=== PATIENT | male | born 1935 | race Caucasian/White ===

== ENCOUNTER → 2018-02-10 14:22 | Outpatient (CLI) | payer MEDICARE, SELFPAY ==
[2018-02-10 17:21] LABS: Albumin, Serum 3.6 g/dL (3.2-5.0); BUN 19 mg/dL (7-18); Calcium,Total 9.2 mg/dL (8.5-10.1); Chloride 100 mmol/L (98-107); Creatinine, Serum 1.27 mg/dL (0.70-1.30); EST Glomerular Filtration Rate 58 mL/min (>60); Est Glom Filt Rate - Afr Amer 70 mL/min (>60); Glucose 89 mg/dL (74-106); Phosphorus 3.6 mg/dL (2.5-4.9); Potassium 4.7 mmol/L (3.5-5.1); Sodium Level 133 mmol/L (136-145)
== END ==
PROVIDERS: Family Provider Family Medicine Geriatric Medicine; PCP Family Medicine Geriatric Medicine; Visit Provider Internal Medicine Nephrology
DX: N18.3 Chronic kidney disease, stage 3 (moderate) (principal)
CPT/HCPCS: 36415; 80069

== ENCOUNTER → 2018-03-14 13:07 | Outpatient (CLI) | payer MEDICARE, SELFPAY ==
[2018-03-14 15:13] LABS: Albumin, Serum 3.5 g/dL (3.2-5.0); BUN 20 mg/dL (7-18); BUN/Creat Ratio 15.5 RATIO (10-20); Calcium,Total 8.8 mg/dL (8.5-10.1); Chloride 103 mmol/L (98-107); Creatinine, Serum 1.29 mg/dL (0.70-1.30); EST Glomerular Filtration Rate 57 mL/min (>60); Est Glom Filt Rate - Afr Amer 69 mL/min (>60); Glucose 90 mg/dL (74-106); Phosphorus 3.5 mg/dL (2.5-4.9); Potassium 4.2 mmol/L (3.5-5.1); Sodium Level 138 mmol/L (136-145)
== END ==
PROVIDERS: Family Provider Family Medicine Geriatric Medicine; PCP Family Medicine Geriatric Medicine; Visit Provider Internal Medicine Nephrology
DX: N18.3 Chronic kidney disease, stage 3 (moderate) (principal)
CPT/HCPCS: 36415; 80069

== ENCOUNTER → 2018-03-23 13:27 | Outpatient (CLI) | payer MEDICARE, SELFPAY ==
[2018-03-23 17:17] LABS: PTHIN 60.4 pg/mL (18.4-80.1)
== END ==
PROVIDERS: Family Provider Family Medicine Geriatric Medicine; PCP Family Medicine Geriatric Medicine; Visit Provider Internal Medicine Nephrology
DX: N17.9 Acute kidney failure, unspecified (principal)
CPT/HCPCS: 36415; 83970

== ENCOUNTER 2018-07-27 15:00 | Outpatient (RCR) | payer MEDICARE, SELFPAY ==
--- NOTE | 2018-07-05 11:26 | HP.OTEVAL_ITS ---
Patient's Visit Information MARY COLÓN SR is a 82 year old M, referred to Occupational Therapy by Fabby Moore, IMAN-C, with a diagnosis of primary osteoarthritis involving multiple joints-. Date of Evaluation: 06/30/18 Occupational Therapist: Rosenda Robertson, PATT/Mary Kate, CHT - Subjective Subjective: This 82 year old male was seen for initial OT eval with Dx of primary osteoarthritis involving multiple joints - pt states his hands do become stiff and sore and it makes it difficlut to straighten his MF on both hands. Pt would like to know what he can do to improve his hand function for ADLs and IADLs. - ADLs Dressing: Pants, Shoes, Necklace Fasteners: Tie shoes, Zippers, Snaps, Catron Eating: Use silverware Miscellaneous: Hold change, Take things out of wallet, Shuffle cards, Use hand tools Comments: put hands in pocket - Pain right MF 0 Pain Intensity Range: 5 Left MF 0 Pain Intensity Range: 0 - ROM MP: right MF PIP: right MF -25/90 left -30/85 DIP: right MF 0/40 left 0/65 - Strength Glass Presser: right 30# left 32# Lateral Pinch: right 12# left 14# Tripod Pinch: right 12# left 10# - Sensation Sensation Comments: denies - Hand/Wrist Evaluation Total Score of Pain & Functional Sections: 41 - Goals Goal:: pt will demo a incrase in PIP ext of bilateral MF by 15 degrees to increase pts ind placing hands in pockets or donning gloves by d/c Goal:: pain no greater than 1/10 with use of bilateral hands for ADLS. Goal:: pt will demo understanding of joint protection and ad. eq. for ADLS and IADLS - Rehabilitation General Assessment: pt demo with limited bilateral MF PIP ext- this is preventing pt from donning gloves and Ind. use with IADLs and home mtg tasks. Pt would benefit from skilled OT services 2x week for 4 weeks to challenge pts ROM and return pt to PLOF. Therapist will expore orthosis use, modalities, AROM, PROM and PRE as well as ed. pt on ad. eq. and joint protection. Pt demo understanding and agrees to POC. Rehabilitation Potential: Good - Anticipated Interventions Anticipated Interventions: Strengthening, Triggerpoint Release, Modalities, Orthoses, Joint Protection/Energy Conservation, Ergonomic Education - Visit Plan Frequency: 1x/Week Duration: 3 Weeks TEXT: Thank you for the opportunity to evaluate your patient. For Medicare and Medicare HMO plans, please review the plan of care and approve it. It will need to be FAXED BACK to us at [phone] for Medicare purposes. Please let me know if there are questions or concerns regarding this plan of care. Physician Signature: Date:
--- NOTE | 2018-07-27 15:16 | HP.OTDCSUM ---
HP - OT D/C Summary It has been my pleasure to treat MARY COLÓN SR under orders from Fabby Moore, IMAN-C, for the diagnosis of primary osteoarthritis involving multiple joints- for a total of 3 visit(s). Please see the following information for a summary of their discharge status. - Objective Objective/Function: pt demo a reduction in PIP ext lag to -20 from -25, pt gained 5*. left PIP -15, inital was -30* pt made gains- - Goals Patient Goals: Regain Mobility, Decrease Pain, Decrease Swelling/Stiffness, Increase ROM Goal:: pt will demo a incrase in PIP ext of bilateral MF by 15 degrees to increase pts ind placing hands in pockets or donning gloves by d/c Goal:: pain no greater than 1/10 with use of bilateral hands for ADLS. Goal:: pt will demo understanding of joint protection and ad. eq. for ADLS and IADLS - Plan Plan: D/C with HEP - D/C Information Discharge Comments: pt demo small gains in ROM, but states better use of his hands for ADLs and IADLs. pt ed. to ont with use of orthosis to prevent further ext. lag. pt demo understanding of HEP and stretches. pt d/c at this time with HEP. If there are questions or concerns regarding this patient's occupational therapy, please fell free to call me at [phone]. Thank you for the referral of this patient. Sincerely, Rosenda Robertson, OTR/L, CHT
== END 2018-07-27 19:00 | disposition home or self-care (01) ==
LOC: OT 15:00
PROVIDERS: Family Provider Family Medicine; PCP Family Medicine; Referring Provider Nurse Practitioner Primary Care; Visit Provider Nurse Practitioner Primary Care
DX: M15.0 Primary generalized (osteo)arthritis (principal)
CPT/HCPCS: 97140; 97166; 97530; 97760

== ENCOUNTER → 2022-01-23 | Outpatient (CLI) | payer MEDICARE, SELFPAY ==
[2022-01-23 15:05] LABS: Hematocrit 35.5 % (40-54); Hemoglobin 11.9 g/dL (13.0-16.5); Mean Corp Hgb Conc 33.5 g/dL (32-36); Mean Corpuscular Hgb 34.8 pg (27.0-32.0); Mean Corpuscular Volume 103.8 fL (80-94); Mean Platelet Vol. 10.9 fl (6.2-12.0); Platelet Count 268 K/mm3 (150-450); RBC Distribution Width CV 13.5 % (11.6-14.6); Red Blood Count 3.42 M/mm3 (4.6-6.2); White Blood Count 5.9 K/mm3 (4.4-11.0)
== END | disposition home or self-care (01) ==
LOC: BIMLAB 13:15
PROVIDERS: PCP Family Medicine; Referring Provider Nurse Practitioner Primary Care; Visit Provider Nurse Practitioner Primary Care
DX: D64.9 Anemia, unspecified (principal)
CPT/HCPCS: 36415; 85027

== ENCOUNTER 2022-02-02 15:04 | Emergency (ER) | payer MEDICARE, SELFPAY ==
[2022-02-02 15:05] VITALS: BP 118/60; PULSE 60; RESP 14; TEMP 36; O2SAT 98; BMI 27.3
[2022-02-02 15:44] VITALS: TEMP 36.8; O2SAT 98
--- NOTE | 2022-02-02 15:58 | RAD_ITS ---
STUDY: X-RAY - RIGHT SHOULDER REASON FOR EXAM: Male, 86 years old. Trauma TECHNIQUE: 2 view(s) of the shoulder. COMPARISON: None. FINDINGS: Normal glenohumeral articulation. Normal acromioclavicular joint. Normal acromion. Acute nondisplaced oblique fracture of the distal right clavicle just proximal to the chronic medical joint. Normal humeral head and visualized proximal humerus. The soft tissue structures are unremarkable. Normal visualized pulmonary apex. RAD/Shoulder min 2 Views IMPRESSION: Acute nondisplaced oblique fracture of the distal right clavicle just proximal to the acromioclavicular joint. Electronically Signed: Osvaldo Kern MD at 16:45 EDT ,
--- NOTE | 2022-02-02 16:00 | EDS_ITS ---
HPI History of Present Illness Chief Complaint: Fall Narrative Narrative: 86-year-old male presents status post fall with injury to his right shoulder/clavicle. He is right-hand dominant. He states that he was measuring stairs to build a ramp for his 's wheelchair, and he stepped and tripped and fell onto concrete onto his right shoulder. He denies hitting his head or loss of consciousness. He sustained an abrasion to the lateral aspect of his right knee. He was able to get up and ambulate afterwards. He is unsure of his last tetanus immunization. His main concern is that he has pain in his right shoulder and clavicular area that is worse with movement. He denies other injury. [facility] Medical History BPH (benign prostatic hyperplasia) GERD (gastroesophageal reflux disease) Hypertension Restless legs syndrome Home Medications calcium carbonate 600 mg-vitamin D3 10 mcg (400 unit) tablet 1 ea PO DAILY 07/02/15 [History Last Taken Unknown] gabapentin 300 mg capsule 900 mg PO QHS 07/02/15 [History Last Taken Unknown] lisinopril 40 mg tablet 40 mg PO DAILY 07/02/15 [History Last Taken 07/08/15 05:00] multivitamin 1 ea PO DAILY 07/02/15 [History Last Taken Unknown] omeprazole 20 mg capsule,delayed release 20 mg PO BID 07/02/15 [History Last Taken 07/08/15 05:00] finasteride 5 mg tablet 5 mg PO QDAY 05/17/17 [History Last Taken Unknown] hydroxyzine HCl 50 mg tablet 50 mg PO ONCE 05/17/17 [History Last Taken Unknown] naproxen 500 mg tablet 500 mg PO Q12H 05/17/17 [History Last Taken Unknown] terazosin 2 mg capsule 5 mg PO QHS 05/17/17 [History Last Taken Unknown] Allergy/AdvReac Type Severity Reaction Status Date / Time Penicillins Allergy Rash Verified 02/02/22 16:55 Family History Mother Cirrhosis of liver Surgical History H/O hernia repair Hx of cholecystectomy S/P right rotator cuff repair Unspecified nasal polyp Social History Smoking Status: Never smoker how long ago did patient quit smokin years ago ROS ROS ED ROS Narrative Constitutional: No fever, no chills. HEENT: No sore throat. No neck pain. No loss of vision. No rhinorrhea. Cardiovascular: No chest pain. No palpitations. No pedal edema. Respiratory: No cough, no shortness of breath. Abdominal: No abdominal pain. No nausea. No vomiting. Genitourinary: No dysuria. No hematuria. Musculoskeletal: No myalgias. Right shoulder and clavicle pain. Worse with movement. Neurologic: No headaches. No dizziness. No lightheadedness. Skin: No rash. No change in color. Psychiatric: No depression. No anxiety. EXAM Physical Exam Narrative Exam Narrative: Afebrile. Vital signs noted. HEENT: Normocephalic. Atraumatic. PERRL, EOMI. Neck soft and supple. No point tenderness or step off. Cardiovascular: Regular rate and rhythm. No murmurs, rubs, or gallops appreciated. Respiratory: No tachypnea. Lungs clear to auscultation bilaterally. Gastrointestinal: Abdomen soft, nontender, with normoactive bowel sounds. No rebound or guarding. Neurological: Awake. Alert. Nonfocal, nonlateralizing. Skin: No rash. Normal color. No pallor. Positive abrasion right lateral knee. No bony tenderness, flexion extension mechanism of right knee intact. Musculoskeletal: No pedal edema. Right upper extremity in sling. Diffuse tenderness to palpation as right shoulder/proximal humerus and right distal clavicle. No crepitance. Neurovascularly intact distally. No tenderness at elbow and below. Palpable radial pulse. Const Vital Signs: 02/02/22 15:05 02/02/22 15:44 Temperature 96.8 F L 98.2 F Temperature Source Temporal Pulse Rate 60 Respiratory Rate 14 Respiratory Effort Normal Non-Labored Respiratory Depth Normal Respiratory Pattern Normal Blood Pressure 118/60 Blood Pressure Mean 79 Pulse Ox 98 98 Oxygen Delivery Method Room Air Room Air MDM MDM MDM Narrative Medical decision making narrative: Patient administered a [place] tablet for analgesia. X-rays were obtained of the right clavicle and right shoulder. He was given a Boostrix tetanus diphtheria update. His abrasion was cleansed and dressed. X-rays of the clavicle and shoulder interpreted by myself show no evidence of humeral fracture but there is a distal clavicular fracture with minimal displacement near the acromion. He will be given a new sling and swath and referred to orthopedics on-call, Dr. Horace Ling. He states he preferred to take Tylenol [id number] for analgesia. I feel he can be discharged safely home with follow-up. Return instructions were reviewed. Disposition is discharged home in stable condition. Discharge Plan Triage Chief Complaint: Fall ED Provider: Bradley Uriarte Dx/Rx/DC Orders Clinical Impression: Fall, Fx clavicle, acrom end-closed Instructions: ED Fracture, Clavicle, ED Fall Prevention Prescriptions: No Action hydroxyzine HCl 50 mg tablet 50 mg PO ONCE naproxen 500 mg tablet 500 mg PO Q12H finasteride 5 mg tablet 5 mg PO QDAY multivitamin 1 EACH tablet 1 ea PO DAILY gabapentin 300 MG capsule 900 mg PO QHS omeprazole 20 MG capsule 20 mg PO BID lisinopril 40 MG tablet 40 mg PO DAILY calcium carbonate-vitamin D3 1 EACH tablet 1 ea PO DAILY terazosin 2 MG capsule 5 mg PO QHS Primary Care Provider: Jaime Johnson Referrals: Jaime Johnson MD [Primary Care Provider] - Priyank Ling DO [Med Staff - Active Staff] - 1 Week Activity Restrictions/Additional Instructions: Take Tylenol as needed for pain. Keep arm in sling until cleared by orthopedics. Disposition Disposition: Home, Self Care
[2022-02-02] MEDS: HYDROcodone Bitartrate/Apap 5/325 Tablet PO (16:17)
[2022-02-02] MEDS: Diphth,Pertuss(Acell),Tet Vac 0.5 ML Vial IM (16:18)
--- NOTE | 2022-02-02 16:23 | RAD_ITS ---
STUDY: X-RAY - RIGHT CLAVICLE REASON FOR EXAM: Male, 86 years old. trauma TECHNIQUE: 2 view(s) of the clavicle. COMPARISON: None. FINDINGS: Acute slightly displaced oblique fracture of the distal right clavicle just proximal to the acromial navicular joint. Normal acromioclavicular articulation. Normal visualized sternoclavicular articulation. Normal visualized pulmonary apex. RAD/Clavicle IMPRESSION: Acute slightly displaced fracture of the distal right clavicle just proximal to the acromioclavicular joint. Electronically Signed: Osvaldo Kern MD at 16:44 EDT ,
[2022-02-02 17:48] VITALS: BP 154/64; PULSE 57; RESP 16; TEMP 36.4; O2SAT 99
== END 2022-02-02 18:58 | disposition home or self-care (01) ==
PROVIDERS: Emergency Provider Emergency Medicine; PCP Family Medicine; Visit Provider Emergency Medicine
DX: S42.034A Nondisplaced fracture of lateral end of right clavicle, initial encounter for closed fracture (principal); I10 Essential (primary) hypertension; S80.211A Abrasion, right knee, initial encounter; Z79.899 Other long term (current) drug therapy; Z23 Encounter for immunization; W17.89XA Other fall from one level to another, initial encounter
CPT/HCPCS: 73000; 73030; 90715; 99283

== ENCOUNTER → 2022-07-10 | Outpatient (CLI) | payer MEDICARE, SELFPAY ==
[2022-07-10 17:44] LABS: Absolute Lymphocyte Count 1.93 X10^3/uL (0.83-4.51); Absolute Neutrophil Count 4.5 X10^3/uL (2.0-7.7); Basophil# 0.04 X10^3/uL; Basophil% 0.5 % (0-1); Eosinophil# 0.45 X10^3/uL; Eosinophils% 6.1 % (0-5); Hematocrit 35.9 % (40-54); Hemoglobin 11.8 g/dL (13.0-16.5); Lymphocyte # 1.93 X10^3/ul (0.83-4.51); Mean Corp Hgb Conc 32.9 g/dL (32-36); Mean Corpuscular Hgb 33.1 pg (27.0-32.0); Mean Corpuscular Volume 100.6 fL (80-94); Mean Platelet Vol. 10.4 fl (6.2-12.0); Monocyte# 0.55 X10^3/uL; Monocyte% 7.4 % (0-10); NRBC Flagged by Analyzer 0 % (0-5); Neutrophil # 4.45 X10^3/uL (2.7-7.7); Neutrophil % 59.9 % (47-70); Platelet Count 217 K/mm3 (150-450); RBC Distribution Width CV 14.5 % (11.6-14.6); RBC Distribution Width SD 54.2 fl (35.1-43.9); Red Blood Count 3.57 M/mm3 (4.6-6.2); White Blood Count 7.4 K/mm3 (4.4-11.0)
[2022-07-10 17:59] LABS: International Normalized Ratio 1.1
[2022-07-10 18:00] LABS: Partial Thromboplast Time 33.1 Seconds (24.1-36.2)
[2022-07-10 18:14] LABS: ALB/GLOB Ratio 0.8 RATIO (0.9-2.4); AST(SGOT) 30 U/L (15-37); Alanine Aminotransfer ALT/SGPT 55 U/L (16-61); Albumin, Serum 3.5 g/dL (3.2-5.0); Alkaline Phosphatase 144 U/L (45-117); Anion Gap 8 (5-15); BUN 50 mg/dL (7-18); BUN/Creat Ratio 32.1 RATIO (10-20); Chloride 102 mmol/L (98-107); Creatinine, Serum 1.56 mg/dL (0.70-1.30); EST Glomerular Filtration Rate 45 mL/min (>60); Est Glom Filt Rate - Afr Amer 55 mL/min (>60); Globulin 4.5 g/dL (2.2-4.2); Glucose 88 mg/dL (74-106); Potassium 4.4 mmol/L (3.5-5.1); Sodium Level 135 mmol/L (136-145)
== END | disposition home or self-care (01) ==
LOC: MTLAB 15:00
PROVIDERS: PCP Family Medicine; Referring Provider Dermatology Pediatric Dermatology; Visit Provider Dermatology Pediatric Dermatology
DX: D69.2 Other nonthrombocytopenic purpura (principal)
CPT/HCPCS: 36415; 80053; 85025; 85610; 85730

== ENCOUNTER 2022-12-24 13:27 | Emergency (ER) | payer OTHER, MEDICARE, SELFPAY ==
[2022-12-24 13:28] VITALS: BP 114/69; PULSE 101; RESP 18; TEMP 36.7; O2SAT 97
--- NOTE | 2022-12-24 13:50 | CT_ITS ---
INDICATION: Chest and rib pain after fall EXAMINATION: CT CHEST WITHOUT CONTRAST - CT Chest W/O Contrast Injection TECHNIQUE: Helically acquired images were obtained of the chest. A radiation dose optimization technique was used for this scan. IV Contrast dosage and agent: None. COMPARISON: None. FINDINGS: LUNGS, PLEURA AND LARGE AIRWAYS: Lung windows show chronic interstitial changes in both lung malave with dependent atelectasis. There is no organized infiltrate, effusion, or suspicious noncalcified mass or nodule. No pneumothorax. THYROID: No thyroid lesions. HEART AND PERICARDIUM: Heart size is normal. No pericardial effusion. CORONARY ARTERIES: Coronary artery calcification is seen. VESSELS: Thoracic aorta is not dilated. MEDIASTINUM AND ZHANG: No suspicious mediastinal or hilar adenopathy. Esophagus is unremarkable. No hiatal hernia. UPPER ABDOMEN: No acute pathology. BONES: No suspicious lytic or blastic abnormality. Bony structures show degenerative change. No demonstrated rib fracture, pleural thickening or pneumothorax CT/Chest without Contrast IMPRESSION: Chronic interstitial changes, no superimposed acute pulmonary process, no CT evidence of acute traumatic abnormality Electronically Signed: Chemo Monge MD at 14:53 EDT ,
--- NOTE | 2022-12-24 13:50 | CT_ITS ---
STUDY: CT BRAIN WITHOUT CONTRAST REASON FOR EXAM: Male, 87 years old. Severe headache RADIATION DOSAGE (If Supplied By Facility): CTDIvol = ( 47.06 ) mGy, DLP = ( 837.39 ) mGycm TECHNIQUE: Transaxial CT imaging of the brain was performed without administration of intravenous contrast material. Individualized dose optimization techniques were used for this CT. COMPARISON: No relevant priors. FINDINGS: CT evidence of hyperdense acute parenchymal hemorrhage within the left thalamus seen on axial image 17 and coronal recon 48. There is no associated edema or mass effect. Normal soft tissue structures. Normal calvarium. There is mild cerebral atrophy with widening of the extra-axial spaces and ventricular dilatation. There are areas of decreased attenuation within the white matter tracts of the supratentorial brain, consistent with microvascular disease changes. Normal basal ganglia and thalami. Normal brainstem. There is mild cerebellar atrophy. Incidental note is made of a cavum septum pellucidum. There is no intracranial hemorrhage. There are no findings of an acute ischemic infarction. Normal visualized paranasal sinuses. CT/Brain/Head without Contrast IMPRESSION: Acute parenchymal hemorrhage in the left thalamus without mass effect or midline shift. Age consistent senescent changes elsewhere. Normal ventricles and cisterns for patient''s age. N.B. : The above Results were Read Back by Chemo Monge MD to BEATRIS Almendarez, and understanding confirmed on 12/24/2022 14:46:03 (ET). Electronically Signed: Chemo Monge MD at 14:47 EDT ,
--- NOTE | 2022-12-24 13:50 | CT_ITS ---
STUDY: CT CERVICAL SPINE WITHOUT CONTRAST REASON FOR EXAM: Male, 87 years old. Headache and neck pain RADIATION DOSAGE (If Supplied By Facility): CTDIvol = ( 17.75 ) mGy, DLP = ( 339.77 ) mGycm TECHNIQUE: High resolution transaxial imaging was performed without contrast material. Sagittal and coronal images were reconstructed. Individualized dose optimization techniques were used for this CT. COMPARISON: None FINDINGS: Normal craniovertebral junction. There are degenerative changes of the anterior atlantoaxial articulation. Normal odontoid process. There is straightening of the normal cervical lordosis. Bones are diffusely demineralized. C2-3: Normal endplates. Disc space narrowing without central canal stenosis or foraminal narrowing. C3-4: Normal endplates. Disc space narrowing without central canal stenosis, bilateral foraminal narrowing due to facet joint hypertrophy. C4-5: Sclerotic endplate changes with broad-based central subligamentous disc bulge and uncovertebral spurs. No central canal stenosis, bilateral foraminal narrowing due to spur formation and facet joint hypertrophy. C5-6: Sclerotic endplate changes with prominent uncovertebral spurs. No central canal stenosis, bilateral foraminal narrowing due to spur formation and facet joint hypertrophy. C6-7: Normal endplates. Disc space narrowing with broad-based central disc bulge. No central canal stenosis, bilateral foraminal narrowing due to facet joint hypertrophy. C7-T1: Sclerotic endplate changes. Disc space narrowing with posterior uncovertebral spurs. No central canal stenosis, bilateral foraminal narrowing due to facet joint hypertrophy. Soft tissues show dense calcifications in the carotid artery bulbs. Thyroid gland is unremarkable lung apices are clear. CT/Spine Cervical without Contras IMPRESSION: Multilevel degenerative changes, as described above. No acute abnormalities Electronically Signed: Chemo Monge MD at 14:50 EDT ,
--- NOTE | 2022-12-24 13:51 | EX.ED.DYSGE1 ---
HPI <BEATRIS Almendarez - Last Filed: 12/24/22 15:24> History of Present Illness Chief Complaint: Fall Narrative Narrative: 87-year-old male states he felt nauseated yesterday and walked into the bathroom and was leaning down to the toilet bowl when he lost his balance and fell. He struck his head and chest against the commode. Denies LOC. No blood thinners. He states the nausea passed and he didn't actually vomit. Since then he has had pain in his midsternal and left rib cage. No difficulty breathing. No nausea or vomiting today. He denies any prodromal chest pain or shortness of breath. PFSH <BEATRIS Almendarez - Last Filed: 12/24/22 15:24> [facility] Medical History BPH (benign prostatic hyperplasia) GERD (gastroesophageal reflux disease) Hypertension Restless legs syndrome Home Medications calcium carbonate 600 mg-vitamin D3 10 mcg (400 unit) tablet 1 ea PO DAILY 07/02/15 [History Last Taken Unknown] gabapentin 300 mg capsule 900 mg PO QHS 07/02/15 [History Last Taken Unknown] lisinopril 40 mg tablet 40 mg PO DAILY 07/02/15 [History Last Taken 07/08/15 05:00] multivitamin 1 ea PO DAILY 07/02/15 [History Last Taken Unknown] omeprazole 20 mg capsule,delayed release 20 mg PO BID 07/02/15 [History Last Taken 07/08/15 05:00] finasteride 5 mg tablet 5 mg PO QDAY 05/17/17 [History Last Taken Unknown] hydroxyzine HCl 50 mg tablet 50 mg PO ONCE 05/17/17 [History Last Taken Unknown] naproxen 500 mg tablet 500 mg PO Q12H 05/17/17 [History Last Taken Unknown] terazosin 2 mg capsule 5 mg PO QHS 05/17/17 [History Last Taken Unknown] Allergy/AdvReac Type Severity Reaction Status Date / Time Penicillins Allergy Rash Verified 12/24/22 13:28 Family History Mother Cirrhosis of liver Surgical History H/O hernia repair Hx of cholecystectomy S/P right rotator cuff repair Unspecified nasal polyp Social History Smoking Status: Never smoker how long ago did patient quit smokin years ago ROS <BEATRIS Almendarez - Last Filed: 12/24/22 15:24> ROS ED ROS Narrative Constitutional: Negative for fever, chills, malaise. CVS: Negative for palpitations, chest pain, syncope. Respiratory: Negative for shortness of breath, cough. GI: Negative for abdominal pain, vomiting. Neuro: Negative for headache, motor/sensory dysfunction. Skin: Negative for wound. Musc: Negative for joint pain, swelling, trauma. EXAM <BEATRIS Almendarez - Last Filed: 12/24/22 15:24> Physical Exam Narrative Exam Narrative: CONST: Patient sitting in no acute distress. EYES: Normal inspection. PERRLA, EOMI. Head: Head normocephalic atraumatic, no raccoon eyes or garcia sign, no nasal septal hematoma, no CSF otorrhea or rhinorrhea. NECK: Normal inspection. No midline spinal tenderness, no step off or crepitus. RESP: No respiratory distress, CTAB. Bruising and tenderness over upper sternal area, also tender over left upper anterior ribs in the pectoralis region with no deformity or crepitus. CVS: Regular rate and rhythm, no murmur, no gallop. ABD: Soft and nontender, no guarding or rebound, nondistended, no hepatosplenomegaly. SKIN: Color normal, no rash, warm, dry, intact. EXTREMITIES: Normal appearance, no tenderness, 2+ radial and PT pulses. NEURO: Oriented x4. PSYCH: Normal affect. Const Vital Signs: 12/24/22 13:28 Temperature 98.0 F Temperature Source Temporal Pulse Rate 101 H Respiratory Rate 18 Blood Pressure 114/69 Blood Pressure Mean 84 Pulse Ox 97 Oxygen Delivery Method Room Air <Dr. Jt Ramsay DO - Last Filed: 12/24/22 15:52> Physical Exam Const Vital Signs: 12/24/22 13:28 Temperature 98.0 F Temperature Source Temporal Pulse Rate 101 H Respiratory Rate 18 Blood Pressure 114/69 Blood Pressure Mean 84 Pulse Ox 97 Oxygen Delivery Method Room Air MDM <BEATRIS Almendarez - Last Filed: 12/24/22 15:24> MDM MDM Narrative Medical decision making narrative: History gathered from: Patient and his daughter Patient had a mechanical fall yesterday striking his head and chest on the toilet. No LOC and no blood thinners. He is awake and alert with stable vital signs. He has small amount of bruising on his forehead. Also a small bruise along his right jaw but he states this is from a recent tooth extraction. He has no facial bone tenderness or deformity. Able to fully open and close his jaw. No signs of basilar skull fracture. No spinal tenderness. He is tender over the anterior chest wall with bruising. Normal heart and lung sounds. Exam otherwise negative. With head injury and significant rib tenderness I ordered CTs of the brain, C-spine, and chest. CT scan of the brain shows left thalamic parenchymal hemorrhage without mass effect or midline shift. Cervical spine and chest scans negative for traumatic injuries. Patient is neurologically intact but requires transfer to [facility] for evaluation. Case was discussed and patient accepted by ED physician Dr. Jose Handy. Differential: Closed head injury, skull fracture, intracranial bleed, chest wall contusion versus rib fracture 35 minutes of critical care time and evaluation and treatment of patient, discussion and planning, discussion with consultants Radiography Diagnostic Testing: Clinical Impression(s) from Imaging Studies Brain CT 12/24/22 13:50 IMPRESSION: Acute parenchymal hemorrhage in the left thalamus without mass effect or midline shift. Age consistent senescent changes elsewhere. Normal ventricles and cisterns for patient''s age. N.B. : The above Results were Read Back by Chemo Monge MD to BEATRIS Almendarez, and understanding confirmed on 12/24/2022 14:46:03 (ET). Electronically Signed: Chemo Monge MD at 14:47 EDT , ADDENDUM: 12/24/22 1454 IMPRESSION: Acute parenchymal hemorrhage in the left thalamus without mass effect or midline shift. Age consistent senescent changes elsewhere. Normal ventricles and cisterns for patient''s age. N.B. : The above Results were Read Back by Chemo Monge MD to BEATRIS Almendarez, and understanding confirmed on 12/24/2022 14:46:03 (ET). Electronically Signed: Chemo Monge MD at 14:47 EDT , Cervical Spine CT 12/24/22 13:50 IMPRESSION: Multilevel degenerative changes, as described above. No acute abnormalities Electronically Signed: Chemo Monge MD at 14:50 EDT , Chest CT 12/24/22 13:50 IMPRESSION: Chronic interstitial changes, no superimposed acute pulmonary process, no CT evidence of acute traumatic abnormality Electronically Signed: Chemo Monge MD at 14:53 EDT , EKG Initial EKG: Attestation: I personally reviewed and interpreted this EKG as follows: Comments: ED attending interpretation is sinus rhythm with sinus arrhythmia with first-degree AV block, no ischemic changes, 74 bpm <Dr. Jt Ramsay, DO - Last Filed: 12/24/22 15:52> [facility] MDM Narrative Medical decision making narrative: History gathered from: Patient and his daughter Patient had a mechanical fall yesterday striking his head and chest on the toilet. No LOC and no blood thinners. He is awake and alert with stable vital signs. He has small amount of bruising on his forehead. Also a small bruise along his right jaw but he states this is from a recent tooth extraction. He has no facial bone tenderness or deformity. Able to fully open and close his jaw. No signs of basilar skull fracture. No spinal tenderness. He is tender over the anterior chest wall with bruising. Normal heart and lung sounds. Exam otherwise negative. With head injury and significant rib tenderness I ordered CTs of the brain, C-spine, and chest. CT scan of the brain shows left thalamic parenchymal hemorrhage without mass effect or midline shift. Cervical spine and chest scans negative for traumatic injuries. Patient is neurologically intact but requires transfer to [facility] for evaluation. Case was discussed and patient accepted by ED physician Dr. Jose Handy. Differential: Closed head injury, skull fracture, intracranial bleed, chest wall contusion versus rib fracture 35 minutes of critical care time and evaluation and treatment of patient, discussion and planning, discussion with consultants Attending note: Patient seen and evaluated with b operator. I perform my own [id number] evaluation. I agree with the plan of work-up. Mechanical fall yesterday when bending over the commode. He bumped his chest and hit his head on the commode he did not lose any consciousness. He is not on any blood thinners. Denies any nausea or vomiting. States primary pain is in his chest region. Exam GCS 15 there is scattered contusions at the forehead and face, scalp contusion across the upper sternum with tenderness at the sternum. Full range of motion all 4 extremities. No back spine tenderness. EKG obtained sinus arrhythmia. Trauma scans head neck and chest obtained, reviewed and per radiology parenchymal bleed left thalamus region. No subdural or subarachnoid hemorrhage. Blood pressure stable. Patient updated on the findings, due to the intracranial hemorrhage, discussed transfer. Discussed with [facility] ED physician Dr. Handy who accepted the transfer. Laboratory studies were obtained. Radiography Diagnostic Testing: Clinical Impression(s) from Imaging Studies Brain CT 12/24/22 13:50 IMPRESSION: Acute parenchymal hemorrhage in the left thalamus without mass effect or midline shift. Age consistent senescent changes elsewhere. Normal ventricles and cisterns for patient''s age. N.B. : The above Results were Read Back by Chemo Monge MD to BEATRIS Almendarez, and understanding confirmed on 12/24/2022 14:46:03 (ET). Electronically Signed: Chemo Monge MD at 14:47 EDT , ADDENDUM: 12/24/22 1454 IMPRESSION: Acute parenchymal hemorrhage in the left thalamus without mass effect or midline shift. Age consistent senescent changes elsewhere. Normal ventricles and cisterns for patient''s age. N.B. : The above Results were Read Back by Chemo Monge MD to BEATRIS Almendarez, and understanding confirmed on 12/24/2022 14:46:03 (ET). Electronically Signed: Chemo Monge MD at 14:47 EDT , Cervical Spine CT 12/24/22 13:50 IMPRESSION: Multilevel degenerative changes, as described above. No acute abnormalities Electronically Signed: Chemo Monge MD at 14:50 EDT , Chest CT 12/24/22 13:50 IMPRESSION: Chronic interstitial changes, no superimposed acute pulmonary process, no CT evidence of acute traumatic abnormality Electronically Signed: Chemo Monge MD at 14:53 EDT , <Dr. Jt Ramsay, DO - Last Filed: 12/24/22 15:52> Critical Care Time Critical Care Time: Yes Critical care time (excluding procedures): 30-74 minutes, Discussing w/Patient &/or Family/Dairy Technician, Discussing w/Consultants, Arranging Admission or Transfer, Performing Direct Patient Care at Bedside and - (35 minutes) Discharge Plan Triage Chief Complaint: Fall ED Midlevel Provider: Jaja Agrawal ED Provider: Jt Ramsay Dx/Rx/DC Orders Clinical Impression: Chest wall contusion, Intracranial hemorrhage, Fall Prescriptions: No Action hydroxyzine HCl 50 mg tablet 50 mg PO ONCE naproxen 500 mg tablet 500 mg PO Q12H finasteride 5 mg tablet 5 mg PO QDAY multivitamin 1 EACH tablet 1 ea PO DAILY gabapentin 300 MG capsule 900 mg PO QHS omeprazole 20 MG capsule 20 mg PO BID lisinopril 40 MG tablet 40 mg PO DAILY calcium carbonate-vitamin D3 1 EACH tablet 1 ea PO DAILY terazosin 2 MG capsule 5 mg PO QHS Primary Care Provider: Jaime Johnson Referrals: aJime Johnson MD [Primary Care Provider] - Disposition Disposition: DC/Tx to Another Type of HCF
[2022-12-24 14:08] VITALS: BMI 26.6
[2022-12-24] MEDS: Acetaminophen 500 MG Tablet 1000 MG PO (14:33)
[2022-12-24] MEDS: Lidocaine 5% Patch 1 PATCH TOPICAL (14:34)
--- NOTE | 2022-12-24 15:08 | NURSING ---
CALLED [facility]UDY RODRIGUEZ FOR TRANSFER.
[2022-12-24 15:49] VITALS: PULSE 104; RESP 20; O2SAT 97
[2022-12-24 16:01] LABS: Absolute Lymphocyte Count 1.51 X10^3/uL (0.83-4.51); Absolute Neutrophil Count 5.9 X10^3/uL (2.0-7.7); Basophil# 0.05 X10^3/uL; Basophil% 0.6 % (0-1); Eosinophil# 0.11 X10^3/uL; Eosinophils% 1.3 % (0-5); Hematocrit 34.9 % (40-54); Hemoglobin 11.1 g/dL (13.0-16.5); Lymphocyte # 1.51 X10^3/ul (0.83-4.51); Lymphocyte % 18.3 % (19-41); Mean Corp Hgb Conc 31.8 g/dL (32-36); Mean Corpuscular Hgb 32.6 pg (27.0-32.0); Mean Corpuscular Volume 102.6 fL (80-94); Mean Platelet Vol. 9.3 fl (6.2-12.0); Monocyte# 0.66 X10^3/uL; NRBC Flagged by Analyzer 0 % (0-5); Neutrophil # 5.92 X10^3/uL (2.7-7.7); Neutrophil % 71.6 % (47-70); Platelet Count 258 K/mm3 (150-450); RBC Distribution Width CV 13.9 % (11.6-14.6); RBC Distribution Width SD 52.7 fl (35.1-43.9); White Blood Count 8.3 K/mm3 (4.4-11.0)
--- NOTE | 2022-12-24 16:02 | ED.RN ---
Attempted to call report.
[2022-12-24 16:11] LABS: Prothrombin Time (Protime)PT. 13.6 SECONDS (11.7-14.9)
[2022-12-24 16:18] LABS: Anion Gap 8 (5-15); BUN 27 mg/dL (7-18); BUN/Creat Ratio 19.9 RATIO (10-20); Calcium,Total 8.9 mg/dL (8.5-10.1); Chloride 103 mmol/L (98-107); Creatinine, Serum 1.36 mg/dL (0.70-1.30); EST Glomerular Filtration Rate 53 mL/min (>60); Est Glom Filt Rate - Afr Amer 64 mL/min (>60); Estimated Creatinine Clearance 38.42 ml/min; Glucose 100 mg/dL (74-106); Potassium 4.2 mmol/L (3.5-5.1); Sodium Level 134 mmol/L (136-145)
== END 2022-12-24 16:04 | disposition short-term general hospital (02) ==
PROVIDERS: Physician Assistant; Emergency Provider Emergency Medicine; PCP Family Medicine; Visit Provider Emergency Medicine
DX: S06.360A Traumatic hemorrhage of cerebrum, unspecified, without loss of consciousness, initial encounter (principal); S20.212A Contusion of left front wall of thorax, initial encounter; W01.198A Fall on same level from slipping, tripping and stumbling with subsequent striking against other object, initial encounter; I10 Essential (primary) hypertension; Z79.899 Other long term (current) drug therapy; Z87.891 Personal history of nicotine dependence
CPT/HCPCS: 70450; 71250; 72125; 80048; 85025; 85610; 93005; 99284; A4216

== ENCOUNTER 2022-12-28 21:59 | Observation (INO) | payer MEDICARE, SELFPAY ==
[2022-12-28] VITALS (10 sets, daily range): BP systolic 87–125; BP diastolic 52–78; PULSE 62–124; RESP 16–28; TEMP 35.9–36.4; O2SAT 94–97; BMI 25.2
--- NOTE | 2022-12-28 22:15 | EKG12_ITS ---
Test Reason : DYSRHYTHMIA Blood Pressure : / mmHG Vent. Rate : 093 BPM Atrial Rate : 093 BPM P-R Int : 208 ms QRS Dur : 068 ms QT Int : 370 ms P-R-T Axes : 000 039 058 degrees QTc Int : 460 ms Sinus rhythm with marked sinus arrhythmia Otherwise normal ECG Confirmed by EDNA SOUSA, DG ([id number]), newspaper editor managing [place] ([id number]) on 12/30/2022 9:30:52 AM Referred By: ALEXANDER Confirmed By:DG BISHOP MD
--- NOTE | 2022-12-28 22:18 | EDS_ITS ---
HPI History of Present Illness Chief Complaint: Syncope Informant: patient Onset/Context/Timing Onset: Today Current Severity: Mild Maximum Severity: Moderate Narrative Narrative: 87-year-old male history of hypertension on lisinopril. Recently fell at home and had intracranial bleed was just discharged earlier today from [facility]. Tonight he went to the bathroom had dark stool he is on iron. Became lightheaded in the bathroom or fell asleep and fell. Squad was called he was hypotensive and bradycardic on their arrival. He denies any headache, chest pain, shortness of breath or abdominal pain. He has had no vomiting or diarrhea. He has no known cardiac history. Prior similar symptoms: No Recent Illness/Hospitalization: Yes [facility] Medical History BPH (benign prostatic hyperplasia) GERD (gastroesophageal reflux disease) Hypertension Restless legs syndrome Home Medications calcium carbonate 600 mg-vitamin D3 10 mcg (400 unit) tablet 1 ea PO DAILY 07/02/15 [History Last Taken Unknown] gabapentin 300 mg capsule 900 mg PO QHS 07/02/15 [History Last Taken Unknown] lisinopril 40 mg tablet 40 mg PO DAILY 07/02/15 [History Last Taken 07/08/15 05:00] multivitamin 1 ea PO DAILY 07/02/15 [History Last Taken Unknown] omeprazole 20 mg capsule,delayed release 20 mg PO BID 07/02/15 [History Last Taken 07/08/15 05:00] finasteride 5 mg tablet 5 mg PO QDAY 05/17/17 [History Last Taken Unknown] hydroxyzine HCl 50 mg tablet 50 mg PO ONCE 05/17/17 [History Last Taken Unknown] naproxen 500 mg tablet 500 mg PO Q12H 05/17/17 [History Last Taken Unknown] terazosin 2 mg capsule 5 mg PO QHS 05/17/17 [History Last Taken Unknown] Allergy/AdvReac Type Severity Reaction Status Date / Time Penicillins Allergy Rash Verified 12/28/22 22:09 Family History Mother Cirrhosis of liver Surgical History H/O hernia repair Hx of cholecystectomy S/P right rotator cuff repair Unspecified nasal polyp Social History Smoking Status: Never smoker how long ago did patient quit smokin years ago ROS ROS ED ROS Narrative 5 cm denies recent illness. Review of Systems ROS Unobtainable: Denies due to encephalopathy Constitutional Constitutional ED: Denies chills Eyes Eyes: Denies blurry vision ENT ENT ED: Denies ear pain Respiratory/Chest Respiratory/Chest: Denies cough Gastrointestinal Gastrointestinal: Denies abdominal pain Genitourinary Genitourinary ED: Denies dysuria Musculoskeletal Musculoskeletal: Denies arthralgias Integumentary Denies abscess Neurologic Neurologic: Denies headache(s) Psychiatric Psychiatric: Denies anxiety Endocrine Endocrinology: Denies cold intolerance Hematologic/Lymphatic Hematologic/Lymphatic: Reports none Allergic/Immunologic Allergic/Immunologic ED: Denies mouth swelling EXAM Physical Exam Narrative Exam Narrative: 87-year-old male sitting upright in bed. Heart rates in the 70s and 80s but his blood pressure is 87/63. He is afebrile. He does not look septic or toxic. He is awake alert. He is answering questions and following commands. His daughter comes in midway through my exam and history. HEENT exam is pretty dry and light. No traumaor scalp. Neck nontender. Lungs are clear. Heart regular rhythm in the 70s. Chest wall and ribs nontender. Abdomen soft nontender. Moving all 4 extremities. He has stiffness in his right shoulder that is not new. Neurologically he is awake and alert. Answering questions following commands. Const Vital Signs: 12/28/22 22:00 12/28/22 22:07 12/28/22 22:15 Temperature 96.6 F L Temperature Source Temporal Pulse Rate 124 H Respiratory Rate 16 Respiratory Effort Normal Non-Labored Respiratory Pattern Normal Blood Pressure 87/63 L Blood Pressure Mean 71 Pulse Ox 97 Oxygen Delivery Method Room Air 12/28/22 22:38 12/28/22 22:40 12/28/22 22:45 Temperature Temperature Source Pulse Rate 66 67 72 Respiratory Rate 25 H 27 H 19 H Respiratory Effort Respiratory Pattern Blood Pressure 93/74 Blood Pressure Mean 82 Pulse Ox 96 94 Oxygen Delivery Method 12/28/22 22:50 12/28/22 23:00 12/28/22 23:10 Temperature Temperature Source Pulse Rate 76 62 75 Respiratory Rate 16 24 H 22 H Respiratory Effort Respiratory Pattern Blood Pressure 95/52 L Blood Pressure Mean 64 Pulse Ox Oxygen Delivery Method 12/28/22 23:16 12/28/22 23:20 Temperature Temperature Source Pulse Rate 99 92 Respiratory Rate 25 H 28 H Respiratory Effort Respiratory Pattern Blood Pressure 112/69 Blood Pressure Mean 82 Pulse Ox Oxygen Delivery Method Positive well nourished and well developed; Negative for obese, cachectic, contractures or unkempt General Appearance ED: well developed; Negative for unkempt, cachectic, contractures, cyanotic, diaphoretic, NAD or pallor Nutritional Appearance: Negative for cachectic or obese HEENT Reports moist mucous membranes Negative for trauma or tenderness Eyes PERRL and EOMs intact bilaterally General Eye ED: Negative for pale conjunctiva, scleral icterus or other Neck no lymphadenopathy, supple and no JVD General: Negative for tenderness Lymph Lymphatic: Negative for other Chest Wall inspection of chest normal and palpation of chest normal Chest: Negative for other Resp normal respiratory effort and clear to auscultation bilaterally Effort and Inspection: Negative for retractions Auscultation: Negative for rales, rhonchi or wheezes Cardio regular rate, regular rhythm, S1 normal heart sound, S2 normal heart sound and no murmurs Rhythm: Negative for abnormal rhythm GI normal to inspection, nondistended, normoactive bowel sounds, non-tender, non- distended and no masses Inspection: Negative for abdominal distention Auscultation: normoactive bowel sounds Palpation: soft; Negative for tender or guarding Bladder / Kidney Exam: No other Back/Spine no CVA tenderness Extremity normal to inspection Extremity Narrative: Stiffness in his right shoulder. Chronic. General Extremety ED: Negative for edema or tenderness General Extremity: Negative for edema Neuro oriented x3 and CN's II-XII intact bilaterally Sensorium / Orientation: alert; Negative for orientation impaired, lethargic or stuporous Motor Exam: strength 5/5 throughout Psych mental status grossly normal Appearance: Negative for unkempt Attitude: No agitated Mood & Affect: Negative for depressed, anxious or tearful Skin no rashes or lesions noted, no wounds and skin turgor normal General Skin Exam: elasticity normal; Negative for jaundice or pallor Lesions: No lesion noted Rashes: No rashes noted Trauma: Negative for abrasion Wounds: Negative for wounds noted MDM MDM MDM Narrative Medical decision making narrative: 87-year-old male recent discharge for intercranial bleed from [facility]. Rogelio had a syncopal episode at home. When squad arrived he was both bradycardic and hypotensive. He remains hypotensive here. Will undergo a syncope work-up. Treated with IV fluids. Type and screen. Repeat exam at 11:27 PM patient doing well. Blood pressure responded to the IV fluids. He has had a liter in. Clinically he is doing well. I discussed with both he and his daughter at bedside regarding admit him. Some of this may be due to dehydration. He does have dark stool which ought to be hemocculted. However his blood counts 1 from 11 to 13 they are not lower. History & Record Review Discussion w/independent historian: Patient Lab Data Attestation: I reviewed the patient's lab results. Lab results narrative: I willCBC shows a white count of 9. H&H of 13 and 39. Platelets 326. Chemistries show sodium 131. Potassium 3.4. Gap of 8. BUN and creatinine are 29 and 1.9. Glucose 121. Troponin is normal at 18. Labs are consistent with prior labs his hemoglobin is actually went from 11 to today at 13.2 he gets primarily from dehydration which is also consistent with his BUN and creatinine at 29 and 1.9. Prior creatinines were around 1.5. It would also help explain his hypotension. He was given a liter normal saline he is responding currently his blood pressure is 112/69. Labs: Laboratory Results - last 24 hr 12/28/22 22:30 WBC 9.8 RBC 3.95 L Hgb 13.2 Hct 39.0 L MCV 98.7 H MCH 33.4 H MCHC 33.8 D RDW Std Deviation 47.0 H RDW Coeff of Donald 13.1 Plt Count 326 MPV 10.0 Immature Gran % (Auto) 0.400 Neut % (Auto) 75.9 H Lymph % (Auto) 14.1 L [place] % (Auto) 8.3 Eos % (Auto) 1.1 Baso % (Auto) 0.2 Absolute Neuts (auto) 7.4 Absolute Lymphs (auto) 1.38 Nucleated RBC % 0 Sodium 131 L Potassium 3.4 L Chloride 95 L Carbon Dioxide 28.0 Anion Gap 8 BUN 29 H Creatinine 1.91 H Estim Creat Clear Calc 27.36 Est GFR (MDRD) Af Amer 43 L Est GFR (MDRD) Non-Af 36 L BUN/Creatinine Ratio 15.2 Glucose 121 H Lactic Acid 2.5 H* Calcium 9.1 Troponin I High Sens 18 Antibody Screen NEGATIVE Radiography Chest X-Ray - ED: 1 View, Read by ED Physician, Mediastinum, Bony Structures, No Acute Disease and Chronic Changes Diagnostic Testing: Clinical Impression(s) from Imaging Studies Chest X-Ray 12/28/22 22:40 IMPRESSION: Right lower lung atelectasis or infiltrate. Electronically Signed: Nathen Lau MD at 23:10 EDT , Chest x-ray, portable, single view interpreted by myself shows no acute abnormality. Also read by the radiologist who agrees. Rhythm Strip Rhythm Strip: Sinus Rhythm Rate: 93 Ectopy: None EKG Initial EKG: Attestation: I personally reviewed and interpreted this EKG as follows: Interpretation: Sinus Rhythm and No Acute Injury Pattern Comments: Sinus rhythm rate 93 with marked sinus arrhythmia. Contact no acute signs of SD or ischemia. Discharge Plan Triage Chief Complaint: Syncope Other Complaint: Hypotension ED Provider: Otoniel Ellis Dx/Rx/DC Orders Clinical Impression: Acute hypotension, Acute dehydration, Bradycardia, Syncope, Dark stools Prescriptions: No Action hydroxyzine HCl 50 mg tablet 50 mg PO ONCE naproxen 500 mg tablet 500 mg PO Q12H finasteride 5 mg tablet 5 mg PO QDAY multivitamin 1 EACH tablet 1 ea PO DAILY gabapentin 300 MG capsule 900 mg PO QHS omeprazole 20 MG capsule 20 mg PO BID lisinopril 40 MG tablet 40 mg PO DAILY calcium carbonate-vitamin D3 1 EACH tablet 1 ea PO DAILY terazosin 2 MG capsule 5 mg PO QHS Primary Care Provider: Jaime Johnson Referrals: Jaime Johnson MD [Primary Care Provider] - Disposition Disposition: Acute Care [facility]
[2022-12-28] MEDS: 0.9% Normal Saline 1,000 ML 1000 ML IV (22:38)
--- NOTE | 2022-12-28 22:40 | RAD_ITS ---
STUDY: X-RAY CHEST REASON FOR EXAM: Male, 87 years old. Chest pain TECHNIQUE: Single AP portable view of the chest. COMPARISON: None. FINDINGS: There are monitoring devices. There is right lower lung atelectasis or infiltrate. There is no demonstrated pleural abnormality. Normal size heart. Normal mediastinum and dustin. Normal visualized pulmonary arteries. There is atherosclerotic calcification of the aortic arch with tortuosity. There is demineralization of the osseous structures. There is degenerative change of the spine. Normal visualized ribs, clavicles, and shoulders. There are dilated loops of bowel in the upper abdomen. RAD/Chest 1 View (Portable) IMPRESSION: Right lower lung atelectasis or infiltrate. Electronically Signed: Nathen Lau MD at 23:10 EDT ,
[2022-12-28 22:54] LABS: Absolute Lymphocyte Count 1.38 X10^3/uL (0.83-4.51); Absolute Neutrophil Count 7.4 X10^3/uL (2.0-7.7); Basophil# 0.02 X10^3/uL; Basophil% 0.2 % (0-1); Eosinophil# 0.11 X10^3/uL; Eosinophils% 1.1 % (0-5); Hemoglobin 13.2 g/dL (13.0-16.5); Lymphocyte # 1.38 X10^3/ul (0.83-4.51); Lymphocyte % 14.1 % (19-41); Mean Corp Hgb Conc 33.8 g/dL (32-36); Mean Corpuscular Hgb 33.4 pg (27.0-32.0); Mean Corpuscular Volume 98.7 fL (80-94); Monocyte# 0.81 X10^3/uL; Monocyte% 8.3 % (0-10); NRBC Flagged by Analyzer 0 % (0-5); Neutrophil # 7.43 X10^3/uL (2.7-7.7); Neutrophil % 75.9 % (47-70); Platelet Count 326 K/mm3 (150-450); RBC Distribution Width CV 13.1 % (11.6-14.6); Red Blood Count 3.95 M/mm3 (4.6-6.2); White Blood Count 9.8 K/mm3 (4.4-11.0)
[2022-12-28 22:58] LABS: POSITIVE COUNT NO; POSITIVE DIFFERENTIAL NO; POSITIVE MORPHOLOGY NO
[2022-12-28 23:16] LABS: Anion Gap 8 (5-15); BUN 29 mg/dL (7-18); BUN/Creat Ratio 15.2 RATIO (10-20); Calcium,Total 9.1 mg/dL (8.5-10.1); Chloride 95 mmol/L (98-107); Creatinine, Serum 1.91 mg/dL (0.70-1.30); EST Glomerular Filtration Rate 36 mL/min (>60); Est Glom Filt Rate - Afr Amer 43 mL/min (>60); Estimated Creatinine Clearance 27.36 ml/min; Glucose 121 mg/dL (74-106); Potassium 3.4 mmol/L (3.5-5.1); Sodium Level 131 mmol/L (136-145); Troponin-I HS 18 pg/mL (3.0-78.0)
[2022-12-28 23:19] LABS: Lactic Acid 2.5 mmol/L (0.4-1.9)
--- NOTE | 2022-12-28 23:43 | PCM.HP.STD ---
[facility] - General General Date of Admission: 12/28/22 Date of Service: 12/28/22 Chief Complaint: Syncopal episode HPI Narrative MARY COLÓN, is a 87 M who presents to the emergency room with chief complaint of syncopal episode. Patient was discharged from [facility] earlier today following a 5-day course for previous fall with injury to head causing an intracranial hemorrhage that was determined to be stable and not needing surgery. Patient's daughter states he has not had much to eat over the last several days and takes iron routinely but had his first bowel movement in 5 days and was reportedly black. After having this bowel movement he fell asleep and fell to the floor. He reports no new injuries. Patient continues to be fatigued following his ordeal and prolonged stay at the hospital. Laboratory studies are unremarkable at this time and patient will be admitted for observation overnight with IV hydration and monitor his CBC and Hemoccult stool for possible GI bleed. [facility] Medical History BPH (benign prostatic hyperplasia) GERD (gastroesophageal reflux disease) Hypertension Restless legs syndrome Home Medications calcium carbonate 600 mg-vitamin D3 10 mcg (400 unit) tablet 1 ea PO DAILY 07/02/15 [History Last Taken Unknown] gabapentin 300 mg capsule 900 mg PO QHS 07/02/15 [History Last Taken Unknown] lisinopril 40 mg tablet 40 mg PO DAILY 07/02/15 [History Last Taken 07/08/15 05:00] multivitamin 1 ea PO DAILY 07/02/15 [History Last Taken Unknown] omeprazole 20 mg capsule,delayed release 20 mg PO BID 07/02/15 [History Last Taken 07/08/15 05:00] finasteride 5 mg tablet 5 mg PO QDAY 05/17/17 [History Last Taken Unknown] hydroxyzine HCl 50 mg tablet 50 mg PO ONCE 05/17/17 [History Last Taken Unknown] naproxen 500 mg tablet 500 mg PO Q12H 05/17/17 [History Last Taken Unknown] terazosin 2 mg capsule 5 mg PO QHS 05/17/17 [History Last Taken Unknown] Allergy/AdvReac Type Severity Reaction Status Date / Time Penicillins Allergy Rash Verified 12/28/22 22:09 Family History Mother Cirrhosis of liver Surgical History H/O hernia repair Hx of cholecystectomy S/P right rotator cuff repair Unspecified nasal polyp Social History Smoking Status: Never smoker how long ago did patient quit smokin years ago ROS Constitutional Constitutional: Reports fatigue, malaise and weakness; Denies chills or fever(s) Eyes Eyes: Denies blurry vision ENT HEENT: Denies abnormal hearing Cardiovascular Cardiovascular: Denies chest pain Respiratory/Chest Respiratory/Chest: Denies cough Gastrointestinal Gastrointestinal: Denies abdominal pain Genitourinary Genitourinary: Denies dysuria Musculoskeletal Musculoskeletal: Denies back pain Integumentary Integumentary: Denies dry skin Neurologic Neurologic: Denies abnormal speech Psychiatric Psychiatric: Denies anxiety Vital Signs Vital Signs Vital Signs: 12/28/22 22:00 12/28/22 22:07 12/28/22 22:15 Temperature 96.6 F L Temperature Source Temporal Pulse Rate 124 H Respiratory Rate 16 Respiratory Effort Normal Non-Labored Respiratory Pattern Normal Blood Pressure 87/63 L Blood Pressure Mean 71 Pulse Ox 97 Oxygen Delivery Method Room Air 12/28/22 22:38 12/28/22 22:40 12/28/22 22:45 Temperature Temperature Source Pulse Rate 66 67 72 Respiratory Rate 25 H 27 H 19 H Respiratory Effort Respiratory Pattern Blood Pressure 93/74 Blood Pressure Mean 82 Pulse Ox 96 94 Oxygen Delivery Method 12/28/22 22:50 12/28/22 23:00 12/28/22 23:10 Temperature Temperature Source Pulse Rate 76 62 75 Respiratory Rate 16 24 H 22 H Respiratory Effort Respiratory Pattern Blood Pressure 95/52 L Blood Pressure Mean 64 Pulse Ox Oxygen Delivery Method 12/28/22 23:16 12/28/22 23:20 Temperature Temperature Source Pulse Rate 99 92 Respiratory Rate 25 H 28 H Respiratory Effort Respiratory Pattern Blood Pressure 112/69 Blood Pressure Mean 82 Pulse Ox Oxygen Delivery Method Weight Weight: 166 lb 10.711 oz Body Mass Index (BMI) 25.2 Physical Exam Const alert General Appearance: cooperative Orientation / Consciousness: lethargic HEENT normocephalic Eyes PERRL and EOMs intact bilaterally Neck no lymphadenopathy Lymph Lymphatic: no lymphadenopathy noted Resp normal respiratory effort, normal air movement and clear to auscultation bilaterally Cardio regular rate, regular rhythm, S1 normal heart sound and S2 normal heart sound GI soft to palpation Extremity normal capillary refill Skin General Skin Exam: no breakdown Neuro no focal motor deficits and no sensory deficits noted Psych cooperative Attitude: agitated Mood & Affect: flat affect Results Lab / Micro Data 12/28/22 22:30 12/28/22 22:30 Labs: Laboratory Results - last 24 hr 12/28/22 22:30: WBC 9.8, RBC 3.95 L, Hgb 13.2, Hct 39.0 L, MCV 98.7 H, MCH 33.4 H, MCHC 33.8 D, RDW Std Deviation 47.0 H, RDW Coeff of Donald 13.1, Plt Count 326, MPV 10.0, Immature Gran % (Auto) 0.400, Neut % (Auto) 75.9 H, Lymph % (Auto) 14.1 L, [place] % (Auto) 8.3, Eos % (Auto) 1.1, Baso % (Auto) 0.2, Absolute Neuts (auto) 7.4, Absolute Lymphs (auto) 1.38, Nucleated RBC % 0, Sodium 131 L, Potassium 3.4 L, Chloride 95 L, Carbon Dioxide 28.0, Anion Gap 8, BUN 29 H, Creatinine 1.91 H, Estim Creat Clear Calc 27.36, Est GFR (MDRD) Af Amer 43 L, Est GFR (MDRD) Non-Af 36 L, BUN/Creatinine Ratio 15.2, Glucose 121 H, Lactic Acid 2.5 H*, Calcium 9.1, Troponin I High Sens 18, Antibody Screen NEGATIVE Rhythm Strip Rhythm Strip: Sinus Rhythm Rate: 93 Ectopy: None Radiology Impression Chest X-Ray 12/28/22 22:40 IMPRESSION: Right lower lung atelectasis or infiltrate. Electronically Signed: Nathen Lau MD at 23:10 EDT , Assessment & Plan Assessment/Plan (1) Dark stools: (2) Syncope: (3) Acute dehydration: (4) Fall: (5) Chest wall contusion: (6) Intracranial hemorrhage: PLAN: Plan 1 syncopal episode?admit patient to progressive care unit for observation. Patient likely dehydrated and will continue IV normal saline at 125 cc overnight. Repeat BMP and CBC in the morning. 2. Dark stools?repeat CBC and Hemoccult stool we will add PPI 3. Intracranial hemorrhage?determined to be stable and discharged from [facility] earlier today 4. DVT prophylaxis?SCDs due to recent intracranial hemorrhage and possible GI bleed will not be using anticoagulation Charges/Coding Visit Charges OBSV E&M: 56522 Observ/hosp same date L2
[2022-12-29 00:31] VITALS: BP 120/71; PULSE 115; RESP 16; TEMP 36.8; O2SAT 96; BMI 24.8
[2022-12-29 02:40] LABS: Reflex Lactate? Y
[2022-12-29] MEDS: traMADol 50 MG Tablet PO ×2 (04:44→23:48)
[2022-12-29 06:00] VITALS: BP 140/97; PULSE 60; RESP 18; TEMP 36.3; O2SAT 95
[2022-12-29 06:03] LABS: Absolute Lymphocyte Count 1.56 X10^3/uL (0.83-4.51); Absolute Neutrophil Count 5.7 X10^3/uL (2.0-7.7); Basophil# 0.03 X10^3/uL; Basophil% 0.4 % (0-1); Eosinophil# 0.08 X10^3/uL; Hematocrit 34.9 % (40-54); Hemoglobin 11.7 g/dL (13.0-16.5); Lymphocyte # 1.56 X10^3/ul (0.83-4.51); Lymphocyte % 19.1 % (19-41); Mean Corp Hgb Conc 33.5 g/dL (32-36); Mean Corpuscular Hgb 32.8 pg (27.0-32.0); Mean Corpuscular Volume 97.8 fL (80-94); Mean Platelet Vol. 9.3 fl (6.2-12.0); Monocyte# 0.75 X10^3/uL; Monocyte% 9.2 % (0-10); NRBC Flagged by Analyzer 0 % (0-5); Neutrophil % 69.8 % (47-70); Platelet Count 273 K/mm3 (150-450); RBC Distribution Width CV 12.9 % (11.6-14.6); RBC Distribution Width SD 46.3 fl (35.1-43.9); Red Blood Count 3.57 M/mm3 (4.6-6.2); White Blood Count 8.2 K/mm3 (4.4-11.0)
[2022-12-29 06:33] LABS: Anion Gap 9 (5-15); BUN 30 mg/dL (7-18); BUN/Creat Ratio 19.5 RATIO (10-20); Calcium,Total 8.4 mg/dL (8.5-10.1); Chloride 101 mmol/L (98-107); Creatinine, Serum 1.54 mg/dL (0.70-1.30); EST Glomerular Filtration Rate 46 mL/min (>60); Est Glom Filt Rate - Afr Amer 55 mL/min (>60); Estimated Creatinine Clearance 33.93 ml/min; Glucose 107 mg/dL (74-106); Lactic Acid 0.8 mmol/L (0.4-1.9); Sodium Level 133 mmol/L (136-145)
[2022-12-29 09:52] VITALS: BP 144/85; BP 158/62; BP 159/64
[2022-12-29 10:30] LABS: Magnesium 1.9 mg/dL (1.6-2.6); Phosphorus 3.4 mg/dL (2.5-4.9)
[2022-12-29] MEDS: Lactated Ringers 1,000 ML 100 ML IV (10:50)
[2022-12-29] MEDS: Pantoprazole Sodium 20 MG Tablet PO ×2 (10:51→20:26)
[2022-12-29] MEDS: Calcium Carb/Vitamin D 1 TABLET Tablet PO (10:51)
[2022-12-29] MEDS: Potassium Chloride Oral Tablet 20 MEQ 40 MEQ PO ×2 (10:56→16:58)
[2022-12-29 11:33] LABS: Mucous, Urine 0 SEEN /hpf (<or=2+)
[2022-12-29 11:39] LABS: Color, Urine Yellow (Yellow); Glucose, Dipstick Normal (Normal); Ketone-Dipstick 15 mg/dl (Negative); Leukocyte Esterase-Dipstick Negative /ul (Negative); Nitrite-Dipstick Negative (Negative); Occult Blood-Urine 25 /ul (Negative); Protein-Dipstick 15 mg/dl (Negative); Specific Gravity, Urine 1.015 (1.002-1.030); Urine Bilirubin Dipstick Negative (Negative); Urine Clarity Clear (Clear); Urine Urobilinogen Normal (Normal)
[2022-12-29 11:48] LABS: Bacteria RARE /hpf (None Seen); Red Blood Cells-Urine 0-5 SEEN /hpf (0-5); Squamous Epithelial Cells - UA 0-5 SEEN /hpf (0-5); White Blood Cells 0-5 SEEN /hpf (0-5)
[2022-12-29 11:49] LABS: Hyaline Cast 0-5 SEEN /lpf (0-5)
[2022-12-29 12:00] VITALS: BP 130/87; PULSE 83; RESP 18; TEMP 36.6; O2SAT 96
--- NOTE | 2022-12-29 13:42 | CASEMGMT ---
Discharge Planning SNF list created and given to SW. Jessy Haji, Discharge Planning Asst.
--- NOTE | 2022-12-29 13:51 | CASEMGMT ---
Therapy said patient is going to need to go somewhere for short term rehab. SW met with patient. Introduced self and role at [facility]. SW explained therapy's recommendation to go somewhere for short term rehab. Patient said he was agreeable, but he was not sure who SW should talk to. SW attempted to call patient's , but there was no answer. SW called patient's daughter, Sindy and she was on her way in the hospital. SW told Sindy that SW will talk with her when she gets to the hospital. Sarah Villa FINISH REPAIRER HUY
--- NOTE | 2022-12-29 14:15 | CASEMGMT ---
SW spoke with patient's daughter Sindy and Polina. SW introduced self and role at [facility]. SW explained therapy's recommendation. SW provided them with a list of [place] [facility] facility providers including quality and resource use data and consistent with patient?s preferred geographic region, medical needs, and insurance network were provided from the [facility] Guide. Patient's Polina said she would prefer patient stay at [facility] and do rehab. SW let them know SW will check on bed availability. SW made a referral to TCU. Sarah SON
--- NOTE | 2022-12-29 14:17 | PN.HOSP_ITS ---
Reason for Visit Reason for Visit: Diagnoses Dehydration (12/28/22) Nontraumatic intracranial hemorrhage, unspecified (12/28/22) Other fecal abnormalities (12/28/22) Syncope and collapse (12/28/22) Contusion of unspecified front wall of thorax, initial encounter (12/28/22) Unspecified fall, initial encounter (12/28/22) Subjective Subjective Follow-up for fall and collapse. Patient family stated that he did not pass out or unconscious but he laid in the toilet seat because of weakness and was sleeping. Objective Data Objective Data Vital Signs: Vital Signs Temp Pulse Resp BP Pulse Ox O2 Del Method 97.9 F 83 18 130/87 H 96 Room Air 12/29/22 12:00 12/29/22 12:00 12/29/22 12:00 12/29/22 12:00 12/29/22 12:00 12/29/22 12:00 Oxygen Delivery Method Room Air Weight: 163 lb 5.8 oz Body Mass Index (BMI) 24.8 Intake & Output: Intake and Output for Last 24 Hours 12/27/22 12/28/22 12/29/22 23:59 23:59 23:59 Intake Total 1050 / 1050 Output Total 34 / 34 Balance 1016 / 1016 Lab / Micro Data 12/29/22 05:52 12/29/22 05:52 Labs: Laboratory Results - last 24 hr 12/28/22 11:20: Urine Color Yellow, Urine Clarity Clear, Urine pH 5.0, Ur Specific [place] 1.015, Urine Protein 15 H, Urine Glucose (UA) Normal, Urine Ketones 15 H, Urine Occult Blood 25 H, Urine Nitrite Negative, Urine Bilirubin Negative, Urine Urobilinogen Normal, Ur Leukocyte Esterase Negative, Urine RBC 0-5 SEEN, Urine WBC 0-5 SEEN, Ur Squamous Epith Cells 0-5 SEEN, Urine Bacteria RARE, Hyaline Casts 0-5 SEEN, Urine Mucus 0 SEEN 12/28/22 22:30: WBC 9.8, RBC 3.95 L, Hgb 13.2, Hct 39.0 L, MCV 98.7 H, MCH 33.4 H, MCHC 33.8 D, RDW Std Deviation 47.0 H, RDW Coeff of Donald 13.1, Plt Count 326, MPV 10.0, Immature Gran % (Auto) 0.400, Neut % (Auto) 75.9 H, Lymph % (Auto) 14.1 L, [place] % (Auto) 8.3, Eos % (Auto) 1.1, Baso % (Auto) 0.2, Absolute Neuts (auto) 7.4, Absolute Lymphs (auto) 1.38, Nucleated RBC % 0, Sodium 131 L, Potassium 3.4 L, Chloride 95 L, Carbon Dioxide 28.0, Anion Gap 8, BUN 29 H, Creatinine 1.91 H, Estim Creat Clear Calc 27.36, Est GFR (MDRD) Af Amer 43 L, Est GFR (MDRD) Non-Af 36 L, BUN/Creatinine Ratio 15.2, Glucose 121 H, Lactic Acid 2.5 H*, Calcium 9.1, Troponin I High Sens 18, Antibody Screen NEGATIVE 12/29/22 05:52: WBC 8.2, RBC 3.57 L, Hgb 11.7 L, Hct 34.9 L, MCV 97.8 H, MCH 32.8 H, MCHC 33.5, RDW Std Deviation 46.3 H, RDW Coeff of Donald 12.9, Plt Count 273, MPV 9.3, Immature Gran % (Auto) 0.500, Neut % (Auto) 69.8, Lymph % (Auto) 19.1, [place] % (Auto) 9.2, Eos % (Auto) 1.0, Baso % (Auto) 0.4, Absolute Neuts (auto) 5.7, Absolute Lymphs (auto) 1.56, Nucleated RBC % 0, Sodium 133 L, Potassium 3.0 L, Chloride 101, Carbon Dioxide 23.0, Anion Gap 9, BUN 30 H, Creatinine 1.54 H, Estim Creat Clear Calc 33.93, Est GFR (MDRD) Af Amer 55 L, Est GFR (MDRD) Non-Af 46 L, BUN/Creatinine Ratio 19.5, Glucose 107 H, Lactic Acid 0.8, Calcium 8.4 L, Phosphorus 3.4, Magnesium 1.9 Micro: Microbiology 12/28/22 23:54 Stool Stool Occult Blood (ABBIE) - Final Radiography Diagnostic Testing: Radiology Impression Chest X-Ray 12/28/22 22:40 IMPRESSION: Right lower lung atelectasis or infiltrate. Electronically Signed: Nathen Lau MD at 23:10 EDT , Rhythm Strip Rhythm Strip: Sinus Rhythm Rate: 93 Ectopy: None Physical Exam Narrative Seen and examined. Patient is very weak. He had a hard time even standing up. Easily gets frustrated. He denies passing out but he states he felt too weak to stand up. Physical exam General: Alert, Oriented x3, Cooperative HEENT: Atraumatic, PERRLA, EOMI, Normocephalic Oral: Oral mucosa dry. No Gingival or Mucosal Lesions/ Ulcerations Neck: Supple, No JVD, Negative Carotid Bruits Lungs: Air entry diminished in bilateral lung bases. Weak respiratory muscles excursions. No crepitation/rhonchi Cardiovascular: A-fib, heart rate controlled. Normal S1, Normal S2, systolic murmur LSB. Abdomen: Bowel Sounds Present, Soft, Non Tender, Non-Distended : No renal angle tenderness. No suprapubic tenderness. Extremities: No edema, Capillary Refill Less than 3 Seconds Skin: Multiple bruises, on forehead, chest area, left upper extremity up from recurrent fall. Musculoskeletal: Tenderness tenderness in left upper extremity from fall. Muscle weakness chronic, 4/5 at major joints. Neurological: Cranial nerves II-XII grossly intact, DTR 2+/4 and Symmetrical, Neuro grossly intact Psych/Mental Status: Flat affect. Easily gets irritable. Mild early dementia. Assessment & Plan Assessment/Plan (1) Syncope: QUALIFIERS: Syncope type: unspecified Qualified Code(s): R55 - Syncope and collapse (2) Fall: QUALIFIERS: Encounter type: initial encounter Qualified Code(s): W19.XXXA - Unspecified fall, initial encounter (3) Intracranial hemorrhage: PLAN: Plan 87-year-old gentleman was brought to ED by EMS for fall at home. Patient was too weak to stand up and walk and fell again to the floor after EMS arrival. Negative visible injuries. Prior to that he was admitted for 5 days in the gentleman and for intracranial hemorrhage due to fall and head injury. Patient was discharged after continued routine management. Patient also had dark stool after 5 days of constipation. 1 Fall and collapse: It is unclear whether patient had syncope as synco pe/passing out denied by family members and . Patient's daughter stated that he was too weak to stand up from toilet and he fell asleep but he woke up. Does not seem like postictal confusion or seizure. Orthostatic vitals ordered. 2. Hyponatremia and hypokalemia: Patient sodium is 133 but has chronic hyponatremia. Patient is sodium usually stays around 134. Potassium 3.0. IV fluid normal saline +20 mEq IV KCl. Potassium supplement ordered. Serum magnesium and phosphorus are in normal level. 3. Anemia of chronic disease: Patient had 1 dark stool at home. Stool for occult blood pending. On PPI. Patient hemoglobin was 13.2 yesterday probably hemoconcentration. Today 11.7 g. Normocytic normochromic anemia. Iron work- up, B12 folic acid ordered. 3. Intracranial hemorrhage?determined to be stable and discharged from [facility] on 12/28/2022 4. DVT prophylaxis?SCDs due to recent intracranial hemorrhage and possible GI bleed will not be using anticoagulation Total time of the visit including total time spent in counseling or coordination of care, (more than 50% of the total time, spent in obtaining medical information from nurses and other ancillary care providers,explaining to the patient about labs, imaging, diagnosis and management of active complex medical conditions), history taken from patient's family member, clinical update given to patient's family member, review of labs and imaging is 40 minutes. Microbiology Past 72 Hours 12/28/22 23:54 Stool Stool Occult Blood (ABBIE) - Final Laboratory Results 12/28/22 11:20: Urine Color Yellow, Urine Clarity Clear, Urine pH 5.0, Ur Specific [place] 1.015, Urine Protein 15 H, Urine Glucose (UA) Normal, Urine Ketones 15 H, Urine Occult Blood 25 H, Urine Nitrite Negative, Urine Bilirubin Negative, Urine Urobilinogen Normal, Ur Leukocyte Esterase Negative, Urine RBC 0-5 SEEN, Urine WBC 0-5 SEEN, Ur Squamous Epith Cells 0-5 SEEN, Urine Bacteria RARE, Hyaline Casts 0-5 SEEN, Urine Mucus 0 SEEN 12/28/22 22:30: WBC 9.8, RBC 3.95 L, Hgb 13.2, Hct 39.0 L, MCV 98.7 H, MCH 33.4 H, MCHC 33.8 D, RDW Std Deviation 47.0 H, RDW Coeff of Donald 13.1, Plt Count 326, MPV 10.0, Immature Gran % (Auto) 0.400, Neut % (Auto) 75.9 H, Lymph % (Auto) 14.1 L, [place] % (Auto) 8.3, Eos % (Auto) 1.1, Baso % (Auto) 0.2, Absolute Neuts (auto) 7.4, Absolute Lymphs (auto) 1.38, Nucleated RBC % 0, Sodium 131 L, Potassium 3.4 L, Chloride 95 L, Carbon Dioxide 28.0, Anion Gap 8, BUN 29 H, Creatinine 1.91 H, Estim Creat Clear Calc 27.36, Est GFR (MDRD) Af Amer 43 L, Est GFR (MDRD) Non-Af 36 L, BUN/Creatinine Ratio 15.2, Glucose 121 H, Lactic Acid 2.5 H*, Calcium 9.1, Troponin I High Sens 18, Blood Type Pending, Antibody Screen NEGATIVE 12/29/22 05:52: WBC 8.2, RBC 3.57 L, Hgb 11.7 L, Hct 34.9 L, MCV 97.8 H, MCH 32.8 H, MCHC 33.5, RDW Std Deviation 46.3 H, RDW Coeff of Donald 12.9, Plt Count 273, MPV 9.3, Immature Gran % (Auto) 0.500, Neut % (Auto) 69.8, Lymph % (Auto) 19.1, [place] % (Auto) 9.2, Eos % (Auto) 1.0, Baso % (Auto) 0.4, Absolute Neuts (auto) 5.7, Absolute Lymphs (auto) 1.56, Nucleated RBC % 0 , Sodium 133 L, Potassium 3.0 L, Chloride 101, Carbon Dioxide 23.0, Anion Gap 9, BUN 30 H, Creatinine 1.54 H, Estim Creat Clear Calc 33.93, Est GFR (MDRD) Af Amer 55 L, Est GFR (MDRD) Non-Af 46 L, BUN/Creatinine Ratio 19.5, Glucose 107 H, Lactic Acid 0.8, Calcium 8.4 L, Phosphorus 3.4, Magnesium 1.9 Assessment & Plan (1) Syncope: Qualifiers: Syncope type: unspecified Qualified Code(s): R55 - Syncope and collapse (2) Fall: Qualifiers: Encounter type: initial encounter Qualified Code(s): W19.XXXA - Unspecified fall, initial encounter (3) Intracranial hemorrhage: Plan 87-year-old gentleman was brought to ED by EMS for fall at home. Patient was t oo weak to stand up and walk and fell again to the floor after EMS arrival. Negative visible injuries. Prior to that he was admitted for 5 days in the gentleman and for intracranial hemorrhage due to fall and head injury. Patient was discharged after continued routine management. Patient also had dark stool after 5 days of constipation. 1 Fall and collapse: It is unclear whether patient had syncope as syncope/passing out denied by family members and . Patient's daughter stated that he was too weak to stand up from toilet and he fell asleep but he woke up. Does not seem like postictal confusion or seizure. Orthostatic vitals ordered. 2. Hyponatremia and hypokalemia: Patient sodium is 133 but has chronic hyponatremia. Patient is sodium usually stays around 134. Potassium 3.0. IV fluid normal saline +20 mEq IV KCl. Potassium supplement ordered. Serum magnesium and phosphorus are in normal level. 3. Anemia of chronic disease: Patient had 1 dark stool at home. Stool for occult blood pending. On PPI. Patient hemoglobin was 13.2 yesterday probably hemoconcentration. Today 11.7 g. Normocytic normochromic anemia. Iron work- up, B12 folic acid ordered. 3. Intracranial hemorrhage?determined to be stable and discharged from [facility] on 12/28/2022 4. DVT prophylaxis?SCDs due to recent intracranial hemorrhage and possible GI bleed will not be using anticoagulation Total time of the visit including total time spent in counseling or coordination of care, (more than 50% of the total time, spent in obtaining medical information from nurses and other ancillary care providers,explaining to the patient about labs, imaging, diagnosis and management of active complex medical conditions), history taken from patient's family member, clinical update given to patient's family member, review of labs and imaging is 40 minutes. Microbiology Past 72 Hours 12/28/22 23:54 Stool Stool Occult Blood (ABBIE) - Final Laboratory Results 12/28/22 11:20: Urine Color Yellow, Urine Clarity Clear, Urine pH 5.0, Ur Specific [place] 1.015, Urine Protein 15 H, Urine Glucose (UA) Normal, Urine Ketones 15 H, Urine Occult Blood 25 H, Urine Nitrite Negative, Urine Bilirubin Negative, Urine Urobilinogen Normal, Ur Leukocyte Esterase Negative, Urine RBC 0-5 SEEN, Urine WBC 0-5 SEEN, Ur Squamous Epith Cells 0-5 SEEN, Urine Bacteria RARE, Hyaline Casts 0-5 SEEN, Urine Mucus 0 SEEN 12/28/22 22:30: WBC 9.8, RBC 3.95 L, Hgb 13.2, Hct 39.0 L, MCV 98.7 H, MCH 33.4 H, MCHC 33.8 D, RDW Std Deviation 47.0 H, RDW Coeff of Donald 13.1, Plt Count 326, MPV 10.0, Immature Gran % (Auto) 0.400, Neut % (Auto) 75.9 H, Lymph % (Auto) 14.1 L, [place] % (Auto) 8.3, Eos % (Auto) 1.1, Baso % (Auto) 0.2, Absolute Neuts (auto) 7.4, Absolute Lymphs (auto) 1.38, Nucleated RBC % 0, Sodium 131 L, Po tassium 3.4 L, Chloride 95 L, Carbon Dioxide 28.0, Anion Gap 8, BUN 29 H, Creatinine 1.91 H, Estim Creat Clear Calc 27.36, Est GFR (MDRD) Af Amer 43 L, Est GFR (MDRD) Non-Af 36 L, BUN/Creatinine Ratio 15.2, Glucose 121 H, Lactic Acid 2.5 H*, Calcium 9.1, Troponin I High Sens 18, Blood Type Pending, Antibody Screen NEGATIVE 12/29/22 05:52: WBC 8.2, RBC 3.57 L, Hgb 11.7 L, Hct 34.9 L, MCV 97.8 H, MCH 32.8 H, MCHC 33.5, RDW Std Deviation 46.3 H, RDW Coeff of Donald 12.9, Plt Count 273, MPV 9.3, Immature Gran % (Auto) 0.500, Neut % (Auto) 69.8, Lymph % (Auto) 19.1, [place] % (Auto) 9.2, Eos % (Auto) 1.0, Baso % (Auto) 0.4, Absolute Neuts (a uto) 5.7, Absolute Lymphs (auto) 1.56, Nucleated RBC % 0 , Sodium 133 L, Potassium 3.0 L, Chloride 101, Carbon Dioxide 23.0, Anion Gap 9, BUN 30 H, Creatinine 1.54 H, Estim Creat Clear Calc 33.93, Est GFR (MDRD) Af Amer 55 L, Est GFR (MDRD) Non-Af 46 L, BUN/Creatinine Ratio 19.5, Glucose 107 H, Lactic Acid 0.8, Calcium 8.4 L, Phosphorus 3.4, Magnesium 1.9 Charges/Coding Visit Charges Inpatient E&M: 19623 Subs Hosp L2
--- NOTE | 2022-12-29 14:59 | CASEMGMT ---
SOFIA spoke with patient's daughter Sindy again per her request. Sindy asked if she would be notified before patient was discharged and SOFIA let her know SW would definitely notify her. SOFIA also let Sindy know that patient will be able to wear regular clothes while there. Sindy asked SOFIA to call her first. Family wants to make sure patient stays at [facility] for his rehab. Plan: Patient will go to [facility] 4th floor Rehab vs TCU pending insurance approval. Sarah SON
--- NOTE | 2022-12-29 15:05 | CASEMGMT ---
KATARZYNA VELOZ: KATARZYNA VELOZ in to discuss ROLON form with patient. Pt noted to have some confusion and pt's and daughter are at bedside. KATARZYNA VELOZ explained ROLON form to patient's daughter and who voiced understanding. Pt's signed form and filed in chart. Pt and family provided with a copy of signed ROLON form. Patient had no further questions or concerns at this time. Notified by registration that pt has VA benefits and did not want them used upon admission. VA revocation of benefits form completed and signed by pt's spouse. Pt's daughter states they do not use VA benefits except for hearing aids. Lizzie Coronel RN CM
[2022-12-29] MEDS: KCL 20MEQ in 0.9% NS 20 MEQ/1,000 ML IV.SOLN. 100 MEQ IV (17:15)
[2022-12-29 18:00] VITALS: BP 152/82; PULSE 64; RESP 16; TEMP 36.2; O2SAT 97
--- NOTE | 2022-12-29 20:49 | EKG12_ITS ---
Test Reason : RHTY. CHG Blood Pressure : / mmHG Vent. Rate : 066 BPM Atrial Rate : 066 BPM P-R Int : 222 ms QRS Dur : 052 ms QT Int : 364 ms P-R-T Axes : 058 061 062 degrees QTc Int : 381 ms Sinus rhythm with 1st degree A-V block Otherwise normal ECG When compared with ECG of 28-DEC-2022 22:27, MANUAL COMPARISON REQUIRED, DATA IS UNCONFIRMED Confirmed by EDNA SOUSA, DG ([id number]), medical transcription editor [place] ([id number]) on 12/31/2022 1:37:23 PM Referred By: Confirmed By:DG BISHOP MD
[2022-12-30 03:43] VITALS: BMI 25.9
[2022-12-30 06:11] LABS: Absolute Lymphocyte Count 1.43 X10^3/uL (0.83-4.51); Absolute Neutrophil Count 5.3 X10^3/uL (2.0-7.7); Basophil# 0.04 X10^3/uL; Basophil% 0.5 % (0-1); Eosinophil# 0.24 X10^3/uL; Eosinophils% 3.1 % (0-5); Hematocrit 34.7 % (40-54); Hemoglobin 12.1 g/dL (13.0-16.5); Lymphocyte # 1.43 X10^3/ul (0.83-4.51); Lymphocyte % 18.5 % (19-41); Mean Corp Hgb Conc 34.9 g/dL (32-36); Mean Corpuscular Hgb 34.1 pg (27.0-32.0); Mean Corpuscular Volume 97.7 fL (80-94); Mean Platelet Vol. 9.5 fl (6.2-12.0); Monocyte# 0.72 X10^3/uL; Monocyte% 9.3 % (0-10); NRBC Flagged by Analyzer 0 % (0-5); Neutrophil # 5.27 X10^3/uL (2.7-7.7); Neutrophil % 68.2 % (47-70); Platelet Count 277 K/mm3 (150-450); RBC Distribution Width CV 13.2 % (11.6-14.6); RBC Distribution Width SD 47.7 fl (35.1-43.9); RET-HE 36.3 pg (30-35); Red Blood Count 3.55 M/mm3 (4.6-6.2); Reticulocyte Count 1.56 % (0.5-1.5); White Blood Count 7.7 K/mm3 (4.4-11.0)
[2022-12-30 08:01] LABS: Vitamin B12 1669 pg/mL (211-911)
[2022-12-30 08:17] LABS: Anion Gap 7 (5-15); BUN 29 mg/dL (7-18); BUN/Creat Ratio 22.7 RATIO (10-20); Chloride 105 mmol/L (98-107); Creatinine, Serum 1.28 mg/dL (0.70-1.30); EST Glomerular Filtration Rate 57 mL/min (>60); Est Glom Filt Rate - Afr Amer 69 mL/min (>60); Estimated Creatinine Clearance 40.82 ml/min; Ferritin 357 ng/mL (26-388); Glucose 110 mg/dL (74-106); Iron Binding Capacity,Total 127 ug/dL (250-450); Sodium Level 135 mmol/L (136-145)
[2022-12-30] MEDS: Pantoprazole Sodium 20 MG Tablet PO ×2 (08:55→19:58)
[2022-12-30] MEDS: Calcium Carb/Vitamin D 1 TABLET Tablet PO (08:55)
[2022-12-30 10:00] VITALS: O2SAT 93
[2022-12-30] MEDS: guaiFENesin/D-Methorphan TAB.SR.12H 2 TABLET PO ×2 (11:01→19:58)
[2022-12-30] MEDS: Benzonatate 100 MG Capsule 200 MG PO (15:45)
--- NOTE | 2022-12-30 18:37 | PN.HOSP_ITS ---
Reason for Visit Reason for Visit: Diagnoses Dehydration (12/28/22) Nontraumatic intracranial hemorrhage, unspecified (12/28/22) Other fecal abnormalities (12/28/22) Syncope and collapse (12/28/22) Contusion of unspecified front wall of thorax, initial encounter (12/28/22) Unspecified fall, initial encounter (12/28/22) Objective Data Objective Data Vital Signs: Vital Signs Temp Pulse Resp BP Pulse Ox O2 Del Method 97.2 F L 64 16 152/82 H 93 Room Air 12/29/22 18:00 12/29/22 18:00 12/29/22 18:00 12/29/22 18:00 12/30/22 10:00 12/30/22 10:00 Oxygen Delivery Method Room Air Weight: 170 lb 10.205 oz Body Mass Index (BMI) 25.9 Intake & Output: Intake and Output for Last 24 Hours 12/28/22 12/29/22 12/30/22 23:59 23:59 23:59 Intake Total 1550 / 1550 1000 / 1000 Output Total 34 / 34 Balance 1516 / 1516 1000 / 1000 Lab / Micro Data 12/30/22 05:54 12/30/22 05:54 Labs: Laboratory Results - last 24 hr 12/30/22 05:54: WBC 7.7, RBC 3.55 L, Hgb 12.1 L, Hct 34.7 L, MCV 97.7 H, MCH 34.1 H, MCHC 34.9, RDW Std Deviation 47.7 H, RDW Coeff of Donald 13.2, Plt Count 277, MPV 9.5, Immature Gran % (Auto) 0.400, Neut % (Auto) 68.2, Lymph % (Auto) 18.5 L, [place] % (Auto) 9.3, Eos % (Auto) 3.1, Baso % (Auto) 0.5, Absolute Neuts (auto) 5.3, Absolute Lymphs (auto) 1.43, Nucleated RBC % 0, Retic Count 1.56 H, Immature Retic Fraction 11.30, Retic Hgb Equivalent 36.3 H, Sodium 135 L, Potassium 4.0, Chloride 105, Carbon Dioxide 23.0, Anion Gap 7, BUN 29 H, Creatinine 1.28, Estim Creat Clear Calc 40.82, Est GFR (MDRD) Af Amer 69, Est GFR (MDRD) Non-Af 57 L, BUN/Creatinine Ratio 22.7 H, Glucose 110 H, Calcium 9.0, TIBC 127 L, Ferritin 357, Vitamin B12 1669 H, Folate 43.20 Micro: Microbiology 12/28/22 23:54 Stool Stool Occult Blood (ABBIE) - Final Rhythm Strip Rhythm Strip: Sinus Rhythm Rate: 93 Ectopy: None Physical Exam Narrative Seen and examined. Patient is very weak. He had a hard time even standing up. Easily gets frustrated. He denies passing out but he states he felt too weak to stand up. Discussed with the patient as well he was also safe patient after discharge from [facility] was walking but happened suddenly. Physical exam General: Alert, Oriented x3, Cooperative HEENT: Atraumatic, PERRLA, EOMI, Normocephalic Oral: Oral mucosa moist. No Gingival or Mucosal Lesions/ Ulcerations Neck: Supple, No JVD, Negative Carotid Bruits Lungs: Air entry diminished in bilateral lung bases. Weak respiratory muscles excursions. No crepitation/rhonchi Cardiovascular: A-fib, heart rate controlled. Normal S1, Normal S2, systolic murmur LSB. Abdomen: Bowel Sounds Present, Soft, Non Tender, Non-Distended : No renal angle tenderness. No suprapubic tenderness. Extremities: No edema, Capillary Refill Less than 3 Seconds Skin: Multiple bruises, on forehead, chest area, left upper extremity up from recurrent fall. Musculoskeletal: Tenderness tenderness in left upper extremity from fall. Muscle weakness chronic, 4/5 at major joints. Difficulty in walking or unsteadiness Neurological: Cranial nerves II-XII grossly intact, DTR 2+/4 and Symmetrical, Neuro grossly intact Psych/Mental Status: Flat affect. Easily gets irritable. Mild early dementia. Assessment & Plan Assessment/Plan (1) Syncope: QUALIFIERS: Syncope type: unspecified Qualified Code(s): R55 - Syncope and collapse (2) Fall: QUALIFIERS: Encounter type: initial encounter Qualified Code(s): W19.XXXA - Unspecified fall, initial encounter (3) Intracranial hemorrhage: PLAN: Plan 87-year-old gentleman was brought to ED by EMS for fall at home. Patient was too weak to stand up and walk and fell again to the floor after EMS arrival. Negative visible injuries. Prior to that he was admitted for 5 days in the gentleman and for intracranial hemorrhage due to fall and head injury. Patient was discharged after continued routine management. Patient also had dark stool after 5 days of constipation. 1 Fall and collapse: It is unclear whether patient had syncope as syncope/pa ssing out denied by family members and . Patient's daughter stated that he was too weak to stand up from toilet and he fell asleep but he woke up. Does not seem like postictal confusion or seizure. Orthostatic vitals ordered. 12/30: Orthostatic blood pressure was done. Does not show change in blood pressure or heart rate. Pelvic and hip x-ray ordered as patient suddenly felt very weak and not able to walk steadily. 2. Hyponatremia and hypokalemia: Patient sodium is 133 but has chronic hyponatremia. Patient is sodium usually stays around 134. Potassium 3.0. IV fluid normal saline +20 mEq IV KCl. Potassium supplement ordered. Serum magnesium and phosphorus are in normal level. 12/30: Sodium is 135. BUN 29 creatinine 1.28. Potassium normal. 3. Anemia of chronic disease: Patient had 1 dark stool at home. Stool for occult blood pending. On PPI. Patient hemoglobin was 13.2 yesterday probably hemoconcentration. Today 11.7 g. Normocytic normochromic anemia. Iron work- up, B12 folic acid ordered. 12/28: Reticulocyte count is elevated. Vitamin B12 and folate acid elevated. Iron work-up is suggestive of anemia of chronic disease. 3. Intracranial hemorrhage?determined to be stable and discharged from [facility] on 12/28/2022 4. DVT prophylaxis?SCDs due to recent intracranial hemorrhage and possible GI bleed will not be using anticoagulation Total time of the visit including total time spent in counseling or coordination of care, (more than 50% of the total time, spent in obtaining medical information from nurses and other ancillary care providers,explaining to the patient about labs, imaging, diagnosis and management of active complex medical conditions), history taken from patient's family member, clinical update given to patient's family member, review of labs and imaging is 40 minutes. Microbiology Past 72 Hours 12/28/22 23:54 Stool Stool Occult Blood (ABBIE) - Final 12/30/22 05:54: WBC 7.7, RBC 3.55 L, Hgb 12.1 L, Hct 34.7 L, MCV 97.7 H, MCH 34.1 H, MCHC 34.9, RDW Std Deviation 47.7 H, RDW Coeff of Donald 13.2, Plt Count 277, MPV 9.5, Immature Gran % (Auto) 0.400, Neut % (Auto) 68.2, Lymph % (Auto) 18.5 L, [place] % (Auto) 9.3, Eos % (Auto) 3.1, Baso % (Auto) 0.5, Absolute Neuts (auto) 5.3, Absolute Lymphs (auto) 1.43, Nucleated RBC % 0, Retic Count 1.56 H, Immature Retic Fraction 11.30, Retic Hgb Equivalent 36.3 H, Sodium 135 L, Potassium 4.0, Chloride 105, Carbon Dioxide 23.0, Anion Gap 7, BUN 29 H, Creatinine 1.28, Estim Creat Clear Calc 40.82, Est GFR (MDRD) Af Amer 69, Est GFR (MDRD) Non-Af 57 L, BUN/Creatinine Ratio 22.7 H, Glucose 110 H, Calcium 9.0, TIBC 127 L, Ferritin 357, Vitamin B12 1669 H, Folate 43.20 Charges/Coding Visit Charges Inpatient E&M: 62561 Subs Hosp L2
--- NOTE | 2022-12-30 19:00 | RAD_ITS ---
INDICATION: COULDN''T STAND UP EXAMINATION/TECHNIQUE: X-RAY - XR Hips Bilateral with Pelvis when performed; Min 5 Views COMPARISON: FINDINGS: PELVIC BONES: No displaced fracture, destructive or sclerotic lesions. Note that overlapping bowel shadows may however obscure fine detail. Sacroiliac joints are unremarkable. No widening of the pubic symphysis. HIPS: There is mild narrowing of the bilateral hip joints. No displaced fracture seen in this frontal view. SOFT TISSUES: The visualized phleboliths and vascular calcifications. There is visualized degenerative change in the lower lumbar spine. RAD/Hips B/L min 2 views w/ Pelvis IMPRESSION: Mild degenerative change. No visualized acute fracture. Electronically Signed: Carli Vallejo MD at 5:41 EDT Reading Location ID and State: [facility] / [place] Tel , Service support ,
[2022-12-30 19:53] VITALS: BP 138/71; PULSE 66; RESP 18; TEMP 36.2; O2SAT 98
[2022-12-30] MEDS: traMADol 50 MG Tablet PO (19:58)
[2022-12-31 00:18] VITALS: BP 162/97; PULSE 68; RESP 18; TEMP 36.9; O2SAT 96
[2022-12-31] MEDS: MELATONIN 10 MG TABLET 5 MG PO (00:20)
[2022-12-31 05:22] VITALS: BP 169/102; PULSE 53; RESP 16; TEMP 36.6; O2SAT 97
[2022-12-31 05:55] LABS: Absolute Lymphocyte Count 1.55 X10^3/uL (0.83-4.51); Absolute Neutrophil Count 6.1 X10^3/uL (2.0-7.7); Basophil# 0.04 X10^3/uL; Basophil% 0.5 % (0-1); Eosinophil# 0.25 X10^3/uL; Eosinophils% 2.8 % (0-5); Hematocrit 34.1 % (40-54); Hemoglobin 11.5 g/dL (13.0-16.5); Lymphocyte # 1.55 X10^3/ul (0.83-4.51); Lymphocyte % 17.6 % (19-41); Mean Corp Hgb Conc 33.7 g/dL (32-36); Mean Corpuscular Hgb 33.1 pg (27.0-32.0); Mean Corpuscular Volume 98.3 fL (80-94); Mean Platelet Vol. 9.9 fl (6.2-12.0); Monocyte# 0.84 X10^3/uL; Monocyte% 9.5 % (0-10); NRBC Flagged by Analyzer 0 % (0-5); Neutrophil % 69.1 % (47-70); Platelet Count 262 K/mm3 (150-450); RBC Distribution Width CV 13.2 % (11.6-14.6); RBC Distribution Width SD 47.1 fl (35.1-43.9); Red Blood Count 3.47 M/mm3 (4.6-6.2); White Blood Count 8.8 K/mm3 (4.4-11.0)
[2022-12-31 05:56] VITALS: BMI 25.3
[2022-12-31 06:26] LABS: Anion Gap 7 (5-15); BUN 23 mg/dL (7-18); BUN/Creat Ratio 21.9 RATIO (10-20); Chloride 100 mmol/L (98-107); Creatinine, Serum 1.05 mg/dL (0.70-1.30); EST Glomerular Filtration Rate 71 mL/min (>60); Est Glom Filt Rate - Afr Amer 86 mL/min (>60); Estimated Creatinine Clearance 49.76 ml/min; Glucose 110 mg/dL (74-106); Potassium 3.8 mmol/L (3.5-5.1); Sodium Level 131 mmol/L (136-145)
[2022-12-31 06:33] VITALS: BP 169/102; PULSE 54
[2022-12-31] MEDS: hydrALAZINE 20 MG/ML Vial 10 MG IV (06:33)
[2022-12-31] MEDS: traMADol 50 MG Tablet PO (06:34)
[2022-12-31] MEDS: guaiFENesin/D-Methorphan TAB.SR.12H 2 TABLET PO (07:56)
[2022-12-31] MEDS: Pantoprazole Sodium 20 MG Tablet PO (07:56)
[2022-12-31] MEDS: Calcium Carb/Vitamin D 1 TABLET Tablet PO (07:56)
[2022-12-31] MEDS: Benzonatate 100 MG Capsule 200 MG PO (07:56)
--- NOTE | 2022-12-31 08:11 | CASEMGMT ---
Patient was approved to go to [facility] 4th floor Acute Rehab. SW will notify physician, patient, and family. Sarah SON
--- NOTE | 2022-12-31 08:59 | DCINST_ITS ---
Discharge Instructions Diet Discharge Diet: No restrictions Activity Discharge Activity: Return to Normal Activity Weight Bearing Status: Weight bearing as tolerated Dressing / Incision Call your doctor if you observe: Fever of 101 or Higher, Coldness, Increased Pain, Numbness or Tingling, Change in Color, Inability to urinate, Inability to have a bowel movement, Shortness of breath, Dizziness, Fainting spells, Swelling in the ankles, Chest pain, Prolonged hiccupping, Increased palpitations (irregular heartbeat) and Calf discomfort Follow Up Care When: IN 2 WEEKS Test Results: Test results from this visit will be discussed in further detail at your follow- up appointment, if applicable. Discharge Plan Admission Admit Date/Time: 12/28/22 23:52 Attending Provider: Moris Prasad Primary Care Provider: aJime Johnson Consulting Providers: Pastor Bazan Instructions Additional Instructions / Restrictions: BMP in 3 days before resumption of lisinopril. 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 Follow-up in 2 weeks. Discharge Orders/Prescriptions Prescriptions: New benzonatate 100 mg Capsule 200 mg PO TID PRN PRN (Reason: COUGH) Qty: 0 0RF tramadol 50 mg Tablet 50 mg PO Q6H PRN PRN (Reason: Pain Score 4-10) Qty: 0 0RF Mucinex DM 30-600 mg Tablet Extended Release 12 Hr 2 tab PO BID 7 Days Qty: 0 0RF Continued finasteride 5 mg tablet 5 mg PO QDAY multivitamin 1 EACH tablet 1 ea PO DAILY gabapentin 300 MG capsule 300 mg PO QHS omeprazole 20 MG capsule 20 mg PO BID calcium carbonate-vitamin D3 1 EACH tablet 1 ea PO DAILY terazosin 2 MG capsule 5 mg PO QHS amlodipine 2.5 mg tablet 2.5 mg PO DAILY furosemide [Lasix] 40 mg tablet 40 mg PO DAILY carvedilol 6.25 mg tablet 6.25 mg PO Q12H ferrous sulfate [FeroSul] 325 mg (65 mg iron) tablet 325 mg PO DAILY hydroxyzine pamoate [Vistaril] 50 mg capsule 50 mg PO QHS PRN (Reason: sleep) Held lisinopril 40 MG tablet 40 mg PO DAILY Hold Instructions: Hold for 3 days follow-up with BMP and check with PCP, recommend starting with lower dose. meloxicam 15 mg tablet 15 mg PO DAILY PRN PRN (Reason: pain) Hold Instructions: Hold for LOKI. Discontinued naproxen 500 mg tablet 500 mg PO Q12H Referrals / Follow Up: Jaime Johnson MD [Primary Care Provider] - Within 2 Weeks Disposition Disposition (needs filled in before D/C Order can be placed): Inpatient Rehab Unit/Facility
--- NOTE | 2022-12-31 09:55 | CASEMGMT ---
SW called patient's daughter Sindy. SW explained patient's insurance approved patient to go to [facility] 4th floor Rehab Unit. SOFIA explained the difference between TCU and Acute Rehab. Sindy was in agreement. Sindy will be in later today and SOFIA can give her a pamphlet for Acute Rehab Unit. Plan: d/c to [facility] 4th floor rehab unit. Sarah SON
[2022-12-31] MEDS: Carvedilol 6.25 MG Tablet PO (10:06)
[2022-12-31] MEDS: Ferrous Sulfate 325 MG Tablet PO (10:06)
[2022-12-31 10:07] VITALS: BP 122/77; PULSE 112; RESP 16; TEMP 37.1; O2SAT 95
--- NOTE | 2022-12-31 11:15 | DS.PCM_ITS ---
Providers Date of Admission: 12/28/22 Date of Discharge: 12/31/22 Primary Care Physician: Dr. Jaime Johnson MD Reason For Visit: SYNCOPAL EPISODE Diagnosis Discharge Diagnosis (1) Syncope: Status: Acute Code(s): R55 - Syncope and collapse Qualifiers: Syncope type: unspecified Qualified Code(s): R55 - Syncope and collapse (2) Fall: Status: Acute Code(s): W19.XXXA - Unspecified fall, initial encounter Qualifiers: Encounter type: initial encounter Qualified Code(s): W19.XXXA - Unspecified fall, initial encounter (3) Intracranial hemorrhage: Status: Acute Code(s): I62.9 - Nontraumatic intracranial hemorrhage, unspecified Plan 87-year-old gentleman was brought to ED by EMS for fall at home. Patient was too weak to stand up and walk and fell again to the floor after EMS arrival. Negative visible injuries. Prior to that he was admitted for 5 days in the gentleman and for intracranial hemorrhage due to fall and head injury. Patient was discharged after continued routine management. Patient also had dark stool after 5 days of constipation. 1 Fall and collapse: It is unclear whether patient had syncope as syncope/passing out denied by family members and . Patient's daughter state d that he was too weak to stand up from toilet and he fell asleep but he woke up. Does not seem like postictal confusion or seizure. Orthostatic vitals ordered. 12/30: Orthostatic blood pressure was done. Does not show change in blood pressure or heart rate. Pelvic and hip x-ray ordered as patient suddenly felt very weak and not able to walk steadily. 12/31: Pelvic and hip x-rays were done and does not show any acute fracture but arthritis. Mild cough and sinus congestion probably due to right lower lung atelectasis. On cough medicine and Mucinex. No clinical pneumonia on chest x- ray 2. LOKI with hyponatremia and hypokalemia: Patient sodium is 133 but has chronic hyponatremia. Patient is sodium usually stays around 134. Potassium 3.0. IV fluid normal saline +20 mEq IV KCl. Potassium supplement ordered. Serum magnesium and phosphorus are in normal level. 12/30: Sodium is 135. BUN 29 creatinine 1.28. Potassium normal. 12/25: LOKI resolved. Patient admitted with creatinine 1.54 improved to 1.05. I think is mainly related to NSAIDs patient on naproxen 500 mg twice daily and also on meloxicam. Lasix resumed. Hold lisinopril for 3 more days and decide after BMP. 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 Follow-up with outpatient corporate travel agent as patient on multiple cardiac heart failure medications although type, classification and severity of heart failure unclear. 3. Anemia of chronic disease: Patient had 1 dark stool at home. Stool for occ ult blood pending. On PPI. Patient hemoglobin was 13.2 yesterday probably hemoconcentration. Today 11.7 g. Normocytic normochromic anemia. Iron work- up, B12 folic acid ordered. 12/28: Reticulocyte count is elevated. Vitamin B12 and folate acid elevated. Iron work-up is suggestive of anemia of chronic disease. 3. Intracranial hemorrhage?determined to be stable and discharged from [facility] on 12/28/2022 4. DVT prophylaxis?SCDs due to recent intracranial hemorrhage and possible GI bleed will not be using anticoagulation Discharge medication reconciliation done. Discharge follow-up instructions completed. Discharge process discussed with the patient and all questions were answered to patient's satisfaction. Total time spent, exact 35 minutes on discharge meds reconciliation, examination, coordination of care with nurses and ancillary staff, review of imaging and blood test and discussion with the patient on follow-up instructions. Microbiology Past 72 Hours 12/28/22 23:54 Stool Stool Occult Blood (ABBIE) - Final 12/30/22 05:54: WBC 7.7, RBC 3.55 L, Hgb 12.1 L, Hct 34.7 L, MCV 97.7 H, MCH 34.1 H, MCHC 34.9, RDW Std Deviation 47.7 H, RDW Coeff of Donald 13.2, Plt Count 277, MPV 9.5, Immature Gran % (Auto) 0.400, Neut % (Auto) 68.2, Lymph % (Auto) 18.5 L, [place] % (Auto) 9.3, Eos % (Auto) 3.1, Baso % (Auto) 0.5, Absolute Neuts (auto) 5.3, Absolute Lymphs (auto) 1.43, Nucleated RBC % 0, Retic Count 1.56 H, Immature Retic Fraction 11.30, Retic Hgb Equivalent 36.3 H, Sodium 135 L, Potassium 4.0, Chloride 105, Carbon Dioxide 23.0, Anion Gap 7, BUN 29 H, Creatinine 1.28, Estim Creat Clear Calc 40.82, Est GFR (MDRD) Af Amer 69, Est GFR (MDRD) Non-Af 57 L, BUN/Creatinine Ratio 22.7 H, Glucose 110 H, Calcium 9.0, TIBC 127 L, Ferritin 357, Vitamin B12 1669 H, Folate 43.20 Medications at Discharge Home Medications calcium carbonate 600 mg-vitamin D3 10 mcg (400 unit) tablet 1 ea PO DAILY suppliment 07/02/15 gabapentin 300 mg capsule 300 mg PO QHS restless legs 07/02/15 lisinopril 40 mg tablet 40 mg PO DAILY blood pressure 07/02/15 multivitamin 1 ea PO DAILY supplement 07/02/15 omeprazole 20 mg capsule,delayed release 20 mg PO BID gerd 07/02/15 finasteride 5 mg tablet 5 mg PO QDAY 05/17/17 terazosin 2 mg capsule 5 mg PO QHS 05/17/17 amlodipine 2.5 mg tablet 2.5 mg PO DAILY blood pressure 12/31/22 benzonatate 100 mg capsule 200 mg (2 x 100 mg) PO TID PRN PRN COUGH #0 caps 12/31/22 carvedilol 6.25 mg tablet 6.25 mg PO Q12H heart 12/31/22 dextromethorphan-guaifenesin 30 mg-600 mg tablet extended [id number] hr (Mucinex DM) 2 tab PO BID 7 days #0 tabs 12/31/22 ferrous sulfate 325 mg (65 mg iron) tablet (FeroSul) 325 mg PO DAILY suppliment 12/31/22 furosemide 40 mg tablet (Lasix) 40 mg PO DAILY diuretic 12/31/22 hydroxyzine pamoate 50 mg capsule (Vistaril) 50 mg PO QHS PRN sleep 12/31/22 meloxicam 15 mg tablet 15 mg PO DAILY PRN PRN pain 12/31/22 tramadol 50 mg tablet 50 mg PO Q6H PRN PRN Pain Score 4-10 #0 tabs 12/31/22 Physical Exam Narrative Seen and examined. Patient is feeling better. Is sitting on the chair. Patient denies syncope. Orthostatic vitals were negative. Physical exam General: Alert, Oriented x3, Cooperative HEENT: Atraumatic, PERRLA, EOMI, Normocephalic Oral: Oral mucosa moist. No Gingival or Mucosal Lesions/ Ulcerations Neck: Supple, No JVD, Negative Carotid Bruits Lungs: Air entry diminished in bilateral lung bases. Weak respiratory muscles excursions. No crepitation/rhonchi Cardiovascular: A-fib, heart rate controlled. Normal S1, Normal S2, systolic murmur LSB. Abdomen: Bowel Sounds Present, Soft, Non Tender, Non-Distended : No renal angle tenderness. No suprapubic tenderness. Extremities: No edema, Capillary Refill Less than 3 Seconds Skin: Multiple bruises, on forehead, chest area, left upper extremity up from recurrent fall. Musculoskeletal: Tenderness tenderness in left upper extremity from fall. Muscle weakness chronic, 4/5 at major joints. Difficulty in walking or unsteadiness Neurological: Cranial nerves II-XII grossly intact, DTR 2+/4 and Symmetrical, Neuro grossly intact Psych/Mental Status: Flat affect. Easily gets irritable. Mild early dementia. Weight / BMI Weight Weight: 166 lb 10.711 oz Body Mass Index (BMI) 25.3 ABG / Lab / Microbiology Data 12/31/22 05:28 12/31/22 05:28 Laboratory: Laboratory Results - last 24 hr 12/30/22 05:54: Miscellaneous Test 12/31/22 05:28: WBC 8.8, RBC 3.47 L, Hgb 11.5 L, Hct 34.1 L, MCV 98.3 H, MCH 33.1 H, MCHC 33.7, RDW Std Deviation 47.1 H, RDW Coeff of Donald 13.2, Plt Count 262, MPV 9.9, Immature Gran % (Auto) 0.500, Neut % (Auto) 69.1, Lymph % (Auto) 17.6 L, [place] % (Auto) 9.5, Eos % (Auto) 2.8, Baso % (Auto) 0.5, Absolute Neuts (auto) 6.1, Absolute Lymphs (auto) 1.55, Nucleated RBC % 0, Sodium 131 L, Potassium 3.8, Chloride 100, Carbon Dioxide 24.0, Anion Gap 7, BUN 23 H, Creatinine 1.05, Estim Creat Clear Calc 49.76, Est GFR (MDRD) Af Amer 86, Est GFR (MDRD) Non-Af 71, BUN/Creatinine Ratio 21.9 H, Glucose 110 H, Calcium 9.0 Microbiology: Microbiology 12/28/22 23:54 Stool Stool Occult Blood (ABBIE) - Final Radiography Diagnostic Testing: Radiology Impression Hip/Pelvis X-Ray 12/30/22 19:00 IMPRESSION: Mild degenerative change. No visualized acute fracture. Electronically Signed: Calri Vallejo MD at 5:41 EDT , D/C Instructions Discharge Diet: No restrictions Weight Bearing Status: Weight bearing as tolerated Call your doctor if you observe: Fever of 101 or Higher, Coldness, Increased Pain, Numbness or Tingling, Change in Color, Inability to urinate, Inability to have a bowel movement, Shortness of breath, Dizziness, Fainting spells, Swelling in the ankles, Chest pain, Prolonged hiccupping, Increased palpitations (irregular heartbeat) and Calf discomfort When: IN 2 WEEKS Meaningful Use Info Meaningful Use Diagnoses (Choose all that apply): None applicable Discharge Plan Admission Admit Date/Time: 12/28/22 23:52 Attending Provider: Moris Prasad Primary Care Provider: Jaime Johnson Consulting Providers: Pastor Bazan Instructions Additional Instructions / Restrictions: BMP in 3 days before resumption of lisinopril. 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 Follow-up in 2 weeks. Discharge Orders/Prescriptions Prescriptions: New benzonatate 100 mg Capsule 200 mg PO TID PRN PRN (Reason: COUGH) Qty: 0 0RF tramadol 50 mg Tablet 50 mg PO Q6H PRN PRN (Reason: Pain Score 4-10) Qty: 0 0RF Mucinex DM 30-600 mg Tablet Extended Release 12 Hr 2 tab PO BID 7 Days Qty: 0 0RF Continued finasteride 5 mg tablet 5 mg PO QDAY multivitamin 1 EACH tablet 1 ea PO DAILY gabapentin 300 MG capsule 300 mg PO QHS omeprazole 20 MG capsule 20 mg PO BID calcium carbonate-vitamin D3 1 EACH tablet 1 ea PO DAILY terazosin 2 MG capsule 5 mg PO QHS amlodipine 2.5 mg tablet 2.5 mg PO DAILY furosemide [Lasix] 40 mg tablet 40 mg PO DAILY carvedilol 6.25 mg tablet 6.25 mg PO Q12H ferrous sulfate [FeroSul] 325 mg (65 mg iron) tablet 325 mg PO DAILY hydroxyzine pamoate [Vistaril] 50 mg capsule 50 mg PO QHS PRN (Reason: sleep) Held lisinopril 40 MG tablet 40 mg PO DAILY Hold Instructions: Hold for 3 days follow-up with BMP and check with PCP, r ecommend starting with lower dose. meloxicam 15 mg tablet 15 mg PO DAILY PRN PRN (Reason: pain) Hold Instructions: Hold for LOKI. Discontinued naproxen 500 mg tablet 500 mg PO Q12H Referrals / Follow Up: Jaime Johnson MD [Primary Care Provider] - Within 2 Weeks Disposition Disposition (needs filled in before D/C Order can be placed): Inpatient Rehab Un it/Facility Charges/Coding Visit Charges Inpatient E&M: 85393 Disch Hosp >30min
--- NOTE | 2022-12-31 11:33 | CASEMGMT ---
SW spoke with patient's daughter Sindy and patient. SOFIA explained [facility] Acute Rehab to both and both were agreeable. Plan: d/c to [facility] Acute Rehab Unit. Sarah SON
--- NOTE | 2022-12-31 11:46 | NURSING ---
report called to rehab
[2022-12-31] MEDS: Polyethylene Glycol 3350 17 GM PACKET PO (12:31)
[2022-12-31] MEDS: Bisacodyl 10 MG Suppository RC (12:31)
[2022-12-31] MEDS: amLODIPine 2.5 MG Tablet PO (12:32)
[2022-12-31] MEDS: Finasteride 5 MG Tablet PO (12:32)
--- NOTE | 2022-12-31 13:20 | PHA.DC.MR.R ---
Pharmacy [place] Med Reconciliation Pharmacy Service has performed discharge medication reconciliation for this patient upon transfer to inpatient rehab The patient's discharge medication list was reviewed for discrepancies and discrepancies were resolved. Medications at Discharge Home Medications calcium carbonate 600 mg-vitamin D3 10 mcg (400 unit) tablet 1 ea PO DAILY suppliment 07/02/15 gabapentin 300 mg capsule 300 mg PO QHS restless legs 07/02/15 lisinopril 40 mg tablet 40 mg PO DAILY blood pressure 07/02/15 multivitamin 1 ea PO DAILY supplement 07/02/15 omeprazole 20 mg capsule,delayed release 20 mg PO BID gerd 07/02/15 finasteride 5 mg tablet 5 mg PO QDAY 05/17/17 terazosin 2 mg capsule 5 mg PO QHS 05/17/17 amlodipine 2.5 mg tablet 2.5 mg PO DAILY blood pressure 12/31/22 benzonatate 100 mg capsule 200 mg (2 x 100 mg) PO TID PRN PRN COUGH #0 caps 12/31/22 carvedilol 6.25 mg tablet 6.25 mg PO Q12H heart 12/31/22 dextromethorphan-guaifenesin 30 mg-600 mg tablet extended [id number] hr (Mucinex DM) 2 tab PO BID 7 days #0 tabs 12/31/22 ferrous sulfate 325 mg (65 mg iron) tablet (FeroSul) 325 mg PO DAILY suppliment 12/31/22 furosemide 40 mg tablet (Lasix) 40 mg PO DAILY diuretic 12/31/22 hydroxyzine pamoate 50 mg capsule (Vistaril) 50 mg PO QHS PRN sleep 12/31/22 meloxicam 15 mg tablet 15 mg PO DAILY PRN PRN pain 12/31/22 polyethylene glycol 3350 17 gram/dose oral powder (Miralax) 17 g PO DAILY laxative 12/31/22 tramadol 50 mg tablet 50 mg PO Q6H PRN PRN Pain Score 4-10 #0 tabs 12/31/22
== END 2022-12-31 11:15 ==
LOC: ED 23:36 → PCU 12-29 00:30
PROVIDERS: Admitting Provider Family Medicine; Emergency Provider Emergency Medicine; PCP Family Medicine; Visit Provider Internal Medicine
DX: R55 Syncope and collapse (principal); I62.9 Nontraumatic intracranial hemorrhage, unspecified; I10 Essential (primary) hypertension; E87.1 Hypo-osmolality and hyponatremia; W19.XXXA Unspecified fall, initial encounter; I95.9 Hypotension, unspecified; E87.6 Hypokalemia; R00.1 Bradycardia, unspecified; S20.20XA Contusion of thorax, unspecified, initial encounter; E86.0 Dehydration; Z79.899 Other long term (current) drug therapy; K21.9 Gastro-esophageal reflux disease without esophagitis; N40.0 Benign prostatic hyperplasia without lower urinary tract symptoms; G25.81 Restless legs syndrome; D63.8 Anemia in other chronic diseases classified elsewhere
CPT/HCPCS: 99285; 36415; 71045; 73521; 80048; 81001; 82274; 82607; 82728; 82746; 83550; 83605; 83735; 84100; 84484; 85025; 85045; 86850; 86900; 86901; 93005; 94668; 97110; 97162; 97166; 97530; 97535; 99252; J7120; G0463

== ENCOUNTER 2022-12-31 13:57 | Inpatient (IN) | payer MEDICARE, SELFPAY ==
[2022-12-31 14:53] VITALS: BMI 28.3
[2022-12-31 14:55] VITALS: BP 119/66; PULSE 70; RESP 16; TEMP 36.6; O2SAT 98
[2022-12-31] MEDS: Acetaminophen 325 MG Tablet 650 MG PO (17:23)
[2022-12-31 19:30] VITALS: BP 114/64; PULSE 68; RESP 16; TEMP 36.5; O2SAT 98
--- NOTE | 2022-12-31 20:23 | HP.PCM_ITS ---
[facility] - [facility] General Date of Admission: 12/31/22 Date of Service: 12/31/22 Chief Complaint: Here for 3 hours daily rehabilitation. [facility] Narrative 12/28/2022 MARY COLÓN, is a 87 Male who presents to [facility] Emergency Department with syncope. Recent intracranial bleeding after fall, discharged from [facility] today. Went to bathroom, had dark stool, on iron. Lightheaded in bathroom, fell asleep, fell. Squad called, hypotensive, bradycardic. IV fluids given for hypotension. 12/28/2022 Admit to Hospital. Normal saline 125cc/hour for dehydration/syncope. Trend CBC, check stool for blood, add PPI for dark stool. SCD for DVT prophylaxis, avoid anticoagulants with possible GI bleed. 12/29/2022 Family denies syncope, laid on toilet seat from weakness, and was sleeping. Check orthostatic vital signs for dehydration. Replete potassium 3.0. Evaluate anemia. 12/30/2022 Weak, hard time standing, frustrated. Orthostatic vital signs negative. Sodium 135, BUN 29, Creatinine 1.28, K normal. Evaluation consistent with anemia of chronic disease. Stool negative for blood. 12/31/2022 Admit to for 3 hours daily rehabilitation, strengthening, prior to discharge home with . [facility] Medical History (Updated 12/31/22 @ 20:[address] Anuj Tao MD) A-fib BPH (benign prostatic hyperplasia) GERD (gastroesophageal reflux disease) Hypertension Restless legs syndrome Home Medications calcium carbonate 600 mg-vitamin D3 10 mcg (400 unit) tablet 1 ea PO DAILY suppliment 07/02/15 [History Last Taken 12/31/22] gabapentin 300 mg capsule 300 mg PO QHS restless legs 07/02/15 [History Last Taken Unknown] lisinopril 40 mg tablet 40 mg PO DAILY blood pressure 07/02/15 [History Last Taken 07/08/15 05:00] multivitamin 1 ea PO DAILY supplement 07/02/15 [History Last Taken Unknown] omeprazole 20 mg capsule,delayed release 20 mg PO BID gerd 07/02/15 [History Last Taken 12/31/22] finasteride 5 mg tablet 5 mg PO QDAY urinary retention 05/17/17 [History Last Taken Unknown] terazosin 2 mg capsule 5 mg PO QHS Antithypertensive 05/17/17 [History Last Taken Unknown] amlodipine 2.5 mg tablet 2.5 mg PO DAILY blood pressure 12/31/22 [History Last Taken Unknown] benzonatate 100 mg capsule 200 mg (2 x 100 mg) PO TID PRN PRN COUGH #0 caps 12/31/22 [Rx Last Taken 12/31/22 08:00] carvedilol 6.25 mg tablet 6.25 mg PO Q12H heart 12/31/22 [History Last Taken 12/31/22] dextromethorphan-guaifenesin 30 mg-600 mg tablet extended [id number] hr (Mucinex DM) 2 tab PO BID cough 7 days #0 tabs 12/31/22 [Rx Last Taken 12/31/22] ferrous sulfate 325 mg (65 mg iron) tablet (FeroSul) 325 mg PO DAILY suppliment 12/31/22 [History Last Taken 12/31/22] furosemide 40 mg tablet (Lasix) 40 mg PO DAILY diuretic 12/31/22 [History Last Taken Unknown] hydroxyzine pamoate 50 mg capsule (Vistaril) 50 mg PO QHS PRN sleep 12/31/22 [History Last Taken Unknown] meloxicam 15 mg tablet 15 mg PO DAILY PRN PRN pain 12/31/22 [History Last Taken Unknown] polyethylene glycol 3350 17 gram/dose oral powder (Miralax) 17 g PO DAILY laxative 12/31/22 [History Last Taken 12/31/22] tramadol 50 mg tablet 50 mg PO Q6H PRN PRN Pain Score 4-10 #0 tabs 12/31/22 [Rx Last Taken 12/31/22 06:30] Allergy/AdvReac Type Severity Reaction Status Date / Time Penicillins Allergy Rash Verified 12/28/22 22:09 Family History Mother Cirrhosis of liver Surgical History H/O hernia repair Hx of cholecystectomy S/P right rotator cuff repair Unspecified nasal polyp Social History household members: spouse current occupational status: retired Smoking Status: Former smoker how long ago did patient quit smokin years ago ROS Constitutional Constitutional: Denies chills, fever(s) or weight gain ENT HEENT: Denies headache(s), nasal congestion or nasal discharge Cardiovascular Cardiovascular: Denies chest pain or palpitations Respiratory/Chest Respiratory/Chest: Denies cough, excessive phlegm production or shortness of breath with exertion Gastrointestinal Gastrointestinal: Denies abdominal pain, nausea or vomiting Genitourinary Genitourinary: Denies dysuria Musculoskeletal Musculoskeletal: Denies joint pain or joint swelling Integumentary Integumentary: Denies rash or wounds Neurologic Neurologic: Denies focal weakness, numbness or tingling Psychiatric Psychiatric: Denies anxiety, auditory hallucinations, depression, homicidal ideation or suicidal ideation Vital Signs Vital Signs Vital Signs: 12/31/22 14:55 12/31/22 15:35 12/31/22 19:30 Temperature 98 F 97.7 F L Temperature Source Oral Temporal Pulse Rate 70 68 Respiratory Rate 16 16 Respiratory Effort Normal Non-Labored Respiratory Depth Normal Respiratory Pattern Normal Blood Pressure 119/66 114/64 Blood Pressure Mean 83 80 Blood Pressure Source Monitor Monitor Blood Pressure Position Sitting Sitting Blood Pressure Location Right Arm Left Arm Pulse Ox 98 98 Oxygen Delivery Method Room Air Room Air Room Air Weight Weight: 77.2 kg Body Mass Index (BMI) 28.3 Indicators for Scoring Admitted with or Primary Diagnosis of CVA/Stroke: No Hx of CVA/Stroke: No Modified Vernon Score MRS Score at time of Evaluation: 3-Moderate disability Physical Exam Const alert General Appearance: cooperative HEENT normocephalic Eyes PERRL and EOMs intact bilaterally Neck supple, no JVD and no carotid bruits Resp normal respiratory effort, normal air movement and clear to auscultation bilaterally Cardio regular rate and regular rhythm GI normal to inspection, nondistended, normoactive bowel sounds, non-tender and non-distended Extremity normal capillary refill General Extremity: Negative for edema Skin no rashes or lesions noted General Skin Exam: no breakdown Psych affect normal Appearance: appropriate Assessment & Plan Assessment/Plan (1) Debility: (2) Dehydration: (3) Acute kidney injury: (4) Hypokalemia: (5) Dark stools: (6) Intracranial hemorrhage: (7) Hypertension: (8) BPH (benign prostatic hyperplasia): (9) GERD (gastroesophageal reflux disease): (10) Restless legs syndrome: (11) Neuropathic pain: PLAN: Plan 87 year old male with below past medical history hospitalized for weakness, dehydration, acute kidney injury, hypokalemia, admitted to for 3 hours daily rehabilitation, strengthening, prior to discharge home with . * Debility - PT/OT. * Cognition - ST. * Pain - Tylenol 650mg q6h prn pain (1-3), Tramadol 50mg q6h prn pain (4-10). * Bowel - Miralax 17gm daily, senna/colace 2 tablets bid, Dulcolax 10mg pr x 1 prn, MOM 30ml po x 1 prn. * DVT prophylaxis - Hold, anemia. * Hypertension - Coreg 6.25mg q12h, Amlodipine 2.5mg daily. * Cough - Tessalon perles 200mg tid prn, Robitussin DM 2 tablets bid. * Calcium deficiency - Calcium D daily. * BPH - Finasteride 5mg daily, Doxazosin 2mg qhs. * Iron deficiency anemia - Ferrous sulfate 325mg daily. * Edema - Furosemide 40mg daily. * Neuropathic pain - Gabapentin 300mg qhs. * Insomnia - Hydroxyzine 50mg qhs prn. * Nutrition - MVI 1 tablet daily. * GERD - Pantoprazole 20mg bid.
[2022-12-31 20:45] VITALS: O2SAT 97
[2022-12-31] MEDS: traMADol 50 MG Tablet PO (21:05)
[2022-12-31] MEDS: Carvedilol 6.25 MG Tablet PO (21:05)
[2022-12-31] MEDS: Senna/Docusate Sodium 1 Tablet 2 TABLET PO (21:06)
[2022-12-31] MEDS: Doxazosin 1 MG Tablet 2 MG PO (21:06)
[2022-12-31] MEDS: Gabapentin 300 MG Capsule PO (21:06)
[2022-12-31] MEDS: Pantoprazole Sodium 20 MG Tablet PO (21:06)
[2022-12-31] MEDS: guaiFENesin/D-Methorphan TAB.SR.12H 2 TABLET PO (21:07)
[2022-12-31] MEDS: 0.9% Saline Lock 10 ML Syringe IV (21:12)
[2022-12-31 22:00] VITALS: PULSE 68; RESP 16; O2SAT 97
[2022-12-31] MEDS: NYSTATIN 500,000 UNIT/5 ML UDC 500000 UNIT PO (22:05)
--- NOTE | 2023-01-01 01:59 | NURSING ---
pt impulsive this hs. At shift change, pt had transferred self with family assistance to/from BR for toileting needs. Staff alerted by family. This RN urged pt and family to resist transferring pt. Family and pt educated to safety protocol in place for RU and the importance to comply. Pt disavowed responsibility and crossed arms and closed eyes with gruff reaction to needing PA placed on clothing. Family acknowledged rules set in place for pt's benefit. Pt had removed PA after son left room and this RN happened to be passing room in response to another call light. Pt claims he was heading to the toilet. Staff assisted pt to BR and reiterated the need to call staff for assistance. Pt is very slow, requires cueing, can be gruff, and demanding. PA and BA used while in bed. Frequent rounding done to ensure safety.
--- NOTE | 2023-01-01 05:52 | NURSING ---
pt refused have am labs drawn this am, d/t having too many holes poked in him. lab will send some one up later to try, note left for the doctor
[2023-01-01 07:53] VITALS: BP 150/99; PULSE 79; RESP 16; TEMP 36.9; O2SAT 94
[2023-01-01] MEDS: Carvedilol 6.25 MG Tablet PO ×2 (08:21→20:53)
[2023-01-01] MEDS: Ferrous Sulfate 325 MG Tablet PO (08:21)
[2023-01-01] MEDS: Furosemide 40 MG Tablet PO (08:21)
[2023-01-01] MEDS: Multivitamins,Therapeutic Tablet 1 TABLET PO (08:21)
[2023-01-01] MEDS: guaiFENesin/D-Methorphan TAB.SR.12H 2 TABLET PO ×2 (08:22→20:52)
[2023-01-01] MEDS: Polyethylene Glycol 3350 17 GM PACKET PO (08:22)
[2023-01-01] MEDS: amLODIPine 2.5 MG Tablet PO (08:22)
[2023-01-01] MEDS: Pantoprazole Sodium 20 MG Tablet PO ×2 (08:23→20:53)
[2023-01-01] MEDS: Calcium Carb/Vitamin D 1 TABLET Tablet PO (08:23)
[2023-01-01] MEDS: Senna/Docusate Sodium 1 Tablet 2 TABLET PO ×2 (08:23→20:53)
[2023-01-01] MEDS: NYSTATIN 500,000 UNIT/5 ML UDC 500000 UNIT PO ×4 (08:23→20:53)
[2023-01-01] MEDS: Finasteride 5 MG Tablet PO (08:23)
[2023-01-01 09:33] LABS: Absolute Lymphocyte Count 1.26 X10^3/uL (0.83-4.51); Absolute Neutrophil Count 7.8 X10^3/uL (2.0-7.7); Basophil# 0.03 X10^3/uL; Basophil% 0.3 % (0-1); Eosinophil# 0.22 X10^3/uL; Eosinophils% 2.1 % (0-5); Hematocrit 36.5 % (40-54); Hemoglobin 12.1 g/dL (13.0-16.5); Lymphocyte # 1.26 X10^3/ul (0.83-4.51); Lymphocyte % 12.2 % (19-41); Mean Corp Hgb Conc 33.2 g/dL (32-36); Mean Corpuscular Hgb 33.2 pg (27.0-32.0); Mean Platelet Vol. 9.5 fl (6.2-12.0); Monocyte# 0.89 X10^3/uL; Monocyte% 8.6 % (0-10); NRBC Flagged by Analyzer 0 % (0-5); Neutrophil # 7.84 X10^3/uL (2.7-7.7); Neutrophil % 76.3 % (47-70); Platelet Count 280 K/mm3 (150-450); RBC Distribution Width CV 13.3 % (11.6-14.6); Red Blood Count 3.65 M/mm3 (4.6-6.2); White Blood Count 10.3 K/mm3 (4.4-11.0)
[2023-01-01 10:02] LABS: Anion Gap 10 (5-15); BUN 28 mg/dL (7-18); Chloride 99 mmol/L (98-107); EST Glomerular Filtration Rate 51 mL/min (>60); Est Glom Filt Rate - Afr Amer 62 mL/min (>60); Estimated Creatinine Clearance 33.56 ml/min; Glucose 119 mg/dL (74-106); Magnesium 1.7 mg/dL (1.6-2.6); Phosphorus 2.7 mg/dL (2.5-4.9); Potassium 3.8 mmol/L (3.5-5.1); Sodium Level 132 mmol/L (136-145)
--- NOTE | 2023-01-01 13:30 | CASEMGMT ---
Social Work See attached assessment for complete details. This foster care social worker met with patient in room. Introduced self and foster care social worker role. Patient agreeable to speak with this foster care social worker. Patient plans to discharge to home with spouse and patient son is currently living with patient to assist as well. This foster care social worker communicating that insurance update is due on 01/06 and that there is not gurantee of continued stay approval, patient voiced understanding. Patient identifies patient daughter, Sindy as main contact worker and is agreeable to this foster care social worker contacting Sindy to inform about insurance process. Telephone call to Sindy, this foster care social worker updated Sindy on above information. Sindy voiced understanding. Sindy made aware of team meeting on Wednesday for patient. PLAN: Home with family. Leanne PATEL, ACES
--- NOTE | 2023-01-01 13:52 | PCM.RU.PYE ---
Admission Information Primary Diagnosis:: Dehydration, ICH. Status Changes from Prescreening?: No changes Identified Actual Problem List:: Pain, ALteration in Cmfrt, Cognitve Impr/Memory Loss, Depression, Mobility Impaired, Self Care Deficit, Ineffective Communication, Know.Dfct/Disease Process and Alteration-Leisure Activ. Potential Problem List:: DVT, Bleeding, Infection, UTI, Aspiration, Falls, Skin Integrity and Depression Risk of Complications DVT: JEROME Hose Bleeding: Monitor Lab Values and Nursing to Teach Precautions for anti-coagulation therapy. Infection: Clinical Staff to Monitor for S/S of infection: and S/S of infection include fever, redness, warmth, etc. Urinary Tract Infection: Monitor for frequency, burning, discomfort, or incontinence. and Nursing will obtain urine sample for urinalysis and C&S when ordered. Aspiration: Clinical staff will monitor for coughing, drooling, congestion., Speech will evaluate swallowing and dsyphasia. and Nursing will monitor patient swallowing during meals. Falls: Patient will be evaluated for Fall Precautions and Patient will be placed on Fall Precautions as indicated per protocol. Skin Breakdown: Nursing will assess skin daily using assessment tool. and Nursing will place on Skin Breakdown Precautions as indicated. Pain: Clinical staff will assess patient's pain level per protocol., Medications will be given, if needed, and the pain level reassessed. and Other methods: Massage, distraction, decrease stimulus, etc. used PRN. Plan of Care Patient requires physician specializing in physical medicine and rehab oversight to provide close medical supervision of rehab issues including: Pain Management, Sleep Problems, Bowel and Bladder, Medical and co-morbidity Management, DVT prophylaxis, Rehabilitation Leadership and Coordination of treatment team Patient needs Physical Therapy: For a minimum of 1 hour and At least 5 out of 7 days Patient needs Physical Therapy to improve:: Mobility, Strengthening, Transfers, Stretching, ROM, Endurance, Stairs, Gait and Balance Patient needs Occupational Therapy: For a minimum of 1 hour and At least 5 out of 7 days Patient needs Occupational Therapy to improve ADL's incl.: Eating, Grooming, Bathing, Dressing, Toileting, Toilet transfers, Higher functioning activities, Household tasks and Adaptive Equipment Patient requires speech therapy: For a minimum of 1 hour and At least 5 out of 7 days Patient requires speech therapy for: Swallowing, Cognition, Language Skills and Compensatory Strategies Patient requires 24/ Rehabilitation Nursing for: Pain Issues, Identifying and preventing risk factors, Monitoring and reporting current medical conditions, Assisting with ambulation, transfer, and all ADL's, Teaching patients about disease process and medications, Family teaching, Providing safe environment, Bowel and Bladder Issues, Skin integrity and Medication Management Patient needs Steel Erecting Pusher/ Case Management for: Discharge Planning, Arranging Home Equipment or Services and Family Interventions Patient needs Dietary and Nutrition Services for: Adequate Nutrition, Nutritional Supplements and Nutritional Education Goals Patient will remain: free from falls and or injury at time of discharge. Patient will perform bed mobility at: Standby Assist. Patient will complete transfers from bed to chair at: Standby Assist. Patient will ambulate: 100 feet and with standby assist Patient will complete upper body dressing at: - (Supervision.) Patient will complete lower body dressing at: - (Supervision.) Patient will complete toileting at: - (Supervision.) Patient will perform bathing at: - (Supervision.) Patient will complete grooming at: - (Supervision.) Patient will complete home management skills at: Standby Assist. Patient will achieve: with standby assist Patient will have pain level of: of 3 or less Patient's skin will: remain intact and free from infection. Patient will receive: adequate nutrition. Discharge Planning Pt Prognosis for Sig. Practical Improv. w/in Reasonable Time: Fair Estimated Length of stay (days): 21 Anticipated D/C Destination: Home with Home Health Was Preadmission Assessment Accurate?: Yes
[2023-01-01] MEDS: 0.9% Saline Lock 10 ML Syringe IV (14:16)
[2023-01-01 19:00] VITALS: BP 104/54; PULSE 115; RESP 16; TEMP 36.9; O2SAT 95
[2023-01-01] MEDS: Doxazosin 1 MG Tablet 2 MG PO (20:53)
[2023-01-01] MEDS: Gabapentin 300 MG Capsule PO (20:56)
[2023-01-01] MEDS: Acetaminophen 325 MG Tablet 650 MG PO (21:09)
[2023-01-01 22:00] VITALS: PULSE 115; RESP 16
[2023-01-01] MEDS: hydrOXYzine PAM 25 MG Capsule 50 MG PO (22:49)
[2023-01-01] MEDS: Benzonatate 100 MG Capsule 200 MG PO (22:49)
[2023-01-02 07:42] VITALS: BP 135/51; PULSE 56; RESP 16; TEMP 36.2; O2SAT 93
[2023-01-02 08:35] VITALS: O2SAT 93
[2023-01-02] MEDS: Senna/Docusate Sodium 1 Tablet 2 TABLET PO ×2 (09:20→21:22)
[2023-01-02] MEDS: Calcium Carb/Vitamin D 1 TABLET Tablet PO (09:21)
[2023-01-02] MEDS: Finasteride 5 MG Tablet PO (09:21)
[2023-01-02] MEDS: Pantoprazole Sodium 20 MG Tablet PO ×2 (09:21→21:22)
[2023-01-02] MEDS: amLODIPine 2.5 MG Tablet PO (09:21)
[2023-01-02] MEDS: Polyethylene Glycol 3350 17 GM PACKET PO (09:22)
[2023-01-02] MEDS: Carvedilol 6.25 MG Tablet PO ×2 (09:22→21:21)
[2023-01-02] MEDS: Multivitamins,Therapeutic Tablet 1 TABLET PO (09:22)
[2023-01-02] MEDS: Furosemide 40 MG Tablet PO (09:22)
[2023-01-02] MEDS: Ferrous Sulfate 325 MG Tablet PO (09:22)
[2023-01-02] MEDS: NYSTATIN 500,000 UNIT/5 ML UDC 500000 UNIT PO ×4 (09:23→21:21)
[2023-01-02] MEDS: guaiFENesin/D-Methorphan TAB.SR.12H 2 TABLET PO ×2 (09:23→21:21)
[2023-01-02] MEDS: Acetaminophen 325 MG Tablet 650 MG PO ×2 (15:15→21:22)
[2023-01-02] MEDS: traMADol 50 MG Tablet PO (17:28)
[2023-01-02 19:19] VITALS: BP 101/57; PULSE 59; RESP 16; TEMP 36.7; O2SAT 96
[2023-01-02] MEDS: Doxazosin 1 MG Tablet 2 MG PO (21:21)
[2023-01-02] MEDS: Gabapentin 300 MG Capsule PO (21:22)
[2023-01-02] MEDS: hydrOXYzine PAM 25 MG Capsule 50 MG PO (21:23)
[2023-01-03] MEDS: Benzonatate 100 MG Capsule 200 MG PO ×2 (00:07→20:19)
[2023-01-03] MEDS: Menthol/Lanolin/Calamine/Znox 113 GM Tube 1 APPLIC TOPICAL ×3 (00:07→20:27)
[2023-01-03] MEDS: traMADol 50 MG Tablet PO ×3 (06:07→22:50)
[2023-01-03 07:20] VITALS: BP 117/51; PULSE 67; RESP 18; TEMP 36.2; O2SAT 98
[2023-01-03] MEDS: Pantoprazole Sodium 20 MG Tablet PO ×2 (08:52→20:20)
[2023-01-03] MEDS: guaiFENesin/D-Methorphan TAB.SR.12H 2 TABLET PO ×2 (08:53→20:19)
[2023-01-03] MEDS: Calcium Carb/Vitamin D 1 TABLET Tablet PO (08:53)
[2023-01-03] MEDS: Polyethylene Glycol 3350 17 GM PACKET PO (08:53)
[2023-01-03] MEDS: Senna/Docusate Sodium 1 Tablet 2 TABLET PO ×2 (08:53→20:18)
[2023-01-03] MEDS: Carvedilol 6.25 MG Tablet PO ×2 (08:54→20:19)
[2023-01-03] MEDS: Multivitamins,Therapeutic Tablet 1 TABLET PO (08:54)
[2023-01-03] MEDS: Furosemide 40 MG Tablet PO (08:54)
[2023-01-03] MEDS: Ferrous Sulfate 325 MG Tablet PO (08:55)
[2023-01-03] MEDS: amLODIPine 2.5 MG Tablet PO (08:55)
[2023-01-03] MEDS: Finasteride 5 MG Tablet PO (08:56)
[2023-01-03] MEDS: NYSTATIN 500,000 UNIT/5 ML UDC 500000 UNIT PO ×3 (08:56→20:18)
[2023-01-03] MEDS: Acetaminophen 325 MG Tablet 650 MG PO (09:05)
[2023-01-03 18:19] VITALS: BP 108/51; PULSE 62; RESP 16; O2SAT 96
--- NOTE | 2023-01-03 18:25 | EKG12_ITS ---
Test Reason : CP Blood Pressure : / mmHG Vent. Rate : 071 BPM Atrial Rate : 071 BPM P-R Int : 218 ms QRS Dur : 060 ms QT Int : 364 ms P-R-T Axes : 069 037 050 degrees QTc Int : 395 ms Sinus rhythm with 1st degree A-V block with Premature atrial complexes Otherwise normal ECG When compared with ECG of 29-DEC-2022 20:49, Premature atrial complexes are now Present Confirmed by EDNA SOUSA, DG ([id number]), manuscript editor NEW AIKEN ([id number]) on 01/04/2023 1:21:05 PM Referred By: Anuj Tao Confirmed By:DG BISHOP MD
[2023-01-03 20:00] VITALS: BP 108/51; PULSE 58; RESP 16; TEMP 36.7; O2SAT 97
[2023-01-03] MEDS: Gabapentin 300 MG Capsule PO (20:18)
[2023-01-03] MEDS: Doxazosin 1 MG Tablet 2 MG PO (20:19)
[2023-01-03] MEDS: hydrOXYzine PAM 25 MG Capsule 50 MG PO (21:21)
[2023-01-04 08:27] VITALS: BP 107/58; PULSE 65; RESP 16; TEMP 36.8; O2SAT 97
[2023-01-04] MEDS: guaiFENesin/D-Methorphan TAB.SR.12H 2 TABLET PO (08:30)
[2023-01-04] MEDS: Pantoprazole Sodium 20 MG Tablet PO ×2 (08:31→21:04)
[2023-01-04] MEDS: Furosemide 40 MG Tablet PO (08:31)
[2023-01-04] MEDS: Carvedilol 6.25 MG Tablet PO (08:31)
[2023-01-04] MEDS: Calcium Carb/Vitamin D 1 TABLET Tablet PO (08:31)
[2023-01-04] MEDS: Multivitamins,Therapeutic Tablet 1 TABLET PO (08:31)
[2023-01-04] MEDS: amLODIPine 2.5 MG Tablet PO (08:31)
[2023-01-04] MEDS: Finasteride 5 MG Tablet PO (08:31)
[2023-01-04] MEDS: Ferrous Sulfate 325 MG Tablet PO (08:33)
[2023-01-04] MEDS: traMADol 50 MG Tablet PO ×2 (08:52→16:51)
[2023-01-04] MEDS: Menthol/Lanolin/Calamine/Znox 113 GM Tube 1 APPLIC TOPICAL ×2 (08:56→20:10)
[2023-01-04] MEDS: NYSTATIN 500,000 UNIT/5 ML UDC 500000 UNIT PO ×3 (09:54→21:10)
[2023-01-04] MEDS: Benzonatate 100 MG Capsule 200 MG PO (09:56)
--- NOTE | 2023-01-04 11:00 | PN_ITS ---
Subjective Subjective Taylor was seen on TEAM rounds today. His , shyann Callahan and her were present in the room and dtr Piedad participated by phone. Afebrile VSS - BP is dropping and the HR is in the 56-67 range the past few days. Maintaining appropriate oxygen saturation on RA Oral intake is good for food and not good for fluids. Post void residuals are high ans the Hydroxyzine contributes to this. Discussed with nursing - no problems that need addressed Reviewed the PT/OT/ST notes Medication list reviewed. He was taking Terazosin and Lisinopril for HTN at presentation to the ED. He was also taking 900 mg of Gabapentin at HS. At presentation to rehab he is taking amlodipine 2.5 mg daily, carvedilol 6.25 mg twice daily, Cardura 2 mg nightly and Lasix [address] Tao discontinued the Coreg. He took tramadol 50 mg 3 times yesterday. Gabapentin was decreased from 900 mg Q HS to 300 mg Q HS. He takes 50 mg of Hydroxyzine at HS for insomnia. I reviewed the history and physical done by Dr. Tao on 12/31/2022. 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 Family found him laying on the toilet seat asleep. He had no visible injuries. He had just been discharged from [facility] earlier that day after a 5 day admission for intracerebral hemorrhage. When EMS arrived he was hypotensive and bradycardic. Signs at presentation to the emergency department were pulse rate 124 and blood pressure 87/63. Significant lab included a sodium of 131, potassium of 3.4 BUN of 29 and a creatinine of 1.91. Hemoglobin was 13.2. BP in the ED responded to IV fluids. He was admitted to the hospitalist service for LOKI due to dehydration, hypokalemia/hyponatremia. tilt was negative (but, he had already received at least a liter of fluid in the ED. He remained very weak despite hydration and replacement of potassium and he was transferred to the in acute rehab unit for 3 hours of therapy daily to restore function/independence at or near his baseline. He lives in a one story home with his and his son Atif. There are 2 steps into the home. B CAT score at admission was 25/50 indicating significant cognitive impairment, possible dementia. Prior to the intracerebral hemorrhage he was completely independent and managing his finances. Thalamic strokes are associated with contralateral sensory loss, aphasia, executive function and decline, decreased levels of consciousness and memory impairment. All lab done on admission to rehab was personally reviewed. He has a macrocytic anemia with a HGB of 12.1 and a MCV of 100. Reticulocyte count is mildly increased at 1.56. Sodium was low at 132 and potassium is 3.8. BUN was 28 with a creatinine of 1.4. Phosphorus is normal at 2.7 but the magnesium is 1.7. the EMS note from the pickup at home says he was in AF. LFTs are normal except for the alkaline phosphatase that was increased to 144. Today Taylor is c/o back and chest pain. It increases with a deep breath. 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 He admits to some Post nasal drip and rhinorrhea. No sneezing or itchy watery eyes. No hx of asthma. Denies SOB. He denies SOB, lightheadedness, dysuria, abd pain, nausea and calf pain. On a CTA of the neck in 2013 he had 50-69% stenosis of the internal carotid arteries. Family can not tell me why he is on Lasix and Coreg. The pt and the family say he has never had any heart problems and they do not recall being told he has AF. Objective Data Objective Data Vital Signs: Vital Signs Temp Pulse Resp BP Pulse Ox O2 Del Method 98.3 F 65 16 107/58 L 97 Room Air 01/04/23 08:27 01/04/23 08:27 01/04/23 08:27 01/04/23 08:27 01/04/23 08:27 01/04/23 08:27 Oxygen Delivery Method Room Air Weight: 169 lb 12.095 oz Body Mass Index (BMI) 28.3 Intake & Output: Intake and Output for Last 24 Hours 01/02/23 01/03/23 01/04/23 23:59 23:59 23:59 Intake Total 1440 / 1440 1040 / 1040 360 / 360 Output Total 500 / 500 1200 / 1200 Balance 940 / 940 -160 / -160 360 / 360 Lab / Micro Data 01/01/23 09:20 01/04/23 13:28 Physical Exam Const alert, oriented x3 and no apparent distress Constitutional Narrative: Sitting in the recliner at the bedside. He is appropriate and talkative. General Appearance: cooperative HEENT normocephalic HEENT Narrative: Tongue appears to be atrophic. It is moist. No evidence of thrush. Neck supple General: trachea midline Resp normal respiratory effort, normal air movement and clear to auscultation bilaterally Resp Narrative: has a cough which is more like he is clearing his throat. Effort and Inspection: Negative for tachypneic or labored Cardio regular rate, regular rhythm, S1 normal heart sound, S2 normal heart sound, no murmurs, no rub and no gallops Rate: Negative for tachycardic GI normal to inspection, nondistended, normoactive bowel sounds, soft to palpation and non-tender Extremity no calf tenderness General Extremity: Negative for edema Skin Skin Narrative: Many bruises from recent hospital stays. No abrasions. No skin breakdown. He has a faint rash on the low back and evidence that he has been scratching. He has Left side paravertebral spasm in the low thoracic and lumbar areas. He also has pain with palpation of the anterior left chest and This tracks around the rib to the left back. 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 He admits to having a hard time sleeping at night and he thinks this may be because he can not turn his brain off. Appearance: appropriate Assessment & Plan Assessment/Plan (1) Debility: (2) Hemorrhagic cerebrovascular accident (CVA): PLAN: Discovered on 12/24/2022. (3) Somatic dysfunction of rib: PLAN: Left 8th rib (4) Fall: QUALIFIERS: Encounter type: subsequent encounter Qualified Code(s): W19.XXXD - Unspecified fall, subsequent encounter PLAN: Two recent falls....one on the when he had the hemorrhagic stroke and 1 on 12/28/22 that lead to the recent admission to [facility]. (5) Hyponatremia: (6) H/O normocytic normochromic anemia: PLAN: Why? (7) Acute kidney injury: PLAN: due to dehydration. (8) Acute dehydration: (9) Hypokalemia: PLAN: Resolved (10) Hypertension: QUALIFIERS: Hypertension type: primary hypertension Qualified Code(s): I10 - Essential (primary) hypertension (11) BPH (benign prostatic hyperplasia): QUALIFIERS: Lower urinary tract symptom presence: symptoms present Lower urinary tract symptom detail: urinary retention Qualified Code(s): N40.1 - Benign prostatic hyperplasia with lower urinary tract symptoms; R33.8 - Other retention of urine (12) GERD (gastroesophageal reflux disease): (13) Restless legs syndrome: (14) Neuropathic pain: (15) Chronic renal failure, stage 3a: (16) Hyperglycemia: PLAN: Plan 1. continue therapy 2. Check a iron and calculate the % iron saturation. Check TSH, urine urea, urine creat, BMP. Why is he hyponatremic? 3. DC the hydroxyzine which is likely contributing to confusion, memory difficulties, drowsiness, etc. CREAT clearance on 01/01 is only 33 and this causes accumulation of Hydroxyzine. 4. B12 and folate were unremarkable. Ferritin is WNL but, it is an acute phase reactant so this does not help to diagnose iron deficiency. Glob is increased and the the albumin/globulin ratio is low at 0.8. Why does he have anemia of CD? Will check a protein electrophoresis. 5. Hold Lasix. 6. Decrease Coreg to 3.125 mg twice daily. Ask family why he is on Coreg and Lasix. 7. Get the records from the admission at [facility]. Charges/Coding Visit Charges Inpatient E&M: 70324 Subs Hosp L2
[2023-01-04 12:11] VITALS: BP 102/48; BP 116/50; BP 98/56; PULSE 64; PULSE 66; PULSE 69
--- NOTE | 2023-01-04 12:58 | CASEMGMT ---
Social Work IDT met with patient, , dtr and VIOLETA then dtr via conference call for Team meeting. Discussed patient's progress in PT/OT/ST/SN. Educated to [facility] insurance with [employer] 01/06 and continued stay is not guaranteed with each review, with $0 noted copay. Pt lives at home with his but is medically and physically compromised and cannot assist. Pt is having difficulty with following along with IDT recommendations/orders. Family is supportive and assists with compliance with pt. Pt not interested in stroke support group. SW requested family bring in copy of advanced directives. SW requested contact information for family. Updated medical records. SW will continue to follow for DC planning. Will ReTeam weekly. Roya Arteaga, DEVULCANIZER OPERATOR ENTEROSTOMAL THERAPY NURSE
[2023-01-04 14:22] LABS: Anion Gap 7 (5-15); BUN 36 mg/dL (7-18); BUN/Creat Ratio 24.8 RATIO (10-20); Calcium,Total 8.8 mg/dL (8.5-10.1); Chloride 100 mmol/L (98-107); Creatinine, Serum 1.45 mg/dL (0.70-1.30); EST Glomerular Filtration Rate 49 mL/min (>60); Est Glom Filt Rate - Afr Amer 59 mL/min (>60); Glucose 112 mg/dL (74-106); Iron 29 ug/dL (65-175); Iron Binding Capacity,Total 153 ug/dL (250-450); Sodium Level 134 mmol/L (136-145); Thyroid Stim Hormone (TSH) 0.72 uIU/mL (0.358-3.74)
[2023-01-04 14:24] LABS: Urea Nitrogen, Urine 470 mg/dL (NO RANGE EST.); Urine Sodium 84 mmol/L (Not Establ.)
[2023-01-04] MEDS: 0.9% Saline Lock 10 ML Syringe IV (14:48)
[2023-01-04] MEDS: Arthritis Pain Compound 60 CLICK TUBE TOPICAL ×2 (16:33→21:08)
[2023-01-04] MEDS: Carvedilol 3.125 MG TABLET PO (16:58)
--- NOTE | 2023-01-04 19:08 | NURSING ---
Lab called, urine creatinine was collected at 4p and lab has not provided the results. Lab reported they will locate the specimen.
[2023-01-04] MEDS: QUEtiapine 25 MG Tablet PO (19:14)
[2023-01-04] MEDS: Acetaminophen 325 MG Tablet 650 MG PO (19:14)
[2023-01-04 19:30] VITALS: BP 109/45; PULSE 69; RESP 17; TEMP 36.6; O2SAT 99
[2023-01-04] MEDS: Gabapentin 300 MG Capsule PO (21:04)
[2023-01-04] MEDS: Doxazosin 1 MG Tablet 2 MG PO (21:04)
[2023-01-04] MEDS: Ipratropium Bromide 0.06% NASAL SPRAY 2 SPRAY NASAL (21:05)
[2023-01-04] MEDS: Senna/Docusate Sodium 1 Tablet 2 TABLET PO (21:05)
[2023-01-05] MEDS: traMADol 50 MG Tablet PO ×2 (00:20→20:10)
[2023-01-05] MEDS: Finasteride 5 MG Tablet PO (08:17)
[2023-01-05] MEDS: Multivitamins,Therapeutic Tablet 1 TABLET PO (08:17)
[2023-01-05] MEDS: Calcium Carb/Vitamin D 1 TABLET Tablet PO (08:17)
[2023-01-05] MEDS: amLODIPine 2.5 MG Tablet PO (08:17)
[2023-01-05] MEDS: Pantoprazole Sodium 20 MG Tablet PO ×2 (08:17→20:03)
[2023-01-05] MEDS: Carvedilol 3.125 MG TABLET PO ×2 (08:17→17:01)
[2023-01-05] MEDS: Magnesium Chloride 64 MG Delay Rel.Tablet 128 MG PO (08:17)
[2023-01-05] MEDS: Ipratropium Bromide 0.06% NASAL SPRAY 2 SPRAY NASAL ×2 (08:18→20:24)
[2023-01-05] MEDS: Senna/Docusate Sodium 1 Tablet 2 TABLET PO (08:18)
[2023-01-05] MEDS: NYSTATIN 500,000 UNIT/5 ML UDC 500000 UNIT PO ×4 (08:18→20:02)
[2023-01-05] MEDS: Menthol/Lanolin/Calamine/Znox 113 GM Tube 1 APPLIC TOPICAL ×2 (08:24→20:22)
--- NOTE | 2023-01-05 09:15 | NURSING ---
pt refused to do OT this am
[2023-01-05 09:33] VITALS: BP 111/47; PULSE 67; RESP 18; TEMP 36.7; O2SAT 99
--- NOTE | 2023-01-05 11:11 | CASEMGMT ---
Social Work Received call from dtr requesting information on getting HCPOA completed. SW agreed to speak with pt to inquire about desire to complete. If pt confirms, SW will complete prior to DC. Dtr appreciative. Dtr asking further questions on LOS, insurance coverage and potential needs at DC. Dtr stated her family has been beginning discussions on AL for pt and . SW spent extended time educating dtr, whom lives and works as a nurse in [place], on the pt's (and [place] insurance coverage and regulations. SW educated to continued stay is not always a guarantee of payment, thus IDT will also use clinical judgement for meeting criteria for RU stay, including pt compliance and participation in therapy. Educated to precert process for SNF and financial liability for SNF and AL. Educated to [employer] resources at home and skilled HHC for home and AL. SW offered to assist ongoing discharge planning and resources. SW offered to email dtr with explanation information and resources. Dtr agreed, provided email, and expressed appreciation for time and assistance. SW sent secure email to dtr with abbreviated explanation on RU/SNF/AL/[employer] RO[employer]ER insurance coverage. Included community resources, AL list and sent SNF list with quality and resource data that INN with insurance via [employer] to dtr's email as well. Dtr made selections via [facility] for SNFs: [facility], [facility], [facility]. SW and dtr agreed to allow pt to progress further in therapy prior to making referrals. SW will continue to follow for DC planning. Roya Arteaga, JORGE CURRIEW
[2023-01-05] MEDS: Ascorbic Acid 500 MG Tablet 1000 MG PO (11:55)
[2023-01-05] MEDS: Polyethylene Glycol 3350 17 GM PACKET PO (11:55)
[2023-01-05] MEDS: Ferrous Sulfate 325 MG Tablet PO (11:55)
[2023-01-05] MEDS: Arthritis Pain Compound 60 CLICK TUBE TOPICAL ×2 (14:05→20:01)
--- NOTE | 2023-01-05 14:48 | PN_ITS ---
Subjective Subjective Afebrile VSS Maintaining appropriate oxygen saturation on RA Oral intake is good Fluid balance for yesterday was +620. Since midnight it is -870. Discussed with nursing - no problems that need addressed Reviewed the PT/OT/ST notes Medication list reviewed. The fractional excretion of urea was 44.3% which suggests intrinsic renal disease. Serum protein electrophoresis and immunoelectrophoresis are pending. Protein in the urine is elevated. Denies lightheadedness. Complains of shortness of breath with exertion and I have noticed that he does some pursed lip breathing. He was previously a smoker. He has some mild conversational dyspnea. He continues to complain of a cough. He denies chest pain, palpitations, nausea/vomiting/abdominal pain, dysuria and calf pain. He has no pain in the left ribs when taking a deep breath today. Taylor tells me that he takes MiraLAX at home and almost every day he uses a suppository to have a bowel movement. He tells me he does not have a bowel movement unless he has a suppository. He has been doing this for many years. Objective Data Objective Data Vital Signs: Vital Signs Temp Pulse Resp BP Pulse Ox O2 Del Method 98.1 F 67 18 111/47 L 99 Room Air 01/05/23 09:33 01/05/23 09:33 01/05/23 09:33 01/05/23 09:33 01/05/23 09:33 01/05/23 09:33 Oxygen Delivery Method Room Air Weight: 169 lb 12.095 oz Body Mass Index (BMI) 28.3 Intake & Output: Intake and Output for Last 24 Hours 01/03/23 01/04/23 01/05/23 23:59 23:59 23:59 Intake Total 1040 / 1040 1620 / 1620 580 / 580 Output Total 1200 / 1200 1000 / 1450 1450 / 1450 Balance -160 / -160 620 / 170 -870 / -870 Lab / Micro Data 01/01/23 09:20 01/04/23 13:28 Labs: Laboratory Results - last 24 hr 01/04/23 12:03: Ur Total Protein 24 Hr Cancelled, U PEP M-Kwasi 24 Hr Cancelled 01/04/23 16:00: Urine Creatinine 42.70 Physical Exam Const alert Constitutional Narrative: Sometimes cooperative and other times not. The therapists are at times having to cajole him into doing therapy. He has been pleasant with me but, rude/mean to some of the staff. General Appearance: well developed Resp normal respiratory effort, normal air movement and clear to auscultation bilaterally Resp Narrative: Mild conversational dyspnea and when he does take a deep breath after talking he has pursed lips when exhaling. O2 sat on room air is 99%. Effort and Inspection: Negative for tachypneic Cardio regular rate, regular rhythm, no murmurs and no gallops GI normal to inspection, nondistended, normoactive bowel sounds, soft to palpation and non-tender GI Narrative: No guarding with palpation. Extremity no calf tenderness General Extremity: Negative for clubbing or edema Skin Skin Narrative: Some bruising on the UE's due to lab draws and IV's. General Skin Exam: no breakdown Rashes: no rashes Wounds: Negative for wounds noted Neuro CN's II-XII intact bilaterally and no focal motor deficits Neuro Narrative: He has generalized weakness. Psych Psych Narrative: Does not seem anxious or depressed when I am talking with him. He is rude to staff and yells. He gets confused and anxious in the evening. He makes good eye contact with me when we are talking. He is appropriate with me. He has definite ideas how everything should be done and does not seem to appreciate that there are other patients on the unit and we can not always accommodate him at the expense of the other patients. At home he generally sleeps until noon. Therapy sessions for him have been delayed until 9 in the morning for him. His stories seem to change. I never heard him cough while I was in my office and he is just across the tyler.......when I went in to talk with him and asked about the cough......he told me that he coughed all night. Then he coughed, more like throat clearing. He does not cough when eating and drinking. He did not c/o chest pain today. He is somewhat paranoid and thinks we are trying to deceive him. I suspect he confabulates. Assessment & Plan Assessment/Plan (1) Debility: (2) Hemorrhagic cerebrovascular accident (CVA): PLAN: This was ruled out at [facility]. They had MRI dating back to 2013 and the hyperdensity in the Left thalamus was present already. (3) Somatic dysfunction of rib: (4) Fall: QUALIFIERS: Encounter type: subsequent encounter Qualified Code(s): W19.XXXD - Unspecified fall, subsequent encounter PLAN: Etiology? Due to dehydration? Orthostatic hypotension? Low sodium? Orthostatics were negative but, he had already received IV fluids. (5) Hyponatremia: PLAN: Etiology? It may have been due to Lisinopril. This was stopped at admission to the hospital because he had acute on chronic renal failure and the sodium was up to 134 yesterday. The FEUrea is consistent with intrinsic renal disease. (6) H/O normocytic normochromic anemia: PLAN: WHY? Globulins are elevated and he has chronic N/N anemia. MM? (7) Acute kidney injury: PLAN: Resolved with hydration (8) Acute dehydration: PLAN: resolved (9) Hypokalemia: PLAN: resolved (10) Hypertension: QUALIFIERS: Hypertension type: primary hypertension Qualified Code(s): I10 - Essential (primary) hypertension PLAN: well controlled (11) BPH (benign prostatic hyperplasia): QUALIFIERS: Lower urinary tract symptom presence: symptoms present Lower urinary tract symptom detail: urinary retention Qualified Code(s): N40.1 - Benign prostatic hyperplasia with lower urinary tract symptoms; R33.8 - Other retention of urine PLAN: He is was on 5 mg of Doxazosin but this was decreased to 2 mg. (12) GERD (gastroesophageal reflux disease): (13) Restless legs syndrome: PLAN: Nighttime dose of Gabapentin decreased to 300 mg (14) Neuropathic pain: PLAN: He has not c/o pain in his legs and he denies numbness/paresthesias. (15) Chronic renal failure, stage 3a: (16) Hyperglycemia: PLAN: Plan 1. Continue therapy 2. Apply the arthritis pain cream to both shoulders as well as his left lower thoracic and lumbar areas. 3. He likely can not have a BM without a stimulant since he has been taking laxatives daily for years. Will add a suppository every other day. 4. BMP, CBC without differential, magnesium and phosphorus on . 5. Continue intake and outputs and daily weights. Continue to hold Lasix.......with his CRF he made need this to maintain fluid balance. FEUrea was not consistent with dehydration.......it is suggestive of intrinsic renal failure 6. Continue the Seroquel........he slept better last night and the night nurses did not say he was agitated last night. 7. Since the work-up for hemorrhagic stroke at [facility] was negative and the hyperdensity in the thalamus has been there for several years I am more suspicious that he has dementia as the cause of his memory difficulties. TSH and B12 are normal. Imaging of the head was not consistent with normal pressure hydrocephalus. Will check a SARAH to complete the W/U for treatable causes of dementia. If negative will consider starting Aricept. Charges/Coding Visit Charges Inpatient E&M: 77868 Subs Hosp L2
[2023-01-05 19:25] VITALS: BP 118/70; PULSE 67; RESP 16; TEMP 36.7; O2SAT 96
[2023-01-05] MEDS: guaiFENesin 10 ML UDC (200MG/10ML) PO (19:56)
[2023-01-05] MEDS: QUEtiapine 25 MG Tablet PO (20:01)
[2023-01-05] MEDS: Doxazosin 1 MG Tablet 2 MG PO (20:02)
[2023-01-05] MEDS: Gabapentin 300 MG Capsule PO (20:11)
[2023-01-05] MEDS: 0.9% Saline Lock 10 ML Syringe IV (20:23)
[2023-01-05 20:35] VITALS: PULSE 77; RESP 16; O2SAT 95
--- NOTE | 2023-01-05 20:40 | NURSING ---
Pt refused scheduled suppository this hs claiming he had a good bm today and didn't want the suppository.
[2023-01-06] MEDS: traMADol 50 MG Tablet PO (02:13)
[2023-01-06] MEDS: guaiFENesin 10 ML UDC (200MG/10ML) PO ×3 (02:13→17:07)
[2023-01-06 06:00] VITALS: BMI 28.0
--- NOTE | 2023-01-06 06:37 | NURSING ---
Pt was loud and was reminded how to use the call light for needs. Pt was expecting staff to stay with him and sit and talk. Pt slept lightly a couple of times but over all had little sleep. Pt claims he takes Tylenol PM as a sleep aid at home and asked for sleep aid. This RN reminded him that he was started on Seroquel. Pt kicked of SCDs and refused to have them replaced. Can be gruff towards staff and not want to follow instructions to remain safe.
[2023-01-06 07:12] VITALS: BP 102/66; PULSE 72; RESP 18; TEMP 37.1; O2SAT 98
[2023-01-06] MEDS: NYSTATIN 500,000 UNIT/5 ML UDC 500000 UNIT PO ×4 (09:15→20:25)
[2023-01-06] MEDS: Ipratropium Bromide 0.06% NASAL SPRAY 2 SPRAY NASAL (09:15)
[2023-01-06] MEDS: Magnesium Chloride 64 MG Delay Rel.Tablet 128 MG PO (09:15)
[2023-01-06] MEDS: Finasteride 5 MG Tablet PO (09:16)
[2023-01-06] MEDS: Carvedilol 3.125 MG TABLET PO ×2 (09:16→17:07)
[2023-01-06] MEDS: amLODIPine 2.5 MG Tablet PO (09:16)
[2023-01-06] MEDS: Pantoprazole Sodium 20 MG Tablet PO ×2 (09:16→20:27)
[2023-01-06] MEDS: Calcium Carb/Vitamin D 1 TABLET Tablet PO (09:16)
[2023-01-06] MEDS: Multivitamins,Therapeutic Tablet 1 TABLET PO (09:16)
[2023-01-06] MEDS: Menthol/Lanolin/Calamine/Znox 113 GM Tube 1 APPLIC TOPICAL ×2 (09:21→20:24)
[2023-01-06] MEDS: Polyethylene Glycol 3350 17 GM PACKET PO (09:32)
--- NOTE | 2023-01-06 11:30 | PN_ITS ---
Subjective Subjective Afebrile VSS-heart rate has improved with decreasing the dose of Coreg and is currently in the mid 60s to upper 70s. Maintaining appropriate oxygen saturation on RA-98% on room air today Oral intake is good Oral fluid intake is good however the fluid balance yesterday was -880 and overnight it was -190. Furosemide was discontinued after the dose on Wednesday of this week. Discussed with nursing -night nursing states he was awake most of the night and he was loud talkative and complaining a lot. He forgets how to use the call light and just starts yelling help. He has been rude and yelling at the staff. He demanded a cough suppressant last night and then did not want to take it because he did not like the taste. Reviewed the PT/OT/ST notes Medication list reviewed. Atrovent nasal spray does not seem to be helping so will DC. I spoke with his dtr Vianey today and she is an RN. I told her that i ntracerebral bleed and hemorrhagic stroke had been ruled out. I told her I suspect he has dementia with behavioral concerns and that he was started on Seroquel. We also discussed starting Aricept and she was on board with that. Taylor is complaining of a cough. It is non-productive. I have listened for a cough since my office is right across the tyler and he rarely coughs unless someone enters the room. It is more like clearing his throat and then he starts moaning when he takes a breath in. He is also c/o pain in both shoulders and on PE he has limited ROM when trying to lift his arms over his head. He denies SOB and denies lightheadedness. He is not sleeping well at night per the night nurses. Objective Data Objective Data Vital Signs: Vital Signs Temp Pulse Resp BP Pulse Ox O2 Del Method 98.7 F 72 18 102/66 98 Room Air 01/06/23 07:12 01/06/23 07:12 01/06/23 07:12 01/06/23 07:12 01/06/23 07:12 01/06/23 07:12 Oxygen Delivery Method Room Air Weight: 168 lb 6.931 oz Body Mass Index (BMI) 28.0 Intake & Output: Intake and Output for Last 24 Hours 01/04/23 01/05/23 01/06/23 23:59 23:59 23:59 Intake Total 1620 / 1620 1420 / 1540 560 / 560 Output Total 1000 / 1450 2300 / 2600 750 / 750 Balance 620 / 170 -880 / -1060 -190 / -190 Lab / Micro Data 01/07/23 05:29 01/07/23 05:29 Physical Exam Const alert and no apparent distress Constitutional Narrative: clearing his throat, no sputum, not really a cough. He is sometimes cooperative with therapy but, at other times not. He has a way to do everything and a time he wants to do things and he is not flexible. Resp normal respiratory effort, normal air movement and clear to auscultation bilaterally Resp Narrative: Pulse ox is 95-99% on RA. RR is 16-18 consistently. Effort and Inspection: Negative for tachypneic, labored or uses accessory muscles Auscultation: diminished lung sounds bilateral (Mildly diminished posterior in the bases. ) Cardio regular rate, regular rhythm, no murmurs and no gallops GI normal to inspection, nondistended, normoactive bowel sounds, soft to palpation and non-tender GI Narrative: No guarding with palpation. Having regular BM's. Inspection: Negative for abdominal distention Extremity no calf tenderness General Extremity: Negative for clubbing or edema Skin General Skin Exam: no breakdown Rashes: no rashes Neuro CN's II-XII intact bilaterally and no focal motor deficits Psych Psych Narrative: seems anxious at times. Assessment & Plan Assessment/Plan (1) Debility: (2) Hemorrhagic cerebrovascular accident (CVA): PLAN: ruled out (3) Somatic dysfunction of rib: (4) Fall: QUALIFIERS: Encounter type: subsequent encounter Qualified Code(s): W19.XXXD - Unspecified fall, subsequent encounter (5) Hyponatremia: (6) H/O normocytic normochromic anemia: (7) Acute kidney injury: (8) Acute dehydration: (9) Hypokalemia: (10) Hypertension: QUALIFIERS: Hypertension type: primary hypertension Qualified Code(s): I10 - Essential (primary) hypertension (11) BPH (benign prostatic hyperplasia): QUALIFIERS: Lower urinary tract symptom presence: symptoms present Lower urinary tract symptom detail: urinary retention Qualified Code(s): N40.1 - Benign prostatic hyperplasia with lower urinary tract symptoms; R33.8 - Other retention of urine (12) GERD (gastroesophageal reflux disease): (13) Restless legs syndrome: (14) Neuropathic pain: (15) Chronic renal failure, stage 3a: (16) Hyperglycemia: (17) Dementia: QUALIFIERS: Dementia type: unspecified type PLAN: Plan 1. Continue therapy 2. Discontinue Atrovent nasal spray 3. Continue Robitussin-DM, although I suspect he is making himself cough. Lungs are CTA 4. Start Seroquel 12.5 mg every morning and increase the at bedtime dose to 37.5 mg. 5. Start Aricept 5 mg p.o. daily 6. Lab ordered for tomorrow 7. Recheck orthostatics in the a.m. 8. Continue to hold Lasix 9. Decrease the Tramadol to 25 mg Q 12H PRN pain 4-10 Charges/Coding Visit Charges Inpatient E&M: 27968 Subs Hosp L2
[2023-01-06] MEDS: Ferrous Sulfate 325 MG Tablet PO (11:56)
[2023-01-06] MEDS: Ascorbic Acid 500 MG Tablet 1000 MG PO (11:57)
[2023-01-06] MEDS: Arthritis Pain Compound 60 CLICK TUBE TOPICAL ×2 (13:53→20:24)
[2023-01-06 15:08] LABS: Albumin 3.3 g/dL (2.9-4.4); Alpha-1-Globulins 0.3 g/dL (0.0-0.4); Alpha-2-Globulins 1.1 g/dL (0.4-1.0); Gamma Globulin 1.2 g/dL (0.4-1.8); Immunoglobulin A 188 mg/dL (61-437); Immunoglobulin G 1255 mg/dL (603-1613); Immunoglobulin M 259 mg/dL (15-143); PROEL- TOTAL PROTEIN 6.9 g/dL (6.0-8.5)
--- NOTE | 2023-01-06 15:29 | CHAPLAIN ---
Type of Pastoral Visit _x__ Initial Visit ___ Follow-up Visit ___ On-call Visit ___ General Patient Visit ___ Spiritual Assessment ___ Family Conference ___ Bereavement ___ Rapid Response ___ Code Blue ___ Other (describe below) Pastoral Care Referral From _x__ Patient ___ Family ___ Nurse ___ Physician ___ Recyclable Materials Sorter ___ Rivet Spinner ___ Other (describe below) Sacrament/Intervention _x__ Active listening ___ Anointing ___ Yarsani ___ Bereavement ___ Communion ___ Shaye exploration ___ ___ Life review _x__ Prayer ___ Reconciliation ___ Sacrament of Sick _x__ Supportive presence ___ Wedding ___ Other (describe below) Pastoral Comments patient was welcoming but states early on in conversation that he has not been able to sleep, has had an ongoing cough, and wants something to improve his situation; pt continues to cough in the visit so this hydrometer finisher offered to limit the conversation to which the pt agreed; pt does speak of his family support and of his daily prayers; pt is of the [place]ze shaye and accepted prayer and presence for his support today
--- NOTE | 2023-01-06 15:49 | CASEMGMT ---
Social Work Met with patient to inquire about completing advanced directives. Pt agreeable and wishing to name son then Lalo boothe, as HCPOA. Advanced directives completed. Original and copy provided to pt. Copies placed on chart. Roya Arteaga ,SCRAP HOIST OPERATOR INSTRUMENT ENGINEER
[2023-01-06 19:18] VITALS: BP 110/67; PULSE 60; RESP 16; TEMP 36.7; O2SAT 98
[2023-01-06] MEDS: Gabapentin 300 MG Capsule PO (20:19)
[2023-01-06] MEDS: Acetaminophen 325 MG Tablet 650 MG PO (20:19)
[2023-01-06] MEDS: QUEtiapine 25 MG Tablet 37.5 MG PO (20:22)
[2023-01-06] MEDS: Donepezil HCl 5 MG Tablet PO (20:23)
[2023-01-06] MEDS: Doxazosin 1 MG Tablet 2 MG PO (20:25)
[2023-01-06 22:00] VITALS: PULSE 65; RESP 16; O2SAT 98
--- NOTE | 2023-01-07 04:03 | NURSING ---
Pt resting comfortably in bed this hs. Minimal coughing while asleep. Pt has not c/o pain as previous night. When awake, pt is spitting up clear phlegm and coughing loudly. Pt much less restless than previous night. Pt looks comfortable at rest and has not called out for staff as much this shift.
[2023-01-07] MEDS: Acetaminophen 325 MG Tablet 650 MG PO ×2 (05:08→21:19)
[2023-01-07] MEDS: 0.9% Saline Lock 10 ML Syringe IV (05:08)
[2023-01-07] MEDS: Arthritis Pain Compound 60 CLICK TUBE TOPICAL ×3 (05:09→19:55)
[2023-01-07] MEDS: guaiFENesin 10 ML UDC (200MG/10ML) PO (05:15)
[2023-01-07 05:35] LABS: Hematocrit 33.7 % (40-54); Hemoglobin 11.4 g/dL (13.0-16.5); Mean Corp Hgb Conc 33.8 g/dL (32-36); Mean Corpuscular Hgb 33.8 pg (27.0-32.0); Platelet Count 288 K/mm3 (150-450); RBC Distribution Width CV 13.5 % (11.6-14.6); RBC Distribution Width SD 49.8 fl (35.1-43.9); Red Blood Count 3.37 M/mm3 (4.6-6.2); White Blood Count 10.3 K/mm3 (4.4-11.0)
[2023-01-07 05:43] VITALS: BMI 27.6
[2023-01-07 05:57] LABS: Anion Gap 4 (5-15); BUN 25 mg/dL (7-18); BUN/Creat Ratio 20.7 RATIO (10-20); Calcium,Total 9.2 mg/dL (8.5-10.1); Chloride 105 mmol/L (98-107); Creatinine, Serum 1.21 mg/dL (0.70-1.30); EST Glomerular Filtration Rate 61 mL/min (>60); Est Glom Filt Rate - Afr Amer 73 mL/min (>60); Estimated Creatinine Clearance 38.83 ml/min; Glucose 95 mg/dL (74-106); Magnesium 2.4 mg/dL (1.6-2.6); Potassium 4.1 mmol/L (3.5-5.1); Sodium Level 138 mmol/L (136-145)
[2023-01-07 06:04] LABS: Phosphorus 2.9 mg/dL (2.5-4.9)
[2023-01-07] MEDS: QUEtiapine 25 MG Tablet 12.5 MG PO (06:52)
[2023-01-07 07:30] VITALS: BP 125/66; PULSE 65; RESP 16; TEMP 35.9; O2SAT 94
[2023-01-07 07:38] LABS: Hemoglobin A1c 5.5 % (3.8-5.6)
[2023-01-07] MEDS: Magnesium Chloride 64 MG Delay Rel.Tablet 128 MG PO (07:53)
[2023-01-07] MEDS: Calcium Carb/Vitamin D 1 TABLET Tablet PO (07:54)
[2023-01-07] MEDS: Multivitamins,Therapeutic Tablet 1 TABLET PO (07:54)
[2023-01-07] MEDS: Carvedilol 3.125 MG TABLET PO ×2 (07:55→16:34)
[2023-01-07] MEDS: Finasteride 5 MG Tablet PO (07:56)
[2023-01-07] MEDS: Menthol/Lanolin/Calamine/Znox 113 GM Tube 1 APPLIC TOPICAL ×2 (07:56→19:57)
[2023-01-07] MEDS: amLODIPine 2.5 MG Tablet PO (07:56)
[2023-01-07] MEDS: NYSTATIN 500,000 UNIT/5 ML UDC 500000 UNIT PO ×4 (07:56→19:58)
[2023-01-07] MEDS: Pantoprazole Sodium 20 MG Tablet PO ×2 (07:57→19:58)
[2023-01-07] MEDS: Polyethylene Glycol 3350 17 GM PACKET PO (08:03)
--- NOTE | 2023-01-07 09:05 | CASEMGMT ---
Social Work IDT discussed patient's progress in therapy and recommending beginning referrals to SNFs for transition. SW placed referrals via [facility] to dtr's choices - [facility], [facility], [facility]. Will continue to follow. Roya Arteaga, ELECTRONIC PARTS SALESPERSON SEAL SKINNER
--- NOTE | 2023-01-07 09:58 | EKG12_ITS ---
Test Reason : SOB Blood Pressure : / mmHG Vent. Rate : 067 BPM Atrial Rate : 067 BPM P-R Int : 218 ms QRS Dur : 064 ms QT Int : 374 ms P-R-T Axes : 068 067 072 degrees QTc Int : 395 ms Sinus rhythm with 1st degree A-V block with Premature atrial complexes Otherwise normal ECG No previous ECGs available Confirmed by EDNA SOUSA, DG ([id number]), newspaper managing editor [place] ([id number]) on 01/08/2023 1:40:34 PM Referred By: Anuj Tao Confirmed By:DG BISHOP MD
--- NOTE | 2023-01-07 10:19 | PN_ITS ---
Subjective Subjective afebrile VSS - orthostatics have not been done yet today......will reorder. Maintaining appropriate oxygen saturation on RA Oral intake is good. Discussed with nursing - He fell asleep at 10PM and slept well through the night. Rare cough when sleeping. Taylor tells me that he did not sleep well and was up most of the night coughing. Reviewed the PT/OT/ST notes Medication list reviewed. All lab drawn this morning was personally reviewed. The white blood cell count is normal. Hemoglobin is stable at 11.4 and platelets are 288,000. Sodium today is 138 and the potassium is 4.1. The BUN has decreased from 36-25. Creatinine today is 1.21 with an estimated creatinine clearance of 38.83 and a GFR of 61. Hemoglobin A1c is 5.5 and calcium, magnesium and phosphorus are all within normal limits. SPE/IEF shows a IgG monoclonal protein with kappa light chain specificity. AG is low at 4. Taylor did not cough while I was sitting in my office but, when I went into his room he started with a harsh clearing of his throat. He has no conversational dyspnea and he is not tachypneic. When I had him take deep breaths and listened anteriorly he started grunting. He denied CP when I was in his room. He is c/o back pain. His shoulder pain is better today and he is not c/o of this. He denies lightheadedness, cephalgia, trouble swallowing, N/V/abd pain, constipation, diarrhea, calf pain and dysuria. Objective Data Objective Data Vital Signs: Vital Signs Temp Pulse Resp BP Pulse Ox O2 Del Method 96.7 F L 65 16 125/66 H 94 Room Air 01/07/23 07:30 01/07/23 07:30 01/07/23 07:30 01/07/23 07:30 01/07/23 07:30 01/07/23 07:30 Oxygen Delivery Method Room Air Weight: 165 lb 12.602 oz Body Mass Index (BMI) 27.6 Intake & Output: Intake and Output for Last 24 Hours 01/05/23 01/06/23 01/07/23 23:59 23:59 23:59 Intake Total 1420 / 1540 1520 / 1520 120 / 120 Output Total 2300 / 2600 1500 / 1500 825 / 825 Balance -880 / -1060 -705 / -705 Lab / Micro Data 01/07/23 05:29 01/07/23 05:29 Labs: Laboratory Results - last 24 hr 01/04/23 13:28: Total Protein (PEP) 6.9, Globulin 3.6, IgG 1255, IgA 188, IgM 259 H, Immunofixation Screen Comment H, Albumin (GERDA) 3.3, Albumin/Globulin (GERDA) 1.0, Dvuog-0-Blxjoujjg GERDA 0.3, Gqaom-1-Mkxpkajtn GERDA 1.1 H, Beta-G lobulins (GERDA) 0.9, Gamma Globulins (GERDA) 1.2, GERDA M-Kwasi 0.4 H, GERDA Comments Comment 01/07/23 05:29: WBC 10.3, RBC 3.37 L, Hgb 11.4 L, Hct 33.7 L, MCV 100.0 H, MCH 33.8 H, MCHC 33.8, RDW Std Deviation 49.8 H, RDW Coeff of Donald 13.5, Plt Count 288, MPV 9.0, Sodium 138, Potassium 4.1, Chloride 105, Carbon Dioxide 29.0, Anion Gap 4 L, BUN 25 H, Creatinine 1.21, Estim Creat Clear Calc 38.83, Est GFR (MDRD) Af Amer 73, Est GFR (MDRD) Non-Af 61, BUN/Creatinine Ratio 20.7 H, Glucose 95, Hemoglobin A1c 5.5, Calcium 9.2, Phosphorus 2.9, Magnesium 2.4 Physical Exam Const alert and no apparent distress Constitutional Narrative: Sitting in the recliner and looks comfortable. HEENT moist oral mucous membranes HEENT Narrative: No thrush Resp normal respiratory effort, normal air movement and clear to auscultation bilaterally Resp Narrative: No conversational dyspnea. Effort and Inspection: Negative for tachypneic, respiratory distress, labored or uses accessory muscles GI normal to inspection, nondistended, normoactive bowel sounds, soft to palpation and non-tender GI Narrative: No guarding with palpation. Inspection: Negative for abdominal distention Extremity no calf tenderness General Extremity: Negative for clubbing or edema Skin General Skin Exam: no breakdown Rashes: no rashes Wounds: Negative for wounds noted Assessment & Plan Assessment/Plan (1) Debility: (2) Somatic dysfunction of rib: (3) Fall: QUALIFIERS: Encounter type: subsequent encounter Qualified Code(s ): W19.XXXD - Unspecified fall, subsequent encounter (4) H/O normocytic normochromic anemia: (5) Hypertension: QUALIFIERS: Hypertension type: primary hypertension Qualified Code(s): I10 - Essential (primary) hypertension (6) Restless legs syndrome: (7) Neuropathic pain: (8) Chronic renal failure, stage 3a: PLAN: could this be related to MM? 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 Taylor has been refusing therapy and when he does participate it is usually not for the entire time he is supposed to be there. He is very set in his ways and wants to control what and when he does things. 2. Behavior/agitation at night/insomnia are better with the adjustment in the dose of Seroquel yesterday. He is not drowsy today and is not yelling. He is more cooperative than yesterday. Will continue with the current dose of Seroquel 3. EKG today due to c/o L chest pain to his family. 4. PA and LAT CXR. I reviewed the CXR done at admission and the R hemidiaphragm is significantly elevated due to large loop of colon behind the liver. 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 5. Will need to follow up with oncology post discharge from rehab. 6. Family would like him to go to SNF following rehab. He is not consistently getting 3 hours of therapy in daily. 7. I believe that he may be making himself cough.....it only happens when someone is in his room and it is not a typical cough........attention seeking? 8. check an ammonia level today and albumin and ionized calcium Charges/Coding Visit Charges Inpatient E&M: 78979 Subs Hosp L2
[2023-01-07 10:20] VITALS: BP 112/56; BP 113/51; BP 116/68; PULSE 66
[2023-01-07 11:31] LABS: Albumin, Serum 3.2 g/dL (3.2-5.0)
--- NOTE | 2023-01-07 12:10 | RAD_ITS ---
STUDY: X-RAY CHEST REASON FOR EXAM: Male, 87 years old. Cough. TECHNIQUE: Frontal and lateral views of the chest. COMPARISON: Chest dated December 28, 2022. FINDINGS: Stable cardiomegaly, marked aortic tortuosity with calcification, prominent central pulmonary arteries and hyperinflation. Elevation of the right hemidiaphragm with minimal right middle and lower lobe atelectasis, relatively unchanged. Diffuse thoracic osteopenia and spondylosis No abnormality of the visualized soft tissue structures of the upper abdomen. RAD/Chest PA and Lateral IMPRESSION: Stable cardiomegaly, aortic tortuosity and hyperinflation. No acute or active cardiopulmonary disease Electronically Signed: Jose Horta MD at 12:46 EDT ,
[2023-01-07 13:28] LABS: Ionized Calcium 4.94 mg/dL (4.36-5.20)
[2023-01-07] MEDS: Ferrous Sulfate 325 MG Tablet PO (13:28)
[2023-01-07] MEDS: Ascorbic Acid 500 MG Tablet 1000 MG PO (13:28)
[2023-01-07 14:10] LABS: Albumin, Ur 12.9 % (.); Alpha-1-Globulin, Ur 1.2 % (.); Alpha-2-Globulins, Ur 14.8 % (.); Beta Globulin, Ur 45.6 % (.); Gamma Globulin, Ur 25.5 % (.); M-Spike, Ur % 28.5 % (Not Observed); Total Protein, Ur 10.9 mg/dL (Not Estab.)
[2023-01-07] MEDS: Benzonatate 100 MG Capsule PO ×2 (15:23→21:19)
[2023-01-07 19:50] VITALS: BP 110/56; PULSE 67; RESP 16; TEMP 36.6; O2SAT 97
[2023-01-07] MEDS: Donepezil HCl 5 MG Tablet PO (19:55)
[2023-01-07] MEDS: Doxazosin 1 MG Tablet 2 MG PO (19:55)
[2023-01-07] MEDS: Gabapentin 300 MG Capsule PO (19:55)
[2023-01-07] MEDS: Hydrocortisone 25 MG Suppository RC (19:56)
[2023-01-07] MEDS: QUEtiapine 25 MG Tablet 37.5 MG PO (19:56)
[2023-01-08] MEDS: Arthritis Pain Compound 60 CLICK TUBE TOPICAL ×3 (05:17→19:56)
[2023-01-08] MEDS: Benzonatate 100 MG Capsule PO ×2 (05:48→20:00)
[2023-01-08] MEDS: QUEtiapine 25 MG Tablet 12.5 MG PO (05:48)
[2023-01-08] MEDS: traMADol 50 MG Tablet 25 MG PO ×2 (05:49→19:59)
[2023-01-08 06:00] VITALS: BMI 27.3
[2023-01-08] MEDS: Polyethylene Glycol 3350 17 GM PACKET PO (08:06)
[2023-01-08] MEDS: Magnesium Chloride 64 MG Delay Rel.Tablet 128 MG PO (08:06)
[2023-01-08] MEDS: NYSTATIN 500,000 UNIT/5 ML UDC 500000 UNIT PO ×3 (08:06→19:58)
[2023-01-08] MEDS: amLODIPine 2.5 MG Tablet PO (08:07)
[2023-01-08] MEDS: Calcium Carb/Vitamin D 1 TABLET Tablet PO (08:07)
[2023-01-08] MEDS: Carvedilol 3.125 MG TABLET PO ×2 (08:07→16:45)
[2023-01-08] MEDS: Pantoprazole Sodium 20 MG Tablet PO ×2 (08:07→19:59)
[2023-01-08] MEDS: Multivitamins,Therapeutic Tablet 1 TABLET PO (08:07)
[2023-01-08] MEDS: Finasteride 5 MG Tablet PO (08:07)
[2023-01-08] MEDS: Menthol/Lanolin/Calamine/Znox 113 GM Tube 1 APPLIC TOPICAL ×2 (08:08→19:56)
[2023-01-08 08:43] VITALS: BP 109/55; PULSE 53; RESP 16; TEMP 36.1; O2SAT 98
[2023-01-08] MEDS: Ferrous Sulfate 325 MG Tablet PO (12:00)
[2023-01-08] MEDS: Ascorbic Acid 500 MG Tablet 1000 MG PO (12:00)
[2023-01-08 19:28] VITALS: BP 113/52; PULSE 96; RESP 17; TEMP 36.2; O2SAT 98
[2023-01-08] MEDS: QUEtiapine 25 MG Tablet 37.5 MG PO (19:54)
[2023-01-08] MEDS: Donepezil HCl 5 MG Tablet PO (19:55)
[2023-01-08] MEDS: Doxazosin 1 MG Tablet 2 MG PO (19:57)
[2023-01-08] MEDS: Gabapentin 300 MG Capsule PO (19:58)
[2023-01-08] MEDS: Carbamide Peroxide 15 ML Bottle 5 DRP OTIC (20:03)
[2023-01-09 03:54] VITALS: BP 138/47; PULSE 74; RESP 18; TEMP 36.9; O2SAT 95
--- NOTE | 2023-01-09 03:54 | NURSING ---
Pt noted with complaint of Left side chest pain, pt denies feeling SOB, persistent cough noted, no referred pain noted. pt repositioned from prone to supine at this time with HOB elevated. pt states pain is less. VSS. Hospitalist physician contacted, troponin and EKG ordered at this time. will monitor pt. RT notified of new orders.
--- NOTE | 2023-01-09 03:59 | EKG12_ITS ---
Test Reason : CP Blood Pressure : / mmHG Vent. Rate : 071 BPM Atrial Rate : 071 BPM P-R Int : 218 ms QRS Dur : 056 ms QT Int : 360 ms P-R-T Axes : 052 030 034 degrees QTc Int : 391 ms Sinus rhythm with 1st degree A-V block with Premature supraventricular complexes Otherwise normal ECG When compared with ECG of 07-JAN-2023 10:57, No significant change was found Confirmed by EDNA SOUSA, DG ([id number]), food expeditor [place] ([id number]) on 01/12/2023 9:43:39 AM Referred By: Anuj Tao Confirmed By:DG BISHOP MD
[2023-01-09] MEDS: Arthritis Pain Compound 60 CLICK TUBE TOPICAL ×3 (04:44→21:24)
[2023-01-09 04:45] LABS: Troponin-I HS 13 pg/mL (3.0-78.0)
[2023-01-09] MEDS: Benzonatate 100 MG Capsule PO ×2 (04:47→21:23)
[2023-01-09 07:00] VITALS: BMI 27.5
[2023-01-09] MEDS: Magnesium Chloride 64 MG Delay Rel.Tablet 128 MG PO (08:47)
[2023-01-09] MEDS: QUEtiapine 25 MG Tablet 12.5 MG PO (08:47)
[2023-01-09] MEDS: Carvedilol 3.125 MG TABLET PO ×2 (08:47→17:49)
[2023-01-09] MEDS: Polyethylene Glycol 3350 17 GM PACKET PO (08:47)
[2023-01-09] MEDS: Finasteride 5 MG Tablet PO (08:47)
[2023-01-09] MEDS: NYSTATIN 500,000 UNIT/5 ML UDC 500000 UNIT PO (08:47)
[2023-01-09] MEDS: Calcium Carb/Vitamin D 1 TABLET Tablet PO (08:47)
[2023-01-09] MEDS: amLODIPine 2.5 MG Tablet PO (08:47)
[2023-01-09] MEDS: Pantoprazole Sodium 20 MG Tablet PO ×2 (08:47→21:24)
[2023-01-09] MEDS: Multivitamins,Therapeutic Tablet 1 TABLET PO (08:47)
[2023-01-09] MEDS: Menthol/Lanolin/Calamine/Znox 113 GM Tube 1 APPLIC TOPICAL (08:53)
[2023-01-09] MEDS: Ascorbic Acid 500 MG Tablet 1000 MG PO (11:57)
[2023-01-09] MEDS: Ferrous Sulfate 325 MG Tablet PO (11:57)
[2023-01-09 19:13] VITALS: BP 104/60; PULSE 70; RESP 18; TEMP 35.9; O2SAT 96
[2023-01-09] MEDS: Doxazosin 1 MG Tablet 2 MG PO (21:23)
[2023-01-09] MEDS: Gabapentin 300 MG Capsule PO (21:23)
[2023-01-09] MEDS: Donepezil HCl 5 MG Tablet PO (21:24)
[2023-01-09] MEDS: traMADol 50 MG Tablet 25 MG PO (21:24)
[2023-01-09] MEDS: QUEtiapine 25 MG Tablet 50 MG PO (21:24)
[2023-01-09] MEDS: Carbamide Peroxide 15 ML Bottle 5 DRP OTIC (21:28)
[2023-01-10 09:00] VITALS: BP 110/56; PULSE 66; RESP 18; TEMP 35.8; O2SAT 97
[2023-01-10] MEDS: Acetaminophen 325 MG Tablet 650 MG PO (09:12)
[2023-01-10] MEDS: Calcium Carb/Vitamin D 1 TABLET Tablet PO (09:12)
[2023-01-10] MEDS: QUEtiapine 25 MG Tablet 12.5 MG PO (09:12)
[2023-01-10] MEDS: Magnesium Chloride 64 MG Delay Rel.Tablet 128 MG PO (09:13)
[2023-01-10] MEDS: Pantoprazole Sodium 20 MG Tablet PO ×2 (09:13→22:55)
[2023-01-10] MEDS: amLODIPine 2.5 MG Tablet PO (09:13)
[2023-01-10] MEDS: Carvedilol 3.125 MG TABLET PO ×2 (09:13→17:08)
[2023-01-10] MEDS: Multivitamins,Therapeutic Tablet 1 TABLET PO (09:13)
[2023-01-10] MEDS: Finasteride 5 MG Tablet PO (09:14)
[2023-01-10] MEDS: Polyethylene Glycol 3350 17 GM PACKET PO (09:17)
[2023-01-10 09:20] VITALS: BMI 27.5
[2023-01-10] MEDS: Menthol/Lanolin/Calamine/Znox 113 GM Tube 1 APPLIC TOPICAL ×2 (09:26→22:58)
[2023-01-10] MEDS: Ferrous Sulfate 325 MG Tablet PO (12:42)
[2023-01-10] MEDS: Ascorbic Acid 500 MG Tablet 1000 MG PO (12:42)
--- NOTE | 2023-01-10 19:00 | NURSING ---
Patient reported to [facility] that he broke his glasses. Glasses had lens out and [facility] put the screw and lens in a bag by his window sill and told patient to call his family to have fixed.
[2023-01-10 19:02] VITALS: BP 122/52; PULSE 58; RESP 16; TEMP 36.7; O2SAT 98
[2023-01-10] MEDS: Arthritis Pain Compound 60 CLICK TUBE TOPICAL (22:50)
[2023-01-10] MEDS: Gabapentin 300 MG Capsule PO (22:51)
[2023-01-10] MEDS: traMADol 50 MG Tablet 25 MG PO (22:51)
[2023-01-10] MEDS: QUEtiapine 25 MG Tablet 50 MG PO (22:53)
[2023-01-10] MEDS: Doxazosin 1 MG Tablet 2 MG PO (22:54)
[2023-01-10] MEDS: Donepezil HCl 5 MG Tablet PO (22:54)
[2023-01-11 06:00] VITALS: BMI 28.1
[2023-01-11 07:46] VITALS: BP 128/54; PULSE 69; RESP 20; TEMP 36.6; O2SAT 100
[2023-01-11] MEDS: Calcium Carb/Vitamin D 1 TABLET Tablet PO (07:47)
[2023-01-11] MEDS: QUEtiapine 25 MG Tablet 12.5 MG PO (07:48)
[2023-01-11] MEDS: Carvedilol 3.125 MG TABLET PO ×2 (07:48→18:39)
[2023-01-11] MEDS: amLODIPine 2.5 MG Tablet PO (07:48)
[2023-01-11] MEDS: Finasteride 5 MG Tablet PO (07:48)
[2023-01-11] MEDS: Magnesium Chloride 64 MG Delay Rel.Tablet 128 MG PO (07:48)
[2023-01-11] MEDS: Multivitamins,Therapeutic Tablet 1 TABLET PO (07:48)
[2023-01-11] MEDS: Pantoprazole Sodium 20 MG Tablet PO (07:48)
[2023-01-11] MEDS: Menthol/Lanolin/Calamine/Znox 113 GM Tube 1 APPLIC TOPICAL ×2 (07:50→21:24)
[2023-01-11] MEDS: Polyethylene Glycol 3350 17 GM PACKET PO (07:51)
--- NOTE | 2023-01-11 11:06 | PN_ITS ---
Subjective Subjective Taylor was seen on TEAM rounds today. His , son and dtr Gladys were present in the room and his dtr Piedad participated by phone. Afebrile VSS-blood pressure is within goal. Heart has ranged from 58-78 over the past 2 days. Maintaining appropriate oxygen saturation on RA - 97 100% on room air Oral intake is good for both fluids and nutrition. Discussed with nursing - He did not sleep well last night. Seroquel is ordered for 21 hundred and he did not get the medication until 22:53. It was reported t o me that he was agitated and on his call light frequently. Reviewed the PT/OT/ST notes Medication list reviewed. He has had troponins done twice at night for complaints of chest pain. Troponins were negative and the EKG showed no ST elevation or significant ST segment depression. Denies cephalgia, Lightheadedness, N/V/abd pain, Objective Data Objective Data Vital Signs: Vital Signs Temp Pulse Resp BP Pulse Ox O2 Del Method 97.9 F 69 20 H 128/54 H 100 Room Air 01/11/23 07:46 01/11/23 07:46 01/11/23 07:46 01/11/23 07:46 01/11/23 07:46 01/11/23 07:46 Oxygen Delivery Method Room Air Weight: 169 lb 1.513 oz Body Mass Index (BMI) 28.1 Intake & Output: Intake and Output for Last 24 Hours 01/09/23 01/10/23 01/11/23 23:59 23:59 23:59 Intake Total 2520 / 2520 1880 / 2180 840 / 840 Output Total 1000 / 1000 1600 / 2000 775 / 775 Balance 1520 / 1520 280 / 180 65 / 65 Lab / Micro Data 01/07/23 05:29 01/07/23 05:29 Physical Exam Const alert General Appearance: cooperative and well developed HEENT normocephalic HEENT Narrative: R ear is partially occluded with dry cerumen but I can see the TM and it is normal without redness or perforation. The left ear is also partially occluded. Mouth: dry mucous membranes Resp normal respiratory effort, normal air movement and clear to auscultation bilaterally Effort and Inspection: Negative for tachypneic or labored Cardio regular rate, S1 normal heart sound, S2 normal heart sound, no rub and no gallops Cardio Narrative: He is currently in a bigeminal rhythm and briefly it was irreg irreg. GI normal to inspection, nondistended, normoactive bowel sounds, soft to palpation and non-tender GI Narrative: No guarding with palpation Extremity no calf tenderness General Extremity: Negative for edema Skin General Skin Exam: no breakdown Rashes: no rashes Neuro CN's II-XII intact bilaterally, no focal motor deficits and no sensory deficits noted Speech: speech normal Psych cooperative and affect normal Appearance: appropriate Attitude: No agitated Activity / Motor Behavior: Negative for restless Assessment & Plan Assessment/Plan (1) Debility: (2) Hemorrhagic cerebrovascular accident (CVA): (3) Acute dehydration: (4) Acute kidney injury: (5) Bradycardia: (6) Dementia: QUALIFIERS: Dementia type: unspecified type (7) Monoclonal gammopathy: (8) H/O normocytic normochromic anemia: (9) Fall: QUALIFIERS: Encounter type: subsequent encounter Qualified Code(s): W19.XXXD - Unspecified fall, subsequent encounter (10) GERD (gastroesophageal reflux disease): (11) Hypertension: QUALIFIERS: Hypertension type: primary hypertension Qualified Code(s): I10 - Essential (primary) hypertension (12) Irregular cardiac rhythm: (13) Cerumen in auditory canal on examination: PLAN: Plan 1. Continue therapy 2. CBC, mag and BMP in the AM 3. He has refused Debrox ear drops and he tells me that he cleaned his ears out with Q tips today. 4. EKG now and hopefully we can catch the dysrhythmia. Denies palpitations and lightheadedness. 5. BP is well controlled on the current regimen and he has no concerning bradycardia and the HR does increase with exercise. He denies lightheadedness. 6. Waiting to hear about pre-cert for transfer to [facility]. 7. 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 8. I reinforced with him that he should not use Q-tips and he should take the Debrox to soften the wax.....may benefit from ear candling 9. Will try splitting the Seroquel at night and give 25 mg at 7 PM and another 25mg at 2100 10. Add Trazodone at HS for insomnia. Charges/Coding Visit Charges Inpatient E&M: 55564 Subs Hosp L2
[2023-01-11] MEDS: Ascorbic Acid 500 MG Tablet 1000 MG PO (11:52)
[2023-01-11] MEDS: Ferrous Sulfate 325 MG Tablet PO (11:52)
--- NOTE | 2023-01-11 12:44 | CASEMGMT ---
Social Work IDT met with patient and multiple family members for Team meeting. Discussed patient's progress in PT/OT/ST/SN. Educated to [facility] insurance with NRD 01/06 and continued stay is not guaranteed with each review. IDT is recommending transfer to SNF for lower level of therapy and receiving 28/12 care. cannot care for pt at home. [facility] can accept and will submit for precert. Family and pt in agreement with transition. SW notified [facility] to submit precert. Provided [facility] with updated clinicals. Will continue to follow. Roya Arteaga, [employer] HARVEST MACHINE OPERATOR
[2023-01-11] MEDS: Acetaminophen 325 MG Tablet 650 MG PO (14:14)
[2023-01-11] MEDS: Arthritis Pain Compound 60 CLICK TUBE TOPICAL ×2 (14:18→21:22)
--- NOTE | 2023-01-11 14:47 | CASEMGMT ---
Social Work Received approval from anil for pt to transfer to [facility]. SW updated pt and phoned dtr, Sindy. Family to transport. 7000 started. Plan: DC 01/12 to [facility], skilled JORGE Lafleur
--- NOTE | 2023-01-11 15:08 | EKG12_ITS ---
Test Reason : IRREG Blood Pressure : / mmHG Vent. Rate : 077 BPM Atrial Rate : 077 BPM P-R Int : 000 ms QRS Dur : 066 ms QT Int : 372 ms P-R-T Axes : 000 036 044 degrees QTc Int : 420 ms SINUS WITH PACS Abnormal ECG When compared with ECG of 09-JAN-2023 04:14, MANUAL COMPARISON REQUIRED, DATA IS UNCONFIRMED Confirmed by ROBERTO SOUSA, LINH ([id number]), desk editor STONE LIMON ([id number]) on 01/18/2023 9:16:41 AM Referred By: Anuj Tao Confirmed By:KATHY MEJIA MD
--- NOTE | 2023-01-11 15:36 | PCM.TXEXTCAR ---
Diet Diet Order/Speech Therapy: 12/31/22 14:41 Diet: Regular - General Routine Orders/Code Status Enema Type: Fleetz Enema Frequency: Daily PRN Suppository Type: Dulcolax 10mg Suppository Frequency: Daily PRN O2 Liters per Minute: 1-2 O2 Frequency: PRN Keep PO Greater than or Equal to (%): 90 Code Status: Full Code Wound(s) left AC: Wound Type: Skin Tear Therapies Weight Bearing: Full weight bearing Physical Therapy: Eval and Treat Occupational Therapy: Eval and Treat Speech Therapy: Eval and Treat Problem/Diagnosis (1) Debility: Status: Acute Code(s): R53.81 - Other malaise Comment: due to generalized weakness and deconditioning with multiple falls over the past year. (2) Hemorrhagic cerebrovascular accident (CVA): Status: Ruled-out Code(s): I61.9 - Nontraumatic intracerebral hemorrhage, unspecified Comment: This was ruled out. Initial CT/MRI of the head showed a hyperdensity in the thalamus which was though to be a intracerebral bleed/hemorrhagic stroke however the previous hospital was able to compared to a MRI done in 2013 which showed the same hyperdensity and it has not changed in the past 9 years. (3) Acute dehydration: Status: Resolved Code(s): E86.0 - Dehydration Comment: He is now eating and drinking well. (4) Acute kidney injury: Status: Resolved Code(s): N17.9 - Acute kidney failure, unspecified Comment: Resolved with hydration. (5) Bradycardia: Status: Acute Code(s): R00.1 - Bradycardia, unspecified Comment: Improved with decrease in the Coreg dose from 12.5 mg BID to 3.25 mg BID. BP is well controlled and the HR is good with no lightheadedness. (6) Dementia: Status: Acute Code(s): F03.90 - Unspecified dementia, unspecified severity, without behavioral disturbance, psychotic disturbance, mood disturbance, and anxiety Comment: I recommend he follow up with neurology. (7) Monoclonal gammopathy: Status: Acute Code(s): D47.2 - Monoclonal gammopathy Comment: Increased kappa light chain with chronic anemia for the past few years. Iron, B12, folate and TSH are all WNL. The iron is low normal so we elected to continue the iron supplement and add Vitamin C since he is chronically on a PPI. (8) H/O normocytic normochromic anemia: Status: Acute Code(s): Z86.2 - Personal history of diseases of the blood and blood-forming organs and certain disorders involving the immune mechanism Comment: Suspect secondary to a monoclonal gammopathy. (9) Fall: Status: Chronic Code(s): W19.XXXA - Unspecified fall, initial encounter Comment: Multiple falls over the past year (10) GERD (gastroesophageal reflux disease): Status: Acute Code(s): K21.9 - Gastro-esophageal reflux disease without esophagitis (11) Hypertension: Status: Chronic Code(s): I10 - Essential (primary) hypertension Comment: Well controlled on Coreg 3.125 mg twice daily, amlodipine 2.5 mg daily and Cardura 2 mg p.o. nightly. Orthostatic vital signs are negative and I suspect the Cardura is being used for BPH. He is also on Proscar. (12) Irregular cardiac rhythm: Status: Acute Code(s): I49.9 - Cardiac arrhythmia, unspecified Comment: Bigeminal PAC's with first degree AVB on 01/11/23. No ST elevation and no significant ST depression. QTI is WNL. (13) Cerumen in auditory canal on examination: Status: Acute Code(s): H61.20 - Impacted cerumen, unspecified ear Comment: Continue Debrox ear drops. Plan 1. Transfer to [facility] for continued therapy prior to returning home. When he does go home he will need close supervision for dementia with behavioral problems. 2. Needs to follow up with heme/once for the monoclonal gammopathy. 3. Follow-up with neurology for treatment of dementia 4. Will review BMP, CBC and magnesium in the a.m. prior to discharge. 5. Because of the bigeminal rhythm will check K and MAG in the AM. 6. Continue Seroquel. He is much more cooperative and is no longer refusing therapy although he will complain of something, like hemorrhoid pain and then refuse the suppositories he asked for. He is less impulsive. CAn not remeber to use the call light at times and will yell out. No longer rude and impatient with the staff. Allergies/Procedures Done in Hospital Allergies Penicillins Allergy (Verified 12/28/22 22:09) Rash Procedures: None Type of Care/Length of Stay Estimated LOS: Convalescent Care Less Than 30 days Type of Care Needed: Skilled Rehab Potential: Good Prognosis: Fair Additional Orders/Day of Discharge Additional Orders: He has a cough, usually when someone else is in the room. It is more like dry heaves than a cough. It is non-productive and his Lungs have been consistently CTA. Chest x-ray showed no infiltration, no pulmonary vascular congestion and no effusions. He does have hyperinflation and chronic interstitial changes on CT chest. He has been a smoker in the past. He has not had any wheezing. I think he is making himself cough. The cough seems worse at night when he lies down and he has a hx of reflux. He was on Protonix 20 mg BID and it was increased to 40 mg BID on 01/11/23. We tried Tessalon Perles and guaifenesin with dextromethorphan and neither of these helped. Consider elevating the head of the bed on 6 blocks at night. He does not cough with eating or drinking and he does not cough when he is distracted with doing therapy. He often c/o left chest pain. Multiple EKG's have been unremarkable and he has had troponin checked twice and it was normal. Please give Mylanta if he complains of L chest pain. H&P will serve as current which was dated: 12/31/22 Day of Discharge: 01/12/23 Dietary and Speech Recommendations Dietitian Recommendations/Changes: Continue current diet orders. No nutrition dx at this time. Expect needs to be met with diet at this time. Will continue to follow for changes in nutrition status. Follow Up Care Please follow up with your Primary Care Physician in: when you return home Please Follow Up With: neurology Please Follow Up With: Wilder Magana MD When: Discharge Plan Admission Admit Date/Time: 12/31/22 13:57 Primary Reason for Your Visit: Physical debility secondary to generalized weakness/deconditioning. Attending Provider: Anuj Tao Chi Primary Care Provider: Jaime Johnson Discharge Orders/Prescriptions Prescriptions: New doxazosin 1 mg Tablet 2 mg PO QHS Qty: 1 0RF carvedilol 3.125 mg Tablet 3.125 mg PO BIDCM Qty: 1 0RF Rx Instructions: Decreased due to bradycardia and low BP acetaminophen 325 mg Tablet 650 mg PO Q6H PRN PRN (Reason: Pain Score 1-10) Qty: 1 0RF tramadol 50 mg Tablet 25 mg PO Q12H PRN (Reason: Pain Score 4-10) Qty: 10 0RF Rx Instructions: PRN pain 4 or greater ascorbic acid (vitamin C) 500 mg Tablet 1,000 mg PO LUNCH Qty: 1 0RF Rx Instructions: Please give the vitamin C and the ferrous sulfate together once daily with a meal donepezil 5 mg Tablet 5 mg PO QHS Qty: 1 0RF hydrocortisone acetate 25 mg Suppository 25 mg [place] BID PRN (Reason: Hemorrhoidal pain) Qty: 12 0RF Mag 64 64 mg Tablet,Delayed Release (Dr/Ec) 128 mg PO DAILY Qty: 1 0RF quetiapine 25 mg Tablet See Rx Instructions .ROUTE .COMPLEX Qty: 1 0RF Rx Instructions: 1/2 tablet at 7AM, 1 tab at 7 PM and 1 tab at 9PM trazodone 50 mg Tablet 50 mg PO QHS Qty: 1 0RF Continued finasteride 5 mg tablet 5 mg PO QDAY multivitamin 1 EACH tablet 1 ea PO DAILY gabapentin 300 MG capsule 300 mg PO QHS calcium carbonate-vitamin D3 1 EACH tablet 1 ea PO DAILY amlodipine 2.5 mg tablet 2.5 mg PO DAILY ferrous sulfate [FeroSul] 325 mg (65 mg iron) tablet 325 mg PO DAILY polyethylene glycol 3350 [Miralax] 17 gram/dose powder 17 g PO DAILY Changed omeprazole 20 MG capsule 40 mg PO BID Qty: 1 0RF Discontinued lisinopril 40 MG tablet 40 mg PO DAILY Hold Instructions: Hold for 3 days follow-up with BMP and check with PCP, recommend starting with lower dose. terazosin 2 MG capsule 5 mg PO QHS furosemide [Lasix] 40 mg tablet 40 mg PO DAILY carvedilol 6.25 mg tablet 6.25 mg PO Q12H hydroxyzine pamoate [Vistaril] 50 mg capsule 50 mg PO QHS PRN (Reason: sleep) meloxicam 15 mg tablet 15 mg PO DAILY PRN PRN (Reason: pain) Hold Instructions: Hold for LOKI. benzonatate 100 mg Capsule 200 mg PO TID PRN PRN (Reason: COUGH) Qty: 0 0RF tramadol 50 mg Tablet 50 mg PO Q6H PRN PRN (Reason: Pain Score 4-10) Qty: 0 0RF Mucinex DM 30-600 mg Tablet Extended Release 12 Hr 2 tab PO BID 7 Days Qty: 0 0RF Referrals / Follow Up: Jaime Johnson MD [Primary Care Provider] - Wilder Magana MD [Med Staff - Active Staff] - (multiple myeloma ) Disposition Disposition (needs filled in before D/C Order can be placed): Long Term Facility (6) Dementia Qualifiers: Dementia type: unspecified type (9) Fall Qualifiers: Encounter type: subsequent encounter Qualified Code(s): W19.XXXD - Unspecified fall, subsequent encounter (10) GERD (gastroesophageal reflux disease) Qualifiers: Esophagitis presence: esophagitis presence not specified Qualified Code(s): K21.9 - Gastro-esophageal reflux disease without esophagitis (11) Hypertension Qualifiers: Hypertension type: primary hypertension Qualified Code(s): I10 - Essential (primary) hypertension
--- NOTE | 2023-01-11 16:38 | PCM.DC.SUM ---
Providers Date of Admission: 12/31/22 Date of Discharge: 01/12/23 Primary Care Physician: Dr. Jaime Johnson MD Attending Physician: Dr. Myesha maddox Reason For Visit: Debility with falls due to generalized weakness Diagnosis Discharge Diagnosis (1) Debility: Status: Acute Code(s): R53.81 - Other malaise (2) Hemorrhagic cerebrovascular accident (CVA): Status: Ruled-out Code(s): I61.9 - Nontraumatic intracerebral hemorrhage, unspecified (3) Acute dehydration: Status: Resolved Code(s): E86.0 - Dehydration (4) Acute kidney injury: Status: Resolved Code(s): N17.9 - Acute kidney failure, unspecified (5) Bradycardia: Status: Acute Code(s): R00.1 - Bradycardia, unspecified (6) Dementia: Status: Acute Code(s): F03.90 - Unspecified dementia, unspecified severity, without behavioral disturbance, psychotic disturbance, mood disturbance, and anxiety Qualifiers: Alzheimer's disease onset: unspecified onset Dementia behavioral or psychological symptom: with other behavioral disturbance Dementia severity: moderate Dementia type: Alzheimer's Qualified Code(s): G30.9 - Alzheimer's disease, unspecified; F02.B18 - Dementia in other diseases classified elsewhere, moderate, with other behavioral disturbance (7) Monoclonal gammopathy: Status: Acute Code(s): D47.2 - Monoclonal gammopathy Plan: [place] light chain. Has follow up scheduled with Dr. Magana. (8) H/O normocytic normochromic anemia: Status: Acute Code(s): Z86.2 - Personal history of diseases of the blood and blood-forming organs and certain disorders involving the immune mechanism Plan: Suspect due to monoclonal gammopathy. (9) Fall: Status: Chronic Code(s): W19.XXXA - Unspecified fall, initial encounter Qualifiers: Encounter type: subsequent encounter Qualified Code(s): W19.XXXD - Unspecified fall, subsequent encounter Plan: Multiple falls over the past year. (10) GERD (gastroesophageal reflux disease): Status: Acute Code(s): K21.9 - Gastro-esophageal reflux disease without esophagitis Qualifiers: Esophagitis presence: esophagitis presence not specified Qualified Code(s): K21.9 - Gastro-esophageal reflux disease without esophagitis (11) Hypertension: Status: Chronic Code(s): I10 - Essential (primary) hypertension Qualifiers: Hypertension type: primary hypertension Qualified Code(s): I10 - Essential (primary) hypertension Plan: Well controlled on amlodipine 2.5 mg daily, Coreg 3.125 mg twice daily and Cardura 2 mg at at bedtime. Orthostatics have been negative. (12) Irregular cardiac rhythm: Status: Acute Code(s): I49.9 - Cardiac arrhythmia, unspecified Plan: Bigeminal PACs with first-degree AV block. No significant ST or T wave changes. QT interval normal (13) Cerumen in auditory canal on examination: Status: Acute Code(s): H61.20 - Impacted cerumen, unspecified ear (14) Hyponatremia: Status: Resolved Code(s): E87.1 - Hypo-osmolality and hyponatremia Plan: Resolved with discontinuation of lisinopril. (15) Cough: Status: Acute Code(s): R05.9 - Cough, unspecified Qualifiers: Cough type: unspecified Qualified Code(s): R05.9 - Cough, unspecified Plan: Etiology uncertain, possibly due to reflux. Tessalon Perles and guaifenesin/dextromethorphan were ineffective. (16) Restless legs syndrome: Status: Acute Code(s): G25.81 - Restless legs syndrome (17) BPH (benign prostatic hyperplasia): Status: Acute Code(s): N40.0 - Benign prostatic hyperplasia without lower urinary tract symptoms Qualifiers: Lower urinary tract symptom detail: urinary retention Lower urinary tract symptom presence: symptoms present Qualified Code(s): N40.1 - Benign prostatic hyperplasia with lower urinary tract symptoms; R33.8 - Other retention of urine Plan 1. Transfer to [facility] for continued therapy prior to returning home. When he does go home he will need close supervision for dementia with behavioral problems. 2. Needs to follow up with heme/once for the monoclonal gammopathy. 3. Follow-up with neurology for treatment of dementia 4. Will review BMP, CBC and magnesium in the a.m. prior to discharge. 5. Because of the bigeminal rhythm will check K and MAG in the AM. 6. Continue Seroquel. He is much more cooperative and is no longer refusing therapy although he will complain of something, like hemorrhoid pain and then refuse the suppositories he asked for. He is less impulsive. CAn not remeber to use the call light at times and will yell out. No longer rude and impatient with the staff. Medications at Discharge Home Medications calcium carbonate 600 mg-vitamin D3 10 mcg (400 unit) tablet 1 ea PO DAILY suppliment 07/02/15 gabapentin 300 mg capsule 300 mg PO QHS restless legs 07/02/15 multivitamin 1 ea PO DAILY supplement 07/02/15 finasteride 5 mg tablet 5 mg PO QDAY urinary retention 05/17/17 amlodipine 2.5 mg tablet 2.5 mg PO DAILY blood pressure 12/31/22 ferrous sulfate 325 mg (65 mg iron) tablet (FeroSul) 325 mg PO DAILY suppliment 12/31/22 polyethylene glycol 3350 17 gram/dose oral powder (Miralax) 17 g PO DAILY laxative 12/31/22 acetaminophen 325 mg tablet 650 mg (2 x 325 mg) PO Q6H PRN PRN Pain Score 1-10 #1 TAB 01/11/23 ascorbic acid (vitamin C) 500 mg tablet 1,000 mg (2 x 500 mg) PO LUNCH #1 TAB 01/11/23 carvedilol 3.125 mg tablet 3.125 mg PO BIDCM #1 TAB 01/11/23 donepezil 5 mg tablet 5 mg PO QHS #1 TAB 01/11/23 doxazosin 1 mg tablet 2 mg (2 x 1 mg) PO QHS #1 TAB 01/11/23 hydrocortisone acetate 25 mg rectal suppository 25 mg NM BID PRN Hemorrhoidal pain #12 ea 01/11/23 magnesium chloride 64 mg (magnesium chloride) tablet,delayed release (Mag 64) 128 mg (2 x 64 mg) PO DAILY #1 TAB 01/11/23 omeprazole 20 mg capsule,delayed release 40 mg (2 x 20 mg) PO BID gerd #1 cap 01/11/23 quetiapine 25 mg tablet See Rx Instructions .Route .COMPLEX #1 TAB 01/11/23 tramadol 50 mg tablet 25 mg (1/2 x 50 mg) PO Q12H PRN Pain Score 4-10 #10 tabs 01/11/23 trazodone 50 mg tablet 50 mg PO QHS #1 TAB 01/11/23 Hospital Course Operations None Procedures None Summary of Care Provided Minutes Spent on Discharge: 45 Hospital Course: Atif Ramires is an 87-year-old male with a past medical history of BPH, presbycusis with hearing aids, GERD, hypertension, restless leg syndrome, chronic renal failure, osteoarthritis and chronic anemia who presented to the ED at [facility] on 12/28/2022 complaining of lightheadedness after a fall in his bathroom. His family found him laying on the toilet seat asleep. He had no visible injuries. When EMS arrived the patient was hypotensive and bradycardic. When he arrived in the emergency department his pulse was 124 with a blood pressure of 87/63. Significant lab included a sodium of 131, potassium of 3.4, BUN of 29 and a creatinine of 1.9. Hemoglobin was 13.2 which is high for him as he has had a normochromic normocytic anemia for a few years. IV fluids were administered and the blood pressure responded well. He had just been discharged from [facility] earlier in the day after an admission for intracerebral hemorrhage. The family stated they were told at [facility] that he did not have a stroke or and intracerebral bleed. He was admitted to the hospitalist service for acute on chronic kidney failure secondary to dehydration. Lisinopril was held due acute on chronic RF. He was started on Coreg to control BP since the Lisinopril was on hold. A tilt test was negative however he had already been hydrated in the emergency department. He was evaluated by PT/OT and he was very weak. Admission to acute rehab was recommended. He was transferred to the acute inpatient rehab unit at [facility] on 12/31/2022 for 3 hours of therapy daily to restore function/independence at or near his baseline. 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 They were able to compare the MRI done at admission to MRI's done in dating as far back as 2013 and the hyperdensity in the putamen that was thought to be due to a bleed was actually present in 2013 and unchanged. Diamond' family were quite concerned about his loss of memory which had been worsening and about the frequent falls. TSH and B12 were checked to explain memory loss and they were both normal. TSH was 0.72 and the B12 was 1669. There was no suspicion for NPH after reviewing the CT head. He did poorly on testing by the . He was administered a BCAT which is a test for cognition and he scored 25/50 which indicates significant cognitive impairment or dementia (mild). Since there was no stroke the most likely etiology of poor cognitive function is dementia. He was started on Aricept which he is tolerating with no SE. He should follow up with neurology for dementia. At admission to rehab the HGB was 11.5 with an MCV of 100. Folate, TSH and B12 were all normal. the retic count was very mildly elevated at 1.56. Iron studies showed a low iron and a low TIBC with a normal % iron saturation. A SPE and immunoelectrophoresis was obtained and he has a monoclonal gammopathy with a [place] light chain. this may be the etiology of the chronic anemia. An appt was made for him to follow up with Dr. Magana. HGB on the day of DC is 9.7. Stool for occult blood was negative. Sodium normalized with the discontinuation of Lisinopril and on the day of DC was 137. BUN on the date of discharge is 33 with a creatinine of 1.19. His fluid intake has been good and his mucous membranes are moist. We will check another week at [facility]. Would also repeat a hemoccult stool. The BUN is elevated out of proportion to the creat......could be that he is on a protein supplement from the metal template maker and he has CRF or he may have blood in the stool. He is not dehydrated on PE. Magnesium is 2.5 on the date of discharge and the calcium is normal at 8.7. Taylor has a cough which he tells me is chronic for a few years. Initially I thought he had post nasal drip because he had rhinorrhea and a mild sore throat. We tried Atrovent nasal spray and this did not help. He also continued with a cough despite Robitussin-DM and Tessalon Perles. A CXR on 01/07/2023 showed hyperinflation but no infiltrates, pulmonary vascular congestion or effusions. He had a chest CT in December 2022 that showed chronic interstitial changes with no superimposed acute pulmonary process. He has been persistently AF with a nl WBC count. He coughs mostly when his family is in the room and seems to cough more at night. It actually sounds more like retching or vigorous clearing of his throat. My office is across from his room and I rarely hear him cough during the day. He does not cough when he is distracted in therapy and he does not cough with eating or drinking. He has been a smoker in the past. His lungs have been CTA since arrival on rehab. We had some behavioral issues with Taylor when he first came to rehab. He was very abrupt and rude with the nursing staff and was yelling at staff. He would not cooperate with therapy and refused on multiple occasions. Behavior and cognition got much worse in the evening and h was not sleeping well at night. He was started on Seroquel at HS. We have adjusted the dose as needed and at DC he is on 12.5 mg in the AM, 25 mg at 7PM and 25 mg at 9PM. He also is getting Trazodone 50 at HS. He slept very well the night prior to DC on this dosage. EKG done on 01/11/23 showed no QT prolongation. He had a bigeminal rhythm on 01/11 and the EKG showed bigeminal PAC's with a first degree AV block. There were no significant ST or T wave changes. After the Seroquel was adequately titrated Taylor became much more cooperative and agreeable. He was pleasant to talk to and was no longer yelling, except when he wants/needs something because he forgets to use the call light. He has gotten stronger. At the time of discharge he is supervision/set up for eating and standby assist with grooming, toileting and bathing. He requires only minimal assistance with upper body and lower body dressing. He is contact-guard assist for tub/shower transfer. He has ambulated up to 125 feet with a front wheel walker at contact-guard assist. He can ascend/descend 5 steps ranging in height from 4 inches to 6 inches with 2 handrails at contact-guard assist. His TUG test has improved but, it is still 26.04 sec and the goal is < 20 sec. Taylor has many somatic complaints and he has a certain way he likes to do things. He will request a suppository to have a BM and tell me that he uses them daily at home for many years and then the same night he will refuse a suppository and tell nursing he never uses them. He requests something for hemorrhoids and then refuses the medication. He complains of left chest pain and troponins and EKG's have been normal. He complains of back pain. I discontinued Meloxicam due to CRF and he has been getting Tramadol which he tells me helps. I think at times he just wants some attention. I do not think Taylor should be left alone. I also do not think he is stable for DC home yet. He was agreeable to admission to SNF to improve strength. I related to his family that he will need 24/ supervision when he does go home. He should continue daily exercise to maintain his strength once he is discharged home but, I think when he is home he will likely refuse. Taylor should follow up with Dr. Johnson following DC from SNF and we made him an appt to follow up with Dr. Magana for the monoclonal gammopathy. I recommend if possible that he see a psychiatrist while at [facility] Please obtain a hemoccult stool and a CBC and BMP on Wednesday01/15/23. Physical Exam Const alert, oriented x3 and no apparent distress Constitutional Narrative: Sitting in the recliner and looks comfortable. Occasionally will clear his throat. No actual cough. He is appropriate and cooperative. General Appearance: cooperative and well developed HEENT normocephalic and moist oral mucous membranes Neck supple General: trachea midline Resp normal respiratory effort, normal air movement and clear to auscultation bilaterally Resp Narrative: No conversational dyspnea. Effort and Inspection: Negative for tachypneic, respiratory distress, labored or uses accessory muscles Auscultation: diminished lung sounds bilateral (Mildly diminished posterior in the bases. ) Cardio regular rate, regular rhythm, S1 normal heart sound, S2 normal heart sound, no murmurs, no rub and no gallops Cardio Narrative: He is currently in a bigeminal rhythm and briefly it was irreg irreg. Rate: Negative for tachycardic GI normal to inspection, nondistended, normoactive bowel sounds, soft to palpation and non-tender GI Narrative: No guarding with palpation Inspection: Negative for abdominal distention Extremity no calf tenderness General Extremity: Negative for clubbing or edema Skin Skin Narrative: Some bruising on the UE's due to lab draws and IV's. General Skin Exam: no breakdown Rashes: no rashes Wounds: Negative for wounds noted Neuro CN's II-XII intact bilaterally, no focal motor deficits and no sensory deficits noted Neuro Narrative: He has generalized weakness. Speech: speech normal Motor Exam: general weakness Psych cooperative, affect normal, denies homicidal ideation and denies suicidal ideation Psych Narrative: seems anxious at times. Appearance: appropriate Attitude: No agitated Activity / Motor Behavior: Negative for restless Weight / BMI Weight Weight: 169 lb 1.513 oz Body Mass Index (BMI) 28.1 ABG / Lab / Microbiology Data 01/12/23 05:38 01/12/23 05:38 Meaningful Use Info Meaningful Use Diagnoses (Choose all that apply): None applicable Discharge Plan Admission Admit Date/Time: 12/31/22 13:57 Primary Reason for Your Visit: Physical debility secondary to generalized weakness/deconditioning. Attending Provider: Anuj Tao Chi Primary Care Provider: Jaime Johnson Discharge Orders/Prescriptions Prescriptions: New doxazosin 1 mg Tablet 2 mg PO QHS Qty: 1 0RF carvedilol 3.125 mg Tablet 3.125 mg PO BIDCM Qty: 1 0RF Rx Instructions: Decreased due to bradycardia and low BP acetaminophen 325 mg Tablet 650 mg PO Q6H PRN PRN (Reason: Pain Score 1-10) Qty: 1 0RF tramadol 50 mg Tablet 25 mg PO Q12H PRN (Reason: Pain Score 4-10) Qty: 10 0RF Rx Instructions: PRN pain 4 or greater ascorbic acid (vitamin C) 500 mg Tablet 1,000 mg PO LUNCH Qty: 1 0RF Rx Instructions: Please give the vitamin C and the ferrous sulfate together once daily with a meal donepezil 5 mg Tablet 5 mg PO QHS Qty: 1 0RF hydrocortisone acetate 25 mg Suppository 25 mg NM BID PRN (Reason: Hemorrhoidal pain) Qty: 12 0RF Mag 64 64 mg Tablet,Delayed Release (Dr/Ec) 128 mg PO DAILY Qty: 1 0RF quetiapine 25 mg Tablet See Rx Instructions .ROUTE .COMPLEX Qty: 1 0RF Rx Instructions: 1/2 tablet at 7AM, 1 tab at 7 PM and 1 tab at 9PM trazodone 50 mg Tablet 50 mg PO QHS Qty: 1 0RF Continued finasteride 5 mg tablet 5 mg PO QDAY multivitamin 1 EACH tablet 1 ea PO DAILY gabapentin 300 MG capsule 300 mg PO QHS calcium carbonate-vitamin D3 1 EACH tablet 1 ea PO DAILY amlodipine 2.5 mg tablet 2.5 mg PO DAILY ferrous sulfate [FeroSul] 325 mg (65 mg iron) tablet 325 mg PO DAILY polyethylene glycol 3350 [Miralax] 17 gram/dose powder 17 g PO DAILY Changed omeprazole 20 MG capsule 40 mg PO BID Qty: 1 0RF Discontinued lisinopril 40 MG tablet 40 mg PO DAILY Hold Instructions: Hold for 3 days follow-up with BMP and check with PCP, recommend starting with lower dose. terazosin 2 MG capsule 5 mg PO QHS furosemide [Lasix] 40 mg tablet 40 mg PO DAILY carvedilol 6.25 mg tablet 6.25 mg PO Q12H hydroxyzine pamoate [Vistaril] 50 mg capsule 50 mg PO QHS PRN (Reason: sleep) meloxicam 15 mg tablet 15 mg PO DAILY PRN PRN (Reason: pain) Hold Instructions: Hold for LOKI. benzonatate 100 mg Capsule 200 mg PO TID PRN PRN (Reason: COUGH) Qty: 0 0RF tramadol 50 mg Tablet 50 mg PO Q6H PRN PRN (Reason: Pain Score 4-10) Qty: 0 0RF Mucinex DM 30-600 mg Tablet Extended Release 12 Hr 2 tab PO BID 7 Days Qty: 0 0RF Referrals / Follow Up: Remigio Lind [Other] - 01/21/23 10:00 am (Neurologist follow up for dementia ) Jaime Johnson MD [Primary Care Provider] - Tim Raymond MD [Med Staff - Active Staff] - Wilder Magana MD [Med Staff - Active Staff] - (multiple myeloma Referral sent office will call to set up appt. ) Disposition Disposition (needs filled in before D/C Order can be placed): [facility] Charges/Coding Visit Charges Inpatient E&M: 04876 Disch Hosp >30min
[2023-01-11] MEDS: QUEtiapine 25 MG Tablet PO ×3 (18:39→21:24)
[2023-01-11 19:21] VITALS: BP 122/51; PULSE 60; RESP 18; TEMP 36.7; O2SAT 95
[2023-01-11 20:00] VITALS: BP 111/53; PULSE 52; RESP 16; TEMP 36.7; O2SAT 96
[2023-01-11 20:03] VITALS: PULSE 52; O2SAT 96
[2023-01-11] MEDS: Doxazosin 1 MG Tablet 2 MG PO (21:22)
[2023-01-11] MEDS: traZODone 50 MG Tablet PO ×2 (21:24→21:26)
[2023-01-11] MEDS: Hydrocortisone 25 MG Suppository RC (21:24)
[2023-01-11] MEDS: Bisacodyl 10 MG Suppository RC (21:32)
[2023-01-11] MEDS: Donepezil HCl 5 MG Tablet PO (21:33)
[2023-01-11] MEDS: Gabapentin 300 MG Capsule PO (21:53)
[2023-01-11] MEDS: Pantoprazole Sodium 40 MG Tablet PO (23:22)
[2023-01-11] MEDS: Carbamide Peroxide 15 ML Bottle 5 DRP OTIC (23:23)
[2023-01-12] MEDS: Benzonatate 100 MG Capsule PO (00:12)
--- NOTE | 2023-01-12 03:07 | NURSING ---
Reviewed and agree with Kaden LE, documentation and assessment charting.
[2023-01-12] MEDS: Hydrocortisone 25 MG Suppository RC (05:25)
[2023-01-12] MEDS: Arthritis Pain Compound 60 CLICK TUBE TOPICAL (05:25)
[2023-01-12 05:33] VITALS: BP 138/57; PULSE 58; RESP 16; TEMP 36.2; O2SAT 96; BMI 28.1
[2023-01-12 05:50] LABS: Hematocrit 29.4 % (40-54); Hemoglobin 9.7 g/dL (13.0-16.5); Mean Corpuscular Hgb 32.8 pg (27.0-32.0); Mean Corpuscular Volume 99.3 fL (80-94); Mean Platelet Vol. 8.8 fl (6.2-12.0); Platelet Count 282 K/mm3 (150-450); RBC Distribution Width CV 13.7 % (11.6-14.6); RBC Distribution Width SD 49.4 fl (35.1-43.9); Red Blood Count 2.96 M/mm3 (4.6-6.2); White Blood Count 6.8 K/mm3 (4.4-11.0)
[2023-01-12 06:27] LABS: Anion Gap 2 (5-15); BUN 33 mg/dL (7-18); BUN/Creat Ratio 27.7 RATIO (10-20); Calcium,Total 8.7 mg/dL (8.5-10.1); Chloride 107 mmol/L (98-107); Creatinine, Serum 1.19 mg/dL (0.70-1.30); EST Glomerular Filtration Rate 62 mL/min (>60); Est Glom Filt Rate - Afr Amer 75 mL/min (>60); Estimated Creatinine Clearance 39.48 ml/min; Glucose 112 mg/dL (74-106); Magnesium 2.5 mg/dL (1.6-2.6); Potassium 4.7 mmol/L (3.5-5.1); Sodium Level 137 mmol/L (136-145)
[2023-01-12] MEDS: QUEtiapine 25 MG Tablet 12.5 MG PO (06:56)
[2023-01-12 07:25] VITALS: BP 138/57; PULSE 60; RESP 18; TEMP 36.6; O2SAT 96
[2023-01-12] MEDS: amLODIPine 2.5 MG Tablet PO (08:15)
[2023-01-12] MEDS: Magnesium Chloride 64 MG Delay Rel.Tablet 128 MG PO (08:15)
[2023-01-12] MEDS: Polyethylene Glycol 3350 17 GM PACKET PO (08:16)
[2023-01-12] MEDS: Calcium Carb/Vitamin D 1 TABLET Tablet PO (08:16)
[2023-01-12] MEDS: Carvedilol 3.125 MG TABLET PO (08:16)
[2023-01-12] MEDS: Finasteride 5 MG Tablet PO (08:16)
[2023-01-12] MEDS: Pantoprazole Sodium 40 MG Tablet PO (08:16)
[2023-01-12] MEDS: Multivitamins,Therapeutic Tablet 1 TABLET PO (08:16)
[2023-01-12] MEDS: Menthol/Lanolin/Calamine/Znox 113 GM Tube 1 APPLIC TOPICAL (08:18)
[2023-01-12] MEDS: Ferrous Sulfate 325 MG Tablet PO (12:08)
[2023-01-12] MEDS: Ascorbic Acid 500 MG Tablet 1000 MG PO (12:08)
--- NOTE | 2023-01-12 13:41 | NURSING ---
Discharge to SNF Via family transport. report called to [facility].
[2023-01-12 13:44] VITALS: BP 138/57; PULSE 60; RESP 18; TEMP 36.6; O2SAT 96
== END 2023-01-12 13:52 | disposition skilled nursing facility (03) | DRG 683 ==
PROVIDERS: Family Medicine; Internal Medicine; Admitting Provider Family Medicine Geriatric Medicine; PCP Family Medicine; Referring Provider Family Medicine Geriatric Medicine; Visit Provider Family Medicine Geriatric Medicine
DX: N17.9 Acute kidney failure, unspecified (principal); F02.B18 Dementia in other diseases classified elsewhere, moderate, with other behavioral disturbance; D63.8 Anemia in other chronic diseases classified elsewhere; E86.0 Dehydration; D47.2 Monoclonal gammopathy; D50.9 Iron deficiency anemia, unspecified; G30.9 Alzheimer's disease, unspecified; I48.91 Unspecified atrial fibrillation; N18.31 Chronic kidney disease, stage 3a; G25.81 Restless legs syndrome; I12.9 Hypertensive chronic kidney disease with stage 1 through stage 4 chronic kidney disease, or unspecified chronic kidney disease; I44.0 Atrioventricular block, first degree; K21.9 Gastro-esophageal reflux disease without esophagitis; G62.9 Polyneuropathy, unspecified; F55.2 Abuse of laxatives; D53.9 Nutritional anemia, unspecified; R73.9 Hyperglycemia, unspecified; G47.00 Insomnia, unspecified; Z87.891 Personal history of nicotine dependence; N40.1 Benign prostatic hyperplasia with lower urinary tract symptoms; Z79.899 Other long term (current) drug therapy; M99.88 Other biomechanical lesions of rib cage; R33.8 Other retention of urine
CPT/HCPCS: 36415; 71045; 71046; 73521; 80048; 81001; 82040; 82140; 82274; 82330; 82570; 82607; 82728; 82746; 82784; 83036; 83540; 83550; 83605; 83735; 84100; 84165; 84166; 84300; 84443; 84484; 84540; 85025; 85027; 85045; 86334; 86335; 86850; 86900; 86901; 92523; 92526; 92610; 93005; 94668; 96365; 96366; 96375; 97110; 97112; 97116; 97129; 97130; 97162; 97166; 97530; 97535; 97802; 97803; 99221; 99252; 99285; J7120; A4216; G0378; G0463

== ENCOUNTER → 2023-01-13 | Outpatient (REF) | payer MEDICARE, SELFPAY ==
[2023-01-13 10:10] LABS: Hematocrit 34.6 % (40-54); Hemoglobin 10.9 g/dL (13.0-16.5); Mean Corp Hgb Conc 31.5 g/dL (32-36); Mean Corpuscular Hgb 32.8 pg (27.0-32.0); Mean Corpuscular Volume 104.2 fL (80-94); Mean Platelet Vol. 9.7 fl (6.2-12.0); Platelet Count 316 K/mm3 (150-450); RBC Distribution Width CV 13.8 % (11.6-14.6); RBC Distribution Width SD 53.1 fl (35.1-43.9); Red Blood Count 3.32 M/mm3 (4.6-6.2); White Blood Count 7.1 K/mm3 (4.4-11.0)
[2023-01-13 10:21] LABS: ALB/GLOB Ratio 0.8 RATIO (0.9-2.4); AST(SGOT) 23 U/L (15-37); Alanine Aminotransfer ALT/SGPT 51 U/L (16-61); Albumin, Serum 3.1 g/dL (3.2-5.0); Alkaline Phosphatase 184 U/L (45-117); Anion Gap 7 (5-15); BUN 26 mg/dL (7-18); BUN/Creat Ratio 20.8 RATIO (10-20); Calcium,Total 9.1 mg/dL (8.5-10.1); Chloride 105 mmol/L (98-107); Creatinine, Serum 1.25 mg/dL (0.70-1.30); EST Glomerular Filtration Rate 58 mL/min (>60); Est Glom Filt Rate - Afr Amer 71 mL/min (>60); Glucose 107 mg/dL (74-106); Magnesium 2.4 mg/dL (1.6-2.6); Potassium 4.3 mmol/L (3.5-5.1); Protein, Total 7.1 g/dL (6.4-8.2); Sodium Level 137 mmol/L (136-145)
== END ==
LOC: OLS.SW 05:00
PROVIDERS: PCP Family Medicine; Visit Provider Family Medicine
DX: I10 Essential (primary) hypertension (principal); Z79.899 Other long term (current) drug therapy
CPT/HCPCS: 36415; 80053; 83735; 85027

== ENCOUNTER 2023-01-29 19:14 | Inpatient (IN) | payer OTHER, SELFPAY ==
[2023-01-29 19:15] VITALS: BP 116/68; PULSE 51; RESP 16; TEMP 36.2; O2SAT 100; BMI 27.0
[2023-01-29 19:54] VITALS: BP 116/68; PULSE 51; RESP 16; TEMP 36.2; O2SAT 100
--- NOTE | 2023-01-29 20:02 | CT_ITS ---
STUDY: CT ABDOMEN AND PELVIS WITHOUT CONTRAST REASON FOR EXAM: Male, 87 years old. pain RADIATION DOSAGE (If Supplied By Facility): CTDIvol = ( 7.94 ) mGy, DLP = ( 424.65 ) mGycm TECHNIQUE: Transaxial images were obtained from the dome of the diaphragm to the symphysis pubis without oral contrast, and without intravenous contrast. Sagittal and coronal images were reconstructed. Individualized dose optimization techniques were used for this CT. COMPARISON: CT abdomen and pelvis November 18, 2009 FINDINGS: The visualized lung bases are unremarkable. Calcific coronary artery disease. Normal liver. Normal gallbladder and extrahepatic biliary system. Normal spleen. Normal pancreas. Normal bilateral adrenal glands. Normal right kidney. Normal left kidney. Thickening of the gastric antrum and possible ulceration. Air-fluid levels in the small bowel. Normal colon. Appendix not identified. Small hiatal hernia. Calcified plaque along the aorta and its branches. Normal inferior vena cava. Normal retroperitoneum. Normal urinary bladder. Fat-containing inguinal hernias, left greater than right. Moderate dextroconvex scoliosis multilevel vacuum disc phenomena. CT/Abdomen/Pelvis without Cont IMPRESSION: Possible gastric ulcer. Other incidental findings as above. Electronically Signed: Pranav Owusu MD at 21:36 EDT ,
--- NOTE | 2023-01-29 20:03 | EKG12_ITS ---
Test Reason : Dysrhythmia Blood Pressure : / mmHG Vent. Rate : 084 BPM Atrial Rate : 000 BPM P-R Int : 000 ms QRS Dur : 072 ms QT Int : 390 ms P-R-T Axes : 000 064 052 degrees QTc Int : 460 ms Atrial fibrillation Abnormal ECG When compared with ECG of 11-JAN-2023 15:38, Previous ECG has undetermined rhythm, needs review Confirmed by EDNA SOUSA, DG ([id number]), electronic news gathering editor STONE LIMON ([id number]) on 03/24/2023 2:06:22 PM Referred By: Confirmed By:DG BISHOP MD
[2023-01-29] MEDS: 0.9% Normal Saline 1,000 ML 1000 ML IV (20:18)
[2023-01-29] MEDS: Morphine 4 MG/ML Syringe IV (20:18)
[2023-01-29] MEDS: Ondansetron 4 MG/2 ML Vial IV ×2 (20:18→23:45)
[2023-01-29 20:25] LABS: Absolute Lymphocyte Count 2.07 X10^3/uL (0.83-4.51); Absolute Neutrophil Count 7.2 X10^3/uL (2.0-7.7); Basophil# 0.04 X10^3/uL; Basophil% 0.4 % (0-1); Eosinophil# 0.09 X10^3/uL; Eosinophils% 0.9 % (0-5); Hemoglobin 12.4 g/dL (13.0-16.5); Lymphocyte # 2.07 X10^3/ul (0.83-4.51); Lymphocyte % 19.9 % (19-41); Mean Corp Hgb Conc 33.5 g/dL (32-36); Mean Corpuscular Volume 98.4 fL (80-94); Mean Platelet Vol. 10.1 fl (6.2-12.0); Monocyte# 0.98 X10^3/uL; Monocyte% 9.4 % (0-10); NRBC Flagged by Analyzer 0 % (0-5); Neutrophil # 7.18 X10^3/uL (2.7-7.7); Neutrophil % 68.9 % (47-70); Platelet Count 301 K/mm3 (150-450); RBC Distribution Width CV 13.6 % (11.6-14.6); RBC Distribution Width SD 49.1 fl (35.1-43.9); Red Blood Count 3.76 M/mm3 (4.6-6.2); White Blood Count 10.4 K/mm3 (4.4-11.0)
--- NOTE | 2023-01-29 20:38 | EDS_ITS ---
HPI History of Present Illness Chief Complaint: Abd Pain Informant: patient and family Narrative Narrative: Patient presents with abdominal pain. Patient is not the best informant. He does have dementia. History is from him and family members. The overall story is that he has been having some abdominal discomfort for about 3 or so days. He is not moving his bowels well. He has nausea but no vomiting. He has not really been eating and drinking much. He d enies urinary symptoms. He was seen today as an outpatient. He had blood work and plain films that were concerning for small bowel obstruction and dehydration. I do not have access to these results. He was sent in here for evaluation. Of note, it sounds like the patient may have had an inguinal hernia repair in the past but no other abdominal surgery. No history of cancer. No recent weight loss. No trauma. Nothing I can get makes the symptoms better or worse. PFSH [facility] Medical History A-fib BPH (benign prostatic hyperplasia) Chronic renal failure, stage 3a Dark stools Fall GERD (gastroesophageal reflux disease) H/O normocytic normochromic anemia Hypertension Neuropathic pain Restless legs syndrome Home Medications calcium carbonate 600 mg-vitamin D3 10 mcg (400 unit) tablet 1 ea PO DAILY suppliment 07/02/15 [History Last Taken 12/31/22] gabapentin 300 mg capsule 300 mg PO QHS restless legs 07/02/15 [History Last Taken Unknown] multivitamin 1 ea PO DAILY supplement 07/02/15 [History Last Taken Unknown] finasteride 5 mg tablet 5 mg PO QDAY urinary retention 05/17/17 [History Last Taken Unknown] amlodipine 2.5 mg tablet 2.5 mg PO DAILY blood pressure 12/31/22 [History Last Taken Unknown] ferrous sulfate 325 mg (65 mg iron) tablet (FeroSul) 325 mg PO DAILY suppliment 12/31/22 [History Last Taken 12/31/22] polyethylene glycol 3350 17 gram/dose oral powder (Miralax) 17 g PO DAILY laxative 12/31/22 [History Last Taken 12/31/22] acetaminophen 325 mg tablet 650 mg (2 x 325 mg) PO Q6H PRN PRN Pain Score 1-10 #1 TAB 01/11/23 [Rx Last Taken Unknown] ascorbic acid (vitamin C) 500 mg tablet 1,000 mg (2 x 500 mg) PO LUNCH #1 TAB 01/11/23 [Rx Last Taken Unknown] carvedilol 3.125 mg tablet 3.125 mg PO BIDCM #1 TAB 01/11/23 [Rx Last Taken Unknown] donepezil 5 mg tablet 5 mg PO QHS #1 TAB 01/11/23 [Rx Last Taken Unknown] doxazosin 1 mg tablet 2 mg (2 x 1 mg) PO QHS #1 TAB 01/11/23 [Rx Last Taken Unknown] magnesium chloride 64 mg (magnesium chloride) tablet,delayed release (Mag 64) 128 mg (2 x 64 mg) PO DAILY #1 TAB 01/11/23 [Rx Last Taken Unknown] tramadol 50 mg tablet 25 mg (1/2 x 50 mg) PO Q12H PRN Pain Score 4-10 #10 tabs 01/11/23 [Rx Last Taken Unknown] benzonatate 100 mg capsule 100 mg PO Q6H PRN cough 01/29/23 [History Last Taken Unknown] bisacodyl 10 mg rectal suppository [address] DAILY PRN constipation 01/29/23 [History Last Taken Unknown] hydrocortisone acetate 25 mg rectal suppository [address] BID Hemorrhoidal pain 01/29/23 [History Last Taken Unknown] pantoprazole 20 mg tablet,delayed release 20 mg PO Q12H 01/29/23 [History Last Taken Unknown] quetiapine 25 mg tablet 25 mg PO BID 01/29/23 [History Last Taken Unknown] Allergy/AdvReac Type Severity Reaction Status Date / Time Penicillins Allergy Rash Verified 01/29/23 19:17 Family History Mother Cirrhosis of liver Surgical History H/O hernia repair Hx of cholecystectomy S/P right rotator cuff repair Unspecified nasal polyp Social History household members: spouse current occupational status: retired Smoking Status: Former smoker how long ago did patient quit smokin years ago ROS ROS ED ROS Narrative A complete review of systems was performed and is negative except as documented in the history of present illness. Some specific details below. Constitutional: No recent fevers or chills. He does feel worn out. EYE: No color change. ENT: No difficulty swallowing. No swelling. No pain. No GERD. CV: No chest pain or palpitations. Respiratory: No dyspnea. No hemoptysis. No difficulty taking breaths. GI: Please see history of present illness. He is pain but cannot localize it. No back pain. Nausea but no vomiting. : No frequency dysuria or hematuria. Sounds like there is no difficulty starting urination. No burning. Musculoskeletal: No recent trauma. No pains. Skin: No rash. Nondiaphoretic. Neuro: No weakness or numbness. Endocrine: No polyuria or polydipsia. EXAM Physical Exam Narrative Exam Narrative: CONSTITUTIONAL: Patient is nontoxic in appearance. The patient is laying on his left side in the bed. HEENT: No notable trauma. Mucous membranes do look a bit dry. No sinus te nderness. No indication of pain with swallowing. EYES: No conjunctival injection. No icterus. CARDIOVASCULAR: Regular rate. He does sound like he has an irregular rhythm but does have a known history of atrial fibrillation. It appears as though he is not on any anticoagulation though. No notable murmur. No JVD. RESPIRATORY: No respiratory distress. Breathing is unlabored. No wheezes. No rhonchi. No rales. No pain with a deep breath. GASTROINTESTINAL: Not distended. Bowel sounds are slightly increased. I really do not get any localized tenderness. No guarding or rebound. I do not feel any fullness or sign of hernia in his groin. I see no umbilical hernia. There is a little bit of fullness above this that could be a slight ventral hernia but does not appear to be incarcerated. GENITOURINARY: No tenderness over the bladder. No CVA tenderness. MUSCULOSKELETAL: Atraumatic. No tenderness NEUROLOGICAL: Patient is alert and appropriate. No focal deficit noted. He is not the best informant but evidently this is baseline for him. SKIN: No noted rashes. No diaphoresis. PSYCHIATRIC: Patient is calm. Mood is appropriate. Const Vital Signs: 01/29/23 19:15 01/29/23 19:54 Temperature 97.2 F L 97.2 F L Temperature Source Temporal Temporal Pulse Rate 51 L 51 L Respiratory Rate 16 16 Blood Pressure 116/68 116/68 Blood Pressure Mean 84 84 Pulse Ox 100 100 Oxygen Delivery Method Room Air MDM MDM MDM Narrative Medical decision making narrative: Patient CBC shows normal white count. Hemoglobin is little bit low but higher than recent but he also is dehydrated. Platelets are normal. Electrolytes show minimally low sodium potassium. However, he does have high BUN and high creatinine with a doubling of his creatinine consistent with an acute kidney injury. I think this likely is all occurred over the last 3 to 4 days based on his history. Liver function test show minimal elevation alkaline phosphatase. Lipase is slightly up but I do not think this represents acute pancreatitis as his CT does not show signs of that. CT scan of his abdomen looked at by me does not show any sign of obstruction. There is a few air-fluid levels but no distended bowels. Radiology does note findings consistent with possible gastric ulcer. This could explain some of his symptomatology. He will be treated with IV pantoprazole. Rectal exam was done that was a little uncomfortable for the patient but there is no mass. No sign of infection. Hemoccult is sent off and pending. With this patient's age, decreased p.o. intake, nausea, pain, acute kidney injury I do not think going back to assisted living would be appropriate. He and family agree. I discussed case with hospitalist. Lab Data Labs: Laboratory Results - last 24 hr 01/29/23 20:10 WBC 10.4 RBC 3.76 L Hgb 12.4 L Hct 37.0 L MCV 98.4 H MCH 33.0 H MCHC 33.5 RDW Std Deviation 49.1 H RDW Coeff of Donald 13.6 Plt Count 301 MPV 10.1 Immature Gran % (Auto) 0.500 Neut % (Auto) 68.9 Lymph % (Auto) 19.9 [place] % (Auto) 9.4 Eos % (Auto) 0.9 Baso % (Auto) 0.4 Absolute Neuts (auto) 7.2 Absolute Lymphs (auto) 2.07 Nucleated RBC % 0 Sodium 133 L Potassium 3.4 L Chloride 98 Carbon Dioxide 24.0 Anion Gap 11 BUN 39 H Creatinine 2.50 H Estim Creat Clear Calc 20.20 Est GFR (MDRD) Af Amer 32 L Est GFR (MDRD) Non-Af 26 L BUN/Creatinine Ratio 15.6 Glucose 101 Calcium 9.0 Total Bilirubin 0.70 AST 22 ALT 33 Alkaline Phosphatase 136 H Total Protein 7.7 Albumin 3.5 Globulin 4.2 Albumin/Globulin Ratio 0.8 L Lipase 77 H Radiography Diagnostic Testing: Clinical Impression(s) from Imaging Studies Abdomen/Pelvis CT 01/29/23 20:02 IMPRESSION: Possible gastric ulcer. Other incidental findings as above. Electronically Signed: Pranav Owusu MD at 21:36 EDT Reading Location ID and State: [address] [place] [address] Tel , Service support , EKG Initial EKG: Comments: I independent interpretation the patient's EKG done for history of atrial fibrillation does show atrial fibrillation with a controlled rate at 84. No ventricular ectopy. No acute ST elevation or depression. QRS duration and QTc normal. Discharge Plan Triage Chief Complaint: Abd Pain ED Provider: Evangelista Martinez Dx/Rx/DC Orders Clinical Impression: Acute kidney injury, Anemia, Abdominal pain, Dehydration Prescriptions: No Action finasteride 5 mg tablet 5 mg PO QDAY multivitamin 1 EACH tablet 1 ea PO DAILY gabapentin 300 MG capsule 300 mg PO QHS calcium carbonate-vitamin D3 1 EACH tablet 1 ea PO DAILY doxazosin 1 mg Tablet 2 mg PO QHS Qty: 1 0RF carvedilol 3.125 mg Tablet 3.125 mg PO BIDCM Qty: 1 0RF Rx Instructions: Decreased due to bradycardia and low BP acetaminophen 325 mg Tablet 650 mg PO Q6H PRN PRN (Reason: Pain Score 1-10) Qty: 1 0RF tramadol 50 mg Tablet 25 mg PO Q12H PRN (Reason: Pain Score 4-10) Qty: 10 0RF Rx Instructions: PRN pain 4 or greater ascorbic acid (vitamin C) 500 mg Tablet 1,000 mg PO LUNCH Qty: 1 0RF Rx Instructions: Please give the vitamin C and the ferrous sulfate together once daily with a meal donepezil 5 mg Tablet 5 mg PO QHS Qty: 1 0RF Mag 64 64 mg Tablet,Delayed Release (Dr/Ec) 128 mg PO DAILY Qty: 1 0RF pantoprazole 20 mg tablet,delayed release (DR/EC) 20 mg PO Q12H benzonatate 100 mg capsule 100 mg PO Q6H PRN (Reason: cough) bisacodyl 10 mg suppository [address] DAILY PRN (Reason: constipation) quetiapine 25 mg Tablet 25 mg PO BID Rx Instructions: 1/2 tablet at 7AM, 1 tab at 9PM hydrocortisone acetate 25 mg Suppository [address] BID Rx Instructions: BID AND BID PRN amlodipine 2.5 mg tablet 2.5 mg PO DAILY ferrous sulfate [FeroSul] 325 mg (65 mg iron) tablet 325 mg PO DAILY polyethylene glycol 3350 [Miralax] 17 gram/dose powder 17 g PO DAILY Primary Care Provider: Jaime Johnson Referrals: Jaime Johnson MD [Primary Care Provider] - Disposition Disposition: Acute Care Hospital [facility]
[2023-01-29 20:46] LABS: ALB/GLOB Ratio 0.8 RATIO (0.9-2.4); AST(SGOT) 22 U/L (15-37); Alanine Aminotransfer ALT/SGPT 33 U/L (16-61); Albumin, Serum 3.5 g/dL (3.2-5.0); Alkaline Phosphatase 136 U/L (45-117); Anion Gap 11 (5-15); BUN 39 mg/dL (7-18); BUN/Creat Ratio 15.6 RATIO (10-20); Chloride 98 mmol/L (98-107); EST Glomerular Filtration Rate 26 mL/min (>60); Est Glom Filt Rate - Afr Amer 32 mL/min (>60); Globulin 4.2 g/dL (2.2-4.2); Glucose 101 mg/dL (74-106); Lipase 77 U/L (13-75); Potassium 3.4 mmol/L (3.5-5.1); Protein, Total 7.7 g/dL (6.4-8.2); Sodium Level 133 mmol/L (136-145)
[2023-01-29 22:24] VITALS: BP 124/55; PULSE 107; RESP 16; O2SAT 99
[2023-01-29 22:27] VITALS: BP 124/55; PULSE 78; RESP 16; TEMP 36.1; O2SAT 98
--- NOTE | 2023-01-29 22:32 | PCM.HP.STD ---
[facility] - General General Date of Admission: 01/29/23 Date of Service: 01/29/23 Chief Complaint: Abdominal pain HPI Narrative MARY COLÓN, is a 87 M who presented emergency department at [facility] on 01/29/2023 with abdominal pain. Is a resident at an assisted living ([place]) and per his daughters, who are at the bedside, they report that he has had decreased oral intake and really has not eaten anything in about 3 days, decreased oral liquid intake and some nausea. He has had no emesis. He has a history of constipation but had a bowel movement about 2 days ago. He sustained a recent intercerebral hemorrhage and was admitted [facility] however they were told there he did not have a stroke or intracranial bleed. He was then admitted here for dehydration and was noted to be significantly weak by physical and Occupational Therapy. Acute rehab admission was recommended and he was transferred to the acute rehab unit here at the hospital. He was discharged there on 01/11/2023 and was admitted to [facility] for ongoing care. He was then discharged to the assisted living facility. It appears that he was having downtrending hemoglobin while he was at the acute rehab facility here and a guaiac was done and negative for occult blood at that time. Family reports that over the last several days he has been sleeping a lot, not eating, complaining of nausea and abdominal pain. He does have dementia at baseline and he himself is a poor historian. Vital signs on presentation show a temperature of 97.2, heart rate 51, blood pressure 116/68, respirate 16 oxygen saturations are 100% on room air. BC shows a normal white count with a hemoglobin of 12.4. His most recent hemoglobin on 01/13/2023 was 10.9 but it appears his baseline earlier this year was running between 11.5 and 13. Chemistry panel shows mild hyponatremia with a sodium of 133, mild hypokalemia with potassium of 3.4, his BUN was 39 and his serum creatinine was 2.50 (baseline serum creatinine is 1.15-1.4). Liver functions are normal and his lipase is 77. Low voltage with intermittent irregularity but does not appear to be atrial fibrillation. CT of the abdomen pelvis was performed given his findings and commented on thickening at the gastric antrum with possible ulceration and concern for possible gastric ulcer. There did not appear to be a large burden of stool in the colon. [facility] Medical History A-fib BPH (benign prostatic hyperplasia) Chronic renal failure, stage 3a Dark stools Fall GERD (gastroesophageal reflux disease) H/O normocytic normochromic anemia Hypertension Neuropathic pain Restless legs syndrome Home Medications multivitamin 1 ea PO DAILY supplement 07/02/15 [History Last Taken Unknown] finasteride 5 mg tablet 5 mg PO QDAY urinary retention 05/17/17 [History Last Taken Unknown] amlodipine 2.5 mg tablet 2.5 mg PO DAILY blood pressure 12/31/22 [History Last Taken Unknown] ferrous sulfate 325 mg (65 mg iron) tablet (FeroSul) 325 mg PO DAILY suppliment 12/31/22 [History Last Taken 12/31/22] acetaminophen 325 mg tablet 650 mg (2 x 325 mg) PO Q6H PRN PRN Pain Score 1-10 #1 TAB 01/11/23 [Rx Last Taken Unknown] benzonatate 100 mg capsule 100 mg PO Q6H PRN cough 01/29/23 [History Last Taken Unknown] bisacodyl 10 mg rectal suppository 10 mg [place] DAILY PRN constipation 01/29/23 [History Last Taken Unknown] carvedilol 3.125 mg tablet 6.25 mg PO BIDCM 01/29/23 [History Last Taken Unknown] furosemide 40 mg tablet 40 mg PO DAILY 01/29/23 [History Last Taken Unknown] hydrocortisone acetate 25 mg rectal suppository 25 mg [place] BID Hemorrhoidal pain 01/29/23 [History Last Taken Unknown] lisinopril 40 mg tablet 40 mg PO DAILY 01/29/23 [History Last Taken Unknown] melatonin 5 mg capsule 5 mg PO QHS 01/29/23 [History Last Taken Unknown] omeprazole 20 mg capsule,delayed release 20 mg PO Q8H 01/29/23 [History Last Taken Unknown] terazosin 5 mg capsule 5 mg PO QHS 01/29/23 [History Last Taken Unknown] Allergy/AdvReac Type Severity Reaction Status Date / Time Penicillins Allergy Rash Verified 01/29/23 19:17 Family History Mother Cirrhosis of liver Surgical History H/O hernia repair Hx of cholecystectomy S/P right rotator cuff repair Unspecified nasal polyp Social History (Updated 01/29/23 @ 23:[address] Isidra Rodriguez DO) household members: spouse housing: assisted living facility current occupational status: retired Smoking Status: Former smoker how long ago did patient quit smokin years ago ROS ROS Narrative Review of systems was difficult due to patient's dementia Constitutional Constitutional: Reports anorexia, fatigue and weakness; Denies change in weight, chills, fever(s), malaise, night sweats or other Eyes Eyes: Denies blurry vision, change in eye color, change in vision, discharge from eye(s), double vision, erythema, eye pain, loss of vision or other ENT HEENT: Reports abnormal hearing and hearing loss; Denies dysphagia, ear pain, epistaxis, headache(s), nasal congestion, nasal discharge, post nasal drip, sinus pressure, sore throat or other Cardiovascular Cardiovascular: Denies chest pain, claudication, dyspnea on exertion, edema, lightheadedness, orthopnea, palpitations, paroxysmal nocturnal dyspnea, rapid heart rate, syncope or other Respiratory/Chest Respiratory/Chest: Denies cough, dyspnea, excessive phlegm production, hemoptysis, productive cough, shortness of breath at rest, shortness of breath with exertion, wheezing or other Gastrointestinal Gastrointestinal: Reports abdominal pain, dyspepsia and nausea; Denies coffee ground emesis, constipation, diarrhea, hematemesis, hematochezia, loose stools, melena, vomiting or other Genitourinary Genitourinary: Denies burning urination, difficulty urinating, dysuria, hematuria, nocturia, urinary frequency, urinary hesitancy, urinary incontinence, urinary urgency or other Musculoskeletal Musculoskeletal: Denies arthralgias, back pain, joint pain, joint stiffness, joint swelling, myalgias, neck pain or other Neurologic Neurologic: Reports other Details: Memory loss ; Denies abnormal gait, abnormal speech, confusion, disequilibrium, dizziness, focal weakness, headache(s), numbness, paresthesias, seizure-like activity, seizures, syncope, tingling or tremor(s) Psychiatric Psychiatric: Denies anxiety, depression, homicidal ideation, suicidal ideation or other Endocrine Endocrinology: Denies change in body appearance, cold intolerance, excessive sweating, heat intolerance, polydipsia, polyuria or other Hematologic/Lymphatic Hematologic/Lymphatic: Denies anemia, easy bleeding, easy bruising, lymphadenopathy or other Allergic/Immunologic Allergic/Immunologic: Denies rhinitis, hives, eczemia, asthma or other Vital Signs Vital Signs Vital Signs: 01/29/23 19:15 01/29/23 19:54 01/29/23 22:24 Temperature 97.2 F L 97.2 F L Temperature Source Temporal Temporal Pulse Rate 51 L 51 L 107 H Respiratory Rate 16 16 16 Blood Pressure 116/68 116/68 124/55 H Blood Pressure Mean 84 84 78 Pulse Ox 100 100 99 Oxygen Delivery Method Room Air 01/29/23 22:27 Temperature 97 F L Temperature Source Temporal Pulse Rate 78 Respiratory Rate 16 Blood Pressure 124/55 H Blood Pressure Mean 78 Pulse Ox 98 Oxygen Delivery Method Weight Weight: 78.199 kg Body Mass Index (BMI) 27.0 Physical Exam Const alert, no apparent distress and average body habitus Constitutional Narrative: Elderly white male, lying in bed under multiple blankets lying on left side, daughters at bedside, patient appears nontoxic but fatigued, oriented to self General Appearance: cooperative HEENT normocephalic and head/scalp atraumatic HEENT Narrative: Moderate hearing loss, mucous membranes are somewhat dry, Mallampati is 2, dentition is poor, no thrush Eyes PERRL and EOMs intact bilaterally; Negative for conjunctivae normal Eyes Narrative: Mild conjunctival pallor bilaterally, no scleral icterus Neck no lymphadenopathy and supple Neck Narrative: Trachea midline, no thigh Resp normal respiratory effort, no retractions, no use of accessory muscles and clear to auscultation bilaterally Auscultation: Negative for rales, rhonchi or wheezes Cardio regular rhythm, S1 normal heart sound, S2 normal heart sound, no murmurs, no rub, no gallops and no clicks Cardio Narrative: Bradycardia GI normal to inspection, nondistended, normoactive bowel sounds and soft to palpation GI Narrative: Tenderness diffusely Extremity no clubbing, cyanosis or edema Extremity Narrative: Pedal pulses are 2+, patient with decreased lean muscle mass Skin no rashes or lesions noted, no wounds, No skin turgor normal, no jaundice, no petechiae and no mottling Skin Narrative: Skin turgor is abnormal with tenting Neuro CN's II-XII intact bilaterally, moves all extremities and no focal motor deficits Neuro Narrative: Oriented to self, severe generalized weakness Speech: speech normal Psych affect normal Psych Narrative: Eye contact is good, patient answers questions appropriately but is somewhat forgetful Results Lab / Micro Data 01/29/23 20:10 01/29/23 20:10 Labs: Laboratory Results - last 24 hr 01/29/23 20:10: WBC 10.4, RBC 3.76 L, Hgb 12.4 L, Hct 37.0 L, MCV 98.4 H, MCH 33.0 H, MCHC 33.5, RDW Std Deviation 49.1 H, RDW Coeff of Donald 13.6, Plt Count 301, MPV 10.1, Immature Gran % (Auto) 0.500, Neut % (Auto) 68.9, Lymph % (Auto) 19.9, [place] % (Auto) 9.4, Eos % (Auto) 0.9, Baso % (Auto) 0.4, Absolute Neuts (auto) 7.2, Absolute Lymphs (auto) 2.07, Nucleated RBC % 0, Sodium 133 L, Potassium 3.4 L, Chloride 98, Carbon Dioxide 24.0, Anion Gap 11, BUN 39 H, Creatinine 2.50 H, Estim Creat Clear Calc 20.20, Est GFR (MDRD) Af Amer 32 L, Est GFR (MDRD) Non-Af 26 L, BUN/Creatinine Ratio 15.6, Glucose 101, Calcium 9.0, Total Bilirubin 0.70, AST 22, ALT 33, Alkaline Phosphatase 136 H, Total Protein 7.7, Albumin 3.5, Globulin 4.2, Albumin/Globulin Ratio 0.8 L, Lipase 77 H Radiology Impression Abdomen/Pelvis CT 01/29/23 20:02 IMPRESSION: Possible gastric ulcer. Other incidental findings as above. 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 if serum creatinine does not improve may need further work-up Abdominal pain/nausea -CT is suggestive of gastric ulcer and with recent drop in hemoglobin from previous baseline likely needs EGD -Protonix drip -Antiemetics as needed -As needed morphine for pain -N.p.o. at midnight -Clear liquid diet for now -GI consultation for possible EGD tomorrow Anemia -Patient was guaiac negative at the end of December -Repeat guaiac is pending -Hemoglobin has been dropping -Suggestion of possible ulceration on EGD with thickening -Repeat CBC in a.m.--> anticipate drop in hemoglobin as patient is severely hemoconcentrated currently -GI consult as above Chronic bradycardia -Patient is on area which can contribute as well as a beta-deondre -This is asymptomatic and will continue medications for now Debility/generalized weakness -PT/OT consultation -Patient may need skilled facility at discharge depending on functional status -Consult case management and social work -Family is adamant that they do not want to return to [facility] Dementia with behavioral disturbances -Continue home medication regimen Monoclonal gammopathy -[place] light chain present -Patient has follow-up upcoming with hematology/oncology--> Dr. Magana History of GERD -Protonix drip as noted above BPH -Continue home finasteride -Continue home terazosin Hypertension -Continue home carvedilol -Hold home oral -Hold home amlodipine for now as blood pressures are currently low normal DVT prophylaxis -SCDs CODE STATUS -DNR CCA per discussion with family on admission Charges/Coding Visit Charges Inpatient E&M: 94152 Init Hosp L3
[2023-01-30] VITALS (9 sets, daily range): BP systolic 88–146; BP diastolic 46–78; PULSE 56–81; RESP 16–18; TEMP 36.1–36.8; O2SAT 94–100; BMI 27.0
[2023-01-30] MEDS: Lactated Ringers 1,000 ML 100 ML IV ×2 (02:12→11:43)
[2023-01-30] MEDS: Potassium Chloride Oral Soln 20 MEQ/15 ML UDC 40 MEQ PO (02:12)
[2023-01-30 02:45] LABS: Mucous, Urine 0 SEEN /hpf (<or=2+); Squamous Epithelial Cells - UA 0 SEEN /hpf (0-5); White Blood Cells 0 SEEN /hpf (0-5)
[2023-01-30 02:46] LABS: Color, Urine Yellow (Yellow); Glucose, Dipstick Normal (Normal); Ketone-Dipstick 5 mg/dl (Negative); Leukocyte Esterase-Dipstick Negative /ul (Negative); Nitrite-Dipstick Negative (Negative); Occult Blood-Urine 25 /ul (Negative); Protein-Dipstick 15 mg/dl (Negative); Urine Bilirubin Dipstick Negative (Negative); Urine Clarity Clear (Clear); Urine Urobilinogen Normal (Normal); Urine pH 6.5 (5.0 - 8.0)
[2023-01-30 03:16] LABS: Bacteria RARE /hpf (None Seen); Red Blood Cells-Urine 0-5 SEEN /hpf (0-5)
[2023-01-30 06:08] LABS: Absolute Lymphocyte Count 1.88 X10^3/uL (0.83-4.51); Absolute Neutrophil Count 4.5 X10^3/uL (2.0-7.7); Basophil# 0.04 X10^3/uL; Basophil% 0.5 % (0-1); Eosinophil# 0.17 X10^3/uL; Eosinophils% 2.3 % (0-5); Hematocrit 33.6 % (40-54); Hemoglobin 11.1 g/dL (13.0-16.5); Lymphocyte # 1.88 X10^3/ul (0.83-4.51); Lymphocyte % 25.5 % (19-41); Mean Corpuscular Hgb 33.2 pg (27.0-32.0); Mean Corpuscular Volume 100.6 fL (80-94); Monocyte# 0.73 X10^3/uL; Monocyte% 9.9 % (0-10); NRBC Flagged by Analyzer 0 % (0-5); Neutrophil # 4.52 X10^3/uL (2.7-7.7); Neutrophil % 61.4 % (47-70); Platelet Count 266 K/mm3 (150-450); RBC Distribution Width CV 13.9 % (11.6-14.6); RBC Distribution Width SD 51.1 fl (35.1-43.9); Red Blood Count 3.34 M/mm3 (4.6-6.2); White Blood Count 7.4 K/mm3 (4.4-11.0)
[2023-01-30 07:11] LABS: Anion Gap 9 (5-15); BUN 37 mg/dL (7-18); BUN/Creat Ratio 15.3 RATIO (10-20); Calcium,Total 8.5 mg/dL (8.5-10.1); Chloride 103 mmol/L (98-107); Creatinine, Serum 2.42 mg/dL (0.70-1.30); EST Glomerular Filtration Rate 27 mL/min (>60); Est Glom Filt Rate - Afr Amer 33 mL/min (>60); Estimated Creatinine Clearance 20.14 ml/min; Glucose 94 mg/dL (74-106); Phosphorus 4.1 mg/dL (2.5-4.9); Potassium 4.1 mmol/L (3.5-5.1); Sodium Level 137 mmol/L (136-145); Thyroid Stim Hormone (TSH) 1.82 uIU/mL (0.358-3.74)
--- NOTE | 2023-01-30 07:18 | PCM.PN.HOSP ---
Reason for Visit Reason for Visit: Diagnoses Anemia, unspecified (01/29/23) Dehydration (01/29/23) Acute kidney failure, unspecified (01/29/23) Unspecified abdominal pain (01/29/23) Abnormal findings on diagnostic imaging of other abdominal regions, including retroperitoneum (01/29/23) Subjective Subjective Patient's status post EGD with evident of chronic gastritis which was biopsied as well as a nonbleeding gastric ulcer treated with argon plasma coagulation and a single duodenal polyp that was restricted. He notes abdominal discomfort has certainly lessened since then and he has been placed on a transitional diet therefore will initiate oral intake at this time. Patient notes upon evaluation necessity to urinate however reported to him that he does have a Mcclendon catheter in and from discussion with staff it appears as though he had some urinary retention while in the ED. He is on finasteride. Patient denies fevers, chills, nausea, emesis, chest pain or dyspnea. Objective Data Objective Data Vital Signs: Vital Signs Temp Pulse Resp BP Pulse Ox O2 Del Method 98.2 F 56 L 18 110/51 L 97 Room Air 01/30/23 02:30 01/30/23 02:30 01/30/23 02:30 01/30/23 02:30 01/30/23 02:30 01/30/23 02:30 Oxygen Delivery Method Room Air Weight: 172 lb 2.896 oz Body Mass Index (BMI) 27.0 Intake & Output: Intake and Output for Last 24 Hours 01/28/23 01/29/23 01/30/23 23:59 23:59 23:59 Intake Total 1035 / 1035 Balance 1035 / 1035 Lab / Micro Data 01/30/23 04:50 01/30/23 04:50 Labs: Laboratory Results - last 24 hr 01/29/23 20:10: WBC 10.4, RBC 3.76 L, Hgb 12.4 L, Hct 37.0 L, MCV 98.4 H, MCH 33.0 H, MCHC 33.5, RDW Std Deviation 49.1 H, RDW Coeff of Donald 13.6, Plt Count 301, MPV 10.1, Immature Gran % (Auto) 0.500, Neut % (Auto) 68.9, Lymph % (Auto) 19.9, Nicollet % (Auto) 9.4, Eos % (Auto) 0.9, Baso % (Auto) 0.4, Absolute Neuts (auto) 7.2, Absolute Lymphs (auto) 2.07, Nucleated RBC % 0, Sodium 133 L, Potassium 3.4 L, Chloride 98, Carbon Dioxide 24.0, Anion Gap 11, BUN 39 H, Creatinine 2.50 H, Estim Creat Clear Calc 20.20, Est GFR (MDRD) Af Amer 32 L, Est GFR (MDRD) Non-Af 26 L, BUN/Creatinine Ratio 15.6, Glucose 101, Calcium 9.0, Total Bilirubin 0.70, AST 22, ALT 33, Alkaline Phosphatase 136 H, Total Protein 7.7, Albumin 3.5, Globulin 4.2, Albumin/Globulin Ratio 0.8 L, Lipase 77 H 01/30/23 02:30: Urine Color Yellow, Urine Clarity Clear, Urine pH 6.5, Ur Specific [place] 1.010, Urine Protein 15 H, Urine Glucose (UA) Normal, Urine Ketones 5 H, Urine Occult Blood 25 H, Urine Nitrite Negative, Urine Bilirubin Negative, Urine Urobilinogen Normal, Ur Leukocyte Esterase Negative, Urine RBC 0-5 SEEN, Urine WBC 0 SEEN, Ur Squamous Epith Cells 0 SEEN, Urine Bacteria RARE, Urine Mucus 0 SEEN 01/30/23 04:50: WBC 7.4, RBC 3.34 L, Hgb 11.1 L, Hct 33.6 L, MCV 100.6 H, MCH 33.2 H, MCHC 33.0, RDW Std Deviation 51.1 H, RDW Coeff of Donald 13.9, Plt Count 266, MPV 11.0, Immature Gran % (Auto) 0.400, Neut % (Auto) 61.4, Lymph % (Auto) 25.5, Nicollet % (Auto) 9.9, Eos % (Auto) 2.3, Baso % (Auto) 0.5, Absolute Neuts (auto) 4.5, Absolute Lymphs (auto) 1.88, Nucleated RBC % 0, Sodium 137, Potassium 4.1, Chloride 103, Carbon Dioxide 25.0, Anion Gap 9, BUN 37 H, Creatinine 2.42 H, Estim Creat Clear Calc 20.14, Est GFR (MDRD) Af Amer 33 L, Est GFR (MDRD) Non-Af 27 L, BUN/Creatinine Ratio 15.3, Glucose 94, Calcium 8.5, Phosphorus 4.1, Magnesium 2.0, TSH 1.82 Micro: Microbiology 01/29/23 22:20 Stool Stool Occult Blood (ABBIE) - Final Radiography Diagnostic Testing: Radiology Impression Abdomen/Pelvis CT 01/29/23 20:02 IMPRESSION: Possible gastric ulcer. Other incidental findings as above. Electronically Signed: Pranav Owusu MD at 21:36 EDT , Physical Exam Narrative Physical Examination: General: Awake, alert, oriented x 3 and cooperative, seated upright in MS bed, mildly fatigued otherwise no acute complaints, notes abdominal discomfort is lessened. Skin: Normal color, normal turgor, no icterus, no cyanosis except occasional staged ecchymoses. HEENT: AT/NC, EOMI, PERRLA, mildly dry MM. Lungs: C mildly diminished, greater bases, proper effort, no rales, ronchi or wheezing. Heart: Regular rate and rhythm; no gallop, rub audible. Abdomen: Soft, mild discomfort primarily to upper quadrants but no rebound or guarding, notes improved since prior, no marked distention, hyperactive BS, of note Mcclendon catheter in place. Extremities: No cyanosis, clubbing, or edema. Neurological: Patient awake, alert, oriented as noted, cognitive function intact; pupils equally reactive to light and accommodation, cranial nerves II-XII grossly normal, moving all 4 extremities, no focal deficits, strength improving but still remains moderately to severely global decreased. Psychiatric: Affect appears fatigued, no acute evidence of depressive or anxiety feelings. Assessment & Plan Assessment/Plan (1) Abdominal pain: PLAN: Plan The patient is an 87 y/o M w/ PMHx: CKD stage IIIb, HTN, HLD, BPH, Chronic anemia/Fe deficiency anemia, Chronic Bradycardia, Dementia unclear type with unclear behavioral disturbance history, Monoclonal gammopathy, GERD who presents to the [facility] ED on 01/29/23 with history of decreased oral intake for at least the last 3 days with associated nausea without emesis with last BM 2 days prior with ongoing generalized abdominal pain prompting ED evaluation. #1. Intractable Abdominal Pain with nausea, decreased oral intake, suspected Gastric etiology, possibly Ulcer: Negative guaiac however CT abdomen pelvis with possible gastric ulcer with otherwise no acute findings, admission hemoglobin 12.4, repeat this morning 01/30/23 Hgb 11.1 which is similar to his baseline from 12/29/2022 onward, maintained on continuous PPI infusion, 01/30/23 EGD with noted chronic gastritis which was biopsied as well as a nonbleeding gastric ulcer with pigmented material treated with argon plasma coagulation as well as a single duodenal polyp that was resected and retrieved with initiation of sucralfate 1 g p.o. 4 times daily, Protonix continued regimen with transition amenable to 40 mg p.o. daily as well as avoidance of any aspirin/ibuprofen/naproxen or other NSAID drugs. We will continue patient's continuous PPI infusion and once completes at 9 PM we will transition then to daily PPI oral regimen in AM. GI is currently transition patient to transitional diet, if continues to clinically improve will advance in AM. #2. Acute kidney injury on CKD stage IIIb: Secondary to poor oral intake coupled with possibly nephrotoxic medication. Admission BUN/Cr 39/2.50, prior baseline creatinine noted to be primarily 1.1-1.4, 01/30/2023 BUN/creatinine to 37/2.42. Continue judicious hydration with noted acute presentation #1, holding diuretics as well as lisinopril, continue to trend and if worsens or not improving low threshold to obtain FeNa/renal consultation. #3. Anemia, chronic since most recent admission, currently macrocytic on Chronic Fe Deficiency anemia: Guaiac negative at the end of December, repeat guaiac here negative, admission hemoglobin 12.4, MCV 98.4, 01/30/2023 Hgb 11.1, MCV 100.6, trended down since December admission, CT as noted with possible ulceration with concern for gastric ulcer. Vitamin B12 and folic acid levels requested. 01/30/23 EGD with noted chronic gastritis which was biopsied as well as a nonbleeding gastric ulcer with pigmented material treated with argon plasma coagulation as well as a single duodenal polyp that was resected and retrieved with initiation of sucralfate 1 g p.o. 4 times daily, Protonix continued regimen with transition amenable to 40 mg p.o. daily as well as avoidance of any aspirin/ibuprofen/naproxen or other NSAID drugs. #4. Debility, generalized weakness, adult failure to thrive: Likely contributed to by acute presentation as noted #1, #2, #3, maintain on fall precautions, PT and OT consultations requested as well as case management for possible skilled transition, family does not want patient to return to [facility] of note and would prefer other facility. #5. BPH with urinary retention: Continue patient home finasteride and terazosin regimen, Mcclendon catheter currently in place, will attempt discontinuation 01/31/2023 with continued close monitoring. If again he has recurrent may consider also adding Flomax but again he is already on dual agents thus could consider leaving in place and having him follow-up with urology outpatient if this becomes an issue. #6. Hypokalemia: Admission K+ 3.4, supplementation given, repeat level 01/30/23 4.1, normalized. #7. Recent Radiology Reported Intracranial hemorrhage: Recent transition to [facility], CT 12/24/2022 with reported acute parenchymal hemorrhage in the left thalamic without any mass effect or midline shift with age consistent senescent changes and normal ventricles and cisterns for patient's age however family report upon current presentation is that they were told he did not have any hemorrhage so is unclear if MRI over at the other facility did not demonstrate any acute findings. #8. Dementia, unclear type with reported behavioral disturbance history: We will continue home Aricept regimen, complicates presentation, PT/OT/case management consulted for discharge planning, maintain on fall and aspiration precautions. #9. Chronic bradycardia: Stable, asymptomatic, will continue beta-deondre therapy and may add hold parameters as needed. #10. Monoclonal gammopathy: Following with Dr. Magana, hematology/oncology, noted kappa light chain present, encourage continued outpatient follow-up. #11. GERD: As noted given presentation currently maintained on Protonix. #12. Hypertension: Continue home regimen including Coreg, given low BP temporally holding amlodipine as well as any nephrotoxic medications, PRN hydralazine. #13. DVT prophylaxis: SCDs. #14. CODE STATUS: DNR-CCA, no intubation. Charges/Coding Visit Charges Inpatient E&M: 85808 Subs Hosp L3
--- NOTE | 2023-01-30 07:50 | EGD_PTH ---
PATIENT: MARY COLÓN Sr. LOC: [facility] U#:[id number] AGE/SX: 87/M [place] [facility] [place]: Dr. Vic uCmmings DO : 1935 BED: 1 DIS: 02/02/2023 SPEC #: [id number] RECD: 02/01/23 08:14 STATUS: STEFAN MART #: [id number] JOSE: 01/30/23 07:[address]: Aden Carey DEPT: SURGICAL PATHOLOGY RECD BY: Suyapa Chandler ENTERED: 02/01/23 11:11 SP TYPE: EGD BIOPSY OTHR DR: MD Dr. Jaime Pham MD Dr. Kathryn Lee, DO Dr. Mark Tereletsky, Tissues: A - Duodenum, NOS B - Gastric mucous membrane Procedures: Surgery Specimen Level IV Comments: @ Ordering doctor for SUIV edited from to @ by BUSHRA at 02/01/23 1427 @ Submitting doctor edited from to @ by RGOOD at 02/01/23 1427 HEADER OPERATION: EGD with biopsies PRE-OP DIAGNOSIS: GI bleed, ulcer TISSUE SUBMITTED: A - Duodenal polyp biopsy, B - Gastric body biopsy MICROSCOPIC DIAGNOSIS A. Duodenal polyp, biopsy: Fragments of tubular adenoma. B. Gastric body, biopsy: Moderate gastritis. See microscopic description and comment. SJ:ita 02/02/2023 COMMENT B. The results of immunohistochemistry for Helicobacter pylori will be reported separately ([id number]). MICROSCOPIC DESCRIPTION Slides are reviewed. B. The specimen shows fragments of gastric mucosa with chronic inflammatory cell infiltrates in the lamina propria consisting of lymphocytes and plasma cells, consistent with moderate chronic gastritis. GROSS DESCRIPTION A - Received in fixative is one container labeled with the patient's name and designated duodenal polyp biopsy. The specimen consists of two irregular fragments of light white soft tissue that in aggregate measure 0.8 x 0.3 x 0.1 cm. The specimen is totally submitted in one cassette. B - Received in fixative is one container labeled with the patient's name and designated gastric body biopsy. The specimen consists of two irregular fragments of light white soft tissue that in aggregate measure 0.6 x 0.4 x 0.1 cm. The specimen is totally submitted in one cassette. / SJ:rg 02/01/2023 TC:1 CPT: 46594 x2
--- NOTE | 2023-01-30 07:50 | IMM_PTH ---
PATIENT: MARY COLÓN Sr. LOC: 3 U#:[id number] AGE/SX: 87/M [place] [facility] [place]: Dr. Vic Cummings DO : 1935 BED: 1 DIS: 02/02/2023 SPEC #: [id number] RECD: 02/01/23 14:26 STATUS: STEFAN RERafita #: [id number] JOSE: 01/30/23 07:[address]: Aden Carey DEPT: IMMUNOHISTOCHEMISTRY RECD BY: Claire Barrera ENTERED: 02/01/23 14:27 SP TYPE: IMMUNO OTHR DR: MD Dr. Jaime Pham MD Dr. Kathryn Lee, DO Dr. Mark Tereletsky, DO Tissues: B - Stomach, NOS Procedures: H Pylori (initial) PHYSICIAN & INSTITUTION [place] [id number] SPECIMEN INFORMATION: Tissue Source: B - Gastric body Clinical Info: GI bleed, ulcer Specimen Number: [id number] CPT code: 21250 METHODOLOGY: Deparaffinized sections of prefer/formalin-fixed tissue or PAP/DQ stained slides are incubated with monoclonal/polyclonal antibodies/oligonucleotide probes. Localization is made via biotin free immunoperoxidase method. Appropriate controls are performed and reacted as expected. Results on target cell population are indicated in the following table: RESULTS: ANTIBODY / CLONE RESULT Block B H Pylori (polyclonal) negative These tests were developed and their performance characteristics determined by [facility]. They may not have been cleared or approved by the [place]. Food and Drug Administration. The FDA has determined that such clearance or approval is not necessary. The above immunohistochemical/dualISH markers are ordered and reviewed by the Pathologist. INTERPRETATION: B. Gastric body, biopsy: Negative for Helicobacter pylori organisms. SJ:ita 02/02/2023
--- NOTE | 2023-01-30 08:18 | EX.PCM.CON.G ---
HPI Consult Data Date of Consult: 01/30/23 HPI Narrative Reason for Consultation: GI bleed and abnormal CT scan HPI Narrative: MARY COLÓN, is a 87 M who presents with abdominal pain. The history is from him and the chart. He has been having some abdominal discomfort for about 3 or so days. He is not moving his bowels well. He has nausea but no vomiting. He has not really been eating and drinking much. He denies urinary symptoms. He was seen today as an outpatient. He had blood work and plain films that were concerning for small bowel obstruction and dehydration. I do not have access to these results. He was sent in here for evaluation. Of note, it sounds like the patient may have had an inguinal hernia repair in the past but no other abdominal surgery. No history of cancer. No recent weight loss. No trauma. Nothing I can get makes the symptoms better or worse. He sustained a recent intercerebral hemorrhage and was admitted [facility] however they were told there he did not have a stroke or intracranial bleed. He was then admitted here for dehydration and was noted to be significantly weak by physical and Occupational Therapy. Acute rehab admission was recommended and he was transferred to the acute rehab unit here at the hospital. He was discharged there on 01/11/2023 and was admitted to [facility] for ongoing care. He was then discharged to the assisted living facility. It appears that he was having downtrending hemoglobin. His most recent hemoglobin on 01/13/2023 was 10.9 but it appears his baseline earlier this year was running between 11.5 and 13. Chemistry panel shows mild hyponatremia with a sodium of 133, mild hypokalemia with potassium of 3.4, his BUN was 39 and his serum creatinine was 2.50 (baseline serum creatinine is 1.15-1.4). Liver functions are normal and his lipase is 77. Low voltage with intermittent irregularity but does not appear to be atrial fibrillation. CT of the abdomen pelvis was performed given his findings and commented on thickening at the gastric antrum with possible ulceration and concern for possible gastric ulcer. I was consulted to evaluate his abdominal pain and CT scan findings. [facility] Medical History A-fib BPH (benign prostatic hyperplasia) Chronic renal failure, stage 3a Dark stools Fall GERD (gastroesophageal reflux disease) H/O normocytic normochromic anemia Hypertension Neuropathic pain Restless legs syndrome Home Medications multivitamin 1 ea PO DAILY supplement 07/02/15 [History Last Taken Unknown] finasteride 5 mg tablet 5 mg PO QDAY urinary retention 05/17/17 [History Last Taken Unknown] amlodipine 2.5 mg tablet 2.5 mg PO DAILY blood pressure 12/31/22 [History Last Taken Unknown] ferrous sulfate 325 mg (65 mg iron) tablet (FeroSul) 325 mg PO DAILY suppliment 12/31/22 [History Last Taken 12/31/22] acetaminophen 325 mg tablet 650 mg (2 x 325 mg) PO Q6H PRN PRN Pain Score 1-10 #1 TAB 01/11/23 [Rx Last Taken Unknown] benzonatate 100 mg capsule 100 mg PO Q6H PRN cough 01/29/23 [History Last Taken Unknown] bisacodyl 10 mg rectal suppository 10 mg NJ DAILY PRN constipation 01/29/23 [History Last Taken Unknown] carvedilol 3.125 mg tablet 6.25 mg PO BIDCM 01/29/23 [History Last Taken Unknown] furosemide 40 mg tablet 40 mg PO DAILY 01/29/23 [History Last Taken Unknown] hydrocortisone acetate 25 mg rectal suppository 25 mg NJ BID Hemorrhoidal pain 01/29/23 [History Last Taken Unknown] lisinopril 40 mg tablet 40 mg PO DAILY 01/29/23 [History Last Taken Unknown] melatonin 5 mg capsule 5 mg PO QHS 01/29/23 [History Last Taken Unknown] omeprazole 20 mg capsule,delayed release 20 mg PO Q8H 01/29/23 [History Last Taken Unknown] terazosin 5 mg capsule 5 mg PO QHS 01/29/23 [History Last Taken Unknown] Allergy/AdvReac Type Severity Reaction Status Date / Time Penicillins Allergy Rash Verified 01/29/23 19:17 Family History Mother Cirrhosis of liver Surgical History H/O hernia repair Hx of cholecystectomy S/P right rotator cuff repair Unspecified nasal polyp Social History (Updated 01/29/23 @ 23:[address] Isidra Rodriguez DO) household members: spouse housing: assisted living facility current occupational status: retired Smoking Status: Former smoker how long ago did patient quit smokin years ago ROS ROS Narrative Review of systems was difficult due to patient's dementia Constitutional Constitutional: Reports anorexia, fatigue and weakness; Denies change in weight, chills, fever(s), malaise, night sweats or other Eyes Eyes: Denies blurry vision, change in eye color, change in vision, discharge from eye(s), double vision, erythema, eye pain, loss of vision or other ENT HEENT: Reports abnormal hearing and hearing loss; Denies dysphagia, ear pain, epistaxis, headache(s), nasal congestion, nasal discharge, post nasal drip, sinus pressure, sore throat or other Cardiovascular Cardiovascular: Denies chest pain, claudication, dyspnea on exertion, edema, lightheadedness, orthopnea, palpitations, paroxysmal nocturnal dyspnea, rapid heart rate, syncope or other Respiratory/Chest Respiratory/Chest: Denies cough, dyspnea, excessive phlegm production, hemoptysis, productive cough, shortness of breath at rest, shortness of breath with exertion, wheezing or other Gastrointestinal Gastrointestinal: Reports abdominal pain, dyspepsia and nausea; Denies coffee ground emesis, constipation, diarrhea, hematemesis, hematochezia, loose stools, melena, vomiting or other Genitourinary Genitourinary: Denies burning urination, difficulty urinating, dysuria, hematuria, nocturia, urinary frequency, urinary hesitancy, urinary incontinence, urinary urgency or other Musculoskeletal Musculoskeletal: Denies arthralgias, back pain, joint pain, joint stiffness, joint swelling, myalgias, neck pain or other Neurologic Neurologic: Reports other Details: Memory loss ; Denies abnormal gait, abnormal speech, confusion, disequilibrium, dizziness, focal weakness, headache(s), numbness, paresthesias, seizure-like activity, seizures, syncope, tingling or tremor(s) Psychiatric Psychiatric: Denies anxiety, depression, homicidal ideation, suicidal ideation or other Endocrine Endocrinology: Denies change in body appearance, cold intolerance, excessive sweating, heat intolerance, polydipsia, polyuria or other Hematologic/Lymphatic Hematologic/Lymphatic: Denies anemia, easy bleeding, easy bruising, lymphadenopathy or other Allergic/Immunologic Allergic/Immunologic: Denies rhinitis, hives, eczemia, asthma or other Physical Exam Const alert, no apparent distress and average body habitus Constitutional Narrative: Elderly white male, General Appearance: cooperative HEENT normocephalic and head/scalp atraumatic Eyes PERRL and EOMs intact bilaterally; Negative for conjunctivae normal Eyes Narrative: Mild conjunctival pallor bilaterally, no scleral icterus Neck no lymphadenopathy and supple Neck Narrative: Trachea midline, no thigh Resp normal respiratory effort, no retractions, no use of accessory muscles and clear to auscultation bilaterally Auscultation: Negative for rales, rhonchi or wheezes Cardio regular rhythm, S1 normal heart sound, S2 normal heart sound, no murmurs, no rub, no gallops and no clicks Cardio Narrative: Bradycardia GI normal to inspection, nondistended, normoactive bowel sounds and soft to palpation GI Narrative: Tenderness diffusely Extremity no clubbing, cyanosis or edema Extremity Narrative: Pedal pulses are 2+, patient with decreased lean muscle mass Skin no rashes or lesions noted, no wounds, No skin turgor normal, no jaundice, no petechiae and no mottling Skin Narrative: Skin turgor is abnormal with tenting Neuro CN's II-XII intact bilaterally, moves all extremities and no focal motor deficits Neuro Narrative: Oriented to self, severe generalized weakness Speech: speech normal Psych affect normal Psych Narrative: Eye contact is good, patient answers questions appropriately but is somewhat forgetful Lab / Micro Data 01/30/23 04:50 01/30/23 04:50 Labs: Laboratory Results - last 24 hr 01/29/23 20:10: WBC 10.4, RBC 3.76 L, Hgb 12.4 L, Hct 37.0 L, MCV 98.4 H, MCH 33.0 H, MCHC 33.5, RDW Std Deviation 49.1 H, RDW Coeff of Donald 13.6, Plt Count 301, MPV 10.1, Immature Gran % (Auto) 0.500, Neut % (Auto) 68.9, Lymph % (Auto) 19.9, [place] % (Auto) 9.4, Eos % (Auto) 0.9, Baso % (Auto) 0.4, Absolute Neuts (auto) 7.2, Absolute Lymphs (auto) 2.07, Nucleated RBC % 0, Sodium 133 L, Potassium 3.4 L, Chloride 98, Carbon Dioxide 24.0, Anion Gap 11, BUN 39 H, Creatinine 2.50 H, Estim Creat Clear Calc 20.20, Est GFR (MDRD) Af Amer 32 L, Est GFR (MDRD) Non-Af 26 L, BUN/Creatinine Ratio 15.6, Glucose 101, Calcium 9.0, Total Bilirubin 0.70, AST 22, ALT 33, Alkaline Phosphatase 136 H, Total Protein 7.7, Albumin 3.5, Globulin 4.2, Albumin/Globulin Ratio 0.8 L, Lipase 77 H 01/30/23 02:30: Urine Color Yellow, Urine Clarity Clear, Urine pH 6.5, Ur Specific [place] 1.010, Urine Protein 15 H, Urine Glucose (UA) Normal, Urine Ketones 5 H, Urine Occult Blood 25 H, Urine Nitrite Negative, Urine Bilirubin Negative, Urine Urobilinogen Normal, Ur Leukocyte Esterase Negative, Urine RBC 0-5 SEEN, Urine WBC 0 SEEN, Ur Squamous Epith Cells 0 SEEN, Urine Bacteria RARE, Urine Mucus 0 SEEN 01/30/23 04:50: WBC 7.4, RBC 3.34 L, Hgb 11.1 L, Hct 33.6 L, MCV 100.6 H, MCH 33.2 H, MCHC 33.0, RDW Std Deviation 51.1 H, RDW Coeff of Donald 13.9, Plt Count 266, MPV 11.0, Immature Gran % (Auto) 0.400, Neut % (Auto) 61.4, Lymph % (Auto) 25.5, Grayson % (Auto) 9.9, Eos % (Auto) 2.3, Baso % (Auto) 0.5, Absolute Neuts (auto) 4.5, Absolute Lymphs (auto) 1.88, Nucleated RBC % 0, Sodium 137, Potassium 4.1, Chloride 103, Carbon Dioxide 25.0, Anion Gap 9, BUN 37 H, Creatinine 2.42 H, Estim Creat Clear Calc 20.14, Est GFR (MDRD) Af Amer 33 L, Est GFR (MDRD) Non-Af 27 L, BUN/Creatinine Ratio 15.3, Glucose 94, Calcium 8.5, Phosphorus 4.1, Magnesium 2.0, TSH 1.82 Micro: Microbiology 01/29/23 22:20 Stool Stool Occult Blood (ABBIE) - Final Radiology Impression Abdomen/Pelvis CT 08/25/23 20:02 IMPRESSION: Possible gastric ulcer. Other incidental findings as above. Electronically Signed: Pranav Owusu MD at 21:36 EDT , Assessment & Plan Assessment/Plan (1) Dehydration: (2) Abdominal pain: (3) Anemia: (4) Acute kidney injury: (5) Abnormal CT of the abdomen: PLAN: Plan 87-year-old gentleman with recent intracranial hemorrhage with no known deficits presents with worsening nausea, abdominal pain and discovered to have gastric ulcer and acute kidney injury. Abdominal pain/nausea -CT is suggestive of gastric ulcer and with recent drop in hemoglobin from previous baseline needs EGD -Protonix drip -Antiemetics as needed -As needed morphine for pain -N.p.o. at midnight -Clear liquid diet for now Anemia -Patient was guaiac negative at the end of December -Repeat guaiac is pending -Hemoglobin has been dropping -Suggestion of possible ulceration on EGD with thickening -Repeat CBC in a.m.--> anticipate drop in hemoglobin as patient is severely hemoconcentrated currently Charges/Coding Visit Charges Inpatient E&M: 96712 Init Hosp L3
--- NOTE | 2023-01-30 08:46 | OP.CCLET_ITS ---
01/30/2023 Jaime Johnson Re : Upper GI endoscopy procedure for Atif Ramires Dear Alex This procedure was performed on Monday, January 30, 2023. My impressions and recommendations are as follows: Impressions : - Normal esophagus. - Chronic gastritis. Biopsied. - Non-bleeding gastric ulcer with pigmented material. Treated with argon plasma coagulation (APC). - A single duodenal polyp. Resected and retrieved. Recommendations : - [facility]. - Use sucralfate tablets 1 gram PO QID. - Use Protonix (pantoprazole) 40 mg PO daily. - Continue present medications. - No aspirin, ibuprofen, naproxen, or other non-steroidal anti-inflammatory drugs. My findings are described in the full procedure note, which is enclosed. If I can be of further assistance, please feel free to contact me at . Sincerely, Aden Carey, 01/30/2023 8:45:47 AM This report has been signed electronically.
--- NOTE | 2023-01-30 08:46 | OP.EGD_ITS ---
Patient Name: Atif Ramires Procedure Date: 01/30/2023 8:25 AM Date of : 1935 Age: 87 Procedure: Upper GI endoscopy Indications: Epigastric abdominal pain, Iron deficiency anemia, Melena, Abnormal CT of the GI tract Providers: Aden Carey DO Medicines: Monitored Anesthesia Care Patient Profile: This is an 87 year old male. Refer to note in patient chart for documentation of history and physical. Patient has symptoms of acute epigastric abdominal pain. Complications: No immediate complications. Procedure: Pre-Anesthesia Assessment: - Prior to the procedure, a History and Physical was performed, and patient medications and allergies were reviewed. The patient is competent. The risks and benefits of the procedure and the sedation options and risks were discussed with the patient. All questions were answered and informed consent was obtained. Patient identification and proposed procedure were verified by the physician in the pre-procedure area. Mental Status Examination: alert and oriented. Airway Examination: normal oropharyngeal airway and neck mobility. Respiratory Examination: clear to auscultation. CV Examination: normal. Prophylactic Antibiotics: The patient does not require prophylactic antibiotics. Prior Anticoagulants: The patient has taken no anticoagulant or antiplatelet agents. After reviewing the risks and benefits, the patient was deemed in satisfactory condition to undergo the procedure. The anesthesia plan was to use monitored anesthesia care (MAC). Immediately prior to administration of medications, the patient was re-assessed for adequacy to receive sedatives. The heart rate, respiratory rate, oxygen saturations, blood pressure, adequacy of pulmonary ventilation, and response to care were monitored throughout the procedure. The physical status of the patient was re-assessed after the procedure. After obtaining informed consent, the endoscope was passed under direct vision. Throughout the procedure, the patient's blood pressure, pulse, and oxygen saturations were monitored continuously. The gastroscope was introduced through the mouth, and advanced to the second part of duodenum. The upper GI endoscopy was accomplished without difficulty. The patient tolerated the procedure well. Scope In: 8:34:36 AM Scope Out: 8:37:57 AM Total Procedure Duration Time 0 hours 3 minutes 21 seconds Findings: The examined esophagus was normal. Diffuse moderate inflammation characterized by congestion (edema) and erythema was found in the gastric body. Biopsies were taken with a cold forceps for Helicobacter pylori testing. Verification of patient identification for the specimen was done. Estimated blood loss was minimal. Biopsies were taken with a cold forceps for histology. Biopsies were taken with a cold forceps for histology. Verification of patient identification for the specimen was done. Estimated blood loss was minimal. One non-bleeding linear gastric ulcer with pigmented material was found in the gastric body. The lesion was 4 mm in largest dimension. Coagulation for hemostasis using argon plasma at 0.3 liters/minute and 20 adam was successful. Estimated blood loss was minimal. A single 8 mm sessile polyp was found in the first portion of the duodenum. The polyp was removed with a cold snare. Resection and retrieval were complete. Verification of patient identification for the specimen was done. Estimated blood loss was minimal. Impression: - Normal esophagus. - Chronic gastritis. Biopsied. - Non-bleeding gastric ulcer with pigmented material. Treated with argon plasma coagulation (APC). - A single duodenal polyp. Resected and retrieved. Recommendation: - Return patient to [facility] for ongoing care. - Use sucralfate tablets 1 gram PO QID. - Use Protonix (pantoprazole) 40 mg PO daily. - Continue present medications. - No aspirin, ibuprofen, naproxen, or other non-steroidal anti-inflammatory drugs. Procedure Code(s): --- Professional --- 22258, 59, Esophagogastroduodenoscopy, flexible, transoral; with control of bleeding, any method 88093, Esophagogastroduodenoscopy, flexible, transoral; with removal of tumor(s), polyp(s), or other lesion(s) by snare technique 85558, 59,51, Esophagogastroduodenoscopy, flexible, transoral; with biopsy, single or multiple CPT copyright 2021 [employer]. All rights reserved. The codes documented in this report are preliminary and upon luggage repairer review may be revised to meet current compliance requirements. Aden Carey DO 01/30/2023 8:45:47 AM This report has been signed electronically. Number of Addenda: 0 Note Initiated On: 01/30/2023 8:25 AM
[2023-01-30] MEDS: Multivitamins,Therapeutic Tablet 1 TABLET PO (10:49)
[2023-01-30] MEDS: Finasteride 5 MG Tablet PO (10:49)
[2023-01-30] MEDS: Sucralfate 1 GM Tablet PO ×2 (10:50→15:50)
[2023-01-30] MEDS: Ferrous Sulfate 325 MG Tablet PO (10:52)
[2023-01-30] MEDS: Carvedilol 3.125 MG TABLET PO ×2 (10:52→15:50)
--- NOTE | 2023-01-30 14:43 | CASEMGMT ---
Social Work SW reviewed chart, pt is here from [facility]. Pt's main contact as per the chart is daughter Sindy Hernandez. SW called pt's daughter. Daughter Sindy confirms she is pt's POA for healthcare, she will bring in the documents. She explains that pt went to [facility] from [facility] just on Wednesday. She states she would like pt to return to [facility] if able. SW explained spoke w/the physician, it is anticipated pt will be here through the weekend. SW will follow up w/[facility] and family on Wednesday. Plan: TBD, most likely pt to return to [facility] at discharge. RICHARD Gurrola
[2023-01-30] MEDS: Doxazosin 4 MG Tablet PO (21:15)
[2023-01-30] MEDS: MELATONIN 10 MG TABLET 5 MG PO (21:15)
[2023-01-30] MEDS: Donepezil HCl 5 MG Tablet PO (21:16)
[2023-01-31 03:12] VITALS: BP 130/60; PULSE 96; RESP 18; TEMP 36.4; O2SAT 97
[2023-01-31 05:09] VITALS: BMI 27.1
--- NOTE | 2023-01-31 06:16 | PCM.PN.HOSP ---
Reason for Visit Reason for Visit: Diagnoses Anemia, unspecified (01/29/23) Dehydration (01/29/23) Acute kidney failure, unspecified (01/29/23) Unspecified abdominal pain (01/29/23) Abnormal findings on diagnostic imaging of other abdominal regions, including retroperitoneum (01/29/23) Subjective Subjective Patient today reporting abdominal discomfort and nausea although overnight no issues per nursing report. Given this discussed plan for transition to clears and continue IV PPI in the interim until clinically improving. He had refused adamantly labs this morning but talked at length and he is willing to have his renal function and his hemoglobin levels assessed at this time. Patient denies fevers, chills, nausea, chest pain or dyspnea. Objective Data Objective Data Vital Signs: Vital Signs Temp Pulse Resp BP Pulse Ox O2 Del Method 97.6 F L 96 18 130/60 H 97 Room Air 01/31/23 03:12 01/31/23 03:12 01/31/23 03:12 01/31/23 03:12 01/31/23 03:12 01/31/23 03:12 Oxygen Delivery Method Room Air Weight: 173 lb 1.006 oz Body Mass Index (BMI) 27.1 Intake & Output: Intake and Output for Last 24 Hours 01/29/23 01/30/23 01/31/23 23:59 23:59 23:59 Intake Total 1035 / 1035 2397.00 / 2647.00 450 / 450 Output Total 950 / 1250 700 / 700 Balance 1035 / 1035 1447.00 / 1397.00 -250 / -250 Lab / Micro Data 01/30/23 04:50 01/30/23 04:50 Labs: Laboratory Results - last 24 hr 01/30/23 04:50: Sodium 137, Potassium 4.1, Chloride 103, Carbon Dioxide 25.0, Anion Gap 9, BUN 37 H, Creatinine 2.42 H, Estim Creat Clear Calc 20.14, Est GFR (MDRD) Af Amer 33 L, Est GFR (MDRD) Non-Af 27 L, BUN/Creatinine Ratio 15.3, Glucose 94, Calcium 8.5, Phosphorus 4.1, Magnesium 2.0, TSH 1.82 Micro: Microbiology 01/29/23 22:20 Stool Stool Occult Blood (ABBIE) - Final Physical Exam Narrative Physical Examination: General: Awake, alert, oriented to self, place and race events, today initially very adamant against lab draws, discussed at length and now willing, fatigued appearing, reporting some nausea and abdominal cramping. Skin: Normal color, normal turgor, no icterus, no cyanosis except occasional staged ecchymoses. HEENT: AT/NC, EOMI, PERRLA, mildly dry MM. Lungs: C mildly diminished, greater bases, proper effort, no rales, ronchi or wheezing. Heart: Regular rate and rhythm; no gallop, rub audible. Abdomen: Soft, generalized discomfort but very hesitant to have any feels abdomen, no marked distention, hyperactive BS, Mcclendon in place. Extremities: No cyanosis, clubbing, or edema. Neurological: Patient awake, alert, oriented as noted, cognitive function intact; pupils equally reactive to light and accommodation, cranial nerves II-XII grossly normal, moving all 4 extremities, no focal deficits, strength moderately to severely global decreased. Psychiatric: Affect appears mildly irritable today, no acute evidence of depressive or anxiety feelings. Assessment & Plan Assessment/Plan (1) Abdominal pain: PLAN: Plan The patient is an 87 y/o M w/ PMHx: CKD stage IIIb, HTN, HLD, BPH, Chronic anemia/Fe deficiency anemia, Chronic Bradycardia, Dementia unclear type with unclear behavioral disturbance history, Monoclonal gammopathy, GERD who presents to the [facility] ED on 01/29/23 with history of decreased oral intake for at least the last 3 days with associated nausea without emesis with last BM 2 days prior with ongoing generalized abdominal pain prompting ED evaluation. #1. Intractable Abdominal Pain with nausea, decreased oral intake, suspected Gastric etiology, possibly Ulcer: Negative guaiac however CT abdomen pelvis with possible gastric ulcer with otherwise no acute findings, admission hemoglobin 12.4, repeat this morning 01/30/23 Hgb 11.1 which is similar to his baseline from 12/29/2022 onward, maintained on continuous PPI infusion, 01/30/23 EGD with noted chronic gastritis which was biopsied as well as a nonbleeding gastric ulcer with pigmented material treated with argon plasma coagulation as well as a single duodenal polyp that was resected and retrieved with initiation of sucralfate 1 g p.o. 4 times daily, Protonix continued regimen with transition amenable to 40 mg p.o. daily as well as avoidance of any aspirin/ibuprofen/naproxen or other NSAID drugs. Completed PPI infusion 01/30/23 9 PM-->transitioned to daily PPI oral regimen. Overnight into 01/31/2023 unfortunately patient with decreased intake with complaint of abdominal cramping and nausea, will transition to clear liquids and avoid advancing diet, will also transition back to IV PPI until clinically improving and discussed administration of antiemetic with patient. Patient has been very resistant to lab repeat check however now amenable with CBC requested and awaiting lab draw. #2. Acute kidney injury on CKD stage IIIb: Secondary to poor oral intake coupled with possibly nephrotoxic medication. Admission BUN/Cr 39/2.50, prior baseline creatinine noted to be primarily 1.1-1.4, 01/30/2023 BUN/creatinine to 37/2.42-->01/31/23 pending as patient had initially adamantly refused labs, now willing. Continue judicious hydration with noted acute presentation #1, holding diuretics as well as lisinopril, continue to trend and if worsens or not improving low threshold to obtain FeNa/renal consultation. #3. Anemia, chronic since most recent admission, currently macrocytic on Chronic Fe Deficiency anemia: Guaiac negative at the end of December, repeat guaiac here negative, admission hemoglobin 12.4, MCV 98.4, 01/30/2023 Hgb 11.1, MCV 100.6, trended down since December admission, CT as noted with possible ulceration with concern for gastric ulcer. Vitamin B12 1669 and folic acid levels 43.20. 01/30/23 EGD with noted chronic gastritis which was biopsied as well as a nonbleeding gastric ulcer with pigmented material treated with argon plasma coagulation as well as a single duodenal polyp that was resected and retrieved. As noted above unfortunately patient with abdominal cramping, nausea 02/01/2020 3 AM, transition down to clears until improving with continued sucralfate and will transition back to IV PPI until sure appropriate oral intake. Per GI will continue to avoid any aspirin/ibuprofen/naproxen or other NSAID drugs. #4. Debility, generalized weakness, adult failure to thrive: Likely contributed to by acute presentation as noted #1, #2, #3, maintain on fall precautions, PT and OT consultations requested as well as case management for possible skilled transition, family does not want patient to return to [facility] of [facility] and would prefer other facility. #5. BPH with urinary retention: Continue patient home finasteride and terazosin regimen, Mcclendon catheter currently in place, will attempt discontinuation 01/31/2023 with continued close monitoring. If again he has recurrent may consider also adding Flomax but again he is already on dual agents thus could consider leaving in place and having him follow-up with urology outpatient if this becomes an issue. #6. Hypokalemia: Admission K+ 3.4, supplementation given, repeat level 01/30/23 4.1, 01/31/23 pending as patient initially adamantly refusing labs, now amenable, requested lab to come draw now. #7. Recent Radiology Reported Intracranial hemorrhage: Recent transition to [facility], CT 12/24/2022 with reported acute parenchymal hemorrhage in the left thalamic without any mass effect or midline shift with age consistent senescent changes and normal ventricles and cisterns for patient's age however family report upon current presentation is that they were told he did not have any hemorrhage so is unclear if MRI over at the other facility did not demonstrate any acute findings. #8. Dementia, unclear type with reported behavioral disturbance history: We will continue home Aricept regimen, complicates presentation, PT/OT/case management consulted for discharge planning, maintain on fall and aspiration precautions. #9. Chronic bradycardia: Stable, asymptomatic, will continue beta-deondre therapy and may add hold parameters as needed. #10. Monoclonal gammopathy: Following with Dr. Magana, hematology/oncology, noted kappa light chain present, encourage continued outpatient follow-up. #11. GERD: As noted given presentation currently maintained on Protonix. #12. Hypertension: Continue home regimen including Coreg, given low BP temporally holding amlodipine as well as any nephrotoxic medications, PRN hydralazine. #13. DVT prophylaxis: SCDs. #14. CODE STATUS: DNR-CCA, no intubation. Charges/Coding Visit Charges Inpatient E&M: 11719 Subs Hosp L2
[2023-01-31] MEDS: Sucralfate 1 GM Tablet PO ×3 (06:36→16:15)
[2023-01-31 07:59] VITALS: O2SAT 98
[2023-01-31 09:00] VITALS: BP 125/65; PULSE 87; RESP 18; TEMP 36.7; O2SAT 99
[2023-01-31] MEDS: Carvedilol 3.125 MG TABLET PO ×2 (09:15→16:15)
[2023-01-31] MEDS: Ferrous Sulfate 325 MG Tablet PO (09:15)
[2023-01-31] MEDS: Pantoprazole Sodium 40 MG Tablet PO (09:15)
[2023-01-31] MEDS: Multivitamins,Therapeutic Tablet 1 TABLET PO (09:15)
[2023-01-31] MEDS: Finasteride 5 MG Tablet PO (09:15)
--- NOTE | 2023-01-31 10:06 | EX.PCM.PN.GI ---
Subjective Subjective Patient is status post EGD for anemia and abnormal imaging. No problems overnight. He is tolerating a diet. Objective Data Objective Data Vital Signs: Vital Signs Temp Pulse Resp BP Pulse Ox O2 Del Method 97.6 F L 96 18 130/60 H 98 Room Air 01/31/23 03:12 01/31/23 03:12 01/31/23 03:12 01/31/23 03:12 01/31/23 07:59 01/31/23 07:59 Oxygen Delivery Method Room Air Weight: 173 lb 1.006 oz Body Mass Index (BMI) 27.1 Intake & Output: Intake and Output for Last 24 Hours 01/29/23 01/30/23 01/31/23 23:59 23:59 23:59 Intake Total 1035 / 1035 2397.00 / 2647.00 450 / 450 Output Total 950 / 1250 700 / 700 Balance 1035 / 1035 1447.00 / 1397.00 -250 / -250 Lab / Micro Data 01/30/23 04:50 01/30/23 04:50 Micro: Microbiology 01/29/23 22:20 Stool Stool Occult Blood (ABBIE) - Final Assessment & Plan Assessment/Plan (1) Dehydration: (2) Abdominal pain: (3) Anemia: (4) Acute kidney injury: (5) Abnormal CT of the abdomen: PLAN: Plan Abdominal pain/nausea -CT is suggestive of gastric ulcer and with recent drop in hemoglobin from previous baseline. EGD showed a gastric ulcer which was treated endoscopically -He is off of the Protonix drip and was transitioned to p.o. Protonix. Continue that for 8 weeks. He will need a repeat upper endoscopy to make sure everything is healed up. Await the biopsies from the duodenal polyp that was removed. Anemia -Patient was guaiac negative at the end of December -Repeat guaiac is pending -Hemoglobin was been dropping -Gastric ulceration on EGD with thickening - Charges/Coding Visit Charges Inpatient E&M: 51393 Subs Hosp L3
[2023-01-31 12:15] LABS: Absolute Lymphocyte Count 1.37 X10^3/uL (0.83-4.51); Absolute Neutrophil Count 6.7 X10^3/uL (2.0-7.7); Basophil# 0.03 X10^3/uL; Basophil% 0.3 % (0-1); Eosinophil# 0.25 X10^3/uL; Eosinophils% 2.8 % (0-5); Hemoglobin 10.8 g/dL (13.0-16.5); Lymphocyte # 1.37 X10^3/ul (0.83-4.51); Lymphocyte % 15.1 % (19-41); Mean Corp Hgb Conc 34.8 g/dL (32-36); Mean Corpuscular Hgb 34.2 pg (27.0-32.0); Mean Corpuscular Volume 98.1 fL (80-94); Mean Platelet Vol. 10.1 fl (6.2-12.0); Monocyte# 0.72 X10^3/uL; Monocyte% 7.9 % (0-10); NRBC Flagged by Analyzer 0 % (0-5); Neutrophil # 6.68 X10^3/uL (2.7-7.7); Neutrophil % 73.6 % (47-70); Platelet Count 224 K/mm3 (150-450); RBC Distribution Width CV 13.4 % (11.6-14.6); RBC Distribution Width SD 48.4 fl (35.1-43.9); Red Blood Count 3.16 M/mm3 (4.6-6.2); White Blood Count 9.1 K/mm3 (4.4-11.0)
[2023-01-31 12:45] LABS: ALB/GLOB Ratio 0.9 RATIO (0.9-2.4); AST(SGOT) 16 U/L (15-37); Alanine Aminotransfer ALT/SGPT 25 U/L (16-61); Albumin, Serum 2.9 g/dL (3.2-5.0); Alkaline Phosphatase 110 U/L (45-117); Anion Gap 9 (5-15); BUN 27 mg/dL (7-18); Calcium,Total 8.4 mg/dL (8.5-10.1); Chloride 106 mmol/L (98-107); Creatinine, Serum 1.35 mg/dL (0.70-1.30); EST Glomerular Filtration Rate 53 mL/min (>60); Est Glom Filt Rate - Afr Amer 65 mL/min (>60); Globulin 3.4 g/dL (2.2-4.2); Glucose 99 mg/dL (74-106); Potassium 3.3 mmol/L (3.5-5.1); Protein, Total 6.3 g/dL (6.4-8.2); Sodium Level 138 mmol/L (136-145)
[2023-01-31] MEDS: Potassium Chloride Oral Tablet 20 MEQ 40 MEQ PO (14:10)
[2023-01-31 15:00] VITALS: BP 105/58; PULSE 95; RESP 18; TEMP 36.4; O2SAT 95
[2023-01-31 21:00] VITALS: BP 112/40; PULSE 50; RESP 18; TEMP 36.9; O2SAT 96
[2023-01-31] MEDS: MELATONIN 10 MG TABLET 5 MG PO (21:29)
[2023-01-31] MEDS: Donepezil HCl 5 MG Tablet PO (21:29)
[2023-01-31] MEDS: Doxazosin 4 MG Tablet PO (21:29)
[2023-02-01 03:00] VITALS: BP 124/52; PULSE 57; RESP 16; TEMP 36.9; O2SAT 98
[2023-02-01] MEDS: Sucralfate 1 GM Tablet PO ×3 (05:51→18:08)
[2023-02-01 06:59] LABS: Absolute Lymphocyte Count 1.81 X10^3/uL (0.83-4.51); Absolute Neutrophil Count 5.7 X10^3/uL (2.0-7.7); Basophil# 0.03 X10^3/uL; Basophil% 0.4 % (0-1); Eosinophil# 0.33 X10^3/uL; Eosinophils% 3.9 % (0-5); Hematocrit 31.3 % (40-54); Hemoglobin 10.3 g/dL (13.0-16.5); Lymphocyte # 1.81 X10^3/ul (0.83-4.51); Lymphocyte % 21.2 % (19-41); Mean Corp Hgb Conc 32.9 g/dL (32-36); Mean Corpuscular Hgb 33.7 pg (27.0-32.0); Mean Corpuscular Volume 102.3 fL (80-94); Mean Platelet Vol. 11.2 fl (6.2-12.0); Monocyte# 0.64 X10^3/uL; Monocyte% 7.5 % (0-10); NRBC Flagged by Analyzer 0 % (0-5); Neutrophil % 66.8 % (47-70); Platelet Count 207 K/mm3 (150-450); RBC Distribution Width CV 13.6 % (11.6-14.6); RBC Distribution Width SD 51.5 fl (35.1-43.9); Red Blood Count 3.06 M/mm3 (4.6-6.2); White Blood Count 8.5 K/mm3 (4.4-11.0)
[2023-02-01 07:27] LABS: ALB/GLOB Ratio 0.8 RATIO (0.9-2.4); AST(SGOT) 15 U/L (15-37); Alanine Aminotransfer ALT/SGPT 23 U/L (16-61); Albumin, Serum 2.7 g/dL (3.2-5.0); Alkaline Phosphatase 105 U/L (45-117); Anion Gap 7 (5-15); BUN 23 mg/dL (7-18); Calcium,Total 8.3 mg/dL (8.5-10.1); Chloride 104 mmol/L (98-107); Creatinine, Serum 1.21 mg/dL (0.70-1.30); EST Glomerular Filtration Rate 61 mL/min (>60); Est Glom Filt Rate - Afr Amer 73 mL/min (>60); Estimated Creatinine Clearance 40.28 ml/min; Globulin 3.4 g/dL (2.2-4.2); Glucose 95 mg/dL (74-106); Potassium 3.2 mmol/L (3.5-5.1); Protein, Total 6.1 g/dL (6.4-8.2); Sodium Level 135 mmol/L (136-145)
[2023-02-01 08:34] LABS: Vitamin B12 804 pg/mL (211-911)
[2023-02-01 08:54] VITALS: O2SAT 96
--- NOTE | 2023-02-01 09:11 | CASEMGMT ---
Updates sent to [facility] via fax. Jessy Haji, Discharge Planning Asst.
[2023-02-01] MEDS: Ferrous Sulfate 325 MG Tablet PO (10:35)
[2023-02-01] MEDS: Multivitamins,Therapeutic Tablet 1 TABLET PO (10:35)
[2023-02-01] MEDS: Carvedilol 3.125 MG TABLET PO ×2 (10:35→18:07)
[2023-02-01] MEDS: Finasteride 5 MG Tablet PO (10:35)
[2023-02-01 11:00] VITALS: BP 141/79; PULSE 58; RESP 18; TEMP 36.9; O2SAT 98
[2023-02-01 16:09] VITALS: BP 131/50; PULSE 68; RESP 18; TEMP 36.8; O2SAT 100
[2023-02-01] MEDS: Bisacodyl 5 MG Tablet 10 MG PO (18:07)
--- NOTE | 2023-02-01 18:18 | PN.HOSP_ITS ---
Reason for Visit Reason for Visit: Diagnoses Anemia, unspecified (01/29/23) Dehydration (01/29/23) Acute kidney failure, unspecified (01/29/23) Unspecified abdominal pain (01/29/23) Abnormal findings on diagnostic imaging of other abdominal regions, including retroperitoneum (01/29/23) Subjective Subjective Patient was seen and examined today, talk with his and daughter who was in his room at the time my examination, patient was on a clear liquid diet over the weekend, I changed him to a regular diet today. We are currently awaiting word on whether [place] assisted living will take the patient back to their facility. Objective Data Objective Data Vital Signs: Vital Signs Temp Pulse Resp BP Pulse Ox O2 Del Method 98.2 F 68 18 131/50 H 100 Room Air 02/01/23 16:09 02/01/23 16:09 02/01/23 16:09 02/01/23 16:09 02/01/23 16:09 02/01/23 16:11 Oxygen Delivery Method Room Air Weight: 78.5 kg Body Mass Index (BMI) 27.1 Intake & Output: Intake and Output for Last 24 Hours 01/30/23 01/31/23 02/01/23 23:59 23:59 23:59 Intake Total 2397.00 / 2647.00 810 / 910 330 / 330 Output Total 950 / 1250 1700 / 1700 400 / 400 Balance 1447.00 / 1397.00 -890 / -790 -70 / -70 Lab / Micro Data 02/01/23 05:47 02/01/23 05:47 Labs: Laboratory Results - last 24 hr 01/31/23 11:50: Vitamin B12 804 02/01/23 05:47: WBC 8.5, RBC 3.06 L, Hgb 10.3 L, Hct 31.3 L, MCV 102.3 H, MCH 33.7 H, MCHC 32.9 D, RDW Std Deviation 51.5 H, RDW Coeff of Donald 13.6, Plt Count 207, MPV 11.2, Immature Gran % (Auto) 0.200, Neut % (Auto) 66.8, Lymph % (Auto) 21.2, [place] % (Auto) 7.5, Eos % (Auto) 3.9, Baso % (Auto) 0.4, Absolute Neuts (auto) 5.7, Absolute Lymphs (auto) 1.81, Nucleated RBC % 0, Sodium 135 L, Potassium 3.2 L, Chloride 104, Carbon Dioxide 24.0, Anion Gap 7, BUN 23 H, Creatinine 1.21, Estim Creat Clear Calc 40.28, Est GFR (MDRD) Af Amer 73, Est GFR (MDRD) Non-Af 61, BUN/Creatinine Ratio 19.0, Glucose 95, Calcium 8.3 L, Total Bilirubin 0.80, AST 15, ALT 23, Alkaline Phosphatase 105, Total Protein 6.1 L, Albumin 2.7 L, Globulin 3.4, Albumin/Globulin Ratio 0.8 L Micro: Microbiology 01/29/23 22:20 Stool Stool Occult Blood (ABBIE) - Final Physical Exam Const alert, no apparent distress and average body habitus General Appearance: cooperative, well kempt and well developed Orientation / Consciousness: awake, oriented to person and oriented to place HEENT normocephalic, head/scalp atraumatic and moist oral mucous membranes Eyes PERRL, EOMs intact bilaterally and conjunctivae normal Neck supple, no JVD, thyroid normal and no carotid bruits General: trachea midline Resp normal respiratory effort, no retractions, no use of accessory muscles and clear to auscultation bilaterally Auscultation: Negative for rales, rhonchi or wheezes Cardio regular rate, regular rhythm, S1 normal heart sound, S2 normal heart sound, no murmurs, no rub and no gallops GI normal to inspection, nondistended, normoactive bowel sounds, soft to palpation, non-tender and non-distended Extremity no clubbing, cyanosis or edema Skin no rashes or lesions noted General Skin Exam: no breakdown Neuro oriented x3, CN's II-XII intact bilaterally, moves all extremities, no focal motor deficits and no sensory deficits noted Sensorium / Orientation: awake, alert, oriented to person and oriented to place Speech: speech normal Psych affect normal Assessment & Plan Assessment/Plan (1) Abdominal pain: PLAN: Plan 1. Gastric ulcer with abdominal pain-patient's diet will be advanced today, he was placed on oral Protonix today, will monitor, evaluate, assess, and treat #2 dehydration-patient's creatinine was 2.5 on admission, his creatinine today was 1.21, continue to monitor, evaluate, assess, and treat #3 essential hypertension-patient will remain on amlodipine, lisinopril, and carvedilol, will monitor, assess, evaluate, and treat #4 dementia-patient is currently on Aricept, will monitor, evaluate, assess, and treat Total clinical time spent by myself addressing the patient's medical issues, reviewing all of his data, and collaborating with patient's care team: 25 minutes Acute kidney injury was ruled out Charges/Coding Visit Charges Inpatient E&M: 98301 Subs Hosp L1
--- NOTE | 2023-02-01 19:37 | PN.GI_ITS ---
Subjective Subjective No events overnight. He is tolerating a diet. No signs of GI bleeding. Objective Data Objective Data Vital Signs: Vital Signs Temp Pulse Resp BP Pulse Ox O2 Del Method 98.2 F 68 18 131/50 H 100 Room Air 02/01/23 16:09 02/01/23 16:09 02/01/23 16:09 02/01/23 16:09 02/01/23 16:09 02/01/23 16:11 Oxygen Delivery Method Room Air Weight: 173 lb 1.006 oz Body Mass Index (BMI) 27.1 Intake & Output: Intake and Output for Last 24 Hours 01/30/23 01/31/23 02/01/23 23:59 23:59 23:59 Intake Total 2397.00 / 2647.00 810 / 910 330 / 330 Output Total 950 / 1250 1700 / 1700 400 / 400 Balance 1447.00 / 1397.00 -890 / -790 -70 / -70 Lab / Micro Data 02/01/23 05:47 02/01/23 05:47 Labs: Laboratory Results - last 24 hr 01/31/23 11:50: Vitamin B12 804 02/01/23 05:47: WBC 8.5, RBC 3.06 L, Hgb 10.3 L, Hct 31.3 L, MCV 102.3 H, MCH 33.7 H, MCHC 32.9 D, RDW Std Deviation 51.5 H, RDW Coeff of Donald 13.6, Plt Count 207, MPV 11.2, Immature Gran % (Auto) 0.200, Neut % (Auto) 66.8, Lymph % (Auto) 21.2, [place] % (Auto) 7.5, Eos % (Auto) 3.9, Baso % (Auto) 0.4, Absolute Neuts (auto) 5.7, Absolute Lymphs (auto) 1.81, Nucleated RBC % 0, Sodium 135 L, Potassium 3.2 L, Chloride 104, Carbon Dioxide 24.0, Anion Gap 7, BUN 23 H, Creatinine 1.21, Estim Creat Clear Calc 40.28, Est GFR (MDRD) Af Amer 73, Est GFR (MDRD) Non-Af 61, BUN/Creatinine Ratio 19.0, Glucose 95, Calcium 8.3 L, Total Bilirubin 0.80, AST 15, ALT 23, Alkaline Phosphatase 105, Total Protein 6.1 L, Albumin 2.7 L, Globulin 3.4, Albumin/Globulin Ratio 0.8 L Micro: Microbiology 01/29/23 22:20 Stool Stool Occult Blood (ABBIE) - Final Physical Exam Const alert, no apparent distress and average body habitus General Appearance: cooperative, well kempt and well developed Orientation / Consciousness: awake, oriented to person and oriented to place HEENT normocephalic, head/scalp atraumatic and moist oral mucous membranes Eyes PERRL, EOMs intact bilaterally and conjunctivae normal Neck supple, no JVD, thyroid normal and no carotid bruits General: trachea midline Resp normal respiratory effort, no retractions, no use of accessory muscles and clear to auscultation bilaterally Auscultation: Negative for rales, rhonchi or wheezes Cardio regular rate, regular rhythm, S1 normal heart sound, S2 normal heart sound, no murmurs, no rub and no gallops GI normal to inspection, nondistended, normoactive bowel sounds, soft to palpation, non-tender and non-distended Extremity no clubbing, cyanosis or edema Skin no rashes or lesions noted General Skin Exam: no breakdown Neuro oriented x3, CN's II-XII intact bilaterally, moves all extremities, no focal motor deficits and no sensory deficits noted Sensorium / Orientation: awake, alert, oriented to person and oriented to place Speech: speech normal Psych affect normal Assessment & Plan Assessment/Plan (1) Abdominal pain: QUALIFIERS: Abdominal location: generalized Qualified Code(s): R10.84 - Generalized abdominal pain PLAN: Plan The patient is an 87 y/o M w/ PMHx: CKD stage IIIb, HTN, HLD, BPH, Chronic anemia/Fe deficiency anemia, Chronic Bradycardia, GERD who presents to the [facility] ED on 01/29/23 with history of decreased oral intake for at least the last 3 days with associated nausea Abdominal Pain with nausea, decreased oral intake, CT abdomen pelvis with possible gastric ulcer with otherwise no acute findings, hemoglobin 12.4 and is down to 10.3. -01/30/23 EGD with noted chronic gastritis which was biopsied as well as a nonbleeding gastric ulcer with pigmented material treated with argon plasma coagulation as well as a single duodenal polyp that was resected and retrieved with initiation of sucralfate 1 g p.o. 4 times daily, Protonix continued regimen with transition amenable to 40 mg p.o. daily as well as avoidance of any aspirin/ibuprofen/naproxen or other NSAID drugs. Anemia, chronic since most recent admission, currently macrocytic on Chronic Fe Deficiency anemia:l continue to avoid any aspirin/ibuprofen/naproxen or other NSAID drugs. Charges/Coding Visit Charges Inpatient E&M: 64578 Subs Hosp L3
[2023-02-01 22:00] VITALS: BP 119/56; PULSE 58; RESP 16; TEMP 36.6; O2SAT 99
[2023-02-01] MEDS: Doxazosin 4 MG Tablet PO (22:13)
[2023-02-01] MEDS: MELATONIN 10 MG TABLET 5 MG PO (22:13)
[2023-02-01] MEDS: Donepezil HCl 5 MG Tablet PO (22:13)
[2023-02-01] MEDS: Pantoprazole Sodium 40 MG Tablet PO (22:14)
[2023-02-02 04:00] VITALS: BP 125/55; PULSE 68; RESP 16; TEMP 36.6; O2SAT 96
[2023-02-02 04:57] VITALS: BMI 27.1
[2023-02-02] MEDS: Sucralfate 1 GM Tablet PO ×2 (06:05→13:32)
[2023-02-02] MEDS: 0.9% Saline Lock 10 ML Syringe IV (06:13)
--- NOTE | 2023-02-02 08:00 | EX.PCM.PN.GI ---
Subjective Subjective Patient is up and sitting in chair. Denies any needs at this time. He has been sleeping on and off today. Objective Data Objective Data Vital Signs: Vital Signs Temp Pulse Resp BP Pulse Ox O2 Del Method 98 F 54 L 18 100/54 L 98 Room Air 02/02/23 15:14 02/02/23 15:14 02/02/23 15:14 02/02/23 15:14 02/02/23 15:14 02/02/23 15:14 Oxygen Delivery Method Room Air Weight: 172 lb 9.951 oz Body Mass Index (BMI) 27.1 Intake & Output: Intake and Output for Last 24 Hours 01/31/23 02/01/23 02/02/23 23:59 23:59 23:59 Intake Total 810 / 910 330 / 450 220 / 220 Output Total 1700 / 1700 400 / 1000 1600 / 1600 Balance -890 / -790 -70 / -550 -1380 / -1380 Lab / Micro Data 02/01/23 05:47 02/01/23 05:47 Micro: Microbiology 01/29/23 22:20 Stool Stool Occult Blood (ABBIE) - Final Physical Exam Const alert, no apparent distress and average body habitus General Appearance: cooperative, well kempt and well developed Orientation / Consciousness: awake, oriented to person and oriented to place HEENT normocephalic, head/scalp atraumatic and moist oral mucous membranes Eyes PERRL, EOMs intact bilaterally and conjunctivae normal Neck supple, no JVD, thyroid normal and no carotid bruits General: trachea midline Resp normal respiratory effort, no retractions, no use of accessory muscles and clear to auscultation bilaterally Auscultation: Negative for rales, rhonchi or wheezes Cardio regular rate, regular rhythm, S1 normal heart sound, S2 normal heart sound, no murmurs, no rub and no gallops GI normal to inspection, nondistended, normoactive bowel sounds, soft to palpation, non-tender and non-distended Extremity no clubbing, cyanosis or edema Skin no rashes or lesions noted General Skin Exam: no breakdown Neuro oriented x3, CN's II-XII intact bilaterally, moves all extremities, no focal motor deficits and no sensory deficits noted Sensorium / Orientation: awake, alert, oriented to person and oriented to place Speech: speech normal Psych affect normal Assessment & Plan Assessment/Plan (1) Abdominal pain: QUALIFIERS: Abdominal location: generalized Qualified Code(s): R10.84 - Generalized abdominal pain PLAN: Plan The patient is an 87 y/o M w/ PMHx: CKD stage IIIb, HTN, HLD, BPH, Chronic anemia/Fe deficiency anemia, Chronic Bradycardia, GERD who presents to the [facility] ED on 01/29/23 with history of decreased oral intake for at least the last 3 days with associated nausea Abdominal Pain with nausea, decreased oral intake, CT abdomen pelvis with possible gastric ulcer with otherwise no acute findings, hemoglobin 12.4 and is down to 10.3. -01/30/23 EGD with noted chronic gastritis which was biopsied as well as a nonbleeding gastric ulcer with pigmented material treated with argon plasma coagulation as well as a single duodenal polyp that was resected and retrieved with initiation of sucralfate 1 g p.o. 4 times daily, Protonix continued regimen with transition amenable to 40 mg p.o. daily as well as avoidance of any aspirin/ibuprofen/naproxen or other NSAID drugs. Anemia, chronic since most recent admission, currently macrocytic on Chronic Fe Deficiency anemia:l continue to avoid any aspirin/ibuprofen/naproxen or other NSAID drugs. -02/02/23-no signs or symptoms of needing to time. Anticoagulation is still on hold. I will give him iron transfusion prior to him being hospital. Continue PPI therapy as previously ordered. Charges/Coding Visit Charges Inpatient E&M: 10239 Subs Hosp L3
--- NOTE | 2023-02-02 09:12 | CASEMGMT ---
Discharge Planning Updates faxed to [facility]. Jessy Haji, Discharge Planning Asst.
[2023-02-02 09:38] VITALS: BP 135/65; PULSE 63; RESP 18; TEMP 36.7; O2SAT 100
[2023-02-02] MEDS: Pantoprazole Sodium 40 MG Tablet PO (09:45)
[2023-02-02] MEDS: Multivitamins,Therapeutic Tablet 1 TABLET PO (09:45)
[2023-02-02] MEDS: Ferrous Sulfate 325 MG Tablet PO (09:45)
[2023-02-02] MEDS: Carvedilol 3.125 MG TABLET PO (09:45)
[2023-02-02] MEDS: Finasteride 5 MG Tablet PO (09:45)
--- NOTE | 2023-02-02 13:48 | CASEMGMT ---
Discharge Planning Per Rochelle Pineda, patient can return. Jessy Haji, Discharge Planning Asst.
[2023-02-02 15:14] VITALS: BP 100/54; PULSE 54; RESP 18; TEMP 36.6; O2SAT 98
--- NOTE | 2023-02-02 15:38 | CASEMGMT ---
Addendum entered by Adrianna Ivy 02/02/23 15:43: Social Work Return call from pt dgt Sindy who states she will be providing transportation for pt back to [facility]. KADEN De La Garza Original Note: Social Work [facility] is able to accept pt back. VM left with pt dgt Sindy to discuss discharge plan and transportation to return to [facility]. SW will await return call. KADEN De La Garza
--- NOTE | 2023-02-02 16:58 | DCINST_ITS ---
Discharge Instructions Diet Discharge Diet: No restrictions Activity Discharge Activity: Return to Normal Activity Weight Bearing Status: Weight bearing as tolerated Follow Up Care Test Results: Test results from this visit will be discussed in further detail at your follow- up appointment, if applicable. Discharge Plan Admission Admit Date/Time: 01/29/23 22:22 Primary Reason for Your Visit: Gastric ulcer Attending Provider: Vic Cummings Primary Care Provider: Jaime Johnson Consulting Providers: Isidra Rodriguez; Aletha Malcolm Discharge Orders/Prescriptions Prescriptions: New pantoprazole 40 mg Tablet,Delayed Release (Dr/Ec) 40 mg PO BID Qty: 60 0RF donepezil 5 mg Tablet 5 mg PO QHS Qty: 0 0RF Continued finasteride 5 mg tablet 5 mg PO QDAY multivitamin 1 EACH tablet 1 ea PO DAILY acetaminophen 325 mg Tablet 650 mg PO Q6H PRN PRN (Reason: Pain Score 1-10) Qty: 1 0RF benzonatate 100 mg capsule 100 mg PO Q6H PRN (Reason: cough) bisacodyl 10 mg suppository 10 mg MO DAILY PRN (Reason: constipation) hydrocortisone acetate 25 mg Suppository 25 mg MO BID Rx Instructions: BID AND BID PRN melatonin 5 mg capsule 5 mg PO QHS carvedilol 3.125 mg Tablet 6.25 mg PO BIDCM Rx Instructions: Decreased due to bradycardia and low BP amlodipine 2.5 mg tablet 2.5 mg PO DAILY ferrous sulfate [FeroSul] 325 mg (65 mg iron) tablet 325 mg PO DAILY Discontinued furosemide 40 mg tablet 40 mg PO DAILY lisinopril 40 mg tablet 40 mg PO DAILY omeprazole 20 mg capsule,delayed release(DR/EC) 20 mg PO Q8H terazosin 5 mg capsule 5 mg PO QHS Referrals / Follow Up: Jaime Johnson MD [Primary Care Provider] - Within 2 Weeks Aden Carey DO [Med Staff - Active Staff] - Within 1 Month (will need to schedule repeat endoscopy) Disposition Disposition (needs filled in before D/C Order can be placed): Assisted Living
--- NOTE | 2023-02-02 17:20 | PCM.DC.SUM ---
Providers Date of Admission: 01/29/23 Date of Discharge: 02/02/23 Primary Care Physician: Dr. Jaime Johnson MD Consultations 01/30/23 00:08 Consult: Gastroenterology Routine Consulting Provider: Jeanna Gastroenterology Reason for Consult: Possible gastric ulcer with worsening anemia EMERGENT Consult: No MD Notified: Yes Date Notified: 01/29/23 Time Notified: 22:25 Method of Notification: Text Reason For Visit: LOKI, PO INTAKE Diagnosis Discharge Diagnosis (1) Abdominal pain: Status: Acute Code(s): R10.9 - Unspecified abdominal pain Qualifiers: Abdominal location: generalized Qualified Code(s): R10.84 - Generalized abdominal pain Plan 1. Gastric ulcer with abdominal pain-patient's diet will be advanced today, he was placed on oral Protonix today, will monitor, evaluate, assess, and treat #2 dehydration-patient's creatinine was 2.5 on admission, his creatinine today was 1.21, continue to monitor, evaluate, assess, and treat #3 essential hypertension-patient will remain on amlodipine, lisinopril, and carvedilol, will monitor, assess, evaluate, and treat #4 dementia-patient is currently on Aricept, will monitor, evaluate, assess, and treat Total clinical time spent by myself addressing the patient's medical issues, reviewing all of his data, and collaborating with patient's care team: 25 minutes Acute kidney injury was ruled out Medications at Discharge Home Medications multivitamin 1 ea PO DAILY supplement 07/02/15 finasteride 5 mg tablet 5 mg PO QDAY urinary retention 05/17/17 amlodipine 2.5 mg tablet 2.5 mg PO DAILY blood pressure 12/31/22 ferrous sulfate 325 mg (65 mg iron) tablet (FeroSul) 325 mg PO DAILY suppliment 12/31/22 acetaminophen 325 mg tablet 650 mg (2 x 325 mg) PO Q6H PRN PRN Pain Score 1-10 #1 TAB 01/11/23 melatonin 5 mg capsule 5 mg PO QHS sleep 01/29/23 donepezil 5 mg tablet 5 mg PO QHS memory #0 tabs 02/02/23 pantoprazole 40 mg tablet,delayed release 40 mg PO BID reflux #60 tabs 02/02/23 omeprazole 20 mg capsule,delayed release 20 mg PO BID reflux 08/31/23 ondansetron 4 mg disintegrating tablet 4 mg PO Q8H nausea 02/04/23 terazosin 5 mg capsule 5 mg PO QHS prostate 02/04/23 nitrofurantoin macrocrystal 100 mg capsule 100 mg PO BID 5 days #10 caps 02/06/23 peg [id number] 1 %-0.2 %-0.2 % eye drops (Artificial Tears ([id number])) 1 drp EACH EYE Q1H PRN PRN DRY EYES #0 mL 02/06/23 Hospital Course Operations None Procedures EGD Summary of Care Provided Minutes Spent on Discharge: 32 Hospital Course: This 87-year-old white male was seen in the emergency room at [facility], he had a history of dementia, he presents with abdominal pain, he complained of nausea but no vomiting. He was seen as an outpatient before he went to the emergency room and had blood work and plain films that were concerning for small bowel obstruction and dehydration, ER had no access to his results however. Work-up in the emergency room included a CBC which showed normal white count, hemoglobin was 12.4, lipase was slightly elevated, CT scan of the abdomen showed no sign of obstruction, there was a few air-fluid levels but no distended bowels. Radiology did feel the patient had findings consistent with a possible gastric ulcer.. Patient was admitted to [place] [id number], he was seen in consultation by gastroenterology who performed an EGD which showed chronic gastritis, a nonbleeding gastric ulcer which was treated with argon plasma coagulation, a single duodenal polyp was noted which was resected and a normal esophagus. Patient was maintained on sucralfate and Protonix, it was documented that the attending physician felt that the patient had acute kidney injury, I did not feel this was the case and I felt that the patient was dehydrated. Patient did not require any blood transfusion during his hospital stay, supplemental potassium was given to correct hypokalemia. Patient was seen by PT and OT, he was felt stable for return to assisted living for further care. On 02/02/2023, patient was seen and examined:alert, no apparent distress and average body habitus General Appearance: cooperative, well kempt and well developed Orientation / Consciousness: awake, oriented to person and oriented to place HEENT normocephalic, head/scalp atraumatic and moist oral mucous membranes Eyes PERRL, EOMs intact bilaterally and conjunctivae normal Neck supple, no JVD, thyroid normal and no carotid bruits General: trachea midline Resp normal respiratory effort, no retractions, no use of accessory muscles and clear to auscultation bilaterally Auscultation: Negative for rales, rhonchi or wheezes Cardio regular rate, regular rhythm, S1 normal heart sound, S2 normal heart sound, no murmurs, no rub and no gallops GI normal to inspection, nondistended, normoactive bowel sounds, soft to palpation, non-tender and non-distended Extremity no clubbing, cyanosis or edema Skin no rashes or lesions noted General Skin Exam: no breakdown Neuro oriented x3, CN's II-XII intact bilaterally, moves all extremities, no focal motor deficits and no sensory deficits noted Sensorium / Orientation: awake, alert, oriented to person and oriented to place Speech: speech normal Psych affect normal Patient was felt to be stable for discharge to assisted living on 02/02/2023. Weight / BMI Weight Weight: 78.3 kg Body Mass Index (BMI) 27.1 ABG / Lab / Microbiology Data 02/01/23 05:47 02/01/23 05:47 Microbiology: Microbiology 01/29/23 22:20 Stool Stool Occult Blood (ABBIE) - Final D/C Instructions Discharge Diet: No restrictions Weight Bearing Status: Weight bearing as tolerated Meaningful Use Info Meaningful Use Diagnoses (Choose all that apply): None applicable Discharge Plan Admission Admit Date/Time: 01/29/23 22:22 Primary Reason for Your Visit: Gastric ulcer Attending Provider: Vic Cummings Primary Care Provider: Jaime Johnson Consulting Providers: Isidra Rodriguez; Aletha Malcolm Discharge Orders/Prescriptions Prescriptions: New pantoprazole 40 mg Tablet,Delayed Release (Dr/Ec) 40 mg PO BID Qty: 60 0RF donepezil 5 mg Tablet 5 mg PO QHS Qty: 0 0RF Continued finasteride 5 mg tablet 5 mg PO QDAY multivitamin 1 EACH tablet 1 ea PO DAILY acetaminophen 325 mg Tablet 650 mg PO Q6H PRN PRN (Reason: Pain Score 1-10) Qty: 1 0RF melatonin 5 mg capsule 5 mg PO QHS amlodipine 2.5 mg tablet 2.5 mg PO DAILY ferrous sulfate [FeroSul] 325 mg (65 mg iron) tablet 325 mg PO DAILY Discontinued furosemide 40 mg tablet 40 mg PO DAILY lisinopril 40 mg tablet 40 mg PO DAILY omeprazole 20 mg capsule,delayed release(DR/EC) 20 mg PO Q8H terazosin 5 mg capsule 5 mg PO QHS No Action terazosin 5 mg capsule 5 mg PO QHS omeprazole 20 mg capsule,delayed release(DR/EC) 20 mg PO BID ondansetron 4 mg tablet,disintegrating 4 mg PO Q8H Artificial Tears([id number]) 1-0.2-0.2 % Drops 1 drp EACH EYE Q1H PRN PRN (Reason: DRY EYES) Qty: 0 0RF nitrofurantoin macrocrystal 100 mg capsule 100 mg PO BID 5 Days Qty: 10 0RF Rx Instructions: must administer with a meal/food Referrals / Follow Up: Jaime Johnson MD [Primary Care Provider] - Within 2 Weeks Aden Carey DO [Med Staff - Active Staff] - Within 1 Month (will need to schedule repeat endoscopy) Disposition Disposition (needs filled in before D/C Order can be placed): Assisted Living Charges/Coding Visit Charges Inpatient E&M: 41794 Disch Hosp >30min
--- NOTE | 2023-02-02 17:28 | CM.UR ---
Discharge Planning Discharge instructions sent to [facility] via fax ([phone]). Jessy Haji, Discharge Planning Asst.
== END 2023-02-02 18:26 | disposition home or self-care (01) | DRG 384 ==
LOC: ED 22:26 → MS3 23:52
PROVIDERS: Family Medicine; Internal Medicine Gastroenterology; Admitting Provider Internal Medicine; Emergency Provider Emergency Medicine; PCP Family Medicine; Visit Provider Internal Medicine
PROC: 0DJ08ZZ Inspection of Upper Intestinal Tract, Via Natural or Artificial Opening Endoscopic (ICD-10-PCS; CPT 43235; principal; 2023-01-30 07:45)
DX: K25.9 Gastric ulcer, unspecified as acute or chronic, without hemorrhage or perforation (principal); F03.918 Unspecified dementia, unspecified severity, with other behavioral disturbance; N18.32 Chronic kidney disease, stage 3b; D50.9 Iron deficiency anemia, unspecified; I12.9 Hypertensive chronic kidney disease with stage 1 through stage 4 chronic kidney disease, or unspecified chronic kidney disease; K29.50 Unspecified chronic gastritis without bleeding; E86.0 Dehydration; D47.2 Monoclonal gammopathy; E78.5 Hyperlipidemia, unspecified; E87.6 Hypokalemia; K21.9 Gastro-esophageal reflux disease without esophagitis; K31.7 Polyp of stomach and duodenum; R00.1 Bradycardia, unspecified; R62.7 Adult failure to thrive; N40.1 Benign prostatic hyperplasia with lower urinary tract symptoms; R33.8 Other retention of urine; R29.6 Repeated falls; Z66 Do not resuscitate; Z90.49 Acquired absence of other specified parts of digestive tract; Z68.27 Body mass index [BMI] 27.0-27.9, adult; Z79.899 Other long term (current) drug therapy; Z87.891 Personal history of nicotine dependence
CPT/HCPCS: 36415; 74176; 74177; 80048; 80053; 81001; 82274; 82607; 82746; 83690; 83735; 84100; 84443; 85025; 88305; 88342; 93005; 94668; 97162; 97166; 97530; 97535; 99284; J7030; J7120; A4216; J2405; J3490

== ENCOUNTER 2023-02-04 16:58 | Observation (INO) | payer MEDICARE, SELFPAY ==
[2023-02-04 16:58] VITALS: BP 92/61; PULSE 52; RESP 14; TEMP 36.4; O2SAT 100
--- NOTE | 2023-02-04 17:08 | EX.ED.DYSGE1 ---
HPI History of Present Illness Chief Complaint: Complaint [facility] Medical History A-fib BPH (benign prostatic hyperplasia) Chronic renal failure, stage 3a Dark stools Fall GERD (gastroesophageal reflux disease) H/O normocytic normochromic anemia Hypertension Neuropathic pain Restless legs syndrome Home Medications multivitamin 1 ea PO DAILY supplement 07/02/15 [History Last Taken Unknown] finasteride 5 mg tablet 5 mg PO QDAY urinary retention 05/17/17 [History Last Taken Unknown] amlodipine 2.5 mg tablet 2.5 mg PO DAILY blood pressure 12/31/22 [History Last Taken Unknown] ferrous sulfate 325 mg (65 mg iron) tablet (FeroSul) 325 mg PO DAILY suppliment 12/31/22 [History Last Taken 12/31/22] acetaminophen 325 mg tablet 650 mg (2 x 325 mg) PO Q6H PRN PRN Pain Score 1-10 #1 TAB 01/11/23 [Rx Last Taken Unknown] carvedilol 3.125 mg tablet 6.25 mg PO BIDCM 01/29/23 [History Last Taken Unknown] melatonin 5 mg capsule 5 mg PO QHS 01/29/23 [History Last Taken Unknown] donepezil 5 mg tablet 5 mg PO QHS #0 tabs 02/02/23 [Rx Last Taken Unknown] pantoprazole 40 mg tablet,delayed release 40 mg PO BID #60 tabs 02/02/23 [Rx Last Taken Unknown] lisinopril 40 mg tablet 40 mg PO DAILY 02/04/23 [History Last Taken Unknown] omeprazole 20 mg capsule,delayed release 20 mg PO BID 02/04/23 [History Last Taken Unknown] ondansetron 4 mg disintegrating tablet 4 mg PO Q8H 02/04/23 [History Last Taken Unknown] terazosin 5 mg capsule 5 mg PO QHS 02/04/23 [History Last Taken Unknown] Allergy/AdvReac Type Severity Reaction Status Date / Time Penicillins Allergy Rash Verified 02/04/23 17:09 Family History Mother Cirrhosis of liver Surgical History H/O hernia repair Hx of cholecystectomy S/P right rotator cuff repair Unspecified nasal polyp Social History household members: spouse housing: assisted living facility current occupational status: retired Smoking Status: Former smoker how long ago did patient quit smokin years ago EXAM Physical Exam Const Vital Signs: 02/04/23 16:58 02/04/23 20:48 Temperature 97.6 F L Temperature Source Temporal Pulse Rate 52 L 64 Respiratory Rate 14 21 H Blood Pressure 92/61 117/69 Blood Pressure Mean 71 85 Pulse Ox 100 99 Oxygen Delivery Method Room Air [facility] [place] Narrative Medical decision making narrative: HISTORY OF PRESENT ILLNESS: 87-year-old male sent in by his primary care doctor for concern for UTI. Notes increase frequency of urination. Also notes diffuse weakness. Denies any chest pain, lower extremity edema, denies any bleeding diathesis. Patient also complains of chills. REVIEW OF SYSTEMS: Pertinent positives: Diffuse weakness, frequency Pertinent negatives: Focal weakness, chest pain PHYSICAL EXAM: Nursing triage notes reviewed, Vital signs reviewed Constitutional: please see mdm HENT: MMM Eyes: Pupils equal round and reactive to light, Extraocular muscles intact Neck: No stridor, no JVD, full neck ROM Lungs: Clear to auscultation, No wheezing or rales. No increased work of breathing, no conversational dyspnea, no accessory muscle use, no nasal flaring. No respiratory distress noted Heart: Regular rate and rhythm, No murmurs, No rubs and No gallops, 2+ distal pulses (radial, femoral, posterior tibial) in all extremities Abdomen: Soft, there is no tenderness, rigidity, rebound or guarding, no obvious peritoneal signs, no palpable pulsatile abdominal masses, no auscultated abdominal bruit : No CVAT Extremities: No edema Neuro: No focal neurological deficits, cranial nerves II through XII intact, 5/5 strength in all extremities. Intact sensation to light touch in all extremities, 2+ reflexes bilateral patella tendons. Normal gait. No ataxia. Skin: No rash or lesions noted MEDICAL DECISION MAKING: Chief Complaint: Concern for UTI External records reviewed: imaging studies reviewed, CT scan abdomen pelvis from 01/29/2023 shows no evidence of bladder inflammation. Urinalysis from 01/30/2023 shows no evidence of UTI Factors affecting care: Hypertension, BPH, CKD Social determinants of health: none History obtained from others: the patients Consults: Cardiology (Dr. Morales) ALL IMAGES (IF OBTAINED) HAVE BEEN PERSONALLY REVIEWED AND INTERPRETED BY MYSELF. Initial EKG shows premature atrial contraction, no obvious STEMI MDM Narrative: Patient initially hypotensive, bradycardic otherwise hemodynamically stable afebrile and nontoxic-appearing. I considered the following differential diagnosis: Arrhythmia, cardiogenic shock, myocardial ischemia, anemia, dehydration, electrolyte abnormalities Initial EKG concerning for second-degree AV block. Did consult cardiology. Spoke with Dr. Morales. Also obtained a broad lab and imaging work-up to further elucidate the etiology the patient complaints including signs of distributive shock, severe anemia, electrolyte maladies or dehydration. Also concern about UTI. Labs and images remarkable for evidence of UTI. Given hypotension and UTI will admit the patient. Discussed with hospitalist. The patient and/or family, caregivers express understanding. The patient and/or family, caregivers agrees with the plan. Shared decision making: I will have a discussion with the patient and or visitors regarding risk/benefits of further testing or admission. They will be made aware of of the risk/benefits inherent in this decision they will be given the opportunity to voice understanding. Total critical care time today provided was at least 0 minutes. This excludes separately billable procedures. Critical care time (if documented) is secondary to the patient having high probability of clinically significant/life threatening deterioration in the patient's condition which required my urgent intervention. Impression: History of BPH UTI Hypotension Bradycardia Dispo: Admit to observation Lab Data Attestation: I reviewed the patient's lab results. Lab results narrative: CBC with no leukocytosis, mild anemia, no thrombocytopenia BMP with mild hyponatremia, no other significant electrode abnormalities, noted mild acute kidney injury LFTs show no evidence of hepatobiliary pathology. Troponin is negative, no evidence of myocardial ischemia x2 Lipase mildly elevated UA with evidence of infection will send for culture Labs: Laboratory Results - last 24 hr 02/04/23 02/04/23 02/04/23 17:55 19:06 20:20 WBC 8.5 RBC 3.34 L Hgb 10.9 L Hct 33.8 L MCV 101.2 H MCH 32.6 H MCHC 32.2 RDW Std Deviation 50.3 H RDW Coeff of Donald 13.5 Plt Count 234 MPV 11.1 Immature Gran % (Auto) 0.400 Neut % (Auto) 66.6 Lymph % (Auto) 20.7 [place] % (Auto) 9.6 Eos % (Auto) 2.2 Baso % (Auto) 0.5 Absolute Neuts (auto) 5.7 Absolute Lymphs (auto) 1.75 Nucleated RBC % 0 Sodium 133 L Potassium 4.1 Chloride 102 Carbon Dioxide 24.0 Anion Gap 7 BUN 28 H Creatinine 1.51 H Estim Creat Clear Calc 33.44 Est GFR (MDRD) Af Amer 57 L Est GFR (MDRD) Non-Af 47 L BUN/Creatinine Ratio 18.5 Glucose 98 Lactic Acid 1.5 Calcium 8.6 Total Bilirubin 0.40 Direct Bilirubin 0.15 AST 14 L ALT 23 Alkaline Phosphatase 118 H Troponin I High Sens 10 10 B-Natriuretic Peptide 217.7 H Total Protein 7.1 Albumin 3.1 L Globulin 4.0 Lipase 76 H Urine Color Yellow Urine Clarity Sl. Cloudy Urine pH 5.0 Ur Specific [place] 1.015 Urine Protein 30 H Urine Glucose (UA) Normal Urine Ketones Negative Urine Occult Blood 150 H Urine Nitrite Positive H Urine Bilirubin Negative Urine Urobilinogen Normal Ur Leukocyte Esterase 500 H Urine RBC 0 SEEN Urine WBC 10-25 SEEN Ur Squamous Epith Cells 0 SEEN Urine Bacteria 2+ Urine Mucus 0 SEEN Radiography Chest X-Ray - ED: Read by ED Physician Diagnostic Testing: Clinical Impression(s) from Imaging Studies Chest X-Ray 02/04/23 18:15 IMPRESSION: No radiographic evidence of acute cardiopulmonary disease. Electronically Signed: Meg Hoover MD at 18:42 EDT Reading Location ID and State: [facility] / [place] , Service support , I have personally reviewed the patient's chest x-ray. Chest x-ray is unremarkable for pulmonary edema, pneumothorax, pneumonia or focal cardiopulmonary abnormality. Discharge Plan Triage Chief Complaint: Complaint ED Provider: Kev Vargas Dx/Rx/DC Orders Clinical Impression: UTI (urinary tract infection), Acute hypotension Primary Care Provider: Jaime Johnson Disposition Disposition: [facility]
[2023-02-04 17:09] VITALS: BMI 26.4
--- NOTE | 2023-02-04 17:47 | EKG12_ITS ---
Test Reason : GENERAL Blood Pressure : / mmHG Vent. Rate : 058 BPM Atrial Rate : 000 BPM P-R Int : 000 ms QRS Dur : 060 ms QT Int : 408 ms P-R-T Axes : 000 033 035 degrees QTc Int : 400 ms Atrial fibrillation with slow ventricular response with a competing junctional pacemaker Abnormal ECG Confirmed by DANIEL OTT ([id number]), production editor STONE LIMON ([id number]) on 02/18/2023 10:03:19 AM Referred By: Confirmed By:DANIEL OTT
--- NOTE | 2023-02-04 18:15 | RAD_ITS ---
STUDY: X-RAY CHEST REASON FOR EXAM: Male, 87 years old patient with hypotension and bradycardia. TECHNIQUE: Single AP portable view of the chest. COMPARISON: Chest radiograph dated December 28, 2022. FINDINGS: Cardiac monitoring leads are present. The lungs are clear and expanded. There is no demonstrated pleural abnormality. Normal size heart. Normal mediastinum and dustin. Normal visualized pulmonary arteries. There is atherosclerotic calcification of the aortic arch with tortuosity. There are diffuse degenerative changes of the visualized thoracic spine. Normal visualized ribs, clavicles, and shoulders. There is no demonstrated abnormality of the visualized soft tissue structures of the upper abdomen. RAD/Chest 1 View (Portable) IMPRESSION: No radiographic evidence of acute cardiopulmonary disease. Electronically Signed: Meg Hoover MD at 18:42 EDT ,
[2023-02-04 18:20] LABS: Absolute Lymphocyte Count 1.75 X10^3/uL (0.83-4.51); Absolute Neutrophil Count 5.7 X10^3/uL (2.0-7.7); Basophil# 0.04 X10^3/uL; Basophil% 0.5 % (0-1); Eosinophil# 0.19 X10^3/uL; Eosinophils% 2.2 % (0-5); Hematocrit 33.8 % (40-54); Hemoglobin 10.9 g/dL (13.0-16.5); Lymphocyte # 1.75 X10^3/ul (0.83-4.51); Lymphocyte % 20.7 % (19-41); Mean Corp Hgb Conc 32.2 g/dL (32-36); Mean Corpuscular Hgb 32.6 pg (27.0-32.0); Mean Corpuscular Volume 101.2 fL (80-94); Mean Platelet Vol. 11.1 fl (6.2-12.0); Monocyte# 0.81 X10^3/uL; Monocyte% 9.6 % (0-10); NRBC Flagged by Analyzer 0 % (0-5); Neutrophil # 5.65 X10^3/uL (2.7-7.7); Neutrophil % 66.6 % (47-70); Platelet Count 234 K/mm3 (150-450); RBC Distribution Width CV 13.5 % (11.6-14.6); RBC Distribution Width SD 50.3 fl (35.1-43.9); Red Blood Count 3.34 M/mm3 (4.6-6.2); White Blood Count 8.5 K/mm3 (4.4-11.0)
[2023-02-04 18:34] LABS: BNP,B-Type NATRIURETIC PEPTIDE 217.7 pg/mL (0-100); Lactic Acid 1.5 mmol/L (0.4-1.9)
[2023-02-04 18:37] LABS: AST(SGOT) 14 U/L (15-37); Alanine Aminotransfer ALT/SGPT 23 U/L (16-61); Albumin, Serum 3.1 g/dL (3.2-5.0); Alkaline Phosphatase 118 U/L (45-117); Anion Gap 7 (5-15); BUN 28 mg/dL (7-18); BUN/Creat Ratio 18.5 RATIO (10-20); Bilirubin, Direct 0.15 mg/dL (0.00-0.30); Calcium,Total 8.6 mg/dL (8.5-10.1); Chloride 102 mmol/L (98-107); Creatinine, Serum 1.51 mg/dL (0.70-1.30); EST Glomerular Filtration Rate 47 mL/min (>60); Est Glom Filt Rate - Afr Amer 57 mL/min (>60); Estimated Creatinine Clearance 33.44 ml/min; Glucose 98 mg/dL (74-106); Lipase 76 U/L (13-75); Potassium 4.1 mmol/L (3.5-5.1); Protein, Total 7.1 g/dL (6.4-8.2); Sodium Level 133 mmol/L (136-145); Troponin-I HS (w/2H Reflex) 10 pg/mL (3.0-78.0)
[2023-02-04 19:14] LABS: Mucous, Urine 0 SEEN /hpf (<or=2+); Red Blood Cells-Urine 0 SEEN /hpf (0-5); Squamous Epithelial Cells - UA 0 SEEN /hpf (0-5)
[2023-02-04 19:15] LABS: Color, Urine Yellow (Yellow); Glucose, Dipstick Normal (Normal); Ketone-Dipstick Negative (Negative); Leukocyte Esterase-Dipstick 500 /ul (Negative); Nitrite-Dipstick Positive (Negative); Occult Blood-Urine 150 /ul (Negative); Protein-Dipstick 30 mg/dl (Negative); Specific Gravity, Urine 1.015 (1.002-1.030); Urine Bilirubin Dipstick Negative (Negative); Urine Clarity Sl. Cloudy (Clear); Urine Urobilinogen Normal (Normal)
[2023-02-04 19:51] LABS: Bacteria 2+ /hpf (None Seen); White Blood Cells 10-25 SEEN /hpf (0-5)
[2023-02-04 20:02] LABS: Reflex Troponin-HS? (from REC) Y
[2023-02-04] MEDS: Ceftriaxone 1 GM/50 ML BAG IV (20:38)
[2023-02-04 20:48] VITALS: BP 117/69; PULSE 64; RESP 21; O2SAT 99
--- NOTE | 2023-02-04 20:51 | HP.PCM.HOS_ITS ---
[facility] - General General Date of Admission: 02/04/23 Date of Service: 02/04/23 Chief Complaint: incontinence of urine HPI Narrative MARY COLÓN, is a 87 M with a significant history of dementia; hypertension; and atrial fibrillation who presents to the emergency department with incontinence. Reportedly since 2 weeks after her urine catheter was removed he has had increased frequency of urination and increased volume of urination as well as incontinence. He wet his adult depends and pants. Reportedly patient's PCP sent him to emergency department because outside symptoms above patient also had bradycardia with heart rate around 42 and hypotension with blood pressure of about 82/48. At the emergency department ED doctor discussed the patient's EKG with cardiology on-call and per cardiology patient has bradycardia with underlying slow A-fib. Although per ED doctor the patient was sent to the ED with weakness the patient and her daughter who was at the bedside denies weakness but rather stated that patient's symptoms are primarily urinary and decreased vital signs as above. While in the ED room patient reported feeling cold PFSH Medical History A-fib BPH (benign prostatic hyperplasia) Chronic renal failure, stage 3a Dark stools Fall GERD (gastroesophageal reflux disease) H/O normocytic normochromic anemia Hypertension Neuropathic pain Restless legs syndrome Home Medications multivitamin 1 ea PO DAILY supplement 07/02/15 [History Last Taken Unknown] finasteride 5 mg tablet 5 mg PO QDAY urinary retention 05/17/17 [History Last Taken Unknown] amlodipine 2.5 mg tablet 2.5 mg PO DAILY blood pressure 12/31/22 [History Last Taken Unknown] ferrous sulfate 325 mg (65 mg iron) tablet (FeroSul) 325 mg PO DAILY suppliment 12/31/22 [History Last Taken 12/31/22] acetaminophen 325 mg tablet 650 mg (2 x 325 mg) PO Q6H PRN PRN Pain Score 1-10 #1 TAB 01/11/23 [Rx Last Taken Unknown] carvedilol 3.125 mg tablet 6.25 mg PO BIDCM 01/29/23 [History Last Taken U nknown] melatonin 5 mg capsule 5 mg PO QHS 01/29/23 [History Last Taken Unknown] donepezil 5 mg tablet 5 mg PO QHS #0 tabs 02/02/23 [Rx Last Taken Unknown] pantoprazole 40 mg tablet,delayed release 40 mg PO BID #60 tabs 02/02/23 [Rx Last Taken Unknown] lisinopril 40 mg tablet 40 mg PO DAILY 02/04/23 [History Last Taken Unknown] omeprazole 20 mg capsule,delayed release 20 mg PO BID 02/04/23 [History Last Taken Unknown] ondansetron 4 mg disintegrating tablet 4 mg PO Q8H 02/04/23 [History Last Taken Unknown] terazosin 5 mg capsule 5 mg PO QHS 02/04/23 [History Last Taken Unknown] Allergy/AdvReac Type Severity Reaction Status Date / Time Penicillins Allergy Rash Verified 02/04/23 17:09 Family History Mother Cirrhosis of liver Surgical History H/O hernia repair Hx of cholecystectomy S/P right rotator cuff repair Unspecified nasal polyp Social History household members: spouse housing: assisted living facility current occupational status: retired Smoking Status: Former smoker how long ago did patient quit smokin years ago ROS ROS Narrative Pertinent positives and pertinent negatives as noted in HPI. All other systems were reviewed and are negative Vital Signs Vital Signs Vital Signs: 02/04/23 16:58 02/04/23 20:48 Temperature 97.6 F L Temperature Source Temporal Pulse Rate 52 L 64 Respiratory Rate 14 21 H Blood Pressure 92/61 117/69 Blood Pressure Mean 71 85 Pulse Ox 100 99 Oxygen Delivery Method Room Air Weight Weight: 76.7 kg Body Mass Index (BMI) 26.4 Physical Exam Narrative Physical exam: General: Well-nourished, well-developed. Head: Normocephalic, atraumatic, no tenderness Eyes: Vision is grossly intact. EOMI ENT, no trauma, moist mucous membranes, no rhinorrhea Neck: Nontender, No thyromegaly. CVS: Regular rate and rhythm. S1-S2 present. No murmur, gallop or rub. Respiratory : clear to auscultation bilaterally, chest wall nontender Abdomen: Soft, nontender, nondistended, normal bowel sounds, no masses : Deferred Back: Nontender, no CVA tenderness, no midline spinal tenderness, deformities, step-offs Extremities: Nontender full range of motion, no trauma Skin: Normal color, no trauma, abrasions Neuro: Alert, oriented, cranial nerves II through XII grossly intact. Psychiatry: Normal mood. Normal affect. Not depressed. Not anxious. Results Lab / Micro Data 02/04/23 17:55 02/04/23 17:55 Labs: Laboratory Results - last 24 hr 02/04/23 17:55: WBC 8.5, RBC 3.34 L, Hgb 10.9 L, Hct 33.8 L, MCV 101.2 H, MCH 32.6 H, MCHC 32.2, RDW Std Deviation 50.3 H, RDW Coeff of Donald 13.5, Plt Count 234, MPV 11.1, Immature Gran % (Auto) 0.400, Neut % (Auto) 66.6, Lymph % (Auto) 20.7, [place] % (Auto) 9.6, Eos % (Auto) 2.2, Baso % (Auto) 0.5, Absolute Neuts (auto) 5.7, Absolute Lymphs (auto) 1.75, Nucleated RBC % 0, Sodium 133 L, Potassium 4.1, Chloride 102, Carbon Dioxide 24.0, Anion Gap 7, BUN 28 H, C reatinine 1.51 H, Estim Creat Clear Calc 33.44, Est GFR (MDRD) Af Amer 57 L, Est GFR (MDRD) Non-Af 47 L, BUN/Creatinine Ratio 18.5, Glucose 98, Lactic Acid 1.5, Calcium 8.6, Total Bilirubin 0.40, Direct Bilirubin 0.15, AST 14 L, ALT 23, Alkaline Phosphatase 118 H, Troponin I High Sens 10, B-Natriuretic Peptide 217.7 H, Total Protein 7.1, Albumin 3.1 L, Globulin 4.0, Lipase 76 H 02/04/23 19:06: Urine Color Yellow, Urine Clarity Sl. Cloudy, Urine pH 5.0, Ur Specific [place] 1.015, Urine Protein 30 H, Urine Glucose (UA) Normal, Urine Ketones Negative, Urine Occult Blood 150 H, Urine Nitrite Positive H, Urine Bilirubin Negative, Urine Urobilinogen Normal, Ur Leukocyte Esterase 500 H, Urine RBC 0 SEEN, Urine WBC 10-25 SEEN, Ur Squamous Epith Cells 0 SEEN, Urine Bacteria 2+, Urine Mucus 0 SEEN Radiology Impression Chest X-Ray 02/04/23 18:15 IMPRESSION: No radiographic evidence of acute cardiopulmonary disease. Electronically Signed: Meg Hoover MD at 18:42 EDT Reading Location ID and State: [address] [place] [address] , Service support , Assessment & Plan Assessment/Plan (1) UTI (urinary tract infection): QUALIFIERS: Hematuria presence: without hematuria Urinary tract infection type: acute cystitis Qualified Code(s): N30.00 - Acute cystitis without hematuria (2) Bradycardia: PLAN: Plan Acute cystitis Patient with urinary symptoms. Urinalysis was reviewed. Urinalysis with protein of 30; urine occult blood present; urine nitrite present urine leukocyte esterase of 500; urine bacteria of 2+. Urine culture was obtained in the emergency department, follow. Started on ceftriaxone emergency department and continued. White count is normal. Trend CBC. Trend BMP Bradycardia Reportedly outpatient heart rate was about 42 and patient with EKG evidence of bradycardia with underlying A-fib. Reportedly patient is not on anticoagulation. Patient reports history of multiple falls that may be the reason why patient is not on anticoagulation. Considering adjusting patient's beta-deondre if he still on after home med reconciliation. Hypotension Blood pressure is stable at the ED. However reportedly was having hypotension outpatient. Considering adjusting patient blood pressure medications or placing parameters on blood pressure medication after medicine reconciliation. Will place parameters on blood pressure medication DVT prophylaxis Subcutaneous Lovenox ordered. Time spent in the patient's overall evaluation,decision-making process, review of diagnostic data, adjustment of management, discussion with other providers, nursing nursing and ancillary staff involved in patient's care documentation, 60 minutes. Charges/Coding Visit Charges Inpatient E&M: 17505 Init Hosp L3
[2023-02-04 21:02] LABS: Troponin-I HS 10 pg/mL (3.0-78.0)
[2023-02-04 21:16] VITALS: BP 112/70; PULSE 65; RESP 22; TEMP 36.7; O2SAT 98
[2023-02-04 22:26] VITALS: BMI 27.6
[2023-02-04 22:31] VITALS: BP 151/58; PULSE 72; RESP 18; TEMP 36.8; O2SAT 99
[2023-02-04] MEDS: 0.9% Normal Saline 1,000 ML 75 ML IV (22:38)
[2023-02-04] MEDS: 0.9% Saline Lock 10 ML Syringe IV (22:39)
[2023-02-05 04:15] VITALS: BP 136/60; PULSE 58; RESP 16; TEMP 36.4; O2SAT 95
[2023-02-05 06:36] LABS: Absolute Neutrophil Count 5.4 X10^3/uL (2.0-7.7); Basophil# 0.05 X10^3/uL; Basophil% 0.6 % (0-1); Eosinophil# 0.29 X10^3/uL; Eosinophils% 3.4 % (0-5); Hematocrit 31.9 % (40-54); Hemoglobin 10.4 g/dL (13.0-16.5); Lymphocyte % 24.4 % (19-41); Mean Corp Hgb Conc 32.6 g/dL (32-36); Mean Corpuscular Hgb 32.9 pg (27.0-32.0); Mean Corpuscular Volume 100.9 fL (80-94); Mean Platelet Vol. 10.9 fl (6.2-12.0); Monocyte# 0.72 X10^3/uL; Monocyte% 8.4 % (0-10); NRBC Flagged by Analyzer 0 % (0-5); Neutrophil # 5.42 X10^3/uL (2.7-7.7); Neutrophil % 62.9 % (47-70); Platelet Count 205 K/mm3 (150-450); RBC Distribution Width CV 13.5 % (11.6-14.6); RBC Distribution Width SD 50.3 fl (35.1-43.9); Red Blood Count 3.16 M/mm3 (4.6-6.2); White Blood Count 8.6 K/mm3 (4.4-11.0)
[2023-02-05 07:32] LABS: Anion Gap 6 (5-15); BUN 25 mg/dL (7-18); BUN/Creat Ratio 19.8 RATIO (10-20); Calcium,Total 8.4 mg/dL (8.5-10.1); Chloride 106 mmol/L (98-107); Creatinine, Serum 1.26 mg/dL (0.70-1.30); EST Glomerular Filtration Rate 58 mL/min (>60); Est Glom Filt Rate - Afr Amer 70 mL/min (>60); Estimated Creatinine Clearance 37.29 ml/min; Glucose 97 mg/dL (74-106); Potassium 3.6 mmol/L (3.5-5.1); Sodium Level 137 mmol/L (136-145); Thyroid Stim Hormone (TSH) 1.34 uIU/mL (0.358-3.74)
--- NOTE | 2023-02-05 08:24 | PN.HOSP_ITS ---
Reason for Visit Reason for Visit: Diagnoses Acute cystitis without hematuria (02/04/23) Bradycardia, unspecified (02/04/23) Subjective Subjective Feels weak. Objective Data Objective Data Vital Signs: Vital Signs Temp Pulse Resp BP Pulse Ox O2 Del Method 36.4 C L 58 L 16 136/60 H 95 Room Air 02/05/23 04:15 02/05/23 04:15 02/05/23 04:15 02/05/23 04:15 02/05/23 04:15 02/05/23 04:15 Oxygen Delivery Method Room Air Weight: 75.4 kg Body Mass Index (BMI) 27.6 Intake & Output: Intake and Output for Last 24 Hours 02/03/23 02/04/23 02/05/23 23:59 23:59 23:59 Intake Total 550 / 670 120 / 120 Output Total 300 / 300 Balance 550 / 670 -180 / -180 Lab / Micro Data 02/05/23 06:14 02/05/23 06:14 Labs: Laboratory Results - last 24 hr 02/04/23 17:55: WBC 8.5, RBC 3.34 L, Hgb 10.9 L, Hct 33.8 L, MCV 101.2 H, MCH 32.6 H, MCHC 32.2, RDW Std Deviation 50.3 H, RDW Coeff of Donald 13.5, Plt Count 234, MPV 11.1, Immature Gran % (Auto) 0.400, Neut % (Auto) 66.6, Lymph % (Auto) 20.7, [place] % (Auto) 9.6, Eos % (Auto) 2.2, Baso % (Auto) 0.5, Absolute Neuts (auto) 5.7, Absolute Lymphs (auto) 1.75, Nucleated RBC % 0, Sodium 133 L, Potassium 4.1, Chloride 102, Carbon Dioxide 24.0, Anion Gap 7, BUN 28 H, Creatinine 1.51 H, Estim Creat Clear Calc 33.44, Est GFR (MDRD) Af Amer 57 L, Est GFR (MDRD) Non-Af 47 L, BUN/Creatinine Ratio 18.5, Glucose 98, Lactic Acid 1.5, Calcium 8.6, Total Bilirubin 0.40, Direct Bilirubin 0.15, AST 14 L, ALT 23, Alkaline Phosphatase 118 H, Troponin I High Sens 10, B-Natriuretic Peptide 217.7 H, Total Protein 7.1, Albumin 3.1 L, Globulin 4.0, Lipase 76 H 02/04/23 19:06: Urine Color Yellow, Urine Clarity Sl. Cloudy, Urine pH 5.0, Ur Specific [place] 1.015, Urine Protein 30 H, Urine Glucose (UA) Normal, Urine Ketones Negative, Urine Occult Blood 150 H, Urine Nitrite Positive H, Urine Bi lirubin Negative, Urine Urobilinogen Normal, Ur Leukocyte Esterase 500 H, Urine RBC 0 SEEN, Urine WBC 10-25 SEEN, Ur Squamous Epith Cells 0 SEEN, Urine Bacteria 2+, Urine Mucus 0 SEEN 02/04/23 20:20: Troponin I High Sens 10 02/05/23 06:14: WBC 8.6, RBC 3.16 L, Hgb 10.4 L, Hct 31.9 L, MCV 100.9 H, MCH 32.9 H, MCHC 32.6, RDW Std Deviation 50.3 H, RDW Coeff of Donald 13.5, Plt Count 205, MPV 10.9, Immature Gran % (Auto) 0.300, Neut % (Auto) 62.9, Lymph % (Auto) 24.4, [place] % (Auto) 8.4, Eos % (Auto) 3.4, Baso % (Auto) 0.6, Absolute Neuts (auto) 5.4, Absolute Lymphs (auto) 2.10, Nucleated RBC % 0, Sodium 137, Potassium 3.6, Chloride 106, Carbon Dioxide 25.0, Anion Gap 6, BUN 25 H, Creatinine 1.26, Estim Creat Clear Calc 37.29, Est GFR (MDRD) Af Amer 70, Est GFR (MDRD) Non-Af 58 L, BUN/Creatinine Ratio 19.8, Glucose 97, Calcium 8.4 L, TSH 1.34 Radiography Diagnostic Testing: Radiology Impression Chest X-Ray 02/04/23 18:15 IMPRESSION: No radiographic evidence of acute cardiopulmonary disease. Electronically Signed: Meg Hoover MD at 18:42 EDT Reading Location ID and State: [id number] [facility] , Service support , Physical Exam Const alert and no apparent distress Constitutional Narrative: nontoxic. Resp normal respiratory effort, no retractions, no use of accessory muscles and clear to auscultation bilaterally Cardio regular rate, regular rhythm, S1 normal heart sound and S2 normal heart sound GI normal to inspection, nondistended, normoactive bowel sounds GI Narrative: protuberant, but soft. Assessment & Plan Assessment/Plan (1) Bradycardia: PLAN: Reportedly outpatient heart rate was about 42 and patient with EKG evidence of bradycardia with underlying A-fib. Carvedilol decreased to 3.125 BID (2) UTI (urinary tract infection): QUALIFIERS: Hematuria presence: without hematuria Urinary tract infection type: acute cystitis Qualified Code(s): N30.00 - Acute cystitis without hematuria PLAN: Urinalysis mildly abnormal. Urinalysis with protein of 30; urine occult blood present; urine nitrite present urine leukocyte esterase of 500; urine bacteria of 2+. Continue CTX Check bladder scan (3) Acute hypotension: PLAN: Resolved May be iatrogenic. Lisinopril held. Amlodipine continued. PLAN: Plan Chronic conditions: * BPH: continue doxazosin, finasteride * Dementia: continue donepezil * anemia: stable. continue ferrous sulfate * PUD: continue pantoprazole VTE prophylaxis: enoxaparin DW patient's daughter who expressed concerns about communication w PCP upon discharge. I explained to her that I, or whom ever takes over his care, will assess his medications upon discharge and provide a script for new or adjusted medications. Unless he goes to a SNF, he will have prescription from the hospital for those medications, but the medication list will be provided. Greater than 55 minutes of which greater than 50% of the time was counseling the patient and daughter about his medical conditions, treatment and possibilities for disposition. Charges/Coding Visit Charges Inpatient E&M: 02949 Subs Hosp L3
[2023-02-05] MEDS: Multivitamins,Therapeutic Tablet 1 TABLET PO (09:22)
[2023-02-05] MEDS: Carvedilol 3.125 MG TABLET PO (09:22)
[2023-02-05] MEDS: Ferrous Sulfate 325 MG Tablet PO (09:22)
[2023-02-05] MEDS: Finasteride 5 MG Tablet PO (09:22)
[2023-02-05] MEDS: Pantoprazole Sodium 40 MG Tablet PO ×2 (09:22→21:28)
[2023-02-05] MEDS: Enoxaparin 40 MG/0.4 ML Syringe SC (09:23)
[2023-02-05] MEDS: amLODIPine 2.5 MG Tablet PO (09:23)
[2023-02-05 09:26] VITALS: BP 127/87; PULSE 45; RESP 16; TEMP 36.6; O2SAT 99
[2023-02-05 10:06] VITALS: BP 127/87; PULSE 59; RESP 16; TEMP 36.6; O2SAT 99
[2023-02-05] MEDS: 0.9% Normal Saline 1,000 ML 75 ML IV (12:19)
--- NOTE | 2023-02-05 13:22 | CASEMGMT ---
Discharge Planning Updates faxed to [place] with fax confirmation received. Jessy Haji, Discharge Planning Asst.
[2023-02-05 15:05] VITALS: BP 116/67; PULSE 64; RESP 18; TEMP 36.6; O2SAT 99
--- NOTE | 2023-02-05 16:24 | CASEMGMT ---
Care Mgmt Met with patient to complete ROLON form. ROLON form explained to patient who voiced understanding and signed form. Original form placed in pt?s chart and copy provided to patient. Jessy Haji, Discharge Planning Asst. ?
[2023-02-05 17:00] VITALS: BP 131/67; PULSE 94; RESP 16; TEMP 37.2; O2SAT 100
--- NOTE | 2023-02-05 18:25 | CASEMGMT ---
Social Work Chart reviewed and noted patient is from [facility]. Clinical update sent to [facility] by discharge strike planning applications today. Met with patient in room who confirms wish to return to [facility]. This junior underwriter clarified as to which child should be the primary contact, as noted multiple contacts with daughter Sindy throughout patient's hospitalizations, but noted patient listed son Atif Red as the POAHC. Patient reports it is okay to talk with any of the children, but that his son just had back surgery so likely not able to talk much right now. Asked if okay to talk with Sindy, as noted Sindy is listed as a primary contact. Patient stated agreement. Patient asked for a shirt to be brought in when Sindy brings patient's to visit. Called Sindy who reports plan to visit this evening and will bring in a shirt. [facility] also reports will transport patient back to [facility] when ready. This junior underwriter did speak to a nurse, Pepe, at [facility] who reports patient can return whenever medically ready. Reports to have nurses 24 hours a day, so patient can come back at anytime. GREEN SHEET on chart, for nursing to follow in case of weekend discharge. Plan: Return to [facility] when ready. -MARCELINO Garrett
[2023-02-05 21:10] VITALS: BP 138/93; PULSE 66; RESP 15; TEMP 36.6; O2SAT 99
[2023-02-05] MEDS: Donepezil HCl 5 MG Tablet PO (21:25)
[2023-02-05] MEDS: MELATONIN 10 MG TABLET 5 MG PO (21:25)
[2023-02-05] MEDS: Doxazosin 4 MG Tablet PO (21:25)
[2023-02-05] MEDS: Ceftriaxone 1 GM/50 ML BAG IV (21:38)
[2023-02-05] MEDS: Glycerin/Hypromellose/PEG400 15 ml Bottle 1 DRP EACH EYE (23:31)
[2023-02-06] MEDS: 0.9% Normal Saline 1,000 ML 75 ML IV
[2023-02-06 02:36] VITALS: BP 125/57; PULSE 62; RESP 12; TEMP 36.9; O2SAT 96
--- NOTE | 2023-02-06 08:31 | PCM.PN.HOSP ---
Reason for Visit Reason for Visit: Diagnoses Hypotension, unspecified (02/04/23) Acute cystitis without hematuria (02/04/23) Bradycardia, unspecified (02/04/23) Subjective Subjective Generalized malaise. No specific complaints. Objective Data Objective Data Vital Signs: Vital Signs Temp Pulse Resp BP Pulse Ox O2 Del Method 36.9 C 62 12 125/57 H 96 Room Air 02/06/23 02:36 02/06/23 02:36 02/06/23 02:36 02/06/23 02:36 02/06/23 02:36 02/06/23 02:36 Oxygen Delivery Method Room Air Weight: 75.4 kg Body Mass Index (BMI) 27.6 Intake & Output: Intake and Output for Last 24 Hours 02/04/23 02/05/23 02/06/23 23:59 23:59 23:59 Intake Total 550 / 670 1570 / 2446.25 876.25 / 876.25 Output Total 1050 / 1050 350 / 350 Balance 550 / 670 520 / 1396.25 526.25 / 526.25 Lab / Micro Data 02/06/23 08:12 02/06/23 08:12 Micro: Microbiology 02/04/23 19:06 Urine, Clean Catch Urine Culture - Final Escherichia coli Physical Exam Const alert and no apparent distress Resp normal respiratory effort, no retractions, no use of accessory muscles and clear to auscultation bilaterally Cardio regular rate, regular rhythm, S1 normal heart sound and S2 normal heart sound GI normal to inspection, nondistended, normoactive bowel sounds, soft to palpation, non-tender and non-distended Assessment & Plan Assessment/Plan (1) Bradycardia: PLAN: Reportedly outpatient heart rate was about 42 and patient with EKG evidence of bradycardia with underlying A-fib. Carvedilol discontinued. Cannot rule out that it may need to be resumed, but not at this time. (2) UTI (urinary tract infection): QUALIFIERS: Hematuria presence: without hematuria Urinary tract infection type: acute cystitis Qualified Code(s): N30.00 - Acute cystitis without hematuria PLAN: Urinalysis mildly abnormal. Urinalysis with protein of 30; urine occult blood present; urine nitrite present urine leukocyte esterase of 500; urine bacteria of 2+. Continue CTX Check bladder scan UCx shows greater than 100k E. coli, villa-sensitive. DC with macrobid. (3) Acute hypotension: PLAN: Resolved May be iatrogenic. Lisinopril held. Amlodipine continued. PLAN: Plan Chronic conditions: BPH: continue doxazosin, finasteride Dementia: continue donepezil anemia: stable. continue ferrous sulfate PUD: continue pantoprazole VTE prophylaxis: enoxaparin 02/05: DW patient's daughter who expressed concerns about communication w PCP upon discharge. I explained to her that I, or whom ever takes over his care, will assess his medications upon discharge and provide a script for new or adjusted medications. Unless he goes to a SNF, he will have prescription from the hospital for those medications, but the medication list will be provided. DC back to assisted living. Was able to walk 70 feet with contact guard. DC with [facility]. Charges/Coding Visit Charges Inpatient E&M: 79662 Subs Hosp L2
[2023-02-06 08:59] LABS: Absolute Lymphocyte Count 2.03 X10^3/uL (0.83-4.51); Absolute Neutrophil Count 3.2 X10^3/uL (2.0-7.7); Basophil# 0.05 X10^3/uL; Basophil% 0.8 % (0-1); Eosinophil# 0.31 X10^3/uL; Hematocrit 30.4 % (40-54); Hemoglobin 10.1 g/dL (13.0-16.5); Lymphocyte # 2.03 X10^3/ul (0.83-4.51); Lymphocyte % 32.7 % (19-41); Mean Corp Hgb Conc 33.2 g/dL (32-36); Mean Corpuscular Hgb 33.6 pg (27.0-32.0); Mean Platelet Vol. 11.5 fl (6.2-12.0); Monocyte# 0.56 X10^3/uL; NRBC Flagged by Analyzer 0 % (0-5); Neutrophil # 3.22 X10^3/uL (2.7-7.7); Platelet Count 197 K/mm3 (150-450); RBC Distribution Width CV 13.7 % (11.6-14.6); Red Blood Count 3.01 M/mm3 (4.6-6.2); White Blood Count 6.2 K/mm3 (4.4-11.0)
[2023-02-06 09:17] LABS: Anion Gap 3 (5-15); BUN 18 mg/dL (7-18); BUN/Creat Ratio 16.1 RATIO (10-20); Calcium,Total 8.4 mg/dL (8.5-10.1); Chloride 109 mmol/L (98-107); Creatinine, Serum 1.12 mg/dL (0.70-1.30); EST Glomerular Filtration Rate 66 mL/min (>60); Est Glom Filt Rate - Afr Amer 80 mL/min (>60); Estimated Creatinine Clearance 41.95 ml/min; Glucose 95 mg/dL (74-106); Potassium 3.5 mmol/L (3.5-5.1); Sodium Level 138 mmol/L (136-145)
[2023-02-06 10:42] VITALS: BP 147/80; PULSE 62; RESP 16; TEMP 36.6; O2SAT 98
[2023-02-06] MEDS: Ferrous Sulfate 325 MG Tablet PO (10:50)
[2023-02-06] MEDS: amLODIPine 2.5 MG Tablet PO (10:51)
[2023-02-06] MEDS: Finasteride 5 MG Tablet PO (10:51)
[2023-02-06] MEDS: Multivitamins,Therapeutic Tablet 1 TABLET PO (10:51)
[2023-02-06] MEDS: Pantoprazole Sodium 40 MG Tablet PO (10:51)
[2023-02-06] MEDS: Enoxaparin 40 MG/0.4 ML Syringe SC (10:51)
[2023-02-06] MEDS: Glycerin/Hypromellose/PEG400 15 ml Bottle 1 DRP EACH EYE (10:52)
--- NOTE | 2023-02-06 12:56 | PCM.DC.SUM ---
Providers Date of Admission: 02/04/23 Primary Care Physician: Dr. Jaime Johnson MD Reason For Visit: WEAKNESS, UTI, BRADYCARDIA Diagnosis Discharge Diagnosis (1) Bradycardia: Status: Resolved Code(s): R00.1 - Bradycardia, unspecified Plan: Reportedly outpatient heart rate was about 42 and patient with EKG evidence of bradycardia with underlying A-fib. Carvedilol discontinued. Cannot rule out that it may need to be resumed, but not at this time. (2) UTI (urinary tract infection): Status: Acute Code(s): N39.0 - Urinary tract infection, site not specified Qualifiers: Urinary tract infection type: acute cystitis Hematuria presence: without hematuria Qualified Code(s): N30.00 - Acute cystitis without hematuria Plan: Urinalysis mildly abnormal. Urinalysis with protein of 30; urine occult blood present; urine nitrite present urine leukocyte esterase of 500; urine bacteria of 2+. Continue CTX Check bladder scan UCx shows greater than 100k E. coli, villa-sensitive. DC with macrobid. (3) Acute hypotension: Status: Acute Code(s): I95.9 - Hypotension, unspecified Plan: Resolved May be iatrogenic. Lisinopril held. Amlodipine continued. Plan Chronic conditions: BPH: continue doxazosin, finasteride Dementia: continue donepezil anemia: stable. continue ferrous sulfate PUD: continue pantoprazole VTE prophylaxis: enoxaparin 02/05: DW patient's daughter who expressed concerns about communication w PCP upon discharge. I explained to her that I, or whom ever takes over his care, will assess his medications upon discharge and provide a script for new or adjusted medications. Unless he goes to a SNF, he will have prescription from the hospital for those medications, but the medication list will be provided. DC back to assisted living. Was able to walk 70 feet with contact guard. DC with [facility]. Medications at Discharge Home Medications multivitamin 1 ea PO DAILY supplement 07/02/15 finasteride 5 mg tablet 5 mg PO QDAY urinary retention 05/17/17 amlodipine 2.5 mg tablet 2.5 mg PO DAILY blood pressure 12/31/22 ferrous sulfate 325 mg (65 mg iron) tablet (FeroSul) 325 mg PO DAILY suppliment 12/31/22 acetaminophen 325 mg tablet 650 mg (2 x 325 mg) PO Q6H PRN PRN Pain Score 1-10 #1 TAB 01/11/23 melatonin 5 mg capsule 5 mg PO QHS 01/29/23 donepezil 5 mg tablet 5 mg PO QHS #0 tabs 02/02/23 pantoprazole 40 mg tablet,delayed release 40 mg PO BID #60 tabs 02/02/23 omeprazole 20 mg capsule,delayed release 20 mg PO BID 02/04/23 ondansetron 4 mg disintegrating tablet 4 mg PO Q8H 02/04/23 terazosin 5 mg capsule 5 mg PO QHS 02/04/23 nitrofurantoin macrocrystal 100 mg capsule 100 mg PO BID 5 days #10 caps 02/06/23 peg [id number] 1 %-0.2 %-0.2 % eye drops (Artificial Tears ([id number])) 1 drp EACH EYE Q1H PRN PRN DRY EYES #0 mL 02/06/23 Hospital Course Operations None Procedures None Summary of Care Provided Minutes Spent on Discharge: 35 Weight / BMI Weight Weight: 75.4 kg Body Mass Index (BMI) 27.6 ABG / Lab / Microbiology Data 02/06/23 08:12 02/06/23 08:12 Laboratory: Laboratory Results - last 24 hr 02/06/23 08:12: WBC 6.2, RBC 3.01 L, Hgb 10.1 L, Hct 30.4 L, MCV 101.0 H, MCH 33.6 H, MCHC 33.2, RDW Std Deviation 51.0 H, RDW Coeff of Donald 13.7, Plt Count 197, MPV 11.5, Immature Gran % (Auto) 0.500, Neut % (Auto) 52.0, Lymph % (Auto) 32.7, [place] % (Auto) 9.0, Eos % (Auto) 5.0, Baso % (Auto) 0.8, Absolute Neuts (auto) 3.2, Absolute Lymphs (auto) 2.03, Nucleated RBC % 0, Sodium 138, Potassium 3.5, Chloride 109 H, Carbon Dioxide 26.0, Anion Gap 3 L, BUN 18, Creatinine 1.12, Estim Creat Clear Calc 41.95, Est GFR (MDRD) Af Amer 80, Est GFR (MDRD) Non-Af 66, BUN/Creatinine Ratio 16.1, Glucose 95, Calcium 8.4 L Microbiology: Microbiology 02/04/23 19:06 Urine, Clean Catch Urine Culture - Final Escherichia coli D/C Instructions Discharge Diet: No restrictions Meaningful Use Info Meaningful Use Diagnoses (Choose all that apply): None applicable Discharge Plan Admission Admit Date/Time: 02/04/23 20:54 Primary Reason for Your Visit: bradycardia. hypotension. UTI. Attending Provider: Sagar Ng Primary Care Provider: Jaime Johnson Consulting Providers: Wilder Devlin Discharge Orders/Prescriptions Prescriptions: New Artificial Tears([id number]) 1-0.2-0.2 % Drops 1 drp EACH EYE Q1H PRN PRN (Reason: DRY EYES) Qty: 0 0RF nitrofurantoin macrocrystal 100 mg capsule 100 mg PO BID 5 Days Qty: 10 0RF Rx Instructions: must administer with a meal/food Continued finasteride 5 mg tablet 5 mg PO QDAY multivitamin 1 EACH tablet 1 ea PO DAILY acetaminophen 325 mg Tablet 650 mg PO Q6H PRN PRN (Reason: Pain Score 1-10) Qty: 1 0RF melatonin 5 mg capsule 5 mg PO QHS pantoprazole 40 mg Tablet,Delayed Release (Dr/Ec) 40 mg PO BID Qty: 60 0RF donepezil 5 mg Tablet 5 mg PO QHS Qty: 0 0RF amlodipine 2.5 mg tablet 2.5 mg PO DAILY ferrous sulfate [FeroSul] 325 mg (65 mg iron) tablet 325 mg PO DAILY terazosin 5 mg capsule 5 mg PO QHS omeprazole 20 mg capsule,delayed release(DR/EC) 20 mg PO BID ondansetron 4 mg tablet,disintegrating 4 mg PO Q8H Discontinued carvedilol 3.125 mg Tablet 6.25 mg PO BIDCM Rx Instructions: Decreased due to bradycardia and low BP lisinopril 40 mg tablet 40 mg PO DAILY Referrals / Follow Up: Jaime Johnson MD [Primary Care Provider] - Within 1 Week Disposition Disposition (needs filled in before D/C Order can be placed): Home, Self Care Charges/Coding Visit Charges Inpatient E&M: 31622 Disch Hosp >30min
[2023-02-06 14:40] VITALS: BP 133/54; PULSE 62; RESP 18; TEMP 37.1; O2SAT 100
--- NOTE | 2023-02-06 14:51 | NURSING ---
Gave report to Rochelle at [facility].
== END 2023-02-06 15:19 | disposition home health service (06) ==
LOC: ED 20:59 → PCU 21:07
PROVIDERS: Admitting Provider Hospitalist; Emergency Provider Emergency Medicine; PCP Family Medicine
DX: R00.1 Bradycardia, unspecified (principal); F03.90 Unspecified dementia, unspecified severity, without behavioral disturbance, psychotic disturbance, mood disturbance, and anxiety; I48.91 Unspecified atrial fibrillation; N18.31 Chronic kidney disease, stage 3a; I12.9 Hypertensive chronic kidney disease with stage 1 through stage 4 chronic kidney disease, or unspecified chronic kidney disease; N30.00 Acute cystitis without hematuria; Z87.891 Personal history of nicotine dependence; N40.0 Benign prostatic hyperplasia without lower urinary tract symptoms; I95.9 Hypotension, unspecified; K21.9 Gastro-esophageal reflux disease without esophagitis; Z79.899 Other long term (current) drug therapy; K27.9 Peptic ulcer, site unspecified, unspecified as acute or chronic, without hemorrhage or perforation
CPT/HCPCS: 36415; 71045; 80048; 80076; 81001; 83605; 83690; 83880; 84443; 84484; 85025; 87077; 87086; 87088; 87186; 93005; 97162; 97166; 97535; 99285; J7030; J7040; J7050; A4216

== ENCOUNTER 2023-05-21 13:57 | Emergency (ER) | payer MEDICARE, SELFPAY ==
[2023-05-21 13:59] VITALS: BP 158/79; PULSE 62; RESP 14; TEMP 36.8; O2SAT 98
--- NOTE | 2023-05-21 14:31 | CT_ITS ---
STUDY: CT ABDOMEN AND PELVIS WITHOUT CONTRAST REASON FOR EXAM: Male, 87 years old. Left back and hip pain after fall RADIATION DOSAGE (If Supplied By Facility): CTDIvol = ( 15.47 ) mGy, DLP = ( 803.90 ) mGycm TECHNIQUE: Transaxial images were obtained from the dome of the diaphragm to the symphysis pubis without oral contrast, and without intravenous contrast. Sagittal and coronal images were reconstructed. Individualized dose optimization techniques were used for this CT. COMPARISON: None. FINDINGS: Increased markings in the anterior aspect of the right middle lobe suggestive of atelectasis. Coronary artery calcification. Normal liver. The patient is status post cholecystectomy. Normal spleen. Normal pancreas. Normal bilateral adrenal glands. Normal right kidney. Normal left kidney. Normal visualized stomach. Normal small intestine. Normal colon. The appendix is visualized and appears normal. There is diffuse atherosclerotic calcification of the abdominal aorta, without a demonstrated aneurysm. Normal inferior vena cava. Normal retroperitoneum. Distended urinary bladder. Small left inguinal hernia containing a nondilated loop of colon. There are diffuse degenerative changes of the visualized lumbar spine. CT/Abdomen/Pelvis without Cont IMPRESSION: Increased markings in the right middle lobe suggestive of atelectasis. Distended urinary bladder. Small left inguinal hernia containing nondilated loop of bowel. Electronically Signed: Travis Rosario MD at 15:10 EST ,
--- NOTE | 2023-05-21 14:32 | EDS_ITS ---
HPI History of Present Illness Chief Complaint: Lower Extremity Injury Detail of Chief Complaint: Low back and left hip pain Informant: patient Narrative Narrative: Patient presents to the emergency department with complaint of pain in his left low back and hip. Patient states he fell 2 or 3 days ago onto the wheel of his walker and has had pain since. Not having hard time getting out of bed because of the pain. Apparently had x-rays at the assisted living facility of his back that did not show any fractures. Patient denies striking his head or loss of consciousness. He is able to bear weight but painful. Denies urinary symptoms. [facility] Medical History (Updated 05/21/23 @ 15:[address] Connor Augustin, DO) A-fib Abnormal CT of the abdomen Acute kidney injury Anemia BPH (benign prostatic hyperplasia) Chronic renal failure, stage 3a Dementia with behavioral problem Fall GERD (gastroesophageal reflux disease) H/O normocytic normochromic anemia Hypertension Neuropathic pain Osteoarthritis Restless legs syndrome Somatic dysfunction of rib Home Medications multivitamin 1 ea PO DAILY supplement 07/02/15 [History Last Taken Unknown] finasteride 5 mg tablet 5 mg PO QDAY urinary retention 05/17/17 [History Last Taken Unknown] amlodipine 2.5 mg tablet 2.5 mg PO DAILY blood pressure 12/31/22 [History Last Taken Unknown] ferrous sulfate 325 mg (65 mg iron) tablet (FeroSul) 325 mg PO DAILY suppliment 12/31/22 [History Last Taken 12/31/22] acetaminophen 325 mg tablet 650 mg (2 x 325 mg) PO Q6H PRN PRN Pain Score 1-10 #1 TAB 01/11/23 [Rx Last Taken Unknown] donepezil 5 mg tablet 5 mg PO QHS memory #0 tabs 02/02/23 [Rx Last Taken Unknown] pantoprazole 40 mg tablet,delayed release 40 mg PO BID reflux #60 tabs 02/02/23 [Rx Last Taken Unknown] ondansetron 4 mg disintegrating tablet 4 mg PO Q8H nausea 02/04/23 [History Last Taken Unknown] nitrofurantoin macrocrystal 100 mg capsule 100 mg PO BID 5 days #10 caps 02/06/23 [Rx Last Taken Unknown] peg [id number] 1 %-0.2 %-0.2 % eye drops (Artificial Tears ([id number])) 1 drp EACH EYE Q1H PRN PRN DRY EYES #0 mL 02/06/23 [Rx Last Taken Unknown] ascorbate calcium (vitamin C) 500 mg tablet 1 g PO DAILY 02/09/23 [History Last Taken Unknown] calcium carbonate 600 mg-vitamin D3 10 mcg (400 unit) tablet 1 tab PO DAILY 0 02/09/23 [History Last Taken Unknown] doxazosin 1 mg tablet 2 mg PO QHS 02/09/23 [History Last Taken Unknown] gabapentin 300 mg capsule 300 mg PO QHS 02/09/23 [History Last Taken Unknown] hydroxyzine pamoate 50 mg capsule (Vistaril) 50 mg PO QHS PRN 02/09/23 [History Last Taken Unknown] magnesium chloride 64 mg (magnesium chloride) tablet 128 mg PO DAILY 02/09/23 [History Last Taken Unknown] melatonin 5 mg capsule 10 mg PO QHS sleep 02/09/23 [History Last Taken Unknown] meloxicam 15 mg tablet 15 mg PO DAILY 02/09/23 [History Last Taken Unknown] polyethylene glycol 3350 17 gram/dose oral powder (Miralax) 4 g PO DAILY 02/09/23 [History Last Taken Unknown] cyclobenzaprine 10 mg tablet 10 mg PO TID PRN Muscle Spasm #20 TABLETS 05/21/23 [Rx Last Taken Unknown] Allergy/AdvReac Type Severity Reaction Status Date / Time aspirin Allergy Unknown Unknown Verified 05/21/23 13:59 Penicillins Allergy Rash Verified 05/21/23 13:59 Family History Mother Cirrhosis of liver Surgical History H/O hernia repair Hx of cholecystectomy S/P right rotator cuff repair Unspecified nasal polyp Social History household members: spouse housing: assisted living facility current occupational status: retired Smoking Status: Former smoker how long ago did patient quit smokin years ago ROS ROS ED Review of Systems ROS Unobtainable: other Constitutional Constitutional ED: Reports lethargy; Denies chills, fever(s), sweats or weight loss Eyes Eyes: Denies blurry vision, change in vision or diplopia ENT ENT ED: Denies rhinorrhea or sore throat Cardiovascular Cardiovascular: Denies chest pain, orthopnea or racing heartbeat Respiratory/Chest Respiratory/Chest: Denies cough, dyspnea, dyspnea on exertion, orthopnea or sputum Gastrointestinal Gastrointestinal: Denies abdominal pain, diarrhea, nausea or vomiting Genitourinary Genitourinary ED: Denies dysuria, hematuria or urinary frequency Musculoskeletal Musculoskeletal: Reports back pain and other Details: Left hip pain ; Denies arthralgias, myalgias or neck pain Integumentary Denies abscess, Abrasions or rash Neurologic Neurologic: Denies headache(s) or weakness Psychiatric Psychiatric: Denies anxiety, depression or suicidal thoughts Endocrine Endocrinology: Denies polydipsia, polyphagia or polyuria Hematologic/Lymphatic Hematologic/Lymphatic: Denies easy bleeding, easy bruising or lymphadenopathy Allergic/Immunologic Allergic/Immunologic ED: Denies mouth swelling, tongue swelling or urticaria EXAM Physical Exam Const Vital Signs: 05/21/23 13:59 Temperature 98.2 F Temperature Source Temporal Pulse Rate 62 Respiratory Rate 14 Blood Pressure 158/79 H Blood Pressure Mean 105 Pulse Ox 98 Oxygen Delivery Method Room Air Positive well nourished and well developed General Appearance ED: well developed and NAD HEENT Reports TM's clear and moist mucous membranes normocephalic and atraumatic; Negative for trauma or tenderness Tympanic Membrane ED: Yes TM's clear Eyes PERRL and EOMs intact bilaterally General Eye ED: Negative for pale conjunctiva or scleral icterus Neck no lymphadenopathy, supple and no JVD General: Negative for tenderness Chest Wall inspection of chest normal and palpation of chest normal Chest: Negative for tenderness Resp normal respiratory effort and clear to auscultation bilaterally Effort and Inspection: Negative for respiratory distress or pain with movement Auscultation: Negative for rhonchi, wheezes or diminished lung sounds Cardio regular rate, regular rhythm, S1 normal heart sound, S2 normal heart sound and no murmurs Peripheral Pulses: pulses 2+ throughout GI normal to inspection, nondistended, normoactive bowel sounds, soft to palpation, non-tender, non-distended and no masses Back/Spine no CVA tenderness Back/Spine Narrative: Tenderness over the lower lumbar spine. Patient has tenderness over the left lumbar paraspinal musculature that reproduces his pain. Do not appreciate significant bruising. Patient also with tenderness over the left hip. Negative straight leg raise. Mild discomfort with logrolling. Neurovascular intact distally. No shortening. Extremity normal to inspection General Extremety ED: Negative for edema General Extremity: Negative for edema Neuro oriented x3, CN's II-XII intact bilaterally, no sensory deficits noted and gait normal Sensorium / Orientation: awake, alert, oriented to person, oriented to place and oriented to time Motor Exam: strength 5/5 throughout and strength abnormal Psych mental status grossly normal Skin no rashes or lesions noted and no wounds MDM MDM MDM Narrative Medical decision making narrative: No radiculopathic signs or symptoms. Patient presents with pain in his back after a fall. He describes intermittent spasms. Had x-rays at assisted living that were negative but patient had a hard time getting out of bed and moving around so he was referred to the emergency department. Patient had an IV line established. CBC with differential obtained showing a 6.8 with hemoglobin 13 and platelet count of 248. Chemistries unremarkable. We did obtain a CT scan of the abdomen pelvis without contrast which was essentially unremarkable. I wanted to evaluate his pelvis and hip as well as his lumbar spine and there was no evidence of fractures noted. This point SPECT likely this is more spasm in his low back. I offered him admission for pain control and possible placement to rehab facility or transitional care unit here at the hospital. Patient would prefer to go back to the assisted living facility. I did give him a dose of morphine and Zofran. I will write him a prescription for Flexeril. Patient's daughter is with him and she and her other sister have medical power of beauty culture teacher and they are comfortable with plan. Lab Data Attestation: I reviewed the patient's lab results. Labs: Laboratory Results - last 24 hr 05/21/23 14:44 WBC 6.8 RBC 3.88 L Hgb 13.0 Hct 38.4 L MCV 99.0 H MCH 33.5 H MCHC 33.9 RDW Std Deviation 49.1 H RDW Coeff of Donald 13.5 Plt Count 248 MPV 9.3 Immature Gran % (Auto) 0.300 Neut % (Auto) 62.4 Lymph % (Auto) 24.0 [place] % (Auto) 10.8 H Eos % (Auto) 2.1 Baso % (Auto) 0.4 Absolute Neuts (auto) 4.2 Absolute Lymphs (auto) 1.62 Nucleated RBC % 0 Sodium 135 L Potassium 4.3 Chloride 101 Carbon Dioxide 29.0 Anion Gap 5 BUN 26 H Creatinine 1.33 H Estim Creat Clear Calc 35.32 Est GFR (MDRD) Af Amer 66 Est GFR (MDRD) Non-Af 54 L BUN/Creatinine Ratio 19.5 Glucose 105 Calcium 9.5 Radiography Diagnostic Testing: Clinical Impression(s) from Imaging Studies Abdomen/Pelvis CT 05/21/23 14:31 IMPRESSION: Increased markings in the right middle lobe suggestive of atelectasis. Distended urinary bladder. Small left inguinal hernia containing nondilated loop of bowel. Electronically Signed: Travis Rosario MD at 15:10 EST , Discharge Plan Triage Chief Complaint: Lower Extremity Injury ED Provider: Connor Augustin Dx/Rx/DC Orders Clinical Impression: Back contusion, Fall Instructions: ED Back Contusion Prescriptions: New cyclobenzaprine [cyclobenzaprine] 10 mg tablet 10 mg PO TID PRN (Reason: Muscle Spasm) Qty: 20 0RF No Action finasteride 5 mg tablet 5 mg PO QDAY meloxicam 15 mg tablet 15 mg PO DAILY hydroxyzine pamoate [Vistaril] 50 mg capsule 50 mg PO QHS PRN calcium carbonate-vitamin D3 600 mg-10 mcg (400 unit) tablet 1 tab PO DAILY gabapentin 300 mg capsule 300 mg PO QHS polyethylene glycol 3350 [Miralax] 17 gram/dose powder 4 g PO DAILY ascorbate calcium (vitamin C) 500 mg tablet 1 g PO DAILY doxazosin 1 mg tablet 2 mg PO QHS magnesium chloride 64 mg magnesium tablet 128 mg PO DAILY multivitamin 1 EACH tablet 1 ea PO DAILY acetaminophen 325 mg Tablet 650 mg PO Q6H PRN PRN (Reason: Pain Score 1-10) Qty: 1 0RF pantoprazole 40 mg Tablet,Delayed Release (Dr/Ec) 40 mg PO BID Qty: 60 0RF donepezil 5 mg Tablet 5 mg PO QHS Qty: 0 0RF melatonin 5 mg capsule 10 mg PO QHS amlodipine 2.5 mg tablet 2.5 mg PO DAILY ferrous sulfate [FeroSul] 325 mg (65 mg iron) tablet 325 mg PO DAILY ondansetron 4 mg tablet,disintegrating 4 mg PO Q8H Artificial Tears(gf-izjy-chow) 1-0.2-0.2 % Drops 1 drp EACH EYE Q1H PRN PRN (Reason: DRY EYES) Qty: 0 0RF nitrofurantoin macrocrystal 100 mg capsule 100 mg PO BID 5 Days Qty: 10 0RF Rx Instructions: must administer with a meal/food Primary Care Provider: Jaime Johnson Referrals: Jaime Johnson MD [Primary Care Provider] - 3-5 Days Disposition Disposition: Home, Self Care
[2023-05-21 14:45] VITALS: BMI 29.7
[2023-05-21 14:54] LABS: Absolute Lymphocyte Count 1.62 X10^3/uL (0.83-4.51); Absolute Neutrophil Count 4.2 X10^3/uL (2.0-7.7); Basophil# 0.03 X10^3/uL; Basophil% 0.4 % (0-1); Eosinophil# 0.14 X10^3/uL; Eosinophils% 2.1 % (0-5); Hematocrit 38.4 % (40-54); Lymphocyte # 1.62 X10^3/ul (0.83-4.51); Mean Corp Hgb Conc 33.9 g/dL (32-36); Mean Corpuscular Hgb 33.5 pg (27.0-32.0); Mean Platelet Vol. 9.3 fl (6.2-12.0); Monocyte# 0.73 X10^3/uL; Monocyte% 10.8 % (0-10); NRBC Flagged by Analyzer 0 % (0-5); Neutrophil # 4.22 X10^3/uL (2.7-7.7); Neutrophil % 62.4 % (47-70); Platelet Count 248 K/mm3 (150-450); RBC Distribution Width CV 13.5 % (11.6-14.6); RBC Distribution Width SD 49.1 fl (35.1-43.9); Red Blood Count 3.88 M/mm3 (4.6-6.2); White Blood Count 6.8 K/mm3 (4.4-11.0)
[2023-05-21 15:17] LABS: Anion Gap 5 (5-15); BUN 26 mg/dL (7-18); BUN/Creat Ratio 19.5 RATIO (10-20); Calcium,Total 9.5 mg/dL (8.5-10.1); Chloride 101 mmol/L (98-107); Creatinine, Serum 1.33 mg/dL (0.70-1.30); EST Glomerular Filtration Rate 54 mL/min (>60); Est Glom Filt Rate - Afr Amer 66 mL/min (>60); Estimated Creatinine Clearance 35.32 ml/min; Glucose 105 mg/dL (74-106); Potassium 4.3 mmol/L (3.5-5.1); Sodium Level 135 mmol/L (136-145)
[2023-05-21] MEDS: Ondansetron 4 MG/2 ML Vial IV (15:46)
[2023-05-21] MEDS: Morphine 4 MG/ML Syringe IV (15:46)
[2023-05-21 15:47] VITALS: BP 135/78; PULSE 88; RESP 16
== END 2023-05-21 16:05 | disposition home or self-care (01) ==
PROVIDERS: Emergency Provider Emergency Medicine; PCP Family Medicine; Visit Provider Emergency Medicine
DX: S20.229A Contusion of unspecified back wall of thorax, initial encounter (principal); F03.918 Unspecified dementia, unspecified severity, with other behavioral disturbance; I48.91 Unspecified atrial fibrillation; N18.31 Chronic kidney disease, stage 3a; I12.9 Hypertensive chronic kidney disease with stage 1 through stage 4 chronic kidney disease, or unspecified chronic kidney disease; M25.552 Pain in left hip; D64.9 Anemia, unspecified; N40.0 Benign prostatic hyperplasia without lower urinary tract symptoms; K21.9 Gastro-esophageal reflux disease without esophagitis; M19.90 Unspecified osteoarthritis, unspecified site; G25.81 Restless legs syndrome; Z79.899 Other long term (current) drug therapy; Z87.891 Personal history of nicotine dependence; W01.198A Fall on same level from slipping, tripping and stumbling with subsequent striking against other object, initial encounter
CPT/HCPCS: 74176; 80048; 85025; 96374; 96375; 99284; J7030; A4216; J2405

== ENCOUNTER 2024-04-11 16:57 | Emergency (ER) | payer MEDICARE, SELFPAY ==
[2024-04-11 16:58] VITALS: BP 141/74; PULSE 84; RESP 16; TEMP 36.6; O2SAT 98
[2024-04-11 17:02] VITALS: BMI 31.1
--- NOTE | 2024-04-11 17:15 | RAD_ITS ---
INDICATION: FALL EXAMINATION/TECHNIQUE: X-RAY - RIGHT XR Shoulder 4 VIEWS COMPARISON: FINDINGS: SOFT TISSUES: No soft tissue swelling or gas. No radiopaque foreign body. Probable previous rotator cuff surgery. BONES/JOINTS: No acute fracture or subluxation.. Degenerative hypertrophy at the acromioclavicular articulation.. No sclerotic or destructive changes observed. RAD/Shoulder min 2 Views IMPRESSION: Degenerative changes. Electronically Signed: Bunny Kline DO at 17:46 EST ,
--- NOTE | 2024-04-11 17:15 | RAD_ITS ---
INDICATION: FALL EXAMINATION/TECHNIQUE: X-RAY - XR Right Hip Unilateral with Pelvis when performed; 3 Views COMPARISON: FINDINGS: PELVIC BONES: No displaced fracture, destructive or sclerotic lesions. Note that overlapping bowel shadows may however obscure fine detail. Sacroiliac joints are unremarkable. No widening of the pubic symphysis. Lower lumbar degenerative changes. HIPS: The articular structures are unremarkable. No displaced fracture seen in this frontal view. SOFT TISSUES: No soft tissue swelling or gas. RAD/HIP, UNI W/ Pelvis 2-3 Views IMPRESSION: No evidence of displaced pelvic or hip fracture. Electronically Signed: Bunny Kline DO at 18:36 EST Reading Location ID and State: [facility] / [place] Tel [phone], Service support ,
[2024-04-11 19:34] VITALS: BP 171/68; PULSE 78; RESP 18; TEMP 36.7; O2SAT 98
--- NOTE | 2024-04-11 19:56 | ED.VIS.FALL ---
HPI HPI - Fall History of Present Illness Chief Complaint: Fall PFSH PFSH Medical History (Updated 04/11/24 @ 19:35 by Madalyn Galvan) COVID-19 Dementia with behavioral problem Osteoarthritis Abnormal CT of the abdomen Anemia Acute kidney injury Chronic renal failure, stage 3a H/O normocytic normochromic anemia Somatic dysfunction of rib Neuropathic pain A-fib Fall Restless legs syndrome GERD (gastroesophageal reflux disease) BPH (benign prostatic hyperplasia) Hypertension Home Medications ?Medication ?Instructions ?Recorded ?Last Taken ?Type multivitamin 1 ea PO DAILY supplement 07/02/15 Unknown History finasteride 5 mg tablet 5 mg PO QDAY urinary retention 05/17/17 Unknown History amlodipine 2.5 mg tablet 2.5 mg PO DAILY blood pressure 12/31/22 Unknown History ferrous sulfate 325 mg (65 mg 325 mg PO DAILY suppliment 12/31/22 12/31/22 History iron) tablet (FeroSul) acetaminophen 325 mg tablet 650 mg (2 x 325 mg) PO Q6H PRN PRN 01/11/23 Unknown Rx Pain Score 1-10 #1 TAB donepezil 5 mg tablet 5 mg PO QHS memory #0 tabs 02/02/23 Unknown Rx pantoprazole 40 mg tablet,delayed 40 mg PO BID reflux #60 tabs 02/02/23 Unknown Rx release ondansetron 4 mg disintegrating 4 mg PO Q8H nausea 02/04/23 Unknown History tablet nitrofurantoin macrocrystal 100 mg 100 mg PO BID 5 days #10 caps 02/06/23 Unknown Rx capsule peg [id number] 1 1 drp EACH EYE Q1H PRN PRN DRY 02/06/23 Unknown Rx %-0.2 %-0.2 % eye drops EYES #0 mL (Artificial Tears ([id number])) ascorbate calcium (vitamin C) 500 1 g PO DAILY 02/09/23 Unknown History mg tablet calcium 600 mg (as 1 tab PO DAILY 02/09/23 Unknown History carbonate)-vitamin D3 10 mcg (400 unit) tablet doxazosin 1 mg tablet 2 mg PO QHS 02/09/23 Unknown History gabapentin 300 mg capsule 300 mg PO QHS 02/09/23 Unknown History hydroxyzine pamoate 50 mg capsule 50 mg PO QHS PRN 02/09/23 Unknown History (Vistaril) magnesium chloride 64 mg 128 mg PO DAILY 02/09/23 Unknown History (magnesium chloride) tablet melatonin 5 mg capsule 10 mg PO QHS sleep 02/09/23 Unknown History meloxicam 15 mg tablet 15 mg PO DAILY 02/09/23 Unknown History polyethylene glycol 3350 17 4 g PO DAILY 02/09/23 Unknown History gram/dose oral powder (Miralax) cyclobenzaprine 10 mg tablet 10 mg PO TID PRN Muscle Spasm #20 05/21/23 Unknown Rx TABLETS sertraline 50 mg tablet 50 mg PO DAILY 04/11/24 Unknown History Allergy/AdvReac Type Severity Reaction Status Date / Time aspirin Allergy Unknown Unknown Verified 04/11/24 16:58 Penicillins Allergy Rash Verified 04/11/24 16:58 Family History Mother Cirrhosis of liver Surgical History Unspecified nasal polyp S/P right rotator cuff repair H/O hernia repair Hx of cholecystectomy Social History household members: spouse housing: assisted living facility current occupational status: retired Smoking Status: Former smoker how long ago did patient quit smokin years ago EXAM Physical Exam Const Vital Signs: 04/11/24 16:58 04/11/24 19:34 04/11/24 19:34 Temperature 98 F 98.0 F Temperature Source Oral Pulse Rate 84 78 Respiratory Rate 16 18 Respiratory Effort Short of Breath Labored Respiratory Depth Shallow Respiratory Pattern Tachypnea Blood Pressure 141/74 H 171/68 H Blood Pressure Mean 96 102 Pulse Ox 98 98 98 Oxygen Delivery Method Room Air Room Air Room Air 04/11/24 20:56 04/11/24 21:00 Temperature 99.8 F H Temperature Source Pulse Rate 78 78 Respiratory Rate 20 H 20 H Respiratory Effort Respiratory Depth Respiratory Pattern Blood Pressure 161/54 H 161/54 H Blood Pressure Mean 89 89 Pulse Ox 98 98 Oxygen Delivery Method Room Air MDM MDM MDM Narrative Medical decision making narrative: HISTORY OF PRESENT ILLNESS: 88-year-old male presents after fall. No head trauma. Notes he fell trying to sit in a recliner. Notes that the left side of his head, right shoulder right hip he also has a wound to his right arm. Patient denies head trauma. REVIEW OF SYSTEMS: Pertinent positives: right shoulder pain, right hip pain, left-sided head pain Pertinent negatives: Loss of consciousness PHYSICAL EXAM: Nursing triage notes reviewed, Vital signs reviewed Primary Survey Airway: Intact Breathing: Bilateral breath sounds Circulation: Palpable bilateral femorals, Palpable bilateral radial, Palpable bilateral DP and Palpable bilateral PT Disability / Spine precautions GCS Score: Eye Openin Verbal Response: 5 Motor Response: 6 Secondary Survey Constitutional: Please see MDM Head: Atraumatic, Midface stable, NO jaw malocclusion, No Cephalohematoma, and No Lacerations noted Eye: Pupils equal round and reactive to light, Extraocular muscles intact and No periorbital ecchymosis or stepoff, no evidence of entrapment ENT: Oropharynx clear, no lacerations, no hemotympanum, no raccoon eyes or garcia sign Cervical spine / Neck: No cervical spine bony tenderness, crepitance, or stepoff deformity Trachea midline Lungs: Clear to auscultation, No asymmetric rise and No crepitus, no flail chest Cardiac: Regular rate and rhythm and No murmurs Abdomen: Soft, Nontender and No rebound Pelvis: Pelvis stable to compression : No evidence of genital injury Back: No midline bony tenderness to thoracic/lumbar/sacral spines Neuro: At baseline, intact strength and sensation in bilateral upper and lower extremities. 2+ patellar reflexes bilaterally. Intact 5/5 strength with ok sign (median), intact finger abduction (ulnar) intact wrist extension (radial n). Intact sensation in the radial, ulnar, and median nerve distributions. Intact sensation L1-S1 dermatomal distributions. Intact 5/5 strength in hip flexion (T12-L3). Knee extension (L2-L4). Ankle dorsiflexion (L4-L5). Ankle plantar flexion (S1). Great toe extension (L5). 2+ patellar and Achilles DTRs. Extremities: NO gross Deformities TTP over right shoulder but intact range of motion in flexion extension abduction internal/external rotation. TTP of right hip but intact range of motion flexion extension internal/external rotation. Skin: Skin tear noted to right forearm. Psych: Normal affect Nursing triage notes reviewed, Vital signs reviewed MEDICAL DECISION MAKING: Chief Complaint: Fall External records reviewed: Reviewed the patient's problem list, allergy Factors affecting care: none Social determinants of health: none History obtained from others: none Consults: none [facility] Narrative: Patient was initially hypertensive with a blood pressure 171/68 otherwise afebrile and nontoxic-appearing. Exam with TTP over right hip and right shoulder. Skin tear was cleaned and dressed I considered the following differential diagnosis: ICH, cervical spine injury, bony right shoulder, right hip injury ALL IMAGES (IF OBTAINED) HAVE BEEN PERSONALLY REVIEWED AND INTERPRETED BY MYSELF. X-rays of the patient's hip and shoulder were personally read reviewed myself showed no evidence of obvious injury Tertiary exam with no new injuries. Patient's is appropriate for discharge home. The patient and/or family, caregivers express understanding. The patient and/or family, caregivers agrees with the plan. Shared decision making: I will have a discussion with the patient and or visitors regarding risk/benefits of further testing or admission. They will be made aware of of the risk/benefits inherent in this decision they will be given the opportunity to voice understanding. Total critical care time today provided was at least 0 minutes. This excludes separately billable procedures. Critical care time (if documented) is secondary to the patient having high probability of clinically significant/life threatening deterioration in the patient's condition which required my urgent intervention. Impression: 1. Fall 2. Right shoulder contusion 3. Right hip contusion Dispo: Discharge home This note was generated with [employer] dictation software. It may contain incorrect words, spelling, and punctuation that were not noted in review of the chart prior to signing. Radiography Diagnostic Testing: Clinical Impression(s) from Imaging Studies Hip/Pelvis X-Ray 04/11/24 17:15 IMPRESSION: No evidence of displaced pelvic or hip fracture. Electronically Signed: Bunny Kline DO at 18:36 EST , Shoulder X-Ray 04/11/24 17:15 IMPRESSION: Degenerative changes. Electronically Signed: Bunny Kline DO at 17:46 EST , Discharge Plan Triage Chief Complaint: Fall ED Provider: Kev Vargas Dx/Rx/DC Orders Instructions: ED Mechanical Fall, ED Skin Tear (Skin Avulsion) Prescriptions: No Action finasteride 5 mg tablet 5 mg PO QDAY meloxicam 15 mg tablet 15 mg PO DAILY hydroxyzine pamoate [Vistaril] 50 mg capsule 50 mg PO QHS PRN calcium carbonate-vitamin D3 600 mg-10 mcg (400 unit) tablet 1 tab PO DAILY gabapentin 300 mg capsule 300 mg PO QHS polyethylene glycol 3350 [Miralax] 17 gram/dose powder 4 g PO DAILY ascorbate calcium (vitamin C) 500 mg tablet 1 g PO DAILY doxazosin 1 mg tablet 2 mg PO QHS magnesium chloride 64 mg magnesium tablet 128 mg PO DAILY multivitamin 1 EACH tablet 1 ea PO DAILY acetaminophen 325 mg Tablet 650 mg PO Q6H PRN PRN (Reason: Pain Score 1-10) Qty: 1 0RF pantoprazole 40 mg Tablet,Delayed Release (Dr/Ec) 40 mg PO BID Qty: 60 0RF donepezil 5 mg Tablet 5 mg PO QHS Qty: 0 0RF melatonin 5 mg capsule 10 mg PO QHS amlodipine 2.5 mg tablet 2.5 mg PO DAILY ferrous sulfate [FeroSul] 325 mg (65 mg iron) tablet 325 mg PO DAILY ondansetron 4 mg tablet,disintegrating 4 mg PO Q8H Artificial Tears([id number]) 1-0.2-0.2 % Drops 1 drp EACH EYE Q1H PRN PRN (Reason: DRY EYES) Qty: 0 0RF nitrofurantoin macrocrystal 100 mg capsule 100 mg PO BID 5 Days Qty: 10 0RF Rx Instructions: must administer with a meal/food cyclobenzaprine [cyclobenzaprine] 10 mg tablet 10 mg PO TID PRN (Reason: Muscle Spasm) Qty: 20 0RF sertraline 50 mg tablet 50 mg PO DAILY Primary Care Provider: Jaime Johnson Referrals: Jaime Johnson MD [Primary Care Provider] - Activity Restrictions/Additional Instructions: Thank you for trusting us with your care today! Please take Tylenol (2 pills, 650 mg), ibuprofen (2 pills, 400 mg) every 6 hours as needed for pain and fever control. Please return to the emergency department if your symptoms change or worsen. Please follow with your primary care physician for further outpatient evaluation and management. Print Language: Macedonian Disposition Disposition: Home, Self Care Discharge Date/Time: 04/11/24 21:26
--- OUTSIDE RECORDS SUMMARY | 2024-04-11 20:28 | XMS RPT_ITS | CCD ---
Author Organization [facility] Care Team Providers Care State Auditor Name Role Phone Jordan Johnson MD Primary Care Provider Jordan Johnson MD Primary Care Provider Maddi France DO Unavailable Jordan Johnson MD Unavailable MADDI FRANCE Attending Unavailable VASHTI MOTLEY Consulting Unavailable HOLLIS STUART II Admitting Unavailable JORDAN JOHNSON Primary Care Unavailab Edy Johnson RN Unavailable Nathaly Spivey RN Unavailable Jordan Johnson MD Primary Care Provider JORDAN JOHNSON Referring Unavailab JORDAN Chow Primary Care Unavailab JORDAN Chow Attending Unavailab JORDAN Chow Primary Care Unavailab JORDAN Chow Primary Care Unavailab FABBY Collins Referring Unavailable JORDAN JOHNSON Primary Care Unavailab maurice PODLOGFABBY CHRISTOPHER Attending Unavailable JORDAN JOHNSON Attending Unavailab JORDAN Chow Primary Care Unavailab JORDAN Chow Primary Care Unavailab JORDAN Chow Attending Unavailab le Allergies Allergy Classification Reported Allergen(s) Allergy Type Date of Onset Reaction(s) Facility (20 sources) Aspirin; Translations: [ASPIRIN] Drug Allergy 09-23-2010 GI Upset [facility] Work Phone: (6 sources) Penicillins; Translations: [PENICILLINS] Drug Allergy 10-28-2009 [facility] (20 sources) Penicillins Drug Allergy 10-28-2009 [facility] Medications Current Medications Medication Drug Class(es) Dates Sig (Normalized) Sig (Original) acetaminophen 325 mg oral capsule (20 sources) Start: 04-01-2023 End: 04-02-2023 take 2 capsules by mouth every twelve hours as needed acetaminophen 325 mg cap Take 2 capsules by mouth two times a day as needed for pain. 180 capsule 3 04/02/2023 Active End: 04-01-2023 acetaminophen 325 mg cap Lazaro e 325 mg by mouth as needed. 0 04/01/2023 Discontinued Comment on above: Take 325 mg by mouth as needed. Take 2 capsules by m outh two times a day. Take 2 capsules by m outh two times a day as needed for pain. acetaminophen 325 mg / HYDROcodone bitartrate 5 mg oral tablet (3 sources) Opioid Agonist Start: 02-04-20 End: 02-18-20 22 take 1 tablet by mouth every eight hours as needed for pain HYDROcodone-acetami nophen (NORCO) 5-325 mg per tablet Indications: Closed displaced fracture of right clavicle, unspecified part of clavicle, initial encounter Take 1 tablet by mouth every 8 hours as needed for pain for up to 7 days. 21 tablet 0 02/10/2022 02/17/2022 Active Comment on above: Take 1 tablet by abigail th every 8 hours as needed for pain for up to 7 days. amLODIPine 2.5 mg oral tablet (20 sources) Dihydropyridine Calcium Channel Deondre Start: 11-05-19 23 End: 02-29-20 23 take 1 tablet by mouth once daily amLODIPine (NORVASC) 2.5 mg tablet Take 1 tablet by mouth once daily. 90 tablet 1 11/30/2022 Active Start: 04-22-2022 End: 09-07-2022 take 1 tablet by mouth once daily amLODIPine (NORVASC) 2.5 mg tablet Take 1 tablet by mouth once daily. 30 tablet 1 09/07/2022 Active Comment on above: Take 1 tablet by abigail th once daily. cyclobenzaprine hydrochloride 5 mg oral tablet (14 sources) Muscle Relaxant Start: 06-16-19 24 take 1 tablet by mouth twice daily as needed for muscle spasms cyclobenzaprine (FLEXERIL) 5 mg tablet Indications: Acute left-sided low back pain without sciatica Take 1 tablet by mouth two times a day as needed for muscle spasm. 60 tablet 06/16/2023 Active Comment on above: Take 1 tablet by abigail th two times a day as needed for muscle spasm. donepezil hydrochloride 5 mg oral tablet (20 sources) Start: 02-12-20 End: 05-12-20 take 1 tablet by mouth once daily at bedtime donepezil (ARICEPT) 5 mg tablet Take 1 tablet by mouth daily at bedtime. 30 tablet 2 02/11/2023 Active Comment on above: Take 5 mg by mouth d aily at bedtime. Take 1 tablet by abigail th daily at bedtime. doxycycline hyclate 100 mg oral capsule (2 sources) Tetracycline-clas s Drug Start: 03-03-20 End: 03-08-20 take 1 capsule by mouth twice daily doxycycline hyclate (VIBRAMYCIN) 100 mg capsule Take 1 capsule by mouth twice daily for 5 days. 10 capsule 0 03/03/2023 03/08/2023 Active Comment on above: Take 1 capsule by mo [facility] twice daily for 5 days. finasteride 5 mg oral tablet (20 sources) 5-alpha Reductase Inhibitor Start: 05-14-20 End: 06-21-19 take 1 tablet by mouth once daily finasteride (PROSCAR) 5 mg tablet Take 1 tablet by mouth once daily. 90 tablet 3 06/22/2022 Active Comment on above: Take 1 tablet by abigail once daily. melatonin 10 mg oral tablet (20 sources) Start: 04-01-20 End: 09-28-19 take 1 tablet by mouth once daily at bedtime melatonin 10 mg tab Take 1 tablet by mouth daily at bedtime. 90 tablet 1 04/01/2023 Active End: 04-01-2023 take 5 mg by mouth once daily at bedtime melatonin 10 mg tab Take 5 mg by mouth daily at bedtime. 04/01/2023 Discontinued Comment on above: Take 5 mg by mouth d aily at bedtime. Take 1 tablet by abigail th daily at bedtime. methylPREDNISolone (2 sources) Corticosteroid Start: 2022 End: 2022 methylPREDNISolone (MEDROL, BRANDON,) 4 mg Dose-Pack As Instructed per package 21 tablet 0 03/03/2023 03/08/2023 Active Comment on above: As Instructed per levar shrestha Multivitamin capsule (20 sources) take 1 capsule by mouth once daily Multivitamin capsule Take 1 capsule by mouth once daily. Active take 1 capsule by mouth once willy ly Multivitamin capsule Take 1 capsule by mouth once daily. 0 Active Comment on above: Take 1 capsule by mo [facility] once daily. mupirocin 0.02 mg/mg topical ointment (2 sources) RNA Synthetase Inhibitor Antibacterial Start: 10-01-19 End: 10-11-19 mupirocin (BACTROBAN) 2 % ointment Apply 1 application to affected area three times daily for 10 days. 30 g 0 09/30/2022 10/10/2022 Active Comment on above: Apply 1 application to affected area three times daily for 10 days. ondansetron 4 mg disintegrating oral tablet (20 sources) Serotonin-3 Receptor Antagonist Start: 01-30-20 take 1 tablet by mouth every eight hours as needed for nausea and nausea ondansetron orally disintegrating (ZOFRAN ODT) 4 mg disintegrating tablet Indications: Nausea Take 1 tablet by mouth every 8 hours as needed for nausea/vomiting. 10 tablet 01/29/2023 Active Comment on above: [facility] for [facility]/vomiting. pantoprazole 40 mg extended release oral tablet (20 sources) Proton Pump Inhibitor take 40 mg by mouth twice daily pantoprazole sodium (PANTOPRAZOLE ORAL) Take 40 mg by mouth twice daily. Active Comment on above: Take 40 mg by mouth twice daily. promethazine hydrochloride 25 mg oral tablet (3 sources) Phenothiazine Start: 12-29-19 End: 01-08-20 take 1 tablet by mouth every eight hours as needed promethazine (PHENERGAN) 25 mg tablet Take 1 tablet by mouth every 8 hours as needed for nausea/vomiting for up to 10 days. 20 tablet 0 12/28/2022 01/07/2023 Active Comment on above: Take 1 tablet by abigail every 8 hours as needed for nausea/vomiting for up to 10 days. sertraline 50 mg oral tablet (20 sources) Serotonin Reuptake Inhibitor Start: 02-12-20 take 1 tablet by mouth once daily sertraline (ZOLOFT) 50 mg tablet Take 1 tablet by mouth once daily. 30 tablet 2 02/11/2023 Active Comment on above: Take 1 tablet by abigail th once daily. Completed/Discontinued Medications Medication Drug Class(es) Dates Sig (Normalized) Sig (Original) aspirin 81 mg delayed release oral tablet (20 sources) Platelet Aggregation Inhibitor, Nonsteroidal Anti-inflammatory Drug End: 07-14-2022 take 1 tablet by mouth once daily aspirin, enteric coated (ASPIRIN, ENTERIC COATED) 81 mg EC tablet Take 81 mg by mouth once daily. Pt reported low dose 07/14/2022 Discontinued (Discontinued by Patient) Comment on above: Take 81 mg by mouth once daily. Pt reported low dose carvedilol 3.125 mg oral tablet (14 sources) alpha-Adrenergic Deondre, beta-Adrenergic Deondre Start: 01-29-2023 End: 02-28-2023 take 1 tablet by mouth twice daily at mealtime carvedilol (COREG) 3.125 mg tablet Take 1 tablet by mouth twice daily with meals. 60 tablet 01/29/2023 02/11/2023 Discontinued Start: 12-28-2022 End: 01-29-2023 take 1 tablet by mouth twice daily at mealtime carvedilol (COREG) 6.25 mg tablet Take 1 tablet by mouth twice daily with meals. 60 tablet 0 12/28/2022 01/29/2023 Discontinued Comment on above: Take 1 tablet by abigail twice daily with meals. COMPOUNDED PRESCRIPTION (17 sources) End: 04-15-2022 COMPOUNDED PRESCRIPTION [place] dream cream topical for pain Histamine dihydrichloride 0.025% 04/15/2022 Discontinued End: 04-15-2022 COMPOUNDED PRESCRIPTION [place] dream cream topical for pain Histamine dihydrichloride 0.025% 0 04/15/2022 Discontinued COMPOUNDED PRESC RIPTION Citizen [place] dream cream topical for pain Histamine dihydrichloride 0.025% 0 Active Comment on above: [place] dream cre am topical for pain Histamine dihydrichloride 0.025% EMOLLIENT BASE (CREAM BASE TOPICAL) (1 source) End: 06-12-19 EMOLLIENT BASE (CREAM BASE TOPICAL) Apply to affected area as needed. Citizen [place] Dream cream 06/12/2021 Discontinued ferrous sulfate 325 mg oral tablet (20 sources) Start: 10-16-19 End: 02-12-20 take 1 tablet by mouth once daily at breakfast ferrous sulfate 325 mg (65 mg iron) tablet Indications: Iron deficiency anemia, unspecified iron deficiency anemia type Take 1 tablet by mouth daily with breakfast. 90 tablet 1 10/15/2022 02/11/2023 Discontinued Start: 12-11-2019 End: 10-13-2021 take 1 tablet by mouth once daily at breakfast ferrous sulfate 325 mg (65 mg iron) tablet Indications: Iron deficiency anemia, unspecified iron deficiency anemia type Take 1 tablet by mouth daily with breakfast. 90 tablet 3 10/14/2021 Active Comment on above: Take 1 tablet by abigail th daily with breakfast. furosemide 40 mg oral tablet (20 sources) Loop Diuretic Start: End: take 1 tablet by mouth once daily furosemide (LASIX) 40 mg tablet Indications: Bilateral lower extremity edema Take 1 tablet by mouth once daily. 90 tablet 1 11/09/2022 02/04/2023 Discontinued Start: 04-15-2022 End: 06-13-2022 take 1 tablet by mouth once daily furosemide (LASIX) 40 mg tablet Indications: Bilateral lower extremity edema Take 1 tablet by mouth once daily. 90 tablet 1 05/14/2022 Active Comment on above: Take 1 tablet by abigail th once daily. gabapentin 300 mg oral capsule (20 sources) Anti-epileptic Agent Start: 05-27-2021 End: 07-08-2023 gabapentin (NEURONTIN) 300 mg capsule Indications: RLS (restless legs syndrome) Take one capsule at bedtime 90 capsule 0 11/09/2022 11/09/2022 Discontinued Start: 07-08-2020 End: 12-10-2020 gabapentin (NEURONTIN) 300 m g capsule Indications: RLS (restless legs syndrome) TAKE 3 CAPSULES EVERY DAY AT BEDTIME 270 capsule 07/08/2020 12/10/2020 Discontinued Comment on above: Take one capsule at bedtime hydrOXYzine pamoate 50 mg oral capsule (20 sources) Antihistamine Start: 10-22-19 End: 02-05-20 take 1 capsule by mouth every twenty-four hours as needed hydrOXYzine pamoate (VISTARIL) 50 mg capsule Take 1 capsule by mouth at bedtime as needed (insomnia). 90 capsule 1 10/21/2020 02/04/2023 Discontinued Start: 10-20-2019 End: 10-19-2020 take 1 capsule by mouth every twenty-four hours as needed hydrOXYzine pamoate (VISTARIL) 50 mg capsule Take 1 capsule by mouth at bedtime as needed (insomnia). 90 capsule 1 10/20/2019 10/19/2020 Discontinued End: 04-01-2023 take 1 tablet by mouth every eight hours as needed hydrOXYzine HCl (ATARAX) 50 mg tablet Take 50 mg by mouth three times a day as needed. At HS prn for sleep the daughter thinks. 0 04/01/2023 Discontinued Comment on above: Take 1 capsule by mo [facility] at bedtime as needed (insomnia). Take 50 mg by mouth three times a day as needed. At HS prn for sleep the daughter thinks. lisinopril 40 mg oral tablet (20 sources) Angiotensin Converting Enzyme Inhibitor Start: 2 End: 3 take 1 tablet by mouth once daily lisinopril (ZESTRIL) 40 mg tablet Indications: Essential hypertension Take 1 tablet by mouth once daily. 90 tablet 1 09/14/2022 01/29/2023 Discontinued (Course of therapy completed) Start: 04-29-2020 End: 08-25-2022 take 0.5 tablet by mouth once daily lisinopril (ZESTRIL, PRINIVIL) 40 mg tablet Indications: Essential hypertension Take 0.5 tablets by mouth once daily. 45 tablet 5 02/26/2022 08/25/2022 Active Comment on above: Take 0.5 tablets by mouth once daily. Take 1 tablet by abigail once daily. Take 40 mg by mouth once daily. meloxicam 15 mg oral tablet (18 sources) Nonsteroidal Anti-inflammatory Drug Start: 05-25-20 take 1 tablet by mouth once daily meloxicam (MOBIC) 15 mg tablet Take 15 mg by mouth once daily. 0 05/25/2022 Active Comment on above: Take 15 mg by mouth once daily. nitrofurantoin, macrocrystals 25 mg / nitrofurantoin, monohydrate 75 mg oral capsule (6 sources) Nitrofuran Antibacterial End: 04-01-20 take 1 capsule by mouth twice daily nitrofurantoin monohydrate and macrocrystal (MACROBID) 100 mg capsule Take 100 mg by mouth twice daily. X 5 days 0 04/01/2023 Discontinued Comment on above: Take 100 mg by mouth twice daily. X 5 days omeprazole 20 mg delayed release oral capsule (20 sources) Proton Pump Inhibitor Start: 02-25-20 End: 02-12-20 23 take 1 capsule by mouth twice daily omeprazole (PRILOSEC) 20 mg capsule Take 1 capsule by mouth twice daily. 180 capsule 1 11/09/2022 02/11/2023 Discontinued Start: 07-17-20[address] [facility] twice daily omeprazole (PRILOSEC) 20 mg capsule Take 1 capsule by mouth twice daily. 180 capsule 1 07/17/2021 Active Start: 10-23-2019 End: 10-12-2020 take 1 capsule by mouth twice daily omeprazole (PRILOSEC) 20 mg capsule Take 1 capsule by mouth twice daily. 180 capsule 3 10/23/2019 10/12/2020 Discontinued Comment on above: Take [address] [facility] twice daily. perflutren lipid microspheres 1.3 mL in NaCl (PF) 0.9% 10 mL injection (DEFINITY) (20 sources) Start: 2 End: 4 perflutren lipid microspheres 1.3 mL in NaCl (PF) 0.9% 10 mL injection (DEFINITY) polyethylene glycol 3350 07056 mg powder for oral solution (17 sources) Osmotic Laxative Start: 1 End: 2 take 17 g by mouth once daily POLYETHYLENE GLYCOL 3350 17 gram/dose ORAL powder 17 g once daily. 12/10/2020 04/15/2022 Discontinued Comment on above: 17 g once daily. 125 ml sodium chloride 9 mg/ml prefilled syringe (20 sources) Start: 2 End: 4 sodium chloride 0.9 % (flush) 10 mL (BD POSIFLUSH) terazosin 5 mg oral capsule (20 sources) alpha-Adrenergic Deondre Start: 3 End: 3 take 1 capsule by mouth once daily at bedtime terazosin (HYTRIN) 5 mg capsule Indications: Essential hypertension TAKE 1 CAPSULE BY MOUTH DAILY AT BEDTIME. 90 capsule 1 11/25/2022 02/11/2023 Discontinued Start: 02-24-2022 End: 07-17-2022 take 1 capsule by mouth once daily at bedtime terazosin (HYTRIN) 5 mg capsule Indications: Essential hypertension Take 1 capsule by mouth daily at bedtime. 90 capsule 1 02/24/2022 07/17/2022 Discontinued Start: 07-17-2021 take 1 capsule by mo uth once daily at bedtime terazosin (HYTRIN) 5 mg capsule Indications: Essential hypertension Take 1 capsule by mouth daily at bedtime. 90 capsule 1 07/17/2021 Active Start: 10-23-2019 End: 10-12-2020 take 1 capsule by mouth once daily at bedtime terazosin (HYTRIN) 5 mg capsule Indications: Essential hypertension Take 1 capsule by mouth daily at bedtime. 90 capsule 3 10/23/2019 10/12/2020 Discontinued Comment on above: Take 1 capsule by mo ut[facility] daily at bedtime. Problems Active Problems Problem Classification Problem Date Documented Date Episodic/Chronic Adjustment disorders (3 sources) Grief finding; Translations: [Adjustment disorder with depressed mood] Onset: 07-05-2023 04-01-2023 Chronic Cardiac dysrhythmias (3 sources) Bradycardia; Translations: [Bradycardia, unspecified] 01-29-2023 Episodic Chronic kidney disease (20 sources) Chronic kidney disease stage 3; Translations: [CKD (chronic kidney disease), stage III] 12-07-2017 Chronic Chronic kidney disease (1 source) Chronic kidney disease; Translations: [Stage 3a chronic kidney disease (HCC)] Onset: 12-07-2017 Conduction disorders (2 sources) Mobitz type I incomplete atrioventricular block; Translations: [Atrioventricular block, second degree] 02-05-2023 Chronic Deficiency and other anemia (20 sources) Iron deficiency anemia; Translations: [Iron deficiency anemia, unspecified] 06-20-2018 Episodic Deficiency and other anemia (1 source) Anemia; Translations: [Anemia, unspecified] Episodic Delirium, dementia, and amnestic and other cognitive disorders (20 sources) Senile asthenia; Translations: [Age-related physical debility] Onset: 02-11-2023 Chronic E Codes: Fall (6 sources) Fall in home; Translations: [Unspecified fall, initial encounter] Onset: 12-24-2022 Episodic Esophageal disorders (20 sources) Gastroesophageal reflux disease; Translations: [Gastro-esophageal reflux disease without esophagitis] 03-27-2016 Chronic Essential hypertension (20 sources) Essential hypertension; Translations: [Essential (primary) hypertension] Onset: 06-11-2014 Resolved: 06-09-2017 06-02-2021 Chronic Fluid and electrolyte disorders (2 sources) Hyponatremia; Translations: [Hypo-osmolality and hyponatremia] Episodic Fracture of upper limb (2 sources) Closed fracture of clavicle; Translations: [Fracture of unspecified part of right clavicle, initial encounter for closed fracture] Episodic Gastroduodenal ulcer (except hemorrhage) (20 sources) Gastric ulcer; Translations: [Gastric ulcer, unspecified as acute or chronic, without hemorrhage or perforation] Onset: 02-11-2023 02-11-2023 Chronic Gastroduodenal ulcer (except hemorrhage) (1 source) Acute gastric ulcer without hemorrhage AND without perforation; Translations: [Acute gastric ulcer without hemorrhage or perforation] 02-13-2023 Episodic Genitourinary symptoms and ill-defined conditions (1 source) Increased frequency of urination; Translations: [Frequency of micturition] 02-04-2023 Episodic Hyperplasia of prostate (20 sources) Benign prostatic hypertrophy with outflow obstruction; Translations: [Benign prostatic hyperplasia with lower urinary tract symptoms] Onset: 09-19-2015 12-10-2020 Chronic Miscellaneous mental health disorders (2 sources) Chronic insomnia; Translations: [Psychophysiologic insomnia] Onset: 04-01-2023 04-01-2023 Chronic Mood disorders (20 sources) Depressive disorder; Translations: [Depression, unspecified depression type] Onset: 04-01-2023 02-13-2023 Chronic Nausea and vomiting (2 sources) Nausea; Translations: [Nausea] 01-29-2023 Episodic Nonspecific chest pain (2 sources) Pain of sternum; Translations: [Other chest pain] 12-24-2022 Episodic Osteoarthritis (20 sources) Osteoarthritis; Translations: [Unspecified osteoarthritis, unspecified site] Onset: 03-27-2016 03-27-2016 Chronic Other aftercare (1 source) Post-discharge follow-up; Translations: [Encounter for follow-up examination after completed treatment for conditions other than malignant neoplasm] 02-13-2023 Episodic Other circulatory disease (1 source) Ecchymosis; Translations: [Hemorrhage, not elsewhere classified] Episodic Other circulatory disease (2 sources) Low blood pressure; Translations: [Other hypotension] 02-05-2023 Episodic Other connective tissue disease (2 sources) Pain of right upper arm; Translations: [Pain in right upper arm] Episodic Other ear and sense organ disorders (1 source) Impacted cerumen of bilateral ears; Translations: [Impacted cerumen, bilateral] Episodic Other hereditary and degenerative nervous system conditions (20 sources) Restless legs; Translations: [Restless legs syndrome] Onset: 09-20-2014 Chronic Other hereditary and degenerative nervous system conditions (20 sources) Impaired cognition; Translations: [Mild cognitive impairment, so stated] Onset: 09-19-2015 09-19-2015 Chronic Other injuries and conditions due to external causes (1 source) Abrasion; Translations: [Other injury of unspecified body region, initial encounter] Episodic Other injuries and conditions due to external causes (1 source) Multiple lacerations; Translations: [Other injury of unspecified body region, initial encounter] Episodic Other injuries and conditions due to external causes (2 sources) At high risk for fall; Translations: [History of falling] Episodic Other liver diseases (2 sources) Alkaline phosphatase raised; Translations: [Abnormal levels of other serum enzymes] Episodic Other nutritional; endocrine; and metabolic disorders (2 sources) Decrease in appetite; Translations: [Anorexia] 02-01-2023 Episodic Other screening for suspected conditions (not mental disorders or infectious disease) (1 source) Abnormal findings on diagnostic imaging of other specified body structures; Translations: [Abnormal findings on imaging test] Onset: 12-24-2022 Chronic Residual codes; unclassified (5 sources) Bilateral lower limb edema; Translations: [Localized edema] Episodic Septicemia (except in labor) (1 source) Sepsis; Translations: [Sepsis, unspecified organism] 02-05-2023 Episodic Spondylosis; intervertebral disc disorders; other back problems (2 sources) Acute low back pain; Translations: [Acute left-sided low back pain without sciatica] 05-19-2023 Episodic Unclassified (1 source) Acute left-sided low back pain without sciatica; Translations: [Acute left-sided low back pain without sciatica] Onset: 05-25-2023 Urinary tract infections (2 sources) Acute cystitis; Translations: [Acute cystitis without hematuria] 02-05-2023 Episodic Past or Other Problems Problem Classification Problem Date Documented Date Episodic/Chronic Abdominal hernia (20 sources) Recurrent right inguinal hernia; Translations: [Unilateral inguinal hernia, without obstruction or gangrene, recurrent] Onset: 4 12-25-2013 Episodic Abdominal pain (20 sources) Epigastric pain; Translations: [Epigastric pain] Onset: 0 10-28-2009 Episodic Acute cerebrovascular disease (20 sources) Intraparenchymal hemorrhage of brain; Translations: [Nontraumatic intracerebral hemorrhage, unspecified] Onset: 3 Resolved: 3 12-24-2022 Chronic Coagulation and hemorrhagic disorders (20 sources) Non-thrombocytopenic purpura; Translations: [Other nonthrombocytopenic purpura] Onset: 3 Resolved: 3 Episodic Other circulatory disease (20 sources) Pulmonary congestion ; Translations: [Other specified symptoms and signs involving the circulatory and respiratory systems] Onset: 3 03-03-2023 Episodic Other connective tissue disease (20 sources) Rotator cuff tear arthropathy; Translations: [Unspecified rotator cuff tear or rupture of unspecified shoulder, not specified as traumatic] Onset: 3 06-21-2012 Episodic Other connective tissue disease (13 sources) Unspecified rotator cuff tear or rupture of unspecified shoulder, not specified as traumatic; Translations: [Rotator cuff (capsule) sprain] Onset: 1 Resolved: 2 06-23-2011 Episodic Other injuries and conditions due to external causes (1 source) History of falling; Translations: [At high risk for falls] Onset: 3 Episodic Other lower respiratory disease (20 sources) Cough; Translations: [Subacute cough] Onset: 3 03-03-2023 Episodic Other lower respiratory disease (20 sources) Wheezing; Translations: [Wheezing] Onset: 3 03-03-2023 Episodic Other non-traumatic joint disorders (20 sources) Shoulder pain; Translations: [Pain in right shoulder] Onset: 0 06-08-2019 Episodic Other non-traumatic joint disorders (20 sources) Pain in right shoulder; Translations: [Pain in joint, shoulder region] Onset: 0 06-08-2019 Episodic Other non-traumatic joint disorders (20 sources) Pain in left shoulder; Translations: [Pain in joint, shoulder region] Onset: 2 05-14-2022 Episodic Other screening for suspected conditions (not mental disorders or infectious disease) (20 sources) Hormone level - finding; Translations: [Other specified abnormal findings of blood chemistry] Onset: 6 Resolved: 2 Episodic Residual codes; unclassified (20 sources) Delirium; Translations: [Disorientation, unspecified] Onset: 3 12-26-2022 Episodic Sprains and strains (13 sources) Sprain of shoulder rotator cuff; Translations: [Sprain of unspecified rotator cuff capsule, initial encounter] Onset: 2 Resolved: 3 06-21-2012 Episodic Superficial injury; contusion (2 sources) Right knee abrasion; Translations: [Abrasion, right knee, initial encounter] Onset: 3 Episodic Results Test Name Value Interpretation Reference Range Facility [facility] 10-29-2023 [facility] -------- ATIF COLÓN ([id number]) 1935 M Date Time Provider Department 10/29/23 JORDAN JOHNSON [facility] During your visit today, we recorded the following information about you: Vickie Hooks, KATARZYNA 10/29/2023 11:39 AM Signed Jossie with Jeanna Duff's office called in and reports provider had wanted Pt to get labs and urine tests done. Pt told them he just had them done here. I faxed over the [facility] he had done her to # [phone]. I told her he had some other fairly recent labs but they were done at [facility], she said she would send a release request to them. Allergies As of Date: 10/29/2023 Noted Allergy Reaction ASPIRIN 09/23/2010 8 - GI Upset PENICILLINS 10/28/2009 2 - Rash Date Reviewed: 10/25/2023 Reviewed by: Cameron Vitale LPN - Fully Assessed Prescriptions as of 10/29/2023 - cyclobenzaprine (FLEXERIL) 5 mg tablet Take 1 tablet by mouth two times a day as needed for muscle spasm. - acetaminophen 325 mg cap Take 2 capsules by mouth two times a day as needed for pain. - melatonin 10 mg tab Take 1 tablet by mouth daily at bedtime. - sertraline (ZOLOFT) 50 mg tablet Take 1 tablet by mouth once daily. - donepezil (ARICEPT) 5 mg tablet Take 1 tablet by mouth daily at bedtime. - pantoprazole sodium (PANTOPRAZOLE ORAL) Take 40 mg by mouth twice daily. - Multivitamin capsule Take 1 capsule by mouth once daily. - ondansetron orally disintegrating (ZOFRAN ODT) 4 mg disintegrating tablet Take 1 tablet by mouth every 8 hours as needed for nausea/vomiting. - amLODIPine (NORVASC) 2.5 mg tablet Take 1 tablet by mouth once daily. - finasteride (PROSCAR) 5 mg tablet Take 1 tablet by mouth once daily. Problem List As Of Date 10/29/2023 Noted Resolved Abdominal Pain, Epigastric [R10.13] 10/28/2009 Rotator cuff tear [M75.100] 09/30/2010 06/23/2011 Rotator cuff (capsule) sprain [S43.429A] 03/16/2012 06/21/2012 Rotator cuff tear arthropathy [M75.100, M12.819]06/21/2012 Recurrent right inguinal hernia [K40.91] 12/25/2013 Essential hypertension [I10] 06/11/2014 RLS (restless legs syndrome) [G25.81] 09/20/2014 Mild cognitive impairment [G31.84] 09/19/2015 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/19/2015 Elevated prostate specific antigen (PSA) [R97.2*11/19/2015 06/12/2021 BPH (benign prostatic hyperplasia) [N40.0] GERD (gastroesophageal reflux disease) [K21.9] Osteoarthritis [M19.90] Hypertension [I10] 06/09/2017 Elevated PSA [R97.20] 06/09/2017 CKD (chronic kidney disease), stage III (HCC) [* Iron deficiency anemia [D50.9] Acute pain of right shoulder [M25.511] 06/08/2019 Acute pain of left shoulder [M25.512] 05/14/2022 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 CNOVon 10-25-2023 CNOV Office Visit (RAJEEVWS ) -------- ATIF COLÓN ([id number]) 1935 M Date Time Provider Department 10/25/23 1:40 PM FABBY MOORE During your visit today, we recorded the following information about you: Pulse Respiration Blood pressure Weight 59/minute 16/minute 138/70 81.4 kg Fabby Moore APRN.CNP 10/25/2023 3:59 PM Signed 10/25/2023 Patient presents with: F/U 3 Month MMSE: Needs letter completed SUBJECTIVE: This is a 88 year old, accompanied by daughter, that is here today for Above Complaints. Since last office visit has been in good health without ER visits or hospitalizations. No recent falls Needing cognitive screening and paperwork for insurance completed. Patient with diagnosis of Alzheimer documented on his 01/15/2023 discharge paperwork from [facility]. Started on Aricept during hospitalization although he was originally placed on Aricept on 09/19/2015 for mild cognitive impairment, however does not appear he took it long based on documentation I see in EPIC. He adits he can have difficulty recalling names otherwise he feels his clemencia is good. At some point he was told not to drive anymore so he doesn't. MMSE today 29/30 Depression: taking Zoloft as prescribed without side effects. Denies feeling depressed, SI, HI or insomnia. Competed some grief counseling after passed last year, Currently not in counseling. PHQ9: 2 CKD: Avoids NSAID products and eat low salt diet HTN: Patient is compliant with meds Yes Monitors bp at home: occasionally . Denies side effects: Yes. Chest pain: No. Dyspnea: No. Edema: No. Palpitations: No. Syncope: No. Headache: No. Dizziness: occasionally . BPH: Taking Proscar as prescribed without side effects. Admits to nocturia x 2. Denies weal stream, straining to urinate, dysuria, or hematuria GERD: taking pantoprazole as prescribed without side effects. Controls symptos PAST MEDICAL HISTORY Diagnosis Date Abdominal pain, epigastric BPH (benign prostatic hyperplasia) CKD (chronic kidney disease), stage III ([facility]) Dr. Childress DDD (degenerative disc disease), lumbar Depression Elevated PSA Fatty liver Gastric ulcer GERD (gastroesophageal reflux disease) Hypertension Hyponatremia Iron deficiency anemia MGUS (monoclonal gammopathy of unknown significance) Dr. Angulo-based off of monoclonal kappa chains. Nephrology did not think he would be a good canidate for treatment or workup for multiple myeloma. Osteoarthritis RLS (restless legs syndrome) Rotator cuff tear arthropathy Seen previously by Dr. Palomino Senile dementia ([facility]) ALLERGIES Aspirin and Penicillins MEDICATIONS Current Outpatient Medications Medication Sig cyclobenzaprine (FLEXERIL) 5 mg tablet Take 1 tablet by mouth two times a day as needed for muscle spasm. acetaminophen 325 mg cap Take 2 capsules by mouth two times a day as needed for pain. melatonin 10 mg tab Take 1 tablet by mouth daily at bedtime. sertraline (ZOLOFT) 50 mg tablet Take 1 tablet by mouth once daily. donepezil (ARICEPT) 5 mg tablet Take 1 tablet by mouth daily at bedtime. pantoprazole sodium (PANTOPRAZOLE ORAL) Take 40 mg by mouth twice daily. Multivitamin capsule Take 1 capsule by mouth once daily. ondansetron orally disintegrating (ZOFRAN ODT) 4 mg disintegrating tablet Take 1 tablet by mouth every 8 hours as needed for nausea/vomiting. amLODIPine (NORVASC) 2.5 mg tablet Take 1 tablet by mouth once daily. finasteride (PROSCAR) 5 mg tablet Take 1 tablet by mouth once daily. No current facility-administered medications for this visit. Medications and allergies reviewed by this provider. SOCIAL HISTORY Social History Tobacco Use Smoking status: Former Packs/day: .2 Types: Cigarettes Quit date: 06/07/1994 Years since quittin.4 Smokeless tobacco: Never Tobacco comments: quit 10 years ago Substance Use Topics Alcohol use: No Drug use: No REVIEW OF SYSTEMS All other reviewed and negative other than HPI. OBJECTIVE: BP 138/70 Pulse (!) 59 Resp 16 Wt 81.4 kg (179 lb 6.4 oz) SpO2 96% BMI 29.85 kg/m? . Vital signs reviewed by this provider. APPEARANCE Well appearing, alert, in no acute distress, well-hydrated, well nourished. EYES conjunctiva and sclera normal. HEART RRR with normal S1 and S2, no murmurs, no gallops, no JVD appreciated LUNG clear to auscultation. No wheezes, rhonchi or rales EXTREMITIES Extremities normal, No deformities, No skin discoloration, and No edema SKIN Skin color, texture, turgor normal, no suspicious rashes or lesions to exposed skin RSV Vaccine(1 - 1-dose 60+ series) Never done Shingrix Vaccine(2 of 3) due on 08/02/2009 Advance Directive Discussion Never done Covid-19 Vaccine(2022- season) due on 07/24/2023 Diabetes Screening due on 04/01/2026 DTaP,Tdap,Td Vaccine(3 - Td or Tdap) due on 09/30/2032 In (more content not included)... [facility] metabolic 2000 panelon 10-25-2023 Albumin [Mass/Vol] 3.9 g/dL 3.9 - 4.9 g/dL [facility] ALP [Catalytic activity/Vol] 141 U/L High 38 - 113 U/L [facility] ALT [Catalytic activity/Vol] 26 U/L 10 - 54 U/L [facility] Anion gap [Moles/Vol] 10 mmol/L 9 - 18 mmol/L [facility] AST [Catalytic activity/Vol] 32 U/L 14 - 40 U/L [facility] Bilirubin [Mass/Vol] 0.2 mg/dL 0.2 - 1.3 mg/dL [facility] Calcium [Mass/Vol] 9.4 mg/dL 8.5 - 10. 2 mg/dL [facility] Chloride [Moles/Vol] 101 mmol/L 97 - 105 mmol/L [facility] CO2 [Moles/Vol] 24 mmol/L 22 - 30 mmol/L [facility] Creatinine [Mass/Vol] 1.35 mg/dL High 0.73 - 1.22 mg/dL [facility] GFR/1.73 sq M.predicted among non-blacks MDRD (S/P/Bld) [Vol rate/Area] 51 mL/min/{1.73_m2} Low - PINF [facility] Comment on above: Estimated Glomerular Filtration Rate (eGFR) is calculated using the 2020 CKD-EPI creatinine equation. This equation utilizes serum creatinine, sex, and age as parameters. The creatinine assay has traceable calibration to isotope dilution-mass spectrometry. Refer to KDIGO guidelines for clinical interpretation. In patients with unstable renal function, e.g. those with acute kidney injury, the eGFR may not accurately reflect actual GFR. Glucose [Mass/Vol] 97 mg/dL 74 - 99 mg/dL [facility] Comment on above: The [place] Diab[employer] s Association (ADA) provides guidance for cutoff values for fasting glucose and random glucose. The ADA defines fasting as no caloric intake for at least 8 hours. Fasting plasma glucose results between 100 to 125 mg/dL indicate increased risk for diabetes (prediabetes). Fasting plasma glucose results greater than or equal to 126 mg/dL meet the criteria for diagnosis of diabetes. In the absence of unequivocal hyperglycemia, results should be confirmed by repeat testing. In a patient with classic symptoms of hyperglycemia or hyperglycemic crisis, random plasma glucose results greater than or equal to 200 mg/dL meet the criteria for diagnosis of diabetes. Reference: Standards of Medical Care in Diabetes 2016, [place] Diabetes Association. Diabetes Care. 2016.39(Suppl 1). Interpretation and review of laboratory results Abnormal [facility] Potassium [Moles/Vol] 5.1 mmol/L 3.7 - 5.1 mmol/L [facility] Protein [Mass/Vol] 7.2 g/dL 6.3 - 8.0 g/dL [facility] Sodium [Moles/Vol] 135 mmol/L Low 136 - 144 mmol/L [facility] Urea nitrogen [Mass/Vol] 29 mg/dL High 9 - 24 mg/dL [facility] Albumin [Mass/Vol] 3.9 g/dL Normal 3.9-4.9 [facility] Comment on above: Order Comment: Speci men Type: BLOOD SPECIMENOrdering Facility: [facility] Address: [address] [place] [address] Performed By: #### 2 4323-8 ####[facility] LABCLIA [id number] [place] [address] [place] ALP [Catalytic activity/Vol] 141 U/L High 38-113 [facility] Comment on above: Order Comment: Speci men Type: BLOOD SPECIMENOrdering Facility: [facility] Address: [address] [place] [address] Performed By: #### 2 4323-8 ####[facility] LABCLIA [id number] [place] [address] [place] ALT [Catalytic activity/Vol] 26 U/L Normal 10-54 [facility] Comment on above: Order Comment: Speci men Type: BLOOD SPECIMENOrdering Facility: [facility] Address: [address] [place] [address] Performed By: #### 2 4323-8 ####[facility] LABCLIA [id number] [place] [address] [place] Anion gap [Moles/Vol] 10 mmol/L Normal 9-18 [facility] Comment on above: Order Comment: Speci men Type: BLOOD SPECIMENOrdering Facility: [facility] Address: [address] [place], [place] [address] Performed By: #### 2 4323-8 ####[facility] LABCLIA [id number] [place] [address] [place] AST [Catalytic activity/Vol] 32 U/L Normal 14-40 [facility] Comment on above: Order Comment: Speci men Type: BLOOD SPECIMENOrdering Facility: [facility] Address: [address] [place] [address] Performed By: #### 2 4323-8 ####[facility] LABCLIA [id number] [place] [address] [place] Bilirubin [Mass/Vol] 0.2 mg/dL Normal 0.2-1.3 [facility] Comment on above: Order Comment: Speci men Type: BLOOD SPECIMENOrdering Facility: [facility] Address: [address] [place] [address] Performed By: #### 2 4323-8 ####[facility] LABCLIA [id number] [place] [address] [place] Calcium [Mass/Vol] 9.4 mg/dL Normal 8.5-10.2 [facility] Comment on above: Order Comment: Speci men Type: BLOOD SPECIMENOrdering Facility: [facility] Address: [address] [place] [address] Performed By: #### 2 4323-8 ####[facility] LABCLIA [id number] [place] [id number] [place] Chloride [Moles/Vol] 101 mmol/L Normal 97-105 [facility] Comment on above: Order Comment: Speci men Type: BLOOD SPECIMENOrdering Facility: [facility] Address: [address] [place], [place] [id number] Performed By: #### 2 4323-8 ####[facility] LABCLIA [id number] [place] [address] [place] CO2 [Moles/Vol] 24 mmol/L Normal 22-30 [facility] Comment on above: Order Comment: Speci men Type: BLOOD SPECIMENOrdering Facility: [facility] Address: [address] [place] [address] Performed By: #### 2 4323-8 ####[facility] LABCLIA [id number] [place] [address] [place] Creatinine [Mass/Vol] 1.35 mg/dL High 0.73-1.22 [facility] Comment on above: Order Comment: Speci men Type: BLOOD SPECIMENOrdering Facility: [facility] Address: [address] [place] [address] Performed By: #### 2 4323-8 ####[facility] LABCLIA [id number] [address] STATES OF [facility] Creatinine and Glomerular filtration rate.predicted panel (S/P/Bld) 51 mL/min/1.73m??? Low >=60 [facility] Comment on above: Order Comment: Speci men Type: BLOOD SPECIMENOrdering Facility: [facility] Address: [address] [place] [address] Result Comment: Birgit mated Glomerular Filtration Rate (eGFR) is calculated using the 2020 CKD-EPI creatinine equation. This equation utilizes serum creatinine, sex, and age as parameters. The creatinine assay has traceable calibration to isotope dilution-mass spectrometry. Refer to KDIGO guidelines for clinical interpretation. In patients with unstable renal function, e.g. those with acute kidney injury, the eGFR may not accurately reflect actual GFR. Performed By: #### 2 4323-8 ####[facility] LABCLIA [id number] [place] [address] [place] Glucose [Mass/Vol] 97 mg/dL Normal 74-99 [facility] Comment on above: Order Comment: Speci men Type: BLOOD SPECIMENOrdering Facility: [facility] Address: [address] [place] [address] Result Comment: The [place] Diabetes Association (ADA) provides guidance for cutoff values for fasting glucose and random glucose. The ADA defines fasting as no caloric intake for at least 8 hours. Fasting plasma glucose results between 100 to 125 mg/dL indicate increased risk for diabetes (prediabetes). Fasting plasma glucose results greater than or equal to 126 mg/dL meet the criteria for diagnosis of diabetes. In the absence of unequivocal hyperglycemia, results should be confirmed by repeat testing. In a patient with classic symptoms of hyperglycemia or hyperglycemic crisis, random plasma glucose results greater than or equal to 200 mg/dL meet the criteria for diagnosis of diabetes. Reference: Standards of Medical Care in Diabetes 2016, [place] Diabetes [employer]. Diabetes Care. 2016.39(Suppl 1). Performed By: #### 2 4323-8 ####[facility] LABCLIA [id number] [place] [address] [place] Potassium [Moles/Vol] 5.1 mmol/L Normal 3.7-5.1 [facility] Comment on above: Order Comment: Speci men Type: BLOOD SPECIMENOrdering Facility: [facility] Address: [address] [place] [address] Performed By: #### 2 4323-8 ####[facility] LABIA [id number] [place] [address] [place] Protein [Mass/Vol] 7.2 g/dL Normal 6.3-8.0 [facility] Comment on above: Order Comment: Speci men Type: BLOOD SPECIMENOrdering Facility: [facility] Address: [address] [place] [address] Performed By: #### 2 4323-8 ####[facility] LABCLIA [id number] [place] [address] [place] Sodium [Moles/Vol] 135 mmol/L Low 136-144 [facility] Comment on above: Order Comment: Speci men Type: BLOOD SPECIMENOrdering Facility: [facility] Address: [address] [place] [address] Performed By: #### 2 4323-8 ####[facility] LABCLIA [id number] [place] [address] [place] Urea nitrogen [Mass/Vol] 29 mg/dL High 9 [facility] Comment on above: Order Comment: Speci men Type: BLOOD SPECIMENOrdering Facility: [facility] Address: [address] [place] [address] Performed By: #### 2 4323-8 ####[facility] LABCLIA [id number] [place] [address] [place] CNPNon 08-23-2023 CNPN Telephone (FAMPWS) -------- ATIF COLÓN ([id number]) 1935 M Date Time Provider Department 08/23/23 JORDAN JOHNSON During your visit today, we recorded the following information about you: Savannah Bill LPN 08/23/2023 9:40 AM Signed Pt's daughter is calling to report she would like orders for grief counseling and PT for pt. Daughter reports she would prefer someone that will go to [place] where pt lives. Advised daughter she would need to figure out who she wants for grief counseling and PT and let dr's office know where to fax them. Daughter reports she will need to figure that out and will call back. Future appt: 10/04/23 MIMI Ashley Christopher B, MD 08/23/2023 10:55 AM Signed Reviewed. Allergies As of Date: 08/23/2023 Noted Allergy Reaction ASPIRIN 09/23/2010 8 - GI Upset PENICILLINS 10/28/2009 2 - Rash Date Reviewed: 07/05/2023 Reviewed by: Jessy Alas LPN - Fully Assessed Reason for Visit: Orders [681] Prescriptions as of 10/19/2023 - cyclobenzaprine (FLEXERIL) 5 mg tablet Take 1 tablet by mouth two times a day as needed for muscle spasm. - acetaminophen 325 mg cap Take 2 capsules by mouth two times a day as needed for pain. - melatonin 10 mg tab Take 1 tablet by mouth daily at bedtime. - sertraline (ZOLOFT) 50 mg tablet Take 1 tablet by mouth once daily. - donepezil (ARICEPT) 5 mg tablet Take 1 tablet by mouth daily at bedtime. - pantoprazole sodium (PANTOPRAZOLE ORAL) Take 40 mg by mouth twice daily. - Multivitamin capsule Take 1 capsule by mouth once daily. - ondansetron orally disintegrating (ZOFRAN ODT) 4 mg disintegrating tablet Take 1 tablet by mouth every 8 hours as needed for nausea/vomiting. - amLODIPine (NORVASC) 2.5 mg tablet Take 1 tablet by mouth once daily. - finasteride (PROSCAR) 5 mg tablet Take 1 tablet by mouth once daily. Problem List As Of Date 08/23/2023 Noted Resolved Abdominal Pain, Epigastric [R10.13] 10/28/2009 Rotator cuff tear [M75.100] 09/30/2010 06/23/2011 Rotator cuff (capsule) sprain [S43.429A] 03/16/2012 06/21/2012 Rotator cuff tear arthropathy [M75.100, M12.819]06/21/2012 Recurrent right inguinal hernia [K40.91] 12/25/2013 Essential hypertension [I10] 06/11/2014 RLS (restless legs syndrome) [G25.81] 09/20/2014 Mild cognitive impairment [G31.84] 09/19/2015 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/19/2015 Elevated prostate specific antigen (PSA) [R97.2*11/19/2015 06/12/2021 BPH (benign prostatic hyperplasia) [N40.0] GERD (gastroesophageal reflux disease) [K21.9] Osteoarthritis [M19.90] Hypertension [I10] 06/09/2017 Elevated PSA [R97.20] 06/09/2017 CKD (chronic kidney disease), stage III (HCC) [* Iron deficiency anemia [D50.9] Acute pain of right shoulder [M25.511] 06/08/2019 Acute pain of left shoulder [M25.512] 05/14/2022 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] 10/07/2022 04/04/2023 Intraparenchymal hemorrhage of brain (HCC) [I61*12/24/2022 12/28/2022 Brain bleed (HCC) [I61.9] 12/24/2022 12/28/2022 Delirium [R41.0] 12/26/2022 Gastric ulcer [K25.9] 02/11/2023 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 CNPJaylin 07-19-2023 CNPN Telephone (FAMWS) -------- ELDONATIF Mary Kate ([id number]) 1935 M Date Time Provider Department 07/19/23 JORDAN JOHNSON [facility] During your visit today, we recorded the following information about you: Jordan Johnson MD 07/19/2023 11:40 AM Signed ----- Message from Kami Angulo MD sent at 07/14/2023 1:35 PM EST ----- Dr Johnson I saw Mr Colón in office today. I will fax a note too but its kind of unreliable so messaging you as well. Cr 1.3. UA shows protein. When I see labs from [facility] he has a serum and urine immunofixation which showed monoclonal kappa chains. 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 Even if we go through hematology consult, bone marrow/kidney biopsy I am not sure if he will be a candidate for any treatment due to advanced age/resident of assisted living facility etc. My suggestion was to just monitor renal function with blood work for now. Would do BMP every 3 months or so. If any significant change in renal function we will revisit the topic of Myeloma evaluation. Please call if any questions. [phone]. 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 Angulo with the message below. It sounds like this was discussed with patient at their last OV. I do not see any records from Dr. Angulo yet. Can we please reach out to their office to fax records again? Jessy Alas LPN 07/19/2023 12:50 PM Signed Request forwarded to Dr Angulo's office for records. Jessy Alas LPN 07/23/2023 2:59 PM Signed To date records not received phone call to Dr Angulo's office and spoke with executive receptionist who will be forwarding records from 07/14/23 OV. Jessy Alas LPN 07/23/2023 2:59 PM Signed Records received and placed on providers desk for review. Allergies As of Date: 07/19/2023 Noted Allergy Reaction ASPIRIN 09/23/2010 8 - GI Upset PENICILLINS 10/28/2009 2 - Rash Date Reviewed: 07/05/2023 Reviewed by: Jessy Alas LPN - Fully Assessed Prescriptions as of 07/23/2023 - cyclobenzaprine (FLEXERIL) 5 mg tablet Take 1 tablet by mouth two times a day as needed for muscle spasm. - acetaminophen 325 mg cap Take 2 capsules by mouth two times a day as needed for pain. - melatonin 10 mg tab Take 1 tablet by mouth daily at bedtime. - sertraline (ZOLOFT) 50 mg tablet Take 1 tablet by mouth once daily. - donepezil (ARICEPT) 5 mg tablet Take 1 tablet by mouth daily at bedtime. - pantoprazole sodium (PANTOPRAZOLE ORAL) Take 40 mg by mouth twice daily. - Multivitamin capsule Take 1 capsule by mouth once daily. - ondansetron orally disintegrating (ZOFRAN ODT) 4 mg disintegrating tablet Take 1 tablet by mouth every 8 hours as needed for nausea/vomiting. - amLODIPine (NORVASC) 2.5 mg tablet Take 1 tablet by mouth once daily. - finasteride (PROSCAR) 5 mg tablet Take 1 tablet by mouth once daily. Problem List As Of Date 07/19/2023 Noted Resolved Abdominal Pain, Epigastric [R10.13] 10/28/2009 Rotator cuff tear [M75.100] 09/30/2010 06/23/2011 Rotator cuff (capsule) sprain [S43.429A] 03/16/2012 06/21/2012 Rotator cuff tear arthropathy [M75.100, M12.819]06/21/2012 Recurrent right inguinal hernia [K40.91] 12/25/2013 Essential hypertension [I10] 06/11/2014 RLS (restless legs syndrome) [G25.81] 09/20/2014 Mild cognitive impairment [G31.84] 09/19/2015 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/19/2015 Elevated prostate specific antigen (PSA) [R97.2*11/19/2015 06/12/2021 BPH (benign prostatic hyperplasia) [N40.0] GERD (gastroesophageal reflux disease) [K21.9] Osteoarthritis [M19.90] Hypertension [I10] 06/09/2017 Elevated PSA [R97.20] 06/09/2017 CKD (chronic kidney disease), stage III (HCC) [* Iron deficiency anemia [D50.9] Acute pain of right shoulder [M25.511] 06/08/2019 Acute pain of left shoulder [M25.512] 05/14/2022 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] 10/07/2022 04/04/2023 Intraparenchymal hemorrhage of brain (HCC) [I61*12/24/2022 12/28/2022 Brain bleed (HCC) [I61.9] 12/24/2022 12/28/2022 Delirium [R41.0] 12/26/2022 Gastric ulcer [K25.9] 02/11/2023 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 CNOVon 07-05-2023 CNOV Office Visit (FAMPWS ) -------- ATIF COLÓN ([id number]) 1935 M Date Time Provider Department 07/05/23 2:00 PM [facility] During your visit today, we recorded the following information about you: Pulse Respiration Blood pressure Weight 65/minute 18/minute 126/64 79.8 kg Jordan Johnson MD 07/11/2023 1:17 PM Signed Chief Complaint Patient presents with: Follow Up: 3 month HPI Atif Linuliceskarely is a 87 year old male who presents here today for Above Complaints. Accompanied today by daughter. Patient states that he has not had any further falls in the last month. Seeing PT for lower back pain 2 days per week and has been taking flexeril 5 mg at night which does help with pain. He was given exercise to do on his own which he states he is doing 2-3 times per day. States that he is not having any pain right now. Assisted living did put double mattress on the floor for him to prevent falls. Patient has been taking Zoloft 50 mg daily as prescribed for depression and grief symptoms since the passing of his . Daughter states that he is seeing a grief counselor through hospice when they stop by. Last visit with them was 1 week ago. Patient states that he is doing well on current regimen and does not want to change dosage. Denies feeling down/depressed, decreased energy/interest/concentr ation, SI/HI. BP well controlled on current regimen. F/u appointment with nephrology on 07/14. Renal function stable on outside labs on 05/21. Family trying to keep him out of the high sodium foods. Taking Aricept for dementia without change in memory loss since last OV. Past medical history, appointments, medications, allergies reviewed. Previous Medical History PAST MEDICAL HISTORY Diagnosis Date Abdominal pain, epigastric BPH (benign prostatic hyperplasia) CKD (chronic kidney disease), stage III (HCC) Dr. Childress DDD (degenerative disc disease), lumbar Depression Elevated PSA Fatty liver Gastric ulcer GERD (gastroesophageal reflux disease) Hypertension Hyponatremia Iron deficiency anemia Osteoarthritis RLS (restless legs syndrome) Rotator cuff tear arthropathy Seen previously by Dr. Palomino Senile dementia (HCC) Previous Surgical History PAST SURGICAL HISTORY Procedure Laterality Date CIRCUMCISION EGD TRANSORAL BIOPSY SINGLE/MULTIPLE 10/29/09 minimal irritation LAPAROSCOPY SURG CHOLECYSTECTOMY 10/31/09 Cholecystectomy, lap REPAIR FIRST ABDOMINAL WALL HERNIA 2006 Hernia repair, incisional SHOULDER ARTHROSCOPY/SURG 11/13/2010 Rotator cuff repair and Sub AC decompression right shouldrer Family History FAMILY HISTORY Problem Relation Age of Onset None Mother Alcohol/Drug Father Heart Brother Patient Allergies ALLERGIES Allergen Reactions Aspirin GI Upset Penicillins Rash Current Medications Current Outpatient Medications on File Prior to Visit Medication Sig cyclobenzaprine (FLEXERIL) 5 mg tablet Take 1 tablet by mouth two times a day as needed for muscle spasm. acetaminophen 325 mg cap Take 2 capsules by mouth two times a day as needed for pain. melatonin 10 mg tab Take 1 tablet by mouth daily at bedtime. sertraline (ZOLOFT) 50 mg tablet Take 1 tablet by mouth once daily. pantoprazole sodium (PANTOPRAZOLE ORAL) Take 40 mg by mouth twice daily. Multivitamin capsule Take 1 capsule by mouth once daily. ondansetron orally disintegrating (ZOFRAN ODT) 4 mg disintegrating tablet Take 1 tablet by mouth every 8 hours as needed for nausea/vomiting. finasteride (PROSCAR) 5 mg tablet Take 1 tablet by mouth once daily. donepezil (ARICEPT) 5 mg tablet Take 1 tablet by mouth daily at bedtime. amLODIPine (NORVASC) 2.5 mg tablet Take 1 tablet by mouth once daily. Current Facility-Administered Medications on File Prior to Visit Medication perflutren lipid microspheres 1.3 mL in NaCl (PF) 0.9% 10 mL injection (DEFINITY) sodium chloride 0.9 % (flush) 10 mL (BD POSIFLUSH) Social History Social History Tobacco Use Smoking status: Former Packs/day: .2 Types: Cigarettes Quit date: 06/07/1994 Years since quittin.0 Smokeless tobacco: Never Tobacco comments: quit 10 years ago Substance Use Topics Alcohol use: No Drug use: No Review of Symptoms REVIEW OF SYSTEMS GENERAL: No weight loss, malaise or fevers RESPIRATORY: Negative for cough, hemoptysis, wheezing, COPD, dyspnea or shortness of breath CARDIOVASCULAR: Negative for chest pain, leg swelling, hypertension, CHF or palpitations GI: No nausea, vomiting, or diarrhea SKIN: Negative for lesions, rash, and itching EXAM: BP 126/64 Pulse 65 Resp 18 Wt 79.8 kg (176 lb) SpO2 99% BMI 29.29 kg/m? General Appearance: Well appearing, alert, in no acute distress, well-hydrated, well nourished.. Skin: Skin color, texture, turgor normal, no suspicious rashes or l (more content not included)... Normal [facility] 06-25-2023 [facility] Telephone [facility] -------- ATIF COLÓN ([id number]) 1935 M Date Time Provider Department 06/25/23 JORDAN JOHNSON [facility] During your visit today, we recorded the following information about you: Gilma Mansfield RN 06/25/2023 11:02 AM Signed Yoshi from [facility] calls and states that patient is showing a drug to drug interaction with Donepezil and Zofran. KATARZYNA Hopkins Julie, APRN.EZ 06/25/2023 11:04 AM Signed If not taking daily may discontinue. Fabby Moore APRN.Jessy Hatch LPN 06/25/2023 12:33 PM Signed Phoned Yoshi from [facility] and updated her with provider's message. She voiced understanding. Sera Longo, RN 06/28/2023 11:46 AM Signed Yoshi with [facility] calling to clarify which medication can be discontinued, per note below from Fabby. Yoshi is assuming it is the Zofran but wanted clarification. Please call Yoshi with response, . Thank you. Fabby Moore APRN.EZ 06/28/2023 11:52 AM Signed Yes Zojerardo Moore APRN.Cameron Pace LPN 06/28/2023 12:57 PM Signed Yoshi telephoned and notified of clarification answer below. Cameron Vitale LPN Allergies As of Date: 06/25/2023 Noted Allergy Reaction ASPIRIN 09/23/2010 8 - GI Upset PENICILLINS 10/28/2009 2 - Rash Date Reviewed: 05/25/2023 Reviewed by: Jessy Alas LPN - Fully Assessed Reason for Visit: Medication Problem [65] Prescriptions as of 06/28/2023 - cyclobenzaprine (FLEXERIL) 5 mg tablet Take 1 tablet by mouth two times a day as needed for muscle spasm. - acetaminophen 325 mg cap Take 2 capsules by mouth two times a day as needed for pain. - melatonin 10 mg tab Take 1 tablet by mouth daily at bedtime. - sertraline (ZOLOFT) 50 mg tablet Take 1 tablet by mouth once daily. - donepezil (ARICEPT) 5 mg tablet Take 1 tablet by mouth daily at bedtime. - pantoprazole sodium (PANTOPRAZOLE ORAL) Take 40 mg by mouth twice daily. - Multivitamin capsule Take 1 capsule by mouth once daily. - ondansetron orally disintegrating (ZOFRAN ODT) 4 mg disintegrating tablet Take 1 tablet by mouth every 8 hours as needed for nausea/vomiting. - amLODIPine (NORVASC) 2.5 mg tablet Take 1 tablet by mouth once daily. - finasteride (PROSCAR) 5 mg tablet Take 1 tablet by mouth once daily. Facility-Administered Medications as of 06/28/2023 - perflutren lipid microspheres 1.3 mL in NaCl (PF) 0.9% 10 mL injection (DEFINITY) - sodium chloride 0.9 % (flush) 10 mL (BD POSIFLUSH) Problem List As Of Date 06/25/2023 Noted Resolved Abdominal Pain, Epigastric [R10.13] 10/28/2009 Rotator cuff tear [M75.100] 09/30/2010 06/23/2011 Rotator cuff (capsule) sprain [S43.429A] 03/16/2012 06/21/2012 Rotator cuff tear arthropathy [M75.100, M12.819]06/21/2012 Recurrent right inguinal hernia [K40.91] 12/25/2013 Essential hypertension [I10] 06/11/2014 RLS (restless legs syndrome) [G25.81] 09/20/2014 Mild cognitive impairment [G31.84] 09/19/2015 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/19/2015 Elevated prostate specific antigen (PSA) [R97.2*11/19/2015 06/12/2021 BPH (benign prostatic hyperplasia) [N40.0] GERD (gastroesophageal reflux disease) [K21.9] Osteoarthritis [M19.90] Hypertension [I10] 06/09/2017 Elevated PSA [R97.20] 06/09/2017 CKD (chronic kidney disease), stage III (HCC) [* Iron deficiency anemia [D50.9] Acute pain of right shoulder [M25.511] 06/08/2019 Acute pain of left shoulder [M25.512] 05/14/2022 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] 10/07/2022 04/04/2023 Intraparenchymal hemorrhage of brain (HCC) [I61*12/24/2022 12/28/2022 Brain bleed (HCC) [I61.9] 12/24/2022 12/28/2022 Delirium [R41.0] 12/26/2022 Gastric ulcer [K25.9] 02/11/2023 Senile dementia (HCC) [F03.90] 02/11/2023 Subacute cough [R05.2] 03/03/2023 Wheezing [R06.2] 03/03/2023 Chest congestion [R09.89] 03/03/2023 Depression [F32.A] 04/01/2023 Encounter Status:Closed by JESSY ALAS on 06/25/23 [facility] ATIF COLÓN ([id number]) 1935 M Date Time Provider Department 06/24/23 JORDAN JOHNSON [facility] During your visit today, we recorded the following information about you: Benedict Jose RN 06/24/2023 4:09 PM Signed Jocelin PT calling from [facility] to report plan of care for patient and PT will visit patient one time a week for first week and 2 times a week for 4 weeks. PT will work with patient on fall prevention, strengthening, and balance. No call back needed unless provider has questions. KATARZYNA Wade Christopher B, MD 06/24/2023 4:23 PM Signed Reviewed and agree. Allergies As of Date: 06/24/2023 Noted Allergy Reaction ASPIRIN 09/23/2010 8 - GI Upset PENICILLINS 10/28/2009 2 - Rash Date Reviewed: 05/25/2023 Reviewed by: Jessy Alas LPN - Fully Assessed Reason for Visit: [facility] PT POC [Other] Prescriptions as of 06/24/2023 - cyclobenzaprine (FLEXERIL) 5 mg tablet Take 1 tablet by mouth two times a day as needed for muscle spasm. - acetaminophen 325 mg cap Take 2 capsules by mouth two times a day as needed for pain. - melatonin 10 mg tab Take 1 tablet by mouth daily at bedtime. - sertraline (ZOLOFT) 50 mg tablet Take 1 tablet by mouth once daily. - donepezil (ARICEPT) 5 mg tablet Take 1 tablet by mouth daily at bedtime. - pantoprazole sodium (PANTOPRAZOLE ORAL) Take 40 mg by mouth twice daily. - Multivitamin capsule Take 1 capsule by mouth once daily. - ondansetron orally disintegrating (ZOFRAN ODT) 4 mg disintegrating tablet Take 1 tablet by mouth every 8 hours as needed for nausea/vomiting. - amLODIPine (NORVASC) 2.5 mg tablet Take 1 tablet by mouth once daily. - finasteride (PROSCAR) 5 mg tablet Take 1 tablet by mouth once daily. Facility-Administered Medications as of 06/24/2023 - perflutren lipid microspheres 1.3 mL in NaCl (PF) 0.9% 10 mL injection (DEFINITY) - sodium chloride 0.9 % (flush) 10 mL (BD POSIFLUSH) Problem List As Of Date 06/24/2023 Noted Resolved Abdominal Pain, Epigastric [R10.13] 10/28/2009 Rotator cuff tear [M75.100] 09/30/2010 06/23/2011 Rotator cuff (capsule) sprain [S43.429A] 03/16/2012 06/21/2012 Rotator cuff tear arthropathy [M75.100, M12.819]06/21/2012 Recurrent right inguinal hernia [K40.91] 12/25/2013 Essential hypertension [I10] 06/11/2014 RLS (restless legs syndrome) [G25.81] 09/20/2014 Mild cognitive impairment [G31.84] 09/19/2015 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/19/2015 Elevated prostate specific antigen (PSA) [R97.2*11/19/2015 06/12/2021 BPH (benign prostatic hyperplasia) [N40.0] GERD (gastroesophageal reflux disease) [K21.9] Osteoarthritis [M19.90] Hypertension [I10] 06/09/2017 Elevated PSA [R97.20] 06/09/2017 CKD (chronic kidney disease), stage III (HCC) [* Iron deficiency anemia [D50.9] Acute pain of right shoulder [M25.511] 06/08/2019 Acute pain of left shoulder [M25.512] 05/14/2022 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 CNPJaylin 06-16-2023 CNPN Telephone (FAMPWS) -------- ATIF COLÓN ([id number]) 1935 M Date Time Provider Department 06/16/23 [facility] During your visit today, we recorded the following information about you: Monica Maloney, RN 06/16/2023 9:36 AM Signed Ana Lilia IRVIN from [facility] care calling to make us aware that they are declining to take pt on as they are not accepting [employer] pts at this time. They are trying to work on an agreement with them but not sure when that will happen. [facility], it appears pt's daughter had made this request. Left detailed msg on her cell phone and asked her to return the call to let us know is there is another HH she would like us to try. Monica Maloney, RN 06/17/2023 4:49 PM Signed Called and spoke with pt's daughter Celeste who states she got the msg and has spoken to [facility] staff Vickie Walker or Valentina Crenshaw who are checking in to this further and will be getting back to us. Allergies As of Date: 06/16/2023 Noted Allergy Reaction ASPIRIN 09/23/2010 8 - GI Upset PENICILLINS 10/28/2009 2 - Rash Date Reviewed: 05/25/2023 Reviewed by: Jessy Alas LPN - Fully Assessed Reason for Visit: Home Health refusal [Other] Cmt: [employer] Prescriptions as of 06/17/2023 - cyclobenzaprine (FLEXERIL) 5 mg tablet Take 1 tablet by mouth two times a day as needed for muscle spasm. - acetaminophen 325 mg cap Take 2 capsules by mouth two times a day as needed for pain. - melatonin 10 mg tab Take 1 tablet by mouth daily at bedtime. - sertraline (ZOLOFT) 50 mg tablet Take 1 tablet by mouth once daily. - donepezil (ARICEPT) 5 mg tablet Take 1 tablet by mouth daily at bedtime. - pantoprazole sodium (PANTOPRAZOLE ORAL) Take 40 mg by mouth twice daily. - Multivitamin capsule Take 1 capsule by mouth once daily. - ondansetron orally disintegrating (ZOFRAN ODT) 4 mg disintegrating tablet Take 1 tablet by mouth every 8 hours as needed for nausea/vomiting. - amLODIPine (NORVASC) 2.5 mg tablet Take 1 tablet by mouth once daily. - finasteride (PROSCAR) 5 mg tablet Take 1 tablet by mouth once daily. Facility-Administered Medications as of 06/17/2023 - perflutren lipid microspheres 1.3 mL in NaCl (PF) 0.9% 10 mL injection (DEFINITY) - sodium chloride 0.9 % (flush) 10 mL (BD POSIFLUSH) Problem List As Of Date 06/16/2023 Noted Resolved Abdominal Pain, Epigastric [R10.13] 10/28/2009 Rotator cuff tear [M75.100] 09/30/2010 06/23/2011 Rotator cuff (capsule) sprain [S43.429A] 03/16/2012 06/21/2012 Rotator cuff tear arthropathy [M75.100, M12.819]06/21/2012 Recurrent right inguinal hernia [K40.91] 12/25/2013 Essential hypertension [I10] 06/11/2014 RLS (restless legs syndrome) [G25.81] 09/20/2014 Mild cognitive impairment [G31.84] 09/19/2015 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/19/2015 Elevated prostate specific antigen (PSA) [R97.2*11/19/2015 06/12/2021 BPH (benign prostatic hyperplasia) [N40.0] GERD (gastroesophageal reflux disease) [K21.9] Osteoarthritis [M19.90] Hypertension [I10] 06/09/2017 Elevated PSA [R97.20] 06/09/2017 CKD (chronic kidney disease), stage III (HCC) [* Iron deficiency anemia [D50.9] Acute pain of right shoulder [M25.511] 06/08/2019 Acute pain of left shoulder [M25.512] 05/14/2022 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 CNOVon 05-25-2023 CNOV Office Visit (FAMPWS ) -------- ATIF COLÓN ([id number]) 1935 M Date Time Provider Department 05/25/23 7:00 PM JORDAN JOHNSON During your visit today, we recorded the following information about you: Pulse Respiration Blood pressure 81/minute 18/minute 128/70 Jordan Johnson MD 05/29/2023 6:41 AM Signed Chief Complaint Patient presents with: ER F/U: Multiple falls/slips. Patient wanting to discuss muscle spasms. Wanting to try massage therapy. HPI Atif Colón is a 87 year old male who presents here today for ER Follow Up.. Patient evaluated at [facility] ED on 05/21 for complaint of left lower back and hip pain after fall 2-3 days prior onto the wheel of his walker. Denied striking his head. Obtained CBC CMP, and CT abd/pelvis without contrast which were unremarkable. Diagnosed with lower back spasm and given rx for flexeril for home use. Given morphine and zofran in the ER. Discharged home with recommendation to follow up with our office. Today, he states that he continues to get spasms in his lower back when he swings his legs out of bed. Taking flexeril as prescribed without much improvement in pain. Does make him feel drowsy at 10 mg. Had another fall yesterday getting out of bed. Went down on his right knee with small abrasion which they are treating with neosporin 1-2 times per day. Has normal ROM of right knee without pain or swelling. Past medical history, appointments, medications, allergies reviewed. Previous Medical History PAST MEDICAL HISTORY Diagnosis Date Abdominal pain, epigastric BPH (benign prostatic hyperplasia) CKD (chronic kidney disease), stage III (HCC) Dr. Childress DDD (degenerative disc disease), lumbar Depression Elevated PSA Fatty liver Gastric ulcer GERD (gastroesophageal reflux disease) Hypertension Hyponatremia Iron deficiency anemia Osteoarthritis RLS (restless legs syndrome) Rotator cuff tear arthropathy Seen previously by Dr. Palomino Senile dementia ([facility]) Previous Surgical History PAST SURGICAL HISTORY Procedure Laterality Date CIRCUMCISION EGD TRANSORAL BIOPSY SINGLE/MULTIPLE 10/29/09 minimal irritation LAPAROSCOPY SURG CHOLECYSTECTOMY 10/31/09 Cholecystectomy, lap REPAIR FIRST ABDOMINAL WALL HERNIA 2006 Hernia repair, incisional SHOULDER ARTHROSCOPY/SURG 11/13/2010 Rotator cuff repair and Sub AC decompression right shouldrer Family History FAMILY HISTORY Problem Relation Age of Onset None Mother Alcohol/Drug Father Heart Brother Patient Allergies ALLERGIES Allergen Reactions Aspirin GI Upset Penicillins Rash Current Medications Current Outpatient Medications on File Prior to Visit Medication Sig acetaminophen 325 mg cap Take 2 capsules by mouth two times a day as needed for pain. melatonin 10 mg tab Take 1 tablet by mouth daily at bedtime. sertraline (ZOLOFT) 50 mg tablet Take 1 tablet by mouth once daily. donepezil (ARICEPT) 5 mg tablet Take 1 tablet by mouth daily at bedtime. pantoprazole sodium (PANTOPRAZOLE ORAL) Take 40 mg by mouth twice daily. Multivitamin capsule Take 1 capsule by mouth once daily. ondansetron orally disintegrating (ZOFRAN ODT) 4 mg disintegrating tablet Take 1 tablet by mouth every 8 hours as needed for nausea/vomiting. amLODIPine (NORVASC) 2.5 mg tablet Take 1 tablet by mouth once daily. finasteride (PROSCAR) 5 mg tablet Take 1 tablet by mouth once daily. Current Facility-Administered Medications on File Prior to Visit Medication perflutren lipid microspheres 1.3 mL in NaCl (PF) 0.9% 10 mL injection (DEFINITY) sodium chloride 0.9 % (flush) 10 mL (BD POSIFLUSH) Social History Social History Tobacco Use Smoking status: Former Packs/day: .2 Types: Cigarettes Quit date: 06/07/1994 Years since quittin.9 Smokeless tobacco: Never Tobacco comments: quit 10 years ago Substance Use Topics Alcohol use: No Drug use: No Review of Symptoms REVIEW OF SYSTEMS See HPI EXAM: BP 128/70 Pulse 81 Resp 18 SpO2 95% General Appearance: Well appearing, alert, in no acute distress, well-hydrated, well nourished.. Skin: Skin color, texture, turgor normal, no suspicious rashes or lesions. Back:no pain to palpation of vertebrae, reflexes are 2+ and symmetric, motor and sensory appear to be normal, negative SLR test, no evidence of scoliosis. Positive for TTP over left lumbar paraspinal muscles. Lungs: Lungs clear to auscultation. No wheezing, rhonchi, rales.. Heart: RRR without murmur, gallop, or rubs. No ectopy. Extremities: No deformities, edema, skin discoloration, clubbing or cyanosis. Good capillary refill. KNEE:Location: Right Redness: No. Warmth: No. Crepitus: No. Effusion: No. Joint line tenderness: No. Lateral tenderness: No. Medial tenderness: No. Health Maintenance List RSV Vaccine(1 - 1-dose 60+ seri (more content not included)... Normal [facility] 05-21-2023 CNPN Telephone (FAMPWS) -------- ATIF COLÓN ([id number]) 1935 M Date Time Provider Department 05/21/23 FABBY MOORE During your visit today, we recorded the following information about you: Fabby Moore APRN.ZE 05/21/2023 8:53 AM Signed Received fax patient is screaming in pain and is is taking 1-2 people to move him. Xray did not show any acute findings. If he is in this amount of pain and it is taking 1-2 people to move him he needs to be evaluated in ER. Fabby Moore APRN.Vickie Roche RN 05/21/2023 9:43 AM Signed Cameron with [facility] called and is notified of providers message and instructions. She voices understanding, and will tell the Pts nurse and have her call if she has any questions. KATARZYNA Prakash Michelle, LPN 05/21/2023 9:53 AM Signed Fax also sent back with signed order with ER evfederica AND tx. Cameron Vitale LPN Allergies As of Date: 05/21/2023 Noted Allergy Reaction ASPIRIN 09/23/2010 8 - GI Upset PENICILLINS 10/28/2009 2 - Rash Date Reviewed: 04/01/2023 Reviewed by: Jessy Alas LPN - Fully Assessed Reason for Visit: Patient Update [[id number]] Prescriptions as of 05/21/2023 - acetaminophen 325 mg cap Take 2 capsules by mouth two times a day as needed for pain. - melatonin 10 mg tab Take 1 tablet by mouth daily at bedtime. - sertraline (ZOLOFT) 50 mg tablet Take 1 tablet by mouth once daily. - donepezil (ARICEPT) 5 mg tablet Take 1 tablet by mouth daily at bedtime. - pantoprazole sodium (PANTOPRAZOLE ORAL) Take 40 mg by mouth twice daily. - Multivitamin capsule Take 1 capsule by mouth once daily. - ondansetron orally disintegrating (ZOFRAN ODT) 4 mg disintegrating tablet Take 1 tablet by mouth every 8 hours as needed for nausea/vomiting. - amLODIPine (NORVASC) 2.5 mg tablet Take 1 tablet by mouth once daily. - finasteride (PROSCAR) 5 mg tablet Take 1 tablet by mouth once daily. Facility-Administered Medications as of 05/21/2023 - perflutren lipid microspheres 1.3 mL in NaCl (PF) 0.9% 10 mL injection (DEFINITY) - sodium chloride 0.9 % (flush) 10 mL (BD POSIFLUSH) Problem List As Of Date 05/21/2023 Noted Resolved Abdominal Pain, Epigastric [R10.13] 10/28/2009 Rotator cuff tear [M75.100] 09/30/2010 06/23/2011 Rotator cuff (capsule) sprain [S43.429A] 03/16/2012 06/21/2012 Rotator cuff tear arthropathy [M75.100, M12.819]06/21/2012 Recurrent right inguinal hernia [K40.91] 12/25/2013 Essential hypertension [I10] 06/11/2014 RLS (restless legs syndrome) [G25.81] 09/20/2014 Mild cognitive impairment [G31.84] 09/19/2015 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/19/2015 Elevated prostate specific antigen (PSA) [R97.2*11/19/2015 06/12/2021 BPH (benign prostatic hyperplasia) [N40.0] GERD (gastroesophageal reflux disease) [K21.9] Osteoarthritis [M19.90] Hypertension [I10] 06/09/2017 Elevated PSA [R97.20] 06/09/2017 CKD (chronic kidney disease), stage III (HCC) [* Iron deficiency anemia [D50.9] Acute pain of right shoulder [M25.511] 06/08/2019 Acute pain of left shoulder [M25.512] 05/14/2022 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 05-19-2023 LILI Telephone (ISAK) -------- ATIF COLÓN ([id number]) 1935 M Date Time Provider Department 05/19/23 FABBY MOORE During your visit today, we recorded the following information about you: Fabby Moore APRN.EZ 05/19/2023 10:22 AM Signed Please call [facility] and let them know alright for XR lumbar spine. If his pain persists will need office appointment for evaluation Fabby Moore APRN.Cameron Pace LPN 05/19/2023 10:55 AM Signed Telephone call placed to [facility], spoke with nurse Lyman. Verbal order given for patient from Fabby Moore CNP for lumbar spine xray 3 views. Cameron Vitale LPN Allergies As of Date: 05/19/2023 Noted Allergy Reaction ASPIRIN 09/23/2010 8 - GI Upset PENICILLINS 10/28/2009 2 - Rash Date Reviewed: 04/01/2023 Reviewed by: Jessy Alas LPN - Fully Assessed Primary Visit Diagnosis:Acute left-sided low back pain without sciatica [M54.50] Order(s):XR LUMBAR GENERAL 3V AP/LAT/L5-S1 [[id number]] Order #: [id number] FUTURE Prescriptions as of 05/19/2023 - acetaminophen 325 mg cap Take 2 capsules by mouth two times a day as needed for pain. - melatonin 10 mg tab Take 1 tablet by mouth daily at bedtime. - sertraline (ZOLOFT) 50 mg tablet Take 1 tablet by mouth once daily. - donepezil (ARICEPT) 5 mg tablet Take 1 tablet by mouth daily at bedtime. - pantoprazole sodium (PANTOPRAZOLE ORAL) Take 40 mg by mouth twice daily. - Multivitamin capsule Take 1 capsule by mouth once daily. - ondansetron orally disintegrating (ZOFRAN ODT) 4 mg disintegrating tablet Take 1 tablet by mouth every 8 hours as needed for nausea/vomiting. - amLODIPine (NORVASC) 2.5 mg tablet Take 1 tablet by mouth once daily. - finasteride (PROSCAR) 5 mg tablet Take 1 tablet by mouth once daily. Facility-Administered Medications as of 05/19/2023 - perflutren lipid microspheres 1.3 mL in NaCl (PF) 0.9% 10 mL injection (DEFINITY) - sodium chloride 0.9 % (flush) 10 mL (BD POSIFLUSH) Problem List As Of Date 05/19/2023 Noted Resolved Abdominal Pain, Epigastric [R10.13] 10/28/2009 Rotator cuff tear [M75.100] 09/30/2010 06/23/2011 Rotator cuff (capsule) sprain [S43.429A] 03/16/2012 06/21/2012 Rotator cuff tear arthropathy [M75.100, M12.819]06/21/2012 Recurrent right inguinal hernia [K40.91] 12/25/2013 Essential hypertension [I10] 06/11/2014 RLS (restless legs syndrome) [G25.81] 09/20/2014 Mild cognitive impairment [G31.84] 09/19/2015 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/19/2015 Elevated prostate specific antigen (PSA) [R97.2*11/19/2015 06/12/2021 BPH (benign prostatic hyperplasia) [N40.0] GERD (gastroesophageal reflux disease) [K21.9] Osteoarthritis [M19.90] Hypertension [I10] 06/09/2017 Elevated PSA [R97.20] 06/09/2017 CKD (chronic kidney disease), stage III (HCC) [* Iron deficiency anemia [D50.9] Acute pain of right shoulder [M25.511] 06/08/2019 Acute pain of left shoulder [M25.512] 05/14/2022 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] 10/07/2022 04/04/2023 Intraparenchymal hemorrhage of brain (HCC) [I61*12/24/2022 12/28/2022 Brain bleed (HCC) [I61.9] 12/24/2022 12/28/2022 Delirium [R41.0] 12/26/2022 Gastric ulcer [K25.9] 02/11/2023 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 called in and reports Pt has Melatonin 10 mg routine scheduled and someone called a Melatonin 10 mg PRN to [place] the intermediate. She states the max dose allowed of Melatonin is 12 mg, so if the routine and PRN were given together he would get 20 mg. She is asking to have one of those discontinued. She said you can call the main number and her extension and leave a VM, or call main number and ask for a pharmacist. Jordan Johnson MD 04/12/2023 1:20 PM Signed Cancel the PRN. Continue Scheduled 10 mg melatonin qhs. Cameron Vitale LPN 04/12/2023 2:30 PM Signed Sadaf telephoned. Gave verbal to discontinue PRN and to continue scheduled. Cameron Vitale LPN Allergies As of Date: 04/12/2023 Noted Allergy Reaction ASPIRIN 09/23/2010 8 - GI Upset PENICILLINS 10/28/2009 2 - Rash Date Reviewed: 04/01/2023 Reviewed by: Jessy Alas LPN - Fully Assessed Reason for Visit: Medication Problem [65] Prescriptions as of 04/12/2023 - acetaminophen 325 mg cap Take 2 capsules by mouth two times a day as needed for pain. - melatonin 10 mg tab Take 1 tablet by mouth daily at bedtime. - sertraline (ZOLOFT) 50 mg tablet Take 1 tablet by mouth once daily. - donepezil (ARICEPT) 5 mg tablet Take 1 tablet by mouth daily at bedtime. - pantoprazole sodium (PANTOPRAZOLE ORAL) Take 40 mg by mouth twice daily. - Multivitamin capsule Take 1 capsule by mouth once daily. - ondansetron orally disintegrating (ZOFRAN ODT) 4 mg disintegrating tablet Take 1 tablet by mouth every 8 hours as needed for nausea/vomiting. - amLODIPine (NORVASC) 2.5 mg tablet Take 1 tablet by mouth once daily. - finasteride (PROSCAR) 5 mg tablet Take 1 tablet by mouth once daily. 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]06/21/2012 Recurrent right inguinal hernia [K40.91] 12/25/2013 Essential hypertension [I10] 06/11/2014 RLS (restless legs syndrome) [G25.81] 09/20/2014 Mild cognitive impairment [G31.84] 09/19/2015 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/19/2015 Elevated prostate specific antigen (PSA) [R97.2*11/19/2015 06/12/2021 BPH (benign prostatic hyperplasia) [N40.0] GERD (gastroesophageal reflux disease) [K21.9] Osteoarthritis [M19.90] Hypertension [I10] 06/09/2017 Elevated PSA [R97.20] 06/09/2017 CKD (chronic kidney disease), stage III (HCC) [* Iron deficiency anemia [D50.9] Acute pain of right shoulder [M25.511] 06/08/2019 Acute pain of left shoulder [M25.512] 05/14/2022 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 04-02-2023 EZN Telephone (FAMPWS) -------- ELDONATIF Mary Kate ([id number]) 1935 M Date Time Provider Department 04/02/23 JORDAN JOHNSON During your visit today, we recorded the following information about you: Jordan Johnson MD 04/02/2023 9:32 AM Signed Kidney function improved and is near baseline, but still slightly decreased. Low sodium level which is stable. Alk phos remains slightly high, but stable with mild elevation in his LFTs consistent with his history of fatty liver disease. Discussed scheduling his tylenol at [facility] yesterday, but with these findings would recommend returning to PRN use for significant pain 2/2 OA. Should be avoiding alcohol as well. Will recheck at future OV. Vickie Hooks RN 04/02/2023 1:10 PM Signed Called and left a voicemail for the Patient's daughter Celeste to call back and ask for a nurse to receive the providers message. KATARZYNA Prakash Barbara, RN 04/02/2023 1:37 PM Signed Pt's daughter Celeste returned the call and notified of Dr. Johnson's recommendations. Allergies As of Date: 04/02/2023 Noted Allergy Reaction ASPIRIN 09/23/2010 8 - GI Upset PENICILLINS 10/28/2009 2 - Rash Date Reviewed: 04/01/2023 Reviewed by: Jessy Alas LPN - Fully Assessed Reason for Visit: Results [95] Order(s):acetaminophen 325 mg capTake 2 capsules by mouth two times a day as needed for pain.Disp: 180 capsuleRfl: 3 Prescriptions as of 04/02/2023 - acetaminophen 325 mg cap Take 2 capsules by mouth two times a day as needed for pain. - melatonin 10 mg tab Take 1 tablet by mouth daily at bedtime. - sertraline (ZOLOFT) 50 mg tablet Take 1 tablet by mouth once daily. - donepezil (ARICEPT) 5 mg tablet Take 1 tablet by mouth daily at bedtime. - pantoprazole sodium (PANTOPRAZOLE ORAL) Take 40 mg by mouth twice daily. - Multivitamin capsule Take 1 capsule by mouth once daily. - ondansetron orally disintegrating (ZOFRAN ODT) 4 mg disintegrating tablet Take 1 tablet by mouth every 8 hours as needed for nausea/vomiting. - amLODIPine (NORVASC) 2.5 mg tablet Take 1 tablet by mouth once daily. - finasteride (PROSCAR) 5 mg tablet Take 1 tablet by mouth once daily. 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]06/21/2012 Recurrent right inguinal hernia [K40.91] 12/25/2013 Essential hypertension [I10] 06/11/2014 RLS (restless legs syndrome) [G25.81] 09/20/2014 Mild cognitive impairment [G31.84] 09/19/2015 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/19/2015 Elevated prostate specific antigen (PSA) [R97.2*11/19/2015 06/12/2021 BPH (benign prostatic hyperplasia) [N40.0] GERD (gastroesophageal reflux disease) [K21.9] Osteoarthritis [M19.90] Hypertension [I10] 06/09/2017 Elevated PSA [R97.20] 06/09/2017 CKD (chronic kidney disease), stage III (HCC) [* Iron deficiency anemia [D50.9] Acute pain of right shoulder [M25.511] 06/08/2019 Acute pain of left shoulder [M25.512] 05/14/2022 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 ACETAMINOPHEN 325 MG CAPSULE 180 * 3 04/02/2023 Route: ORAL Sig: Take 2 capsules by mouth two times a day as needed for pain. Medications Discontinued During This Encounter Prescriptions - acetaminophen 325 mg cap (Discontinued) Take 2 capsules by mouth two times a day. - acetaminophen 325 mg cap (Discontinued) Take 2 capsules by mouth two times a day as needed for pain. Encounter Status:Closed by MONICA MALONEY on 04/02/23 Normal [facility] Comprehensive metabolic 2000 panelon 04-02-2023 Albumin [Mass/Vol] 3.8 g/dL Low 3.9 - 4.9 g/dL [facility] ALP [Catalytic activity/Vol] 154 U/L High 38 - 113 U/L [facility] ALT [Catalytic activity/Vol] 65 U/L High 10 - 54 U/L [facility] Anion gap [Moles/Vol] 10 mmol/L 9 - 18 mmol/L [facility] AST [Catalytic activity/Vol] 51 U/L High 14 - 40 U/L [facility] Bilirubin [Mass/Vol] 0.2 mg/dL 0.2 - 1.3 mg/dL [facility] Calcium [Mass/Vol] 9.1 mg/dL 8.5 - 10. 2 mg/dL [facility] Chloride [Moles/Vol] 99 mmol/L 97 - 105 mmol/L [facility] CO2 [Moles/Vol] 24 mmol/L 22 - 30 mmol/L [facility] Creatinine [Mass/Vol] 1.23 mg/dL High 0.73 - 1.22 mg/dL [facility] Estimated Glomerular Filtration Rate 58 mL/min/1.73m Low >=60 mL/min/1.73m [facility] Glucose [Mass/Vol] 96 mg/dL 74 - 99 mg/dL [facility] Potassium [Moles/Vol] 4.9 mmol/L 3.7 - 5.1 mmol/L [facility] Protein [Mass/Vol] 7.0 g/dL 6.3 - 8.0 g/dL [facility] Sodium [Moles/Vol] 133 mmol/L Low 136 - 144 mmol/L [facility] Urea nitrogen [Mass/Vol] 26 mg/dL High 9 - 24 mg/dL [facility] CNOVon 04-01-2023 CNOV Office Visit (RAJEEVWS ) -------- GYPSYATIF WATTERS ([id number]) 1935 M Date Time Provider Department 04/01/23 3:40 PM JORDAN JOHNSON During your visit today, we recorded the following information about you: Pulse Respiration Blood pressure 93/minute 18/minute 110/68 Jordan Johnson MD 04/04/2023 6:45 AM Signed Chief Complaint Patient presents with: Follow Up: 1 month follow up HPI Atif Colón is a 87 year old male who presents here today for Above Complaints. Accompanied today by daughters. very recently and he is coping as well as can be expected. Eating 3 meals per day and snacking in between. Sleeping well at night if he takes vistaril. Does not cause him to feel tired during the day. Taking his Zoloft as prescribed without side effects. Not talking with counseling through hospice yet. Daughter requesting we schedule his tylenol for chronic arthritis pain. Nurses are dispensing his medications, but not asking about this PRN med. CKD: has not had repeat labs since he was discharged from [facility] in February. Admits to adding salt to food. Discussed avoiding NSAIDs. Having some difficulty with sleep. Has been on vistaril in the past. Discussed interaction with other medications. Would be willing to try 10 mg melatonin instead. Dementia symptoms seem to be improved with Aricept 5 mg per family. Past medical history, appointments, medications, allergies reviewed. Previous Medical History PAST MEDICAL HISTORY Diagnosis Date Abdominal pain, epigastric BPH (benign prostatic hyperplasia) CKD (chronic kidney disease), stage III (HCC) Dr. Childress DDD (degenerative disc disease), lumbar Elevated PSA Gastric ulcer GERD (gastroesophageal reflux disease) Hypertension Hyponatremia Iron deficiency anemia Osteoarthritis RLS (restless legs syndrome) Rotator cuff tear arthropathy Seen previously by Dr. Palomino Senile dementia ([facility]) Previous Surgical History PAST SURGICAL HISTORY Procedure Laterality Date CIRCUMCISION EGD TRANSORAL BIOPSY SINGLE/MULTIPLE 10/29/09 minimal irritation LAPAROSCOPY SURG CHOLECYSTECTOMY 10/31/09 Cholecystectomy, lap REPAIR FIRST ABDOMINAL WALL HERNIA 2006 Hernia repair, incisional SHOULDER ARTHROSCOPY/SURG 11/13/2010 Rotator cuff repair and Sub AC decompression right shouldrer Family History FAMILY HISTORY Problem Relation Age of Onset None Mother Alcohol/Drug Father Heart Brother Patient Allergies ALLERGIES Allergen Reactions Aspirin GI Upset Penicillins Rash Current Medications Current Outpatient Medications on File Prior to Visit Medication Sig hydrOXYzine HCl (ATARAX) 50 mg tablet Take 50 mg by mouth three times a day as needed. At HS prn for sleep the daughter thinks. sertraline (ZOLOFT) 50 mg tablet Take 1 tablet by mouth once daily. donepezil (ARICEPT) 5 mg tablet Take 1 tablet by mouth daily at bedtime. pantoprazole sodium (PANTOPRAZOLE ORAL) Take 40 mg by mouth twice daily. Multivitamin capsule Take 1 capsule by mouth once daily. acetaminophen 325 mg cap Take 325 mg by mouth as needed. ondansetron orally disintegrating (ZOFRAN ODT) 4 mg disintegrating tablet Take 1 tablet by mouth every 8 hours as needed for nausea/vomiting. finasteride (PROSCAR) 5 mg tablet Take 1 tablet by mouth once daily. nitrofurantoin monohydrate and macrocrystal (MACROBID) 100 mg capsule Take 100 mg by mouth twice daily. X 5 days (Patient not taking: Reported on 04/01/2023) amLODIPine (NORVASC) 2.5 mg tablet Take 1 tablet by mouth once daily. melatonin 10 mg tab Take 5 mg by mouth daily at bedtime. Current Facility-Administered Medications on File Prior to Visit Medication perflutren lipid microspheres 1.3 mL in NaCl (PF) 0.9% 10 mL injection (DEFINITY) sodium chloride 0.9 % (flush) 10 mL (BD POSIFLUSH) Social History Social History Tobacco Use Smoking status: Former Packs/day: .2 Types: Cigarettes Quit date: 06/07/1994 Years since quittin.8 Smokeless tobacco: Never Tobacco comments: quit 10 years ago Substance Use Topics Alcohol use: No Drug use: No Review of Symptoms REVIEW OF SYSTEMS GENERAL: No weight loss, malaise or fevers RESPIRATORY: Negative for cough, hemoptysis, wheezing, COPD, dyspnea or shortness of breath CARDIOVASCULAR: Negative for chest pain, leg swelling, hypertension, CHF or palpitations GI: No nausea, vomiting, or diarrhea SKIN: Negative for lesions, rash, and itching EXAM: BP 110/68 Pulse 93 Resp 18 SpO2 96% General Appearance: Well appearing, alert, in no acute distress, well-hydrated, well nourished.. Skin: Skin color, texture, turgor normal, no suspicious rashes or lesions. Lungs: Lungs clear to auscultation. No wheezing, rhonchi, rales.. Heart: RRR without murmur, gallop, or rubs. No ectopy. Abdomen: Normal abdominal exam, Ab (more content not included)... Normal [facility] Comprehensive metabolic 2000 panelon 04-01-2023 Albumin [Mass/Vol] 3.8 g/dL Low 3.9-4.9 [facility] Comment on above: Order Comment: Speci men Type: BLOOD SPECIMENOrdering Facility: [facility] Address: [address] [place] [address] Performed By: #### 2 4323-8 ####[facility] LABCLIA [id number] [place] [address] [place] ALP [Catalytic activity/Vol] 154 U/L High 38-113 [facility] Comment on above: Order Comment: Speci men Type: BLOOD SPECIMENOrdering Facility: [facility] Address: [address] [place] [address] Performed By: #### 2 4323-8 ####[facility] LABCLIA [id number] [place] [address] [place] ALT [Catalytic activity/Vol] 65 U/L High 10-54 [facility] Comment on above: Order Comment: Speci men Type: BLOOD SPECIMENOrdering Facility: [facility] Address: [address] [place] [address] Performed By: #### 2 4323-8 ####[facility] LABCLIA [id number] [place] [address] [place] Anion gap [Moles/Vol] 10 mmol/L Normal 9-18 [facility] Comment on above: Order Comment: Speci men Type: BLOOD SPECIMENOrdering Facility: [facility] Address: [address] [place] [address] Performed By: #### 2 4323-8 ####[facility] LABCLIA [id number] [place] [address] [place] AST [Catalytic activity/Vol] 51 U/L High 14-40 [facility] Comment on above: Order Comment: Speci men Type: BLOOD SPECIMENOrdering Facility: [facility] Address: [address] [place] [address] Performed By: #### 2 4323-8 ####[facility] LABCLIA [id number] [place] [address] [place] Bilirubin [Mass/Vol] 0.2 mg/dL Normal 0.2-1.3 [facility] Comment on above: Order Comment: Speci men Type: BLOOD SPECIMENOrdering Facility: [facility] Address: [address] [place] [address] Performed By: #### 2 4323-8 ####[facility] LABCLIA [id number] [place] [address] [place] Calcium [Mass/Vol] 9.1 mg/dL Normal 8.5-10.2 [facility] Comment on above: Order Comment: Speci men Type: BLOOD SPECIMENOrdering Facility: [facility] Address: [address] [place] [address] Performed By: #### 2 4323-8 ####[facility] LABCLIA [id number] [place] [address] [place] Chloride [Moles/Vol] 99 mmol/L Normal 97-105 [facility] Comment on above: Order Comment: Speci men Type: BLOOD SPECIMENOrdering Facility: [facility] Address: [address] [place] [address] Performed By: #### 2 4323-8 ####[facility] LABCLIA [id number] [place] [address] [place] CO2 [Moles/Vol] 24 mmol/L Normal 22-30 [facility] Comment on above: Order Comment: Speci men Type: BLOOD SPECIMENOrdering Facility: [facility] Address: [address] [place] [address] Performed By: #### 2 4323-8 ####[facility] LABCLIA [id number] [place] [address] [place] Creatinine [Mass/Vol] 1.23 mg/dL High 0.73-1.22 [facility] Comment on above: Order Comment: Speci men Type: BLOOD SPECIMENOrdering Facility: [facility] Address: [address] [place] [address] Performed By: #### 2 4323-8 ####[facility] LABCLIA [id number] [place] [address] [place] Creatinine and Glomerular filtration rate.predicted panel (S/P/Bld) 58 mL/min/1.73m??? Low >=60 [facility] Comment on above: Order Comment: Speci men Type: BLOOD SPECIMENOrdering Facility: [facility] Address: [address] [place] [address] Result Comment: Birgit mated Glomerular Filtration Rate (eGFR) is calculated using the 2020 CKD-EPI creatinine equation. This equation utilizes serum creatinine, sex, and age as parameters. The creatinine assay has traceable calibration to isotope dilution-mass spectrometry. Refer to KDIGO guidelines for clinical interpretation. In patients with unstable renal function, e.g. those with acute kidney injury, the eGFR may not accurately reflect actual GFR. Performed By: #### 2 4323-8 ####[facility] LABCLIA [id number] [place] [address] [place] Glucose [Mass/Vol] 96 mg/dL Normal 74-99 [facility] Comment on above: Order Comment: Blair kirk Type: BLOOD SPECIMENOrdering Facility: [facility] Address: [address] [place] [address] Result Comment: The [place] [employer] (ADA) provides guidance for cutoff values for fasting glucose and random glucose. The ADA defines fasting as no caloric intake for at least 8 hours. Fasting plasma glucose results between 100 to 125 mg/dL indicate increased risk for diabetes (prediabetes). Fasting plasma glucose results greater than or equal to 126 mg/dL meet the criteria for diagnosis of diabetes. In the absence of unequivocal hyperglycemia, results should be confirmed by repeat testing. In a patient with classic symptoms of hyperglycemia or hyperglycemic crisis, random plasma glucose results greater than or equal to 200 mg/dL meet the criteria for diagnosis of diabetes. Reference: Standards of Medical Care in Diabetes 2016, [place] [employer]. Diabetes Care. 2016.39(Suppl 1). Performed By: #### 2 4323-8 ####[facility] LABCLIA [id number] [place] [address] [place] Potassium [Moles/Vol] 4.9 mmol/L Normal 3.7-5.1 [facility] Comment on above: Order Comment: Blair kirk Type: BLOOD SPECIMENOrdering Facility: [facility] Address: [address] [place] [address] Performed By: #### 2 4323-8 ####[facility] LABCLIA [id number] [place] [address] [place] Protein [Mass/Vol] 7.0 g/dL Normal 6.3-8.0 [facility] Comment on above: Order Comment: Speci men Type: BLOOD SPECIMENOrdering Facility: [facility] Address: [address] [place] [address] Performed By: #### 2 4323-8 ####[facility] LABCLIA [id number] [place] [address] [place] Sodium [Moles/Vol] 133 mmol/L Low 136-144 [facility] Comment on above: Order Comment: Speci men Type: BLOOD SPECIMENOrdering Facility: [facility] Address: [address] [place] [address] Performed By: #### 2 4323-8 ####[facility] LABCLIA [id number] [place] [address] [place] Urea nitrogen [Mass/Vol] 26 mg/dL High 9-24 [facility] Comment on above: Order Comment: Speci men Type: BLOOD SPECIMENOrdering Facility: [facility] Address: [address] [place] [address] Performed By: #### 2 4323-8 ####[facility] LABCLIA [id number] [place] [address] [place] UA DIP, URINE (POC)on 2022 BILIRUBIN UA (POCT) Negative Negative [facility] CLARITY UA (POCT) Cloudy [facility] COLOR UA (POCT) Yellow [facility] GLUCOSE UA (POCT) Negative Negative mg/dL [facility] Hemoglobin Ql (U) Moderate Abnormal Negative [facility] KETONE UA (POCT) Negative Negative mg/dL [facility] LEUKOCYTES UA (POCT) Small Abnormal Negative [facility] NITRITE UA (POCT) Negative Negative [facility] PH UA (POCT) 5.5 4.5 - 8.0 [facility] Protein Ql (U) 30 mg/dL Abnormal Negative mg/dL [facility] SPECIFIC GRAVITY UA (POCT) 1.020 1.005 - 1.030 [facility] UROBILINOGEN UA (POCT) 0.2 E.U./dL Normal E.U./dL [facility] CBC W Auto Differential pane l (Bld)on 01-29-2023 Basophils (Bld) [#/Vol] 0.04 10*3/uL <0.11 k/uL [facility] Basophils/100 WBC (Bld) 0.5 % [facility] Differential cell count method Nom (Bld) Auto [facility] Eosinophils (Bld) [#/Vol] 0.04 10*3/uL <0.46 k/uL [facility] Eosinophils/100 WBC (Bld) 0.5 % [facility] Erythrocyte distribution width (RBC) [Ratio] 13.7 % 11.5 - 15.0 % [facility] Hematocrit (Bld) [Volume fraction] 38.3 % Low 39.0 - 51.0 % [facility] Hemoglobin (Bld) [Mass/Vol] 12.9 g/dL Low 13.0 - 17.0 g/dL [facility] Immature granulocytes (Bld) [#/Vol] 0.03 10*3/uL <0.10 k/uL [facility] Immature granulocytes/100 WBC (Bld) 0.4 % [facility] Lymphocytes (Bld) [#/Vol] 2.13 10*3/uL 1.00 - 4.00 k/uL [facility] Lymphocytes/100 WBC (Bld) 25.9 % [facility] MCH (RBC) [Entitic mass] 32.6 pg 26.0 - 34.0 pg [facility] MCHC (RBC) [Mass/Vol] 33.7 g/dL 30.5 - 36.0 g/dL [facility] MCV (RBC) [Entitic vol] 96.7 fL 80.0 - 100.0 fL [facility] Monocytes (Bld) [#/Vol] 0.76 10*3/uL <0.87 k/uL [facility] Monocytes/100 WBC (Bld) 9.2 % [facility] Neutrophils (Bld) [#/Vol] 5.23 10*3/uL 1.45 - 7.50 k/uL [facility] Neutrophils/100 WBC (Bld) 63.5 % [facility] Nucleated RBC (Bld) [#/Vol] <0.01 k/uL [facility] Nucleated RBC/100 WBC (Bld) [Ratio] 0.0 /100 WBC [facility] Platelet mean volume (Bld) [Entitic vol] 9.9 fL 9.0 - 12.7 fL [facility] Platelets (Bld) [#/Vol] 320 10*3/uL 150 - 400 k/uL [facility] RBC (Bld) [#/Vol] 3.96 10*6/uL Low 4.20 - 6.0 0 m/uL [facility] WBC (Bld) [#/Vol] 8.23 10*3/uL 3.70 - 11. 00 k/uL [facility] Comprehensive metabolic 2000 panelon 01-29-2023 Albumin [Mass/Vol] 4.3 g/dL 3.9 - 4.9 g/dL [facility] ALP [Catalytic activity/Vol] 151 U/L High 38 - 113 U/L [facility] ALT [Catalytic activity/Vol] 25 U/L 10 - 54 U/L [facility] Anion gap [Moles/Vol] 15 mmol/L 9 - 18 mmol/L [facility] AST [Catalytic activity/Vol] 25 U/L 14 - 40 U/L [facility] Bilirubin [Mass/Vol] 0.9 mg/dL 0.2 - 1.3 mg/dL [facility] Calcium [Mass/Vol] 9.8 mg/dL 8.5 - 10. 2 mg/dL [facility] Chloride [Moles/Vol] 96 mmol/L Low 97 - 105 mmol/L [facility] CO2 [Moles/Vol] 20 mmol/L Low 22 - 30 mmol/L [facility] Creatinine [Mass/Vol] 1.89 mg/dL High 0.73 - 1.22 mg/dL [facility] Estimated Glomerular Filtration Rate 34 mL/min/1.73m Low >=60 mL/min/1.73m [facility] Glucose [Mass/Vol] 112 mg/dL High 74 - 99 mg/dL [facility] Potassium [Moles/Vol] 3.6 mmol/L Low 3.7 - 5.1 mmol/L [facility] Protein [Mass/Vol] 8.2 g/dL High 6.3 - 8.0 g/dL [facility] Sodium [Moles/Vol] 131 mmol/L Low 136 - 144 mmol/L [facility] Urea nitrogen [Mass/Vol] 32 mg/dL High 9 - 24 mg/dL [facility] XR ABDOMEN 1V SUPINEon 01-29 [facility] XR Abdomen Supine and Uprigh ton 01-29-2023 IMPRESSION: Borderli ne small bowel dilatation. Gas visualized throughout the colon. Findings may be due to ileus. Drama Director: NICHO Transcribe Date/Time: Jan 29 2023 3:54P Dictated by : CINDY VILLASEÑOR MD This examination was interpreted and the report reviewed and electronically signed by: CINDY VILLASEÑOR MD on Jan 29 2023 4:00PM EST DIVISION OF RADIOLOGY * * *Final Report* * * DATE OF EXAM: Jan 29 2023 3:08PM WOX [id number] - XR ABDOMEN 1V SUPINE / PROCEDURE REASON: Nausea * * * * Physician Interpretation * * * * Indication: Nausea Comparison: None 2 supine x-rays of the abdomen are obtained. There is borderline small bowel dilatation. Gas is visualized throughout the colon. There is no hepatomegaly or splenomegaly. Calcified phleboliths in the pelvis. There are no acute osseous abnormalities. Degenerative disease of the lumbar spine. Vascular calcifications are noted. DIVISION OF RADIOLOGY Provider, [facility] - 01/29/2023 * * *Final Report* * * DATE OF EXAM: Jan 29 2023 3:08PM WOX [id number] - XR ABDOMEN 1V SUPINE / PROCEDURE REASON: Nausea * * * * Physician Interpretation * * * * Indication: Nausea Comparison: None 2 supine x-rays of the abdomen are obtained. There is borderline small bowel dilatation. Gas is visualized throughout the colon. There is no hepatomegaly or splenomegaly. Calcified phleboliths in the pelvis. There are no acute osseous abnormalities. Degenerative disease of the lumbar spine. Vascular calcifications are noted. IMPRESSION IMPRESSION: Borderline small bowel dilatation. Gas visualized throughout the colon. Findings may be due to ileus. Drama Director: NICHO Transcribe Date/Time: Jan 29 2023 3:54P Dictated by : CINDY VILLASEÑOR MD This examination was interpreted and the report reviewed and electronically signed by: CINDY VILLASEÑOR MD on Jan 29 2023 4:00PM EST [facility] Radiology Study observation (narrative) [facility] XR Abdomen Supine and Uprigh tOrdered By: [facility] Provider on 01-29-2023 [facility] Basic metabolic 2000 panelon 12-28-2022 Anion gap [Moles/Vol] 13 mmol/L Normal 9-18 [facility] Comment on above: Order Comment: Speci men Type: BLOOD SPECIMEN [facility] Address: [address] [place] [address] Performed By: #### 2 4321-2 #### [facility] CLIA [id number] [address] [place] [address] [place] Calcium [Mass/Vol] 9.5 mg/dL Normal 8.5-10.2 [facility] Comment on above: Order Comment: Speci men Type: BLOOD SPECIMEN [facility] Address: [address] [place] [address] Performed By: #### 2 4321-2 #### [facility] CLIA [id number] [address] [place] [address] [place] Chloride [Moles/Vol] 93 mmol/L Low 97-105 [facility] Comment on above: Order Comment: Speci men Type: BLOOD SPECIMEN [facility] Address: [address] [place] [address] Performed By: #### 2 4321-2 #### [facility] CLIA [id number] [address] [place] [address] [place] CO2 [Moles/Vol] 26 mmol/L Normal 22-30 [facility] Comment on above: Order Comment: Speci men Type: BLOOD SPECIMEN [facility] Address: [address] [address] Performed By: #### 2 4321-2 #### [facility] CLIA [id number] [address] [place] [address] [place] Creatinine [Mass/Vol] 1.17 mg/dL Normal 0.73-1.22 [facility] Comment on above: Order Comment: Speci men Type: BLOOD SPECIMEN [facility] Address: [address] [address] Performed By: #### 2 4321-2 #### [facility] CLIA [id number] [address] [place] [address] [place] ESTIMATED GLOMERULAR FILTRATION RATE 61 mL/min/1.73m??? Normal >=60 [facility] Comment on above: Order Comment: Blair kirk Type: BLOOD SPECIMEN [facility] Address: [address] [place] [address] Result Comment: Birgit mated Glomerular Filtration Rate (eGFR) is calculated using the 2020 CKD-EPI creatinine equation. This equation utilizes serum creatinine, sex, and age as parameters. The creatinine assay has traceable calibration to isotope dilution-mass spectrometry. Refer to KDIGO guidelines for clinical interpretation. In patients with unstable renal function, e.g. those with acute kidney injury, the eGFR may not accurately reflect actual GFR. Performed By: #### 2 4321-2 #### [facility] CLIA [id number] [address] [place] [address] [place] Glucose [Mass/Vol] 109 mg/dL High 74-99 [facility] Comment on above: Order Comment: Speci yelena Type: BLOOD SPECIMEN [facility] Address: [address] [place] [address] Result Comment: The [place] [employer] (ADA) provides guidance for cutoff values for fasting glucose and random glucose. The ADA defines fasting as no caloric intake for at least 8 hours. Fasting plasma glucose results between 100 to 125 mg/dL indicate increased risk for diabetes (prediabetes). Fasting plasma glucose results greater than or equal to 126 mg/dL meet the criteria for diagnosis of diabetes. In the absence of unequivocal hyperglycemia, results should be confirmed by repeat testing. In a patient with classic symptoms of hyperglycemia or hyperglycemic crisis, random plasma glucose results greater than or equal to 200 mg/dL meet the criteria for diagnosis of diabetes. Reference: Standards of Medical Care in Diabetes 2016, [place] [employer]. Diabetes Care. 2016.39(Suppl 1). Performed By: #### 2 4321-2 #### [facility] CLIA [id number] [address] [place] [address] [place] Potassium [Moles/Vol] 3.3 mmol/L Low 3.7-5.1 [facility] Comment on above: Order Comment: Speci men Type: BLOOD SPECIMEN [facility] Address: [address] [place] [address] Performed By: #### 2 4321-2 #### [facility] CLIA [id number] [address] Sodium [Moles/Vol] 132 mmol/L Low 136-144 [facility] Comment on above: Order Comment: Speci men Type: BLOOD SPECIMEN [facility] Address: [address] [place] [address] Performed By: #### 2 4321-2 #### [facility] CLIA [id number] [address] Urea nitrogen [Mass/Vol] 20 mg/dL Normal 9-24 [facility] Comment on above: Order Comment: Speci men Type: BLOOD SPECIMEN [facility] Address: [address] [place] [address] Performed By: #### 2 4321-2 #### [facility] CLIA [id number] [address] OF [facility] CNDSon 12-28-2022 CNDS HNO ID: [id number] Author: Maddi France DO Service: Hospital Medicine Author Type: Physician Type: Discharge Summary Filed: 12/28/2022 1:43 PM Note Text: DISCHARGE SUMMARY PATIENT NAME: Atif Colón Code Status: Not on file Highest Readmission Risk Score: 26 The 30 day readmissions risk score is derived from an internally validated risk model which evaluates patient level characteristics, utilization history, medication orders and lab results up until the day of discharge. Patients with a score of 40 or above are considered highest risk for readmission. Specific patient level drivers will be listed at the bottom of the summary. Admission Information Admission Information ADMIT DATE: 12/24/2022 DISCHARGE DATE: December 28, 2022 MY DOCTORS AND MEDICAL TEAM: [facility] Doctor: Maddi France DO Primary Care Provider: Jordan Johnson MD My Medical Team Members: Treatment Team: Attending Provider: Maddi France DO Consulting: Vashti Motley MD, PhD Primary Service: SATISH JONES ROXIE MY CONDITION AT DISCHARGE: Stable REASON I WAS IN THE HOSPITAL: Fall, N/V SUMMARY OF WHAT HAPPENED WHILE I WAS IN THE HOSPITAL: Patient was admitted for Fall, N/V. This is an 87-year-old male PMH BPH, CKD stage III, HTN, EDUAR who presents for trauma work-up after mechanical fall from [facility].He was assessed by trauma who did not have any indication for further trauma work-up treatment. On CT brain 12/24/2022 at 1420 alleged findings of small area of left thalamic hemorrhage without edema or mass. This was evaluated by neurology ICU recommended repeat CT head and neurosurgical consultation.. Neurosurgery recommending MRI of the brain. He was seen by PT who recommended home physical therapy. An MRI was performed that did not show any acute pathologic etiology. Some changes consistent with aging including volume loss and mild chronic small vessel ischemic changes. This was discussed with the patient's daughter who is his healthcare ocean [employer] representative. 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 Repeat CT shows no evidence of acute intracranial hemorrhage -Follow-up MRI: no acute process: No evidence of an acute intracranial infarction. Volume loss and mild chronic small vessel ischemic changes. No pathologic enhancement. -XR pelvis requested from MRI team to evaluate penile implant- no evidence of implant #HTN -Amlodipine 2.5 mg daily, lisinopril 40mg daily #sinus tachycardia -no clear reason for this at this time -carvedilol 6.25mg bid and op follow up #BPH -Doxazosin 4 mg daily, finasteride 5 mg daily #Hyponatremia Worse with IVF, improved on diuretics -resume furosemide 40mg PO daily -stop NS #HFpEF chronic -Furosemide 40 mg daily #acute delirium ?underlying dementia that is undiagnosed -discharge to home -melatonin -UA negative OTHER PROBLEMS/DIAGNOSIS: Principal Problem (Resolved): Brain bleed (HCC) Active Problems: Delirium Resolved Problems: Intraparenchymal hemorrhage of brain (HCC) OPERATIONS PERFORMED WHILE IN THE HOSPITAL: IMPORTANT TEST/PROCEDURES: CT Scan MRI TEST RESULTS NOT AVAILABLE AT THIS TIME: No pending results Discharge Disposition Home with Home Health Care Activity When You Leave the Hospital Activity Resume pre-hospital activity Diet Instructions Diet Resume pre-hospital diet Advance diet as tolerated Follow Up Appointments Follow-Up Appointment When: In 1 week Patient/Parents to call for appointment?: Yes Jordan Johnson MD [phone] [address] [place] [address] PCP Requested Referral Follow-Up Appointment When: In 1 week Patient/Parents to call for appointment?: Yes Lorraine Carvalho MD [phone] [address] [place] [address] PCP Requested Referral Additional Provider to Provider Information: Treatment Team: Attending Provider: Maddi France DO Consulting: Vashti Motley MD, PhD Primary Service: SATISH JONES [facility] Critical Issues: LABS AND PROCEDURES PENDING AT DISCHARGE: No pending results. FOLLOW-UP APPOINTMENTS ALREADY SCHEDULED WITH A [facility] PROVIDER: Future Appointments Date Time Provider Department Center 06/21/2023 1:20 PM Fabby Moore APRN.PHARMACY ANALYST [facility] Allergen Reactions Aspirin GI Upset Penicillins Rash DISCHARGE MEDICATION: Medication List START taking these medications carvedilol 6.25 mg tablet Commonly known as: COREG Take 1 tablet by mouth twice daily with meals. promethazine 25 mg table (more content not included)... [facility] NURSING PROGon 12-28-2022 NURSING PROG HNO ID: [id number] Author: Izabela Douglas RN Service: Nursing Author Type: Registered Nurse Type: Nursing Progress Note Filed: 12/28/2022 12:01 PM Note Text: Other: Patient's daughter Sindy called for an update and requested that the neurosurg team contact her and discuss the results of his MRI> message sent via The Author [employer]. [facility] ALLIED HEALTHon 12-27-2022 ALLIED HEALTH HNO ID: [id number] Author: Jose Cortez RT(R) Service: ? Author Type: Technologist Type: Allied Health Filed: 12/27/2022 2:37 PM Note Text: Radiology Service Progress Note DATE OF SERVICE: December 27, 2022 TIME: 2:18 PM PATIENT IDENTITY VERIFICATION COMPLETED USING TWO (2) STANDARD IDENTIFIERS: Name and Date of confirmed by patient verbally and Name and Date of confirmed by identification band. FALL SCREENING: Has the patient had 2 falls in the last year or 1 fall with injury or currently using an Ambulatory Assistive Device (Walker, Cane, Wheelchair, Crutches, etc.)? Inpatient: Screened on floor PATIENT GENDER DATA: Male PATIENT RELEVANT IMPLANT DATA REVIEWED: Yes ALLERGIES: Reviewed and unchanged CONTRAST ALLERGY: NO. EXAM: MRI - CONTRAST TYPE: GROUP II PERIPHERAL IV DATA: Inpatient - refer to LDA documentation RADIOLOGY DEPARTMENT: MR; Exam(s) Completed: Head: Routine Brain SIGNATURE: Jose Cortez RT(R) PATIENT NAME: Atif Colón DATE: December 27, 2022 TIME: 2:18 PM Normal [facility] Basic metabolic 2000 panelon 12-27-2022 Anion gap [Moles/Vol] 13 mmol/L Normal -18 [facility] Comment on above: Order Comment: Speci men Type: BLOOD SPECIMEN [facility] Address: [address] [address] Performed By: #### 2 4321-2 #### [facility] CLIA [id number] [address] [place] [address] [place] [facility] Calcium [Mass/Vol] 9.4 mg/dL Normal 8.5-10.2 [facility] Comment on above: Order Comment: Speci men Type: BLOOD SPECIMEN [facility] Address: [address] [place] [address] Performed By: #### 2 4321-2 #### [facility] CLIA [id number] 1 [place] [address] [place] Chloride [Moles/Vol] 98 mmol/L Normal 97-105 [facility] Comment on above: Order Comment: Speci men Type: BLOOD SPECIMEN [facility] Address: [address] [address] Performed By: #### 2 4321-2 #### [facility] CLIA [id number] [address] [place] [address] CO2 [Moles/Vol] 24 mmol/L Normal 22-30 [facility] Comment on above: Order Comment: Speci men Type: BLOOD SPECIMEN [facility] Address: [address] [address] Performed By: #### 2 4321-2 #### [facility] CLIA [id number] [address] [place] Creatinine [Mass/Vol] 1.20 mg/dL Normal 0.73-1.22 [facility] Comment on above: Order Comment: Speci men Type: BLOOD SPECIMEN [facility] Address: [address] [place] [address] Performed By: #### 2 4321-2 #### [facility] CLIA [id number] [address] ESTIMATED GLOMERULAR FILTRATION RATE 59 mL/min/1.73m??? Low >=60 [facility] Comment on above: Order Comment: Speci men Type: BLOOD SPECIMEN [facility] Facility: [facility] Address: [address] [place] [address] Result Comment: Birgit mated Glomerular Filtration Rate (eGFR) is calculated using the 2020 CKD-EPI creatinine equation. This equation utilizes serum creatinine, sex, and age as parameters. The creatinine assay has traceable calibration to isotope dilution-mass spectrometry. Refer to KDIGO guidelines for clinical interpretation. In patients with unstable renal function, e.g. those with acute kidney injury, the eGFR may not accurately reflect actual GFR. Performed By: #### 2 4321-2 #### [facility] CLIA [id number] [address] [place] Glucose [Mass/Vol] 103 mg/dL High 74-99 [facility] Comment on above: Order Comment: Speci men Type: BLOOD SPECIMEN [facility] Address: [address] [place] [address] Result Comment: The [place] [employer] (ADA) provides guidance for cutoff values for fasting glucose and random glucose. The ADA defines fasting as no caloric intake for at least 8 hours. Fasting plasma glucose results between 100 to 125 mg/dL indicate increased risk for diabetes (prediabetes). Fasting plasma glucose results greater than or equal to 126 mg/dL meet the criteria for diagnosis of diabetes. In the absence of unequivocal hyperglycemia, results should be confirmed by repeat testing. In a patient with classic symptoms of hyperglycemia or hyperglycemic crisis, random plasma glucose results greater than or equal to 200 mg/dL meet the criteria for diagnosis of diabetes. Reference: Standards of Medical Care in Diabetes 2016, [place] [employer]. Diabetes Care. 2016.39(Suppl 1). Performed By: #### 2 4321-2 #### [facility] CLIA [id number] [address] [place] Potassium [Moles/Vol] 3.4 mmol/L Low 3.7-5.1 [facility] Comment on above: Order Comment: Blair kirk Type: BLOOD SPECIMEN [facility] Facility: [facility] Address: [address] [place] [address] Performed By: #### 2 4321-2 #### [facility] CLIA [id number] [address] STATES OF [facility] Sodium [Moles/Vol] 135 mmol/L Low 136-144 [facility] Comment on above: Order Comment: Blair kirk Type: BLOOD SPECIMEN Ordering Facility: [facility] Address: [address] [place] [address] Performed By: #### 2 4321-2 #### [facility] CLIA [id number] [address] [place] Urea nitrogen [Mass/Vol] 20 mg/dL Normal 9-24 [facility] Comment on above: Order Comment: Jaylini men Type: BLOOD SPECIMEN Ordering Facility: [facility] Address: [address] [place] [address] Performed By: #### 2 4321-2 #### [facility] CLIA [id number] [address] OF [facility] CASE MANAGEMon 12-27-2022 CASE MANAGEM HNO ID: [id number] Author: Rajni Cha LSW Service: ? Author Type: Table Inspector Type: Care Mgt Progress Note Filed: 12/27/2022 12:05 PM Note Text: CARE MANAGEMENT PROGRESS NOTE SERVICE DATE: 12/27/2022 SERVICE TIME: 12:02 PM LOS: 0 days SW reviewed chart and last CM note. Pt is being recommended for home PT. Prior HC referrals were denied. SW sent multiple referrals, including [facility]. [facility] has accepted. Pt has had a change in MS overnight. If Pt remains appropriate for HC at dc, [facility] is able to accept. Pt scheduled for MRI today. CM to follow for dc planning. SIGNATURE: KADEN Huynh PATIENT NAME: Atif Colón DATE: December 27, 2022 TIME: 12:02 PM PAGER/CONTACT #: [phone] Normal [facility] MRI BRAIN WO/W IVCONon 12-27 MRI BRAIN WO/W IVCON * * *Final Report* * * DATE OF EXAM: Dec 27 2022 2:45PM [facility] 0295 - MRI BRAIN WO/W IVCON / PROCEDURE REASON: Stroke, hemorrhagic * * * * Physician Interpretation * * * * EXAMINATION: MRI BRAIN WO/W IVCON CLINICAL HISTORY: Altered level of consciousness. TECHNIQUE: Routine brain MRI protocol without and with contrast including diffusion images. MQ: MRBWOW_2 Contrast: 16 mL Dotarem IV COMPARISON: Noncontrast CT brain from 12/25/2022 RESULT: Acute Change: There is no evidence of restricted diffusion to suggest an acute infarct. Hemorrhage: No evidence of prior parenchymal hemorrhage on the gradient echo images. Mass Lesion/ Mass Effect: No evidence of an intracranial mass or extra-axial fluid collection. No abnormal parenchymal or leptomeningeal enhancement is noted following contrast administration. No significant mass effect. Chronic Change: Scattered patchy areas of increased T2 and FLAIR signal are present in the supratentorial white matter which is a nonspecific finding but likely represents mild chronic microvascular ischemia. Parenchyma: There is a cavum septum pellucidum. There is moderate generalized parenchymal volume loss. The brain parenchyma is otherwise within normal limits of signal intensity and morphology. Ventricles: Normal caliber and morphology. Skull Base: Hypothalamic and pituitary region are grossly normal. Craniocervical junction is normal. No significant marrow replacement process. Vasculature: Major intracranial arterial structures, and dural venous sinuses show typical flow void, suggesting patency by spin echo criteria. Other: There is a 2 cm retention cyst in the inferior aspect of the right frontal sinus. The paranasal sinuses and mastoid air cells are otherwise grossly clear. Bilateral cataract surgeries. The orbits and extracranial soft tissues are unremarkable. IMPRESSION: No evidence of an acute intracranial infarction. Volume loss and mild chronic small vessel ischemic changes. No pathologic enhancement. Drama Director: PSCB Transcribe Date/Time: Dec 27 2022 3:04P Dictated by : DEBI ROLON MD This examination was interpreted and the report reviewed and electronically signed by: DEBI ROLON MD on Dec 27 2022 3:11PM EST [id number] Normal [facility] THERAPY NTon 12-27-2022 THERAPY NT HNO ID: [id number] Author: Maryjo Carrillo OTR/L Service: Occupational Therapy Author Type: Occupational Therapist Type: Therapy (PT/OT/Speech/Resp) Filed: 12/27/2022 1:44 PM Note Text: Occupational Therapy Evaluation SERVICE DATE: 12/27/2022 SERVICE TIME: 1310 to 1334 ROOM: [place] [address] Recommended Discharge Disposition: Home OT Recommended Discharge Disposition Comments: encourage increased assistance from family Anticipated Discharge Needs: Physical Assist at Home, Supervision at Home Physical Assist at Home for: Cleaning, Laundry, Meals, Self Care, Shopping, Transportation, Safety Supervision at Home due to: Decreased safety awareness OT 6 Clicks Score: 19 Precautions/Activity Restrictions: Fall Risk, Bed/Chair Alarm Current Hospital Course: 87 y.o male s/p GLF resulting in small L side thalamic hemorrhage Reason for Hospital Admission: GLF Relevant Past Medical History: CKD3, HTN, OA Response to Therapy Interventions: Good Participation in Activities Continued Skilled Needs Due to: Functional Impairment, Safety Concerns Occupational Therapy Problem List: Impaired Self Care, Safety Deficits, Decreased Activity Tolerance, Decreased Strength, Functional Mobility Impairment, Balance Impaired Cognition/Communication Deficits Responsiveness: Alert Follows Commands: 2-step Commands Memory Deficits: Short Term Executive Function Deficits: Safety Awareness, Insight to Deficits Insight to Deficits: Minimal impairment Safety Awareness Deficit: Minimal impairment Cognitive Clinical Tests and Screens: 4AT Screening 4AT Screening Assess Alertness: Your observation to asses for excessive drowsiness or agitation. If asleep, attempt to wake with speech or gentle touch on shoulder. You may ask the patient to state their name and address to assist rating.: Normal (fully alert, but not agitated, throughout assessment) Assess orientation: Ask patient age, date of , current year, and current location: No mistakes Asess Attention: Ask patient to tell me the months of the year backwards order, starting with May : Able to state 7+ months correctly Evidence of acute changes or fluctuating mental status (changes in memory, alertness) or behavior (paranoia, hallucinations) in last 2 weeks: No 4AT Score: 0 Delirium Positive/Negative: Negative Treatment Interventions: Education, Self Care/Home Management, Energy Conservation Training, Strengthening, Functional Mobility Training, Balance Training Plan for Next Visit: Bathing Training, Dressing Training Home Environment Patient Lives With: Spouse Assistance Available: 24-Hour Entry To Home: No Stairs Number Of Stairs To Bed/Bath: 0 Tub/Shower Type: walk in shower with seat and grab bars Laundry: in apartment, patient and spouse split Equipment Owned: Walker- Wheeled, Cane, Shower Chair, Grab Bars- Shower Prior Functional Level: Within Functional Limits Prior Functional Level Comments: Patient reports ambulating with a cane, independent with ADLs, drives, normally sleeps in recliner at home. Son was living with patient and spouse, however able to stop by frequently to assist when needed. Baseline Cognition: Oriented to self, Oriented to place, Oriented to time, Oriented to situation Current and/or Former Occupation: worked for the [employer] for 44 years Occupational Factors Life Roles: Retired, Spouse/Significant Other, Family Member, Friend Identified Strengths: Good Support System Subjective: agreeable to session CURRENT FUNCTIONAL STATUS: Most recent performance Current Activities of Daily Living Assist Level Additional Information Feeding Set Up Grooming Stand By Assistance Bathing Upper Body Minimal Assistance Bathing Lower Body Minimal Assistance Dressing Upper Body Minimal Assistance Dressing Lower Body Minimal Assistance Toileting Contact Guard Assistance Assisted with yeni care in bathroom. Functional Mobility Assist Level Additional Information Rolling Supine to Sit Minimal Assistance Min direction to move each LE closer to the side of bed while engaging the core in order to sit upright. Provided increased time due to weakness. Sit to Supine Scooting Minimal Assistance Required the use of sheet to help get patient's feet on the floor. Sit to Stand Contact Guard Assistance Cues for hand placement Stand to Sit Contact Guard Assistance Min direction for good eccentric control. Bed to Chair Toilet/Commode Contact Guard Assistance Min direction for hand and body placement and safety with use of grab bar. Shower Functional Mobility Contact Guard Assistance, Additional Information Cane functional mobility to bathroom and back Educated on safety and fall prevention, provided increased time. Instructed patient on the benefit and value of receiving continued OT services at d/c to increased independence with self care and functional transfers. Blank malave (more content not included)... Normal [facility] Urinalysis complete panel (U )on 12-27-2022 Bilirubin Ql (U) Negative Normal Negative [facility] Comment on above: Order Comment: Speci men Type: URINE SPECIMEN Ordering Facility: [facility] Address: [address] [place] [address] Performed By: #### 2 4356-8 #### [facility] CLIA [id number] [address] [place] [address] Clarity (Unsp spec) Clear Normal Clear [facility] Comment on above: Order Comment: Speci men Type: URINE SPECIMEN Ordering Facility: [facility] Address: [address] [place] [address] Performed By: #### 2 4356-8 #### [facility] CLIA [id number] [address] [place] [address] [place] Color (U) Colorless Normal yellow [facility] Comment on above: Order Comment: Speci men Type: URINE SPECIMEN Ordering Facility: [facility] Address: [address] [place] [address] Performed By: #### 2 4356-8 #### [facility] CLIA [id number] [address] Epithelial cells LM.HPF (Urine sed) [#/Area] Few Abnormal None Seen [facility] Comment on above: Order Comment: Speci men Type: URINE SPECIMEN Ordering Facility: [facility] Address: [address] [place] [address] Performed By: #### 2 4356-8 #### [facility] CLIA [id number] [address] Glucose Test strip (U) [Mass/Vol] Negative Normal Trace, Negative [facility] Comment on above: Order Comment: Speci men Type: URINE SPECIMEN Ordering Facility: [facility] Address: [address] [place] [address] Performed By: #### 2 4356-8 #### [facility] CLIA [id number] [address] [place] Hemoglobin Ql (U) Negative Normal Negative, Trace [facility] Comment on above: Order Comment: Speci men Type: URINE SPECIMEN Ordering Facility: [facility] Address: [address] [place] [address] Performed By: #### 2 4356-8 #### [facility] CLIA [id number] [address] Hyaline casts (Urine sed) [#/Area] 1-3 /LPF Abnormal 0 /LPF [facility] Comment on above: Order Comment: Speci men Type: URINE SPECIMEN Ordering Facility: [facility] Address: [address] [place] [address] Performed By: #### 2 4356-8 #### [facility] CLIA [id number] [address] Ketones Ql (U) Negative Normal Negative, Trace [facility] Comment on above: Order Comment: Speci men Type: URINE SPECIMEN Ordering Facility: [facility] Address: [address] [place] [address] Performed By: #### 2 4356-8 #### [facility] CLIA [id number] [address] Leukocyte esterase Test strip Ql (U) Negative Normal Negative, 25 Олег/uL [facility] Comment on above: Order Comment: Speci men Type: URINE SPECIMEN Ordering Facility: [facility] Address: [address] [place] [address] Performed By: #### 2 4356-8 #### [facility] CLIA [id number] [address] Nitrite Ql (U) Negative Normal Negative [facility] Comment on above: Order Comment: Speci men Type: URINE SPECIMEN Ordering Facility: [facility] Address: [address] [place] [address] Performed By: #### 2 4356-8 #### [facility] CLIA [id number] [address] [place] pH (U) 5.0 [pH] Normal 5.0-8.0 [facility] Comment on above: Order Comment: Speci men Type: URINE SPECIMEN Ordering Facility: [facility] Address: [address] [place] [address] Performed By: #### 2 4356-8 #### [facility] CLIA [id number] [address] Protein (U) [Mass/Vol] Negative Normal Trace, Negative [facility] Comment on above: Order Comment: Speci men Type: URINE SPECIMEN Ordering Facility: [facility] Address: [address] [place] [address] Performed By: #### 2 4356-8 #### [facility] CLIA [id number] [address] RBC LM.HPF (Urine sed) [#/Area] 0-3 /HPF Normal 0-3 /HPF [facility] Comment on above: Order Comment: Speci men Type: URINE SPECIMEN Ordering Facility: [facility] Address: [address] [place] [address] Performed By: #### 2 4356-8 #### [facility] CLIA [id number] [address] [place] Specific gravity (U) [Rel density] 1.007 Normal 1.005-1.030 [facility] Comment on above: Order Comment: Speci men Type: URINE SPECIMEN Ordering Facility: [facility] Address: [address] [place] [address] Performed By: #### 2 4356-8 #### [facility] CLIA [id number] [address] Urobilinogen Ql (U) Normal Normal Negative [facility] Comment on above: Order Comment: Speci men Type: URINE SPECIMEN Ordering Facility: [facility] Address: [address] [place] [address] Performed By: #### 2 4356-8 #### [facility] CLIA [id number] [address] WBC LM.HPF (Urine sed) [#/Area] 0-5 /HPF Normal 0-5 /HPF [facility] Comment on above: Order Comment: Speci men Type: URINE SPECIMEN Ordering Facility: [facility] Address: [address] [place] [address] Performed By: #### 2 4356-8 #### [facility] CLIA [id number] [address] ALLIED HEALTHon 12-26-2022 ALLIED HEALTH HNO ID: [id number] Author: Deirdre Amin RT(R) Service: Radiology Author Type: Technologist Type: Allied Health Filed: 12/26/2022 3:33 PM Note Text: Radiology Service Progress Note PATIENT NAME: Atif Colón DATE OF SERVICE: December 26, 2022 TIME: 3:32 PM PATIENT IDENTITY VERIFICATION COMPLETED USING TWO (2) IDENTIFIERS: Name and Date of confirmed by patient verbally and Name and Date of confirmed by identification band. FALL SCREENING: Has the patient had 2 falls in the last year or 1 fall with injury or currently using an Ambulatory Assistive Device (Walker, Cane, Wheelchair, Crutches, etc.)? Inpatient: Screened on floor PATIENT GENDER DATA: Male PATIENT RELEVANT IMPLANT DATA REVIEWED: Not Applicable RADIOLOGY DEPARTMENT: General X-ray: Exam(s) Completed: Pelvis X-Ray: Pelvis General AP PERIPHERAL IV DATA: Not applicable SIGNED BY: RT Quentin(R) December 26, 2022 3:32 PM Normal [facility] Basic metabolic 2000 panelon 12-26-2022 Anion gap [Moles/Vol] 13 mmol/L Normal 9-18 [facility] Comment on above: Order Comment: Speci men Type: BLOOD SPECIMEN Ordering Facility: [facility] Address: [address] [place] [address] Performed By: #### 2 4321-2 #### [facility] CLIA [id number] [address] [place] Calcium [Mass/Vol] 8.9 mg/dL Normal 8.5-10.2 [facility] Comment on above: Order Comment: Speci men Type: BLOOD SPECIMEN Ordering Facility: [facility] Address: [address] [place] [address] Performed By: #### 2 4321-2 #### [facility] CLIA [id number] [address] [place] Chloride [Moles/Vol] 97 mmol/L Normal 97-105 [facility] Comment on above: Order Comment: Speci men Type: BLOOD SPECIMEN Ordering Facility: [facility] Address: [address] [place] [address] Performed By: #### 2 4321-2 #### [facility] CLIA [id number] [address] [place] CO2 [Moles/Vol] 18 mmol/L Low 22-30 [facility] Comment on above: Order Comment: Speci men Type: BLOOD SPECIMEN Ordering Facility: [facility] Address: [address] [place] [address] Performed By: #### 2 4321-2 #### [facility] CLIA [id number] [address] [place] Creatinine [Mass/Vol] 0.92 mg/dL Normal 0.73-1.22 [facility] Comment on above: Order Comment: Speci men Type: BLOOD SPECIMEN Ordering Facility: [facility] Address: [address] [place] [address] Performed By: #### 2 4321-2 #### [facility] CLIA [id number] [address] [place] ESTIMATED GLOMERULAR FILTRATION RATE 82 mL/min/1.73m??? Normal >=60 [facility] Comment on above: Order Comment: Blair kirk Type: BLOOD SPECIMEN Ordering Facility: [facility] Address: [address] [place] [place] [address] Result Comment: Birgit mated Glomerular Filtration Rate (eGFR) is calculated using the 2020 CKD-EPI creatinine equation. This equation utilizes serum creatinine, sex, and age as parameters. The creatinine assay has traceable calibration to isotope dilution-mass spectrometry. Refer to KDIGO guidelines for clinical interpretation. In patients with unstable renal function, e.g. those with acute kidney injury, the eGFR may not accurately reflect actual GFR. Performed By: #### 2 4321-2 #### [facility] CLIA [id number] 1 [place] [address] [place] Glucose [Mass/Vol] 115 mg/dL High 74-99 [facility] Comment on above: Order Comment: Blair kirk Type: BLOOD SPECIMEN Ordering Facility: [facility] Address: [address] [place] [place] [address] Result Comment: The [place] Diabetes Association (ADA) provides guidance for cutoff values for fasting glucose and random glucose. The ADA defines fasting as no caloric intake for at least 8 hours. Fasting plasma glucose results between 100 to 125 mg/dL indicate increased risk for diabetes (prediabetes). Fasting plasma glucose results greater than or equal to 126 mg/dL meet the criteria for diagnosis of diabetes. In the absence of unequivocal hyperglycemia, results should be confirmed by repeat testing. In a patient with classic symptoms of hyperglycemia or hyperglycemic crisis, random plasma glucose results greater than or equal to 200 mg/dL meet the criteria for diagnosis of diabetes. Reference: Standards of Medical Care in Diabetes 2016, [place] [employer] Association. Diabetes Care. 2016.39(Suppl 1). Performed By: #### 2 4321-2 #### [facility] CLIA [id number] 1 [place] [address] [place] Potassium [Moles/Vol] Normal [facility] Comment on above: Order Comment: Blair kirk Type: BLOOD SPECIMEN Ordering Facility: [facility] Address: [address] Result Comment: Unab le to assay due to interference from hemolysis. Suggest reorder as clinically indicated. Performed By: #### 2 4321-2 #### [facility] CLIA [id number] [address] Sodium [Moles/Vol] 128 mmol/L Low 136-144 [facility] Comment on above: Order Comment: Speci men Type: BLOOD SPECIMEN Ordering Facility: [facility] Address: [address] [place] [address] Performed By: #### 2 4321-2 #### [facility] CLIA [id number] [address] Urea nitrogen [Mass/Vol] 16 mg/dL Normal 9-24 [facility] Comment on above: Order Comment: Speci men Type: BLOOD SPECIMEN Ordering Facility: [facility] Address: [address] [place] [address] Performed By: #### 2 4321-2 #### [facility] CLIA [id number] [address] CONSULT PROGon 12-26-2022 CONSULT PROG HNO ID: [id number] Author: Romain Gasca APRN.PHARMACY ANALYST Service: Neurosurgery Author Type: Nurse Practitioner Type: Consult Progress Note Filed: 12/26/2022 6:31 AM Note Text: Neurosurgery Progress Note SERVICE DATE: 12/26/2022 SUBJECTIVE: Overnight developed worsening mentation and nausea and vomiting. CT scan was stable.Patient this morning was alert and oriented x 3 OBJECTIVE: Vitals: Temp (24hrs), Av.7 ?C (98.1 ?F), Min:36.3 ?C (97.3 ?F), Max:37.5 ?C (99.5 ?F) BP 156/86 Pulse (!) 125 Temp 37.5 ?C (99.5 ?F) (Oral) Resp 18 Ht 165.1 cm (5' 5 ) Wt 79.6 kg (175 lb 7.8 oz) SpO2 95% BMI 29.20 kg/m? O2 Therapy: Room Air IANDO: Medications: Current Facility-Administered Medications Medication Dose Route Frequency lisinopril 40 mg tab(s) (ZESTRIL) 40 mg ORAL DAILY finasteride 5 mg tab(s) (PROSCAR) 5 mg ORAL DAILY amLODIPine 2.5 mg tab(s) (NORVASC) 2.5 mg ORAL DAILY ferrous sulfate 325 mg tab(s) 325 mg ORAL DAILY WITH BREAKFAST NaCl 0.9% iv flush bag 20 mL INTRAVENOUS PRN doxazosin 4 mg tab(s) (CARDURA) 4 mg ORAL DAILY pantoprazole DR 20 mg tab(s) (PROTONIX) 20 mg ORAL BID AC (0600/1600) morphine 2 mg injection 2 mg INTRAVENOUS q 4 H PRN prochlorperazine 10 mg injection (COMPAZINE) 10 mg INTRAVENOUS q 6 H PRN carvedilol 6.25 mg tab(s) (COREG) 6.25 mg ORAL BID w MEALS ondansetron (PF) 4 mg injection (ZOFRAN) 4 mg INTRAVENOUS q 6 H PRN NaCl 0.9% iv infusion 75 mL/hr INTRAVENOUS CONTINUOUS lidocaine 4 % 1 Patch (SALONPAS) 1 Patch TRANSDERMAL DAILY AT 9 PM And lidocaine patch - REMOVE OTHER DAILY And lidocaine - VERIFY PATCH OTHER q 8 H Labs: Recent Labs 12/25/22 0655 NA 133* K 3.9 CHLOR 99 CO2 20* BUN 18 CREAT 1.05 GLUC 86 ANION 14 CA 9.7 WBC 8.02 HB 12.2* HCT 36.4* PLT 271 Imaging: IMPRESSION: 1. No CT evidence of an acute intracranial process. 2. Stable exam. Hemorrhage: Stable 9 mm x 5 mm x 5 mm ovoid hyperdensity in the posterior LEFT thalamus. No evidence of acute intracranial hemorrhage. ECASS hemorrhagic transformation score: Not Applicable Drama Director: NICHO Transcribe Date/Time: Dec 26 2022 12:24A Exam: GENERAL: Nausea NEURO: Neuro : A+O x3, PERRL, makes eye contact, speech clear, cranial nerves 2-12 grossly intact , SWARTZ, strength 5/5 BUE and BLE and equal HEENT: normocephalic, atraumatic LUNGS: Unlabored breathing CARDIAC: Regular rate and rhythm as above ABDOMEN: Soft, non-tender, non-distended EXTREMITIES: SWARTZ, No deformities, No edema SKIN: Skin color, texture, turgor normal, No rashes or lesions ASSESSMENT AND PLAN: Active Hospital Problems Diagnosis Date Noted Brain bleed (HCC) 12/24/2022 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 All relevant information was reviewed and updated accordingly on 12/26/2022 SIGNATURE: Romain Gasca APRN.PHARMACY ANALYST PATIENT NAME: Atfi Colón DATE: December 26, 2022 TIME: 5:37 AM Romain Gasca APRN.PHARMACY ANALYST Pager: [phone] Neurosurgery Pager: [phone] Normal [facility] CT BRAIN WO IVCONon 12-27-[address] BRAIN WO IVCON * * *Final Report* * * DATE OF EXAM: Dec 25 2022 11:30PM [facility] 0504 - CT BRAIN WO IVCON / PROCEDURE REASON: Mental status change, unknown cause * * * * Physician Interpretation * * * * EXAMINATION: CT BRAIN WO IVCON CLINICAL HISTORY: Mental status change, unknown cause TECHNIQUE: Serial axial images without IV contrast were obtained from the vertex to the foramen magnum. MQ: CTBWO_3 CT Radiation dose: Integrated Dose-Length Product (DLP) for this visit = 759 mGy*cm CT Dose Reduction Employed: [employer] COMPARISON: CT head 12/24/[address] neck 10/18/2018 RESULT: Adjunct Business Instructor (topogram) images: No additional findings. Post-operative change: None. Acute change: No evidence of an acute infarct or other acute parenchymal process. Hemorrhage: Stable 9 mm x 5 mm x 5 mm ovoid hyperdensity in the posterior LEFT thalamus. No evidence of acute intracranial hemorrhage. ECASS hemorrhagic transformation score: Not Applicable Mass Lesion / Mass Effect: There is no evidence of an intracranial mass or extraaxial fluid collection. No significant mass effect. Chronic change: None apparent. Parenchyma: There is mild generalized volume loss. The brain parenchyma is otherwise within normal limits for age. Ventricles: Ventricular enlargement concordant with the degree of parenchymal volume loss. Paranasal sinuses and skull base: Redemonstration of well-circumscribed rounded hyperdense opacity in the RIGHT frontal sinus without fluid level or retained secretions. The visualized paranasal sinuses are otherwise clear. The skull base and imaged soft tissues are unremarkable. IMPRESSION: 1. No CT evidence of an acute intracranial process. 2. Stable exam. Drama Director: NICHO Transcribe Date/Time: Dec 26 2022 12:24A Dictated by : JESSY RUIZ MD This examination was interpreted and the report reviewed and electronically signed by: JESSY RUIZ MD on Dec 26 2022 12:36AM EST [id number] [facility] ECG COMPLETEon 12-26-2022 ECG COMPLETE Ventricular Rate : 1 05 BPM Atrial Rate : 105 BPM P-R Interval : 248 ms QRS Duration : 66 ms Q-T Interval : 326 ms QTC Calculation(Bazett) : 430 ms Calculated R Hopwood : 47 degrees Calculated T Hopwood : 36 degrees SINUS TACHYCARDIA WITH 1ST DEGREE A-V BLOCK WITH PREMATURE ATRIAL COMPLEXES BORDERLINE ECG WHEN COMPARED WITH ECG OF 25-DEC-2022 03:53, PREMATURE ATRIAL COMPLEXES ARE NOW PRESENT [place] INTERVAL HAS INCREASED Confirmed by MD ORTIZ DAVID ([id number]) on 12/29/2022 12:32:11 PM NAME : ATIF COLÓN PID : [id number] : 1935 Gender : Male Race : ORD : [id number] Procedure Date : Dec 26 2022 07:55:50 Edit Date : Dec 29 2022 12:32:12 Diagnosis: SINUS TACHYCARDIA WITH 1ST DEGREE A-V BLOCK WITH PREMATURE ATRIAL COMPLEXES BORDERLINE ECG WHEN COMPARED WITH ECG OF 25-DEC-2022 03:53, PREMATURE ATRIAL COMPLEXES ARE NOW PRESENT W[place] INTERVAL HAS INCREASED Confirmed by MD ORTIZ DAVID ([id number]) on 12/29/2022 12:32:11 PM Test Reason : Arrhythmia Location : 81 : [id number] Overread By : MD ORTIZ DAVID Edited By : MD ORTIZ DAVID Referred By : , Acquired by : JAMES ALBERTS [facility] NURSING PROGon 12-26-2022 NURSING PROG HNO ID: [id number] Author: Joann Guzman, RN Service: Nursing Author Type: Registered Nurse Type: Nursing Progress Note Filed: 12/26/2022 6:22 PM Note Text: Other: Pts daughter Sindy would like to be called and updated [phone]. Will continue to monitor. [facility] NURSING PROG HNO ID: [id number] Author: Noemy Olivares, RN Service: Nursing Author Type: Registered Nurse Type: Nursing Progress Note Filed: 12/26/2022 6:07 AM Note Text: Pt very agitated this morning. Swinging at staff. Refusing meds.Telling staff to leave him alone. Attempting to go out into halls and look for his clothes so he can get in his car. Reoriented a couple times and left to rest in recliner. Pt denying it was morning time and didn't know why he was here. Approx 1 hr later pt alert and oriented again. Apologizing for yelling. Resting in bed calmly. [facility] NURSING PROG HNO ID: [id number] Author: Noemy Olivares RN Service: Nursing Author Type: Registered Nurse Type: Nursing Progress Note Filed: 12/25/2022 11:20 PM Note Text: Pt taking IV out. New IV placed. Pt stated he is going to take it out and wants to get out of bed. Cont to vomit. Not able to tell me where he is or the year. Able to tell me the president and his name/ date. Sound and neuro made aware. New orders for stat ct, zofran, NS cont. Sitter in place. [facility] XR PELVIS 1V APon 12-26-2022 XR PELVIS 1V AP * * *Final Report* * * DATE OF EXAM: Dec 26 2022 3:36PM [id number] - XR PELVIS 1V AP / PROCEDURE REASON: Other (document in comments) * * * * Physician Interpretation * * * * EXAM TITLE: XR PELVIS 1V AP DATE: 12/26/2022 INDICATION: Evaluation for penile implant prior to MRI. COMPARISON: 08/20/2020. AP view the pelvis shows no radiopaque penile implant. No acute bony abnormality involving the bony pelvis or hips. Advanced degenerative changes in lower lumbar spine. IMPRESSION: No radiopaque penile implant identified. Drama Director: NICHO Transcribe Date/Time: Dec 27 2022 7:35A Dictated by : IZABELA BUSTAMANTE MD This examination was interpreted and the report reviewed and electronically signed by: IZABELA BUSTAMANTE MD on Dec 27 2022 7:36AM EST [id number] [facility] Basic metabolic 2000 panelon 12-25-2022 Anion gap [Moles/Vol] 14 mmol/L Normal 9-18 [facility] Comment on above: Order Comment: Speci men Type: BLOOD SPECIMEN Ordering Facility: [facility] Address: [address] [address] Performed By: #### 2 4321-2 #### [facility] CLIA [id number] 1 [place] [address] [place] Calcium [Mass/Vol] 9.7 mg/dL Normal 8.5-10.2 [facility] Comment on above: Order Comment: Speci men Type: BLOOD SPECIMEN Ordering Facility: [facility] Address: [address] [address] Performed By: #### 2 4321-2 #### [facility] CLIA [id number] 1 [place] [address] [place] Chloride [Moles/Vol] 99 mmol/L Normal 97-105 [facility] Comment on above: Order Comment: Speci men Type: BLOOD SPECIMEN Ordering Facility: [facility] Address: [address] [place] [address] Performed By: #### 2 4321-2 #### [facility] CLIA [id number] 1 [place] [address] [place] CO2 [Moles/Vol] 20 mmol/L Low 22-30 [facility] Comment on above: Order Comment: Speci men Type: BLOOD SPECIMEN Ordering Facility: [facility] Address: [address] [place] [address] Performed By: #### 2 4321-2 #### [facility] CLIA [id number] [address] [place] [address] [place] Creatinine [Mass/Vol] 1.05 mg/dL Normal 0.73-1.22 [facility] Comment on above: Order Comment: Blair kirk Type: BLOOD SPECIMEN Ordering Facility: [facility] Address: [address] [address] Performed By: #### 2 4321-2 #### [facility] CLIA [id number] [address] [place] [address] [place] ESTIMATED GLOMERULAR FILTRATION RATE 70 mL/min/1.73m??? Normal >=60 [facility] Comment on above: Order Comment: Jaylinsarthak kirk Type: BLOOD SPECIMEN Ordering Facility: [facility] Address: [address] [address] Result Comment: Birgit mated Glomerular Filtration Rate (eGFR) is calculated using the 2020 CKD-EPI creatinine equation. This equation utilizes serum creatinine, sex, and age as parameters. The creatinine assay has traceable calibration to isotope dilution-mass spectrometry. Refer to KDIGO guidelines for clinical interpretation. In patients with unstable renal function, e.g. those with acute kidney injury, the eGFR may not accurately reflect actual GFR. Performed By: #### 2 4321-2 #### [facility] CLIA [id number] [address] [place] [address] [place] Glucose [Mass/Vol] 86 mg/dL Normal 74-99 [facility] Comment on above: Order Comment: Blair kirk Type: BLOOD SPECIMEN Ordering Facility: [facility] Address: [address] [place] [address] Result Comment: The [place] Diabetes [employer] (ADA) provides guidance for cutoff values for fasting glucose and random glucose. The ADA defines fasting as no caloric intake for at least 8 hours. Fasting plasma glucose results between 100 to 125 mg/dL indicate increased risk for diabetes (prediabetes). Fasting plasma glucose results greater than or equal to 126 mg/dL meet the criteria for diagnosis of diabetes. In the absence of unequivocal hyperglycemia, results should be confirmed by repeat testing. In a patient with classic symptoms of hyperglycemia or hyperglycemic crisis, random plasma glucose results greater than or equal to 200 mg/dL meet the criteria for diagnosis of diabetes. Reference: Standards of Medical Care in Diabetes 2016, [place] [employer]. Diabetes Care. 2016.39(Suppl 1). Performed By: #### 2 4321-2 #### [facility] CLIA [id number] [address] [place] Potassium [Moles/Vol] 3.9 mmol/L Normal 3.7-5.1 [facility] Comment on above: Order Comment: Speci men Type: BLOOD SPECIMEN Ordering Facility: [facility] Address: [address] [place] [address] Performed By: #### 2 4321-2 #### [facility] CLIA [id number] [address] [place] Sodium [Moles/Vol] 133 mmol/L Low 136-144 [facility] Comment on above: Order Comment: Speci men Type: BLOOD SPECIMEN Ordering Facility: [facility] Address: [address] [place] [address] Performed By: #### 2 4321-2 #### [facility] CLIA [id number] [address] STATES OF [facility] Urea nitrogen [Mass/Vol] 18 mg/dL Normal 9-24 [facility] Comment on above: Order Comment: Speci men Type: BLOOD SPECIMEN Ordering Facility: [facility] Address: [address] [place] [address] Performed By: #### 2 4321-2 #### [facility] CLIA [id number] [address] STATES OF [facility] CBC panel Auto (Bld)on 12-25 Erythrocyte distribution width (RBC) [Ratio] 13.4 % Normal 11.5-15.0 [facility] Comment on above: Order Comment: Speci men Type: BLOOD SPECIMEN Ordering Facility: [facility] Address: [address] [place] [address] Performed By: #### 2 4321-2 #### [facility] CLIA [id number] [address] [place] Hematocrit (Bld) [Volume fraction] 36.4 % Low 39.0-51.0 [facility] Comment on above: Order Comment: Speci men Type: BLOOD SPECIMEN Ordering Facility: [facility] Address: [address] [address] Performed By: #### 2 4321-2 #### [facility] CLIA [id number] [address] Hemoglobin (Bld) [Mass/Vol] 12.2 g/dL Low 13.0-17.0 [facility] Comment on above: Order Comment: Speci men Type: BLOOD SPECIMEN Ordering Facility: [facility] Address: [address] [address] Performed By: #### 2 4321-2 #### [facility] CLIA [id number] [address] MCH (RBC) [Entitic mass] 33.3 pg Normal 26.0-34.0 [facility] Comment on above: Order Comment: Speci men Type: BLOOD SPECIMEN Ordering Facility: [facility] Address: [address] [address] Performed By: #### 2 4321-2 #### [facility] CLIA [id number] [address] MCHC (RBC) [Mass/Vol] 33.5 g/dL Normal 30.5-36.0 [facility] Comment on above: Order Comment: Speci men Type: BLOOD SPECIMEN Ordering Facility: [facility] Address: [address] [address] Performed By: #### 2 4321-2 #### [facility] CLIA [id number] [address] MCV (RBC) [Entitic vol] 99.5 fL Normal 80.0-100.0 [facility] Comment on above: Order Comment: Speci men Type: BLOOD SPECIMEN Ordering Facility: [facility] Address: [address] [place] [address] Performed By: #### 2 4321-2 #### [facility] CLIA [id number] [address] Nucleated RBC (Bld) [#/Vol] 10*3/uL Normal <0.01 [facility] Comment on above: Order Comment: Speci men Type: BLOOD SPECIMEN Ordering Facility: [facility] Address: [address] [address] Performed By: #### 2 4321-2 #### [facility] CLIA [id number] 1 [place] [address] [place] Platelet mean volume (Bld) [Entitic vol] 9.3 fL Normal 9.0-12.7 [facility] Comment on above: Order Comment: Speci men Type: BLOOD SPECIMEN Ordering Facility: [facility] Address: [address] [place] [address] Performed By: #### 2 4321-2 #### [facility] CLIA [id number] [address] [place] Platelets (Bld) [#/Vol] 271 10*3/uL Normal 150-400 [facility] Comment on above: Order Comment: Speci men Type: BLOOD SPECIMEN Ordering Facility: [facility] Address: [address] [address] Performed By: #### 2 4321-2 #### [facility] CLIA [id number] [address] [place] RBC (Bld) [#/Vol] 3.66 10*6/uL Low 4.20-6.00 [facility] Comment on above: Order Comment: Speci men Type: BLOOD SPECIMEN Ordering Facility: [facility] Address: [address] [address] Performed By: #### 2 4321-2 #### [facility] CLIA [id number] 1 [place] [address] [place] WBC (Bld) [#/Vol] 8.02 10*3/uL Normal 3.70-11.00 [facility] Comment on above: Order Comment: Speci men Type: BLOOD SPECIMEN Ordering Facility: [facility] Address: [address] [address] Performed By: #### 2 4321-2 #### [facility] CLIA [id number] 1 [place] [address] [place] [address] BRAIN WO IVCONon 12-26-19 CT BRAIN WO IVCON * * *Final Report* * * DATE OF EXAM: Dec 25 2022 7:21AM [facility] 0504 - CT BRAIN WO IVCON / PROCEDURE REASON: Cerebral hemorrhage suspected * * * * Physician Interpretation * * * * EXAMINATION: CT BRAIN WITHOUT IV CONTRAST CLINICAL HISTORY: Head trauma. Cerebral hemorrhage suspected. TECHNIQUE: Serial axial images without IV contrast were obtained from the vertex to the foramen magnum. MQ: [id number]_3 CT Radiation dose: Integrated Dose-Length Product (DLP) for this visit = 771 mGy*cm CT Dose Reduction Employed: [employer] COMPARISON: CT brain 12/24/2022 7:[address] brain from outside institution 12/24/2022. CT neck 10/18/2018 and 05/24/2014. RESULT: Adjunct Business Instructor (topogram) images: Unremarkable. Post-operative change: None. Acute change: No evidence of an acute infarct or other acute parenchymal process. Hemorrhage: There is a small oval area of increased density in the posterior left thalamus that measures approximately 9 x 4 mm on image 2:15. 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 No evidence of acute intracranial hemorrhage. ECASS hemorrhagic transformation score: Not Applicable Mass Lesion / Mass Effect: There is no evidence of an intracranial mass or extraaxial fluid collection. No significant mass effect. Chronic change: None apparent. Parenchyma: There is mild generalized volume loss. Ventricles: Mild ventricular enlargement concordant with the degree of parenchymal volume loss. Paranasal sinuses and skull base: Mucous retention cysts in the right frontal sinus. The remaining visualized paranasal sinuses are grossly clear. The skull base and imaged soft tissues are unremarkable. IMPRESSION: 1. 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 MRI would be helpful for confirmation if felt clinically indicated. 2. No evidence of acute intracranial hemorrhage. 3. Mild generalized brain parenchymal volume loss. Drama Director: NICHO Transcribe Date/Time: Dec 25 2022 8:34A Dictated by : JACOB QUEVEDO MD This examination was interpreted and the report reviewed and electronically signed by: JACOB QUEVEDO MD on Dec 25 2022 8:44AM EST [id number] [facility] ECG COMPLETEon 12-25-2022 ECG COMPLETE Ventricular Rate : 1 00 BPM Atrial Rate : 100 BPM P-R Interval : 168 ms QRS Duration : 68 ms Q-T Interval : 334 ms QTC Calculation(Bazett) : 430 ms Calculated P Hopwood : 93 degrees Calculated R Hopwood : 40 degrees Calculated T Hopwood : 45 degrees NORMAL SINUS RHYTHM NORMAL ECG NO PREVIOUS ECGS AVAILABLE Confirmed by MD BELL THOMAS ([id number]) on 01/15/2023 11:38:11 AM NAME : ATIF COLÓN PID : [id number] : 1935 Gender : Male Race : ORD : [id number] Procedure Date : Dec 25 2022 03:53:39 Edit Date : Jan 15 2023 11:38:14 Diagnosis: NORMAL SINUS RHYTHM NORMAL ECG NO PREVIOUS ECGS AVAILABLE Confirmed by MD BELL THOMAS ([id number]) on 01/15/2023 11:38:11 AM Test Reason : Chest Pain Location : 4 : [place] 21 Overread By : MD BELL THOMAS Edited By : MD BELL THOMAS Referred By : , Acquired by : MAMIE DEGROOT [facility] ED NOTEon 12-25-2022 ED NOTE HNO ID: [id number] Author: Gabriella Santos RN Service: ? Author Type: Registered Nurse Type: ED Notes Filed: 12/25/2022 6:03 AM Note Text: Report given to Ana Lilia COLÓN [address] [facility] HISTORY PHYSICALon HISTORY PHYSICAL HNO ID: [id number] Author: Hollis Stuart II, MD Service: Hospital Medicine Author Type: Physician Type: HANDP Filed: 12/25/2022 4:33 AM Note Text: DEPARTMENT OF HOSPITAL MEDICINE HISTORY AND PHYSICAL EXAM SERVICE DATE: 12/24/2022 SERVICE TIME: 11:02 PM Primary Care Physician: Jordan Johnson MD NIGHT AND WEEKEND COVERAGE: From 7am - 7pm, please call Sound attending After 7pm, please call cross cover pager #[phone] Subjective CHIEF COMPLAINT: fall, trauma to head and chest HPI: This is a 87 year old male with history of RLS, iron defiency anemia, HTN, GERD, CKD III and BPH who presents to the hospital due to a mechanical fall onto a toilet. The patient states that he went to the bathroom because he was feeling nauseous and slipped. He does not remember how he hit his head but says that he found himself on the floor. He does not think he lost consciousness. He denies any lightheadedness or palpitations leading to the fall. He has no numbness, tingling, focal weakness, confusion, change in vision, difficulty with speech or swallowing. He has no other active complaints, such as chest pain, shortness of breath, fevers, chills, abdominal pain, diarrhea, dysuria, or LE swelling. He only complains of reproducible pain in his left chest. Labs revealed Hgb of 11.1, otherwise normal CBC, Na of 129, K of 5.3 and Cr of 1.41 (baseline 1.09). CT Brain w/o contrast showed no acute pathology. REVIEW OF SYSTEM: All ROS are negative except those noted in HPI All pertinent labs and imaging reviewed. Pertinent medical records reviewed. ASSESSMENT AND PLAN: 1) Brain bleed, mild, thalamus 2/2 fall - repeat CT brain in am - frequent neuro checks - BP control - NPO for now - tele - follow CBC and BMP in am - NS consult 2) Hyponatremia, mild hyperkalemia - NS 75 cc/hr - tele - follow BMP in am 3) LOKI on CKDIII - NS 75 cc/hr - Hold lisinopril - Avoid nephrotoxins - follow BMP in am 4) Iron defiency anemia - ferrous sulfate 325 mg PO daily 5) HTN - amlodipine 2.5 mg PO daily, furosemide 40 mg PO daily, lisinopril (held) 6) GERD - omeprazole 20 mg PO BID 7) BPH - finasteride 5 mg PO daily, terazosin 5 mg PO at bedtime Code status: FULL Automated System Data and Physical Exam Below ######################## ######################## ###### ######################## ######################## ###### ######################## ######################## ###### PAST MEDICAL HISTORY Diagnosis Date Abdominal pain, epigastric BPH (benign prostatic hyperplasia) CKD (chronic kidney disease), stage III (HCC) Dr. Childress DDD (degenerative disc disease), lumbar Elevated PSA GERD (gastroesophageal reflux disease) Hypertension Hyponatremia Iron deficiency anemia Osteoarthritis RLS (restless legs syndrome) Rotator cuff tear arthropathy Seen previously by Dr. Palomino PAST SURGICAL HISTORY Procedure Laterality Date CIRCUMCISION EGD TRANSORAL BIOPSY SINGLE/MULTIPLE 10/29/09 minimal irritation LAPAROSCOPY SURG CHOLECYSTECTOMY 10/31/09 Cholecystectomy, lap REPAIR FIRST ABDOMINAL WALL HERNIA 2006 Hernia repair, incisional SHOULDER ARTHROSCOPY/SURG 11/13/2010 Rotator cuff repair and Sub AC decompression right shouldrer FAMILY HISTORY Problem Relation Age of Onset None Mother Alcohol/Drug Father Heart Brother Social History Tobacco Use Smoking status: Former Packs/day: 0.20 Types: Cigarettes Quit date: 06/07/1994 Years since quittin.5 Smokeless tobacco: Never Tobacco comments: quit 10 years ago Substance Use Topics Alcohol use: No Drug use: No HOME MEDICATIONS: Prior to Admission Medications Prescriptions Last Dose Informant Patient Reported? Taking? amLODIPine (NORVASC) 2.5 mg tablet No No Sig: Take 1 tablet by mouth once daily. ferrous sulfate 325 mg (65 mg iron) tablet No No Sig: Take 1 tablet by mouth daily with breakfast. finasteride (PROSCAR) 5 mg tablet No No Sig: Take 1 tablet by mouth once daily. furosemide (LASIX) 40 mg tablet No No Sig: Take 1 tablet by mouth once daily. hydrOXYzine pamoate (VISTARIL) 50 mg capsule No No Sig: Take 1 capsule by mouth at bedtime as needed (insomnia). lisinopril (ZESTRIL) 40 mg tablet No No Sig: Take 1 tablet by mouth once daily. melatonin 10 mg tab Yes No Sig: Take 5 mg by mouth daily at bedtime. omeprazole (PRILOSEC) 20 mg capsule No No Sig: Take 1 capsule by mouth twice daily. terazosin (HYTRIN) 5 mg capsule No No Sig: TAKE 1 CAPSULE BY MOUTH DAILY AT BEDTIME. Facility-Administered Medications Last Administration Doses Remaining perflutren lipid microspheres 1.3 mL in NaCl (PF) 0.9% 10 mL injection (DEFINITY) None recorded 1 sodium chloride 0.9 % (flush) 10 mL (BD POSIFLUSH) None recorded 1 ALLERGIES Allergen Reactions Aspirin GI Upset Penicillins Rash Objective PHYSICAL EXAM: BP 133/65 Pulse 65 Temp (Src) 98.7 (Oral) Resp 16 Ht 5' 6 (more content not included)... Normal [facility] THERAPY NTon 12-25-2022 THERAPY NT HNO ID: [id number] Author: Sawyer Wei, PT Service: Physical Therapy Author Type: Physical Therapist Type: Therapy (PT/OT/Speech/Resp) Filed: 12/25/2022 2:45 PM Note Text: Physical Therapy Evaluation SERVICE DATE: 12/25/2022 SERVICE TIME: 1329 to 1355 ROOM: [place] [address] Recommended Discharge Disposition: Home PT Recommended Discharge Disposition Comments: Patient functioning just below baseline, requires decreased assist with mobility, however limited by pain. Patient to benefit from Home PT at discharge to further improve strength and independence. recommend increased assist from son for completion of IADLs while patient recovers Anticipated Discharge Needs: Physical Assist at Home Physical Assist at Home for: Cleaning, Laundry, Meals, Shopping, Transportation PT 6 Clicks Score: 20 Precautions/Activity Restrictions: Fall Risk, Bed/Chair Alarm Current Hospital Course: 87 y.o male s/p GLF resulting in small L side thalamic hemorrhage Reason for Hospital Admission: GLF Relevant Past Medical History: CKD3, HTN, OA Response to Therapy Interventions: Good Participation in Activities, On-Track to Achieve Discharge Goals, Pain, Requires Additional Time to Complete Activities Continued Skilled Needs Due to: Functional Mobility/Skill Impairments, Safety Concerns Physical Therapy Problem List: Pain, Decreased Activity Tolerance, Decreased Strength, Functional Mobility Impairment, Balance Impaired Treatment Interventions: Education, Energy Conservation Training, Strengthening, Functional Mobility Training, Balance Training Plan for Next Visit: Bed Mobility, Gait Training, Exercise Instruction/Handout, Sit to Stand Transfers, Standing Tolerance, Standing Balance Home Environment Patient Lives With: Spouse Assistance Available: 24-Hour (son stops by daily if needed, currently at home with spouse while patient admitted) Entry To Home: No Stairs Number Of Stairs To Bed/Bath: 0 Tub/Shower Type: walk in shower with seat and grab bars Laundry: in apartment, patient and spouse split Equipment Owned: Walker- Wheeled, Cane, Shower Chair, Grab Bars- Shower Prior Functional Level: Within Functional Limits Prior Functional Level Comments: Patient reports ambulating with a cane, independent with ADLs, drives, normally sleeps in recliner at home. Son was living with patient and spouse, however able to stop by frequently to assist when needed. Subjective: Patient pleasant and agreeable to PT session CURRENT FUNCTIONAL STATUS: Most recent performance Current Functional Mobility Assist Level Additional Information Rolling Supine to Sit Stand By Assistance, Additional Information HOB slightly elevated, patient able to come to sitting without assist, does require increased time due to pain Sit to Supine Scooting Stand By Assistance Sit to Stand Contact Guard Assistance, Additional Information cues for hand placement, power through LE Stand to Sit Contact Guard Assistance, Additional Information cues to reach back for seated surface, slowly lower bottom Bed to Chair Toilet/Commode Contact Guard Assistance, Additional Information patient standing while urinating, contact assist to maneuver bathroom Gait Contact Guard Assistance, Additional Information Gait Device: Cane Gait Distance (feet): 25' x 2 patient ambulating with slower gait due to pain in L chest, cues for posture and pursed lips breathing with proper pacing to avoid over exertion, patient with no loss of balance noted, however does require increased time to negotiate obstacles within room Stairs Curb Step Car Transfer Blank malave indicate activity not attempted General Deviations/Observations: Alyssa decreased, Step length decreased, Flexed trunk posture, Antalgic gait Range of Motion: WFL Strength: Strength Limitation Comments Strength Limitation Comments: BLE grossly 4/5 Balance: Static Sitting, Dynamic Sitting, Static Standing, Dynamic Standing Static Sitting Balance: Normal Patient able to maintain steady balance without handhold support Dynamic Sitting Balance: Normal Patient accepts maximal challenge and can shift weight easily within full range in all directions Static Standing Balance: Good Patient able to maintain balance without handhold support, limited postural sway Dynamic Standing Balance: Fair Patient accepts minimal challenge, able to maintain balance while turning head/trunk Activity Tolerance: Standing Activity Standing Activity: ambulation Standing Activity Tolerance (in minutes): 4 JH-HLM: 7: Walk 25 feet or more Learning/Educational Needs: Functional Activities/Mobility, Safety Goals for Plan of Care: Patient/Caregiver Goals: Go Home Goals: Patient will demonstrate progress with functional mobility to allow safe discharge to home with available support and/or physical assistance. Able to Perform HEP with: Verbal Cues Only Transfer Supine to/fro (more content not included)... [facility] ALLIED HEALTHon 12-24-2022 ALLIED HEALTH HNO ID: [id number] Author: Padmini Schmitz RT(R) Service: Radiology Author Type: Technologist Type: Allied Health Filed: 12/24/2022 7:55 PM Note Text: Radiology Service Progress Note PATIENT NAME: Atif Colón DATE OF SERVICE: December 24, 2022 TIME: 7:54 PM PATIENT IDENTITY VERIFICATION COMPLETED USING TWO (2) IDENTIFIERS: Name and Date of confirmed by patient verbally and Name and Date of confirmed by identification band. FALL SCREENING: Has the patient had 2 falls in the last year or 1 fall with injury or currently using an Ambulatory Assistive Device (Walker, Cane, Wheelchair, Crutches, etc.)? Emergency Room Patient: Screened in ED PATIENT GENDER DATA: Male PATIENT RELEVANT IMPLANT DATA REVIEWED: Yes RADIOLOGY DEPARTMENT: CT; Exam(s) Completed: Brain PERIPHERAL IV DATA: Not applicable SIGNED BY: RT Malia(R) December 24, 2022 7:54 PM [facility] CONSULTon 12-24-2022 CONSULT HNO ID: [id number] Author: Vashti Motley MD, PhD Service: Neurosurgery Author Type: Physician Type: Consults Filed: 12/26/2022 1:25 PM Note Text: CONSULT: NEUROSURGERY SERVICE Patient Name: Atif Colón Date of : 1935 SERVICE DATE: 12/24/2022 SERVICE TIME: 7:35 PM REASON FOR CONSULT: IPH REQUESTING PHYSICIAN: Samanta PRIMARY CARE PHYSICIAN: Jordan Johnson MD Consultation requested by Dr. England for an opinion regarding IPH. My final recommendations will be communicated back to the requesting physician by way of shared Medical record or letter to requesting physician via US mail. CHIEF COMPLAINT: syncopal fall onto toilet HISTORY OF PRESENT ILLNESS : Atif Colón is a 87 year old male PMH HTN, CKD3, GERD who presents after syncopal fall onto toilet yesterday. Patient states he woke up in the late morning yesterday and felt nauseous, went to vomit and fell forwards from kneeling onto the toilet, striking his chest and his head, though he is amnesic to the latter. Currently he c/o chest pain which he feels is muscular in nature. He went to urgent care today for this and they recommended he go to [place] for evaluation. 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 He was transferred to [facility] for further trauma evaluation. Currently has lidocaine patch which is helping his chest pain. Denies MOYA n/v or focal neurologic complaint. Denies use of blood thinners. Of note he had a tooth extracted on Wednesday and his family states he lost a lot of blood . PAST MEDICAL HISTORY Diagnosis Date Abdominal pain, epigastric BPH (benign prostatic hyperplasia) CKD (chronic kidney disease), stage III (HCC) Dr. Childress DDD (degenerative disc disease), lumbar Elevated PSA GERD (gastroesophageal reflux disease) Hypertension Hyponatremia Iron deficiency anemia Osteoarthritis RLS (restless legs syndrome) Rotator cuff tear arthropathy Seen previously by Dr. Palomino PAST SURGICAL HISTORY Procedure Laterality Date CIRCUMCISION EGD TRANSORAL BIOPSY SINGLE/MULTIPLE 10/29/09 minimal irritation LAPAROSCOPY SURG CHOLECYSTECTOMY 10/31/09 Cholecystectomy, lap REPAIR FIRST ABDOMINAL WALL HERNIA 2006 Hernia repair, incisional SHOULDER ARTHROSCOPY/SURG 11/13/2010 Rotator cuff repair and Sub AC decompression right shouldrer FAMILY HISTORY Problem Relation Age of Onset None Mother Alcohol/Drug Father Heart Brother ALLERGIES Allergen Reactions Aspirin GI Upset Penicillins Rash Current Facility-Administered Medications Medication Dose Route Frequency Provider Last Rate Last Admin perflutren lipid microspheres 1.3 mL in NaCl (PF) 0.9% 10 mL injection (DEFINITY) INTRAVENOUS DIRECTED PRN Jordan Johnson MD sodium chloride 0.9 % (flush) 10 mL (BD POSIFLUSH) 10 mL INTRAVENOUS DIRECTED PRN Jordan Johnson MD Current Outpatient Medications Medication Sig Dispense Refill amLODIPine (NORVASC) 2.5 mg tablet Take 1 tablet by mouth once daily. 90 tablet 1 terazosin (HYTRIN) 5 mg capsule TAKE 1 CAPSULE BY MOUTH DAILY AT BEDTIME. 90 capsule 1 omeprazole (PRILOSEC) 20 mg capsule Take 1 capsule by mouth twice daily. 180 capsule 1 furosemide (LASIX) 40 mg tablet Take 1 tablet by mouth once daily. 90 tablet 1 ferrous sulfate 325 mg (65 mg iron) tablet Take 1 tablet by mouth daily with breakfast. 90 tablet 1 lisinopril (ZESTRIL) 40 mg tablet Take 1 tablet by mouth once daily. 90 tablet 1 finasteride (PROSCAR) 5 mg tablet Take 1 tablet by mouth once daily. 90 tablet 3 hydrOXYzine pamoate (VISTARIL) 50 mg capsule Take 1 capsule by mouth at bedtime as needed (insomnia). 90 capsule 1 melatonin 10 mg tab Take 5 mg by mouth daily at bedtime. COMPLETE REVIEW OF SYSTEMS PAIN ASSESSMENT: see HPI Constitutional: Denies fatigue, fever/chills Eyes: Denies vision changes Ears: Denies hearing changes Cardiovascular: Denies palpitations Respiratory: Denies dyspnea GI: Denies change in bowel or bladder habits : Denies incontinence Musculoskeletal: Denies joint pain Integumentary: Denies rashes Neurological: Denies headaches, fainting, local weakness, numbness, tingling, tremors Psychiatric: Denies anxiety, depression Endocrine: Denies heat/cold intolerance Heme/Lymph: Denies easy bruising or bleeding Allergy/Immune: Denies fatigue, fever/chills MEDS: Current Facility-Administered Medications Medication Dose Route Frequency OBJECTIVE: BP 138/79 Pulse 74 Temp (Src) 98.7 (Oral) Resp 15 Ht 5' 6 (1.68m) Wt 175 lb (79.4kg) SpO2 94% BMI 28.26 kg/(m2). O2 Therapy: Room Air IANDO: No results for input(s): NA , K , CHLOR , CO2 , BUN , CREAT , GLUC , ANION , CA , MG , P , ALB , AST , ALT , ALKPHOS , TBILI , DBILI , PHOSINTL , WBC , HB , HCT , PLT , LACT , INR , PH , PCO2 , (more content not included)... [facility] CONSULT HNO ID: [id number] Author: Alyssa England MD Service: General Surgery Author Type: Physician Type: Consults Filed: 12/24/2022 10:25 PM Note Text: TRAUMA SURGERY CONSULT ARRIVAL DATE: 12/24/2022 ARRIVAL TIME: evening CATEGORY: Consult INJURY DATE: 12/23/2022 INJURY TIME: unknown Subjective 87 year old male w/ a history of abdominal pain, CKD, GERD, HTN, Laparoscopic Cholecystectomy and abdominal hernia repair who presents as a transfer from [facility] for a trauma evaluation. Patient reports he was at home when he felt dizzy and nauseas yesterday. He went to the bathroom incase he vomited and was closed to the toilet when he slipped and hit his chest/head and fell backwards. Patient does not know if he had LOC or not. He is not on thinners. He was able to get up himself and was taken to OSH for workup that was positive for a thalamic hemorrhage but no traumatic injuries. Patient is currently doing well on room air and does not complain of any weakness or parathesias.. HPI/CHIEF COMPLAINT: GLF BRIEF DESCRIPTION OF INJURIES: none LAST FLUIDS/MEAL: unknwon CODE STATUS: Not discussed ALLERGIES Allergen Reactions Aspirin GI Upset Penicillins Rash (Not in a hospital admission) DATE OF LAST TETANUS: as below Immunization History Administered Date(s) Administered COVID-19 original vaccine, full dose, monovalent (MODERNA) 06/27/2020 07/25/2020 04/03/2021 09/11/2021 COVID-19 vaccine, age 12+ yr, bivalent (PFIZER-BIONTECH) 03/16/2022 influenza (HD-IIV) vaccine, age 65+ yr, high dose, PF (FLUZONE HIGH-DOSE) 03/07/2015 02/19/2016 03/13/2017 03/05/2018 03/02/2019 influenza (HD-IIV4) vaccine, age 65+ yr, high dose, quadrivalent, PF (FLUZONE HIGH-DOSE) 03/29/2020 03/12/2021 03/16/2022 influenza (IIV3) vaccine, age 3+ yr, trivalent (AFLURIA, FLULAVAL, FLUVIRIN, FLUZONE) 03/14/2014 influenza vaccine, unspecified formulation 03/25/2010 pneumococcal (PCV13) vaccine, 13 valent (PREVNAR 13) 10/05/2014 pneumococcal (PPV23) vaccine, 23 valent (PNEUMOVAX 23) 09/05/2009 09/08/2016 tetanus diphtheria (Td) vaccine, age 7+ yr, 5 Lf tetanus, PF (TENIVAC) 10/12/2014 09/30/2022 zoster (ZVL) vaccine, live (ZOSTAVAX) 10/17/2007 PAST MEDICAL HISTORY Diagnosis Date Abdominal pain, epigastric BPH (benign prostatic hyperplasia) CKD (chronic kidney disease), stage III (HCC) Dr. Childress DDD (degenerative disc disease), lumbar Elevated PSA GERD (gastroesophageal reflux disease) Hypertension Hyponatremia Iron deficiency anemia Osteoarthritis RLS (restless legs syndrome) Rotator cuff tear arthropathy Seen previously by Dr. Palomino PAST SURGICAL HISTORY Procedure Laterality Date CIRCUMCISION EGD TRANSORAL BIOPSY SINGLE/MULTIPLE 10/29/09 minimal irritation LAPAROSCOPY SURG CHOLECYSTECTOMY 10/31/09 Cholecystectomy, lap REPAIR FIRST ABDOMINAL WALL HERNIA 2006 Hernia repair, incisional SHOULDER ARTHROSCOPY/SURG 11/13/2010 Rotator cuff repair and Sub AC decompression right shouldrer Social History Tobacco Use Smoking status: Former Packs/day: 0.20 Types: Cigarettes Quit date: 06/07/1994 Years since quittin.5 Smokeless tobacco: Never Tobacco comments: quit 10 years ago Substance Use Topics Alcohol use: No Drug use: No FAMILY HISTORY Problem Relation Age of Onset None Mother Alcohol/Drug Father Heart Brother ROS: Is the patient having any pain? Yes Chest pain Constitutional: Negative Eye/Ear/Nose: Negative Respiratory: Negative Cardiovascular: Chest pain GI/Liver/Biliary: Negative Genitourinary: Negative Psychiatric: Negative Neurologic: Negative Musculoskeletal: Negative Integument: Negative Endocrine: Negative Heme/Lymph: Negative Objective OBJECTIVE: PHYSICAL EXAM: Genl: Appears age appropriate. No acute distress. Resting comfortably. Head/Face: Normocephalic. Ecchymosis of the left jaw and forehead Eyes: EOMI. Sclera not icteric, not injected Neck: No mid-line masses. C-spine non-tender. Back: T AND L Spine non-tender, no step-offs noted. No flank tenderness. Resp: Lungs clear bilat. No wheezes. No rales. Breathing is non-labored on RA saturating well . Sternum with some ecchymosis, mild TTP. CVS: RRR. No murmur, rub, gallop. 2+ pulses at RA, DP, PT bilat. GI: Abdomen is soft, non-tender, not distended. Bowel sounds normoactive. No peritonitis. : Genitalia normal for age. No lesions noted. MSK: SWARTZ. Extremities without clubbing, cyanosis, edema. Normal ROM x 4. Skin: Warm and dry. Not jaundiced. Neuro: AANDOx3. Strength and sensation wnl. GCS15. Psych: Normal mood. Normal affect. Appropriate insight into current situation. PRIOR TO ARRIVAL: unknown LOC Labs: No results for input(s): NA , K , CHLOR , CO2 , BUN , CREAT , GLUC , ANION , CA , MG , P , ALB , AST , ALT , ALKPHOS , TBILI , DBILI , PHOSINTL , WBC , HB , HCT , PLT , LACT , IN (more content not included)... [facility] CT BRAIN WO IVCONon 12-25-19 CT BRAIN WO IVCON * * *Final Report* * * DATE OF EXAM: Dec 24 2022 7:57PM [facility] 0504 - CT BRAIN WO IVCON / PROCEDURE REASON: Head trauma, moderate-severe * * * * Physician Interpretation * * * * EXAMINATION: CT BRAIN WO IVCON CLINICAL HISTORY: Head trauma, moderate-severe TECHNIQUE: Serial axial images without IV contrast were obtained from the vertex to the foramen magnum. MQ: [id number]_[id number] CT Radiation dose: Integrated Dose-Length Product (DLP) for this visit = 726 mGy*cm CT Dose Reduction Employed: Iterative recon COMPARISON: None. FINDINGS: The brain parenchyma is normal in appearance without a mass lesion, hemorrhage, acute infarction or midline shift. The rosado-white matter differentiation is preserved. Prominence of the ventricular system likely related to cerebral volume loss. Septum cavum pellucidum is noted. No extra-axial fluid collections are present. The basal cisterns are patent. The calvarium is intact. Rounded opacity in the right frontal sinus likely reflects a retention cyst or polyp. The remaining visualized paranasal sinuses are clear. The mastoid air spaces are clear. Diffuse vascular calcifications of the intracranial internal carotid arteries. Reformatted images support the above findings. IMPRESSION: No acute intracranial abnormality. Drama Director: NICHO Transcribe Date/Time: Dec 24 2022 9:38P Dictated by : NARCISA KHOURY MD This examination was interpreted and the report reviewed and electronically signed by: NARCISA KHOURY MD on Dec 24 2022 9:41PM EST [id number] [facility] ED NOTEon 12-24-2022 ED NOTE HNO ID: [id number] Author: Gabriella Santos RN Service: ? Author Type: Registered Nurse Type: ED Notes Filed: 12/24/2022 8:52 PM Note Text: Spoke to Dr. Cueva about replacing lidocaine patch. Dr. Cueva to order new patch [facility] ED NOTE HNO ID: [id number] Author: Gabriella Santos RN Service: ? Author Type: Registered Nurse Type: ED Notes Filed: 12/24/2022 7:25 PM Note Text: Ct notified [facility] ED NOTE HNO ID: [id number] Author: Geoff Tao DO Service: Emergency Medicine Author Type: Physician Type: ED Notes Filed: 12/24/2022 10:08 PM Note Text: Attending Physician Attestation Note: Olson findings confirmed. I saw the patient in coordination with the resident physician. I personally interviewed and examined the patient. I discussed the patient with the resident physician. I reviewed the resident physician's note. I was present for olson portions of and personally supervised any/all procedures. I personally saw the patient and performed a substantive portion of the visit including all aspects of the medical decision making. I agree with the resident physician's findings and medical decision making unless otherwise documented. Patient with no previous intracranial pathology or injury presenting for concerns of fall with head bleed. Patient reports that yesterday evening when he was in the bathroom he was feeling slightly nauseous and for unknown reason fell forward and hit his head against the toilet bowl. States he is not sure if he passed out or not. Never had any headache or visual changes or numbness/tingling/weakne ss prior to or after the event. States he also must of hit his chest as well. Went to an urgent care this morning to be evaluated for his chest discomfort and was transferred to [facility] where he had CT head and neck imaging as well as CT chest. Imaging was significant for a left thalamic bleed with no mass effect or significant swelling and patient was transferred here for trauma consult. Currently patient states he feels at his baseline with no complaints. Current exam reveals an overall well-appearing male in no acute distress. PERRL. Moving all 4 extremities and strength out of 5 all 4 extremities. Sensation intact throughout. No ataxia. Full extraocular range of motion. We will page trauma surgery for further recommendations. Trauma surgery evaluated patient and stated no need further involvement given low concern for traumatic mechanism for this type of bleed and suggested contacting neuro ICU. Contacted neuro ICU who evaluated patient and recommended obtaining repeat CT head and determining disposition from them but likely recommending medical admission. Neurosurgery also was involved and contacted by neuro ICU who agreed with admission, likely medical but neuro ICU also suggested that maybe trauma should be admitting this patient given the recent fall. Trauma surgery was contacted again and continues to decline the admission stating that medical admission would be appropriate. Repeat head CT obtained and does not demonstrate any acute abnormality including any evidence of bleed and potential consideration that the initial CT head was over called but due to specialist recommendation at this time, we will continue to plan for observation admission. Patient was admitted to [facility] [place] for further management. [facility] ED NOTE HNO ID: [id number] Author: Genesis Mcmillan RN Service: Emergency Medicine Author Type: Registered Nurse Type: ED Notes Filed: 12/24/2022 5:12 PM Note Text: Pt on continuous cardiac and SPO2 monitoring. Pt has call light in hand. [facility] ED NOTE HNO ID: [id number] Author: Mandi Groves RN Service: ? Author Type: Registered Nurse Type: ED Notes Filed: 12/24/2022 5:04 PM Note Text: Bed: 21-ED Expected date: Expected time: Means of arrival: Comments: kevin [facility] ED PROV NOTEon 12-24-2022 ED PROV NOTE HNO ID: [id number] Author: Bret Cueva DO Service: Emergency Medicine Author Type: Resident Type: ED Provider Notes Filed: 12/24/2022 10:18 PM Note Text: -------- Attestation signed by Geoff Tao DO at 12/24/2022 11:25 PM Attending Attestation Note: Olson findings confirmed. I evaluated the patient in conjunction with the resident physician. I personally examined the patient. I discussed the patient with the resident physician. I reviewed the resident physician's note. I was present for olson portions of and personally supervised any/all procedures. I personally saw the patient and performed a substantive portion of the visit including all aspects of the medical decision making. Please refer to my separately documented ED Provider Note for further details. Signature: Geoff Tao DO Date: 12/24/2022 Time: 11:25 PM -------- ED Provider Note Patient Name: Atif Colón : 1935 SERVICE DATE: 12/24/22 History Patient presents with: Functional Transfers: Pt arrives via EMS as a transfer from [place]. Pt had a fall yesterday afternoon where he fell forward and hit chest and head on toilet. Pt did not go to get checked out until today. Per EMS, [place] found a brain bleed. Pt is AANDO x4. Pt claims may have had +LOC. Patient is an 87-year-old male who presents to the emergency department as a transfer from [place] emergency department for trauma consultation. Reportedly suffered a mechanical fall yesterday afternoon, reportedly fell forward and hit his chest and head on toilet. Initially did not get checked out, states today he felt weak and achy and reported initially to urgent care where he was told to go to the ED. His largest complaint has been anterior chest wall pain, he was seen at [place] and found to have a thalamic brain bleed. He was transferred here for consultation. Positive LOC, patient unable to tell me the exact time of when he fell but states it was sometime after lunchtime. Denies any headache or numbness and tingling in his upper or lower extremities. Denies any vision changes. Denies any dizziness. PAST MEDICAL HISTORY Diagnosis Date Abdominal pain, epigastric BPH (benign prostatic hyperplasia) CKD (chronic kidney disease), stage III (HCC) Dr. Childress DDD (degenerative disc disease), lumbar Elevated PSA GERD (gastroesophageal reflux disease) Hypertension Hyponatremia Iron deficiency anemia Osteoarthritis RLS (restless legs syndrome) Rotator cuff tear arthropathy Seen previously by Dr. Palomino PAST SURGICAL HISTORY Procedure Laterality Date CIRCUMCISION EGD TRANSORAL BIOPSY SINGLE/MULTIPLE 10/29/09 minimal irritation LAPAROSCOPY SURG CHOLECYSTECTOMY 10/31/09 Cholecystectomy, lap REPAIR FIRST ABDOMINAL WALL HERNIA 2006 Hernia repair, incisional SHOULDER ARTHROSCOPY/SURG 11/13/2010 Rotator cuff repair and Sub AC decompression right shouldrer FAMILY HISTORY Problem Relation Age of Onset None Mother Alcohol/Drug Father Heart Brother Social History Tobacco Use Smoking status: Former Packs/day: 0.20 Types: Cigarettes Quit date: 06/07/1994 Years since quittin.5 Smokeless tobacco: Never Tobacco comments: quit 10 years ago Substance and Sexual Activity Alcohol use: No Drug use: No Sexual activity: Not on file ALLERGIES Allergen Reactions Aspirin GI Upset Penicillins Rash Review of Systems Constitutional: Negative for activity change, chills, fatigue and fever. HENT: Negative for nosebleeds. Eyes: Negative for visual disturbance. Respiratory: Negative for cough and shortness of breath. Cardiovascular: Negative for chest pain. Gastrointestinal: Negative for abdominal distention, abdominal pain, constipation, diarrhea, nausea and vomiting. Endocrine: Negative for cold intolerance and heat intolerance. Genitourinary: Negative for dysuria and urgency. Musculoskeletal: Negative for neck pain and neck stiffness. Skin: Negative for color change. Neurological: Negative for dizziness. Psychiatric/Behavioral: Negative for agitation. Physical Exam Vitals [12/24/22 1710] BP Pulse Temp Temp src Resp SpO2 Weight Height 149/94 63 37.1 ?C (98.7 ?F) Oral 18 (!) 94 % 79.4 kg (175 lb) 1.676 m (5' 6 ) Physical Exam Constitutional: Appearance: Normal appearance. HENT: Head: Normocephalic and atraumatic. Right Ear: External ear normal. Left Ear: External ear normal. Nose: Nose normal. Mouth/Throat: Mouth: Mucous membranes are moist. Pharynx: Oropharynx is clear. Eyes: Extraocular Movements: Extraocular movements intact. Conjunctiva/sclera: Conjunctivae normal. Pupils: Pupils are equal, round, and reactive to light. Cardiovascular: Rate and Rhythm: Normal rate. Pulses: Normal pulses. Pulmonary: Effort: Pulm (more content not included)... [facility] XR HUMERUS 2V AP/LAT RIGHTon 09-30-2022 [facility] XR Humerus - right AP and La teralon 09-30-2022 IMPRESSION: Distal r ight clavicle fracture is favored to be remote or subacute, but is new from 2019. No humerus fracture. Drama Director: NICHO Transcribe Date/Time: Sep 30 2022 6:07P Dictated by : SUPRIYA GONZÁLES MD This examination was interpreted and the report reviewed and electronically signed by: SUPRIYA GONZÁLES MD on Sep 30 2022 6:09PM [facility] DIVISION OF RADIOLOGY * * *Final Report* * * DATE OF EXAM: Sep 30 2022 5:53PM [facility] [id number] - XR HUMERUS 2V AP/LAT RT / PROCEDURE REASON: multiple diagnoses * * * * Physician Interpretation * * * * RIGHT HUMERUS X-RAY SERIES HISTORY: Pain in right upper arm Fall, initial encounter TECHNIQUE: AP and lateral views. COMPARISON: Lateral 09/24/2018. RESULT: There is a fracture of the distal right clavicle, which is favored to be subacute or remote. No dislocation or destructive changes. Degenerative changes of the acromioclavicular joint.. Suture anchor in the humeral head. DIVISION OF RADIOLOGY Provider, [facility] - 09/30/2022 * * *Final Report* * * DATE OF EXAM: Sep 30 2022 5:53PM WOX [id number] - XR HUMERUS 2V AP/LAT RT / PROCEDURE REASON: multiple diagnoses * * * * Physician Interpretation * * * * RIGHT HUMERUS X-RAY SERIES HISTORY: Pain in right upper arm Fall, initial encounter TECHNIQUE: AP and lateral views. COMPARISON: Lateral 09/24/2018. RESULT: There is a fracture of the distal right clavicle, which is favored to be subacute or remote. No dislocation or destructive changes. Degenerative changes of the acromioclavicular joint.. Suture anchor in the humeral head. IMPRESSION IMPRESSION: Distal right clavicle fracture is favored to be remote or subacute, but is new from 2019. No humerus fracture. Drama Director: [facility] Transcribe Date/Time: Sep 30 2022 6:07P Dictated by : SUPRIYA GONZÁLES MD This examination was interpreted and the report reviewed and electronically signed by: SUPRIYA GONZÁLES MD on Sep 30 2022 6:09PM EST [facility] Radiology Study observation (narrative) [facility] XR Humerus - right AP and La teralOrdered By: Ccf Provider on 09-30-2022 [facility] CBC W Auto Differential pane l (Bld)on 06-15-2022 Basophils (Bld) [#/Vol] 0.05 10*3/uL <0.11 k/uL [facility] Basophils/100 WBC (Bld) 0.7 % [facility] Differential cell count method Nom (Bld) Auto [facility] Eosinophils (Bld) [#/Vol] 0.15 10*3/uL <0.46 k/uL [facility] Eosinophils/100 WBC (Bld) 2.2 % [facility] Erythrocyte distribution width (RBC) [Ratio] 13.7 % 11.5 - 15.0 % [facility] Hematocrit (Bld) [Volume fraction] 36.0 % Low 39.0 - 51.0 % [facility] Hemoglobin (Bld) [Mass/Vol] 11.9 g/dL Low 13.0 - 17.0 g/dL [facility] Immature granulocytes (Bld) [#/Vol] <0.10 k/uL [facility] Immature granulocytes/100 WBC (Bld) 0.3 % [facility] Lymphocytes (Bld) [#/Vol] 1.68 10*3/uL 1.00 - 4.00 k/uL [facility] Lymphocytes/100 WBC (Bld) 24.5 % [facility] MCH (RBC) [Entitic mass] 32.7 pg 26.0 - 34.0 pg [facility] MCHC (RBC) [Mass/Vol] 33.1 g/dL 30.5 - 36.0 g/dL [facility] MCV (RBC) [Entitic vol] 98.9 fL 80.0 - 100.0 fL [facility] Monocytes (Bld) [#/Vol] 0.54 10*3/uL <0.87 k/uL [facility] Monocytes/100 WBC (Bld) 7.9 % [facility] Neutrophils (Bld) [#/Vol] 4.43 10*3/uL 1.45 - 7.50 k/uL [facility] Neutrophils/100 WBC (Bld) 64.4 % [facility] Nucleated RBC (Bld) [#/Vol] <0.01 k/uL [facility] Nucleated RBC/100 WBC (Bld) [Ratio] 0.0 /100 WBC [facility] Platelet mean volume (Bld) [Entitic vol] 11.4 fL 9.0 - 12.7 fL [facility] Platelets (Bld) [#/Vol] 246 10*3/uL 150 - 400 k/uL [facility] RBC (Bld) [#/Vol] 3.64 10*6/uL Low 4.20 - 6.0 0 m/uL [facility] WBC (Bld) [#/Vol] 6.87 10*3/uL 3.70 - 11. 00 k/uL [facility] US ABD RT UPPER QUADRANTon 0 12-24-2021 [facility] XR Pelvis APon 08-20-2020 IMPRESSION: No acute process is seen. Drama Director[facility] Transcribe Date/Time: Aug 20 2020 3:23P Dictated by : MARILYNN UGALDE MD This examination was interpreted and the report reviewed and electronically signed by: MARILYNN UGALDE MD on Aug 20 2020 3:37PM [facility] DIVISION OF RADIOLOGY * * *Final Report* * * DATE OF EXAM: Aug 20 2020 3:16PM WOX [id number] - XR PELVIS 1V AP / PROCEDURE REASON: Fall, initial encounter * * * * Physician Interpretation * * * * History: Fall FINDINGS: A single AP view of the pelvis as been obtained. No acute fracture or dislocation is seen. Degenerative change of the included lower lumbar spine noted area level as seen within the lower pelvis. Hip joints are maintained. There is mild spurring along the inferior aspect of the sacroiliac joints. No gross soft tissue abnormality is seen. DIVISION OF RADIOLOGY Provider, Mayra Smith - 08/20/2020 * * *Final Report* * * DATE OF EXAM: Aug 20 2020 3:16PM WOX [id number] - XR PELVIS 1V AP / PROCEDURE REASON: Fall, initial encounter * * * * Physician Interpretation * * * * History: Fall FINDINGS: A single AP view of the pelvis as been obtained. No acute fracture or dislocation is seen. Degenerative change of the included lower lumbar spine noted area level as seen within the lower pelvis. Hip joints are maintained. There is mild spurring along the inferior aspect of the sacroiliac joints. No gross soft tissue abnormality is seen. IMPRESSION IMPRESSION: No acute process is seen. Drama Director: [facility] Transcribe Date/Time: Aug 20 2020 3:23P Dictated by : MARILYNN UGALDE MD This examination was interpreted and the report reviewed and electronically signed by: MARILYNN UGALDE MD on Aug 20 2020 3:37PM EST [facility] Radiology Study observation (narrative) [facility] XR Pelvis APOrdered By: Ccf Provider on 08-20-2020 [facility] Vital Signs Date Time Vital Sign Value Performing Clinician Landry nuñez 10-25-2023 13:43-0400 Body mass index (BMI) [Ratio] 29.85 kg/m2 Fabby Podlogar [employer]CAFFOLD SETTER.EZ Work Phone: [facility] 10-25-2023 13:43-0400 Body weight 81.38 kg Fabby Podlogar SCAFFOLD SETTER.PHARMACY ANALYST Work Phone: [facility] 10-25-2023 13:43-0400 Diastolic blood pressure 70 mm[Hg] Fabby Podlogar SCAFFOLD SETTER.PHARMACY ANALYST Work Phone: [facility] 10-25-2023 13:43-0400 Heart rate 59 /min Fabby Podlogar SCAFFOLD SETTER.PHARMACY ANALYST Work Phone: [facility] 10-25-2023 13:43-0400 Respiratory rate 16 /min Fabby Podlogar SCAFFOLD SETTER.PHARMACY ANALYST Work Phone: [facility] 10-25-2023 13:43-0400 SaO2% (BldA) [Mass fraction] 96 % Fabby Moore SCAFFOLD SETTER.PHARMACY ANALYST Work Phone: [facility] 10-25-2023 13:43-0400 Systolic blood pressure 138 mm[Hg] Fabby Moore SCAFFOLD SETTER.PHARMACY ANALYST Work Phone: [facility] 07-05-2023 13:49-0500 Body weight 79.83 kg Jordan Johnson MD Work Phone: [facility] 07-05-2023 13:49-0500 Diastolic blood pressure 64 mm[Hg] Jordan Johnson MD Work Phone: [facility] 07-05-2023 13:49-0500 Heart rate 65 /min Jordan Johnson MD Work Phone: [facility] 07-05-2023 13:49-0500 Respiratory rate 18 /min Jordan Johnson MD Work Phone: [facility] 07-05-2023 13:49-0500 SaO2% (BldA) [Mass fraction] 99 % Jordan Johnson MD Work Phone: [facility] 07-05-2023 13:49-0500 Systolic blood pressure 126 mm[Hg] Jordan Johnson MD Work Phone: [facility] 04-01-2023 15:39-0400 Diastolic blood pressure 68 mm[Hg] Jordan Johnson MD Work Phone: [facility] 04-01-2023 15:39-0400 Heart rate 93 /min Jordan Johnson MD Work Phone: [facility] 04-01-2023 15:39-0400 Respiratory rate 18 /min Jordan Johnson MD Work Phone: [facility] 04-01-2023 15:39-0400 SaO2% (BldA) [Mass fraction] 96 % Jordan Johnson MD Work Phone: [facility] 04-01-2023 15:39-0400 Systolic blood pressure 110 mm[Hg] Jordan Johnson MD Work Phone: [facility] 02-11-2023 16:54-0400 Diastolic blood pressure 66 mm[Hg] Jordan Johnson MD Work Phone: [facility] 02-11-2023 16:54-0400 Systolic blood pressure 108 mm[Hg] Jordan Johnson MD Work Phone: [facility] 02-11-2023 16:09-0400 Body temperature 98.6 [degF] Jordan Johnson MD Work Phone: [facility] 02-11-2023 16:09-0400 Body weight 76.39 kg Jordan Johnson MD Work Phone: [facility] 02-11-2023 16:09-0400 Heart rate 58 /min Jordan Johnson MD Work Phone: [facility] 02-11-2023 16:09-0400 Respiratory rate 22 /min Jordan Johnson MD Work Phone: [facility] 02-11-2023 16:09-0400 SaO2% (BldA) [Mass fraction] 96 % Jordan Johnson MD Work Phone: [facility] 02-04-2023 15:40-0400 Body temperature 98.2 [degF] Jordan Johnson MD Work Phone: [facility] 02-04-2023 15:40-0400 Body weight 74.84 kg Jordan Johnson MD Work Phone: [facility] 02-04-2023 15:40-0400 Diastolic blood pressure 48 mm[Hg] Jordan Johnson MD Work Phone: [facility] 02-04-2023 15:40-0400 Heart rate 42 /min Jordan Johnson MD Work Phone: [facility] 02-04-2023 15:40-0400 Respiratory rate 28 /min Jordan Johnson MD Work Phone: [facility] 02-04-2023 15:40-0400 SaO2% (BldA) [Mass fraction] 92 % Jordan Johnson MD Work Phone: [facility] 02-04-2023 15:40-0400 Systolic blood pressure 82 mm[Hg] Jordan Johnson MD Work Phone: [facility] 01-29-2023 13:11-0400 Diastolic blood pressure 64 mm[Hg] Fabby Podlogar SCAFFOLD SETTER.PHARMACY ANALYST Work Phone: [facility] 01-29-2023 13:11-0400 Heart rate 52 /min Fabby Podlogar SCAFFOLD SETTER.PHARMACY ANALYST Work Phone: [facility] 01-29-2023 13:11-0400 Respiratory rate 20 /min Fabby Podlogar SCAFFOLD SETTER.PHARMACY ANALYST Work Phone: [facility] 01-29-2023 13:11-0400 SaO2% (BldA) [Mass fraction] 99 % Fabby Podlogar SCAFFOLD SETTER.PHARMACY ANALYST Work Phone: [facility] 01-29-2023 13:11-0400 Systolic blood pressure 100 mm[Hg] Fabby Podlogar SCAFFOLD SETTER.PHARMACY ANALYST Work Phone: [facility] 12-24-2022 12:42-0400 Body temperature 98.4 [degF] Caridad Athy PA-C Work Phone: [facility] 12-24-2022 12:42-0400 Diastolic blood pressure 92 mm[Hg] Caridad Athy PA-C Work Phone: [facility] 12-24-2022 12:42-0400 Heart rate 108 /min Caridad Athy PA-C Work Phone: [facility] 12-24-2022 12:42-0400 Respiratory rate 18 /min Caridad Athy PA-C Work Phone: [facility] 12-24-2022 12:42-0400 SaO2% (BldA) [Mass fraction] 96 % Caridad Athy PA-C Work Phone: [facility] 12-24-2022 12:42-0400 Systolic blood pressure 148 mm[Hg] Caridad Castaneda PA-C Work Phone: [facility] 10-01-2022 15:49-0400 Diastolic blood pressure 56 mm[Hg] Jordan Johnson MD Work Phone: [facility] 10-01-2022 15:49-0400 Heart rate 63 /min Jordan Johnson MD Work Phone: [facility] 10-01-2022 15:49-0400 Respiratory rate 16 /min Jordan Johnson MD Work Phone: [facility] 10-01-2022 15:49-0400 SaO2% (BldA) [Mass fraction] 97 % Jordan Johnson MD Work Phone: [facility] 10-01-2022 15:49-0400 Systolic blood pressure 110 mm[Hg] Jordan Johnson MD Work Phone: [facility] 09-30-2022 17:31-0400 Body temperature 98.4 [degF] Selene Hauser SCAFFOLD SETTER.PHARMACY ANALYST Work Phone: [facility] 09-30-2022 17:31-0400 Body weight 76.57 kg Selene Hauser SCAFFOLD SETTER.PHARMACY ANALYST Work Phone: [facility] 09-30-2022 17:31-0400 Heart rate 62 /min Selene Murtaza SCAFFOLD SETTER.PHARMACY ANALYST Work Phone: [facility] 09-30-2022 17:31-0400 Respiratory rate 21 /min Selene Murtaza SCAFFOLD SETTER.PHARMACY ANALYST Work Phone: [facility] 09-30-2022 17:31-0400 SaO2% (BldA) [Mass fraction] 98 % Selene Hauser SCAFFOLD SETTER.PHARMACY ANALYST Work Phone: [facility] 08-06-2022 16:22-0500 Body temperature 97 [degF] Jacob Hernandez SCAFFOLD SETTER.PHARMACY ANALYST Work Phone: [facility] 08-06-2022 16:22-0500 Body weight 81.83 kg Jacob Hernandez SCAFFOLD SETTER.PHARMACY ANALYST Work Phone: [facility] 08-06-2022 16:22-0500 Diastolic blood pressure 48 mm[Hg] Jacob David SCAFFOLD SETTER.PHARMACY ANALYST Work Phone: [facility] 08-06-2022 16:22-0500 Heart rate 67 /min Jacob David SCAFFOLD SETTER.PHARMACY ANALYST Work Phone: [facility] 08-06-2022 16:22-0500 Respiratory rate 21 /min Jacob David SCAFFOLD SETTER.PHARMACY ANALYST Work Phone: [facility] 08-06-2022 16:22-0500 SaO2% (BldA) [Mass fraction] 95 % Jacob David SCAFFOLD SETTER.PHARMACY ANALYST Work Phone: [facility] 08-06-2022 16:22-0500 Systolic blood pressure 100 mm[Hg] Jacob David SCAFFOLD SETTER.PHARMACY ANALYST Work Phone: [facility] 07-14-2022 13:13-0500 Body weight 77.93 kg Fabby Podlogar SCAFFOLD SETTER.PHARMACY ANALYST Work Phone: [facility] 07-14-2022 13:13-0500 Diastolic blood pressure 62 mm[Hg] Fabby Podlogar SCAFFOLD SETTER.PHARMACY ANALYST Work Phone: [facility] 07-14-2022 13:13-0500 Heart rate 80 /min Fabby Podlogar SCAFFOLD SETTER.PHARMACY ANALYST Work Phone: [facility] 07-14-2022 13:13-0500 Respiratory rate 16 /min Fabby Podlogar SCAFFOLD SETTER.PHARMACY ANALYST Work Phone: [facility] 07-14-2022 13:13-0500 SaO2% (BldA) [Mass fraction] 94 % Fabby Podlogar SCAFFOLD SETTER.PHARMACY ANALYST Work Phone: [facility] 07-14-2022 13:13-0500 Systolic blood pressure 122 mm[Hg] Fabby Podlogar SCAFFOLD SETTER.PHARMACY ANALYST Work Phone: [facility] 06-15-2022 13:58-0500 Body weight 78.11 kg Jordan Johnson MD Work Phone: [facility] 06-15-2022 13:58-0500 Diastolic blood pressure 60 mm[Hg] Jrodan Johnson MD Work Phone: [facility] 06-15-2022 13:58-0500 Heart rate 64 /min Jordan Johnson MD Work Phone: [facility] 06-15-2022 13:58-0500 Respiratory rate 16 /min Jordan Johnson MD Work Phone: [facility] 06-15-2022 13:58-0500 SaO2% (BldA) [Mass fraction] 98 % Jordan Johnson MD Work Phone: [facility] 06-15-2022 13:58-0500 Systolic blood pressure 130 mm[Hg] Jordan Johnson MD Work Phone: [facility] 06-11-2022 14:02-0500 Body weight 80.56 kg Fabby Podlogar SCAFFOLD SETTER.PHARMACY ANALYST Work Phone: [facility] 06-11-2022 14:02-0500 Diastolic blood pressure 76 mm[Hg] Fabby Podlogar SCAFFOLD SETTER.PHARMACY ANALYST Work Phone: [facility] 06-11-2022 14:02-0500 Heart rate 62 /min Fabby Podlogar SCAFFOLD SETTER.PHARMACY ANALYST Work Phone: [facility] 06-11-2022 14:02-0500 Respiratory rate 16 /min Fabby Podlogar SCAFFOLD SETTER.PHARMACY ANALYST Work Phone: [facility] 06-11-2022 14:02-0500 SaO2% (BldA) [Mass fraction] 98 % Fabby Podlogar SCAFFOLD SETTER.PHARMACY ANALYST Work Phone: [facility] 06-11-2022 14:02-0500 Systolic blood pressure 136 mm[Hg] Fabby Podlogar SCAFFOLD SETTER.PHARMACY ANALYST Work Phone: [facility] 05-06-2022 15:13-0500 Diastolic blood pressure 73 mm[Hg] Fabby Podlogar SCAFFOLD SETTER.PHARMACY ANALYST Work Phone: [facility] 05-06-2022 15:13-0500 Heart rate 66 /min Fabby Podlogar SCAFFOLD SETTER.PHARMACY ANALYST Work Phone: [facility] 05-06-2022 15:13-0500 Systolic blood pressure 139 mm[Hg] Fabby Podlogar SCAFFOLD SETTER.PHARMACY ANALYST Work Phone: [facility] 05-06-2022 14:37-0500 Body weight 80.74 kg Fabby Podlogar SCAFFOLD SETTER.PHARMACY ANALYST Work Phone: [facility] 05-06-2022 14:37-0500 Respiratory rate 18 /min Fabyb Podlogar SCAFFOLD SETTER.PHARMACY ANALYST Work Phone: [facility] 05-06-2022 14:37-0500 SaO2% (BldA) [Mass fraction] 97 % Fabby Podlogar SCAFFOLD SETTER.PHARMACY ANALYST Work Phone: [facility] 04-15-2022 14:32-0500 Body weight 84.55 kg Jordan Johnson MD Work Phone: [facility] 04-15-2022 14:32-0500 Diastolic blood pressure 104 mm[Hg] Jordan Johnson MD Work Phone: [facility] 04-15-2022 14:32-0500 Heart rate 54 /min Jordan Johnson MD Work Phone: [facility] 04-15-2022 14:32-0500 Respiratory rate 22 /min Jordan Johnson MD Work Phone: [facility] 04-15-2022 14:32-0500 SaO2% (BldA) [Mass fraction] 98 % Jordan Johnson MD Work Phone: [facility] 04-15-2022 14:32-0500 Systolic blood pressure 162 mm[Hg] Jordan Johnson MD Work Phone: [facility] 02-03-2022 15:35-0400 Body weight 80.2 kg Jordan Johnson MD Work Phone: [facility] 02-03-2022 15:35-0400 Diastolic blood pressure 68 mm[Hg] Jordan Johnson MD Work Phone: [facility] 02-03-2022 15:35-0400 Heart rate 58 /min Jordan Johnson MD Work Phone: [facility] 02-03-2022 15:35-0400 Respiratory rate 18 /min Jordan Johnson MD Work Phone: [facility] 02-03-2022 15:35-0400 SaO2% (BldA) [Mass fraction] 98 % Jordan Johnson MD Work Phone: [facility] 02-03-2022 15:35-0400 Systolic blood pressure 110 mm[Hg] Jordan Johnosn MD Work Phone: [facility] 12-12-2021 13:32-0400 Body weight 81.83 kg Fabby Podlogar SCAFFOLD SETTER.PHARMACY ANALYST Work Phone: [facility] 12-12-2021 13:32-0400 Diastolic blood pressure 66 mm[Hg] Fabby Podlogar SCAFFOLD SETTER.PHARMACY ANALYST Work Phone: [facility] 12-12-2021 13:32-0400 Heart rate 66 /min Fabby Podlogar SCAFFOLD SETTER.PHARMACY ANALYST Work Phone: [facility] 12-12-2021 13:32-0400 Respiratory rate 20 /min Fabby Podlogar SCAFFOLD SETTER.PHARMACY ANALYST Work Phone: [facility] 12-12-2021 13:32-0400 SaO2% (BldA) [Mass fraction] 96 % Fabby Podlogar SCAFFOLD SETTER.PHARMACY ANALYST Work Phone: [facility] 12-12-2021 13:32-0400 Systolic blood pressure 128 mm[Hg] Fabby Podlogar SCAFFOLD SETTER.PHARMACY ANALYST Work Phone: [facility] Encounters Encounter Date Encounter Type Care Provider Facility Start: 02-22-2024 End: 02-22-2024 ambulatory Nathaly Emily RN Work Phone: [employer] [employer] Comment on above: cdm (Check in call/) Start: 01-24-2024 End: 01-24-2024 ambulatory Aparna Vo RN Work Phone: [facility] Start: 01-24-2024 End: 01-24-2024 Follow-up encounter Aparna Vo RN Work Phone: [facility] Comment on above: Community Monitoring Outreach (Follow up) Start: 01-20-2024 ambulatory Nathaly Spivey RN Work Phone: [facility] Comment on above: cdm (Check in call/) Start: 12-17-2023 ambulatory Nathaly Spivey RN Work Phone: [facility] Comment on above: cdm (Check in call/) Start: 11-18-2023 ambulatory Nathaly Spivey RN Work Phone: [facility] Comment on above: cdm (Check in call/) Start: 11-02-2023 ambulatory Nathaly Spivey RN Work Phone: [facility] Comment on above: cdm (Check in call/) Start: 10-29-2023 Telephone encounter Jaime Johnson MD Work Phone: [facility] Start: 10-25-2023 End: 10-25-2023 ambulatory JORDAN JOHNSON Facility:[facility] Start: 10-25-2023 End: 10-25-2023 ambulatory JORDAN JOHNSON Facility:[facility] Start: 10-25-2023 End: 10-25-2023 Patient encounter procedure Fabby Moore APRN.PHARMACY ANALYST Work Phone: [facility] Comment on above: Essential hypertensi on (Primary Dx); Senile dementia (HCC); Depression, unspecified depression type; Benign prostatic hyperplasia with nocturia; Gastroesophageal reflux disease, unspecified whether esophagitis present Start: 09-27-2023 ambulatory Nathaly Spivey RN Work Phone: [facility] Comment on above: cdm (Check in call/) Start: 08-30-2023 ambulatory Nathaly Spivey RN Work Phone: [facility] Comment on above: cdm (Check in call/) Start: 08-23-2023 Telephone encounter Jaime Johnson MD Work Phone: [facility] Comment on above: Orders Start: 07-30-2023 ambulatory Nathaly Spivey RN Work Phone: [facility] Comment on above: cdm (Check in call/) Start: 07-19-2023 Telephone encounter Jaime Johnson MD Work Phone: [facility] Start: 07-05-2023 End: 07-05-2023 Patient encounter procedure Jordan Johnson MD Work Phone: [facility] Comment on above: Acute left-sided low back pain without sciatica (Primary Dx); At high risk for falls; 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); Grief reaction; Senile dementia (HCC); Stage 3a chronic kidney disease (HCC) Start: 07-05-2023 End: 07-05-2023 ambulatory JORDAN JOHNSON Facility:[facility] Start: 05-25-2023 End: 05-25-2023 ambulatory JORDAN JOHNSON Facility:[facility] Start: 05-19-2023 Telephone encounter Fabby jones APRN.CNP Work Phone: [facility] Start: 05-06-2023 ambulatory Nathaly Spivey RN Work Phone: [facility] Comment on above: cdm (Check in call/) Start: 04-19-2023 ambulatory Nathaly Spivey RN Work Phone: [facility] Comment on above: cdm (Check in call/) Start: 04-12-2023 Telephone encounter Jaime Johnson MD Work Phone: [facility] Comment on above: Medication Problem Start: 04-01-2023 End: 04-01-2023 ambulatory JORDAN JOHNSON Facility:[facility] Start: 04-01-2023 End: 04-01-2023 Patient encounter procedure Jordan Johnson MD Work Phone: [facility] Comment on above: 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) (Primary Dx); Grief reaction; Senile dementia (HCC); Stage 3a chronic kidney disease (HCC); Chronic insomnia; Primary osteoarthritis, unspecified site Start: 04-01-2023 End: 04-01-2023 ambulatory JORDAN JOHNSON Facility:[facility] Start: 03-28-2023 ambulatory Sindy Denise RN [employer] Comment on above: Anxiety Start: 03-18-2023 ambulatory Deirdre Grimaldo RN Work Phone: [facility] Comment on above: community monitoring outreach (CDM outreach) Start: 03-04-2023 ambulatory Wally Martinez RN [facility] Start: 03-04-2023 Follow-up encounter Wally Martinez RN [facility] Comment on above: CDM (Escalation foll ow up) Start: 03-03-2023 ambulatory Wally Martinez RN [facility] Comment on above: CDM (Telephonic Outr each) Start: 02-11-2023 End: 02-11-2023 Patient encounter procedure Jordan Johnson MD Work Phone: [facility] Comment on above: Acute cystitis witho ut hematuria (Primary Dx); Other specified hypotension; Bradycardia; AV block, Mobitz 1; Senile dementia (HCC); Acute gastric ulcer without hemorrhage or perforation; Iron deficiency anemia, unspecified iron deficiency anemia type; Decreased appetite; Depression, unspecified depression type; Hospital discharge follow-up Start: 02-10-2023 Telephone encounter Jaime Johnson MD Work Phone: [facility] Comment on above: Appointment Start: 02-09-2023 Patient Outreach Jessy Alas LPN [facility] Comment on above: Transition Of Care ( Discharged from [facility] 02/06/23) Start: 02-04-2023 End: 02-04-2023 Patient encounter procedure Jordan Johnson MD Work Phone: [facility] Comment on above: Sepsis, due to unspe cified organism, unspecified whether acute organ dysfunction present (HCC) (Primary Dx); Acute cystitis without hematuria; Urinary frequency; Bradycardia; Other specified hypotension; AV block, Mobitz 1 Start: 02-03-2023 ambulatory Janel rankin RN Work Phone: [facility] Comment on above: Community Monitoring Outreach (Enrollment CDM ) Start: 01-29-2023 End: 01-29-2023 Subsequent hospital visit by physician Xr [facility] Work Phone: Radiology Comment on above: Nausea [R11.0] Start: 01-29-2023 End: 01-29-2023 Patient encounter procedure Fabby Moore APRN.PHARMACY ANALYST Work Phone: [facility] [place] Comment on above: Nausea (Primary Dx); Bradycardia; Decreased appetite Start: 01-25-2023 Telephone encounter Jaime Johnson MD Work Phone: [facility] [place] Comment on above: Medication Review Start: 01-20-2023 Telephone encounter Jaime Johnson MD Work Phone: [facility] [place] Comment on above: Fill out Nursing Ned e POC Forms Start: 01-04-2023 Telephone encounter Jaime Johnson MD Work Phone: [facility] [place] Comment on above: Handicap Placard Start: 12-31-2022 End: 12-31-2022 Home visit Tg Osuna RN Work Phone: [facility] Comment on above: SN UNMADE VISIT Start: 12-31-2022 Telephone encounter Jaime Johnson MD Work Phone: [facility] [place] Comment on above: Hospital Follow Up Start: 12-29-2022 Patient Outreach Belia Cohen adonis Work Phone: Pharmacy Comment on above: Transition Of Care ( TCM Pharmacy-Hospital discharge 12/28/22) Start: 12-27-2022 Telephone encounter Chinyere rios LPN Work Phone: [facility] Comment on above: Home Care (MD ana hoover) Start: 12-24-2022 End: 12-28-2022 Evaluation and management of inpatient MADDI [place] Facility:[facility] Start: 12-24-2022 ambulatory Jordan Johnson MD Work Phone: [facility] Comment on above: Fall Start: 12-24-2022 End: 12-24-2022 Patient encounter procedure Caridad Castaneda PA-C Work Phone: [facility] Comment on above: Sternal pain (Primar y Dx); Left-sided chest pain Start: 12-18-2022 Telephone encounter Fabby jones APRN.PHARMACY ANALYST Work Phone: [facility] [place] Comment on above: Results Start: 11-25-2022 Refill Julia kay APRN.PHARMACY ANALYST Work Phone: [facility] [place] Comment on above: Refill Request Start: 11-08-2022 Refill Jordan Johnson MD Work Phone: [facility] [place] Comment on above: Refill Request Start: 10-01-2022 End: 10-01-2022 Patient encounter procedure Jordan Johnson MD Work Phone: [facility] [place] Comment on above: Fall in home, subseq uent encounter (Primary Dx); Multiple skin tears; At high risk for falls; Age-related physical debility; Screening for osteoporosis; Encounter for screening for osteoporosis; Other nonthrombocytopenic purpura (HCC) Start: 09-30-2022 End: 09-30-2022 Subsequent hospital visit by physician [facility] [place] Work Phone: Radiology Comment on above: Pain in right upper arm [M79.621] Start: 09-30-2022 End: 09-30-2022 Patient encounter procedure Selene Hauser APRN.PHARMACY ANALYST Work Phone: [place] [facility] Comment on above: Pain in right upper arm (Primary Dx); Fall, initial encounter; Abrasion Start: 09-14-2022 Refill Joradn Johnson MD Work Phone: [facility] [place] Comment on above: Refill Request Start: 09-07-2022 Refill Fabby Podlogar SCAFFOLD SETTER.PHARMACY ANALYST Work Phone: [facility] [place] Comment on above: Refill Request Start: 08-06-2022 End: 08-06-2022 Patient encounter procedure Jacob Hernandez SCAFFOLD SETTER.PHARMACY ANALYST Work Phone: [facility] Comment on above: Bilateral impacted c erumen (Primary Dx) Start: 07-17-2022 Refill Fabby Podlogar SCAFFOLD SETTER.PHARMACY ANALYST Work Phone: [facility] [place] Comment on above: Refill Request Start: 07-14-2022 End: 07-14-2022 Patient encounter procedure Fabby Podlogar SCAFFOLD SETTER.PHARMACY ANALYST Work Phone: [facility] [place] Comment on above: Ecchymosis (Primary Dx) Start: 07-12-2022 Refill Fabby Podlogar SCAFFOLD SETTER.PHARMACY ANALYST Work Phone: [facility] [place] Comment on above: Refill Request Start: 06-21-2022 Refill Jordan Johnson MD Work Phone: [facility] [place] Comment on above: Refill Request Start: 06-16-2022 Telephone encounter Jaime Johnson MD Work Phone: [facility] [place] Comment on above: Patient Question Start: 06-15-2022 End: 06-15-2022 Patient encounter procedure Jordan Johnson MD Work Phone: [facility] [place] Comment on above: Essential hypertensi on (Primary Dx); Stage 3a chronic kidney disease (HCC); Hyponatremia; Iron deficiency anemia, unspecified iron deficiency anemia type; Gastroesophageal reflux disease, unspecified whether esophagitis present; Benign prostatic hyperplasia without lower urinary tract symptoms; High prostate specific antigen (PSA); Osteoarthritis, unspecified osteoarthritis type, unspecified site; Mild cognitive impairment Start: 06-11-2022 End: 06-11-2022 Patient encounter procedure Fabby Podlogar SCAFFOLD SETTER.PHARMACY ANALYST Work Phone: [facility] [place] Comment on above: Left shoulder pain, unspecified chronicity (Primary Dx) Start: 05-24-2022 Refill Fabby Collazologcandi SCAFFOLD SETTER.PHARMACY ANALYST [facility] Phone: [facility] Comment on above: Refill Request Start: 05-21-2022 End: 05-21-2022 ambulatory Jose David Izabela PT [place] [facility] Comment on above: Acute pain of left s kiera (Primary Dx) Start: 05-14-2022 Refill Jordan Johnson MD Work Phone: [facility] [place] Comment on above: Refill Request Start: 05-08-2022 Telephone encounter Jaime Johnson MD Work Phone: [facility] Comment on above: BP Update Start: 05-06-2022 End: 05-06-2022 Patient encounter procedure Fabby Moore SCAFFOLD SETTER.PHARMACY ANALYST [facility] Phone: [facility] Comment on above: Essential hypertensi on (Primary Dx); Acute pain of left shoulder Start: 04-27-2022 Telephone encounter Jaime Johnson MD Work Phone: [facility] Comment on above: Results Start: 04-21-2022 Telephone encounter Jaime Johnson MD Work Phone: [facility] Comment on above: ECHO results Start: 04-20-2022 Telephone encounter Jaime Johnson MD Work Phone: [facility] Comment on above: Patient Question Start: 04-17-2022 Telephone encounter Jaime Johnson MD Work Phone: [facility] Comment on above: Results; Appointment Patient Question Start: 04-15-2022 End: 04-15-2022 Patient encounter procedure Jordan Johnson MD Work Phone: [facility] Comment on above: Bilateral lower extr emity edema (Primary Dx); Essential hypertension Start: 04-13-2022 Refill Jordan Johnson MD Work Phone: [facility] Comment on above: Refill Request Start: 02-25-2022 Refill Jordan Johnson MD Work Phone: [facility] [place] Comment on above: Refill Request Start: 02-10-2022 Telephone encounter Jaime Johnson MD Work Phone: [facility] [place] Comment on above: Patient Request; Pat ient Update Start: 02-06-2022 Telephone encounter Fabby jones APRN.PHARMACY ANALYST Work Phone: [facility] [place] Comment on above: Results Start: 02-03-2022 End: 02-03-2022 Patient encounter procedure Jordan Johnson MD Work Phone: [facility] [place] Comment on above: Closed displaced fra cture of right clavicle, unspecified part of clavicle, initial encounter (Primary Dx); Acute pain of right shoulder; Abrasion of right knee, initial encounter; Fall in home, initial encounter Start: 02-01-2022 Refill Jordan Johnson MD Work Phone: [facility] [place] Comment on above: Refill Request Start: 12-24-2021 End: 12-24-2021 Subsequent hospital visit by physician [facility] Work Phone: Radiology Comment on above: Elevated alkaline ph osphatase level [R74.8] Start: 12-22-2021 Refill Jordan Johnson MD Work Phone: [facility] [place] Comment on above: Refill Request Start: 12-19-2021 Telephone encounter Fabby jones APRN.PHARMACY ANALYST Work Phone: [facility] [place] Comment on above: Results Start: 12-17-2021 Telephone encounter Fabby jones APRN.PHARMACY ANALYST Work Phone: [facility] [place] Comment on above: Results Start: 12-12-2021 End: 12-12-2021 Patient encounter procedure Fabby Moore APRN.PHARMACY ANALYST Work Phone: [facility] [place] Comment on above: Essential hypertensi on (Primary Dx); Iron deficiency anemia, unspecified iron deficiency anemia type; Stage 3a chronic kidney disease (HCC); Benign prostatic hyperplasia without lower urinary tract symptoms; RLS (restless legs syndrome) Start: 10-13-2021 Refill Fabby Podlogar SCAFFOLD SETTER.PHARMACY ANALYST Work Phone: [facility] [place] Comment on above: Refill Request Start: 08-29-2021 ambulatory Jordan Johnson MD Work Phone: [facility] [place] Comment on above: Gabapentin Start: 08-20-2020 End: 08-20-2020 Subsequent hospital visit by physician [facility] [place] Work Phone: Radiology Comment on above: Fall, initial encoun ter [W19.XXXA] Procedures Date Procedure Procedure Detail Performing Clinician Start: 02-04-2023 Urnls dip stick/tabl et rgnt auto w/o microscopy Jordan Johnson MD Work Phone: Start: 01-29-2023 Radiologic exam abdo men 1 view Fabby Moore SCAFFOLD SETTER.PHARMACY ANALYST Work Phone: Start: 09-30-2022 Radex humerus minimu m 2 views Selene Hauser SCAFFOLD SETTER.PHARMACY ANALYST Work Phone: Start: 12-24-2021 Us abdominal real ti me w/image limited Jordan Johnson MD Work Phone: Start: 08-20-2020 Radiologic examinati on pelvis 1/2 views Khanh Jett SCAFFOLD SETTER.PHARMACY ANALYST Work Phone: Plan of Treatment Date Care Activity Detail Author Start: 09-30-2032 Urine microalbumin profile [facility] Start: 10-24-2026 Diabetes Screening Diabetes Screenin [facility] Start: 04-01-2026 Diabetes Screening Diabetes Screenin g [facility] Start: 01-29-2026 DIABETES SCREEN DIABETES SCREEN [facility] Start: 01-29-2026 Diabetes Screening Diabetes Screenin g [facility] Start: 12-28-2025 DIABETES SCREEN DIABETES SCREEN [facility] Start: 12-27-2025 DIABETES SCREEN DIABETES SCREEN [facility] Start: 12-16-2025 DIABETES SCREEN DIABETES SCREEN [facility] Start: 06-15-2025 DIABETES SCREEN DIABETES SCREEN [facility] Start: 04-22-2025 DIABETES SCREEN DIABETES SCREEN [facility] Start: 04-15-2025 DIABETES SCREEN DIABETES SCREEN [facility] Start: 12-16-2024 DIABETES SCREEN DIABETES SCREEN [facility] Start: 06-12-2024 DIABETES SCREEN DIABETES SCREEN [facility] Start: 04-26-2024 End: 04-26-2024 Patient encounter procedure 04/26/2024 2:00 PM EST Office Visit Family [facility] [address] [place] [address] Jordan Johnson MD [address] [facility] [place] [address] 6 month follow up [facility] Comment on above: 6 month follow up Start: 02-06-2024 Covid-19 Vaccine ( season) Covid-19 Vaccine () [facility] Start: 02-06-2024 Covid-19 Vaccine () Covid-19 Vaccine () [facility] Start: 02-06-2024 Influenza vaccination Influenza Vacc ine (#1) [facility] Start: 10-25-2023 End: 10-25-2023 Patient encounter procedure 10/25/2023 1:40 PM EDT Office Visit [facility]etri[facility] [address] [facility] [place] [address] PodFabby townsend, SCAFFOLD SETTER.PHARMACY ANALYST [address] [facility] [place] [address] 3 month follow up- MMSE Form [facility] Comment on above: 3 month follow up- M MSE Form Start: 10-04-2023 End: 10-04-2023 Patient encounter procedure 10/04/2023 2:20 PM EDT Office Visit [facility] Demetrius Vigil [address] [place] [address] [employer] townsend, SCAFFOLD SETTER.PHARMACY ANALYST [address] [facility] [place] [address] 3 month follow up- MMSE [facility] Comment on above: 3 month follow up- M MSE Start: 07-24-2023 Covid-19 Vaccine () Covid-19 Vaccine () [facility] Start: 06-15-2023 Urine microalbumin profile DTA P,TDAP,TD (1 - Tdap) [facility] Comment on above: Postponed from 10/13 (Declined at this time) Start: 06-07-2023 Advance Directive Discussion Advance Directive Discussion [facility] Start: 02-05-2023 Covid-19 Vaccine () Covid-19 Vaccine () [facility] Start: 02-05-2023 Influenza vaccination C [facility] Start: 01-01-2023 End: 03-03-2023 POTASSIUM BLD POTASSIUM BLD Lab Routine Hyperkalemia Expected: 01/01/2023, Expires: 03/03/2023 [facility] Work Phone: Comment on above: Expected: 01/01/2023 , Expires: 03/03/2023 Start: 10-01-2022 Urine microalbumin profile DTA P,TDAP,TD (1 - Tdap) [facility] Start: 07-17-2022 COVID-19 VACCINE (7 - Moderna series) COVID-19 VACCINE (7 - Moderna series) [facility] Start: 06-15-2022 End: 08-15-2022 Comprehensive metabolic 2000 panel - Serum or Plasma [facility] Work Phone: Comment on above: Expected: 06/15/2022 , Expires: 08/15/2022 Start: 06-15-2022 End: 08-15-2022 Ferritin [Mass/volume] in Serum or Plasma [facility] Work Phone: Comment on above: Expected: 06/15/2022 , Expires: 08/15/2022 Start: 06-15-2022 End: 08-15-2022 Iron and Iron binding capacity panel - Serum or Plasma [facility] Work Phone: Comment on above: Expected: 06/15/2022 , Expires: 08/15/2022 Start: 06-15-2022 End: 08-15-2022 Prostate specific Ag [Mass/volume] in Serum or Plasma [facility] Work Phone: Comment on above: Expected: 06/15/2022 , Expires: 08/15/2022 Start: 06-07-2022 ADVANCE DIRECTIVE DISCUSSION ADVANCE DIRECTIVE DISCUSSION [facility] Start: 06-07-2022 DEPRESSION ASSESSMENT DEPRESSION ASS ESSMENT [facility] Start: 04-20-2022 End: 06-20-2022 Basic metabolic 2000 panel - Serum or Plasma BASIC METABOLIC PNL Lab Routine Bilateral lower extremity edema Expected: 04/20/2022, Expires: 06/20/2022 [facility] Work Phone: Comment on above: Expected: 04/20/2022 , Expires: 06/20/2022 Start: 04-15-2022 End: 06-15-2022 Comprehensive metabolic 2000 panel - Serum or Plasma [facility] Work Phone: Comment on above: Expected: 04/15/2022 , Expires: 06/15/2022 Start: 04-15-2022 End: 06-15-2022 Natriuretic peptide.B prohormone N-Terminal [Mass/volume] in Serum or Plasma [facility] Work Phone: Comment on above: Expected: 04/15/2022 , Expires: 06/15/2022 Start: 04-15-2022 End: 06-15-2022 Urinalysis complete panel - Urine [facility] Work Phone: Comment on above: Expected: 04/15/2022 , Expires: 06/15/2022 Start: 02-05-2022 Influenza vaccination INFLUENZA (#1) [facility] Start: 12-19-2021 End: 02-18-2022 CBC panel - Blood by Automated count CBC Lab Routine Anemia, unspecified type Expected: 12/19/2021, Expires: 02/18/2022 [facility] Work Phone: Comment on above: Expected: 12/19/2021 , Expires: 02/18/2022 Start: 12-17-2021 End: 09-12-2022 ALK PHOS ISOENZYM BL [facility] Work Phone: Comment on above: Expected: 12/17/2021 , Expires: 02/16/2022 Start: 12-17-2021 End: 02-16-2022 Gamma glutamyl transferase [Enzymatic activity/volume] in Serum or Plasma [facility] Work Phone: Comment on above: Expected: 12/17/2021 , Expires: 02/16/2022 Start: 12-12-2021 End: 02-11-2022 CBC W Auto Differential panel - Blood [facility] Work Phone: Comment on above: Expected: 12/12/2021 , Expires: 02/11/2022 Start: 12-12-2021 End: 02-11-2022 Comprehensive metabolic 2000 panel - Serum or Plasma [facility] Work Phone: Comment on above: Expected: 12/12/2021 , Expires: 02/11/2022 Start: 12-12-2021 End: 02-11-2022 Ferritin [Mass/volume] in Serum or Plasma [facility] Work Phone: Comment on above: Expected: 12/12/2021 , Expires: 02/11/2022 Start: 12-12-2021 End: 02-11-2022 Iron and Iron binding capacity panel - Serum or Plasma [facility] Work Phone: Comment on above: Expected: 12/12/2021 , Expires: 02/11/2022 Start: 11-06-2021 COVID-19 VACCINE (5 - Booster for Moderna series) COVID-19 VACCINE (5 - Booster for Moderna series) [facility] Start: 06-07-2021 ADVANCE DIRECTIVE DISCUSSION ADVANCE DIRECTIVE DISCUSSION [facility] Start: 06-07-2021 DEPRESSION ASSESSMENT DEPRESSION ASS ESSMENT [facility] Start: 10-13-2014 Urine microalbumin profile DTA P,TDAP,TD (1 - Tdap) [facility] Start: 2012 RSV Vaccine (1 - 1-d ose 75+ series) RSV Vaccine (1 - 1-dose 75+ series) [facility] Start: 08-02-2009 SHINGRIX VACCINE (2 of 3) VILLEDA GRIX VACCINE (2 of 3) [facility] Start: 12-12-2007 SHINGRIX VACCINE (2 of 3) VILLEDA GRIX VACCINE (2 of 3) [facility] Start: 1997 RSV Vaccine (1 - 1-d ose 60+ series) RSV Vaccine (1 - 1-dose 60+ series) [facility] Bacteria identified in Urine by Culture URINE CULTURE Microbiology Routine Bradycardia Urinary frequency 02/04/2023 4:38 PM EDT [facility] Work Phone: End: 10-31-2023 DXA-AXIAL SKELETON DXA-AXIAL SKELETON Radiology Routine Screening for osteoporosis 1 Occurrences starting 10/01/2022 until 10/31/2023 [facility] Work Phone: Comment on above: 1 Occurrences starti ng 10/01/2022 until 10/31/2023 End: 01-30-2024 ECG COMPLETE ECG COMPLETE ECG Routine Bradycardia 1 Occurrences starting 01/29/2023 until 01/30/2024 [facility] Work Phone: Comment on above: 1 Occurrences starti ng 01/29/2023 until 01/30/2024 End: 02-05-2024 ECG COMPLETE ECG COMPLETE ECG Routine Bradycardia 1 Occurrences starting 02/04/2023 until 02/05/2024 [facility] Work Phone: Comment on above: 1 Occurrences starti ng 02/04/2023 until 02/05/2024 End: 04-17-2023 Echocardiography ECHO Cardiology JULIAN Bilateral lower extremity edema Elevated brain natriuretic peptide (BNP) level 1 Occurrences starting 04/17/2022 until 04/17/2023 [facility] Work Phone: Comment on above: 1 Occurrences starti ng 04/17/2022 until 04/17/2023 Hemoglobin.gastroint estina l.lower [Presence] in Stool by Immunoassay FECAL OCCULT BLOOD TEST Lab Routine Encounter for screening fecal occult blood testing Ordered: 12/18/2022 [facility] Work Phone: Comment on above: Ordered: 12/18/2022 End: 06-17-2024 Radex spine lumbosacral 2/3 views XR LUMBAR GENERAL 3V AP/LAT/L5-S1 Radiology Routine Acute left-sided low back pain without sciatica 1 Occurrences starting 05/19/2023 until 06/17/2024 [facility] Work Phone: Comment on above: 1 Occurrences starti ng 05/19/2023 until 06/17/2024 [facility] Immunizations Immunization Date Immunization Notes Care Provider [place] encarnacion 03-23-2023 influenza virus vaccine, unspecified formulation Nathaly Spivey RN Work Phone: [facility] 09-30-2022 TD(adult) unspecifie d formulation Selene Hauser SCAFFOLD SETTER.PHARMACY ANALYST Work Phone: [facility] Work Phone: 09-30-2022 tetanus and diphther ia toxoids, adsorbed, preservative free, for adult use (5 Lf of tetanus toxoid and 2 Lf of diphtheria toxoid) Selene Hauser APRN.PHARMACY ANALYST Work Phone: [facility] 03-16-2022 COVID-19 booster vaccine, age 12+ yr, bivalent (PFIZER-BIONTRent My Items) Jordan Johnson MD Work Phone: [facility] 03-16-2022 influenza, high-dose , quadrivalent vaccine (FLUZONE HIGH DOSE QUADRIVALENT) Jordan Johnson MD Work Phone: [facility] 03-16-2022 influenza virus vaccine, unspecified formulation Wally Martinez RN [facility] 02-02-2022 tetanus toxoid, redu johnna diphtheria toxoid, and acellular pertussis vaccine, adsorbed Jordan Johnson MD Work Phone: [facility] Work Phone: 07-25-2021 COVID-19 original vaccine, full dose, monovalent (MODERNA) Jordan Johnson MD Work Phone: [facility] Work Phone: 06-27-2021 COVID-19 original vaccine, full dose, monovalent (MODERNA) Jordan Johnson MD Work Phone: [facility] Work Phone: 03-12-2021 influenza, high-dose , quadrivalent vaccine (FLUZONE HIGH DOSE QUADRIVALENT) Jordan Johnson MD Work Phone: [facility] 02-05-2021 influenza nasal, unspecified formulation Jordan Johnson MD Work Phone: [facility] Work Phone: 07-25-2020 COVID-19 vaccine, fu ll dose (MODERNA) Jordan Johnson MD Work Phone: [facility] 06-27-2020 COVID-19 vaccine, fu ll dose (MODERNA) Jordan Johnson MD Work Phone: [facility] 03-29-2020 influenza, high-dose , quadrivalent vaccine (FLUZONE HIGH DOSE QUADRIVALENT) Jordan Johnson MD Work Phone: [facility] Work Phone: 02-06-2020 influenza nasal, unspecified formulation Jordan Johnson MD Work Phone: [facility] Work Phone: 03-02-2019 influenza, high dose seasonal, preservative-free Joradn Johnson MD Work Phone: [facility] 03-05-2018 influenza, high dose seasonal, preservative-free Jordan Johnson MD Work Phone: [facility] 02-05-2018 influenza nasal, unspecified formulation Jordan Johnson MD Work Phone: [facility] Work Phone: 03-13-2017 influenza, high dose seasonal, preservative-free Jordan Johnson MD Work Phone: [facility] Work Phone: 02-05-2017 influenza nasal, unspecified formulation Jordan Johnson MD Work Phone: [facility] Work Phone: 09-08-2016 pneumococcal polysaccharide vaccine, 23 valent Jordan Johnson MD Work Phone: [facility] 02-19-2016 influenza, high dose seasonal, preservative-free Jordan Johnson MD Work Phone: [facility] 03-07-2015 influenza, high dose seasonal, preservative-free Jordan Johnson MD Work Phone: [facility] Work Phone: 10-12-2014 tetanus and diphther ia toxoids, adsorbed, preservative free, for adult use (5 Lf of tetanus toxoid and 2 Lf of diphtheria toxoid) Jordan Johnson MD Work Phone: [facility] 10-05-2014 pneumococcal conjuga te vaccine, 13 valent Jordan Johnson MD Work Phone: [facility] 03-14-2014 influenza, seasonal, injectable Jordan Johnson MD Work Phone: [facility] 02-05-2014 influenza nasal, unspecified formulation Jordan Johnson MD Work Phone: [facility] Work Phone: 02-05-2013 influenza nasal, unspecified formulation Jordan Johnson MD Work Phone: [facility] Work Phone: 03-09-2012 influenza nasal, unspecified formulation Jordan Johnson MD Work Phone: [facility] Work Phone: 03-25-2010 influenza virus vaccine, unspecified formulation Jordan Johnson MD Work Phone: [facility] 09-05-2009 pneumococcal polysaccharide vaccine, 23 valent Jordan Johnson MD Work Phone: [facility] 06-07-2009 zoster vaccine, live Titus Johnson MD Work Phone: [facility] Work Phone: 03-12-2009 influenza nasal, unspecified formulation Jordan Johnson MD Work Phone: [facility] Work Phone: 03-29-2008 influenza nasal, unspecified formulation Jordan Johnson MD Work Phone: [facility] Work Phone: 10-17-2007 zoster vaccine, live Titus Johnson MD Work Phone: [facility] 04-07-2007 influenza nasal, unspecified formulation Jordan Johnson MD Work Phone: [facility] Work Phone: 04-11-2002 influenza nasal, unspecified formulation Jordan Johnson MD Work Phone: [facility] Work Phone: Payers Date Payer Category Payer Medicare HU[employer]NA MEDICARE HU[employer]NA MEDICARE PPO [id number] 2020-Present [phone] [place] [address] PPO [id number] 2020 Medicare [id number] 2019 Medicare [id number] Social History Date Type Detail Facility Start: 12-25-2013 End: 06-09-2017 Tobacco smoking status NHIS Ex-smoker [facility] End: 06-07-1994 History of tobacco use Current smoker [facility] End: 06-07-1994 History of tobacco use Cigarette Smoker [facility] Start: 12-25-2013 End: 05-13-2020 Cigarettes smoked current (pack per day) - Reported 0.2 [facility] Start: 12-25-2013 End: 06-09-2017 Tobacco use and exposure Smokeless tobacco non-user [facility] Start: 08-20-2020 End: 08-13-2021 Alcohol intake Current non-drinker of alcohol (finding) [facility] Start: 10-07-2019 End: 04-09-2022 History SDOH Alcohol Frequency 1 [facility] Start: 12-05-2019 End: 04-09-2022 History SDOH Social Connections Phone 2 [facility] Start: 06-07-2019 End: 05-05-2022 History SDOH Social Connections Congregation 3 [facility] Start: 12-05-2019 End: 05-05-2022 History SDOH Physical Activity DPW 98 [facility] Start: 06-07-2019 End: 05-05-2022 History SDOH Physical Activity MPS 0 [facility] Start: 06-07-2019 End: 05-05-2022 History SDOH Financial 5 [facility] Start: 06-07-2019 Education 14 [facility] Start: 12-25-2013 End: 02-03-2022 Tobacco Comment quit 10 years ago [facility] Start: 1935 Sex Assigned At Not on file [facility] Start: 07-21-2020 End: 04-22-2022 Exposure to SARS-CoV-2 (event) Not sure [facility] Start: 05-13-2020 End: 05-04-2022 Social connection and isolation panel [facility] How often do you get together with friends or relatives? Patient refused [facility] How often to you hav e a drink containing alcohol? Never [facility] Do you feel stress - tense, restless, nervous, or anxious, or unable to sleep at night because your mind is troubled all the time - these days [OSQ] Not at all [facility] The food that (I/we) bought just didn't last, and (I/we) didn't have money to get more. Never true [facility] At any time in the p ast 12 months, were you homeless or living in usp [including now]? No [facility] Start: 09-12-2018 Gender identity Identifies as male gender (finding) [facility] Start: 09-12-2018 Sexual orientation Heterosexual (dylan choi) [facility] Do you feel stress - tense, restless, nervous, or anxious, or unable to sleep at night because your mind is troubled all the time - these days [OSQ] Only a little [facility] Medical Equipment Procedure Code Equipment Code Equipment Origin al Text Equipment Identifier Dates [place] [employer] Corkscrew 5.5mm - [id number] Start: 11-13-2010 Anchr [employer] 4.75x24.5mm - [id number] Start: 11-13-2010 Goals Date Patient Goal Desired Activity /State Personal health goal Comment on above: Formatting of this n ote might be different from the original. Patient has the following Chronic Kidney Disease goals: Two PCP visits annually Education provided and reviewed with patient - sent on 04/16/23 CKD YASSINE Education - CKD (ALL) Patient will meet these goals by: 06/06/24 (describe interventions done by PCC) Personal health goal Comment on above: Formatting of this n ote might be different from the original. Patient has the following High Blood Pressure/Hypertension Goals: Two PCP Visits annually HTN Education given and reviewed with patient -- Medication compliance education Patient will meet these goals by 06/06/24 (describe interventions done by PCC) Clinical Notes 11-19-2015 to 02-22-2024 Nathaly Spivey RN - 02/22/2024 12:33 PM Aparna Marquez RN - 01/24/2024 3:03 PM Nathaly Russell RN - 01/20/2024 1:45 PM Nathaly Russell RN - 12/17/2023 5:32 PM EDTPatient Instructions Note Date & Type Note Facility 02-22-2024 Note HNO ID: [id number] Author: NATHALY SPIVEY RN Service: ? Author Type: Registered Nurse Type: Progress Notes Filed: 02/22/2024 12:48 Note Text: CDM Telephonic Outreach Provider Action/FYI Now living in [facility] Denies any new or worsening symptoms Contacted for: Routine Telephonic Outreach Contact made with patient: Yes Patient identified by name and date of . Discussed care with patient Are you experiencing any new or worsening symptoms you need to talk about today? No Disease Specific Do you check your blood pressure at home? No Do you have new or worsening shortness of breath with activity? No Do you feel like you are dehydrated for any reason, including not being able to eat or drink normally, or having less urine/much darker urine than normal for you? No Do you check your daily weight at home? No Based on commercial sales consultant, the following disposition is advised: No symptoms or symptoms present, not severe. Routed to: No Action Needed YASSINE Education Provided this Outreach: No Nathaly Spivey RN February 22, 2024 12:39 PM [facility] 02-22-2024 History of Present illness Narrative CD Telephonic Outreach Provider Gena/JUJU Now living in [place] assisted living Denies any new or worsening symptoms Contacted for: Routine Telephonic Outreach Contact made with patient: Yes Patient identified by name and date of . Discussed care with patient Are you experiencing any new or worsening symptoms you need to talk about today? No Disease Specific Do you check your blood pressure at home? No Do you have new or worsening shortness of breath with activity? No Do you feel like you are dehydrated for any reason, including not being able to eat or drink normally, or having less urine/much darker urine than normal for you? No Do you check your daily weight at home? No Based on commercial sales consultant, the following disposition is advised: No symptoms or symptoms present, not severe. Routed to: No Action Needed YASSINE Education Provided this Outreach: No Nathaly Spivey RN February 22, 2024 12:39 PM documented in this encounter [facility] 02-22-2024 Note Patient Outreach ([facility]) ATIF COLÓN ([id number]) 1935 M Date Time Provider Department 02/22/24 [place]AL[place]IVE[place] [facility] During your visit today, we recorded the following information about you: Nathaly Spivey RN 02/22/2024 12:48 PM Signed [facility] Telephonic Outreach Provider Gena/JUJU Now living in [place] assisted living Denies any new or worsening symptoms Contacted for: Routine Telephonic Outreach Contact made with patient: Yes Patient identified by name and date of . Discussed care with patient Are you experiencing any new or worsening symptoms you need to talk about today? No Disease Specific Do you check your blood pressure at home? No Do you have new or worsening shortness of breath with activity? No Do you feel like you are dehydrated for any reason, including not being able to eat or drink normally, or having less urine/much darker urine than normal for you? No Do you check your daily weight at home? No Based on commercial sales consultant, the following disposition is advised: No symptoms or symptoms present, not severe. Routed to: No Action Needed YASSINE Education Provided this Outreach: No Nathaly Spivey RN February 22, 2024 12:39 PM Allergies As of Date: 02/22/2024 Noted Allergy Reaction ASPIRIN 09/23/2010 8 - GI Upset PENICILLINS 10/28/2009 2 - Rash Date Reviewed: 10/25/2023 Reviewed by: Cameron Vitale LPN - Fully Assessed Reason for Visit: cdm [Other] Cmt: Check in call Prescriptions as of 02/22/2024 - cyclobenzaprine (FLEXERIL) 5 mg tablet Take 1 tablet by mouth two times a day as needed for muscle spasm. - acetaminophen 325 mg cap Take 2 capsules by mouth two times a day as needed for pain. - melatonin 10 mg tab Take 1 tablet by mouth daily at bedtime. - sertraline (ZOLOFT) 50 mg tablet Take 1 tablet by mouth once daily. - donepezil (ARICEPT) 5 mg tablet Take 1 tablet by mouth daily at bedtime. - pantoprazole sodium (PANTOPRAZOLE ORAL) Take 40 mg by mouth twice daily. - Multivitamin capsule Take 1 capsule by mouth once daily. - ondansetron orally disintegrating (ZOFRAN ODT) 4 mg disintegrating tablet Take 1 tablet by mouth every 8 hours as needed for nausea/vomiting. - amLODIPine (NORVASC) 2.5 mg tablet Take 1 tablet by mouth once daily. - finasteride (PROSCAR) 5 mg tablet Take 1 tablet by mouth once daily. 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, M12.819]06/21/2012 Recurrent right inguinal hernia [K40.91] 12/25/2013 Essential hypertension [I10] 06/11/2014 RLS (restless legs syndrome) [G25.81] 09/20/2014 Mild cognitive impairment [G31.84] 09/19/2015 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/19/2015 Elevated prostate specific antigen (PSA) [R97.2*11/19/2015 06/12/2021 BPH (benign prostatic hyperplasia) [N40.0] GERD (gastroesophageal reflux disease) [K21.9] Osteoarthritis [M19.90] Hypertension [I10] 06/09/2017 Elevated PSA [R97.20] 06/09/2017 CKD (chronic kidney disease), stage III (HCC) [* Iron deficiency anemia [D50.9] Acute pain of right shoulder [M25.511] 06/08/2019 Acute pain of left shoulder [M25.512] 05/14/2022 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 Author Type: Registered Nurse Type: Progress Notes Filed: 01/24/2024 15:38 Note Text: CD Telephonic Outreach Provider Gena/JUJU Contacted for: Routine Telephonic Outreach Contact made with patient: Yes Patient identified by name and date of . Discussed care with patient Are you experiencing any new or worsening symptoms you need to talk about today? No Disease Specific Do you check your blood pressure at home? No Do you have new or worsening shortness of breath with activity? No Based on commercial sales consultant, the following disposition is advised: No symptoms or symptoms present, not severe. Routed to: No Action Needed YASSINE Education Provided this Outreach: No Aparna Vo RN January 24, 2024 3:38 PM [facility] 01-24-2024 History of Present illness Narrative [facility] Telephonic Outreach Provider Gena/JUJU Contacted for: Routine Telephonic Outreach Contact made with patient: Yes Patient identified by name and date of . Discussed care with patient Are you experiencing any new or worsening symptoms you need to talk about today? No Disease Specific Do you check your blood pressure at home? No Do you have new or worsening shortness of breath with activity? No Based on commercial sales consultant, the following disposition is advised: No symptoms or symptoms present, not severe. Routed to: No Action Needed YASSINE Education Provided this Outreach: No Aparna Vo RN January 24, 2024 3:38 PM documented in this encounter [facility] 01-24-2024 Note Patient Outreach ([facility]) ATIF COLÓN ([id number]) 1935 M Date Time Provider Department 01/24/24 APARNA VO During your visit today, we recorded the following information about you: Aparna Vo RN 01/24/2024 3:38 PM Signed [facility] Telephonic Outreach Provider Action/FYI Contacted for: Routine Telephonic Outreach Contact made with patient: Yes Patient identified by name and date of . Discussed care with patient Are you experiencing any new or worsening symptoms you need to talk about today? No Disease Specific Do you check your blood pressure at home? No Do you have new or worsening shortness of breath with activity? No Based on commercial sales consultant, the following disposition is advised: No symptoms or symptoms present, not severe. Routed to: No Action Needed YASSINE Education Provided this Outreach: No Aparna Vo RN January 24, 2024 3:38 PM Allergies As of Date: 01/24/2024 Noted Allergy Reaction ASPIRIN 09/23/2010 8 - GI Upset PENICILLINS 10/28/2009 2 - Rash Date Reviewed: 10/25/2023 Reviewed by: Cameron Vitale LPN - Fully Assessed Reason for Visit: Community Monitoring Outreach [Other] Cmt: Follow up Prescriptions as of 01/24/2024 - cyclobenzaprine (FLEXERIL) 5 mg tablet Take 1 tablet by mouth two times a day as needed for muscle spasm. - acetaminophen 325 mg cap Take 2 capsules by mouth two times a day as needed for pain. - melatonin 10 mg tab Take 1 tablet by mouth daily at bedtime. - sertraline (ZOLOFT) 50 mg tablet Take 1 tablet by mouth once daily. - donepezil (ARICEPT) 5 mg tablet Take 1 tablet by mouth daily at bedtime. - pantoprazole sodium (PANTOPRAZOLE ORAL) Take 40 mg by mouth twice daily. - Multivitamin capsule Take 1 capsule by mouth once daily. - ondansetron orally disintegrating (ZOFRAN ODT) 4 mg disintegrating tablet Take 1 tablet by mouth every 8 hours as needed for nausea/vomiting. - amLODIPine (NORVASC) 2.5 mg tablet Take 1 tablet by mouth once daily. - finasteride (PROSCAR) 5 mg tablet Take 1 tablet by mouth once daily. 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]06/21/2012 Recurrent right inguinal hernia [K40.91] 12/25/2013 Essential hypertension [I10] 06/11/2014 RLS (restless legs syndrome) [G25.81] 09/20/2014 Mild cognitive impairment [G31.84] 09/19/2015 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/19/2015 Elevated prostate specific antigen (PSA) [R97.2*11/19/2015 06/12/2021 BPH (benign prostatic hyperplasia) [N40.0] GERD (gastroesophageal reflux disease) [K21.9] Osteoarthritis [M19.90] Hypertension [I10] 06/09/2017 Elevated PSA [R97.20] 06/09/2017 CKD (chronic kidney disease), stage III (HCC) [* Iron deficiency anemia [D50.9] Acute pain of right shoulder [M25.511] 06/08/2019 Acute pain of left shoulder [M25.512] 05/14/2022 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 Author Type: Registered Nurse Type: Progress Notes Filed: 01/20/2024 13:46 Note Text: CDM Telephonic Outreach Provider Action/FYI Contacted for: Routine Telephonic Outreach Contact made with patient: No, left message. Nathaly Spivey RN January 20, 2024 1:46 PM [facility] 01-20-2024 History of Present illness Narrative [facility] Telephonic Outreach Provider Action/FYI Contacted for: Routine Telephonic Outreach Contact made with patient: No, left message. Nathaly Spivey RN January 20, 2024 1:46 PM documented in this encounter [facility] 01-20-2024 Note Patient Outreach ([facility]) ATIF COLÓN ([id number]) 1935 M Date Time Provider Department 01/20/24 NATHALY SPIVEY [facility] your visit today, we recorded the following information about you: Nathaly Spivey RN 01/20/2024 1:46 PM Signed [facility] Telephonic Outreach Provider Action/JUJU Contacted for: Routine Telephonic Outreach Contact made with patient: No, left message. Nathaly Spivey RN January 20, 2024 1:46 PM Allergies As of Date: 01/20/2024 Noted Allergy Reaction ASPIRIN 09/23/2010 8 - GI Upset PENICILLINS 10/28/2009 2 - Rash Date Reviewed: 10/25/2023 Reviewed by: Cameron Vitale LPN - Fully Assessed Reason for Visit: cdm [Other] Cmt: Check in call Prescriptions as of 01/20/2024 - cyclobenzaprine (FLEXERIL) 5 mg tablet Take 1 tablet by mouth two times a day as needed for muscle spasm. - acetaminophen 325 mg cap Take 2 capsules by mouth two times a day as needed for pain. - melatonin 10 mg tab Take 1 tablet by mouth daily at bedtime. - sertraline (ZOLOFT) 50 mg tablet Take 1 tablet by mouth once daily. - donepezil (ARICEPT) 5 mg tablet Take 1 tablet by mouth daily at bedtime. - pantoprazole sodium (PANTOPRAZOLE ORAL) Take 40 mg by mouth twice daily. - Multivitamin capsule Take 1 capsule by mouth once daily. - ondansetron orally disintegrating (ZOFRAN ODT) 4 mg disintegrating tablet Take 1 tablet by mouth every 8 hours as needed for nausea/vomiting. - amLODIPine (NORVASC) 2.5 mg tablet Take 1 tablet by mouth once daily. - finasteride (PROSCAR) 5 mg tablet Take 1 tablet by mouth once daily. 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]06/21/2012 Recurrent right inguinal hernia [K40.91] 12/25/2013 Essential hypertension [I10] 06/11/2014 RLS (restless legs syndrome) [G25.81] 09/20/2014 Mild cognitive impairment [G31.84] 09/19/2015 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/19/2015 Elevated prostate specific antigen (PSA) [R97.2*11/19/2015 06/12/2021 BPH (benign prostatic hyperplasia) [N40.0] GERD (gastroesophageal reflux disease) [K21.9] Osteoarthritis [M19.90] Hypertension [I10] 06/09/2017 Elevated PSA [R97.20] 06/09/2017 CKD (chronic kidney disease), stage III (HCC) [* Iron deficiency anemia [D50.9] Acute pain of right shoulder [M25.511] 06/08/2019 Acute pain of left shoulder [M25.512] 05/14/2022 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 Author Type: Registered Nurse Type: Progress Notes Filed: 12/17/2023 17:33 Note Text: [facility] Telephonic Outreach Provider Action/FYI Denies any new or worsening symptoms Contacted for: Routine Telephonic Outreach Contact made with patient: Yes Patient identified by name and date of . Discussed care with patient Are you experiencing any new or worsening symptoms you need to talk about today? No Disease Specific Do you check your blood pressure at home? No Do you have new or worsening shortness of breath with activity? No Do you feel like you are dehydrated for any reason, including not being able to eat or drink normally, or having less urine/much darker urine than normal for you? No Do you check your daily weight at home? No Based on commercial sales consultant, the following disposition is advised: No symptoms or symptoms present, not severe. Routed to: No Action Needed YASSINE Education Provided this Outreach: No Nathaly Spivey RN December 17, 2023 5:32 PM [facility] 12-17-2023 History of Present illness Narrative CD Telephonic Outreach Provider Action/FYI Denies any new or worsening symptoms Contacted for: Routine Telephonic Outreach Contact made with patient: Yes Patient identified by name and date of . Discussed care with patient Are you experiencing any new or worsening symptoms you need to talk about today? No Disease Specific Do you check your blood pressure at home? No Do you have new or worsening shortness of breath with activity? No Do you feel like you are dehydrated for any reason, including not being able to eat or drink normally, or having less urine/much darker urine than normal for you? No Do you check your daily weight at home? No Based on commercial sales consultant, the following disposition is advised: No symptoms or symptoms present, not severe. Routed to: No Action Needed YASSINE Education Provided this Outreach: No Nathaly Spivey RN December 17, 2023 5:32 PM documented in this encounter [facility] 12-17-2023 Note Patient Outreach ([facility]) ATIF COLÓN ([id number]) 1935 M Date Time Provider Department 12/17/23 NATHALY SPIVEY [facility] your visit today, we recorded the following information about you: Nathaly Spivey RN 12/17/2023 5:33 PM Signed [facility] Telephonic Outreach Provider Action/FYI Denies any new or worsening symptoms Contacted for: Routine Telephonic Outreach Contact made with patient: Yes Patient identified by name and date of . Discussed care with patient Are you experiencing any new or worsening symptoms you need to talk about today? No Disease Specific Do you check your blood pressure at home? No Do you have new or worsening shortness of breath with activity? No Do you feel like you are dehydrated for any reason, including not being able to eat or drink normally, or having less urine/much darker urine than normal for you? No Do you check your daily weight at home? No Based on commercial sales consultant, the following disposition is advised: No symptoms or symptoms present, not severe. Routed to: No Action Needed YASSINE Education Provided this Outreach: No Nathaly Spivey RN December 17, 2023 5:32 PM Allergies As of Date: 12/17/2023 Noted Allergy Reaction ASPIRIN 09/23/2010 8 - GI Upset PENICILLINS 10/28/2009 2 - Rash Date Reviewed: 10/25/2023 Reviewed by: Cameron Vitale LPN - Fully Assessed Reason for Visit: cdm [Other] Cmt: Check in call Prescriptions as of 12/17/2023 - cyclobenzaprine (FLEXERIL) 5 mg tablet Take 1 tablet by mouth two times a day as needed for muscle spasm. - acetaminophen 325 mg cap Take 2 capsules by mouth two times a day as needed for pain. - melatonin 10 mg tab Take 1 tablet by mouth daily at bedtime. - sertraline (ZOLOFT) 50 mg tablet Take 1 tablet by mouth once daily. - donepezil (ARICEPT) 5 mg tablet Take 1 tablet by mouth daily at bedtime. - pantoprazole sodium (PANTOPRAZOLE ORAL) Take 40 mg by mouth twice daily. - Multivitamin capsule Take 1 capsule by mouth once daily. - ondansetron orally disintegrating (ZOFRAN ODT) 4 mg disintegrating tablet Take 1 tablet by mouth every 8 hours as needed for nausea/vomiting. - amLODIPine (NORVASC) 2.5 mg tablet Take 1 tablet by mouth once daily. - finasteride (PROSCAR) 5 mg tablet Take 1 tablet by mouth once daily. 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/19/2015 Elevated prostate specific antigen (PSA) [R97.2*11/19/2015 06/12/2021 BPH (benign prostatic hyperplasia) [N40.0] GERD (gastroesophageal reflux disease) [K21.9] Osteoarthritis [M19.90] Hypertension [I10] 06/09/2017 Elevated PSA [R97.20] 06/09/2017 CKD (chronic kidney disease), stage III (HCC) [* Iron deficiency anemia [D50.9] Acute pain of right shoulder [M25.511] 06/08/2019 Acute pain of left shoulder [M25.512] 05/14/2022 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 Author Type: Registered Nurse Type: Progress Notes Filed: 11/19/2023 10:29 Note Text: CDM Telephonic Outreach Provider Action/FYI Spoke to daughter celeste moreno at [facility] Contacted for: Routine Telephonic Outreach Contact made with patient: Yes Patient identified by name and date of . Discussed care with daughter Are you experiencing any new or worsening symptoms you need to talk about today? No Disease Specific Do you check your blood pressure at home? No Do you have new or worsening shortness of breath with activity? No Do you feel like you are dehydrated for any reason, including not being able to eat or drink normally, or having less urine/much darker urine than normal for you? No Do you check your daily weight at home? No Based on commercial sales consultant, the following disposition is advised: No symptoms or symptoms present, not severe. Routed to: No Action Needed YASSINE Education Provided this Outreach: No Nathaly Spivey RN November 19, 2023 10:26 AM and Goals/Falls/ADL Update Contact made with patient: Yes Patient identified by name and date of . Discussed care with: patient Goal Setting I would like to take some time today to discuss your personal health goals. Patient does not have a goal. We will review during our next conversations to help support you. Most people know what to do to become healthier, yet struggle to put it into action on their own, It can be hard to maintain a healthy lifestyle, especially when life is so stressful. Can we connect you with a [facility] [employer]er to find a program that could help you meet your goals? No Falls completed:Yes ADL's updated: Yes Are you experiencing any new or worsening symptoms you need to talk about today? [facility] 11-19-2023 History of Present illness Narrative [facility] Telephonic Outreach Provider Gena/JUJU Spoke to daughter celeste moreno at [facility] Contacted for: Routine Telephonic Outreach Contact made with patient: Yes Patient identified by name and date of . Discussed care with daughter Are you experiencing any new or worsening symptoms you need to talk about today? No Disease Specific Do you check your blood pressure at home? No Do you have new or worsening shortness of breath with activity? No Do you feel like you are dehydrated for any reason, including not being able to eat or drink normally, or having less urine/much darker urine than normal for you? No Do you check your daily weight at home? No Based on commercial sales consultant, the following disposition is advised: No symptoms or symptoms present, not severe. Routed to: No Action Needed YASSINE Education Provided this Outreach: No Nathaly Spivey RN November 19, 2023 10:26 AM and Goals/Falls/ADL Update Contact made with patient: Yes Patient identified by name and date of . Discussed care with: patient Goal Setting I would like to take some time today to discuss your personal health goals. Patient does not have a goal. We will review during our next conversations to help support you. Most people know what to do to become healthier, yet struggle to put it into action on their own, It can be hard to maintain a healthy lifestyle, especially when life is so stressful. Can we connect you with a [facility] [employer] to find a program that could help you meet your goals? No Falls completed:Yes ADL's updated: Yes Are you experiencing any new or worsening symptoms you need to talk about today? CDM Telephonic Outreach Provider Action/FYI Contacted for: Routine Telephonic Outreach Contact made with patient: No, left message. Nathaly Spivey RN November 18, 2023 1:10 PM and Goals/Falls/ADL Update Contact made with patient: No, left message. Nathaly Spivey RN November 18, 2023 1:10 PM documented in this encounter [facility] 11-18-2023 Note HNO ID: [id number] Author: NATHALY SPIVEY RN Service: ? Author Type: Registered Nurse Type: Progress Notes Filed: 11/19/2023 10:29 Note Text: CDM Telephonic Outreach Provider Action/FYI Contacted for: Routine Telephonic Outreach Contact made with patient: No, left message. Nathaly Spivey RN November 18, 2023 1:10 PM and Goals/Falls/ADL Update Contact made with patient: No, left message. Nathaly Spivey RN November 18, 2023 1:10 PM [facility] 11-18-2023 Note Patient Outreach ([facility] ATIF COLÓN ([id number]) 1935 M Date Time Provider Department 11/18/23 N[place]IVE[place] [facility] [place] your visit today, we recorded the following information about you: Nathaly Spivey RN 11/19/2023 10:29 AM Signed CDM Telephonic Outreach Provider Action/FYI Contacted for: Routine Telephonic Outreach Contact made with patient: No, left message. Nathaly Spivey RN November 18, 2023 1:10 PM and Goals/Falls/ADL Update Contact made with patient: No, left message. Nathaly Spivey RN November 18, 2023 1:10 PM Nathaly Spivey RN 11/19/2023 10:29 AM Signed CDM Telephonic Outreach Provider Gena/JUJU Spoke to daughter celeste Pt remains at [facility] Contacted for: Routine Telephonic Outreach Contact made with patient: Yes Patient identified by name and date of . Discussed care with daughter Are you experiencing any new or worsening symptoms you need to talk about today? No Disease Specific Do you check your blood pressure at home? No Do you have new or worsening shortness of breath with activity? No Do you feel like you are dehydrated for any reason, including not being able to eat or drink normally, or having less urine/much darker urine than normal for you? No Do you check your daily weight at home? No Based on commercial sales consultant, the following disposition is advised: No symptoms or symptoms present, not severe. Routed to: No Action Needed YASSINE Education Provided this Outreach: No Nathaly Spivey RN November 19, 2023 10:26 AM and Goals/Falls/ADL Update Contact made with patient: Yes Patient identified by name and date of . Discussed care with: patient Goal Setting I would like to take some time today to discuss your personal health goals. Patient does not have a goal. We will review during our next conversations to help support you. Most people know what to do to become healthier, yet struggle to put it into action on their own, It can be hard to maintain a healthy lifestyle, especially when life is so stressful. Can we connect you with a [facility] [employer] to find a program that could help you meet your goals? No Falls completed:Yes ADL's updated: Yes Are you experiencing any new or worsening symptoms you need to talk about today? Allergies As of Date: 11/18/2023 Noted Allergy Reaction ASPIRIN 09/23/2010 8 - GI Upset PENICILLINS 10/28/2009 2 - Rash Date Reviewed: 10/25/2023 Reviewed by: Cameron Vitale LPN - Fully Assessed Reason for Visit: cdm [Other] Cmt: Check in call Prescriptions as of 11/19/2023 - cyclobenzaprine (FLEXERIL) 5 mg tablet Take 1 tablet by mouth two times a day as needed for muscle spasm. - acetaminophen 325 mg cap Take 2 capsules by mouth two times a day as needed for pain. - melatonin 10 mg tab Take 1 tablet by mouth daily at bedtime. - sertraline (ZOLOFT) 50 mg tablet Take 1 tablet by mouth once daily. - donepezil (ARICEPT) 5 mg tablet Take 1 tablet by mouth daily at bedtime. - pantoprazole sodium (PANTOPRAZOLE ORAL) Take 40 mg by mouth twice daily. - Multivitamin capsule Take 1 capsule by mouth once daily. - ondansetron orally disintegrating (ZOFRAN ODT) 4 mg disintegrating tablet Take 1 tablet by mouth every 8 hours as needed for nausea/vomiting. - amLODIPine (NORVASC) 2.5 mg tablet Take 1 tablet by mouth once daily. - finasteride (PROSCAR) 5 mg tablet Take 1 tablet by mouth once daily. 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]06/21/2012 Recurrent right inguinal hernia [K40.91] 12/25/2013 Essential hypertension [I10] 06/11/2014 RLS (restless legs syndrome) [G25.81] 09/20/2014 Mild cognitive impairment [G31.84] 09/19/2015 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/19/2015 Elevated prostate specific antigen (PSA) [R97.2*11/19/2015 06/12/2021 BPH (benign prostatic hyperplasia) [N40.0] GERD (gastroesophageal reflux disease) [K21.9] Osteoarthritis [M19.90] Hypertension [I10] 06/09/2017 Elevated PSA [R97.20] 06/09/2017 CKD (chronic kidney disease), stage III (HCC) [* Iron deficiency anemia [D50.9] Acute pain of right shoulder [M25.511] 06/08/2019 Acute pain of left shoulder [M25.512] 05/14/2022 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 [facility] 11-03-2023 Note HNO ID: [id number] Author: NATHALY SPIVEY RN Service: ? Author Type: Registered Nurse Type: Progress Notes Filed: 11/03/2023 10:24 Note Text: [facility] Telephonic Outreach Provider Action/FYI Contacted for: Routine Telephonic Outreach Contact made with patient: No, unable to leave message. Will reattempt call Nathaly Spivey RN November 03, 2023 10:23 AM and Goals/Falls/ADL Update Contact made with patient: No, unable to leave message. Will reattempt call Nathaly Spivey RN November 03, 2023 10:23 AM [facility] 11-03-2023 History of Present illness Narrative [facility] Telephonic Outreach Provider Action/FYI Contacted for: Routine Telephonic Outreach Contact made with patient: No, unable to leave message. Will reattempt call Nathaly Spivey RN November 03, 2023 10:23 AM and Goals/Falls/ADL Update Contact made with patient: No, unable to leave message. Will reattempt call Nathaly Spivey RN November 03, 2023 10:23 AM [facility] Telephonic Outreach Provider Action/FYI Contacted for: Routine Telephonic Outreach Contact made with patient: No, left message. Nathaly Spivey RN November 02, 2023 12:45 PM and Goals/Falls/ADL Update Contact made with patient: No, left message. Nathaly Spivey RN November 02, 2023 12:45 PM documented in this encounter [facility] 11-02-2023 Note HNO ID: [id number] Author: NATHALY SPIVEY RN Service: ? Author Type: Registered Nurse Type: Progress Notes Filed: 11/03/2023 10:24 Note Text: CD Telephonic Outreach Provider Action/FYI Contacted for: Routine Telephonic Outreach Contact made with patient: No, left message. Nathaly Spivey RN November 02, 2023 12:45 PM and Goals/Falls/ADL Update Contact made with patient: No, left message. Nathaly Spivey RN November 02, 2023 12:45 PM [facility] 11-02-2023 Note Patient Outreach (AM [facility]) ATIF COLÓN ([id number]) 1935 M Date Time Provider Department 11/02/23 N[place]AL[place]IVE[place] [facility] [place] your visit today, we recorded the following information about you: Nathaly Spivey RN 11/03/2023 10:24 AM Signed [facility] Telephonic Outreach Provider Action/FYI Contacted for: Routine Telephonic Outreach Contact made with patient: No, left message. Nathaly Spivey RN November 02, 2023 12:45 PM and Goals/Falls/ADL Update Contact made with patient: No, left message. Nathaly Spivey RN November 02, 2023 12:45 PM Nathaly Spivey RN 11/03/2023 10:24 AM Signed CDM Telephonic Outreach Provider Action/FYI Contacted for: Routine Telephonic Outreach Contact made with patient: No, unable to leave message. Will reattempt call Nathaly Spivey RN November 03, 2023 10:23 AM and Goals/Falls/ADL Update Contact made with patient: No, unable to leave message. Will reattempt call Nathaly Spivey RN November 03, 2023 10:23 AM Allergies As of Date: 11/02/2023 Noted Allergy Reaction ASPIRIN 09/23/2010 8 - GI Upset PENICILLINS 10/28/2009 2 - Rash Date Reviewed: 10/25/2023 Reviewed by: Cameron Vitale LPN - Fully Assessed Reason for Visit: cdm [Other] Cmt: Check in call Prescriptions as of 11/03/2023 - cyclobenzaprine (FLEXERIL) 5 mg tablet Take 1 tablet by mouth two times a day as needed for muscle spasm. - acetaminophen 325 mg cap Take 2 capsules by mouth two times a day as needed for pain. - melatonin 10 mg tab Take 1 tablet by mouth daily at bedtime. - sertraline (ZOLOFT) 50 mg tablet Take 1 tablet by mouth once daily. - donepezil (ARICEPT) 5 mg tablet Take 1 tablet by mouth daily at bedtime. - pantoprazole sodium (PANTOPRAZOLE ORAL) Take 40 mg by mouth twice daily. - Multivitamin capsule Take 1 capsule by mouth once daily. - ondansetron orally disintegrating (ZOFRAN ODT) 4 mg disintegrating tablet Take 1 tablet by mouth every 8 hours as needed for nausea/vomiting. - amLODIPine (NORVASC) 2.5 mg tablet Take 1 tablet by mouth once daily. - finasteride (PROSCAR) 5 mg tablet Take 1 tablet by mouth once daily. 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]06/21/2012 Recurrent right inguinal hernia [K40.91] 12/25/2013 Essential hypertension [I10] 06/11/2014 RLS (restless legs syndrome) [G25.81] 09/20/2014 Mild cognitive impairment [G31.84] 09/19/2015 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/19/2015 Elevated prostate specific antigen (PSA) [R97.2*11/19/2015 06/12/2021 BPH (benign prostatic hyperplasia) [N40.0] GERD (gastroesophageal reflux disease) [K21.9] Osteoarthritis [M19.90] Hypertension [I10] 06/09/2017 Elevated PSA [R97.20] 06/09/2017 CKD (chronic kidney disease), stage III (HCC) [* Iron deficiency anemia [D50.9] Acute pain of right shoulder [M25.511] 06/08/2019 Acute pain of left shoulder [M25.512] 05/14/2022 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 Pt told them he just had them done here. I faxed over the [facility] he had done her to # [phone]. I told her he had some other fairly recent labs but they were done at [facility], she said she would send a release request to them. [facility] 10-29-2023 Miscellaneous Notes Jossie with [facility]uff's office called in and reports provider had wanted Pt to get labs and urine tests done. Pt told them he just had them done here. I faxed over the CMP he had done her to # [phone]. I told her he had some other fairly recent labs but they were done at [facility], she said she would send a release request to them. documented in this encounter [facility] 10-25-2023 History of Present illness Narrative 10/25/2023 Patient presents with: F/U 3 Month MMSE: Needs letter completed SUBJECTIVE: This is a 88 year old, accompanied by daughter, that is here today for Above Complaints. Since last office visit has been in good health without ER visits or hospitalizations. No recent falls Needing cognitive screening and paperwork for insurance completed. Patient with diagnosis of Alzheimer documented on his 01/15/2023 discharge paperwork from [facility]. Started on Aricept during hospitalization although he was originally placed on Aricept on 09/19/2015 for mild cognitive impairment, however does not appear he took it long based on documentation I see in EPIC. He adits he can have difficulty recalling names otherwise he feels his clemencia is good. At some point he was told not to drive anymore so he doesn't. MMSE today 29/30 Depression: taking Zoloft as prescribed without side effects. Denies feeling depressed, SI, HI or insomnia. Competed some grief counseling after passed last year, Currently not in counseling. PHQ9: 2 CKD: Avoids NSAID products and eat low salt diet HTN: Patient is compliant with meds Yes Monitors bp at home: occasionally . Denies side effects: Yes. Chest pain: No. Dyspnea: No. Edema: No. Palpitations: No. Syncope: No. Headache: No. Dizziness: occasionally . BPH: Taking Proscar as prescribed without side effects. Admits to nocturia x 2. Denies weal stream, straining to urinate, dysuria, or hematuria GERD: taking pantoprazole as prescribed without side effects. Controls symptos PAST MEDICAL HISTORY Diagnosis Date Abdominal pain, epigastric BPH (benign prostatic hyperplasia) CKD (chronic kidney disease), stage III (HCC) Dr. Childress DDD (degenerative disc disease), lumbar Depression Elevated PSA Fatty liver Gastric ulcer GERD (gastroesophageal reflux disease) Hypertension Hyponatremia Iron deficiency anemia MGUS (monoclonal gammopathy of unknown significance) Dr. Angulo-based off of monoclonal kappa chains. Nephrology did not think he would be a good canidate for treatment or workup for multiple myeloma. Osteoarthritis RLS (restless legs syndrome) Rotator cuff tear arthropathy Seen previously by Dr. Palomino Senile dementia ([facility]) ALLERGIES Aspirin and Penicillins MEDICATIONS Current Outpatient Medications Medication Sig cyclobenzaprine (FLEXERIL) 5 mg tablet Take 1 tablet by mouth two times a day as needed for muscle spasm. acetaminophen 325 mg cap Take 2 capsules by mouth two times a day as needed for pain. melatonin 10 mg tab Take 1 tablet by mouth daily at bedtime. sertraline (ZOLOFT) 50 mg tablet Take 1 tablet by mouth once daily. donepezil (ARICEPT) 5 mg tablet Take 1 tablet by mouth daily at bedtime. pantoprazole sodium (PANTOPRAZOLE ORAL) Take 40 mg by mouth twice daily. Multivitamin capsule Take 1 capsule by mouth once daily. ondansetron orally disintegrating (ZOFRAN ODT) 4 mg disintegrating tablet Take 1 tablet by mouth every 8 hours as needed for nausea/vomiting. amLODIPine (NORVASC) 2.5 mg tablet Take 1 tablet by mouth once daily. finasteride (PROSCAR) 5 mg tablet Take 1 tablet by mouth once daily. No current facility-administered medications for this visit. Medications and allergies reviewed by this provider. SOCIAL HISTORY Social History Tobacco Use Smoking status: Former Packs/day: .2 Types: Cigarettes Quit date: 06/07/1994 Years since quittin.4 Smokeless tobacco: Never Tobacco comments: quit 10 years ago Substance Use Topics Alcohol use: No Drug use: No REVIEW OF SYSTEMS All other reviewed and negative other than HPI. OBJECTIVE: BP 138/70 Pulse (!) 59 Resp 16 Wt 81.4 kg (179 lb 6.4 oz) SpO2 96% BMI 29.85 kg/m . Vital signs reviewed by this provider. APPEARANCE Well appearing, alert, in no acute distress, well-hydrated, well nourished. EYES conjunctiva and sclera normal. HEART RRR with normal S1 and S2, no murmurs, no gallops, no JVD appreciated LUNG clear to auscultation. No wheezes, rhonchi or rales EXTREMITIES Extremities normal, No deformities, No skin discoloration, and No edema SKIN Skin color, texture, turgor normal, no suspicious rashes or lesions to exposed skin RSV Vaccine(1 - 1-dose 60+ series) Never done Shingrix Vaccine(2 of 3) due on 08/02/2009 Advance Directive Discussion Never done Covid-19 Vaccine(2022-24 season) due on 07/24/2023 Diabetes Screening due on 04/01/2026 DTaP,Tdap,Td Vaccine(3 - Td or Tdap) due on 09/30/2032 Influenza Vaccine Completed Pneumococcal Vaccine: 65+ Completed ASSESSMENT/PLAN: 1. Essential hypertension - ICD9: 401.9, ICD10: I10 (primary diagnosis) - Controlled - Continue current medications - Recommend home blood pressure monitoring, to bring results to next visit - Encouraged sodium restriction, DASH or Mediterranean diet - Recommend regular aerobic exercise - Follow up in 6 months for hypertension visit - COMPREHENSIVE METABOLIC PANEL 2. 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 Depression, unspecified depression type - ICD9: 311, ICD10: F32.A - controlled on current regime - follow-up as needed 4. Benign prostatic hyperplasia with nocturia - ICD9: 600.01, 788.43, ICD10: N40.1, R35.1 - stable on current regime - follow-up in 6 months, sooner if needed 5. Gastroesophageal reflux disease, unspecified whether esophagitis present - ICD9: 530.81, ICD10: K21.9 - stable on current regime - follow-up as needed Fabby Podlogar, [employer]TER.PHARMACY ANALYST Prescription instructions reviewed with patient as applicable. Patient advised if symptoms do not improve or if symptoms worsen sooner, to contact their primary care physician. Potential red flag symptoms discussed with the patient. Reviewed appropriate action plan to take if red flag symptoms occur. Patient agreeable to treatment plan. Medical Decision Making: Problems: Moderate: 2+ stable chronic illnesses Data: Unique test(s) ordered: 1 Risk: Moderate: Moderate risk from testing/treatment Medical Decision Making Level: 4 - Moderate documented in this encounter [facility] 10-25-2023 Note HNO ID: [id number] Author: FABBY MOORE APRN.EZ Service: ? Author Type: Nurse Practitioner Type: Progress Notes Filed: 10/25/2023 15:59 Note Text: 10/25/2023 Patient presents with: F/U 3 Month MMSE: Needs letter completed SUBJECTIVE: This is a 88 year old, accompanied by daughter, that is here today for Above Complaints. Since last office visit has been in good health without ER visits or hospitalizations. No recent falls Needing cognitive screening and paperwork for insurance completed. Patient with diagnosis of Alzheimer documented on his 01/15/2023 discharge paperwork from [facility]. Started on Aricept during hospitalization although he was originally placed on Aricept on 09/19/2015 for mild cognitive impairment, however does not appear he took it long based on documentation I see in EPIC. He adits he can have difficulty recalling names otherwise he feels his clemencia is good. At some point he was told not to drive anymore so he doesn't. MMSE today 29/30 Depression: taking Zoloft as prescribed without side effects. Denies feeling depressed, SI, HI or insomnia. Competed some grief counseling after passed last year, Currently not in counseling. PHQ9: 2 CKD: Avoids NSAID products and eat low salt diet HTN: Patient is compliant with meds Yes Monitors bp at home: occasionally . Denies side effects: Yes. Chest pain: No. Dyspnea: No. Edema: No. Palpitations: No. Syncope: No. Headache: No. Dizziness: occasionally . BPH: Taking Proscar as prescribed without side effects. Admits to nocturia x 2. Denies weal stream, straining to urinate, dysuria, or hematuria GERD: taking pantoprazole as prescribed without side effects. Controls symptos PAST MEDICAL HISTORY Diagnosis Date Abdominal pain, epigastric BPH (benign prostatic hyperplasia) CKD (chronic kidney disease), stage III (HCC) Dr. Ashai DDD (degenerative disc disease), lumbar Depression Elevated PSA Fatty liver Gastric ulcer GERD (gastroesophageal reflux disease) Hypertension Hyponatremia Iron deficiency anemia MGUS (monoclonal gammopathy of unknown significance) Dr. Angulo-based off of monoclonal kappa chains. Nephrology did not think he would be a good canidate for treatment or workup for multiple myeloma. Osteoarthritis RLS (restless legs syndrome) Rotator cuff tear arthropathy Seen previously by Dr. Palomino Senile dementia (HCC) ALLERGIES Aspirin and Penicillins MEDICATIONS Current Outpatient Medications Medication Sig cyclobenzaprine (FLEXERIL) 5 mg tablet Take 1 tablet by mouth two times a day as needed for muscle spasm. acetaminophen 325 mg cap Take 2 capsules by mouth two times a day as needed for pain. melatonin 10 mg tab Take 1 tablet by mouth daily at bedtime. sertraline (ZOLOFT) 50 mg tablet Take 1 tablet by mouth once daily. donepezil (ARICEPT) 5 mg tablet Take 1 tablet by mouth daily at bedtime. pantoprazole sodium (PANTOPRAZOLE ORAL) Take 40 mg by mouth twice daily. Multivitamin capsule Take 1 capsule by mouth once daily. ondansetron orally disintegrating (ZOFRAN ODT) 4 mg disintegrating tablet Take 1 tablet by mouth every 8 hours as needed for nausea/vomiting. amLODIPine (NORVASC) 2.5 mg tablet Take 1 tablet by mouth once daily. finasteride (PROSCAR) 5 mg tablet Take 1 tablet by mouth once daily. No current facility-administered medications for this visit. Medications and allergies reviewed by this provider. SOCIAL HISTORY Social History Tobacco Use Smoking status: Former Packs/day: .2 Types: Cigarettes Quit date: 06/07/1994 Years since quittin.4 Smokeless tobacco: Never Tobacco comments: quit 10 years ago Substance Use Topics Alcohol use: No Drug use: No REVIEW OF SYSTEMS All other reviewed and negative other than HPI. OBJECTIVE: BP 138/70 Pulse (!) 59 Resp 16 Wt 81.4 kg (179 lb 6.4 oz) SpO2 96% BMI 29.85 kg/m? . Vital signs reviewed by this provider. APPEARANCE Well appearing, alert, in no acute distress, well-hydrated, well nourished. EYES conjunctiva and sclera normal. HEART RRR with normal S1 and S2, no murmurs, no gallops, no JVD appreciated LUNG clear to auscultation. No wheezes, rhonchi or rales EXTREMITIES Extremities normal, No deformities, No skin discoloration, and No edema SKIN Skin color, texture, turgor normal, no suspicious rashes or lesions to exposed skin RSV Vaccine(1 - 1-dose 60+ series) Never done Shingrix Vaccine(2 of 3) due on 08/02/2009 Advance Directive Discussion Never done Covid-19 Vaccine(2022- season) due on 07/24/2023 Diabetes Screening due on 04/01/2026 DTaP,Tdap,Td Vaccine(3 - Td or Tdap) due on 09/30/2032 Influenza Vaccine Completed Pneumococcal Vaccine: 65+ Completed ASSESSMENT/PLAN: 1. Essential hypertension - ICD9: 401.9, ICD10: I10 (primary diagnosis) - Controlled - Continue current medications - Recommend home blood pressure monitoring, to bring result (more content not included)... [facility] 09-27-2023 Note HNO ID: [id number] Author: NATHALY SPIVEY RN Service: ? Author Type: Registered Nurse Type: Progress Notes Filed: 09/27/2023 14:55 Note Text: [facility] Telephonic Outreach Provider Action/JUJU ramirez/ Celeste Denies any new or worsening symptoms Contacted for: Routine Telephonic Outreach Contact made with patient: Yes Patient identified by name and date of . Discussed care with daughter Are you experiencing any new or worsening symptoms you need to talk about today? No Disease Specific Do you check your blood pressure at home? No Do you have new or worsening shortness of breath with activity? No Do you feel like you are dehydrated for any reason, including not being able to eat or drink normally, or having less urine/much darker urine than normal for you? No Do you check your daily weight at home? No Based on commercial sales consultant, the following disposition is advised: No symptoms or symptoms present, not severe. Routed to: No Action Needed YASSINE Education Provided this Outreach: No Nathaly Spivey RN September 27, 2023 2:54 PM [facility] 09-27-2023 History of Present illness Narrative [facility] Telephonic Outreach Provider Gena/JUJU ramirez/ Celeste Denies any new or worsening symptoms Contacted for: Routine Telephonic Outreach Contact made with patient: Yes Patient identified by name and date of . Discussed care with daughter Are you experiencing any new or worsening symptoms you need to talk about today? No Disease Specific Do you check your blood pressure at home? No Do you have new or worsening shortness of breath with activity? No Do you feel like you are dehydrated for any reason, including not being able to eat or drink normally, or having less urine/much darker urine than normal for you? No Do you check your daily weight at home? No Based on commercial sales consultant, the following disposition is advised: No symptoms or symptoms present, not severe. Routed to: No Action Needed YASSINE Education Provided this Outreach: No Nathaly Spivey RN September 27, 2023 2:54 PM documented in this encounter [facility] 09-27-2023 Note Patient Outreach ([facility]) ATIF COLÓN ([id number]) 1935 M Date Time Provider Department 09/27/[facility] [place] your visit today, we recorded the following information about you: Nathaly Spivey RN 09/27/2023 2:55 PM Signed [facility] Telephonic Outreach Provider Gena/JUJU Romero w/ Celeste Denies any new or worsening symptoms Contacted for: Routine Telephonic Outreach Contact made with patient: Yes Patient identified by name and date of . Discussed care with daughter Are you experiencing any new or worsening symptoms you need to talk about today? No Disease Specific Do you check your blood pressure at home? No Do you have new or worsening shortness of breath with activity? No Do you feel like you are dehydrated for any reason, including not being able to eat or drink normally, or having less urine/much darker urine than normal for you? No Do you check your daily weight at home? No Based on commercial sales consultant, the following disposition is advised: No symptoms or symptoms present, not severe. Routed to: No Action Needed YASSINE Education Provided this Outreach: No Nathaly Spivey RN September 27, 2023 2:54 PM Allergies As of Date: 09/27/2023 Noted Allergy Reaction ASPIRIN 09/23/2010 8 - GI Upset PENICILLINS 10/28/2009 2 - Rash Date Reviewed: 07/05/2023 Reviewed by: Jessy Alas LPN - Fully Assessed Reason for Visit: cdm [Other] Cmt: Check in call Prescriptions as of 09/27/2023 - cyclobenzaprine (FLEXERIL) 5 mg tablet Take 1 tablet by mouth two times a day as needed for muscle spasm. - acetaminophen 325 mg cap Take 2 capsules by mouth two times a day as needed for pain. - melatonin 10 mg tab Take 1 tablet by mouth daily at bedtime. - sertraline (ZOLOFT) 50 mg tablet Take 1 tablet by mouth once daily. - donepezil (ARICEPT) 5 mg tablet Take 1 tablet by mouth daily at bedtime. - pantoprazole sodium (PANTOPRAZOLE ORAL) Take 40 mg by mouth twice daily. - Multivitamin capsule Take 1 capsule by mouth once daily. - ondansetron orally disintegrating (ZOFRAN ODT) 4 mg disintegrating tablet Take 1 tablet by mouth every 8 hours as needed for nausea/vomiting. - amLODIPine (NORVASC) 2.5 mg tablet Take 1 tablet by mouth once daily. - finasteride (PROSCAR) 5 mg tablet Take 1 tablet by mouth once daily. Problem List As Of Date 09/27/2023 Noted Resolved Abdominal Pain, Epigastric [R10.13] 10/28/2009 Rotator cuff tear [M75.100] 09/30/2010 06/23/2011 Rotator cuff (capsule) sprain [S43.429A] 03/16/2012 06/21/2012 Rotator cuff tear arthropathy [M75.100, M12.819]06/21/2012 Recurrent right inguinal hernia [K40.91] 12/25/2013 Essential hypertension [I10] 06/11/2014 RLS (restless legs syndrome) [G25.81] 09/20/2014 Mild cognitive impairment [G31.84] 09/19/2015 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/19/2015 Elevated prostate specific antigen (PSA) [R97.2*11/19/2015 06/12/2021 BPH (benign prostatic hyperplasia) [N40.0] GERD (gastroesophageal reflux disease) [K21.9] Osteoarthritis [M19.90] Hypertension [I10] 06/09/2017 Elevated PSA [R97.20] 06/09/2017 CKD (chronic kidney disease), stage III (HCC) [* Iron deficiency anemia [D50.9] Acute pain of right shoulder [M25.511] 06/08/2019 Acute pain of left shoulder [M25.512] 05/14/2022 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 Author Type: Registered Nurse Type: Progress Notes Filed: 08/30/2023 09:39 Note Text: [facility] Telephonic Outreach Provider Action/FYI Spoke to dtr Celeste Denies any new or worsening symptoms Dad still wants to drive Contacted for: Routine Telephonic Outreach Contact made with patient: Yes Patient identified by name and date of . Discussed care with daughter Are you experiencing any new or worsening symptoms you need to talk about today? No Disease Specific Do you check your blood pressure at home? No Do you have new or worsening shortness of breath with activity? No Do you feel like you are dehydrated for any reason, including not being able to eat or drink normally, or having less urine/much darker urine than normal for you? No Do you check your daily weight at home? No Based on commercial sales consultant, the following disposition is advised: No symptoms or symptoms present, not severe. Routed to: No Action Needed YASSINE Education Provided this Outreach: No Nathaly Spivey RN August 30, 2023 9:38 AM [facility] 08-30-2023 History of Present illness Narrative [facility] Telephonic Outreach Provider Gena/JUJU Spoke to dtr Celeste Denies any new or worsening symptoms Dad still wants to drive Contacted for: Routine Telephonic Outreach Contact made with patient: Yes Patient identified by name and date of . Discussed care with daughter Are you experiencing any new or worsening symptoms you need to talk about today? No Disease Specific Do you check your blood pressure at home? No Do you have new or worsening shortness of breath with activity? No Do you feel like you are dehydrated for any reason, including not being able to eat or drink normally, or having less urine/much darker urine than normal for you? No Do you check your daily weight at home? No Based on commercial sales consultant, the following disposition is advised: No symptoms or symptoms present, not severe. Routed to: No Action Needed YASSINE Education Provided this Outreach: No Nathaly Spivey RN August 30, 2023 9:38 AM documented in this encounter [facility] 08-30-2023 Note Patient Outreach ([facility]) ATIF COLÓN ([id number]) 1935 M Date Time Provider Department 08/30/23 NATHALY SPIVEY [facility] your visit today, we recorded the following information about you: Nathaly Spivey RN 08/30/2023 9:39 AM Signed [facility] Telephonic Outreach Provider Action/FYI Spoke to dtr Celeste Denies any new or worsening symptoms Dad still wants to drive Contacted for: Routine Telephonic Outreach Contact made with patient: Yes Patient identified by name and date of . Discussed care with daughter Are you experiencing any new or worsening symptoms you need to talk about today? No Disease Specific Do you check your blood pressure at home? No Do you have new or worsening shortness of breath with activity? No Do you feel like you are dehydrated for any reason, including not being able to eat or drink normally, or having less urine/much darker urine than normal for you? No Do you check your daily weight at home? No Based on commercial sales consultant, the following disposition is advised: No symptoms or symptoms present, not severe. Routed to: No Action Needed YASSINE Education Provided this Outreach: No Nathaly Spivey RN August 30, 2023 9:38 AM Allergies As of Date: 08/30/2023 Noted Allergy Reaction ASPIRIN 09/23/2010 8 - GI Upset PENICILLINS 10/28/2009 2 - Rash Date Reviewed: 07/05/2023 Reviewed by: Jessy Alas LPN - Fully Assessed Reason for Visit: cdm [Other] Cmt: Check in call Prescriptions as of 08/30/2023 - cyclobenzaprine (FLEXERIL) 5 mg tablet Take 1 tablet by mouth two times a day as needed for muscle spasm. - acetaminophen 325 mg cap Take 2 capsules by mouth two times a day as needed for pain. - melatonin 10 mg tab Take 1 tablet by mouth daily at bedtime. - sertraline (ZOLOFT) 50 mg tablet Take 1 tablet by mouth once daily. - donepezil (ARICEPT) 5 mg tablet Take 1 tablet by mouth daily at bedtime. - pantoprazole sodium (PANTOPRAZOLE ORAL) Take 40 mg by mouth twice daily. - Multivitamin capsule Take 1 capsule by mouth once daily. - ondansetron orally disintegrating (ZOFRAN ODT) 4 mg disintegrating tablet Take 1 tablet by mouth every 8 hours as needed for nausea/vomiting. - amLODIPine (NORVASC) 2.5 mg tablet Take 1 tablet by mouth once daily. - finasteride (PROSCAR) 5 mg tablet Take 1 tablet by mouth once daily. Problem List As Of Date 08/30/2023 Noted Resolved Abdominal Pain, Epigastric [R10.13] 10/28/2009 Rotator cuff tear [M75.100] 09/30/2010 06/23/2011 Rotator cuff (capsule) sprain [S43.429A] 03/16/2012 06/21/2012 Rotator cuff tear arthropathy [M75.100, M12.819]06/21/2012 Recurrent right inguinal hernia [K40.91] 12/25/2013 Essential hypertension [I10] 06/11/2014 RLS (restless legs syndrome) [G25.81] 09/20/2014 Mild cognitive impairment [G31.84] 09/19/2015 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/19/2015 Elevated prostate specific antigen (PSA) [R97.2*11/19/2015 06/12/2021 BPH (benign prostatic hyperplasia) [N40.0] GERD (gastroesophageal reflux disease) [K21.9] Osteoarthritis [M19.90] Hypertension [I10] 06/09/2017 Elevated PSA [R97.20] 06/09/2017 CKD (chronic kidney disease), stage III (HCC) [* Iron deficiency anemia [D50.9] Acute pain of right shoulder [M25.511] 06/08/2019 Acute pain of left shoulder [M25.512] 05/14/2022 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 [facility] 08-23-2023 Miscellaneous Notes Reviewed. Pt's daughter is calling to report she would like orders for grief counseling and PT for pt. Daughter reports she would prefer someone that will go to [place] where pt lives. Advised daughter she would need to figure out who she wants for grief counseling and PT and let dr's office know where to fax them. Daughter reports she will need to figure that out and will call back. Future appt: 10/04/23 Savannah Bill LPN documented in this encounter [facility] 08-23-2023 Telephone encounter Note Pt's daughter is calling to report she would like orders for grief counseling and PT for pt. Daughter reports she would prefer someone that will go to [place] where pt lives. Advised daughter she would need to figure out who she wants for grief counseling and PT and let dr's office know where to fax them. Daughter reports she will need to figure that out and will call back. Future appt: 10/04/23 Savannah Bill LPN [facility] 07-30-2023 Note HNO ID: [id number] Author: NATHALY SPIVEY RN Service: ? Author Type: Registered Nurse Type: Progress Notes Filed: 07/30/2023 13:27 Note Text: [facility] Telephonic Outreach Provider Action/FYI Spoke to dtr Celeste Denies any new or worsening symptoms Contacted for: Routine Telephonic Outreach Contact made with patient: Yes Patient identified by name and date of . Discussed care with patient Are you experiencing any new or worsening symptoms you need to talk about today? No Disease Specific Do you check your blood pressure at home? No Do you have new or worsening shortness of breath with activity? No Do you feel like you are dehydrated for any reason, including not being able to eat or drink normally, or having less urine/much darker urine than normal for you? No Do you check your daily weight at home? No Based on commercial sales consultant, the following disposition is advised: No symptoms or symptoms present, not severe. Routed to: No Action Needed YASSINE Education Provided this Outreach: No Nathaly Spivey RN July 30, 2023 1:25 PM [facility] 07-30-2023 History of Present illness Narrative [facility] Telephonic Outreach Provider Gena/JUJU Spoke to dtr Celeste Denies any new or worsening symptoms Contacted for: Routine Telephonic Outreach Contact made with patient: Yes Patient identified by name and date of . Discussed care with patient Are you experiencing any new or worsening symptoms you need to talk about today? No Disease Specific Do you check your blood pressure at home? No Do you have new or worsening shortness of breath with activity? No Do you feel like you are dehydrated for any reason, including not being able to eat or drink normally, or having less urine/much darker urine than normal for you? No Do you check your daily weight at home? No Based on commercial sales consultant, the following disposition is advised: No symptoms or symptoms present, not severe. Routed to: No Action Needed YASSINE Education Provided this Outreach: No Nathaly Spivey RN July 30, 2023 1:25 PM documented in this encounter [facility] 07-30-2023 Note Patient Outreach (AM [facility]) ATIF COLÓN ([id number]) 1935 M Date Time Provider Department 07/30/23 NATHALY SPIVEY [facility] During your visit today, we recorded the following information about you: Nathaly Spivey RN 07/30/2023 1:27 PM Signed [facility] Telephonic Outreach Provider Action/FYI Spoke to dtr Celeste Denies any new or worsening symptoms Contacted for: Routine Telephonic Outreach Contact made with patient: Yes Patient identified by name and date of . Discussed care with patient Are you experiencing any new or worsening symptoms you need to talk about today? No Disease Specific Do you check your blood pressure at home? No Do you have new or worsening shortness of breath with activity? No Do you feel like you are dehydrated for any reason, including not being able to eat or drink normally, or having less urine/much darker urine than normal for you? No Do you check your daily weight at home? No Based on commercial sales consultant, the following disposition is advised: No symptoms or symptoms present, not severe. Routed to: No Action Needed YASSINE Education Provided this Outreach: No Nathaly Spivey RN July 30, 2023 1:25 PM Allergies As of Date: 07/30/2023 Noted Allergy Reaction ASPIRIN 09/23/2010 8 - GI Upset PENICILLINS 10/28/2009 2 - Rash Date Reviewed: 07/05/2023 Reviewed by: Jessy Alas LPN - Fully Assessed Reason for Visit: cdm [Other] Cmt: Check in call Prescriptions as of 07/30/2023 - cyclobenzaprine (FLEXERIL) 5 mg tablet Take 1 tablet by mouth two times a day as needed for muscle spasm. - acetaminophen 325 mg cap Take 2 capsules by mouth two times a day as needed for pain. - melatonin 10 mg tab Take 1 tablet by mouth daily at bedtime. - sertraline (ZOLOFT) 50 mg tablet Take 1 tablet by mouth once daily. - donepezil (ARICEPT) 5 mg tablet Take 1 tablet by mouth daily at bedtime. - pantoprazole sodium (PANTOPRAZOLE ORAL) Take 40 mg by mouth twice daily. - Multivitamin capsule Take 1 capsule by mouth once daily. - ondansetron orally disintegrating (ZOFRAN ODT) 4 mg disintegrating tablet Take 1 tablet by mouth every 8 hours as needed for nausea/vomiting. - amLODIPine (NORVASC) 2.5 mg tablet Take 1 tablet by mouth once daily. - finasteride (PROSCAR) 5 mg tablet Take 1 tablet by mouth once daily. 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/19/2015 Elevated prostate specific antigen (PSA) [R97.2*11/19/2015 06/12/2021 BPH (benign prostatic hyperplasia) [N40.0] GERD (gastroesophageal reflux disease) [K21.9] Osteoarthritis [M19.90] Hypertension [I10] 06/09/2017 Elevated PSA [R97.20] 06/09/2017 CKD (chronic kidney disease), stage III (HCC) [* Iron deficiency anemia [D50.9] Acute pain of right shoulder [M25.511] 06/08/2019 Acute pain of left shoulder [M25.512] 05/14/2022 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 To date records not received phone call to Dr Angulo's office and spoke with executive receptionist who will be forwarding records from 07/14/23 OV. Request forwarded to Dr Angulo's office for records. Contacted by patient's cook ice cream Dr. Anuglo with the message below. It sounds like this was discussed with patient at their last OV. I do not see any records from Dr. Angulo yet. Can we please reach out to their office to fax records again? ----- Message from Kami Angulo MD sent at 07/14/2023 1:35 PM EST ----- Dr Johnson I saw Mr Colón in office today. I will fax a note too but its kind of unreliable so messaging you as well. Cr 1.3. UA shows protein. 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 Even if we go through hematology consult, bone marrow/kidney biopsy I am not sure if he will be a candidate for any treatment due to advanced age/resident of assisted living facility etc. My suggestion was to just monitor renal function with blood work for now. Would do BMP every 3 months or so. If any significant change in renal function we will revisit the topic of Myeloma evaluation. Please call if any questions. [phone]. Moris Kev documented in this encounter [facility] 07-05-2023 Note HNO ID: [id number] Author: JORDAN JOHNSON MD Service: ? Author Type: Physician Type: Progress Notes Filed: 07/11/2023 13:17 Note Text: Chief Complaint Patient presents with: Follow Up: 3 month HPI Atif Colón is a 87 year old male who presents here today for Above Complaints. Accompanied today by daughter. Patient states that he has not had any further falls in the last month. Seeing PT for lower back pain 2 days per week and has been taking flexeril 5 mg at night which does help with pain. He was given exercise to do on his own which he states he is doing 2-3 times per day. States that he is not having any pain right now. Assisted living did put double mattress on the floor for him to prevent falls. Patient has been taking Zoloft 50 mg daily as prescribed for depression and grief symptoms since the passing of his . Daughter states that he is seeing a grief counselor through hospice when they stop by. Last visit with them was 1 week ago. Patient states that he is doing well on current regimen and does not want to change dosage. Denies feeling down/depressed, decreased energy/interest/concentration, SI/HI. BP well controlled on current regimen. F/u appointment with nephrology on 07/14. Renal function stable on outside labs on 05/21. Family trying to keep him out of the high sodium foods. Taking Aricept for dementia without change in memory loss since last OV. Past medical history, appointments, medications, allergies reviewed. Previous Medical History PAST MEDICAL HISTORY Diagnosis Date Abdominal pain, epigastric BPH (benign prostatic hyperplasia) CKD (chronic kidney disease), stage III (HCC) Dr. Childress DDD (degenerative disc disease), lumbar Depression Elevated PSA Fatty liver Gastric ulcer GERD (gastroesophageal reflux disease) Hypertension Hyponatremia Iron deficiency anemia Osteoarthritis RLS (restless legs syndrome) Rotator cuff tear arthropathy Seen previously by Dr. Palomino Senile dementia (HCC) Previous Surgical History PAST SURGICAL HISTORY Procedure Laterality Date CIRCUMCISION EGD TRANSORAL BIOPSY SINGLE/MULTIPLE 10/29/09 minimal irritation LAPAROSCOPY SURG CHOLECYSTECTOMY 10/31/09 Cholecystectomy, lap REPAIR FIRST ABDOMINAL WALL HERNIA 2006 Hernia repair, incisional SHOULDER ARTHROSCOPY/SURG 11/13/2010 Rotator cuff repair and Sub AC decompression right shouldrer Family History FAMILY HISTORY Problem Relation Age of Onset None Mother Alcohol/Drug Father Heart Brother Patient Allergies ALLERGIES Allergen Reactions Aspirin GI Upset Penicillins Rash Current Medications Current Outpatient Medications on File Prior to Visit Medication Sig cyclobenzaprine (FLEXERIL) 5 mg tablet Take 1 tablet by mouth two times a day as needed for muscle spasm. acetaminophen 325 mg cap Take 2 capsules by mouth two times a day as needed for pain. melatonin 10 mg tab Take 1 tablet by mouth daily at bedtime. sertraline (ZOLOFT) 50 mg tablet Take 1 tablet by mouth once daily. pantoprazole sodium (PANTOPRAZOLE ORAL) Take 40 mg by mouth twice daily. Multivitamin capsule Take 1 capsule by mouth once daily. ondansetron orally disintegrating (ZOFRAN ODT) 4 mg disintegrating tablet Take 1 tablet by mouth every 8 hours as needed for nausea/vomiting. finasteride (PROSCAR) 5 mg tablet Take 1 tablet by mouth once daily. donepezil (ARICEPT) 5 mg tablet Take 1 tablet by mouth daily at bedtime. amLODIPine (NORVASC) 2.5 mg tablet Take 1 tablet by mouth once daily. Current Facility-Administered Medications on File Prior to Visit Medication perflutren lipid microspheres 1.3 mL in NaCl (PF) 0.9% 10 mL injection (DEFINITY) sodium chloride 0.9 % (flush) 10 mL (BD POSIFLUSH) Social History Social History Tobacco Use Smoking status: Former Packs/day: .2 Types: Cigarettes Quit date: 06/07/1994 Years since quittin.0 Smokeless tobacco: Never Tobacco comments: quit 10 years ago Substance Use Topics Alcohol use: No Drug use: No Review of Symptoms REVIEW OF SYSTEMS GENERAL: No weight loss, malaise or fevers RESPIRATORY: Negative for cough, hemoptysis, wheezing, COPD, dyspnea or shortness of breath CARDIOVASCULAR: Negative for chest pain, leg swelling, hypertension, CHF or palpitations GI: No nausea, vomiting, or diarrhea SKIN: Negative for lesions, rash, and itching EXAM: BP 126/64 Pulse 65 Resp 18 Wt 79.8 kg (176 lb) SpO2 99% BMI 29.29 kg/m? General Appearance: Well appearing, alert, in no acute distress, well-hydrated, well nourished.. Skin: Skin color, texture, turgor normal, no suspicious rashes or lesions. Lungs: Lungs clear to auscultation. No wheezing, rhonchi, rales.. Heart: RRR without murmur, gallop, or rubs. No ectopy. Abdomen: Normal abdominal exam, Abdomen soft, non-tender. Bowel sounds normal. No masses, organomegaly. Extremities: No deformities, edema, skin (more content not included)... [facility] 07-05-2023 History of Present illness Narrative Chief Complaint Patient presents with: Follow Up: 3 month HPI Atif Colón is a 87 year old male who presents here today for Above Complaints. Accompanied today by daughter. Patient states that he has not had any further falls in the last month. Seeing PT for lower back pain 2 days per week and has been taking flexeril 5 mg at night which does help with pain. He was given exercise to do on his own which he states he is doing 2-3 times per day. States that he is not having any pain right now. Assisted living did put double mattress on the floor for him to prevent falls. Patient has been taking Zoloft 50 mg daily as prescribed for depression and grief symptoms since the passing of his . Daughter states that he is seeing a grief counselor through hospice when they stop by. Last visit with them was 1 week ago. Patient states that he is doing well on current regimen and does not want to change dosage. Denies feeling down/depressed, decreased energy/interest/concentration, SI/HI. BP well controlled on current regimen. F/u appointment with nephrology on 07/14. Renal function stable on outside labs on 05/21. Family trying to keep him out of the high sodium foods. Taking Aricept for dementia without change in memory loss since last OV. Past medical history, appointments, medications, allergies reviewed. Previous Medical History PAST MEDICAL HISTORY Diagnosis Date Abdominal pain, epigastric BPH (benign prostatic hyperplasia) CKD (chronic kidney disease), stage III (HCC) Dr. Childress DDD (degenerative disc disease), lumbar Depression Elevated PSA Fatty liver Gastric ulcer GERD (gastroesophageal reflux disease) Hypertension Hyponatremia Iron deficiency anemia Osteoarthritis RLS (restless legs syndrome) Rotator cuff tear arthropathy Seen previously by Dr. Palomino Senile dementia (HCC) Previous Surgical History PAST SURGICAL HISTORY Procedure Laterality Date CIRCUMCISION EGD TRANSORAL BIOPSY SINGLE/MULTIPLE 10/29/09 minimal irritation LAPAROSCOPY SURG CHOLECYSTECTOMY 10/31/09 Cholecystectomy, lap REPAIR FIRST ABDOMINAL WALL HERNIA 2006 Hernia repair, incisional SHOULDER ARTHROSCOPY/SURG 11/13/2010 Rotator cuff repair and Sub AC decompression right shouldrer Family History FAMILY HISTORY Problem Relation Age of Onset None Mother Alcohol/Drug Father Heart Brother Patient Allergies ALLERGIES Allergen Reactions Aspirin GI Upset Penicillins Rash Current Medications Current Outpatient Medications on File Prior to Visit Medication Sig cyclobenzaprine (FLEXERIL) 5 mg tablet Take 1 tablet by mouth two times a day as needed for muscle spasm. acetaminophen 325 mg cap Take 2 capsules by mouth two times a day as needed for pain. melatonin 10 mg tab Take 1 tablet by mouth daily at bedtime. sertraline (ZOLOFT) 50 mg tablet Take 1 tablet by mouth once daily. pantoprazole sodium (PANTOPRAZOLE ORAL) Take 40 mg by mouth twice daily. Multivitamin capsule Take 1 capsule by mouth once daily. ondansetron orally disintegrating (ZOFRAN ODT) 4 mg disintegrating tablet Take 1 tablet by mouth every 8 hours as needed for nausea/vomiting. finasteride (PROSCAR) 5 mg tablet Take 1 tablet by mouth once daily. donepezil (ARICEPT) 5 mg tablet Take 1 tablet by mouth daily at bedtime. amLODIPine (NORVASC) 2.5 mg tablet Take 1 tablet by mouth once daily. Current Facility-Administered Medications on File Prior to Visit Medication perflutren lipid microspheres 1.3 mL in NaCl (PF) 0.9% 10 mL injection (DEFINITY) sodium chloride 0.9 % (flush) 10 mL (BD POSIFLUSH) Social History Social History Tobacco Use Smoking status: Former Packs/day: .2 Types: Cigarettes Quit date: 06/07/1994 Years since quittin.0 Smokeless tobacco: Never Tobacco comments: quit 10 years ago Substance Use Topics Alcohol use: No Drug use: No Review of Symptoms REVIEW OF SYSTEMS GENERAL: No weight loss, malaise or fevers RESPIRATORY: Negative for cough, hemoptysis, wheezing, COPD, dyspnea or shortness of breath CARDIOVASCULAR: Negative for chest pain, leg swelling, hypertension, CHF or palpitations GI: No nausea, vomiting, or diarrhea SKIN: Negative for lesions, rash, and itching EXAM: BP 126/64 Pulse 65 Resp 18 Wt 79.8 kg (176 lb) SpO2 99% BMI 29.29 kg/m General Appearance: Well appearing, alert, in no acute distress, well-hydrated, well nourished.. Skin: Skin color, texture, turgor normal, no suspicious rashes or lesions. Lungs: Lungs clear to auscultation. No wheezing, rhonchi, rales.. Heart: RRR without murmur, gallop, or rubs. No ectopy. Abdomen: Normal abdominal exam, Abdomen soft, non-tender. Bowel sounds normal. No masses, organomegaly. Extremities: No deformities, edema, skin discoloration, clubbing or cyanosis. Good capillary refill. . Health Maintenance List RSV Vaccine(1 - 1-dose 60+ series) Never done Shingrix Vaccine(2 of 3) due on 08/02/2009 Advance Directive Discussion Never done Diabetes Screening due on 04/01/2026 DTaP,Tdap,Td Vaccine(3 - Td or Tdap) due on 09/30/2032 Influenza Vaccine Completed Covid-19 Vaccine Completed Pneumococcal Vaccine: 65+ Completed Component Latest Ref Rng & Units 01/29/2023 04/01/2023 WBC 3.70 - 11.00 k/uL 8.23 RBC 4.20 - 6.00 m/uL 3.96 (L) Hemoglobin 13.0 - 17.0 g/dL 12.9 (L) Hematocrit 39.0 - 51.0 % 38.3 (L) MCV 80.0 - 100.0 fL 96.7 MCH 26.0 - 34.0 pg 32.6 MCHC 30.5 - 36.0 g/dL 33.7 RDW-CV 11.5 - 15.0 % 13.7 Platelet Count 150 - 400 k/uL 320 MPV 9.0 - 12.7 fL 9.9 Neut% % 63.5 Abs Neut (ANC) 1.45 - 7.50 k/uL 5.23 Lymph% % 25.9 Abs Lymph 1.00 - 4.00 k/uL 2.13 Lagrange% % 9.2 Abs Lagrange <0.87 k/uL 0.76 Eosin% % 0.5 Abs Eosin <0.46 k/uL 0.04 Baso% % 0.5 Abs Baso <0.11 k/uL 0.04 Immature Gran % % 0.4 IMMATURE GRANS (ABS) <0.10 k/uL 0.03 NRBC /100 WBC 0.0 Absolute nRBC <0.01 k/uL <0.01 DTYPE Auto Protein, Total 6.3 - 8.0 g/dL 8.2 (H) 7.0 Albumin 3.9 - 4.9 g/dL 4.3 3.8 (L) Calcium 8.5 - 10.2 mg/dL 9.8 9.1 Bilirubin, Total 0.2 - 1.3 mg/dL 0.9 0.2 Alkaline Phosphatase 38 - 113 U/L 151 (H) 154 (H) AST 14 - 40 U/L 25 51 (H) ALT 10 - 54 U/L 25 65 (H) Glucose 74 - 99 mg/dL 112 (H) 96 BUN 9 - 24 mg/dL 32 (H) 26 (H) Creatinine 0.73 - 1.22 mg/dL 1.89 (H) 1.23 (H) Sodium 136 - 144 mmol/L 131 (L) 133 (L) Potassium 3.7 - 5.1 mmol/L 3.6 (L) 4.9 Chloride 97 - 105 mmol/L 96 (L) 99 CO2 22 - 30 mmol/L 20 (L) 24 Anion Gap 9 - 18 mmol/L 15 10 eGFR >=60 mL/min/1.73m 34 (L) 58 (L) ASSESSMENT/PLAN: 1. Acute left-sided low back pain without sciatica - ICD9: 724.2, ICD10: M54.50 (primary diagnosis) Improved with PT and flexeril as prescribed. 2. At high risk for falls - ICD9: V15.88, ICD10: Z91.81 Discussed continued PT along with use of walker for ambulation. 3. 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) - ICD9: 296.21, ICD10: F32.0 Controlled on current regimen. 4. Grief reaction - ICD9: 309.0, ICD10: F43.21 Controlled on current regimen. 5. Senile dementia (HCC) - ICD9: 290.0, ICD10: F03.90 Improved with Aricept. 6. Stage 3a chronic kidney disease (HCC) - ICD9: 585.3, ICD10: N18.31 - eGFR: 58 Stable - Counseled on avoiding NSAIDs, adequate hydration - Counseled on low sodium diet Jordan Johnson MD documented in this encounter [facility] 07-05-2023 Note Patient Outreach (AM [facility]) ATIF COLÓN ([id number]) 1935 M Date Time Provider Department 07/05/23October, GARY MCGHEE During your visit today, we recorded the following information about you: Allergies As of Date: 07/05/2023 Noted Allergy Reaction ASPIRIN 09/23/2010 8 - GI Upset PENICILLINS 10/28/2009 2 - Rash Date Reviewed: 05/25/2023 Reviewed by: Jessy Alas LPN - Fully Assessed Prescriptions as of 07/05/2023 - cyclobenzaprine (FLEXERIL) 5 mg tablet Take 1 tablet by mouth two times a day as needed for muscle spasm. - acetaminophen 325 mg cap Take 2 capsules by mouth two times a day as needed for pain. - melatonin 10 mg tab Take 1 tablet by mouth daily at bedtime. - sertraline (ZOLOFT) 50 mg tablet Take 1 tablet by mouth once daily. - donepezil (ARICEPT) 5 mg tablet Take 1 tablet by mouth daily at bedtime. - pantoprazole sodium (PANTOPRAZOLE ORAL) Take 40 mg by mouth twice daily. - Multivitamin capsule Take 1 capsule by mouth once daily. - ondansetron orally disintegrating (ZOFRAN ODT) 4 mg disintegrating tablet Take 1 tablet by mouth every 8 hours as needed for nausea/vomiting. - amLODIPine (NORVASC) 2.5 mg tablet Take 1 tablet by mouth once daily. - finasteride (PROSCAR) 5 mg tablet Take 1 tablet by mouth once daily. Facility-Administered Medications as of 07/05/2023 - perflutren lipid microspheres 1.3 mL in NaCl (PF) 0.9% 10 mL injection (DEFINITY) - sodium chloride 0.9 % (flush) 10 mL (BD POSIFLUSH) Problem List As Of Date 07/05/2023 Noted Resolved Abdominal Pain, Epigastric [R10.13] 10/28/2009 Rotator cuff tear [M75.100] 09/30/2010 06/23/2011 Rotator cuff (capsule) sprain [S43.429A] 03/16/2012 06/21/2012 Rotator cuff tear arthropathy [M75.100, M12.819]06/21/2012 Recurrent right inguinal hernia [K40.91] 12/25/2013 Essential hypertension [I10] 06/11/2014 RLS (restless legs syndrome) [G25.81] 09/20/2014 Mild cognitive impairment [G31.84] 09/19/2015 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/19/2015 Elevated prostate specific antigen (PSA) [R97.2*11/19/2015 06/12/2021 BPH (benign prostatic hyperplasia) [N40.0] GERD (gastroesophageal reflux disease) [K21.9] Osteoarthritis [M19.90] Hypertension [I10] 06/09/2017 Elevated PSA [R97.20] 06/09/2017 CKD (chronic kidney disease), stage III (HCC) [* Iron deficiency anemia [D50.9] Acute pain of right shoulder [M25.511] 06/08/2019 Acute pain of left shoulder [M25.512] 05/14/2022 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 Author Type: Registered Nurse Type: Progress Notes Filed: 07/01/2023 13:05 Note Text: CDM Telephonic Outreach Provider Gena/JUJU Spoke w/ dtr Celeste Dad wants to return to driving. Planning to discuss driving w/ DR Whaley Contacted for: Routine Telephonic Outreach Contact made with patient: Yes Patient identified by name and date of . Discussed care with daughter Are you experiencing any new or worsening symptoms you need to talk about today? No Disease Specific Do you check your blood pressure at home? No Do you have new or worsening shortness of breath with activity? No Do you feel like you are dehydrated for any reason, including not being able to eat or drink normally, or having less urine/much darker urine than normal for you? No Do you check your daily weight at home? No Based on commercial sales consultant, the following disposition is advised: No symptoms or symptoms present, not severe. Routed to: No Action Needed YASSINE Education Provided this Outreach: No Nathaly Spivey RN July 01, 2023 1:03 PM [facility] 07-01-2023 Note Patient Outreach ([facility]) ATIF COLÓN ([id number]) 1935 M Date Time Provider Department 07/01/23 NATHAL[place] SPIVEY [facility] [place] your visit today, we recorded the following information about you: Nathaly Spivey RN 07/01/2023 1:05 PM Signed CDM Telephonic Outreach Provider Gena/FYI Spoke w/ dtr Celeste Wagner wants to return to driving. Planning to discuss driving w/ DR Whaley Contacted for: Routine Telephonic Outreach Contact made with patient: Yes Patient identified by name and date of . Discussed care with daughter Are you experiencing any new or worsening symptoms you need to talk about today? No Disease Specific Do you check your blood pressure at home? No Do you have new or worsening shortness of breath with activity? No Do you feel like you are dehydrated for any reason, including not being able to eat or drink normally, or having less urine/much darker urine than normal for you? No Do you check your daily weight at home? No Based on commercial sales consultant, the following disposition is advised: No symptoms or symptoms present, not severe. Routed to: No Action Needed YASSINE Education Provided this Outreach: No Nathaly Spivey RN July 01, 2023 1:03 PM Allergies As of Date: 07/01/2023 Noted Allergy Reaction ASPIRIN 09/23/2010 8 - GI Upset PENICILLINS 10/28/2009 2 - Rash Date Reviewed: 05/25/2023 Reviewed by: Jessy Alas LPN - Fully Assessed Reason for Visit: cdm [Other] Cmt: Check in call Prescriptions as of 07/01/2023 - cyclobenzaprine (FLEXERIL) 5 mg tablet Take 1 tablet by mouth two times a day as needed for muscle spasm. - acetaminophen 325 mg cap Take 2 capsules by mouth two times a day as needed for pain. - melatonin 10 mg tab Take 1 tablet by mouth daily at bedtime. - sertraline (ZOLOFT) 50 mg tablet Take 1 tablet by mouth once daily. - donepezil (ARICEPT) 5 mg tablet Take 1 tablet by mouth daily at bedtime. - pantoprazole sodium (PANTOPRAZOLE ORAL) Take 40 mg by mouth twice daily. - Multivitamin capsule Take 1 capsule by mouth once daily. - ondansetron orally disintegrating (ZOFRAN ODT) 4 mg disintegrating tablet Take 1 tablet by mouth every 8 hours as needed for nausea/vomiting. - amLODIPine (NORVASC) 2.5 mg tablet Take 1 tablet by mouth once daily. - finasteride (PROSCAR) 5 mg tablet Take 1 tablet by mouth once daily. Facility-Administered Medications as of 07/01/2023 - perflutren lipid microspheres 1.3 mL in NaCl (PF) 0.9% 10 mL injection (DEFINITY) - sodium chloride 0.9 % (flush) 10 mL (BD POSIFLUSH) Problem List As Of Date 07/01/2023 Noted Resolved Abdominal Pain, Epigastric [R10.13] 10/28/2009 Rotator cuff tear [M75.100] 09/30/2010 06/23/2011 Rotator cuff (capsule) sprain [S43.429A] 03/16/2012 06/21/2012 Rotator cuff tear arthropathy [M75.100, M12.819]06/21/2012 Recurrent right inguinal hernia [K40.91] 12/25/2013 Essential hypertension [I10] 06/11/2014 RLS (restless legs syndrome) [G25.81] 09/20/2014 Mild cognitive impairment [G31.84] 09/19/2015 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/19/2015 Elevated prostate specific antigen (PSA) [R97.2*11/19/2015 06/12/2021 BPH (benign prostatic hyperplasia) [N40.0] GERD (gastroesophageal reflux disease) [K21.9] Osteoarthritis [M19.90] Hypertension [I10] 06/09/2017 Elevated PSA [R97.20] 06/09/2017 CKD (chronic kidney disease), stage III (HCC) [* Iron deficiency anemia [D50.9] Acute pain of right shoulder [M25.511] 06/08/2019 Acute pain of left shoulder [M25.512] 05/14/2022 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 Author Type: Registered Nurse Type: Progress Notes Filed: 06/03/2023 1:33 PM Note Text: CDM Telephonic Outreach Provider Action/FYI Denies any new or worsening symptoms per dtr Celeste Contacted for: Routine Telephonic Outreach Contact made with patient: Yes Patient identified by name and date of . Discussed care with daughter Are you experiencing any new or worsening symptoms you need to talk about today? No Disease Specific Do you check your blood pressure at home? No Do you have new or worsening shortness of breath with activity? No Do you feel like you are dehydrated for any reason, including not being able to eat or drink normally, or having less urine/much darker urine than normal for you? No Do you check your daily weight at home? No Based on commercial sales consultant, the following disposition is advised: No symptoms or symptoms present, not severe. Routed to: No Action Needed YASSINE Education Provided this Outreach: No Nathaly Spivey RN June 03, 2023 1:31 PM and Goals/Falls/ADL Update Contact made with patient: Yes Patient identified by name and date of . Discussed care with: daughter Goal Setting I would like to take some time today to discuss your personal health goals. Yes, patient has goals. Capture the goal the patient wants to accomplish: . Does the goal align with programs offered at the [facility]? Most people know what to do to become healthier, yet struggle to put it into action on their own, It can be hard to maintain a healthy lifestyle, especially when life is so stressful. Can we connect you with a [facility] [employer] Lamp Cleaner to find a program that could help you meet your goals? No Falls completed:Yes ADL's updated: Yes Are you experiencing any new or worsening symptoms you need to talk about today? [facility] 06-03-2023 Note Patient Outreach ([facility]) ATIF COLÓN ([id number]) 1935 M Date Time Provider Department [facility] [place] [facility] your visit today, we recorded the following information about you: Nathaly Spivey RN 06/03/2023 1:33 PM Signed CDM Telephonic Outreach Provider Action/FYI Denies any new or worsening symptoms per dtr Celeste Contacted for: Routine Telephonic Outreach Contact made with patient: Yes Patient identified by name and date of . Discussed care with daughter Are you experiencing any new or worsening symptoms you need to talk about today? No Disease Specific Do you check your blood pressure at home? No Do you have new or worsening shortness of breath with activity? No Do you feel like you are dehydrated for any reason, including not being able to eat or drink normally, or having less urine/much darker urine than normal for you? No Do you check your daily weight at home? No Based on commercial sales consultant, the following disposition is advised: No symptoms or symptoms present, not severe. Routed to: No Action Needed YASSINE Education Provided this Outreach: No Nathaly Spivey RN June 03, 2023 1:31 PM and Goals/Falls/ADL Update Contact made with patient: Yes Patient identified by name and date of . Discussed care with: daughter Goal Setting I would like to take some time today to discuss your personal health goals. Yes, patient has goals. Capture the goal the patient wants to accomplish: . Does the goal align with programs offered at the [facility]? Most people know what to do to become healthier, yet struggle to put it into action on their own, It can be hard to maintain a healthy lifestyle, especially when life is so stressful. Can we connect you with a [facility] [employer] Lamp Cleaner to find a program that could help you meet your goals? No Falls completed:Yes ADL's updated: Yes Are you experiencing any new or worsening symptoms you need to talk about today? Allergies As of Date: 06/03/2023 Noted Allergy Reaction ASPIRIN 09/23/2010 8 - GI Upset PENICILLINS 10/28/2009 2 - Rash Date Reviewed: 05/25/2023 Reviewed by: Jessy Alas LPN - Fully Assessed Reason for Visit: cdm [Other] Cmt: Check in call Prescriptions as of 06/03/2023 - cyclobenzaprine (FLEXERIL) 5 mg tablet Take 1 tablet by mouth two times a day as needed for muscle spasm for up to 15 days. - acetaminophen 325 mg cap Take 2 capsules by mouth two times a day as needed for pain. - melatonin 10 mg tab Take 1 tablet by mouth daily at bedtime. - sertraline (ZOLOFT) 50 mg tablet Take 1 tablet by mouth once daily. - donepezil (ARICEPT) 5 mg tablet Take 1 tablet by mouth daily at bedtime. - pantoprazole sodium (PANTOPRAZOLE ORAL) Take 40 mg by mouth twice daily. - Multivitamin capsule Take 1 capsule by mouth once daily. - ondansetron orally disintegrating (ZOFRAN ODT) 4 mg disintegrating tablet Take 1 tablet by mouth every 8 hours as needed for nausea/vomiting. - amLODIPine (NORVASC) 2.5 mg tablet Take 1 tablet by mouth once daily. - finasteride (PROSCAR) 5 mg tablet Take 1 tablet by mouth once daily. Facility-Administered Medications as of 06/03/2023 - perflutren lipid microspheres 1.3 mL in NaCl (PF) 0.9% 10 mL injection (DEFINITY) - sodium chloride 0.9 % (flush) 10 mL (BD POSIFLUSH) Problem List As Of Date 06/03/2023 Noted Resolved Abdominal Pain, Epigastric [R10.13] 10/28/2009 Rotator cuff tear [M75.100] 09/30/2010 06/23/2011 Rotator cuff (capsule) sprain [S43.429A] 03/16/2012 06/21/2012 Rotator cuff tear arthropathy [M75.100, M12.819]06/21/2012 Recurrent right inguinal hernia [K40.91] 12/25/2013 Essential hypertension [I10] 06/11/2014 RLS (restless legs syndrome) [G25.81] 09/20/2014 Mild cognitive impairment [G31.84] 09/19/2015 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/19/2015 Elevated prostate specific antigen (PSA) [R97.2*11/19/2015 06/12/2021 BPH (benign prostatic hyperplasia) [N40.0] GERD (gastroesophageal reflux disease) [K21.9] Osteoarthritis [M19.90] Hypertension [I10] 06/09/2017 Elevated PSA [R97.20] 06/09/2017 CKD (chronic kidney disease), stage III (HCC) [* Iron deficiency anemia [D50.9] Acute pain of right shoulder [M25.511] 06/08/2019 Acute pain of left shoulder [M25.512] 05/14/2022 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 Author Type: Physician Type: Progress Notes Filed: 05/29/2023 6:41 AM Note Text: Chief Complaint Patient presents with: ER F/U: Multiple falls/slips. Patient wanting to discuss muscle spasms. Wanting to try massage therapy. JEANNA Colón is a 87 year old male who presents here today for ER Follow Up.. Patient evaluated at [facility] ED on 05/21 for complaint of left lower back and hip pain after fall 2-3 days prior onto the wheel of his walker. Denied striking his head. Obtained CBC CMP, and CT abd/pelvis without contrast which were unremarkable. Diagnosed with lower back spasm and given rx for flexeril for home use. Given morphine and zofran in the ER. Discharged home with recommendation to follow up with our office. Today, he states that he continues to get spasms in his lower back when he swings his legs out of bed. Taking flexeril as prescribed without much improvement in pain. Does make him feel drowsy at 10 mg. Had another fall yesterday getting out of bed. Went down on his right knee with small abrasion which they are treating with neosporin 1-2 times per day. Has normal ROM of right knee without pain or swelling. Past medical history, appointments, medications, allergies reviewed. Previous Medical History PAST MEDICAL HISTORY Diagnosis Date Abdominal pain, epigastric BPH (benign prostatic hyperplasia) CKD (chronic kidney disease), stage III (HCC) Dr. Childress DDD (degenerative disc disease), lumbar Depression Elevated PSA Fatty liver Gastric ulcer GERD (gastroesophageal reflux disease) Hypertension Hyponatremia Iron deficiency anemia Osteoarthritis RLS (restless legs syndrome) Rotator cuff tear arthropathy Seen previously by Dr. Palomino Senile dementia (HCC) Previous Surgical History PAST SURGICAL HISTORY Procedure Laterality Date CIRCUMCISION EGD TRANSORAL BIOPSY SINGLE/MULTIPLE 10/29/09 minimal irritation LAPAROSCOPY SURG CHOLECYSTECTOMY 10/31/09 Cholecystectomy, lap REPAIR FIRST ABDOMINAL WALL HERNIA 2006 Hernia repair, incisional SHOULDER ARTHROSCOPY/SURG 11/13/2010 Rotator cuff repair and Sub AC decompression right shouldrer Family History FAMILY HISTORY Problem Relation Age of Onset None Mother Alcohol/Drug Father Heart Brother Patient Allergies ALLERGIES Allergen Reactions Aspirin GI Upset Penicillins Rash Current Medications Current Outpatient Medications on File Prior to Visit Medication Sig acetaminophen 325 mg cap Take 2 capsules by mouth two times a day as needed for pain. melatonin 10 mg tab Take 1 tablet by mouth daily at bedtime. sertraline (ZOLOFT) 50 mg tablet Take 1 tablet by mouth once daily. donepezil (ARICEPT) 5 mg tablet Take 1 tablet by mouth daily at bedtime. pantoprazole sodium (PANTOPRAZOLE ORAL) Take 40 mg by mouth twice daily. Multivitamin capsule Take 1 capsule by mouth once daily. ondansetron orally disintegrating (ZOFRAN ODT) 4 mg disintegrating tablet Take 1 tablet by mouth every 8 hours as needed for nausea/vomiting. amLODIPine (NORVASC) 2.5 mg tablet Take 1 tablet by mouth once daily. finasteride (PROSCAR) 5 mg tablet Take 1 tablet by mouth once daily. Current Facility-Administered Medications on File Prior to Visit Medication perflutren lipid microspheres 1.3 mL in NaCl (PF) 0.9% 10 mL injection (DEFINITY) sodium chloride 0.9 % (flush) 10 mL (BD POSIFLUSH) Social History Social History Tobacco Use Smoking status: Former Packs/day: .2 Types: Cigarettes Quit date: 06/07/1994 Years since quittin.9 Smokeless tobacco: Never Tobacco comments: quit 10 years ago Substance Use Topics Alcohol use: No Drug use: No Review of Symptoms REVIEW OF SYSTEMS See HPI EXAM: BP 128/70 Pulse 81 Resp 18 SpO2 95% General Appearance: Well appearing, alert, in no acute distress, well-hydrated, well nourished.. Skin: Skin color, texture, turgor normal, no suspicious rashes or lesions. Back:no pain to palpation of vertebrae, reflexes are 2+ and symmetric, motor and sensory appear to be normal, negative SLR test, no evidence of scoliosis. Positive for TTP over left lumbar paraspinal muscles. Lungs: Lungs clear to auscultation. No wheezing, rhonchi, rales.. Heart: RRR without murmur, gallop, or rubs. No ectopy. Extremities: No deformities, edema, skin discoloration, clubbing or cyanosis. Good capillary refill. KNEE:Location: Right Redness: No. Warmth: No. Crepitus: No. Effusion: No. Joint line tenderness: No. Lateral tenderness: No. Medial tenderness: No. Health Maintenance List RSV Vaccine(1 - 1-dose 60+ series) Never done Shingrix Vaccine(2 of 3) due on 08/02/2009 Advance Directive Discussion Never done Diabetes Screening due on 04/01/2026 DTaP,Tdap,Td Vaccine(3 - Td or Tdap) due on 09/30/2032 Influenza Vaccine Completed Covid-19 Vaccine Completed Pneumoco (more content not included)... [facility] 05-19-2023 Miscellaneous Notes Telephone call placed to [facility], spoke with nurse Esmer. Verbal order given for patient from Fabby Moore CNP for lumbar spine xray 3 views. Cameron Vitale LPN Please call [facility] and let them know alright for XR lumbar spine. If his pain persists will need office appointment for evaluation Fabby Moore APRN.PHARMACY ANALYST documented in this encounter [facility] 05-06-2023 Note HNO ID: [id number] Author: Nathaly Spivey RN Service: ? Author Type: Registered Nurse Type: Progress Notes Filed: 05/07/2023 10:20 AM Note Text: [facility] Telephonic Outreach Provider Action/FYI Contacted for: Routine Telephonic Outreach Contact made with patient: No, left message. Nathaly Spivey RN May 06, 2023 12:49 PM [facility] 05-06-2023 History of Present illness Narrative [facility] Telephonic Outreach Provider Action/FYI Contacted for: Routine Telephonic Outreach Contact made with patient: No, left message. Nathaly Spivey RN May 06, 2023 12:49 PM documented in this encounter [facility] 05-06-2023 Note Patient Outreach (AM [facility]) ATIF COLÓN ([id number]) 1935 M Date Time Provider Department 05/06/23 NATHAL[place]IVEY [facility] your visit today, we recorded the following information about you: Nathaly Spivey RN 05/07/2023 10:20 AM Signed CD Telephonic Outreach Provider Gena/JUJU Contacted for: Routine Telephonic Outreach Contact made with patient: No, left message. Nathaly Spivey RN May 06, 2023 12:49 PM Allergies As of Date: 05/06/2023 Noted Allergy Reaction ASPIRIN 09/23/2010 8 - GI Upset PENICILLINS 10/28/2009 2 - Rash Date Reviewed: 04/01/2023 Reviewed by: Jessy Alas LPN - Fully Assessed Reason for Visit: cdm [Other] Cmt: Check in call Prescriptions as of 05/07/2023 - acetaminophen 325 mg cap Take 2 capsules by mouth two times a day as needed for pain. - melatonin 10 mg tab Take 1 tablet by mouth daily at bedtime. - sertraline (ZOLOFT) 50 mg tablet Take 1 tablet by mouth once daily. - donepezil (ARICEPT) 5 mg tablet Take 1 tablet by mouth daily at bedtime. - pantoprazole sodium (PANTOPRAZOLE ORAL) Take 40 mg by mouth twice daily. - Multivitamin capsule Take 1 capsule by mouth once daily. - ondansetron orally disintegrating (ZOFRAN ODT) 4 mg disintegrating tablet Take 1 tablet by mouth every 8 hours as needed for nausea/vomiting. - amLODIPine (NORVASC) 2.5 mg tablet Take 1 tablet by mouth once daily. - finasteride (PROSCAR) 5 mg tablet Take 1 tablet by mouth once daily. Facility-Administered Medications as of 05/07/2023 - perflutren lipid microspheres 1.3 mL in NaCl (PF) 0.9% 10 mL injection (DEFINITY) - sodium chloride 0.9 % (flush) 10 mL (BD POSIFLUSH) Problem List As Of Date 05/06/2023 Noted Resolved Abdominal Pain, Epigastric [R10.13] 10/28/2009 Rotator cuff tear [M75.100] 09/30/2010 06/23/2011 Rotator cuff (capsule) sprain [S43.429A] 03/16/2012 06/21/2012 Rotator cuff tear arthropathy [M75.100, M12.819]06/21/2012 Recurrent right inguinal hernia [K40.91] 12/25/2013 Essential hypertension [I10] 06/11/2014 RLS (restless legs syndrome) [G25.81] 09/20/2014 Mild cognitive impairment [G31.84] 09/19/2015 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/19/2015 Elevated prostate specific antigen (PSA) [R97.2*11/19/2015 06/12/2021 BPH (benign prostatic hyperplasia) [N40.0] GERD (gastroesophageal reflux disease) [K21.9] Osteoarthritis [M19.90] Hypertension [I10] 06/09/2017 Elevated PSA [R97.20] 06/09/2017 CKD (chronic kidney disease), stage III (HCC) [* Iron deficiency anemia [D50.9] Acute pain of right shoulder [M25.511] 06/08/2019 Acute pain of left shoulder [M25.512] 05/14/2022 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 Author Type: Registered Nurse Type: Progress Notes Filed: 04/19/2023 12:40 PM Note Text: [facility] Telephonic Outreach Provider Action/FYI Second attempt Contacted for: Routine Telephonic Outreach Contact made with patient: No, left message. Nathaly Spivey RN April 19, 2023 12:40 PM [facility] 04-19-2023 History of Present illness Narrative [facility] Telephonic Outreach Provider Action/FYI Second attempt Contacted for: Routine Telephonic Outreach Contact made with patient: No, left message. Nathaly Spivey RN April 19, 2023 12:40 PM documented in this encounter [facility] 04-19-2023 Note Patient Outreach (AM [facility]) ATIF COLÓN ([id number]) 1935 M Date Time Provider Department 04/19/23 N[place]ALY [place]IVE[place] [facility] [place] your visit today, we recorded the following information about you: Nathaly Spivey RN 04/19/2023 12:40 PM Signed [facility] Telephonic Outreach Provider Action/FYI Second attempt Contacted for: Routine Telephonic Outreach Contact made with patient: No, left message. Nathaly Spivey RN April 19, 2023 12:40 PM Allergies As of Date: 04/19/2023 Noted Allergy Reaction ASPIRIN 09/23/2010 8 - GI Upset PENICILLINS 10/28/2009 2 - Rash Date Reviewed: 04/01/2023 Reviewed by: Jessy Alas LPN - Fully Assessed Reason for Visit: cdm [Other] Cmt: Check in call Prescriptions as of 04/19/2023 - acetaminophen 325 mg cap Take 2 capsules by mouth two times a day as needed for pain. - melatonin 10 mg tab Take 1 tablet by mouth daily at bedtime. - sertraline (ZOLOFT) 50 mg tablet Take 1 tablet by mouth once daily. - donepezil (ARICEPT) 5 mg tablet Take 1 tablet by mouth daily at bedtime. - pantoprazole sodium (PANTOPRAZOLE ORAL) Take 40 mg by mouth twice daily. - Multivitamin capsule Take 1 capsule by mouth once daily. - ondansetron orally disintegrating (ZOFRAN ODT) 4 mg disintegrating tablet Take 1 tablet by mouth every 8 hours as needed for nausea/vomiting. - amLODIPine (NORVASC) 2.5 mg tablet Take 1 tablet by mouth once daily. - finasteride (PROSCAR) 5 mg tablet Take 1 tablet by mouth once daily. Facility-Administered Medications as of 04/19/2023 - perflutren lipid microspheres 1.3 mL in NaCl (PF) 0.9% 10 mL injection (DEFINITY) - sodium chloride 0.9 % (flush) 10 mL (BD POSIFLUSH) Problem List As Of Date 04/19/2023 Noted Resolved Abdominal Pain, Epigastric [R10.13] 10/28/2009 Rotator cuff tear [M75.100] 09/30/2010 06/23/2011 Rotator cuff (capsule) sprain [S43.429A] 03/16/2012 06/21/2012 Rotator cuff tear arthropathy [M75.100, M12.819]06/21/2012 Recurrent right inguinal hernia [K40.91] 12/25/2013 Essential hypertension [I10] 06/11/2014 RLS (restless legs syndrome) [G25.81] 09/20/2014 Mild cognitive impairment [G31.84] 09/19/2015 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/19/2015 Elevated prostate specific antigen (PSA) [R97.2*11/19/2015 06/12/2021 BPH (benign prostatic hyperplasia) [N40.0] GERD (gastroesophageal reflux disease) [K21.9] Osteoarthritis [M19.90] Hypertension [I10] 06/09/2017 Elevated PSA [R97.20] 06/09/2017 CKD (chronic kidney disease), stage III (HCC) [* Iron deficiency anemia [D50.9] Acute pain of right shoulder [M25.511] 06/08/2019 Acute pain of left shoulder [M25.512] 05/14/2022 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 Author Type: Registered Nurse Type: Progress Notes Filed: 04/16/2023 4:03 PM Note Text: CDM Telephonic Outreach Provider Action/FYI Contacted for: Routine Telephonic Outreach Contact made with patient: No, left message. Nathaly Spivey RN April 16, 2023 4:03 PM [facility] 04-16-2023 Note Patient Outreach (AM [facility]) ATIF COLÓN ([id number]) 1935 M Date Time Provider Department 04/16/23 NATHALY SPIVEY [facility] your visit today, we recorded the following information about you: Nathaly Spivey RN 04/16/2023 4:03 PM Signed CDM Telephonic Outreach Provider Action/FYI Contacted for: Routine Telephonic Outreach Contact made with patient: No, left message. Nathaly Spivey RN April 16, 2023 4:03 PM Allergies As of Date: 04/16/2023 Noted Allergy Reaction ASPIRIN 09/23/2010 8 - GI Upset PENICILLINS 10/28/2009 2 - Rash Date Reviewed: 04/01/2023 Reviewed by: Jessy Alas LPN - Fully Assessed Reason for Visit: cdm [Other] Cmt: Check in call Primary Visit Diagnosis:CKD (chronic kidney disease) stage 1, GFR 90 ml/min or greater [N18.1] Order(s):PT ED NEPHROLOGY [[id number]] Order #: [id number]: 1 Prescriptions as of 04/16/2023 - acetaminophen 325 mg cap Take 2 capsules by mouth two times a day as needed for pain. - melatonin 10 mg tab Take 1 tablet by mouth daily at bedtime. - sertraline (ZOLOFT) 50 mg tablet Take 1 tablet by mouth once daily. - donepezil (ARICEPT) 5 mg tablet Take 1 tablet by mouth daily at bedtime. - pantoprazole sodium (PANTOPRAZOLE ORAL) Take 40 mg by mouth twice daily. - Multivitamin capsule Take 1 capsule by mouth once daily. - ondansetron orally disintegrating (ZOFRAN ODT) 4 mg disintegrating tablet Take 1 tablet by mouth every 8 hours as needed for nausea/vomiting. - amLODIPine (NORVASC) 2.5 mg tablet Take 1 tablet by mouth once daily. - finasteride (PROSCAR) 5 mg tablet Take 1 tablet by mouth once daily. Facility-Administered Medications as of 04/16/2023 - perflutren lipid microspheres 1.3 mL in NaCl (PF) 0.9% 10 mL injection (DEFINITY) - sodium chloride 0.9 % (flush) 10 mL (BD POSIFLUSH) Problem List As Of Date 04/16/2023 Noted Resolved Abdominal Pain, Epigastric [R10.13] 10/28/2009 Rotator cuff tear [M75.100] 09/30/2010 06/23/2011 Rotator cuff (capsule) sprain [S43.429A] 03/16/2012 06/21/2012 Rotator cuff tear arthropathy [M75.100, M12.819]06/21/2012 Recurrent right inguinal hernia [K40.91] 12/25/2013 Essential hypertension [I10] 06/11/2014 RLS (restless legs syndrome) [G25.81] 09/20/2014 Mild cognitive impairment [G31.84] 09/19/2015 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/19/2015 Elevated prostate specific antigen (PSA) [R97.2*11/19/2015 06/12/2021 BPH (benign prostatic hyperplasia) [N40.0] GERD (gastroesophageal reflux disease) [K21.9] Osteoarthritis [M19.90] Hypertension [I10] 06/09/2017 Elevated PSA [R97.20] 06/09/2017 CKD (chronic kidney disease), stage III (HCC) [* Iron deficiency anemia [D50.9] Acute pain of right shoulder [M25.511] 06/08/2019 Acute pain of left shoulder [M25.512] 05/14/2022 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 Gave verbal to discontinue PRN and to continue scheduled. Cameron Vitale LPN Cancel the PRN. Continue Scheduled 10 mg melatonin qhs. Sadaf Pharmacist with [facility] called in and reports Pt has Melatonin 10 mg routine scheduled and someone called a Melatonin 10 mg PRN to [place] the intermediate. She states the max dose allowed of Melatonin is 12 mg, so if the routine and PRN were given together he would get 20 mg. She is asking to have one of those discontinued. She said you can call the main number and her extension and leave a VM, or call main number and ask for a pharmacist. documented in this encounter [facility] 04-01-2023 Note HNO ID: [id number] Author: Jordan Johnson MD Service: ? Author Type: Physician Type: Progress Notes Filed: 04/04/2023 6:45 AM Note Text: Chief Complaint Patient presents with: Follow Up: 1 month follow up HPI Atif Colón is a 87 year old male who presents here today for Above Complaints. Accompanied today by daughters. very recently and he is coping as well as can be expected. Eating 3 meals per day and snacking in between. Sleeping well at night if he takes vistaril. Does not cause him to feel tired during the day. Taking his Zoloft as prescribed without side effects. Not talking with counseling through hospice yet. Daughter requesting we schedule his tylenol for chronic arthritis pain. Nurses are dispensing his medications, but not asking about this PRN med. CKD: has not had repeat labs since he was discharged from [facility] in February. Admits to adding salt to food. Discussed avoiding NSAIDs. Having some difficulty with sleep. Has been on vistaril in the past. Discussed interaction with other medications. Would be willing to try 10 mg melatonin instead. Dementia symptoms seem to be improved with Aricept 5 mg per family. Past medical history, appointments, medications, allergies reviewed. Previous Medical History PAST MEDICAL HISTORY Diagnosis Date Abdominal pain, epigastric BPH (benign prostatic hyperplasia) CKD (chronic kidney disease), stage III ([facility]) Dr. Childress DDD (degenerative disc disease), lumbar Elevated PSA Gastric ulcer GERD (gastroesophageal reflux disease) Hypertension Hyponatremia Iron deficiency anemia Osteoarthritis RLS (restless legs syndrome) Rotator cuff tear arthropathy Seen previously by Dr. Palomino Senile dementia ([facility]) Previous Surgical History PAST SURGICAL HISTORY Procedure Laterality Date CIRCUMCISION EGD TRANSORAL BIOPSY SINGLE/MULTIPLE 10/29/09 minimal irritation LAPAROSCOPY SURG CHOLECYSTECTOMY 10/31/09 Cholecystectomy, lap REPAIR FIRST ABDOMINAL WALL HERNIA 2006 Hernia repair, incisional SHOULDER ARTHROSCOPY/SURG 11/13/2010 Rotator cuff repair and Sub AC decompression right shouldrer Family History FAMILY HISTORY Problem Relation Age of Onset None Mother Alcohol/Drug Father Heart Brother Patient Allergies ALLERGIES Allergen Reactions Aspirin GI Upset Penicillins Rash Current Medications Current Outpatient Medications on File Prior to Visit Medication Sig hydrOXYzine HCl (ATARAX) 50 mg tablet Take 50 mg by mouth three times a day as needed. At HS prn for sleep the daughter thinks. sertraline (ZOLOFT) 50 mg tablet Take 1 tablet by mouth once daily. donepezil (ARICEPT) 5 mg tablet Take 1 tablet by mouth daily at bedtime. pantoprazole sodium (PANTOPRAZOLE ORAL) Take 40 mg by mouth twice daily. Multivitamin capsule Take 1 capsule by mouth once daily. acetaminophen 325 mg cap Take 325 mg by mouth as needed. ondansetron orally disintegrating (ZOFRAN ODT) 4 mg disintegrating tablet Take 1 tablet by mouth every 8 hours as needed for nausea/vomiting. finasteride (PROSCAR) 5 mg tablet Take 1 tablet by mouth once daily. nitrofurantoin monohydrate and macrocrystal (MACROBID) 100 mg capsule Take 100 mg by mouth twice daily. X 5 days (Patient not taking: Reported on 04/01/2023) amLODIPine (NORVASC) 2.5 mg tablet Take 1 tablet by mouth once daily. melatonin 10 mg tab Take 5 mg by mouth daily at bedtime. Current Facility-Administered Medications on File Prior to Visit Medication perflutren lipid microspheres 1.3 mL in NaCl (PF) 0.9% 10 mL injection (DEFINITY) sodium chloride 0.9 % (flush) 10 mL (BD POSIFLUSH) Social History Social History Tobacco Use Smoking status: Former Packs/day: .2 Types: Cigarettes Quit date: 06/07/1994 Years since quittin.8 Smokeless tobacco: Never Tobacco comments: quit 10 years ago Substance Use Topics Alcohol use: No Drug use: No Review of Symptoms REVIEW OF SYSTEMS GENERAL: No weight loss, malaise or fevers RESPIRATORY: Negative for cough, hemoptysis, wheezing, COPD, dyspnea or shortness of breath CARDIOVASCULAR: Negative for chest pain, leg swelling, hypertension, CHF or palpitations GI: No nausea, vomiting, or diarrhea SKIN: Negative for lesions, rash, and itching EXAM: BP 110/68 Pulse 93 Resp 18 SpO2 96% General Appearance: Well appearing, alert, in no acute distress, well-hydrated, well nourished.. Skin: Skin color, texture, turgor normal, no suspicious rashes or lesions. Lungs: Lungs clear to auscultation. No wheezing, rhonchi, rales.. Heart: RRR without murmur, gallop, or rubs. No ectopy. Abdomen: Normal abdominal exam, Abdomen soft, non-tender. Bowel sounds normal. No masses, organomegaly. Extremities: No deformities, edema, skin discoloration, clubbing or cyanosis. Good capillary refill. . Health Maintenance List RSV Vaccine(1 - 1-dose 60+ series) Never done Shingrix V (more content not included)... [facility] 04-01-2023 History of Present illness Narrative Chief Complaint Patient presents with: Follow Up: 1 month follow up HPI Atif Colón is a 87 year old male who presents here today for Above Complaints. Accompanied today by daughters. very recently and he is coping as well as can be expected. Eating 3 meals per day and snacking in between. Sleeping well at night if he takes vistaril. Does not cause him to feel tired during the day. Taking his Zoloft as prescribed without side effects. Not talking with counseling through hospice yet. Daughter requesting we schedule his tylenol for chronic arthritis pain. Nurses are dispensing his medications, but not asking about this PRN med. CKD: has not had repeat labs since he was discharged from [facility] in February. Admits to adding salt to food. Discussed avoiding NSAIDs. Having some difficulty with sleep. Has been on vistaril in the past. Discussed interaction with other medications. Would be willing to try 10 mg melatonin instead. Dementia symptoms seem to be improved with Aricept 5 mg per family. Past medical history, appointments, medications, allergies reviewed. Previous Medical History PAST MEDICAL HISTORY Diagnosis Date Abdominal pain, epigastric BPH (benign prostatic hyperplasia) CKD (chronic kidney disease), stage III (HCC) Dr. Childress DDD (degenerative disc disease), lumbar Elevated PSA Gastric ulcer GERD (gastroesophageal reflux disease) Hypertension Hyponatremia Iron deficiency anemia Osteoarthritis RLS (restless legs syndrome) Rotator cuff tear arthropathy Seen previously by Dr. Palomino Senile dementia (HCC) Previous Surgical History PAST SURGICAL HISTORY Procedure Laterality Date CIRCUMCISION EGD TRANSORAL BIOPSY SINGLE/MULTIPLE 10/29/09 minimal irritation LAPAROSCOPY SURG CHOLECYSTECTOMY 10/31/09 Cholecystectomy, lap REPAIR FIRST ABDOMINAL WALL HERNIA 2006 Hernia repair, incisional SHOULDER ARTHROSCOPY/SURG 11/13/2010 Rotator cuff repair and Sub AC decompression right shouldrer Family History FAMILY HISTORY Problem Relation Age of Onset None Mother Alcohol/Drug Father Heart Brother Patient Allergies ALLERGIES Allergen Reactions Aspirin GI Upset Penicillins Rash Current Medications Current Outpatient Medications on File Prior to Visit Medication Sig hydrOXYzine HCl (ATARAX) 50 mg tablet Take 50 mg by mouth three times a day as needed. At HS prn for sleep the daughter thinks. sertraline (ZOLOFT) 50 mg tablet Take 1 tablet by mouth once daily. donepezil (ARICEPT) 5 mg tablet Take 1 tablet by mouth daily at bedtime. pantoprazole sodium (PANTOPRAZOLE ORAL) Take 40 mg by mouth twice daily. Multivitamin capsule Take 1 capsule by mouth once daily. acetaminophen 325 mg cap Take 325 mg by mouth as needed. ondansetron orally disintegrating (ZOFRAN ODT) 4 mg disintegrating tablet Take 1 tablet by mouth every 8 hours as needed for nausea/vomiting. finasteride (PROSCAR) 5 mg tablet Take 1 tablet by mouth once daily. nitrofurantoin monohydrate and macrocrystal (MACROBID) 100 mg capsule Take 100 mg by mouth twice daily. X 5 days (Patient not taking: Reported on 04/01/2023) amLODIPine (NORVASC) 2.5 mg tablet Take 1 tablet by mouth once daily. melatonin 10 mg tab Take 5 mg by mouth daily at bedtime. Current Facility-Administered Medications on File Prior to Visit Medication perflutren lipid microspheres 1.3 mL in NaCl (PF) 0.9% 10 mL injection (DEFINITY) sodium chloride 0.9 % (flush) 10 mL (BD POSIFLUSH) Social History Social History Tobacco Use Smoking status: Former Packs/day: .2 Types: Cigarettes Quit date: 06/07/1994 Years since quittin.8 Smokeless tobacco: Never Tobacco comments: quit 10 years ago Substance Use Topics Alcohol use: No Drug use: No Review of Symptoms REVIEW OF SYSTEMS GENERAL: No weight loss, malaise or fevers RESPIRATORY: Negative for cough, hemoptysis, wheezing, COPD, dyspnea or shortness of breath CARDIOVASCULAR: Negative for chest pain, leg swelling, hypertension, CHF or palpitations GI: No nausea, vomiting, or diarrhea SKIN: Negative for lesions, rash, and itching EXAM: BP 110/68 Pulse 93 Resp 18 SpO2 96% General Appearance: Well appearing, alert, in no acute distress, well-hydrated, well nourished.. Skin: Skin color, texture, turgor normal, no suspicious rashes or lesions. Lungs: Lungs clear to auscultation. No wheezing, rhonchi, rales.. Heart: RRR without murmur, gallop, or rubs. No ectopy. Abdomen: Normal abdominal exam, Abdomen soft, non-tender. Bowel sounds normal. No masses, organomegaly. Extremities: No deformities, edema, skin discoloration, clubbing or cyanosis. Good capillary refill. . Health Maintenance List RSV Vaccine(1 - 1-dose 60+ series) Never done Shingrix Vaccine(2 of 3) due on 08/02/2009 Advance Directive Discussion Never done Influenza Vaccine(1) due on 02/05/2023 Covid-19 Vaccine(2022- season) due on 02/05/2023 Diabetes Screening due on 01/29/2026 DTaP,Tdap,Td Vaccine(3 - Td or Tdap) due on 09/30/2032 Pneumococcal Vaccine: 65+ Completed ASSESSMENT/PLAN: 1. 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 Continue current dosage. Discussed typical grief reaction and offered my condolences on the passing of his . Encouraged counseling through hospice or to let us know if he would like a referral. 2. Grief reaction - ICD9: 309.0, ICD10: F43.21 3. Senile dementia (HCC) - ICD9: 290.0, ICD10: F03.90 Improved with Aricept. 4. Stage 3a chronic kidney disease (HCC) - ICD9: 585.3, ICD10: N18.31 Recheck CMP - Counseled on avoiding NSAIDs, adequate hydration - Counseled on low sodium diet - COMP METABOLIC PANEL 5. Chronic insomnia - ICD9: 780.52, ICD10: F51.04 Increase melatonin to 10 mg daily. 6. Primary osteoarthritis, unspecified site - ICD9: 715.10, ICD10: M19.91 Schedule tylenol TID. Will check LFTs and make adjustments if needed. I spent a total of 30 minutes on the date of the service which included preparing to see the patient, [id number] patient care, completing clinical documentation, obtaining and/or reviewing separately obtained history, performing a medically appropriate examination, counseling and educating the patient/family/caregiver, ordering medications, tests, or procedures, independently interpreting results (not separately reported), and communicating results to the patient/family/caregiver. Jordan Johnson MD documented in this encounter [facility] 03-28-2023 Miscellaneous Notes Reason for Call: Patient's POA calling with concern for anxiety. States patient's is actively dying and patient is having difficulty with his grief. States he has episodes of crying hysterically and hyperventilating. States patient calms down when he his away from his 's bedside. POA is concerned that patient's symptoms will get worse when his passes. Outcome: Advised to SEE PCP WITHIN 24 HOURS. Patient's verbalized understanding and is agreeable to the plan. Transferred to [facility] at the appointment center for scheduling. Reason for Disposition Patient sounds very upset or troubled to the triager Answer Assessment - Initial Assessment Questions 1. CONCERN: Severe episodes of anxiety 2. ANXIETY SYMPTOMS: Crying, restless, hyperventilating 3. ONSET: Today 4. SEVERITY: Intermittent and severe 5. FUNCTIONAL IMPAIRMENT: Affecting daily activities. 6. HISTORY: History of anxiety but never this severe. 7. RISK OF HARM - Denies suicidal ideation. Denies Homicidal ideation. 8. TREATMENT: No current treatments for anxiety. 9. TREATMENT - Patient does not currently see a therapist 10. POTENTIAL TRIGGERS: is actively dying. 11. PATIENT SUPPORT: Famly 12. OTHER SYMPTOMS: Overwhelming grief related to actively dying. Protocols used: Anxiety and Panic Frjakc-LNPFS-HJ documented in this encounter [facility] 03-18-2023 Note HNO ID: [id number] Author: Deirdre Grimaldo RN Service: ? Author Type: Registered Nurse Type: Progress Notes Filed: 03/18/2023 3:53 PM Note Text: CDM Telephonic Outreach Provider Action/ANIBALI CKD outreach Feels much better His only concern right now is that he needs a haircut Contacted for: Routine Telephonic Outreach Contact made with patient: Yes Patient identified by name and date of . Discussed care with patient Are you experiencing any new or worsening symptoms you need to talk about today? No Disease Specific Do you check your blood pressure at home? No-has a BP cuff but has not checked his BP in a while Do you have new or worsening shortness of breath with activity? No Do you feel like you are dehydrated for any reason, including not being able to eat or drink normally, or having less urine/much darker urine than normal for you? No Do you check your daily weight at home? No does not have a scale Based on commercial sales consultant, the following disposition is advised: No symptoms or symptoms present, not severe. Routed to: No Action Needed YASSINE Education Provided this Outreach: No Deirdre Grimaldo RN March 18, 2023 3:52 PM [facility] 03-18-2023 History of Present illness Narrative CD Telephonic Outreach Provider Action/ANIBALI CKD outreach Feels much better His only concern right now is that he needs a haircut Contacted for: Routine Telephonic Outreach Contact made with patient: Yes Patient identified by name and date of . Discussed care with patient Are you experiencing any new or worsening symptoms you need to talk about today? No Disease Specific Do you check your blood pressure at home? No-has a BP cuff but has not checked his BP in a while Do you have new or worsening shortness of breath with activity? No Do you feel like you are dehydrated for any reason, including not being able to eat or drink normally, or having less urine/much darker urine than normal for you? No Do you check your daily weight at home? No does not have a scale Based on commercial sales consultant, the following disposition is advised: No symptoms or symptoms present, not severe. Routed to: No Action Needed YASSINE Education Provided this Outreach: No Deirdre Grimaldo RN March 18, 2023 3:52 PM documented in this encounter [facility] 03-18-2023 Note Patient Outreach (AM [facility]) AITF COLÓN ([id number]) 1935 M Date Time Provider Department 03/18/23 DEIRDRE GRIMALDO During your visit today, we recorded the following information about you: Deirdre Grimaldo RN 03/18/2023 3:53 PM Signed CDM Telephonic Outreach Provider Action/FYI CKD outreach Feels much better His only concern right now is that he needs a haircut Contacted for: Routine Telephonic Outreach Contact made with patient: Yes Patient identified by name and date of . Discussed care with patient Are you experiencing any new or worsening symptoms you need to talk about today? No Disease Specific Do you check your blood pressure at home? No-has a BP cuff but has not checked his BP in a while Do you have new or worsening shortness of breath with activity? No Do you feel like you are dehydrated for any reason, including not being able to eat or drink normally, or having less urine/much darker urine than normal for you? No Do you check your daily weight at home? No does not have a scale Based on commercial sales consultant, the following disposition is advised: No symptoms or symptoms present, not severe. Routed to: No Action Needed YASSINE Education Provided this Outreach: No Deirdre Grimaldo RN March 18, 2023 3:52 PM Allergies As of Date: 03/18/2023 Noted Allergy Reaction ASPIRIN 09/23/2010 8 - GI Upset PENICILLINS 10/28/2009 2 - Rash Date Reviewed: 02/11/2023 Reviewed by: Jessy Alas LPN - Fully Assessed Reason for Visit: community monitoring outreach [Other] Cmt: CDM outreach Prescriptions as of 03/18/2023 - acetaminophen 325 mg cap Take 325 mg by mouth as needed. - amLODIPine (NORVASC) 2.5 mg tablet Take 1 tablet by mouth once daily. - donepezil (ARICEPT) 5 mg tablet Take 1 tablet by mouth daily at bedtime. - finasteride (PROSCAR) 5 mg tablet Take 1 tablet by mouth once daily. - melatonin 10 mg tab Take 5 mg by mouth daily at bedtime. - Multivitamin capsule Take 1 capsule by mouth once daily. - nitrofurantoin monohydrate and macrocrystal (MACROBID) 100 mg capsule Take 100 mg by mouth twice daily. X 5 days - ondansetron orally disintegrating (ZOFRAN ODT) 4 mg disintegrating tablet Take 1 tablet by mouth every 8 hours as needed for nausea/vomiting. - pantoprazole sodium (PANTOPRAZOLE ORAL) Take 40 mg by mouth twice daily. - sertraline (ZOLOFT) 50 mg tablet Take 1 tablet by mouth once daily. Facility-Administered Medications as of 03/18/2023 - perflutren lipid microspheres 1.3 mL in NaCl (PF) 0.9% 10 mL injection (DEFINITY) - sodium chloride 0.9 % (flush) 10 mL (BD POSIFLUSH) Problem List As Of Date 03/18/2023 Noted Resolved Abdominal Pain, Epigastric [R10.13] 10/28/2009 Rotator cuff tear [M75.100] 09/30/2010 06/23/2011 Rotator cuff (capsule) sprain [S43.429A] 03/16/2012 06/21/2012 Rotator cuff tear arthropathy [M75.100, M12.819]06/21/2012 Recurrent right inguinal hernia [K40.91] 12/25/2013 Essential hypertension [I10] 06/11/2014 RLS (restless legs syndrome) [G25.81] 09/20/2014 Mild cognitive impairment [G31.84] 09/19/2015 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/19/2015 Elevated prostate specific antigen (PSA) [R97.2*11/19/2015 06/12/2021 BPH (benign prostatic hyperplasia) [N40.0] GERD (gastroesophageal reflux disease) [K21.9] Osteoarthritis [M19.90] Hypertension [I10] 06/09/2017 Elevated PSA [R97.20] 06/09/2017 CKD (chronic kidney disease), stage III (HCC) [* Iron deficiency anemia [D50.9] Acute pain of right shoulder [M25.511] 06/08/2019 Acute pain of left shoulder [M25.512] 05/14/2022 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 Author Type: ? Type: Progress Notes Filed: 03/05/2023 9:12 AM Note Text: POPULATION HEALTH NAVIGATION OUTREACH Action/I 2nd attempt- spoke to patients who requested I call daughter celeste to schedule an appt since she brings patient to visits. Patient was sleeping still at time of call also. Spoke to daughter celeste who states she prefers to wait until appt on 04-01-23 to follow up from virtualist and med follow up. Daughter states its hard for patient to come into office for appts. I did inform daughter nurse advised to be seen sooner for: Virtualist Escalation Follow-Up Patient escalated to Virtualist on: 03/03/23 Reason for escalation: increased cough, chest congestion, Wheezing, and coughing up White phlegm for 2 days Daughter declined stating she will call back if there are any complications. Patient Identified by Name and : YES, via phone Outreach Outcome/Action Spoke to patient / parent / legal guardian: Patient declined Did you use a PCP flex slot to schedule this appointment? N/A Navigation Signature: Jaja Castillo Population Health Navigator March 05, 2023 9:08 AM [facility] 03-04-2023 Note HNO ID: [id number] Author: Jonathan Population Health Navigator Jaja Hartmann Service: ? Author Type: ? Type: Progress Notes Filed: 03/04/2023 2:07 PM Note Text: POPULATION HEALTH NAVIGATION OUTREACH Action/ 1st attempt- lvm home number and sent mychart to schedule follow up appt virtualist visit. Also tried calling mobile number listed, but call would not go thru. Virtualist Escalation Follow-Up Patient escalated to Virtualist on: 03/03/23 Reason for escalation: increased cough, chest congestion, Wheezing, and coughing up White phlegm for 2 days Postponed message x1 day- will attempt call again Patient Identified by Name and : NO Outreach Outcome/Action Unable to reach patient: Left message MyChart message sent Did you use a PCP flex slot to schedule this appointment? N/A Reason for Outreach [facility] Payer: Payor: [employer] MEDICARE / Plan: [employer] MEDICARE PPO / Product Type: PPO / Care Gap Reviewed:: Follow-up appointment Reminder: Reminder note to check Health Maintenance for items below Health Maintenance items due: Shingrix Vaccine(2 of 3) due on 08/02/2009 Advance Directive Discussion Never done Covid-19 Vaccine(7 - Moderna series) due on 07/17/2022 Influenza Vaccine(1) due on 02/05/2023 Navigation Signature: Jaja Castillo Population Health Navigator March 04, 2023 2:05 PM [facility] 03-04-2023 History of Present illness Narrative POPULATION HEALTH NAVIGATION OUTREACH Action/ 1st attempt- lvm home number and sent mychart to schedule follow up appt virtualist visit. Also tried calling mobile number listed, but call would not go thru. Virtualist Escalation Follow-Up Patient escalated to Virtualist on: 03/03/23 Reason for escalation: increased cough, chest congestion, Wheezing, and coughing up White phlegm for 2 days Postponed message x1 day- will attempt call again Patient Identified by Name and : NO Outreach Outcome/Action Unable to reach patient: Left message MyChart message sent Did you use a PCP flex slot to schedule this appointment? N/A Reason for Outreach [facility] Payer: Payor: [employer] MEDICARE / Plan: [employer] MEDICARE PPO / Product Type: PPO / Care Gap Reviewed:: Follow-up appointment Reminder: Reminder note to check Health Maintenance for items below Health Maintenance items due: Shingrix Vaccine(2 of 3) due on 08/02/2009 Advance Directive Discussion Never done Covid-19 Vaccine(7 - Moderna series) due on 07/17/2022 Influenza Vaccine(1) due on 02/05/2023 Navigation Signature: Jaja Hartmann [facility] Navigator March 04, 2023 2:05 PM Electron[address] signed by [facility] NavigatorJaja at 03/04/2023 2:07 PM EDT CDM ESCALATION Provider Action / FYI: Navigators please assist pt with scheduling a follow up with Fabby Moore per pt request. Saw Virtualist yesterday. Message received via: Virtualist Escalation Follow-Up Patient escalated to Virtualist on: 03/03/23 Reason for escalation: increased cough, chest congestion, Wheezing, and coughing up White phlegm for 2 days Virtualist intervention: Doxycycline and Medrol dose brandon ordered Contact made with patient: Yes Patient identified by name and date of . Discussed care with patient Based on commercial sales consultant the following disposition is advised: No symptoms or symptoms present, not severe. Routed to: Navigation Team: PCP visit within 7 days YASSINE Education Provided this Outreach: No Pt reports he is doing a little better I think it's trying to break up He states he did start his antibiotic and medrol dose brandon. Pt is requesting an appointment with Fabby Moore. Message sent to the navigators to assist. Pt has no additional needs, concerns, or questions at this time. Wally Martinez RN March 04, 2023 1:49 PM documented in this encounter [facility] 03-04-2023 Note HNO ID: [id number] Author: Wally Martinez RN Service: ? Author Type: Registered Nurse Type: Progress Notes Filed: 03/04/2023 1:54 PM Note Text: CDM ESCALATION Provider Action / FYI: Navigators please assist pt with scheduling a follow up with Fabby Moore per pt request. Saw Virtualist yesterday. Message received via: Virtualist Escalation Follow-Up Patient escalated to Virtualist on: 03/03/23 Reason for escalation: increased cough, chest congestion, Wheezing, and coughing up White phlegm for 2 days Virtualist intervention: Doxycycline and Medrol dose brandon ordered Contact made with patient: Yes Patient identified by name and date of . Discussed care with patient Based on commercial sales consultant the following disposition is advised: No symptoms or symptoms present, not severe. Routed to: Navigation Team: PCP visit within 7 days YASSINE Education Provided this Outreach: No Pt reports he is doing a little better I think it's trying to break up He states he did start his antibiotic and medrol dose brandon. Pt is requesting an appointment with Fabby Moore. Message sent to the navigators to assist. Pt has no additional needs, concerns, or questions at this time. Wally Martinez RN March 04, 2023 1:49 PM [facility] 03-04-2023 Note Patient Outreach ([facility] ATIF COLÓN ([id number]) 1935 M Date Time Provider Department 03/04/23 WALLY MARTINEZ [facility] During your visit today, we recorded the following information about you: Wally Martinez RN 03/04/2023 1:54 PM Signed CDM ESCALATION Provider Action / FYI: Navigators please assist pt with scheduling a follow up with Fabby Moore per pt request. Saw Virtualist yesterday. Message received via: Virtualist Escalation Follow-Up Patient escalated to Virtualist on: 03/03/23 Reason for escalation: increased cough, chest congestion, Wheezing, and coughing up White phlegm for 2 days Virtualist intervention: Doxycycline and Medrol dose brandon ordered Contact made with patient: Yes Patient identified by name and date of . Discussed care with patient Based on commercial sales consultant the following disposition is advised: No symptoms or symptoms present, not severe. Routed to: Navigation Team: PCP visit within 7 days YASSINE Education Provided this Outreach: No Pt reports he is doing a little better I think it's trying to break up He states he did start his antibiotic and medrol dose brandon. Pt is requesting an appointment with Fabby Moore. Message sent to the navigators to assist. Pt has no additional needs, concerns, or questions at this time. Wally Martinez RN March 04, 2023 1:49 PM Jonathan Population Health Jaja Castillo 03/04/2023 2:07 PM Signed POPULATION [employer] NAVIGATION OUTREACH Action/ attempt- lvm home number and sent [employer] to schedule follow up appt virtualist visit. Also tried calling mobile number listed, but call would not go thru. Virtualist Escalation Follow-Up Patient escalated to Virtualist on: 03/03/23 Reason for escalation: increased cough, chest congestion, Wheezing, and coughing up White phlegm for 2 days Postponed message x1 day- will attempt call again Patient Identified by Name and : NO Outreach Outcome/Action Unable to reach patient: Left message [employer] message sent Did you use a PCP flex slot to schedule this appointment? N/A Reason for Outreach [facility] Payer: Payor: [employer] MEDICARE / Plan: [employer] MEDICARE PPO / Product Type: PPO / Care Gap Reviewed:: Follow-up appointment Reminder: Reminder note to check Health Maintenance for items below Health Maintenance items due: Shingrix Vaccine(2 of 3) due on 08/02/2009 Advance Directive Discussion Never done Covid-19 Vaccine(7 - Moderna series) due on 07/17/2022 Influenza Vaccine(1) due on 02/05/2023 Navigation Signature: Jaja Castillo Population Health Navigator March 04, 2023 2:05 PM Jonathan Population [employer] Jaja Castillo 03/05/2023 9:12 AM Signed POPULATION [employer] NAVIGATION OUTREACH Action/ 2nd attempt- spoke to patients who requested I call daughter celeste to schedule an appt since she brings patient to visits. Patient was sleeping still at time of call also. Spoke to daughter celeste who states she prefers to wait until appt on 04-01-23 to follow up from virtualist and med follow up. Daughter states its hard for patient to come into office for appts. I did inform daughter nurse advised to be seen sooner for: Virtualist Escalation Follow-Up Patient escalated to Virtualist on: 03/03/23 Reason for escalation: increased cough, chest congestion, Wheezing, and coughing up White phlegm for 2 days Daughter declined stating she will call back if there are any complications. Patient Identified by Name and : YES, via phone Outreach Outcome/Action Spoke to patient / parent / legal guardian: Patient declined Did you use a PCP flex slot to schedule this appointment? N/A Navigation Signature: Jaja Hartmann [facility] Health Navigator March 05, 2023 9:08 AM Allergies As of Date: 03/04/2023 Noted Allergy Reaction ASPIRIN 09/23/2010 8 - GI Upset PENICILLINS 10/28/2009 2 - Rash Date Reviewed: 02/11/2023 Reviewed by: Jessy Alas LPN - Fully Assessed Reason for Visit: CDM [Other] Cmt: Escalation follow up Prescriptions as of 03/05/2023 - methylPREDNISolone (MEDROL, BRANDON,) 4 mg Dose-Pack As Instructed per package - doxycycline hyclate (VIBRAMYCIN) 100 mg capsule Take 1 capsule by mouth twice daily for 5 days. - nitrofurantoin monohydrate and macrocrystal (MACROBID) 100 mg capsule Take 100 mg by mouth twice daily. X 5 days - sertraline (ZOLOFT) 50 mg tablet Take 1 tablet by mouth once daily. - donepezil (ARICEPT) 5 mg tablet Take 1 tablet by mouth daily at bedtime. - pantoprazole sodium (PANTOPRAZOLE ORAL) Take 40 mg by mouth twice daily. - Multivitamin capsule Take 1 capsule by mouth once daily. - acetaminophen 325 mg cap Take 325 mg by mouth as needed. - ondansetron orally disintegrating (ZOFRAN ODT) 4 mg disintegrating tablet Take 1 tablet by mouth every 8 hours as needed for nausea (more content not included)... [facility] 03-03-2023 Note HNO ID: [id number] Author: Yvette Blum APRN.PHARMACY ANALYST Service: ? Author Type: Nurse Practitioner Type: Progress Notes Filed: 03/03/2023 2:59 PM Note Text: Virtualist Distance Health Note (CDM/TCM//CC HC/H@[facility] escalations) I have communicated my name and active licensure. The patient's identity and physical location were verified at the time of this visit. Either the patient or their legal ocean import representative has been informed of the risks and benefits of -- and alternatives to -- treatment through a remote evaluation and consents to proceed with the evaluation remotely. Triage source: Chronic Disease Management Contacted by: Audio Only Visit History of present illness: Hx CKD, HTN Having increased coughing, chest congestion, wheezing for past 2 days Denies fever, chest pain, abd pain, N/V/D Past medical history, past surgical history, family history and social history reviewed and updated. REVIEW OF SYSTEMS: Review of Systems VITAL SIGNS: (if available) There were no vitals taken for this visit. Physical Exam (if video visit was performed) Physical Exam Assessment/Plan: ASSESSMENT/PLAN: 1. Subacute cough - ICD9: 786.2, ICD10: R05.2 2. Wheezing - ICD9: 786.07, ICD10: R06.2 3. Chest congestion - ICD9: 786.9, ICD10: R09.89 -Doxycycline and Medrol dose brandon ordered Disposition: Patient remains at home; meds adjusted and / or prescribed A total of 12 minutes was spent providing medical care using telemedicine. Signed in as Primary Virtualist, Secondary Virtualist, or [facility] Telehealth provider: Primary [facility] 03-03-2023 Note HNO ID: [id number] Author: Wally Martinez RN Service: ? Author Type: Registered Nurse Type: Progress Notes Filed: 03/04/2023 3:41 PM Note Text: [facility] Telephonic Outreach Provider Action/FYI Virtualist paged Pt complaining of increased cough, chest congestion, Wheezing, and coughing up White phlegm for 2 days. He is taking Mucinex without benefit. Pt agrees to speak with virtualist. Pt denies any fever, chills, or sob. Time Stamp: 03/03/2023 2:46 PM CLOSE Pagers Name Pager Type Status OK Primary Virtualist Pager [phone] Alpha Sent Contacted for: Routine Telephonic Outreach Contact made with patient: Yes Patient identified by name and date of . Discussed care with patient Are you experiencing any new or worsening symptoms you need to talk about today? Yes Based on commercial sales consultant, the following disposition is advised: Sent to virtualist. Pt complaining of increased cough, chest congestion, Wheezing, and coughing up White phlegm for 2 days. He is taking Mucinex without benefit. Pt agrees to speak with virtualist. Pt denies any fever, chills, or sob. Wally Martinez RN March 03, 2023 2:38 PM [facility] 03-03-2023 History of Present illness Narrative [facility] Telephonic Outreach Provider Action/ANIBALI Virtualist paged Pt complaining of increased cough, chest congestion, Wheezing, and coughing up White phlegm for 2 days. He is taking Mucinex without benefit. Pt agrees to speak with virtualist. Pt denies any fever, chills, or sob. Time Stamp: 03/03/2023 2:46 PM CLOSE Pagers Name Pager Type Status OK Primary Virtualist Pager [phone] Alpha Sent Contacted for: Routine Telephonic Outreach Contact made with patient: Yes Patient identified by name and date of . Discussed care with patient Are you experiencing any new or worsening symptoms you need to talk about today? Yes Based on commercial sales consultant, the following disposition is advised: Sent to virtualist. Pt complaining of increased cough, chest congestion, Wheezing, and coughing up White phlegm for 2 days. He is taking Mucinex without benefit. Pt agrees to speak with virtualist. Pt denies any fever, chills, or sob. Wally Martinez RN March 03, 2023 2:38 PM documented in this encounter [facility] 03-03-2023 Note Patient Outreach ([facility]) ATIF COLÓN ([id number]) 1935 M Date Time Provider Department 03/03/23 WALLY MARTINEZ During your visit today, we recorded the following information about you: Wally Martinez RN 03/04/2023 3:41 PM Signed CDM Telephonic Outreach Provider Gena/JUJU Virtualist paged Pt complaining of increased cough, chest congestion, Wheezing, and coughing up White phlegm for 2 days. He is taking Mucinex without benefit. Pt agrees to speak with virtualist. Pt denies any fever, chills, or sob. Time Stamp: 03/03/2023 2:46 PM CLOSE Pagers Name Pager Type Status OK Primary Virtualist Pager [phone] Alpha Sent Contacted for: Routine Telephonic Outreach Contact made with patient: Yes Patient identified by name and date of . Discussed care with patient Are you experiencing any new or worsening symptoms you need to talk about today? Yes Based on commercial sales consultant, the following disposition is advised: Sent to virtualist. Pt complaining of increased cough, chest congestion, Wheezing, and coughing up White phlegm for 2 days. He is taking Mucinex without benefit. Pt agrees to speak with virtualist. Pt denies any fever, chills, or sob. Wally Martinez RN March 03, 2023 2:38 PM Allergies As of Date: 03/03/2023 Noted Allergy Reaction ASPIRIN 09/23/2010 8 - GI Upset PENICILLINS 10/28/2009 2 - Rash Date Reviewed: 02/11/2023 Reviewed by: Jessy Alas LPN - Fully Assessed Reason for Visit: CDM [Other] Cmt: Telephonic Outreach Prescriptions as of 03/04/2023 - methylPREDNISolone (MEDROL, BRANDON,) 4 mg Dose-Pack As Instructed per package - doxycycline hyclate (VIBRAMYCIN) 100 mg capsule Take 1 capsule by mouth twice daily for 5 days. - nitrofurantoin monohydrate and macrocrystal (MACROBID) 100 mg capsule Take 100 mg by mouth twice daily. X 5 days - sertraline (ZOLOFT) 50 mg tablet Take 1 tablet by mouth once daily. - donepezil (ARICEPT) 5 mg tablet Take 1 tablet by mouth daily at bedtime. - pantoprazole sodium (PANTOPRAZOLE ORAL) Take 40 mg by mouth twice daily. - Multivitamin capsule Take 1 capsule by mouth once daily. - acetaminophen 325 mg cap Take 325 mg by mouth as needed. - ondansetron orally disintegrating (ZOFRAN ODT) 4 mg disintegrating tablet Take 1 tablet by mouth every 8 hours as needed for nausea/vomiting. - amLODIPine (NORVASC) 2.5 mg tablet Take 1 tablet by mouth once daily. - finasteride (PROSCAR) 5 mg tablet Take 1 tablet by mouth once daily. - melatonin 10 mg tab Take 5 mg by mouth daily at bedtime. Facility-Administered Medications as of 03/04/2023 - perflutren lipid microspheres 1.3 mL in NaCl (PF) 0.9% 10 mL injection (DEFINITY) - sodium chloride 0.9 % (flush) 10 mL (BD POSIFLUSH) Problem List As Of Date 03/03/2023 Noted Resolved Abdominal Pain, Epigastric [R10.13] 10/28/2009 Rotator cuff tear [M75.100] 09/30/2010 06/23/2011 Rotator cuff (capsule) sprain [S43.429A] 03/16/2012 06/21/2012 Rotator cuff tear arthropathy [M75.100, M12.819]06/21/2012 Recurrent right inguinal hernia [K40.91] 12/25/2013 Essential hypertension [I10] 06/11/2014 RLS (restless legs syndrome) [G25.81] 09/20/2014 Mild cognitive impairment [G31.84] 09/19/2015 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/19/2015 Elevated prostate specific antigen (PSA) [R97.2*11/19/2015 06/12/2021 BPH (benign prostatic hyperplasia) [N40.0] GERD (gastroesophageal reflux disease) [K21.9] Osteoarthritis [M19.90] Hypertension [I10] 06/09/2017 Elevated PSA [R97.20] 06/09/2017 CKD (chronic kidney disease), stage III (HCC) [* Iron deficiency anemia [D50.9] Acute pain of right shoulder [M25.511] 06/08/2019 Acute pain of left shoulder [M25.512] 05/14/2022 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] 10/07/2022 Intraparenchymal hemorrhage of brain (HCC) [I61*12/24/2022 12/28/2022 Brain bleed (HCC) [I61.9] 12/24/2022 12/28/2022 Delirium [R41.0] 12/26/2022 Gastric ulcer [K25.9] 02/11/2023 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 Accompanied today by daughter Sindy. Patient admitted to [facility] from 02/04 to 02/06 for possible sepsis UTI with bradycardia and hypotension. Patient did not have leukocytosis on arrival to the ED and lactic acid level was 1.5. Mildly anemic at 10.9. hyponatremic with sodium level 133. Troponins negative. Urine culture positive for e coli which was villa sensitive. Discharged home with macrobid x 5 days. Discontinued his carvedilol due to bradycardia and hypotension. Lisinopril also held. Discharged back to [facility] living. Hemoglobin down to 10.1 prior to discharge. Since discharge, patient has been taking macrobid as prescribed and urinary symptoms have improved. Denies dysuria, hematuria, frequency, urgency, fever/chills, abdominal pain, nausea, vomiting. has been checking his BP at home daily, but did not bring readings with him today. Daughter states that BP has been good with readings in the 130/80's. Denies feeling lightheaded, dizzy, or syncope. Tolerating PO diet and is eating 3 meals per day. Daughter states his appetite has improved. Not drinking much water during the day. No falls since discharge. Patient has been refusing his iron tablet because it causes constipation and dark stools. States that his gives him stool softeners and miralax 3 times per day and has normal BM when he is not on the iron. States that he will just increase the iron in his diet. Last BM yesterday and daughter believes it was normal. Has follow up appointment with GI on 02/19 to follow up on gastric ulcer and biopsy results. Daughter requesting refill on Aricept for his dementia. States that it seems to be helping some days. No side effects noted. Also complaining of depression symptoms which started about more than 1 month ago. 02/11/2023 1643 Last Filed Value PHQ-9 Little interest or pleasure in doing things Not at all Not at allLittle interest or pleasure in doing things. Not at all. Last Filed Value Feeling down, depressed, or hopeless More than half the days More than half the daysFeeling down, depressed, or hopeless. More than half the days. Last Filed Value Trouble falling or staying asleep, or sleeping too much Nearly every day Nearly every day Feeling tired or having little energy More than half the days More than half the days Poor appetite or overeating Nearly every day Nearly every day Feeling bad about yourself - or that you are a failure or have let yourself or your family down More than half the days More than half the days Trouble concentrating on things, such as reading the newspaper or watching television Not at all Not at all Moving or speaking so slowly that other people could have noticed. Or the opposite - being so fidgety or restless that you have been moving around a lot more than usual Not at all Not at all Thoughts that you would be better off , or of hurting yourself in some way Not at all Not at all If you checked off any problems, how difficult have these problems made it for you to do your work, take care of things at home, or get along with other people? -- -- PHQ-9 score 12 12 PHQ-9 Score 12 12 PHQ-2 score 2 2 PHQ-2 Score 2 2 Past medical history, appointments, medications, allergies reviewed. Previous Medical History PAST MEDICAL HISTORY Diagnosis Date Abdominal pain, epigastric BPH (benign prostatic hyperplasia) CKD (chronic kidney disease), stage III (HCC) Dr. Childress DDD (degenerative disc disease), lumbar Elevated PSA GERD (gastroesophageal reflux disease) Hypertension Hyponatremia Iron deficiency anemia Osteoarthritis RLS (restless legs syndrome) Rotator cuff tear arthropathy Seen previously by Dr. Palomino Previous Surgical History PAST SURGICAL HISTORY Procedure Laterality Date CIRCUMCISION EGD TRANSORAL BIOPSY SINGLE/MULTIPLE 10/29/09 minimal irritation LAPAROSCOPY SURG CHOLECYSTECTOMY 10/31/09 Cholecystectomy, lap REPAIR FIRST ABDOMINAL WALL HERNIA 2006 Hernia repair, incisional SHOULDER ARTHROSCOPY/SURG 11/13/2010 Rotator cuff repair and Sub AC decompression right shouldrer Family History FAMILY HISTORY Problem Relation Age of Onset None Mother Alcohol/Drug Father Heart Brother Patient Allergies ALLERGIES Allergen Reactions Aspirin GI Upset Penicillins Rash Current Medications Current Outpatient Medications on File Prior to Visit Medication Sig nitrofurantoin monohydrate and macrocrystal (MACROBID) 100 mg capsule Take 100 mg by mouth twice daily. X 5 days pantoprazole sodium (PANTOPRAZOLE ORAL) Take 40 mg by mouth twice daily. donepezil (ARICEPT) 5 mg tablet Take 5 mg by mouth daily at bedtime. Multivitamin capsule Take 1 capsule by mouth once daily. acetaminophen 325 mg cap Take 325 mg by mouth as needed. ondansetron orally disintegrating (ZOFRAN ODT) 4 mg disintegrating tablet Take 1 tablet by mouth every 8 hours as needed for nausea/vomiting. amLODIPine (NORVASC) 2.5 mg tablet Take 1 tablet by mouth once daily. terazosin (HYTRIN) 5 mg capsule TAKE 1 CAPSULE BY MOUTH DAILY AT BEDTIME. omeprazole (PRILOSEC) 20 mg capsule Take 1 capsule by mouth twice daily. finasteride (PROSCAR) 5 mg tablet Take 1 tablet by mouth once daily. LISINOPRIL ORAL Take 40 mg by mouth once daily. (Patient not taking: Reported on 02/04/2023) carvedilol (COREG) 3.125 mg tablet Take 1 tablet by mouth twice daily with meals. ferrous sulfate 325 mg (65 mg iron) tablet Take 1 tablet by mouth daily with breakfast. (Patient not taking: Reported on 02/11/2023) melatonin 10 mg tab Take 5 mg by mouth daily at bedtime. Current Facility-Administered Medications on File Prior to Visit Medication perflutren lipid microspheres 1.3 mL in NaCl (PF) 0.9% 10 mL injection (DEFINITY) sodium chloride 0.9 % (flush) 10 mL (BD POSIFLUSH) Social History Social History Tobacco Use Smoking status: Former Packs/day: .2 Types: Cigarettes Quit date: 06/07/1994 Years since quittin.7 Smokeless tobacco: Never Tobacco comments: quit 10 years ago Substance Use Topics Alcohol use: No Drug use: No Review of Symptoms REVIEW OF SYSTEMS GENERAL: No weight loss, malaise or fevers RESPIRATORY: Negative for cough, hemoptysis, wheezing, COPD, dyspnea or shortness of breath CARDIOVASCULAR: Negative for chest pain, leg swelling, hypertension, CHF or palpitations GI: No nausea, vomiting, or diarrhea SKIN: Negative for lesions, rash, and itching EXAM: BP 100/54 Pulse (!) 58 Temp 37 C (98.6 F) Resp 22 Wt 76.4 kg (168 lb 6.4 oz) SpO2 96% BMI 28.02 kg/m General Appearance: Well appearing, alert, in no acute distress, well-hydrated, well nourished.. Skin: Skin color, texture, turgor normal, no suspicious rashes or lesions. Lungs: Lungs clear to auscultation. No wheezing, rhonchi, rales.. Heart: RRR without murmur, gallop, or rubs. No ectopy. Abdomen: Normal abdominal exam, Abdomen soft, non-tender. Bowel sounds normal. No masses, organomegaly. Extremities: No deformities, edema, skin discoloration, clubbing or cyanosis. Good capillary refill. . Health Maintenance List SHINGRIX VACCINE(2 of 3) due on 08/02/2009 ADVANCE DIRECTIVE DISCUSSION Never done COVID-19 VACCINE(7 - Moderna series) due on 07/17/2022 INFLUENZA(1) due on 02/05/2023 DIABETES SCREEN due on 01/29/2026 DTAP,TDAP,TD(3 - Td or Tdap) due on 09/30/2032 DEPRESSION ASSESSMENT Completed PNEUMOCOCCAL: 65+ Completed Data reviewed Labs from [facility] admission 02/04-02/06. ASSESSMENT/PLAN: 1. Acute cystitis without hematuria - ICD9: 595.0, ICD10: N30.00 (primary diagnosis) Resolved with macrobid. Recommended increasing PO fluid intake and call with recurrent symptoms. 2. Other specified hypotension - ICD9: 458.8, ICD10: I95.89 Improved after discontinuing his beta deondre and lisinopril. Push PO fluids. Monitor BP at home and call if <100/60 or with lightheadedness. 3. Bradycardia - ICD9: 427.89, ICD10: R00.1 Improved off beta deondre. 4. 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 Acute gastric ulcer without hemorrhage or perforation - ICD9: 531.30, ICD10: K25.3 Denies symptoms of recurrent bleeding. Refusing iron supplement and will increase iron in diet. Given information for home on iron rich foods. F/u with GI next week. 7. Iron deficiency anemia, unspecified iron deficiency anemia type - ICD9: 280.9, ICD10: D50.9 See above. 8. Decreased appetite - ICD9: 783.0, ICD10: R63.0 Improved after resolution of UTI symptoms. 9. Depression, unspecified depression type - ICD9: 311, ICD10: F32.A Start on Zoloft 50 mg daily. Refusing counseling. F/u in 1 month. 10. Hospital discharge follow-up - ICD9: V67.59, ICD10: Z09 I spent a total of 40 minutes on the date of the service which included preparing to see the patient, [id number] patient care, completing clinical documentation, obtaining and/or reviewing separately obtained history, performing a medically appropriate examination, counseling and educating the patient/family/caregiver, ordering medications, tests, or procedures, and independently interpreting results (not separately reported). Jordan Johnson MD documented in this encounter [facility] 02-10-2023 Miscellaneous Notes Spoke with Celeste, patient r/s to [address] Johnson. Yoshi Ridley MA This patient is on with Fabby tomorrow for TCM. Is there any way he could go in my 4 and 4:20 slot or could we swap patients at the same time so I can see him instead? documented in this encounter [facility] 09-05-2023 History of Present illness Narrative Reviewed. Spoke with daughter, Celeste, regarding getting patient in for TCM visit this week. She stated she is going to review patient's discharge paperwork 1st then will call back to schedule appointment. Advised her PCP is out next week but Fabby is in. She voiced understanding. TRANSITION CARE MANAGEMENT (TCM) INITIAL CONTACT Public Health Inspector Outreach Provider Action/FYI: Pt is scheduled for apt 02-11-23 Initial contact with patient post discharge, spoke to daughter. Patient identified by name and . TRANSITION CARE MANAGEMENT INITIAL OUTREACH DOCUMENTATION: No flowsheet data found. SUMMARY: -Pt discharged from [facility] on 02/06/23. -Admitted for: Weakness, UTI and bradycardia Do you have a hospital follow up appointment with your PCP? Appointment on 02/11/23 with Fabby Moore CNP. No. Assist patient with follow-up appointment within 1-14 calendar days from discharge date. If patient prefers not to schedule follow-up appointment at this time, notify PCP. MEDICATIONS: Many patients have questions or concerns about their medications once they are home. Were you prescribed any new medications? Yes Were you told to hold any medications? No Were any of your medications discontinued? If yes, what are those medications? Carvedilol and lisinopril Do you have any questions about getting or taking your medications? No Your discharge instructions/After visit Summary (AVS) are important in guiding you through the recovery process. Is there anything I might help you understand? No Do you have all the necessary equipment and supplies at home? Yes Medical records from recent hospitalization: Obtained and given to provider for review. documented in this encounter [facility] 02-04-2023 History of Present illness Narrative Chief Complaint Patient presents with: Hospital Follow Up: Discharged [facility] 02/02/23 Gastric Ulcer & polyp HPI Atif Colón is a 87 year old male who presents here today for Hospital Discharge Follow up. Accompanied today by daughter Sindy. Patient admitted to [facility] from 01/29 to 02/02 for LOKI and decreased PO intake. Creatinine on arrival to the ED was up to 2.5 and improved to 1.21 prior to discharge with IV fluids. Found to have non bleeding gastric ulcer on EGD after complaining of dark stools which was treated with APC during procedure and given Protonix 40 mg BID on discharge. Started on Aricept 5 mg for dementia. Discharged to assisted living at [facility] with . Recommending f/u with our office in [address] weeks [address]Laurent Carey's office in 1 month. Since discharge, he has been taking medications as prescribed without signs of recurrent GI bleed. Noted patient's BP and HR are very low on initial check today. States that he they have been giving him his medications as prescribed. He has not been eating or drinking well. He complains that he has been urinating frequently with, dysuria, incontinence and urgency. Admits to chills without fever, nausea, vomiting, abdominal pain, flank pain. Past medical history, appointments, medications, allergies reviewed. Previous Medical History PAST MEDICAL HISTORY Diagnosis Date Abdominal pain, epigastric BPH (benign prostatic hyperplasia) CKD (chronic kidney disease), stage III (HCC) Dr. Childress DDD (degenerative disc disease), lumbar Elevated PSA GERD (gastroesophageal reflux disease) Hypertension Hyponatremia Iron deficiency anemia Osteoarthritis RLS (restless legs syndrome) Rotator cuff tear arthropathy Seen previously by Dr. Palomino Previous Surgical History PAST SURGICAL HISTORY Procedure Laterality Date CIRCUMCISION EGD TRANSORAL BIOPSY SINGLE/MULTIPLE 10/29/09 minimal irritation LAPAROSCOPY SURG CHOLECYSTECTOMY 10/31/09 Cholecystectomy, lap REPAIR FIRST ABDOMINAL WALL HERNIA 2006 Hernia repair, incisional SHOULDER ARTHROSCOPY/SURG 11/13/2010 Rotator cuff repair and Sub AC decompression right shouldrer Family History FAMILY HISTORY Problem Relation Age of Onset None Mother Alcohol/Drug Father Heart Brother Patient Allergies ALLERGIES Allergen Reactions Aspirin GI Upset Penicillins Rash Current Medications Current Outpatient Medications on File Prior to Visit Medication Sig carvedilol (COREG) 3.125 mg tablet Take 1 tablet by mouth twice daily with meals. ondansetron orally disintegrating (ZOFRAN ODT) 4 mg disintegrating tablet Take 1 tablet by mouth every 8 hours as needed for nausea/vomiting. amLODIPine (NORVASC) 2.5 mg tablet Take 1 tablet by mouth once daily. terazosin (HYTRIN) 5 mg capsule TAKE 1 CAPSULE BY MOUTH DAILY AT BEDTIME. omeprazole (PRILOSEC) 20 mg capsule Take 1 capsule by mouth twice daily. furosemide (LASIX) 40 mg tablet Take 1 tablet by mouth once daily. ferrous sulfate 325 mg (65 mg iron) tablet Take 1 tablet by mouth daily with breakfast. finasteride (PROSCAR) 5 mg tablet Take 1 tablet by mouth once daily. hydrOXYzine pamoate (VISTARIL) 50 mg capsule Take 1 capsule by mouth at bedtime as needed (insomnia). melatonin 10 mg tab Take 5 mg by mouth daily at bedtime. Current Facility-Administered Medications on File Prior to Visit Medication perflutren lipid microspheres 1.3 mL in NaCl (PF) 0.9% 10 mL injection (DEFINITY) sodium chloride 0.9 % (flush) 10 mL (BD POSIFLUSH) Social History Social History Tobacco Use Smoking status: Former Packs/day: .2 Types: Cigarettes Quit date: 06/07/1994 Years since quittin.6 Smokeless tobacco: Never Tobacco comments: quit 10 years ago Substance Use Topics Alcohol use: No Drug use: No Review of Symptoms REVIEW OF SYSTEMS GENERAL: See HPI RESPIRATORY: Negative for cough, hemoptysis, wheezing, COPD, dyspnea or shortness of breath CARDIOVASCULAR: Negative for chest pain, leg swelling, hypertension, CHF or palpitations GI: See HPI SKIN: Negative for lesions, rash, and itching EXAM: BP (!) 82/48 (BP Site: Left Arm, BP Position: Sitting, BP Cuff Size: Regular Adult) Pulse (!) 42 Resp 28 Wt 74.8 kg (165 lb) SpO2 92% BMI 27.46 kg/m General Appearance: Ill appearing with pallor. Sitting in chair with coat on with arms crossed shivering. Skin: Skin color, texture, turgor normal, no suspicious rashes or lesions. Lungs: Lungs clear to auscultation. No wheezing, rhonchi, rales.. Heart: Negative findings: no murmurs, clicks, or gallops, Positive findings: bradycardia with irregular rhythm. Abdomen: Abdomen soft. Bowel sounds normal. No masses, organomegaly, Positive findings: tenderness moderate RLQ and LLQ. Extremities: No deformities, edema, skin discoloration, clubbing or cyanosis. Good capillary refill. . Health Maintenance List SHINGRIX VACCINE(2 of 3) due on 08/02/2009 ADVANCE DIRECTIVE DISCUSSION Never done COVID-19 VACCINE(7 - Moderna series) due on 07/17/2022 INFLUENZA(1) due on 02/05/2023 DIABETES SCREEN due on 01/29/2026 DTAP,TDAP,TD(3 - Td or Tdap) due on 09/30/2032 DEPRESSION ASSESSMENT Completed PNEUMOCOCCAL: 65+ Completed Data reviewed Component Latest Ref Rng & Units 02/04/2023 GLUCOSE UA (POCT) Negative mg/dL Negative BILIRUBIN UA (POCT) Negative Negative KETONE UA (POCT) Negative mg/dL Negative SPECIFIC GRAVITY UA (POCT) 1.005 - 1.030 1.020 HEMOGLOBIN/BLOOD UA (POCT) Negative Moderate (A) PH UA (POCT) 4.5 - 8.0 5.5 PROTEIN UA (POCT) Negative mg/dL 30 (A) UROBILINOGEN UA (POCT) Normal E.U./dL 0.2 NITRITE UA (POCT) Negative Negative LEUKOCYTES UA (POCT) Negative Small (A) COLOR UA (POCT) Yellow CLARITY UA (POCT) Cloudy EKG: sinus rhythm @ 57 bpm with 2nd degree AV Block Mobitz type I, nonspecific ST abnormality. Abnormal EKG. ASSESSMENT/PLAN: 1. Sepsis, due to unspecified organism, unspecified whether acute organ dysfunction present (HCC) - ICD9: 038.9, 995.91, ICD10: A41.9 (primary diagnosis) Patient meeting criteria for sepsis 2/2 suspected UTI which was likely caused by catheter placement during his recent hospitalization. Recommended ER evaluation with daughter and patient and they are agreeable. Offered to call EMS which they are refusing. Daughter would like to take him across the street to [facility]. Report sent Via ER Pass[facility] and patient's EKG, UA results, and AVS sent with him. Will follow up on discharge. 2. Acute cystitis without hematuria - ICD9: 595.0, ICD10: N30.00 See above. 3. Urinary frequency - ICD9: 788.41, ICD10: R35.0 See above - UA DIP, URINE (POC) - URINE CULTURE 4. Bradycardia - ICD9: 427.89, ICD10: R00.1 See above. - ECG COMPLETE - URINE CULTURE 5. Other specified hypotension - ICD9: 458.8, ICD10: I95.89 See above. 6. AV block, Mobitz 1 - ICD9: 426.13, ICD10: I44.1 See above. I spent a total of 45 minutes on the date of the service which included preparing to see the patient, [id number] patient care, completing clinical documentation, obtaining and/or reviewing separately obtained history, performing a medically appropriate examination, counseling and educating the patient/family/caregiver, ordering medications, tests, or procedures, independently interpreting results (not separately reported), and communicating results to the patient/family/caregiver. Jordan Johnson MD documented in this encounter [facility] 02-04-2023 History of Present illness Narrative CDM ENROLLMENT Provider Action / FYI: CDM Contact Made with Patient: Yes The patient was identified by Name and Date of . Discussed Care with: spouse Patient enrolled via: Telephonic Are you experiencing any new or worsening symptoms that you need to talk about today? No Janel Sal RN February 04, 2023 11:04 AM CDM ENROLLMENT Provider Action / FYI: CDM Contact Made with Patient: No, left message. Janel Sal RN February 03, 2023 11:47 AM documented in this encounter [facility] 01-29-2023 Nurse Note Call placed to [facility] to retrieve medical records for when patient was placed there. Forwarded to [facility], message left on [facility] -medical records voicemail with Office fax # for them to send records to. [place] [facility] [place] medical records be sent over before upcoming appointment Wednesday02/01/2023. Cameron Vitale LPN documented in this encounter [facility] 01-29-2023 Instructions Fabby Moore APRN.PHARMACY ANALYST - 01/29/2023 2:12 PM EDT Follow-up next week with Dr. Johnson Hold lasix, amlodipine and iron this weekend documented in this encounter [facility] 01-29-2023 History of Present illness Narrative 01/29/2023 Patient presents with: Nausea: Unable to eat and drink x3 days SUBJECTIVE: This is a 87 year old, accompanied by daughter, that is here today for Above Complaints. Discharged from [facility] last week after being hospitalized for a fall. For the last three days has had an upset stomach and nausea. Admits to a small amount of vomiting the other day. Normal BM two days ago- reports it was dark but this is not unusual since he takes iron. Admits he does feel evelyn dizzy and SOB at times. Hard time sleeping and not much appetite. Admits he has been through a lot the past few weeks with being hospitalized, going to rehab and then moving into assisted living. Admits he does feel some down after going through all this. No recent falls since discharge. Denies fevers, chills, dyspnea, cough, chest pain, palpitations, leg swelling, abdominal pain, diarrhea, or hematochezia Reviewed available paperwork for hospital admission. Do not have any available paperwork to review from [facility] PAST MEDICAL HISTORY Diagnosis Date Abdominal pain, epigastric BPH (benign prostatic hyperplasia) CKD (chronic kidney disease), stage III (HCC) Dr. Childress DDD (degenerative disc disease), lumbar Elevated PSA GERD (gastroesophageal reflux disease) Hypertension Hyponatremia Iron deficiency anemia Osteoarthritis RLS (restless legs syndrome) Rotator cuff tear arthropathy Seen previously by Dr. Palomino ALLERGIES Aspirin and Penicillins MEDICATIONS Current Outpatient Medications Medication Sig carvedilol (COREG) 6.25 mg tablet Take 1 tablet by mouth twice daily with meals. amLODIPine (NORVASC) 2.5 mg tablet Take 1 tablet by mouth once daily. terazosin (HYTRIN) 5 mg capsule TAKE 1 CAPSULE BY MOUTH DAILY AT BEDTIME. omeprazole (PRILOSEC) 20 mg capsule Take 1 capsule by mouth twice daily. furosemide (LASIX) 40 mg tablet Take 1 tablet by mouth once daily. ferrous sulfate 325 mg (65 mg iron) tablet Take 1 tablet by mouth daily with breakfast. lisinopril (ZESTRIL) 40 mg tablet Take 1 tablet by mouth once daily. finasteride (PROSCAR) 5 mg tablet Take 1 tablet by mouth once daily. hydrOXYzine pamoate (VISTARIL) 50 mg capsule Take 1 capsule by mouth at bedtime as needed (insomnia). melatonin 10 mg tab Take 5 mg by mouth daily at bedtime. Current Facility-Administered Medications Medication Dose Route Frequency perflutren lipid microspheres 1.3 mL in NaCl (PF) 0.9% 10 mL injection (DEFINITY) INTRAVENOUS DIRECTED PRN sodium chloride 0.9 % (flush) 10 mL (BD POSIFLUSH) 10 mL INTRAVENOUS DIRECTED PRN Medications and allergies reviewed by this provider. SOCIAL HISTORY Social History Tobacco Use Smoking status: Former Packs/day: .2 Types: Cigarettes Quit date: 06/07/1994 Years since quittin.6 Smokeless tobacco: Never Tobacco comments: quit 10 years ago Substance Use Topics Alcohol use: No Drug use: No REVIEW OF SYSTEMS All other reviewed and negative other than HPI. OBJECTIVE: BP 100/64 Pulse (!) 52 Resp 20 SpO2 99% . Vital signs reviewed by this provider. APPEARANCE Well appearing, alert, in no acute distress, well-hydrated, well nourished. Somewhat anxious EYES PERRLA, conjunctiva and sclera normal. HEART RRR with normal S1 and S2, no murmurs, no gallops, no JVD appreciated LUNG clear to auscultation. No wheezes, rhonchi or rales ABDOMEN bowel sounds normoactive, no bruits, soft, non-tender, non-distended, without organomegaly or palpable masses, no rebound tenderness or guarding EXTREMITIES Extremities normal, No deformities, No skin discoloration, and No edema SKIN Skin color, texture, turgor normal, no suspicious rashes or lesions to exposed skin SHINGRIX VACCINE(2 of 3) due on 08/02/2009 ADVANCE DIRECTIVE DISCUSSION Never done COVID-19 VACCINE(7 - Moderna series) due on 07/17/2022 INFLUENZA(1) due on 02/05/2023 DIABETES SCREEN due on 12/28/2025 DTAP,TDAP,TD(3 - Td or Tdap) due on 09/30/2032 DEPRESSION ASSESSMENT Completed PNEUMOCOCCAL: 65+ Completed ASSESSMENT/PLAN: 1. Nausea - ICD9: 787.02, ICD10: R11.0 (primary diagnosis) - possibly related to anxiety/depression over his move to assisted living. Consider stool burden vs obstruction vs gastric ulcer. Possibly related to taking iron on empty stomach - XR ABDOMEN 1V SUPINE - ONDANSETRON 4 MG DISINTEGRATING TABLET - COMP METABOLIC PANEL - CBC + DIFF - COMP METABOLIC PANEL - hold amlodipine, lasix and iron this - follow-up on Wednesday as scheduled to ER with red flag symptoms 2. Bradycardia - ICD9: 427.89, ICD10: R00.1 - EKG in office similar to one recently - no red flag symptoms or exam findings 3. Decreased appetite - ICD9: 783.0, ICD10: R63.0 - plan as in #1 Fabby Moore APRN.EZ Prescription instructions reviewed with patient as applicable. Patient advised if symptoms do not improve or if symptoms worsen sooner, to contact their primary care physician. Potential red flag symptoms discussed with the patient. Reviewed appropriate action plan to take if red flag symptoms occur. Patient agreeable to treatment plan. I spent a total of 40 minutes on the date of the service which included preparing to see the patient, [id number] patient care, completing clinical documentation, obtaining and/or reviewing separately obtained history, performing a medically appropriate examination, counseling and educating the patient/family/caregiver, and ordering medications, tests, or procedures. documented in this encounter [facility] 01-25-2023 Miscellaneous Notes Forms faxed to [facility]. I have crossed off medications we do not have records for. If I get updated records we may be able to add them back on if he is needing them. Form in outbox. Spoke with Rochelle LE at [facility] and reviewed provider's message with her. She voiced understanding and reports she advised the family some of the medications were only ordered x 7 days (seroquel) and that PCP likely wouldn't just sign for something he didn't order. She is asking if provider can just cross off medications he isn't agreeable with orders for and she can at least get the others ordered for patient. He has several medications on their list that we do not have. It does not look like they were started during his inpatient stay either. Please obtain records from [facility] so we can see what they started him on and at what dosage. nurse Rochelle @ [facility] calling to say she is faxing a med list to PCP office that was sent with patient in transfer from [facility]. She states there are medications on the MAR from [facility] that differ from the med list sent from PCP office (ie. Seroquel) She is asking if PCP can review med list today and let Miriam know which meds he is to continue. Steffanie Nguyễn, RN documented in this encounter [facility] 01-21-2023 Miscellaneous Notes Forms faxed as requested. Called and left a detailed voicemail notifying patient of providers message and that nurse would be faxing forms over to [facility] for them. Hospital phone number was left in case patient had any questions. Vickie Hooks, RN Forms updated and given to nurse to fax. Phoned Sheeal and she stated she will be self administering her medications but would like staff to administer Taylor's. I need to know if he and his will both be administering their own medications. Contacted patient's spouse and detailed message left on her secure VM to advise of provider's message. I will review them this afternoon when I am back in office. Patient Polina calling asking if forms could be signed quickly, wanting to get transferred to [facility] soon please. POC received. Given to Dr. Johnson for completion and signature. Once signed, please fax to [facility] at [phone] ATTN Luis. Yoshi Ridley MA Called Valentina at [facility] in [place], she is going to make sure POC is faxed to Dr Johnson's office. Will await forms. Pts called in and reports [facility] should have send a POC form over to Dr Johnson to fill out. She reports as soon as the provider fills it out and sends it back her and her can go move into [facility]. Please call once forms have been sent back. documented in this encounter [facility] 01-04-2023 Miscellaneous Notes Mailed out as requested Called and left a detailed voicemail notifying patient's of providers message. Hospital phone number was left in case she had any questions. Vickie Hooks RN I can only give 1 order per patient, but they should be able to get 2 placards from [facility] for vehicles. Patient's spouse is requesting x2 handicap placards for both of their vehicles. Please mail to patient's residence, address has been confirmed. documented in this encounter [facility] 01-04-2023 Miscellaneous Notes Spoke with pt , he was discharged from [facility] to [facility] per and he fell. She had to call the squad and he was admitted to [facility] where he is still hospitalized in the rehab dept. Advised to schedule hospital follow up with PCP when he is discharged home. She voiced understanding. Isidra De Paz Ma Images from the original note were not included. Message left for pt to call back. Needs hospital follow up as listed below. Jordan Johnson MD P tr Lesvia Ceron 40 minute hospital f/u in 1 week. documented in this encounter [facility] 12-31-2022 History of Present illness Narrative Patient discharged from [facility] 12/31/22. LM for patient's to contact office to inform. Yoshi Ridley MA Message left for Sheela to call office back for providers message. Cameron Vitale LPN I do not have privileges at [facility] to see patients. Please let me know if they have any concerns. TRANSITION CARE MANAGEMENT (TCM) PHARMACY CONTACT Provider Action/FYI: Medication reconciliation services declined due to patient preference. TCM medication reconciliation incomplete at this time Dr. Johnson -- reports pt fell last night after discharge from [facility], reports her son was unable to get him up so they called 911. Notes paramedics had trouble getting a pulse so pt was admitted to [facility]. asking if PCP is able to see pt at [place] or contact the team there to check on him? Please call directly to review. Initial contact with patient post discharge, spoke to spouse, Polina,, and verified that any applicable caregiver is active in patient's medical care. Patient identified by name and . Summary: -Pt discharged from [facility] on 12/28/22. -Medication review done: Declined at this time per patient preference Patient Concerns: See blue box above. Deferred med rec as pt is currently admitted at an outside hospital. Routing to PCP per spouse's request. History of Present Illness: The following content has been copied and pasted from patient's discharge summary. If discharge summary unavailable, After Visit Summary or last pertinent inpatient notes are copied and pasted. ADMIT DATE: 12/24/2022 DISCHARGE DATE: December 28, 2022 MY DOCTORS AND MEDICAL TEAM: My Main Hospital Doctor: Maddi France DO Primary Care Provider: Jordan Johnson MD My Medical Team Members: Treatment Team: Attending Provider: Maddi France DO Consulting: Vashti Motley MD, PhD Primary Service: SATISH FAUSTIN MY CONDITION AT DISCHARGE: Stable REASON I WAS IN THE HOSPITAL: Fall, N/V SUMMARY OF WHAT HAPPENED WHILE I WAS IN THE HOSPITAL: Patient was admitted for Fall, N/V. This is an 87-year-old male PMH BPH, CKD stage III, HTN, EDUAR who presents for trauma work-up after mechanical fall from [facility].He was assessed by trauma who did not have any indication for further trauma work-up treatment. On CT brain 12/24/2022 at 1420 alleged findings of small area of left thalamic hemorrhage without edema or mass. This was evaluated by neurology ICU recommended repeat CT head and neurosurgical consultation.. Neurosurgery recommending MRI of the brain. He was seen by PT who recommended home physical therapy. An MRI was performed that did not show any acute pathologic etiology. Some changes consistent with aging including volume loss and mild chronic small vessel ischemic changes. This was discussed with the patient's daughter who is his healthcare ocean [employer] representative. 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 Repeat CT shows no evidence of acute intracranial hemorrhage -Follow-up MRI: no acute process: No evidence of an acute intracranial infarction. Volume loss and mild chronic small vessel ischemic changes. No pathologic enhancement. -XR pelvis requested from MRI team to evaluate penile implant- no evidence of implant #HTN -Amlodipine 2.5 mg daily, lisinopril 40mg daily #sinus tachycardia -no clear reason for this at this time -carvedilol 6.25mg bid and op follow up #BPH -Doxazosin 4 mg daily, finasteride 5 mg daily #Hyponatremia Worse with IVF, improved on diuretics -resume furosemide 40mg PO daily -stop NS #HFpEF chronic -Furosemide 40 mg daily #acute delirium ?underlying dementia that is undiagnosed -discharge to home -melatonin -UA negative Medication Reconciliation: Legend: Stopped, New, Changed, Added to list Medication List Medication Directions Comments Action/Plan amLODIPine (NORVASC) 2.5 mg tablet Take 1 tablet by mouth once daily. Per discharge summary: #HTN -Amlodipine 2.5 mg daily, lisinopril 40mg daily carvedilol (COREG) 6.25 mg tablet Take 1 tablet by mouth twice daily with meals. E-rx to [facility] Per discharge summary: #sinus tachycardia -no clear reason for this at this time -carvedilol 6.25mg bid and op follow up ferrous sulfate 325 mg (65 mg iron) tablet Take 1 tablet by mouth daily with breakfast. finasteride (PROSCAR) 5 mg tablet Take 1 tablet by mouth once daily. furosemide (LASIX) 40 mg tablet Take 1 tablet by mouth once daily. Per discharge summary: resume furosemide 40mg PO daily hydrOXYzine pamoate (VISTARIL) 50 mg capsule Take 1 capsule by mouth at bedtime as needed (insomnia). lisinopril (ZESTRIL) 40 mg tablet Take 1 tablet by mouth once daily. melatonin 10 mg tab Take 5 mg by mouth daily at bedtime. omeprazole (PRILOSEC) 20 mg capsule Take 1 capsule by mouth twice daily. promethazine (PHENERGAN) 25 mg tablet Take 1 tablet by mouth every 8 hours as needed for nausea/vomiting for up to 10 days. E-rx to [facility] terazosin (HYTRIN) 5 mg capsule TAKE 1 CAPSULE BY MOUTH DAILY AT BEDTIME. Preferred pharmacy: e- [facility] [address] [place] [address] [address] [facility] - [phone] [address] [facility] [id number] - [facility] [place] [address] [address] [facility] [phone] [address] [facility] [address] Estimated Creatinine Clearance: 43.8 mL/min (based on SCr of 1.17 mg/dL). Estimated Glomerular Filtration Rate (mL/min/1.73m ) Date Value 12/28/2022 61 eGFR- (no units) Date Value 06/12/2021 >60 Additional follow up: Next 5 Appointments Date and Time Provider Department Dept Phone 06/21/2023 1:20 PM Fabby Moore [facility] [phone] Interventions Made: None Pharmacist Recommendations Made None Care Coordination: None at this time Time spent on patient: 15-30 minutes Belia Cohen RPh December 29, 2022 6:55 AM documented in this encounter [facility] 12-28-2022 Note HNO ID: [id number] Author: Maddi France DO Service: Hospital Medicine Author Type: Physician Type: Progress Notes Filed: 01/08/2023 7:27 AM Note Text: Documentation Query Based on your medical judgment of the clinical indicators outlined below, please clarify the condition: (Please type X next to your response and sign) Clinical Indicators: Radiology: 12/24/2022 CT Brain No acute intracranial abnormality... 12/27/2022 MRI Brain No evidence of an acute intracranial infarction.Volume loss and mild chronic small vessel ischemic changes.No pathologic enhancement... 12/24/2022 HANDP Brain bleed, mild, thalamus 2/2 fall - repeat CT brain in am - frequent neuro checks - BP control - NPO for now... NS consult... 12/27/2022 Neurosurgery PN Brain bleed... small left side thalamic hemorrhage... MRI Brain wwo routine to workup underlying etiology... 12/28/[address] brain 12/24/2022 at 1420 alleged findings of small area of left thalamic hemorrhage without edema or mass... MRI was performed that did not show any acute pathologic etiology... 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 Principal problem... brain bleed... resolved problems: Intraparenchymal hemorrhage of brain... Please clarify the status of brain bleed. Brain bleed ruled in x Brain bleed ruled out Other, please specify [facility] 12-28-2022 Note HNO ID: [id number] Author: Jordan Aparicio RPh Service: Pharmacy Author Type: Pharmacist Type: Plan of Care Filed: 12/28/2022 3:32 PM Note Text: DISCHARGE MEDICATION REVIEW BY PHARMACY Patient Name: Atif Colón Account #: Data Unavailable Admission Date: 12/24/2022 Date of Contact: December 28, 2022 Time of Contact: 3:32 PM Medication list was reviewed by a Pharmacist for drug interactions or drug related problems:Yes Below is a summary of pharmacist recommendations discussed with LIP: No Recommendations at this time from Discharge Medication List. Jordan Aparicio RPh December 28, 2022 3:32 PM Pager: [phone] 12/28/2022 3:32 PM Medication List START taking these medications carvedilol 6.25 mg tablet Commonly known as: COREG Take 1 tablet by mouth twice daily with meals. promethazine 25 mg tablet Commonly known as: PHENERGAN Take 1 tablet by mouth every 8 hours as needed for nausea/vomiting for up to 10 days. CONTINUE taking these medications amLODIPine 2.5 mg tablet Commonly known as: NORVASC Take 1 tablet by mouth once daily. ferrous sulfate 325 mg (65 mg iron) tablet Take 1 tablet by mouth daily with breakfast. finasteride 5 mg tablet Commonly known as: PROSCAR Take 1 tablet by mouth once daily. furosemide 40 mg tablet Commonly known as: LASIX Take 1 tablet by mouth once daily. hydrOXYzine pamoate 50 mg capsule Commonly known as: VistariL Take 1 capsule by mouth at bedtime as needed (insomnia). lisinopril 40 mg tablet Commonly known as: ZESTRIL Take 1 tablet by mouth once daily. melatonin 10 mg Tab omeprazole 20 mg capsule Commonly known as: PriLOSEC Take 1 capsule by mouth twice daily. terazosin 5 mg capsule Commonly known as: HYTRIN TAKE 1 CAPSULE BY MOUTH DAILY AT BEDTIME. Where to Get Your Medications These medications were sent to [facility] [address] [place] [address] - [phone] [place] [id number] carvedilol 6.25 mg tablet promethazine 25 mg tablet [facility] 12-28-2022 Note HNO ID: [id number] Author: Maddi France DO Service: Hospital Medicine Author Type: Physician Type: Progress Notes Filed: 12/28/2022 1:34 PM Note Text: HOSPITAL MEDICINE PROGRESS NOTE SERVICE DATE: December 28, 2022 SERVICE TIME: 1:34 PM Hospital Medicine/Primary Attending: Maddi France DO NIGHT AND WEEKEND COVERAGE: After 7pm please page [phone] CHIEF COMPLAINT: Brain bleed (HCC) (POA: Yes) Intraparenchymal hemorrhage of brain (HCC) (POA: Status not on file) Delirium (POA: Yes) Assessment/Plan I reviewed: Most recent labs and imaging results. Most recent labs Most recent imaging Most recent EKG This is an 87-year-old male PMH BPH, CKD stage III, HTN, EDUAR who presents for trauma work-up after mechanical fall from [facility].He was assessed by trauma who did not have any indication for further trauma work-up treatment. On CT brain 12/24/2022 at 1420 alleged findings of small area of left thalamic hemorrhage without edema or mass. This was evaluated by neurology ICU recommended repeat CT head and neurosurgical consultation.. Neurosurgery recommending MRI of the brain. He was seen by PT who recommended home physical therapy. An MRI was performed that did not show any acute pathologic etiology. Some changes consistent with aging including volume loss and mild chronic small vessel ischemic changes. This was discussed with the patient's daughter who is his healthcare ocean [employer] representative. 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 Repeat CT shows no evidence of acute intracranial hemorrhage -Follow-up MRI: no acute process: No evidence of an acute intracranial infarction. Volume loss and mild chronic small vessel ischemic changes. No pathologic enhancement. -XR pelvis requested from MRI team to evaluate penile implant- no evidence of implant #HTN -Amlodipine 2.5 mg daily, lisinopril 40mg daily #sinus tachycardia -no clear reason for this at this time -carvedilol 6.25mg bid and op follow up #BPH -Doxazosin 4 mg daily, finasteride 5 mg daily #Hyponatremia Worse with IVF, improved on diuretics -resume furosemide 40mg PO daily -stop NS #HFpEF chronic -Furosemide 40 mg daily #acute delirium ?underlying dementia that is undiagnosed -discharge to home -melatonin -UA negative SUBJECTIVE: Pt seen and examined. Patient denies CP, SOB, fevers, chills, nausea, or emesis. OBJECTIVE: PHYSICAL EXAM: BP 130/68 Pulse 61 Temp (Src) 98.1 (Oral) Resp 18 Ht 5' 5 (1.65m) Wt 166 lb 7.2 oz (75.5kg) SpO2 94% BMI 27.70 kg/(m2). O2 Therapy: Room Air Physical Exam Vitals and nursing note reviewed. Constitutional: General: He is not in acute distress. Eyes: General: Right eye: No discharge. Left eye: No discharge. Pulmonary: Effort: No respiratory distress. Abdominal: General: There is no distension. Tenderness: There is no guarding. Musculoskeletal: General: No swelling. Skin: Coloration: Skin is not jaundiced. Neurological: Mental Status: He is alert. Mental status is at baseline. Psychiatric: Mood and Affect: Mood normal. MEDICATIONS: Current Facility-Administered Medications Medication Dose Route Frequency lidocaine 4 % 1 Patch (SALONPAS) 1 Patch TRANSDERMAL DAILY AT 9 PM And lidocaine patch - REMOVE OTHER DAILY And lidocaine - VERIFY PATCH OTHER q 8 H lisinopril 40 mg tab(s) (ZESTRIL) 40 mg ORAL DAILY finasteride 5 mg tab(s) (PROSCAR) 5 mg ORAL DAILY amLODIPine 2.5 mg tab(s) (NORVASC) 2.5 mg ORAL DAILY ferrous sulfate 325 mg tab(s) 325 mg ORAL DAILY WITH BREAKFAST NaCl 0.9% iv flush bag 20 mL INTRAVENOUS PRN doxazosin 4 mg tab(s) (CARDURA) 4 mg ORAL DAILY pantoprazole DR 20 mg tab(s) (PROTONIX) 20 mg ORAL BID AC (0600/1600) carvedilol 12.5 mg tab(s) (COREG) 12.5 mg ORAL BID w MEALS QUEtiapine 12.5 mg tab(s) (SEROquel) 12.5 mg ORAL AT BEDTIME melatonin 3 mg tab(s) 3 mg ORAL DAILY (7 PM) furosemide 40 mg tab(s) (LASIX) 40 mg ORAL DAILY haloperidol lactate 2.5 mg short-acting injection (HALDOL) 2.5 mg INTRAVENOUS q 6 H PRN ondansetron (PF) 4 mg injection (ZOFRAN) 4 mg INTRAVENOUS q 6 H PRN acetaminophen 1,000 mg tab(s) (TYLENOL) 1,000 mg ORAL q 6 H PRN promethazine 25 mg tab(s) (PHENERGAN) 25 mg ORAL q 6 H PRN ondansetron 8 mg tab(s) (ZOFRAN) 8 mg ORAL q 6 H PRN prochlorperazine 10 mg injection (COMPAZINE) 10 mg INTRAVENOUS q 6 H PRN potassium chloride ER 20 mEq tab(s) (KLOR-CON) 20 mEq ORAL BID DATA: Diagnostic tests reviewed for today's visit: CBC: No results for input(s): WBC , RBC , HB , HCT , PLT , MCV , MCH , MPV , RDW in the las (more content not included)... [facility] 12-27-2022 Note HNO ID: [id number] Author: Maddi France DO Service: Hospital Medicine Author Type: Physician Type: Progress Notes Filed: 12/27/2022 1:27 PM Note Text: HOSPITAL MEDICINE PROGRESS NOTE SERVICE DATE: December 27, 2022 SERVICE TIME: 1:27 PM Hospital Medicine/Primary Attending: Maddi France, NIGHT AND WEEKEND COVERAGE: After 7pm please page [phone] CHIEF COMPLAINT: Brain bleed (HCC) (POA: Yes) Intraparenchymal hemorrhage of brain (HCC) (POA: Status not on file) Delirium (POA: Yes) Assessment/Plan I reviewed: Most recent labs and imaging results. Most recent labs Most recent imaging Most recent EKG This is an 87-year-old male PMH BPH, CKD stage III, HTN, EDUAR who presents for trauma work-up after mechanical fall from [facility].He was assessed by trauma who did not have any indication for further trauma work-up treatment. On CT brain 12/24/2022 at 1420 alleged findings of small area of left thalamic hemorrhage without edema or mass. This was evaluated by neurology ICU recommended repeat CT head and neurosurgical consultation.. Neurosurgery recommending MRI of the brain. 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 Repeat CT shows no evidence of acute intracranial hemorrhage -Follow-up MRI pending but on sched for today -XR pelvis requested from MRI team to evaluate penile implant- no evidence of implant #HTN -Amlodipine 2.5 mg daily, lisinopril 40mg daily #sinus tachycardia -no clear reason for this at this time -carvedilol 12.5mg bid and titrate #BPH -Doxazosin 4 mg daily, finasteride 5 mg daily #Hyponatremia Worse with IVF -resume furosemide 40mg PO daily -stop NS #HFpEF chronic -Furosemide 40 mg daily #acute delirium ?underlying dementia that is undiagnosed -patient violent with caregivers overnight. -quetiapine 12.5mg x3 days -melatonin -haldol for severe agitation -delir protocol -check UA SUBJECTIVE: Pt seen and examined. Patient denies CP, SOB, fevers, chills, nausea, or emesis. OBJECTIVE: PHYSICAL EXAM: BP 152/66 Pulse 60 Temp (Src) 97.9 (Oral) Resp 16 Ht 5' 5 (1.65m) Wt 175 lb 7.8 oz (79.6kg) SpO2 96% BMI 29.20 kg/(m2). O2 Therapy: Room Air Physical Exam Vitals and nursing note reviewed. Constitutional: General: He is not in acute distress. Eyes: General: Right eye: No discharge. Left eye: No discharge. Pulmonary: Effort: No respiratory distress. Abdominal: General: There is no distension. Tenderness: There is no guarding. Musculoskeletal: General: No swelling. Skin: Coloration: Skin is not jaundiced. Neurological: Mental Status: He is alert. Mental status is at baseline. Psychiatric: Mood and Affect: Mood normal. MEDICATIONS: Current Facility-Administered Medications Medication Dose Route Frequency lidocaine 4 % 1 Patch (SALONPAS) 1 Patch TRANSDERMAL DAILY AT 9 PM And lidocaine patch - REMOVE OTHER DAILY And lidocaine - VERIFY PATCH OTHER q 8 H lisinopril 40 mg tab(s) (ZESTRIL) 40 mg ORAL DAILY finasteride 5 mg tab(s) (PROSCAR) 5 mg ORAL DAILY amLODIPine 2.5 mg tab(s) (NORVASC) 2.5 mg ORAL DAILY ferrous sulfate 325 mg tab(s) 325 mg ORAL DAILY WITH BREAKFAST NaCl 0.9% iv flush bag 20 mL INTRAVENOUS PRN doxazosin 4 mg tab(s) (CARDURA) 4 mg ORAL DAILY pantoprazole DR 20 mg tab(s) (PROTONIX) 20 mg ORAL BID AC (0600/1600) carvedilol 12.5 mg tab(s) (COREG) 12.5 mg ORAL BID w MEALS QUEtiapine 12.5 mg tab(s) (SEROquel) 12.5 mg ORAL AT BEDTIME melatonin 3 mg tab(s) 3 mg ORAL DAILY (7 PM) furosemide 40 mg tab(s) (LASIX) 40 mg ORAL DAILY haloperidol lactate 2.5 mg short-acting injection (HALDOL) 2.5 mg INTRAVENOUS q 6 H PRN ondansetron (PF) 4 mg injection (ZOFRAN) 4 mg INTRAVENOUS q 6 H PRN acetaminophen 1,000 mg tab(s) (TYLENOL) 1,000 mg ORAL q 6 H PRN promethazine 25 mg tab(s) (PHENERGAN) 25 mg ORAL q 6 H PRN ondansetron 8 mg tab(s) (ZOFRAN) 8 mg ORAL q 6 H PRN prochlorperazine 10 mg injection (COMPAZINE) 10 mg INTRAVENOUS q 6 H PRN DATA: Diagnostic tests reviewed for today's visit: CBC: No results for input(s): WBC , RBC , HB , HCT , PLT , MCV , MCH , MPV , RDW in the last 24 hours. Coags: No results for input(s): PT , INR , APTT in the last 24 hours. BMP: Recent Labs 12/27/22 0549 NA 135* K 3.4* CHLOR 98 CO2 24 BUN 20 CREAT 1.20 GLUC 103* CMP: Recent Labs 12/27/22 0549 NA 135* K 3.4* CHLOR 98 CO2 24 BUN 20 CREAT 1.20 GLUC 103* CA 9.4 ANION 13 Cardiac Enzymes: No results for input(s): CK , MB , CKMB , TROPT in the last 24 hours. Liver Function, Amylase, Lipase: No results for input(s): TPROT , ALB (more content not included)... [facility] 12-27-2022 Note HNO ID: [id number] Author: Annabella Zepeda PA-C Service: Neurosurgery Author Type: Physician Disassembler Product Type: Progress Notes Filed: 12/27/2022 11:11 AM Note Text: Neurosurgery Progress Note SERVICE DATE: 12/27/2022 SUBJECTIVE: Patient seen and examined this afternoon. Denies headaches, N/V, changes in vision or speech, changes in motor or sensory function. OBJECTIVE: Vitals: Temp (24hrs), Av.7 ?C (98 ?F), Min:36.6 ?C (97.9 ?F), Max:36.8 ?C (98.2 ?F) BP 162/80 Pulse 68 Temp 36.7 ?C (98.1 ?F) (Oral) Resp 18 Ht 165.1 cm (5' 5 ) Wt 79.6 kg (175 lb 7.8 oz) SpO2 95% BMI 29.20 kg/m? O2 Therapy: Room Air IANDO: Date 12/26/22 07 - 12/27/22 0659 12/27/22 07 - 12/28/22 0659 Shift 7632-2023 7519-7941 4351-7546 24 Hour Total 5842-0874 1334-7737 1373-2714 24 Hour Total INTAKE PO 250 250 PO 250 250 Shift Total 250 250 OUTPUT Shift Total Weight (kg) 79.6 79.6 79.6 79.6 79.6 79.6 79.6 79.6 Medications: Current Facility-Administered Medications Medication Dose Route Frequency carvedilol 12.5 mg tab(s) (COREG) 12.5 mg ORAL BID w MEALS QUEtiapine 12.5 mg tab(s) (SEROquel) 12.5 mg ORAL AT BEDTIME melatonin 3 mg tab(s) 3 mg ORAL DAILY (7 PM) furosemide 40 mg tab(s) (LASIX) 40 mg ORAL DAILY haloperidol lactate 2.5 mg short-acting injection (HALDOL) 2.5 mg INTRAVENOUS q 6 H PRN ondansetron (PF) 4 mg injection (ZOFRAN) 4 mg INTRAVENOUS q 6 H PRN acetaminophen 1,000 mg tab(s) (TYLENOL) 1,000 mg ORAL q 6 H PRN promethazine 25 mg tab(s) (PHENERGAN) 25 mg ORAL q 6 H PRN ondansetron 8 mg tab(s) (ZOFRAN) 8 mg ORAL q 6 H PRN prochlorperazine 10 mg injection (COMPAZINE) 10 mg INTRAVENOUS q 6 H PRN lisinopril 40 mg tab(s) (ZESTRIL) 40 mg ORAL DAILY finasteride 5 mg tab(s) (PROSCAR) 5 mg ORAL DAILY amLODIPine 2.5 mg tab(s) (NORVASC) 2.5 mg ORAL DAILY ferrous sulfate 325 mg tab(s) 325 mg ORAL DAILY WITH BREAKFAST NaCl 0.9% iv flush bag 20 mL INTRAVENOUS PRN doxazosin 4 mg tab(s) (CARDURA) 4 mg ORAL DAILY pantoprazole DR 20 mg tab(s) (PROTONIX) 20 mg ORAL BID AC (0600/1600) lidocaine 4 % 1 Patch (SALONPAS) 1 Patch TRANSDERMAL DAILY AT 9 PM And lidocaine patch - REMOVE OTHER DAILY And lidocaine - VERIFY PATCH OTHER q 8 H Labs: Recent Labs 12/27/22 0549 12/26/22 0558 12/25/22 0655 NA 135* 128* 133* K 3.4* -- 3.9 CHLOR 98 97 99 CO2 24 18* 20* BUN 20 16 18 CREAT 1.20 0.92 1.05 GLUC 103* 115* 86 ANION 13 13 14 CA 9.4 8.9 9.7 WBC -- -- 8.02 HB -- -- 12.2* HCT -- -- 36.4* PLT -- -- 271 Exam: GENERAL: No distress, Alert, pleasant mood NEURO: oriented x 3, EOMI, makes eye contact, speech is fluent and clear, CN II-XII grossly intact. Strength 5/5 in BUE and BLE. No sensory deficits HEENT: face symmetric, normocephalic LUNGS: Unlabored breathing CARDIAC: Regular rate and rhythm as above EXTREMITIES: SWARTZ, No deformities, No edema ASSESSMENT AND PLAN: Active Hospital Problems Diagnosis Date Noted Brain bleed (HCC) 12/24/2022 Delirium 12/26/2022 Intraparenchymal hemorrhage of brain (HCC) 12/24/2022 Atif Colón is a 87 year old male who presents after syncopal fall onto toilet with small left side thalamic hemorrhage - Neuro as above - MRI Brain wwo routine to workup underlying etiology- scheduled for 2:15pm - suspect intermittent drowsiness and confusion to be hospital related delirium. Patient is on delirium protocol. Encourage regular sleep-wake cycle. Encourage Uninterrupted sleep at night. Consider geriatrics c/s - will continue to follow pending MRI Portions of text from this note were copied. All relevant information was reviewed and updated accordingly on 12/27/2022 SIGNATURE: Annabella Zepeda PA-C PATIENT NAME: Atif Colón DATE: December 27, 2022 TIME: 11:06 AM Pager: [phone] [facility] 12-27-2022 Note HNO ID: [id number] Author: Annabella Zepeda PA-C Service: Neurosurgery Author Type: Physician Disassembler Product Type: Plan of Care Filed: 12/27/2022 11:06 AM Note Text: Updated patient's daughter Sindy via phone. [facility] 12-27-2022 Miscellaneous Notes Jordan Johnson MD Please advise if you are agreeable to signing and following for HHC services? Our Clinicians will be sending the Plan of Care to you for review and approval. They will reach out for any appropriate orders required to provide home care services for the patient. We are not able to initiate HHC services without a following provider. Home care clinicians may also obtain orders from [facility] Virtualist Providers Thank you and we would be happy to answer any questions. Chinyere Schwartz LPN 12/27/2022 8:49 AM documented in this encounter [facility] 12-26-2022 Note HNO ID: [id number] Author: Maddi France DO Service: Hospital Medicine Author Type: Physician Type: Progress Notes Filed: 12/26/2022 1:39 PM Note Text: HOSPITAL MEDICINE PROGRESS NOTE SERVICE DATE: December 26, 2022 SERVICE TIME: 1:32 PM Hospital Medicine/Primary Attending: Maddi France DO NIGHT AND WEEKEND COVERAGE: After 7pm please page [phone] CHIEF COMPLAINT: Brain bleed (HCC) (POA: Yes) Intraparenchymal hemorrhage of brain (HCC) (POA: Status not on file) Delirium (POA: Yes) Assessment/Plan I reviewed: Most recent labs and imaging results. Most recent labs Most recent imaging Most recent EKG This is an 87-year-old male PMH BPH, CKD stage III, HTN, EDUAR who presents for trauma work-up after mechanical fall from [facility].He was assessed by trauma who did not have any indication for further trauma work-up treatment. On CT brain 12/24/2022 at 1420 alleged findings of small area of left thalamic hemorrhage without edema or mass. This was evaluated by neurology ICU recommended repeat CT head and neurosurgical consultation.. Neurosurgery recommending MRI of the brain. 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 Repeat CT shows no evidence of acute intracranial hemorrhage -Follow-up MRI -XR pelvis requested from MRI team to evaluate penile implant. I questioned the patient about it: he seemed confused about having an implant and was not sure if he had one or not #HTN -Amlodipine 2.5 mg daily, lisinopril 40mg daily #sinus tachycardia -no clear reason for this at this time -carvedilol 12.5mg bid and titrate #BPH -Doxazosin 4 mg daily, finasteride 5 mg daily #Hyponatremia Worse with IVF -resume furosemide 40mg PO daily -stop NS #HFpEF -Furosemide 40 mg daily #acute delirium -patient violent with caregivers overnight. -quetiapine 12.5mg x3 days -melatonin -haldol for severe agitation -delir protocol SUBJECTIVE: Pt seen and examined. Patient denies CP, SOB, fevers, chills, nausea, or emesis. OBJECTIVE: PHYSICAL EXAM: BP 162/66 Pulse 65 Temp (Src) 99 (Oral) Resp 18 Ht 5' 5 (1.65m) Wt 175 lb 7.8 oz (79.6kg) SpO2 97% BMI 29.20 kg/(m2). O2 Therapy: Room Air Physical Exam Vitals and nursing note reviewed. Constitutional: General: He is not in acute distress. Eyes: General: Right eye: No discharge. Left eye: No discharge. Pulmonary: Effort: No respiratory distress. Abdominal: General: There is no distension. Tenderness: There is no guarding. Musculoskeletal: General: No swelling. Skin: Coloration: Skin is not jaundiced. Neurological: Mental Status: He is alert. Mental status is at baseline. Psychiatric: Mood and Affect: Mood normal. MEDICATIONS: Current Facility-Administered Medications Medication Dose Route Frequency lidocaine 4 % 1 Patch (SALONPAS) 1 Patch TRANSDERMAL DAILY AT 9 PM And lidocaine patch - REMOVE OTHER DAILY And lidocaine - VERIFY PATCH OTHER q 8 H lisinopril 40 mg tab(s) (ZESTRIL) 40 mg ORAL DAILY finasteride 5 mg tab(s) (PROSCAR) 5 mg ORAL DAILY amLODIPine 2.5 mg tab(s) (NORVASC) 2.5 mg ORAL DAILY ferrous sulfate 325 mg tab(s) 325 mg ORAL DAILY WITH BREAKFAST NaCl 0.9% iv flush bag 20 mL INTRAVENOUS PRN doxazosin 4 mg tab(s) (CARDURA) 4 mg ORAL DAILY pantoprazole DR 20 mg tab(s) (PROTONIX) 20 mg ORAL BID AC (0600/1600) morphine 2 mg injection 2 mg INTRAVENOUS q 4 H PRN prochlorperazine 10 mg injection (COMPAZINE) 10 mg INTRAVENOUS q 6 H PRN ondansetron (PF) 4 mg injection (ZOFRAN) 4 mg INTRAVENOUS q 6 H PRN carvedilol 12.5 mg tab(s) (COREG) 12.5 mg ORAL BID w MEALS QUEtiapine 12.5 mg tab(s) (SEROquel) 12.5 mg ORAL AT BEDTIME haloperidol lactate 2.5 mg short-acting injection (HALDOL) 2.5 mg INTRAVENOUS q 15 MIN PRN melatonin 3 mg tab(s) 3 mg ORAL DAILY (7 PM) furosemide 40 mg tab(s) (LASIX) 40 mg ORAL DAILY DATA: Diagnostic tests reviewed for today's visit: CBC: No results for input(s): WBC , RBC , HB , HCT , PLT , MCV , MCH , MPV , RDW in the last 24 hours. Coags: No results for input(s): PT , INR , APTT in the last 24 hours. BMP: Recent Labs 12/26/22 0558 NA 128* CHLOR 97 CO2 18* BUN 16 CREAT 0.92 GLUC 115* CMP: Recent Labs 12/26/22 0558 NA 128* CHLOR 97 CO2 18* BUN 16 CREAT 0.92 GLUC 115* CA 8.9 ANION 13 Cardiac Enzymes: No results for input(s): CK , MB , CKMB , TROPT in the last 24 hours. Liver Function, Amylase, Lipase: No results for input(s): TPROT , ALB , ALT , AST , ALKPHOS , TBILI , AMYLASE , LIPASE , LACTATE in the last 24 hours. MG/PHOS: No results for input(s): MG , P in the (more content not included)... [facility] 12-26-2022 Note HNO ID: [id number] Author: Romain Gasca APRN.PHARMACY ANALYST Service: Neurosurgery Author Type: Nurse Practitioner Type: Plan of Care Filed: 12/26/2022 12:25 AM Note Text: Neurosurgery Plan of Care: Contacted by RN around 11:00pm. The patient who was admitted with possible ICH vs Cavernoma had worsened nausea and vomiting and was reported to have a mental status change becoming more agitated and removing his IV and no longer alert and oriented x 3. Stat CT brain was ordered, initial image does not show any worsening of his abnormality. Plan: - IV zofran q 6 hrs added to anti-emetics, QT- interval 334 -Fluids restarted -Non-contrast brain CT ordered. -Reviewed imaging: CT scan negative for concerning pathology. -Will continue to follow the patient for the MRI results. Romain Gasca APRN.[facility] Neurosurgery Pager: [phone] Neurosurgery Pager: [phone] December 26, 2022 12:05 AM [facility] 12-25-2022 Note HNO ID: [id number] Author: Maddi France DO Service: Hospital Medicine Author Type: Physician Type: Progress Notes Filed: 12/25/2022 4:25 PM Note Text: HOSPITAL MEDICINE PROGRESS NOTE SERVICE DATE: December 25, 2022 SERVICE TIME: 4:24 PM Hospital Medicine/Primary Attending: Maddi France DO NIGHT AND WEEKEND COVERAGE: After 7pm please page [phone] CHIEF COMPLAINT: Brain bleed (HCC) (POA: Yes) Intraparenchymal hemorrhage of brain (HCC) (POA: Status not on file) Assessment/Plan I reviewed: Most recent labs and imaging results. Most recent labs Most recent imaging Most recent EKG This is an 87-year-old male PMH BPH, CKD stage III, HTN, EDUAR who presents for trauma work-up after mechanical fall from [facility].He was assessed by trauma who did not have any indication for further trauma work-up treatment. On CT brain 12/24/2022 at 1420 alleged findings of small area of left thalamic hemorrhage without edema or mass. This was evaluated by neurology ICU recommended repeat CT head and neurosurgical consultation.. Neurosurgery recommending MRI of the brain. 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 Repeat CT shows no evidence of acute intracranial hemorrhage -Follow-up MRI #HTN -Amlodipine 2.5 mg daily, lisinopril 40mg daily #BPH -Doxazosin 4 mg daily, finasteride 5 mg daily #Hyponatremia Improving Hold IVF #HFpEF -ctn Furosemide 40 mg daily SUBJECTIVE: Pt seen and examined. Patient denies CP, SOB, fevers, chills, nausea, or emesis. OBJECTIVE: PHYSICAL EXAM: BP 150/93 Pulse 112 Temp (Src) 97.7 (Oral) Resp 19 Ht 5' 5 (1.65m) Wt 175 lb 7.8 oz (79.6kg) SpO2 97% BMI 29.20 kg/(m2). O2 Therapy: Room Air Physical Exam Vitals and nursing note reviewed. Constitutional: General: He is not in acute distress. Eyes: General: Right eye: No discharge. Left eye: No discharge. Pulmonary: Effort: No respiratory distress. Abdominal: General: There is no distension. Tenderness: There is no guarding. Musculoskeletal: General: No swelling. Skin: Coloration: Skin is not jaundiced. Neurological: Mental Status: He is alert. Mental status is at baseline. Psychiatric: Mood and Affect: Mood normal. MEDICATIONS: Current Facility-Administered Medications Medication Dose Route Frequency iv contrast (radiology procedure) INTRAVENOUS DIRECTED PRN lidocaine 4 % 1 Patch (SALONPAS) 1 Patch TRANSDERMAL DAILY AT 9 PM And lidocaine patch - REMOVE OTHER DAILY And lidocaine - VERIFY PATCH OTHER q 8 H lisinopril 40 mg tab(s) (ZESTRIL) 40 mg ORAL DAILY finasteride 5 mg tab(s) (PROSCAR) 5 mg ORAL DAILY amLODIPine 2.5 mg tab(s) (NORVASC) 2.5 mg ORAL DAILY ferrous sulfate 325 mg tab(s) 325 mg ORAL DAILY WITH BREAKFAST furosemide 40 mg tab(s) (LASIX) 40 mg ORAL DAILY NaCl 0.9% iv flush bag 20 mL INTRAVENOUS PRN doxazosin 4 mg tab(s) (CARDURA) 4 mg ORAL DAILY pantoprazole DR 20 mg tab(s) (PROTONIX) 20 mg ORAL BID AC (0600/1600) morphine 2 mg injection 2 mg INTRAVENOUS q 4 H PRN prochlorperazine 10 mg injection (COMPAZINE) 10 mg INTRAVENOUS q 6 H PRN DATA: Diagnostic tests reviewed for today's visit: CBC: Recent Labs 12/25/22 0655 WBC 8.02 RBC 3.66* HB 12.2* HCT 36.4* PLT 271 MCV 99.5 MCH 33.3 MPV 9.3 Coags: No results for input(s): PT , INR , APTT in the last 24 hours. BMP: Recent Labs 12/25/22 0655 NA 133* K 3.9 CHLOR 99 CO2 20* BUN 18 CREAT 1.05 GLUC 86 CMP: Recent Labs 12/25/22 0655 NA 133* K 3.9 CHLOR 99 CO2 20* BUN 18 CREAT 1.05 GLUC 86 CA 9.7 ANION 14 Cardiac Enzymes: No results for input(s): CK , MB , CKMB , TROPT in the last 24 hours. Liver Function, Amylase, Lipase: No results for input(s): TPROT , ALB , ALT , AST , ALKPHOS , TBILI , AMYLASE , LIPASE , LACTATE in the last 24 hours. MG/PHOS: No results for input(s): MG , P in the last 24 hours. Renal Panel: Recent Labs 12/25/22 0655 CREAT 1.05 BUN 18 GLUC 86 CA 9.7 CHLOR 99 K 3.9 CO2 20* NA 133* Heme: No results for input(s): RETICP , ABSRETIC , LD , JOSE , FE , TIBC , TRANSFERSAT in the last 24 hours. Albumin/Creat Ratio (mg/g) Date Value 06/10/2017 Not calculated Medication and Non-Pharmacologic VTE Prophylaxis/Anticoagulants Lines, Drains, and Airways Line Duration Peripheral 12/24/22 Left Forearm 20 Gauge 1 day Reviewed lines and needs to be continued: REASONS: Intravenous fluids and Intravenous antibiotics Disposition: To be determined Functional Status Prior to Admit: Medical Necessity for Continued Hospitalization y Plan of care discussed wit (more content not included)... [facility] 12-25-2022 Note HNO ID: [id number] Author: Annabella Zepeda PA-C Service: Neurosurgery Author Type: Physician Disassembler Product Type: Progress Notes Filed: 12/25/2022 3:46 PM Note Text: Neurosurgery Progress Note SERVICE DATE: 12/25/2022 SUBJECTIVE: Patient seen and examined this afternoon. Denies headaches, N/V, changes in vision or speech, changes in motor or sensory function. OBJECTIVE: Vitals: Temp (24hrs), Av.7 ?C (98.1 ?F), Min:36.4 ?C (97.5 ?F), Max:37.1 ?C (98.7 ?F) BP 150/93 Pulse 112 Temp 36.5 ?C (97.7 ?F) (Oral) Resp 19 Ht 165.1 cm (5' 5 ) Wt 79.6 kg (175 lb 7.8 oz) SpO2 97% BMI 29.20 kg/m? O2 Therapy: Room Air IANDO: Medications: Current Facility-Administered Medications Medication Dose Route Frequency lisinopril 40 mg tab(s) (ZESTRIL) 40 mg ORAL DAILY finasteride 5 mg tab(s) (PROSCAR) 5 mg ORAL DAILY amLODIPine 2.5 mg tab(s) (NORVASC) 2.5 mg ORAL DAILY ferrous sulfate 325 mg tab(s) 325 mg ORAL DAILY WITH BREAKFAST furosemide 40 mg tab(s) (LASIX) 40 mg ORAL DAILY NaCl 0.9% iv flush bag 20 mL INTRAVENOUS PRN NaCl 0.9% iv infusion 75 mL/hr INTRAVENOUS CONTINUOUS doxazosin 4 mg tab(s) (CARDURA) 4 mg ORAL DAILY pantoprazole DR 20 mg tab(s) (PROTONIX) 20 mg ORAL BID AC (0600/1600) morphine 2 mg injection 2 mg INTRAVENOUS q 4 H PRN prochlorperazine 10 mg injection (COMPAZINE) 10 mg INTRAVENOUS q 6 H PRN iv contrast (radiology procedure) INTRAVENOUS DIRECTED PRN lidocaine 4 % 1 Patch (SALONPAS) 1 Patch TRANSDERMAL DAILY AT 9 PM And lidocaine patch - REMOVE OTHER DAILY And lidocaine - VERIFY PATCH OTHER q 8 H Labs: Recent Labs 12/25/22 0655 NA 133* K 3.9 CHLOR 99 CO2 20* BUN 18 CREAT 1.05 GLUC 86 ANION 14 CA 9.7 WBC 8.02 HB 12.2* HCT 36.4* PLT 271 Exam: GENERAL: No distress, Alert, pleasant mood NEURO: oriented x 3, EOMI, makes eye contact, speech is fluent and clear, CN II-XII grossly intact. Strength 5/5 in BUE and BLE. No sensory deficits HEENT: face symmetric, normocephalic LUNGS: Unlabored breathing CARDIAC: Regular rate and rhythm as above EXTREMITIES: SWARTZ, No deformities, No edema Active Hospital Problems Diagnosis Date Noted Brain bleed (HCC) 12/24/2022 Intraparenchymal hemorrhage of brain (HCC) 12/24/2022 Atif Colón is a 87 year old male who presents after syncopal fall onto toilet with small left side thalamic hemorrhage - Neuro as above - MRI Brain wwo routine to workup underlying etiology - will continue to follow pending MRI Portions of text from this note were copied. All relevant information was reviewed and updated accordingly on 12/25/2022 SIGNATURE: Annabella Zepeda PA-C PATIENT NAME: Atif Colón DATE: December 25, 2022 TIME: 3:45 PM Pager: [phone] [facility] 12-25-2022 Note HNO ID: [id number] Author: Jaja Maloney RN Service: Care Management Author Type: Registered Nurse Type: Care Mgt Initial Assessment Filed: 12/25/2022 3:16 PM Note Text: CARE MANAGEMENT: ASSESSMENT AND DISCHARGE PLAN SERVICE DATE: December 25, 2022 SERVICE TIME: 3:13 PM PCP: Jordan Johnson MD Primary Contact: Extended Emergency Contact Information Primary Emergency Contact: EldonPolina Address: [address] [place] [id number] Mobile Relation: Spouse Secondary Emergency Contact: Celeste Hernandez [facility] Mobile Relation: Daughter Admission Status: Observation Insurance Provider: [employer] MEDICARE PPO Discharge Planning requested by: Per Department Practice Potential Transition Plans Home Care Advance Directives Current Advance Directive: Health Care Power of Hogshead Weigher In Chart: Yes Up To Date and Valid: Yes Current Living Arrangements and Support Lives with: Spouse/significant other Type of Residence: Private Residence (Apartment or Condo) Does the patient have to climb stairs at home?: No Support: Family members, Spouse/significant other, Children How do you manage to accomplish the following: Independent: Ambulation;Bathe/Shower;Dress;Meal s/Meal Prep;Going to the bathroom;Medication Management;Transportation to appointments/community Current Services/Equipment Current Post-Acute Service(s): DME Current DME Type: Cane Discharge Planning Patient Goal(s): Better mobility, Increase strength, General wellness, Be able to go home [place] of Choice Explained: [place] of Choice Given: Yes Level of Care Discussed: Home Care Are you interested in bedside delivery of your medications? No Discharge Planning Participant(s): Patient Patient/Family Comments: Caregiver Assessment: Caregiver is ready, willing and able to meet the patient's needs as recommended by the inter-professional team: Yes Name of Caregiver: daughter Transport at Discharge: Transportation Arrangements: Car Needs Prior to Discharge: Needs Prior to Discharge: To Be Determined Post-Acute Discharge Plan: Per chart review, patient is 87 year old male with history of RLS, iron defiency anemia, HTN, GERD, CKD III and BPH who presents to the hospital due to a mechanical fall onto a toilet. Met with patient at bedside; introduced self and CM role. Prior to admission, patient was independent with ADLs. He lives with his . He provides some care to his . His daughter lives close by and helps out occasionally. They are considering moving into an assisted living facility. The patient uses a can for ambulation. The patient has been skilled for home PT at discharge. Referrals placed per request; awaiting responses. CM will continue to follow for medical needs. The patient will be transported home at d/c by daughter or son in law via private auto. SIGNATURE: Jaja Maloney RN PATIENT NAME: Atif Colón DATE: December 25, 2022 TIME: 3:13 PM CONTACT #: [phone] [facility] 12-24-2022 Note HNO ID: [id number] Author: Fanny Nolan PA-C Service: Neurology ICU Author Type: Physician Disassembler Product Type: Plan of Care Filed: 12/24/2022 7:24 PM Note Text: Paged by resident regarding possible ICU admission. Per report and EMR chart review, patient is an 87 year old M with past medical history significant for CKD, GERD, HTN and abdominal pain s/p hernia repair and lap marya who presents as trauma ED to ED transfer from [place] s/p fall yesterday afternoon, sometime after lunch time . Per report, questionable LOC. Does not take any blood thinners. CT brain at 2:20PM today with findings of very small area of left thalamic hemorrhage without associated edema or mass effect. Per ED resident, Dr. Cueva, neuro exam intact. NIH of 0. Discussed above case with attending, Dr. Guillen. Given very small area of hemorrhage, incident/fall >24 hours ago, and intact neuro exam... OK to repeat CTH now for stability and if bleed size unchanged or no acute interval change, patient is stable from neuro standpoint to be admitted for observation on RNF. Fanny Nolan PA-C #[id number] [facility] 12-24-2022 History of Past i llness Narrative Problem Noted Date Diagnosed Date Resolved Date Intraparenchymal hemorrhage of brain 12/24/2022 12/28/2022 Brain bleed 12/24/2022 12/28/2022 Elevated prostate specific antigen (PSA) 11/19/2015 06/12/2021 Rotator cuff (capsule) sprain 03/16/2012 06/21/2012 Rotator cuff tear 09/30/2010 06/23/2011 Hypertension 06/09/2017 Elevated PSA 06/09/2017 documented as of this encounter (statuses as of 12/31/2022) [facility]-20-2023 History of Past illness Narrative* Problem Noted Date Diagnosed Date Resolved Date Intraparenchymal hemorrhage of brain 12/24/2022 12/28/2022 Brain bleed 12/24/2022 12/28/2022 Elevated prostate specific antigen (PSA) 11/19/2015 06/12/2021 Rotator cuff (capsule) sprain 03/16/2012 06/21/2012 Rotator cuff tear 09/30/2010 06/23/2011 Hypertension 06/09/2017 Elevated PSA 06/09/2017 documented as of this encounter (statuses as of 01/04/2023) [facility] History of Past illness Narrative* Problem Noted Date Diagnosed Date Resolved Date Intraparenchymal hemorrhage of brain 12/24/2022 12/28/2022 Brain bleed 12/24/2022 12/28/2022 Elevated prostate specific antigen (PSA) 11/19/2015 06/12/2021 Rotator cuff (capsule) sprain 03/16/2012 06/21/2012 Rotator cuff tear 09/30/2010 06/23/2011 Hypertension 06/09/2017 Elevated PSA 06/09/2017 documented as of this encounter (statuses as of 01/05/2023) [facility] History of Past illness Narrative* Problem Noted Date Diagnosed Date Resolved Date Intraparenchymal hemorrhage of brain 12/24/2022 12/28/2022 Brain bleed 12/24/2022 12/28/2022 Elevated prostate specific antigen (PSA) 11/19/2015 06/12/2021 Rotator cuff (capsule) sprain 03/16/2012 06/21/2012 Rotator cuff tear 09/30/2010 06/23/2011 Hypertension 06/09/2017 Elevated PSA 06/09/2017 documented as of this encounter (statuses as of 01/20/2023) [facility] History of Past illness Narrative* Problem Noted Date Diagnosed Date Resolved Date Intraparenchymal hemorrhage of brain 12/24/2022 12/28/2022 Brain bleed 12/24/2022 12/28/2022 Elevated prostate specific antigen (PSA) 11/19/2015 06/12/2021 Rotator cuff (capsule) sprain 03/16/2012 06/21/2012 Rotator cuff tear 09/30/2010 06/23/2011 Hypertension 06/09/2017 Elevated PSA 06/09/2017 documented as of this encounter (statuses as of 01/22/2023) [facility] History of Past illness Narrative* Problem Noted Date Diagnosed Date Resolved Date Intraparenchymal hemorrhage of brain 12/24/2022 12/28/2022 Brain bleed 12/24/2022 12/28/2022 Elevated prostate specific antigen (PSA) 11/19/2015 06/12/2021 Rotator cuff (capsule) sprain 03/16/2012 06/21/2012 Rotator cuff tear 09/30/2010 06/23/2011 Hypertension 06/09/2017 Elevated PSA 06/09/2017 documented as of this encounter (statuses as of 01/26/2023) [facility] History of Past illness Narrative* Problem Noted Date Diagnosed Date Resolved Date Intraparenchymal hemorrhage of brain 12/24/2022 12/28/2022 Brain bleed 12/24/2022 12/28/2022 Elevated prostate specific antigen (PSA) 11/19/2015 06/12/2021 Rotator cuff (capsule) sprain 03/16/2012 06/21/2012 Rotator cuff tear 09/30/2010 06/23/2011 Hypertension 06/09/2017 Elevated PSA 06/09/2017 documented as of this encounter (statuses as of 02/01/2023) [facility] History of Past illness Narrative* Problem Noted Date Diagnosed Date Resolved Date Intraparenchymal hemorrhage of brain 12/24/2022 12/28/2022 Brain bleed 12/24/2022 12/28/2022 Elevated prostate specific antigen (PSA) 11/19/2015 06/12/2021 Rotator cuff (capsule) sprain 03/16/2012 06/21/2012 Rotator cuff tear 09/30/2010 06/23/2011 Hypertension 06/09/2017 Elevated PSA 06/09/2017 documented as of this encounter (statuses as of 02/04/2023) [facility] History of Past illness Narrative* Problem Noted Date Diagnosed Date Resolved Date Intraparenchymal hemorrhage of brain 12/24/2022 12/28/2022 Brain bleed 12/24/2022 12/28/2022 Elevated prostate specific antigen (PSA) 11/19/2015 06/12/2021 Rotator cuff (capsule) sprain 03/16/2012 06/21/2012 Rotator cuff tear 09/30/2010 06/23/2011 Hypertension 06/09/2017 Elevated PSA 06/09/2017 documented as of this encounter (statuses as of 02/05/2023) [facility] History of Past illness Narrative* Problem Noted Date Diagnosed Date Resolved Date Intraparenchymal hemorrhage of brain 12/24/2022 12/28/2022 Brain bleed 12/24/2022 12/28/2022 Elevated prostate specific antigen (PSA) 11/19/2015 06/12/2021 Rotator cuff (capsule) sprain 03/16/2012 06/21/2012 Rotator cuff tear 09/30/2010 06/23/2011 Hypertension 06/09/2017 Elevated PSA 06/09/2017 documented as of this encounter (statuses as of 02/10/2023) [facility] History of Past illness Narrative* Problem Noted Date Diagnosed Date Resolved Date Intraparenchymal hemorrhage of brain 12/24/2022 12/28/2022 Brain bleed 12/24/2022 12/28/2022 Elevated prostate specific antigen (PSA) 11/19/2015 06/12/2021 Rotator cuff (capsule) sprain 03/16/2012 06/21/2012 Rotator cuff tear 09/30/2010 06/23/2011 Hypertension 06/09/2017 Elevated PSA 06/09/2017 documented as of this encounter (statuses as of 02/13/2023) [facility] History of Past illness Narrative* Problem Noted Date Diagnosed Date Resolved Date Intraparenchymal hemorrhage of brain 12/24/2022 12/28/2022 Brain bleed 12/24/2022 12/28/2022 Elevated prostate specific antigen (PSA) 11/19/2015 06/12/2021 Rotator cuff (capsule) sprain 03/16/2012 06/21/2012 Rotator cuff tear 09/30/2010 06/23/2011 Hypertension 06/09/2017 Elevated PSA 06/09/2017 documented as of this encounter (statuses as of 03/05/2023) [facility] History of Past illness Narrative* Problem Noted Date Diagnosed Date Resolved Date Intraparenchymal hemorrhage of brain 12/24/2022 12/28/2022 Brain bleed 12/24/2022 12/28/2022 Elevated prostate specific antigen (PSA) 11/19/2015 06/12/2021 Rotator cuff (capsule) sprain 03/16/2012 06/21/2012 Rotator cuff tear 09/30/2010 06/23/2011 Hypertension 06/09/2017 Elevated PSA 06/09/2017 documented as of this encounter (statuses as of 03/19/2023) [facility] History of Past illness Narrative* Problem Noted Date Diagnosed Date Resolved Date Intraparenchymal hemorrhage of brain 12/24/2022 12/28/2022 Brain bleed 12/24/2022 12/28/2022 Elevated prostate specific antigen (PSA) 11/19/2015 06/12/2021 Rotator cuff (capsule) sprain 03/16/2012 06/21/2012 Rotator cuff tear 09/30/2010 06/23/2011 Hypertension 06/09/2017 Elevated PSA 06/09/2017 documented as of this encounter (statuses as of 03/28/2023) [facility] History of Past illness Narrative* Problem Noted Date Diagnosed Date Resolved Date Intraparenchymal hemorrhage of brain 12/24/2022 12/28/2022 Brain bleed 12/24/2022 12/28/2022 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 04/04/2023 Elevated prostate specific antigen (PSA) 11/19/2015 06/12/2021 Rotator cuff (capsule) sprain 03/16/2012 06/21/2012 Rotator cuff tear 09/30/2010 06/23/2011 Hypertension 06/09/2017 Elevated PSA 06/09/2017 documented as of this encounter (statuses as of 04/04/2023) [facility] History of Past illness Narrative* Problem Noted Date Diagnosed Date Resolved Date Intraparenchymal hemorrhage of brain 12/24/2022 12/28/2022 Brain bleed 12/24/2022 12/28/2022 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 04/04/2023 Elevated prostate specific antigen (PSA) 11/19/2015 06/12/2021 Rotator cuff (capsule) sprain 03/16/2012 06/21/2012 Rotator cuff tear 09/30/2010 06/23/2011 Hypertension 06/09/2017 Elevated PSA 06/09/2017 documented as of this encounter (statuses as of 04/13/2023) [facility] History of Past illness Narrative* Problem Noted Date Diagnosed Date Resolved Date Intraparenchymal hemorrhage of brain 12/24/2022 12/28/2022 Brain bleed 12/24/2022 12/28/2022 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 04/04/2023 Elevated prostate specific antigen (PSA) 11/19/2015 06/12/2021 Rotator cuff (capsule) sprain 03/16/2012 06/21/2012 Rotator cuff tear 09/30/2010 06/23/2011 Hypertension 06/09/2017 Elevated PSA 06/09/2017 documented as of this encounter (statuses as of 04/19/2023) [facility] History of Past illness Narrative* Problem Noted Date Diagnosed Date Resolved Date Intraparenchymal hemorrhage of brain 12/24/2022 12/28/2022 Brain bleed 12/24/2022 12/28/2022 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 04/04/2023 Elevated prostate specific antigen (PSA) 11/19/2015 06/12/2021 Rotator cuff (capsule) sprain 03/16/2012 06/21/2012 Rotator cuff tear 09/30/2010 06/23/2011 Hypertension 06/09/2017 Elevated PSA 06/09/2017 documented as of this encounter (statuses as of 05/07/2023) [facility] History of Past illness Narrative* Problem Noted Date Diagnosed Date Resolved Date Intraparenchymal hemorrhage of brain 12/24/2022 12/28/2022 Brain bleed 12/24/2022 12/28/2022 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 04/04/2023 Elevated prostate specific antigen (PSA) 11/19/2015 06/12/2021 Rotator cuff (capsule) sprain 03/16/2012 06/21/2012 Rotator cuff tear 09/30/2010 06/23/2011 Hypertension 06/09/2017 Elevated PSA 06/09/2017 documented as of this encounter (statuses as of 05/20/2023) [facility] History of Past illness Narrative* Problem Noted Date Diagnosed Date Resolved Date Intraparenchymal hemorrhage of brain 12/24/2022 12/28/2022 Brain bleed 12/24/2022 12/28/2022 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 04/04/2023 Elevated prostate specific antigen (PSA) 11/19/2015 06/12/2021 Rotator cuff (capsule) sprain 03/16/2012 06/21/2012 Rotator cuff tear 09/30/2010 06/23/2011 Hypertension 06/09/2017 Elevated PSA 06/09/2017 documented as of this encounter (statuses as of 07/11/2023) [facility] History of Past illness Narrative* Problem Noted Date Diagnosed Date Resolved Date Intraparenchymal hemorrhage of brain 12/24/2022 12/28/2022 Brain bleed 12/24/2022 12/28/2022 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 04/04/2023 Elevated prostate specific antigen (PSA) 11/19/2015 06/12/2021 Rotator cuff (capsule) sprain 03/16/2012 06/21/2012 Rotator cuff tear 09/30/2010 06/23/2011 Hypertension 06/09/2017 Elevated PSA 06/09/2017 documented as of this encounter (statuses as of 07/23/2023) [facility] History of Past illness Narrative* Problem Noted Date Diagnosed Date Resolved Date Intraparenchymal hemorrhage of brain 12/24/2022 12/28/2022 Brain bleed 12/24/2022 12/28/2022 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 04/04/2023 Elevated prostate specific antigen (PSA) 11/19/2015 06/12/2021 Rotator cuff (capsule) sprain 03/16/2012 06/21/2012 Rotator cuff tear 09/30/2010 06/23/2011 Hypertension 06/09/2017 Elevated PSA 06/09/2017 documented as of this encounter (statuses as of 07/30/2023) [facility] History of Past illness Narrative* Problem Noted Date Diagnosed Date Resolved Date Intraparenchymal hemorrhage of brain 12/24/2022 12/28/2022 Brain bleed 12/24/2022 12/28/2022 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 Patient complaining of severe 10/10 pain to chest and worse pain when takes deep breath in. Nurse triage completed. Protocol recommends go to ED Now. Patient declines. Patient reports that he willjust go to [facility] for treatment. Again recommended ED but patient declined. Reason for Disposition Followed a chest injury SEVERE chest pain Answer Assessment - Initial Assessment Questions 1. LOCATION: Left chest 2. RADIATION: No 3. ONSET: Yesterday 4. PATTERN: Constant 5. DURATION: Constant 6. SEVERITY: - SEVERE (8-10): excruciating pain, unable to do any normal activities 7. CARDIAC RISK FACTORS: HTN 8. PULMONARY RISK FACTORS:None 9. CAUSE: Fall 10. OTHER SYMPTOMS: No dizziness, nausea, vomiting, sweating, fever, or cough. Severe pain with breathing in. Answer Assessment - Initial Assessment Questions 1. MECHANISM: Fall 2. ONSET: Yesterday 3. LOCATION: Left Chest 4. APPEARANCE: Patient reports bruising to middle of chest 5. BLEEDING: No 6. SEVERITY: Sharp pain with breathing in 7. SIZE: Patient not specific 8. PAIN: Severe 10/10 9. TETANUS: NA Protocols used: Chest [id number], Chest [id number] documented in [facility] History of Present illness Narrative* Caridad Castaneda PA-C - 12/24/2022 1:02 PM EDT Presents with a chief complaint of a fall. Yesterday he had fallen hitting his sternum on the toilet. He had gotten nauseous and then fell forward hitting it square on the side of the toilet. He is having midsternal chest pain rating to the left side of his chest. He did not hit the left side that he knows of. He denies being lightheaded or dizzy. He did have a tooth pulled a couple days ago and that has not been healing very well, which made him nauseated. He has 10 out of 10 midsternal chest pain. Very tender on the sternum with bruising present. Discussed with him concerns for sternal fracture and would recommend that he be seen in the emergency department. The nurse triage had originally recommended the ER but the patient did not listen and came to express care. [facility]. documented in this encounterMer[facility] Miscellaneous Notes* Telephone Encounter - Cameron Vitale LPN - 12/18/2022 1:20 PM EDT Patient notified. Voices understanding. Will be in for recheck and to hop picker stool kit. Cameron Vitale LPN * Telephone Encounter - Fabby Moore APRN.CNP - 12/18/2022 6:48 AM EDT Please call patient and let him know his sodium level is low- which is chronic. Kidney function a little lower than last check- needs to follow-up with cook [employer]- he told me he has appointment in January. Continue to avoid NSAID products, eat low salt diet and stay well hydrated. Alkaline phos elevated but stable. Potassium is mildly elevated. Recommend we recheck in 2 weeks. Hemoglobin lower than last check may be due to chronic kidney disease but recommend we check a stool for occult blood since it has been a year since we last checked. Will place order- will need to come in and get collection kit from lab. The rest of his blood work is in acceptable ranges. Fabby Moore APRN.EZ documented in this encounterMer[facility] Miscellaneous Notes* Telephone Encounter - Lea Collins LPN - 11/25/2022 1:42 PM EDT Patient has been identified by name and date of : Yes Pharmacy phones for refill(s): Requested Prescriptions Pending Prescriptions Disp Refills terazosin (HYTRIN) 5 mg capsule [Pharmacy Med Name: TERAZOSIN HCL 5 MG Capsule] 90 capsule 1 Sig: TAKE 1 CAPSULE BY MOUTH DAILY AT BEDTIME. Date of last office visit in primary care: 10/01/2022 Next appointment scheduled 12/14/2022 Please advise. Thank you. Lea Collins LPN documented in this encounterMer[facility] Miscellaneous Notes* Telephone Encounter - MOLLY Bradley - 11/09/2022 1:41 PM EDT [employer] message sent to patient notifying of providers message below. Number provided to contact office with any questions or concerns. MOLLY Bradley * Telephone Encounter - Jordan Johnson MD - 11/09/2022 11:39 AM EDT Patient requested rx for 90 days on 06/22 and 07/20. Filled on 06/25 and 09/07. Not due for refill until12/07. * Telephone Encounter - Monica Gilmore LPN - 11/09/2022 11:10 AM EDT Patient phones requesting refills as follows: Requested Prescriptions Pending Prescriptions Disp Refills gabapentin (NEURONTIN) 300 mg capsule 90 capsule 0 Sig: Take one capsule at bedtime DOMENICA-10/01/22 Labs-08/06/22 NOV-12/14/22 Please review and advise. Monica Gilmore LPN documented in this encounterMer[facility]06-05-2023 Miscellaneous Notes* Addendum Note - Yoshi Ridley MA - 11/09/2022 1:34 PM EDTAddended by: YOSHI RIDLEY on: 11/09/2022 01:34 PM Modules accepted: Orders * Telephone Encounter - Yoshi Ridley MA - 11/09/2022 1:33 PM EDT Pharmacy updated to [facility]. Yoshi Ridley MA * Addendum Note - Jordan Johnson MD - 11/09/2022 1:28 PM EDTAddended by: JORDAN JOHNSON on: 11/09/2022 01:28 PM Modules accepted: Orders * Telephone Encounter - Jordan Johnson MD - 11/09/2022 1:27 PM EDT Which pharmacy does he want lasix sent to? * Telephone Encounter - Monica Gilmore LPN - 11/09/2022 11:12 AM EDT Patient phones requesting refills as follows: Requested Prescriptions Pending Prescriptions Disp Refills furosemide (LASIX) 40 mg tablet 90 tablet 1 Sig: Take 1 tablet by mouth once daily. DOMENICA-10/01/22 Labs-08/06/22 NOV-12/14/22 Please review and advise. Monica Gilmore LPN documented in this encounterMercy [facility]06-05-2023 Miscellaneous Notes* Telephone Encounter - Yoshi Ridley MA - 11/09/2022 10:03 AM EDT Patient has been identified by name and date of : Yes Requested Prescriptions Pending Prescriptions Disp Refills omeprazole (PRILOSEC) 20 mg capsule 180 capsule 1 Sig: Take 1 capsule by mouth twice daily. RX INSTRUCTIONS: Patient aware RX will be sent to pharmacy. No need to notify patient. Patient last office visit: 10/01/22 Patient next office visit: 12/14/22 Yoshi Ridley MA documented in this encounterMercy [facility]04-27-2023 Instructions* Patient Instructions* Jordan Johnson MD - 10/01/2022 4:24 PM EDT BONE MINERAL DENSITY PATIENT INSTRUCTIONS Bone mineral density testing measures the amount of calcium in certain parts of your bones. This information determines how strong your bones are. The test is used to detect osteoporosis, a disease in which the bone's mineral content and density are low, increasing a person's risk of fractures. Thelumbar spine (lower back) and the hip are the skeletal sites usually examined. For the test, remember that: 1. You cannot take this test if you are . 2. Eat a normal diet on the day of the test. 3. Take your medications as you normally would. 4. DO NOT take calcium supplements (such as Tums) for 24 hours before the test. 5. On the day of the test, leave valuables (jewelry or credit cards) at home. 6. The test should be performed prior to oral, rectal or IV contrast studies, or at least 7 days after any of these studies. For the test, you may be asked to wear a hospital gown. You will lie on your back, on a padded table, in a comfortable position. Generally, you can resume your usual activities immediately. documented in this encounterMercy Health [facility]04-27-2023 History of Present illness Narrative* Jordan Johnson MD - 10/01/2022 4:04 PM EDT Chief Complaint Patient presents with: Follow Up: Fell yesterday and was seen in for various cuts and scrapes. HPI Atif Colón is a 87 year old male who presents here today for Above Complaints.. Accompaniedtoday by his son Taylor Red Evaluated in yesterday with following HPI: Atif Colón is a 87 year old male who presents today for CC of fall today down hill while cutting briars. He has multiple skin tears in his right arm and 2 in left arm. He also is having pain his right upper arm and bruising. Obtained xray of the right humerus which showed signs of remote distal right clavicle fracture which he sustained 6 months ago without dislocation or destructive changes. Otherwise negative for new fx. Wounds irrigated and dressed with mupirocin and discharged home with wound care instructions. Today, he states that his tried to change his dressings this morning, but had some difficulty and will need dressed while here. Has been treating pain from his fall with tylenol which is workingwell for him. Has not had any recurrent falls since yesterday. Patient states that he has been off balance recently. Using his cane with ambulation and feels steady on his feet. Son agrees with this. Would consider PT. Past medical history, appointments, medications, allergies reviewed. Previous Medical History PAST MEDICAL HISTORY Diagnosis Date Abdominal pain, epigastric BPH (benign prostatic hyperplasia) CKD (chronic kidney disease), stage III (HCC) Dr. Childress DDD (degenerative disc disease), lumbar Elevated PSA GERD (gastroesophageal reflux disease) Hypertension Hyponatremia Iron deficiency anemia Osteoarthritis RLS (restless legs syndrome) Rotator cuff tear arthropathy Seen previously by Dr. Palomino Previous Surgical History PAST SURGICAL HISTORY Procedure Laterality Date CIRCUMCISION EGD TRANSORAL BIOPSY SINGLE/MULTIPLE 10/29/09 minimal irritation LAPAROSCOPY SURG CHOLECYSTECTOMY 10/31/09 Cholecystectomy, lap REPAIR FIRST ABDOMINAL WALL HERNIA 2006 Hernia repair, incisional SHOULDER ARTHROSCOPY/SURG 11/13/2010 Rotator cuff repair and Sub AC decompression right shouldrer Family History FAMILY HISTORY Problem Relation Age of Onset None Mother Alcohol/Drug Father Heart Brother Patient Allergies ALLERGIES Allergen Reactions Aspirin GI Upset Penicillins Rash Current Medications Current Outpatient Medications on File Prior to Visit Medication Sig mupirocin (BACTROBAN) 2 % ointment Apply 1 application to affected area three times daily for 10 days. lisinopril (ZESTRIL) 40 mg tablet Take 1 tablet by mouth once daily. amLODIPine (NORVASC) 2.5 mg tablet Take 1 tablet by mouth once daily. terazosin (HYTRIN) 5 mg capsule Take 1 capsule by mouth daily at bedtime. gabapentin (NEURONTIN) 300 mg capsule Take one capsule at bedtime finasteride (PROSCAR) 5 mg tablet Take 1 tablet by mouth once daily. meloxicam (MOBIC) 15 mg tablet Take 15 mg by mouth once daily. omeprazole (PRILOSEC) 20 mg capsule Take 1 capsule by mouth twice daily. ferrous sulfate 325 mg (65 mg iron) tablet Take 1 tablet by mouth daily with breakfast. hydrOXYzine pamoate (VISTARIL) 50 mg capsule Take 1 capsule by mouth at bedtime as needed (insomnia). melatonin 10 mg tab Take 5 mg by mouth daily at bedtime. furosemide (LASIX) 40 mg tablet Take 1 tablet by mouth once daily. Current Facility-Administered Medications on File Prior to Visit Medication perflutren lipid microspheres 1.3 mL in NaCl (PF) 0.9% 10 mL injection (DEFINITY) sodium chloride 0.9 % (flush) 10 mL (BD POSIFLUSH) Social History Social History Tobacco Use Smoking status: Former Packs/day: 0.20 Types: Cigarettes Quit date: 06/07/1994 Years since quittin.3 Smokeless tobacco: Never Tobacco comments: quit 10 years ago Substance Use Topics Alcohol use: No Drug use: No Review of Symptoms REVIEW OF SYSTEMS GENERAL: No weight loss, malaise or fevers MUSCULOSKELETAL: See HPI SKIN: See HPI EXAM: BP 110/56 Pulse 63 Resp 16 SpO2 97% General Appearance: Well appearing, alert, in no acute distress, well-hydrated, well nourished.. Skin: Shallow skin tears on forearms bilaterally without active bleeding or drainage. Musculoskeletal: No joint swelling, deformity, or tenderness. Health Maintenance List SHINGRIX VACCINE(2 of 3) due on 12/12/2007 ADVANCE DIRECTIVE DISCUSSION Never done DTAP,TDAP,TD(1 - Tdap) due on 10/01/2022 DIABETES SCREEN due on 06/15/2025 INFLUENZA Completed DEPRESSION ASSESSMENT Completed COVID-19 VACCINE Completed PNEUMOCOCCAL: 65+ Completed ASSESSMENT/PLAN: 1. Fall in home, subsequent encounter - ICD9: V58.89, E888.9, ICD10: W19.XXXD, Y92.009 (primary diagnosis) No apparent new bony or joint injury on exam today. Discussed treatment of skin tears with abx ointment and wound care. Red flags for re-assessment reviewed with patient in detail. Needs to continue to use cane at home with ambulation and stay off uneven ground for now. Will f/u with PT for fall risk assessment. 2. Multiple skin tears - ICD9: 879.8, ICD10: T14.8XXA See above. 3. At high risk for falls - ICD9: V15.88, ICD10: Z91.81 - CONSULT TO PHYSICAL THERAPY 4. Age-related physical debility - ICD9: 797, ICD10: R54 - CONSULT TO PHYSICAL THERAPY 5. Screening for osteoporosis - ICD9: V82.81, ICD10: Z13.820 - DXA-AXIAL SKELETON 6. Encounter for screening for osteoporosis - ICD9: V82.81, ICD10: Z13.820 Jordan Johnson MD documented in this encounterMer[facility]04-26-2023 Instructions* Patient Instructions* Selene Hauser APRN.CNP - 09/30/2022 6:02 PM EDT Wound Care - Keep the area clean and dry -Clean with soap and water . Apply mupirocin ointment 2 - 3 times a day. -Tylenol or Ibuprofen for discomfort -Observe area for signs of infection: redness, warmth, foul odor, drainage or increase in discomfort. Call you primary care physician if this occurs. -Call your primary care physician's office for a follow up appointment. documented in this encounterMercy [facility]04-26-2023 History of Present illness Narrative* Selene Hauser APRN.CNP - 09/30/2022 5:38 PM EDT Images from the original note were not included. Subjective Trauma Pertinent negatives include no chills, fever, myalgias or rash. JEANNA Colón is a 87 year old male who presents today for CC of fall today down hill while cutting briars. He has multiple skin tears in his right arm and 2 in left arm. He also is having pain his right upper arm and bruising Pulse 62 Temp 36.9 C (98.4 F) Resp 21 Wt 76.6 kg (168 lb 12.8 oz) SpO2 98% BMI 26.44 kg/m Social History Tobacco Use Smoking status: Former Packs/day: 0.20 Types: Cigarettes Quit date: 06/07/1994 Years since quittin.3 Smokeless tobacco: Never Tobacco comments: quit 10 years ago Substance Use Topics Alcohol use: No Drug use: No PAST MEDICAL HISTORY Diagnosis Date Abdominal pain, epigastric BPH (benign prostatic hyperplasia) CKD (chronic kidney disease), stage III (HCC) Dr. Childress DDD (degenerative disc disease), lumbar Elevated PSA GERD (gastroesophageal reflux disease) Hypertension Hyponatremia Iron deficiency anemia Osteoarthritis RLS (restless legs syndrome) Rotator cuff tear arthropathy Seen previously by Dr. Palomino I have confirmed and edited as necessary, the [facility] Review of Systems Constitutional: Negative for chills and fever. HENT: Negative for sinus pain. Musculoskeletal: Negative for joint pain and myalgias. Skin: Negative for itching and rash. Skin tears, bruising All other systems reviewed and are negative. Objective Physical Exam Vitals and nursing note reviewed. Cardiovascular: Pulses: Radial pulses are 2+ on the right side and 2+ on the left side. Pulmonary: Effort: Pulmonary effort is normal. Skin: General: Skin is warm and dry. Findings: Abrasion present. Neurological: Mental Status: He is alert and oriented to person, place, and time. Psychiatric: Mood and Affect: Affect normal. ASSESSMENT/PLAN: 1. Pain in right upper arm - ICD9: 729.5, ICD10: M79.621 (primary diagnosis) No fracture in humerus, no pain in clavicle, fracture from 6 months ago, has full ROM without pain - XR HUMERUS 2V AP/LAT RIGHT RESULT: There is a fracture of the distal right clavicle, which is favored to be subacute or remote. No dislocation or destructive changes. Degenerative changes of the acromioclavicular joint.. Suture anchor in the humeral head. IMPRESSION: Distal right clavicle fracture is favored to be remote or subacute, but is new from 2019. No humerus fracture. Interpreted by : SUPRIYA GONZÁLES MD 2. Fall, initial encounter - ICD9: E888.9, ICD10: W19.XXXA Tylenol as needed for pain - XR HUMERUS 2V AP/LAT RIGHT 3. Abrasion - ICD9: 919.0, ICD10: T14.8XX All wounds irrigated and dressed, mupirocin applied Wound care discussed monitor for sign of infection. - TD VACCINE, AGE 7+ YR, 5 LF TETANUS (TENIVAC) Diagnosis and treatment plan were discussed and questions were answered to the patient's satisfaction. Pt acknowledged understanding of concepts and follow up plan. Specific signs and symptoms that would indicate the need for higher level of care were discussed indetail warranting prompt ER evaluation. Selene Hauser APRN.CNP documented in this encounterMercy [facility]04-10-2023 Miscellaneous Notes* Telephone Encounter - Savannah Bill LPN - 09/14/2022 11:33 AM EDT Last OV: 07/14/22 - Next scheduled appt: 12/14/22 Patient has been identified by name and date of : Yes Requested Prescriptions Pending Prescriptions Disp Refills lisinopril (ZESTRIL) 40 mg tablet 90 tablet 1 Sig: Take 1 tablet by mouth once daily. RX INSTRUCTIONS: Patient aware RX will be sent to pharmacy. No need to notify patient. Savannah Bill LPN documented in this encounterMercy [facility]04-03-2023 Miscellaneous Notes* Telephone Encounter - Yoshi Ridley MA - 09/07/2022 12:25 PM EDT Patient has been identified by name and date of : Yes Requested Prescriptions Pending Prescriptions Disp Refills amLODIPine (NORVASC) 2.5 mg tablet 30 tablet 1 Sig: Take 1 tablet by mouth once daily. RX INSTRUCTIONS: Patient aware RX will be sent to pharmacy. No need to notify patient. Patient last office visit: 07/14/22 Patient next office visit: 12/14/22 Yoshi Ridley MA documented in this [facility]03-02-[facility]23 History of Present illness Narrative* Jacob Hernandez SCAFFOLD SETTER.PHARMACY ANALYST - 08/06/2022 5:14 PM EST Subjective HPI HPI Atif Colón is a 86 year old male who presents today for CC of left ear plugged. This started few days ago. Has tried ear wax removal tool. Symptoms are worsened by nothing. Risk factors wears hearing aids. Denies uri symptoms. .Patient presents with: Earwax: Earwax build up PAST MEDICAL HISTORY Diagnosis Date Abdominal pain, epigastric BPH (benign prostatic hyperplasia) CKD (chronic kidney disease), stage III (HCC) Dr. Childress DDD (degenerative disc disease), lumbar Elevated PSA GERD (gastroesophageal reflux disease) Hypertension Hyponatremia Iron deficiency anemia Osteoarthritis RLS (restless legs syndrome) Rotator cuff tear arthropathy Seen previously by Dr. Palomino PAST SURGICAL HISTORY Procedure Laterality Date CIRCUMCISION EGD TRANSORAL BIOPSY SINGLE/MULTIPLE 10/29/09 minimal irritation LAPAROSCOPY SURG CHOLECYSTECTOMY 10/31/09 Cholecystectomy, lap REPAIR FIRST ABDOMINAL WALL HERNIA 2006 Hernia repair, incisional SHOULDER ARTHROSCOPY/SURG 11/13/2010 Rotator cuff repair and Sub AC decompression right shouldrer ALLERGIES Aspirin and Penicillins MEDICATIONS terazosin (HYTRIN) 5 mg capsule^Take 1 capsule by mouth daily at bedtime.^Disp: 90 capsule^Rfl: 1 gabapentin (NEURONTIN) 300 mg capsule^Take one capsule at bedtime^Disp: 90 capsule^Rfl: 0 amLODIPine (NORVASC) 2.5 mg tablet^Take 1 tablet by mouth once daily.^Disp: 30 tablet^Rfl: 1 finasteride (PROSCAR) 5 mg tablet^Take 1 tablet by mouth once daily.^Disp: 90 tablet^Rfl: 3 meloxicam (MOBIC) 15 mg tablet^Take 15 mg by mouth once daily.^Disp: ^Rfl: lisinopril (ZESTRIL, PRINIVIL) 40 mg tablet^Take 1 tablet by mouth once daily.^Disp: 90 tablet^Rfl:1 furosemide (LASIX) 40 mg tablet^Take 1 tablet by mouth once daily.^Disp: 90 tablet^Rfl: 1 omeprazole (PRILOSEC) 20 mg capsule^Take 1 capsule by mouth twice daily.^Disp: 180 capsule^Rfl: 1 ferrous sulfate 325 mg (65 mg iron) tablet^Take 1 tablet by mouth daily with breakfast.^Disp: 90 tablet^Rfl: 3 hydrOXYzine pamoate (VISTARIL) 50 mg capsule^Take 1 capsule by mouth at bedtime as needed (insomnia).^Disp: 90 capsule^Rfl: 1 melatonin 10 mg tab^Take 5 mg by mouth daily at bedtime. ^Disp: ^Rfl: FAMILY HISTORY Problem Relation Age of Onset None Mother Alcohol/Drug Father Heart Brother Social History Tobacco Use Smoking status: Former Packs/day: 0.20 Types: Cigarettes Quit date: 06/07/1994 Years since quittin.1 Smokeless tobacco: Never Tobacco comments: quit 10 years ago Substance Use Topics Alcohol use: No Drug use: No ROS Objective Blood pressure (!) 100/48, pulse 67, temperature 36.1 C (97 F), resp. rate 21, weight 81.8 kg (180 lb 6.4 oz), SpO2 95 %. Physical Exam Constitutional: General: He is not in acute distress. Appearance: He is not toxic-appearing or diaphoretic. HENT: Head: Normocephalic and atraumatic. Right Ear: Hearing and external ear normal. Left Ear: Hearing and external ear normal. Ears: Comments: Cerumen impaction bilat Procedure: Provider/curette, Nurse/lavage Successful procedure in left ear, after procedure canal clear and TM normal. Right ear impaction not able to be cleared d/t stubborn dry cerumen and ear tenderness. Pulmonary: Effort: Pulmonary effort is normal. No accessory muscle usage or respiratory distress. Neurological: Mental Status: He is alert and oriented to person, place, and time. ASSESSMENT/PLAN: 1. Bilateral impacted cerumen - ICD9: 380.4, ICD10: H61.23 Successful procedure in left, unsuccessful in right Discussed softening right impaction with debrox and f/u for lavage. -also discussed not putting anything in to ear canals other than hearing aids. Jacob Hernandez APRN.EZ * Dia Saab LPN - 08/06/2022 4:57 PM EST Ambulatory Ear Lavage Pre-treatment: Warm water Treatment: Right ear Equipment and Irrigation solution and Volume used: Single use syringe with single use irrigation tip Return flow appearance: Yellow Patient tolerated procedure: yes Post-treatment: Post Irrigation Post-treatment: Ear Canal/Tympanic membrane assessed by DEENA Hernandez. Dia Saab LPN documented in this encounterMercy [facility]02-13-2023 Miscellaneous Notes* Telephone Encounter - Isidra De Paz Ma - 07/20/2022 2:15 PM EST Last office visit: 07/14/22 F/u scheduled: 12/14/22 Isidra De Paz Ma documented [place] [id number] Miscellaneous Notes* Telephone Encounter - Isidra De Paz Ma - 07/20/2022 2:10 PM EST Last office visit: 07/14/22 F/u scheduled: 12/14/22 Isidra De Paz Ma documented in this encounterMercy Health [facility]02-07-2023 Instructions* Patient Instructions* Fabby Moore APRN.CNP - 07/14/2022 1:44 PM EST If developing more areas or areas not healing in the next month notify office documented in this encounterMercy Health [facility]02-07-2023 History of Present illness Narrative* Fabby Moore APRN.CNP - 07/14/2022 1:23 PM EST 07/14/2022 Patient presents with: Derm Problem SUBJECTIVE: This is a 86 year old that is here today for Above Complaints. Saw Dr. Ponce last week for bruised areas to neck. He reports she told him it was bleeding under his skin and did blood work. Patient reports he has not heard anything back about the blood work. He reports Dr. Ponce did not seem to really care. Developed purplish areas to neck and chest about two weeks ago. Reports he was sleeping on his sidethen turned and slept on the other side and thinks maybe his pillow caused this. Has been using steroid cram to area. Denies any recent trauma to area, bruising to other areas of body, bleeding gums,nose bleeds, melana, hematochezia, hematuria or use if NSAID products. PAST MEDICAL HISTORY Diagnosis Date Abdominal pain, epigastric BPH (benign prostatic hyperplasia) CKD (chronic kidney disease), stage III (HCC) Dr. Childress DDD (degenerative disc disease), lumbar Elevated PSA GERD (gastroesophageal reflux disease) Hypertension Hyponatremia Iron deficiency anemia Osteoarthritis RLS (restless legs syndrome) Rotator cuff tear arthropathy Seen previously by Dr. Palomino ALLERGIES Aspirin and Penicillins MEDICATIONS Current Outpatient Medications Medication Sig amLODIPine (NORVASC) 2.5 mg tablet Take 1 tablet by mouth once daily. finasteride (PROSCAR) 5 mg tablet Take 1 tablet by mouth once daily. gabapentin (NEURONTIN) 300 mg capsule Take one capsule at bedtime lisinopril (ZESTRIL, PRINIVIL) 40 mg tablet Take 1 tablet by mouth once daily. furosemide (LASIX) 40 mg tablet Take 1 tablet by mouth once daily. omeprazole (PRILOSEC) 20 mg capsule Take 1 capsule by mouth twice daily. terazosin (HYTRIN) 5 mg capsule Take 1 capsule by mouth daily at bedtime. ferrous sulfate 325 mg (65 mg iron) tablet Take 1 tablet by mouth daily with breakfast. meloxicam (MOBIC) 15 mg tablet Take 15 mg by mouth once daily. hydrOXYzine pamoate (VISTARIL) 50 mg capsule Take 1 capsule by mouth at bedtime as needed (insomnia). aspirin, enteric coated (ASPIRIN, ENTERIC COATED) 81 mg EC tablet Take 81 mg by mouth once daily. Pt reported low dose (Patient not taking: No sig reported) melatonin 10 mg tab Take 5 mg by mouth daily at bedtime. Current Facility-Administered Medications Medication Dose Route Frequency perflutren lipid microspheres 1.3 mL in NaCl (PF) 0.9% 10 mL injection (DEFINITY) INTRAVENOUS DIRECTED PRN sodium chloride 0.9 % (flush) 10 mL (BD POSIFLUSH) 10 mL INTRAVENOUS DIRECTED PRN Medications and allergies reviewed by this provider. SOCIAL HISTORY Social History Tobacco Use Smoking status: Former Packs/day: 0.20 Types: Cigarettes Quit date: 06/07/1994 Years since quittin.1 Smokeless tobacco: Never Tobacco comments: quit 10 years ago Substance Use Topics Alcohol use: No Drug use: No REVIEW OF SYSTEMS All other reviewed and negative other than HPI. OBJECTIVE: BP 122/62 Pulse 80 Resp 16 Wt 77.9 kg (171 lb 12.8 oz) SpO2 94% BMI 26.91 kg/m . Vital signs reviewed by this provider. APPEARANCE Well appearing, alert, in no acute distress, well-hydrated, well nourished. SKIN Approximately 1.5 cm irregular shaped purplish area to right upper chest wall and bilateral portion of the temporal bone. No other ecchymosis to chest wall, back, or extremities. Nail bed WNL SHINGRIX VACCINE(2 of 3) due on 12/12/2007 ADVANCE DIRECTIVE DISCUSSION Never done DTAP,TDAP,TD(1 - Tdap) due on 06/15/2023 DIABETES SCREEN due on 06/15/2025 INFLUENZA Completed DEPRESSION ASSESSMENT Completed COVID-19 VACCINE Completed PNEUMOCOCCAL: 65+ Completed ASSESSMENT/PLAN: 1. Ecchymosis - ICD9: 459.89, ICD10: R58 (primary diagnosis) - recent blood work reviewed without any concerning findings - no red flag symptoms or exam findings - red flag symptoms discussed, verbalizes understanding - discussed with patient not to use steroid cream to areas as this may thin the skin - did have recent cortisone injection to shoulder so possibly related to this - patient to monitor areas for resolution and look for any new areas- will update me if areas do not resolve in 4 weeks or he develops new areas in which case further evaluation would need to be completed - to sign release to obtain records from Dr. Ponce's office Fabby Podlogar, SCAFFOLD SETTER.PHARMACY ANALYST Prescription instructions reviewed with patient as applicable. Patient advised if symptoms do not improve or if symptoms worsen sooner, to contact their primary care physician. Potential red flag symptoms discussed with the patient. Reviewed appropriate action plan to take if red flag symptoms occur. Patient agreeable to treatment plan. I spent a total of 30 minutes on the date of the service which included preparing to see the patient, [id number] patient care, completing clinical documentation, obtaining and/or reviewing separately obtained history, performing a medically appropriate examination, and counseling and educating the patient/family/caregiver. documented in this encounterMercy Health [facility]rb[facility]02-06-2023 Miscellaneous Notes* Telephone Encounter - Isidra De Paz Ma - 07/13/2022 11:15 AM EST Last office visit: 06/15/22 F/u scheduled: 12/14/22 Isidra De Paz Ma documented in this encounterMercy Health [facility]01-16-2023 Miscellaneous Notes* Telephone Encounter - Brennon Pearson Ma - 06/22/2022 3:32 PM EST DOMENICA: 06/15/2022 Last refill: 03/27/2021 QTY: 90 Refills: 3 documented in this encounterMercy Health [facility]01-10-2023 Miscellaneous Notes* Telephone Encounter - Jessy Alas LPN - 06/16/2022 1:49 PM EST Updated patient's of Dr Johnson's response. She reported she would let patient know. * Telephone Encounter - Jordan Johnson MD - 06/16/2022 1:26 PM EST July is a reasonable time frame. * Telephone Encounter - Sera Longo RN - 06/16/2022 11:56 AM EST Pt calling and states he was instructed by Dr. Johnson at recent OV to follow-up with Nephrology. Pt states he called to schedule with a [facility] [employer] and he cannot get an appt sooner than July. Pt asking Dr. Johnson if it is okay that he be seen sometime in July? Pt does not prefer togo outside of [facility]. Please advise patient. Thank you. documented in this encounter[facility] History of Present illness Narrative* Jordan Johnson MD - 06/15/2022 2:08 PM EST Chief Complaint Patient presents with: Follow Up: 6 month HPI Atif Colón is a 86 year old male who presents here today for Above Complaints. Patient planning on following up with Dr. Ling for left shoulder pain. Reviewed OV with Fabby Podlogcandi on 06/11. HTN: Mr. Colón indicates that he is feeling well and denies any symptoms referable to elevated blood pressure. Specifically denies headache, chest pain, palpitations, dyspnea, and peripheral edema. Patient denies any side effects of his medication(s) and is compliant with their regimen. He does check BP's away from this office but cannot recall his readings. Atif denies regular aerobic exercise. He watches his diet for sodium, low fat and low cholesterol some of the time. Last 3 Encounter BP Readings: Date: BP: 06/15/2022 130/60 06/11/2022 136/76 05/14/2022 122/70 CKD stage III/hyponatremia: Patient states that he has not been to see nephrology at [facility] in more than a year. Renal function and sodium level stable. Trying to restrict his fluid intake to about 1 large cup per day. BPH: Patient taking Proscar and terazosin as prescribed without side effects. Denies nocturia >1, weak stream, straining to urinate, hematuria, dysuria. Has not followed up with urology recently. GERD: controlled on PI BID. No LE edema with lasix and compression stockings. PHQ-2 / Depression screen He in the past two weeks denies having felt down, depressed, hopeless or with little interest or pleasure in doing things. Past medical history, appointments, medications, allergies reviewed. Previous Medical History PAST MEDICAL HISTORY Diagnosis Date Abdominal pain, epigastric BPH (benign prostatic hyperplasia) Seeing Dr. Potter CKD (chronic kidney disease), stage III (HCC) Dr. Childress DDD (degenerative disc disease), lumbar Elevated PSA GERD (gastroesophageal reflux disease) Hypertension Iron deficiency anemia Osteoarthritis RLS (restless legs syndrome) Rotator cuff tear arthropathy Seen previously by Dr. Palomino Previous Surgical History PAST SURGICAL HISTORY Procedure Laterality Date CIRCUMCISION EGD TRANSORAL BIOPSY SINGLE/MULTIPLE 10/29/09 minimal irritation LAPAROSCOPY SURG CHOLECYSTECTOMY 10/31/09 Cholecystectomy, lap REPAIR FIRST ABDOMINAL WALL HERNIA 2006 Hernia repair, incisional SHOULDER ARTHROSCOPY/SURG 11/13/2010 Rotator cuff repair and Sub AC decompression right shouldrer Family History FAMILY HISTORY Problem Relation Age of Onset None Mother Alcohol/Drug Father Heart Brother Patient Allergies ALLERGIES Allergen Reactions Aspirin GI Upset Penicillins Rash Current Medications Current Outpatient Medications on File Prior to Visit Medication Sig meloxicam (MOBIC) 15 mg tablet Take 15 mg by mouth once daily. amLODIPine (NORVASC) 2.5 mg tablet Take 1 tablet by mouth once daily. lisinopril (ZESTRIL, PRINIVIL) 40 mg tablet Take 1 tablet by mouth once daily. gabapentin (NEURONTIN) 300 mg capsule Take one capsule at bedtime omeprazole (PRILOSEC) 20 mg capsule Take 1 capsule by mouth twice daily. terazosin (HYTRIN) 5 mg capsule Take 1 capsule by mouth daily at bedtime. ferrous sulfate 325 mg (65 mg iron) tablet Take 1 tablet by mouth daily with breakfast. finasteride (PROSCAR) 5 mg tablet Take 1 tablet by mouth once daily. hydrOXYzine pamoate (VISTARIL) 50 mg capsule Take 1 capsule by mouth at bedtime as needed (insomnia). melatonin 10 mg tab Take 5 mg by mouth daily at bedtime. furosemide (LASIX) 40 mg tablet Take 1 tablet by mouth once daily. aspirin, enteric coated (ASPIRIN, ENTERIC COATED) 81 mg EC tablet Take 81 mg by mouth once daily. Pt reported low dose (Patient not taking: No sig reported) Current Facility-Administered Medications on File Prior to Visit Medication perflutren lipid microspheres 1.3 mL in NaCl (PF) 0.9% 10 mL injection (DEFINITY) sodium chloride 0.9 % (flush) 10 mL (BD POSIFLUSH) Social History Social History Tobacco Use Smoking status: Former Packs/day: 0.20 Types: Cigarettes Quit date: 06/07/1994 Years since quittin.0 Smokeless tobacco: Never Tobacco comments: quit 10 years ago Substance Use Topics Alcohol use: No Drug use: No Review of Symptoms REVIEW OF SYSTEMS GENERAL: No weight loss, malaise or fevers RESPIRATORY: Negative for cough, hemoptysis, wheezing, COPD, dyspnea or shortness of breath CARDIOVASCULAR: Negative for chest pain, leg swelling, hypertension, CHF or palpitations GI: No nausea, vomiting, or diarrhea SKIN: Negative for lesions, rash, and itching EXAM: BP 130/60 Pulse 64 Resp 16 Wt 78.1 kg (172 lb 3.2 oz) SpO2 98% BMI 26.97 kg/m General Appearance: Well appearing, alert, in no acute distress, well-hydrated, well nourished.. Skin: Skin color, texture, turgor normal, no suspicious rashes or lesions. Lungs: Lungs clear to auscultation. No wheezing, rhonchi, rales.. Heart: RRR without murmur, gallop, or rubs. No ectopy. Abdomen: Normal abdominal exam, Abdomen soft, non-tender. Bowel sounds normal. No masses, organomegaly. Extremities: No deformities, edema, skin discoloration, clubbing or cyanosis. Good capillary refill. . Health Maintenance List SHINGRIX VACCINE(2 of 3) due on 12/12/2007 DTAP,TDAP,TD(1 - Tdap) due on 10/13/2014 ADVANCE DIRECTIVE DISCUSSION Never done DEPRESSION ASSESSMENT Never done DIABETES SCREEN due on 04/22/2025 INFLUENZA Completed COVID-19 VACCINE Completed PNEUMOCOCCAL: 65+ Completed Data reviewed Component Latest Ref Rng & Units 12/12/2021 04/15/2022 04/22/2022 WBC 3.70 - 11.00 k/uL 6.37 RBC 4.20 - 6.00 m/uL 3.58 (L) Hemoglobin 13.0 - 17.0 g/dL 11.7 (L) Hematocrit 39.0 - 51.0 % 36.9 (L) MCV 80.0 - 100.0 fL 103.1 (H) MCH 26.0 - 34.0 pg 32.7 MCHC 30.5 - 36.0 g/dL 31.7 RDW-CV 11.5 - 15.0 % 13.7 Platelet Count 150 - 400 k/uL 245 MPV 9.0 - 12.7 fL 12.7 Neut% % 49.0 Abs Neut (ANC) 1.45 - 7.50 k/uL 3.12 Lymph% % 33.1 Abs Lymph 1.00 - 4.00 k/uL 2.11 Lagrange% % 10.8 Abs Lagrange <0.87 k/uL 0.69 Eosin% % 6.3 Abs Eosin <0.46 k/uL 0.40 Baso% % 0.6 Abs Baso <0.11 k/uL 0.04 Immature Gran % % 0.2 IMMATURE GRANS (ABS) <0.10 k/uL <0.03 NRBC /100 WBC 0.0 Absolute nRBC <0.01 k/uL <0.01 DTYPE Auto Protein, Total 6.3 - 8.0 g/dL 7.7 7.1 Albumin 3.9 - 4.9 g/dL 4.1 4.0 Calcium 8.5 - 10.2 mg/dL 9.5 9.2 9.1 Bilirubin, Total 0.2 - 1.3 mg/dL 0.3 0.2 Alkaline Phosphatase 38 - 113 U/L 221 (H) 181 (H) AST 14 - 40 U/L 60 (H) 26 ALT 10 - 54 U/L 61 (H) 21 Glucose 74 - 99 mg/dL 74 81 90 BUN 9 - 24 mg/dL 20 18 19 Creatinine 0.73 - 1.22 mg/dL 1.13 1.07 1.09 Sodium 136 - 144 mmol/L 131 (L) 129 (L) 130 (L) Potassium 3.7 - 5.1 mmol/L 5.1 5.0 4.6 Chloride 97 - 105 mmol/L 96 (L) 95 (L) 95 (L) CO2 22 - 30 mmol/L 24 25 25 Anion Gap 9 - 18 mmol/L 11 9 10 eGFR >=60 mL/min/1.73m 64 68 67 Color Yellow Light Yellow Clarity Clear Clear Glucose, Urine Negative Negative Bilirubin, Urine Negative Negative Ketones, Urine Negative Negative Specific Hedrick, Ur 1.005 - 1.030 1.012 Hemoglobin/Blood,Ur Negative Negative pH, Urine 5.0 - 8.0 6.5 Protein, Urine Negative Negative Urobilinogen Negative Negative Nitrites Negative Negative Leukest Negative Negative WBC, Urine 0-5 /HPF 0-5 /HPF RBC, Urine 0-3 /HPF 0-3 /HPF Iron 41 - 186 ug/dL 72 TIBC 232 - 386 ug/dL 119 (L) Transferrin Saturation 15.0 - 57.0 % 60.5 (H) Ferritin 30.3 - 565.7 ng/mL 325.0 NT Pro BNP <450 pg/mL 726 (H) ASSESSMENT/PLAN: 1. Essential hypertension - ICD9: 401.9, ICD10: I10 (primary diagnosis) - good control - Continue current medication(s) - Encouraged dietary sodium restriction/DASH diet - Recommended regular aerobic exercise. - Reviewed risks of HTN and principles of treatment - Goal of BP <140/90 2. Stage 3a chronic kidney disease (HCC) - ICD9: 585.3, ICD10: N18.31 - eGFR: Stable - Counseled on avoiding regular use of NSAIDs, adequate hydration, potential risk of IV dye - Recommend maintaining blood pressure under 130/80 - Counseled on renal diet (low sodium/low potassium/low phosphorus) - CONSULT TO NEPHROLOGY - COMP METABOLIC PANEL 3. Hyponatremia - ICD9: 276.1, ICD10: E87.1 F/u with nephrology. Previously recommended fluid restriction to 50 oz per day. - CONSULT TO NEPHROLOGY 4. Iron deficiency anemia, unspecified iron deficiency anemia type - ICD9: 280.9, ICD10: D50.9 Recheck. Continue iron supplement. - CBC + DIFF - IRON + TIBC - FERRITIN BLD 5. Gastroesophageal reflux disease, unspecified whether esophagitis present - ICD9: 530.81, ICD10: K21.9 - Continue treatment with Prilosec 20 mg QD 6. Benign prostatic hyperplasia without lower urinary tract symptoms - ICD9: 600.00, ICD10: N40.0 Controlled on Proscar and terazosin. Recheck PSA. 7. High prostate specific antigen (PSA) - ICD9: 790.93, ICD10: R97.20 - PSA/PROSTSPECAG DIAG 8. Osteoarthritis, unspecified osteoarthritis type, unspecified site - ICD9: 715.90, ICD10: M19.90 Stable. 9. Mild cognitive impairment - ICD9: 331.83, ICD10: G31.84 Stable. Jordan Johnson MD documented in [facility] Evaluation note* Diagnosis Essential hypertension- Primary Unspecified essential hypertension Stage 3a chronic kidney disease (HCC) Hyponatremia Hyposmolality and/or hyponatremia Iron deficiency anemia, unspecified iron deficiency anemia type Gastroesophageal reflux disease, unspecified whether esophagitis present Benign prostatic hyperplasia without lower urinary tract symptoms High prostate specific antigen (PSA) Osteoarthritis, unspecified osteoarthritis type, unspecified site Mild cognitive impairment Mild cognitive impairment, so stated documented in this encounter [facility]01[facility] Instructions* Patient Instructions* Fabby Moore APRN.CNP - 06/11/2022 2:26 PM EST Follow-up with orthopedics documented in this encounterMer[facility]01-[facility]-2023 History of Present illness Narrative* Fabby Moore APRN.CNP - 06/11/2022 2:15 PM EST 06/11/2022 Patient presents with: Follow-up Shoulder Pain SUBJECTIVE: This is a 86 year old that is here today for Above Complaints. Has been doing therapy for left shoulder. Pain not improving. Pain located top of shoulder and radiate down into his bicep. Described as aching. Aggravated by certain movements. Uses OTC pain patcheswhich helps some. Takes meloxicam for his right knee pain ordered by Dr. Ling which helps his knee but not his shoulder. Denies past/present injury or surgery, swelling, redness or warmth PAST MEDICAL HISTORY Diagnosis Date Abdominal pain, epigastric BPH (benign prostatic hyperplasia) Seeing Dr. Potter CKD (chronic kidney disease), stage III (HCC) Dr. Childress DDD (degenerative disc disease), lumbar Elevated PSA GERD (gastroesophageal reflux disease) Hypertension Iron deficiency anemia Osteoarthritis RLS (restless legs syndrome) Rotator cuff tear arthropathy Seen previously by Dr. Palomino ALLERGIES Aspirin and Penicillins MEDICATIONS Current Outpatient Medications Medication Sig meloxicam (MOBIC) 15 mg tablet Take 15 mg by mouth once daily. amLODIPine (NORVASC) 2.5 mg tablet Take 1 tablet by mouth once daily. lisinopril (ZESTRIL, PRINIVIL) 40 mg tablet Take 1 tablet by mouth once daily. furosemide (LASIX) 40 mg tablet Take 1 tablet by mouth once daily. gabapentin (NEURONTIN) 300 mg capsule Take one capsule at bedtime omeprazole (PRILOSEC) 20 mg capsule Take 1 capsule by mouth twice daily. terazosin (HYTRIN) 5 mg capsule Take 1 capsule by mouth daily at bedtime. ferrous sulfate 325 mg (65 mg iron) tablet Take 1 tablet by mouth daily with breakfast. finasteride (PROSCAR) 5 mg tablet Take 1 tablet by mouth once daily. hydrOXYzine pamoate (VISTARIL) 50 mg capsule Take 1 capsule by mouth at bedtime as needed (insomnia). melatonin 10 mg tab Take 5 mg by mouth daily at bedtime. aspirin, enteric coated (ASPIRIN, ENTERIC COATED) 81 mg EC tablet Take 81 mg by mouth once daily. Pt reported low dose (Patient not taking: No sig reported) Current Facility-Administered Medications Medication Dose Route Frequency perflutren lipid microspheres 1.3 mL in NaCl (PF) 0.9% 10 mL injection (DEFINITY) INTRAVENOUS DIRECTED PRN sodium chloride 0.9 % (flush) 10 mL (BD POSIFLUSH) 10 mL INTRAVENOUS DIRECTED PRN Medications and allergies reviewed by this provider. SOCIAL HISTORY Social History Tobacco Use Smoking status: Former Packs/day: 0.20 Types: Cigarettes Quit date: 06/07/1994 Years since quittin.0 Smokeless tobacco: Never Tobacco comments: quit 10 years ago Substance Use Topics Alcohol use: No Drug use: No REVIEW OF SYSTEMS All other reviewed and negative other than HPI. OBJECTIVE: BP 136/76 Pulse 62 Resp 16 Wt 80.6 kg (177 lb 9.6 oz) SpO2 98% BMI 27.82 kg/m . Vital signs reviewed by this provider. APPEARANCE Well appearing, alert, in no acute distress, well-hydrated, well nourished. RIGHT SHOULDER: no obvious deformity, erythema, or swelling. Positive NEER's and Da Silva. FROM withsome discomfort and difficult with adduction and internal rotation SHINGRIX VACCINE(2 of 3) due on 12/12/2007 DTAP,TDAP,TD(1 - Tdap) due on 10/13/2014 ADVANCE DIRECTIVE DISCUSSION Never done DEPRESSION ASSESSMENT Never done DIABETES SCREEN due on 04/22/2025 INFLUENZA Completed COVID-19 VACCINE Completed PNEUMOCOCCAL: 65+ Completed ASSESSMENT/PLAN: 1. Left shoulder pain, unspecified chronicity - ICD9: 719.41, ICD10: M25.512 - no red flag symptoms or exam findings - red flag symptoms discussed, verbalizes understanding - patient sees Dr. Ling and would like to see him for this - will have him follow-up with him regarding this, to ER with red flag symptoms Fabby Moore APRN.PHARMACY ANALYST Prescription instructions reviewed with patient as applicable. Patient advised if symptoms do not improve or if symptoms worsen sooner, to contact their primary care physician. Potential red flag symptoms discussed with the patient. Reviewed appropriate action plan to take if red flag symptoms occur. Patient agreeable to treatment plan. I spent a total of 20 minutes on the date of the service which included preparing to see the patient, [id number] patient care, completing clinical documentation, obtaining and/or reviewing separately obtained history, performing a medically appropriate examination, counseling and educating the pat ient/family/caregiver, and ordering medications, tests, or procedures. documented in this encounterMer[facility]12-19-2022 Miscellaneous Notes* Telephone Encounter - Cameron Vitale LPN - 05/25/2022 9:31 AM EST Patient phones requesting refills as follows: Requested Prescriptions Pending Prescriptions Disp Refills amLODIPine (NORVASC) 2.5 mg tablet 30 tablet 1 Sig: Take 1 tablet by mouth once daily. DOMENICA 05/06/2022 NOV 06/15/22 Please review and advise. Cameron Vitael LPN documented in this encounterMer[facility]12-15-2022 History of Present illness Narrative* Jose David Garcia, PT - 05/21/2022 3:39 PM EST Episode Visit Count: 2 Therapist That Will Accept/Oversee The Plan Of Care: Jose David Garcia Start of Care Date: 05/14/22 Onset Date: 04/30/22 Plan of Care Certification Date: 05/14/22 Next Certification Due Date: 06/18/22 Patient Identified by Name and Date of : Yes REHABILITATION AND SPORTS THERAPY PHYSICAL THERAPY TREATMENT NOTE ASSESSMENT: Atif Mary Kate Colón tolerated the session with no issues. He demonstrated difficulty with with shoulder ER form. The patient will continue to benefit from ongoing skilled physical therapy to progress toward set goals. PLAN FOR NEXT VISIT: Progress strengthening as tolerated SUBJECTIVE: Patient Reason for Visit: Not sure if he was doing the exercises correctly. Not sure ifthey are doing any good. Wakes up with pain and pain getting out and into bed. Pain: Pain Pain Level: 0 Pain Location: Shoulder - Left OBJECTIVE MEASURES WITH LEVEL OF FUNCTION: TREATMENT: Therapeutic Exercise: 1: *Seated pulleys scaption x 20 2: Standing shoulder abd YTB 3 x 8 reps 3: Standing shoulder ER YTB 3 x 8 reps 4: *Standing shoulder IR YTB 3 x 8 reps Skilled Intervention: Patient was educated in proper exercise technique and purpose for exercises. Provided written instruction for home exercise program to facilitate proper performance and compliance. Correct performance of therapeutic exercises was facilitated with verbal and visual cuing. Billing Therapeutic Exercise Treatment Minutes: 32 Total Treatment Time Minutes (timed/untimed): 32 Jose David Garcia PT documented in this encounterMer[facility]12-08-2022 Miscellaneous Notes* Telephone Encounter - Benedict Jose RN - 05/14/2022 12:21 PM EST Patient has been identified by name and date of : Yes Patient phones for refill(s): Requested Prescriptions Pending Prescriptions Disp Refills lisinopril (ZESTRIL, PRINIVIL) 40 mg tablet 90 tablet Sig: Take 1 tablet by mouth once daily. furosemide (LASIX) 40 mg tablet 90 tablet Sig: Take 1 tablet by mouth once daily. Patient requesting 90 day supply. Blood pressure readings for today at 10 am: 120/70 HR 60 118/73 HR 98 112/61 HR 67 98/70 HR 98 Denies any heart racing or skipped beats just letting provider know it is still elevated at times. Date of last office visit with pcp: 05/06/2022 Future appt: 06/15/2022 Last 2 Encounter Wt Readings: Date: Wt: 05/06/2022 80.7 kg (178 lb) 04/22/2022 82.3 kg (181 lb 6.4 oz) Previous labs/tests for medication: Blood Pressure: BUN (mg/dL) Date Value 04/22/2022 19 06/12/2021 20 Sodium (mmol/L) Date Value 04/22/2022 130 06/12/2021 132 Last 1 Encounter BP Readings: Date: BP: 05/06/2022 139/73[KALI BP[ Liver Function: ALT (U/L) Date Value 04/15/2022 21 06/12/2021 26 AST (U/L) Date Value 04/15/2022 26 06/12/2021 31 Please advise. Thank you. Benedict Jose RN documented in this encounterMer[facility]12-07-2022 Miscellaneous Notes* Telephone Encounter - Jessy Alas LPN - 05/13/2022 9:20 AM EST Phoned patient and updated that order for PT was placed. * Telephone Encounter - Jordan Johnson MD - 05/12/2022 6:43 PM EST Referral order placed as requested. * Telephone Encounter - Vickie Hooks RN - 05/12/2022 4:22 PM EST Pt called and is notified of providers message and instructions. Pt voices understanding. Pt stateshe would like to have an order for PT. Please call once order is placed. Vickie Hooks RN * Telephone Encounter - Fabby Moore APRN.CNP - 05/12/2022 3:37 PM EST Pulse in normal range so unsure why he had readings like that yesterday. If he gets consistent highreadings he should let us know. If shoulder continue to bother him would recommend PT. Fabby Moore APRN.PHARMACY ANALYST * Telephone Encounter - Gilma Mansfield RN - 05/12/2022 11:43 AM EST Patient calls back and states that yesterday's pulses were 77, 86, and 71. Patient states that he has never had issues with heart racing or heart skipping a beat. Patient wants to let provider know that he is doing his arm exercises. It is still bothering him a little bit but he will continue doing these. Gilma Mansfield RN * Telephone Encounter - Vickie Hooks RN - 05/12/2022 9:15 AM EST Pts called and is notified of providers message. She will have her call back to answerproviders questions. Vickie Hooks RN * Telephone Encounter - Fabby Moore APRN.EZ - 05/11/2022 4:33 PM EST BP readings great. He does not normally run a pulse that high. Does he feel like his heart is beating fast or skipping beats? Fabby Moore APRN.EZ * Telephone Encounter - Benedict Jose RN - 05/11/2022 12:27 PM EST Patient returns calls at this time. Blood pressure readings for today are all around noon and from new equate arm BP cuff: 119/79 pulse 98 115/67 pulse 100 109/72 pulse 98 124/92 pulse 99 Denies palpitations, heart racing, chest pain, SOB, dizziness, light-headed. Previous BP readings were with old cuff and patient had no dizziness or lightheadedness. Patient reports taking both lisinopril and Norvasc with no missed doses. He said he is not certain of HR elevation but doesn't recall that being a concern previously. Benedict Jose RN * Telephone Encounter - Cameron Vitale LPN - 05/11/2022 8:48 AM EST Patient telephoned. Spoke to . States he is asleep at this time and she will have him call office back when he wakes. Cameron Vitale LPN * Telephone Encounter - Fabby Moore APRN.CNP - 05/11/2022 7:39 AM EST Did he buy a new BP cuff? Was he symptomatic with lower BP- dizzy or lightheaded? Fabby Moore APRN.EZ * Telephone Encounter - Gilma Mansfield RN - 05/08/2022 4:29 PM EST Patient calls and states that he took his blood pressure yesterday all around the same time of 10 am. 112/66 64 114/63 62 104/70 59 97/65 62 Please review and advise, Gilma Mansfield RN documented in this encounterMer[facility]11-30-2022 History of Present illness Narrative* Fabby Moore APRN.PHARMACY ANALYST - 05/06/2022 2:44 PM EST 05/06/2022 Patient presents with: Recheck: Blood pressure SUBJECTIVE: This is a 86 year old that is here today for Above Complaints. Added amlodipine at last office BP for BP elevated above goal of <140/90. Taking and tolerating without side effects. Has checked his BP at home the last two days with readings ranging 117-173/60-70's. Denies visual changes, headaches, extremity numbness, tingling, weakness, slurred speech, confusion, facial drooping, SOB, dyspnea or chest pain. Reports left shoulder hs been bothering him for awhile. Described as an ache. Has been putting OTC pain patches which help some. Aggravated by certain movements. Denies past/present injury or surgery, swelling, redness or excessive warmth PAST MEDICAL HISTORY Diagnosis Date Abdominal pain, epigastric BPH (benign prostatic hyperplasia) Seeing Dr. Potter CKD (chronic kidney disease), stage III (HCC) Dr. Childress DDD (degenerative disc disease), lumbar Elevated PSA GERD (gastroesophageal reflux disease) Hypertension Iron deficiency anemia Osteoarthritis RLS (restless legs syndrome) Rotator cuff tear arthropathy Seen previously by Dr. Palomino ALLERGIES Aspirin and Penicillins MEDICATIONS Current Outpatient Medications Medication Sig lisinopril (ZESTRIL, PRINIVIL) 40 mg tablet Take 1 tablet by mouth once daily. amLODIPine (NORVASC) 2.5 mg tablet Take 1 tablet by mouth once daily. furosemide (LASIX) 40 mg tablet Take 1 tablet by mouth once daily. gabapentin (NEURONTIN) 300 mg capsule Take one capsule at bedtime omeprazole (PRILOSEC) 20 mg capsule Take 1 capsule by mouth twice daily. terazosin (HYTRIN) 5 mg capsule Take 1 capsule by mouth daily at bedtime. ferrous sulfate 325 mg (65 mg iron) tablet Take 1 tablet by mouth daily with breakfast. finasteride (PROSCAR) 5 mg tablet Take 1 tablet by mouth once daily. hydrOXYzine pamoate (VISTARIL) 50 mg capsule Take 1 capsule by mouth at bedtime as needed (insomnia). aspirin, enteric coated (ASPIRIN, ENTERIC COATED) 81 mg EC tablet Take 81 mg by mouth once daily. Pt reported low dose (Patient not taking: Reported on 02/03/2022) melatonin 10 mg tab Take 5 mg by mouth daily at bedtime. Current Facility-Administered Medications Medication Dose Route Frequency perflutren lipid microspheres 1.3 mL in NaCl (PF) 0.9% 10 mL injection (DEFINITY) INTRAVENOUS DIRECTED PRN sodium chloride 0.9 % (flush) 10 mL (BD POSIFLUSH) 10 mL INTRAVENOUS DIRECTED PRN Medications and allergies reviewed by this provider. SOCIAL HISTORY Social History Tobacco Use Smoking status: Former Packs/day: 0.20 Types: Cigarettes Quit date: 06/07/1994 Years since quittin.9 Smokeless tobacco: Never Tobacco comments: quit 10 years ago Substance Use Topics Alcohol use: No Drug use: No REVIEW OF SYSTEMS All other reviewed and negative other than HPI. OBJECTIVE: BP 139/73 Pulse 66 Resp 18 Wt 80.7 kg (178 lb) SpO2 97% BMI 27.88 kg/m . Vital signs reviewed by this provider. APPEARANCE Well appearing, alert, in no acute distress, well-hydrated, well nourished. EYES conjunctiva and sclera normal. HEART RRR with normal S1 and S2, no murmurs, no gallops, no JVD appreciated LUNG clear to auscultation EXTREMITIES Extremities normal, No deformities, No skin discoloration, and No edema SKIN Skin color, texture, turgor normal, no suspicious rashes or lesions to exposed skin LEFT SHOULDER: TTP posterior bicep. No obvious deformity, erythema swelling or excessive warmth. FROM. Negative NEER and Da Silva SHINGRIX VACCINE(2 of 3) due on 12/12/2007 DTAP,TDAP,TD(1 - Tdap) due on 10/13/2014 ADVANCE DIRECTIVE DISCUSSION Never done DEPRESSION ASSESSMENT Never done DIABETES SCREEN due on 04/22/2025 INFLUENZA Completed COVID-19 VACCINE Completed PNEUMOCOCCAL: 65+ Completed ASSESSMENT/PLAN: 1. Essential hypertension - ICD9: 401.9, ICD10: I10 (primary diagnosis) - improved control - patient's home cuff not correlating with our cuff, per him it is 20 years old, recommend he get new one. Monitor BP at home and call if majority of readings greater than 140/90 - Continue current medication(s) - Encouraged dietary sodium restriction/DASH diet - Recommended regular aerobic exercise. - Recommend home blood pressure monitoring, to bring results in on next visit - Goal of BP <140/90 - Recommend home or pharmacy blood pressure monitoring - Recommended no refined sugar, low refined starch, healthy oil intake (olive oil), healthy protein(fish) along the lines of the Mediterranean diet. - follow-up with Dr. Johnson in June as scheduled, sooner if needed 2. Acute pain of left shoulder - ICD9: 719.41, ICD10: M25.512 - no red flag symptoms or exam findings - red flag symptoms discussed, verbalizes understanding - continue pain patches. Takes meloxicam for his knee prescribed by ortho so no other NSAID. May take tylenol as directed on packaging - may use heat or ice - handout on stretches strengthening provided for patient - follow-up if symptoms fail to improve, to ER with red flag symptoms Fabby Moore APRN.PHARMACY ANALYST Prescription instructions reviewed with patient as applicable. Patient advised if symptoms do not improve or if symptoms worsen sooner, to contact their primary care physician. Potential red flag symptoms discussed with the patient. Reviewed appropriate action plan to take if red flag symptoms occur. Patient agreeable to treatment plan. I spent a total of 30 minutes on the date of the service which included preparing to see the patient, [id number] patient care, completing clinical documentation, obtaining and/or reviewing separately obtained history, performing a medically appropriate examination, counseling and educating the pat ient/family/caregiver, and ordering medications, tests, or procedures. documented in this encounterMer[facility]11-23-2022 Miscellaneous Notes* Telephone Encounter - Isidra De Paz Ma - 04/29/2022 8:37 AM EST Pt notified and voiced understanding. Isidra De Paz Ma * Telephone Encounter - Sera Longo RN - 04/27/2022 4:09 PM EST Left message for pt to call PCP office for results message-copied below. Sera Longo RN COPIED: Jordan Johnson MD 04/24/2022 11:43 AM EST Low sodium level which has been stable for years. Will continue to monitor. No changes to regimen. documented in this encounterMer[facility]11-15-2022 Miscellaneous Notes* Telephone Encounter - Cameron Rodriguez RN - 04/21/2022 6:59 PM EST PATIENT NOTIFIED OF INFORMATION * Telephone Encounter - Sera Longo RN - 04/21/2022 4:45 PM EST Images from the original note were not included. Left VM message for pt to call PCP office for provider's message, copied below. (COPIED) Jordan Johnson MD P tr Lesvia Ceron Patient's heart is pumping normally with EF 63%. He does have some stiffness of the heart which maybe contributing to his swelling. Mild tricuspid and mitral valve insufficiency which does not require further workup at this time. Continue lasix and compression stockings as prescribed. Keep f/u tomorrow as scheduled Sera Longo RN documented in this encounterMer[facility]11-14-2022 Miscellaneous Notes* Telephone Encounter - Jessy Alas LPN - 04/20/2022 4:42 PM EST Phoned patient and spoke with his Sheela to ask what they would like us to do with RX for compression stockings. She stated she will have him go to medical records to pick it up. RX taken to medical records. * Telephone Encounter - Benedict Jose RN - 04/20/2022 4:13 PM EST Patient called and provider message reviewed. Patient verbalizes understanding. Benedict Jose RN * Telephone Encounter - Jordan Johnson MD - 04/20/2022 3:07 PM EST I would recommend adding on compression stockings daily to help with leg swelling along with continuing lasix 40 mg daily, low sodium diet, and leg elevation. His sodium level was already low and I am concerned increasing lasix further may worsen this. Recommend he come in for BMP tomorrow to review at his OV on 04/22. Needs to keep echo as scheduled. If swelling worsens or he develops new onset SOB, chest pain, palpitations would recommend ER for evaluation instead. * Telephone Encounter - Cameron Vitale LPN - 04/20/2022 1:38 PM EST TC to patient. States the lasix is causing him to urinate more. Patient declines elevating lower extremities, encouraged to try more of that. Agrees to trying. Denies SOB or difficulty while lying flat. Cameron Vitale LPN * Telephone Encounter - Jordan Johnson MD - 04/20/2022 1:24 PM EST Is the lasix causing him to urinate at all on the 40 mg dosage?Any shortness of breath or difficulty breathing while lying flat? * Telephone Encounter - Benedict Jose RN - 04/20/2022 12:05 PM EST Patient called and symptoms reviewed. Patient reports no improvement in his symptoms. Continues to have bilateral swelling to feet and up his ankles not quite to his calves. He reports he is not ableto wear shoes. Reports at end of day feet/legs are painful. Swelling is worse at end of day. Patient elevating legs as much as possible. Denies chest pain, SOB, palpitations. Patient is trying to monitor sodium intake and fluid consumption. Last blood pressure reading was on 04/17/2022 and was 154/73 and HR 56. Patient taking lasix 40 mg daily and lisinopril 40 mg daily. Patient asking if there is anything else he can do? Reports that he is not certain if he can get to his ECHO appointment tomorrow. Explained to patientthat it is very important that he make it to appointment as scheduled as swelling could very well be related to cardiac status. Patient verbalizes understanding and will plan to come for appt. Benedict Jose RN * Telephone Encounter - Bertha Roach - 04/20/2022 11:00 AM EST Patient is requesting a phone call julian. He states he will be leaving soon and needs to speak to clinical. He states medication that he was given to alleviate feet swelling is not working. His feet are swolen and painful. documented in this encounterMer[facility]11-11-2022 Miscellaneous Notes* Telephone Encounter - Aaron Awan RN - 04/17/2022 2:17 PM EST Patient returned call and given provider's message below with verbalized understanding. * Telephone Encounter - Cameron Vitale LPN - 04/17/2022 2:05 PM EST Patient telephoned. Message left to call back for update. Cameron Vitale LPN * Telephone Encounter - Fabby Moore APRN.CNP - 04/17/2022 1:52 PM EST For short term use would be alright. Would continue to monitor kidney function. Fabby Moore APRN.EZ * Telephone Encounter - Gilma Mansfield RN - 04/17/2022 1:44 PM EST Patient calls and states that he has been taking Meloxicam 15 mg daily for his knee pain prescribedby Dr. Ling. Patient asking if this is ok to take due his possible heart issue? Please review and advise, Gilma Mansfield RN documented in this encounterMer[facility]11-11-2022 Miscellaneous Notes* Telephone Encounter - Vickie Hooks RN - 04/17/2022 11:22 AM EST Pt called and is notified of providers results and instructions. Pt voices understanding. Pt put through to scheduling to make ECHO appointment. Vickie Hooks, RN * Telephone Encounter - Jordan Johnson MD - 04/17/2022 8:50 AM EST Patient's BNP is elevated which is a sign of heart failure. Recommend obtaining echo for his recentleg swelling. Continue lasix as prescribed. Sodium level remains low at 129, recommend cutting fluid intake back to 1.5 L daily. Urine studies normal. documented in this encounterMer[facility]11-09-2022 Instructions* Patient Instructions* Jordan Johnson MD - 04/15/2022 2:53 PM EST Take lasix 40 mg daily starting today and through the weekend. Call the office Wednesday with an update on your leg swelling. documented in this encounterMercy [facility]11-09-2022 History of Present illness Narrative* Jordan Johnson MD - 04/15/2022 2:35 PM EST Chief Complaint Patient presents with: Leg Edema JEANNA Colón is a 86 year old male who presents here today for Above Complaints.. Patient states that he developed bilateral leg swelling in the last 4-5 days. Only medication change is new pain medication for his knee through Dr. Ling's office. Thinks this was meloxicam and started this about 2 weeks ago. Has also been drinking 2-3 large cups of water per day up from 1 cup per day for the last 10 days. Started this about 10 days ago. Keeping elevated when resting. Denies chest pain, SOB, palpitations, increased sodium intake. Past medical history, appointments, medications, allergies reviewed. Previous Medical History PAST MEDICAL HISTORY Diagnosis Date Abdominal pain, epigastric BPH (benign prostatic hyperplasia) Seeing Dr. Potter CKD (chronic kidney disease), stage III (HCC) Dr. Childress DDD (degenerative disc disease), lumbar Elevated PSA GERD (gastroesophageal reflux disease) Hypertension Iron deficiency anemia Osteoarthritis RLS (restless legs syndrome) Rotator cuff tear arthropathy Seen previously by Dr. Palomino Previous Surgical History PAST SURGICAL HISTORY Procedure Laterality Date CIRCUMCISION EGD TRANSORAL BIOPSY SINGLE/MULTIPLE 10/29/09 minimal irritation LAPAROSCOPY SURG CHOLECYSTECTOMY 10/31/09 Cholecystectomy, lap REPAIR FIRST ABDOMINAL WALL HERNIA 2006 Hernia repair, incisional SHOULDER ARTHROSCOPY/SURG 11/13/2010 Rotator cuff repair and Sub AC decompression right shouldrer Family History FAMILY HISTORY Problem Relation Age of Onset None Mother Alcohol/Drug Father Heart Brother Patient Allergies ALLERGIES Allergen Reactions Aspirin GI Upset Penicillins Rash Current Medications Current Outpatient Medications on File Prior to Visit Medication Sig gabapentin (NEURONTIN) 300 mg capsule Take one capsule at bedtime omeprazole (PRILOSEC) 20 mg capsule Take 1 capsule by mouth twice daily. terazosin (HYTRIN) 5 mg capsule Take 1 capsule by mouth daily at bedtime. lisinopril (ZESTRIL, PRINIVIL) 40 mg tablet Take 0.5 tablets by mouth once daily. ferrous sulfate 325 mg (65 mg iron) tablet Take 1 tablet by mouth daily with breakfast. finasteride (PROSCAR) 5 mg tablet Take 1 tablet by mouth once daily. hydrOXYzine pamoate (VISTARIL) 50 mg capsule Take 1 capsule by mouth at bedtime as needed (insomnia). melatonin 10 mg tab Take 5 mg by mouth daily at bedtime. lisinopril (ZESTRIL, PRINIVIL) 40 mg tablet Take 0.5 tablets by mouth once daily. aspirin, enteric coated (ASPIRIN, ENTERIC COATED) 81 mg EC tablet Take 81 mg by mouth once daily. Pt reported low dose (Patient not taking: Reported on 02/03/2022) COMPOUNDED PRESCRIPTION Citizen [place] dream cream topical for pain Histamine dihydrichloride 0.025% (Patient not taking: Reported on 04/15/2022) POLYETHYLENE GLYCOL 3350 17 gram/dose ORAL powder 17 g once daily. (Patient not taking: Reported on 04/15/2022) No current facility-administered medications on file prior to visit. Social History Social History Tobacco Use Smoking status: Former Packs/day: 0.20 Types: Cigarettes Quit date: 06/07/1994 Years since quittin.8 Smokeless tobacco: Never Tobacco comments: quit 10 years ago Substance Use Topics Alcohol use: No Drug use: No Review of Symptoms REVIEW OF SYSTEMS See HPI EXAM: BP 162/104 (BP Site: Right Arm) Pulse (!) 54 Resp 22 Wt 84.6 kg (186 lb 6.4 oz) SpO2 98% BMI 29.19 kg/m General Appearance: Well appearing, alert, in no acute distress, well-hydrated, well nourished.. Skin: Skin color, texture, turgor normal, no suspicious rashes or lesions. Lungs: Lungs clear to auscultation. No wheezing, rhonchi, rales.. Heart: RRR without murmur, gallop, or rubs. No ectopy. Abdomen: Normal abdominal exam, Abdomen soft, non-tender. Bowel sounds normal. No masses, organomegaly. Extremities: Edema: 1-2+ edema on dorsum of feet and LE to mid villeda bilaterally. Health Maintenance List SHINGRIX VACCINE(2 of 3) due on 12/12/2007 DTAP,TDAP,TD(1 - Tdap) due on 10/13/2014 ADVANCE DIRECTIVE DISCUSSION Never done DEPRESSION ASSESSMENT Never done DIABETES SCREEN due on 12/16/2024 INFLUENZA Completed COVID-19 VACCINE Completed PNEUMOCOCCAL: 65+ Completed Data reviewed Component Latest Ref Rng & Units 12/16/2021 12/17/2021 Protein, Total 6.3 - 8.0 g/dL 7.4 Albumin 3.9 - 4.9 g/dL 4.1 Calcium 8.5 - 10.2 mg/dL 9.5 Bilirubin, Total 0.2 - 1.3 mg/dL 0.5 Alkaline Phosphatase 38 - 113 U/L 254 (H) AST 14 - 40 U/L 29 ALT 10 - 54 U/L 46 Glucose 74 - 99 mg/dL 91 BUN 9 - 24 mg/dL 16 Creatinine 0.73 - 1.22 mg/dL 1.16 Sodium 136 - 144 mmol/L 130 (L) Potassium 3.7 - 5.1 mmol/L 4.5 Chloride 97 - 105 mmol/L 96 (L) CO2 22 - 30 mmol/L 24 Anion Gap 9 - 18 mmol/L 10 eGFR >=60 mL/min/1.73m 62 Occult Blood, Stool Negative Negative Vitamin B12 232-1,245 pg/mL 983 Folate >4.7 ng/mL >20.0 GGT 10 - 70 U/L 266 (H) ASSESSMENT/PLAN: 1. Bilateral lower extremity edema - ICD9: 782.3, ICD10: R60.0 (primary diagnosis) Reduce fluid intake to 1-1 1/2 large cups of water per day. Start lasix daily through the weekend and call on Wednesday with update on swelling. Obtain labs as ordered to rule out renal dysfunction, CHF, proteinuria. - NT PRO BNP - COMP METABOLIC PANEL - FUROSEMIDE 40 MG TABLET - URINALYSIS, WITH MICROSCOPIC - FUROSEMIDE 40 MG TABLET 2. Essential hypertension - ICD9: 401.9, ICD10: I10 - poor control Take additional 1/2 tablet of lisinopril today and check BP tonight and tomorrow morning. Call withreading >140/90. Recheck in 1 week. Jordan Johnson MD documented in this encounterMer[facility]11-08-2022 Miscellaneous Notes* Telephone Encounter - Fabby Moore APRN.EZ - 04/14/2022 7:57 AM EST PDMP website checked and validated. All prescriptions have been APPROPRIATELY filled. No suspiciousactivity was identified. 04/14/2022 by Fabby Moore APRN.EZ * Telephone Encounter - Cameron Vitale LPN - 04/13/2022 5:23 PM EST Patient phones requesting refills as follows: Requested Prescriptions Pending Prescriptions Disp Refills gabapentin (NEURONTIN) 300 mg capsule 90 capsule 0 Sig: Take one capsule at bedtime DOMENICA 02/03/22 NOV 06/15/22 Please review and advise. Cameron Vitale LPN documented in this encounterMercy Health [facility]09-22-2022 Miscellaneous Notes* Telephone Encounter - Lindy Calderon APRN.CNP - 02/26/2022 8:54 AM EDT Script sent. Lindy Calderon APRN.EZ * Telephone Encounter - Monica Gilmore LPN - 02/26/2022 7:41 AM EDT Patient phones requesting refills as follows: Requested Prescriptions Pending Prescriptions Disp Refills lisinopril (ZESTRIL, PRINIVIL) 40 mg tablet 14 tablet 1 Sig: Take 0.5 tablets by mouth once daily. DOMENICA-02/03/22 Labs-12/17/21 NOV-06/15/21 med filled 12/22/21 Please review and advise. Monica Gilmore LPN documented in this encounterMercy [facility]09-07-2022 Miscellaneous Notes* Telephone Encounter - Brennon Pearson Ma - 02/11/2022 11:33 AM EDT Patient notified, verbalized understanding. Brennon Pearson Ma * Telephone Encounter - Meg Day Cma - 02/10/2022 9:01 AM EDT Left message for patient to return call to office Meg Day Cma * Telephone Encounter - Fabby Moore APRN.CNP - 02/06/2022 8:44 PM EDT Please call patient and let him know some improvement in blood count. Will continue to monitor. Fabby Moore APRN.CNP documented in this encounterMercy [facility]09-07-2022 Miscellaneous Notes* Telephone Encounter - Cameron Vitale LPN - 02/11/2022 9:48 AM EDT Patient telephoned. answered and made aware. Voices understanding. Cameron Vitale LPN * Telephone Encounter - Fabby Moore APRN.CNP - 02/10/2022 7:10 PM EDT I will send in another seven days but he needs to follow-up with ortho regarding this. Fabby Moore APRN.CNP PDMP website checked and validated. All prescriptions have been APPROPRIATELY filled. No suspiciousactivity was identified. 02/10/2022 by Fabby Moore APRN.CNP * Telephone Encounter - Sera Longo RN - 02/10/2022 11:05 AM EDT Patient reports he has a fractured clavicle and was to see Dr. Ling at [facility] today and forgot about the appt and missed it. He states he has not made another appt with them. He states he remains in some pain and is asking for another refill of the Glover that was ordered for him recently-he has one pill left. This nurse encouraged pt to call [facility] and make another appt with them regarding clavicle fracture and he states he will try. Requesting Glover refill, if provider agreeable, to [facility] in [place]. Please call pt with update. Thank you. documented in this encounterMercy Health [facility]08-30-2022 History of Present illness Narrative* Jordan Johnson MD - 02/03/2022 3:32 PM EDT Chief Complaint Patient presents with: Follow Up ER F/U: Right shoulder injury-due to fall HPI Atif Colón is a 86 year old male who presents here today for ER Follow Up.. Patient evaluated at [facility] ED yesterday 02/02 after fall with injury to his right shoulder. Tripped and fell onto concrete. Did not hit head or have LOC. Sustained abrasion to the right knee, but was able to get up on his own. Xrays obtained showed no evidence of humeral fracture, but did note distal clavicle fracture with minimal displacement near the acromion. Given norco in the ED and sling and swath for home. Tetanus shot updated. Referred to ortho on discharge. Refused Glover for home. Since discharge, patient has been using 's sling instead of the sling and swath. States this sling has not been as stable. Has not scheduled appointment with ortho yet. Complaining of pain last night which he was treating with tylenol arthritis 2 tablets every 6 hours. Helps take the edge off, but would like rx for Glover since it worked better for him. Has cane at home and was not using it when he fell. Patient and son agree that he is steady on feetwith use of his cane. Past medical history, appointments, medications, allergies reviewed. Previous Medical History PAST MEDICAL HISTORY Diagnosis Date Abdominal pain, epigastric BPH (benign prostatic hyperplasia) Seeing Dr. Potter CKD (chronic kidney disease), stage III (HCC) Dr. Childress DDD (degenerative disc disease), lumbar Elevated PSA GERD (gastroesophageal reflux disease) Hypertension Iron deficiency anemia Osteoarthritis RLS (restless legs syndrome) Rotator cuff tear arthropathy Seen previously by Dr. Palomino Previous Surgical History PAST SURGICAL HISTORY Procedure Laterality Date CIRCUMCISION EGD TRANSORAL BIOPSY SINGLE/MULTIPLE 10/29/09 minimal irritation LAPAROSCOPY SURG CHOLECYSTECTOMY 10/31/09 Cholecystectomy, lap REPAIR FIRST ABDOMINAL WALL HERNIA 2006 Hernia repair, incisional SHOULDER ARTHROSCOPY/SURG 11/13/2010 Rotator cuff repair and Sub AC decompression right shouldrer Family History FAMILY HISTORY Problem Relation Age of Onset None Mother Alcohol/Drug Father Heart Brother Patient Allergies ALLERGIES Allergen Reactions Aspirin GI Upset Penicillins Rash Current Medications Current Outpatient Medications on File Prior to Visit Medication Sig gabapentin (NEURONTIN) 300 mg capsule Take one capsule at bedtime lisinopril (ZESTRIL, PRINIVIL) 40 mg tablet Take 0.5 tablets by mouth once daily. ferrous sulfate 325 mg (65 mg iron) tablet Take 1 tablet by mouth daily with breakfast. omeprazole (PRILOSEC) 20 mg capsule Take 1 capsule by mouth twice daily. terazosin (HYTRIN) 5 mg capsule Take 1 capsule by mouth daily at bedtime. finasteride (PROSCAR) 5 mg tablet Take 1 tablet by mouth once daily. hydrOXYzine pamoate (VISTARIL) 50 mg capsule Take 1 capsule by mouth at bedtime as needed (insomnia). aspirin, enteric coated (ASPIRIN, ENTERIC COATED) 81 mg EC tablet Take 81 mg by mouth once daily. Pt reported low dose melatonin 10 mg tab Take 5 mg by mouth daily at bedtime. COMPOUNDED PRESCRIPTION Citizen [place] dream cream topical for pain Histamine dihydrichloride 0.025% POLYETHYLENE GLYCOL 3350 17 gram/dose ORAL powder 17 g once daily. No current facility-administered medications on file prior to visit. Social History Social History Tobacco Use Smoking status: Former Packs/day: 0.20 Types: Cigarettes Quit date: 06/07/1994 Years since quittin.6 Smokeless tobacco: Never Tobacco comments: quit 10 years ago Substance Use Topics Alcohol use: No Drug use: No Review of Symptoms REVIEW OF SYSTEMS See HPI EXAM: BP 110/68 Pulse (!) 58 Resp 18 Wt 80.2 kg (176 lb 12.8 oz) SpO2 98% BMI 27.69 kg/m General Appearance: Well appearing, alert, in no acute distress, well-hydrated, well nourished.. Skin: 2-3 cm abrasion over right patella without cellulitis. Musculoskeletal: TTP with bruising and swelling over right lateral clavicle. Right arm in small sling. Health Maintenance List SHINGRIX VACCINE(2 of 3) due on 12/12/2007 DTAP,TDAP,TD(1 - Tdap) due on 10/13/2014 ADVANCE DIRECTIVE DISCUSSION Never done INFLUENZA(1) due on 02/05/2022 DIABETES SCREEN due on 12/16/2024 COVID-19 VACCINE Completed PNEUMOCOCCAL: 65+ Completed ASSESSMENT/PLAN: 1. Closed displaced fracture of right clavicle, unspecified part of clavicle, initial encounter - ICD9: 810.00, ICD10: S42.001A (primary diagnosis) Discussed use of sling/swath he was prescribed to help with pain and will call in 7 days of cayuga for acute fracture. Discussed risks of narcotic with patient and son. Needs to follow up with ortho. Call tomorrow morning for appointment. - HYDROCODONE 5 MG-ACETAMINOPHEN 325 MG TABLET 2. Acute pain of right shoulder - ICD9: 719.41, ICD10: M25.511 See above. 3. Abrasion of right knee, initial encounter - ICD9: 916.0, ICD10: S80.211A Tetanus updated in the ED. Continue triple abx ointment BID until healed. Red flags for re-assessment reviewed with patient in detail. 4. Fall in home, initial encounter - ICD9: E888.9, E849.0, ICD10: W19.XXXA, Y92.009 Trip and fall at home without cane. Discussed daily use of cane and offered PT referral for balancewhich he is refusing. Jordan Johnson MD documented in this encounterMercy Health [facility]08-29-2022 Miscellaneous Notes* Telephone Encounter - Fabby Moore APRN.CNP - 02/02/2022 10:04 AM EDT Prescription sent for gabapentin 01/30/2022 Fabby Moore APRN.EZ * Telephone Encounter - Veronica Ramos LPN - 02/02/2022 9:06 AM EDT Domenica--12/12/21 nov-- 06/15/22 Last refill--01/30/22 90 with 0 refills Last labs--12/19/21 documented in this encounterMercy Health [facility]07-18-2022 Miscellaneous Notes* Telephone Encounter - Jocelin Roach - 12/22/2021 1:06 PM EDT Patient is out of his Lisinopril and his mail order pharmacy is not coming for a week or so. He needs this called in immediately so he can hop picker this afternoon. Patient would like 2 weeks worth called into the local pharmacy. He is also asking for a bigger supply so he doesn't have to call the mail order pharmacy so much. * Telephone Encounter - Jocelin Roach - 12/22/2021 1:03 PM EDT Pharmacy verified in [facility] Patient has been identified by name and date of : Yes Patient aware RX will be sent to pharmacy. No need to notify patient. Patient phones for refill(s): Pending Prescriptions Disp Refills LISINOPRIL 40 MG TABLET 7 tablet 0 Sig: Take 0.5 tablets by mouth once daily. LAURA: No Date of last office visit : 12/12/2021 Date of next office visit : 06/15/2022 Last 2 Encounter Wt Readings: Date: Wt: 12/12/2021 81.8 kg (180 lb 6.4 oz) 08/13/2021 80.6 kg (177 lb 9.6 oz) Please advise. Jocelin Cisse Pss documented in this encounterMercy Health [facility]07-15-2022 Miscellaneous Notes* Telephone Encounter - Vickie Hooks RN - 12/19/2021 1:04 PM EDT Pt called and is notified of providers results and instructions. Pt voices understanding. Vickie Hooks RN * Telephone Encounter - Fabby Moore APRN.CNP - 12/19/2021 12:45 PM EDT Please call patient and let him know his stool is negative for blood. We will continue to monitor his CBC. Will recheck in 6 weeks, orders in place. Thanks, Fabby Moore APRN.CNP documented in this encounterMercy Health Urbana Hospital07-13-2022 Miscellaneous Notes* Telephone Encounter - Paige Velazquez Ma - 12/17/2021 12:04 PM EDT was notified and patient will get labs when dropping off stool test Paige Velazquez Ma * Telephone Encounter - Fabby Moore APRN.CNP - 12/17/2021 11:13 AM EDT No sure if lab can add on alkaline phos isoenzymes and GGT. If they can't patient will need to comeback in because his alkaline phosphate is still elevated. Also let him know his B12 and folic acid are normal. He needs to complete his stool for occult blood to look for posible cause of anemia. Thanks, Fabby Moore APRN.CNP documented [facility] encounter[facility] History of Present illness Narrative* Fabby Moore APRN.CNP - 12/12/2021 2:01 PM EDT 12/12/2021 Patient presents with: F/U 6 Month SUBJECTIVE: This is a 86 year old that is here today for Above Complaints. Since last appointment has been in good health without falls, ER visits or hospitalizations. HTN: Patient is compliant with meds Yes Monitors bp at home: No. Denies side effects: No. Chest pain: No. Dyspnea: No. Edema: No. Palpitations: No. Syncope: No. Headache: No. Dizziness: No. BPH: Taking medications as prescribed without side effects. Denies nocturia, weak stream or feelinglike he is not emptying bladder CKD: eating low salt diet and avoiding NSAID products. RLS: taking gabapentin as ordered without side effects PAST MEDICAL HISTORY Diagnosis Date Abdominal pain, epigastric BPH (benign prostatic hyperplasia) Seeing Dr. Potter CKD (chronic kidney disease), stage III (HCC) Dr. Childress DDD (degenerative disc disease), lumbar Elevated PSA GERD (gastroesophageal reflux disease) Hypertension Iron deficiency anemia Osteoarthritis RLS (restless legs syndrome) Rotator cuff tear arthropathy Seen previously by Dr. Palomino ALLERGIES Aspirin and Penicillins MEDICATIONS Current Outpatient Medications Medication Sig lisinopril (ZESTRIL, PRINIVIL) 40 mg tablet Take 0.5 tablets by mouth once daily. ferrous sulfate 325 mg (65 mg iron) tablet Take 1 tablet by mouth daily with breakfast. gabapentin (NEURONTIN) 300 mg capsule Take one capsule at bedtime omeprazole (PRILOSEC) 20 mg capsule Take 1 capsule by mouth twice daily. terazosin (HYTRIN) 5 mg capsule Take 1 capsule by mouth daily at bedtime. finasteride (PROSCAR) 5 mg tablet Take 1 tablet by mouth once daily. hydrOXYzine pamoate (VISTARIL) 50 mg capsule Take 1 capsule by mouth at bedtime as needed (insomnia). melatonin 10 mg tab Take 5 mg by mouth daily at bedtime. POLYETHYLENE GLYCOL 3350 17 gram/dose ORAL powder 17 g once daily. aspirin, enteric coated (ASPIRIN, ENTERIC COATED) 81 mg EC tablet Take 81 mg by mouth once daily. Pt reported low dose COMPOUNDED PRESCRIPTION Citizen [place] dream cream topical for pain Histamine dihydrichloride 0.025% No current facility-administered medications for this visit. Medications and allergies reviewed by this provider. SOCIAL HISTORY Social History Tobacco Use Smoking status: Former Smoker Packs/day: 0.20 Types: Cigarettes Quit date: 06/07/1994 Years since quittin.5 Smokeless tobacco: Never Used Tobacco comment: quit 10 years ago Substance Use Topics Alcohol use: No Drug use: No REVIEW OF SYSTEMS All other reviewed and negative other than HPI. OBJECTIVE: BP 128/66 Pulse 66 Resp 20 Wt 81.8 kg (180 lb 6.4 oz) SpO2 96% BMI 28.25 kg/m . Vital signs reviewed by this provider. APPEARANCE Well appearing, alert, in no acute distress, well-hydrated, well nourished. EYES PERRLA, conjunctiva and sclera normal. HEART RRR with normal S1 and S2, no murmurs, no gallops, no JVD appreciated LUNG clear to auscultation. No wheezes, rhonchi, or rales EXTREMITIES Extremities normal, No deformities, No skin discoloration and No edema SKIN Skin color, texture, turgor normal, no suspicious rashes or lesions to exposed skin Component Latest Ref Rng & Units 06/12/2021 WBC 3.70 - 11.00 k/uL 4.74 RBC 4.20 - 6.00 m/uL 3.81 (L) Hemoglobin 13.0 - 17.0 g/dL 12.8 (L) Hematocrit 39.0 - 51.0 % 39.3 MCV 80.0 - 100.0 fL 103.1 (H) MCH 26.0 - 34.0 pG 33.6 MCHC 30.5 - 36.0 g/dL 32.6 RDW-CV 11.5 - 15.0 % 13.6 Platelet Count 150 - 400 k/uL 263 MPV 9.0 - 12.7 fL 11.6 Neut% % 47.2 Abs Neut (ANC) 1.45 - 7.50 k/uL 2.23 Lymph% % 35.7 Abs Lymph 1.00 - 4.00 k/uL 1.69 Lagrange% % 11.4 Abs Lagrange <0.87 k/uL 0.54 Eosin% % 4.9 Abs Eosin <0.46 k/uL 0.23 Baso% % 0.8 Abs Baso <0.11 k/uL 0.04 Nucleated Reds 0 /100 WBC 0.0 Absolute nRBC <0.01 k/uL <0.01 Diff Type Auto Diff Protein, Total 6.3 - 8.0 g/dL 7.6 Albumin 3.9 - 4.9 g/dL 4.5 Calcium 8.5 - 10.2 mg/dL 9.8 Bilirubin, Total 0.2 - 1.3 mg/dL 0.4 Alkaline Phosphatase 38 - 113 U/L 115 (H) AST 14 - 40 U/L 31 Glucose 74 - 99 mg/dL 89 BUN 9 - 24 mg/dL 20 Creatinine 0.73 - 1.22 mg/dL 1.24 (H) Sodium 136 - 144 mmol/L 132 (L) Potassium 3.7 - 5.1 mmol/L 4.9 Chloride 97 - 105 mmol/L 95 (L) CO2 22 - 30 mmol/L 25 Anion Gap 9 - 18 mmol/L 12 ALT 10 - 54 U/L 26 eGFR- >60 eGFR-All Other Races . 56 Iron 41 - 186 ug/dL 110 TIBC 232 - 386 ug/dL 139 (L) Transferrin Saturation 15 - 57 % 79 (H) Ferritin 30.3 - 565.7 ng/mL 254.0 SHINGRIX VACCINE(2 of 3) due on 12/12/2007 DTAP,TDAP,TD(1 - Tdap) due on 10/13/2014 ADVANCE DIRECTIVE DISCUSSION Never done INFLUENZA(1) due on 02/05/2022 DIABETES SCREEN due on 06/12/2024 COVID-19 VACCINE Completed PNEUMOCOCCAL: 65+ Completed ASSESSMENT/PLAN: 1. Essential hypertension - ICD9: 401.9, ICD10: I10 (primary diagnosis) - good control - Continue current medication(s) - Encouraged dietary sodium restriction/DASH diet - Recommended regular aerobic exercise. - Recommend home blood pressure monitoring, to bring results in on next visit - Recheck in 6 months, sooner should new symptoms or problems arise. - Goal of BP <130/80 - Recommended no refined sugar, low refined starch, healthy oil intake (olive oil), healthy protein(fish) along the lines of the Mediterranean diet. - LISINOPRIL 40 MG TABLET - COMP METABOLIC PANEL 2. Iron deficiency anemia, unspecified iron deficiency anemia type - ICD9: 280.9, ICD10: D50.9 - continue iron supplement - CBC + DIFF - FERRITIN BLD - IRON + TIBC 3. Stage 3a chronic kidney disease (HCC) - ICD9: 585.3, ICD10: N18.31 - continue low slat diet, avoid NSAID products and stay well hydrated - COMP METABOLIC PANEL 4. Benign prostatic hyperplasia without lower urinary tract symptoms - ICD9: 600.00, ICD10: N40.0 - stable - continue current medications 5. RLS (restless legs syndrome) - ICD9: 333.94, ICD10: G25.81 - stable continue current medications Fabby Moore APRN.CNP Prescription instructions reviewed with patient as applicable. Patient advised if symptoms do not improve or if symptoms worsen sooner, to contact their primary care physician. Potential red flag symptoms discussed with the patient. Reviewed appropriate action plan to take if red flag symptoms occur. Patient agreeable to treatment plan. documented in this encounter[facility]05-[facility]-2022 Miscellaneous Notes* Telephone Encounter - Fabby Moore APRN.CNP - 10/13/2021 10:42 AM EDT PDMP website checked and validated. All prescriptions have been APPROPRIATELY filled. No suspiciousactivity was identified. 10/13/2021 by Fabby Moore APRN.CNP * Telephone Encounter - Tana Saab LPN - 10/13/2021 10:32 AM EDT Patient has been identified by name and date of : Yes Patient phones for refill(s): Pending Prescriptions Disp Refills GABAPENTIN 300 MG CAPSULE 90 capsule 0 Sig: Take one capsule at bedtime LAURA: No Date of last office visit in primary care: 08/13/21 next apt 12/10/21 Last 2 Encounter Wt Readings: Date: Wt: 08/13/2021 80.6 kg (177 lb 9.6 oz) 06/12/2021 80.3 kg (177 lb) Previous labs/tests for medication: Not applicable Please advise. Thank you. Tana Saab LPN documented in this encounterMer[facility]05-09-2022 Miscellaneous Notes* Telephone Encounter - Tana Saab LPN - 10/13/2021 10:33 AM EDT Patient has been identified by name and date of : Yes Patient phones for refill(s): Pending Prescriptions Disp Refills FERROUS SULFATE 325 MG (65 MG IRON) TABLET 90 tablet 3 Sig: Take 1 tablet by mouth daily with breakfast. LAURA: No Date of last office visit in primary care: 08/13/21 next apt 12/10/21 Last 2 Encounter Wt Readings: Date: Wt: 08/13/2021 80.6 kg (177 lb 9.6 oz) 06/12/2021 80.3 kg (177 lb) Previous labs/tests for medication: Not applicable Please advise. Thank you. Tana Saab LPN documented in this encounterMer[facility]03-25-2022 Miscellaneous Notes* Telephone Encounter - Jessy Alas LPN - 08/29/2021 4:56 PM EDT Patient phones requesting refills as follows: Pending Prescriptions Disp Refills GABAPENTIN 300 MG CAPSULE 90 capsule 0 Sig: Take one capsule at bedtime LAURA: No DOMENICA 08/13/21 NOV 12/10/21 Please review and advise. Jessy Alas LPN documented in this encounterMer[facility]03-16-2021 History of Present illness Narrative* Sofia MercadoRt)Jen - 08/20/2020 2:50 PM EDT Radiology Service Progress Note PATIENT NAME: Atif Colón DATE OF SERVICE: August 20, 2020 TIME: 3:16 PM PATIENT IDENTITY VERIFICATION COMPLETED USING TWO (2) IDENTIFIERS: Name and Date of confirmedby patient verbally. FALL SCREENING: Has the patient had 2 falls in the last year or 1 fall with injury or currently using an Ambulatory Assistive Device (Walker, Cane, Wheelchair, Crutches, etc.)? No PATIENT GENDER DATA: Male PATIENT RELEVANT IMPLANT DATA REVIEWED: Not Applicable RADIOLOGY DEPARTMENT: General X-ray: Exam(s) Completed: Pelvis X-Ray: Pelvis General AP PERIPHERAL IV DATA: Not applicable SIGNED BY: RT Anjali August 20, 2020 3:16 PM documented in this encounterMer[facility]06-14-2016 History of Past illness Narrative* Problem Noted Date Resolved Date Elevated prostate specific antigen (PSA) 016 06/12/2021 Rotator cuff (capsule) sprain 03/16/2012 Rotator cuff tear 09/30/2010 06/23/2011 Hypertension 06/09/2017 Elevated PSA 06/09/2017 documented as of this encounter (statuses as of 08/30/2021) [facility] of [facility] illness Narrative* Problem Noted Date Resolved Date Elevated prostate specific antigen (PSA) 016 06/12/2021 Rotator cuff (capsule) sprain 03/16/2012 Rotator cuff tear 09/30/2010 06/23/2011 Hypertension 06/09/2017 Elevated PSA 06/09/2017 documented as of this encounter (statuses as of 09/01/2021) [facility] Narrative* Problem Noted Date Resolved Date Elevated prostate specific antigen (PSA) 016 06/12/2021 Rotator cuff (capsule) sprain 03/16/2012 Rotator cuff tear 09/30/2010 06/23/2011 Hypertension 06/09/2017 Elevated PSA 06/09/2017 documented as of this encounter (statuses as of 10/13/2021) [facility] Narrative* Problem Noted Date Resolved Date Elevated prostate specific antigen (PSA) 016 06/12/2021 Rotator cuff (capsule) sprain 03/16/2012 Rotator cuff tear 09/30/2010 06/23/2011 Hypertension 06/09/2017 Elevated PSA 06/09/2017 documented as of this encounter (statuses as of 12/12/2021) [facility] Narrative* Problem Noted Date Resolved Date Elevated prostate specific antigen (PSA) 016 06/12/2021 Rotator cuff (capsule) sprain 03/16/2012 Rotator cuff tear 09/30/2010 06/23/2011 Hypertension 06/09/2017 Elevated PSA 06/09/2017 documented as of this encounter (statuses as of 12/17/2021) [facility] Narrative* Problem Noted Date Resolved Date Elevated prostate specific antigen (PSA) 2 016 06/12/2021 Rotator cuff (capsule) sprain 03/16/2012 Rotator cuff tear 09/30/2010 06/23/2011 Hypertension 06/09/2017 Elevated PSA 06/09/2017 documented as of this encounter (statuses as of 12/19/2021) [facility] Narrative* Problem Noted Date Resolved Date Elevated prostate specific antigen (PSA) 2 016 06/12/2021 Rotator cuff (capsule) sprain 03/16/2012 Rotator cuff tear 09/30/2010 06/23/2011 Hypertension 06/09/2017 Elevated PSA 06/09/2017 documented as of this encounter (statuses as of 12/22/2021) [facility] Narrative* Problem Noted Date Resolved Date Elevated prostate specific antigen (PSA) 142 016 06/12/2021 Rotator cuff (capsule) sprain 03/16/2012 Rotator cuff tear 09/30/2010 06/23/2011 Hypertension 06/09/2017 Elevated PSA 06/09/2017 documented as of this encounter (statuses as of 12/25/2021) [facility] Narrative* Problem Noted Date Resolved Date Elevated prostate specific antigen (PSA) 016 06/12/2021 Rotator cuff (capsule) sprain 03/16/2012 Rotator cuff tear 09/30/2010 06/23/2011 Hypertension 06/09/2017 Elevated PSA 06/09/2017 documented as of this encounter (statuses as of 02/03/2022) [facility] Narrative* Problem Noted Date Resolved Date Elevated prostate specific antigen (PSA) 016 06/12/2021 Rotator cuff (capsule) sprain 03/16/2012 Rotator cuff tear 09/30/2010 06/23/2011 Hypertension 06/09/2017 Elevated PSA 06/09/2017 documented as of this encounter (statuses as of 02/03/2022) [facility] Narrative* Problem Noted Date Resolved Date Elevated prostate specific antigen (PSA) 016 06/12/2021 Rotator cuff (capsule) sprain 03/16/2012 Rotator cuff tear 09/30/2010 06/23/2011 Hypertension 06/09/2017 Elevated PSA 06/09/2017 documented as of this encounter (statuses as of 02/11/2022) [facility] Narrative* Problem Noted Date Resolved Date Elevated prostate specific antigen (PSA) 016 06/12/2021 Rotator cuff (capsule) sprain 03/16/2012 Rotator cuff tear 09/30/2010 06/23/2011 Hypertension 06/09/2017 Elevated PSA 06/09/2017 documented as of this encounter (statuses as of 02/11/2022) [facility] Narrative* Problem Noted Date Resolved Date Elevated prostate specific antigen (PSA) 016 06/12/2021 Rotator cuff (capsule) sprain 03/16/2012 Rotator cuff tear 09/30/2010 06/23/2011 Hypertension 06/09/2017 Elevated PSA 06/09/2017 documented as of this encounter (statuses as of 02/26/2022) [facility] Narrative* Problem Noted Date Resolved Date Elevated prostate specific antigen (PSA) 14/2 016 06/12/2021 Rotator cuff (capsule) sprain 03/16/2012 Rotator cuff tear 09/30/2010 06/23/2011 Hypertension 06/09/2017 Elevated PSA 06/09/2017 documented as of this encounter (statuses as of 04/14/2022) [facility] Narrative* Problem Noted Date Resolved Date Elevated prostate specific antigen (PSA) 2 016 06/12/2021 Rotator cuff (capsule) sprain 03/16/2012 Rotator cuff tear 09/30/2010 06/23/2011 Hypertension 06/09/2017 Elevated PSA 06/09/2017 documented as of this encounter (statuses as of 04/15/2022) [facility] Narrative* Problem Noted Date Resolved Date Elevated prostate specific antigen (PSA) 142 016 06/12/2021 Rotator cuff (capsule) sprain 03/16/2012 Rotator cuff tear 09/30/2010 06/23/2011 Hypertension 06/09/2017 Elevated PSA 06/09/2017 documented as of this encounter (statuses as of 04/17/2022) [facility]arrative* Problem Noted Date Resolved Date Elevated prostate specific antigen (PSA) 14/2 016 06/12/2021 Rotator cuff (capsule) sprain 03/16/2012 Rotator cuff tear 09/30/2010 06/23/2011 Hypertension 06/09/2017 Elevated PSA 06/09/2017 documented as of this encounter (statuses as of 04/17/2022) [facility]ative* Problem Noted Date Resolved Date Elevated prostate specific antigen (PSA) 14/2 016 06/12/2021 Rotator cuff (capsule) sprain 03/16/2012 Rotator cuff tear 09/30/2010 06/23/2011 Hypertension 06/09/2017 Elevated PSA 06/09/2017 documented as of this encounter (statuses as of 04/21/2022) [facility]ative* Problem Noted Date Resolved Date Elevated prostate specific antigen (PSA) 016 06/12/2021 Rotator cuff (capsule) sprain 03/16/2012 Rotator cuff tear 09/30/2010 06/23/2011 Hypertension 06/09/2017 Elevated PSA 06/09/2017 documented as of this encounter (statuses as of 04/22/2022) [facility]arrative* Problem Noted Date Resolved Date Elevated prostate specific antigen (PSA) 016 06/12/2021 Rotator cuff (capsule) sprain 03/16/2012 Rotator cuff tear 09/30/2010 06/23/2011 Hypertension 06/09/2017 Elevated PSA 06/09/2017 documented as of this encounter (statuses as of 04/29/2022) [facility]ative* Problem Noted Date Resolved Date Elevated prostate specific antigen (PSA) 016 06/12/2021 Rotator cuff (capsule) sprain 03/16/2012 Rotator cuff tear 09/30/2010 06/23/2011 Hypertension 06/09/2017 Elevated PSA 06/09/2017 documented as of this encounter (statuses as of 05/06/2022) [facility]* Problem Noted Date Resolved Date Elevated prostate specific antigen (PSA) 14/2 016 06/12/2021 Rotator cuff (capsule) sprain 03/16/2012 Rotator cuff tear 09/30/2010 06/23/2011 Hypertension 06/09/2017 Elevated PSA 06/09/2017 documented as of this encounter (statuses as of 05/13/2022) [facility]* Problem Noted Date Resolved Date Elevated prostate specific antigen (PSA) 14/2 016 06/12/2021 Rotator cuff (capsule) sprain 03/16/2012 Rotator cuff tear 09/30/2010 06/23/2011 Hypertension 06/09/2017 Elevated PSA 06/09/2017 documented as of this encounter (statuses as of 05/14/2022) [facility]* Problem Noted Date Resolved Date Elevated prostate specific antigen (PSA) 14/2 016 06/12/2021 Rotator cuff (capsule) sprain 03/16/2012 Rotator cuff tear 09/30/2010 06/23/2011 Hypertension 06/09/2017 Elevated PSA 06/09/2017 documented as of this encounter (statuses as of 05/21/2022) [facility]* Problem Noted Date Resolved Date Elevated prostate specific antigen (PSA) 016 06/12/2021 Rotator cuff (capsule) sprain 03/16/2012 Rotator cuff tear 09/30/2010 06/23/2011 Hypertension 06/09/2017 Elevated PSA 06/09/2017 documented as of this encounter (statuses as of 05/25/2022) [facility]* Problem Noted Date Resolved Date Elevated prostate specific antigen (PSA) 14/2 016 06/12/2021 Rotator cuff (capsule) sprain 03/16/2012 Rotator cuff tear 09/30/2010 06/23/2011 Hypertension 06/09/2017 Elevated PSA 06/09/2017 documented as of this encounter (statuses as of 06/12/2022) [facility]* Problem Noted Date Resolved Date Elevated prostate specific antigen (PSA) 14/2 016 06/12/2021 Rotator cuff (capsule) sprain 03/16/2012 Rotator cuff tear 09/30/2010 06/23/2011 Hypertension 06/09/2017 Elevated PSA 06/09/2017 documented as of this encounter (statuses as of 06/16/2022) [facility]* Problem Noted Date Resolved Date Elevated prostate specific antigen (PSA) 14/2 016 06/12/2021 Rotator cuff (capsule) sprain 03/16/2012 Rotator cuff tear 09/30/2010 06/23/2011 Hypertension 06/09/2017 Elevated PSA 06/09/2017 documented as of this encounter (statuses as of 06/16/2022) [facility]* Problem Noted Date Resolved Date Elevated prostate specific antigen (PSA) 016 06/12/2021 Rotator cuff (capsule) sprain 03/16/2012 Rotator cuff tear 09/30/2010 06/23/2011 Hypertension 06/09/2017 Elevated PSA 06/09/2017 documented as of this encounter (statuses as of 06/22/2022) [facility]* Problem Noted Date Resolved Date Elevated prostate specific antigen (PSA) 016 06/12/2021 Rotator cuff (capsule) sprain 03/16/2012 Rotator cuff tear 09/30/2010 06/23/2011 Hypertension 06/09/2017 Elevated PSA 06/09/2017 documented as of this encounter (statuses as of 07/13/2022) [facility]* Problem Noted Date Resolved Date Elevated prostate specific antigen (PSA) 016 06/12/2021 Rotator cuff (capsule) sprain 03/16/2012 Rotator cuff tear 09/30/2010 06/23/2011 Hypertension 06/09/2017 Elevated PSA 06/09/2017 documented as of this encounter (statuses as of 07/15/2022) [facility]* Problem Noted Date Resolved Date Elevated prostate specific antigen (PSA) 016 06/12/2021 Rotator cuff (capsule) sprain 03/16/2012 Rotator cuff tear 09/30/2010 06/23/2011 Hypertension 06/09/2017 Elevated PSA 06/09/2017 documented as of this encounter (statuses as of 07/20/2022) [facility]* Problem Noted Date Resolved Date Elevated prostate specific antigen (PSA) 016 06/12/2021 Rotator cuff (capsule) sprain 03/16/2012 Rotator cuff tear 09/30/2010 06/23/2011 Hypertension 06/09/2017 Elevated PSA 06/09/2017 documented as of this encounter (statuses as of 08/07/2022) [facility]* Problem Noted Date Resolved Date Elevated prostate specific antigen (PSA) 016 06/12/2021 Rotator cuff (capsule) sprain 03/16/2012 Rotator cuff tear 09/30/2010 06/23/2011 Hypertension 06/09/2017 Elevated PSA 06/09/2017 documented as of this encounter (statuses as of 09/07/2022) [facility]* Problem Noted Date Resolved Date Elevated prostate specific antigen (PSA) 016 06/12/2021 Rotator cuff (capsule) sprain 03/16/2012 Rotator cuff tear 09/30/2010 06/23/2011 Hypertension 06/09/2017 Elevated PSA 06/09/2017 documented as of this encounter (statuses as of 09/14/2022) [facility]* Problem Noted Date Resolved Date Elevated prostate specific antigen (PSA) 016 06/12/2021 Rotator cuff (capsule) sprain 03/16/2012 Rotator cuff tear 09/30/2010 06/23/2011 Hypertension 06/09/2017 Elevated PSA 06/09/2017 documented as of this encounter (statuses as of 10/01/2022) [facility]* Problem Noted Date Resolved Date Elevated prostate specific antigen (PSA) 016 06/12/2021 Rotator cuff (capsule) sprain 03/16/2012 Rotator cuff tear 09/30/2010 06/23/2011 Hypertension 06/09/2017 Elevated PSA 06/09/2017 documented as of this encounter (statuses as of 10/08/2022) [facility]* Problem Noted Date Resolved Date Elevated prostate specific antigen (PSA) 016 06/12/2021 Rotator cuff (capsule) sprain 03/16/2012 Rotator cuff tear 09/30/2010 06/23/2011 Hypertension 06/09/2017 Elevated PSA 06/09/2017 documented as of this encounter (statuses as of 11/09/2022) [facility]* Problem Noted Date Resolved Date Elevated prostate specific antigen (PSA) 016 06/12/2021 Rotator cuff (capsule) sprain 03/16/2012 Rotator cuff tear 09/30/2010 06/23/2011 Hypertension 06/09/2017 Elevated PSA 06/09/2017 documented as of this encounter (statuses as of 11/09/2022) [facility]* Problem Noted Date Resolved Date Elevated prostate specific antigen (PSA) 016 06/12/2021 Rotator cuff (capsule) sprain 03/16/2012 Rotator cuff tear 09/30/2010 06/23/2011 Hypertension 06/09/2017 Elevated PSA 06/09/2017 documented as of this encounter (statuses as of 11/09/2022) [facility]* Problem Noted Date Resolved Date Elevated prostate specific antigen (PSA) 016 06/12/2021 Rotator cuff (capsule) sprain 03/16/2012 Rotator cuff tear 09/30/2010 06/23/2011 Hypertension 06/09/2017 Elevated PSA 06/09/2017 documented as of this encounter (statuses as of 11/09/2022) [facility] Past illness Narrative* Problem Noted Date Resolved Date Elevated prostate specific antigen (PSA) 016 06/12/2021 Rotator cuff (capsule) sprain 03/16/2012 Rotator cuff tear 09/30/2010 06/23/2011 Hypertension 06/09/2017 Elevated PSA 06/09/2017 documented as of this encounter (statuses as of 11/25/2022) [facility] History of Past illness Narrative* Problem Noted Date Diagnosed Date Resolved Date Elevated prostate specific antigen (PSA) 11/19/2015 06/12/2021 Rotator cuff (capsule) sprain 03/16/2012 06/21/2012 Rotator cuff tear 09/30/2010 06/23/2011 Hypertension 06/09/2017 Elevated PSA 06/09/2017 documented as of this encounter (statuses as of 12/18/2022) [facility] History of Past illness Narrative* Problem Noted Date Diagnosed Date Resolved Date Elevated prostate specific antigen (PSA) 11/19/2015 06/12/2021 Rotator cuff (capsule) sprain 03/16/2012 06/21/2012 Rotator cuff tear 09/30/2010 06/23/2011 Hypertension 06/09/2017 Elevated PSA 06/09/2017 documented as of this encounter (statuses as of 12/24/2022) [facility] History of Past illness Narrative* Problem Noted Date Diagnosed Date Resolved Date Elevated prostate specific antigen (PSA) 11/19/2015 06/12/2021 Rotator cuff (capsule) sprain 03/16/2012 06/21/2012 Rotator cuff tear 09/30/2010 06/23/2011 Hypertension 06/09/2017 Elevated PSA 06/09/2017 documented as of this encounter (statuses as of 12/24/2022) [facility] History of Past illness Narrative* Problem Noted Date Diagnosed Date Resolved Date Elevated prostate specific antigen (PSA) 11/19/2015 06/12/2021 Rotator cuff (capsule) sprain 03/16/2012 06/21/2012 Rotator cuff tear 09/30/2010 06/23/2011 Hypertension 06/09/2017 Elevated PSA 06/09/2017 documented as of this encounter (statuses as of 12/27/2022) [facility] Diagnosis RLS (restless legs syndrome) Restless legs syndrome (RLS) [facility] Diagnosis RLS (restless legs syndrome) Restless legs syndrome (RLS) [facility] Diagnosis Iron deficiency anemia, unspecified iron deficiency anemia type [facility] Diagnosis RLS (restless legs syndrome) Restless legs syndrome (RLS) [facility] Diagnosis Essential hypertension- Primary Unspecified essential hypertension Iron deficiency anemia, unspecified iron deficiency anemia type Stage 3a chronic kidney disease (HCC) Benign prostatic hyperplasia without lower urinary tract symptoms RLS (restless legs syndrome) Restless legs syndrome (RLS) [facility] Diagnosis Elevated alkaline phosphatase level- Primary Other nonspecific abnormal serum enzyme levels [facility] Diagnosis Anemia, unspecified type- Primary documented in this encounter [facility] note* Diagnosis Essential hypertension Unspecified essential hypertension documented in this encounter [facility] note* Diagnosis Elevated alkaline phosphatase level Other nonspecific abnormal serum enzyme levels documented in this encounter [facility] note* Diagnosis RLS (restless legs syndrome) Restless legs syndrome (RLS) documented in this encounter [facility] note* Diagnosis Closed displaced fracture of right clavicle, unspecified part of clavicle, initial encounter- Primary Acute pain of right shoulder Abrasion of right knee, initial encounter Fall in home, initial encounter documented in this encounter [facility] note* Diagnosis Closed displaced fracture of right clavicle, unspecified part of clavicle, initial encounter documented in this encounter [facility] note* Diagnosis Essential hypertension Unspecified essential hypertension documented in this encounter [facility] note* Diagnosis RLS (restless legs syndrome) Restless legs syndrome (RLS) documented in this encounter [facility] note* Diagnosis Bilateral lower extremity edema- Primary Edema Essential hypertension Unspecified essential hypertension documented in this encounter [facility] note* Diagnosis Bilateral lower extremity edema- Primary Edema Elevated brain natriuretic peptide (BNP) level Other nonspecific findings on examination of blood documented in this encounter [facility] note* Diagnosis Bilateral lower extremity edema- Primary Edema documented in this encounter [facility] note* Diagnosis Essential hypertension- Primary Unspecified essential hypertension Acute pain of left shoulder documented in this encounter [facility] note* Diagnosis Acute pain of left shoulder- Primary documented in this encounter [facility] note* Diagnosis Essential hypertension Unspecified essential hypertension Bilateral lower extremity edema Edema documented in this encounter [facility] note* Diagnosis Acute pain of left shoulder- Primary documented in this encounter [facility] note* Diagnosis Essential hypertension Unspecified essential hypertension documented in this encounter [facility] note* Diagnosis Left shoulder pain, unspecified chronicity- Primary documented in this encounter [facility] note* Diagnosis Essential hypertension Unspecified essential hypertension documented in this encounter [facility] note* Diagnosis Ecchymosis- Primary Other specified circulatory system disorders documented in this encounter [facility] note* Diagnosis Essential hypertension Unspecified essential hypertension documented in this encounter [facility] note* Diagnosis RLS (restless legs syndrome) Restless legs syndrome (RLS) documented in this encounter [facility] note* Diagnosis Bilateral impacted cerumen- Primary Impacted cerumen [facility] Diagnosis Essential hypertension Unspecified essential hypertension [facility] Diagnosis Pain in right upper arm- Primary Fall, initial encounter Abrasion Abrasion or friction burn of other, multiple, and unspecified sites, without mention of infection [facility] Diagnosis Fall in home, subsequent encounter- Primary Multiple skin tears Open wound(s) (multiple) of unspecified site(s), without mention of complication At high risk for falls Personal history of fall Age-related physical debility Senility without mention of psychosis Screening for osteoporosis Special screening for osteoporosis Encounter for screening for osteoporosis Special screening for osteoporosis Other nonthrombocytopenic purpura (HCC) [facility] Diagnosis Bilateral lower extremity edema Edema [facility] Diagnosis RLS (restless legs syndrome) Restless legs syndrome (RLS) [facility] Diagnosis Encounter for screening fecal occult blood testing- Primary Special screening for malignant neoplasms, colon Hyperkalemia Hyperpotassemia [facility] Diagnosis Sternal pain- Primary Chest pain, unspecified Left-sided chest pain [facility] Diagnosis Age-related physical debility- Primary Senility without mention of psychosis [facility] Diagnosis Nausea- Primary Nausea alone Bradycardia Other specified cardiac dysrhythmias Decreased appetite Anorexia [facility]* Diagnosis Sepsis, due to unspecified organism, unspecified whether acute organ dysfunction present (HCC)- Primary Acute cystitis without hematuria Acute cystitis Urinary frequency Bradycardia Other specified cardiac dysrhythmias Other specified hypotension AV block, 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 [facility] Diagnosis Acute cystitis without hematuria- Primary Acute cystitis Other specified hypotension Bradycardia Other specified cardiac dysrhythmias AV block, 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, uncomplicated Acute gastric ulcer without hemorrhage or perforation Acute gastric ulcer without mention of hemorrhage, perforation, or obstruction Iron deficiency anemia, unspecified iron deficiency anemia type Decreased appetite Anorexia Depression, unspecified depression type Hospital discharge follow-up Other follow-up examination documented in this encounter [facility] note* Diagnosis 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)- Primary Grief reaction Adjustment disorder with depressed mood Senile dementia (HCC) Senile dementia, uncomplicated Stage 3a chronic kidney disease (HCC) Chronic insomnia Insomnia, unspecified Primary osteoarthritis, unspecified site documented in this encounter [facility] note* Diagnosis Acute left-sided low back pain without sciatica- Primary documented in this encounter [facility] note* Diagnosis Acute left-sided low back pain without sciatica- Primary At high risk for falls Personal history of fall 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) Grief reaction Adjustment disorder with depressed mood Senile dementia (HCC) Senile dementia, uncomplicated Stage 3a chronic kidney disease (HCC) documented in this encounter [facility] note* Diagnosis Essential hypertension- Primary Unspecified essential hypertension Senile dementia (HCC) Senile dementia, uncomplicated Depression, unspecified depression type Benign prostatic hyperplasia with nocturia Gastroesophageal reflux disease, unspecified whether esophagitis present documented in this encounter [facility] note* Diagnosis Nausea Nausea alone documented in this encounter [facility] note* Diagnosis Pain in right upper arm Fall, initial encounter documented in this encounter [facility] note* Diagnosis Fall, initial encounter documented in this encounter [facility] for referral (narrative)* Diagnostic Procedure Only (Routine) - Closed Specialty Diagnoses / Procedures Referred By Ryne osborn Referred To Contact US IMAGING Diagnoses Elevated alkaline phosphatase level Procedures US ABD RT UPPER QUADRANT US ABDOMINAL REAL TIME W/IMAGE LIMITED Jordan Johnson MD [address] [place] [id number] Us Imaging Referral ID Status Reason Start Date Expiration Date V isits Requested Visits Authorized [id number] Closed Auto-Generate d Referral 12/18/2021 01/17/2023 1 1 [facility] for referral (narrative)* Outpatient Procedure (Urgent) - Pending Review Specialty Diagnoses / Procedures Referred By Contcatrachita t Referred To [facility] Diagnoses Bilateral lower extremity edema Elevated brain natriuretic peptide (BNP) level Procedures ECHO ECHO TTHRC R-T 2D W/WOM-MODE COMPL SPEC&COLR D Jordan Johnson MD [address] [place] [address] [facility] [address] [address] Referral ID Status Reason Start Date Expiration Date Visits Requested Visits Authorized [id number] Pending Review Auto-Generat ed Referral 04/17/2023 1 1 [facility] for referral (narrative)* Diagnostic Procedure Only (Urgent) - Closed Specialty Diagnoses / Procedures Referred By Contac t Referred To Contact XR IMAGING Diagnoses Pain in right upper arm Fall, initial encounter Procedures XR HUMERUS 2V AP/LAT RIGHT RADEX HUMERUS MINIMUM 2 VIEWS Selene Hauser APRN.PHARMACY ANALYST [address] [place] [address] Xr Imaging Referral ID Status Reason Start Date Expiration Date V isits Requested Visits Authorized [id number] Closed Auto-Generate d Referral 09/30/2022 10/30/2023 1 1 [facility] for referral (narrative)* Outpatient Procedure (Routine) - Closed Specialty Diagnoses / Procedures Referred By Contac t Referred To Contact [facility] [place] Diagnoses Bradycardia Procedures ECG COMPLETE ECG ROUTINE ECG W/LEAST 12 LDS W/I&R Fabby Moore APRN.CNP [address] [place] [address] [facility] [address] [address] Referral ID Status Reason Start Date Expiration Date V isits Requested Visits Authorized [id number] Closed Auto-Generate d Referral 01/29/2023 01/29/2024 1 1 * Diagnostic Procedure Only (Urgent) - Closed Specialty Diagnoses / Procedures Referred By Contac t Referred To Contact XR IMAGING Diagnoses Nausea Decreased appetite Procedures XR ABDOMEN 1V SUPINE RADIOLOGIC EXAM ABDOMEN 1 VIEW Fabby Moore APRN.CNP [address] [place] [address] [place] [address] Referral ID Status Reason Start Date Expiration Date V isits Requested Visits Authorized [id number] Closed Auto-Generate d Referral 01/29/2023 02/28/2024 1 1 [facility] for referral (narrative)* Outpatient Procedure (Routine) - Pending Review Specialty Diagnoses / Procedures Referred By Contac t Referred To [facility] Diagnoses Bradycardia Procedures ECG COMPLETE ECG ROUTINE ECG W/LEAST 12 LDS W/I&R Jordan Johnson MD [address] [place] [address] [facility] [place] [address] [place] [address] Referral ID Status Reason Start Date Expiration Date Visits Requested Visits Authorized [id number] Pending Review Auto-Generat ed Referral 02/04/2023 02/04/2024 1 1 [facility] for referral (narrative)* Diagnostic Procedure Only (Routine) - Pending Review Specialty Diagnoses / Procedures Referred By Contac t Referred To Contact XR IMAGING Diagnoses Acute left-sided low back pain without sciatica Procedures XR LUMBAR GENERAL 3V AP/LAT/L5-S1 RADEX SPINE LUMBOSACRAL 2/3 VIEWS PodlogFabby christopher APRN.PHARMACY ANALYST [address] [place] [address] [place] [address] Referral ID Status Reason Start Date Expiration Date Visits Requested Visits Authorized [id number] Pending Review Auto-Generat ed Referral 06/17/2024 1 1 [facility] for referral (narrative)* Diagnostic Procedure Only (Urgent) - Closed Specialty Diagnoses / Procedures Referred By Contac t Referred To Contact XR IMAGING Diagnoses Nausea Decreased appetite Procedures XR ABDOMEN 1V SUPINE RADIOLOGIC EXAM ABDOMEN 1 VIEW Fabby Moore APRN.PHARMACY ANALYST [address] [place] [address] [place] [address] Referral ID Status Reason Start Date Expiration Date V isits Requested Visits Authorized [id number] Closed Auto-Generate d Referral 01/29/2023 02/28/2024 1 1 [facility] for referral (narrative)* Diagnostic Procedure Only (Urgent) - Closed Specialty Diagnoses / Procedures Referred By Contac t Referred To Contact XR IMAGING Diagnoses Pain in right upper arm Fall, initial encounter Procedures XR HUMERUS 2V AP/LAT RIGHT RADEX HUMERUS MINIMUM 2 VIEWS Selene Hauser APRN.PHARMACY ANALYST [address] [place] [address] [place] [address] Referral ID Status Reason Start Date Expiration Date V isits Requested Visits Authorized [id number] Closed Auto-Generate d Referral 09/30/2022 10/30/2023 1 1 [facility] for visit Narrative* Diagnostic Procedure Only (Routine) - Closed Specialty Diagnoses / Procedures Referred By Contac t Referred To Contact US IMAGING Diagnoses Elevated alkaline phosphatase level Procedures US ABD RT UPPER QUADRANT US ABDOMINAL REAL TIME W/IMAGE LIMITED Jordan Johnson MD [address] [place] [address] Us Imaging Referral ID Status Reason Start Date Expiration Date V isits Requested Visits Authorized [id number] Closed Auto-Generate d Referral 12/18/2021 01/17/2023 1 1 [facility] for visit Narrative* Diagnostic Procedure Only (Urgent) - Closed Specialty Diagnoses / Procedures Referred By Contac t Referred To Contact XR IMAGING Diagnoses Nausea Decreased appetite Procedures XR ABDOMEN 1V SUPINE RADIOLOGIC EXAM ABDOMEN 1 VIEW Fabby Moore APRN.PHARMACY ANALYST [address] [place] [address] [place] [address] Referral ID Status Reason Start Date Expiration Date V isits Requested Visits Authorized [id number] Closed Auto-Generate d Referral 01/29/2023 02/28/2024 1 1 [facility] Diagnostic Procedure Only (Urgent) - Closed Specialty Diagnoses / Procedures Referred By Contac t Referred To Contact XR IMAGING Diagnoses Pain in right upper arm Fall, initial encounter Procedures XR HUMERUS 2V AP/LAT RIGHT RADEX HUMERUS MINIMUM 2 VIEWS Selene Hauser, SCAFFOLD SETTER.PHARMACY ANALYST [address] [place] [address] [place] [address] Referral ID Status Reason Start Date Expiration Date V isits Requested Visits Authorized [id number] Closed Auto-Generate d Referral 09/30/2022 10/30/2023 1 1 [facility] Advance Directives Documents on File Type Date Recorded 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 Advance Directive(s) 11/17/2010 2:36 PM Documents on File Type Date Recorded 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 Advance Directive(s) 11/17/2010 2:36 PM Reason for Referral Specialty Diagnoses / Procedures Referred By Contac t Referred To Contact [facility] Diagnoses Acute pain of left shoulder Procedures CONSULT TO PHYSICAL THERAPY PHYSICAL THERAPY EVALUATION HIGH COMPLEX 45 MINS Jordan Johnson MD [address] [place] [address] [facility] [address] [place] [address] Referral ID Status Reason Start Date Expiration Date Visits Requested Visits Authorized [id number] Pending Review Auto-Generat ed Referral 05/12/2022 05/12/2023 1 1 Specialty Diagnoses / Procedures Referred By Contac t Referred To Contact Nephrology Diagnoses Stage 3a chronic kidney disease (HCC) Hyponatremia Procedures CONSULT TO NEPHROLOGY OFFICE/OUTPATIENT NEW HIGH MDM 60-74 MINUTES Jordan Johnson MD [address] [place] [address] Referral ID Status Reason Start Date Expiration Date Visits Requested Visits Authorized [id number] Authorized PCP Requested Referral 06/15/2022 06/15/2023 1 1 Specialty Diagnoses / Procedures Referred By Ryne t Referred To Contact [facility] Diagnoses At high risk for falls Age-related physical debility Procedures CONSULT TO PHYSICAL THERAPY PHYSICAL THERAPY EVALUATION HIGH COMPLEX 45 MINS Jordan Johnson MD [address] [place] [address] [facility] [address] [place] [address] Referral ID Status Reason Start Date Expiration Date Visits Requested Visits Authorized [id number] Pending Review Auto-Generat ed Referral 10/01/2022 10/01/2023 1 1 Summary Purpose Family History No Family History Records FoundNo Family History Records Found Additional Source Comments Source Comments (unrecognize d section and content) In the event this informatio n is protected by the Federal Confidentiality of Alcohol and Drug Abuse Patient Records regulations: The Federal rules restrict any use of the information to criminally investigate or prosecute any alcohol or drug abuse patient.[facility] the event this information is protected by the Federal Confidentiality of Alcohol and Drug Abuse Patient Records regulations: The Federal rules restrict any use of the information to criminally investigate or prosecute any alcohol or drug abuse patient.[facility] the event this information is protected by the Federal Confidentiality of Alcohol and Drug Abuse Patient Records regulations: The Federal rules restrict any use of the information to criminally investigate or prosecute any alcohol or drug abuse patient.[facility] the event this information is protected by the Federal Confidentiality of Alcohol and Drug Abuse Patient Records regulations: The Federal rules restrict any use of the information to criminally investigate or prosecute any alcohol or drug abuse patient.[facility] the event this information is protected by the Federal Confidentiality of Alcohol and Drug Abuse Patient Records regulations: The Federal rules restrict any use of the information to criminally investigate or prosecute any alcohol or drug abuse patient.[facility] the event this information is protected by the Federal Confidentiality of Alcohol and Drug Abuse Patient Records regulations: The Federal rules restrict any use of the information to criminally investigate or prosecute any alcohol or drug abuse patient.[facility] the event this information is protected by the Federal Confidentiality of Alcohol and Drug Abuse Patient Records regulations: The Federal rules restrict any use of the information to criminally investigate or prosecute any alcohol or drug abuse patient.[facility] the event this information is protected by the Federal Confidentiality of Alcohol and Drug Abuse Patient Records regulations: The Federal rules restrict any use of the information to criminally investigate or prosecute any alcohol or drug abuse patient.[facility] the event this information is protected by the Federal Confidentiality of Alcohol and Drug Abuse Patient Records regulations: The Federal rules restrict any use of the information to criminally investigate or prosecute any alcohol or drug abuse patient.[facility] the event this information is protected by the Federal Confidentiality of Alcohol and Drug Abuse Patient Records regulations: The Federal rules restrict any use of the information to criminally investigate or prosecute any alcohol or drug abuse patient.[facility] the event this information is protected by the Federal Confidentiality of Alcohol and Drug Abuse Patient Records regulations: The Federal rules restrict any use of the information to criminally investigate or prosecute any alcohol or drug abuse patient.[facility] the event this information is protected by the Federal Confidentiality of Alcohol and Drug Abuse Patient Records regulations: The Federal rules restrict any use of the information to criminally investigate or prosecute any alcohol or drug abuse patient.[facility] the event this information is protected by the Federal Confidentiality of Alcohol and Drug Abuse Patient Records regulations: The Federal rules restrict any use of the information to criminally investigate or prosecute any alcohol or drug abuse patient.[facility] the event this information is protected by the Federal Confidentiality of Alcohol and Drug Abuse Patient Records regulations: The Federal rules restrict any use of the information to criminally investigate or prosecute any alcohol or drug abuse patient.[facility] the event this information is protected by the Federal Confidentiality of Alcohol and Drug Abuse Patient Records regulations: The Federal rules restrict any use of the information to criminally investigate or prosecute any alcohol or drug abuse patient.[facility] the event this information is protected by the Federal Confidentiality of Alcohol and Drug Abuse Patient Records regulations: The Federal rules restrict any use of the information to criminally investigate or prosecute any alcohol or drug abuse patient.[facility] the event this information is protected by the Federal Confidentiality of Alcohol and Drug Abuse Patient Records regulations: The Federal rules restrict any use of the information to criminally investigate or prosecute any alcohol or drug abuse patient.[facility] HospitalIn the event this information is protected by the Federal Confidentiality of Alcohol and Drug Abuse Patient Records regulations: The Federal rules restrict any use of the information to criminally investigate or prosecute any alcohol or drug abuse patient.[facility] HospitalIn the event this information is protected by the Federal Confidentiality of Alcohol and Drug Abuse Patient Records regulations: The Federal rules restrict any use of the information to criminally investigate or prosecute any alcohol or drug abuse patient.[facility] HospitalIn the event this information is protected by the Federal Confidentiality of Alcohol and Drug Abuse Patient Records regulations: The Federal rules restrict any use of the information to criminally investigate or prosecute any alcohol or drug abuse patient.[facility] HospitalIn the event this information is protected by the Federal Confidentiality of Alcohol and Drug Abuse Patient Records regulations: The Federal rules restrict any use of the information to criminally investigate or prosecute any alcohol or drug abuse patient.[facility] HospitalIn the event this information is protected by the Federal Confidentiality of Alcohol and Drug Abuse Patient Records regulations: The Federal rules restrict any use of the information to criminally investigate or prosecute any alcohol or drug abuse patient.[facility] HospitalIn the event this information is protected by the Federal Confidentiality of Alcohol and Drug Abuse Patient Records regulations: The Federal rules restrict any use of the information to criminally investigate or prosecute any alcohol or drug abuse patient.[facility] HospitalIn the event this information is protected by the Federal Confidentiality of Alcohol and Drug Abuse Patient Records regulations: The Federal rules restrict any use of the information to criminally investigate or prosecute any alcohol or drug abuse patient.[facility] HospitalIn the event this information is protected by the Federal Confidentiality of Alcohol and Drug Abuse Patient Records regulations: The Federal rules restrict any use of the information to criminally investigate or prosecute any alcohol or drug abuse patient.[facility] HospitalIn the event this information is protected by the Federal Confidentiality of Alcohol and Drug Abuse Patient Records regulations: The Federal rules restrict any use of the information to criminally investigate or prosecute any alcohol or drug abuse patient.[facility] HospitalIn the event this information is protected by the Federal Confidentiality of Alcohol and Drug Abuse Patient Records regulations: The Federal rules restrict any use of the information to criminally investigate or prosecute any alcohol or drug abuse patient.[facility] HospitalIn the event this information is protected by the Federal Confidentiality of Alcohol and Drug Abuse Patient Records regulations: The Federal rules restrict any use of the information to criminally investigate or prosecute any alcohol or drug abuse patient.[facility] HospitalIn the event this information is protected by the Federal Confidentiality of Alcohol and Drug Abuse Patient Records regulations: The Federal rules restrict any use of the information to criminally investigate or prosecute any alcohol or drug abuse patient.[facility] HospitalIn the event this information is protected by the Federal Confidentiality of Alcohol and Drug Abuse Patient Records regulations: The Federal rules restrict any use of the information to criminally investigate or prosecute any alcohol or drug abuse patient.[facility] HospitalIn the event this information is protected by the Federal Confidentiality of Alcohol and Drug Abuse Patient Records regulations: The Federal rules restrict any use of the information to criminally investigate or prosecute any alcohol or drug abuse patient.[facility] HospitalIn the event this information is protected by the Federal Confidentiality of Alcohol and Drug Abuse Patient Records regulations: The Federal rules restrict any use of the information to criminally investigate or prosecute any alcohol or drug abuse patient.[facility] HospitalIn the event this information is protected by the Federal Confidentiality of Alcohol and Drug Abuse Patient Records regulations: The Federal rules restrict any use of the information to criminally investigate or prosecute any alcohol or drug abuse patient.[facility] HospitalIn the event this information is protected by the Federal Confidentiality of Alcohol and Drug Abuse Patient Records regulations: The Federal rules restrict any use of the information to criminally investigate or prosecute any alcohol or drug abuse patient.[facility] HospitalIn the event this information is protected by the Federal Confidentiality of Alcohol and Drug Abuse Patient Records regulations: The Federal rules restrict any use of the information to criminally investigate or prosecute any alcohol or drug abuse patient.[facility] HospitalIn the event this information is protected by the Federal Confidentiality of Alcohol and Drug Abuse Patient Records regulations: The Federal rules restrict any use of the information to criminally investigate or prosecute any alcohol or drug abuse patient.[facility] HospitalIn the event this information is protected by the Federal Confidentiality of Alcohol and Drug Abuse Patient Records regulations: The Federal rules restrict any use of the information to criminally investigate or prosecute any alcohol or drug abuse patient.[facility] HospitalIn the event this information is protected by the Federal Confidentiality of Alcohol and Drug Abuse Patient Records regulations: The Federal rules restrict any use of the information to criminally investigate or prosecute any alcohol or drug abuse patient.[facility] HospitalIn the event this information is protected by the Federal Confidentiality of Alcohol and Drug Abuse Patient Records regulations: The Federal rules restrict any use of the information to criminally investigate or prosecute any alcohol or drug abuse patient.[facility] HospitalIn the event this information is protected by the Federal Confidentiality of Alcohol and Drug Abuse Patient Records regulations: The Federal rules restrict any use of the information to criminally investigate or prosecute any alcohol or drug abuse patient.[facility] HospitalIn the event this information is protected by the Federal Confidentiality of Alcohol and Drug Abuse Patient Records regulations: The Federal rules restrict any use of the information to criminally investigate or prosecute any alcohol or drug abuse patient.[facility] HospitalIn the event this information is protected by the Federal Confidentiality of Alcohol and Drug Abuse Patient Records regulations: The Federal rules restrict any use of the information to criminally investigate or prosecute any alcohol or drug abuse patient.[facility] HospitalIn the event this information is protected by the Federal Confidentiality of Alcohol and Drug Abuse Patient Records regulations: The Federal rules restrict any use of the information to criminally investigate or prosecute any alcohol or drug abuse patient.[facility] HospitalIn the event this information is protected by the Federal Confidentiality of Alcohol and Drug Abuse Patient Records regulations: The Federal rules restrict any use of the information to criminally investigate or prosecute any alcohol or drug abuse patient.[facility] HospitalIn the event this information is protected by the Federal Confidentiality of Alcohol and Drug Abuse Patient Records regulations: The Federal rules restrict any use of the information to criminally investigate or prosecute any alcohol or drug abuse patient.[facility] HospitalIn the event this information is protected by the Federal Confidentiality of Alcohol and Drug Abuse Patient Records regulations: The Federal rules restrict any use of the information to criminally investigate or prosecute any alcohol or drug abuse patient.[facility] HospitalIn the event this information is protected by the Federal Confidentiality of Alcohol and Drug Abuse Patient Records regulations: The Federal rules restrict any use of the information to criminally investigate or prosecute any alcohol or drug abuse patient.[facility] HospitalIn the event this information is protected by the Federal Confidentiality of Alcohol and Drug Abuse Patient Records regulations: The Federal rules restrict any use of the information to criminally investigate or prosecute any alcohol or drug abuse patient.[facility] HospitalIn the event this information is protected by the Federal Confidentiality of Alcohol and Drug Abuse Patient Records regulations: The Federal rules restrict any use of the information to criminally investigate or prosecute any alcohol or drug abuse patient.[facility] HospitalIn the event this information is protected by the Federal Confidentiality of Alcohol and Drug Abuse Patient Records regulations: The Federal rules restrict any use of the information to criminally investigate or prosecute any alcohol or drug abuse patient.[facility] HospitalIn the event this information is protected by the Federal Confidentiality of Alcohol and Drug Abuse Patient Records regulations: The Federal rules restrict any use of the information to criminally investigate or prosecute any alcohol or drug abuse patient.[facility] HospitalIn the event this information is protected by the Federal Confidentiality of Alcohol and Drug Abuse Patient Records regulations: The Federal rules restrict any use of the information to criminally investigate or prosecute any alcohol or drug abuse patient.[facility] HospitalIn the event this information is protected by the Federal Confidentiality of Alcohol and Drug Abuse Patient Records regulations: The Federal rules restrict any use of the information to criminally investigate or prosecute any alcohol or drug abuse patient.[facility] HospitalIn the event this information is protected by the Federal Confidentiality of Alcohol and Drug Abuse Patient Records regulations: The Federal rules restrict any use of the information to criminally investigate or prosecute any alcohol or drug abuse patient.[facility] HospitalIn the event this information is protected by the Federal Confidentiality of Alcohol and Drug Abuse Patient Records regulations: The Federal rules restrict any use of the information to criminally investigate or prosecute any alcohol or drug abuse patient.[facility] HospitalIn the event this information is protected by the Federal Confidentiality of Alcohol and Drug Abuse Patient Records regulations: The Federal rules restrict any use of the information to criminally investigate or prosecute any alcohol or drug abuse patient.[facility] HospitalIn the event this information is protected by the Federal Confidentiality of Alcohol and Drug Abuse Patient Records regulations: The Federal rules restrict any use of the information to criminally investigate or prosecute any alcohol or drug abuse patient.[facility] HospitalIn the event this information is protected by the Federal Confidentiality of Alcohol and Drug Abuse Patient Records regulations: The Federal rules restrict any use of the information to criminally investigate or prosecute any alcohol or drug abuse patient.[facility] HospitalIn the event this information is protected by the Federal Confidentiality of Alcohol and Drug Abuse Patient Records regulations: The Federal rules restrict any use of the information to criminally investigate or prosecute any alcohol or drug abuse patient.[facility] HospitalIn the event this information is protected by the Federal Confidentiality of Alcohol and Drug Abuse Patient Records regulations: The Federal rules restrict any use of the information to criminally investigate or prosecute any alcohol or drug abuse patient.[facility] HospitalIn the event this information is protected by the Federal Confidentiality of Alcohol and Drug Abuse Patient Records regulations: The Federal rules restrict any use of the information to criminally investigate or prosecute any alcohol or drug abuse patient.[facility] HospitalIn the event this information is protected by the Federal Confidentiality of Alcohol and Drug Abuse Patient Records regulations: The Federal rules restrict any use of the information to criminally investigate or prosecute any alcohol or drug abuse patient.[facility] HospitalIn the event this information is protected by the Federal Confidentiality of Alcohol and Drug Abuse Patient Records regulations: The Federal rules restrict any use of the information to criminally investigate or prosecute any alcohol or drug abuse patient.[facility] HospitalIn the event this information is protected by the Federal Confidentiality of Alcohol and Drug Abuse Patient Records regulations: The Federal rules restrict any use of the information to criminally investigate or prosecute any alcohol or drug abuse patient.[facility] HospitalIn the event this information is protected by the Federal Confidentiality of Alcohol and Drug Abuse Patient Records regulations: The Federal rules restrict any use of the information to criminally investigate or prosecute any alcohol or drug abuse patient.[facility] HospitalIn the event this information is protected by the Federal Confidentiality of Alcohol and Drug Abuse Patient Records regulations: The Federal rules restrict any use of the information to criminally investigate or prosecute any alcohol or drug abuse patient.[facility] HospitalIn the event this information is protected by the Federal Confidentiality of Alcohol and Drug Abuse Patient Records regulations: The Federal rules restrict any use of the information to criminally investigate or prosecute any alcohol or drug abuse patient.[facility] HospitalIn the event this information is protected by the Federal Confidentiality of Alcohol and Drug Abuse Patient Records regulations: The Federal rules restrict any use of the information to criminally investigate or prosecute any alcohol or drug abuse patient.[facility] HospitalIn the event this information is protected by the Federal Confidentiality of Alcohol and Drug Abuse Patient Records regulations: The Federal rules restrict any use of the information to criminally investigate or prosecute any alcohol or drug abuse patient.[facility] HospitalIn the event this information is protected by the Federal Confidentiality of Alcohol and Drug Abuse Patient Records regulations: The Federal rules restrict any use of the information to criminally investigate or prosecute any alcohol or drug abuse patient.[facility] HospitalIn the event this information is protected by the Federal Confidentiality of Alcohol and Drug Abuse Patient Records regulations: The Federal rules restrict any use of the information to criminally investigate or prosecute any alcohol or drug abuse patient.[facility] HospitalIn the event this information is protected by the Federal Confidentiality of Alcohol and Drug Abuse Patient Records regulations: The Federal rules restrict any use of the information to criminally investigate or prosecute any alcohol or drug abuse patient.[facility] HospitalIn the event this information is protected by the Federal Confidentiality of Alcohol and Drug Abuse Patient Records regulations: The Federal rules restrict any use of the information to criminally investigate or prosecute any alcohol or drug abuse patient.[facility] HospitalIn the event this information is protected by the Federal Confidentiality of Alcohol and Drug Abuse Patient Records regulations: The Federal rules restrict any use of the information to criminally investigate or prosecute any alcohol or drug abuse patient.[facility] HospitalIn the event this information is protected by the Federal Confidentiality of Alcohol and Drug Abuse Patient Records regulations: The Federal rules restrict any use of the information to criminally investigate or prosecute any alcohol or drug abuse patient.[facility] HospitalIn the event this information is protected by the Federal Confidentiality of Alcohol and Drug Abuse Patient Records regulations: The Federal rules restrict any use of the information to criminally investigate or prosecute any alcohol or drug abuse patient.[facility] HospitalIn the event this information is protected by the Federal Confidentiality of Alcohol and Drug Abuse Patient Records regulations: The Federal rules restrict any use of the information to criminally investigate or prosecute any alcohol or drug abuse patient.[facility] HospitalIn the event this information is protected by the Federal Confidentiality of Alcohol and Drug Abuse Patient Records regulations: The Federal rules restrict any use of the information to criminally investigate or prosecute any alcohol or drug abuse patient.[facility] HospitalIn the event this information is protected by the Federal Confidentiality of Alcohol and Drug Abuse Patient Records regulations: The Federal rules restrict any use of the information to criminally investigate or prosecute any alcohol or drug abuse patient.[facility] HospitalIn the event this information is protected by the Federal Confidentiality of Alcohol and Drug Abuse Patient Records regulations: The Federal rules restrict any use of the information to criminally investigate or prosecute any alcohol or drug abuse patient.[facility] HospitalIn the event this information is protected by the Federal Confidentiality of Alcohol and Drug Abuse Patient Records regulations: The Federal rules restrict any use of the information to criminally investigate or prosecute any alcohol or drug abuse patient.[facility] HospitalIn the event this information is protected by the Federal Confidentiality of Alcohol and Drug Abuse Patient Records regulations: The Federal rules restrict any use of the information to criminally investigate or prosecute any alcohol or drug abuse patient.[facility] HospitalIn the event this information is protected by the Federal Confidentiality of Alcohol and Drug Abuse Patient Records regulations: The Federal rules restrict any use of the information to criminally investigate or prosecute any alcohol or drug abuse patient.[facility] HospitalIn the event this information is protected by the Federal Confidentiality of Alcohol and Drug Abuse Patient Records regulations: The Federal rules restrict any use of the information to criminally investigate or prosecute any alcohol or drug abuse patient.[facility] HospitalIn the event this information is protected by the Federal Confidentiality of Alcohol and Drug Abuse Patient Records regulations: The Federal rules restrict any use of the information to criminally investigate or prosecute any alcohol or drug abuse patient.[facility] HospitalIn the event this information is protected by the Federal Confidentiality of Alcohol and Drug Abuse Patient Records regulations: The Federal rules restrict any use of the information to criminally investigate or prosecute any alcohol or drug abuse patient.[facility] Care Teams (unrecognized sec tion and content) State Auditor Relationship Specialty Start Date End Date Jordan Johnson MD [address] [place], [place] [id number] PCP - General Family Practice 03/27/16 State Auditor Relationship Specialty Start Date End Date Jordan Johnson MD [address] [place], [place] [id number] PCP - General Family Practice 03/27/16 State Auditor Relationship Specialty Start Date End Date Jordan Johnson MD [address] [place] [address] PCP - General Family Practice 03/27/16 State Auditor Relationship Specialty Start Date End Date Jordan Johnson MD [address] [place] [address] PCP - General Family Practice 03/27/16 State Auditor Relationship Specialty Start Date End Date Jordan Johnson MD [address] [place] [address] PCP - General Family Practice 03/27/16 State Auditor Relationship Specialty Start Date End Date Jordan Johnson MD [address] [place] [address] PCP - General Family Practice 03/27/16 State Auditor Relationship Specialty Start Date End Date Jordan Johnson MD [address] [place] [address] PCP - General Family Practice 03/27/16 State Auditor Relationship Specialty Start Date End Date Jordan Johnson MD [address] [place] [address] PCP - General Family Practice 03/27/16 State Auditor Relationship Specialty Start Date End Date Jordan Johnson MD [address] [place] [address] PCP - General Family Practice 03/27/16 State Auditor Relationship Specialty Start Date End Date Jordan Johnson MD [address] [place] [address] PCP - General Family Medicine 03/27/16 State Auditor Relationship Specialty Start Date End Date Jordan Johnson MD [address] [place] [address] PCP - General Family Medicine 03/27/16 State Auditor Relationship Specialty Start Date End Date Jordan Johnson MD [address] [place] [address] PCP - General Family Medicine 03/27/16 State Auditor Relationship Specialty Start Date End Date Jordan Johnson MD [address] [place] [address] PCP - General Family Medicine 03/27/16 State Auditor Relationship Specialty Start Date End Date Jordan Johnson MD [address] [place] [address] PCP - General Family Medicine 03/27/16 State Auditor Relationship Specialty Start Date End Date Jordan Johnson MD [address] [place] [address] PCP - General Family Medicine 03/27/16 State Auditor Relationship Specialty Start Date End Date Jordan Johnson MD [address] [place] [address] PCP - General Family Medicine 03/27/16 State Auditor Relationship Specialty Start Date End Date Jordan Johnson MD [address] [place] [address] PCP - General Family Medicine 03/27/16 State Auditor Relationship Specialty Start Date End Date Jordan Johnson MD [address] [place] [address] PCP - General Family Medicine 03/27/16 State Auditor Relationship Specialty Start Date End Date Jordan Johnson MD [address] [place] [address] PCP - General Family Medicine 03/27/16 State Auditor Relationship Specialty Start Date End Date Jordan Johnson MD [address] [place] [address] PCP - General Family Medicine 03/27/16 State Auditor Relationship Specialty Start Date End Date Jordan Johnson MD [address] [place] [address] PCP - General Family Medicine 03/27/16 State Auditor Relationship Specialty Start Date End Date Jordan Johnson MD [address] [place] [address] PCP - General Family Medicine 03/27/16 State Auditor Relationship Specialty Start Date End Date Jordan Johnson MD [address] [place] [address] PCP - General Family Medicine 03/27/16 State Auditor Relationship Specialty Start Date End Date Jordan Johnson MD [address] [place] [address] PCP - General Family Medicine 03/27/16 State Auditor Relationship Specialty Start Date End Date Jordan Johnson MD [address] [place] [address] PCP - General Family Medicine 03/27/16 State Auditor Relationship Specialty Start Date End Date Jordan Johnson MD [address] [place] [address] PCP - General Family Medicine 03/27/16 State Auditor Relationship Specialty Start Date End Date Jordan Johnson MD [address] [place] [address] PCP - General Family Medicine 03/27/16 State Auditor Relationship Specialty Start Date End Date Jordan Johnson MD [address] [place] [address] PCP - General Family Medicine 03/27/16 State Auditor Relationship Specialty Start Date End Date Jordan Johnson MD [address] [place] [address] PCP - General Family Medicine 03/27/16 State Auditor Relationship Specialty Start Date End Date Jordan Johnson MD [address] [place] [address] PCP - General Family Medicine 03/27/16 State Auditor Relationship Specialty Start Date End Date Jordan Johnson MD [address] [place] [address] PCP - General Family Medicine 03/27/16 State Auditor Relationship Specialty Start Date End Date Jordan Johnson MD [address] [place] [address] PCP - General Family Medicine 03/27/16 State Auditor Relationship Specialty Start Date End Date Jordan Johnson MD [address] [place] [address] PCP - General Family Medicine 03/27/16 State Auditor Relationship Specialty Start Date End Date Jordan Johnson MD [address] [place] [address] PCP - General Family Medicine 03/27/16 Maddi France DO [address] [place] [address] Referring Internal Medicine 12/31/22 Jordan Johnson MD [address] [place] [address] Home Care Provider Family Medicine 12/31/22 State Auditor Relationship Specialty Start Date End Date Jordan Johnson MD [address] [place] [address] PCP - General Family Medicine 03/27/16 Maddi France DO [address] [facility] [place], [place] [id number] Referring Internal Medicine 12/31/22 Jordan Johnson MD [address] [place] [address] Home Care Provider Family Medicine 12/31/22 State Auditor Relationship Specialty Start Date End Date Jordan Johnson MD [address] [place] [address] PCP - General Family Medicine 03/27/16 Maddi France DO [address] [facility] [place], [place] [phone] Referring Internal Medicine 12/31/22 Jordan Johnson MD [address] [place] [address] Home Care Provider Family Medicine 12/31/22 State Auditor Relationship Specialty Start Date End Date Jordan Johnson MD [address] [place] [address] PCP - General Family Medicine 03/27/16 Edy Garcias, RN [address] [place] [address] Primary Care Used Car Lot Attendant Internal Medicine 12/29/22 12/29/22 Maddi France DO [address] [facility] [facility] [place], [place] [id number] Referring Internal Medicine 12/31/22 Jordan Johnson MD [address] [place], [place] 035891 Home Care Provider Family Medicine 12/31/22 State Auditor Relationship Specialty Start Date End Date Jordan Johnson MD [address] [place], [place] [address]2311 PCP - General Family Medicine 03/27/16 Maddi France DO [address] [place], [place] [id number] Referring Internal Medicine 12/31/22 Jordan Johnson MD [address] [place], [place] 345898 [phone] Home Care Provider Family Medicine 12/31/22 State Auditor Relationship Specialty Start Date End Date Jordan Johnson MD [address] [place], [place] 470855 [phone] PCP - General Family Medicine 03/27/16 Maddi France DO [address] [place], [place] [phone] Referring Internal Medicine 12/31/22 Jordan Johnson MD [address] [place] [address] Home Care Provider Family Medicine 12/31/22 State Auditor Relationship Specialty Start Date End Date Jordan Johnson MD [address] [place] [address] PCP - General Family Medicine 03/27/16 Maddi France DO [address] [place], [place] [phone] Referring Internal Medicine 12/31/22 Jordan Johnson MD [address] [place], [place] 494091 Home Care Provider Family Medicine 12/31/22 State Auditor Relationship Specialty Start Date End Date Jordan Johnson MD [address] [place], [place] [id number] PCP - General Family Medicine 03/27/16 Maddi France DO [address] [place], [place] [id number] Referring Internal Medicine 12/31/22 Jordan Johnson MD [address] [place], [place] 795066 [phone] Home Care Provider Family Medicine 12/31/22 Nathaly Spivey, KATARZYNA [address] [place], [place] [phone] Physician Office Assistant 02/04/23 State Auditor Relationship Specialty Start Date End Date Jordan Johnson MD [address] [place], [place] 704960 [phone] PCP - General Family Medicine 03/27/16 Maddi France DO [address] [place], [place] [phone] Referring Internal Medicine 12/31/22 Jordan Johnson MD [address] [place], [place] [id number] [phone] Home Care Provider Family Medicine 12/31/22 Nathaly Spivey, KATARZYNA [address] [place], [place] [phone] Physician Office Assistant 02/04/23 State Auditor Relationship Specialty Start Date End Date Jordan Johnson MD [address] [place] [address] PCP - General Family Medicine 03/27/16 Maddi France DO [address] [place], [place] [phone] Referring Internal Medicine 12/31/22 Jordan Johnson MD [address] [place] [address] Home Care Provider Family Medicine 12/31/22 [place] [address] [place], [place] [phone] Physician Office Assistant 02/04/23 State Auditor Relationship Specialty Start Date End Date Jordan Johnson MD [address] [place] [address] PCP - General Family Medicine 03/27/16 Maddi France DO [address] [place] [address] Referring Internal Medicine 12/31/22 Jordan Johnson MD [address] [place] [address] Home Care Provider Family Medicine 12/31/22 [place] [address] [place], [place] [phone] Physician Office Assistant 02/04/23 State Auditor Relationship Specialty Start Date End Date Jordan Johnson MD [address] [place] [address] PCP - General Family Medicine 03/27/16 Maddi France DO [address] [place] [address] Referring Internal Medicine 12/31/22 Jordan Johnson MD [address] [place] [address] Home Care Provider Family Medicine 12/31/22 [place] [address] [place], [place] [phone] Physician Office Assistant 02/04/23 State Auditor Relationship Specialty Start Date End Date Jordan Johnson MD [address] [place] [address] PCP - General Family Medicine 03/27/16 Maddi France DO [address] [place] [address] Referring Internal Medicine 12/31/22 Jordan Johnson MD [address] [place] [address] Home Care Provider Family Medicine 12/31/22 [place] [address] [place], [place] [phone] Physician Office Assistant 02/04/23 State Auditor Relationship Specialty Start Date End Date Jordan Johnson MD [address] [place] [address] PCP - General Family Medicine 03/27/16 Maddi France DO [address] [place] [address] Referring Internal Medicine 12/31/22 Jordan Johnson MD [address] [place] [address] Home Care Provider Family Medicine 12/31/22 Nathaly Spivey, KATARZYNA [address] [place], [place] [phone] Physician Office Assistant 02/04/23 State Auditor Relationship Specialty Start Date End Date Jordan Johnson MD [address] [place] [address] PCP - General Family Medicine 03/27/16 Maddi France DO [address] [place] [address] Referring Internal Medicine 12/31/22 Jordan Johnson MD [address] [place] [address] Home Care Provider Family Medicine 12/31/22 [place] [address] [place] [address] Physician Office Assistant 02/04/23 State Auditor Relationship Specialty Start Date End Date Jordan Johnson MD [address] [place] [address] PCP - General Family Medicine 03/27/16 Maddi France DO [address] [place] [address] Referring Internal Medicine 12/31/22 Jordan Johnson MD [address] [place] [address] Home Care Provider Family Medicine 12/31/22 [place] [address] [place], [place] [phone] Physician Office Assistant 02/04/23 State Auditor Relationship Specialty Start Date End Date Jordan Johnson MD [address] [place] [address] PCP - General Family Medicine 03/27/16 Maddi France DO [address] [facility] [place], [place] [phone] Referring Internal Medicine 12/31/22 Jordan Johnson MD [address] [place] [address] Home Care Provider Family Medicine 12/31/22 [place] [address] [place] [address] Physician Office Assistant 02/04/23 State Auditor Relationship Specialty Start Date End Date Joradn Johnson MD [address] [place] [address] PCP - General Family Medicine 03/27/16 Maddi France DO [address] [place], [place] [phone] Referring Internal Medicine 12/31/22 Jordan Johnson MD [address] [place] [address] Home Care Provider Family Medicine 12/31/22 [place] [address] [address] [place], [place] [phone] Physician Office Assistant 02/04/23 State Auditor Relationship Specialty Start Date End Date Jordan Johnson MD [address] [place], [place] 137551 PCP - General Family Medicine 03/27/16 Maddi France DO [address] [place], [place] [phone] Referring Internal Medicine 12/31/22 Jordan Johnson MD [address] [place], [place] 369898 [phone] Home Care Provider Family Medicine 12/31/22 [place] [address] [place], [place] [phone] Physician Office Assistant 02/04/23 State Auditor Relationship Specialty Start Date End Date Jordan Johnson MD [address] [place] [address] PCP - General Family Medicine 03/27/16 Maddi France DO [address] [place] [address] Referring Internal Medicine 12/31/22 Jordan Johnson MD [address] [place] [address] Home Care Provider Family Medicine 12/31/22 [place] [address] [place], [place] [phone] Physician Office Assistant 02/04/23 State Auditor Relationship Specialty Start Date End Date Jordan Johnson MD [address] [place] [address] PCP - General Family Medicine 03/27/16 Maddi France DO [address] [place], [place] [phone] Referring Internal Medicine 12/31/22 Jordan Johnson MD [address] [place], [place] 184501 Home Care Provider Family Medicine 12/31/22 State Auditor Relationship Specialty Start Date End Date Jordan Johnson MD [address] [place], [place] [phone] PCP - General Family Medicine 03/27/16 Maddi France DO [address] [place], [place] [phone] Referring Internal Medicine 12/31/22 Jordan Johnson MD [address] [place], [place] [phone] Home Care Provider Family Medicine 12/31/22 State Auditor Relationship Specialty Start Date End Date Jordan Johnson MD [address] [place], [place] 224991 PCP - General Family Medicine 03/27/16 State Auditor Relationship Specialty Start Date End Date Jordan Johnson MD [address] [place], [place] [phone] PCP - General Family Medicine 03/27/16 Reason for Visit (unrecogniz ed section and content) Reason Onset Date Comments Refill Request 10/13/2021 Reason Comments F/U 6 Month Reason Comments Results Reason Onset Date Comments Refill Request 12/22/2021 Reason Onset Date Comments Refill Request 02/01/2022 Reason Comments Follow Up ER F/U Right shoulder injur y-due to fall Reason Comments Patient Request Patient Update Reason Onset Date Comments Refill Request 02/25/2022 Reason Onset Date Comments Refill Request 04/13/2022 Reason Comments Leg Edema Reason Comments Results Appointment Reason Comments Patient Question Reason Comments ECHO results Reason Comments Recheck Blood pressure Reason Comments BP Update Reason Onset Date Comments Refill Request 05/14/2022 Reason Comments Physical Therapy Specialty Diagnoses / Procedures Referred By Contac t Referred To Contact [facility] Diagnoses Acute pain of left shoulder Procedures PT REHAB FOLLOW UP ORDER THERAPEUTIC EXERCISES RE, EA 15 MIN. Jordan Johnson MD [address] [place] [address] [facility] [address] [place] [address] Referral ID Status Reason Start Date Expiration Date Visits Requested Visits Authorized [id number] Authorized PCP Requested Referral Auto-Generate d Referral 05/15/2022 06/22/2022 4 4 Reason Onset Date Comments Refill Request 05/24/2022 Reason Comments Follow-up Shoulder Pain Reason Comments Follow Up 6 month Reason Onset Date Comments Refill Request 06/21/2022 Reason Onset Date Comments Refill Request 07/12/2022 Reason Comments Derm Problem Reason Onset Date Comments Refill Request 07/17/2022 Reason Comments Earwax Earwax build up Reason Onset Date Comments Refill Request 09/07/2022 Reason Onset Date Comments Refill Request 09/14/2022 Reason Comments Trauma Right arm/shoulder w ound happened today Reason Comments Follow Up Fell yesterday and w as seen in [facility] for various cuts and scrapes. Reason Onset Date Comments Refill Request 11/08/2022 Reason Comments Refill Request Reason Comments Fall Reason Comments Fall left side chest/shou lder area from fall x 1 day Reason Comments Home Care MD to follow Reason Comments Hospital Follow Up Reason Comments Handicap Placard Reason Onset Date Comments Transition Of Care 12/29/2022 TCM Pharmacy- Hospital discharge 12/28/22 Reason Comments Fill out [facility] POC Forms Reason Comments Medication Review Reason Comments Nausea Unable to eat and dr ink x3 days Reason Onset Date Comments Community Monitoring Outreach 02/03/2023 En rollment CDM Reason Comments Hospital Follow Up Discharged [facility] Gastric Ulcer & polyp Reason Onset Date Comments Transition Of Care 02/09/2023 Discharged fr om [facility] 02/06/23 Reason Comments Appointment Reason Comments Transition Of Care Reason Onset Date Comments [facility] 03/04/2023 Escalation follo w up Reason Onset Date Comments [facility] 03/03/2023 Telephonic Outre ach Reason Onset Date Comments community monitoring outreach 03/18/2023 CD M outreach Reason Comments Anxiety Reason Comments Follow Up 1 month follow up Reason Comments Medication Problem Reason Onset Date Comments [facility] 04/19/2023 Check in call Reason Onset Date Comments [facility] 05/06/2023 Check in call Reason Comments Follow Up 3 month Reason Onset Date Comments [facility] 07/30/2023 Check in call Reason Onset Date Comments [facility] 08/30/2023 Check in call Reason Onset Date Comments [facility] 09/27/2023 Check in call Reason Comments Orders Reason Comments F/U 3 Month MMSE Needs letter complet ed Reason Onset Date Comments [facility] 11/02/2023 Check in call Reason Onset Date Comments [facility] 11/18/2023 Check in call Reason Onset Date Comments [facility] 12/17/2023 Check in call Reason Onset Date Comments [facility] 01/20/2024 Check in call Reason Onset Date Comments Community [facility] Outreach 01/24/2024 Fo llow up Reason Onset Date Comments [facility] 02/22/2024 Check in call (unrecognized sect ion and content) No Status Records FoundNo Status Records Found INFORMATION SOURCE (unrecogn ized section and content) DATE CREATED AUTHOR 01/16/2023 [facility] DATE CREATED AUTHOR AUTHOR'S ORGANIZ ATION 02/24/2024 [facility] FOR RECORDS PERTAINING TO PATIENTS WHO ARE OR HAVE BEEN ENROLLED IN A CHEMICAL DEPENDENCY/SUBSTANCEABUSE PROGRAM, SOME INFORMATION MAY BE OMITTED. This clinical summary was aggregated from multiple sources. Caution should be exercised in using it in the provision of clinical care. This summary normalizes information from multiple sources, and as a consequence, information in this document may materially change the coding, format and clinical context of patient data. In addition, data may be omitted in some cases. CLINICAL DECISIONS SHOULD BE BASED ON THE PRIMARY CLINICAL RECORDS. [facility]. provides no warranty or guarantee of the accuracy or completeness of information in this document.
[2024-04-11] MEDS: Acetaminophen 325 MG Tablet 650 MG PO (20:32)
[2024-04-11 20:56] VITALS: BP 161/54; PULSE 78; RESP 20; TEMP 37.7; O2SAT 98
[2024-04-11 21:00] VITALS: BP 161/54; PULSE 78; RESP 20; O2SAT 98
== END 2024-04-11 21:26 | disposition home or self-care (01) ==
PROVIDERS: Emergency Provider Emergency Medicine; PCP Family Medicine; Visit Provider Emergency Medicine
DX: S40.011A Contusion of right shoulder, initial encounter (principal); N18.31 Chronic kidney disease, stage 3a; I12.9 Hypertensive chronic kidney disease with stage 1 through stage 4 chronic kidney disease, or unspecified chronic kidney disease; S70.01XA Contusion of right hip, initial encounter; W18.39XA Other fall on same level, initial encounter; Y93.89 Activity, other specified; Z86.16 Personal history of COVID-19; Z87.891 Personal history of nicotine dependence
CPT/HCPCS: 73030; 73502; 99285

== ENCOUNTER 2025-02-04 12:04 | Emergency (ER) | payer OTHER, SELFPAY ==
[2025-02-04 12:05] VITALS: BP 141/106; PULSE 57; RESP 16; TEMP 36.8; O2SAT 100; BMI 31.7
--- NOTE | 2025-02-04 12:24 | ED.VIS.FALL ---
HPI HPI - Fall History of Present Illness Chief Complaint: Fall PFSH PFSH Medical History COVID-19 Dementia with behavioral problem Osteoarthritis Abnormal CT of the abdomen Anemia Acute kidney injury Chronic renal failure, stage 3a H/O normocytic normochromic anemia Somatic dysfunction of rib Neuropathic pain A-fib Fall Restless legs syndrome GERD (gastroesophageal reflux disease) BPH (benign prostatic hyperplasia) Hypertension Home Medications ?Medication ?Instructions ?Recorded ?Last Taken ?Type multivitamin 1 ea PO DAILY supplement 07/02/15 Unknown History finasteride 5 mg tablet 5 mg PO QDAY urinary retention 05/17/17 Unknown History amlodipine 2.5 mg tablet 2.5 mg PO DAILY blood pressure 12/31/22 Unknown History acetaminophen 325 mg tablet 650 mg (2 x 325 mg) PO Q6H PRN PRN 01/11/23 Unknown Rx Pain Score 1-10 #1 TAB donepezil 5 mg tablet 5 mg PO QHS memory #0 tabs 02/02/23 Unknown Rx pantoprazole 40 mg tablet,delayed 40 mg PO BID reflux #60 tabs 02/02/23 Unknown Rx release ondansetron 4 mg disintegrating 4 mg PO Q8H nausea 02/04/23 Unknown History tablet melatonin 5 mg capsule 10 mg PO QHS sleep 02/09/23 Unknown History polyethylene glycol 3350 17 4 g PO DAILY 02/09/23 Unknown History gram/dose oral powder (Miralax) sertraline 50 mg tablet 50 mg PO DAILY 04/11/24 Unknown History benzonatate 100 mg capsule 100 mg PO TID PRN PRN cough 02/04/25 Unknown History ceramides 1,3,6-II (CeraVe topical 1 applic topical TID 02/04/25 Unknown History cleanser) cetirizine 5 mg tablet 5 mg PO DAILY 02/04/25 Unknown History replenex See Rx Instructions .Route .COMPLEX 02/04/25 Unknown History triamcinolone acetonide 0.1 % 1 applic topical DAILY PRN itch 02/04/25 Unknown History topical cream Allergy/AdvReac Type Severity Reaction Status Date / Time aspirin Allergy Unknown Unknown Verified 02/04/25 12:08 Penicillins Allergy Rash Verified 02/04/25 12:08 Family History Mother Cirrhosis of liver Surgical History Unspecified nasal polyp S/P right rotator cuff repair H/O hernia repair Hx of cholecystectomy Social History household members: spouse housing: assisted living facility current occupational status: retired Smoking Status: Former smoker how long ago did patient quit smokin years ago EXAM Physical Exam Const Vital Signs: 02/04/25 12:05 02/04/25 13:28 02/04/25 14:00 Temperature 98.2 F Temperature Source Oral Pulse Rate 57 L Respiratory Rate 16 Respiratory Effort Normal Non-Labored Respiratory Depth Normal Respiratory Pattern Normal Blood Pressure 141/106 H 145/71 H Blood Pressure Mean 117 92 Pulse Ox 100 98 Oxygen Delivery Method Room Air Room Air 02/04/25 14:31 Temperature 97.9 F Temperature Source Pulse Rate 51 L Respiratory Rate 18 Respiratory Effort Respiratory Depth Respiratory Pattern Blood Pressure 145/71 H Blood Pressure Mean 95 Pulse Ox 100 Oxygen Delivery Method MDM MDM MDM Narrative Medical decision making narrative: HISTORY OF PRESENT ILLNESS: Chief complaint: Fall 89-year-old male history of gastric ulcer, dementia, CKD 3, GERD hypertension presents after mechanical fall from standing. No syncope. No head trauma noted please notes left buttock and tailbone pain. Notes mechanical fall. No head trauma. Notes pain over low back and left hip. REVIEW OF SYSTEMS: Pertinent positives: Left buttock/tailbone pain Pertinent negatives: Head trauma, LOC PHYSICAL EXAM: Nursing triage notes reviewed, Vital signs reviewed Primary Survey Airway: Intact Breathing: Bilateral breath sounds Circulation: Palpable bilateral femorals, Palpable bilateral radial, Palpable bilateral DP and Palpable bilateral PT Disability / Spine precautions GCS Score: Eye Openin Verbal Response: 5 Motor Response: 6 Secondary Survey Constitutional: Please see MDM Head: Atraumatic, Midface stable, NO jaw malocclusion, No Cephalohematoma, and No Lacerations noted Eye: Pupils equal round and reactive to light, Extraocular muscles intact and No periorbital ecchymosis or stepoff, no evidence of entrapment ENT: Oropharynx clear, no lacerations, no hemotympanum, no raccoon eyes or garcia sign Cervical spine / Neck: No cervical spine bony tenderness, crepitance, or stepoff deformity Trachea midline Lungs: Clear to auscultation, No asymmetric rise and No crepitus, no flail chest Cardiac: Regular rate and rhythm and No murmurs Abdomen: Soft, Nontender and No rebound Pelvis: Pelvis stable to compression : No evidence of genital injury Back: No midline bony tenderness to thoracic/lumbar/sacral spines Neuro: At baseline, intact strength and sensation in bilateral upper and lower extremities. 2+ patellar reflexes bilaterally. Extremities: NO gross Deformities Psych: Normal affect Nursing triage notes reviewed, Vital signs reviewed MEDICAL DECISION MAKING: Chief Complaint: please see HPI External records reviewed: Reviewed prior imaging: Reviewed x-ray of the hip and pelvis from 2023 shows no evidence of displaced pelvic or hip fracture Factors affecting care: none Social determinants of health: none History obtained from others: none Consults: none [facility] Narrative: The patient was initially hemodynamically stable, afebrile and nontoxic appearing. Exam with TTP over thoracolumbar junction as well as left hip. I considered the following differential diagnosis: Hip fracture dislocation, pelvic fracture, thoracic or lumbar spine fracture I obtained x-rays to further determine if the patient was suffering from a life-threatening etiology. Initially offered pain medication but patient refused ALL IMAGES (IF OBTAINED) HAVE BEEN PERSONALLY REVIEWED AND INTERPRETED BY MYSELF. X-ray of the left hip and pelvis was read and reviewed personally by myself shows no evidence of obvious bony abnormality. Radiologist agrees my interpretation CT scan of the thoracic spine/lumbar spine are negative for acute bony abnormality The synthesis of the patient's history, physical exam, imaging studies suggest musculoskeletal/contusion pathology. No sign of fractures or dislocations. The patient is appropriate for discharge home with Tylenol and ibuprofen pain control instructions. Strict return precautions and follow-up instructions The patient and/or family, caregivers express understanding. The patient and/or family, caregivers agrees with the plan. Shared decision making: I will have a discussion with the patient and or visitors regarding risk/benefits of further testing or admission. They will be made aware of of the risk/benefits inherent in this decision they will be given the opportunity to voice understanding. Total critical care time today provided was at least 0 minutes. This excludes separately billable procedures. Critical care time (if documented) is secondary to the patient having high probability of clinically significant/life threatening deterioration in the patient's condition which required my urgent intervention. Impression: 1. Left hip pain 2. Left hip contusion Dispo: Discharge This note was generated with [employer] dictation software. It may contain incorrect words, spelling, and punctuation that were not noted in review of the chart prior to signing. Radiography Diagnostic Testing: Clinical Impression(s) from Imaging Studies Hip/Pelvis X-Ray 02/04/25 13:30 IMPRESSION: DEGENERATIVE OSTEOARTHROSIS. NO ACUTE FINDINGS. Reading Location: [facility] Lumbar Spine CT 02/04/25 13:40 IMPRESSION: No acute thoracolumbar spine fracture or subluxation. Moderate multilevel spondylotic changes as described above, and mild lumbar dextroscoliosis. Reading Location: [facility] Thoracic Spine CT 02/04/25 13:40 IMPRESSION: No acute thoracolumbar spine fracture or subluxation. Moderate multilevel spondylotic changes as described above, and mild lumbar dextroscoliosis. Reading Location: [facility] Discharge Plan Triage Chief Complaint: Fall ED Provider: Kev Vargas Dx/Rx/DC Orders Instructions: ED Fall with Uncertain Cause, ED Hip Contusion Prescriptions: No Action finasteride 5 mg tablet 5 mg PO QDAY polyethylene glycol 3350 [Miralax] 17 gram/dose powder 4 g PO DAILY multivitamin 1 EACH tablet 1 ea PO DAILY acetaminophen 325 mg Tablet 650 mg PO Q6H PRN PRN (Reason: Pain Score 1-10) Qty: 1 0RF pantoprazole 40 mg Tablet,Delayed Release (Dr/Ec) 40 mg PO BID Qty: 60 0RF donepezil 5 mg Tablet 5 mg PO QHS Qty: 0 0RF melatonin 5 mg capsule 10 mg PO QHS amlodipine 2.5 mg tablet 2.5 mg PO DAILY ondansetron 4 mg tablet,disintegrating 4 mg PO Q8H benzonatate 100 mg capsule 100 mg PO TID PRN PRN (Reason: cough) cetirizine 5 mg tablet 5 mg PO DAILY CeraVe Cleanser 1 applic topical TID triamcinolone acetonide 0.1 % cream 1 applic TOPICAL DAILY PRN Patient Comments: [NO ORIGINAL SIG] replenex capsule See Rx Instructions .ROUTE .COMPLEX Rx Instructions: 1 CAPSULE DAILY sertraline 50 mg tablet 50 mg PO DAILY Primary Care Provider: Jaime Johnson Referrals: Jaime Johnson MD [Primary Care Provider] - Activity Restrictions/Additional Instructions: Thank you for trusting us with your care today! Imaging of your back, hip and pelvis were negative for signs of broken bones. You likely suffered from bruises. Your symptoms will improve slowly over the next days to weeks. Please take Tylenol (2 pills, 650 mg), ibuprofen (2 pills, 400 mg) every 6 hours as needed for pain and fever control. Please return to the emergency department if your symptoms change or worsen. Please follow with your primary care physician for further outpatient evaluation and management. Print Language: Dominican Disposition Disposition: Home, Self Care Discharge Date/Time: 02/04/25 15:22
--- OUTSIDE RECORDS SUMMARY | 2025-02-04 12:58 | XMS RPT_ITS | CCD ---
Author Organization [facility] Care Team Providers Care Dermatopathologist Name Role Phone Jordan Johnson MD Primary Care Provider Jordan Johnson MD Primary Care Provider Maddi France DO Unavailable Jordan Johnson MD Unavailable Dr. Jaime Johnson Primary Care Provider [phone] Dr. Otoniel Ellis Emergency Provider Dr. Pastor Bazan Attending Provider Dr. Pastor Bazan Admit Provider Dr. Pastor Bazan Other Provider Dr. Moris Prasad Attending Provider [phone] Moris Prasad Other Provider [phone] Dinh, Dr. Anuj Lo Admit Provider Dinh, Dr. Anuj Lo Other Provider Dr. Serenity Ozuna Attending Provider Dinh, Dr. Anuj Lo Referring Provider MADDI FRANCE Attending Unavailable VASHTI MOTLEY Consulting Unavailable HOLLIS STUART II Admitting Unavailable JORDAN JOHNSON Primary Care Unavailab maurice Garcias RN, Edy Unavailable Dr. Tim Raymond Attending Provider Dr. Tim Raymond Referring Provider Dr. Anuj Tao Chi Referring Provider Dr. Evangelista Martinez Emergency Provider Dr. Isidra Rodriguez Attending Provider Dr. Isidra Rodriguez Admit Provider Dr. Isidra Rodriguez Other Provider Dr. Aletha Malcolm Attending Provider Dr. Aletha Malcolm Other Provider Dr. Aden Carey Attending Provider Dr. Vic Cummings Attending Provider Dr. Vic Cummings Other Provider Patric COLÓN, Nathaly Unavailable Jordan Johnson MD Primary Care Provider Aden Carey Attending Unavailable Jaime Johnson Referring Unavailable Alex, Jaime Primary Care Unavailable Kev Vargas Attending Unavailable Jaime Johnson Primary Care Unavailable Alex, Jaime Primary Care Unavailable Connor Augustin Attending Unavailable Dr. Jaime Johnson Primary Care Provider Dr. Evangelista Martinez Emergency Provider Dr. Iisdra Rodriguez Attending Provider Dr. Isidra Rodriguez Admit Provider Dr. Isidra Rodriguez Other Provider Dr. Aletha Malcolm Attending Provider Dr. Aletha Malcolm Other Provider Dr. Aden Carey Attending Provider Dr. Vic Cummings Referring Provider Dr. Vic Cummings Attending Provider Dr. Vic Cummings Other Provider Dr. Kev Vargas Emergency Provider Dr. Wilder Devlin Admit Provider Dr. Wilder Devlin Other Provider Dr. Sagar Ng Attending Provider Dr. 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 PODLOGAR, FABBY Referring Unavailable JORDAN JOHNSON Primary Care Unavailab le PODLOGAR, FABBY Attending Unavailable JORDAN JOHNSON Primary Care Unavailab JORDAN Chow Primary Care Unavailab JORDAN Chow Referring Unavailab JORDAN Chow Primary Care Unavailab JORDAN Chow Attending Unavailab le Allergies Allergy Classification Reported Allergen(s) Allergy Type Date of Onset Reaction(s) Facility (20 sources) Aspirin; Translations: [ASPIRIN] Drug Allergy 09-23-2010 [facility] Work Phone: (6 sources) Penicillins; Translations: [PENICILLINS] Drug Allergy 10-28-2009 [facility] (20 sources) Penicillins Drug Allergy 10-28-2009 [facility] (9 sources) Penicillins Allergy to substance 05-17-2017 [facility] (1 source) Aspirin Drug Allergy 04-11-2024 [facility] (1 source) Penicillins Drug allergy (disorder) 04-11-2024 [facility] (4 sources) Penicillins Drug Allergy 10-28-2009 [facility] Medications Current Medications Medication Drug Class(es) Dates Sig (Normalized) Sig (Original) acetaminophen 325 mg oral capsule (20 sources) Start: 04-01-2023 End: 04-02-2023 take 2 capsules by mouth every twelve hours as needed acetaminophen 325 mg cap Take 2 capsules by mouth two times a day as needed for pain. 180 capsule 3 04/02/2023 Active Start: 01-11-2023 take 650 mg by mouth every six hours as needed Acetaminophen Active 650 MG PO EVERY 6 HOURS NEEDED January 10, 2023 11:00pm End: 04-01-2023 acetaminophen 325 mg cap Lazaro [...] sources) Opioid Agonist Start: 02-04-20 End: 02-18-20 take 1 tablet by mouth every eight [...] sources) Dihydropyridine Calcium Channel Deondre Start: 11-05-19 End: 02-29-20 take 1 tablet by mouth once daily amLODIPine (NORVASC) 2.5 mg tablet Take 1 tablet by mouth once daily. 90 tablet 1 11/30/2022 Active Start: 04-22-2022 End: 09-07-2022 take 1 tablet by mouth once daily amLODIPine (NORVASC) 2.5 mg tablet Take 1 tablet by mouth once daily. 30 tablet 1 09/07/2022 Active Comment on above: Take 1 tablet by abigail th once daily. atropine sulfate 0.025 mg / diphenoxylate hydrochloride 2.5 mg oral tablet (1 source) Anticholinergic, Cholinergic Muscarinic Antagonist, Antidiarrheal Start: 05-17-20 take 1 tablet by mouth once Diphenoxylate-Atr opine (Lomotil) 2.5-0.025 mg tablet Active 1 TABLET PO ONCE May 17, 2017 1:00am calcium ascorbate 500 mg oral tablet (1 source) Start: 02-10-20 take 1 g by mouth once daily Ascorbate Calcium (Vitamin C) Active 1 GM PO DAILY February 08, 2023 11:00pm calcium carbonate 1500 mg / cholecalciferol 0.01 mg oral tablet (10 sources) Vitamin D Start: 02-10-20 take 1 tablet by mouth once daily Calcium Carbonate-Vitamin D3 Active 1 TABLET PO DAILY February 08, 2023 11:00pm Start: 07-02-2015 End: 01-29-2023 Calcium Carbonate-Vitamin D3 Discontinued 1 EACH PO DAILY July 02, 2015 12:00am January 29, 2023 9:49pm donepezil hydrochloride 5 mg oral tablet (20 sources) Start: 01-11-2023 End: 05-12-2023 take 1 tablet by mouth once daily at bedtime donepezil (ARICEPT) 5 mg tablet Take 1 tablet by mouth daily at bedtime. 30 tablet 2 02/11/2023 Active Comment on above: Take 5 mg by mouth d aily at bedtime. [facility] doxazosin 1 mg oral tablet (6 sources) alpha-Adrenergi c Deondre Start: 02-09-2023 take 2 mg by mouth at bedtime Doxazosin Active 2 MG PO AT BEDTIME February 08, 2023 11:00pm Start: 01-11-2023 End: 01-29-2023 take 2 mg by mouth at bedtime Doxazosin Discontinued 2 MG PO AT BEDTIME 1 January 10, 2023 11:00pm January 29, 2023 9:50pm doxycycline hyclate 100 mg oral capsule (2 sources) Tetracycline-class Drug Start: 03-03-2023 End: 03-08-2023 take 1 capsule by mouth twice daily doxycycline hyclate (VIBRAMYCIN) 100 mg capsule Take 1 capsule by mouth twice daily for 5 days. 10 capsule 0 03/03/2023 03/08/2023 Active Comment on above: Take 1 capsule by mo [facility] twice daily for 5 days. ferrous sulfate 325 mg oral tablet (20 sources) Start: 12-31-2022 take 1 tablet by mouth once daily Ferrous Sulfate (Ferosul) 325 mg (65 mg iron) tablet Active 325 MG PO DAILY December 30, 2022 11:00pm Start: 10-15-2022 End: 02-11-2023 take 1 tablet by mouth once daily [...] tablet by abigail th daily with breakfast. finasteride 5 mg oral tablet (20 sources) 5-alpha Reductase Inhibitor Start: 7 End: 3 take 1 tablet by mouth once daily finasteride (PROSCAR) 5 mg tablet Take 1 tablet by mouth once daily. 90 tablet 3 06/22/2022 Active Comment on above: Take 1 tablet by abigail th once daily. gabapentin 300 mg oral capsule (20 sources) Anti-epileptic Agent Start: 1 End: 1 gabapentin (NEURONTIN) 300 mg capsule Indications: RLS (restless legs syndrome) TAKE 3 CAPSULES EVERY DAY AT BEDTIME 270 capsule 07/08/2020 12/10/2020 Discontinued Start: 07-02-2015 End: 07-08-2023 take 300 mg by mouth at bedtime Gabapentin Active 300 MG PO AT BEDTIME February 08, 2023 11:00pm Start: 07-02-2015 take 900 mg by mouth at bedtim e Gabapentin Active 900 MG PO AT BEDTIME July 02, 2015 1:00am Comment on above: Take one capsule at bedtime glycerin 2 mg/ml / hypromellose 2 mg/ml / polyethylene glycol 400 10 mg/ml ophthalmic solution (1 source) Non-Standardized Chemical Allergen Start: 02-07-20 Peg [id number]-Vr ycerin (Artificial Tears(Sm-Yumk-Cggn) ) 1-0.2-0.2 % Drops Active 1 DRP EACH EYE EVERY HOUR NEEDED 0 February 05, 2023 11:00pm hydrOXYzine pamoate 50 mg oral capsule (20 sources) Antihistamine Start: 02-10-20 take 1 capsule by mouth at bedtime Hydroxyzine Pamoate (Vistaril) 50 mg capsule Active 50 MG PO AT BEDTIME February 08, 2023 11:00pm Start: 10-21-2020 End: 02-04-2023 take 1 capsule by mouth at bedtime Hydroxyzine Pamoate (Vistaril) 50 mg capsule Discontinued 50 MG PO AT BEDTIME December 30, 2022 11:00pm January 11, 2023 3:21pm Start: 10-20-2019 End: 10-19-2020 take 1 capsule by mouth every twenty-four hours as needed hydrOXYzine pamoate (VISTARIL) 50 mg capsule Take 1 capsule by mouth at bedtime as needed (insomnia). 90 capsule 1 10/20/2019 10/19/2020 Discontinued Start: 05-17-2017 End: 12-31-2022 take 50 mg by mouth once Hydroxyzine Hcl Discontinued 50 MG PO ONCE May 17, 2017 12:00am December 31, 2022 7:57am End: 04-01-2023 take 1 tablet by mouth every eight hours as needed hydrOXYzine HCl (ATARAX) 50 mg tablet Take 50 mg by mouth three times a day as needed. At HS prn for sleep the daughter thinks. 0 04/01/2023 Discontinued Comment on above: Take 1 capsule by mo uth at bedtime as needed (insomnia). Take 50 mg by mouth three times a day as needed. At HS prn for sleep the daughter thinks. hypromellose 3 mg/ml ophthalmic solution (7 sources) Start: 4 artificial tear, Hypromellose, 0.3 % drop Use 1 Drop in both eyes as needed. 15 mL 2 04/17/2024 Active Magnesium Chloride (6 sources) Start: take 128 mg by mouth once daily Magnesium Chloride Active 128 MG PO DAILY February 08, 2023 11:00pm Start: 01-11-2023 End: 01-29-2023 Magnesium Chloride (Mag 64) 64 mg Tablet,Delayed Release (Dr/Ec) Discontinued 128 MG PO DAILY 1 January 10, 2023 11:00pm January 29, 2023 9:51pm melatonin 10 mg oral tablet (20 sources) Start: 04-01-2023 End: 09-28-2023 take 1 tablet by mouth once daily at bedtime melatonin 10 mg tab Take 1 tablet by mouth daily at bedtime. 90 tablet 1 04/01/2023 Active Start: 02-09-2023 take 10 mg by mouth at bedtime Melatonin Active 10 MG PO AT BEDTIME February 09, 2023 8:41am Start: 01-29-2023 End: 02-09-2023 take 5 mg by mouth at bedtime Melatonin Discontinued 5 MG PO AT BEDTIME January 28, 2023 11:00pm February 09, 2023 8:41am End: 04-01-2023 take 5 mg by mouth once daily at bedtime melatonin 10 mg tab Take 5 mg by mouth daily at bedtime. 04/01/2023 Discontinued Comment on above: Take 5 mg by mouth d aily at bedtime. Take 1 tablet by abigail th daily at bedtime. meloxicam 15 mg oral tablet (20 sources) Nonsteroidal Anti-inflammatory Drug Start: 02-09-2023 take 15 mg by mouth once daily Meloxicam Active 15 MG PO DAILY February 08, 2023 11:00pm Start: 12-31-2022 End: 01-11-2023 take 15 mg by mouth once daily as needed Meloxicam Discontinued 15 MG PO DAILY NEEDED December 30, 2022 11:00pm January 11, 2023 3:17pm Start: 05-25-2022 take 1 tablet by abigail th once daily meloxicam (MOBIC) 15 mg tablet Take 15 mg by mouth once daily. 0 05/25/2022 Active Comment on above: Take 15 mg by mouth once daily. methylPREDNISolone (2 sources) Corticosteroid Start: 2022 End: 2022 methylPREDNISolone (MEDROL, BRANDON,) 4 mg Dose-Pack As Instructed per package 21 tablet 0 03/03/2023 03/08/2023 Active Comment on above: As Instructed per pa ckamanda Multivitamin capsule (20 sources) take 1 capsule by mouth once daily Multivitamin capsule Take 1 capsule by mouth once daily. Active take 1 capsule by mouth once willy ly Multivitamin capsule Take 1 capsule by mouth once daily. 0 Active Comment on above: Take 1 capsule by mo [facility] once daily. Multivitamin preparation (9 sources) Start: 07-02-2015 Multivitamin Active 1 EACH PO DAILY July 02, 2015 12:00am Start: 07-02-2015 Multivitamin A ctive 1 EACH PO DAILY July 02, 2015 1:00am mupirocin 0.02 mg/mg topical ointment (2 sources) RNA Synthetase Inhibitor Antibacterial Start: 09-30-2022 End: 10-10-2022 mupirocin (BACTROBAN) 2 % ointment Apply 1 application to affected area three times daily for 10 days. 30 g 0 09/30/2022 10/10/2022 Active Comment on above: Apply 1 application to affected area three times daily for 10 days. nitrofurantoin, macrocrystals 100 mg oral capsule (1 source) Nitrofuran Antibacterial Start: 02-06-2023 take 100 mg by mouth twice daily at mealtime Nitrofurantoin Macrocrystal Active 100 MG PO TWICE A DAY 10 5 February 05, 2023 11:00pm must administer with a meal/food ondansetron 4 mg disintegrating oral tablet (20 sources) Serotonin-3 Receptor Antagonist Start: 01-29-2023 take 1 tablet by mouth every eight hours as needed for nausea and nausea ondansetron orally disintegrating (ZOFRAN ODT) 4 mg disintegrating tablet Indications: Nausea Take 1 tablet by mouth every 8 hours as needed for nausea/vomiting. 10 tablet 01/29/2023 Active Comment on above: Take 1 tablet by abigail th every 8 hours as needed for nausea/vomiting. pantoprazole 40 mg delayed release oral tablet (20 sources) Proton Pump Inhibitor Start: 02-02-2023 take 40 mg by mouth twice daily Pantoprazole Active 40 MG PO TWICE A DAY 60 February 01, 2023 11:00pm Start: 01-29-2023 End: 01-29-2023 take 20 mg by mouth every twelve hours Pantoprazole Discontinued 20 MG PO Q12H January 28, 2023 11:00pm January 29, 2023 9:53pm take 40 mg by mouth twice daily pantoprazole sodium (PANTOPRAZOLE ORAL) Take 40 mg by mouth twice daily. Active Comment on above: Take 40 mg by mouth twice daily. polyethylene glycol 3350 70923 mg powder for oral solution (20 sources) Osmotic Laxative Start: 11-10-2024 polyethylene glycol 3350 17 gram/dose powder Take 17 g by mouth once daily. Dissolve dose in 4 - 8 ounces of liquid and take as directed. 850 g 2 11/10/2024 Active Start: 02-09-2023 Polyethylene G lycol 3350 (Miralax) 17 gram/dose powder Active 4 GM PO DAILY February 08, 2023 11:00pm Start: 12-31-2022 End: 01-29-2023 Polyethylene Glycol 3350 (Mi ralax) 17 gram/dose powder Discontinued 17 GM PO DAILY December 30, 2022 11:00pm January 29, 2023 9:53pm Start: 12-10-2020 End: 04-15-2022 take 17 g by mouth once daily POLYETHYLENE GLYCOL 3350 17 gram/dose ORAL powder 17 g once daily. 12/10/2020 04/15/2022 Discontinued Comment on above: 17 g once daily. promethazine hydrochloride 25 mg oral tablet [...] th every 8 hours as needed for nausea/vomiting [...] Drug Class(es) Dates Sig (Normalized) Sig (Original) ascorbic acid 500 mg oral tablet (5 sources) Vitamin C Start: 01-11-2023 End: 01-29-2023 take 1000 mg by mouth once daily at mealtime Ascorbic Acid (Vitamin C) Discontinued 1000 MG PO WITH LUNCH 1 January 10, 2023 11:00pm January 29, 2023 9:49pm Please give the vitamin C and the ferrous sulfate together once daily with a meal aspirin 81 mg delayed release oral tablet [...] mouth once daily. Pt reported low dose benzonatate 100 mg oral capsule (14 sources) Non-narcotic Antitussive Start: 04-12-2024 End: 11-01-2024 take 1 capsule by mouth every eight hours as needed benzonatate (TESSALON PERLES) 100 mg capsule Take 1 capsule by mouth three times a day as needed. 30 capsule 04/12/2024 11/01/2024 Discontinued (Course of therapy completed) Start: 01-29-2023 End: 02-04-2023 take 100 mg by mouth every six hours Benzonatate Discontinued 100 MG PO EVERY 6 HOURS January 28, 2023 11:00pm February 04, 2023 8:26pm Start: 12-31-2022 End: 01-11-2023 take 200 mg by mouth three times daily as needed Benzonatate Discontinued 200 MG PO 3 TIMES DAILY NEEDED 0 December 30, 2022 11:00pm January 11, 2023 3:17pm bisacodyl 10 mg rectal suppository (4 sources) Stimulant Laxative Start: 01-29-2023 End: 02-04-2023 Bisacodyl Discontinued 10 MG RC DAILY January 28, 2023 11:00pm February 04, 2023 8:26pm carvedilol 3.125 mg oral tablet (20 sources) alpha-Adrenergic Deondre, beta-Adrenergic Deondre Start: 01-29-2023 End: 02-06-2023 take 6.25 mg by mouth twice daily at mealtime Carvedilol Discontinued 6.25 MG PO TWICE DAILY WITH MEALS January 28, 2023 11:00pm February 06, 2023 11:57am Decreased due to bradycardia and low BP Start: 01-11-2023 End: 02-28-2023 take 1 tablet by mouth twice daily at mealtime carvedilol (COREG) 3.125 mg tablet Take 1 tablet by mouth twice daily with meals. 60 tablet 01/29/2023 02/11/2023 Discontinued Start: 12-31-2022 End: 01-11-2023 take 6.25 mg by mouth every twelve hours Carvedilol Discontinued 6.25 MG PO Q12H December 30, 2022 11:00pm January 11, 2023 3:17pm Start: 12-28-2022 End: 01-29-2023 take 1 tablet by mouth twice daily at mealtime carvedilol (COREG) 6.25 mg tablet Take 1 tablet by mouth twice daily with meals. 60 tablet 0 12/28/2022 01/29/2023 Discontinued Comment on above: Take 1 tablet by abigail th twice daily with meals. clonazePAM 1 mg oral tablet (9 sources) Benzodiazepine Start: 016 End: 017 take 1 mg by mouth at bedtime Clonazepam Discontinued 1 MG PO AT BEDTIME July 02, 2015 12:00am May 17, 2017 2:46pm COMPOUNDED PRESCRIPTION (17 sources) End: COMPOUNDED PRESCRIPTION Croatian dream cream topical for pain Histamine dihydrichloride 0.025% 04/15/2022 Discontinued End: 04-15-2022 COMPOUNDED PRESCRIPTION Aust ralian dream cream topical for pain Histamine dihydrichloride 0.025% 0 04/15/2022 Discontinued COMPOUNDED PRESC RIPTION Croatian dream cream topical for pain Histamine dihydrichloride 0.025% 0 Active Comment on above: Croatian dream cre am topical for pain Histamine dihydrichloride 0.025% cyclobenzaprine hydrochloride 5 mg oral tablet (20 sources) Muscle Relaxant Start: End: take 1 tablet by mouth twice daily as needed for muscle spasms cyclobenzaprine (FLEXERIL) 5 mg tablet Indications: Acute left-sided low back pain without sciatica Take 1 tablet by mouth two times a day as needed for muscle spasm. 60 tablet 06/16/2023 11/01/2024 Discontinued (Course of therapy completed) Start: 05-21-2023 take 10 mg by mouth three times daily Cyclobenzaprine Active 10 MG PO THREE TIMES A DAY May 21, 2023 12:00am Comment on above: Take 1 tablet by abigail th two times a day as needed for muscle spasm. 12 hr dextromethorphan hydrobromide 30 mg / guaiFENesin 600 mg extended release oral tablet (5 sources) Uncompetitive K-jygxgr-D-aspartate Receptor Antagonist, Sigma-1 Agonist Start: End: take 2 tablets by mouth twice daily Dextromethorphan-Gu aifenesin (Mucinex Dm) 30-600 mg Tablet Extended Release 12 Hr Discontinued 2 TABLET PO TWICE A DAY 0 December 30, 2022 11:00pm January 11, 2023 3:20pm EMOLLIENT BASE (CREAM BASE TOPICAL) (1 source) End: EMOLLIENT BASE (CREAM BASE TOPICAL) Apply to affected area as needed. Croatian Dream cream 06/12/2021 Discontinued furosemide 40 mg oral tablet (20 sources) Loop Diuretic Start: End: take 40 mg by mouth once daily Furosemide Discontinued 40 MG PO DAILY February 08, 2023 11:00pm February 09, 2023 8:43am Start: 11-09-2022 End: 02-04-2023 take 1 tablet by mouth once daily Furosemide (Lasix) 40 mg tablet Discontinued 40 MG PO DAILY December 30, 2022 11:00pm January 11, 2023 3:21pm Start: 04-15-2022 End: 06-13-2022 take 1 tablet by mouth once daily furosemide (LASIX) 40 mg tablet Indications: Bilateral lower extremity edema Take 1 tablet by mouth once daily. 90 tablet 1 05/14/2022 Active Comment on above: Take 1 tablet by abigail th once daily. hydrocortisone acetate 25 mg rectal suppository (9 sources) Corticosteroid Start: 023 End: Hydrocortisone Acetate Discontinued 25 MG RC TWICE A DAY January 28, 2023 11:00pm February 04, 2023 8:26pm BID AND BID PRN lisinopril 40 mg oral tablet (20 sources) Angiotensin Converting Enzyme Inhibitor Start: 020 End: take 0.5 tablet by mouth once daily lisinopril (ZESTRIL, PRINIVIL) 40 mg tablet Indications: Essential hypertension Take 0.5 tablets by mouth once daily. 45 tablet 5 02/26/2022 08/25/2022 Active Start: 07-02-2015 End: 02-11-2023 take 40 mg by mouth once daily Lisinopril Discontinued 40 MG PO DAILY February 03, 2023 11:00pm February 06, 2023 11:57am Comment on above: Take 0.5 tablets by mouth once daily. Take 1 tablet by abigail th once daily. Take 40 mg by mouth once daily. Eq-Vl-Sf-Vit V-Wjqpk-Oieo-Zeax (9 sources) Start: 07-02-2015 End: 05-17-2017 Ix-Eo-Uj-Vit G-Eruly-Ivha-Zeax Discontinued 1 EACH PO DAILY July 02, 2015 12:00am May 17, 2017 2:46pm Start: 07-02-2015 End: 05-17-2017 If-Xv-Bl-Vit L-Cdbqg-Ibyg-Ze ax Discontinued 1 EACH PO DAILY July 02, 2015 1:00am May 17, 2017 3:46pm naproxen 500 mg oral tablet (9 sources) Nonsteroidal Anti-inflammatory Drug Start: 05-17-2017 End: 12-31-2022 take 500 mg by mouth every twelve hours Naproxen Discontinued 500 MG PO Q12H May 17, 2017 12:00am December 31, 2022 10:10am nitrofurantoin, macrocrystals 25 mg / nitrofurantoin, monohydrate 75 mg oral capsule (6 sources) Nitrofuran Antibacterial End: 04-01-2023 take 1 capsule by mouth twice daily nitrofurantoin monohydrate and macrocrystal (MACROBID) 100 mg capsule Take 100 mg by mouth twice daily. X 5 days 0 04/01/2023 Discontinued Comment on above: Take 100 mg by mouth twice daily. X 5 days Goehner 0-Owe-Bjc-Fish Oil (9 sources) Start: 07-02-2015 End: 05-17-2017 Goehner 9-Jcw-Mlj-Fish Oil Discontinued 1 EACH PO DAILY July 02, 2015 12:00am May 17, 2017 2:46pm Start: 07-02-2015 End: 05-17-2017 Goehner 1-Fnh-Epp-Fish Oil Dis continued 1 EACH PO DAILY July 02, 2015 1:00am May 17, 2017 3:46pm omeprazole 20 mg delayed release oral capsule (20 sources) Proton Pump Inhibitor Start: 01-29-2023 End: 02-02-2023 take 20 mg by mouth every eight hours Omeprazole Discontinued 20 MG PO Q8H January 28, 2023 11:00pm February 02, 2023 4:06pm Start: 01-11-2023 End: 01-29-2023 take 40 mg by mouth twice daily Omeprazole Discontinued 40 MG PO TWICE A DAY 1 January 11, 2023 3:31pm January 29, 2023 7:07pm Start: 07-02-2015 End: 02-11-2023 take 20 mg by mouth twice daily Omeprazole Discontinued 20 MG PO TWICE A DAY February 03, 2023 11:00pm February 09, 2023 8:43am Comment on above: Take 1 capsule by [facility] twice daily. perflutren lipid microspheres 1.3 mL in NaCl (PF) 0.9% 10 mL injection (DEFINITY) (20 sources) Start: 04-17-20 End: 07-17-19 perflutren lipid microspheres 1.3 mL in NaCl (PF) 0.9% 10 mL injection (DEFINITY) QUEtiapine 25 mg oral tablet (9 sources) Atypical Antipsychotic Start: 01-12-20 End: 01-30-20 Quetiapine Discontinued 25 MG PO TWICE A DAY January 28, 2023 11:00pm January 29, 2023 9:53pm 1/2 tablet at 7AM, 1 tab at 9PM 125 ml sodium chloride 9 mg/ml prefilled syringe (20 sources) Start: 04-17-20 End: 07-17-19 sodium chloride 0.9 % (flush) 10 mL (BD POSIFLUSH) terazosin 5 mg oral capsule (20 sources) alpha-Adrenergic Deondre Start: 07-20-19 End: 02-12-20 take 5 mg by mouth at bedtime Terazosin Discontinued 5 MG PO AT BEDTIME February 03, 2023 11:00pm February 09, 2023 8:43am Start: 02-24-2022 End: 07-17-2022 take 1 capsule by mouth once daily at bedtime terazosin (HYTRIN) 5 mg capsule Indications: Essential hypertension Take 1 capsule by mouth daily at bedtime. 90 capsule 1 02/24/2022 07/17/2022 Discontinued Start: 07-17-2021 take 1 capsule by mo [facility] once daily at bedtime terazosin (HYTRIN) 5 mg capsule Indications: Essential hypertension Take 1 capsule by mouth daily at bedtime. 90 capsule 1 07/17/2021 Active Start: 10-23-2019 End: 10-12-2020 take 1 capsule by mouth once daily at bedtime terazosin (HYTRIN) 5 mg capsule Indications: Essential hypertension Take 1 capsule by mouth daily at bedtime. 90 capsule 3 10/23/2019 10/12/2020 Discontinued Start: 05-17-2017 End: 01-11-2023 take 5 mg by mouth at bedtime Terazosin Discontinued 5 MG PO AT BEDTIME May 17, 2017 2:43pm January 11, 2023 3:20pm Start: 07-02-2015 End: 05-17-2017 take 2 mg by mouth at bedtime Terazosin Discontinued 2 MG PO AT BEDTIME July 02, 2015 12:00am May 17, 2017 2:47pm Comment on above: Take 1 capsule by [facility] daily at bedtime. traMADol hydrochloride 50 mg oral tablet (19 sources) Opioid Agonist Start: 01-11-2023 End: 01-29-2023 Tramadol Discontinued 25 MG PO Q12H January 10, 2023 11:00pm January 29, 2023 9:53pm PRN pain 4 or greater Start: 12-31-2022 End: 01-11-2023 take 50 mg by mouth every six hours as needed Tramadol Discontinued 50 MG PO EVERY 6 HOURS NEEDED 0 December 30, 2022 11:00pm January 11, 2023 3:22pm Start: 07-02-2015 End: 05-17-2017 take 50 mg by mouth every six hours as needed Tramadol Discontinued 50 MG PO EVERY 6 HOURS NEEDED July 02, 2015 12:00am May 17, 2017 2:46pm traZODone hydrochloride 50 mg oral tablet (5 sources) Serotonin Reuptake Inhibitor Start: 01-11-2023 End: 01-29-2023 take 50 mg by mouth at bedtime Trazodone Discontinued 50 MG PO AT BEDTIME January 10, 2023 11:00pm January 29, 2023 7:10pm Problems Active Problems Problem Classification Problem Date Documented Date Episodic/Chronic Adjustment disorders (2 sources) Grief finding; Translations: [Adjustment disorder with depressed mood] 04-01-2023 Chronic Cardiac dysrhythmias (9 sources) Irregular heart beat; Translations: [Cardiac arrhythmia, unspecified] 01-11-2023 Chronic Chronic kidney disease (20 sources) Chronic kidney [...] unspecified] 06-20-2018 Episodic Deficiency and other anemia (3 sources) Anemia, unspecified; Translations: [Anemia, unspecified] 01-29-2023 Episodic Delirium, dementia, and amnestic and other cognitive disorders (20 sources) Senile asthenia; Translations: [Age-related physical debility] Onset: 02-11-2023 Chronic E Codes: Fall (20 sources) Fall in home; Translations: [Unspecified fall, initial encounter] Onset: 12-24-2022 Episodic Esophageal disorders (20 sources) Gastroesophageal reflux disease; Translations: [Gastro-esophageal reflux disease without esophagitis] Onset: 03-27-2016 03-27-2016 Chronic Essential hypertension (20 sources) Essential hypertension; Translations: [Essential (primary) hypertension] Onset: 06-11-2014 Resolved: 06-09-2017 06-02-2021 Chronic Gastroduodenal ulcer (except hemorrhage) (20 sources) Gastric ulcer; Translations: [Gastric ulcer, unspecified as acute or chronic, without hemorrhage or perforation] Onset: 02-11-2023 02-11-2023 Chronic Gastroduodenal ulcer (except hemorrhage) (1 source) Acute gastric ulcer without hemorrhage AND without perforation; Translations: [Acute gastric ulcer without hemorrhage or perforation] 02-13-2023 Episodic Hyperplasia of prostate (20 sources) Benign prostatic hypertrophy with outflow obstruction; Translations: [Benign prostatic hyperplasia with lower urinary tract symptoms] Onset: 09-19-2015 12-10-2020 Chronic Miscellaneous mental health disorders (1 source) Chronic insomnia; Translations: [Psychophysiologic insomnia] 04-01-2023 Chronic Mood disorders (20 sources) Depressive disorder; Translations: [Depression, unspecified depression type] Onset: 04-01-2023 02-13-2023 Chronic Mood disorders (1 source) Mood disorders; Translations: [Depression, unspecified depression type] Onset: 04-01-2023 Nausea and vomiting (2 sources) Nausea; Translations: [Nausea] 01-29-2023 Episodic Neoplasms of unspecified nature or uncertain behavior (9 sources) Monoclonal gammopathy (clinical); Translations: [Monoclonal gammopathy] 01-11-2023 Chronic Nonspecific chest pain (2 sources) Pain of sternum; Translations: [Other chest pain] 12-24-2022 Episodic Osteoarthritis (20 sources) Osteoarthritis; Translations: [Unspecified osteoarthritis, unspecified site] 03-27-2016 Chronic Other aftercare (1 source) Post-discharge follow-up; Translations: [Encounter for follow-up examination after completed treatment for conditions other than malignant neoplasm] 02-13-2023 Episodic Other bone disease and musculoskeletal deformities (4 sources) Segmental and somatic dysfunction of rib cage; Translations: [Nonallopathic lesions, rib cage] 01-12-2023 Episodic Other circulatory disease (1 source) Ecchymosis; Translations: [Hemorrhage, not elsewhere classified] Episodic Other connective tissue disease (2 sources) Pain of right upper arm; Translations: [Pain in right upper arm] Episodic Other connective tissue disease (1 source) Neuralgia and neuritis, unspecified; Translations: [Neuralgia, neuritis, and radiculitis, unspecified] 01-12-2023 Episodic Other ear and sense organ disorders (1 source) Impacted cerumen of bilateral ears; Translations: [Impacted cerumen, bilateral] Episodic Other ear and sense organ disorders (4 sources) Wax in ear canal; Translations: [Impacted cerumen, unspecified ear] 01-11-2023 Episodic Other ear and sense organ disorders (4 sources) Impacted cerumen, unspecified ear; Translations: [Impacted cerumen] 01-12-2023 Episodic Other hematologic conditions (1 source) Personal history of diseases of the blood and blood-forming organs and certain disorders involving the immune mechanism; Translations: [Personal history of diseases of blood and blood-forming organs] 01-12-2023 Episodic Other hereditary and degenerative nervous system conditions (20 sources) Restless legs; Translations: [Restless legs syndrome] Onset: 09-20-2014 Chronic Other hereditary and degenerative nervous system conditions (20 sources) Impaired cognition; Translations: [Mild cognitive impairment, so stated] Onset: 09-19-2015 09-19-2015 Chronic Other hereditary and degenerative nervous system conditions (2 sources) Restless legs syndrome; Translations: [Restless legs syndrome (RLS)] Onset: 09-20-2014 01-12-2023 Chronic Other injuries and conditions due to [...] fall; Translations: [History of falling] Episodic Other injuries and conditions due to external causes (1 source) Encounter for examination and observation following other accident; Translations: [Encounter for examination and observation following other accident] Onset: 05-02-2024 Episodic Other liver diseases (2 sources) Alkaline [...] without sciatica] 05-19-2023 Episodic Unclassified (1 source) Low back pain, unspecified; Translations: [Low back pain, unspecified] Onset: 07-14-2023 Past or Other Problems Problem Classification Problem Date Documented Date Episodic/Chronic Abdominal hernia (20 sources) Recurrent right inguinal hernia; Translations: [Unilateral inguinal hernia, without obstruction or gangrene, recurrent] Onset: 4 12-25-2013 Episodic Abdominal pain (20 sources) Epigastric pain; Translations: [Epigastric pain] Onset: 0 10-28-2009 Episodic Acute and unspecified renal failure (16 sources) Injury of kidney; Translations: [Acute kidney failure, unspecified] 01-11-2023 Episodic Acute cerebrovascular disease (20 sources) Intracranial hemorrhage; Translations: [Nontraumatic intracranial hemorrhage, unspecified] Onset: 3 Resolved: 3 12-24-2022 Chronic Cardiac dysrhythmias (20 sources) Bradycardia; Translations: [Bradycardia, unspecified] 01-11-2023 Episodic Coagulation and hemorrhagic disorders (20 sources) Non-thrombocytopenic purpura; Translations: [Other nonthrombocytopenic purpura] Onset: 3 Resolved: 3 Episodic Deficiency and other anemia (5 sources) Anemia; Translations: [Anemia, unspecified] Episodic Diabetes mellitus without complication (9 sources) Hyperglycemia; Translations: [Hyperglycemia, unspecified] 01-04-2023 Episodic Fluid and electrolyte disorders (20 sources) Hyponatremia; Translations: [Hypo-osmolality and hyponatremia] Episodic Fracture of upper limb (10 sources) Closed fracture of clavicle; Translations: [Fracture of unspecified part of right clavicle, initial encounter for closed fracture] Episodic Genitourinary symptoms and ill-defined conditions (2 sources) Increased frequency of urination; Translations: [Frequency of micturition] Onset: 1 02-04-2023 Episodic Malaise and fatigue (9 sources) Asthenia; Translations: [Other malaise] 01-11-2023 Episodic Other bone disease and musculoskeletal deformities (5 sources) Somatic dysfunction of rib; Translations: [Segmental and somatic dysfunction of rib cage] 01-04-2023 Episodic Other circulatory disease (8 sources) Low blood pressure; Translations: [Hypotension, unspecified] 01-01-2023 Episodic Other circulatory disease (5 sources) Hypotension, unspecified; Translations: [Hypotension, unspecified] 12-31-2022 Episodic Other circulatory disease (20 sources) Pulmonary congestion ; Translations: [Other specified symptoms and signs involving the circulatory and respiratory systems] Onset: 3 03-03-2023 Episodic Other connective tissue disease (20 sources) Rotator cuff tear arthropathy; Translations: [Unspecified rotator cuff tear or rupture of unspecified shoulder, not specified as traumatic] Onset: 3 06-21-2012 Episodic Other connective tissue disease (5 sources) Neuropathic pain; Translations: [Neuralgia and neuritis, unspecified] 12-31-2022 Episodic Other connective tissue disease (20 sources) Unspecified rotator cuff tear or rupture of unspecified shoulder, not specified as traumatic; Translations: [Rotator cuff (capsule) sprain] Onset: 1 Resolved: 2 06-23-2011 Episodic Other gastrointestinal disorders (5 sources) Dark stools; Translations: [Other fecal abnormalities] 01-01-2023 Episodic Other hematologic conditions (5 sources) History of anemia; Translations: [Personal history of diseases of the blood and blood-forming organs and certain disorders involving the immune mechanism] 01-11-2023 Episodic Other lower respiratory disease (20 sources) Cough; Translations: [Cough] Onset: 3 01-07-2023 Episodic Other lower respiratory disease (20 sources) Wheezing; Translations: [Wheezing] Onset: 3 03-03-2023 Episodic Other lower respiratory disease (4 sources) Cough; Translations: [Subacute cough] Onset: 3 03-03-2023 Episodic Other non-traumatic joint [...] Onset: 3 12-26-2022 Episodic Sprains and strains (20 sources) Sprain of shoulder rotator cuff; Translations: [Sprain of unspecified rotator cuff capsule, initial encounter] Onset: 2 Resolved: 3 06-21-2012 Episodic Superficial injury; contusion (8 sources) Right knee abrasion; Translations: [Abrasion, right knee, initial encounter] Episodic Syncope (9 sources) Syncope; Translations: [Syncope and collapse] 01-01-2023 Episodic Urinary tract infections (4 sources) Acute cystitis; Translations: [Acute cystitis without hematuria] 02-05-2023 Episodic Results Test Name Value Interpretation Reference Range Facility OV 11-01-2024 CNOV Office Visit ([facility] ) -- GYPSYATIF WATTERS ([id number]) 1935 M Date Time Provider Department 11/01/24 2:00 PM FABBY MOORE During your visit today, we recorded the following information about you: Pulse Respiration Blood pressure Weight 56/minute 18/minute 132/68 85.7 kg Fabby Moore APRN.CNP 11/01/2024 2:36 PM Signed 11/01/2024 Patient presents with: F/U 6 months: Moving into [facility] November 05 Recording using Watsin software for draft documentation of the visit was discussed with the patient/authorized consumer sales representative; all questions welcomed and answered. Patient/authorized consumer sales representative agreed to proceed SUBJECTIVE: This is a 89 year old, accompanied by daughter, that is here today for Above Complaints. Depression: - Managed with Zoloft; reports feeling okay. - Experiences occasional nightmares. - Denies issues with self-care or recognizing family and friends. BPH: - Managed with medication. - Urinates 2-3 times in the morning; uses a urinal at night. - Denies nocturia, hematuria, dysuria, or urinary straining. - Feels complete bladder emptying after the third morning void. HTN: - Managed with amlodipine. - Assisted living facility reportedly does not check BP frequently. 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 - Reports previous low sodium levels. Dementia: - Managed with Aricept. - Denies issues with self-care or recognizing family and friends. Mobility: - Uses a walker; denies recent falls. - Experiences pain when walking. - Denies LE edema, chest pain, or dyspnea. Living Situation: - Currently in assisted living at [facility]; moving to [place] on the . - Limited family visits; primary support from daughter. PAST MEDICAL HISTORY Diagnosis Date Abdominal pain, [...] Penicillins MEDICATIONS Current Outpatient Medications Medication Sig artificial tear, Hypromellose, 0.3 % drop Use 1 Drop in both eyes as needed. acetaminophen 325 mg cap Take 2 capsules [...] Social History Tobacco Use Smoking status: Former Current packs/day: 0.00 Types: Cigarettes Quit date: 06/07/1994 Years since quittin.4 Smokeless tobacco: Never Tobacco comments: quit 10 years ago Substance Use Topics Alcohol use: No Drug use: No REVIEW OF SYSTEMS All other reviewed and negative other than HPI. OBJECTIVE: BP 132/68 Pulse (!) 56 Resp 18 Wt 85.7 kg (189 lb) SpO2 96% BMI 31.45 kg/m? . Vital signs reviewed by this [...] suspicious rashes or lesions to exposed skin Latest Ref Rng 05/02/2024 WBC 3.70 - 11.00 k/uL 5.95 RBC 4.20 - 6.00 m/uL 3.68 (L) Hemoglobin 13.0 - 17.0 g/dL 12.3 (L) Hematocrit 39.0 - 51.0 % 37.9 (L) MCV 80.0 - 100.0 fL 103.0 (H) MCH 26.0 - 34.0 pg 33.4 MCHC 30.5 - 36.0 g/dL 32.5 RDW-CV 11.5 - 15.0 % 13.8 Platelet Count 150 - 400 k/uL 226 MPV 9.0 - 12.7 fL 13.0 (H) Neut% % 55.2 Abs Neut (ANC) 1.45 - 7.50 k/uL 3.28 Lymph% % 27.4 Abs Lymph 1.00 - 4.00 k/uL 1.63 Cole% % 10.4 Abs Cole (more content not included)... Normal [facility] Comprehensive metabolic 2000 panelon 11-01-2024 Albumin [Mass/Vol] 3.9 g/dL 3.9 - 4.9 g/dL [facility] ALP [Catalytic activity/Vol] 153 U/L High 38 - 113 U/L [facility] ALT [Catalytic activity/Vol] 35 U/L 10 - 54 U/L [facility] Anion gap [Moles/Vol] 10 mmol/L 8 - 15 mmol/L [facility] AST [Catalytic activity/Vol] 41 U/L High 14 - 40 U/L [facility] Bilirubin [Mass/Vol] 0.3 mg/dL 0.2 - 1 .3 mg/dL [facility] Calcium [Mass/Vol] 9.3 mg/dL 8.5 - 10. 2 mg/dL [facility] Chloride [Moles/Vol] 102 mmol/L 98 - 10 7 mmol/L [facility] CO2 [Moles/Vol] 24 mmol/L 22 - 30 mmol/L [facility] Creatinine [Mass/Vol] 1.33 mg/dL High 0.73 - 1.22 mg/dL [facility] GFR/1.73 sq M.predicted among non-blacks MDRD (S/P/Bld) [Vol rate/Area] 52 mL/min/{1.73_m2} Low - PINF [facility] Comment on above: Estimated Glomerular Filtration [...] not accurately reflect actual GFR. Glucose [Mass/Vol] 98 mg/dL 74 - 99 mg/dL [facility] Comment on above: The [place] Diabete s Association (ADA) provides guidance for [...] Standards of Medical Care in Diabetes 2016, [place] [employer]. Diabetes Care. 2016.39(Suppl 1). Interpretation and review of laboratory results Abnormal [facility] Potassium [Moles/Vol] 4.5 mmol/L 3.7 - 5.1 mmol/L [facility] Protein [Mass/Vol] 7.6 g/dL 6.3 - 8.0 g/dL [facility] Sodium [Moles/Vol] 136 mmol/L 136 - 144 mmol/L [facility] Urea nitrogen [Mass/Vol] 28 mg/dL High 9 - 24 mg/dL [facility] Albumin [Mass/Vol] 3.9 g/dL Normal 3.9-4.9 [facility] Comment on above: Order Comment: Speci men Type: BLOOD SPECIMENOrdering Facility: [facility] Address: [address] [place] [address] Performed By: #### 2 4323-8 ####[facility] LABCLIA [id number] [address] [place] [address] [place] ALP [Catalytic activity/Vol] 153 U/L High 38-113 [facility] Comment on above: Order Comment: Speci men Type: BLOOD SPECIMENOrdering Facility: [facility] Address: [facility] [place] [address] Performed By: #### 2 4323-8 ####[facility] LABCLIA [id number] [facility] [place] [id number] [place] ALT [Catalytic activity/Vol] 35 U/L Normal 10-54 [facility] Comment on above: Order Comment: Speci men Type: BLOOD SPECIMENOrdering Facility: [facility] Address: [address] [place] [address] Performed By: #### 2 4323-8 ####[facility] LABCLIA [id number] [address], [place] [address] [place] Anion gap [Moles/Vol] 10 mmol/L Normal 8-15 [facility] Comment on above: Order Comment: Speci men Type: BLOOD SPECIMENOrdering Facility: [facility] Address: [address] [place] [address] Performed By: #### 2 4323-8 ####[facility] LABCLIA [id number] [place] [address] [place] AST [Catalytic activity/Vol] 41 U/L High 14-40 [facility] Comment on above: Order Comment: Speci men Type: BLOOD SPECIMENOrdering Facility: [facility] Address: [address] [place] [address] Performed By: #### 2 4323-8 ####[facility] LABCLIA [id number] [place] [id number] [place] Bilirubin [Mass/Vol] 0.3 mg/dL Normal 0.2-1.3 [facility] Comment on above: Order Comment: Speci men Type: BLOOD SPECIMENOrdering Facility: [facility] Address: [address] [place] [address] Performed By: #### 2 4323-8 ####[facility] LABCLIA [id number] [facility] [address] [place] [address] [place] Calcium [Mass/Vol] 9.3 mg/dL Normal 8.5-10.2 [facility] Comment on above: Order Comment: Speci men Type: BLOOD SPECIMENOrdering Facility: [facility] Address: [address] [place], [place] [address] Performed By: #### 2 4323-8 ####[facility] LABCLIA [id number] [facility] [address] [place] [address] [place] Chloride [Moles/Vol] 102 mmol/L Normal 98-107 [facility] Comment on above: Order Comment: Speci men Type: BLOOD SPECIMENOrdering Facility: [facility] Address: [address] [place] [address] Performed By: #### 2 4323-8 ####[facility] LABCLIA [id number] [place] [id number] [place] CO2 [Moles/Vol] 24 mmol/L Normal 22-30 [facility] Comment on above: Order Comment: Speci men Type: BLOOD SPECIMENOrdering Facility: [facility] Address: [address] [place], [place] [address] Performed By: #### 2 4323-8 ####[facility] LABCLIA [id number] [place] [id number] [place] Creatinine [Mass/Vol] 1.33 mg/dL High 0.73-1.22 [facility] Comment on above: Order Comment: Speci men Type: BLOOD SPECIMENOrdering Facility: [facility] Address: [address] [place], [place] [address] Performed By: #### 2 4323-8 ####[facility] LABCLIA [id number] [address] [address] [place] Creatinine and Glomerular filtration rate.predicted panel (S/P/Bld) 52 mL/min/1.73m??? Low >=60 [facility] Comment on above: Order Comment: Blair kirk Type: BLOOD SPECIMENOrdering Facility: [facility] Address: [address] [place] [address] Result Comment: Birgit mated Glomerular Filtration Rate [...] actual GFR. Performed By: #### 2 4323-8 ####[facility] [id number] [place] [address] [place] Glucose [Mass/Vol] 98 mg/dL Normal 74-99 [facility] Comment on above: Order Comment: Blair kirk Type: BLOOD SPECIMENOrdering Facility: [facility] Address: [address] [place] [address] Result Comment: The [place] Diabetes Association (ADA) provides guidance for cutoff [...] Standards of Medical Care in Diabetes 2016, [place] [employer]. Diabetes Care. 2016.39(Suppl 1). Performed By: #### 2 4323-8 ####[facility] [id number] [place] [address] [place] Potassium [Moles/Vol] 4.5 mmol/L Normal 3.7-5.1 [facility] Comment on above: Order Comment: Blair kirk Type: BLOOD SPECIMENOrdering Facility: [facility] Address: [address] [place] [address] Performed By: #### 2 4323-8 ####[facility] LABCLIA [id number] [place] [address] [place] Protein [Mass/Vol] 7.6 g/dL Normal 6.3-8.0 [facility] Comment on above: Order Comment: Speci men Type: BLOOD SPECIMENOrdering Facility: [facility] Address: [address] [place] [address] Performed By: #### 2 4323-8 ####[facility] LABIA [id number] [place] [address] [place] Sodium [Moles/Vol] 136 mmol/L Normal 136-144 [facility] Comment on above: Order Comment: Speci men Type: BLOOD SPECIMENOrdering Facility: [facility] Address: [address] [place] [address] Performed By: #### 2 4323-8 ####[facility] LABIA [id number] [place] [address] [place] Urea nitrogen [Mass/Vol] 28 mg/dL High 9-24 [facility] Comment on above: Order Comment: Speci men Type: BLOOD SPECIMENOrdering Facility: [facility] Address: [address] [place] [address] Performed By: #### 2 4323-8 ####[facility] LABIA [id number] [place] [id number] [place] CNPJaylin 05-08-2024 CNPN Telephone (FAMPWS) -- ATIF COLÓN ([id number]) 1935 M Date Time Provider Department 05/08/24 JORDAN JOHNSON During your visit today, we recorded the following information about you: Iqra Campbell LPN 05/08/2024 2:24 PM Signed ----- Message from Jordan Johnson MD sent at 05/08/2024 11:29 AM EST ----- Labs show stable mild anemia, CKD stage III, high triglycerides, and mild elevation in alk phos which is also stable. Recommend low cholesterol/low sodium diet <2,000 mg per day, avoidance of NSAIDs, and increased water intake. No change in regimen. Iqra Campbell LPN 05/08/2024 2:29 PM Signed Phoned daughter Gilma and went over results, notes below from Dr Johnson with understanding. Allergies As of Date: 05/08/2024 Noted Allergy Reaction ASPIRIN 09/23/2010 8 - GI Upset PENICILLINS 10/28/2009 2 - Rash Date Reviewed: 05/02/2024 Reviewed by: Jessy Alas LPN - Fully Assessed Reason for Visit: Results [95] Prescriptions as of 05/08/2024 - artificial tear, Hypromellose, 0.3 % drop Use 1 Drop in both eyes as needed. - benzonatate (TESSALON PERLES) 100 mg capsule Take 1 capsule by mouth three times a day as needed. - cyclobenzaprine (FLEXERIL) 5 mg tablet Take [...] once daily. Problem List As Of Date 05/08/2024 Noted Resolved Abdominal Pain, Epigastric [R10.13] 10/28/2009 [...] 03/03/2023 Depression [F32.A] 04/01/2023 Encounter Status:Closed by IQRA CAMPBELL on 05/08/24 Normal [facility] Comprehensive metabolic 2000 panelon 05-03-2024 Albumin [Mass/Vol] 4.0 g/dL 3.9 - 4.9 g/dL [facility] ALP [Catalytic activity/Vol] 171 U/L High 38 - 113 U/L [facility] ALT [Catalytic activity/Vol] 37 U/L 10 - 54 U/L [facility] Anion gap [Moles/Vol] 12 mmol/L 8 - 15 mmol/L [facility] AST [Catalytic activity/Vol] 38 U/L 14 - 40 U/L [facility] Bilirubin [Mass/Vol] 0.3 mg/dL 0.2 - 1 .3 mg/dL [facility] Calcium [Mass/Vol] 9.2 mg/dL 8.5 - 10. 2 mg/dL [facility] Chloride [Moles/Vol] 103 mmol/L 98 - 10 7 mmol/L [facility] CO2 [Moles/Vol] 22 mmol/L 22 - 30 mmol/L [facility] Creatinine [Mass/Vol] 1.36 mg/dL High 0.73 - 1.22 mg/dL [facility] GFR/1.73 sq M.predicted among non-blacks MDRD (S/P/Bld) [Vol rate/Area] 51 mL/min/{1.73_m2} Low - PINF [facility] Comment on above: Estimated Glomerular Filtration [...] not accurately reflect actual GFR. Glucose [Mass/Vol] 98 mg/dL 74 - 99 mg/dL [facility] Comment on above: The [place] Diabete s Association (ADA) provides guidance for [...] Standards of Medical Care in Diabetes 2016, [place] [employer]. Diabetes Care. 2016.39(Suppl 1). Potassium [Moles/Vol] 4.7 mmol/L 3.7 - 5.1 mmol/L [facility] Protein [Mass/Vol] 7.4 g/dL 6.3 - 8.0 g/dL [facility] Sodium [Moles/Vol] 137 mmol/L 136 - 144 mmol/L [facility] Urea nitrogen [Mass/Vol] 27 mg/dL High 9 - 24 mg/dL [facility] LIPID PANEL, NONFASTINGon Cholesterol [Mass/Vol] 178 mg/dL NINF - 200 mg/dL [facility] Comment on above: <200 mg/dL, Desirabl e 200-239 mg/dL, Borderline high >239 mg/dL, High HDL Cholesterol, Nonfasting 44 mg/dL 39 - PINF mg/dL [facility] Comment on above: 40-59 mg/dL, Accepta ble >59 mg/dL, High: Negative risk factor for coronary heart disease <40 mg/dL, Low: Positive risk factor for coronary heart disease LDL Cholesterol, Nonfasting 88 mg/dL NINF - 100 mg/dL [facility] Comment on above: <100 mg/dL, Optimal 100-129 mg/dL, Near optimal/above optimal 130-159 mg/dL, Borderline high 160-189 mg/dL, High >189 mg/dL, Very high Secondary prevention optimal LDL Cholesterol levels are recommended to be < 70 mg/dL LDL/HDL Ratio, Nonfasting 2.00 mg/dL NINF - 2.54 mg/dL [facility] Comment on above: Reference: 1. National Cholesterol Education Program ATP III Guideline At-A-Glance Quick Desk Reference: National Heart, Lung, and Blood [place]. National Institutes of Health. 2001: NIH Publication No. 01-3305. 2. An International Atherosclerosis Society position paper: global recommendations for the management of dyslipidemia: executive summary, Atherosclerosis. 2014: 232(2):410-413. Non HDL Cholesterol, Nonfasting 134 mg/dL High NINF - 130 mg/dL [facility] Comment on above: <130 mg/dL, Optimal 130-159 mg/dL, Near optimal/above optimal 160-189 mg/dL, Borderline high 190-219 mg/dL, High >219 mg/dL, Very high Secondary prevention optimal non HDL Cholesterol levels are recommended to be <100 mg/dL Total Chol/HDL Ratio, Nonfasting 4.05 mg/dL NINF - 5.10 mg/dL [facility] Triglycerides, Nonfasting 230 mg/dL High NINF - 150 mg/dL [facility] Comment on above: <150 mg/dL, Normal 150-199 mg/dL, Borderline high 200-499 mg/dL, High >499 mg/dL, Very high VLDL Cholesterol, Nonfasting 46 mg/dL High NINF - 30 mg/dL [facility] No Panel Informationon 05-03 Interpretation and review of laboratory results Abnormal [facility] PSA/PROSTATE SPECIFIC ANTIGE N SCREENINGon 05-03-2024 Interpretation and review of laboratory results Normal [facility] Prostate specific Ag [Mass/Vol] 1.60 ng/mL NINF - 2.60 ng/mL [facility] Comment on above: Total PSA test metho dology used is the Electrochemiluminescence Immunoassay by [employer]. Total PSA values by differing methodologies cannot be interchanged. [facility] CBC W Auto Differential pane l (Bld)on 05-02-2024 Basophils (Bld) [#/Vol] 0.03 10*3/uL [facility] Basophils/100 WBC (Bld) 0.5 % [facility] Differential cell count method Nom (Bld) Auto [facility] Eosinophils (Bld) [#/Vol] 0.37 10*3/uL [facility] Eosinophils/100 WBC (Bld) 6.2 % [facility] Erythrocyte distribution width (RBC) [Ratio] 13.8 % 11.5 - 15.0 % [facility] Hematocrit (Bld) [Volume fraction] 37.9 % Low 39.0 - 51.0 % [facility] Hemoglobin (Bld) [Mass/Vol] 12.3 g/dL Low 13.0 - 17.0 g/dL [facility] Immature granulocytes (Bld) [#/Vol] [facility] Immature granulocytes/100 WBC (Bld) 0.3 % [facility] Interpretation and review of laboratory results Abnormal [facility] Lymphocytes (Bld) [#/Vol] 1.63 10*3/uL [facility] Lymphocytes/100 WBC (Bld) 27.4 % [facility] MCH (RBC) [Entitic mass] 33.4 pg 26. 0 - 34.0 pg [facility] MCHC (RBC) [Mass/Vol] 32.5 g/dL 30.5 - 36.0 g/dL [facility] MCV (RBC) [Entitic vol] 103.0 fL High 80.0 - 100.0 fL [facility] Monocytes (Bld) [#/Vol] 0.62 10*3/uL [facility] Monocytes/100 WBC (Bld) 10.4 % [facility] Neutrophils (Bld) [#/Vol] 3.28 10*3/uL [facility] Neutrophils/100 WBC (Bld) 55.2 % [facility] Nucleated RBC (Bld) [#/Vol] NINF [facility] Nucleated RBC/100 WBC (Bld) [Ratio] 0.0 % /100 WBC [facility] Platelet mean volume (Bld) [Entitic vol] 13.0 fL High 9.0 - 12.7 fL [facility] Platelets (Bld) [#/Vol] 226 10*3/uL [facility] RBC (Bld) [#/Vol] 3.68 10*6/uL Low 4.20 - 6.00 m/uL [facility] WBC (Bld) [#/Vol] 5.95 10*3/uL [facility] Basophils (Bld) [#/Vol] 0.03 10*3/uL Normal <0.11 [facility] Comment on above: Order Comment: Speci men Type: BLOOD SPECIMENOrdering Facility: [facility] Address: [address] [place] [address] Performed By: #### 5 7021-8 ####[facility] LABCLIA [id number] [place] [address] [place] Basophils/100 WBC (Bld) 0.5 % Normal [facility] Comment on above: Order Comment: Speci men Type: BLOOD SPECIMENOrdering Facility: [facility] Address: [address] [place] [address] Performed By: #### 5 7021-8 ####[facility] LABCLIA [id number] [place] [address] [place] Differential cell count method Nom (Bld) Auto Normal [facility] Comment on above: Order Comment: Speci men Type: BLOOD SPECIMENOrdering Facility: [facility] Address: [address] [place] [address] Performed By: #### 5 7021-8 ####[facility] LABCLIA [id number] [place] [address] [place] Eosinophils (Bld) [#/Vol] 0.37 10*3/uL Normal <0.46 [facility] Comment on above: Order Comment: Speci men Type: BLOOD SPECIMENOrdering Facility: [facility] Address: [address] [place] [address] Performed By: #### 5 7021-8 ####[facility] LABCLIA [id number] [place] [address] [place] Eosinophils/100 WBC (Bld) 6.2 % Normal [facility] Comment on above: Order Comment: Speci men Type: BLOOD SPECIMENOrdering Facility: [facility] Address: [address] [place] [address] Performed By: #### 5 7021-8 ####[facility] LABCLIA [id number] [place] [address] [place] Erythrocyte distribution width (RBC) [Ratio] 13.8 % Normal 11.5-15.0 [facility] Comment on above: Order Comment: Speci men Type: BLOOD SPECIMENOrdering Facility: [facility] Address: [address] [place] [address] Performed By: #### 5 7021-8 ####[facility] LABCLIA [id number] [place] [address] [place] Hematocrit (Bld) [Volume fraction] 37.9 % Low 39.0-51.0 [facility] Comment on above: Order Comment: Speci men Type: BLOOD SPECIMENOrdering Facility: [facility] Address: [address] [place] [address] Performed By: #### 5 7021-8 ####[facility] LABCLIA [id number] [place] [address] [place] Hemoglobin (Bld) [Mass/Vol] 12.3 g/dL Low 13.0-17.0 [facility] Comment on above: Order Comment: Speci men Type: BLOOD SPECIMENOrdering Facility: [facility] Address: [address] [place] [address] Performed By: #### 5 7021-8 ####[facility] LABCLIA [id number] [place] [address] [place] Immature granulocytes (Bld) [#/Vol] 10*3/uL Normal <0.10 [facility] Comment on above: Order Comment: Speci men Type: BLOOD SPECIMENOrdering Facility: [facility] Address: [address] [place] [address] Performed By: #### 5 7021-8 ####[facility] LABCLIA [id number] [place] [address] [place] Immature granulocytes/100 WBC (Bld) 0.3 % Normal [facility] Comment on above: Order Comment: Speci men Type: BLOOD SPECIMENOrdering Facility: [facility] Address: [address] [place] [address] Performed By: #### 5 7021-8 ####[facility] LABCLIA [id number] [place] [address] [place] Lymphocytes (Bld) [#/Vol] 1.63 10*3/uL Normal 1.00-4.00 [facility] Comment on above: Order Comment: Speci men Type: BLOOD SPECIMENOrdering Facility: [facility] Address: [address] [place] [address] Performed By: #### 5 7021-8 ####[facility] LABIA [id number] [place] [address] [place] Lymphocytes/100 WBC (Bld) 27.4 % Normal [facility] Comment on above: Order Comment: Speci men Type: BLOOD SPECIMENOrdering Facility: [facility] Address: [address] [place] [address] Performed By: #### 5 7021-8 ####[facility] [id number] [place] [address] [place] MCH (RBC) [Entitic mass] 33.4 pg Normal 26.0-34.0 [facility] Comment on above: Order Comment: Speci men Type: BLOOD SPECIMENOrdering Facility: [facility] Address: [address] [place] [address] Performed By: #### 5 7021-8 ####[facility] [id number] [place] [address] [place] MCHC (RBC) [Mass/Vol] 32.5 g/dL Normal 30.5-36.0 [facility] Comment on above: Order Comment: Speci men Type: BLOOD SPECIMENOrdering Facility: [facility] Address: [address] [place] [address] Performed By: #### 5 7021-8 ####[facility] LABIA [id number] [place] [address] [place] MCV (RBC) [Entitic vol] 103.0 fL High 80.0-100.0 C [facility] Comment on above: Order Comment: Speci men Type: BLOOD SPECIMENOrdering Facility: [facility] Address: [address] [place] [address] Performed By: #### 5 7021-8 ####[facility] [id number] [place] [address] [place] Monocytes (Bld) [#/Vol] 0.62 10*3/uL Normal <0.87 [facility] Comment on above: Order Comment: Speci men Type: BLOOD SPECIMENOrdering Facility: [facility] Address: [address] [place] [address] Performed By: #### 5 7021-8 ####[facility] LABCLIA [id number] [place] [address] [place] Monocytes/100 WBC (Bld) 10.4 % Normal [facility] Comment on above: Order Comment: Speci men Type: BLOOD SPECIMENOrdering Facility: [facility] Address: [address] [place] [address] Performed By: #### 5 7021-8 ####[facility] LABCLIA [id number] [place] [address] [place] Neutrophils (Bld) [#/Vol] 3.28 10*3/uL Normal 1.45-7.50 [facility] Comment on above: Order Comment: Speci men Type: BLOOD SPECIMENOrdering Facility: [facility] Address: [address] [place] [address] Performed By: #### 5 7021-8 ####[facility] LABCLIA [id number] [place] [address] [place] Neutrophils/100 WBC (Bld) 55.2 % Normal [facility] Comment on above: Order Comment: Speci men Type: BLOOD SPECIMENOrdering Facility: [facility] Address: [address] [place] [address] Performed By: #### 5 7021-8 ####[facility] LABCLIA [id number] [place] [address] [place] Nucleated RBC (Bld) [#/Vol] 10*3/uL Normal <0.01 [facility] Comment on above: Order Comment: Speci men Type: BLOOD SPECIMENOrdering Facility: [facility] Address: [address] [place] [address] Performed By: #### 5 7021-8 ####[facility] LABCLIA [id number] [place] [address] [place] Nucleated RBC/100 WBC (Bld) [Ratio] 0.0 /100 WBC Normal [facility] Comment on above: Order Comment: Speci men Type: BLOOD SPECIMENOrdering Facility: [facility] Address: [address] [place] [address] Performed By: #### 5 7021-8 ####[facility] LABCLIA [id number] [place] [address] [place] Platelet mean volume (Bld) [Entitic vol] 13.0 fL High 9.0-12.7 [facility] Comment on above: Order Comment: Speci men Type: BLOOD SPECIMENOrdering Facility: [facility] Address: [address] [place] [address] Performed By: #### 5 7021-8 ####[facility] LABCLIA [id number] [place] [address] [place] Platelets (Bld) [#/Vol] 226 10*3/uL Normal 150-400 [facility] Comment on above: Order Comment: Speci men Type: BLOOD SPECIMENOrdering Facility: [facility] Address: [address] [place] [address] Performed By: #### 5 7021-8 ####[facility] LABCLIA [id number] [place] [address] [place] RBC (Bld) [#/Vol] 3.68 10*6/uL Low 4.20-6.00 [facility] Comment on above: Order Comment: Speci men Type: BLOOD SPECIMENOrdering Facility: [facility] Address: [address] [place] [address] Performed By: #### 5 7021-8 ####[facility] LABCLIA [id number] [place] [id number] [place] WBC (Bld) [#/Vol] 5.95 10*3/uL Normal 3.70-11.00 [facility] Comment on above: Order Comment: Speci men Type: BLOOD SPECIMENOrdering Facility: [facility] Address: [address] [place] [address] Performed By: #### 5 7021-8 ####[facility] [id number] [place] [id number] [place] CNOVon 05-02-2024 CNOV Office Visit (FAMPWS ) -- ELDONATIF Mary Kate ([id number]) 1935 M Date Time Provider Department 05/02/24 2:20 PM [facility] During your visit today, we recorded the following information about you: Pulse Respiration Blood pressure Weight 62/minute 16/minute 136/64 85.8 kg Jordan Johnson MD 05/10/2024 1:05 PM Signed Chief Complaint Patient presents with: Follow Up: 6 month HPI Atif Colón is a 88 year old male who presents here today for Above Complaints. Accompanied today by daughter Gilma. Patient residing at [facility]. Nurses dispense his medications for him on a daily basis. BP well controlled on current regimen. Patient positive for COVID on 04/10 and symptoms have resolved without need for Paxlovid. Patient on Aricept for dementia. Daughter has not noticed any change in his memory and mood seems to be improved on his Zoloft. Denies SI/HI. On finasteride for BPH which seems to be working well for BPH. Denies weak stream, straining to urinate, dysuria, hematuria, nocturia. Due for PSA. Past medical history, appointments, medications, allergies reviewed. [...] on File Prior to Visit Medication Sig artificial tear, Hypromellose, 0.3 % drop Use 1 Drop in both eyes as needed. benzonatate (TESSALON PERLES) 100 mg capsule Take 1 capsule by mouth three times a day as needed. cyclobenzaprine (FLEXERIL) 5 mg tablet Take 1 [...] mouth once daily. No current facility-administered medications on file prior to visit. Social History Social History Tobacco Use Smoking status: Former Current packs/day: 0.00 Types: Cigarettes Quit date: 06/07/1994 Years since [...] for lesions, rash, and itching EXAM: BP 136/64 Pulse 62 Resp 16 Wt 85.8 kg (189 lb 3.2 oz) SpO2 97% BMI 31.48 kg/m? General Appearance: Well appearing, alert, in no acute distress, well-hydrated, well nourished.. Skin: Skin color, texture, turgor normal, no suspicious rashes or lesions. Lungs: Lungs clear to auscultation. No wheezing, rhonchi, rales.. Heart: RRR without murmur, gallop, or rubs. No ectopy. Abdomen: Normal abdominal exam, Abdomen soft, non-tender. Bowel sounds normal. No masses, organomegaly. Extremities: No deformities, edema, skin discoloration (more content not included)... Normal [facility] Comprehensive metabolic 2000 panelon 05-02-2024 Albumin [Mass/Vol] 4.0 g/dL Normal 3.9-4.9 [facility] Comment on above: Order Comment: Speci men Type: BLOOD SPECIMENOrdering Facility: [facility] Address: [address] [place] [address] Performed By: #### 2 4323-8, LIPNF ####[facility] LABCLIA [id number] [place] [address] [place] ALP [Catalytic activity/Vol] 171 U/L High 38-113 [facility] Comment on above: Order Comment: Speci men Type: BLOOD SPECIMENOrdering Facility: [facility] Address: [address] [place] [address] Performed By: #### 2 4323-8, LIPNF ####[facility] LABCLIA [id number] [place] [address] [place] ALT [Catalytic activity/Vol] 37 U/L Normal 10-54 [facility] Comment on above: Order Comment: Speci men Type: BLOOD SPECIMENOrdering Facility: [facility] Address: [address] [place] [address] Performed By: #### 2 4323-8, LIPNF ####[facility] LABCLIA [id number] [place] [address] [place] Anion gap [Moles/Vol] 12 mmol/L Normal 8-15 [facility] Comment on above: Order Comment: Speci men Type: BLOOD SPECIMENOrdering Facility: [facility] Address: [address] [place] [address] Performed By: #### 2 4323-8, LIPNF ####[facility] LABCLIA [id number] [place] [address] [place] AST [Catalytic activity/Vol] 38 U/L Normal 14-40 [facility] Comment on above: Order Comment: Speci men Type: BLOOD SPECIMENOrdering Facility: [facility] Address: [address] [place] [address] Performed By: #### 2 4323-8, LIPNF ####[facility] LABCLIA [id number] [place] [address] [place] Bilirubin [Mass/Vol] 0.3 mg/dL Normal 0.2-1.3 [facility] Comment on above: Order Comment: Speci men Type: BLOOD SPECIMENOrdering Facility: [facility] Address: [address] [place] [address] Performed By: #### 2 4323-8, LIPNF ####[facility] LABCLIA [id number] [place] [address] [place] Calcium [Mass/Vol] 9.2 mg/dL Normal 8.5-10.2 [facility] Comment on above: Order Comment: Speci men Type: BLOOD SPECIMENOrdering Facility: [facility] Address: [address] [place] [address] Performed By: #### 2 4323-8, LIPNF ####[facility] LABCLIA [id number] [place] [address] [place] Chloride [Moles/Vol] 103 mmol/L Normal 98-107 [facility] Comment on above: Order Comment: Speci men Type: BLOOD SPECIMENOrdering Facility: [facility] Address: [address] [place] [address] Performed By: #### 2 4323-8, LIPNF ####[facility] LABCLIA [id number] [place] [address] [place] CO2 [Moles/Vol] 22 mmol/L Normal 22-30 [facility] Comment on above: Order Comment: Speci men Type: BLOOD SPECIMENOrdering Facility: [facility] Address: [address] [place] [address] Performed By: #### 2 4323-8, LIPNF ####[facility] LABCLIA [id number] [place] [address] [place] Creatinine [Mass/Vol] 1.36 mg/dL High 0.73-1.22 [facility] Comment on above: Order Comment: Speci men Type: BLOOD SPECIMENOrdering Facility: [facility] Address: [address] [place] [address] Performed By: #### 2 4323-8, LIPNF ####[facility] LABCLIA [id number] [place] [address] [place] Creatinine and Glomerular filtration rate.predicted panel (S/P/Bld) 51 mL/min/1.73m??? Low >=60 [facility] Comment on above: Order Comment: Speci men Type: BLOOD SPECIMENOrdering Facility: [facility] Address: [address] [place] [address] Result Comment: Birgit mated Glomerular Filtration Rate [...] reflect actual GFR. Performed By: #### 2 4323-8, LIPNF ####[facility] LABCLIA [id number] [place] [address] [place] Glucose [Mass/Vol] 98 mg/dL Normal 74-99 [facility] Comment on above: Order Comment: Blair kirk Type: BLOOD SPECIMENOrdering Facility: [facility] Address: [address] [place] [address] Result Comment: The [place] [employer] (ADA) provides guidance for cutoff [...] Standards of Medical Care in Diabetes 2016, [place] [employer]. Diabetes Care. 2016.39(Suppl 1). Performed By: #### 2 4323-8, LIPNF ####[facility] LABIA [id number] [place] [id number] [place] Potassium [Moles/Vol] 4.7 mmol/L Normal 3.7-5.1 [facility] Comment on above: Order Comment: Blair kirk Type: BLOOD SPECIMENOrdering Facility: [facility] Address: [address] [place] [address] Performed By: #### 2 4323-8, LIPNF ####[facility] LABCLIA [id number] [place] [address] [place] Protein [Mass/Vol] 7.4 g/dL Normal 6.3-8.0 [facility] Comment on above: Order Comment: Speci men Type: BLOOD SPECIMENOrdering Facility: [facility] Address: [address] [place] [address] Performed By: #### 2 4323-8, LIPNF ####[facility] LABCLIA [id number] [place] [address] [place] Sodium [Moles/Vol] 137 mmol/L Normal 136-144 [facility] Comment on above: Order Comment: Speci men Type: BLOOD SPECIMENOrdering Facility: [facility] Address: [address] [place] [address] Performed By: #### 2 4323-8, LIPNF ####[facility] LABCLIA [id number] [place] [address] [place] Urea nitrogen [Mass/Vol] 27 mg/dL High 9-24 [facility] Comment on above: Order Comment: Speci men Type: BLOOD SPECIMENOrdering Facility: [facility] Address: [address] [place] [address] Performed By: #### 2 4323-8, LIPNF ####[facility] LABCLIA [id number] [place] [address] [place] LIPID PANEL, NONFASTINGon Cholesterol [Mass/Vol] 178 mg/dL Normal <200 [facility] Comment on above: Order Comment: Speci men Type: BLOOD SPECIMENOrdering Facility: [facility] Address: [address] [place] [address] Result Comment: <200 mg/dL, Desirable 200-239 mg/dL, Borderline high >239 mg/dL, High Performed By: #### 2 4323-8, LIPNF ####[facility] LABCLIA [id number] [address] [place] HDL CHOLESTEROL, NF 44 mg/dL Normal >39 [facility] Comment on above: Order Comment: Blair kirk Type: BLOOD SPECIMENOrdering Facility: [facility] Address: [address] [place] [address] Result Comment: 40-5 9 mg/dL, Acceptable >59 mg/dL, High: Negative risk factor for coronary heart disease <40 mg/dL, Low: Positive risk factor for coronary heart disease Performed By: #### 2 4323-8, LIPNF ####[facility] LABCLIA [id number] [address] OF [facility] LDL CHOLESTEROL, NF 88 mg/dL Normal <100 [facility] Comment on above: Order Comment: Blair kirk Type: BLOOD SPECIMENOrdering Facility: [facility] Address: [address] [place] [address] Result Comment: <100 mg/dL, Optimal 100-129 mg/dL, Near optimal/above optimal 130-159 mg/dL, Borderline high 160-189 mg/dL, High >189 mg/dL, Very high Secondary prevention optimal LDL Cholesterol levels are recommended to be < 70 mg/dL Performed By: #### 2 4323-8, LIPNF ####[facility] LABCLIA [id number] [address] [place] LDL/HDL RATIO, NF 2.00 mg/dL Normal <2.54 [facility] Comment on above: Order Comment: Blair kirk Type: BLOOD SPECIMENOrdering Facility: [facility] Address: [address] [place] [address] Result Comment: Refjeremias godinez: 1. National Cholesterol Education Program ATP III Guideline At-A-Glance Quick Desk Reference: National Heart, Lung, and Blood [place]. National Institutes of Health. 2001: NIH Publication No. 01-3305. 2. An International Atherosclerosis Society position paper: global recommendations for the management of dyslipidemia: executive summary, Atherosclerosis. 2014: 232(2):410-413. Performed By: #### 2 4323-8, LIPNF ####[facility] LABCLIA [id number] [place] [address] [place] NON HDL CHOL, NF 134 mg/dL High <130 [facility] Comment on above: Order Comment: Speci men Type: BLOOD SPECIMENOrdering Facility: [facility] Address: [address] [place] [address] Result Comment: <130 mg/dL, Optimal 130-159 mg/dL, Near optimal/above optimal 160-189 mg/dL, Borderline high 190-219 mg/dL, High >219 mg/dL, Very high Secondary prevention optimal non HDL Cholesterol levels are recommended to be <100 mg/dL Performed By: #### 2 4323-8, LIPNF ####[facility] LABCLIA [id number] [place] [address] [place] T CHOL/HDL RATIO NF 4.05 mg/dL Normal <5.10 [facility] Comment on above: Order Comment: Speci men Type: BLOOD SPECIMENOrdering Facility: [facility] Address: [address] [place] [address] Performed By: #### 2 4323-8, LIPNF ####[facility] LABCLIA [id number] [place] [address] [place] TRIGLYCERIDES, NF 230 mg/dL High <150 [facility] Comment on above: Order Comment: Speci men Type: BLOOD SPECIMENOrdering Facility: [facility] Address: [address] [place] [address] Result Comment: <150 mg/dL, Normal 150-199 mg/dL, Borderline high 200-499 mg/dL, High >499 mg/dL, Very high Performed By: #### 2 4323-8, LIPNF ####[facility] LABCLIA [id number] [place] [address] [place] VLDL CHOLESTEROL, NF 46 mg/dL High <30 [facility] Comment on above: Order Comment: Speci men Type: BLOOD SPECIMENOrdering Facility: [facility] Address: [address] [place] [address] Performed By: #### 2 4323-8, LIPNF ####[facility] LABCLIA [id number] [place] [address] [place] PSA/PROSTATE SPECIFIC ANTIGE N SCREENINGon 05-02-2024 Prostate specific Ag [Mass/Vol] 1.60 ng/mL Normal <2.60 [facility] Comment on above: Order Comment: Speci men Type: BLOOD SPECIMENOrdering Facility: [facility] Address: [address] [place] [address] Result Comment: Juan pickett PSA test methodology used is the Electrochemiluminescence Immunoassay by [employer]. Total PSA values by differing methodologies cannot be interchanged. Performed By: #### P SAS1 ####[facility] LABCLIA [id number] [place] [address] [place] CNCOon 04-26-2024 CNCO Letter Text Normal [facility] CNPNon 04-17-2024 CNPN Telephone (FAMWS) -- ATIF COLÓN ([id number]) 1935 M Date Time Provider Department 04/17/24 JORDAN JOHNSON [facility] During your visit today, we recorded the following information about you: Jordan Johnson MD 04/17/2024 2:29 PM Signed [facility] requesting rx for artificial tears for intermittent burning eyes. Rx sent. Allergies As of Date: 04/17/2024 Noted Allergy Reaction ASPIRIN 09/23/2010 8 - GI Upset PENICILLINS 10/28/2009 2 - Rash Date Reviewed: 10/25/2023 Reviewed by: Rosenda Vitale LPN - Fully Assessed Reason for Visit: Orders [681] Order(s):artificial tear, Hypromellose, 0.3 % dropUse 1 Drop in both eyes as needed.Disp: 15 mLRfl: 2 Prescriptions as of 04/19/2024 - artificial tear, Hypromellose, 0.3 % drop Use 1 Drop in both eyes as needed. - benzonatate (TESSALON PERLES) 100 mg capsule Take 1 capsule by mouth three times a day as needed. - cyclobenzaprine (FLEXERIL) 5 mg tablet Take [...] once daily. Problem List As Of Date 04/17/2024 Noted Resolved Abdominal Pain, Epigastric [R10.13] 10/28/2009 [...] ordered this encounter Disp Refills Start End ARTIFICIAL TEARS (HYPROMELLOSE) 0.3 * 15 mL 2 04/17/2024 Route: BOTH EYES Sig: Use 1 Drop in both eyes as needed. Encounter Status:Closed by MONICA MALONEY on 04/19/24 [facility] ATIF [facility] ([id number]) 1935 M Date Time Provider Department 04/12/24 BURSLEY, CHRISTOPHER B FAMPWS During your visit today, we recorded the following information about you: Aaron Awan, RN 04/12/2024 2:43 PM Signed Lalo, daughter, phoned from [place], to report patient has covid and wants to take OTC cough medicine. Lalo's sister bought Muninex DM 20 ml q4h. Nurses say they cannot give this to patient without a doctor's order. Asking if Dr. Johnson will send order to [facility], so nurses will give him the cough medicine. PodlogarFabby APRN.EZ 04/12/2024 3:27 PM Signed Mucinex DM is a decongestant and an expectorant not a cough suppressant. Does he have chest congestion if so he can take plain Mucinex for that. If they want something for a cough I would say to take Coricidin or we could order Tessalon Perles. Fabby Collazologar, INTEGRATED CIRCUIT DESIGN ENGINEER.Aaron Dumont, KATARZYNA 04/12/2024 4:16 PM Signed Phoned Lalo and given provider's message below. Reports patient is having a cough, doesn't seem to be having congestion. If he gets congestion she will let provider know. Lalo reports she is a nurse. Also asking provider to send fax to let them know tessalon perles was sent to [facility], and ok for patient to take it. Lalo asking provider to send tessalon perles to [facility]. PodlogFabby christopher APRN.EZ 04/12/2024 4:23 PM Signed Prescription for Tessalon Perles sent to pharmacy. Fabby Podlogar, INTEGRATED CIRCUIT DESIGN ENGINEER.Rosenda Pace LPN 04/12/2024 8:01 PM Signed Rx faxed to [facility]. Telephone call placed to [facility] to speak with a nurse. No answer, phone just rings and rings. Call placed to daughter Shadi to make aware that Rx was faxed per her request. Shadi voiced that she wanted provider to be aware that patient fell x3 yesterday due to weakness from being sick. Nothing has been received from [facility] at this time regarding. Patient was sent to [facility] because one fall he did hit his head. ER report and imaging printed, placed in PCP inbox. Asking if PCP has any advice for safety measures. [facility] did offer to have an extra staff member be on the floor and had family pay for this but this does not guarantee 1:1 care. Is wondering if patient should be moved to a more hands on area for a higher level of care for a short time in this time of need. Shadi instructed to ask [facility] if they have a higher level of care for an acute need in the skilled area. Shadi will call and ask tomorrow 04/13. Please advise. MIMI Santana Christopher B, MD 04/13/2024 8:47 AM Signed I would see if they have higher level care for acute need and agree with extra staff member on the floor. If he was eligible for Paxlovid or Lagevrio would need VV. Jessy Alas LPN 04/13/2024 1:40 PM Signed Phoned patient's daughter Shadi and reviewed message with her. She voiced understanding. She stated patient seems to have improved since he slept well last night after receiving the tessalon pearls. She believes patient is on day 4 of COVID so doesn't feel paxlovid would be necessary. Jessy Alas LPN Allergies As of Date: 04/12/2024 Noted Allergy Reaction ASPIRIN 09/23/2010 8 - GI Upset PENICILLINS 10/28/2009 2 - Rash Date Reviewed: 10/25/2023 Reviewed by: Rosenda Vitale LPN - Fully Assessed Reason for Visit: Patient Question [0388] Order(s):benzonatate (TESSALON PERLES) 100 mg capsuleTake 1 capsule by mouth three times a day as needed.Disp: 30 capsuleRfl: 0 Prescriptions as of 04/13/2024 - benzonatate (TESSALON PERLES) 100 mg capsule Take 1 capsule by mouth three times a day as needed. - cyclobenzaprine (FLEXERIL) 5 mg tablet Take [...] once daily. Problem List As Of Date 04/12/2024 Noted Resolved Abdominal Pain, Epigastric [R10.13] 10/28/2009 Rotator cuff tear [M75.100] 09/30/2010 06/23/2011 Rotator cuff (capsule) sprain [S43.429A] 03/16/2012 06/21/2012 Rotator cuff tear arthropathy [M75.100, M12.819]06/21/2012 Recurrent right inguinal hernia [K40.91] 12/25/2013 Essential hypertens (more content not included)... Normal [facility] ATIF COLÓN ([id number]) 1935 M Date Time Provider Department 04/11/24 JORDAN JOHNSON [facility] During your visit today, we recorded the following information about you: Jessy Alas LPN 04/11/2024 1:44 PM Signed Received fax notification from [facility] that patient tested positive for COVID on 04/10/24. PCP noted and asking if patient wanted VV to discuss Paxlovid treatment. Contacted [facility] and charge nurse unavailable. Viticulture Teacher advised she would have her call back in. MIMI Maradiaga Michelle, LPN 04/12/2024 8:02 PM Signed Call placed to [facility], phone just rings and rings. Unable to leave a message. MIMI Santana Lori, LPN 04/13/2024 3:27 PM Signed Spoke with patient's daughter Shadi today regarding another TE and discussed paxlovid with her. She stated she believed patient was on Day 4 of covid symptoms and feels patient is improving. Declined need at this time. Jessy Alas LPN Allergies As of Date: 04/11/2024 Noted Allergy Reaction ASPIRIN 09/23/2010 8 - GI Upset PENICILLINS 10/28/2009 2 - Rash Date Reviewed: 10/25/2023 Reviewed by: Rosenda Vitale LPN - Fully Assessed Reason for Visit: Patient Update [1234] Prescriptions as of 04/13/2024 - benzonatate (TESSALON PERLES) 100 mg capsule Take 1 capsule by mouth three times a day as needed. - cyclobenzaprine (FLEXERIL) 5 mg tablet Take [...] once daily. Problem List As Of Date 04/11/2024 Noted Resolved Abdominal Pain, Epigastric [R10.13] 10/28/2009 [...] 04/01/2023 Encounter Status:Closed by JESSY ALAS on 04/13/24 Normal [facility] Emergency Department Summary on 04-11-2024 Emergency Department Summary [facility] Medical Records Department [address] [place] [address] Emergency Department Summary 04/11/24 MR#: [id number] Acct: [id number] Name: ATIF COLÓN Sr. Rep #: [id number] : 1935 88 From: Kev Vargas DO PCP: Dr. Jaime Johnson MD Status:DEP ER Location: ED HPI HPI - Fall History of Present Illness Chief Complaint: Fall PFSH PFSH Medical History (Updated 04/11/24 @ 19:35 by Madalyn Galvan) COVID-19 Dementia with behavioral problem Osteoarthritis Abnormal CT of the abdomen Anemia Acute kidney injury Chronic renal failure, stage 3a H/O normocytic normochromic anemia Somatic dysfunction of rib Neuropathic pain A-fib Fall Restless legs syndrome GERD (gastroesophageal reflux disease) BPH (benign prostatic hyperplasia) Hypertension Home Medications ???Medication ???Instructions ???Recorded ???Last Taken ???Type multivitamin 1 ea PO DAILY supplement 07/02/15 Unknown History finasteride 5 mg tablet 5 mg PO QDAY urinary retention 05/17/17 Unknown History amlodipine 2.5 mg tablet 2.5 mg PO DAILY blood pressure 12/31/22 Unknown History ferrous sulfate 325 mg (65 mg 325 mg PO DAILY suppliment 12/31/22 12/31/22 History iron) tablet (FeroSul) acetaminophen 325 mg tablet 650 mg (2 x 325 mg) PO Q6H PRN PRN 01/11/23 Unknown Rx Pain Score 1-10 #1 TAB donepezil 5 mg tablet 5 mg PO QHS memory #0 tabs 02/02/23 Unknown Rx pantoprazole 40 mg tablet,delayed 40 mg PO BID reflux #60 tabs 02/02/23 Unknown Rx release ondansetron 4 mg disintegrating 4 mg PO Q8H nausea 02/04/23 Unknown History tablet nitrofurantoin macrocrystal 100 mg 100 mg PO BID 5 days #10 caps 02/06/23 Unknown Rx capsule peg [id number] 1 1 drp EACH EYE Q1H PRN PRN DRY 02/06/23 Unknown Rx %-0.2 %-0.2 % eye drops EYES #0 mL (Artificial Tears ([id number]) ) ascorbate calcium (vitamin C) 500 1 g PO DAILY 02/09/23 Unknown History mg tablet calcium 600 mg (as 1 tab PO DAILY 02/09/23 Unknown History carbonate)-vitamin D3 10 mcg (400 unit) tablet doxazosin 1 mg tablet 2 mg PO QHS 02/09/23 Unknown History gabapentin 300 mg capsule 300 mg PO QHS 02/09/23 Unknown History hydroxyzine pamoate 50 mg capsule 50 mg PO QHS PRN 02/09/23 Unknown History (Vistaril) magnesium chloride 64 mg 128 mg PO DAILY 02/09/23 Unknown History (magnesium chloride) tablet melatonin 5 mg capsule 10 mg PO QHS sleep 02/09/23 Unknown History meloxicam 15 mg tablet 15 mg PO DAILY 02/09/23 Unknown History polyethylene glycol 3350 17 4 g PO DAILY 02/09/23 Unknown History gram/dose oral powder (Miralax) cyclobenzaprine 10 mg tablet 10 mg PO TID PRN Muscle Spasm #20 05/21/23 Unknown Rx TABLETS sertraline 50 mg tablet 50 mg PO DAILY 04/11/24 Unknown History Allergy/AdvReac Type Severity Reaction Status Date / Time aspirin Allergy Unknown Unknown Verified 04/11/24 16:58 Penicillins Allergy Rash Verified 04/11/24 16:58 Family History Mother Cirrhosis of liver Surgical History Unspecified nasal polyp S/P right rotator cuff repair H/O hernia repair Hx of cholecystectomy Social History household members: spouse housing: assisted living facility current occupational status: retired Smoking Status: Former smoker how long ago did patient quit smokin years ago EXAM Physical Exam Const Vital Signs: 04/11/24 16:58 04/11/24 19:34 04/11/24 19:34 Temperature 98 F 98.0 F Temperature Source Oral Pulse Rate 84 78 Respiratory Rate 16 18 Respiratory Effort Short of Breath Labored Respiratory Depth Shallow Respiratory Pattern Tachypnea Blood Pressure 141/74 H 171/68 H Blood Pressure Mean 96 102 Pulse Ox 98 98 98 Oxygen Delivery Method Room Air Room Air Room Air 04/11/24 20:56 04/11/24 21:00 Temperature 99.8 F H Temperature Source Pulse Rate 78 78 Respiratory Rate 20 H 20 H Respiratory Effort Respiratory Depth Respiratory Pattern Blood Pressure 161/54 H 161/54 H Blood Pressure Mean 89 89 Pulse Ox 98 98 Oxygen Delivery Method Room Air MDM MDM MDM Narrative Medical decision making narrative: HISTORY OF PRESENT ILLNESS: 88-year-old male presents after fall. No head trauma. Notes he fell trying to sit in a recliner. Notes that the left side of his head, right shoulder right hip he also has a wound to his right arm. Patient denies head trauma. REVIEW OF SYSTEMS: Pertinent positives: right shoulder pain, right hip pain, left-sided head pain Pertinent negatives: Loss of consciousness PHYSICAL EXAM: (more content not included)... Normal [facility] HIP, UNI W/ Pelvis 2-3 Views on 04-11-2024 HIP, UNI W/ Pelvis 2-3 Views [facility] Imaging Services [address] [place], [place] [id number] HIP, UNI W/ Pelvis 2-3 Views MR#: [id number] Acct: [id number] Name: ATIF COLÓN Rep #: [id number] : 1935 M 88 From: Bunny Kline DO PCP: Status: PRE ER Study: HIP, UNI W/ Pelvis 2-3 Views Date of Exam: 10/28 Exam# [id number] Ordering Dr: Kev Vargas DO [id number] INDICATION: FALL EXAMINATION/TECHNIQUE: X-RAY - XR Right Hip Unilateral with Pelvis when performed; 3 Views COMPARISON: FINDINGS: PELVIC BONES: No displaced fracture, destructive or sclerotic lesions. Note that overlapping bowel shadows may however obscure fine detail. Sacroiliac joints are unremarkable. No widening of the pubic symphysis. Lower lumbar degenerative changes. HIPS: The articular structures are unremarkable. No displaced fracture seen in this frontal view. SOFT TISSUES: No soft tissue swelling or gas. RAD/HIP, UNI W/ Pelvis 2-3 Views IMPRESSION: No evidence of displaced pelvic or hip fracture. Electronically Signed: Bunny Kline DO at 18:36 EST , CC: Dr. Kev Vargas DO Ob/Gyn: Signed Normal [facility] Shoulder min 2 Viewson 04-11 Shoulder min 2 Views [facility] Imaging Services [address] [place], [place] [address] Shoulder min 2 Views MR#: [id number] Acct: [id number] Name: ATIF COLÓN Sr. Rep #: [id number] : 1935 M 88 From: Bunny Kline DO PCP: Status: PRE ER Study: Shoulder min 2 Views Date of Exam: 04/11/24 Exam# [id number] Ordering Dr: Kev Vargas DO [id number] INDICATION: FALL EXAMINATION/TECHNIQUE: X-RAY - RIGHT XR Shoulder 4 VIEWS COMPARISON: FINDINGS: SOFT TISSUES: No soft tissue swelling or gas. No radiopaque foreign body. Probable previous rotator cuff surgery. BONES/JOINTS: No acute fracture or subluxation.. Degenerative hypertrophy at the acromioclavicular articulation.. No sclerotic or destructive changes observed. RAD/Shoulder min 2 Views IMPRESSION: Degenerative changes. Electronically Signed: Bunny Kline DO at 17:46 EST , CC: Dr. Kev Vargas DO Ob/Gyn: Signed Normal [facility] Comprehensive metabolic 2000 panelon 10-25-2023 Albumin [Mass/Vol] 3.9 g/dL 3.9 - 4.9 g/dL [facility] ALP [Catalytic activity/Vol] 141 U/L High 38 - 113 U/L [facility] ALT [Catalytic activity/Vol] 26 U/L 10 - 54 U/L [facility] Anion gap [Moles/Vol] 10 mmol/L 9 - 18 mmol/L [facility] AST [Catalytic activity/Vol] 32 U/L 14 - 40 U/L [facility] Bilirubin [Mass/Vol] 0.2 mg/dL 0.2 - 1 .3 mg/dL [facility] Calcium [Mass/Vol] 9.4 mg/dL 8.5 - 10. 2 mg/dL [facility] Chloride [Moles/Vol] 101 mmol/L 97 - 10 5 mmol/L [facility] CO2 [Moles/Vol] 24 mmol/L 22 - 30 mmol/L [facility] Creatinine [Mass/Vol] 1.35 mg/dL High 0.73 - 1.22 mg/dL [facility] GFR/1.73 sq M.predicted among non-blacks MDRD (S/P/Bld) [Vol rate/Area] 51 mL/min/{1.73_m2} Low - PINF [facility] Comment on above: Estimated Glomerular Filtration [...] [Mass/Vol] 97 mg/dL 74 - 99 mg/dL [facility] Comment on above: The [place] Diabete s Association (ADA) provides guidance for [...] Standards of Medical Care in Diabetes 2016, [place] Diabetes Association. Diabetes Care. 2016.39(Suppl 1). Interpretation and review of laboratory results Abnormal [facility] Potassium [Moles/Vol] 5.1 mmol/L 3.7 - 5.1 mmol/L [facility] Protein [Mass/Vol] 7.2 g/dL 6.3 - 8.0 g/dL [facility] Sodium [Moles/Vol] 135 mmol/L Low 136 - 144 mmol/L [facility] Urea nitrogen [Mass/Vol] 29 mg/dL High 9 - 24 mg/dL [facility] Abdomen/Pelvis without Conto n 05-21-2023 Abdomen/Pelvis without Cont [facility] Imaging Services [address] [place] [address] Abdomen/Pelvis without Cont MR#: [id number] Acct: [id number] Name: ATIF COLÓN SR Rep #: [id number] : 1935 M 87 From: Travis teixeira MD PCP: Dr. Jaime Johnson MD Status: PRE ER Study: Abdomen/Pelvis without Cont Date of Exam: 05/07 10/27 Exam# [id number] Ordering Dr: Connor Augustin DO [id number] STUDY: CT ABDOMEN AND PELVIS WITHOUT CONTRAST REASON FOR EXAM: Male, 87 years old. Left back and hip pain after fall RADIATION DOSAGE (If Supplied By Facility): CTDIvol = ( 15.47 ) mGy, DLP = ( 803.90 ) mGycm TECHNIQUE: Transaxial images were obtained from the dome of the diaphragm to the symphysis pubis without oral contrast, and without intravenous contrast. Sagittal and coronal images were reconstructed. Individualized dose optimization techniques were used for this CT. COMPARISON: None. FINDINGS: Increased markings in the anterior aspect of the right middle lobe suggestive of atelectasis. Coronary artery calcification. Normal liver. The patient is status post cholecystectomy. Normal spleen. Normal pancreas. Normal bilateral adrenal glands. Normal right kidney. Normal left kidney. Normal visualized stomach. Normal small intestine. Normal colon. The appendix is visualized and appears normal. There is diffuse atherosclerotic calcification of the abdominal aorta, without a demonstrated aneurysm. Normal inferior vena cava. Normal retroperitoneum. Distended urinary bladder. Small left inguinal hernia containing a nondilated loop of colon. There are diffuse degenerative changes of the visualized lumbar spine. CT/Abdomen/Pelvis without Cont IMPRESSION: Increased markings in the right middle lobe suggestive of atelectasis. Distended urinary bladder. Small left inguinal hernia containing nondilated loop of bowel. Electronically Signed: Travis Rosario MD at 15:10 EST , CC: Dr. Jaime Johnson MD; Dr. Connor Augustin DO Ob/Gyn: Signed Normal [facility] Absolute lymphocyte countOrd ered By: Connor Augustin on 05-21-2023 Lymphocytes Auto (Unsp spec) [#/Vol] 1.62 10*3/uL 0.83-4.51 [facility] Basic Metabolic Profile (BMP )on 05-21-2023 BUN/CRE 19.5 RATIO Normal 10-20 [facility] Comment on above: Performed By: #### L 100.0100, L500.2500 #### [facility] [address] [facility] [place], [address] CA,Total 9.5 mg/dL Normal 8.5-10.1 [facility] Comment on above: Performed By: #### L 100.0100, L500.2500 #### [facility] [address] [place], [address] Chloride [Moles/Vol] 101 mmol/L Normal 98-107 [facility] Comment on above: Performed By: #### L 100.0100, L500.2500 #### [facility] [address] [place], [address] CO2 [Moles/Vol] 29.0 mmol/L Normal 21.0-32.0 [facility] Comment on above: Performed By: #### L 100.0100, L500.2500 #### [facility] [address] [place], [address] Creatinine [Mass/Vol] 1.33 mg/dL High 0.70-1.30 [facility] Comment on above: Result Comment: The validity of the calculated GFR GFRAA in patients over 70 years has not been determined. Clinical correlation is essential. Performed By: #### L 100.0100, L500.2500 #### [facility] [address] [place], [address] ECRCL 35.32 ml/min Normal [facility] Comment on above: Performed By: #### L 100.0100, L500.2500 #### [facility] [address] [place], [address] EST GFR - AA 66 mL/min Normal >60 [facility] Comment on above: Result Comment: Afri can Pakistani GFR Calc Performed By: #### L 100.0100, L500.2500 #### [facility] [address] [place], [address] GAP 5 Normal 5-15 [facility] Comment on above: Performed By: #### L 100.0100, L500.2500 #### [facility] [address] [place], [address] GFR/1.73 sq M.predicted among non-blacks MDRD (S/P/Bld) [Vol rate/Area] 54 mL/min/{1.73_m2} Low >60 [facility] Comment on above: Result Comment: Non- GFR Calc Performed By: #### L 100.0100, L500.2500 #### [facility] [address] [place], [address] Glucose [Mass/Vol] 105 mg/dL Normal 74-106 [facility] Comment on above: Result Comment: Fast ing Glucose result from 100 to 125 mg/dL suggests IMPAIRED HOMEOSTASIS per A.D.A. criteria. Performed By: #### L 100.0100, L500.2500 #### [facility] [address] [place], [address] Potassium [Moles/Vol] 4.3 mmol/L Normal 3.5-5.1 [facility] Comment on above: Performed By: #### L 100.0100, L500.2500 #### [facility] [address] [place], [address] Sodium [Moles/Vol] 135 mmol/L Low 136-145 [facility] Comment on above: Performed By: #### L 100.0100, L500.2500 #### [facility] [address] [place], [address] Urea nitrogen [Mass/Vol] 26 mg/dL High 7-18 [facility] Comment on above: Performed By: #### L 100.0100, L500.2500 #### [facility] [address] [place], [address] Basophil percentageOrdered B y: Connor Augustin on 05-21-2023 Basophils/100 WBC (Bld) 0.4 % 0-1 [facility] Chloride [Moles/Vol] 101 mmol/L 98-107 [facility] Eosinophils/100 WBC (Bld) 2.1 % 0-5 [facility] Glucose [Mass/Vol] 105 mg/dL 74-106 [facility] Comment on above: Fasting Glucose resu lt from 100 to 125 mg/dL suggests IMPAIRED HOMEOSTASIS per A.D.A. criteria. Neutrophils (Bld) [#/Vol] 4.2 10*3/uL 2.0-7.7 [facility] Neutrophils/100 WBC (Bld) 62.4 % 47-70 [facility] Potassium [Moles/Vol] 4.3 mmol/L 3.5-5.1 [facility] Sodium [Moles/Vol] 135 mmol/L 136-145 [facility] WBC (Bld) [#/Vol] 6.8 10*3/uL 4.4-11.0 [facility] Blood erythrocytes count (nu mber/volume)Ordered By: Connor Augustin on 05-21-2023 RBC (Bld) [#/Vol] 3.88 10*6/uL 4.6-6.2 [facility] Blood hemoglobin measurement (mass/volume)Ordered By: Connor Augustin on 05-21-2023 Hemoglobin (Bld) [Mass/Vol] 13.0 g/dL 13.0-16.5 [facility] Blood lymphocytes/100 leukoc ytesOrdered By: [facility] 05-21-2023 Lymphocytes/100 WBC (Bld) 24.0 % 19-41 [facility] Blood monocytes/100 leukocyt esOrdered By: Connor Augustin on 05-21-2023 Monocytes/100 WBC (Bld) 10.8 % 0-[address] [facility] Blood platelet mean volumeOr dered By: Connor Augustin on 05-21-2023 Platelet mean volume (Bld) [Entitic vol] 9.3 fL 6.2-12.0 [facility] CBC W/Diff, Automatedon -06 11-2022 Absolute Lymph 1.62 X10 3/uL Normal 0.83-4.51 [facility] Comment on above: Performed By: #### L 100.0100, L500.2500 #### [facility] [address] [place], [address] Absolute Neut 4.2 X10 3/uL Normal 2.0-7.7 [facility] Comment on above: Performed By: #### L 100.0100, L500.2500 #### [facility] [address] [place], [address] Basophils/100 WBC (Bld) 0.4 % Normal 0-[address] [facility] Comment on above: Performed By: #### L 100.0100, L500.2500 #### [facility] [address] [place], [address] Eosinophils/100 WBC (Bld) 2.1 % Normal 0-5 [facility] Comment on above: Performed By: #### L 100.0100, L500.2500 #### [facility] [address] [place], [address] Erythrocyte distribution width (RBC) [Ratio] 13.5 % Normal 11.6-14.6 [facility] Comment on above: Performed By: #### L 100.0100, L500.2500 #### [facility] [address] [place], [address] Hematocrit (Bld) [Volume fraction] 38.4 % Low 40-54 [facility] Comment on above: Performed By: #### L 100.0100, L500.2500 #### [facility] [address] [place], [address] Hemoglobin (Bld) [Mass/Vol] 13.0 g/dL Normal 13.0-16.5 [facility] Comment on above: Performed By: #### L 100.0100, L500.2500 #### [facility] [address] [place], [address] IG% 0.300 Normal 0.0-0.9 [facility] Comment on above: Result Comment: IG% - Immature Granulocytes (promyelocytes, myelocytes and metamyelocytes) > 1% indicates that a LEFT SHIFT is Present. Performed By: #### L 100.0100, L500.2500 #### [facility] [address] [place], [address] Lymphocytes/100 WBC (Bld) 24.0 % Normal 19-41 [facility] Comment on above: Performed By: #### L 100.0100, L500.2500 #### [facility] [address] [place], [address] MCH (RBC) [Entitic mass] 33.5 pg High 27.0-32.0 [facility] Comment on above: Performed By: #### L 100.0100, L500.2500 #### [facility] [address] [place], [address] MCHC (RBC) [Mass/Vol] 33.9 g/dL Normal 32-36 [facility] Comment on above: Performed By: #### L 100.0100, L500.2500 #### [facility] [address] [place], [address] MCV (RBC) [Entitic vol] 99.0 fL High 80-[address] [facility] Comment on above: Performed By: #### L 100.0100, L500.2500 #### [facility] [address] [place], [address] Monocytes/100 WBC (Bld) 10.8 % High 0-[address] [facility] Comment on above: Performed By: #### L 100.0100, L500.2500 #### [facility] [address] [place], [address] Neutrophils/100 WBC (Bld) 62.4 % Normal 47-70 [facility] Comment on above: Performed By: #### L 100.0100, L500.2500 #### [facility] [address] [place], [address] Nucleated RBC (Bld) [#/Vol] 0 10*3/uL Normal 0-5 [facility] Comment on above: Performed By: #### L 100.0100, L500.2500 #### [facility] [address] [place], [address] Platelet mean volume (Bld) [Entitic vol] 9.3 fL Normal 6.2-12.0 [facility] Comment on above: Performed By: #### L 100.0100, L500.2500 #### [facility] [address] [place], [address] Platelets (Bld) [#/Vol] 248 10*3/uL Normal 150-450 [facility] Comment on above: Performed By: #### L 100.0100, L500.2500 #### [facility] [address] [place], [address] RBC (Bld) [#/Vol] 3.88 10*6/uL Low 4.6-6.2 [facility] Comment on above: Performed By: #### L 100.0100, L500.2500 #### [facility] [address] [place], [address] RDW SD 49.1 fl High 35.1-43.9 [facility] Comment on above: Performed By: #### L 100.0100, L500.2500 #### [facility] [address] [place], [address] WBC (Bld) [#/Vol] 6.8 10*3/uL Normal 4.4-11.0 [facility] Comment on above: Performed By: #### L 100.0100, L500.2500 #### [facility] [address] [place], [address] Determination of erythrocyte mean corpuscular volume (MCV)Ordered By: Connor Augustin on 05-21-2023 MCV (RBC) [Entitic vol] 99.0 fL 80-[address] [facility] Emergency Department Summary on 05-21-2023 Emergency Department Summary [facility] Medical Records Department [address] [place] [address] Emergency Department Summary 05/21/23 MR#: [id number] Acct: [id number] Name: ATIF COLÓN Mary Kate Erwin. Rep #: [id number] : 1935 87 From: Connor Augustin DO PCP: Dr. Jaime Johnson MD Status:DEP ER Location: ED HPI History of Present Illness Chief Complaint: Lower Extremity Injury Detail of Chief Complaint: Low back and left hip pain Informant: patient Narrative Narrative: Patient presents to the emergency department with complaint of pain in his left low back and hip. Patient states he fell 2 or 3 days ago onto the wheel of his walker and has had pain since. Not having hard time getting out of bed because of the pain. Apparently had x-rays at the assisted living facility of his back that did not show any fractures. Patient denies striking his head or loss of consciousness. He is able to bear weight but painful. Denies urinary symptoms. [facility] Medical History (Updated 05/21/23 @ 15:[address] Connor Augustin, ) A-fib Abnormal CT of the abdomen Acute kidney injury Anemia BPH (benign prostatic hyperplasia) Chronic renal failure, stage 3a Dementia with behavioral problem Fall GERD (gastroesophageal reflux disease) H/O normocytic normochromic anemia Hypertension Neuropathic pain Osteoarthritis Restless legs syndrome Somatic dysfunction of rib Home Medications multivitamin 1 ea PO DAILY supplement 07/02/15 [History Last Taken Unknown] finasteride 5 mg tablet 5 mg PO QDAY urinary retention 05/17/17 [History Last Taken Unknown] amlodipine 2.5 mg tablet 2.5 mg PO DAILY blood pressure 12/31/22 [History Last Taken Unknown] ferrous sulfate 325 mg (65 mg iron) tablet (FeroSul) 325 mg PO DAILY suppliment 12/31/22 [History Last Taken 12/31/22] acetaminophen 325 mg tablet 650 mg (2 x 325 mg) PO Q6H PRN PRN Pain Score 1-10 #1 TAB 01/11/23 [Rx Last Taken Unknown] donepezil 5 mg tablet 5 mg PO QHS memory #0 tabs 02/02/23 [Rx Last Taken Unknown] pantoprazole 40 mg tablet,delayed release 40 mg PO BID reflux #60 tabs 02/02/23 [Rx Last Taken Unknown] ondansetron 4 mg disintegrating tablet 4 mg PO Q8H nausea 02/04/23 [History Last Taken Unknown] nitrofurantoin macrocrystal 100 mg capsule 100 mg PO BID 5 days #10 caps 02/06/23 [Rx Last Taken Unknown] peg [id number] 1 %-0.2 %-0.2 % eye drops (Artificial Tears ([id number]) ) 1 drp EACH EYE Q1H PRN PRN DRY EYES #0 mL 02/06/23 [Rx Last Taken Unknown] ascorbate calcium (vitamin C) 500 mg tablet 1 g PO DAILY 02/09/23 [History Last Taken Unknown] calcium carbonate 600 mg-vitamin D3 10 mcg (400 unit) tablet 1 tab PO DAILY 02/09/23 [History Last Taken Unknown] doxazosin 1 mg tablet 2 mg PO QHS 02/09/23 [History Last Taken Unknown] gabapentin 300 mg capsule 300 mg PO QHS 02/09/23 [History Last Taken Unknown] hydroxyzine pamoate 50 mg capsule (Vistaril) 50 mg PO QHS PRN 02/09/23 [History Last Taken Unknown] magnesium chloride 64 mg (magnesium chloride) tablet 128 mg PO DAILY 02/09/23 [History Last Taken Unknown] melatonin 5 mg capsule 10 mg PO QHS sleep 02/09/23 [History Last Taken Unknown] meloxicam 15 mg tablet 15 mg PO DAILY 02/09/23 [History Last Taken Unknown] polyethylene glycol 3350 17 gram/dose oral powder (Miralax) 4 g PO DAILY 02/09/23 [History Last Taken Unknown] cyclobenzaprine 10 mg tablet 10 mg PO TID PRN Muscle Spasm #20 TABLETS 05/21/23 [Rx Last Taken Unknown] Allergy/AdvReac Type Severity Reaction Status Date / Time aspirin Allergy Unknown Unknown Verified 05/21/23 13:59 Penicillins Allergy Rash Verified 05/21/23 13:59 Family History Mother Cirrhosis of liver Surgical History H/O hernia repair Hx of cholecystectomy S/P right rotator cuff repair Unspecified nasal polyp Social History household members: spouse housing: assisted living facility current occupational status: retired Smoking Status: Former smoker how long ago did patient quit smokin years ago ROS ROS ED Review of Systems ROS Unobtainable: other Constitutional Constitutional ED: Reports lethargy; Denies chills, fever(s), sweats or weight loss Eyes Eyes: Denies blurry vision, change in vision or diplopia ENT ENT ED: Denies rhinorrhea or sore throat Cardiovascular Cardiovascular: Denies chest pain, orthopnea or racing heartbeat Respiratory/Chest Respiratory/Chest: Denies cough, dyspnea, dyspnea on exertion, orthopnea or sputum Gastrointestinal Gastrointestinal: Denies abdominal pain, diarrhea, nausea or vomiting Genitourinary Genitourinary ED: Denies dysuria, hematuria or urinary frequency Musculoskeletal Musculoskeletal: Reports back pain and o (more content not included)... Normal [facility] Hematocrit Auto (Bld) [Volum e fraction]Ordered By: Connor Augustin on 05-21-2023 Hematocrit (Bld) [Volume fraction] 38.4 % 40-54 [facility] - Chemistry and C hemistry - challengeOrdered By: [facility] on 05-21-2023 CO2 [Moles/Vol] 29.0 mmol/L 21.0-32.0 [facility] Urea nitrogen/Creatinine [Mass ratio] 19.5 mg/mg 10-20 [facility] - Hematology and Cell countsOrdered By: Connor Augustin on 05-21-2023 Erythrocyte distribution width (RBC) [Entitic vol] 49.1 fL 35.1-43.9 [facility] Erythrocyte distribution width (RBC) [Ratio] 13.5 % 11.6-14.6 [facility] Immature granulocytes/100 WBC (Bld) 0.300 % 0.0-0.9 [facility] Comment on above: IG% - Immature Granu locytes (promyelocytes, myelocytes and metamyelocytes) > 1% indicates that a LEFT SHIFT is Present. MCH (RBC) [Entitic mass] 33.5 pg 27.0-32.0 [facility] Nucleated RBC/100 WBC (Bld) [Ratio] 0 % 0-5 [facility] MCHC Auto (RBC) [Mass/Vol]Or dered By: Connor Augustin on 05-21-2023 MCHC (RBC) [Mass/Vol] 33.9 g/dL 32-36 [facility] No Panel InformationOrdered By: Connor Augustin on 05-21-2023 Estimated Creatinine Clearance Calc 35.32 ml/min [facility] Estimated GFR (MDRD) Amer 66 mL/min >60 [facility] Comment on above: GFR Calc Estimated GFR (MDRD) Non-Af Amer 54 mL/min >60 [facility] Comment on above: Non- GFR Calc Platelets bldOrdered By: Rem us Demetria on 05-21-2023 Platelets (Bld) [#/Vol] 248 10*3/uL 150-450 [facility] Serum or plasma calcium albaro urement (mass/volume)Ordered By: Remus Ungur on 05-21-2023 Calcium [Mass/Vol] 9.5 mg/dL 8.5-10.1 [facility] Serum or plasma creatinine m easurement (mass/volume)Ordered By: Remus Ungur on 05-21-2023 Creatinine [Mass/Vol] 1.33 mg/dL 0.70-1.30 [facility] Comment on above: The validity of the calculated GFR & GFRAA in patients over 70 years has not been determined. Clinical correlation is essential. Serum or plasma urea nitroge n measurement (mass/volume)Ordered By: Remus Augustin on 05-21-2023 Urea nitrogen [Mass/Vol] 26 mg/dL 7-18 [facility] Thin prep Papanicolaou smear with manual screeningOrdered By: Remus Augustin on 05-21-2023 Thin prep Papanicolaou smear with manual screening 5 5-15 [facility] Comprehensive metabolic 2000 panelon 04-02-2023 Albumin [Mass/Vol] 3.8 g/dL Low 3.9 - 4.9 g/dL [facility] ALP [Catalytic activity/Vol] 154 U/L High 38 - 113 U/L [facility] ALT [Catalytic activity/Vol] 65 U/L High 10 - 54 U/L [facility] Anion gap [Moles/Vol] 10 mmol/L 9 - 18 mmol/L [facility] AST [Catalytic activity/Vol] 51 U/L High 14 - 40 U/L [facility] Bilirubin [Mass/Vol] 0.2 mg/dL 0.2 - 1 .3 mg/dL [facility] Calcium [Mass/Vol] 9.1 mg/dL 8.5 - 10. 2 mg/dL [facility] Chloride [Moles/Vol] 99 mmol/L 97 - 10 5 mmol/L [facility] CO2 [Moles/Vol] 24 mmol/L 22 - 30 mmol/L [facility] Creatinine [Mass/Vol] 1.23 mg/dL High 0.73 - 1.22 mg/dL [facility] Estimated Glomerular Filtration Rate 58 mL/min/1.73m Low >=60 mL/min/1.7 3m [facility] Glucose [Mass/Vol] 96 mg/dL 74 - 99 mg/dL [facility] Potassium [Moles/Vol] 4.9 mmol/L 3.7 - 5.1 mmol/L [facility] Protein [Mass/Vol] 7.0 g/dL 6.3 - 8.0 g/dL [facility] Sodium [Moles/Vol] 133 mmol/L Low 136 - 144 mmol/L [facility] Urea nitrogen [Mass/Vol] 26 mg/dL High 9 - 24 mg/dL [facility] Absolute lymphocyte countOrd ered By: Sagar Ng on 02-06-2023 Lymphocytes Auto (Unsp spec) [#/Vol] 2.03 10*3/uL 0.83-4.51 [facility] Basophil percentageOrdered B y: Sagar Ng on 02-06-2023 Basophils/100 WBC (Bld) 0.8 % 0-1 [facility] Chloride [Moles/Vol] 109 mmol/L 98-107 [facility] Eosinophils/100 WBC (Bld) 5.0 % 0-5 [facility] Glucose [Mass/Vol] 95 mg/dL 74-106 [facility] Neutrophils (Bld) [#/Vol] 3.2 10*3/uL 2.0-7.7 [facility] Neutrophils/100 WBC (Bld) 52.0 % 47-70 [facility] Potassium [Moles/Vol] 3.5 mmol/L 3.5-5.1 [facility] Sodium [Moles/Vol] 138 mmol/L 136-145 [facility] WBC (Bld) [#/Vol] 6.2 10*3/uL 4.4-11.0 [facility] Blood erythrocytes count (nu mber/volume)Ordered By: Sagar Ng on 02-06-2023 RBC (Bld) [#/Vol] 3.01 10*6/uL 4.6-6.2 [facility] Blood hemoglobin measurement (mass/volume)Ordered By: Sagar Ng on 02-06-2023 Hemoglobin (Bld) [Mass/Vol] 10.1 g/dL 13.0-16.5 [facility] Blood lymphocytes/100 leukoc ytesOrdered By: Sagar Ng on 02-06-2023 Lymphocytes/100 WBC (Bld) 32.7 % 19-41 [facility] Blood monocytes/100 leukocyt esOrdered By: Sagar Ng on 02-06-2023 Monocytes/100 WBC (Bld) 9.0 % 0-[address] [facility] Blood platelet mean volumeOr dered By: Sagar Ng on 02-06-2023 Platelet mean volume (Bld) [Entitic vol] 11.5 fL 6.2-12.0 [facility] Determination of erythrocyte mean corpuscular volume (MCV)Ordered By: Sagar Ng on 02-06-2023 MCV (RBC) [Entitic vol] 101.0 fL 80-[address] [facility] Hematocrit Auto (Bld) [Volum e fraction]Ordered By: Sagar Ng on 02-06-2023 Hematocrit (Bld) [Volume fraction] 30.4 % 40-54 [facility] - Chemistry and C hemistry - challengeOrdered By: Sagar Ng on 02-06-2023 CO2 [Moles/Vol] 26.0 mmol/L 21.0-32.0 [facility] Urea nitrogen/Creatinine [Mass ratio] 16.1 mg/mg 10-20 [facility] - Hematology and Cell countsOrdered By: Sagar Ng on 02-06-2023 Erythrocyte distribution width (RBC) [Entitic vol] 51.0 fL 35.1-43.9 [facility] Erythrocyte distribution width (RBC) [Ratio] 13.7 % 11.6-14.6 [facility] Immature granulocytes/100 WBC (Bld) 0.500 % 0.0-0.9 [facility] Comment on above: IG% - Immature Granu locytes (promyelocytes, myelocytes and metamyelocytes) > 1% indicates that a LEFT SHIFT is Present. MCH (RBC) [Entitic mass] 33.6 pg 27.0-32.0 [facility] Nucleated RBC/100 WBC (Bld) [Ratio] 0 % 0-5 [facility] MCHC Auto (RBC) [Mass/Vol]Or dered By: Sagar Ng on 02-06-2023 MCHC (RBC) [Mass/Vol] 33.2 g/dL 32-36 [facility] No Panel InformationOrdered By: Sagar Ng on 02-06-2023 Estimated Creatinine Clearance Calc 41.95 ml/min [facility] Estimated GFR (MDRD) Amer 80 mL/min >60 [facility] Comment on above: GFR Calc Estimated GFR (MDRD) Non-Af Amer 66 mL/min >60 [facility] Comment on above: Non- GFR Calc Platelets bldOrdered By: Paola Ng on 02-06-2023 Platelets (Bld) [#/Vol] 197 10*3/uL 150-450 [facility] Serum or plasma calcium albaro urement (mass/volume)Ordered By: Sagar Ng on 02-06-2023 Calcium [Mass/Vol] 8.4 mg/dL 8.5-10.1 [facility] Serum or plasma creatinine m easurement (mass/volume)Ordered By: Sagar Ng on 02-06-2023 Creatinine [Mass/Vol] 1.12 mg/dL 0.70-1.30 [facility] Comment on above: The validity of the calculated GFR & GFRAA in patients over 70 years has not been determined. Clinical correlation is essential. Serum or plasma urea nitroge n measurement (mass/volume)Ordered By: Sagar Ng on 02-06-2023 Urea nitrogen [Mass/Vol] 18 mg/dL 7-18 [facility] Thin prep Papanicolaou smear with manual screeningOrdered By: Sagar Ng on 02-06-2023 Thin prep Papanicolaou smear with manual screening 3 5-15 [facility] No Panel InformationOrdered By: Wilder Devlin on 02-05-2023 Thyroid Stimulating Hormone (TSH) 1.34 uIU/mL 0.358-3.74 [facility] Basophil percentageOrdered B y: Kev Kimrus on 02-04-2023 Basophil percentage 10-25 SEEN /hpf 0-5 [facility] Bilirubin [Mass/Vol] 0.40 mg/dL 0.20-1.00 [facility] Comment on above: For patients on eltr ombopag therapy, use of Dimension Lindsay TBIL is not recommended. Lactate [Moles/Vol] 1.5 mmol/L 0.4-2.0 [facility] Protein [Mass/Vol] 7.1 g/dL 6.4-8.2 [facility] Bilirubin Test strip Ql (U)O rdered By: Kev Vargas on 02-04-2023 Bilirubin Ql (U) Negative Negative [facility] Culture, urineOrdered By: Елена Vargas on 02-04-2023 Bacteria identified Cx Nom (U) Escherichia coli [facility] Direct bilirubinOrdered By: Kev Vargas on 02-04-2023 Bilirubin.direct [Mass/Vol] 0.15 mg/dL 0.00-0.30 [facility] Ketones Test strip Ql (U)Ord ered By: Kev Vargas on 02-04-2023 Ketones Ql (U) Negative Negative [facility] - Chemistry and C hemistry - challengeOrdered By: Kev Vargas on 02-04-2023 ALP [Catalytic activity/Vol] 118 U/L 45-117 [facility] ALT [Catalytic activity/Vol] 23 U/L 16-61 [facility] Globulin (S) [Mass/Vol] 4.0 g/dL 2.2-4.[address] [facility] Lipase [Catalytic activity/Vol] 76 U/L 13-75 [facility] Comment on above: Please note:LIPASE r evised reference range effective 22. New Lipase methodology. Expected to produce lower values than the previous assay method. NEW Reference Range: 13 - 75 U/L Natriuretic peptide B (Bld) [Mass/Vol] 217.7 pg/mL 0-100 [facility] Mucus LM Ql (Urine sed)Order ed By: Kev Vargas on 02-04-2023 Mucus Ql (Urine sed) 0 SEEN /hpf [facility] Nitrite Test strip Ql (U)Ord ered By: Kev Vargas on 02-04-2023 Nitrite Ql (U) Positive Negative [facility] No Panel InformationOrdered By: Kev Vargas on 02-04-2023 Troponin I High Sensitivity 10 pg/mL 3.0-78.0 [facility] Comment on above: Please Note: New [place] t Units and Gender Specific Reference Ranges. For more information see Policy Stat Procedure Lindsay High Sensitivity Troponin (TNIH) and attachments. Protein Test strip Ql (U)Ord ered By: Kev Vargas on 02-04-2023 Protein Ql (U) 30 mg/dl Negative [facility] Serum or plasma albumin albaro urement (mass/volume)Ordered By: Kev Vargas on 02-04-2023 Albumin [Mass/Vol] 3.1 g/dL 3.2-5.0 [facility] Squamous epithelial cells de tection in urine sediment by light microscopyOrdered By: Kev Vargas on 02-04-2023 Epithelial cells.squamous LM Ql (Urine sed) 0 SEEN /hpf 0-5 [facility] Thin prep Papanicolaou smear with manual screeningOrdered By: Kev Vargas on 02-04-2023 Thin prep Papanicolaou smear with manual screening 14 U/L 15-37 [facility] UA DIP, URINE (POC)on 2022 BILIRUBIN UA (POCT) Negative Negative [facility] CLARITY UA (POCT) Cloudy [facility] COLOR UA (POCT) Yellow [facility] GLUCOSE UA (POCT) Negative Negative mg/dL [facility] Hemoglobin Ql (U) Moderate Abnormal Negative [facility] KETONE UA (POCT) Negative Negative mg/dL [facility] LEUKOCYTES UA (POCT) Small Abnormal Negative [facility] NITRITE UA (POCT) Negative Negative [facility] PH UA (POCT) 5.5 4.5 - 8.0 [facility] Protein Ql (U) 30 mg/dL Abnormal Negative mg/dL [facility] SPECIFIC GRAVITY UA (POCT) 1.020 1.005 - 1.030 [facility] UROBILINOGEN UA (POCT) 0.2 E.U./dL Rocio l E.U./dL [facility] Urine blood detectionOrdered By: Kev Vargas on 02-04-2023 RBC Ql (U) 150 /ul Negative [facility] RBC Ql (U) 0 SEEN /hpf 0-5 [facility] Urine clarityOrdered By: Melvina Vargas on 02-04-2023 Clarity (U) Sl. Cloudy Clear [facility] Urine color determinationOrd ered By: Kev Vargas on 02-04-2023 Color (U) Yellow Yellow [facility] Urine glucose detectionOrder ed By: Kev Vargas on 02-04-2023 Glucose Ql (U) Normal mg/dl Normal [facility] Urine leukocyte esterase det ection by dipstickOrdered By: Kev Vargas on 02-04-2023 Leukocyte esterase Test strip Ql (U) 500 /ul Negative [facility] Urine pHOrdered By: Kev rhodes on 02-04-2023 pH (U) 5.0 [pH] 5.0 - 8.0 [facility] Urine sediment bacteria coun t by microscopy (number/high power field)Ordered By: eKv Vargas on 02-04-2023 Bacteria LM.HPF (Urine sed) [#/Area] 2 /[HPF] None Seen [facility] Urine specific gravity measu rementOrdered By: Kev Vargas on 02-04-2023 Specific gravity (U) [Rel density] 1.015 1.002-1.03 0 [facility] Urobilinogen Auto test strip Ql (U)Ordered By: Kev Vargas on 02-04-2023 Urobilinogen Ql (U) Normal mg/dl Normal [facility] Absolute lymphocyte countOrd ered By: Aletha White on 02-01-2023 Lymphocytes Auto (Unsp spec) [#/Vol] 1.81 10*3/uL 0.83-4.51 [facility] Basophil percentageOrdered B y: Aletha White on 02-01-2023 Basophils/100 WBC (Bld) 0.4 % 0-[address] [facility] Bilirubin [Mass/Vol] 0.80 mg/dL 0.20-1.00 [facility] Comment on above: For patients on eltr ombopag therapy, use of Dimension Lindsay TBIL is not recommended. Chloride [Moles/Vol] 104 mmol/L 98-107 [facility] Eosinophils/100 WBC (Bld) 3.9 % 0-5 [facility] Glucose [Mass/Vol] 95 mg/dL 74-106 [facility] Neutrophils (Bld) [#/Vol] 5.7 10*3/uL 2.0-7.7 [facility] Neutrophils/100 WBC (Bld) 66.8 % 47-70 [facility] Potassium [Moles/Vol] 3.2 mmol/L 3.5-5.1 [facility] Protein [Mass/Vol] 6.1 g/dL 6.4-8.2 [facility] Sodium [Moles/Vol] 135 mmol/L 136-145 [facility] WBC (Bld) [#/Vol] 8.5 10*3/uL 4.4-11.0 [facility] Blood erythrocytes count (nu mber/volume)Ordered By: Aletha Malcolm on 02-01-2023 RBC (Bld) [#/Vol] 3.06 10*6/uL 4.6-6.2 [facility] [facility] Blood hemoglobin measurement (mass/volume)Ordered By: Aletha Malcolm on 02-01-2023 Hemoglobin (Bld) [Mass/Vol] 10.3 g/dL 13.0-16.5 [facility] Blood lymphocytes/100 leukoc ytesOrdered By: Aletha Malcolm on 02-01-2023 Lymphocytes/100 WBC (Bld) 21.2 % 19-41 [facility] Blood monocytes/100 leukocyt esOrdered By: Aletha Malcolm on 02-01-2023 Monocytes/100 WBC (Bld) 7.5 % 0-[address] [facility] Blood platelet mean volumeOr dered By: Aletha Malcolm on 02-01-2023 Platelet mean volume (Bld) [Entitic vol] 11.2 fL 6.2-12.0 [facility] Determination of erythrocyte mean corpuscular volume (MCV)Ordered By: Aletha Malcolm on 02-01-2023 MCV (RBC) [Entitic vol] 102.3 fL 80-[address] [facility] Hematocrit Auto (Bld) [Volum e fraction]Ordered By: Aletha Malcolm on 02-01-2023 Hematocrit (Bld) [Volume fraction] 31.3 % 40-54 [facility] Laboratory - Chemistry and C hemistry - challengeOrdered By: Aletha Malcolm on 02-01-2023 ALP [Catalytic activity/Vol] 105 U/L 45-117 [facility] ALT [Catalytic activity/Vol] 23 U/L 16-61 [facility] CO2 [Moles/Vol] 24.0 mmol/L 21.0-32.0 [facility] Globulin (S) [Mass/Vol] 3.4 g/dL 2.2-4.[address] [facility] Urea nitrogen/Creatinine [Mass ratio] 19.0 mg/mg 10-20 [facility] - Hematology and Cell countsOrdered By: Aletha Malcolm on 02-01-2023 Erythrocyte distribution width (RBC) [Entitic vol] 51.5 fL 35.1-43.9 [facility] Erythrocyte distribution width (RBC) [Ratio] 13.6 % 11.6-14.6 [facility] Immature granulocytes/100 WBC (Bld) 0.200 % 0.0-0.9 [facility] Comment on above: IG% - Immature Granu locytes (promyelocytes, myelocytes and metamyelocytes) > 1% indicates that a LEFT SHIFT is Present. MCH (RBC) [Entitic mass] 33.7 pg 27.0-32.0 [facility] Nucleated RBC/100 WBC (Bld) [Ratio] 0 % 0-5 [facility] MCHC Auto (RBC) [Mass/Vol]Or dered By: Aletha Malcolm on 02-01-2023 MCHC (RBC) [Mass/Vol] 32.9 g/dL 32-36 [facility] Comment on above: Delta: 34.8 on 01/31-1150 No Panel InformationOrdered By: Aletha Malcolm on 02-01-2023 Estimated Creatinine Clearance Calc 40.28 ml/min [facility] Estimated GFR (MDRD) Amer 73 mL/min >60 [facility] Comment on above: GFR Calc Estimated GFR (MDRD) Non-Af Amer 61 mL/min >60 [facility] Comment on above: Non- GFR Calc Platelets bldOrdered By: Nancy Malcolm on 02-01-2023 Platelets (Bld) [#/Vol] 207 10*3/uL 150-450 [facility] Serum or plasma albumin albaro urement (mass/volume)Ordered By: Aletha Malcolm on 02-01-2023 Albumin [Mass/Vol] 2.7 g/dL 3.2-5.0 [facility] Serum or plasma albumin/glob ulin mass ratioOrdered By: Aletha Malcolm on 02-01-2023 Albumin/Globulin [Mass ratio] 0.8 {ratio} 0.9-2.4 [facility] Serum or plasma calcium albaro urement (mass/volume)Ordered By: Aletha Malcolm on 02-01-2023 Calcium [Mass/Vol] 8.3 mg/dL 8.5-10.1 [facility] Serum or plasma creatinine m easurement (mass/volume)Ordered By: Aletha Malcolm on 02-01-2023 Creatinine [Mass/Vol] 1.21 mg/dL 0.70-1.30 [facility] Comment on above: The validity of the calculated GFR & GFRAA in patients over 70 years has not been determined. Clinical correlation is essential. Serum or plasma urea nitroge n measurement (mass/volume)Ordered By: Aletha Malcolm on 02-01-2023 Urea nitrogen [Mass/Vol] 23 mg/dL 7-18 [facility] Thin prep Papanicolaou smear with manual screeningOrdered By: Aletha Malcolm on 02-01-2023 Thin prep Papanicolaou smear with manual screening 15 U/L 15-37 [facility] Thin prep Papanicolaou smear with manual screening 7 5-15 [facility] Laboratory - Chemistry and C hemistry - challengeOrdered By: Aletha Malcolm on 01-31-2023 Cobalamin (Vitamin B12) [Mass/Vol] 804 pg/mL 211-911 [facility] Serum or plasma folate measu rement (mass/volume)Ordered By: Aletha Malcolm on 01-31-2023 Folate [Mass/Vol] 29.50 ng/mL 3.1-55.4 [facility] Basophil percentageOrdered B y: Isidra Rodriguez on 01-30-2023 Basophil percentage 4.1 mg/dL 2.5-4.9 [facility] Basophil percentageOrdered B y: Evangelista Martinez on 01-30-2023 Basophil percentage 0 SEEN /hpf 0-5 [facility] Bilirubin Test strip Ql (U)O rdered By: Evangelista Martinez on 01-30-2023 Bilirubin Ql (U) Negative Negative [facility] Ketones Test strip Ql (U)Ord ered By: Evangelista Martinez on 01-30-2023 Ketones Ql (U) 5 mg/dl Negative [facility] Laboratory - Chemistry and C hemistry - challengeOrdered By: Isidra Rodriguez on 01-30-2023 Magnesium [Mass/Vol] 2.0 mg/dL 1.6-2.6 [facility] Mucus LM Ql (Urine sed)Order ed By: Evangelista Martinez on 01-30-2023 Mucus Ql (Urine sed) 0 SEEN /hpf [facility] Nitrite Test strip Ql (U)Ord ered By: Evangelista Martinez on 01-30-2023 Nitrite Ql (U) Negative Negative [facility] No Panel InformationOrdered By: Isidra Rodriguez on 01-30-2023 Thyroid Stimulating Hormone (TSH) 1.82 uIU/mL 0.358-3.74 [facility] Protein Test strip Ql (U)Ord ered By: Evangelista Martinez on 01-30-2023 Protein Ql (U) 15 mg/dl Negative [facility] Squamous epithelial cells de tection in urine sediment by light microscopyOrdered By: Evangelista Martinez on 01-30-2023 Epithelial cells.squamous LM Ql (Urine sed) 0 SEEN /hpf 0-5 [facility] Urine blood detectionOrdered By: Evangelista Martinez on 01-30-2023 RBC Ql (U) 25 /ul Negative [facility] RBC Ql (U) 0-5 SEEN /hpf 0-5 [facility] Urine clarityOrdered By: Cathy Martinez on 01-30-2023 Clarity (U) Clear Clear [facility] Urine color determinationOrd ered By: Evangelista Martinez on 01-30-2023 Color (U) Yellow Yellow [facility] Urine glucose detectionOrder ed By: Evangelista Martinez on 01-30-2023 Glucose Ql (U) Normal mg/dl Normal [facility] Urine leukocyte esterase det ection by dipstickOrdered By: Evangelista Martinez on 01-30-2023 Leukocyte esterase Test strip Ql (U) Negative Negative [facility] Urine pHOrdered By: Evangelista hunt on 01-30-2023 pH (U) 6.5 [pH] 5.0 - 8.0 [facility] Urine sediment bacteria coun t by microscopy (number/high power field)Ordered By: Evangelista Martinez on 01-30-2023 Bacteria LM.HPF (Urine sed) [#/Area] RARE /hpf None Seen [facility] Urine specific gravity measu rementOrdered By: Evangelista Martinez on 01-30-2023 Specific gravity (U) [Rel density] 1.010 1.002-1.03 0 [facility] Urobilinogen Auto test strip Ql (U)Ordered By: Evangelista Martinez on 01-30-2023 Urobilinogen Ql (U) Normal mg/dl Normal [facility] Absolute lymphocyte countOrd ered By: Evangelista Martinez on 01-29-2023 Lymphocytes Auto (Unsp spec) [#/Vol] 2.07 10*3/uL 0.83-4.51 [facility] Basophil percentageOrdered B y: Evangelista Martinez on 01-29-2023 Basophils/100 WBC (Bld) 0.4 % 0-1 [facility] Bilirubin [Mass/Vol] 0.70 mg/dL 0.20-1.00 [facility] Comment on above: For patients on eltr ombopag therapy, use of Dimension Lindsay TBIL is not recommended. Chloride [Moles/Vol] 98 mmol/L 98-107 [facility] Eosinophils/100 WBC (Bld) 0.9 % 0-5 [facility] Glucose [Mass/Vol] 101 mg/dL 74-106 [facility] Comment on above: Fasting Glucose resu lt from 100 to 125 mg/dL suggests IMPAIRED HOMEOSTASIS per A.D.A. criteria. Neutrophils (Bld) [#/Vol] 7.2 10*3/uL 2.0-7.7 [facility] Neutrophils/100 WBC (Bld) 68.9 % 47-70 [facility] Potassium [Moles/Vol] 3.4 mmol/L 3.5-5.1 [facility] Protein [Mass/Vol] 7.7 g/dL 6.4-8.2 [facility] Sodium [Moles/Vol] 133 mmol/L 136-145 [facility] WBC (Bld) [#/Vol] 10.4 10*3/uL 4.4-11.0 [facility] Blood erythrocytes count (nu mber/volume)Ordered By: Evangelista Martinez on 01-29-2023 RBC (Bld) [#/Vol] 3.76 10*6/uL 4.6-6.2 [facility] Blood hemoglobin measurement (mass/volume)Ordered By: Evangelista Martinez on 01-29-2023 Hemoglobin (Bld) [Mass/Vol] 12.4 g/dL 13.0-16.5 [facility] Blood lymphocytes/100 leukoc ytesOrdered By: Evangelista Martinez on 01-29-2023 Lymphocytes/100 WBC (Bld) 19.9 % 19-41 [facility] Blood monocytes/100 leukocyt esOrdered By: Evangelista Martinez on 01-29-2023 Monocytes/100 WBC (Bld) 9.4 % 0-[address] [facility] Blood platelet mean volumeOr dered By: Evangelista Martinez on 01-29-2023 Platelet mean volume (Bld) [Entitic vol] 10.1 fL 6.2-12.0 [facility] CBC W Auto Differential pane l (Bld)on 01-29-2023 Basophils (Bld) [#/Vol] 0.04 10*3/uL <0.11 k/uL [facility] Basophils/100 WBC (Bld) 0.5 % [facility] Differential cell count method Nom (Bld) Auto [facility] Eosinophils (Bld) [#/Vol] 0.04 10*3/uL <0.46 k/uL [facility] Eosinophils/100 WBC (Bld) 0.5 % [facility] Erythrocyte distribution width (RBC) [Ratio] 13.7 % 11.5 - 15.0 % [facility] Hematocrit (Bld) [Volume fraction] 38.3 % Low 39.0 - 51.0 % [facility] Hemoglobin (Bld) [Mass/Vol] 12.9 g/dL Low 13.0 - 17.0 g/dL [facility] Immature granulocytes (Bld) [#/Vol] 0.03 10*3/uL <0.10 k/uL [facility] Immature granulocytes/100 WBC (Bld) 0.4 % [facility] Lymphocytes (Bld) [#/Vol] 2.13 10*3/uL 1.00 - 4.00 k/uL [facility] Lymphocytes/100 WBC (Bld) 25.9 % [facility] MCH (RBC) [Entitic mass] 32.6 pg 26. 0 - 34.0 pg [facility] MCHC (RBC) [Mass/Vol] 33.7 g/dL 30.5 - 36.0 g/dL [facility] MCV (RBC) [Entitic vol] 96.7 fL 80.0 - 100.0 fL [facility] Monocytes (Bld) [#/Vol] 0.76 10*3/uL <0.87 k/uL [facility] Monocytes/100 WBC (Bld) 9.2 % [facility] Neutrophils (Bld) [#/Vol] 5.23 10*3/uL 1.45 - 7.50 k/uL [facility] Neutrophils/100 WBC (Bld) 63.5 % [facility] Nucleated RBC (Bld) [#/Vol] <0.01 k/uL [facility] Nucleated RBC/100 WBC (Bld) [Ratio] 0.0 /100 WBC [facility] Platelet mean volume (Bld) [Entitic vol] 9.9 fL 9.0 - 12.7 fL [facility] Platelets (Bld) [#/Vol] 320 10*3/uL 150 - 400 k/uL [facility] RBC (Bld) [#/Vol] 3.96 10*6/uL Low 4.20 - 6.00 m/uL [facility] WBC (Bld) [#/Vol] 8.23 10*3/uL 3.70 - 11.00 k/uL [facility] Comprehensive metabolic 2000 panelon 01-29-2023 Albumin [Mass/Vol] 4.3 g/dL 3.9 - 4.9 g/dL [facility] ALP [Catalytic activity/Vol] 151 U/L High 38 - 113 U/L [facility] ALT [Catalytic activity/Vol] 25 U/L 10 - 54 U/L [facility] Anion gap [Moles/Vol] 15 mmol/L 9 - 18 mmol/L [facility] AST [Catalytic activity/Vol] 25 U/L 14 - 40 U/L [facility] Bilirubin [Mass/Vol] 0.9 mg/dL 0.2 - 1 .3 mg/dL [facility] Calcium [Mass/Vol] 9.8 mg/dL 8.5 - 10. 2 mg/dL [facility] Chloride [Moles/Vol] 96 mmol/L Low 97 - 10 5 mmol/L [facility] CO2 [Moles/Vol] 20 mmol/L Low 22 - 30 mmol/L [facility] Creatinine [Mass/Vol] 1.89 mg/dL High 0.73 - 1.22 mg/dL [facility] Estimated Glomerular Filtration Rate 34 mL/min/1.73m Low >=60 mL/min/1.7 3m [facility] Glucose [Mass/Vol] 112 mg/dL High 74 - 99 mg/dL [facility] Potassium [Moles/Vol] 3.6 mmol/L Low 3.7 - 5.1 mmol/L [facility] Protein [Mass/Vol] 8.2 g/dL High 6.3 - 8.0 g/dL [facility] Sodium [Moles/Vol] 131 mmol/L Low 136 - 144 mmol/L [facility] Urea nitrogen [Mass/Vol] 32 mg/dL High 9 - 24 mg/dL [facility] Determination of erythrocyte mean corpuscular volume (MCV)Ordered By: Evangelista Martinez on 01-29-2023 MCV (RBC) [Entitic vol] 98.4 fL 80-[address] [facility] Hematocrit Auto (Bld) [Volum e fraction]Ordered By: Evangelista Martinez on 01-29-2023 Hematocrit (Bld) [Volume fraction] 37.0 % 40-54 [facility] - Chemistry and C hemistry - challengeOrdered By: Evangelista Martinez on 01-29-2023 ALP [Catalytic activity/Vol] 136 U/L 45-117 [facility] ALT [Catalytic activity/Vol] 33 U/L 16-61 [facility] CO2 [Moles/Vol] 24.0 mmol/L 21.0-32.0 [facility] Globulin (S) [Mass/Vol] 4.2 g/dL 2.2-4.[address] [facility] Lipase [Catalytic activity/Vol] 77 U/L 13-75 [facility] Comment on above: Please note:LIPASE r evised reference range effective 22. New Lipase methodology. Expected to produce lower values than the previous assay method. NEW Reference Range: 13 - 75 U/L Urea nitrogen/Creatinine [Mass ratio] 15.6 mg/mg 10-20 [facility] - Hematology and Cell countsOrdered By: Evangelista Maritnez on 01-29-2023 Erythrocyte distribution width (RBC) [Entitic vol] 49.1 fL 35.1-43.9 [facility] Erythrocyte distribution width (RBC) [Ratio] 13.6 % 11.6-14.6 [facility] Immature granulocytes/100 WBC (Bld) 0.500 % 0.0-0.9 [facility] Comment on above: IG% - Immature Granu locytes (promyelocytes, myelocytes and metamyelocytes) > 1% indicates that a LEFT SHIFT is Present. MCH (RBC) [Entitic mass] 33.0 pg 27.0-32.0 [facility] Nucleated RBC/100 WBC (Bld) [Ratio] 0 % 0-5 [facility] MCHC Auto (RBC) [Mass/Vol]Or dered By: Evangelista Martinez on 01-29-2023 MCHC (RBC) [Mass/Vol] 33.5 g/dL 32-36 [facility] No Panel InformationOrdered By: Evangelista Martinez on 01-29-2023 Estimated Creatinine Clearance Calc 20.20 ml/min [facility] Estimated GFR (MDRD) Amer 32 mL/min >60 [facility] Comment on above: GFR Calc Estimated GFR (MDRD) Non-Af Amer 26 mL/min >60 [facility] Comment on above: Non- GFR Calc Platelets bldOrdered By: Cathy Martniez on 01-29-2023 Platelets (Bld) [#/Vol] 301 10*3/uL 150-450 [facility] Serum or plasma albumin albaro urement (mass/volume)Ordered By: Evangelista Martinez on 01-29-2023 Albumin [Mass/Vol] 3.5 g/dL 3.2-5.0 [facility] Serum or plasma albumin/glob ulin mass ratioOrdered By: Evangelista Martinez on 01-29-2023 Albumin/Globulin [Mass ratio] 0.8 {ratio} 0.9-2.4 [facility] Serum or plasma calcium albaro urement (mass/volume)Ordered By: Evangelista Martinez on 01-29-2023 Calcium [Mass/Vol] 9.0 mg/dL 8.5-10.1 [facility] Serum or plasma creatinine m easurement (mass/volume)Ordered By: Evangelista Martinez on 01-29-2023 Creatinine [Mass/Vol] 2.50 mg/dL 0.70-1.30 [facility] Comment on above: The validity of the calculated GFR & GFRAA in patients over 70 years has not been determined. Clinical correlation is essential. Serum or plasma urea nitroge n measurement (mass/volume)Ordered By: Evangelista Martinez on 01-29-2023 Urea nitrogen [Mass/Vol] 39 mg/dL 7-18 [facility] Stool gastrointestinal hemog lobin detection by immunologic methodOrdered By: Evangelista Martinez on 01-29-2023 Lower GI hemoglobin IA Ql (Stl) [facility] Lower GI hemoglobin IA Ql (Stl) [facility] Thin prep Papanicolaou smear with manual screeningOrdered By: Evangelista Martinez on 01-29-2023 Thin prep Papanicolaou smear with manual screening 22 U/L 15-37 [facility] Thin prep Papanicolaou smear with manual screening 11 5-15 [facility] XR ABDOMEN 1V SUPINEon 01-29 [facility] XR Abdomen Supine and Uprigh ton 01-29-2023 IMPRESSION: Borderli ne small bowel dilatation. Gas visualized throughout the colon. Findings may be due to ileus. Ob/Gyn: [facility] Transcribe Date/Time: Jan 29 2023 3:54P Dictated by : CINDY VILLASEÑOR MD This examination was interpreted and the report reviewed and electronically signed by: CINDY VILLASEÑOR MD on Jan 29 2023 4:00PM [facility] DIVISION OF RADIOLOGY * * *Final Report* [...] calcifications are noted. DIVISION OF RADIOLOGY Provider, Luci Kit [facility] - 01/29/2023 * * *Final Report* * [...] colon. Findings may be due to ileus. Ob/Gyn: [facility] Transcribe Date/Time: Jan 29 2023 3:54P Dictated by : CINDY VILLASEÑOR MD This examination was interpreted and the report reviewed and electronically signed by: CINDY VILLASEÑOR MD on Jan 29 2023 4:00PM EST [facility] Radiology Study observation (narrative) [facility] XR Abdomen Supine and Uprigh tOrdered By: [facility] Provider on 01-29-2023 [facility] Basophil percentageOrdered B y: Pastor Bazan on 01-13-2023 Bilirubin [Mass/Vol] 0.20 mg/dL 0.20-1.00 [facility] Comment on above: For patients on eltr ombopag therapy, use of Dimension Lindsay TBIL is not recommended. Chloride [Moles/Vol] 105 mmol/L 98-107 [facility] Glucose [Mass/Vol] 107 mg/dL 74-106 [facility] Comment on above: Fasting Glucose resu lt from 100 to 125 mg/dL suggests IMPAIRED HOMEOSTASIS per A.D.A. criteria. Potassium [Moles/Vol] 4.3 mmol/L 3.5-5.1 [facility] Protein [Mass/Vol] 7.1 g/dL 6.4-8.2 [facility] Sodium [Moles/Vol] 137 mmol/L 136-145 [facility] WBC (Bld) [#/Vol] 7.1 10*3/uL 4.4-11.0 [facility] Blood erythrocytes count (nu mber/volume)Ordered By: Pastor Bazan on 01-13-2023 RBC (Bld) [#/Vol] 3.32 10*6/uL 4.6-6.2 [facility] Blood hemoglobin measurement (mass/volume)Ordered By: Pastor Bazan on 01-13-2023 Hemoglobin (Bld) [Mass/Vol] 10.9 g/dL 13.0-16.5 [facility] Blood platelet mean volumeOr dered By: Pastor Bazan on 01-13-2023 Platelet mean volume (Bld) [Entitic vol] 9.7 fL 6.2-12.0 [facility] Determination of erythrocyte mean corpuscular volume (MCV)Ordered By: Pastor Bazan on 01-13-2023 MCV (RBC) [Entitic vol] 104.2 fL 80-[address] [facility] Hematocrit Auto (Bld) [Volum e fraction]Ordered By: Pastor Bazan on 01-13-2023 Hematocrit (Bld) [Volume fraction] 34.6 % 40-54 [facility] Laboratory - Chemistry and C hemistry - challengeOrdered By: Pastor Bazan on 01-13-2023 ALP [Catalytic activity/Vol] 184 U/L 45-117 [facility] ALT [Catalytic activity/Vol] 51 U/L 16-61 [facility] CO2 [Moles/Vol] 25.0 mmol/L 21.0-32.0 [facility] Globulin (S) [Mass/Vol] 4.0 g/dL 2.2-4.2 [facility] Magnesium [Mass/Vol] 2.4 mg/dL 1.6-2.6 [facility] Urea nitrogen/Creatinine [Mass ratio] 20.8 mg/mg 10-20 [facility] - Hematology and Cell countsOrdered By: Pastor Bazan on 01-13-2023 Erythrocyte distribution width (RBC) [Entitic vol] 53.1 fL 35.1-43.9 [facility] Erythrocyte distribution width (RBC) [Ratio] 13.8 % 11.6-14.6 [facility] MCH (RBC) [Entitic mass] 32.8 pg 27.0-32.0 [facility] MCHC Auto (RBC) [Mass/Vol]Or dered By: Pastor Bazan on 01-13-2023 MCHC (RBC) [Mass/Vol] 31.5 g/dL 32-36 [facility] No Panel InformationOrdered By: Pastor Bazan on 01-13-2023 Estimated GFR (MDRD) Amer 71 mL/min >60 [facility] Comment on above: GFR Calc Estimated GFR (MDRD) Non-Af Amer 58 mL/min >60 [facility] Comment on above: Non- GFR Calc Platelets bldOrdered By: Seble Bazan on 01-13-2023 Platelets (Bld) [#/Vol] 316 10*3/uL 150-450 [facility] Serum or plasma albumin albaro urement (mass/volume)Ordered By: Pastor Bazan on 01-13-2023 Albumin [Mass/Vol] 3.1 g/dL 3.2-5.0 [facility] Serum or plasma albumin/glob ulin mass ratioOrdered By: Pastor Bazan on 01-13-2023 Albumin/Globulin [Mass ratio] 0.8 {ratio} 0.9-2.4 [facility] Serum or plasma calcium albaro urement (mass/volume)Ordered By: Pastor Bazan on 01-13-2023 Calcium [Mass/Vol] 9.1 mg/dL 8.5-10.1 [facility] Serum or plasma creatinine m easurement (mass/volume)Ordered By: Pastor Bazan on 01-13-2023 Creatinine [Mass/Vol] 1.25 mg/dL 0.70-1.30 [facility] Comment on above: The validity of the calculated GFR & GFRAA in patients over 70 years has not been determined. Clinical correlation is essential. Serum or plasma urea nitroge n measurement (mass/volume)Ordered By: Pastor Bazan on 01-13-2023 Urea nitrogen [Mass/Vol] 26 mg/dL 7-18 [facility] Thin prep Papanicolaou smear with manual screeningOrdered By: Pastor Bazan on 01-13-2023 Thin prep Papanicolaou smear with manual screening 23 U/L 15-37 [facility] Thin prep Papanicolaou smear with manual screening 7 5-15 [facility] Basophil percentageOrdered B y: Serenity Ozuna on 01-12-2023 Chloride [Moles/Vol] 107 mmol/L 98-107 [facility] Glucose [Mass/Vol] 112 mg/dL 74-106 [facility] Comment on above: Fasting Glucose resu lt from 100 to 125 mg/dL suggests IMPAIRED HOMEOSTASIS per A.D.A. criteria. Potassium [Moles/Vol] 4.7 mmol/L 3.5-5.1 [facility] Sodium [Moles/Vol] 137 mmol/L 136-145 [facility] WBC (Bld) [#/Vol] 6.8 10*3/uL 4.4-11.0 [facility] Blood erythrocytes count (nu mber/volume)Ordered By: Serenity Ozuna on 01-12-2023 RBC (Bld) [#/Vol] 2.96 10*6/uL 4.6-6.2 [facility] Blood hemoglobin measurement (mass/volume)Ordered By: Serenity Ozuna on 01-12-2023 Hemoglobin (Bld) [Mass/Vol] 9.7 g/dL 13.0-16.5 [facility] Blood platelet mean volumeOr dered By: Serenity Ozuna on 01-12-2023 Platelet mean volume (Bld) [Entitic vol] 8.8 fL 6.2-12.0 [facility] Determination of erythrocyte mean corpuscular volume (MCV)Ordered By: Serenity Ozuna on 01-12-2023 MCV (RBC) [Entitic vol] 99.3 fL 80-[address] [facility] Hematocrit Auto (Bld) [Volum e fraction]Ordered By: Serenity Ozuna on 01-12-2023 Hematocrit (Bld) [Volume fraction] 29.4 % 40-54 [facility] - Chemistry and C hemistry - challengeOrdered By: Serenity Ozuna on 01-12-2023 CO2 [Moles/Vol] 28.0 mmol/L 21.0-32.0 [facility] Magnesium [Mass/Vol] 2.5 mg/dL 1.6-2.6 [facility] Urea nitrogen/Creatinine [Mass ratio] 27.7 mg/mg 10-20 [facility] - Hematology and Cell countsOrdered By: Serenity Ozuna on 01-12-2023 Erythrocyte distribution width (RBC) [Entitic vol] 49.4 fL 35.1-43.9 [facility] Erythrocyte distribution width (RBC) [Ratio] 13.7 % 11.6-14.6 [facility] MCH (RBC) [Entitic mass] 32.8 pg 27.0-32.0 [facility] MCHC Auto (RBC) [Mass/Vol]Or dered By: Serenity Sulma on 01-12-2023 MCHC (RBC) [Mass/Vol] 33.0 g/dL 32-36 [facility] No Panel InformationOrdered By: Serenity Sulma on 01-12-2023 Estimated Creatinine Clearance Calc 39.48 ml/min [facility] Estimated GFR (MDRD) Amer 75 mL/min >60 [facility] Comment on above: GFR Calc Estimated GFR (MDRD) Non-Af Amer 62 mL/min >60 [facility] Comment on above: Non- GFR Calc Platelets bldOrdered By: Anita rankin Sulma on 01-12-2023 Platelets (Bld) [#/Vol] 282 10*3/uL 150-450 [facility] Serum or plasma calcium albaro urement (mass/volume)Ordered By: Serenity Ozuna on 01-12-2023 Calcium [Mass/Vol] 8.7 mg/dL 8.5-10.1 [facility] Serum or plasma creatinine m easurement (mass/volume)Ordered By: Serenity Sulma on 01-12-2023 Creatinine [Mass/Vol] 1.19 mg/dL 0.70-1.30 [facility] Comment on above: The validity of the calculated GFR & GFRAA in patients over 70 years has not been determined. Clinical correlation is essential. Serum or plasma urea nitroge n measurement (mass/volume)Ordered By: Serenity Sulma on 01-12-2023 Urea nitrogen [Mass/Vol] 33 mg/dL 7-18 [facility] Thin prep Papanicolaou smear with manual screeningOrdered By: Serenity Ozuna on 01-12-2023 Thin prep Papanicolaou smear with manual screening 2 5-15 [facility] No Panel InformationOrdered By: Edin Spaulding on 01-09-2023 Troponin I High Sensitivity 13 pg/mL 3.0-78.0 [facility] Comment on above: Please Note: [place] t Units and Gender Specific Reference Ranges. For more information see Policy Stat Procedure [place] High Sensitivity Troponin (TNIH) and attachments. Basophil percentageOrdered B y: Serenity Sulma on 01-07-2023 Ammonia (P) [Moles/Vol] 30.0 umol/L 11-32 [facility] Basophil percentage 2.9 mg/dL 2.5-4.9 [facility] No Panel InformationOrdered By: Anuj Tao on 01-07-2023 Ionized Calcium 4.94 mg/dL 4.36-5.20 [facility] Serum or plasma albumin albaro urement (mass/volume)Ordered By: Serenity Ozuna on 01-07-2023 Albumin [Mass/Vol] 3.2 g/dL 3.2-5.0 [facility] Whole blood hemoglobin A1c/t otal hemoglobin ratio (mass fraction)Ordered By: Serenity Ozuna on 01-07-2023 HbA1c (Bld) [Mass fraction] 5.5 % 3.8-5.6 [facility] Comment on above: Normal < 5.7 % Predi abetic 5.7 - 6.4 % Diabetic >or= 6.5 % Please note range changes. 24 hour urine albumin/total protein ratio by electrophoresis (mass fraction)Ordered By: Serenity Ozuna on 01-04-2023 Albumin Elph (24H U) [Mass fraction] 12.9 % . [facility] 24 hour urine alpha 1 globul in/total protein ratio by electrophoresis (mass fraction)Ordered By: Serenity Ozuna on 01-04-2023 Alpha 1 globulin Elph (24H U) [Mass fraction] 1.2 % . [facility] 24 hour urine alpha 2 globul in/total protein ratio by electrophoresis (mass fraction)Ordered By: Serenity Ozuna on 01-04-2023 Alpha 2 globulin Elph (24H U) [Mass fraction] 14.8 % . [facility] Albumin Elph [Mass/Vol]Order ed By: Serenity Ozuna on 01-04-2023 Albumin [Mass/Vol] 3.3 g/dL 2.9-4.4 [facility] Interpretation of serum or p lasma protein pattern by immunofixation (narrative resultOrdered By: Serenity Ozuna on 01-04-2023 Protein Fractions Immunofixation Mark [Interp] 0.4 g/dL Not Observed [facility] Iron measurement (mass/mass) Ordered By: Serenity Ozuna on 01-04-2023 Iron (Unsp spec) [Mass/Mass] 29 ug/dL 65-175 [facility] Laboratory - Chemistry and C hemistry - challengeOrdered By: Serenity Ozuna on 01-04-2023 Sodium (U) [Moles/Vol] 84 mmol/L Not Establ. [facility] No Panel InformationOrdered By: Serenity Ozuna on 01-04-2023 Addendum Document Comment . [facility] Comment on above: Protein electrophore sis scan will follow via computer,mail, or license distributor delivery.Performed at: [facility] [address] [id number] Director: Papa Shafer PhD, Phone: [phone] Thyroid Stimulating Hormone (TSH) 0.72 uIU/mL 0.358-3.74 [facility] Total Iron Binding Capacity 153 ug/dL 250-450 [facility] Urine Immunofixation PEP Note Comment . [facility] Comment on above: Protein electrophore sis scan will follow via computer,mail, or license distributor delivery.Performed at: [employer] [id number] Director: Papa Shafer PhD, Phone: [phone] Urine Urea Nitrogen 470 mg/dL NO RANGE EST. [facility] Serum [id number] measu rement by electrophoresisOrdered By: Serenity Ozuna on 01-04-2023 Alpha 1 globulin Elph [Mass/Vol] 0.3 g/dL 0.0-0.4 [facility] Alpha 1 globulin Elph [Mass/Vol] 1.1 g/dL 0.4-1.0 [facility] Serum globulin measurement ( mass/volume)Ordered By: Serenity Ozuna on 01-04-2023 Globulin (S) [Mass/Vol] 3.6 g/dL 2.2-3.9 [facility] Serum or plasma IgA measurem ent (mass/volume)Ordered By: Serenity Ozuna on 01-04-2023 IgA [Mass/Vol] 188 mg/dL 61-437 [facility] Serum or plasma IgG measurem ent (mass/volume)Ordered By: Serenity Ozuna on 01-04-2023 IgG [Mass/Vol] 1255 mg/dL 603-1613 [facility] Serum or plasma IgM measurem ent (mass/volume)Ordered By: Serenity Ozuna on 01-04-2023 IgM [Mass/Vol] 259 mg/dL 15-143 [facility] Serum or plasma beta globuli n measurement by electrophoresis (mass/volume)Ordered By: Serenity Sethimichelle on 01-04-2023 Beta globulin Elph [Mass/Vol] 0.9 g/dL 0.7-1.3 [facility] Serum or plasma gamma globul in measurement by electrophoresis (mass/volume)Ordered By: Serenity Sethimichelle on 01-04-2023 Gamma globulin Elph [Mass/Vol] 1.2 g/dL 0.4-1.8 [facility] Serum or plasma immunoelectr ophoresis interpretation (nominal result)Ordered By: Serenity Sethimichelle on 01-04-2023 Interpretation IEP [Interp] Comment . 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 PLEASE NOTE: Samples from patients receiving DARZALEX(R)(daratumumab) or SARCLISA(R)(isatuximab-irfc) treatmentcan appear as an IgG kappa and mask a complete response(CR). If this patient is receiving these therapies, thisIFE assay interference can be removed by ordering testnumber [id number], Daratumumab-Specific,Serum or [id number], Isatuximab-Specific,Serum and submitting a new sample for testing or bycalling the lab to add this test to the current sample. Serum or plasma iron saturat ion measurement (mass fraction)Ordered By: Sreenity Sethimichelle on 01-04-2023 Iron saturation [Mass fraction] 19.0 % 15.0-55.0 [facility] Thin prep Papanicolaou smear with manual screeningOrdered By: Serenity Sethimichelle on 01-04-2023 Thin prep Papanicolaou smear with manual screening 1.0 0.7-1.7 [facility] Thin prep Papanicolaou smear with manual screening Comment . [facility] Comment on above: [place] Protein positive; kappa type.GERDA also shows an asymmetrical IgG. Total protein bloodOrdered B y: Serenity Sethimichelle on 01-04-2023 Protein [Mass/Vol] 6.9 g/dL 6.0-8.5 [facility] Urine beta globulin measurem ent by electrophoresis (mass/volume)Ordered By: Serenity Sethimichelle on 01-04-2023 Beta globulin Elph (U) [Mass/Vol] 45.6 % . [facility] Urine creatinine measurement (mass/volume)Ordered By: Serenity Sulma on 01-04-2023 Creatinine (U) [Mass/Vol] 42.70 mg/dL NO RANGE EST. [facility] Urine gamma globulin measure ment by electrophoresis (mass/volume)Ordered By: Serenity Sulma on 01-04-2023 Gamma globulin Elph (U) [Mass/Vol] 25.5 % . [facility] Urine monoclonal protein/tot al protein mass ratio by electrophoresisOrdered By: Serenity Sulma on 01-04-2023 Protein.monoclonal Elph (U) [Mass fraction] 28.5 % Not Observed [facility] Urine protein measurement (m ass/volume)Ordered By: Serenity Sulma on 01-04-2023 Protein (U) [Mass/Vol] 10.9 mg/dL Not Estab. [facility] Absolute lymphocyte countOrd ered By: Anuj Tao on 01-01-2023 Lymphocytes Auto (Unsp spec) [#/Vol] 1.26 10*3/uL 0.83-4.51 [facility] Basophil percentageOrdered B y: Anuj Tao on 01-01-2023 Basophils/100 WBC (Bld) 0.3 % 0-[address] [facility] Eosinophils/100 WBC (Bld) 2.1 % 0-5 [facility] Neutrophils (Bld) [#/Vol] 7.8 10*3/uL 2.0-7.7 [facility] Neutrophils/100 WBC (Bld) 76.3 % 47-70 [facility] Blood lymphocytes/100 leukoc ytesOrdered By: Anuj Tao on 01-01-2023 Lymphocytes/100 WBC (Bld) 12.2 % 19-41 [facility] Blood monocytes/100 leukocyt esOrdered By: [facility] Monocytes/100 WBC (Bld) 8.6 % 0-[address] [facility] Laboratory - Hematology and Cell countsOrdered By: Anuj Tao on 01-01-2023 Immature granulocytes/100 WBC (Bld) 0.500 % 0.0-0.9 [facility] Comment on above: IG% - Immature Granu locytes (promyelocytes, myelocytes and metamyelocytes) > 1% indicates that a LEFT SHIFT is Present. Nucleated RBC/100 WBC (Bld) [Ratio] 0 % 0-5 [facility] Absolute lymphocyte countOrd ered By: Moris Prasad on 12-31-2022 Lymphocytes Auto (Unsp spec) [#/Vol] 1.55 10*3/uL 0.83-4.51 [facility] Basophil percentageOrdered B y: Moris Prasad on 12-31-2022 Basophils/100 WBC (Bld) 0.5 % 0-[address] [facility] Chloride [Moles/Vol] 100 mmol/L 98-107 [facility] Eosinophils/100 WBC (Bld) 2.8 % 0-5 [facility] Glucose [Mass/Vol] 110 mg/dL 74-106 [facility] Comment on above: Fasting Glucose resu lt from 100 to 125 mg/dL suggests IMPAIRED HOMEOSTASIS per A.D.A. criteria. Neutrophils (Bld) [#/Vol] 6.1 10*3/uL 2.0-7.7 [facility] Neutrophils/100 WBC (Bld) 69.1 % 47-70 [facility] Potassium [Moles/Vol] 3.8 mmol/L 3.5-5.1 [facility] Sodium [Moles/Vol] 131 mmol/L 136-145 [facility] WBC (Bld) [#/Vol] 8.8 10*3/uL 4.4-11.0 [facility] Blood erythrocytes count (nu mber/volume)Ordered By: Moris Prasad on 12-31-2022 RBC (Bld) [#/Vol] 3.47 10*6/uL 4.6-6.2 [facility] Blood hemoglobin measurement (mass/volume)Ordered By: Moris Prasad on 12-31-2022 Hemoglobin (Bld) [Mass/Vol] 11.5 g/dL 13.0-16.5 [facility] Blood lymphocytes/100 leukoc ytesOrdered By: Moris Prasad on 12-31-2022 Lymphocytes/100 WBC (Bld) 17.6 % 19-41 [facility] Blood monocytes/100 leukocyt esOrdered By: Moris Prasad on 12-31-2022 Monocytes/100 WBC (Bld) 9.5 % 0-[address] [facility] Blood platelet mean volumeOr dered By: Moris Prasad on 12-31-2022 Platelet mean volume (Bld) [Entitic vol] 9.9 fL 6.2-12.0 [facility] Determination of erythrocyte mean corpuscular volume (MCV)Ordered By: Moris Prasad on 12-31-2022 MCV (RBC) [Entitic vol] 98.3 fL 80-[address] [facility] Hematocrit Auto (Bld) [Volum e fraction]Ordered By: Moris Prasad on 12-31-2022 Hematocrit (Bld) [Volume fraction] 34.1 % 40-54 [facility] Laboratory - Chemistry and C hemistry - challengeOrdered By: Moris Prasad on 12-31-2022 CO2 [Moles/Vol] 24.0 mmol/L 21.0-32.0 [facility] Urea nitrogen/Creatinine [Mass ratio] 21.9 mg/mg 10-20 [facility] Laboratory - Hematology and Cell countsOrdered By: Moris Prasad on 12-31-2022 Erythrocyte distribution width (RBC) [Entitic vol] 47.1 fL 35.1-43.9 [facility] Erythrocyte distribution width (RBC) [Ratio] 13.2 % 11.6-14.6 [facility] Immature granulocytes/100 WBC (Bld) 0.500 % 0.0-0.9 [facility] Comment on above: IG% - Immature Granu locytes (promyelocytes, myelocytes and metamyelocytes) > 1% indicates that a LEFT SHIFT is Present. MCH (RBC) [Entitic mass] 33.1 pg 27.0-32.0 [facility] Nucleated RBC/100 WBC (Bld) [Ratio] 0 % 0-5 [facility] MCHC Auto (RBC) [Mass/Vol]Or dered By: Moris Prasad on 12-31-2022 MCHC (RBC) [Mass/Vol] 33.7 g/dL 32-36 [facility] No Panel InformationOrdered By: Moris Prasad on 12-31-2022 Estimated Creatinine Clearance Calc 49.76 ml/min [facility] Estimated GFR (MDRD) Amer 86 mL/min >60 [facility] Comment on above: GFR Calc Estimated GFR (MDRD) Non-Af Amer 71 mL/min >60 [facility] Comment on above: Non- GFR Calc Platelets bldOrdered By: Timmy Prasad on 12-31-2022 Platelets (Bld) [#/Vol] 262 10*3/uL 150-450 [facility] Serum or plasma calcium albaro urement (mass/volume)Ordered By: Moris Prasad on 12-31-2022 Calcium [Mass/Vol] 9.0 mg/dL 8.5-10.1 [facility] Serum or plasma creatinine m easurement (mass/volume)Ordered By: Moris Prasad on 12-31-2022 Creatinine [Mass/Vol] 1.05 mg/dL 0.70-1.30 [facility] Comment on above: The validity of the calculated GFR & GFRAA in patients over 70 years has not been determined. Clinical correlation is essential. Serum or plasma urea nitroge n measurement (mass/volume)Ordered By: Moris Prasad on 12-31-2022 Urea nitrogen [Mass/Vol] 23 mg/dL 7-18 [facility] Thin prep Papanicolaou smear with manual screeningOrdered By: Moris Prasad on 12-31-2022 Thin prep Papanicolaou smear with manual screening 7 5-15 [facility] Hemoglobin in reticulocytes (mass per reticulocyte)Ordered By: Moris Prasad on 12-30-2022 Hemoglobin (Reticulocytes) [Entitic mass] 36.3 pg 30-35 [facility] Laboratory - Chemistry and C hemistry - challengeOrdered By: Moris Prasad on 12-30-2022 Cobalamin (Vitamin B12) [Mass/Vol] 1669 pg/mL 211-911 [facility] No Panel InformationOrdered By: Moris Prasad on 12-30-2022 Immature Reticulocyte Fraction 11.30 % 3.00-15.90 [facility] Miscellaneous Test See comment [facility] Comment on above: TEST RESULTS LIMITSI haley 53 ug/dL 38 - 169 [facility]. ORIGINAL REPORT ON FILE IN LAB CONTAINS ADDITIONAL TEST SITE INFORMATION. Reticulocyte Count 1.56 % 0.5-1.5 [facility] Total Iron Binding Capacity 127 ug/dL 250-450 [facility] Serum or plasma ferritin rashad surement (mass/volume)Ordered By: Moris Prasad on 12-30-2022 Ferritin [Mass/Vol] 357 ng/mL 26-388 [facility] Serum or plasma folate measu rement (mass/volume)Ordered By: Moris Prasad on 12-30-2022 Folate [Mass/Vol] 43.20 ng/mL 3.1-55.4 [facility] Basophil percentageOrdered B y: Moris Prasad on 12-29-2022 Basophil percentage 3.4 mg/dL 2.5-4.9 [facility] Basophil percentageOrdered B y: Otoniel Ellis on 12-29-2022 Lactate [Moles/Vol] 0.8 mmol/L 0.4-2.0 [facility] Laboratory - Chemistry and C hemistry - challengeOrdered By: Moris Prasad on 12-29-2022 Magnesium [Mass/Vol] 1.9 mg/dL 1.6-2.6 [facility] Basic metabolic 2000 panelon 12-28-2022 Anion gap [Moles/Vol] 13 mmol/L Normal 9-18 [facility] Comment on above: Order Comment: Speci men Type: BLOOD SPECIMEN Ordering Facility: [facility] Address: [address] [place] [address] Performed By: #### 2 4321-2 #### [facility] CLIA [id number] [address] [place] [address] [place] Calcium [Mass/Vol] 9.5 mg/dL Normal 8.5-10.2 [facility] Comment on above: Order Comment: Speci men Type: BLOOD SPECIMEN Ordering Facility: [facility] Address: [address] [place] [address] Performed By: #### 2 4321-2 #### [facility] CLIA [id number] [address] [facility] Chloride [Moles/Vol] 93 mmol/L Low 97-105 [facility] Comment on above: Order Comment: Speci men Type: BLOOD SPECIMEN Ordering Facility: [facility] Address: [address] [place] [address] Performed By: #### 2 4321-2 #### [facility] CLIA [id number] [address] [place] CO2 [Moles/Vol] 26 mmol/L Normal 22-30 [facility] Comment on above: Order Comment: Speci men Type: BLOOD SPECIMEN Ordering Facility: [facility] Address: [address] [place] [address] Performed By: #### 2 4321-2 #### [facility] CLIA [id number] [address] [facility] Creatinine [Mass/Vol] 1.17 mg/dL Normal 0.73-1.22 [facility] Comment on above: Order Comment: Speci men Type: BLOOD SPECIMEN Ordering Facility: [facility] Address: [address] [place] [address] Performed By: #### 2 4321-2 #### [facility] CLIA [id number] [address] ESTIMATED GLOMERULAR FILTRATION RATE 61 mL/min/1.73m??? Normal >=60 [facility] Comment on above: Order Comment: Speci men Type: BLOOD SPECIMEN Ordering Facility: [facility] Address: [address] [place] [address] Result Comment: Birgit mated Glomerular Filtration Rate [...] GFR. Performed By: #### 2 4321-2 #### [facility] CLIA [id number] [address] [place] [address] [place] Glucose [Mass/Vol] 109 mg/dL High 74-99 [facility] Comment on above: Order Comment: Blair kirk Type: BLOOD SPECIMEN Ordering Facility: [facility] Address: [address] [place] [address] Result Comment: The [place] [employer] (ADA) provides guidance for cutoff [...] Standards of Medical Care in Diabetes 2016, [place] [employer]. Diabetes Care. 2016.39(Suppl 1). Performed By: #### 2 4321-2 #### [facility] CLIA [id number] [address] [place] [address] [place] Potassium [Moles/Vol] 3.3 mmol/L Low 3.7-5.1 [facility] Comment on above: Order Comment: Blair kirk Type: BLOOD SPECIMEN Ordering Facility: [facility] Address: [address] [place] [address] Performed By: #### 2 4321-2 #### [facility] CLIA [id number] [address] [place] [address] [place] Sodium [Moles/Vol] 132 mmol/L Low 136-144 [facility] Comment on above: Order Comment: Blair kirk Type: BLOOD SPECIMEN Ordering Facility: [facility] Address: [address] [place] [address] Performed By: #### 2 4321-2 #### [facility] CLIA [id number] [address] [place] [id number] [place] Urea nitrogen [Mass/Vol] 20 mg/dL Normal 9-24 [facility] Comment on above: Order Comment: Speci men Type: BLOOD SPECIMEN Ordering Facility: [facility] Address: [place] [address] Performed By: #### 2 4321-2 #### [facility] CLIA [id number] [address] [place] [id number] [place] Basophil percentageOrdered B y: Otoniel Ellis on 12-28-2022 Basophil percentage 0-5 SEEN /hpf 0-5 [facility] Bilirubin Test strip Ql (U)O rdered By: Otoniel Ellis on 12-28-2022 Bilirubin Ql (U) Negative Negative [facility] CNDSon 12-28-2022 CNDS HNO ID: [id number] Author: Maddi France DO Service: Hospital Medicine [...] for trauma work-up after mechanical fall from [facility].He was assessed by trauma who did not [...] the patient's daughter who is his healthcare consumer sales representative. Daughter agreeable to plan for patient [...] call for appointment?: Yes Jordan Johnson MD [phone] [place] [address] PCP Requested Referral Follow-Up Appointment When: In 1 week Patient/Parents to call for appointment?: Yes Lorraine Carvalho MD [phone] [place] [address] PCP Requested Referral Additional Provider to Provider Information: Treatment Team: Attending Provider: Maddi France DO Consulting: Vashti Motley MD, PhD Primary Service: SATISH FAUSTIN Transitions of Care Critical Issues: LABS AND PROCEDURES PENDING AT DISCHARGE: No pending results. FOLLOW-UP APPOINTMENTS ALREADY SCHEDULED WITH A [facility] PROVIDER: Future Appointments Date Time Provider Department Center 06/21/2023 1:20 PM [facility] APRN.[employer] [facility] ALLERGIES Allergen Reactions Aspirin GI Upset Penicillins Rash DISCHARGE MEDICATION: Medication List START taking these medications carvedilol 6.25 mg tablet Commonly known as: COREG Take 1 tablet by mouth twice daily with meals. promethazine 25 mg table (more content not included)... Normal [facility] Hyaline casts LM.LPF (Urine sed) [#/Area]Ordered By: Otoniel Ellis on 12-28-2022 Hyaline casts (Urine sed) [#/Area] 0 /[LPF] 0-5 [facility] Ketones Test strip Ql (U)Ord ered By: Otoniel Ellis on 12-28-2022 Ketones Ql (U) 15 mg/dl Negative [facility] Mucus LM Ql (Urine sed)Order ed By: Otoniel Ellis on 12-28-2022 Mucus Ql (Urine sed) 0 SEEN /hpf [facility] NURSING PROGon 12-28-2022 NURSING PROG HNO ID: [id number] Author: Izabela Douglas RN Service: Nursing Author Type: Registered Nurse Type: Nursing Progress Note Filed: 12/28/2022 12:01 PM Note Text: Other: Patient's daughter Sindy called for an update and requested that the neurosurg team contact her and discuss the results of his MRI> message sent via [employer]. Normal [facility] Nitrite Test strip Ql (U)Ord ered By: Otoniel Ellis on 12-28-2022 Nitrite Ql (U) Negative Negative [facility] No Panel InformationOrdered By: Otoniel Ellis on 12-28-2022 Troponin I High Sensitivity 18 pg/mL 3.0-78.0 [facility] Comment on above: Please Note: [place] t Units and Gender Specific Reference Ranges. For more information see Policy Stat Procedure [place] High Sensitivity Troponin (TNIH) and attachments. Protein Test strip Ql (U)Ord ered By: Otoniel Ellis on 12-28-2022 Protein Ql (U) 15 mg/dl Negative [facility] Squamous epithelial cells de tection in urine sediment by light microscopyOrdered By: Otoniel Ellis on 12-28-2022 Epithelial cells.squamous LM Ql (Urine sed) 0-5 SEEN /hpf 0-5 [facility] Stool gastrointestinal hemog lobin detection by immunologic methodOrdered By: Otoniel Ellis on 12-28-2022 Lower GI hemoglobin IA Ql (Stl) [facility] Urine blood detectionOrdered By: Otoniel Ellis on 12-28-2022 RBC Ql (U) 25 /ul Negative [facility] RBC Ql (U) 0-5 SEEN /hpf 0-5 [facility] Urine clarityOrdered By: Jorge Ellis on 12-28-2022 Clarity (U) Clear Clear [facility] Urine color determinationOrd ered By: Otoniel Ellis on 12-28-2022 Color (U) Yellow Yellow [facility] Urine glucose detectionOrder ed By: Otoniel Ellis on 12-28-2022 Glucose Ql (U) Normal mg/dl Normal [facility] Urine leukocyte esterase det ection by dipstickOrdered By: Otoniel Ellis on 12-28-2022 Leukocyte esterase Test strip Ql (U) Negative Negative [facility] Urine pHOrdered By: Otoniel pérez on 12-28-2022 pH (U) 5.0 [pH] 5.0 - 8.0 [facility] Urine sediment bacteria coun t by microscopy (number/high power field)Ordered By: Otoniel Ellis on 12-28-2022 Bacteria LM.HPF (Urine sed) [#/Area] RARE /hpf None Seen [facility] Urine specific gravity measu rementOrdered By: Otoniel Ellis on 12-28-2022 Specific gravity (U) [Rel density] 1.015 1.002-1.03 0 [facility] Urobilinogen Auto test strip Ql (U)Ordered By: Otoniel Ellis on 12-28-2022 Urobilinogen Ql (U) Normal mg/dl Normal [facility] ALLIED HEALTHon 12-27-2022 ALLIED HEALTH HNO ID: [id number] Author: Jose Cortez RT(Mary Ann) Service: ? Author Type: Technologist Type: Allied [...] PERIPHERAL IV DATA: Inpatient - refer to [facility] documentation RADIOLOGY DEPARTMENT: MR; Exam(s) Completed: Head: Routine Brain SIGNATURE: RT Erin(R) PATIENT NAME: Atif Colón DATE: December 27, 2022 TIME: 2:18 PM Normal [facility] Basic metabolic 2000 panelon 12-27-2022 Anion gap [Moles/Vol] 13 mmol/L Normal 9-18 [facility] Comment on above: Order Comment: Speci men Type: BLOOD SPECIMEN Ordering Facility: [facility] Address: [address] [place] [address] Performed By: #### 2 4321-2 #### [facility] CLIA [id number] [address] [place] [address] [place] Calcium [Mass/Vol] 9.4 mg/dL Normal 8.5-10.2 [facility] Comment on above: Order Comment: Speci men Type: BLOOD SPECIMEN Ordering Facility: [facility] Address: [address] [place] [address] Performed By: #### 2 4321-2 #### [facility] CLIA [id number] [address] [place] [address] [place] Chloride [Moles/Vol] 98 mmol/L Normal 97-105 [facility] Comment on above: Order Comment: Speci men Type: BLOOD SPECIMEN Ordering Facility: [facility] Address: [address] [place] [address] Performed By: #### 2 4321-2 #### [facility] CLIA [id number] [address] [place] CO2 [Moles/Vol] 24 mmol/L Normal 22-30 [facility] Comment on above: Order Comment: Speci men Type: BLOOD SPECIMEN [facility] [facility] Address: [address] [place] [address] Performed By: #### 2 4321-2 #### [facility] CLIA [id number] [address] [place] [address] STATES OF [facility] Creatinine [Mass/Vol] 1.20 mg/dL Normal 0.73-1.22 [facility] Comment on above: Order Comment: Speci men Type: BLOOD SPECIMEN Ordering Facility: [facility] Address: [address] [place] [address] Performed By: #### 2 4321-2 #### [facility] CLIA [id number] [address] [place] [address] ESTIMATED GLOMERULAR FILTRATION RATE 59 mL/min/1.73m??? Low >=60 [facility] Comment on above: Order Comment: Speci men Type: BLOOD SPECIMEN Ordering Facility: [facility] Address: [address] [place] [address] Result Comment: Birgit mated Glomerular Filtration Rate [...] GFR. Performed By: #### 2 4321-2 #### [facility] CLIA [id number] [address] [place] Glucose [Mass/Vol] 103 mg/dL High 74-99 [facility] Comment on above: Order Comment: Blair kirk Type: BLOOD SPECIMEN Ordering Facility: [facility] Address: [address] [place] [address] Result Comment: The [place] Diabetes Association (ADA) provides guidance for cutoff [...] Standards of Medical Care in Diabetes 2016, [place] [employer]. Diabetes Care. 2016.39(Suppl 1). Performed By: #### 2 4321-2 #### [facility] CLIA [id number] [address] [place] Potassium [Moles/Vol] 3.4 mmol/L Low 3.7-5.1 [facility] Comment on above: Order Comment: Blair kirk Type: BLOOD SPECIMEN Ordering Facility: [facility] Address: [address] [place] [address] Performed By: #### 2 4321-2 #### [facility] CLIA [id number] [address] [place] Sodium [Moles/Vol] 135 mmol/L Low 136-144 [facility] Comment on above: Order Comment: Blair kirk Type: BLOOD SPECIMEN Ordering Facility: [facility] Address: [address] [place] [address] Performed By: #### 2 4321-2 #### [facility] CLIA [id number] [address] [place] Urea nitrogen [Mass/Vol] 20 mg/dL Normal 9-24 [facility] Comment on above: Order Comment: Blair kirk Type: BLOOD SPECIMEN Ordering Facility: [facility] Address: [address] [place], [place] [address] [address] Performed By: #### 2 4321-2 #### [facility] CLIA [id number] [address] OF [facility] CASE MANAGEMon 12-27-2022 CASE MANAGEM HNO ID: [id number] Author: Rajni Cha LSW Service: ? Author Type: [employer] Type: Care Mgt Progress Note Filed: 12/27/2022 [...] 27, 2022 TIME: 12:02 PM PAGER/CONTACT #: [phone] Normal [facility] MRI BRAIN WO/W IVCONon 12-27 MRI BRAIN WO/W IVCON * * *Final Report* * * DATE OF EXAM: Dec 27 2022 2:45PM [facility] 0295 - MRI BRAIN WO/W IVCON / [...] small vessel ischemic changes. No pathologic enhancement. Ob/Gyn: NICHO Transcribe Date/Time: Dec 27 2022 3:04P Dictated by : DEBI RLOON MD This examination was interpreted and the report reviewed and electronically signed by: DEBI ROLON MD on Dec 27 2022 3:11PM EST [id number] Normal [facility] THERAPY NTon 12-27-2022 THERAPY NT HNO ID: [id number] Author: Maryjo Carrillo OTR/Mary Kate Service: Occupational Therapy Author Type: Occupational Therapist Type: Therapy (PT/OT/Speech/Resp) Filed: 12/27/2022 1:44 PM Note Text: Occupational Therapy Evaluation SERVICE DATE: 12/27/2022 SERVICE TIME: 1310 to 1334 ROOM: [id number] Recommended Discharge Disposition: Home OT Recommended Discharge [...] of the year backwards order, starting with May: Able to state 7+ months correctly Evidence [...] Current and/or Former Occupation: worked for the [email or web address] for 44 years Occupational Factors Life Roles: [...] Blank malave (more content not included)... Normal [facility] Urinalysis complete panel (U )on 12-27-2022 Bilirubin Ql (U) Negative Normal Negative [facility] Comment on above: Order Comment: Speci men Type: URINE SPECIMEN Ordering Facility: [facility] Address: [address] [place] [address] Performed By: #### 2 4356-8 #### [facility] CLIA [id number] [address] Clarity (Unsp spec) Clear Normal Clear [facility] Comment on above: Order Comment: Speci men Type: URINE SPECIMEN Ordering Facility: [facility] Address: [address] [place] [address] Performed By: #### 2 4356-8 #### [facility] CLIA [id number] [address] Color (U) Colorless Normal yellow [facility] Comment on above: Order Comment: Speci men Type: URINE SPECIMEN Ordering Facility: [facility] Address: [address] [address] Performed By: #### 2 4356-8 #### [facility] CLIA [id number] [address] [place] Epithelial cells LM.HPF (Urine sed) [#/Area] Few Abnormal None Seen [facility] Comment on above: Order Comment: Speci men Type: URINE SPECIMEN Ordering Facility: [facility] Address: [address] [place] [address] Performed By: #### 2 4356-8 #### [facility] CLIA [id number] [address] Glucose Test strip (U) [Mass/Vol] Negative Normal Trace, Negative [facility] Comment on above: Order Comment: Speci men Type: URINE SPECIMEN Ordering Facility: [facility] Address: [address] [place] [address] Performed By: #### 2 6-8 #### [facility] CLIA [id number] [address] Hemoglobin Ql (U) Negative Normal Negative, Trace [facility] Comment on above: Order Comment: Speci men Type: URINE SPECIMEN Ordering Facility: [facility] Address: [address] [place] [address] Performed By: #### 2 6-8 #### [facility] CLIA [id number] [address] Hyaline casts (Urine sed) [#/Area] 1-3 /LPF Abnormal 0 /LPF [facility] Comment on above: Order Comment: Speci men Type: URINE SPECIMEN Ordering Facility: [facility] Address: [address] [place] [address] Performed By: #### 2 4356-8 #### [facility] CLIA [id number] [address] Ketones Ql (U) Negative Normal Negative, Trace [facility] Comment on above: Order Comment: Speci men Type: URINE SPECIMEN Ordering Facility: [facility] Address: [address] [place] [address] Performed By: #### 2 4356-8 #### [facility] CLIA [id number] [address] Leukocyte esterase Test strip Ql (U) Negative Normal Negative, 25 Олег/uL [facility] Comment on above: Order Comment: Speci men Type: URINE SPECIMEN Ordering Facility: [facility] Address: [address] [place] [address] Performed By: #### 2 4356-8 #### [facility] CLIA [id number] [address] Nitrite Ql (U) Negative Normal Negative [facility] Comment on above: Order Comment: Speci men Type: URINE SPECIMEN Ordering Facility: [facility] Address: [address] [place] [address] Performed By: #### 2 4356-8 #### [facility] CLIA [id number] [address] pH (U) 5.0 [pH] Normal 5.0-8.0 [facility] Comment on above: Order Comment: Speci men Type: URINE SPECIMEN Ordering Facility: [facility] Address: [address] [place] [address] Performed By: #### 2 4356-8 #### [facility] CLIA [id number] [address] Protein (U) [Mass/Vol] Negative Normal Trace , Negative [facility] Comment on above: Order Comment: Speci men Type: URINE SPECIMEN Ordering Facility: [facility] Address: [address] [place] [address] Performed By: #### 2 4356-8 #### [facility] CLIA [id number] [address] RBC LM.HPF (Urine sed) [#/Area] 0-3 /HPF Normal 0-3 /HPF [facility] Comment on above: Order Comment: Speci men Type: URINE SPECIMEN Ordering Facility: [facility] Address: [address] [place] [address] Performed By: #### 2 4356-8 #### [facility] CLIA [id number] [address] Specific gravity (U) [Rel density] 1.007 Normal 1.005-1.03 0 [facility] Comment on above: Order Comment: Speci men Type: URINE SPECIMEN Ordering Facility: [facility] Address: [address] [place] [address] Performed By: #### 2 4356-8 #### [facility] CLIA [id number] [address] Urobilinogen Ql (U) Normal Normal Negative [facility] Comment on above: Order Comment: Speci men Type: URINE SPECIMEN Ordering Facility: [facility] Address: [address] [place] [address] Performed By: #### 2 4356-8 #### [facility] CLIA [id number] [address] WBC LM.HPF (Urine sed) [#/Area] 0-5 /HPF Normal 0-5 /HPF [facility] Comment on above: Order Comment: Speci men Type: URINE SPECIMEN Ordering Facility: [facility] Address: [address] [place] [address] Performed By: #### 2 4356-8 #### [facility] CLIA [id number] [address] [place] ALLIED HEALTHon 12-26-2022 ALLIED HEALTH HNO ID: [id number] Author: Deirdre Amin RT(R) Service: Radiology Author [...] Quentin(R) December 26, 2022 3:32 PM Normal [facility] Basic metabolic 2000 panelon 12-26-2022 Anion gap [Moles/Vol] 13 mmol/L Normal 9-18 [facility] Comment on above: Order Comment: Speci men Type: BLOOD SPECIMEN Ordering Facility: [facility] Address: [address] [place] [address] Performed By: #### 2 4321-2 #### [facility] CLIA [id number] [address] [place] Calcium [Mass/Vol] 8.9 mg/dL Normal 8.5-10.2 [facility] Comment on above: Order Comment: Speci men Type: BLOOD SPECIMEN Ordering Facility: [facility] Address: [address] [place] [address] Performed By: #### 2 4321-2 #### [facility] CLIA [id number] [address] [place] [address] [place] Chloride [Moles/Vol] 97 mmol/L Normal 97-105 [facility] Comment on above: Order Comment: Speci men Type: BLOOD SPECIMEN Ordering Facility: [facility] Address: [address] [place] [address] Performed By: #### 2 4321-2 #### [facility] CLIA [id number] 1 [place] [address] [place] CO2 [Moles/Vol] 18 mmol/L Low 22-30 [facility] Comment on above: Order Comment: Speci men Type: BLOOD SPECIMEN Ordering Facility: [facility] Address: [address] [place] [address] Performed By: #### 2 4321-2 #### [facility] CLIA [id number] [address] [place] Creatinine [Mass/Vol] 0.92 mg/dL Normal 0.73-1.22 [facility] Comment on above: Order Comment: Blair kirk Type: BLOOD SPECIMEN Ordering Facility: [facility] Address: [address] [place] [address] Performed By: #### 2 4321-2 #### [facility] CLIA [id number] 1 [place] [address] [place] ESTIMATED GLOMERULAR FILTRATION RATE 82 mL/min/1.73m??? Normal >=60 [facility] Comment on above: Order Comment: Jaylinsarthak kirk Type: BLOOD SPECIMEN Ordering Facility: [facility] Address: [address] [place] [address] Result Comment: Birgit mated Glomerular Filtration Rate [...] GFR. Performed By: #### 2 4321-2 #### [facility] CLIA [id number] [address] [place] [address] [place] Glucose [Mass/Vol] 115 mg/dL High 74-99 [facility] Comment on above: Order Comment: Blair kirk Type: BLOOD SPECIMEN Ordering Facility: [facility] Address: [address] [place] [address] Result Comment: The [place] Diabetes Association (ADA) provides guidance for cutoff [...] Standards of Medical Care in Diabetes 2016, [place] [employer] Association. Diabetes Care. 2016.39(Suppl 1). Performed By: #### 2 4321-2 #### [facility] CLIA [id number] [address] [place] Potassium [Moles/Vol] Normal [facility] Comment on above: Order Comment: Speci men Type: BLOOD SPECIMEN Ordering Facility: [facility] Address: [address] [place] [address] Result Comment: Unab le to assay due to interference from hemolysis. Suggest reorder as clinically indicated. Performed By: #### 2 4321-2 #### [facility] CLIA [id number] [address] OF [facility] Sodium [Moles/Vol] 128 mmol/L Low 136-144 [facility] Comment on above: Order Comment: Blair kirk Type: BLOOD SPECIMEN Ordering Facility: [facility] Address: [address] [place] [address] Performed By: #### 2 4321-2 #### [facility] CLIA [id number] [address] STATES OF [facility] Urea nitrogen [Mass/Vol] 16 mg/dL Normal 9-24 [facility] Comment on above: Order Comment: Speci men Type: BLOOD SPECIMEN Ordering Facility: [facility] Address: [address] [place] [address] Performed By: #### 2 4321-2 #### [facility] CLIA [id number] [address] OF [facility] CONSULT PROGon 12-26-2022 CONSULT PROG HNO ID: [id number] Author: Romain Gasca, INTEGRATED CIRCUIT DESIGN ENGINEER.TRIMMING CUTTER MACHINE Service: Neurosurgery Author Type: Nurse Practitioner Type: [...] (Oral) Resp 18 Ht 165.1 cm (5' 5) Wt 79.6 kg (175 lb 7.8 oz) [...] hemorrhage. ECASS hemorrhagic transformation score: Not Applicable Ob/Gyn: NICHO Transcribe Date/Time: Dec 26 2022 12:24A [...] updated accordingly on 12/26/2022 SIGNATURE: Romain Gasca APRN.CNP PATIENT NAME: Atif Colón DATE: December 26, 2022 TIME: 5:37 AM Romain Gasca APRN.TRIMMING CUTTER MACHINE Pager: [phone] Neurosurgery Pager: [phone] Normal [facility] CT BRAIN WO IVCONon 12-27-[address] BRAIN WO IVCON * * *Final Report* * * DATE OF EXAM: Dec 25 2022 11:30PM [facility] 0504 - CT BRAIN WO IVCON / [...] head 12/24/[address] neck 10/18/2018 RESULT: Hydraulic Punch Press Operator (topogram) images: No additional findings. Post-operative change: [...] an acute intracranial process. 2. Stable exam. [facility] Transcribe Date/Time: Dec 26 2022 12:24A Dictated by : JESSY RUIZ MD This examination was interpreted and the report reviewed and electronically signed by: JESSY RUIZ MD on Dec 26 2022 12:36AM EST [id number] Normal [facility] ECG COMPLETEon 12-26-2022 ECG COMPLETE Ventricular Rate : 1 05 BPM Atrial Rate : 105 BPM P-R Interval : 248 ms QRS Duration : 66 ms Q-T Interval : 326 ms QTC Calculation(Bazett) : 430 ms Calculated R Neihart : 47 degrees Calculated T Neihart : 36 degrees SINUS TACHYCARDIA WITH 1ST DEGREE A-V BLOCK WITH PREMATURE ATRIAL COMPLEXES BORDERLINE ECG WHEN COMPARED WITH ECG OF 25-DEC-2022 03:53, PREMATURE ATRIAL COMPLEXES ARE NOW PRESENT ND INTERVAL HAS INCREASED Confirmed by MD ORTIZ DAVID ([id number]) on 12/29/2022 12:32:11 PM NAME : ATIF COLÓN PID : [id number] : 1935 Gender : Male Race : ORD : [id number] Procedure Date : Dec 26 2022 07:55:50 Edit Date : Dec 29 2022 12:32:12 Diagnosis: SINUS TACHYCARDIA WITH 1ST DEGREE A-V BLOCK WITH PREMATURE ATRIAL COMPLEXES BORDERLINE ECG WHEN COMPARED WITH ECG OF 25-DEC-2022 03:53, PREMATURE ATRIAL COMPLEXES ARE NOW PRESENT ND INTERVAL HAS INCREASED Confirmed by MD ORTIZ DAVID ([id number]) on 12/29/2022 12:32:11 PM Test Reason : Arrhythmia Location : 81 : [id number] Overread By : MD ORTIZ DAVID Edited By : MD ORTIZ DAVID Referred By : , Acquired by : JAMES ALBERTS [facility] NURSING PROGon 12-26-2022 NURSING PROG HNO ID: [id number] Author: Joann Guzman, RN Service: Nursing Author Type: Registered Nurse Type: Nursing Progress Note Filed: 12/26/2022 6:22 PM Note Text: Other: Pts daughter Sindy would like to be called and updated [phone]. Will continue to monitor. [facility] NURSING PROG HNO ID: [id number] Author: Noemy Olivares, KATARZYNA Service: Nursing Author Type: Registered Nurse Type: [...] Apologizing for yelling. Resting in bed calmly. [facility] NURSING PROG HNO ID: [id number] Author: Noemy Olivares, RN Service: Nursing Author [...] ct, zofran, NS cont. Sitter in place. [facility] XR PELVIS 1V APon 12-26-2022 XR PELVIS [...] spine. IMPRESSION: No radiopaque penile implant identified. Ob/Gyn: [facility] Transcribe Date/Time: Dec 27 2022 7:35A Dictated by : IZABELA BUSTAMANTE MD This examination was interpreted and the report reviewed and electronically signed by: IZABELA BUSTAMANTE MD on Dec 27 2022 7:36AM EST [id number] Normal [facility] Basic metabolic 2000 panelon 12-25-2022 Anion gap [Moles/Vol] 14 mmol/L Normal 9-18 [facility] Comment on above: Order Comment: Speci men Type: BLOOD SPECIMEN Ordering Facility: [facility] Address: [address] [place] [address] Performed By: #### 2 4321-2 #### [facility] CLIA [id number] 1 [place] [address] [place] Calcium [Mass/Vol] 9.7 mg/dL Normal 8.5-10.2 [facility] Comment on above: Order Comment: Speci men Type: BLOOD SPECIMEN Ordering Facility: [facility] Address: [address] [place] [address] Performed By: #### 2 4321-2 #### [facility] CLIA [id number] 1 [place] [address] [place] Chloride [Moles/Vol] 99 mmol/L Normal 97-105 [facility] Comment on above: Order Comment: Speci men Type: BLOOD SPECIMEN Ordering Facility: [facility] Address: [address] [place] [address] Performed By: #### 2 4321-2 #### [facility] CLIA [id number] 1 [place] [address] [place] CO2 [Moles/Vol] 20 mmol/L Low 22-30 [facility] Comment on above: Order Comment: Specsarthak kirk Type: BLOOD SPECIMEN Ordering Facility: [facility] Address: [address] [address] Performed By: #### 2 4321-2 #### [facility] CLIA [id number] [address] Creatinine [Mass/Vol] 1.05 mg/dL Normal 0.73-1.22 [facility] Comment on above: Order Comment: Speci men Type: BLOOD SPECIMEN Ordering Facility: [facility] Address: [address] [address] Performed By: #### 2 4321-2 #### [facility] CLIA [id number] [address] ESTIMATED GLOMERULAR FILTRATION RATE 70 mL/min/1.73m??? Normal >=60 [facility] Comment on above: Order Comment: Blair men Type: BLOOD SPECIMEN Ordering Facility: [facility] Address: [address] [place] [address] Result Comment: Birgit mated Glomerular Filtration Rate [...] GFR. Performed By: #### 2 4321-2 #### [facility] CLIA [id number] [address] [place] [address] Glucose [Mass/Vol] 86 mg/dL Normal 74-99 [facility] Comment on above: Order Comment: Speci yelena Type: BLOOD SPECIMEN Ordering Facility: [facility] Address: [address] [place] [address] Result Comment: The [place] Diabetes Association (ADA) provides guidance for cutoff [...] Standards of Medical Care in Diabetes 2016, [place] [employer]. Diabetes Care. 2016.39(Suppl 1). Performed By: #### 2 4321-2 #### [facility] CLIA [id number] [address] Potassium [Moles/Vol] 3.9 mmol/L Normal 3.7-5.1 [facility] Comment on above: Order Comment: Blair kirk Type: BLOOD SPECIMEN Ordering Facility: [facility] Address: [address] [place] [address] Performed By: #### 2 4321-2 #### [facility] CLIA [id number] [address] Sodium [Moles/Vol] 133 mmol/L Low 136-144 [facility] Comment on above: Order Comment: Blair kirk Type: BLOOD SPECIMEN Ordering Facility: [facility] Address: [address] [place] [address] Performed By: #### 2 4321-2 #### [facility] CLIA [id number] [address] Urea nitrogen [Mass/Vol] 18 mg/dL Normal 9-24 [facility] Comment on above: Order Comment: Blair kirk Type: BLOOD SPECIMEN Ordering Facility: [facility] Address: [address] [address] Performed By: #### 2 4321-2 #### [facility] CLIA [id number] [address] CBC panel Auto (Bld)on 12-25 Erythrocyte distribution width (RBC) [Ratio] 13.4 % Normal 11.5-15.0 [facility] Comment on above: Order Comment: Blair kirk Type: BLOOD SPECIMEN Ordering Facility: [facility] Address: [address] [place] [address] Performed By: #### 2 4321-2 #### [facility] CLIA [id number] [address] Hematocrit (Bld) [Volume fraction] 36.4 % Low 39.0-51.0 [facility] Comment on above: Order Comment: Speci men Type: BLOOD SPECIMEN Ordering Facility: [facility] Address: [address] [place] [address] Performed By: #### 2 1-2 #### [facility] CLIA [id number] [address] Hemoglobin (Bld) [Mass/Vol] 12.2 g/dL Low 13.0-17.0 [facility] Comment on above: Order Comment: Speci men Type: BLOOD SPECIMEN Ordering Facility: [facility] Address: [address] [place] [address] Performed By: #### 2 1-2 #### [facility] CLIA [id number] [address] MCH (RBC) [Entitic mass] 33.3 pg Normal 26.0-34.0 [facility] Comment on above: Order Comment: Speci men Type: BLOOD SPECIMEN Ordering Facility: [facility] Address: [address] [place] [address] Performed By: #### 2 1-2 #### [facility] CLIA [id number] [address] STATES OF [facility] MCHC (RBC) [Mass/Vol] 33.5 g/dL Normal 30.5-36.0 [facility] Comment on above: Order Comment: Speci men Type: BLOOD SPECIMEN Ordering Facility: [facility] Address: [address] [place] [address] Performed By: #### 2 1-2 #### [facility] CLIA [id number] [address] MCV (RBC) [Entitic vol] 99.5 fL Normal 80.0-100.0 [facility] Comment on above: Order Comment: Speci men Type: BLOOD SPECIMEN Ordering Facility: [facility] Address: [address] [address] Performed By: #### 2 4321-2 #### [facility] CLIA [id number] [address] [place] Nucleated RBC (Bld) [#/Vol] 10*3/uL Normal <0.01 [facility] Comment on above: Order Comment: Speci men Type: BLOOD SPECIMEN Ordering Facility: [facility] Address: [address] [address] Performed By: #### 2 1-2 #### [facility] CLIA [id number] [address] [place] Platelet mean volume (Bld) [Entitic vol] 9.3 fL Normal 9.0-12.7 [facility] Comment on above: Order Comment: Speci men Type: BLOOD SPECIMEN Ordering Facility: [facility] Address: [address] [address] Performed By: #### 2 4321-2 #### [facility] CLIA [id number] [address] [place] Platelets (Bld) [#/Vol] 271 10*3/uL Normal 150-400 [facility] Comment on above: Order Comment: Speci men Type: BLOOD SPECIMEN Ordering Facility: [facility] Address: [address] [address] Performed By: #### 2 1-2 #### [facility] CLIA [id number] [address] [place] RBC (Bld) [#/Vol] 3.66 10*6/uL Low 4.20-6.00 [facility] Comment on above: Order Comment: Speci men Type: BLOOD SPECIMEN Ordering Facility: [facility] Address: [address] [address] Performed By: #### 2 4321-2 #### [facility] CLIA [id number] [address] [place] [address] [place] WBC (Bld) [#/Vol] 8.02 10*3/uL Normal 3.70-11.00 [facility] Comment on above: Order Comment: Speci men Type: BLOOD SPECIMEN Ordering Facility: [facility] Address: [address] [place], [place] [id number] Performed By: #### 2 4321-2 #### [facility] CLIA [id number] [address] [place] [address] [facility] [place] [address] BRAIN WO IVCONon 12-26-[address] BRAIN WO IVCON * * *Final Report* * * DATE OF EXAM: Dec 25 2022 7:21AM [facility] 0504 - CT BRAIN WO IVCON / [...] 12/24/2022. CT neck 10/18/2018 and 05/24/2014. 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 Post-operative change: None. Acute [...] 3. Mild generalized brain parenchymal volume loss. Ob/Gyn: NICHO Transcribe Date/Time: Dec 25 2022 8:34A Dictated by : JACOB QUEVEDO MD This examination was interpreted and the report reviewed and electronically signed by: JACOB QUEVEDO MD on Dec 25 2022 8:44AM EST [id number] Normal [facility] ECG COMPLETEon 12-25-2022 ECG COMPLETE Ventricular Rate : 1 00 BPM Atrial Rate : 100 BPM P-R Interval : 168 ms QRS Duration : 68 ms Q-T Interval : 334 ms QTC Calculation(Bazett) : 430 ms Calculated P Neihart : 93 degrees Calculated R Neihart : 40 degrees Calculated T Neihart : 45 degrees NORMAL SINUS RHYTHM NORMAL ECG NO PREVIOUS ECGS AVAILABLE Confirmed by MD BELL THOMAS ([id number]) on 01/15/2023 11:38:11 AM NAME : ATIF COLÓN PID : [id number] : 1935 Gender : Male Race : ORD : [id number] Procedure Date : Dec 25 2022 03:53:39 Edit Date : Jan 15 2023 11:38:14 Diagnosis: NORMAL SINUS RHYTHM NORMAL ECG NO PREVIOUS ECGS AVAILABLE Confirmed by MD BELL THOMAS ([id number]) on 01/15/2023 11:38:11 AM Test Reason : Chest Pain Location : 4 : AKED 21 Overread By : MD BELL THOMAS Edited By : MD BELL THOMAS Referred By : , Acquired by : MAMIE DEGROOT [facility] ED NOTEon 12-25-2022 ED NOTE HNO ID: [id number] Author: Gabriella Santos RN Service: ? Author Type: Registered Nurse Type: ED Notes Filed: 12/25/2022 6:03 AM Note Text: Report given to Ana Lilia COLÓN [address] [facility] HISTORY PHYSICALon HISTORY PHYSICAL HNO ID: [id number] Author: Hollis Stuart II, MD Service: Hospital Medicine Author Type: Physician Type: HANDP Filed: 12/25/2022 4:33 AM Note Text: DEPARTMENT OF HOSPITAL MEDICINE HISTORY AND PHYSICAL EXAM SERVICE DATE: 12/24/2022 SERVICE TIME: 11:02 PM Primary Care Physician: Jordan Johnson MD NIGHT AND WEEKEND COVERAGE: From 7am - 7pm, please call Sound attending After 7pm, please call cross cover pager #[phone] Subjective CHIEF COMPLAINT: fall, trauma to head [...] Automated System Data and Physical Exam Below ########################## ########################## ## ########################## ########################## ## ########################## ########################## ## PAST MEDICAL HISTORY Diagnosis Date Abdominal pain, [...] 5' 6 (more content not included)... Normal [facility] THERAPY NTon 12-25-2022 THERAPY NT HNO ID: [id number] Author: Sawyer Wei, PT Service: Physical Therapy Author Type: Physical Therapist Type: Therapy (PT/OT/Speech/Resp) Filed: 12/25/2022 2:45 PM Note Text: Physical Therapy Evaluation SERVICE DATE: 12/25/2022 SERVICE TIME: 1329 to 1355 ROOM: [id number] Recommended Discharge Disposition: Home PT Recommended Discharge [...] Transfer Supine to/fro (more content not included)... Normal [facility] ALLIED HEALTHon 12-24-2022 [facility] HNO ID: [id number] Author: Padmini Schmitz RT(R) Service: Radiology Author [...] RT Malia(R) December 24, 2022 7:54 PM [facility] Absolute lymphocyte countOrd ered By: Jaja Agrawal on 12-24-2022 Lymphocytes Auto (Unsp spec) [#/Vol] 1.51 10*3/uL 0.83-4.51 [facility] Basophil percentageOrdered B y: Jaja Agrawal on 12-24-2022 Basophils/100 WBC (Bld) 0.6 % 0-[address] [facility] Chloride [Moles/Vol] 103 mmol/L 98-107 [facility] Eosinophils/100 WBC (Bld) 1.3 % 0-5 [facility] Glucose [Mass/Vol] 100 mg/dL 74-106 [facility] Comment on above: Fasting Glucose resu lt from 100 to 125 mg/dL suggests IMPAIRED HOMEOSTASIS per A.D.A. criteria. Neutrophils (Bld) [#/Vol] 5.9 10*3/uL 2.0-7.7 [facility] Neutrophils/100 WBC (Bld) 71.6 % 47-70 [facility] Potassium [Moles/Vol] 4.2 mmol/L 3.5-5.1 [facility] Sodium [Moles/Vol] 134 mmol/L 136-145 [facility] WBC (Bld) [#/Vol] 8.3 10*3/uL 4.4-11.0 [facility] Blood erythrocytes count (nu mber/volume)Ordered By: Jjaa Agrawal on 12-24-2022 RBC (Bld) [#/Vol] 3.40 10*6/uL 4.6-6.2 [facility] Blood hemoglobin measurement (mass/volume)Ordered By: Jaja Agrawal on 12-24-2022 Hemoglobin (Bld) [Mass/Vol] 11.1 g/dL 13.0-16.5 [facility] Blood lymphocytes/100 leukoc ytesOrdered By: Jaja Agrawal on 12-24-2022 Lymphocytes/100 WBC (Bld) 18.3 % 19-41 [facility] Blood monocytes/100 leukocyt esOrdered By: Jaja Agrawal on 12-24-2022 Monocytes/100 WBC (Bld) 8.0 % 0-[address] [facility] Blood platelet mean volumeOr dered By: Jaja Agrawal on 12-24-2022 Platelet mean volume (Bld) [Entitic vol] 9.3 fL 6.2-12.0 [facility] CONSULTon 12-24-2022 CONSULT HNO ID: [id number] Author: Vashti Motley MD, PhD Service: Neurosurgery Author Type: Physician Type: Consults Filed: 12/26/2022 1:25 PM Note Text: CONSULT: NEUROSURGERY SERVICE Patient Name: Atif Colón Date of : 1935 SERVICE DATE: 12/24/2022 SERVICE TIME: 7:35 PM REASON FOR CONSULT: [facility] REQUESTING PHYSICIAN: Samanta PRIMARY CARE PHYSICIAN: Jordan [...] this and they recommended he go to [facility] for evaluation. 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 He was transferred to [facility] for further trauma evaluation. Currently has lidocaine patch which is helping his chest pain. Denies MOYA n/v or focal neurologic complaint. Denies use of blood thinners. Of note he had a tooth extracted on Wednesday and his family states he lost a lot of blood. PAST MEDICAL HISTORY Diagnosis Date Abdominal pain, [...] Room Air IANDO: No results for input(s): NA, K, CHLOR, CO2, BUN, CREAT, GLUC, ANION, CA, MG, P, ALB, AST, ALT, ALKPHOS, TBILI, DBILI, PHOSINTL, WBC, HB, HCT, PLT, LACT, INR, PH, PCO2, (more content not included)... Normal [facility] CONSULT HNO ID: [id number] Author: Alyssa England MD Service: General Surgery Author Type: Physician Type: Consults Filed: 12/24/2022 10:25 PM Note Text: TRAUMA SURGERY CONSULT ARRIVAL DATE: 12/24/2022 ARRIVAL TIME: evening CATEGORY: Consult INJURY DATE: 12/23/2022 INJURY TIME: unknown Subjective 87 year old male w/ a history of abdominal pain, CKD, GERD, HTN, Laparoscopic Cholecystectomy and abdominal hernia repair who presents as a transfer from [facility] for a trauma evaluation. Patient reports [...] unknown LOC Labs: No results for input(s): NA, K, CHLOR, CO2, BUN, CREAT, GLUC, ANION, CA, MG, P, ALB, AST, ALT, ALKPHOS, TBILI, DBILI, PHOSINTL, WBC, HB, HCT, PLT, LACT, IN (more content not included)... Normal [facility] CT BRAIN WO IVCONon 12-25-19 CT BRAIN WO IVCON * * *Final Report* * * DATE OF EXAM: Dec 24 2022 7:57PM [facility] 0504 - CT BRAIN WO IVCON / [...] above findings. IMPRESSION: No acute intracranial abnormality. Ob/Gyn: PSCB Transcribe Date/Time: Dec 24 2022 9:38P Dictated by : NARCISA KHOURY MD This examination was interpreted and the report reviewed and electronically signed by: NARCISA KHOURY MD on Dec 24 2022 9:41PM EST [id number] Normal [facility] Determination of erythrocyte mean corpuscular volume (MCV)Ordered By: Jaja Agrawal on 12-24-2022 MCV (RBC) [Entitic vol] 102.6 fL 80-[address] [facility] ED NOTEon 12-24-2022 ED NOTE HNO ID: [id number] Author: Gabriella Santos RN Service: ? Author Type: Registered Nurse Type: ED Notes Filed: 12/24/2022 8:52 PM Note Text: Spoke to Dr. Cueva about replacing lidocaine patch. Dr. Cueva to order new patch Normal [facility] ED NOTE HNO ID: [id number] Author: Gabriella Santos RN Service: ? Author Type: Registered Nurse Type: ED Notes Filed: 12/24/2022 7:25 PM Note Text: Ct notified Normal [facility] ED NOTE HNO ID: [id number] Author: Geoff Tao DO Service: Emergency Medicine [...] had any headache or visual changes or numbness/tingling/weakness prior to or after the event. States he also must of hit his chest as well. Went to an urgent care this morning to be evaluated for his chest discomfort and was transferred to [facility] where he had CT head and [...] for observation admission. Patient was admitted to [facility] for further management. Normal [facility] ED NOTE HNO ID: [id number] Author: Genesis Mcmillan, RN Service: Emergency Medicine Author Type: Registered Nurse Type: ED Notes Filed: 12/24/2022 5:12 PM Note Text: Pt on continuous cardiac and SPO2 monitoring. Pt has call light in hand. [facility] ED NOTE HNO ID: [id number] Author: Mandi Groves RN Service: ? Author Type: Registered Nurse Type: ED Notes Filed: 12/24/2022 5:04 PM Note Text: Bed: 21-ED Expected date: Expected time: Means of arrival: Comments: kevin Normal [facility] ED PROV NOTEon 12-24-2022 ED PROV NOTE HNO ID: [id number] Author: Bret Cueva DO Service: Emergency Medicine Author Type: Resident Type: ED Provider Notes Filed: 12/24/2022 10:18 PM Note Text: -- Attestation signed by Geoff Tao DO at [...] Tao DO Date: 12/24/2022 Time: 11:25 PM -- ED Provider Note Patient Name: Atif Colón : 1935 SERVICE DATE: 12/24/22 History Patient presents with: Functional Transfers: Pt arrives via EMS as a transfer from [facility]. Pt had a fall yesterday afternoon where he fell forward and hit chest and head on toilet. Pt did not go to get checked out until today. Per EMS, [facility] found a brain bleed. Pt is AANDO x4. Pt claims may have had +LOC. Patient is an 87-year-old male who presents to the emergency department as a transfer from [facility] emergency department for trauma consultation. Reportedly suffered [...] chest wall pain, he was seen at [facility] and found to have a thalamic brain [...] 79.4 kg (175 lb) 1.676 m (5' 6) Physical Exam Constitutional: Appearance: Normal appearance. HENT: [...] Effort: Pulm (more content not included)... Normal [facility] Hematocrit Auto (Bld) [Volum e fraction]Ordered By: Jaja Agrawal on 12-24-2022 Hematocrit (Bld) [Volume fraction] 34.9 % 40-54 [facility] INR in Blood by Coagulation assayOrdered By: Jaja Agrawal on 12-24-2022 INR Coag (Bld) [Relative time] 1.0 {INR} [facility] Laboratory - Chemistry and C hemistry - challengeOrdered By: Jaja Agrawal on 12-24-2022 CO2 [Moles/Vol] 23.0 mmol/L 21.0-32.0 [facility] Urea nitrogen/Creatinine [Mass ratio] 19.9 mg/mg 10-20 [facility] Laboratory - CoagulationOrde red By: Jaja Agrawal on 12-24-2022 PT Coag (PPP) [Time] 13.6 s 11.7-14.9 [facility] - Hematology and Cell countsOrdered By: Jaja Agrawal on 12-24-2022 Erythrocyte distribution width (RBC) [Entitic vol] 52.7 fL 35.1-43.9 [facility] Erythrocyte distribution width (RBC) [Ratio] 13.9 % 11.6-14.6 [facility] Immature granulocytes/100 WBC (Bld) 0.200 % 0.0-0.9 [facility] Comment on above: IG% - Immature Granu locytes (promyelocytes, myelocytes and metamyelocytes) > 1% indicates that a LEFT SHIFT is Present. MCH (RBC) [Entitic mass] 32.6 pg 27.0-32.0 [facility] Nucleated RBC/100 WBC (Bld) [Ratio] 0 % 0-5 [facility] MCHC Auto (RBC) [Mass/Vol]Or dered By: Jaja Agrawal on 12-24-2022 MCHC (RBC) [Mass/Vol] 31.8 g/dL 32-36 [facility] No Panel InformationOrdered By: Jaja Agrawal on 12-24-2022 Estimated Creatinine Clearance Calc 38.42 ml/min [facility] Estimated GFR (MDRD) Amer 64 mL/min >60 [facility] Comment on above: GFR Calc Estimated GFR (MDRD) Non-Af Amer 53 mL/min >60 [facility] Comment on above: Non- GFR Calc Platelets bldOrdered By: Gabby Agrawal on 12-24-2022 Platelets (Bld) [#/Vol] 258 10*3/uL 150-450 [facility] Serum or plasma calcium albaro urement (mass/volume)Ordered By: Jaja Agrawal on 12-24-2022 Calcium [Mass/Vol] 8.9 mg/dL 8.5-10.1 [facility] Serum or plasma creatinine m easurement (mass/volume)Ordered By: Jaja Agrawal on 12-24-2022 Creatinine [Mass/Vol] 1.36 mg/dL 0.70-1.30 [facility] Comment on above: The validity of the calculated GFR & GFRAA in patients over 70 years has not been determined. Clinical correlation is essential. Serum or plasma urea nitroge n measurement (mass/volume)Ordered By: Jaja Agrawal on 12-24-2022 Urea nitrogen [Mass/Vol] 27 mg/dL 7-18 [facility] Thin prep Papanicolaou smear with manual screeningOrdered By: Jaja Agrawal on 12-24-2022 Thin prep Papanicolaou smear with manual screening 8 5-15 [facility] XR HUMERUS 2V AP/LAT RIGHTon 09-30-2022 [facility] XR Humerus - right AP and La teralon 09-30-2022 IMPRESSION: Distal r ight clavicle fracture is favored to be remote or subacute, but is new from 2019. No humerus fracture. Ob/Gyn: PSCB Transcribe Date/Time: Sep 30 2022 6:07P Dictated by : SUPRIYA GONZÁLES MD This examination was interpreted and the report reviewed and electronically signed by: SUPRIYA GONZÁLES MD on Sep 30 2022 6:09PM [facility] DIVISION OF RADIOLOGY * * *Final Report* [...] the humeral head. DIVISION OF RADIOLOGY Provider, [facility] - 09/30/2022 * * *Final Report* * [...] is new from 2019. No humerus fracture. Ob/Gyn: NICHO Transcribe Date/Time: Sep 30 2022 6:07P Dictated by : SUPRIYA GONZÁLES MD This examination was interpreted and the report reviewed and electronically signed by: SUPRIYA GONZÁLES MD on Sep 30 2022 6:09PM EST [facility] Radiology Study observation (narrative) Gena [facility] XR Humerus - right AP and La teralOrdered By: [facility]cf Provider on 09-30-2022 [facility] Absolute lymphocyte countOrd ered By: Dr. Ponce on 07-10-2022 Lymphocytes Auto (Unsp spec) [#/Vol] 1.93 10*3/uL 0.83-4.51 [facility] Basophil percentageOrdered B y: Dr. Ponce on 07-10-2022 Basophils/100 WBC (Bld) 0.5 % 0-[address] [facility] Bilirubin [Mass/Vol] 0.40 mg/dL 0.20-1.00 [facility] Comment on above: For patients on eltr ombopag therapy, use of Dimension Lindsay TBIL is not recommended. Chloride [Moles/Vol] 102 mmol/L 98-107 [facility] Eosinophils/100 WBC (Bld) 6.1 % 0-5 [facility] Glucose [Mass/Vol] 88 mg/dL 74-106 [facility] Neutrophils (Bld) [#/Vol] 4.5 10*3/uL 2.0-7.7 [facility] Neutrophils/100 WBC (Bld) 59.9 % 47-70 [facility] Potassium [Moles/Vol] 4.4 mmol/L 3.5-5.1 [facility] Protein [Mass/Vol] 8.0 g/dL 6.4-8.2 [facility] Sodium [Moles/Vol] 135 mmol/L 136-145 [facility] WBC (Bld) [#/Vol] 7.4 10*3/uL 4.4-11.0 [facility] Blood erythrocytes count (nu mber/volume)Ordered By: Dr. Ponce on 07-10-2022 RBC (Bld) [#/Vol] 3.57 10*6/uL 4.6-6.2 [facility] Blood hemoglobin measurement (mass/volume)Ordered By: Dr. Ponce on 07-10-2022 Hemoglobin (Bld) [Mass/Vol] 11.8 g/dL 13.0-16.5 [facility] Blood lymphocytes/100 leukoc ytesOrdered By: Dr. Ponce on 07-10-2022 Lymphocytes/100 WBC (Bld) 26.0 % 19-41 [facility] Blood monocytes/100 leukocyt esOrdered By: Dr. Ponce on 07-10-2022 Monocytes/100 WBC (Bld) 7.4 % 0-[address] [facility] Blood platelet mean volumeOr dered By: Dr. Ponce on 07-10-2022 Platelet mean volume (Bld) [Entitic vol] 10.4 fL 6.2-12.0 [facility] Determination of erythrocyte mean corpuscular volume (MCV)Ordered By: Dr. Ponce on 07-10-2022 MCV (RBC) [Entitic vol] 100.6 fL 80-[address] [facility] Hematocrit Auto (Bld) [Volum e fraction]Ordered By: Dr. Ponce on 07-10-2022 Hematocrit (Bld) [Volume fraction] 35.9 % 40-54 [facility] INR in Blood by Coagulation assayOrdered By: Dr. Ponce on 07-10-2022 INR Coag (Bld) [Relative time] 1.1 {INR} [facility] Laboratory - Chemistry and C hemistry - challengeOrdered By: Dr. Ponce on 07-10-2022 ALP [Catalytic activity/Vol] 144 U/L 45-117 [facility] ALT [Catalytic activity/Vol] 55 U/L 16-61 [facility] CO2 [Moles/Vol] 25.0 mmol/L 21.0-32.0 [facility] Globulin (S) [Mass/Vol] 4.5 g/dL 2.2-4.[address] [facility] Urea nitrogen/Creatinine [Mass ratio] 32.1 mg/mg 10-20 [facility] Laboratory - CoagulationOrde red By: Dr. Ponce on 07-10-2022 aPTT Coag (Bld) [Time] 33.1 s 24.1-36.2 [facility] PT Coag (PPP) [Time] 14.0 s 11.7-14.9 [facility] - Hematology and Cell countsOrdered By: Dr. Ponce on 07-10-2022 Erythrocyte distribution width (RBC) [Entitic vol] 54.2 fL 35.1-43.9 [facility] Erythrocyte distribution width (RBC) [Ratio] 14.5 % 11.6-14.6 [facility] Immature granulocytes/100 WBC (Bld) 0.100 % 0.0-0.9 [facility] Comment on above: IG% - Immature Granu locytes (promyelocytes, myelocytes and metamyelocytes) > 1% indicates that a LEFT SHIFT is Present. MCH (RBC) [Entitic mass] 33.1 pg 27.0-32.0 [facility] Nucleated RBC/100 WBC (Bld) [Ratio] 0 % 0-5 [facility] MCHC Auto (RBC) [Mass/Vol]Or dered By: Dr. Ponce on 07-10-2022 MCHC (RBC) [Mass/Vol] 32.9 g/dL 32-36 [facility] No Panel InformationOrdered By: Dr. Ponce on 07-10-2022 Estimated GFR (MDRD) Amer 55 mL/min >60 [facility] Comment on above: GFR Calc Estimated GFR (MDRD) Non-Af Amer 45 mL/min >60 [facility] Comment on above: Non- GFR Calc Platelets bldOrdered By: Dr. Ponce on 07-10-2022 Platelets (Bld) [#/Vol] 217 10*3/uL 150-450 [facility] Serum or plasma albumin albaro urement (mass/volume)Ordered By: Dr. Ponce on 07-10-2022 Albumin [Mass/Vol] 3.5 g/dL 3.2-5.0 [facility] Serum or plasma albumin/glob ulin mass ratioOrdered By: Dr. Ponce on 07-10-2022 Albumin/Globulin [Mass ratio] 0.8 {ratio} 0.9-2.4 [facility] Serum or plasma calcium albaro urement (mass/volume)Ordered By: Dr. Ponce on 07-10-2022 Calcium [Mass/Vol] 9.0 mg/dL 8.5-10.1 [facility] Serum or plasma creatinine m easurement (mass/volume)Ordered By: Dr. Ponce on 07-10-2022 Creatinine [Mass/Vol] 1.56 mg/dL 0.70-1.30 [facility] Comment on above: The validity of the calculated GFR & GFRAA in patients over 70 years has not been determined. Clinical correlation is essential. Serum or plasma urea nitroge n measurement (mass/volume)Ordered By: Dr. Ponce on 07-10-2022 Urea nitrogen [Mass/Vol] 50 mg/dL 7-18 [facility] Thin prep Papanicolaou smear with manual screeningOrdered By: Dr. Ponce on 07-10-2022 Thin prep Papanicolaou smear with manual screening 30 U/L 15-37 [facility] Thin prep Papanicolaou smear with manual screening 8 5-15 [facility] CBC W Auto Differential pane l (Bld)on 06-15-2022 Basophils (Bld) [#/Vol] 0.05 10*3/uL <0.11 k/uL [facility] Basophils/100 WBC (Bld) 0.7 % [facility] Differential cell count method Nom (Bld) Auto [facility] Eosinophils (Bld) [#/Vol] 0.15 10*3/uL <0.46 k/uL [facility] Eosinophils/100 WBC (Bld) 2.2 % [facility] Erythrocyte distribution width (RBC) [Ratio] 13.7 % 11.5 - 15.0 % [facility] Hematocrit (Bld) [Volume fraction] 36.0 % Low 39.0 - 51.0 % [facility] Hemoglobin (Bld) [Mass/Vol] 11.9 g/dL Low 13.0 - 17.0 g/dL [facility] Immature granulocytes (Bld) [#/Vol] <0.10 k/uL [facility] Immature granulocytes/100 WBC (Bld) 0.3 % [facility] Lymphocytes (Bld) [#/Vol] 1.68 10*3/uL 1.00 - 4.00 k/uL [facility] Lymphocytes/100 WBC (Bld) 24.5 % [facility] MCH (RBC) [Entitic mass] 32.7 pg 26. 0 - 34.0 pg [facility] MCHC (RBC) [Mass/Vol] 33.1 g/dL 30.5 - 36.0 g/dL [facility] MCV (RBC) [Entitic vol] 98.9 fL 80.0 - 100.0 fL [facility] Monocytes (Bld) [#/Vol] 0.54 10*3/uL <0.87 k/uL [facility] Monocytes/100 WBC (Bld) 7.9 % [facility] Neutrophils (Bld) [#/Vol] 4.43 10*3/uL 1.45 - 7.50 k/uL [facility] Neutrophils/100 WBC (Bld) 64.4 % [facility] Nucleated RBC (Bld) [#/Vol] <0.01 k/uL [facility] Nucleated RBC/100 WBC (Bld) [Ratio] 0.0 /100 WBC [facility] Platelet mean volume (Bld) [Entitic vol] 11.4 fL 9.0 - 12.7 fL [facility] Platelets (Bld) [#/Vol] 246 10*3/uL 150 - 400 k/uL [facility] RBC (Bld) [#/Vol] 3.64 10*6/uL Low 4.20 - 6.00 m/uL [facility] WBC (Bld) [#/Vol] 6.87 10*3/uL 3.70 - 11.00 k/uL [facility] Basophil percentageon 2021 WBC (Bld) [#/Vol] 5.9 10*3/uL 4.4-11.0 [facility] Work Phone: Blood erythrocytes count (nu mber/volume)on 01-23-2022 RBC (Bld) [#/Vol] 3.42 10*6/uL 4.6-6.2 [facility] Work Phone: Blood hemoglobin measurement (mass/volume)on 01-23-2022 Hemoglobin (Bld) [Mass/Vol] 11.9 g/dL 13.0-16.5 [facility] Work Phone: [phone] Blood platelet mean volumeon 01-23-2022 Platelet mean volume (Bld) [Entitic vol] 10.9 fL 6.2-12.0 [facility] Work Phone: [phone] Determination of erythrocyte mean corpuscular volume (MCV)on 01-23-2022 MCV (RBC) [Entitic vol] 103.8 fL 80-[address] [facility] Work Phone: [phone] Hematocrit Auto (Bld) [Volum e fraction]on 01-23-2022 Hematocrit (Bld) [Volume fraction] 35.5 % 40-54 [facility] Work Phone: [phone] Laboratory - Hematology and Cell countson 01-23-2022 Erythrocyte distribution width (RBC) [Entitic vol] 52.0 fL 35.1-43.9 [facility] Work Phone: [phone] Erythrocyte distribution width (RBC) [Ratio] 13.5 % 11.6-14.6 [facility] Work Phone: [phone] MCH (RBC) [Entitic mass] 34.8 pg 27.0-32.0 [facility] Work Phone: MCHC Auto (RBC) [Mass/Vol]on 01-23-2022 MCHC (RBC) [Mass/Vol] 33.5 g/dL 32-36 [facility] [facility] Work Phone: [phone] Platelets bldon 01-23-2022 Platelets (Bld) [#/Vol] 268 10*3/uL 150-450 [facility] Work Phone: [phone] US ABD RT UPPER QUADRANTon 0 12-24-2021 [facility] XR Pelvis APon 08-20-2020 IMPRESSION: No acute process is seen. Ob/Gyn: PSCB Transcribe Date/Time: Aug 20 2020 3:23P Dictated by : MARILYNN UGALDE MD This examination was interpreted and the report reviewed and electronically signed by: MARILYNN UGALDE MD on Aug 20 2020 3:37PM [facility] DIVISION OF RADIOLOGY * * *Final Report* * * DATE OF EXAM: Mar 16 2021 3:16PM WOX [id number] - XR PELVIS 1V [...] is seen. DIVISION OF RADIOLOGY Provider, Mayra Pantoja [facility] - 08/20/2020 * * *Final Report* * [...] IMPRESSION IMPRESSION: No acute process is seen. Ob/Gyn: PSCB Transcribe Date/Time: Aug 20 2020 3:23P Dictated by : MARILYNN UGALDE MD This examination was interpreted and the report reviewed and electronically signed by: MARILYNN UGALDE MD on Aug 20 2020 3:37PM EST [facility] Radiology Study observation (narrative) Gena gray [facility] XR Pelvis APOrdered By: [facility] Provider on 08-20-2020 [facility] Vital Signs Date Time Vital Sign Value Performing Clinician Landry nuñez 11-01-2024 14:02-0400 Body mass index (BMI) [Ratio] 31.45 kg/m2 Fabby Moore INTEGRATED CIRCUIT DESIGN ENGINEER.EZ Work Phone: [facility] 11-01-2024 14:02-040 Body weight 85.73 kg Fabby Moore APRN.CNP Work Phone: [facility] 11-01-2024 14:02-0400 Diastolic blood pressure 68 mm[Hg] Fabby Collazologcandi INTEGRATED CIRCUIT DESIGN ENGINEER.TRIMMING CUTTER MACHINE Work Phone: [facility] 11-01-2024 14:02-0400 Heart rate 56 /min Fabby Podlogar INTEGRATED CIRCUIT DESIGN ENGINEER.TRIMMING CUTTER MACHINE Work Phone: [facility] 11-01-2024 14:02-0400 Respiratory rate 18 /min Fabby Podlogar INTEGRATED CIRCUIT DESIGN ENGINEER.TRIMMING CUTTER MACHINE Work Phone: [facility] 11-01-2024 14:02-0400 SaO2% (BldA) [Mass fraction] 96 % Fabby Podlogar INTEGRATED CIRCUIT DESIGN ENGINEER.TRIMMING CUTTER MACHINE Work Phone: [facility] 11-01-2024 14:02-0400 Systolic blood pressure 132 mm[Hg] Fabby Podlogar INTEGRATED CIRCUIT DESIGN ENGINEER.TRIMMING CUTTER MACHINE Work Phone: [facility] 05-02-2024 14:15-0500 Body mass index (BMI) [Ratio] 31.48 kg/m2 Jordan Johnson MD Work Phone: [facility] 05-02-2024 14:15-0500 Body weight 85.82 kg Jordan Johnson MD Work Phone: [facility] 05-02-2024 14:15-0500 Diastolic blood pressure 64 mm[Hg] Jordan Johnson MD Work Phone: [facility] 05-02-2024 14:15-0500 Heart rate 62 /min Jordan Johnson MD Work Phone: [facility] 05-02-2024 14:15-0500 Respiratory rate 16 /min Jordan Johnson MD Work Phone: [facility] 05-02-2024 14:15-0500 SaO2% (BldA) [Mass fraction] 97 % Jordan Johnson MD Work Phone: [facility] 05-02-2024 14:15-0500 Systolic blood pressure 136 mm[Hg] Jordan Johnson MD Work Phone: [facility] 10-25-2023 13:43-0400 Body mass index (BMI) [Ratio] 29.85 kg/m2 Fabby Podlogar INTEGRATED CIRCUIT DESIGN ENGINEER.TRIMMING CUTTER MACHINE Work Phone: [facility] 10-25-2023 13:43-0400 Body weight 81.38 kg Fabby Podlogar INTEGRATED CIRCUIT DESIGN ENGINEER.TRIMMING CUTTER MACHINE Work Phone: [facility] 10-25-2023 13:43-0400 Diastolic blood pressure 70 mm[Hg] Fabby Podlogar INTEGRATED CIRCUIT DESIGN ENGINEER.TRIMMING CUTTER MACHINE Work Phone: [facility] 10-25-2023 13:43-0400 Heart rate 59 /min Fabby Podlogar INTEGRATED CIRCUIT DESIGN ENGINEER.TRIMMING CUTTER MACHINE Work Phone: [facility] 10-25-2023 13:43-0400 Respiratory rate 16 /min Fabby Podlogar INTEGRATED CIRCUIT DESIGN ENGINEER.TRIMMING CUTTER MACHINE Work Phone: [facility] 10-25-2023 13:43-0400 SaO2% (BldA) [Mass fraction] 96 % Fabby Podlogar INTEGRATED CIRCUIT DESIGN ENGINEER.TRIMMING CUTTER MACHINE Work Phone: [facility] 10-25-2023 13:43-0400 Systolic blood pressure 138 mm[Hg] Fabby Podlogar INTEGRATED CIRCUIT DESIGN ENGINEER.TRIMMING CUTTER MACHINE Work Phone: [facility] 07-05-2023 13:49-0500 Body weight 79.83 kg Jordan Johnson MD Work Phone: [facility] 07-05-2023 13:49-0500 Diastolic blood pressure 64 mm[Hg] Jordan Johnson MD Work Phone: [facility] 07-05-2023 13:49-0500 Heart rate 65 /min Jordan Johnson MD Work Phone: [facility] 07-05-2023 13:49-0500 Respiratory rate 18 /min Jordan Johnson MD Work Phone: [facility] 07-05-2023 13:49-0500 SaO2% (BldA) [Mass fraction] 99 % Jordan Johnson MD Work Phone: [facility] 07-05-2023 13:49-0500 Systolic blood pressure 126 mm[Hg] Jordan Johnson MD Work Phone: [facility] 05-21-2023 15:47-0500 Diastolic blood pressure 78 mm[Hg] Dr. Jaime Johnson Work Phone: [facility] 05-21-2023 15:47-0500 Heart rate 88 /min Dr. Jaime Johnosn Work Phone: 9(121)120-924895 [place] [address] 05-21-2023 15:47-0500 Respiratory rate 16 /min Dr. Jaime Johnson Work Phone: 5(061)756-596704 [place] [address] 05-21-2023 15:47-0500 Systolic blood pressure 135 mm[Hg] Dr. Jaime Johnson Work Phone: 9(110)520-466595 [place] [address] 05-21-2023 14:45-0500 Body mass index (BMI) [Ratio] 29.7 kg/m2 Dr. Jaime Johnson Work Phone: 2(593)732-273095 [place] [address] 05-21-2023 14:45-0500 Body weight [address] Jaime Johnson Work Phone: 8(301)395-153095 [place] [address] 05-21-2023 13:59-0500 Body height 165.[address] Jaime Johnson Work Phone: 5(831)026-845495 [place] [address] 05-21-2023 13:59-0500 Body temperature 98.2 [degF] Dr. Jaime Johnson Work Phone: 3(227)409-717695 [place] [address] 05-21-2023 13:59-0500 SaO2% (BldA) [Mass fraction] 98 % Dr. Jaime Johnson Work Phone: [facility] 04-01-2023 15:39-0400 Diastolic blood pressure 68 mm[Hg] Jordan Johnson MD Work Phone: [facility] 04-01-2023 15:39-0400 Heart rate 93 /min Jordan Johnson MD Work Phone: [facility] 04-01-2023 15:39-0400 Respiratory rate 18 /min Jordan Johnson MD Work Phone: [facility] 04-01-2023 15:39-0400 SaO2% (BldA) [Mass fraction] 96 % Jordan Johnson MD Work Phone: [facility] 04-01-2023 15:39-0400 Systolic blood pressure 110 mm[Hg] Jordan Johnson MD Work Phone: [facility] 02-11-2023 16:54-0400 Diastolic blood pressure 66 mm[Hg] Jordan Johnson MD Work Phone: [facility] 02-11-2023 16:54-0400 Systolic blood pressure 108 mm[Hg] Jordan Johnson MD Work Phone: [facility] 02-11-2023 16:09-0400 Body temperature 98.6 [degF] Jordan Johnson MD Work Phone: [facility] 02-11-2023 16:09-0400 Body weight 76.39 kg Jordan Johnson MD Work Phone: [facility] 02-11-2023 16:09-0400 Heart rate 58 /min Jordan Johnson MD Work Phone: [facility] 02-11-2023 16:09-0400 Respiratory rate 22 /min Jordan Johnson MD Work Phone: [facility] 02-11-2023 16:09-0400 SaO2% (BldA) [Mass fraction] 96 % Jordan Johnson MD Work Phone: [facility] 02-06-2023 14:40-0400 Body temperature 98.7 [degF] Dr. Jaime Johnson Work Phone: [facility] 02-06-2023 14:40-0400 Diastolic blood pressure 54 mm[Hg] Dr. Jaime Johnson Work Phone: [facility] 02-06-2023 14:40-0400 Heart rate 62 /min Dr. Jaime Johnson Work Phone: [facility] 02-06-2023 14:40-0400 Respiratory rate 18 /min Dr. Jaime Johnson Work Phone: [facility] 02-06-2023 14:40-0400 SaO2% (BldA) [Mass fraction] 100 % Dr. Jaime Johnson Work Phone: [facility] 02-06-2023 14:40-0400 Systolic blood pressure 133 mm[Hg] Dr. Jaime Johnson Work Phone: 3(611)792-263395 [place] [address] 02-04-2023 22:26-0400 Body mass index (BMI) [Ratio] 27.6 kg/m2 Dr. Jaime Johnson Work Phone: 8(239)651-517104 [place] [address] 02-04-2023 22:26-0400 Body weight 75.[address] Jaime Johnson Work Phone: 3(377)831-748995 [place] [address] 02-04-2023 15:40-0400 Body temperature 98.2 [degF] Jordan Johnson MD Work Phone: [facility] 02-04-2023 15:40-0400 Body weight 74.84 kg Jordan Johnson MD Work Phone: 7(320)436-362592 [place] [address] 02-04-2023 15:40-0400 Diastolic blood pressure 48 mm[Hg] Jordan Johnson MD Work Phone: [facility] 02-04-2023 15:40-0400 Heart rate 42 /min Jordan Johnson MD Work Phone: [facility] 02-04-2023 15:40-0400 Respiratory rate 28 /min Jordan Johnson MD Work Phone: [facility] 02-04-2023 15:40-0400 SaO2% (BldA) [Mass fraction] 92 % Jordan Johnson MD Work Phone: [facility] 02-04-2023 15:40-0400 Systolic blood pressure 82 mm[Hg] Jordan Johnson MD Work Phone: [facility] 02-02-2023 15:14-0400 Body temperature 98 [degF] Dr. Jaime Johnson Work Phone: 0(091)392-756604 [place] [address] 02-02-2023 15:14-0400 Diastolic blood pressure 54 mm[Hg] Dr. Jaime Johnson Work Phone: 2(166)653-059695 [place] [address] 02-02-2023 15:14-0400 Heart rate 54 /min Dr. Jaime Johnson Work Phone: 5(582)290-823095 [place] [address] 02-02-2023 15:14-0400 Respiratory rate 18 /min Dr. Jaime Johnson Work Phone: 2(121)838-365495 [place] [address] 02-02-2023 15:14-0400 SaO2% (BldA) [Mass fraction] 98 % Dr. Jaime Johnson Work Phone: 6(745)502-821095 [place] [address] 02-02-2023 15:14-0400 Systolic blood pressure 100 mm[Hg] Dr. Jaime Johnson Work Phone: 0(801)997-637595 [place] [address] 02-02-2023 09:38-0400 Body temperature 98.1 [degF] Dr. Jaime Johnson Work Phone: 1(519)250-578795 [place] [address] 02-02-2023 09:38-0400 Diastolic blood pressure 65 mm[Hg] Dr. Jaime Johnson Work Phone: 4(543)830-980095 [place] [address] 02-02-2023 09:38-0400 Heart rate 63 /min Dr. Jaime Johnson Work Phone: 0(318)365-317904 [place] [address] 02-02-2023 09:38-0400 Respiratory rate 18 /min Dr. Jaime Johnson Work Phone: 4(778)231-588904 [place] [address] 02-02-2023 09:38-0400 SaO2% (BldA) [Mass fraction] 100 % Dr. Jaime Johnson Work Phone: 5(302)739-670895 [place] [address] 02-02-2023 09:38-0400 Systolic blood pressure 135 mm[Hg] Dr. Jaime Johnson Work Phone: 2(694)528-184395 [place] [address] 02-02-2023 04:57-0400 Body mass index (BMI) [Ratio] 27.1 kg/m2 Dr. Jaime Johnson Work Phone: 6(124)371-158995 [place] [address] 02-02-2023 04:57-0400 Body weight 78.[address] Jaime Johnson Work Phone: 5(235)885-466995 [place] [address] 02-01-2023 16:06-0400 Body height [address] Jaime Johnson Work Phone: 5(952)313-413695 [place] [address] 01-29-2023 22:27-0400 Body temperature 97 [degF] Dr. Jaime Johnson Work Phone: 6(115)243-669195 [place] [address] 01-29-2023 22:27-0400 Diastolic blood pressure 55 mm[Hg] Dr. Jaime Johnson Work Phone: 4(109)133-801495 [place] [address] 01-29-2023 22:27-0400 Heart rate 78 /min Dr. Jaime Johnson Work Phone: 2(047)851-700495 [place] [address] 01-29-2023 22:27-0400 Respiratory rate 16 /min Dr. Jaime Johnson Work Phone: 6(896)877-580695 [place] [address] 01-29-2023 22:27-0400 SaO2% (BldA) [Mass fraction] 98 % Dr. Jaime Johnson Work Phone: 2(727)370-035495 [place] [address] 01-29-2023 22:27-0400 Systolic blood pressure 124 mm[Hg] Dr. Jaime Johnson Work Phone: 8(494)367-737595 [place] [address] 01-29-2023 19:15-0400 Body height 170.[address] Jaime Johnson Work Phone: 7(079)912-027295 [place] [address] 01-29-2023 19:15-0400 Body mass index (BMI) [Ratio] 27 kg/m2 Dr. Jaime Johnson Work Phone: 7(026)241-049295 [place] [address] 01-29-2023 19:15-0400 Body weight 78.[address] Jaime Johnson Work Phone: 6(679)614-738395 [place] [address] 01-29-2023 13:11-0400 Diastolic blood pressure 64 mm[Hg] Fabby Podlogar INTEGRATED CIRCUIT DESIGN ENGINEER.TRIMMING CUTTER MACHINE Work Phone: [facility] 01-29-2023 13:11-0400 Heart rate 52 /min Fabby Podlogar INTEGRATED CIRCUIT DESIGN ENGINEER.TRIMMING CUTTER MACHINE Work Phone: [facility] 01-29-2023 13:11-0400 Respiratory rate 20 /min Fabby Podlogar INTEGRATED CIRCUIT DESIGN ENGINEER.TRIMMING CUTTER MACHINE Work Phone: [facility] 01-29-2023 13:11-0400 SaO2% (BldA) [Mass fraction] 99 % Fabby Podlogar INTEGRATED CIRCUIT DESIGN ENGINEER.TRIMMING CUTTER MACHINE Work Phone: [facility] 01-29-2023 13:11-0400 Systolic blood pressure 100 mm[Hg] Fabby Podlogar INTEGRATED CIRCUIT DESIGN ENGINEER.TRIMMING CUTTER MACHINE Work Phone: [facility] 01-12-2023 13:44-0400 Body temperature 97.9 [degF] Dr. Jaime Johnson Work Phone: [facility] 01-12-2023 13:44-0400 Diastolic blood pressure 57 mm[Hg] Dr. Jaime Johnson Work Phone: 1(421)831-028304 [place] [address] 01-12-2023 13:44-0400 Heart rate 60 /min Dr. Jaime Johnson Work Phone: 2(640)842-461204 [place] [address] 01-12-2023 13:44-0400 Respiratory rate 18 /min Dr. Jaime Johnson Work Phone: [facility] 01-12-2023 13:44-0400 SaO2% (BldA) [Mass fraction] 96 % Dr. Jaime Johnson Work Phone: 7(682)340-335404 [place] [address] 01-12-2023 13:44-0400 Systolic blood pressure 138 mm[Hg] Dr. Jaime Johnson Work Phone: 7(283)807-944504 [place] [address] 01-12-2023 05:33-0400 Body mass index (BMI) [Ratio] 28.1 kg/m2 Dr. Jaime Johnson Work Phone: 8(776)782-169495 [place] [address] 01-12-2023 05:33-0400 Body weight 76.[address] Jaime Johnson Work Phone: 5(139)302-993495 [place] [address] 01-08-2023 11:53-0400 Body height 165.[address] Jaime Johnson Work Phone: 7(365)125-615795 [place] [address] 12-31-2022 10:07-0400 Body temperature 98.8 [degF] Dr. Jaime Johnson Work Phone: 6(137)292-404795 [place] [address] 12-31-2022 10:07-0400 Diastolic blood pressure 77 mm[Hg] Dr. Jaime Johnson Work Phone: 9(418)325-170695 [place] [address] 12-31-2022 10:07-0400 Heart rate 112 /min Dr. Jaime Johnson Work Phone: 1(696)427-342295 [place] [address] 12-31-2022 10:07-0400 Respiratory rate 16 /min Dr. Jaime Johnson Work Phone: 1(444)557-019795 [place] [address] 12-31-2022 10:07-0400 SaO2% (BldA) [Mass fraction] 95 % Dr. Jaime Johnson Work Phone: 3(137)224-660995 [place] [address] 12-31-2022 10:07-0400 Systolic blood pressure 122 mm[Hg] Dr. Jaime Johnson Work Phone: 8(744)704-340395 [place] [address] 12-31-2022 05:56-0400 Body mass index (BMI) [Ratio] 25.3 kg/m2 Dr. Jaime Johnson Work Phone: 1(981)987-715495 [place] [address] 12-31-2022 05:56-0400 Body weight 75.[address] Jaime Johnson Work Phone: 3(783)799-671795 [place] [address] 12-24-2022 15:49-0400 Heart rate 104 /min [facility] 12-24-2022 15:49-0400 Respiratory rate 20 /min [facility] 12-24-2022 15:49-0400 SaO2% (BldA) [Mass fraction] 97 % [facility] 12-24-2022 14:08-0400 Body mass index (BMI) [Ratio] 26.6 kg/m2 [facility] 12-24-2022 14:[id number] Body weight 79.37 kg [facility] 12-24-2022 13:280400 Body height 172.72 cm [facility] 12-24-2022 13:28-0400 Body temperature 98 [degF] [facility] 12-24-2022 13:28-0400 Diastolic blood pressure 69 mm[Hg] [facility] 12-24-2022 13:28-0400 Systolic blood pressure 114 mm[Hg] [facility] 12-24-2022 12:42-0400 Body temperature 98.4 [degF] Caridad Athy PA-C Work Phone: [facility] 12-24-2022 12:42-0400 Diastolic blood pressure 92 mm[Hg] Caridad Athy PA-C Work Phone: [facility] 12-24-2022 12:42-0400 Heart rate 108 /min Caridad Athy PA-C Work Phone: [facility] 12-24-2022 12:42-0400 Respiratory rate 18 /min Caridad Athy PA-C Work Phone: [facility] 12-24-2022 12:42-0400 SaO2% (BldA) [Mass fraction] 96 % Caridad Athy PA-C Work Phone: [facility] 12-24-2022 12:42-0400 Systolic blood pressure 148 mm[Hg] Caridad Athy PA-C Work Phone: [facility] 10-01-2022 15:49-0400 Diastolic blood pressure 56 mm[Hg] Jordan Johnson MD Work Phone: [facility] 10-01-2022 15:49-0400 Heart rate 63 /min Jordan Johnson MD Work Phone: [facility] 10-01-2022 15:49-0400 Respiratory rate 16 /min Jordan Johnson MD Work Phone: [facility] 10-01-2022 15:49-0400 SaO2% (BldA) [Mass fraction] 97 % Jordan Johnson MD Work Phone: [facility] 10-01-2022 15:49-0400 Systolic blood pressure 110 mm[Hg] Jordan Johnson MD Work Phone: [facility] 09-30-2022 17:31-0400 Body temperature 98.4 [degF] Selene Murtaza INTEGRATED CIRCUIT DESIGN ENGINEER.TRIMMING CUTTER MACHINE Work Phone: [facility] 09-30-2022 17:31-0400 Body weight 76.57 kg Selene Murtaza INTEGRATED CIRCUIT DESIGN ENGINEER.TRIMMING CUTTER MACHINE Work Phone: [facility] 09-30-2022 17:31-0400 Heart rate 62 /min Selene Murtaza INTEGRATED CIRCUIT DESIGN ENGINEER.TRIMMING CUTTER MACHINE Work Phone: [facility] 09-30-2022 17:31-0400 Respiratory rate 21 /min Selene Murtaza INTEGRATED CIRCUIT DESIGN ENGINEER.TRIMMING CUTTER MACHINE Work Phone: [facility] 09-30-2022 17:31-0400 SaO2% (BldA) [Mass fraction] 98 % Selene Murtaza INTEGRATED CIRCUIT DESIGN ENGINEER.TRIMMING CUTTER MACHINE Work Phone: [facility] 08-06-2022 16:22-0500 Body temperature 97 [degF] Jacob David INTEGRATED CIRCUIT DESIGN ENGINEER.TRIMMING CUTTER MACHINE Work Phone: [facility] 08-06-2022 16:22-0500 Body weight 81.83 kg Jacob Hernandez INTEGRATED CIRCUIT DESIGN ENGINEER.TRIMMING CUTTER MACHINE Work Phone: [facility] 08-06-2022 16:22-0500 Diastolic blood pressure 48 mm[Hg] Jacob David INTEGRATED CIRCUIT DESIGN ENGINEER.TRIMMING CUTTER MACHINE Work Phone: [facility] 08-06-2022 16:22-0500 Heart rate 67 /min Jacob David INTEGRATED CIRCUIT DESIGN ENGINEER.TRIMMING CUTTER MACHINE Work Phone: [facility] 08-06-2022 16:22-0500 Respiratory rate 21 /min Jacob David INTEGRATED CIRCUIT DESIGN ENGINEER.TRIMMING CUTTER MACHINE Work Phone: [facility] 08-06-2022 16:22-0500 SaO2% (BldA) [Mass fraction] 95 % Jacob Hernandez INTEGRATED CIRCUIT DESIGN ENGINEER.TRIMMING CUTTER MACHINE Work Phone: [facility] 08-06-2022 16:22-0500 Systolic blood pressure 100 mm[Hg] Jacob Hernandez INTEGRATED CIRCUIT DESIGN ENGINEER.TRIMMING CUTTER MACHINE Work Phone: [facility] 07-14-2022 13:13-0500 Body weight 77.93 kg Fabby Podlogar INTEGRATED CIRCUIT DESIGN ENGINEER.TRIMMING CUTTER MACHINE Work Phone: [facility] 07-14-2022 13:13-0500 Diastolic blood pressure 62 mm[Hg] Fabby Podlogar INTEGRATED CIRCUIT DESIGN ENGINEER.TRIMMING CUTTER MACHINE Work Phone: [facility] 07-14-2022 13:13-0500 Heart rate 80 /min Fabby Podlogar INTEGRATED CIRCUIT DESIGN ENGINEER.TRIMMING CUTTER MACHINE Work Phone: [facility] 07-14-2022 13:13-0500 Respiratory rate 16 /min Fabby Podlogar INTEGRATED CIRCUIT DESIGN ENGINEER.TRIMMING CUTTER MACHINE Work Phone: [facility] 07-14-2022 13:13-0500 SaO2% (BldA) [Mass fraction] 94 % Fabby Podlogar INTEGRATED CIRCUIT DESIGN ENGINEER.TRIMMING CUTTER MACHINE Work Phone: [facility] 07-14-2022 13:13-0500 Systolic blood pressure 122 mm[Hg] Fabby Podlogar INTEGRATED CIRCUIT DESIGN ENGINEER.TRIMMING CUTTER MACHINE Work Phone: [facility] 06-15-2022 13:58-0500 Body weight 78.11 kg Jordan Johnson MD Work Phone: [facility] 06-15-2022 13:58-0500 Diastolic blood pressure 60 mm[Hg] Jordan Johnson MD Work Phone: [facility] 06-15-2022 13:58-0500 Heart rate 64 /min Jordan Johnson MD Work Phone: [facility] 06-15-2022 13:58-0500 Respiratory rate 16 /min Jordan Johnson MD Work Phone: [facility] 06-15-2022 13:58-0500 SaO2% (BldA) [Mass fraction] 98 % Jordan Johnson MD Work Phone: [facility] 06-15-2022 13:58-0500 Systolic blood pressure 130 mm[Hg] Jordan Johnson MD Work Phone: [facility] 06-11-2022 14:02-0500 Body weight 80.56 kg Fabby Podlogar INTEGRATED CIRCUIT DESIGN ENGINEER.TRIMMING CUTTER MACHINE Work Phone: [facility] 06-11-2022 14:02-0500 Diastolic blood pressure 76 mm[Hg] Fabby Podlogar INTEGRATED CIRCUIT DESIGN ENGINEER.TRIMMING CUTTER MACHINE Work Phone: [facility] 06-11-2022 14:02-0500 Heart rate 62 /min Fabby Podlogar INTEGRATED CIRCUIT DESIGN ENGINEER.TRIMMING CUTTER MACHINE Work Phone: [facility] 06-11-2022 14:02-0500 Respiratory rate 16 /min Fabby Podlogar INTEGRATED CIRCUIT DESIGN ENGINEER.TRIMMING CUTTER MACHINE Work Phone: [facility] 06-11-2022 14:02-0500 SaO2% (BldA) [Mass fraction] 98 % Fabby Podlogar INTEGRATED CIRCUIT DESIGN ENGINEER.TRIMMING CUTTER MACHINE Work Phone: [facility] 06-11-2022 14:02-0500 Systolic blood pressure 136 mm[Hg] Fabby Podlogar INTEGRATED CIRCUIT DESIGN ENGINEER.TRIMMING CUTTER MACHINE Work Phone: [facility] 05-06-2022 15:13-0500 Diastolic blood pressure 73 mm[Hg] Fabby Podlogar INTEGRATED CIRCUIT DESIGN ENGINEER.TRIMMING CUTTER MACHINE Work Phone: [facility] 05-06-2022 15:13-0500 Heart rate 66 /min Fabby Podlogar INTEGRATED CIRCUIT DESIGN ENGINEER.TRIMMING CUTTER MACHINE Work Phone: [facility] 05-06-2022 15:13-0500 Systolic blood pressure 139 mm[Hg] Fabby Podlogar INTEGRATED CIRCUIT DESIGN ENGINEER.TRIMMING CUTTER MACHINE Work Phone: [facility] 05-06-2022 14:37-0500 Body weight 80.74 kg Fabby Podlogar INTEGRATED CIRCUIT DESIGN ENGINEER.TRIMMING CUTTER MACHINE Work Phone: [facility] 05-06-2022 14:37-0500 Respiratory rate 18 /min Fabby Podlogar INTEGRATED CIRCUIT DESIGN ENGINEER.TRIMMING CUTTER MACHINE Work Phone: [facility] 05-06-2022 14:37-0500 SaO2% (BldA) [Mass fraction] 97 % Fabby Podlogar INTEGRATED CIRCUIT DESIGN ENGINEER.TRIMMING CUTTER MACHINE Work Phone: [facility] 04-15-2022 14:32-0500 Body weight 84.55 kg Jordan Johnson MD Work Phone: [facility] 04-15-2022 14:32-0500 Diastolic blood pressure 104 mm[Hg] Jordan Johnson MD Work Phone: [facility] 04-15-2022 14:32-0500 Heart rate 54 /min Jordan Johnson MD Work Phone: [facility] 04-15-2022 14:32-0500 Respiratory rate 22 /min Jordan Johnson MD Work Phone: [facility] 04-15-2022 14:32-0500 SaO2% (BldA) [Mass fraction] 98 % Jordan Johnson MD Work Phone: [facility] 04-15-2022 14:32-0500 Systolic blood pressure 162 mm[Hg] Jordan Johnson MD Work Phone: [facility] 02-03-2022 15:35-0400 Body weight 80.2 kg Jordan Johnson MD Work Phone: [facility] 02-03-2022 15:35-0400 Diastolic blood pressure 68 mm[Hg] Jordan Johnson MD Work Phone: [facility] 02-03-2022 15:35-0400 Heart rate 58 /min Jordan Johnson MD Work Phone: [facility] 02-03-2022 15:35-0400 Respiratory rate 18 /min Jordan Johnson MD Work Phone: [facility] 02-03-2022 15:35-0400 SaO2% (BldA) [Mass fraction] 98 % Jordan Johnson MD Work Phone: [facility] 02-03-2022 15:35-0400 Systolic blood pressure 110 mm[Hg] Jordan Johnson MD Work Phone: [facility] 02-02-2022 17:48-0400 Body temperature 97.5 [degF] [facility] Work Phone: 02-02-2022 17:48-0400 Diastolic blood pressure 64 mm[Hg] [facility] Work Phone: 02-02-2022 17:48-0400 Heart rate 57 /min [facility] Work Phone: 02-02-2022 17:48-0400 Respiratory rate 16 /min [facility] Work Phone: 02-02-2022 17:48-0400 SaO2% (BldA) [Mass fraction] 99 % [facility] Work Phone: 02-02-2022 17:48-0400 Systolic blood pressure 154 mm[Hg] [facility] Work Phone: 02-02-2022 15:05-0400 Body height 172.72 cm [facility] Work Phone: 02-02-2022 15:05-0400 Body mass index (BMI) [Ratio] 27.3 kg/m2 [facility] Work Phone: 02-02-2022 15:05-0400 Body weight 81.64 kg [facility] Work Phone: 12-12-2021 13:32-0400 Body weight 81.83 kg Fabby Moore APRN.CNP Work Phone: [facility] 12-12-2021 13:32-0400 Diastolic blood pressure 66 mm[Hg] Fabby Moore APRN.CNP Work Phone: [facility] 12-12-2021 13:32-0400 Heart rate 66 /min Fabby Podlogar INTEGRATED CIRCUIT DESIGN ENGINEER.TRIMMING CUTTER MACHINE Work Phone: [facility] 12-12-2021 13:32-0400 Respiratory rate 20 /min Fabby Podlogar INTEGRATED CIRCUIT DESIGN ENGINEER.TRIMMING CUTTER MACHINE Work Phone: [facility] 12-12-2021 13:32-0400 SaO2% (BldA) [Mass fraction] 96 % Fabby Podlogar INTEGRATED CIRCUIT DESIGN ENGINEER.TRIMMING CUTTER MACHINE Work Phone: [facility] 12-12-2021 13:32-0400 Systolic blood pressure 128 mm[Hg] Fabby Podlogar INTEGRATED CIRCUIT DESIGN ENGINEER.TRIMMING CUTTER MACHINE Work Phone: [facility] Encounters Encounter Date Encounter Type Care Provider Facility Start: 11-09-2024 End: 11-10-2024 Get Medical Advice Fabby Podlogar INTEGRATED CIRCUIT DESIGN ENGINEER.TRIMMING CUTTER MACHINE Work Phone: [facility] [place] Comment on above: Miralax and Replenex supplements order Start: 11-06-2024 End: 11-06-2024 Follow-up encounter Isidra De Paz MA [facility] Comment on above: Results Start: 11-03-2024 End: 11-03-2024 ambulatory [facility] [place] Start: 11-03-2024 End: 11-03-2024 Patient encounter procedure Reinaldo [facility] [place] Comment on above: Population Health Na vigation Outreach (AWV- DASHBOARD- HUMANA) Start: 11-01-2024 End: 11-01-2024 Patient encounter procedure Fabby Podlogar INTEGRATED CIRCUIT DESIGN ENGINEER.TRIMMING CUTTER MACHINE Work Phone: [facility] [place] Comment on above: Essential hypertensi on (Primary Dx); Benign prostatic hyperplasia with nocturia; Depression, unspecified depression type; Stage 3a chronic kidney disease (HCC) Start: 11-01-2024 End: 11-01-2024 ambulatory FABBY PODLOGAR Facility:[facility] Start: 05-08-2024 End: 05-08-2024 Telephone encounter Jordan Johnson MD Work Phone: [facility] [place] Comment on above: Results Start: 05-02-2024 End: 05-02-2024 Patient encounter procedure Jordan Johnson MD Work Phone: [facility] Comment on above: Essential hypertensi on (Primary Dx); Benign prostatic hyperplasia with nocturia; 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); Stage 3a chronic kidney disease (HCC); Senile dementia (HCC); Gastroesophageal reflux disease, unspecified whether esophagitis present Start: 05-02-2024 End: 05-02-2024 ambulatory JORDAN JOHNSON Facility:[facility] Start: 04-17-2024 End: 04-19-2024 Telephone encounter Jordan Johnson MD Work Phone: [facility] Comment on above: Orders Start: 04-12-2024 End: 04-13-2024 Telephone encounter Jordan Johnson MD Work Phone: [facility] Comment on above: Patient Question Start: 04-11-2024 End: 04-11-2024 Emergency department patient visit Kev Vargas Facility:[facility] Start: 04-11-2024 End: 04-13-2024 Telephone encounter Jordan Johnson MD Work Phone: [facility] Comment on above: Patient Update Start: 02-22-2024 End: 02-22-2024 ambulatory Nathaly Spivey RN Work Phone: [employer] Comment on above: cdm (Check in call/) Start: 01-24-2024 End: 01-24-2024 ambulatory Aparna Vo RN Work Phone: [facility] Start: 01-24-2024 End: 01-24-2024 Follow-up encounter Aparna Vo RN Work Phone: [employer] Comment on above: Community Monitoring Outreach (Follow up) Start: 01-20-2024 ambulatory Nathaly Spivey RN Work Phone: [employer] Comment on above: cdm (Check in call/) Start: 12-17-2023 ambulatory Nathaly Spivey RN Work Phone: [employer] Comment on above: cdm (Check in call/) Start: 11-18-2023 ambulatory Nathaly Spivey RN Work Phone: [employer] Comment on above: cdm (Check in call/) Start: 11-02-2023 ambulatory Nathaly Spivey RN Work Phone: [facility] Comment on above: cdm (Check in call/) Start: 10-29-2023 Telephone encounter Jaime Johnson MD Work Phone: [facility] [place] Start: 10-25-2023 End: 10-25-2023 Patient encounter procedure Fabby Moore APRN.TRIMMING CUTTER MACHINE Work Phone: [facility] Comment on above: Essential hypertensi on (Primary Dx); Senile dementia (HCC); Depression, unspecified depression type; Benign prostatic hyperplasia with nocturia; Gastroesophageal reflux disease, unspecified whether esophagitis present Start: 09-27-2023 ambulatory Nathaly Spivey RN Work Phone: [employer] Comment on above: cdm (Check in call/) Start: 08-30-2023 ambulatory Nathaly Spivey RN Work Phone: [employer] Comment on above: cdm (Check in call/) Start: 08-23-2023 Telephone encounter Jaime Johnson MD Work Phone: [facility] Comment on above: Orders Start: 08-19-2023 ambulatory Aden Friend Facility :[facility] Start: 07-30-2023 ambulatory Nathaly Spivey RN Work Phone: [employer] Comment on above: cdm (Check in call/) Start: 07-19-2023 Telephone encounter Jaime Johnson MD Work Phone: [facility] [place] Start: 07-05-2023 End: 07-05-2023 Patient encounter procedure Jordan Johnson MD Work Phone: [facility] Comment on above: Acute left-sided low back pain without sciatica (Primary Dx); At high risk for falls; 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); Grief reaction; Senile dementia (HCC); Stage 3a chronic kidney disease (HCC) Start: 05-21-2023 End: 05-21-2023 Emergency department patient visit Jaime Johnson Facility:[facility] Start: 05-19-2023 Telephone encounter Fabby jones APRN.CNP Work Phone: [facility] Start: 05-06-2023 ambulatory Nathaly Spivey RN Work Phone: [employer] [facility] Comment on above: cdm (Check in call/) Start: 04-19-2023 ambulatory Nathaly Spivey RN Work Phone: [facility] Comment on above: cdm (Check in call/) Start: 04-12-2023 Telephone encounter Jaime Johnson MD Work Phone: [facility] Comment on above: Medication Problem Start: 04-01-2023 End: 04-01-2023 Patient encounter procedure Jordan Johnson MD Work Phone: [facility] Comment on above: 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) (Primary Dx); Grief reaction; Senile dementia (HCC); Stage 3a chronic kidney disease (HCC); Chronic insomnia; Primary osteoarthritis, unspecified site Start: 03-28-2023 ambulatory Sindy Denise RN NURS E DIRECTIONAL BORE OPERATOR Comment on above: Anxiety Start: 03-18-2023 ambulatory Deirdre Rivas RN Work Phone: [employer] Comment on above: community monitoring outreach (CDM outreach) Start: 03-04-2023 ambulatory Glenna LIM [place] Start: 03-04-2023 Follow-up encounter Glenna Martinez RN [facility] Comment on above: CDM (Escalation foll ow up) Start: 03-03-2023 ambulatory Glenna Martinez RN [facility] Comment on above: CDM (Telephonic Outr each) Start: 02-11-2023 End: 02-11-2023 Patient encounter procedure Jordan Johnson MD Work Phone: [facility] Comment on above: Acute cystitis witho ut hematuria (Primary Dx); Other specified hypotension; Bradycardia; AV block, Mobitz 1; Senile dementia (HCC); Acute gastric ulcer without hemorrhage or perforation; Iron deficiency anemia, unspecified iron deficiency anemia type; Decreased appetite; Depression, unspecified depression type; Hospital discharge follow-up Start: 02-10-2023 Telephone encounter Jaime Johnson MD Work Phone: [facility] Comment on above: Appointment Start: 02-09-2023 [facility] above: [facility] Of Care ( Discharged from [facility] 02/06/23) Start: 02-09-2023 Non-patient / Non-visit Dr. Shayna Johnson Work Phone: [facility] Work Phone: Start: 02-06-2023 Non-patient / Non-visit Dr. Shayna Johnson Work Phone: [facility] Work Phone: Start: 02-05-2023 Non-patient / Non-visit Dr. Shayna Johnson Work Phone: [facility] Work Phone: Start: 02-04-2023 End: 02-06-2023 Evaluation and management of inpatient Dr. Jaime Johnson Work Phone: [facility] Work Phone: Start: 02-04-2023 End: 02-04-2023 Patient encounter procedure Jordan Johnson MD Work Phone: [facility] Comment on above: Sepsis, due to unspe cified organism, unspecified whether acute organ dysfunction present (HCC) (Primary Dx); Acute cystitis without hematuria; Urinary frequency; Bradycardia; Other specified hypotension; AV block, Mobitz 1 Start: 02-03-2023 ambulatory Janel rankin RN Work Phone: [employer] Comment on above: Community Monitoring Outreach (Enrollment CDM ) Start: 02-02-2023 Non-patient / Non-visit Dr. Shayna Johnson Work Phone: [facility] Start: 02-01-2023 Non-patient / Non-visit Dr. Shayna Johnson Work Phone: [facility] Start: 02-01-2023 Non-patient / Non-visit Dr. Shayna Johnson Work Phone: [facility] Work Phone: Start: 01-31-2023 Non-patient / Non-visit Dr. Shayna Johnson Work Phone: [facility] Start: 01-31-2023 Non-patient / Non-visit Dr. Shayna Johnson Work Phone: [facility] Work Phone: Start: 01-30-2023 Non-patient / Non-visit Dr. Shayna Johnson Work Phone: [facility] Start: 01-29-2023 Non-patient / Non-visit Dr. Shayna Johnson Work Phone: [facility] Work Phone: Start: 01-29-2023 End: 02-02-2023 Evaluation and management of inpatient [facility] Work Phone: Start: 01-29-2023 End: 01-29-2023 Subsequent hospital visit by physician [facility] Work Phone: Radiology Comment on above: Nausea [R11.0] Start: 01-29-2023 End: 01-29-2023 Patient encounter procedure Fabby Moore INTEGRATED CIRCUIT DESIGN ENGINEER.TRIMMING CUTTER MACHINE Work Phone: [facility] [place] Comment on above: Nausea (Primary Dx); Bradycardia; Decreased appetite Start: 01-25-2023 Telephone encounter Jaime Johnson MD Work Phone: [facility] Comment on above: Medication Review Start: 01-20-2023 Telephone encounter Jaime Johnson MD Work Phone: [facility] Comment on above: Fill out Nursing Ned e POC Forms Start: 01-13-2023 End: 01-13-[address] Jaime Johnson Work Phone: [facility] Work Phone: Start: 01-13-2023 End: 01-13-[address] Jaime Johnson Work Phone: [facility] Start: 01-13-[address] Lowell Johnson Work Phone: [facility] Start: 01-11-2023 Non-patient / Non-visit Dr. Shayna Johnson Work Phone: [facility] Work Phone: Start: 01-09-2023 End: 01-09-2023 Non-patient / Non-visit Dr. Jaime Johnson Work Phone: [facility] Work Phone: Start: 01-07-2023 End: 01-07-2023 Non-patient / Non-visit Dr. Jaime Johnson Work Phone: [facility] Work Phone: Start: 01-06-2023 Non-patient / Non-visit Dr. Shayna Johnson Work Phone: [facility] Work Phone: Start: 01-05-2023 Non-patient / Non-visit Dr. Shayna Johnson Work Phone: [facility] Work Phone: Start: 01-04-2023 Telephone encounter Jaime Johnson MD Work Phone: [facility] Comment on above: Handicap Placard Start: 01-04-2023 Non-patient / Non-visit Dr. Shayna Johnson Work Phone: [facility] Work Phone: Start: 01-03-2023 End: 01-03-2023 Non-patient / Non-visit Dr. Jaime Johnson Work Phone: [facility] Work Phone: Start: 12-31-2022 End: 12-31-2022 Home visit Tg Osuna RN Work Phone: [facility] Comment on above: SN UNMADE VISIT Start: 12-31-2022 Telephone encounter Jaime Johnson MD Work Phone: [facility] Comment on above: Hospital Follow Up Start: 12-31-2022 End: 01-12-2023 Evaluation and management of inpatient Dr. Jaime Johnson Work Phone: [facility] Work Phone: Start: 12-31-2022 Non-patient / Non-visit Dr. Shayna Johnson Work Phone: [facility] Work Phone: Start: 12-30-2022 Non-patient / Non-visit Dr. Shayna Johnson Work Phone: [facility] Work Phone: Start: 12-29-2022 End: 12-29-2022 Non-patient / Non-visit Dr. Jaime Johnson Work Phone: [facility] Work Phone: Start: 12-29-2022 Non-patient / Non-visit Dr. Shayna Johnson Work Phone: [facility] Work Phone: Start: 12-29-2022 Patient Outreach Belia Cohen [facility] Work Phone: Pharmacy Comment on above: Transition Of Care ( [facility] Pharmacy-Hospital discharge 12/28/22) Start: 12-28-2022 End: 12-31-2022 Evaluation and management of inpatient Dr. Jaime Johnson Work Phone: [facility] Care Unit Work Phone: Start: 12-28-2022 Non-patient / Non-visit Dr. Shayna Johnson Work Phone: [facility] Work Phone: Start: 12-27-2022 Telephone encounter Chinyere rios LPN Work Phone: [facility] Comment on above: Home Care (MD ana hoover) Start: 12-24-2022 End: 12-28-2022 Evaluation and management of inpatient FIRBISI FRANCE Facility:[facility] Start: 12-24-2022 ambulatory Jordan Johnson MD Work Phone: [facility] Comment on above: Fall Start: 12-24-2022 End: 12-24-2022 Emergency department patient visit [facility] Work Phone: Start: 12-24-2022 End: 12-24-2022 Patient encounter procedure Caridad Castaneda PA-C Work Phone: [facility] Comment on above: Sternal pain (Primar y Dx); Left-sided chest pain Start: 12-18-2022 Telephone encounter Fabby jones APRN.TRIMMING CUTTER MACHINE Work Phone: [facility] Comment on above: Results Start: 11-25-2022 Refill Julia kay APRN.CNP Work Phone: [facility] Comment on above: Refill Request Start: 11-08-2022 Refill Jordan Johnson MD Work Phone: [facility] [place] Comment on above: Refill Request Start: 10-01-2022 End: 10-01-2022 Patient encounter procedure Jordan Johnson MD Work Phone: [facility] [place] Comment on above: Fall in home, subseq uent encounter (Primary Dx); Multiple skin tears; At high risk for falls; Age-related physical debility; Screening for osteoporosis; Encounter for screening for osteoporosis; Other nonthrombocytopenic purpura (HCC) Start: 09-30-2022 End: 09-30-2022 Subsequent hospital visit by physician [facility] [place] Work Phone: Radiology Comment on above: Pain in right upper arm [M79.621] Start: 09-30-2022 End: 09-30-2022 Patient encounter procedure Selene Hauser INTEGRATED CIRCUIT DESIGN ENGINEER.TRIMMING CUTTER MACHINE Work Phone: [facility] Comment on above: Pain in right upper arm (Primary Dx); Fall, initial encounter; Abrasion Start: 09-14-2022 Refill Jordan Johnson MD Work Phone: [facility] [place] Comment on above: Refill Request Start: 09-07-2022 Refill Fabby Podlogar INTEGRATED CIRCUIT DESIGN ENGINEER.TRIMMING CUTTER MACHINE Work Phone: [facility] [place] Comment on above: Refill Request Start: 08-06-2022 End: 08-06-2022 Patient encounter procedure Jacob Hernandez APRN.TRIMMING CUTTER MACHINE Work Phone: [facility] Comment on above: Bilateral impacted c erumen (Primary Dx) Start: 07-17-2022 Refill Fabby Podlogar INTEGRATED CIRCUIT DESIGN ENGINEER.TRIMMING CUTTER MACHINE Work Phone: [facility] [place] Comment on above: Refill Request Start: 07-14-2022 End: 07-14-2022 Patient encounter procedure Fabby Moore APRN.TRIMMING CUTTER MACHINE Work Phone: [facility] [place] Comment on above: Ecchymosis (Primary Dx) Start: 07-12-2022 Refill Fabby Podlogar INTEGRATED CIRCUIT DESIGN ENGINEER.TRIMMING CUTTER MACHINE [facility] Comment on above: Refill Request Start: 07-10-2022 End: 07-10-2022 ambulatory [facility] Work Phone: Start: 07-10-2022 End: 07-10-2022 Patient encounter procedure [facility] Start: 06-21-2022 Refill Jordan [facility] MD [facility] Comment on above: Refill Request Start: 06-16-2022 Telephone encounter Jaime Johnson MD [facility] Comment on above: Patient Question Start: 06-15-2022 End: 06-15-2022 Patient encounter procedure Jordan [facility] Comment on above: Essential hypertensi on (Primary Dx); Stage 3a chronic kidney disease (HCC); Hyponatremia; Iron deficiency anemia, unspecified iron deficiency anemia type; Gastroesophageal reflux disease, unspecified whether esophagitis present; Benign prostatic hyperplasia without lower urinary tract symptoms; High prostate specific antigen (PSA); Osteoarthritis, unspecified osteoarthritis type, unspecified site; Mild cognitive impairment Start: 06-11-2022 End: 06-11-2022 Patient encounter procedure Fabby Moore APRN.CNP [facility] Comment on above: Left shoulder pain, unspecified chronicity (Primary Dx) Start: 05-24-2022 Refill Fabby Moore APRN.CNP [facility] Comment on above: Refill Request Start: 05-21-2022 End: 05-21-2022 ambulatory [facility] Comment on above: Acute pain of left s houlder (Primary Dx) Start: 05-14-2022 Refill Jordan Johnson MD [facility] Comment on above: Refill Request Start: 05-08-2022 Telephone encounter Jaime Johnson MD [facility] Comment on above: BP Update Start: 05-06-2022 End: 05-06-2022 Patient encounter procedure Fabby Moore APRN.TRIMMING CUTTER MACHINE Work Phone: [facility] [place] Comment on above: Essential hypertensi on (Primary Dx); Acute pain of left shoulder Start: 04-27-2022 Telephone encounter Jaime Johnson MD Work Phone: [facility] [place] Comment on above: Results Start: 04-21-2022 Telephone encounter Jaime Johnson MD Work Phone: [facility] [place] Comment on above: ECHO results Start: 04-20-2022 Telephone encounter Jaime Johnson MD Work Phone: [facility] [place] Comment on above: Patient Question Start: 04-17-2022 Telephone encounter Jaime Johnson MD Work Phone: [facility] [place] Comment on above: Results; Appointment Patient Question Start: 04-15-2022 End: 04-15-2022 Patient encounter procedure Jordan Johnson MD Work Phone: [facility] [place] Comment on above: Bilateral lower extr emity edema (Primary Dx); Essential hypertension Start: 04-13-2022 Refill Jordan Johnson MD Work Phone: [facility] [place] Comment on above: Refill Request Start: 02-25-2022 Refill Jordan Johnson MD Work Phone: [facility] [place] Comment on above: Refill Request Start: 02-10-2022 Telephone encounter Jaime Johnson MD Work Phone: [facility] [place] Comment on above: Patient Request; Pat ient Update Start: 02-06-2022 Telephone encounter Fabby jones INTEGRATED CIRCUIT DESIGN ENGINEER.TRIMMING CUTTER MACHINE Work Phone: [facility] [place] Comment on above: Results Start: 02-03-2022 End: 02-03-2022 Patient encounter procedure Jordan Johnson MD Work Phone: [facility] [place] Comment on above: Closed displaced fra cture of right clavicle, unspecified part of clavicle, initial encounter (Primary Dx); Acute pain of right shoulder; Abrasion of right knee, initial encounter; Fall in home, initial encounter Start: 02-02-2022 End: 02-02-2022 Emergency department patient visit [facility] Start: 02-01-2022 Refill Jordan Johnson MD Work Phone: [facility] [place] Comment on above: Refill Request Start: 01-23-2022 End: 01-23-2022 ambulatory [facility] Work Phone: Start: 01-23-2022 End: 01-23-2022 Patient encounter procedure [facility] Start: 12-24-2021 End: 12-24-2021 Subsequent hospital visit by physician [facility] Work Phone: Radiology Comment on above: Elevated alkaline ph osphatase level [R74.8] Start: 12-22-2021 Refill Jordan Johnson MD Work Phone: [facility] Comment on above: Refill Request Start: 12-19-2021 Telephone encounter Fabby jones APRN.TRIMMING CUTTER MACHINE Work Phone: [facility] [place] Comment on above: Results Start: 12-17-2021 Telephone encounter Fabby jones APRN.TRIMMING CUTTER MACHINE Work Phone: [facility] [place] Comment on above: Results Start: 12-12-2021 End: 12-12-2021 Patient encounter procedure Fabby Moore APRN.TRIMMING CUTTER MACHINE Work Phone: [facility] [place] Comment on above: Essential hypertensi on (Primary Dx); Iron deficiency anemia, unspecified iron deficiency anemia type; Stage 3a chronic kidney disease (HCC); Benign prostatic hyperplasia without lower urinary tract symptoms; RLS (restless legs syndrome) Start: 10-13-2021 Refill Fabby Moore APRN.TRIMMING CUTTER MACHINE Work Phone: [facility] [place] Comment on above: Refill Request Start: 08-29-2021 ambulatory Jordan Johnson MD Work Phone: [facility] Comment on above: Gabapentin Start: 08-20-2020 End: 08-20-2020 Subsequent hospital visit by physician [facility] [place] Work Phone: Radiology Comment on above: Fall, initial encoun ter [W19.XXXA] Procedures Date Procedure Procedure Detail Performing Clinician Start: 05-21-2023 CT of abdomen and pelvis without contrast Dr. Jaime Johnson Work Phone: Start: 02-04-2023 Plain chest X-ray Dr. Jaime Johnson Work Phone: Start: 02-04-2023 Urnls dip stick/tablet rgnt auto w/o microscopy Jordan Johnson MD Work Phone: Start: 02-04-[address] Jaime Johnson Work Phone: Start: 01-30-[address] Edouard Johnson Work Phone: Start: 01-29-2023 CT of abdomen and pelvis without contrast Dr. Jaime Johnson Work Phone: Start: 01-29-2023 Radiologic exam abdomen 1 view Fabby Pod logar INTEGRATED CIRCUIT DESIGN ENGINEER.TRIMMING CUTTER MACHINE Work Phone: Start: 01-29-2023 Measurement of occult blood in stool specimen using immunoassay Dr. Jaime Johnson Work Phone: Start: 01-07-2023 Plain chest X-ray Dr. Jaime Johnson Work Phone: Start: 12-30-2022 Plain x-ray of pelvis and lower extremity Dr. Jaime Johnson Work Phone: Start: 12-28-2022 Plain chest X-ray Dr. Jaime Johnson Work Phone: Start: 12-28-2022 Measurement of occult blood in stool specimen using immunoassay Dr. Jaime Johnson Work Phone: Start: 12-24-2022 CT cervical spine without contrast Start: 12-24-2022 CT of chest without contrast Start: 12-24-2022 CT of head without contrast Start: 04-26-2023 Radex humerus minimum 2 views Selene Krishnak INTEGRATED CIRCUIT DESIGN ENGINEER.E[employer] Work Phone: Start: 02-02-2022 Plain X-ray of clavicle Start: 02-02-2022 Plain X-ray of shoulder Start: 12-24-2021 Us abdominal real time w/image limited Jordan Johnson MD Work Phone: Start: 08-20-2020 Radiologic examination pelvis 1/2 views Khanh Jett APRN.TRIMMING CUTTER MACHINE Work Phone: Plan of Treatment Date Care Activity Detail Author Start: 09-30-2032 Urine microalbumin profile [facility] Start: 11-02-2027 Diabetes Screening [facility] Start: 05-02-2027 Diabetes Screening [facility] Start: 10-24-2026 [facility]: 04-01-2026 Diabetes Screening Diabetes Screenaz g [facility] Start: 01-29-2026 DIABETES SCREEN DIABETES SCREEN [facility] Start: 01-29-2026 Diabetes Screening Diabetes Screenin g [facility] Start: 12-28-2025 DIABETES SCREEN DIABETES SCREEN [facility] Start: 12-27-2025 DIABETES SCREEN DIABETES SCREEN [facility] Start: 12-16-2025 DIABETES SCREEN DIABETES SCREEN [facility] Start: 06-15-2025 DIABETES SCREEN DIABETES SCREEN [facility] Start: 05-08-2025 End: 05-08-2025 Patient encounter procedure 05/08/2025 2:20 PM EST Office Visit Family [facility] [address] [place] [id number] Jordan Johnson MD [address] [place] [address] 6 month follow up [facility] Comment on above: 6 month follow up Start: 04-22-2025 DIABETES SCREEN DIABETES SCREEN [facility] Start: 04-15-2025 DIABETES SCREEN DIABETES SCREEN [facility] Start: 12-16-2024 DIABETES SCREEN DIABETES SCREEN [facility] Start: 10-31-2024 End: 10-31-2024 Patient encounter procedure 10/31/2024 2:20 PM EDT Office Visit Family [facility] [place] [address] [facility] [place] [address] Fabby Moore APRN.TRIMMING CUTTER MACHINE [address] [place] [address] 6 month follow up Family [facility] Comment on above: 6 month follow up Start: 09-06-2024 Covid-19 Vaccine () Covid-19 Vaccine () [facility] Start: 06-12-2024 DIABETES SCREEN DIABETES SCREEN [facility] Start: 06-07-2024 Advance Directive Discussion Advance Directive Discussion [facility] Start: 04-26-2024 End: 04-26-2024 Patient encounter procedure 04/26/2024 2:00 PM EST Office Visit Family Medicine [place] [address] [facility] [place] [address] Jordan Johnson MD [address] [facility] [place] [address] 6 month follow up [facility] Comment on above: 6 month follow up Start: 02-06-2024 Covid-19 Vaccine ( season) Covid-19 Vaccine ( season) [facility] Start: 02-06-2024 Covid-19 Vaccine ( season) Covid-19 Vaccine () [facility] Start: 02-06-2024 Influenza vaccination Influenza Vacc ine (#1) [facility] Start: 10-25-2023 End: 10-25-2023 Patient encounter procedure 10/25/2023 1:40 PM EDT Office Visit Family Medicine [place] [address] [facility] [place] [address] PodFabby townsend APRN.TRIMMING CUTTER MACHINE [address] [place] [address] 3 month follow up- MMSE Form Family [facility] Comment on above: 3 month follow up- M [facility] Start: 10-04-2023 End: 10-04-2023 Patient encounter procedure 10/04/2023 2:20 PM EDT Office Visit Family [facility] [address] [place] [address] PodFabby townsend APRN.TRIMMING CUTTER MACHINE [address] [place] [address] 3 month follow up- MMSE [facility] [place] Comment on above: 3 month follow up- M [facility] Start: 07-24-2023 Covid-19 Vaccine () Covid-19 Vaccine () [facility] Start: 06-15-2023 Urine microalbumin profile DTA P,TDAP,TD (1 - Tdap) [facility] Comment on above: Postponed from 10/13 (Declined at this time) Start: 06-07-2023 Advance Directive Discussion Advance Directive Discussion [facility] Start: 05-21-2023 [facility] Start: 02-06-2023 Patient discharge [facility] Start: 02-05-2023 Covid-19 Vaccine () Covid-19 Vaccine () [facility] Start: 02-05-2023 Influenza vaccination C [facility] Start: 02-04-2023 Following clinical p athway protocol [facility] Start: 02-04-2023 Assessment of risk o f venous thromboembolism [facility] Start: 02-04-2023 Insertion of cathete r into peripheral vein [facility] Start: 02-04-2023 Measuring intake and output [facility] Start: 02-04-2023 Providing care accor ding to standard [facility] Start: 02-04-2023 Provision of activit y privileges [facility] Start: 02-04-2023 Referral to occupati onal therapist [facility] Start: 02-04-2023 Referral to service [facility] Start: 02-04-2023 [facility] Start: 02-04-2023 Admission procedure [facility] Start: 02-02-2023 Patient discharge [facility] Start: 02-01-2023 Application of intermittent pneumatic compression device [facility] Start: 01-30-2023 Blood chemistry [facility] Start: 01-30-2023 Thyroid stimulating hormone measurement [facility] Start: 01-30-2023 [facility] Start: 01-30-2023 Following clinical p athway protocol [facility] Start: 01-30-2023 Assessment of risk o f venous thromboembolism [facility] Start: 01-30-[address] [facility] Start: 01-30-2023 Insertion of cathete r into peripheral vein [facility] Start: 01-30-2023 Oxygen therapy [facility] Start: 01-30-2023 Providing care accor ding to standard [facility] Start: 01-30-2023 Provision of activit y privileges [facility] Start: 01-30-2023 Referral to gastroenterology service [facility] Start: 01-30-2023 Referral to occupati onal therapist [facility] Start: 01-30-2023 Referral to service [facility] Start: 01-30-2023 [facility] Start: 01-29-[address] [facility] Start: 01-29-2023 Admission procedure [facility] Start: 01-12-2023 Patient discharge [facility] Start: 01-11-2023 [facility] Start: 01-07-2023 [facility] Start: 01-07-2023 [facility] Start: 01-05-2023 [facility] Start: 01-05-2023 [facility] Start: 01-04-2023 Chart related administrative procedure [facility] Start: 01-01-2023 End: 03-03-2023 POTASSIUM BLD POTASSIUM BLD Lab Routine Hyperkalemia Expected: 01/01/2023, Expires: 03/03/2023 [facility] Work Phone: Comment on above: Expected: 01/01/2023 , Expires: 03/03/2023 Start: 12-31-2022 Measuring intake and output [facility] Start: 12-31-2022 Following clinical p athway protocol [facility] Start: 12-31-2022 Application of intermittent pneumatic compression device [facility] Start: 12-31-2022 Recommendation to co ntinue with treatment [facility] Start: 12-31-2022 Urinary bladder training [facility] Start: 12-31-2022 Referral to service [facility] Start: 12-31-2022 Admission procedure [facility] Start: 12-31-2022 Patient referral to dietitian [facility] Start: 12-31-2022 Referral to occupati onal therapist [facility] Start: 12-31-[address] [facility] Start: 12-31-2022 Vital signs measurements [facility] Start: 12-31-2022 End: 12-31-2022 [facility] Start: 12-31-2022 Patient discharge [facility] Start: 12-31-2022 Speech therapy assessment [facility] Start: 12-30-2022 Physiotherapy of chest [facility] Start: 12-30-2022 [facility] Start: 12-30-[address] [facility] Start: 12-29-2022 Referral to occupati onal therapist [facility] Start: 12-29-2022 Assessment of risk o f venous thromboembolism [facility] Start: 12-29-2022 Insertion of cathete r into peripheral vein [facility] Start: 12-29-2022 Measuring intake and output [facility] Start: 12-29-2022 Providing care accor ding to standard [facility] Start: 12-29-2022 Provision of activit y privileges [facility] Start: 12-29-2022 Referral to service [facility] Start: 12-29-2022 [facility] Start: 12-28-2022 Admission procedure [facility] Start: 12-28-2022 [facility] Start: 12-28-2022 Emergency dept visit high severity&threat funcj EMERGENCY DEPT VISIT HI MDM [facility] Start: 12-24-2022 Blood chemistry [facility] Start: 12-24-2022 Prothrombin time [facility] Start: 10-01-2022 Urine microalbumin profile DTA P,TDAP,TD (1 - Tdap) [facility] Start: 07-17-2022 COVID-19 VACCINE (7 - Moderna series) COVID-19 VACCINE (7 - Moderna series) [facility] Start: 06-15-2022 End: 08-15-2022 Comprehensive metabolic 2000 panel - Serum or Plasma [facility] Work Phone: Comment on above: Expected: 06/15/2022 , Expires: 08/15/2022 Start: 06-15-2022 End: 08-15-2022 Ferritin [Mass/volume] in Serum or Plasma [facility] Work Phone: Comment on above: Expected: 06/15/2022 , Expires: 08/15/2022 Start: 06-15-2022 End: 08-15-2022 Iron and Iron binding capacity panel - Serum or Plasma [facility] Work Phone: Comment on above: Expected: 06/15/2022 , Expires: 08/15/2022 Start: 06-15-2022 End: 08-15-2022 Prostate specific Ag [Mass/volume] in Serum or Plasma [facility] Work Phone: Comment on above: Expected: 06/15/2022 , Expires: 08/15/2022 Start: 06-07-2022 ADVANCE DIRECTIVE DISCUSSION ADVANCE DIRECTIVE DISCUSSION [facility] Start: 06-07-2022 DEPRESSION ASSESSMENT DEPRESSION ASS ESSMENT [facility] Start: 04-20-2022 End: 06-20-2022 Basic metabolic 2000 panel - Serum or Plasma BASIC METABOLIC PNL Lab Routine Bilateral lower extremity edema Expected: 04/20/2022, Expires: 06/20/2022 [facility] Work Phone: Comment on above: Expected: 04/20/2022 , Expires: 06/20/2022 Start: 04-15-2022 End: 06-15-2022 Comprehensive metabolic 2000 panel - Serum or Plasma [facility] Work Phone: Comment on above: Expected: 04/15/2022 , Expires: 06/15/2022 Start: 04-15-2022 End: 06-15-2022 Natriuretic peptide.B prohormone N-Terminal [Mass/volume] in Serum or Plasma [facility] Work Phone: Comment on above: Expected: 04/15/2022 , Expires: 06/15/2022 Start: 04-15-2022 End: 06-15-2022 Urinalysis complete panel - Urine [facility] Work Phone: Comment on above: Expected: 04/15/2022 , Expires: 06/15/2022 Start: 02-05-2022 Influenza vaccination INFLUENZA (#1) [facility] Start: 12-19-2021 End: 02-18-2022 CBC panel - Blood by Automated count CBC Lab Routine Anemia, unspecified type Expected: 12/19/2021, Expires: 02/18/2022 [facility] Work Phone: Comment on above: Expected: 12/19/2021 , Expires: 02/18/2022 Start: 12-17-2021 End: 02-16-2022 ALK PHOS ISOENZYM BL [facility] Work Phone: Comment on above: Expected: 12/17/2021 , Expires: 02/16/2022 Start: 12-17-2021 End: 02-16-2022 Gamma glutamyl transferase [Enzymatic activity/volume] in Serum or Plasma [facility] Work Phone: Comment on above: Expected: 12/17/2021 , Expires: 02/16/2022 Start: 12-12-2021 End: 02-11-2022 CBC W Auto Differential panel - Blood [facility] Work Phone: Comment on above: Expected: 12/12/2021 , Expires: 02/11/2022 Start: 12-12-2021 End: 02-11-2022 Comprehensive metabolic 2000 panel - Serum or Plasma [facility] Work Phone: Comment on above: Expected: 12/12/2021 , Expires: 02/11/2022 Start: 12-12-2021 End: 02-11-2022 Ferritin [Mass/volume] in Serum or Plasma [facility] Work Phone: Comment on above: Expected: 12/12/2021 , Expires: 02/11/2022 Start: 12-12-2021 End: 02-11-2022 Iron and Iron binding capacity panel - Serum or Plasma [facility] Work Phone: Comment on above: Expected: 12/12/2021 , Expires: 02/11/2022 Start: 11-06-2021 COVID-19 VACCINE (5 - Booster for Moderna series) COVID-19 VACCINE (5 - Booster for Moderna series) [facility] Start: 06-07-2021 ADVANCE DIRECTIVE DISCUSSION ADVANCE DIRECTIVE DISCUSSION [facility] Start: 06-07-2021 DEPRESSION ASSESSMENT DEPRESSION ASS ESSMENT [facility] Start: 10-13-2014 Urine microalbumin profile DTA P,TDAP,TD (1 - Tdap) [facility] Start: 2012 RSV Vaccine (1 - 1-d ose 75+ series) RSV Vaccine (1 - 1-dose 75+ series) [facility] Start: 08-02-2009 SHINGRIX VACCINE (2 of 3) VILELDA GRIX VACCINE (2 of 3) [facility] Start: 12-12-2007 SHINGRIX VACCINE (2 of 3) VILLEDA GRIX VACCINE (2 of 3) [facility] Start: 1997 RSV Vaccine (1 - 1-d ose 60+ series) RSV Vaccine (1 - 1-dose 60+ series) [facility] Anion gap measurement [facility] Anion gap measurement [facility] Bacteria identified in Urine by Culture URINE CULTURE Microbiology Routine Bradycardia Urinary frequency 02/04/2023 4:38 PM EDT [facility] Work Phone: Bilirubin measuremen t, urine [facility] BUN/Creatinine ratio [facility] BUN/Creatinine ratio [facility] Calcium [Mass/volume ] in Serum or Plasma [facility] Calcium [Mass/volume ] in Serum or Plasma [facility] Carbon dioxide, tota l [Moles/volume] in Serum or Plasma [facility] Carbon dioxide, tota l [Moles/volume] in Serum or Plasma [facility] Chloride [Moles/volu me] in Serum or Plasma [facility] Chloride [Moles/volu me] in Serum or Plasma [facility] Creatinine [Moles/vo lume] in Serum or Plasma [facility] Creatinine [Moles/vo lume] in Serum or Plasma [facility] End: 10-31-2023 DXA-AXIAL SKELETON DXA-AXIAL SKELETON Radiology Routine Screening for osteoporosis 1 Occurrences starting 10/01/2022 until 10/31/2023 [facility] Work Phone: Comment on above: 1 Occurrences starti ng 10/01/2022 until 10/31/2023 End: 01-30-2024 ECG COMPLETE ECG COMPLETE ECG Routine Bradycardia 1 Occurrences starting 01/29/2023 until 01/30/2024 [facility] Work Phone: Comment on above: 1 Occurrences starti ng 01/29/2023 until 01/30/2024 End: 02-05-2024 ECG COMPLETE ECG COMPLETE ECG Routine Bradycardia 1 Occurrences starting 02/04/2023 until 02/05/2024 [facility] Work Phone: Comment on above: 1 Occurrences starti ng 02/04/2023 until 02/05/2024 End: 04-17-2023 Echocardiography ECHO Cardiology JULIAN Bilateral lower extremity edema Elevated brain natriuretic peptide (BNP) level 1 Occurrences starting 04/17/2022 until 04/17/2023 [facility] Work Phone: Comment on above: 1 Occurrences starti ng 04/17/2022 until 04/17/2023 Glucose [Mass/volume ] in Serum or Plasma [facility] Glucose [Mass/volume ] in Serum or Plasma [facility] Hematocrit [Volume Fraction] of Blood [facility] Hemoglobin [Mass/vol ume] in Blood [facility] Hemoglobin [Presence ] in Urine [facility] Hemoglobin.gastroint estina l.lower [Presence] in Stool by Immunoassay FECAL OCCULT BLOOD TEST Lab Routine Encounter for screening fecal occult blood testing Ordered: 12/18/2022 [facility] Work Phone: Comment on above: Ordered: 12/18/2022 INR in Blood by Coagulation assay [facility] Leukocytes [#/volume ] in Blood [facility] Magnesium [Mass/volu me] in Serum or Plasma [facility] Mean corpuscular hemoglobin concentration determination [facility] Mean corpuscular hemoglobin determination [facility] Measurement of keton es in urine using dipstick [facility] Measurement of renal function [facility] Measurement of renal function [facility] Microscopic urinalysis [facility] Neutrophil count [facility] Neutrophil percent differential count [facility] Patient Education [facility] Work Phone: Patient referral [facility] Work Phone: pH of Urine [facility] Platelets [#/volume] in Blood [facility] Potassium [Moles/vol ume] in Serum or Plasma [facility] Potassium [Moles/vol ume] in Serum or Plasma [facility] End: 06-17-2024 Radex spine lumbosacral 2/3 views XR LUMBAR GENERAL 3V AP/LAT/L5-S1 Radiology Routine Acute left-sided low back pain without sciatica 1 Occurrences starting 05/19/2023 until 06/17/2024 [facility] Work Phone: Comment on above: 1 Occurrences starti ng 05/19/2023 until 06/17/2024 Red blood cell count [facility] Red cell distributio n width determination [facility] Sodium [Moles/volume ] in Serum or Plasma [facility] Sodium [Moles/volume ] in Serum or Plasma [facility] Specific gravity of Urine [facility] Urea nitrogen [Mass/volume] in Serum or Plasma [facility] Urea nitrogen [Mass/volume] in Serum or Plasma [facility] Urinalysis, blood, qualitative [facility] Urine dipstick for glucose [facility] Urine dipstick for leukocyte esterase [facility] Urine dipstick for nitrite [facility] Urine dipstick for protein [facility] Urine examination [facility] Urine microscopy: epithelial cells [facility] Urine Microscopy: wh ite cells [facility] Urobilinogen [Presen ce] in Urine [facility] [place] [facility] Immunizations Immunization Date Immunization Notes Care Provider Cuba watkins 03-23-2023 influenza virus vaccine, unspecified formulation Nathaly Spivey RN Work Phone: [facility] 09-30-2022 TD(adult) unspecifie d formulation Selene Hauser APRN.TRIMMING CUTTER MACHINE Work Phone: [facility] Work Phone: 09-30-2022 tetanus and diphther ia toxoids, adsorbed, preservative free, for adult use (5 Lf of tetanus toxoid and 2 Lf of diphtheria toxoid) Selene Hauser APRN.TRIMMING CUTTER MACHINE Work Phone: [facility] 03-16-2022 COVID-19 booster vaccine, age 12+ yr, bivalent (PFIZER-BIONTAmplitude) Jordan Johnson MD Work Phone: [facility] 03-16-2022 influenza, high dose seasonal, preservative-free Dr. Jaime Johnson Work Phone: [facility] 03-16-2022 influenza, high-dose , quadrivalent vaccine (FLUZONE HIGH DOSE QUADRIVALENT) Jordan Johnson MD Work Phone: [facility] 03-16-2022 influenza virus vaccine, unspecified formulation Glenna Martinez RN [facility] 02-02-2022 tetanus toxoid, redu johnna diphtheria toxoid, and acellular pertussis vaccine, adsorbed [facility] 09-11-2021 Covid (Moderna) Dr. Julia Johnson Work Phone: [facility] 07-25-2021 COVID-19 original vaccine, full dose, monovalent (MODERNA) Jordan Johnson MD Work Phone: [facility] Work Phone: 06-27-2021 COVID-19 original vaccine, full dose, monovalent (MODERNA) Jordan Johnson MD Work Phone: [facility] Work Phone: 04-03-2021 Covid (Moderna) Dr. Julia Johnson Work Phone: [facility] 03-12-2021 influenza, high-dose , quadrivalent vaccine (FLUZONE HIGH DOSE QUADRIVALENT) Jordan Johnson MD Work Phone: [facility] 02-05-2021 influenza nasal, unspecified formulation Jordan Johnson MD Work Phone: [facility] Work Phone: 07-25-2020 COVID-19 vaccine, fu ll dose (MODERNA) Jordan Johnson MD Work Phone: [facility] 06-27-2020 COVID-19 vaccine, fu ll dose (MODERNA) Jordan Johnson MD Work Phone: [facility] 03-29-2020 influenza, high-dose , quadrivalent vaccine (FLUZONE HIGH DOSE QUADRIVALENT) Jordan Johnson MD Work Phone: [facility] Work Phone: 02-06-2020 influenza nasal, unspecified formulation Jordan Johnson MD Work Phone: [facility] Work Phone: 03-02-2019 influenza, high dose seasonal, preservative-free Jordan Johnson MD Work Phone: [facility] 03-05-2018 influenza, high dose seasonal, preservative-free Jordan Johnson MD Work Phone: [facility] 02-05-2018 influenza nasal, unspecified formulation Jordan Johnson MD Work Phone: [facility] Work Phone: 03-13-2017 influenza, high dose seasonal, preservative-free Jordan Johnson MD Work Phone: [facility] Work Phone: 02-05-2017 influenza nasal, unspecified formulation Jordan Johnson MD Work Phone: [facility] Work Phone: 09-08-2016 pneumococcal polysaccharide vaccine, 23 valent Jordan Johnson MD Work Phone: [facility] 02-19-2016 influenza, high dose seasonal, preservative-free Jordan Johnson MD Work Phone: [facility] 03-07-2015 influenza, high dose seasonal, preservative-free Jordan Johnson MD Work Phone: [facility] Work Phone: 10-12-2014 tetanus and diphther ia toxoids, adsorbed, preservative free, for adult use (5 Lf of tetanus toxoid and 2 Lf of diphtheria toxoid) Jordan Johnson MD Work Phone: [facility] 10-05-2014 pneumococcal conjuga te vaccine, 13 valent Jordan Johnson MD Work Phone: [facility] 03-14-2014 influenza, seasonal, injectable Jordan Johnson MD Work Phone: [facility] 02-05-2014 influenza nasal, unspecified formulation Jordan Johnson MD Work Phone: [facility] Work Phone: 02-05-2013 influenza nasal, unspecified formulation Jordan Johnson MD Work Phone: [facility] Work Phone: 03-09-2012 influenza nasal, unspecified formulation Jordan Johnson MD Work Phone: [facility] Work Phone: 03-25-2010 influenza virus vaccine, unspecified formulation Jordan Johnson MD Work Phone: [facility] 09-05-2009 pneumococcal polysaccharide vaccine, 23 valent Jordan Johnson MD Work Phone: [facility] 06-07-2009 zoster vaccine, live Titus Johnson MD Work Phone: [facility] Work Phone: 03-12-2009 influenza nasal, unspecified formulation Jordan Johnson MD Work Phone: [facility] Work Phone: 03-29-2008 influenza nasal, unspecified formulation Jordan Johnson MD Work Phone: [facility] Work Phone: 10-17-2007 zoster vaccine, live Titus Johnson MD Work Phone: [facility] 04-07-2007 influenza nasal, unspecified formulation Jordan Johnson MD Work Phone: [facility] Work Phone: 04-11-2002 influenza nasal, unspecified formulation Jordan Johnson MD Work Phone: [facility] Work Phone: Payers Date Payer Category Payer Self-pay [id number] 2020 Medicare HUMANA MEDICARE HUMANA MEDICARE PPO [id number] 2020-Present [phone] [id number] 2020 Medicare (Managed Care) HUMANA EDICARE [id number] 2019 Medicare [id number] 2013 Medicare [id number] Unknown VA AUTH REQUIR ED SEE NOTE [id number] Unknown VA AUTH REQUIR ED SEE NOTE [id number] Unknown [id number] Unknown [id number] Unknown [id number] Social History Date Type Detail Facility Start: 12-25-2013 End: 05-02-2024 Tobacco smoking status NHIS Ex-smoker [facility] End: 06-07-1994 History of tobacco use Current smoker [facility] End: 06-07-1994 History of tobacco use Cigarette Smoker [facility] Start: 12-25-2013 End: 11-01-2024 Cigarettes smoked current (pack per day) - Reported 0.2 [facility] Start: 12-25-2013 End: 05-02-2024 Tobacco use and exposure Smokeless tobacco non-user [facility] Start: 08-13-2021 End: 05-02-2024 Alcohol intake Current non-drinker of alcohol (finding) [facility] Start: 10-07-2019 End: 04-09-2022 History SDOH Alcohol Frequency 1 [facility] Start: 12-05-2019 End: 04-09-2022 History SDOH Social Connections Phone 2 [facility] Start: 06-07-2019 End: 05-05-2022 History SDOH Social Connections Yazdanism 3 [facility] Start: 12-05-2019 End: 05-05-2022 History SDOH Physical Activity DPW 98 [facility] Start: 06-07-2019 End: 05-05-2022 History SDOH Physical Activity MPS 0 [facility] Start: 06-07-2019 End: 05-05-2022 History SDOH Financial 5 [facility] Start: 06-07-2019 Education 14 [facility] Start: 12-25-2013 End: 02-03-2022 Tobacco Comment quit 10 years ago [facility] Start: 1935 Sex Assigned At Not on file [facility] Start: 07-21-2020 End: 04-22-2022 Exposure to SARS-CoV-2 (event) Not sure [facility] Start: 05-19-2017 End: 05-21-2023 Tobacco smoking status NHIS Unknown if ever smoked [facility] Start: 1935 Sex Assigned At Male W [facility] Start: 05-04-2022 End: 11-01-2024 Social connection and isolation panel [facility] How often do you get together with friends or relatives? Patient refused [facility] How often to you hav e a drink containing alcohol? Never [facility] Do you feel stress - tense, restless, nervous, or anxious, or unable to sleep at night because your mind is troubled all the time - these days [OSQ] Not at all [facility] The food that (I/we) bought just didn't last, and (I/we) didn't have money to get more. Never true [facility] At any time in the p ast 12 months, were you homeless or living in [facility] [including now]? No [facility] Start: 09-12-2018 Gender identity Identifies as male gender (finding) [facility] Start: 09-12-2018 Sexual orientation Heterosexual (dylan choi) [facility] Do you feel stress - tense, restless, nervous, or anxious, or unable to sleep at night because your mind is troubled all the time - these days [OSQ] Only a little [facility] Are you now , , , , never or living with a partner? [facility] Do you feel stress - tense, restless, nervous, or anxious, or unable to sleep at night because your mind is troubled all the time - these days [OSQ] To some extent [facility] Medical Equipment Procedure Code Equipment Code Equipment Origin al Text Equipment Identifier Dates Burket Suture Corkscrew 5.5mm - [id number] Start: 11-13-2010 Anchr Biocomp 4.75x24.5mm - [id number] Start: 11-13-2010 Goals Date Patient Goal [...] by 06/06/24 (describe interventions done by PCC) Functional Status Date Assessment Result Facility 02-06-[address] [facility] Work Phone: 02-02-[address] [facility] Work Phone: 01-12-[address] [facility] Work Phone: 12-31-[address] [facility] Work Phone: 12-28-2022 Are you deaf, or do you have serious difficulty hearing Yes 12/28/2022 6:05 PM Izabela Oquendo RN Yes [facility] 12-28-2022 Are you blind, or do you have serious difficulty seeing, even when wearing glasses No 12/28/2022 6:05 PM Izabela Oquendo RN No [facility] 12-28-2022 Do you have serious difficulty walking or climbing stairs Yes 12/28/2022 6:05 PM Izabela Oquendo RN Yes [facility] 12-28-2022 Do you have difficul ty dressing or bathing No 12/28/2022 6:05 PM Izabela Oquendo RN No [facility] 12-28-2022 Because of a physica l, mental, or emotional condition, do you have difficulty doing errands alone such as visiting a physician's office or shopping No 12/28/2022 6:05 PM Izabela Oquendo RN No [facility] Mental Status Date Assessment Result Facility 02-06-2023 Cognitive function Voice/Name [facility] Work Phone: 02-02-2023 Cognitive function Voice/Name Yaritza [facility] Work Phone: 01-12-2023 Cognitive function Voice/Name Oran [facility] Work Phone: 12-31-2022 Cognitive function Voice/Name [facility] Work Phone: 12-28-2022 Because of a physica l, mental, or emotional condition, do you have serious difficulty concentrating, remembering, or making decisions No 12/28/2022 6:05 PM EDT Izabela Douglas RN No [facility] Clinical Notes 11-19-2015 to 11-09-2024 Telephone Encounter - Tasha Collins OCCA - 11/09/2024 10:58 AM EDTTelephone Encounter - Tasha Collins OCCA - 11/09/2024 10:58 AM Reinaldo Dimas MA - 11/03/2024 10:30 AM EDT Note Date & Type Note Facility 11-09-2024 Telephone encounter Note [facility] 11/01/2024 with Annel Moore CNP 05/08/[address] Johnson [facility] 11-09-2024 Miscellaneous Notes [facility] 11/01/2024 with Annel Moore CNP 05/08/[address] Johnson documented in this encounter [facility] 11-06-2024 Telephone encounter Note Pt notified of results via [employer]. Isidra De Paz Ma [facility] 11-06-2024 Telephone encounter Note ----- Message from Fabby Moore APRN.TRIMMING CUTTER MACHINE sent at 11/02/2024 7:02 AM EDT ----- Kidney function is stable. Continue to eat low salt diet, stay well hydrated and avoid NSAID products. The rest of his blood work is in acceptable ranges. Fabby Moore APRN.TRIMMING CUTTER MACHINE [facility] 11-06-2024 Miscellaneous Notes Pt notified of results via [employer]. Isidra De Paz Ma ----- Message from Fabby Moore APRN.TRIMMING CUTTER MACHINE sent at 11/02/2024 7:02 AM EDT ----- Kidney function is stable. Continue to eat low salt diet, stay well hydrated and avoid NSAID products. The rest of his blood work is in acceptable ranges. Fabby Moore APRN.TRIMMING CUTTER MACHINE documented in this encounter [facility] 11-03-2024 Note HNO ID: [id number] Author: REINALDO TREJO MA Service: ? Author Type: Mottler Machine Feeder Type: Progress Notes Filed: 11/03/2024 10:31 Note Text: POPULATION HEALTH NAVIGATION OUTREACH Action/November 03, 2024 Reason for Outreach Care Gap/HCC or Scheduling Wellness Visits Care Gaps due: Medicare Annual Wellness Visit Patient Contacted: Unable or unnecessary to reach patient: Flipped existing appointment Navigation Signature: Reinaldo Trejo MA November 03, 2024 10:31 AM [facility] 11-03-2024 History of Present illness Narrative POPULATION HEALTH NAVIGATION OUTREACH Action/November 03, 2024 Reason for Outreach Care Gap/HCC or Scheduling Wellness Visits Care Gaps due: Medicare Annual Wellness Visit Patient Contacted: Unable or unnecessary to reach patient: Flipped existing appointment Navigation Signature: Reinaldo Trejo MA November 03, 2024 10:31 AM documented in this encounter [facility] 11-03-2024 Note Patient Outreach (CURTIS TNAV) ATIF COLÓN ([id number]) 1935 M Date Time Provider Department 11/03/24 REINALDO TREJO NETFESTUSV During your visit today, we recorded the following information about you: Reinaldo Trejo MA 11/03/2024 10:31 AM Signed POPULATION HEALTH NAVIGATION OUTREACH Action/FYI November 03, 2024 Reason for Outreach Care Gap/HCC or Scheduling Wellness Visits Care Gaps due: Medicare Annual Wellness Visit Patient Contacted: Unable or unnecessary to reach patient: Flipped existing appointment Navigation Signature: Reinaldo Trejo MA November 03, 2024 10:31 AM Allergies As of Date: 11/03/2024 Noted Allergy Reaction ASPIRIN 09/23/2010 8 - GI Upset PENICILLINS 10/28/2009 2 - Rash Date Reviewed: 11/01/2024 Reviewed by: Rosenda Vitale LPN - Fully Assessed Reason for Visit: Population Health Navigation Outreach [3910] Cmt: AWV- DASHBOARD- HUMANA Prescriptions as of 11/03/2024 - artificial tear, Hypromellose, 0.3 % drop Use 1 Drop in both eyes as needed. - acetaminophen 325 mg cap Take 2 [...] once daily. Problem List As Of Date 11/03/2024 Noted Resolved Abdominal Pain, Epigastric [R10.13] 10/28/2009 [...] 03/03/2023 Depression [F32.A] 04/01/2023 Encounter Status:Closed by REINALDO TREJO on 11/03/24 [facility] 11-01-2024 Instructions Fabby Moore APRN.CNP - 11/01/2024 2:19 PM EDT - Check in at the front worker and have blood drawn today for kidney function and to measure your sodium and potassium levels. - Return in six months for your routine follow-up visit. documented in this encounter [facility] 11-01-2024 Note HNO ID: [id number] Author: FABBY MOORE APRN.EZ Service: ? Author Type: Nurse Practitioner Type: Progress Notes Filed: 11/01/2024 14:36 Note Text: 11/01/2024 Patient presents with: F/U 6 months: Moving into [facility] November 05 Recording using Watsin software for draft documentation of the visit was discussed with the patient/authorized consumer sales representative; all questions welcomed and answered. Patient/authorized consumer sales representative agreed to proceed SUBJECTIVE: This is a 89 year old, accompanied by daughter, that is here today for Above Complaints. Depression: - Managed with Zoloft; reports feeling okay. - Experiences occasional nightmares. - Denies issues with self-care or recognizing family and friends. BPH: - Managed with medication. - Urinates 2-3 times in the morning; uses a urinal at night. - Denies nocturia, hematuria, dysuria, or urinary straining. - Feels complete bladder emptying after the third morning void. HTN: - Managed with amlodipine. - Assisted living facility reportedly does not check BP frequently. 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 - Reports previous low sodium levels. Dementia: - Managed with Aricept. - Denies issues with self-care or recognizing family and friends. Mobility: - Uses a walker; denies recent falls. - Experiences pain when walking. - Denies LE edema, chest pain, or dyspnea. Living Situation: - Currently in assisted living at [facility]; moving to [place] on the . - Limited family visits; primary support from daughter. PAST MEDICAL HISTORY Diagnosis Date Abdominal pain, [...] Seen previously by Dr. 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 acetaminophen 325 mg cap Take 2 capsules [...] Social History Tobacco Use Smoking status: Former Current packs/day: 0.00 Types: Cigarettes Quit date: 06/07/1994 Years since quittin.4 Smokeless tobacco: Never Tobacco comments: quit 10 years ago Substance Use Topics Alcohol use: No Drug use: No REVIEW OF SYSTEMS All other reviewed and negative other than HPI. OBJECTIVE: BP 132/68 Pulse (!) 56 Resp 18 Wt 85.7 kg (189 lb) SpO2 96% BMI 31.45 kg/m? . Vital signs reviewed by this [...] suspicious rashes or lesions to exposed skin Latest Ref Rng 05/02/2024 WBC 3.70 - 11.00 k/uL 5.95 RBC 4.20 - 6.00 m/uL 3.68 (L) Hemoglobin 13.0 - 17.0 g/dL 12.3 (L) Hematocrit 39.0 - 51.0 % 37.9 (L) MCV 80.0 - 100.0 fL 103.0 (H) MCH 26.0 - 34.0 pg 33.4 MCHC 30.5 - 36.0 g/dL 32.5 RDW-CV 11.5 - 15.0 % 13.8 Platelet Count 150 - 400 k/uL 226 MPV 9.0 - 12.7 fL 13.0 (H) Neut% % 55.2 Abs Neut (ANC) 1.45 - 7.50 k/uL 3.28 Lymph% % 27.4 Abs Lymph 1.00 - 4.00 k/uL 1.63 Cole% % 10.4 Abs Cole <0.87 k/uL 0.62 Eosin% % 6.2 Abs Eosin <0.46 k/uL 0.37 Baso% % 0.5 Abs Baso <0.11 k/uL 0.03 Immature Gran % % 0.3 IMMATURE GRANS (ABS) <0.10 k/uL <0.03 NRBC /100 WBC 0.0 Absolute nRBC <0.01 k/uL <0.01 DTYPE Auto Protein, Total 6.3 - 8.0 g/dL 7.4 (more content not included)... [facility] 11-01-2024 History of Present illness Narrative 11/01/2024 Patient presents with: F/U 6 months: Moving into [facility] November 05 Recording using Watsin software for draft documentation of the visit was discussed with the patient/authorized consumer sales representative; all questions welcomed and answered. Patient/authorized consumer sales representative agreed to proceed SUBJECTIVE: This is a 89 year old, accompanied by daughter, that is here today for Above Complaints. Depression: - Managed with Zoloft; reports feeling okay. - Experiences occasional nightmares. - Denies issues with self-care or recognizing family and friends. BPH: - Managed with medication. - Urinates 2-3 times in the morning; uses a urinal at night. - Denies nocturia, hematuria, dysuria, or urinary straining. - Feels complete bladder emptying after the third morning void. HTN: - Managed with amlodipine. - Assisted living facility reportedly does not check BP frequently. 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 - Reports previous low sodium levels. Dementia: - Managed with Aricept. - Denies issues with self-care or recognizing family and friends. Mobility: - Uses a walker; denies recent falls. - Experiences pain when walking. - Denies LE edema, chest pain, or dyspnea. Living Situation: - Currently in assisted living at [facility]; moving to [place] on the . - Limited family visits; primary support from daughter. PAST MEDICAL HISTORY Diagnosis Date Abdominal pain, epigastric BPH (benign prostatic hyperplasia) CKD (chronic kidney disease), stage III ([facility]) Dr. Childress DDD (degenerative disc disease), [...] Seen previously by Dr. 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 acetaminophen 325 mg cap Take 2 capsules [...] Social History Tobacco Use Smoking status: Former Current packs/day: 0.00 Types: Cigarettes Quit date: 06/07/1994 Years since quittin.4 Smokeless tobacco: Never Tobacco comments: quit 10 years ago Substance Use Topics Alcohol use: No Drug use: No REVIEW OF SYSTEMS All other reviewed and negative other than HPI. OBJECTIVE: BP 132/68 Pulse (!) 56 Resp 18 Wt 85.7 kg (189 lb) SpO2 96% BMI 31.45 kg/m . Vital signs reviewed by this [...] suspicious rashes or lesions to exposed skin Latest Ref [facility] 05/02/2024 WBC 3.70 - 11.00 k/uL 5.95 RBC 4.20 - 6.00 m/uL 3.68 (L) Hemoglobin 13.0 - 17.0 g/dL 12.3 (L) Hematocrit 39.0 - 51.0 % 37.9 (L) MCV 80.0 - 100.0 fL 103.0 (H) MCH 26.0 - 34.0 pg 33.4 MCHC 30.5 - 36.0 g/dL 32.5 RDW-CV 11.5 - 15.0 % 13.8 Platelet Count 150 - 400 k/uL 226 MPV 9.0 - 12.7 fL 13.0 (H) Neut% % 55.2 Abs Neut (ANC) 1.45 - 7.50 k/uL 3.28 Lymph% % 27.4 Abs Lymph 1.00 - 4.00 k/uL 1.63 Cole% % 10.4 Abs Cole <0.87 k/uL 0.62 Eosin% % 6.2 Abs Eosin <0.46 k/uL 0.37 Baso% % 0.5 Abs Baso <0.11 k/uL 0.03 Immature Gran % % 0.3 IMMATURE GRANS (ABS) <0.10 k/uL <0.03 NRBC /100 WBC 0.0 Absolute nRBC <0.01 k/uL <0.01 DTYPE Auto Protein, Total 6.3 - 8.0 g/dL 7.4 Albumin 3.9 - 4.9 g/dL 4.0 Calcium 8.5 - 10.2 mg/dL 9.2 Bilirubin, Total 0.2 - 1.3 mg/dL 0.3 Alkaline Phosphatase 38 - 113 U/L 171 (H) AST 14 - 40 U/L 38 ALT 10 - 54 U/L 37 Glucose 74 - 99 mg/dL 98 BUN 9 - 24 mg/dL 27 (H) Creatinine 0.73 - 1.22 mg/dL 1.36 (H) Sodium 136 - 144 mmol/L 137 Potassium 3.7 - 5.1 mmol/L 4.7 Chloride 98 - 107 mmol/L 103 CO2 22 - 30 mmol/L 22 Anion Gap 8 - 15 mmol/L 12 eGFR >=60 mL/min/1.73m 51 (L) Total Cholesterol, Nonfasting <200 mg/dL 178 Triglycerides, Nonfasting <150 mg/dL 230 (H) HDL Cholesterol, Nonfasting >39 mg/dL 44 LDL Cholesterol Calculated, Nonfasting <100 mg/dL 88 Non HDL Cholesterol, Nonfasting <130 mg/dL 134 (H) VLDL Cholesterol, Nonfasting <30 mg/dL 46 (H) Total Chol/HDL Ratio, Nonfasting <5.10 mg/dL 4.05 LDL/HDL Ratio, Nonfasting <2.54 mg/dL 2.00 PSA Screening <2.60 ng/mL 1.60 Legend: (L) Low (H) High 1. Essential hypertension (I10) - Blood pressure well-controlled on amlodipine; today's reading is 132/68 mmHg. - Continue current medication regimen. 2. Benign prostatic hyperplasia with nocturia (N40.1) - Urination frequency noted in the morning, approximately 2-3 times; no nocturia reported. - No dysuria, hematuria, or straining during micturition. - Continue current medication for BPH. 3. Depression, unspecified depression type (F32.A) - Mood stable on sertraline. - Continue current medication regimen. 4. Stage 3a chronic kidney disease (HCC) (N18.31) - Previous labs indicated low sodium levels; potassium levels have been stable. - Ordered lab work to assess kidney function, sodium, and potassium levels today. - Follow-up in 6 months for routine evaluation. Fabby Moore APRN.EZ Prescription instructions reviewed with [...] 4 - Moderate documented in this encounter [facility] 06-05-2024 Note HNO ID: [id number] Author: ?, ?, ? Service: ? Author Type: ? Type: Progress Notes Filed: 06/05/2024 13:53 Note Text: POPULATION HEALTH NAVIGATION OUTREACH Action/I Updated PCP follow up to include medicare wellness per AWV initiative. Reason for Outreach Care Gap/HCC or Scheduling Wellness Visits Care Gaps due: Medicare Annual Wellness Visit Patient Contacted: Unable or unnecessary to reach patient: Flipped existing appointment Updated appointment notes Navigation Signature: Aaron Juárez Population Health Navigator June 05, 2024 1:52 PM [facility] 06-05-2024 Note Patient Outreach (CURTIS TNAV) ATIF COLÓN ([id number]) 1935 M Date Time Provider Department 06/05/24 AARON JUÁREZ During your visit today, we recorded the following information about you: Cynthia Population Health NavigatorAaron 06/05/2024 1:53 PM Signed POPULATION HEALTH NAVIGATION OUTREACH Action/FYI Updated PCP follow up to include medicare wellness per AWV initiative. Reason for Outreach Care Gap/HCC or Scheduling Wellness Visits Care Gaps due: Medicare Annual Wellness Visit Patient Contacted: Unable or unnecessary to reach patient: Flipped existing appointment Updated appointment notes Navigation Signature: Aaron Juárez Population Health Navigator June 05, 2024 1:52 PM Allergies As of Date: 06/05/2024 Noted Allergy Reaction ASPIRIN 09/23/2010 8 - GI Upset PENICILLINS 10/28/2009 2 - Rash Date Reviewed: 05/02/2024 Reviewed by: Jessy Alas LPN - Fully Assessed Reason for Visit: Population Health Navigation Outreach [3910] Cmt: Jana AWV Initiative Prescriptions as of 06/05/2024 - artificial tear, Hypromellose, 0.3 % drop Use 1 Drop in both eyes as needed. - benzonatate (TESSALON PERLES) 100 mg capsule Take 1 capsule by mouth three times a day as needed. - cyclobenzaprine (FLEXERIL) 5 mg tablet Take [...] once daily. Problem List As Of Date 06/05/2024 Noted Resolved Abdominal Pain, Epigastric [R10.13] 10/28/2009 [...] 03/03/2023 Depression [F32.A] 04/01/2023 Encounter Status:[facility] NAVIGATORAARON on 06/05/24 [facility] 05-08-2024 Telephone encounter Note Phoned daughter Gilma and went over results, notes below from Dr Johnson with understanding. [facility] 05-08-2024 Miscellaneous Notes Phoned daughter Gilma and went over results, notes below from Dr Johnson with understanding. ----- Message from Jordan Johnson MD sent at 05/08/2024 11:29 AM EST ----- Labs show stable mild anemia, CKD stage III, high triglycerides, and mild elevation in alk phos which is also stable. Recommend low cholesterol/low sodium diet <2,000 mg per day, avoidance of NSAIDs, and increased water intake. No change in regimen. documented in this encounter [facility] 05-08-2024 Telephone encounter Note ----- Message from Jordan Johnson MD sent at 05/08/2024 11:29 AM EST ----- Labs show stable mild anemia, CKD stage III, high triglycerides, and mild elevation in alk phos which is also stable. Recommend low cholesterol/low sodium diet <2,000 mg per day, avoidance of NSAIDs, and increased water intake. No change in regimen. [facility] 05-02-2024 Note HNO ID: [id number] Author: JORDAN JOHNSON MD Service: ? Author Type: Physician Type: Progress Notes Filed: 05/10/2024 13:05 Note Text: Chief Complaint Patient presents with: Follow Up: 6 month HPI Atif Colón is a 88 year old male who presents here today for Above Complaints. Accompanied today by daughter Gilma. Patient residing at [facility]. Nurses dispense his medications for him on a daily basis. BP well controlled on current regimen. Patient positive for COVID on 04/10 and symptoms have resolved without need for Paxlovid. Patient on Aricept for dementia. Daughter has not noticed any change in his memory and mood seems to be improved on his Zoloft. Denies SI/HI. On finasteride for BPH which seems to be working well for BPH. Denies weak stream, straining to urinate, dysuria, hematuria, nocturia. Due for PSA. Past medical history, appointments, medications, allergies reviewed. [...] on File Prior to Visit Medication Sig artificial tear, Hypromellose, 0.3 % drop Use 1 Drop in both eyes as needed. benzonatate (TESSALON PERLES) 100 mg capsule Take 1 capsule by mouth three times a day as needed. cyclobenzaprine (FLEXERIL) 5 mg tablet Take 1 [...] mouth once daily. No current facility-administered medications on file prior to visit. Social History Social History Tobacco Use Smoking status: Former Current packs/day: 0.00 Types: Cigarettes Quit date: 06/07/1994 Years since [...] for lesions, rash, and itching EXAM: BP 136/64 Pulse 62 Resp 16 Wt 85.8 kg (189 lb 3.2 oz) SpO2 97% BMI 31.48 kg/m? General Appearance: Well appearing, alert, in [...] Good capillary refill. . Health Maintenance List Shingrix Vaccine(2 of 3) due on 08/02/2009 RSV Vaccine(1 - 1-dose 75+ series) Never done Advance Directive Discussion Never done Diabetes Screening due on 10/24/2026 DTaP,Tdap,Td Vaccine(3 - Td or T (more content not included)... [facility] 05-02-2024 History of Present illness Narrative Chief Complaint Patient presents with: Follow Up: 6 month HPI Atif Colón is a 88 year old male who presents here today for Above Complaints. Accompanied today by daughter Gilma. Patient residing at [facility]. Nurses dispense his medications for him on a daily basis. BP well controlled on current regimen. Patient positive for COVID on 04/10 and symptoms have resolved without need for Paxlovid. Patient on Aricept for dementia. Daughter has not noticed any change in his memory and mood seems to be improved on his Zoloft. Denies SI/HI. On finasteride for BPH which seems to be working well for BPH. Denies weak stream, straining to urinate, dysuria, hematuria, nocturia. Due for PSA. Past medical history, appointments, medications, allergies reviewed. [...] on File Prior to Visit Medication Sig artificial tear, Hypromellose, 0.3 % drop Use 1 Drop in both eyes as needed. benzonatate (TESSALON PERLES) 100 mg capsule Take 1 capsule by mouth three times a day as needed. cyclobenzaprine (FLEXERIL) 5 mg tablet Take 1 [...] mouth once daily. No current facility-administered medications on file prior to visit. Social History Social History Tobacco Use Smoking status: Former Current packs/day: 0.00 Types: Cigarettes Quit date: 06/07/1994 Years since [...] for lesions, rash, and itching EXAM: BP 136/64 Pulse 62 Resp 16 Wt 85.8 kg (189 lb 3.2 oz) SpO2 97% BMI 31.48 kg/m General Appearance: Well appearing, alert, in [...] Good capillary refill. . Health Maintenance List Shingrix Vaccine(2 of 3) due on 08/02/2009 RSV Vaccine(1 - 1-dose 75+ series) Never done Advance Directive Discussion Never done Diabetes Screening due on 10/24/2026 DTaP,Tdap,Td Vaccine(3 - Td or Tdap) due on 09/30/2032 Influenza Vaccine Completed Covid-19 Vaccine Completed Pneumococcal Vaccine: 65+ Completed Data reviewed Latest Ref Rng 01/29/2023 04/01/2023 10/25/2023 WBC 3.70 - 11.00 k/uL 8.23 RBC [...] Abs Lymph 1.00 - 4.00 k/uL 2.13 Cole% % 9.2 Abs Cole <0.87 k/uL 0.76 Eosin% % 0.5 Abs Eosin <0.46 k/uL 0.04 Baso% % 0.5 Abs Baso <0.11 k/uL 0.04 Immature Gran % % 0.4 IMMATURE GRANS (ABS) <0.10 k/uL 0.03 NRBC /100 WBC 0.0 Absolute nRBC <0.01 k/uL <0.01 DTYPE Auto Protein, Total 6.3 - 8.0 g/dL 8.2 (H) 7.0 7.2 Albumin 3.9 - 4.9 g/dL 4.3 3.8 (L) 3.9 Calcium 8.5 - 10.2 mg/dL 9.8 9.1 9.4 Bilirubin, Total 0.2 - 1.3 mg/dL 0.9 0.2 0.2 Alkaline Phosphatase 38 - 113 U/L 151 (H) 154 (H) 141 (H) AST 14 - 40 U/L 25 51 (H) 32 ALT 10 - 54 U/L 25 65 (H) 26 Glucose 74 - 99 mg/dL 112 (H) 96 97 BUN 9 - 24 mg/dL 32 (H) 26 (H) 29 (H) Creatinine 0.73 - 1.22 mg/dL 1.89 (H) 1.23 (H) 1.35 (H) Sodium 136 - 144 mmol/L 131 (L) 133 (L) 135 (L) Potassium 3.7 - 5.1 mmol/L 3.6 (L) 4.9 5.1 Chloride 97 - 105 mmol/L 96 (L) 99 101 CO2 22 - 30 mmol/L 20 (L) 24 24 Anion Gap 9 - 18 mmol/L 15 10 10 eGFR >=60 mL/min/1.73m 34 (L) 58 (L) 51 (L) Legend: (L) Low (H) High ASSESSMENT/PLAN: 1. Essential hypertension - ICD9: 401.9, ICD10: I10 (primary diagnosis) - Controlled - Continue current medications - Recommend home blood pressure monitoring, to bring results to next visit - Encouraged sodium restriction, DASH or Mediterranean diet - Recommend regular aerobic exercise - COMPLETE BLOOD COUNT AND DIFFERENTIAL - COMPREHENSIVE METABOLIC PANEL - LIPID PANEL, NONFASTING 2. Benign prostatic hyperplasia with nocturia - ICD9: 600.01, 788.43, ICD10: N40.1, R35.1 Improved on current regimen. - PSA/PROSTATE SPECIFIC ANTIGEN SCREENING 3. 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) - ICD9: 296.21, ICD10: F32.0 Controlled. Continue SSRI. 4. Stage 3a chronic kidney disease (HCC) - ICD9: 585.3, ICD10: N18.31 Recheck CMP. - Counseled on avoiding NSAIDs, adequate hydration - Counseled on low sodium diet 5. Senile dementia (HCC) - ICD9: 290.0, ICD10: F03.90 Stable on Aricept. 6. Gastroesophageal reflux disease, unspecified whether esophagitis present - ICD9: 530.81, ICD10: K21.9 - Continue treatment with Pantoprazole BID Jordan Johnson MD documented in this encounter [facility] 04-17-2024 Telephone encounter Note Miriam requesting rx for artificial tears for intermittent burning eyes. Rx sent. [facility] 04-17-2024 Miscellaneous Notes Miriam requesting rx for artificial tears for intermittent burning eyes. Rx sent. documented in this encounter [facility] 04-13-2024 Telephone encounter Note Spoke with patient's daughter Shadi today regarding another TE and discussed paxlovid with her. She stated she believed patient was on Day 4 of covid symptoms and feels patient is improving. Declined need at this time. Jessy Alas LPN [facility] 04-13-2024 Miscellaneous Notes Spoke with patient's daughter Shadi today regarding another TE and discussed paxlovid with her. She stated she believed patient was on Day 4 of covid symptoms and feels patient is improving. Declined need at this time. Jessy Alas LPN Call placed to [facility], phone just rings and rings. Unable to leave a message. Rosenda Vitale LPN Received fax notification from [facility] that patient tested positive for COVID on 04/10/24. PCP noted and asking if patient wanted VV to discuss Paxlovid treatment. Contacted Miriam and charge nurse unavailable. Viticulture Teacher advised she would have her call back in. Jessy Alas LPN documented in this encounter [facility] 04-13-2024 Telephone encounter Note Phoned patient's daughter Shadi and reviewed message with her. She voiced understanding. She stated patient seems to have improved since he slept well last night after receiving the tessalon pearls. She believes patient is on day 4 of COVID so doesn't feel paxlovid would be necessary. Jessy Alas LPN [facility] 04-13-2024 Miscellaneous Notes Phoned patient's daughter Shadi and reviewed message with her. She voiced understanding. She stated patient seems to have improved since he slept well last night after receiving the tessalon pearls. She believes patient is on day 4 of COVID so doesn't feel paxlovid would be necessary. Jessy Alas LPN I would see if they have higher level care for acute need and agree with extra staff member on the floor. If he was eligible for Paxlovid or Lagevrio would need VV. Rx faxed to [facility]. Telephone call placed to [facility] to speak with a nurse. No answer, phone just rings and rings. Call placed to daughter Shadi to make aware that Rx was faxed per her request. Shadi voiced that she wanted provider to be aware that patient fell x3 yesterday due to weakness from being sick. Nothing has been received from [facility]iam at this time regarding. Patient was sent to [facility] because one fall he did hit his head. ER report and imaging printed, placed in PCP inbox. Asking if PCP has any advice for safety measures. [facility]iam did offer to have an extra staff member be on the floor and had family pay for this but this does not guarantee 1:1 care. Is wondering if patient should be moved to a more hands on area for a higher level of care for a short time in this time of need. Shadi instructed to ask [facility] if they have a higher level of care for an acute need in the skilled area. Shadi will call and ask tomorrow 04/13. Please advise. Rosenda Vitale LPN Prescription for Tessalon Perles sent to pharmacy. Fabby Moore APRN.EZ Phoned Lalo and given provider's message below. Reports patient is having a cough, doesn't seem to be having congestion. If he gets congestion she will let provider know. Lalo reports she is a nurse. Also asking provider to send fax to let them know tessalon perles was sent to [facility], and ok for patient to take it. Lalo asking provider to send tessalon perles to [facility]. Mucinex DM is a decongestant and an expectorant not a cough suppressant. Does he have chest congestion if so he can take plain Mucinex for that. If they want something for a cough I would say to take Coricidin or we could order Tessalon Perles. Fabby Moore APRN.EZ Lalo, daughter, phoned from [place], to report patient has covid and wants to take OTC cough medicine. Lalo's sister bought Muninex DM 20 ml q4h. Nurses say they cannot give this to patient without a doctor's order. Asking if Dr. Johnson will send order to [facility], so nurses will give him the cough medicine. documented in this encounter [facility] 04-13-2024 Telephone encounter Note I would see if they have higher level care for acute need and agree with extra staff member on the floor. If he was eligible for Paxlovid or Lagevrio would need VV. [facility] 04-12-2024 Telephone encounter Note Call placed to [place], phone just rings and rings. Unable to leave a message. Rosenda Vitale LPN [facility] 04-12-2024 Telephone encounter Note Rx faxed to Miriam. Telephone call placed to [facility] to speak with a nurse. No answer, phone just rings and rings. Call placed to daughter Shadi to make aware that Rx was faxed per her request. Shadi voiced that she wanted provider to be aware that patient fell x3 yesterday due to weakness from being sick. Nothing has been received from Miriam at this time regarding. Patient was sent to [place] because one fall he did hit his head. ER report and imaging printed, placed in PCP inbox. Asking if PCP has any advice for safety measures. [facility]iam did offer to have an extra staff member be on the floor and had family pay for this but this does not guarantee 1:1 care. Is wondering if patient should be moved to a more hands on area for a higher level of care for a short time in this time of need. Shadi instructed to ask [facility]iam if they have a higher level of care for an acute need in the skilled area. Shadi will call and ask tomorrow 04/13. Please advise. Rosenda Vitale LPN [facility] 04-12-2024 Telephone encounter Note Prescription for Tessalon Perles sent to pharmacy. Fabby Moore APRN.[employer] [facility] 04-12-2024 Telephone encounter Note Phoned Lalo and given provider's message below. Reports patient is having a cough, doesn't seem to be having congestion. If he gets congestion she will let provider know. Lalo reports she is a nurse. Also asking provider to send fax to let them know tessalon perles was sent to [facility], and ok for patient to take it. Lalo asking provider to send tessalon perles to [facility]. [facility] 04-12-2024 Telephone encounter Note Mucinex DM is a decongestant and an expectorant not a cough suppressant. Does he have chest congestion if so he can take plain Mucinex for that. If they want something for a cough I would say to take Coricidin or we could order Tessalon Perles. Fabby Moore APRN.EZ [facility] 04-12-2024 Telephone encounter Note Lalo, daughter, phoned from [place], to report patient has covid and wants to take OTC cough medicine. Lalo's sister bought Muninex DM 20 ml q4h. Nurses say they cannot give this to patient without a doctor's order. Asking if Dr. Johnson will send order to [facility], so nurses will give him the cough medicine. [facility] 04-11-2024 Telephone encounter Note Received fax notification from [facility] that patient tested positive for COVID on 04/10/24. PCP noted and asking if patient wanted VV to discuss Paxlovid treatment. Contacted Miriam and charge nurse unavailable. Viticulture Teacher advised she would have her call back in. Jessy Alas LPN [facility] 02-22-2024 Note HNO ID: [id number] Author: NATHALY SPIVEY RN Service: ? Author Type: Registered Nurse Type: Progress Notes Filed: 02/22/2024 12:48 Note Text: [facility] Telephonic Outreach Provider Gena/JUJU Now living in [facility] Denies any new or worsening symptoms Contacted [...] daily weight at home? No Based on assessment manager, the following disposition is advised: No symptoms or symptoms present, not severe. Routed to: No Action Needed YASSINE Education Provided this Outreach: No Nathaly Spivey RN February 22, 2024 12:39 PM [facility] 02-22-2024 History of Present illness Narrative [facility] Telephonic Outreach Provider Gena/JUJU Now living in [facility] Denies any new or worsening symptoms Contacted [...] daily weight at home? No Based on assessment manager, the following disposition is advised: No symptoms or symptoms present, not severe. Routed to: No Action Needed YASSINE Education Provided this Outreach: No Nathaly Spivey RN February 22, 2024 12:39 PM documented in this encounter [facility] 02-22-2024 Note Patient Outreach [place] ATIF COLÓN ([id number]) 1935 M Date Time Provider Department 02/22/24 NATHALY SPIVEY [facility] During your visit today, we recorded the following information about you: Nathaly Spivey RN 02/22/2024 12:48 PM Signed [facility] Telephonic Outreach Provider Action/FYI Now living in [place] assisted living Denies any new or worsening [...] daily weight at home? No Based on assessment manager, the following disposition is advised: No symptoms or symptoms present, not severe. Routed to: No Action Needed YASSINE Education Provided this Outreach: No Nathaly Spivey RN February 22, 2024 12:39 PM Allergies As of Date: 02/22/2024 Noted Allergy Reaction ASPIRIN 09/23/2010 8 - GI Upset PENICILLINS 10/28/2009 2 - Rash Date Reviewed: 10/25/2023 Reviewed by: Rosenda Vitale LPN - Fully Assessed Reason for [...] Encounter Status:Closed by ARANZA GANT on 02/22/24 [facility] 01-24-2024 Note HNO ID: [id number] Author: APARNA VO RN Service: ? Author Type: Registered Nurse Type: Progress Notes Filed: 01/24/2024 15:38 Note Text: [facility] Telephonic Outreach Provider Action/FYI Contacted for: Routine [...] of breath with activity? No Based on assessment manager, the following disposition is advised: No symptoms or symptoms present, not severe. Routed to: No Action Needed YASSINE Education Provided this Outreach: No Aparna Vo RN January 24, 2024 3:38 PM [facility] 01-24-2024 History of Present illness Narrative [facility] Telephonic Outreach Provider Action/FYI Contacted for: Routine [...] of breath with activity? No Based on assessment manager, the following disposition is advised: No symptoms or symptoms present, not severe. Routed to: No Action Needed YASSINE Education Provided this Outreach: No Aparna Vo RN January 24, 2024 3:38 PM documented in this encounter [facility] 01-24-2024 Note Patient Outreach ([facility]) ATIF COLÓN ([id number]) 1935 M Date Time Provider Department 01/24/24 APARNA VO During your visit today, we recorded the following information about you: Aparna Vo RN 01/24/2024 3:38 PM Signed M Telephonic Outreach Provider Action/FYI Contacted for: Routine [...] of breath with activity? No Based on assessment manager, the following disposition is advised: No symptoms or symptoms present, not severe. Routed to: No Action Needed YASSIEN Education Provided this Outreach: No Aparna Vo RN January 24, 2024 3:38 PM Allergies As of Date: 01/24/2024 Noted Allergy Reaction ASPIRIN 09/23/2010 8 - GI Upset PENICILLINS 10/28/2009 2 - Rash Date Reviewed: 10/25/2023 Reviewed by: Rosenda Vitale LPN - Fully Assessed Reason for [...] Encounter Status:Closed by APARNA VO on 01/24/24 [facility] 01-20-2024 Note HNO ID: [id number] Author: NATHALY SPIVEY RN Service: ? Author Type: Registered Nurse Type: Progress Notes Filed: 01/20/2024 13:46 Note Text: [facility] Telephonic Outreach Provider Action/FYI Contacted for: Routine Telephonic Outreach Contact made with patient: No, left message. Nathaly Spivey RN January 20, 2024 1:46 PM [facility] 01-20-2024 History of Present illness Narrative [facility] Telephonic Outreach Provider Action/FYI Contacted for: Routine Telephonic Outreach Contact made with patient: No, left message. Nathaly Spivey RN January 20, 2024 1:46 PM documented in this encounter [facility] 01-20-2024 Note Patient Outreach ([facility] ATIF COLÓN ([id number]) 1935 M Date Time Provider Department 01/20/24 PATRIC, NATHALY [facility] During your visit today, we recorded the following information about you: Nathaly Spivey RN 01/20/2024 1:46 PM Signed [facility] Telephonic Outreach Provider Gena/JUJU Contacted for: Routine Telephonic Outreach Contact made with patient: No, left message. Nathaly Spivey RN January 20, 2024 1:46 PM Allergies As of Date: 01/20/2024 Noted Allergy Reaction ASPIRIN 09/23/2010 8 - GI Upset PENICILLINS 10/28/2009 2 - Rash Date Reviewed: 10/25/2023 Reviewed by: Rosenad Vitale LPN - Fully Assessed Reason for [...] Encounter Status:Closed by NATHALY SPIVEY on 01/20/24 [facility] 12-17-2023 Note HNO ID: [id number] Author: NATHALY SPIVEY RN Service: ? Author Type: Registered Nurse Type: Progress Notes Filed: 12/17/2023 17:33 Note Text: [facility] Telephonic Outreach Provider Action/FYI [...] daily weight at home? No Based on assessment manager, the following disposition is advised: No symptoms or symptoms present, not severe. Routed to: No Action Needed YASSINE Education Provided this Outreach: No Nathaly Spivey RN December 17, 2023 5:32 PM [facility] 12-17-2023 History of Present illness Narrative [facility] Telephonic Outreach Provider Action/FYI Denies any new [...] daily weight at home? No Based on assessment manager, the following disposition is advised: No symptoms or symptoms present, not severe. Routed to: No Action Needed YASSINE Education Provided this Outreach: No Nathaly Spivey RN December 17, 2023 5:32 PM documented in this encounter [facility] 12-17-2023 Note Patient Outreach [place] ATIF COLÓN ([id number]) 1935 M Date Time Provider Department 12/17/23 NATHALY SPIVEY [facility] During your visit today, we recorded the [...] daily weight at home? No Based on assessment manager, the following disposition is advised: No symptoms or symptoms present, not severe. Routed to: No Action Needed YASSINE Education Provided this Outreach: No Nathaly Spivey RN December 17, 2023 5:32 PM Allergies As of Date: 12/17/2023 Noted Allergy Reaction ASPIRIN 09/23/2010 8 - GI Upset PENICILLINS 10/28/2009 2 - Rash Date Reviewed: 10/25/2023 Reviewed by: Rosenda Vitale LPN - Fully Assessed Reason for [...] Encounter Status:Closed by NATHALY SPIVEY on 12/17/23 [facility] 11-19-2023 Note HNO ID: [id number] Author: NATHALY SPIVEY RN Service: ? Author Type: Registered Nurse Type: Progress Notes Filed: 11/19/2023 10:29 Note Text: [facility] Telephonic Outreach Provider Gena/JUJU Spoke to daughter celeste Steele remains at [facility] Contacted for: Routine Telephonic Outreach Contact made [...] daily weight at home? No Based on assessment manager, the following disposition is advised: No symptoms [...] stressful. Can we connect you with a [facility] Health Value Analyst to find a program that could help you meet your goals? No Falls completed:Yes ADL's updated: Yes Are you experiencing any new or worsening symptoms you need to talk about today? [facility] 11-19-2023 History of Present illness Narrative [facility] Telephonic Outreach Provider Rafael Spoke to daughter celeste Steele remains at [facility] Contacted for: Routine Telephonic Outreach Contact made [...] daily weight at home? No Based on assessment manager, the following disposition is advised: No symptoms [...] stressful. Can we connect you with a [facility] Health Value Analyst to find a program that could help you meet your goals? No Falls completed:Yes ADL's updated: Yes Are you experiencing any new or worsening symptoms you need to talk about today? [facility] Telephonic Outreach Provider Action/FYI Contacted for: Routine Telephonic Outreach Contact made with patient: No, left message. Nathaly Spivey RN November 18, 2023 1:10 PM and Goals/Falls/ADL Update Contact made with patient: No, left message. Nathaly Spivey RN November 18, 2023 1:10 PM documented in this encounter [facility] 11-18-2023 Note HNO ID: [id number] Author: NATHALY SPIVEY RN Service: ? Author Type: Registered Nurse Type: Progress Notes Filed: 11/19/2023 10:29 Note Text: [facility] Telephonic Outreach Provider Action/FYI Contacted for: Routine Telephonic Outreach Contact made with patient: No, left message. Nathaly Spivey RN November 18, 2023 1:10 PM and Goals/Falls/ADL Update Contact made with patient: No, left message. Nathaly Spivey RN November 18, 2023 1:10 PM [facility] 11-18-2023 Note Patient Outreach ([facility] ATIF COLÓN ([id number]) 1935 M Date Time Provider Department [facility]/18[facility] [place] During your visit today, we recorded the following information about you: Nathaly Spivey RN 11/19/2023 10:29 AM Signed [facility] Telephonic Outreach Provider Gena/JUJU Contacted for: Routine Telephonic Outreach Contact made with patient: No, left message. Nathaly Spivey RN November 18, 2023 1:10 PM and Goals/Falls/ADL Update Contact made with patient: No, left message. Nathaly Spivey RN November 18, 2023 1:10 PM Nathaly Spivey RN 11/19/2023 10:29 AM Signed [facility] Telephonic Outreach Provider Gena/JUJU Spoke to daughter celeste moreno at [facility] Contacted for: Routine Telephonic Outreach Contact made [...] daily weight at home? No Based on assessment manager, the following disposition is advised: No symptoms [...] stressful. Can we connect you with a [facility] Health Value Analyst to find a program that could help you meet your goals? No Falls completed:Yes ADL's updated: Yes Are you experiencing any new or worsening symptoms you need to talk about today? Allergies As of Date: 11/18/2023 Noted Allergy Reaction ASPIRIN 09/23/2010 8 - GI Upset PENICILLINS 10/28/2009 2 - Rash Date Reviewed: 10/25/2023 Reviewed by: Rosenda Vitale LPN - Fully Assessed Reason for [...] 04/01/2023 Encounter Number: (more content not included)... [facility] 11-03-2023 History of Present illness Narrative [facility] Telephonic Outreach Provider Action/FYI Contacted for: Routine Telephonic Outreach Contact made with patient: No, unable to leave message. Will reattempt call Nathaly Spivey RN November 03, 2023 10:23 AM and Goals/Falls/ADL Update Contact made with patient: No, unable to leave message. Will reattempt call Nathaly Spivey RN November 03, 2023 10:23 AM [facility] Telephonic Outreach Provider Action/FYI Contacted for: Routine Telephonic Outreach Contact made with patient: No, left message. Nathaly Spivey RN November 02, 2023 12:45 PM and Goals/Falls/ADL Update Contact made with patient: No, left message. Nathaly Spivey RN November 02, 2023 12:45 PM documented in this encounter [facility] 10-29-2023 Telephone encounter Note Jossie with Jeanna Duff's office called in and reports provider had wanted Pt to get labs and urine tests done. Pt told them he just had them done here. I faxed over the CMP he had done her to # [phone]. I told her he had some other fairly recent labs but they were done at [facility], she said she would send a release request to them. [facility] 10-29-2023 Miscellaneous Notes Jossie with Jeanna Duff's office called in and reports provider had wanted Pt to get labs and urine tests done. Pt told them he just had them done here. I faxed over the CMP he had done her to # [phone]. I told her he had some other fairly recent labs but they were done at [facility], she said she would send a release request to them. documented in this encounter [facility] 10-25-2023 History of Present illness Narrative [...] documented on his 01/15/2023 discharge paperwork from [facility]. Started on Aricept during hospitalization although he was originally placed on Aricept on 09/19/2015 for mild cognitive impairment, however does not appear he took it long based on documentation I see in EPIC. He adits he can have difficulty recalling names otherwise he feels his clemencia is good. At some point he was told not to drive anymore so he doesn't. MMSE today 2930 Depression: taking Zoloft as prescribed without side [...] hyperplasia) CKD (chronic kidney disease), stage III ([facility]) Dr. Childress DDD (degenerative disc disease), [...] Seen previously by Dr. 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 No Based on assessment manager, the following disposition is advised: No symptoms or symptoms present, not severe. Routed to: No Action Needed YASSINE Education Provided this Outreach: No Nathaly Spivey RN September 27, 2023 2:54 PM documented in this encounter [facility] 08-30-2023 History of Present illness Narrative [facility] Telephonic Outreach Provider Gena/JUJU Spoke to dtr [...] daily weight at home? No Based on assessment manager, the following disposition is advised: No symptoms or symptoms present, not severe. Routed to: No Action Needed YASSINE Education Provided this Outreach: No Nathaly Spivey RN August 30, 2023 9:38 AM documented in this encounter [facility] 08-23-2023 Telephone encounter Note Reviewed. [facility] 08-23-2023 Miscellaneous Notes Reviewed. Pt's daughter is calling to report she would like orders for grief counseling and PT for pt. Daughter reports she would prefer someone that will go to [place] where pt lives. Advised daughter she would need to figure out who she wants for grief counseling and PT and let dr's office know where to fax them. Daughter reports she will need to figure that out and will call back. Future appt: 10/04/23 Savannah Keys LPN documented in this encounter [facility] 08-23-2023 Telephone encounter Note Pt's daughter is calling to report she would like orders for grief counseling and PT for pt. Daughter reports she would prefer someone that will go to [place] where pt lives. Advised daughter she would need to figure out who she wants for grief counseling and PT and let dr's office know where to fax them. Daughter reports she will need to figure that out and will call back. Future appt: 10/04/23 Savannah Keys LPN [facility] 07-30-2023 History of Present illness Narrative [facility] Telephonic Outreach Provider Gena/JUJU Spoke to dtr [...] daily weight at home? No Based on assessment manager, the following disposition is advised: No symptoms or symptoms present, not severe. Routed to: No Action Needed YASSINE Education Provided this Outreach: No Nathaly Spivey RN July 30, 2023 1:25 PM documented in this encounter [facility] 07-23-2023 Miscellaneous Notes Records received and placed on providers desk for review. To date records not received phone call to Dr Angulo's office and spoke with hospital receptionist who will be forwarding records from 07/14/23 OV. Request forwarded to Dr Angulo's office for records. Contacted by patient's airplane patroller Dr. Angulo with the message below. It [...] shows protein. When I see labs from [facility] he has a serum and urine immunofixation [...] Myeloma evaluation. Please call if any questions. [phone]. Moris Angulo documented in this encounter [facility] 07-05-2023 History of Present illness Narrative [...] Abs Lymph 1.00 - 4.00 k/uL 2.13 Cole% % 9.2 Abs Cole <0.87 k/uL 0.76 Eosin% % 0.5 Abs [...] Jordan Johnson MD documented in this encounter [facility] 05-19-2023 Miscellaneous Notes Telephone call placed to [facility], spoke with nurse Lyman. Verbal order given for patient from Fabby Moore CNP for lumbar spine xray 3 views. Rosenda Vitale LPN Please call [facility] and let them know alright for XR lumbar spine. If his pain persists will need office appointment for evaluation Fabby Moore APRN.EZ documented in this encounter [facility] 05-06-2023 History of Present illness Narrative [facility] Telephonic Outreach Provider Action/FYI Contacted for: Routine Telephonic Outreach Contact made with patient: No, left message. Nathaly Spivey RN May 06, 2023 12:49 PM documented in this encounter [facility] 04-19-2023 History of Present illness Narrative [facility] Telephonic Outreach Provider Action/FYI Second attempt Contacted for: Routine Telephonic Outreach Contact made with patient: No, left message. Nathaly Spivey RN April 19, 2023 12:40 PM documented in this encounter [facility] 04-12-2023 Miscellaneous Notes Sadaf telephoned. Gave verbal to discontinue PRN and to continue scheduled. Rosenda Vitale LPN Cancel the PRN. Continue Scheduled 10 mg melatonin qhs. Sadaf Pharmacist with [facility] called in and reports Pt has Melatonin 10 mg routine scheduled and someone called a Melatonin 10 mg PRN to [facility] the care home. She states the max dose allowed of Melatonin is 12 mg, so if the routine and PRN were given together he would get 20 mg. She is asking to have one of those discontinued. She said you can call the main number and her extension and leave a VM, or call main number and ask for a pharmacist. documented in this encounter [facility] 04-01-2023 History of Present illness Narrative [...] repeat labs since he was discharged from [facility] in February. Admits to adding salt to [...] which included preparing to see the patient, [id number] patient care, completing clinical documentation, obtaining and/or reviewing separately obtained history, performing a medically appropriate examination, counseling and educating the patient/family/caregiver, ordering medications, tests, or procedures, independently interpreting results (not separately reported), and communicating results to the patient/family/caregiver. Jordan Johnson MD documented in this encounter [facility] 03-28-2023 Miscellaneous Notes Reason for Call: [...] is agreeable to the plan. Transferred to [facility] at the appointment center for scheduling. [...] actively dying. Protocols used: Anxiety and Panic [id number] documented in this encounter [facility] 03-18-2023 History of Present illness Narrative [facility] Telephonic Outreach Provider Action/FYI CKD outreach [...] does not have a scale Based on assessment manager, the following disposition is advised: No symptoms or symptoms present, not severe. Routed to: No Action Needed YASSINE Education Provided this Outreach: No Deirdre Rivas RN March 18, 2023 3:52 PM documented in this encounter [facility] 03-04-2023 History of Present illness Narrative [facility] NAVIGATION OUTREACH Action/FYI 1st attempt- lvm home number and sent [employer] to schedule follow up appt virtualist visit. [...] Outcome/Action Unable to reach patient: Left message [employer] message sent Did you use a PCP flex slot to schedule this appointment? N/A Reason for Outreach Community Monitoring Pool Payer: Payor: [employer] MEDICARE / Plan: [employer] MEDICARE PPO / Product Type: PPO / Care Gap Reviewed:: Follow-up appointment Reminder: Reminder note to check Health Maintenance for items below Health Maintenance items due: Shingrix Vaccine(2 of 3) due on 08/02/2009 Advance Directive Discussion Never done Covid-19 Vaccine(7 - Moderna series) due on 07/17/2022 Influenza Vaccine(1) due on 02/05/2023 Navigation Signature[facility] March 04, 2023 2:05 PM Electronically signed by [facility] Navigator, Jaja Pickett at 03/04/2023 2:07 PM EDT [facility] ESCALATION Provider Action / FYI: Navigators please [...] . Discussed care with patient Based on assessment manager the following disposition is advised: No symptoms [...] needs, concerns, or questions at this time. Glenna Martinez RN March 04, 2023 1:49 PM documented in this encounter [facility] 03-03-2023 History of Present illness Narrative [facility] Telephonic Outreach Provider Action/FYI Virtualist paged Pt complaining of increased cough, chest congestion, Wheezing, and coughing up White phlegm for 2 days. He is taking Mucinex without benefit. Pt agrees to speak with virtualist. Pt denies any fever, chills, or sob. Time Stamp: 03/03/2023 2:46 PM CLOSE Pagers Name Pager Type Status OK Primary Virtualist Pager [phone] Alpha Sent Contacted for: Routine Telephonic Outreach Contact made with patient: Yes Patient identified by name and date of . Discussed care with patient Are you experiencing any new or worsening symptoms you need to talk about today? Yes Based on assessment manager, the following disposition is advised: Sent to virtualist. Pt complaining of increased cough, chest congestion, Wheezing, and coughing up White phlegm for 2 days. He is taking Mucinex without benefit. Pt agrees to speak with virtualist. Pt denies any fever, chills, or sob. Glenna Martinez RN March 03, 2023 2:38 PM documented in this encounter [facility] 02-11-2023 History of Present illness Narrative Chief Complaint Patient presents with: Transition Of Care HPI Atif Colón is a 87 year old male who presents here today for Hospital Discharge Follow up. Accompanied today by daughter Sindy. Patient admitted to [facility] from 02/04 to 02/06 for possible sepsis [...] hypotension. Lisinopril also held. Discharged back to [facility] living. Hemoglobin down to 10.1 prior [...] PNEUMOCOCCAL: 65+ Completed Data reviewed Labs from [facility] admission 02/04-02/06. ASSESSMENT/PLAN: 1. Acute cystitis without [...] which included preparing to see the patient, [id number] patient care, completing clinical documentation, obtaining and/or reviewing separately obtained history, performing a medically appropriate examination, counseling and educating the patient/family/caregiver, ordering medications, tests, or procedures, and independently interpreting results (not separately reported). Jordan Johnson MD documented in this encounter [facility] 02-10-2023 Miscellaneous Notes Spoke with Celeste, patient r/s to [address] Johnson. Yoshi Ridley MA This patient is on with Fabby tomorrow for TCM. Is there any way he could go in my 4 and 4:20 slot or could we swap patients at the same time so I can see him instead? documented in this encounter [facility] 02-09-2023 History of Present illness Narrative Reviewed. Spoke with daughter, Celeste, regarding getting patient in for TCM visit this week. She stated she is going to review patient's discharge paperwork 1st then will call back to schedule appointment. Advised her PCP is out next week but Fabby is in. She voiced understanding. TRANSITION CARE MANAGEMENT (TCM) INITIAL CONTACT [employer] Outreach Provider Action/FYI: Pt is scheduled for apt 02-11-23 Initial contact with patient post discharge, spoke to daughter. Patient identified by name and . TRANSITION CARE MANAGEMENT INITIAL OUTREACH DOCUMENTATION: No flowsheet data found. SUMMARY: -Pt discharged from [facility] on 02/06/23. -Admitted for: Weakness, UTI and [...] provider for review. documented in this encounter [facility] 02-04-2023 History of Present illness Narrative Chief Complaint Patient presents with: Hospital Follow Up: Discharged [facility] 02/02/23 Gastric Ulcer & polyp HPI Atif Colón is a 87 year old male who presents here today for Hospital Discharge Follow up. Accompanied today by daughter Sindy. Patient admitted to [facility] from 01/29 to 02/02 for LOKI and [...] for dementia. Discharged to assisted living at [place] with . Recommending f/u with our office in [address] Carey's office in 1 month. Since discharge, [...] to take him across the street to [facility]. Report sent Via [facility] [employer] and patient's [...] ICD9: 458.8, ICD10: I95.89 See above. 6. Maryse Baeza 1 - ICD9: 426.13, ICD10: I44.1 See above. I spent a total of 45 minutes on the date of the service which included preparing to see the patient, cuca-rz-[id number] patient care, completing clinical documentation, obtaining and/or reviewing separately obtained history, performing a medically appropriate examination, counseling and educating the patient/family/caregiver, ordering medications, tests, or procedures, independently interpreting results (not separately reported), and communicating results to the patient/family/caregiver. Jordan Johnson MD documented in this encounter [facility] 02-04-2023 History of Present illness Narrative [...] 2023 11:47 AM documented in this encounter [facility] 02-02-2023 Progress note Note Date/Time February 02, 2023 4:24pm [facility] Medical Records Department [address] [place] [address] Progress Note - GI 02/02/23 0800 MR#: [id number] Acct: [id number] Name: ATIF COLÓN Rep #:[id number] : 1935 87 From: Aden Friend PCP: Dr. Jaime Johnson MD Status :ADM IN Location: MS3 TC853-7 Subjective Subjective Patient is up and sitting in chair. Denies any needs at this time. He has beensleeping on and off today. Objective Data Objective Data Vital Signs: Vital Signs Temp Pulse Resp BP Pulse Ox O2 Del Method 98 F 54 L 18 100/54 L 98 Room Air 02/02/23 15:14 02/02/23 15:14 02/02/23 15:14 02/02/23 15:14 02/02/23 15:14 02/02/23 15:14 Oxygen Delivery Method Room Air Weight: 172 lb 9.951 oz Body Mass Index (BMI) 27.1 Intake & Output: Intake and Output for Last 24 Hours 01/31/23 02/01/23 02/02/23 23:59 23:59 23:59 Intake Total 810 / 910 330 / 450 220 / 220 Output Total 1700 / 1700 400 / 1000 1600 / 1600 Balance -890 / -790 -70 / -550 -1380 / -1380 Lab / Micro Data 02/01/23 05:47 02/01/23 05:47 Micro: Microbiology 01/29/23 22:20 Stool Stool Occult Blood (ABBIE) - Final Physical Exam Const alert, no apparent distress and average body habitus General Appearance: cooperative, well kempt and well developed Orientation / Consciousness: awake, oriented to person and oriented to place HEENT normocephalic, head/scalp atraumatic and moist oral mucous membranes Eyes PERRL, EOMs intact bilaterally and conjunctivae normal Neck supple, no JVD, thyroid normal and no carotid bruits General: trachea midline Resp normal respiratory effort, no retractions, no use of accessory muscles and clearto auscultation bilaterally Auscultation: Negative for rales, rhonchi or wheezes Cardio regular rate, regular rhythm, S1 normal heart sound, S2 normal heart sound, no murmurs, no rub and no gallops GI normal to inspection, nondistended, normoactive bowel sounds, soft to palpation,non-tender and non-distended Extremity no clubbing, cyanosis or edema Skin no rashes or lesions noted General Skin Exam: no breakdown Neuro oriented x3, CN's II-XII intact bilaterally, moves all extremities, no focal motor deficits and no sensory deficits noted Sensorium / Orientation: awake, alert, oriented to person and oriented to place Speech: speech normal Psych affect normal Assessment & Plan Assessment/Plan (1) Abdominal pain: QUALIFIERS: Abdominal location: generalized Qualified Code(s): R10.84 - Generalized abdominal pain PLAN: Plan The patient is an 87 y/o M w/ PMHx: CKD stage IIIb, HTN, HLD, BPH, Chronic anemia/Fe deficiency anemia, Chronic Bradycardia, GERD who presents to the [facility] ED on 01/29/23 with history of decreased oral intake for at least the last 3 days with associated nausea Abdominal Pain with nausea, decreased oral intake, CT abdomen pelvis with possible gastric ulcer with otherwise no acute findings, hemoglobin 12.4 and is down to 10.3. -01/30/23 EGD with noted chronic gastritis which was biopsied as well as a nonbleeding gastric ulcer with pigmented material treated with argon plasma coagulation as well as a single duodenal polyp that was resected and retrieved with initiation of sucralfate 1 g p.o. 4 times daily, Protonix continued regimenwith transition amenable to 40 mg p.o. daily as well as avoidance of any aspirin/ibuprofen/naproxen or other NSAID drugs. Anemia, chronic since most recent admission, currently macrocytic on Chronic FeDeficiency anemia:l continue to avoid any aspirin/ibuprofen/naproxen or other NSAID drugs. -02/02/23-no signs or symptoms of needing to time. Anticoagulation is still on hold. I will give him iron transfusion prior to him being hospital. Continue PPI therapy as previously ordered. Charges/Coding Visit Charges Inpatient E&M: 17696 Subs Hosp L3 02/02/23 1624 <Electronically signed by Aden Carey DO> Cosigner Signature (if applicable): CC: ~ Signed [facility] Work Phone: 1(371) 414-689408-28-2023 Progress note Author Aden Carey [facility] February 01, 2023 7:41pm Note Date/Time February 01, 2023 7: 41pm [facility] Medical Records Department [address] [place] [address] Progress Note - GI 02/01/231936 MR#: [id number] Acct: [id number] Name: ATIF COLÓN Rep #:[id number] : 1935 87 From: Aden Carey DO PCP: Dr. Jaime Johnson MD Status :ADM IN Location: MS3 [id number] Subjective Subjective No events overnight. He is tolerating a diet. No signs of GI bleeding. Objective Data Objective Data Vital Signs: Vital Signs Temp Pulse Resp BP Pulse Ox O2 Del Method 98.2 F 68 18 131/50 H 100 Room Air 02/01/23 16:09 02/01/23 16:09 02/01/23 16:09 02/01/23 16:09 02/01/23 16:09 02/01/23 16:11 Oxygen Delivery Method Room Air Weight: 173 lb 1.006 oz Body Mass Index (BMI) 27.1 Intake & Output: Intake and Output for Last 24 Hours 01/30/23 01/31/23 02/01/23 23:59 23:59 23:59 Intake Total 2397.00 / 2647.00 810 / 910 330 / 330 Output Total 950 / 1250 1700 / 1700 400 / 400 Balance 1447.00 / 1397.00 -890 / -790 -70 / -70 Lab / Micro Data 02/01/23 05:47 02/01/23 05:47 Labs: Laboratory Results - last 24 hr 01/31/23 11:50: Vitamin B12 804 02/01/23 05:47: WBC 8.5, RBC 3.06 L, Hgb 10.3 L, Hct 31.3 L, MCV 102.3 H, MCH 33.7 H, MCHC 32.9 D, RDW Std Deviation 51.5 H, RDW Coeff of Donald 13.6, Plt [id number], MPV 11.2, Immature Gran % (Auto) 0.200, Neut % (Auto) 66.8, Lymph % (Auto) 21.2, Cole % (Auto) 7.5, Eos % (Auto) 3.9, Baso % (Auto) 0.4, Absolute Neuts (auto) 5.7, Absolute Lymphs (auto) 1.81, Nucleated RBC % 0, Sodium 135 L, Potassium 3.2 L, Chloride 104, Carbon Dioxide 24.0, Anion Gap 7, BUN 23 H, Creatinine 1.21, Estim Creat Clear Calc 40.28, Est GFR (MDRD) Af Amer 73, Est GFR (MDRD) Non-Af 61, BUN/Creatinine Ratio 19.0, Glucose 95, Calcium 8.3 L, Total Bilirubin 0.80, AST 15, ALT 23, Alkaline Phosphatase 105, Total Protein 6.1 L, Albumin 2.7 L, Globulin 3.4, Albumin/Globulin Ratio 0.8 L Micro: Microbiology 01/29/23 22:20 Stool Stool Occult Blood (ABBIE) - Final Physical Exam Const alert, no apparent distress and average body habitus General Appearance: cooperative, well kempt and well developed Orientation / Consciousness: awake, oriented to person and oriented to place HEENT normocephalic, head/scalp atraumatic and moist oral mucous membranes Eyes PERRL, EOMs intact bilaterally and conjunctivae normal Neck supple, no JVD, thyroid normal and no carotid bruits General: trachea midline Resp normal respiratory effort, no retractions, no use of accessory muscles and clearto auscultation bilaterally Auscultation: Negative for rales, rhonchi or wheezes Cardio regular rate, regular rhythm, S1 normal heart sound, S2 normal heart sound, no murmurs, no rub and no gallops GI normal to inspection, nondistended, normoactive bowel sounds, soft to palpation,non-tender and non-distended Extremity no clubbing, cyanosis or edema Skin no rashes or lesions noted General Skin Exam: no breakdown Neuro oriented x3, CN's II-XII intact bilaterally, moves all extremities, no focal motor deficits and no sensory deficits noted Sensorium / Orientation: awake, alert, oriented to person and oriented to place Speech: speech normal Psych affect normal Assessment & Plan Assessment/Plan (1) Abdominal pain: QUALIFIERS: Abdominal location: generalized Qualified Code(s): R10.84 - Generalized abdominal pain PLAN: Plan The patient is an 87 y/o M w/ PMHx: CKD stage IIIb, HTN, HLD, BPH, Chronic anemia/Fe deficiency anemia, Chronic Bradycardia, GERD who presents to the [facility] ED on 01/29/23 with history of decreased oral intake for at least the last 3 dayswith associated nausea Abdominal Pain with nausea, decreased oral intake, CT abdomen pelvis with possible gastric ulcer with otherwise no acute findings, hemoglobin 12.4 and is down to 10.3. -01/30/23 EGD with noted chronic gastritis which was biopsied as well as a nonbleeding gastric ulcer with pigmented material treated with argon plasma coagulation as well as a single duodenal polyp that was resected and retrieved with initiation of sucralfate 1 g p.o. 4 times daily, Protonix continued regimenwith transition amenable to 40 mg p.o. daily as well as avoidance of any aspirin/ibuprofen/naproxen or other NSAID drugs. Anemia, chronic since most recent admission, currently macrocytic on Chronic FeDeficiency anemia:l continue to avoid any aspirin/ibuprofen/naproxen or other NSAID drugs. Charges/Coding Visit Charges Inpatient E&M: 77065 Subs Hosp L3 02/01/231940 <Electronically signed by Aden Carey DO> Cosigner Signature (if applicable): CC: ~ Signed [facility] Work Phone: 1(361) 624-510008-28-2023 Progress note Author Vic Cummings [facility] February 01, 2023 6:26pm Note Date/Time February 01, 2023 6: 24pm [facility] Medical Records Department [address] [place] [address] Progress Note - Hospitalist 02/01/231817 MR#: [id number] Acct: [id number] Name: ATIF COLÓN Rep #:[id number] : 1935 87 From: Vic Cummings DO PCP: Dr. Jaime Johnson MD Status :ADM IN [facility] Reason for Visit Reason for Visit: Diagnoses Anemia, unspecified (01/29/23) Dehydration (01/29/23) Acute kidney failure, unspecified (01/29/23) Unspecified abdominal pain (01/29/23) Abnormal findings on diagnostic imaging of other abdominal regions, including retroperitoneum (01/29/23) Subjective Subjective Patient was seen and examined today, talk with his and daughter who was in his room at the time my examination, patient was on a clear liquid diet over theweekend, I changed him to a regular diet today. We are currently awaiting word on whether [facility] assisted living will take the patient back to their facility. Objective Data Objective Data Vital Signs: Vital Signs Temp Pulse Resp BP Pulse Ox O2 Del Method 98.2 F 68 18 131/50 H 100 Room Air 02/01/23 16:09 02/01/23 16:09 02/01/23 16:09 02/01/23 16:09 02/01/23 16:09 02/01/23 16:11 Oxygen Delivery Method Room Air Weight: 78.5 kg Body Mass Index (BMI) 27.1 Intake & Output: Intake and Output for Last 24 Hours 01/30/23 01/31/23 02/01/23 23:59 23:59 23:59 Intake Total 2397.00 / 2647.00 810 / 910 330 / 330 Output Total 950 / 1250 1700 / 1700 400 / 400 Balance 1447.00 / 1397.00 -890 / -790 -70 / -70 Lab / Micro Data 02/01/23 05:47 02/01/23 05:47 Labs: Laboratory Results - last 24 hr 01/31/23 11:50: Vitamin B12 804 02/01/23 05:47: WBC 8.5, RBC 3.06 L, Hgb 10.3 L, Hct 31.3 L, MCV 102.3 H, MCH 33.7 H, MCHC 32.9 D, RDW Std Deviation 51.5 H, RDW Coeff of Donald 13.6, Plt [id number], MPV 11.2, Immature Gran % (Auto) 0.200, Neut % (Auto) 66.8, Lymph % (Auto) 21.2, Cole % (Auto) 7.5, Eos % (Auto) 3.9, Baso % (Auto) 0.4, Absolute Neuts (auto) 5.7, Absolute Lymphs (auto) 1.81, Nucleated RBC % 0, Sodium 135 L, Potassium 3.2 L, Chloride 104, Carbon Dioxide 24.0, Anion Gap 7, BUN 23 H, Creatinine 1.21, Estim Creat Clear Calc 40.28, Est GFR (MDRD) Af Amer 73, Est GFR (MDRD) Non-Af 61, BUN/Creatinine Ratio 19.0, Glucose 95, Calcium 8.3 L, Total Bilirubin 0.80, AST 15, ALT 23, Alkaline Phosphatase 105, Total Protein 6.1 L, Albumin 2.7 L, Globulin 3.4, Albumin/Globulin Ratio 0.8 L Micro: Microbiology 01/29/23 22:20 Stool Stool Occult Blood (ABBIE) - Final Physical Exam Const alert, no apparent distress and average body habitus General Appearance: cooperative, well kempt and well developed Orientation / Consciousness: awake, oriented to person and oriented to place HEENT normocephalic, head/scalp atraumatic and moist oral mucous membranes Eyes PERRL, EOMs intact bilaterally and conjunctivae normal Neck supple, no JVD, thyroid normal and no carotid bruits General: trachea midline Resp normal respiratory effort, no retractions, no use of accessory muscles and clearto auscultation bilaterally Auscultation: Negative for rales, rhonchi or wheezes Cardio regular rate, regular rhythm, S1 normal heart sound, S2 normal heart sound, no murmurs, no rub and no gallops GI normal to inspection, nondistended, normoactive bowel sounds, soft to palpation,non-tender and non-distended Extremity no clubbing, cyanosis or edema Skin no rashes or lesions noted General Skin Exam: no breakdown Neuro oriented x3, CN's II-XII intact bilaterally, moves all extremities, no focal motor deficits and no sensory deficits noted Sensorium / Orientation: awake, alert, oriented to person and oriented to place Speech: speech normal Psych affect normal Assessment & Plan Assessment/Plan (1) Abdominal pain: PLAN: Plan 1. Gastric ulcer with abdominal pain-patient's diet will be advanced today, he was placed on oral Protonix today, will monitor, evaluate, assess, and treat #2 dehydration-patient's creatinine was 2.5 on admission, his creatinine today was 1.21, continue to monitor, evaluate, assess, and treat #3 essential hypertension-patient will remain on amlodipine, lisinopril, and carvedilol, will monitor, assess, evaluate, and treat #4 dementia-patient is currently on Aricept, will monitor, evaluate, assess, andtreat Total clinical time spent by myself addressing the patient's medical issues, reviewing all of his data, and collaborating with patient's care team: 25 minutes Acute kidney injury was ruled out Charges/Coding Visit Charges Inpatient E&M: 60388 Subs Hosp L1 02/01/230 <Electronically signed by Vic Cummings DO> Cosigner Signature (if applicable): CC: ~ Signed [facility] Work Phone: 1(232) 948-865708-27-2023 Progress note Author Aletha Malcolm [facility] January 31, 2023 12:55pm Note Date/Time January 31, 2023 6: 19am [facility] Medical Records Department [address] [place] [address] Progress Note - Hospitalist 01/31/23615 MR#: [id number] Acct: [id number] Name: ATIF COLÓN Rep #:[id number] : 1935 87 From: Aletha Malcolm MD PCP: Dr. Jaime Johnson MD Status :ADM IN [facility] Reason for Visit Reason for Visit: Diagnoses Anemia, unspecified (01/29/23) Dehydration (01/29/23) Acute kidney failure, unspecified (01/29/23) Unspecified abdominal pain (01/29/23) Abnormal findings on diagnostic imaging of other abdominal regions, including retroperitoneum (01/29/23) Subjective Subjective Patient today reporting abdominal discomfort and nausea although overnight no issues per nursing report. Given this discussed plan for transition to clears and continue IV PPI in the interim until clinically improving. He had refused adamantly labs this morning but talked at length and he is willing to have his renal function and his hemoglobin levels assessed at this time. Patient denies fevers, chills, nausea, chest pain or dyspnea. Objective Data Objective Data Vital Signs: Vital Signs Temp Pulse Resp BP Pulse Ox O2 Del Method 97.6 F L 96 18 130/60 H 97 Room Air 01/31/23 03:12 01/31/23 03:12 01/31/23 03:12 01/31/23 03:12 01/31/23 03:12 01/31/23 03:12 Oxygen Delivery Method Room Air Weight: 173 lb 1.006 oz Body Mass Index (BMI) 27.1 Intake & Output: Intake and Output for Last 24 Hours 01/29/23 01/30/23 01/31/23 23:59 23:59 23:59 Intake Total 1035 / 1035 2397.00 / 2647.00 450 / 450 Output Total 950 / 1250 700 / 700 Balance 1035 / 1035 1447.00 / 1397.00 -250 / -250 Lab / Micro Data 01/30/23 04:50 01/30/23 04:50 Labs: Laboratory Results - last 24 hr 01/30/23 04:50: Sodium 137, Potassium 4.1, Chloride 103, Carbon Dioxide 25.0, Anion Gap 9, BUN 37 H, Creatinine 2.42 H, Estim Creat Clear Calc 20.14, Est GFR (MDRD) Af Amer 33 L, Est GFR (MDRD) Non-Af 27 L, BUN/Creatinine Ratio 15.3, Glucose 94, Calcium 8.5, Phosphorus 4.1, Magnesium 2.0, TSH 1.82 Micro: Microbiology 01/29/23 22:20 Stool Stool Occult Blood (ABBIE) - Final Physical Exam Narrative Physical Examination: General: Awake, alert, oriented to self, place and race events, today initially very adamant against lab draws, discussed at length and now willing, fatigued appearing, reporting some nausea and abdominal cramping. Skin: Normal color, normal turgor, no icterus, no cyanosis except occasional staged ecchymoses. HEENT: AT/NC, EOMI, PERRLA, mildly dry MM. Lungs: C mildly diminished, greater bases, proper effort, no rales, ronchi or wheezing. Heart: Regular rate and rhythm; no gallop, rub audible. Abdomen: Soft, generalized discomfort but very hesitant to have any feels abdomen, no marked distention, hyperactive BS, Mcclendon in place. Extremities: No cyanosis, clubbing, or edema. Neurological: Patient awake, alert, oriented as noted, cognitive function intact; pupils equally reactive to light and accommodation, cranial nerves II-XII grossly normal, moving all 4 extremities, no focal deficits, strength moderately to severely global decreased. Psychiatric: Affect appears mildly irritable today, no acute evidence of depressive or anxiety feelings. Assessment & Plan Assessment/Plan (1) Abdominal pain: PLAN: Plan The patient is an 87 y/o M w/ PMHx: CKD stage IIIb, HTN, HLD, BPH, Chronic anemia/Fe deficiency anemia, Chronic Bradycardia, Dementia unclear type with unclear behavioral disturbance history, Monoclonal gammopathy, GERD who [facility] with history of decreased oral intake for at least the last 3 days with associated nausea without emesis with last BM 2 days prior withongoing generalized abdominal pain prompting ED evaluation. #1. Intractable Abdominal Pain with nausea, decreased oral intake, suspected Gastric etiology, possibly Ulcer: Negative guaiac however CT abdomen pelvis withpossible gastric ulcer with otherwise no acute findings, admission hemoglobin 12.4, repeat this morning 01/30/23 Hgb 11.1 which is similar to his baseline from12/29/2022 onward, maintained on continuous PPI infusion, 01/30/23 EGD with noted chronic gastritis which was biopsied as well as a nonbleeding gastric ulcer withpigmented material treated with argon plasma coagulation as well as a single duodenal polyp that was resected and retrieved with initiation of sucralfate 1 gp.o. 4 times daily, Protonix continued regimen with transition amenable to 40 mgp.o. daily as well as avoidance of any aspirin/ibuprofen/naproxen or other NSAIDdrugs. Completed PPI infusion 01/30/23 9 PM-->transitioned to daily PPI oral regimen. Overnight into 01/31/2023 unfortunately patient with decreased intake with complaint of abdominal cramping and nausea, will transition to clear liquidsand avoid advancing diet, will also transition back to IV PPI until clinically improving and discussed administration of antiemetic with patient. Patient has been very resistant to lab repeat check however now amenable with CBC requested and awaiting lab draw. #2. Acute kidney injury on CKD stage IIIb: Secondary to poor oral intake coupled with possibly nephrotoxic medication. Admission BUN/Cr 39/2.50, prior baseline creatinine noted to be primarily 1.1-1.4, 01/30/2023 BUN/creatinine to 37/2.42-->01/31/23 pending as patient had initially adamantly refused labs, now willing. Continue judicious hydration with noted acute presentation #1, holding diuretics as well as lisinopril, continue to trend and if worsens or not improving low threshold to obtain FeNa/renal consultation. #3. Anemia, chronic since most recent admission, currently macrocytic on Chronic Fe Deficiency anemia: Guaiac negative at the end of December, repeat guaiac here negative, admission hemoglobin 12.4, MCV 98.4, 01/30/2023 Hgb 11.1, MCV 100.6, trended down since December admission, CT as noted with possible ulceration withconcern for gastric ulcer. Vitamin B12 1669 and folic acid levels 43.20. 01/30/23EGD with noted chronic gastritis which was biopsied as well as a nonbleeding gastric ulcer with pigmented material treated with argon plasma coagulation as well as a single duodenal polyp that was resected and retrieved. As noted above unfortunately patient with abdominal cramping, nausea 02/01/2020 3 AM, transitiondown to clears until improving with continued sucralfate and will transition back to IV PPI until sure appropriate oral intake. Per GI will continue to avoid any aspirin/ibuprofen/naproxen or other NSAID drugs. #4. Debility, generalized weakness, adult failure to thrive: Likely contributedto by acute presentation as noted #1, #2, #3, maintain on fall precautions, PT and OT consultations requested as well as case management for possible skilled transition, family does not want patient to return to [facility] of note and would prefer other facility. #5. BPH with urinary retention: Continue patient home finasteride and terazosinregimen, Mcclendon catheter currently in place, will attempt discontinuation 01/31/2023 with continued close monitoring. If again he has recurrent may consider also adding Flomax but again he is already on dual agents thus could consider leaving in place and having him follow-up with urology outpatient if this becomes an issue. #6. Hypokalemia: Admission K+ 3.4, supplementation given, repeat level 01/30/23 4.1, 01/31/23 pending as patient initially adamantly refusing labs, now amenable,requested lab to come draw now. #7. 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 #8. Dementia, unclear type with reported behavioral disturbance history: We will continue home Aricept regimen, complicates presentation, PT/OT/case management consulted for discharge planning, maintain on fall and aspiration precautions. #9. Chronic bradycardia: Stable, asymptomatic, will continue beta-deondre therapy and may add hold parameters as needed. #10. Monoclonal gammopathy: Following with Dr. Magana, hematology/oncology, notedkappa light chain present, encourage continued outpatient follow-up. #11. GERD: As noted given presentation currently maintained on Protonix. #12. Hypertension: Continue home regimen including Coreg, given low BP temporally holding amlodipine as well as any nephrotoxic medications, PRN hydralazine. #13. DVT prophylaxis: SCDs. #14. CODE STATUS: DNR-CCA, no intubation. Charges/Coding Visit Charges Inpatient E&M: 39783 Subs Hosp L2 01/31/23 1131 <Electronically signed by Aletha Malcolm MD> Cosigner Signature (if applicable): CC: ~ Signed ADDENDUM by Dr. Aletha Malcolm MD on 01/31/23 at 1255 Addendum CMP resulted with potassium 3.3, BUN/creatinine 27/1.35, improved from prior, will initiate oral supplements. CBC still pending. 01/31/23 1255<Electronically signed by Aletha Malcolm MD> Cosigner Signature (if applicable): cc: ~* Signed [facility] Work Phone: 1(717) 805-743808-27-2023 Progress note Author Aden Carey [facility] January 31, 2023 10:09am Note Date/Time January 31, 2023 10 :10am [facility] Medical Records Department [address] [place] [address] Progress Note - GI 01/31/23 1006 MR#: [id number] Acct: [id number] Name: ATIF COLÓN Rep #:[id number] : 1935 87 From: Aden Carey DO PCP: Dr. Jaime Johnson MD Status :ADM IN Location: [place] [address] Subjective Subjective Patient is status post EGD for anemia and abnormal imaging. No problems overnight. He is tolerating a diet. Objective Data Objective Data Vital Signs: Vital Signs Temp Pulse Resp BP Pulse Ox O2 Del Method 97.6 F L 96 18 130/60 H 98 Room Air 01/31/23 03:12 01/31/23 03:12 01/31/23 03:12 01/31/23 03:12 01/31/23 07:59 01/31/23 07:59 Oxygen Delivery Method Room Air Weight: 173 lb 1.006 oz Body Mass Index (BMI) 27.1 Intake & Output: Intake and Output for Last 24 Hours 01/29/23 01/30/2323 23:59 23:59 23:59 Intake Total 1035 / 1035 2397.00 / 2647.00 450 / 450 Output Total 950 / 1250 700 / 700 Balance 1035 / 1035 1447.00 / 1397.00 -250 / -250 Lab / Micro Data 01/30/23 04:50 01/30/23 04:50 Micro: Microbiology 01/29/23 22:20 Stool Stool Occult Blood (ABBIE) - Final Assessment & Plan Assessment/Plan (1) Dehydration: (2) Abdominal pain: (3) Anemia: (4) Acute kidney injury: (5) Abnormal CT of the abdomen: PLAN: Plan Abdominal pain/nausea -CT is suggestive of gastric ulcer and with recent drop in hemoglobin from previous baseline. EGD showed a gastric ulcer which was treated endoscopically -He is off of the Protonix drip and was transitioned to p.o. Protonix. Continuethat for 8 weeks. He will need a repeat upper endoscopy to make sure everythingis healed up. Await the biopsies from the duodenal polyp that was removed. Anemia -Patient was guaiac negative at the end of December -Repeat guaiac is pending -Hemoglobin was been dropping -Gastric ulceration on EGD with thickening - Charges/Coding Visit Charges Inpatient E&M: 34666 Subs Hosp L3 01/31/23 1009 <Electronically signed by Aden Carey DO> Cosigner Signature (if applicable): CC: ~ Signed [facility] Work Phone: 1(607) 372-336708-26-2023 Progress note Author Aletha Malcolm [facility] January 30, 2023 4:16pm Note Date/Time January 30, 2023 7: 19am [facility] Medical Records Department [address] [place] [address] Progress Note - Hospitalist 01/30/23717 MR#: [id number] Acct: [id number] Name: ATIF COLÓN Rep #:[id number] : 1935 87 From: Aletha Malcolm MD PCP: Dr. Jaime Johnson MD Status :ADM IN Location: [place] [address] Reason for Visit Reason for Visit: Diagnoses Anemia, unspecified (01/29/23) Dehydration (01/29/23) Acute kidney failure, unspecified (01/29/23) Unspecified abdominal pain (01/29/23) Abnormal findings on diagnostic imaging of other abdominal regions, including retroperitoneum (01/29/23) Subjective Subjective Patient's status post EGD with evident of chronic gastritis which was biopsied as well as a nonbleeding gastric ulcer treated with argon plasma coagulation jamie single duodenal polyp that was restricted. He notes abdominal discomfort has certainly lessened since then and he has been placed on a transitional diet therefore will initiate oral intake at this time. Patient notes upon evaluationnecessity to urinate however reported to him that he does have a Mcclendon catheter in and from discussion with staff it appears as though he had some urinary retention while in the ED. He is on finasteride. Patient denies fevers, chills, nausea, emesis, chest pain or dyspnea. Objective Data Objective Data Vital Signs: Vital Signs Temp Pulse Resp BP Pulse Ox O2 Del Method 98.2 F 56 L 18 110/51 L 97 Room Air 01/30/23 02:30 01/30/23 02:30 01/30/23 02:30 01/30/23 02:30 01/30/23 02:30 01/30/23 02:30 Oxygen Delivery Method Room Air Weight: 172 lb 2.896 oz Body Mass Index (BMI) 27.0 Intake & Output: Intake and Output for Last 24 Hours 01/28/23 01/29/23 01/30/23 23:59 23:59 23:59 Intake Total 1035 / 1035 Balance 1035 / 1035 Lab / Micro Data 01/30/23 04:50 01/30/23 04:50 Labs: Laboratory Results - last 24 hr 01/29/23 20:10: WBC 10.4, RBC 3.76 L, Hgb 12.4 L, Hct 37.0 L, MCV 98.4 H, MCH 33.0 H, MCHC 33.5, RDW Std Deviation 49.1 H, RDW Coeff of Donald 13.6, Plt Count 301, MPV 10.1, Immature Gran % (Auto) 0.500, Neut % (Auto) 68.9, Lymph % (Auto) 19.9, Cole % (Auto) 9.4, Eos % (Auto) 0.9, Baso % (Auto) 0.4, Absolute Neuts (auto) 7.2, Absolute Lymphs (auto) 2.07, Nucleated RBC % 0, Sodium 133 L, Potassium 3.4 L, Chloride 98, Carbon Dioxide 24.0, Anion Gap 11, BUN 39 H, Creatinine 2.50 H, Estim Creat Clear Calc 20.20, Est GFR (MDRD) Af Amer 32 L, Est GFR (MDRD) Non-Af 26 L, BUN/Creatinine Ratio 15.6, Glucose 101, Calcium 9.0,Total Bilirubin 0.70, AST 22, ALT 33, Alkaline Phosphatase 136 H, Total Protein 7.7, Albumin 3.5, Globulin 4.2, Albumin/Globulin Ratio 0.8 L, Lipase 77 H 01/30/23 02:30: Urine Color Yellow, Urine Clarity Clear, Urine pH 6.5, Ur Specific Marcus 1.010, Urine Protein 15 H, Urine Glucose (UA) Normal, Urine Ketones 5 H, Urine Occult Blood 25 H, Urine Nitrite Negative, Urine Bilirubin Negative, Urine Urobilinogen Normal, Ur Leukocyte Esterase Negative, Urine RBC 0-5 SEEN, Urine WBC 0 SEEN, Ur Squamous Epith Cells 0 SEEN, Urine Bacteria RARE,Urine Mucus 0 SEEN 01/30/23 04:50: WBC 7.4, RBC 3.34 L, Hgb 11.1 L, Hct 33.6 L, MCV 100.6 H, MCH 33.2 H, MCHC 33.0, RDW Std Deviation 51.1 H, RDW Coeff of Donald 13.9, Plt Count 266, MPV 11.0, Immature Gran % (Auto) 0.400, Neut % (Auto) 61.4, Lymph % (Auto) 25.5, Cole % (Auto) 9.9, Eos % (Auto) 2.3, Baso % (Auto) 0.5, Absolute Neuts (auto) 4.5, Absolute Lymphs (auto) 1.88, Nucleated RBC % 0, Sodium 137, Potassium 4.1, Chloride 103, Carbon Dioxide 25.0, Anion Gap 9, BUN 37 H, Creatinine 2.42 H, Estim Creat Clear Calc 20.14, Est GFR (MDRD) Af Amer 33 L, Est GFR (MDRD) Non-Af 27 L, BUN/Creatinine Ratio 15.3, Glucose 94, Calcium 8.5, Phosphorus 4.1, Magnesium 2.0, TSH 1.82 Micro: Microbiology 01/29/23 22:20 Stool Stool Occult Blood (ABBIE) - Final Radiography Diagnostic Testing: Radiology Impression Abdomen/Pelvis CT 01/29/23 20:02 IMPRESSION: Possible gastric ulcer. Other incidental findings as above. Electronically Signed: Pranav Owusu MD at 21:36 EDT Reading Location ID and State: [facility] / [place] Tel , Service support , Physical Exam Narrative Physical Examination: General: Awake, alert, oriented x 3 and cooperative, seated upright in MS bed, mildly fatigued otherwise no acute complaints, notes abdominal discomfort is lessened. Skin: Normal color, normal turgor, no icterus, no cyanosis except occasional staged ecchymoses. HEENT: AT/NC, EOMI, PERRLA, mildly dry MM. Lungs: C mildly diminished, greater bases, proper effort, no rales, ronchi or wheezing. Heart: Regular rate and rhythm; no gallop, rub audible. Abdomen: Soft, mild discomfort primarily to upper quadrants but no rebound or guarding, notes improved since prior, no marked distention, hyperactive BS, of note Mcclendon catheter in place. Extremities: No cyanosis, clubbing, or edema. Neurological: Patient awake, alert, oriented as noted, cognitive function intact; pupils equally reactive to light and accommodation, cranial nerves II-XII grossly normal, moving all 4 extremities, no focal deficits, strength improving but still remains moderately to severely global decreased. Psychiatric: Affect appears fatigued, no acute evidence of depressive or anxietyfeelings. Assessment & Plan Assessment/Plan (1) Abdominal pain: PLAN: Plan The patient is an 87 y/o M w/ PMHx: CKD stage IIIb, HTN, HLD, BPH, Chronic anemia/Fe deficiency anemia, Chronic Bradycardia, Dementia unclear type with unclear behavioral disturbance history, Monoclonal gammopathy, GERD who [facility] with history of decreased oral intake for at least the last 3 days with associated nausea without emesis with last BM 2 days prior withongoing generalized abdominal pain prompting ED evaluation. #1. Intractable Abdominal Pain with nausea, decreased oral intake, suspected Gastric etiology, possibly Ulcer: Negative guaiac however CT abdomen pelvis withpossible gastric ulcer with otherwise no acute findings, admission hemoglobin 12.4, repeat this morning 01/30/23 Hgb 11.1 which is similar to his baseline from12/29/2022 onward, maintained on continuous PPI infusion, 01/30/23 EGD with noted chronic gastritis which was biopsied as well as a nonbleeding gastric ulcer withpigmented material treated with argon plasma coagulation as well as a single duodenal polyp that was resected and retrieved with initiation of sucralfate 1 gp.o. 4 times daily, Protonix continued regimen with transition amenable to 40 mgp.o. daily as well as avoidance of any aspirin/ibuprofen/naproxen or other NSAIDdrugs. We will continue patient's continuous PPI infusion and once completes at9 PM we will transition then to daily PPI oral regimen in AM. GI is currently transition patient to transitional diet, if continues to clinically improve willadvance in AM. #2. Acute kidney injury on CKD stage IIIb: Secondary to poor oral intake coupled with possibly nephrotoxic medication. Admission BUN/Cr 39/2.50, prior baseline creatinine noted to be primarily 1.1-1.4, 01/30/2023 BUN/creatinine to 37/2.42. Continue judicious hydration with noted acute presentation #1, holding diuretics as well as lisinopril, continue to trend and if worsens or not improving low threshold to obtain FeNa/renal consultation. #3. Anemia, chronic since most recent admission, currently macrocytic on Chronic Fe Deficiency anemia: Guaiac negative at the end of December, repeat guaiac here negative, admission hemoglobin 12.4, MCV 98.4, 01/30/2023 Hgb 11.1, MCV 100.6, trended down since December admission, CT as noted with possible ulceration with concern for gastric ulcer. Vitamin B12 and folic acid levels requested. 01/30/23 EGD with noted chronic gastritis which was biopsied as well as a nonbleeding gastric ulcer with pigmented material treated with argon plasma coagulation as well as a single duodenal polyp that was resected and retrieved with initiation of sucralfate 1 g p.o. 4 times daily, Protonix continued regimenwith transition amenable to 40 mg p.o. daily as well as avoidance of any aspirin/ibuprofen/naproxen or other NSAID drugs. #4. Debility, generalized weakness, adult failure to thrive: Likely contributedto by acute presentation as noted #1, #2, #3, maintain on fall precautions, PT and OT consultations requested as well as case management for possible skilled transition, family does not want patient to return to [facility] of note and would prefer other facility. #5. BPH with urinary retention: Continue patient home finasteride and terazosinregimen, Mcclendon catheter currently in place, will attempt discontinuation 01/31/2023 with continued close monitoring. If again he has recurrent may consider also adding Flomax but again he is already on dual agents thus could consider leaving in place and having him follow-up with urology outpatient if this becomes an issue. #6. Hypokalemia: Admission K+ 3.4, supplementation given, repeat level 01/30/23 4.1, normalized. #7. 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 #8. Dementia, unclear type with reported behavioral disturbance history: We will continue home Aricept regimen, complicates presentation, PT/OT/case management consulted for discharge planning, maintain on fall and aspiration precautions. #9. Chronic bradycardia: Stable, asymptomatic, will continue beta-deondre therapy and may add hold parameters as needed. #10. Monoclonal gammopathy: Following with Dr. Magana, hematology/oncology, notedkappa light chain present, encourage continued outpatient follow-up. #11. GERD: As noted given presentation currently maintained on Protonix. #12. Hypertension: Continue home regimen including Coreg, given low BP temporally holding amlodipine as well as any nephrotoxic medications, PRN hydralazine. #13. DVT prophylaxis: SCDs. #14. CODE STATUS: DNR-CCA, no intubation. Charges/Coding Visit Charges Inpatient E&M: 85558 Subs Hosp L3 01/30/23 9935 <Electronically signed by Aletha Malcolm MD> Cosigner Signature (if applicable): CC: ~ Signed [facility] Work Phone: 1(506) 541-120608-26-2023 Consult note Author Aden Friend [facility] January 30, 2023 8:25am Note Date/Time January 30, 2023 8: 19am [facility] Medical Records Department [address] [place] [address] Consultation - GI 01/30/23817 MR#: [id number] Acct: [id number] Name: ATIF COLÓN Rep #:[id number] : 1935 87 From: Aden Carey DO PCP: Dr. Jaime Johnson MD Status :ADM IN Location: MS3 MSED-2 HPI Consult Data Date of Consult: 01/30/23 HPI Narrative Reason for Consultation: GI bleed and abnormal CT scan HPI Narrative: ATIF COLÓN, is a 87 M who presents with abdominal pain. The history is from him and the chart. He has been having some abdominal discomfort for about 3 or so days. He is not moving his bowels well. He has nausea but no vomiting. He has not really been eating and drinking much. He denies urinary symptoms. He was seen today as an outpatient. He had blood work and plain films that wereconcerning for small bowel obstruction and dehydration. I do not have access tothese results. He was sent in here for evaluation. Of note, it sounds like thepatient may have had an inguinal hernia repair in the past but no other abdominal surgery. No history of cancer. No recent weight loss. No trauma. Nothing I can get makes the symptoms better or worse. He sustained a recent intercerebral hemorrhage and was admitted [facility] however they were told there he did not have a stroke or intracranial bleed. He was then admitted here for dehydration and was noted to be significantly weak by physical and Occupational Therapy. Acute rehab admission was recommended and he was transferred to the acute rehab unit here [facility]. He was discharged there on 01/11/2023 and was admitted to [facility] for ongoing care. He was then discharged to the assisted living facility. It appears that he was having downtrending hemoglobin. His most recent hemoglobin on 01/13/2023 was 10.9 but it appears his baseline earlier this year was running between 11.5 and 13. Chemistry panel shows mild hyponatremia with a sodium of 133, mild hypokalemia with potassium of 3.4, his BUN was 39 and his serum creatinine was 2.50 (baseline serum creatinine is 1.15-1.4). Liver functions are normal and his lipase is 77. Low voltage with intermittent irregularity but does not appear to be atrial fibrillation. CT of the abdomen pelvis was performed given his findings and commented on thickening at the gastric antrum with possible ulceration and concern for possible gastric ulcer. I was consulted to evaluate his abdominal pain and CT scan findings. [facility] Medical History A-fib BPH (benign prostatic hyperplasia) Chronic renal failure, stage 3a Dark stools Fall GERD (gastroesophageal reflux disease) H/O normocytic normochromic anemia Hypertension Neuropathic pain Restless legs syndrome Home Medications multivitamin 1 ea PO DAILY supplement 07/02/15 [History Last Taken Unknown] finasteride 5 mg tablet 5 mg PO QDAY urinary retention 05/17/17 [History Last Taken Unknown] amlodipine 2.5 mg tablet 2.5 mg PO DAILY blood pressure 12/31/22 [History Last Taken Unknown] ferrous sulfate 325 mg (65 mg iron) tablet (FeroSul) 325 mg PO DAILY suppliment 12/31/22 [History Last Taken 12/31/22] acetaminophen 325 mg tablet 650 mg (2 x 325 mg) PO Q6H PRN PRN Pain Score 1-10 #1 TAB 01/11/23 [Rx Last Taken Unknown] benzonatate 100 mg capsule 100 mg PO Q6H PRN cough 01/29/23 [History Last Taken Unknown] bisacodyl 10 mg rectal suppository 10 mg ND DAILY PRN constipation 01/29/23 [History Last Taken Unknown] carvedilol 3.125 mg tablet 6.25 mg PO BIDCM 01/29/23 [History Last Taken Unknown] furosemide 40 mg tablet 40 mg PO DAILY 01/29/23 [History Last Taken Unknown] hydrocortisone acetate 25 mg rectal suppository 25 mg ND BID Hemorrhoidal pain 01/29/23 [History Last Taken Unknown] lisinopril 40 mg tablet 40 mg PO DAILY 01/29/23 [History Last Taken Unknown] melatonin 5 mg capsule 5 mg PO QHS 01/29/23 [History Last Taken Unknown] omeprazole 20 mg capsule,delayed release 20 mg PO Q8H 01/29/23 [History Last Taken Unknown] terazosin 5 mg capsule 5 mg PO QHS 01/29/23 [History Last Taken Unknown] Allergy/AdvReac Type Severity Reaction Status Date / Time Penicillins Allergy Rash Verified 01/29/23 19:17 Family History Mother Cirrhosis of liver Surgical History H/O hernia repair Hx of cholecystectomy S/P right rotator cuff repair Unspecified nasal polyp Social History (Updated 01/29/23 @ 23:[address] Isidra Rodriguez DO) household members: spouse housing: assisted living facility current occupational status: retired Smoking Status: Former smoker how long ago did patient quit smokin years ago ROS ROS Narrative Review of systems was difficult due to patient's dementia Constitutional Constitutional: Reports anorexia, fatigue and weakness; Denies change in weight,chills, fever(s), malaise, night sweats or other Eyes Eyes: Denies blurry vision, change in eye color, change in vision, discharge from eye(s), double vision, erythema, eye pain, loss of vision or other ENT HEENT: Reports abnormal hearing and hearing loss; Denies dysphagia, ear pain, epistaxis, headache(s), nasal congestion, nasal discharge, post nasal drip, sinus pressure, sore throat or other Cardiovascular Cardiovascular: Denies chest pain, claudication, dyspnea on exertion, edema, lightheadedness, orthopnea, palpitations, paroxysmal nocturnal dyspnea, rapid heart rate, syncope or other Respiratory/Chest Respiratory/Chest: Denies cough, dyspnea, excessive phlegm production, hemoptysis, productive cough, shortness of breath at rest, shortness of breath with exertion, wheezing or other Gastrointestinal Gastrointestinal: Reports abdominal pain, dyspepsia and nausea; Denies coffee ground emesis, constipation, diarrhea, hematemesis, hematochezia, loose stools, melena, vomiting or other Genitourinary Genitourinary: Denies burning urination, difficulty urinating, dysuria, hematuria, nocturia, urinary frequency, urinary hesitancy, urinary incontinence,urinary urgency or other Musculoskeletal Musculoskeletal: Denies arthralgias, back pain, joint pain, joint stiffness, joint swelling, myalgias, neck pain or other Neurologic Neurologic: Reports other Details: Memory loss ; Denies abnormal gait, abnormal speech, confusion, disequilibrium, dizziness, focal weakness, headache(s), numbness, paresthesias, seizure-like activity, seizures, syncope, tingling or tremor(s) Psychiatric Psychiatric: Denies anxiety, depression, homicidal ideation, suicidal ideation or other Endocrine Endocrinology: Denies change in body appearance, cold intolerance, excessive sweating, heat intolerance, polydipsia, polyuria or other Hematologic/Lymphatic Hematologic/Lymphatic: Denies anemia, easy bleeding, easy bruising, lymphadenopathy or other Allergic/Immunologic Allergic/Immunologic: Denies rhinitis, hives, eczemia, asthma or other Physical Exam Const alert, no apparent distress and average body habitus Constitutional Narrative: Elderly white male, General Appearance: cooperative HEENT normocephalic and head/scalp atraumatic Eyes PERRL and EOMs intact bilaterally; Negative for conjunctivae normal Eyes Narrative: Mild conjunctival pallor bilaterally, no scleral icterus Neck no lymphadenopathy and supple Neck Narrative: Trachea midline, no thigh Resp normal respiratory effort, no retractions, no use of accessory muscles and clearto auscultation bilaterally Auscultation: Negative for rales, rhonchi or wheezes Cardio regular rhythm, S1 normal heart sound, S2 normal heart sound, no murmurs, no rub, no gallops and no clicks Cardio Narrative: Bradycardia GI normal to inspection, nondistended, normoactive bowel sounds and soft to palpation GI Narrative: Tenderness diffusely Extremity no clubbing, cyanosis or edema Extremity Narrative: Pedal pulses are 2+, patient with decreased lean muscle mass Skin no rashes or lesions noted, no wounds, No skin turgor normal, no jaundice, no petechiae and no mottling Skin Narrative: Skin turgor is abnormal with tenting Neuro CN's II-XII intact bilaterally, moves all extremities and no focal motor deficits Neuro Narrative: Oriented to self, severe generalized weakness Speech: speech normal Psych affect normal Psych Narrative: Eye contact is good, patient answers questions appropriately but is somewhat forgetful Lab / Micro Data 01/30/23 04:50 01/30/23 04:50 Labs: Laboratory Results - last 24 hr 01/29/23 20:10: WBC 10.4, RBC 3.76 L, Hgb 12.4 L, Hct 37.0 L, MCV 98.4 H, MCH 33.0 H, MCHC 33.5, RDW Std Deviation 49.1 H, RDW Coeff of Donald 13.6, Plt Count 301, MPV 10.1, Immature Gran % (Auto) 0.500, Neut % (Auto) 68.9, Lymph % (Auto) 19.9, Cole % (Auto) 9.4, Eos % (Auto) 0.9, Baso % (Auto) 0.4, Absolute Neuts (auto) 7.2, Absolute Lymphs (auto) 2.07, Nucleated RBC % 0, Sodium 133 L, Potassium 3.4 L, Chloride 98, Carbon Dioxide 24.0, Anion Gap 11, BUN 39 H, Creatinine 2.50 H, Estim Creat Clear Calc 20.20, Est GFR (MDRD) Af Amer 32 L, Est GFR (MDRD) Non-Af 26 L, BUN/Creatinine Ratio 15.6, Glucose 101, Calcium 9.0,Total Bilirubin 0.70, AST 22, ALT 33, Alkaline Phosphatase 136 H, Total Protein 7.7, Albumin 3.5, Globulin 4.2, Albumin/Globulin Ratio 0.8 L, Lipase 77 H 01/30/23 02:30: Urine Color Yellow, Urine Clarity Clear, Urine pH 6.5, Ur Specific Marcus 1.010, Urine Protein 15 H, Urine Glucose (UA) Normal, Urine Ketones 5 H, Urine Occult Blood 25 H, Urine Nitrite Negative, Urine Bilirubin Negative, Urine Urobilinogen Normal, Ur Leukocyte Esterase Negative, Urine RBC 0-5 SEEN, Urine WBC 0 SEEN, Ur Squamous Epith Cells 0 SEEN, Urine Bacteria RARE,Urine Mucus 0 SEEN 01/30/23 04:50: WBC 7.4, RBC 3.34 L, Hgb 11.1 L, Hct 33.6 L, MCV 100.6 H, MCH 33.2 H, MCHC 33.0, RDW Std Deviation 51.1 H, RDW Coeff of Donald 13.9, Plt Count 266, MPV 11.0, Immature Gran % (Auto) 0.400, Neut % (Auto) 61.4, Lymph % (Auto) 25.5, Cole % (Auto) 9.9, Eos % (Auto) 2.3, Baso % (Auto) 0.5, Absolute Neuts (auto) 4.5, Absolute Lymphs (auto) 1.88, Nucleated RBC % 0, Sodium 137, Potassium 4.1, Chloride 103, Carbon Dioxide 25.0, Anion Gap 9, BUN 37 H, Creatinine 2.42 H, Estim Creat Clear Calc 20.14, Est GFR (MDRD) Af Amer 33 L, Est GFR (MDRD) Non-Af 27 L, BUN/Creatinine Ratio 15.3, Glucose 94, Calcium 8.5, Phosphorus 4.1, Magnesium 2.0, TSH 1.82 Micro: Microbiology 01/29/23 22:20 Stool Stool Occult Blood (ABBIE) - Final Radiology Impression Abdomen/Pelvis CT 01/29/23 20:02 IMPRESSION: Possible gastric ulcer. Other incidental findings as above. Electronically Signed: Pranav Owusu MD at 21:36 EDT Reading Location ID and State: [facility] / [place] Tel , Service support , Assessment & Plan Assessment/Plan (1) Dehydration: (2) Abdominal pain: (3) Anemia: (4) Acute kidney injury: (5) Abnormal CT of the abdomen: PLAN: Plan 87-year-old gentleman with recent intracranial hemorrhage with no known deficitspresents with worsening nausea, abdominal pain and discovered to have gastric ulcer and acute kidney injury. Abdominal pain/nausea -CT is suggestive of gastric ulcer and with recent drop in hemoglobin from previous baseline needs EGD -Protonix drip -Antiemetics as needed -As needed morphine for pain -N.p.o. at midnight -Clear liquid diet for now Anemia -Patient was guaiac negative at the end of December -Repeat guaiac is pending -Hemoglobin has been dropping -Suggestion of possible ulceration on EGD with thickening -Repeat CBC in a.m.--> anticipate drop in hemoglobin as patient is severely hemoconcentrated currently Charges/Coding Visit Charges Inpatient E&M: 92225 Init Hosp L3 01/30/23 0825 <Electronically signed by Aden Carey DO> Cosigner Signature (if applicable): CC: Dr. Jaime Johnson MD; Dr. Isidra Rodriguez DO~ Signed [facility] Work Phone: 1(482) 441-734708-26-2023 Procedure [facility] 01-30-2023 Procedure [facility]08-26-2023 History and physical note Author Isidra Rodriguez [facility] January 29, 2023 11:12pm Note Date/Time January 29, 2023 10 :35pm [facility] Medical Records Department [address] [place] [address] H&P Exam - Hospitalist 01/29/232231 MR#: [id number] Acct: [id number] Name: ATIF COLÓN Rep #:[id number] : 1935 87 From: Isidra Rodriguez DO PCP: Dr. Jaime Johnson MD Status :REG ER Location: ED HPI - General General Date of Admission: 01/29/23 Date of Service: 01/29/23 Chief Complaint: Abdominal pain HPI Narrative ATIF COLÓN, is a 87 M who presented emergency department at [facility] on 01/29/2023 with abdominal pain. Is a resident at an assisted living ([facility]) and per his daughters, who are at the bedside, they report that he has had decreased oral intake and really has not eaten anything in about 3 days, decreased oral liquid intake and some nausea. He has had no emesis. He has a history of constipation but had a bowel movement about 2 days ago. He sustained a recent intercerebral hemorrhage and was admitted [facility] however they were told there he did not have a stroke or intracranial bleed. He was then admitted here for dehydration and was noted to be significantly weak by physical and Occupational Therapy. Acute rehab admission was recommended and he was transferred to the acute rehab unit here [facility]. He was discharged there on 01/11/2023 and was admitted to [facility] for ongoing care. He was then discharged to the assisted living facility. It appears that he was having downtrending hemoglobinwhile he was at the acute rehab facility here and a guaiac was done and negativefor occult blood at that time. Family reports that over the last several days he has been sleeping a lot, not eating, complaining of nausea and abdominal pain. He does have dementia at baseline and he himself is a poor historian. Vital signs on presentation show a temperature of 97.2, heart rate 51, blood pressure 116/68, respirate 16 oxygen saturations are 100% on room air. BC shows a normal white count with a hemoglobin of 12.4. His most recent hemoglobin on 01/13/2023 was 10.9 but it appears his baseline earlier this year was running between 11.5 and 13. Chemistry panel shows mild hyponatremia with a sodium of 133, mild hypokalemia with potassium of 3.4, his BUN was 39 and his serum creatinine was 2.50 (baseline serum creatinine is 1.15-1.4). Liver functions are normal and his lipase is 77. Low voltage with intermittent irregularity but does not appear to be atrial fibrillation. CT of the abdomen pelvis was performed given his findings and commented on thickening at the gastric antrum with possible ulceration and concern for possible gastric ulcer. There did not appear to be a large burden of stool in the colon. [facility] Medical History A-fib BPH (benign prostatic hyperplasia) Chronic renal failure, stage 3a Dark stools Fall GERD (gastroesophageal reflux disease) H/O normocytic normochromic anemia Hypertension Neuropathic pain Restless legs syndrome Home Medications multivitamin 1 ea PO DAILY supplement 07/02/15 [History Last Taken Unknown] finasteride 5 mg tablet 5 mg PO QDAY urinary retention 05/17/17 [History Last Taken Unknown] amlodipine 2.5 mg tablet 2.5 mg PO DAILY blood pressure 12/31/22 [History Last Taken Unknown] ferrous sulfate 325 mg (65 mg iron) tablet (FeroSul) 325 mg PO DAILY suppliment 12/31/22 [History Last Taken 12/31/22] acetaminophen 325 mg tablet 650 mg (2 x 325 mg) PO Q6H PRN PRN Pain Score 1-10 #1 TAB 01/11/23 [Rx Last Taken Unknown] benzonatate 100 mg capsule 100 mg PO Q6H PRN cough 01/29/23 [History Last Taken Unknown] bisacodyl 10 mg rectal suppository 10 mg ND DAILY PRN constipation 01/29/23 [History Last Taken Unknown] carvedilol 3.125 mg tablet 6.25 mg PO BIDCM 01/29/23 [History Last Taken Unknown] furosemide 40 mg tablet 40 mg PO DAILY 01/29/23 [History Last Taken Unknown] hydrocortisone acetate 25 mg rectal suppository 25 mg ND BID Hemorrhoidal pain 01/29/23 [History Last Taken Unknown] lisinopril 40 mg tablet 40 mg PO DAILY 01/29/23 [History Last Taken Unknown] melatonin 5 mg capsule 5 mg PO QHS 01/29/23 [History Last Taken Unknown] omeprazole 20 mg capsule,delayed release 20 mg PO Q8H 01/29/23 [History Last Taken Unknown] terazosin 5 mg capsule 5 mg PO QHS 01/29/23 [History Last Taken Unknown] Allergy/AdvReac Type Severity Reaction Status Date / Time Penicillins Allergy Rash Verified 01/29/23 19:17 Family History Mother Cirrhosis of liver Surgical History H/O hernia repair Hx of cholecystectomy S/P right rotator cuff repair Unspecified nasal polyp Social History (Updated 01/29/23 @ 23:[address] Isidra Rodriguez DO) household members: spouse housing: assisted living facility current occupational status: retired Smoking Status: Former smoker how long ago did patient quit smokin years ago ROS ROS Narrative Review of systems was difficult due to patient's dementia Constitutional Constitutional: Reports anorexia, fatigue and weakness; Denies change in weight,chills, fever(s), malaise, night sweats or other Eyes Eyes: Denies blurry vision, change in eye color, change in vision, discharge from eye(s), double vision, erythema, eye pain, loss of vision or other ENT HEENT: Reports abnormal hearing and hearing loss; Denies dysphagia, ear pain, epistaxis, headache(s), nasal congestion, nasal discharge, post nasal drip, sinus pressure, sore throat or other Cardiovascular Cardiovascular: Denies chest pain, claudication, dyspnea on exertion, edema, lightheadedness, orthopnea, palpitations, paroxysmal nocturnal dyspnea, rapid heart rate, syncope or other Respiratory/Chest Respiratory/Chest: Denies cough, dyspnea, excessive phlegm production, hemoptysis, productive cough, shortness of breath at rest, shortness of breath with exertion, wheezing or other Gastrointestinal Gastrointestinal: Reports abdominal pain, dyspepsia and nausea; Denies coffee ground emesis, constipation, diarrhea, hematemesis, hematochezia, loose stools, melena, vomiting or other Genitourinary Genitourinary: Denies burning urination, difficulty urinating, dysuria, hematuria, nocturia, urinary frequency, urinary hesitancy, urinary incontinence,urinary urgency or other Musculoskeletal Musculoskeletal: Denies arthralgias, back pain, joint pain, joint stiffness, joint swelling, myalgias, neck pain or other Neurologic Neurologic: Reports other Details: Memory loss ; Denies abnormal gait, abnormal speech, confusion, disequilibrium, dizziness, focal weakness, headache(s), numbness, paresthesias, seizure-like activity, seizures, syncope, tingling or tremor(s) Psychiatric Psychiatric: Denies anxiety, depression, homicidal ideation, suicidal ideation or other Endocrine Endocrinology: Denies change in body appearance, cold intolerance, excessive sweating, heat intolerance, polydipsia, polyuria or other Hematologic/Lymphatic Hematologic/Lymphatic: Denies anemia, easy bleeding, easy bruising, lymphadenopathy or other Allergic/Immunologic Allergic/Immunologic: Denies rhinitis, hives, eczemia, asthma or other Vital Signs Vital Signs Vital Signs: 01/29/23 19:15 01/29/23 19:54 01/29/23 22:24 Temperature 97.2 F L 97.2 F L Temperature Source Temporal Temporal Pulse Rate 51 L 51 L 107 H Respiratory Rate 16 16 16 Blood Pressure 116/68 116/68 124/55 H Blood Pressure Mean 84 84 78 Pulse Ox 100 100 99 Oxygen Delivery Method Room Air 01/29/23 22:27 Temperature 97 F L Temperature Source Temporal Pulse Rate 78 Respiratory Rate 16 Blood Pressure 124/55 H Blood Pressure Mean 78 Pulse Ox 98 Oxygen Delivery Method Weight Weight: 78.199 kg Body Mass Index (BMI) 27.0 Physical Exam Const alert, no apparent distress and average body habitus Constitutional Narrative: Elderly white male, lying in bed under multiple blankets lying on left side, daughters at bedside, patient appears nontoxic but fatigued, oriented to self General Appearance: cooperative HEENT normocephalic and head/scalp atraumatic HEENT Narrative: Moderate hearing loss, mucous membranes are somewhat dry, Mallampati is 2, dentition is poor, no thrush Eyes PERRL and EOMs intact bilaterally; Negative for conjunctivae normal Eyes Narrative: Mild conjunctival pallor bilaterally, no scleral icterus Neck no lymphadenopathy and supple Neck Narrative: Trachea midline, no thigh Resp normal respiratory effort, no retractions, no use of accessory muscles and clearto auscultation bilaterally Auscultation: Negative for rales, rhonchi or wheezes Cardio regular rhythm, S1 normal heart sound, S2 normal heart sound, no murmurs, no rub, no gallops and no clicks Cardio Narrative: Bradycardia GI normal to inspection, nondistended, normoactive bowel sounds and soft to palpation GI Narrative: Tenderness diffusely Extremity no clubbing, cyanosis or edema Extremity Narrative: Pedal pulses are 2+, patient with decreased lean muscle mass Skin no rashes or lesions noted, no wounds, No skin turgor normal, no jaundice, no petechiae and no mottling Skin Narrative: Skin turgor is abnormal with tenting Neuro CN's II-XII intact bilaterally, moves all extremities and no focal motor deficits Neuro Narrative: Oriented to self, severe generalized weakness Speech: speech normal Psych affect normal Psych Narrative: Eye contact is good, patient answers questions appropriately but is somewhat forgetful Results Lab / Micro Data 01/29/23 20:10 01/29/23 20:10 Labs: Laboratory Results - last 24 hr 01/29/23 20:10: WBC 10.4, RBC 3.76 L, Hgb 12.4 L, Hct 37.0 L, MCV 98.4 H, MCH 33.0 H, MCHC 33.5, RDW Std Deviation 49.1 H, RDW Coeff of Donald 13.6, Plt Count 301, MPV 10.1, Immature Gran % (Auto) 0.500, Neut % (Auto) 68.9, Lymph % (Auto) 19.9, Cole % (Auto) 9.4, Eos % (Auto) 0.9, Baso % (Auto) 0.4, Absolute Neuts (auto) 7.2, Absolute Lymphs (auto) 2.07, Nucleated RBC % 0, Sodium 133 L, Potassium 3.4 L, Chloride 98, Carbon Dioxide 24.0, Anion Gap 11, BUN 39 H, Creatinine 2.50 H, Estim Creat Clear Calc 20.20, Est GFR (MDRD) Af Amer 32 L, Est GFR (MDRD) Non-Af 26 L, BUN/Creatinine Ratio 15.6, Glucose 101, Calcium 9.0,Total Bilirubin 0.70, AST 22, ALT 33, Alkaline Phosphatase 136 H, Total Protein 7.7, Albumin 3.5, Globulin 4.2, Albumin/Globulin Ratio 0.8 L, Lipase 77 H Radiology Impression Abdomen/Pelvis CT 01/29/23 20:02 IMPRESSION: Possible gastric ulcer. Other incidental findings as above. 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 if serum creatinine does not improve may need further work- up Abdominal pain/nausea -CT is suggestive of gastric ulcer and with recent drop in hemoglobin from previous baseline likely needs EGD -Protonix drip -Antiemetics as needed -As needed morphine for pain -N.p.o. at midnight -Clear liquid diet for now -GI consultation for possible EGD tomorrow Anemia -Patient was guaiac negative at the end of December -Repeat guaiac is pending -Hemoglobin has been dropping -Suggestion of possible ulceration on EGD with thickening -Repeat CBC in a.m.--> anticipate drop in hemoglobin as patient is severely hemoconcentrated currently -GI consult as above Chronic bradycardia -Patient is on area which can contribute as well as a beta-deondre -This is asymptomatic and will continue medications for now Debility/generalized weakness -PT/OT consultation -Patient may need skilled facility at discharge depending on functional status -Consult case management and social work -Family is adamant that they do not want to return to [facility] Dementia with behavioral disturbances -Continue home medication regimen Monoclonal gammopathy -[place] light chain present -Patient has follow-up upcoming with hematology/oncology--> Dr. Magana History of GERD -Protonix drip as noted above BPH -Continue home finasteride -Continue home terazosin Hypertension -Continue home carvedilol -Hold home oral -Hold home amlodipine for now as blood pressures are currently low normal DVT prophylaxis -SCDs CODE STATUS -DNR CCA per discussion with family on admission Charges/Coding Visit Charges Inpatient E&M: 83136 Init Hosp L3 01/29/23 2312 <Electronically signed by Isidra Rodriguez DO> Cosigner Signature (if applicable): CC: Dr. Jaime Johnson MD; Dr. Isidra Rodriguez DO~ Signed [facility] Work Phone: [phone]) 863-233308-26-2023 History and physical note Author Isidra Rodriguez [facility] January 29, 2023 11:12pm Note Date/Time January 29, 2023 10 :35pm [facility] Medical Records Department [address] [place] [address] H&P Exam - Hospitalist 01/29/232231 MR#: [id number] Acct: [id number] Name: ATIF COLÓN Rep #:[id number] : 1935 87 From: Isidra Rodriguez DO PCP: Dr. Jaime Johnson MD Status :REG ER Location: ED HPI - General General Date of Admission: 01/29/23 Date of Service: 01/29/23 Chief Complaint: Abdominal pain HPI Narrative ATIF COLÓN, is a 87 M who presented emergency department at [facility] on 01/29/2023 with abdominal pain. Is a resident at an assisted living ([facility]) and per his daughters, who are at the bedside, they report that he has had decreased oral intake and really has not eaten anything in about 3 days, decreased oral liquid intake and some nausea. He has had no emesis. He has a history of constipation but had a bowel movement about 2 days ago. He sustained a recent intercerebral hemorrhage and was admitted [facility] however they were told there he did not have a stroke or intracranial bleed. He was then admitted here for dehydration and was noted to be significantly weak by physical and Occupational Therapy. Acute rehab admission was recommended and he was transferred to the acute rehab unit here [facility]. He was discharged there on 01/11/2023 and was admitted to [facility] for ongoing care. He was then discharged to the assisted living facility. It appears that he was having downtrending hemoglobinwhile he was at the acute rehab facility here and a guaiac was done and negativefor occult blood at that time. Family reports that over the last several days he has been sleeping a lot, not eating, complaining of nausea and abdominal pain. He does have dementia at baseline and he himself is a poor historian. Vital signs on presentation show a temperature of 97.2, heart rate 51, blood pressure 116/68, respirate 16 oxygen saturations are 100% on room air. BC shows a normal white count with a hemoglobin of 12.4. His most recent hemoglobin on 01/13/2023 was 10.9 but it appears his baseline earlier this year was running between 11.5 and 13. Chemistry panel shows mild hyponatremia with a sodium of 133, mild hypokalemia with potassium of 3.4, his BUN was 39 and his serum creatinine was 2.50 (baseline serum creatinine is 1.15-1.4). Liver functions are normal and his lipase is 77. Low voltage with intermittent irregularity but does not appear to be atrial fibrillation. CT of the abdomen pelvis was performed given his findings and commented on thickening at the gastric antrum with possible ulceration and concern for possible gastric ulcer. There did not appear to be a large burden of stool in the colon. [facility] Medical History A-fib BPH (benign prostatic hyperplasia) Chronic renal failure, stage 3a Dark stools Fall GERD (gastroesophageal reflux disease) H/O normocytic normochromic anemia Hypertension Neuropathic pain Restless legs syndrome Home Medications multivitamin 1 ea PO DAILY supplement 07/02/15 [History Last Taken Unknown] finasteride 5 mg tablet 5 mg PO QDAY urinary retention 05/17/17 [History Last Taken Unknown] amlodipine 2.5 mg tablet 2.5 mg PO DAILY blood pressure 12/31/22 [History Last Taken Unknown] ferrous sulfate 325 mg (65 mg iron) tablet (FeroSul) 325 mg PO DAILY suppliment 12/31/22 [History Last Taken 12/31/22] acetaminophen 325 mg tablet 650 mg (2 x 325 mg) PO Q6H PRN PRN Pain Score 1-10 #1 TAB 01/11/23 [Rx Last Taken Unknown] benzonatate 100 mg capsule 100 mg PO Q6H PRN cough 01/29/23 [History Last Taken Unknown] bisacodyl 10 mg rectal suppository 10 mg ND DAILY PRN constipation 01/29/23 [History Last Taken Unknown] carvedilol 3.125 mg tablet 6.25 mg PO BIDCM 01/29/23 [History Last Taken Unknown] furosemide 40 mg tablet 40 mg PO DAILY 01/29/23 [History Last Taken Unknown] hydrocortisone acetate 25 mg rectal suppository 25 mg ND BID Hemorrhoidal pain 01/29/23 [History Last Taken Unknown] lisinopril 40 mg tablet 40 mg PO DAILY 01/29/23 [History Last Taken Unknown] melatonin 5 mg capsule 5 mg PO QHS 01/29/23 [History Last Taken Unknown] omeprazole 20 mg capsule,delayed release 20 mg PO Q8H 01/29/23 [History Last Taken Unknown] terazosin 5 mg capsule 5 mg PO QHS 01/29/23 [History Last Taken Unknown] Allergy/AdvReac Type Severity Reaction Status Date / Time Penicillins Allergy Rash Verified 01/29/23 19:17 Family History Mother Cirrhosis of liver Surgical History H/O hernia repair Hx of cholecystectomy S/P right rotator cuff repair Unspecified nasal polyp Social History (Updated 01/29/23 @ 23:[address] Isidra Rodriguez DO) household members: spouse housing: assisted living facility current occupational status: retired Smoking Status: Former smoker how long ago did patient quit smokin years ago ROS ROS Narrative Review of systems was difficult due to patient's dementia Constitutional Constitutional: Reports anorexia, fatigue and weakness; Denies change in weight,chills, fever(s), malaise, night sweats or other Eyes Eyes: Denies blurry vision, change in eye color, change in vision, discharge from eye(s), double vision, erythema, eye pain, loss of vision or other ENT HEENT: Reports abnormal hearing and hearing loss; Denies dysphagia, ear pain, epistaxis, headache(s), nasal congestion, nasal discharge, post nasal drip, sinus pressure, sore throat or other Cardiovascular Cardiovascular: Denies chest pain, claudication, dyspnea on exertion, edema, lightheadedness, orthopnea, palpitations, paroxysmal nocturnal dyspnea, rapid heart rate, syncope or other Respiratory/Chest Respiratory/Chest: Denies cough, dyspnea, excessive phlegm production, hemoptysis, productive cough, shortness of breath at rest, shortness of breath with exertion, wheezing or other Gastrointestinal Gastrointestinal: Reports abdominal pain, dyspepsia and nausea; Denies coffee ground emesis, constipation, diarrhea, hematemesis, hematochezia, loose stools, melena, vomiting or other Genitourinary Genitourinary: Denies burning urination, difficulty urinating, dysuria, hematuria, nocturia, urinary frequency, urinary hesitancy, urinary incontinence,urinary urgency or other Musculoskeletal Musculoskeletal: Denies arthralgias, back pain, joint pain, joint stiffness, joint swelling, myalgias, neck pain or other Neurologic Neurologic: Reports other Details: Memory loss ; Denies abnormal gait, abnormal speech, confusion, disequilibrium, dizziness, focal weakness, headache(s), numbness, paresthesias, seizure-like activity, seizures, syncope, tingling or tremor(s) Psychiatric Psychiatric: Denies anxiety, depression, homicidal ideation, suicidal ideation or other Endocrine Endocrinology: Denies change in body appearance, cold intolerance, excessive sweating, heat intolerance, polydipsia, polyuria or other Hematologic/Lymphatic Hematologic/Lymphatic: Denies anemia, easy bleeding, easy bruising, lymphadenopathy or other Allergic/Immunologic Allergic/Immunologic: Denies rhinitis, hives, eczemia, asthma or other Vital Signs Vital Signs Vital Signs: 01/29/23 19:15 01/29/23 19:54 01/29/23 22:24 Temperature 97.2 F L 97.2 F L Temperature Source Temporal Temporal Pulse Rate 51 L 51 L 107 H Respiratory Rate 16 16 16 Blood Pressure 116/68 116/68 124/55 H Blood Pressure Mean 84 84 78 Pulse Ox 100 100 99 Oxygen Delivery Method Room Air 01/29/23 22:27 Temperature 97 F L Temperature Source Temporal Pulse Rate 78 Respiratory Rate 16 Blood Pressure 124/55 H Blood Pressure Mean 78 Pulse Ox 98 Oxygen Delivery Method Weight Weight: 78.199 kg Body Mass Index (BMI) 27.0 Physical Exam Const alert, no apparent distress and average body habitus Constitutional Narrative: Elderly white male, lying in bed under multiple blankets lying on left side, daughters at bedside, patient appears nontoxic but fatigued, oriented to self General Appearance: cooperative HEENT normocephalic and head/scalp atraumatic HEENT Narrative: Moderate hearing loss, mucous membranes are somewhat dry, Mallampati is 2, dentition is poor, no thrush Eyes PERRL and EOMs intact bilaterally; Negative for conjunctivae normal Eyes Narrative: Mild conjunctival pallor bilaterally, no scleral icterus Neck no lymphadenopathy and supple Neck Narrative: Trachea midline, no thigh Resp normal respiratory effort, no retractions, no use of accessory muscles and clearto auscultation bilaterally Auscultation: Negative for rales, rhonchi or wheezes Cardio regular rhythm, S1 normal heart sound, S2 normal heart sound, no murmurs, no rub, no gallops and no clicks Cardio Narrative: Bradycardia GI normal to inspection, nondistended, normoactive bowel sounds and soft to palpation GI Narrative: Tenderness diffusely Extremity no clubbing, cyanosis or edema Extremity Narrative: Pedal pulses are 2+, patient with decreased lean muscle mass Skin no rashes or lesions noted, no wounds, No skin turgor normal, no jaundice, no petechiae and no mottling Skin Narrative: Skin turgor is abnormal with tenting Neuro CN's II-XII intact bilaterally, moves all extremities and no focal motor deficits Neuro Narrative: Oriented to self, severe generalized weakness Speech: speech normal Psych affect normal Psych Narrative: Eye contact is good, patient answers questions appropriately but is somewhat forgetful Results Lab / Micro Data 01/29/23 20:10 01/29/23 20:10 Labs: Laboratory Results - last 24 hr 01/29/23 20:10: WBC 10.4, RBC 3.76 L, Hgb 12.4 L, Hct 37.0 L, MCV 98.4 H, MCH 33.0 H, MCHC 33.5, RDW Std Deviation 49.1 H, RDW Coeff of Donald 13.6, Plt Count 301, MPV 10.1, Immature Gran % (Auto) 0.500, Neut % (Auto) 68.9, Lymph % (Auto) 19.9, Cole % (Auto) 9.4, Eos % (Auto) 0.9, Baso % (Auto) 0.4, Absolute Neuts (auto) 7.2, Absolute Lymphs (auto) 2.07, Nucleated RBC % 0, Sodium 133 L, Potassium 3.4 L, Chloride 98, Carbon Dioxide 24.0, Anion Gap 11, BUN 39 H, Creatinine 2.50 H, Estim Creat Clear Calc 20.20, Est GFR (MDRD) Af Amer 32 L, Est GFR (MDRD) Non-Af 26 L, BUN/Creatinine Ratio 15.6, Glucose 101, Calcium 9.0,Total Bilirubin 0.70, AST 22, ALT 33, Alkaline Phosphatase 136 H, Total Protein 7.7, Albumin 3.5, Globulin 4.2, Albumin/Globulin Ratio 0.8 L, Lipase 77 H Radiology Impression Abdomen/Pelvis CT 01/29/23 20:02 IMPRESSION: Possible gastric ulcer. Other incidental findings as above. 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 if serum creatinine does not improve may need further work- up Abdominal pain/nausea -CT is suggestive of gastric ulcer and with recent drop in hemoglobin from previous baseline likely needs EGD -Protonix drip -Antiemetics as needed -As needed morphine for pain -N.p.o. at midnight -Clear liquid diet for now -GI consultation for possible EGD tomorrow Anemia -Patient was guaiac negative at the end of December -Repeat guaiac is pending -Hemoglobin has been dropping -Suggestion of possible ulceration on EGD with thickening -Repeat CBC in a.m.--> anticipate drop in hemoglobin as patient is severely hemoconcentrated currently -GI consult as above Chronic bradycardia -Patient is on area which can contribute as well as a beta-deondre -This is asymptomatic and will continue medications for now Debility/generalized weakness -PT/OT consultation -Patient may need skilled facility at discharge depending on functional status -Consult case management and social work -Family is adamant that they do not want to return to [facility] Dementia with behavioral disturbances -Continue home medication regimen Monoclonal gammopathy -[place] light chain present -Patient has follow-up upcoming with hematology/oncology--> Dr. Magana History of GERD -Protonix drip as noted above BPH -Continue home finasteride -Continue home terazosin Hypertension -Continue home carvedilol -Hold home oral -Hold home amlodipine for now as blood pressures are currently low normal DVT prophylaxis -SCDs CODE STATUS -DNR CCA per discussion with family on admission Charges/Coding Visit Charges Inpatient E&M: 87523 Init Hosp L3 01/29/23 2312 <Electronically signed by Isidra Rodriguez DO> Cosigner Signature (if applicable): CC: Dr. Jaime Johnson MD; Dr. Isidra Rodriguez DO~ Signed [facility] Work Phone: 1(167) 624-442508-26-2023 Discharge summary Author Evangelista Martinez [facility] January 29, 2023 10:26pm Note Date/Time January 29, 2023 8: 42pm [facility] Medical Records Department [address] [place] [address] Emergency Department Summary 01/29/23 MR#: [id number] Acct: [id number] Name: ATIF COLÓN Rep #:[id number] : 1935 87 From: Evangelista Martinez MD PCP: Dr. Jaime Johnson MD Status :REG ER Location: ED HPI History of Present Illness Chief Complaint: Abd Pain Informant: patient and family Narrative Narrative: Patient presents with abdominal pain. Patient is not the best informant. He does have dementia. History is from him and family members. The overall story is that he has been having some abdominaldiscomfort for about 3 or so days. He is not moving his bowels well. He has nausea but no vomiting. He has not really been eating and drinking much. He denies urinary symptoms. He was seen today as an outpatient. He had blood workand plain films that were concerning for small bowel obstruction and dehydration. I do not have access to these results. He was sent in here for evaluation. Of note, it sounds like the patient may have had an inguinal herniarepair in the past but no other abdominal surgery. No history of cancer. No recent weight loss. No trauma. Nothing I can get makes the symptoms better or worse. PFSH [facility] Medical History A-fib BPH (benign prostatic hyperplasia) Chronic renal failure, stage 3a Dark stools Fall GERD (gastroesophageal reflux disease) H/O normocytic normochromic anemia Hypertension Neuropathic pain Restless legs syndrome Home Medications calcium carbonate 600 mg-vitamin D3 10 mcg (400 unit) tablet 1 ea PO DAILY suppliment 07/02/15 [History Last Taken 12/31/22] gabapentin 300 mg capsule 300 mg PO QHS restless legs 07/02/15 [History Last Taken Unknown] multivitamin 1 ea PO DAILY supplement 07/02/15 [History Last Taken Unknown] finasteride 5 mg tablet 5 mg PO QDAY urinary retention 05/17/17 [History Last Taken Unknown] amlodipine 2.5 mg tablet 2.5 mg PO DAILY blood pressure 12/31/22 [History Last Taken Unknown] ferrous sulfate 325 mg (65 mg iron) tablet (FeroSul) 325 mg PO DAILY suppliment 12/31/22 [History Last Taken 12/31/22] polyethylene glycol 3350 17 gram/dose oral powder (Miralax) 17 g PO DAILY laxative 12/31/22 [History Last Taken 12/31/22] acetaminophen 325 mg tablet 650 mg (2 x 325 mg) PO Q6H PRN PRN Pain Score 1-10 #1 TAB 01/11/23 [Rx Last Taken Unknown] ascorbic acid (vitamin C) 500 mg tablet 1,000 mg (2 x 500 mg) PO LUNCH #1 TAB 01/11/23 [Rx Last Taken Unknown] carvedilol 3.125 mg tablet 3.125 mg PO BIDCM #1 TAB 01/11/23 [Rx Last Taken Unknown] donepezil 5 mg tablet 5 mg PO QHS #1 TAB 01/11/23 [Rx Last Taken Unknown] doxazosin 1 mg tablet 2 mg (2 x 1 mg) PO QHS #1 TAB 01/11/23 [Rx Last Taken Unknown] magnesium chloride 64 mg (magnesium chloride) tablet,delayed release (Mag 64) 128 mg (2 x 64 mg) PO DAILY #1 TAB 01/11/23 [Rx Last Taken Unknown] tramadol 50 mg tablet 25 mg (1/2 x 50 mg) PO Q12H PRN Pain Score 4-10 #10 tabs 01/11/23 [Rx Last Taken Unknown] benzonatate 100 mg capsule 100 mg PO Q6H PRN cough 01/29/23 [History Last Taken Unknown] bisacodyl 10 mg rectal suppository 10 mg ND DAILY PRN constipation 01/29/23 [History Last Taken Unknown] hydrocortisone acetate 25 mg rectal suppository 25 mg ND BID Hemorrhoidal pain 01/29/23 [History Last Taken Unknown] pantoprazole 20 mg tablet,delayed release 20 mg PO Q12H 01/29/23 [History Last Taken Unknown] quetiapine 25 mg tablet 25 mg PO BID 01/29/23 [History Last Taken Unknown] Allergy/AdvReac Type Severity Reaction Status Date / Time Penicillins Allergy Rash Verified 01/29/23 19:17 Family History Mother Cirrhosis of liver Surgical History H/O hernia repair Hx of cholecystectomy S/P right rotator cuff repair Unspecified nasal polyp Social History household members: spouse current occupational status: retired Smoking Status: Former smoker how long ago did patient quit smokin years ago ROS ROS ED ROS Narrative A complete review of systems was performed and is negative except as documented in the history of present illness. Some specific details below. Constitutional: No recent fevers or chills. He does feel worn out. EYE: No color change. ENT: No difficulty swallowing. No swelling. No pain. No GERD. CV: No chest pain or palpitations. Respiratory: No dyspnea. No hemoptysis. No difficulty taking breaths. GI: Please see history of present illness. He is pain but cannot localize it. No back pain. Nausea but no vomiting. : No frequency dysuria or hematuria. Sounds like there is no difficulty starting urination. No burning. Musculoskeletal: No recent trauma. No pains. Skin: No rash. Nondiaphoretic. Neuro: No weakness or numbness. Endocrine: No polyuria or polydipsia. EXAM Physical Exam Narrative Exam Narrative: CONSTITUTIONAL: Patient is nontoxic in appearance. The patient is laying on his left side in the bed. HEENT: No notable trauma. Mucous membranes do look a bit dry. No sinus tenderness. No indication of pain with swallowing. EYES: No conjunctival injection. No icterus. CARDIOVASCULAR: Regular rate. He does sound like he has an irregular rhythm butdoes have a known history of atrial fibrillation. It appears as though he is not on any anticoagulation though. No notable murmur. No JVD. RESPIRATORY: No respiratory distress. Breathing is unlabored. No wheezes. No rhonchi. No rales. No pain with a deep breath. GASTROINTESTINAL: Not distended. Bowel sounds are slightly increased. I really do not get any localized tenderness. No guarding or rebound. I do not feel anyfullness or sign of hernia in his groin. I see no umbilical hernia. There is alittle bit of fullness above this that could be a slight ventral hernia but doesnot appear to be incarcerated. GENITOURINARY: No tenderness over the bladder. No CVA tenderness. MUSCULOSKELETAL: Atraumatic. No tenderness NEUROLOGICAL: Patient is alert and appropriate. No focal deficit noted. He is not the best informant but evidently this is baseline for him. SKIN: No noted rashes. No diaphoresis. PSYCHIATRIC: Patient is calm. Mood is appropriate. Const Vital Signs: 01/29/23 19:15 01/29/23 19:54 Temperature 97.2 F L 97.2 F L Temperature Source Temporal Temporal Pulse Rate 51 L 51 L Respiratory Rate 16 16 Blood Pressure 116/68 116/68 Blood Pressure Mean 84 84 Pulse Ox 100 100 Oxygen Delivery Method Room Air MDM MDM MDM Narrative Medical decision making narrative: Patient CBC shows normal white count. Hemoglobin is little bit low but higher than recent but he also is dehydrated. Platelets are normal. Electrolytes show minimally low sodium potassium. However, he does have high BUN and high creatinine with a doubling of his creatinine consistent with an acute kidney injury. I think this likely is all occurred over the last 3 to 4 days based on his history. Liver function test show minimal elevation alkaline phosphatase. Lipase is slightly up but I do not think this represents acute pancreatitis as his CT doesnot show signs of that. CT scan of his abdomen looked at by me does not show any sign of obstruction. There is a few air-fluid levels but no distended bowels. Radiology does note findings consistent with possible gastric ulcer. This could explain some of hissymptomatology. He will be treated with IV pantoprazole. Rectal exam was done that was a little uncomfortable for the patient but there is no mass. No sign of infection. Hemoccult is sent off and pending. With this patient's age, decreased p.o. intake, nausea, pain, acute kidney injury I do not think going back to assisted living would be appropriate. He and family agree. I discussed case with hospitalist. Lab Data Labs: Laboratory Results - last 24 hr 01/29/23 20:10 WBC 10.4 RBC 3.76 L Hgb 12.4 L Hct 37.0 L MCV 98.4 H MCH 33.0 H MCHC 33.5 RDW Std Deviation 49.1 H RDW Coeff of Donald 13.6 Plt Count 301 MPV 10.1 Immature Gran % (Auto) 0.500 Neut % (Auto) 68.9 Lymph % (Auto) 19.9 Cole % (Auto) 9.4 Eos % (Auto) 0.9 Baso % (Auto) 0.4 Absolute Neuts (auto) 7.2 Absolute Lymphs (auto) 2.07 Nucleated RBC % 0 Sodium 133 L Potassium 3.4 L Chloride 98 Carbon Dioxide 24.0 Anion Gap 11 BUN 39 H Creatinine 2.50 H Estim Creat Clear Calc 20.20 Est GFR (MDRD) Af Amer 32 L Est GFR (MDRD) Non-Af 26 L BUN/Creatinine Ratio 15.6 Glucose 101 Calcium 9.0 Total Bilirubin 0.70 AST 22 ALT 33 Alkaline Phosphatase 136 H Total Protein 7.7 Albumin 3.5 Globulin 4.2 Albumin/Globulin Ratio 0.8 L Lipase 77 H Radiography Diagnostic Testing: Clinical Impression(s) from Imaging Studies Abdomen/Pelvis CT 01/29/23 20:02 IMPRESSION: Possible gastric ulcer. Other incidental findings as above. Electronically Signed: Pranav Owusu MD at 21:36 EDT , EKG Initial EKG: Comments: I independent interpretation the patient's EKG done for history of atrial fibrillation does show atrial fibrillation with a controlled rate at 84. No ventricular ectopy. No acute ST elevation or depression. QRS duration and QTc normal. Discharge Plan Triage Chief Complaint: Abd Pain ED Provider: Evangelista Martinez Dx/Rx/DC Orders Clinical Impression: Acute kidney injury, Anemia, Abdominal pain, Dehydration Prescriptions: No Action finasteride 5 mg tablet 5 mg PO QDAY multivitamin 1 EACH tablet 1 ea PO DAILY gabapentin 300 MG capsule 300 mg PO QHS calcium carbonate-vitamin D3 1 EACH tablet 1 ea PO DAILY doxazosin 1 mg Tablet 2 mg PO QHS Qty: 1 0RF carvedilol 3.125 mg Tablet 3.125 mg PO BIDCM Qty: 1 0RF Rx Instructions: Decreased due to bradycardia and low BP acetaminophen 325 mg Tablet 650 mg PO Q6H PRN PRN (Reason: Pain Score 1-10) Qty: 1 0RF tramadol 50 mg Tablet 25 mg PO Q12H PRN (Reason: Pain Score 4-10) Qty: 10 0RF Rx Instructions: PRN pain 4 or greater ascorbic acid (vitamin C) 500 mg Tablet 1,000 mg PO LUNCH Qty: 1 0RF Rx Instructions: Please give the vitamin C and the ferrous sulfate together once daily with a meal donepezil 5 mg Tablet 5 mg PO QHS Qty: 1 0RF Mag 64 64 mg Tablet,Delayed Release (Dr/Ec) 128 mg PO DAILY Qty: 1 0RF pantoprazole 20 mg tablet,delayed release (DR/EC) 20 mg PO Q12H benzonatate 100 mg capsule 100 mg PO Q6H PRN (Reason: cough) bisacodyl 10 mg suppository 10 mg ND DAILY PRN (Reason: constipation) quetiapine 25 mg Tablet 25 mg PO BID Rx Instructions: 1/2 tablet at 7AM, 1 tab at 9PM hydrocortisone acetate 25 mg Suppository 25 mg ND BID Rx Instructions: BID AND BID PRN amlodipine 2.5 mg tablet 2.5 mg PO DAILY ferrous sulfate [FeroSul] 325 mg (65 mg iron) tablet 325 mg PO DAILY polyethylene glycol 3350 [Miralax] 17 gram/dose powder 17 g PO DAILY Primary Care Provider: Jaime Johnson Referrals: Jaime Johnson MD [Primary Care Provider] - Disposition Disposition: Acute Care Hospital [facility] What to do if you have Problems For any increased pain, shortness of breath, bleeding, nausea or vomiting, chestpain, or any unexpected problems, contact your Primary Care Provider. Call [facility] ([phone]) or report to the closest Emergency Room. Call 911 if necessary. 01/29/232225 <Electronically signed by Evangelista Martinez MD> Cosigner Signature (if applicable): CC: Dr. Jaime Johnson MD ~ Signed [facility] Work Phone: [phone] 679-958208-26-2023 Discharge summary Author Evangelista Martinez [facility] January 29, 2023 10:26pm Note Date/Time January 29, 2023 8: 42pm [facility] Medical Records Department [facility] [place] [address] Emergency Department Summary 01/29/23 MR#: [id number] Acct: [id number] Name: ATIF COLÓN Rep #:[id number] : 1935 [id number] From: Evangelista Martinez MD PCP: Dr. Jaime Johnson MD Status :REG ER Location: ED HPI History of Present Illness Chief Complaint: Abd Pain Informant: patient and family Narrative Narrative: Patient presents with abdominal pain. Patient is not the best informant. He does have dementia. History is from him and family members. The overall story is that he has been having some abdominaldiscomfort for about 3 or so days. He is not moving his bowels well. He has nausea but no vomiting. He has not really been eating and drinking much. He denies urinary symptoms. He was seen today as an outpatient. He had blood workand plain films that were concerning for small bowel obstruction and dehydration. I do not have access to these results. He was sent in here for evaluation. Of note, it sounds like the patient may have had an inguinal herniarepair in the past but no other abdominal surgery. No history of cancer. No recent weight loss. No trauma. Nothing I can get makes the symptoms better or worse. PFSH PFSH Medical History A-fib BPH (benign prostatic hyperplasia) Chronic renal failure, stage 3a Dark stools Fall GERD (gastroesophageal reflux disease) H/O normocytic normochromic anemia Hypertension Neuropathic pain Restless legs syndrome Home Medications calcium carbonate 600 mg-vitamin D3 10 mcg (400 unit) tablet 1 ea PO DAILY suppliment 07/02/15 [History Last Taken 12/31/22] gabapentin 300 mg capsule 300 mg PO QHS restless legs 07/02/15 [History Last Taken Unknown] multivitamin 1 ea PO DAILY supplement 07/02/15 [History Last Taken Unknown] finasteride 5 mg tablet 5 mg PO QDAY urinary retention 05/17/17 [History Last Taken Unknown] amlodipine 2.5 mg tablet 2.5 mg PO DAILY blood pressure 12/31/22 [History Last Taken Unknown] ferrous sulfate 325 mg (65 mg iron) tablet (FeroSul) 325 mg PO DAILY suppliment 12/31/22 [History Last Taken 12/31/22] polyethylene glycol 3350 17 gram/dose oral powder (Miralax) 17 g PO DAILY laxative 12/31/22 [History Last Taken 12/31/22] acetaminophen 325 mg tablet 650 mg (2 x 325 mg) PO Q6H PRN PRN Pain Score 1-10 #1 TAB 01/11/23 [Rx Last Taken Unknown] ascorbic acid (vitamin C) 500 mg tablet 1,000 mg (2 x 500 mg) PO LUNCH #1 TAB 01/11/23 [Rx Last Taken Unknown] carvedilol 3.125 mg tablet 3.125 mg PO BIDCM #1 TAB 01/11/23 [Rx Last Taken Unknown] donepezil 5 mg tablet 5 mg PO QHS #1 TAB 01/11/23 [Rx Last Taken Unknown] doxazosin 1 mg tablet 2 mg (2 x 1 mg) PO QHS #1 TAB 01/11/23 [Rx Last Taken Unknown] magnesium chloride 64 mg (magnesium chloride) tablet,delayed release (Mag 64) 128 mg (2 x 64 mg) PO DAILY #1 TAB 01/11/23 [Rx Last Taken Unknown] tramadol 50 mg tablet 25 mg (1/2 x 50 mg) PO Q12H PRN Pain Score 4-10 #10 tabs 01/11/23 [Rx Last Taken Unknown] benzonatate 100 mg capsule 100 mg PO Q6H PRN cough 01/29/23 [History Last Taken Unknown] bisacodyl 10 mg rectal suppository 10 mg ND DAILY PRN constipation 01/29/23 [History Last Taken Unknown] hydrocortisone acetate 25 mg rectal suppository 25 mg ND BID Hemorrhoidal pain 01/29/23 [History Last Taken Unknown] pantoprazole 20 mg tablet,delayed release 20 mg PO Q12H 01/29/23 [History Last Taken Unknown] quetiapine 25 mg tablet 25 mg PO BID 01/29/23 [History Last Taken Unknown] Allergy/AdvReac Type Severity Reaction Status Date / Time Penicillins Allergy Rash Verified 01/29/23 19:17 Family History Mother Cirrhosis of liver Surgical History H/O hernia repair Hx of cholecystectomy S/P right rotator cuff repair Unspecified nasal polyp Social History household members: spouse current occupational status: retired Smoking Status: Former smoker how long ago did patient quit smokin years ago ROS ROS ED ROS Narrative A complete review of systems was performed and is negative except as documented in the history of present illness. Some specific details below. Constitutional: No recent fevers or chills. He does feel worn out. EYE: No color change. ENT: No difficulty swallowing. No swelling. No pain. No GERD. CV: No chest pain or palpitations. Respiratory: No dyspnea. No hemoptysis. No difficulty taking breaths. GI: Please see history of present illness. He is pain but cannot localize it. No back pain. Nausea but no vomiting. : No frequency dysuria or hematuria. Sounds like there is no difficulty starting urination. No burning. Musculoskeletal: No recent trauma. No pains. Skin: No rash. Nondiaphoretic. Neuro: No weakness or numbness. Endocrine: No polyuria or polydipsia. EXAM Physical Exam Narrative Exam Narrative: CONSTITUTIONAL: Patient is nontoxic in appearance. The patient is laying on his left side in the bed. HEENT: No notable trauma. Mucous membranes do look a bit dry. No sinus tenderness. No indication of pain with swallowing. EYES: No conjunctival injection. No icterus. CARDIOVASCULAR: Regular rate. He does sound like he has an irregular rhythm butdoes have a known history of atrial fibrillation. It appears as though he is not on any anticoagulation though. No notable murmur. No JVD. RESPIRATORY: No respiratory distress. Breathing is unlabored. No wheezes. No rhonchi. No rales. No pain with a deep breath. GASTROINTESTINAL: Not distended. Bowel sounds are slightly increased. I really do not get any localized tenderness. No guarding or rebound. I do not feel anyfullness or sign of hernia in his groin. I see no umbilical hernia. There is alittle bit of fullness above this that could be a slight ventral hernia but doesnot appear to be incarcerated. GENITOURINARY: No tenderness over the bladder. No CVA tenderness. MUSCULOSKELETAL: Atraumatic. No tenderness NEUROLOGICAL: Patient is alert and appropriate. No focal deficit noted. He is not the best informant but evidently this is baseline for him. SKIN: No noted rashes. No diaphoresis. PSYCHIATRIC: Patient is calm. Mood is appropriate. Const Vital Signs: 01/29/23 19:15 01/29/23 19:54 Temperature 97.2 F L 97.2 F L Temperature Source Temporal Temporal Pulse Rate 51 L 51 L Respiratory Rate 16 16 Blood Pressure 116/68 116/68 Blood Pressure Mean 84 84 Pulse Ox 100 100 Oxygen Delivery Method Room Air MDM MDM MDM Narrative Medical decision making narrative: Patient CBC shows normal white count. Hemoglobin is little bit low but higher than recent but he also is dehydrated. Platelets are normal. Electrolytes show minimally low sodium potassium. However, he does have high BUN and high creatinine with a doubling of his creatinine consistent with an acute kidney injury. I think this likely is all occurred over the last 3 to 4 days based on his history. Liver function test show minimal elevation alkaline phosphatase. Lipase is slightly up but I do not think this represents acute pancreatitis as his CT doesnot show signs of that. CT scan of his abdomen looked at by me does not show any sign of obstruction. There is a few air-fluid levels but no distended bowels. Radiology does note findings consistent with possible gastric ulcer. This could explain some of hissymptomatology. He will be treated with IV pantoprazole. Rectal exam was done that was a little uncomfortable for the patient but there is no mass. No sign of infection. Hemoccult is sent off and pending. With this patient's age, decreased p.o. intake, nausea, pain, acute kidney injury I do not think going back to assisted living would be appropriate. He and family agree. I discussed case with hospitalist. Lab Data Labs: Laboratory Results - last 24 hr 01/29/23 20:10 WBC 10.4 RBC 3.76 L Hgb 12.4 L Hct 37.0 L MCV 98.4 H MCH 33.0 H MCHC 33.5 RDW Std Deviation 49.1 H RDW Coeff of Donald 13.6 Plt Count 301 MPV 10.1 Immature Gran % (Auto) 0.500 Neut % (Auto) 68.9 Lymph % (Auto) 19.9 Cole % (Auto) 9.4 Eos % (Auto) 0.9 Baso % (Auto) 0.4 Absolute Neuts (auto) 7.2 Absolute Lymphs (auto) 2.07 Nucleated RBC % 0 Sodium 133 L Potassium 3.4 L Chloride 98 Carbon Dioxide 24.0 Anion Gap 11 BUN 39 H Creatinine 2.50 H Estim Creat Clear Calc 20.20 Est GFR (MDRD) Af Amer 32 L Est GFR (MDRD) Non-Af 26 L BUN/Creatinine Ratio 15.6 Glucose 101 Calcium 9.0 Total Bilirubin 0.70 AST 22 ALT 33 Alkaline Phosphatase 136 H Total Protein 7.7 Albumin 3.5 Globulin 4.2 Albumin/Globulin Ratio 0.8 L Lipase 77 H Radiography Diagnostic Testing: Clinical Impression(s) from Imaging Studies Abdomen/Pelvis CT 01/29/23 20:02 IMPRESSION: Possible gastric ulcer. Other incidental findings as above. Electronically Signed: Pranav Owusu MD at 21:36 EDT , EKG Initial EKG: Comments: I independent interpretation the patient's EKG done for history of atrial fibrillation does show atrial fibrillation with a controlled rate at 84. No ventricular ectopy. No acute ST elevation or depression. QRS duration and QTc normal. Discharge Plan Triage Chief Complaint: Abd Pain ED Provider: Evangelista Martinez Dx/Rx/DC Orders Clinical Impression: Acute kidney injury, Anemia, Abdominal pain, Dehydration Prescriptions: No Action finasteride 5 mg tablet 5 mg PO QDAY multivitamin 1 EACH tablet 1 ea PO DAILY gabapentin 300 MG capsule 300 mg PO QHS calcium carbonate-vitamin D3 1 EACH tablet 1 ea PO DAILY doxazosin 1 mg Tablet 2 mg PO QHS Qty: 1 0RF carvedilol 3.125 mg Tablet 3.125 mg PO BIDCM Qty: 1 0RF Rx Instructions: Decreased due to bradycardia and low BP acetaminophen 325 mg Tablet 650 mg PO Q6H PRN PRN (Reason: Pain Score 1-10) Qty: 1 0RF tramadol 50 mg Tablet 25 mg PO Q12H PRN (Reason: Pain Score 4-10) Qty: 10 0RF Rx Instructions: PRN pain 4 or greater ascorbic acid (vitamin C) 500 mg Tablet 1,000 mg PO LUNCH Qty: 1 0RF Rx Instructions: Please give the vitamin C and the ferrous sulfate together once daily with a meal donepezil 5 mg Tablet 5 mg PO QHS Qty: 1 0RF Mag 64 64 mg Tablet,Delayed Release (Dr/Ec) 128 mg PO DAILY Qty: 1 0RF pantoprazole 20 mg tablet,delayed release (DR/EC) 20 mg PO Q12H benzonatate 100 mg capsule 100 mg PO Q6H PRN (Reason: cough) bisacodyl 10 mg suppository 10 mg ND DAILY PRN (Reason: constipation) quetiapine 25 mg Tablet 25 mg PO BID Rx Instructions: 1/2 tablet at 7AM, 1 tab at 9PM hydrocortisone acetate 25 mg Suppository 25 mg ND BID Rx Instructions: BID AND BID PRN amlodipine 2.5 mg tablet 2.5 mg PO DAILY ferrous sulfate [FeroSul] 325 mg (65 mg iron) tablet 325 mg PO DAILY polyethylene glycol 3350 [Miralax] 17 gram/dose powder 17 g PO DAILY Primary Care Provider: Jaime Johnson Referrals: Jaime Johnson MD [Primary Care Provider] - Disposition Disposition: Acute Care Hospital [facility] What to do if you have Problems For any increased pain, shortness of breath, bleeding, nausea or vomiting, chestpain, or any unexpected problems, contact your Primary Care Provider. Call [facility] ([phone]) or report to the closest Emergency Room. Call 911 if necessary. 01/29/232225 <Electronically signed by Evangelista Martinez MD> Cosigner Signature (if applicable): CC: Dr. Jaime Johnson MD ~ Signed [facility] Work Phone: [phone]) 706-617308-25-2023 Nurse Note* Rosenda Vitale LPN - 01/29/2023 2:15 PM EDT Call placed to [facility] to retrieve medical records for when patient was placed there. Forwarded to [employer], message left on [facility] - medical records voicemail with Office fax # for them to send records to. Fax also sent to [facility]- medical recordsrequesting medical records be sent over before upcoming appointment Wednesday02/01/2023. Rosenda Vitale LPN documented in this encounterM[facility]08-25-2023 Instructions* Patient Instructions* Fabby Moore APRN.EZ - 01/29/2023 2:12 PM EDT Follow-up next week with Dr. Johnson Hold lasix, amlodipine and iron this weekend documented in this encounterM[facility] Hospital08-25-2023 History of Present illness Narrative* Fabby Moore APRN.EZ - 01/29/2023 1:00 PM EDT 01/29/2023 Patient presents with: Nausea: Unable to eat and drink x3 days SUBJECTIVE: This is a 87 year old, accompanied by daughter, that is here today for Above Complaints. Discharged from [facility] last week after being hospitalized for [...] chest pain, palpitations, leg swelling, abdominal pain, diarrhea , or hematochezia Reviewed available paperwork for hospital admission. Do not have any available paperwork to review from [facility] PAST MEDICAL HISTORY Diagnosis Date Abdominal [...] move to assisted living. Consider stool burden vsobstruction vs gastric ulcer. Possibly related to taking [...] R63.0 - plan as in #1 Fabby Podlogar, INTEGRATED CIRCUIT DESIGN ENGINEER.[employer]MING [employer]UTTER [employer]ACHINE Prescription instructions reviewed with patient as applicable. [...] which included preparing to see the patient, [id number] patient care, completing clinical documentation, obtaining and/or reviewing separately obtained history, performing a medically appropriate examination, counseling and educating the pat ient/family/caregiver, and ordering medications, tests, or procedures. documented in this encounterM[facility] Hospital08-21-2023 Miscellaneous Notes* Telephone Encounter - Jessy Alas LPN - 01/25/2023 4:44 PM EDT Forms faxed to [facility]. * Telephone Encounter - Jordan Johnson MD - 01/25/2023 4:28 PM EDT I have crossed off medications we do not have records for. If I get updated records we may be able to add them back on if he is needing them. Form in outbox. * Telephone Encounter - Jessy Alas LPN - 01/25/2023 4:09 PM EDT Spoke with Rochelle LE at [facility] and reviewed provider's message with her. She [...] least get the others ordered for patient. * Telephone Encounter - Jordan Johnson MD - 01/25/2023 4:05 PM EDT He has several medications on their list that we do not have. It does not look like they were started during his inpatient stay either. Please obtain records from [facility] so we can see what they startedhim on and at what dosage. * Telephone Encounter - Steffanie Nguyễn RN - 01/25/2023 3:02 PM EDT nurse Rochelle @ [facility] calling to say she is faxing a med list to PCP office that was sent with patient in transfer from [facility]. She states there are medications on the MAR from [facility] that differ from the med list sent from PCP office (ie. Seroquel) She is asking if PCP can review med list today and let [facility] know which meds he is to continue. Steffanie Nguyễn RN documented in this encounterMorrow [facility] Hospital08-17-2023 Miscellaneous Notes* Telephone Encounter - Jessy Alas LPN - 01/21/2023 4:28 PM EDT Forms faxed as requested. * Telephone Encounter - Vickie Hooks RN - 01/21/2023 3:04 PM EDT Called and left a detailed voicemail notifying patient of providers message and that nurse would befaxing forms over to [facility] for them. Hospital phone number was left in case patient had any questions. Vickie Hooks RN * Telephone Encounter - Jordan Johnson MD - 01/21/2023 2:14 PM EDT Forms updated and given to nurse to fax. * Telephone Encounter - Jessy Alas LPN - 01/21/2023 2:11 PM EDT Phoned Sheela and she stated she will be self administering her medications but would like staff to administer Taylor[facility]. * Telephone Encounter - Jordan Johnson MD - 01/21/2023 2:02 PM EDT I need to know if he and his will both be administering their own medications. * Telephone Encounter - Jessy Alas LPN - 01/21/2023 10:57 AM EDT Contacted patient's spouse and detailed message left on her secure VM to advise of provider's message. * Telephone Encounter - Jordan Johnson MD - 01/21/2023 10:02 AM EDT I will review them this afternoon when I am back in office. * Telephone Encounter - Iqra Campbell LPN - 01/21/2023 9:24 AM EDT Patient Polina calling asking if forms could be signed quickly, wanting to get transferred to [facility] soon please. * Telephone Encounter - Yoshi Ridley MA - 01/20/2023 1:33 PM EDT POC received. Given to Dr. Johnson for completion and signature. Once signed, please fax to [facility] at [phone] ATTN Luis. Yoshi Ridley MA * Telephone Encounter - Vickie Hooks RN - 01/20/2023 11:09 AM EDT Called Valentina at [facility] in [place], she is going to make sure POC is faxed to Dr Johnson's office. * Telephone Encounter - Jordan Johnson MD - 01/20/2023 8:55 AM EDT Will await forms. * Telephone Encounter - Vickie Hooks RN - 01/20/2023 8:26 AM EDT Pts called in and reports [facility] should have send a POC form over to Dr Johnson to fill out. She reports as soon as the provider fills it out and sends it back her and her can go moveinto [facility]. Please call once forms have been sent back. documented in this encounterM[facility] Hospital08-08-2023 Discharge summary Author Serenity Ozuna [facility] January 12, 2023 11:41am Note Date/Time January 11, 2023 4:4 5pm [facility] Medical Records Department [address] [place] [address] Discharge Summary 01/11/23 1638 MR#: [id number] Acct: [id number] Name: ATIF COLÓN Rep #:[id number] : 1935 87 From: Serenity Ozuna DO PCP: Dr. Jaime Johnson MD Status :ADM IN Location: [id number] Providers Date of Admission: 12/31/22 Date of Discharge: 01/12/23 Primary Care Physician: Dr. Jaime Johnson MD Attending Physician: Dr. Myesha maddox Reason For Visit: Debility with falls due to generalized weakness Diagnosis Discharge Diagnosis (1) Debility: Status: Acute Code(s): R53.81 - Other malaise (2) Hemorrhagic cerebrovascular accident (CVA): Status: Ruled-out Code(s): I61.9 - Nontraumatic intracerebral hemorrhage, unspecified (3) Acute dehydration: Status: Resolved Code(s): E86.0 - Dehydration (4) Acute kidney injury: Status: Resolved Code(s): N17.9 - Acute kidney failure, unspecified (5) Bradycardia: Status: Acute Code(s): R00.1 - Bradycardia, unspecified (6) Dementia: Status: Acute Code(s): F03.90 - Unspecified dementia, unspecified severity, without behavioral disturbance, psychotic disturbance, mood disturbance, and anxiety Qualifiers: Alzheimer's disease onset: unspecified onset Dementia behavioral or psychological symptom: with other behavioral disturbance Dementia severity: moderate Dementia type: Alzheimer's Qualified Code(s): G30.9 - Alzheimer's disease, unspecified; F02.B18 - Dementia in other diseases classified elsewhere,moderate, with other behavioral disturbance (7) Monoclonal gammopathy: Status: Acute Code(s): D47.2 - Monoclonal gammopathy Plan: [place] [employer]. Has follow up scheduled with Dr. Magana. (8) H/O normocytic normochromic anemia: Status: Acute Code(s): Z86.2 - Personal history of diseases of the blood and blood-forming organs and certain disorders involving the immune mechanism Plan: Suspect due to monoclonal gammopathy. (9) Fall: Status: Chronic Code(s): W19.XXXA - Unspecified fall, initial encounter Qualifiers: Encounter type: subsequent encounter Qualified Code(s): W19.XXXD - Unspecified fall, subsequent encounter Plan: Multiple falls over the past year. (10) GERD (gastroesophageal reflux disease): Status: Acute Code(s): K21.9 - Gastro-esophageal reflux disease without esophagitis Qualifiers: Esophagitis presence: esophagitis presence not specified Qualified Code(s): K21.9 - Gastro-esophageal reflux disease without esophagitis (11) Hypertension: Status: Chronic Code(s): I10 - Essential (primary) hypertension Qualifiers: Hypertension type: primary hypertension Qualified Code(s): I10 - Essential (primary) hypertension Plan: Well controlled on amlodipine 2.5 mg daily, Coreg 3.125 mg twice daily and Cardura 2 mg at at bedtime. Orthostatics have been negative. (12) Irregular cardiac rhythm: Status: Acute Code(s): I49.9 - Cardiac arrhythmia, unspecified Plan: Bigeminal PACs with first-degree AV block. No significant ST or T wave changes. QT interval normal (13) Cerumen in auditory canal on examination: Status: Acute Code(s): H61.20 - Impacted cerumen, unspecified ear (14) Hyponatremia: Status: Resolved Code(s): E87.1 - Hypo-osmolality and hyponatremia Plan: Resolved with discontinuation of lisinopril. (15) Cough: Status: Acute Code(s): R05.9 - Cough, unspecified Qualifiers: Cough type: unspecified Qualified Code(s): R05.9 - Cough, unspecified Plan: Etiology uncertain, possibly due to reflux. Tessalon Perles and guaifenesin/dextromethorphan were ineffective. (16) Restless legs syndrome: Status: Acute Code(s): G25.81 - Restless legs syndrome (17) BPH (benign prostatic hyperplasia): Status: Acute Code(s): N40.0 - Benign prostatic hyperplasia without lower urinary tract symptoms Qualifiers: Lower urinary tract symptom detail: urinary retention Lower urinary tract symptom presence: symptoms present Qualified Code(s): N40.1 - Benign prostatic hyperplasia with lower urinary tract symptoms; R33.8 - Other retentionof urine Plan 1. Transfer to [facility] for continued therapy prior to returning home. When he does go home he will need close supervision for dementia with behavioral problems. 2. Needs to follow up with heme/once for the monoclonal gammopathy. 3. Follow-up with neurology for treatment of dementia 4. Will review BMP, CBC and magnesium in the a.m. prior to discharge. 5. Because of the bigeminal rhythm will check K and MAG in the AM. 6. Continue Seroquel. He is much more cooperative and is no longer refusing therapy although he will complain of something, like hemorrhoid pain and then refuse the suppositories he asked for. He is less impulsive. CAn not remeber to use the call light at times and will yell out. No longer rude and impatient with the staff. Medications at Discharge Home Medications calcium carbonate 600 mg-vitamin D3 10 mcg (400 unit) tablet 1 ea PO DAILY suppliment 07/02/15 gabapentin 300 mg capsule 300 mg PO QHS restless legs 07/02/15 multivitamin 1 ea PO DAILY supplement 07/02/15 finasteride 5 mg tablet 5 mg PO QDAY urinary retention 05/17/17 amlodipine 2.5 mg tablet 2.5 mg PO DAILY blood pressure 12/31/22 ferrous sulfate 325 mg (65 mg iron) tablet (FeroSul) 325 mg PO DAILY suppliment 12/31/22 polyethylene glycol 3350 17 gram/dose oral powder (Miralax) 17 g PO DAILY laxative 12/31/22 acetaminophen 325 mg tablet 650 mg (2 x 325 mg) PO Q6H PRN PRN Pain Score 1-10 #1 TAB 01/11/23 ascorbic acid (vitamin C) 500 mg tablet 1,000 mg (2 x 500 mg) PO LUNCH #1 TAB 01/11/23 carvedilol 3.125 mg tablet 3.125 mg PO BIDCM #1 TAB 01/11/23 donepezil 5 mg tablet 5 mg PO QHS #1 TAB 01/11/23 doxazosin 1 mg tablet 2 mg (2 x 1 mg) PO QHS #1 TAB 01/11/23 hydrocortisone acetate 25 mg rectal suppository 25 mg ND BID PRN Hemorrhoidal pain #12 ea 01/11/23 magnesium chloride 64 mg (magnesium chloride) tablet,delayed release (Mag 64) 128 mg (2 x 64 mg) PO DAILY #1 TAB 01/11/23 omeprazole 20 mg capsule,delayed release 40 mg (2 x 20 mg) PO BID gerd #1 cap 01/11/23 quetiapine 25 mg tablet See Rx Instructions .Route .COMPLEX #1 TAB 01/11/23 tramadol 50 mg tablet 25 mg (1/2 x 50 mg) PO Q12H PRN Pain Score 4-10 #10 tabs 01/11/23 trazodone 50 mg tablet 50 mg PO QHS #1 TAB 01/11/23 Hospital Course Operations None Procedures None Summary of Care Provided Minutes Spent on Discharge: 45 Hospital Course: Atif Colón is an 87-year-old male with a past medical history of BPH,presbycusis with hearing aids, GERD, hypertension, restless leg syndrome, chronic renal failure, osteoarthritis and chronic anemia who presented to the EDat [facility] on 12/28/2022 complaining of lightheadedness after a fall in his bathroom. His family found him laying on the toilet seat asleep. He had no visible injuries. When EMS arrived the patient was hypotensive and bradycardic. When he arrived in the emergency department his pulse was 124 with a blood pressure of 87/63. Significant lab included a sodium of 131, potassium of 3.4, BUN of 29and a creatinine of 1.9. Hemoglobin was 13.2 which is high for him as he has had a normochromic normocytic anemia for a few years. IV fluids were administered and the blood pressure responded well. [facility] after an admission for intracerebral hemorrhage. The family stated they were told at [facility] that he did not have a stroke or and intracerebral bleed. He was admitted to the hospitalist service for acute on chronic kidney failure secondary to dehydration. Lisinopril was held due acute on chronic RF. He was started on Coreg to control BP since the Lisinopril was on hold. A tilt test was negative however he had already been hydrated in the emergency department. He was evaluated by PT/OT and he was very weak. Admission to acute rehab was recommended. He was transferred to the acute inpatient rehab unit at [facility] on 12/31/2022 for 3 hours of therapy daily to restore function/independence at or near his baseline. 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 They were able to compare the MRI done at admission to MRI's done in dating as far back as 2013 and the hyperdensity in the putamen that was thought to be due to a bleed was actually present in 2013 and unchanged. Diamond' family were quite concerned about his loss of memory which had been worsening and about the frequent falls. TSH and B12 were checkedto explain memory loss and they were both normal. TSH was 0.72 and the B12 was 1669. There was no suspicion for NPH after reviewing the CT head. He did poorlyon testing by the ST. He was administered a BCAT which is a test for cognition and he scored 25/50 which indicates significant cognitive impairment or dementia(mild). Since there was no stroke the most likely etiology of poor cognitive function is dementia. He was started on Aricept which he is tolerating with no SE. He should follow up with neurology for dementia. At admission to rehab the HGB was 11.5 with an MCV of 100. Folate, TSH andB12 were all normal. the retic count was very mildly elevated at 1.56. Iron studies showed a low iron and a low TIBC with a normal % iron saturation. A [facility] immunoelectrophoresis was obtained and he has a monoclonal gammopathy with aKappa light chain. this may be the etiology of the chronic anemia. An appt wasmade for him to follow up with Dr. Magana. HGB on the day of DC is 9.7. Stool for occult blood was negative. Sodium normalized with the discontinuation of Lisinopril and on the day of DC was 137. BUN on the date of discharge is 33 with a creatinine of 1.19. His fluid intake has been good and his mucous membranes are moist. We will check another week at [facility]. Would also repeat a hemoccult stool. 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 He is not dehydrated on PE. Magnesium is 2.5 on the date of discharge and the calcium is normal at 8.7. Taylor has a cough which he tells me is chronic for a few years. Initially I thought he had post nasal drip because he had rhinorrhea and a mild sore throat. We tried Atrovent nasal spray and this did not help. He also continued with a cough despite Robitussin-DM and Tessalon Perles. A CXR on 01/07/2023 showed hyperinflation but no infiltrates, pulmonary vascular congestionor effusions. He had a chest CT in December 2022 that showed chronic interstitial changes with no superimposed acute pulmonary process. He has been persistently AF with a nl WBC count. He coughs mostly when his family is in the room and seems to cough more at night. It actually sounds more like retching or vigorousclearing of his throat. My office is across from his room and I rarely hear himcough during the day. He does not cough when he is distracted in therapy and hedoes not cough with eating or drinking. He has been a smoker in the past. His lungs have been CTA since arrival on rehab. We had some behavioral issues with Taylor when he first came to rehab. He was very abrupt and rude with the nursing staff and was yelling at staff. He would not cooperate with therapy and refused on multiple occasions. Behavior and cognition got much worse in the evening and h was not sleeping well at night. He was started on Seroquel at HS. We have adjusted the dose as needed and at DC he is on 12.5 mg in the AM, 25 mg at 7PM and 25 mg at 9PM. He also is getting Trazodone 50 at HS. He slept very well the night prior to DC on this dosage. EKG done on 01/11/23 showed no QT prolongation. He had a bigeminal rhythm on 01/11 and the EKG showed bigeminal PAC's with a first degree AV block. There were no significant ST or T wave changes. After the Seroquel was adequately titrated Taylor became much more cooperative and agreeable. He was pleasant to talk to and was no longer yelling, except when he wants/needs something because he forgets to use the calllight. He has gotten stronger. At the time of discharge he is supervision/set up for eating and standby assist with grooming, toileting and bathing. He requires only minimal assistance with upper body and lower body dressing. He iscontact-guard assist for tub/shower transfer. He has ambulated up to 125 feet with a front wheel walker at contact- guard assist. He can ascend/descend 5 steps ranging in height from 4 inches to 6 inches with 2 handrails at contact-guard assist. His TUG test has improved but, it is still 26.04 sec and the goalis < 20 sec. Taylor has many somatic complaints and he has a certain way he likes to do things. He will request a suppository to have a BM and tell me that he uses them daily at home for many years and then the same night he will refuse a suppository and tell nursing he never uses them. He requests something for hemorrhoids and then refuses the medication. He complains of left chest pain and troponins and EKG's have been normal. He complains of back pain. I discontinued Meloxicam due to CRF and he has been getting Tramadol which he tells me helps. I think at times he just wants some attention. I do not think Taylor should be left alone. I also do not think he is stable for DC home yet. He was agreeable to admission to SNF to improve strength. I related to his family that he will need 24/ supervision when he does go home. He should continue daily exercise to maintain his strength once he is discharged home but,I think when he is home he will likely refuse. Taylor should follow up with Dr. Johnson following DC from SNF and we made him an appt to follow up with Dr. Magana for the monoclonal gammopathy. I recommend if possible that he see a psychiatrist while at [facility] Please obtain a hemoccult stool and a CBC and BMP on Wednesday01/15/23. Physical Exam Const alert, oriented x3 and no apparent distress Constitutional Narrative: Sitting in the recliner and looks comfortable. Occasionally will clear his throat. No actual cough. He is appropriate and cooperative. General Appearance: cooperative and well developed HEENT normocephalic and moist oral mucous membranes Neck supple General: trachea midline Resp normal respiratory effort, normal air movement and clear to auscultation bilaterally Resp Narrative: No conversational dyspnea. Effort and Inspection: Negative for tachypneic, respiratory distress, labored oruses accessory muscles Auscultation: diminished lung sounds bilateral (Mildly diminished posterior in the bases. ) Cardio regular rate, regular rhythm, S1 normal heart sound, S2 normal heart sound, no murmurs, no rub and no gallops Cardio Narrative: He is currently in a bigeminal rhythm and briefly it was irreg irreg. Rate: Negative for tachycardic GI normal to inspection, nondistended, normoactive bowel sounds, soft to palpation and non-tender GI Narrative: No guarding with palpation Inspection: Negative for abdominal distention Extremity no calf tenderness General Extremity: Negative for clubbing or edema Skin Skin Narrative: Some bruising on the UE's due to lab draws and IV's. General Skin Exam: no breakdown Rashes: no rashes Wounds: Negative for wounds noted Neuro CN's II-XII intact bilaterally, no focal motor deficits and no sensory deficits noted Neuro Narrative: He has generalized weakness. Speech: speech normal Motor Exam: general weakness Psych cooperative, affect normal, denies homicidal ideation and denies suicidal ideation Psych Narrative: seems anxious at times. Appearance: appropriate Attitude: No agitated Activity / Motor Behavior: Negative for restless Weight / BMI Weight Weight: 169 lb 1.513 oz Body Mass Index (BMI) 28.1 ABG / Lab / Microbiology Data 01/12/23 05:38 01/12/23 05:38 Meaningful Use Info Meaningful Use Diagnoses (Choose all that apply): None applicable Discharge Plan Admission Admit Date/Time: 12/31/22 13:57 Primary Reason for Your Visit: Physical debility secondary to generalized weakness/deconditioning. Attending Provider: Anuj Tao Chi Primary Care Provider: Jaime Johnson Discharge Orders/Prescriptions Prescriptions: New doxazosin 1 mg Tablet 2 mg PO QHS Qty: 1 0RF carvedilol 3.125 mg Tablet 3.125 mg PO BIDCM Qty: 1 0RF Rx Instructions: Decreased due to bradycardia and low BP acetaminophen 325 mg Tablet 650 mg PO Q6H PRN PRN (Reason: Pain Score 1-10) Qty: 1 0RF tramadol 50 mg Tablet 25 mg PO Q12H PRN (Reason: Pain Score 4-10) Qty: 10 0RF Rx Instructions: PRN pain 4 or greater ascorbic acid (vitamin C) 500 mg Tablet 1,000 mg PO LUNCH Qty: 1 0RF Rx Instructions: Please give the vitamin C and the ferrous sulfate together once daily with a meal donepezil 5 mg Tablet 5 mg PO QHS Qty: 1 0RF hydrocortisone acetate 25 mg Suppository 25 mg ND BID PRN (Reason: Hemorrhoidal pain) Qty: 12 0RF Mag 64 64 mg Tablet,Delayed Release (Dr/Ec) 128 mg PO DAILY Qty: 1 0RF quetiapine 25 mg Tablet See Rx Instructions .ROUTE .COMPLEX Qty: 1 0RF Rx Instructions: 1/2 tablet at 7AM, 1 tab at 7 PM and 1 tab at 9PM trazodone 50 mg Tablet 50 mg PO QHS Qty: 1 0RF Continued finasteride 5 mg tablet 5 mg PO QDAY multivitamin 1 EACH tablet 1 ea PO DAILY gabapentin 300 MG capsule 300 mg PO QHS calcium carbonate-vitamin D3 1 EACH tablet 1 ea PO DAILY amlodipine 2.5 mg tablet 2.5 mg PO DAILY ferrous sulfate [FeroSul] 325 mg (65 mg iron) tablet 325 mg PO DAILY polyethylene glycol 3350 [Miralax] 17 gram/dose powder 17 g PO DAILY Changed omeprazole 20 MG capsule 40 mg PO BID Qty: 1 0RF Discontinued lisinopril 40 MG tablet 40 mg PO DAILY Hold Instructions: Hold for 3 days follow-up with BMP and check with PCP, recommend starting with lower dose. terazosin 2 MG capsule 5 mg PO QHS furosemide [Lasix] 40 mg tablet 40 mg PO DAILY carvedilol 6.25 mg tablet 6.25 mg PO Q12H hydroxyzine pamoate [Vistaril] 50 mg capsule 50 mg PO QHS PRN (Reason: sleep) meloxicam 15 mg tablet 15 mg PO DAILY PRN PRN (Reason: pain) Hold Instructions: Hold for LOKI. benzonatate 100 mg Capsule 200 mg PO TID PRN PRN (Reason: COUGH) Qty: 0 0RF tramadol 50 mg Tablet 50 mg PO Q6H PRN PRN (Reason: Pain Score 4-10) Qty: 0 0RF Mucinex DM 30-600 mg Tablet Extended Release 12 Hr 2 tab PO BID 7 Days Qty: 0 0RF Referrals / Follow Up: Remigio Lind [Other] - 01/21/23 10:00 am (Neurologist follow up for dementia ) Jaime Johnson MD [Primary Care Provider] - Tim Raymond MD [Med Staff - Active Staff] - Wilder Magana MD [Med Staff - Active Staff] - (multiple myeloma Referral sent office will call to set up appt. ) Disposition Disposition (needs filled in before D/C Order can be placed): Retirement Facility Charges/Coding Visit Charges Inpatient E&M: 87071 Disch Hosp >30min 01/12/23 1141 <Electronically signed by Serenity Ozuna DO> Cosigner Signature (if applicable): CC: Dr. Jaime Johnson MD; Dr. Wilder Magana MD; Dr. Serenity Ozuna DO~ Signed [facility] Work Phone: [phone]) 645-704308-07-2023 Discharge summary Author Serenity Ozuna [facility] January 11, 2023 4:38pm Note Date/Time January 11, 2023 4:0 3pm [facility] Medical Records Department [address] [place] [address] Transfer to [facility] MR#: [id number] Acct: [id number] Name: ATIF COLÓN Rep #:[id number] : 1935 87 From: Serenity Ozuna DO PCP: Dr. Jaime Johnson MD Status :ADM IN Certification of patient admission REQUIRED AT TIME OF ADMISSION. I CERTIFY THAT POST-HOSPITAL ECF SERVICES ARE REQUIRED TO BE GIVEN ON AN IN-PATIENT BASIS BECAUSE OF THE ABOVE NAMED PATIENT'S NEED FOR [facility] CARE ON A CONTINUING BASIS FOR THE CONDITION(S) FOR WHICH HE/SHE WAS RECEIVING IN-PATIENT HOSPITAL SERVICES PRIOR TO HIS/HER TRANSFER TO THE F. 01/11/23 1638<Electronically signed by Serenity Ozuna DO> Diet Diet Order/Speech Therapy: 12/31/22 14:41 Diet: Regular - General Routine Orders/Code Status Enema Type: Fleetz Enema Frequency: Daily PRN Suppository Type: Dulcolax 10mg Suppository Frequency: Daily PRN O2 Liters per Minute: 1-2 O2 Frequency: PRN Keep PO Greater than or Equal to (%): 90 Code Status: Full Code Wound(s) left AC: Wound Type: Skin Tear Therapies Weight Bearing: Full weight bearing Physical Therapy: Eval and Treat Occupational Therapy: Eval and Treat Speech Therapy: Eval and Treat Problem/Diagnosis (1) Debility: Status: Acute Code(s): R53.81 - Other malaise Comment: due to generalized weakness and deconditioning with multiple falls over the pastyear. (2) Hemorrhagic cerebrovascular accident (CVA): Status: Ruled-out Code(s): I61.9 - Nontraumatic intracerebral hemorrhage, unspecified Comment: This was ruled out. Initial CT/MRI of the head showed a hyperdensity in the thalamus which was though to be a intracerebral bleed/hemorrhagic stroke howeverthe previous hospital was able to compared to a MRI done in 2014 which showed the same hyperdensity and it has not changed in the past 9 years. (3) Acute dehydration: Status: Resolved Code(s): E86.0 - Dehydration Comment: He is now eating and drinking well. (4) Acute kidney injury: Status: Resolved Code(s): N17.9 - Acute kidney failure, unspecified Comment: Resolved with hydration. (5) Bradycardia: Status: Acute Code(s): R00.1 - Bradycardia, unspecified Comment: Improved with decrease in the Coreg dose from 12.5 mg BID to 3.25 mg BID. BP iswell controlled and the HR is good with no lightheadedness. (6) Dementia: Status: Acute Code(s): F03.90 - Unspecified dementia, unspecified severity, without behavioral disturbance, psychotic disturbance, mood disturbance, and anxiety Comment: I recommend he follow up with neurology. (7) Monoclonal gammopathy: Status: Acute Code(s): D47.2 - Monoclonal gammopathy Comment: Increased kappa light chain with chronic anemia for the past few years. Iron, B12, folate and TSH are all WNL. The iron is low normal so we elected to continue the iron supplement and add Vitamin C since he is chronically on a PPI. (8) H/O normocytic normochromic anemia: Status: Acute Code(s): Z86.2 - Personal history of diseases of the blood and blood-forming organs and certain disorders involving the immune mechanism Comment: Suspect secondary to a monoclonal gammopathy. (9) Fall: Status: Chronic Code(s): W19.XXXA - Unspecified fall, initial encounter Comment: Multiple falls over the past year (10) GERD (gastroesophageal reflux disease): Status: Acute Code(s): K21.9 - Gastro-esophageal reflux disease without esophagitis (11) Hypertension: Status: Chronic Code(s): I10 - Essential (primary) hypertension Comment: Well controlled on Coreg 3.125 mg twice daily, amlodipine 2.5 mg daily and Cardura 2 mg p.o. nightly. Orthostatic vital signs are negative and I suspect the Cardura is being used for BPH. He is also on Proscar. (12) Irregular cardiac rhythm: Status: Acute Code(s): I49.9 - Cardiac arrhythmia, unspecified Comment: Bigeminal PAC's with first degree AVB on 01/11/23. No ST elevation and no significant ST depression. QTI is WNL. (13) Cerumen in auditory canal on examination: Status: Acute Code(s): H61.20 - Impacted cerumen, unspecified ear Comment: Continue Debrox ear drops. Plan 1. Transfer to [facility] for continued therapy prior to returning home. When he does go home he will need close supervision for dementia with behavioral problems. 2. Needs to follow up with heme/once for the monoclonal gammopathy. 3. Follow-up with neurology for treatment of dementia 4. Will review BMP, CBC and magnesium in the a.m. prior to discharge. 5. Because of the bigeminal rhythm will check K and MAG in the AM. 6. Continue Seroquel. He is much more cooperative and is no longer refusing therapy although he will complain of something, like hemorrhoid pain and then refuse the suppositories he asked for. He is less impulsive. CAn not remeber to use the call light at times and will yell out. No longer rude and impatient with the staff. Allergies/Procedures Done in Hospital Allergies Penicillins Allergy (Verified 12/28/22 22:09) Rash Procedures: None Type of Care/Length of Stay Estimated LOS: Convalescent Care Less Than 30 days Type of Care Needed: Skilled Rehab Potential: Good Prognosis: Fair Additional Orders/Day of Discharge Additional Orders: He has a cough, usually when someone else is in the room. Itis more like dry heaves than a cough. It is non-productive and his Lungs have been consistently CTA. Chest x-ray showed no infiltration, no pulmonary vascular congestion and no effusions. He does have hyperinflation and chronic interstitial changes on CT chest. He has been a smoker in the past. He has not had any wheezing. I think he is making himself cough. The cough seems worse at night when he lies down and he has a hx of reflux. He was on Protonix 20 mg BID and it was increased to 40 mg BID on 01/11/23. We tried Tessalon Perlesand guaifenesin with dextromethorphan and neither of these helped. Consider elevating the head of the bed on 6 blocks at night. He does not cough with eating or drinking and he does not cough when he is distracted with doing therapy. He often c/o left chest pain. Multiple EKG's have been unremarkable and he has had troponin checked twice and it was normal. Please give Mylanta if he complains of L chest pain. H&P will serve as current which was dated: 12/31/22 Day of Discharge: 01/12/23 Dietary and Speech Recommendations Dietitian Recommendations/Changes: Continue current diet orders. No nutrition dxat this time. Expect needs to be met with diet at this time. Will continue to follow for changes in nutrition status. Follow Up Care Please follow up with your Primary Care Physician in: when you return home Please Follow Up With: neurology Please Follow Up With: Wilder Magana MD When: Discharge Plan Admission Admit Date/Time: 12/31/22 13:57 Primary Reason for Your Visit: Physical debility secondary to generalized weakness/deconditioning. Attending Provider: Anuj Tao Chi Primary Care Provider: Jaime Johnson Discharge Orders/Prescriptions Prescriptions: New doxazosin 1 mg Tablet 2 mg PO QHS Qty: 1 0RF carvedilol 3.125 mg Tablet 3.125 mg PO BIDCM Qty: 1 0RF Rx Instructions: Decreased due to bradycardia and low BP acetaminophen 325 mg Tablet 650 mg PO Q6H PRN PRN (Reason: Pain Score 1-10) Qty: 1 0RF tramadol 50 mg Tablet 25 mg PO Q12H PRN (Reason: Pain Score 4-10) Qty: 10 0RF Rx Instructions: PRN pain 4 or greater ascorbic acid (vitamin C) 500 mg Tablet 1,000 mg PO LUNCH Qty: 1 0RF Rx Instructions: Please give the vitamin C and the ferrous sulfate together once daily with a meal donepezil 5 mg Tablet 5 mg PO QHS Qty: 1 0RF hydrocortisone acetate 25 mg Suppository 25 mg ND BID PRN (Reason: Hemorrhoidal pain) Qty: 12 0RF Mag 64 64 mg Tablet,Delayed Release (Dr/Ec) 128 mg PO DAILY Qty: 1 0RF quetiapine 25 mg Tablet See Rx Instructions .ROUTE .COMPLEX Qty: 1 0RF Rx Instructions: 1/2 tablet at 7AM, 1 tab at 7 PM and 1 tab at 9PM trazodone 50 mg Tablet 50 mg PO QHS Qty: 1 0RF Continued finasteride 5 mg tablet 5 mg PO QDAY multivitamin 1 EACH tablet 1 ea PO DAILY gabapentin 300 MG capsule 300 mg PO QHS calcium carbonate-vitamin D3 1 EACH tablet 1 ea PO DAILY amlodipine 2.5 mg tablet 2.5 mg PO DAILY ferrous sulfate [FeroSul] 325 mg (65 mg iron) tablet 325 mg PO DAILY polyethylene glycol 3350 [Miralax] 17 gram/dose powder 17 g PO DAILY Changed omeprazole 20 MG capsule 40 mg PO BID Qty: 1 0RF Discontinued lisinopril 40 MG tablet 40 mg PO DAILY Hold Instructions: Hold for 3 days follow-up with BMP and check with PCP, recommend starting with lower dose. terazosin 2 MG capsule 5 mg PO QHS furosemide [Lasix] 40 mg tablet 40 mg PO DAILY carvedilol 6.25 mg tablet 6.25 mg PO Q12H hydroxyzine pamoate [Vistaril] 50 mg capsule 50 mg PO QHS PRN (Reason: sleep) meloxicam 15 mg tablet 15 mg PO DAILY PRN PRN (Reason: pain) Hold Instructions: Hold for LOKI. benzonatate 100 mg Capsule 200 mg PO TID PRN PRN (Reason: COUGH) Qty: 0 0RF tramadol 50 mg Tablet 50 mg PO Q6H PRN PRN (Reason: Pain Score 4-10) Qty: 0 0RF Mucinex DM 30-600 mg Tablet Extended Release 12 Hr 2 tab PO BID 7 Days Qty: 0 0RF Referrals / Follow Up: Jaime Johnson MD [Primary Care Provider] - Wilder Magana MD [Med Staff - Active Staff] - (multiple myeloma ) Disposition Disposition (needs filled in before D/C Order can be placed): Retirement Facility (6) Dementia Qualifiers: Dementia type: unspecified type (9) Fall Qualifiers: Encounter type: subsequent encounter Qualified Code(s): W19.XXXD - Unspecified fall, subsequent encounter (10) GERD (gastroesophageal reflux disease) Qualifiers: Esophagitis presence: esophagitis presence not specified Qualified Code(s): K21.9 - Gastro-esophageal reflux disease without esophagitis (11) Hypertension Qualifiers: Hypertension type: primary hypertension Qualified Code(s): I10 - Essential (primary) hypertension 01/11/23 9314 <Electronically signed by Serenity Ozuna DO> Cosigner Signature (if applicable): CC: Dr. Jaime Johnson MD; Dr. Wilder Magana MD ~ [facility] Work Phone: [phone]) 464-160208-07-2023 Progress note Author Serenity Ozuna [facility] January 11, 2023 3:36pm Note Date/Time January 11, 2023 11: 10am [facility] Medical Records Department [address] [place] [address] Progress Note 01/11/23 1106 MR#: [id number] Acct: [id number] Name: ATIF COLÓN Rep #:[id number] : 1935 87 From: Serenity Sethimichelle DO PCP: Dr. Jaime Johnson MD Status :ADM IN Location: [address] Subjective Subjective Taylor was seen on TEAM rounds today. His , son and dtr Celeste were present in the room and his dtr Piedad participated by phone. Afebrile VSS-blood pressure is within goal. Heart has ranged from 58-78 over the past 2 days. Maintaining appropriate oxygen saturation on RA - 97 100% on room air Oral intake is good for both fluids and nutrition. Discussed with nursing - He did not sleep well last night. Seroquel is ordered for 21 hundred and he did not get the medication until 22:53. It was reported to me that he was agitated and on his call light frequently. Reviewed the PT/OT/ST notes Medication list reviewed. He has had troponins done twice at night for complaints of chest pain. Troponins were negative and the EKG showed no ST elevation or significant ST segment depression. Denies cephalgia, Lightheadedness, N/V/abd pain, Objective Data Objective Data Vital Signs: Vital Signs Temp Pulse Resp BP Pulse Ox O2 Del Method 97.9 F 69 20 H 128/54 H 100 Room Air 01/11/23 07:46 01/11/23 07:46 01/11/23 07:46 01/11/23 07:46 01/11/23 07:46 01/11/23 07:46 Oxygen Delivery Method Room Air Weight: 169 lb 1.513 oz Body Mass Index (BMI) 28.1 Intake & Output: Intake and Output for Last 24 Hours 08/05/23 08/06/23 08/07/23 23:59 23:59 23:59 Intake Total 2520 / 2520 1880 / 2180 840 / 840 Output Total 1000 / 1000 1600 / 2000 775 / 775 Balance 1520 / 1520 280 / 180 65 / 65 Lab / Micro Data 01/07/23 05:29 01/07/23 05:29 Physical Exam Const alert General Appearance: cooperative and well developed HEENT normocephalic HEENT Narrative: R ear is partially occluded with dry cerumen but I can see the TM and it is normal without redness or perforation. The left ear is also partially occluded. Mouth: dry mucous membranes Resp normal respiratory effort, normal air movement and clear to auscultation bilaterally Effort and Inspection: Negative for tachypneic or labored Cardio regular rate, S1 normal heart sound, S2 normal heart sound, no rub and no gallops Cardio Narrative: He is currently in a bigeminal rhythm and briefly it was irreg irreg. GI normal to inspection, nondistended, normoactive bowel sounds, soft to palpation and non-tender GI Narrative: No guarding with palpation Extremity no calf tenderness General Extremity: Negative for edema Skin General Skin Exam: no breakdown Rashes: no rashes Neuro CN's II-XII intact bilaterally, no focal motor deficits and no sensory deficits noted Speech: speech normal Psych cooperative and affect normal Appearance: appropriate Attitude: No agitated Activity / Motor Behavior: Negative for restless Assessment & Plan Assessment/Plan (1) Debility: (2) Hemorrhagic cerebrovascular accident (CVA): (3) Acute dehydration: (4) Acute kidney injury: (5) Bradycardia: (6) Dementia: QUALIFIERS: Dementia type: unspecified type (7) Monoclonal gammopathy: (8) H/O normocytic normochromic anemia: (9) Fall: QUALIFIERS: Encounter type: subsequent encounter Qualified Code(s): W19.XXXD - Unspecified fall, subsequent encounter (10) GERD (gastroesophageal reflux disease): (11) Hypertension: QUALIFIERS: Hypertension type: primary hypertension Qualified Code(s): I10 - Essential (primary) hypertension (12) Irregular cardiac rhythm: (13) Cerumen in auditory canal on examination: PLAN: Plan 1. Continue therapy 2. CBC, mag and BMP in the AM 3. He has refused Debrox ear drops and he tells me that he cleaned his ears outwith Q tips today. 4. EKG now and hopefully we can catch the dysrhythmia. Denies palpitations and lightheadedness. 5. BP is well controlled on the current regimen and he has no concerning bradycardia and the HR does increase with exercise. He denies lightheadedness. 6. Waiting to hear about pre-cert for transfer to [facility]. 7. 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 8. I reinforced with him that he should not use Q-tips and he should take the Debrox to soften the wax.....may benefit from ear candling 9. Will try splitting the Seroquel at night and give 25 mg at 7 PM and another 25mg at 2100 10. Add Trazodone at HS for insomnia. Charges/Coding Visit Charges Inpatient E&M: 53487 Subs Hosp L2 01/11/23 1536 <Electronically signed by Serenity Ozuna DO> Serenity Ozuna DO Cosigner Signature (if applicable): CC: ~ Signed [facility] Work Phone: 1([phone]) 832-501708-04-2023 Progress note Author [facility] January 08, 2023 11:18am Note Date/Time January 07, 2023 10: 28am [facility] Medical Records Department [address] [place] [id number] Progress Note 01/07/23 1019 MR#: [id number] Acct: [id number] Name: ATIF COLÓN Rep #:[id number] : 1935 87 From: Serenity Ozuna DO PCP: Dr. Jaime Johnson MD Status :ADM IN Location: [place] [address]1 Subjective Subjective afebrile VSS - orthostatics have not been done yet today......will reorder. Maintaining appropriate oxygen saturation on RA Oral intake is good. Discussed with nursing - He fell asleep at 10PM and slept well through the night. Rare cough when sleeping. Taylor tells me that he did not sleep well andwas up most of the night coughing. Reviewed the PT/OT/ST notes Medication list reviewed. All lab drawn this morning was personally reviewed. The white blood cell count is normal. Hemoglobin is stable at 11.4 and platelets are 288,000. Sodium today is 138 and the potassium is 4.1. The BUN has decreased from 36-25. Creatinine today is 1.21 with an estimated creatinine clearance of 38.83 and a GFR of 61. Hemoglobin A1c is 5.5 and calcium, magnesium and phosphorus are all within normal limits. SPE/IEF shows a IgG monoclonal protein with kappa light chain specificity. AG is low at 4. Taylor did not cough while I was sitting in my office but, when I went into his room he started with a harsh clearing of his throat. He has no conversational dyspnea and he is not tachypneic. When I had him take deep breaths and listenedanteriorly he started grunting. He denied CP when I was in his room. He is c/oback pain. His shoulder pain is better today and he is not c/o of this. He denies lightheadedness, cephalgia, trouble swallowing, N/V/abd pain, constipation, diarrhea, calf pain and dysuria. Objective Data Objective Data Vital Signs: Vital Signs Temp Pulse Resp BP Pulse Ox O2 Del Method 96.7 F L 65 16 125/66 H 94 Room Air 01/07/23 07:30 01/07/23 07:30 01/07/23 07:30 01/07/23 07:30 01/07/23 07:30 01/07/23 07:30 Oxygen Delivery Method Room Air Weight: 165 lb 12.602 oz Body Mass Index (BMI) 27.6 Intake & Output: Intake and Output for Last 24 Hours 01/05/23 01/06/23 01/07/23 23:59 23:59 23:59 Intake Total 1420 / 1540 1520 / 1520 120 / 120 Output Total 2300 / 2600 1500 / 1500 825 / 825 Balance -880 / -1060 20 20 -705 / -705 Lab / Micro Data 01/07/23 05:29 01/07/23 05:29 Labs: Laboratory Results - last 24 hr 01/04/23 13:28: Total Protein (PEP) 6.9, Globulin 3.6, IgG 1255, IgA 188, IgM 259 H, Immunofixation Screen Comment H, Albumin (GERDA) 3.3, Albumin/Globulin (GERDA) 1.0, Wejbj-8-Ahpjosagz GERDA 0.3, Ehfeh-9-Wgmxcfrbj GERDA 1.1 H, Beta-Globulins (GERDA) 0.9, Gamma Globulins (GERDA) 1.2, GERDA M-Kwasi 0.4 H, GERDA Comments Comment 01/07/23 05:29: WBC 10.3, RBC 3.37 L, Hgb 11.4 L, Hct 33.7 L, MCV 100.0 H, MCH 33.8 H, MCHC 33.8, RDW Std Deviation 49.8 H, RDW Coeff of Donald 13.5, Plt Count 288, MPV 9.0, Sodium 138, Potassium 4.1, Chloride 105, Carbon Dioxide 29.0, Anion Gap 4 L, BUN 25 H, Creatinine 1.21, Estim Creat Clear Calc 38.83, Est GFR (MDRD) Af Amer 73, Est GFR (MDRD) Non-Af 61, BUN/Creatinine Ratio 20.7 H, Glucose 95, Hemoglobin A1c 5.5, Calcium 9.2, Phosphorus 2.9, Magnesium 2.4 Physical Exam Const alert and no apparent distress Constitutional Narrative: Sitting in the recliner and looks comfortable. HEENT moist oral mucous membranes HEENT Narrative: No thrush Resp normal respiratory effort, normal air movement and clear to auscultation bilaterally Resp Narrative: No conversational dyspnea. Effort and Inspection: Negative for tachypneic, respiratory distress, labored oruses accessory muscles GI normal to inspection, nondistended, normoactive bowel sounds, soft to palpation and non-tender GI Narrative: No guarding with palpation. Inspection: Negative for abdominal distention Extremity no calf tenderness General Extremity: Negative for clubbing or edema Skin General Skin Exam: no breakdown Rashes: no rashes Wounds: Negative for wounds noted Assessment & Plan Assessment/Plan (1) Debility: (2) Somatic dysfunction of rib: (3) Fall: QUALIFIERS: Encounter type: subsequent encounter Qualified Code(s): W19.XXXD - Unspecified fall, subsequent encounter (4) H/O normocytic normochromic anemia: (5) Hypertension: QUALIFIERS: Hypertension type: primary hypertension Qualified Code(s): I10 - Essential (primary) hypertension (6) Restless legs syndrome: (7) Neuropathic pain: (8) Chronic renal failure, stage 3a: PLAN: could this be related to MM? 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 Taylor has been refusing therapy and when he does participate it is usually not for the entire time he is supposed to be there. He is very set in his ways and wants to control what and when he does things. 2. Behavior/agitation at night/insomnia are better with the adjustment in the dose of Seroquel yesterday. He is not drowsy today and is not yelling. He is more cooperative than yesterday. Will continue with the current dose of Seroquel 3. EKG today due to c/o L chest pain to his family. 4. PA and LAT CXR. I reviewed the CXR done at admission and the R hemidiaphragm is significantly elevated due to large loop of colon behind the liver. 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 5. Will need to follow up with oncology post discharge from rehab. 6. Family would like him to go to SNF following rehab. He is not consistently getting 3 hours of therapy in daily. 7. I believe that he may be making himself cough.....it only happens when someone is in his room and it is not a typical cough........attention seeking? 8. check an ammonia level today and albumin and ionized calcium Charges/Coding Visit Charges Inpatient E&M: 41945 Subs Hosp L2 01/07/23 1126 <Electronically signed by Serenity Ozuna DO> Serenity Ozuna DO Cosigner Signature (if applicable): CC: ~ Signed ADDENDUM by Dr. Serenity Ozuna DO on 01/07/23 at 1225 Addendum EKG shows normal sinus rhythm with occasional PACs. QTc is within normal limits. There is no ST elevation and no significant ST depression. He has a first-degree AV block. PA and lateral chest x-ray shows no pulmonary vascular congestion, no pleural effusions and no infiltrates. There is a small area in the right hilum of atelectasis. Will change the cough suppressant to Tessalon Perles. 01/07/23 1225 <Electronically signed by Serenity martinez DO> Date _ Serenity Ozuna Signature (if applicable): Date cc: ~* Signed ADDENDUM by Dr. Serenity Ozuna DO on 01/08/23 at 1118 Addendum Ionized calcium and ammonia are within normal limits. 01/08/23 1118 <Electronically signed by Serenity martinez DO> Date _ Serenity Ozuna Signature (if applicable): Date cc: ~* Signed [facility] Work Phone: 1(751) 187-213508-03-2023 Progress note Author Serenity Ozuna [facility] January 07, 2023 10:19am Note Date/Time January 06, 2023 11: 34am [facility] Medical Records Department [address] [place] [address] Progress Note 01/06/23 1130 MR#: [id number] Acct: [id number] Name: ATIF COLÓN Rep #:[id number] : 1935 87 From: Serenity Ozuna DO PCP: Dr. Jaime Johnson MD Status :ADM IN Location: [place] [address] Subjective Subjective Afebrile VSS-heart rate has improved with decreasing the dose of Coreg and is currently in the mid 60s to upper 70s. Maintaining appropriate oxygen saturation on RA-98% on room air today Oral intake is good Oral fluid intake is good however the fluid balance yesterday was -880 and overnight it was -190. Furosemide was discontinued after the dose on Wednesday of this week. Discussed with nursing -night nursing states he was awake most of the night and he was loud talkative and complaining a lot. He forgets how to use the call light and just starts yelling help. He has been rude and yelling at the staff. He demanded a cough suppressant last night and then did not want to take it because he did not like the taste. Reviewed the PT/OT/ST notes Medication list reviewed. Atrovent nasal spray does not seem to be helping so will DC. I spoke with his dtr Shadi today and she is an RN. I told her that intracerebral bleed and hemorrhagic stroke had been ruled out. I told her I suspect he has dementia with behavioral concerns and that he was started on Seroquel. We also discussed starting Aricept and she was on board with that. Taylor is complaining of a cough. It is non-productive. I have listened for a cough since my office is right across the tyler and he rarely coughs unless someone enters the room. It is more like clearing his throat and then he startsmoaning when he takes a breath in. He is also c/o pain in both shoulders and onPE he has limited ROM when trying to lift his arms over his head. He denies SOBand denies lightheadedness. He is not sleeping well at night per the night nurses. Objective Data Objective Data Vital Signs: Vital Signs Temp Pulse Resp BP Pulse Ox O2 Del Method 98.7 F 72 18 102/66 98 Room Air 01/06/23 07:12 01/06/23 07:12 01/06/23 07:12 01/06/23 07:12 01/06/23 07:12 01/06/23 07:12 Oxygen Delivery Method Room Air Weight: 168 lb 6.931 oz Body Mass Index (BMI) 28.0 Intake & Output: Intake and Output for Last 24 Hours 01/04/23 01/05/23 01/06/23 23:59 23:59 23:59 Intake Total 1620 / 1620 1420 / 1540 560 / 560 Output Total 1000 / 1450 2300 / 2600 750 / 750 Balance 620 / 170 -880 / -1060 -190 / -190 Lab / Micro Data 01/07/23 05:29 01/07/23 05:29 Physical Exam Const alert and no apparent distress Constitutional Narrative: clearing his throat, no sputum, not really a cough. He is sometimes cooperativewith therapy but, at other times not. He has a way to do everything and a time he wants to do things and he is not flexible. Resp normal respiratory effort, normal air movement and clear to auscultation bilaterally Resp Narrative: Pulse ox is 95-99% on RA. RR is 16-18 consistently. Effort and Inspection: Negative for tachypneic, labored or uses accessory muscles Auscultation: diminished lung sounds bilateral (Mildly diminished posterior in the bases. ) Cardio regular rate, regular rhythm, no murmurs and no gallops GI normal to inspection, nondistended, normoactive bowel sounds, soft to palpation and non-tender GI Narrative: No guarding with palpation. Having regular BM's. Inspection: Negative for abdominal distention Extremity no calf tenderness General Extremity: Negative for clubbing or edema Skin General Skin Exam: no breakdown Rashes: no rashes Neuro CN's II-XII intact bilaterally and no focal motor deficits Psych Psych Narrative: seems anxious at times. Assessment & Plan Assessment/Plan (1) Debility: (2) Hemorrhagic cerebrovascular accident (CVA): PLAN: ruled out (3) Somatic dysfunction of rib: (4) Fall: QUALIFIERS: Encounter type: subsequent encounter Qualified Code(s): W19.XXXD - Unspecified fall, subsequent encounter (5) Hyponatremia: (6) H/O normocytic normochromic anemia: (7) Acute kidney injury: (8) Acute dehydration: (9) Hypokalemia: (10) Hypertension: QUALIFIERS: Hypertension type: primary hypertension Qualified Code(s): I10 - Essential (primary) hypertension (11) BPH (benign prostatic hyperplasia): QUALIFIERS: Lower urinary tract symptom presence: symptoms present Lower urinary tract symptom detail: urinary retention Qualified Code(s): N40.1- Benign prostatic hyperplasia with lower urinary tract symptoms; R33.8 - Other retention of urine (12) GERD (gastroesophageal reflux disease): (13) Restless legs syndrome: (14) Neuropathic pain: (15) Chronic renal failure, stage 3a: (16) Hyperglycemia: (17) Dementia: QUALIFIERS: Dementia type: unspecified type PLAN: Plan 1. Continue therapy 2. Discontinue Atrovent nasal spray 3. Continue Robitussin-DM, although I suspect he is making himself cough. Lungs are CTA 4. Start Seroquel 12.5 mg every morning and increase the at bedtime dose to 37.5 mg. 5. Start Aricept 5 mg p.o. daily 6. Lab ordered for tomorrow 7. Recheck orthostatics in the a.m. 8. Continue to hold Lasix 9. Decrease the Tramadol to 25 mg Q 12H PRN pain 4-10 Charges/Coding Visit Charges Inpatient E&M: 69137 Subs Hosp L2 01/07/23 1019 <Electronically signed by Serenity Ozuna DO> Serenity Ozuna DO Cosigner Signature (if applicable): CC: ~ Signed [facility] Work Phone: 1(860) 533-288108-02-2023 Progress note [facility] January 06, 2023 11:29am Note Date/Time January 05, 2023 2:5 0pm [facility] Medical Records Department [address] [place] [address] Progress Note 01/05/23 1448 MR#: [id number] Acct: [id number] Name: ATIF COLÓN Rep #:[id number] : 1935 87 From: Serenity Ozuna DO PCP: Dr. Jaime Johnson MD Status :ADM IN Location: [place] [address]1 Subjective Subjective Afebrile VSS Maintaining appropriate oxygen saturation on RA Oral intake is good Fluid balance for yesterday was +620. Since midnight it is -870. Discussed with nursing - no problems that need addressed Reviewed the PT/OT/ST notes Medication list reviewed. The fractional excretion of urea was 44.3% which suggests intrinsic renal disease. Serum protein electrophoresis and immunoelectrophoresis are pending. Protein in the urine is elevated. Denies lightheadedness. Complains of shortness of breath with exertion and I have noticed that he does some pursed lip breathing. He was previously a smoker. He has some mild conversational dyspnea. He continues to complain of acough. He denies chest pain, palpitations, nausea/vomiting/abdominal pain, dysuria and calf pain. He has no pain in the left ribs when taking a deep breath today. Taylor tells me that he takes MiraLAX at home and almost every day he uses a suppository to have a bowel movement. He tells me he does not have a bowel movement unless he has a suppository. He has been doing this for many years. Objective Data Objective Data Vital Signs: Vital Signs Temp Pulse Resp BP Pulse Ox O2 Del Method 98.1 F 67 18 111/47 L 99 Room Air 01/05/23 09:33 01/05/23 09:33 01/05/23 09:33 01/05/23 09:33 01/05/23 09:33 01/05/23 09:33 Oxygen Delivery Method Room Air Weight: 169 lb 12.095 oz Body Mass Index (BMI) 28.3 Intake & Output: Intake and Output for Last 24 Hours 01/03/23 01/04/23 01/05/23 23:59 23:59 23:59 Intake Total 1040 / 1040 1620 / 1620 580 / 580 Output Total 1200 / 1200 1000 / 1450 1450 / 1450 Balance -160 / -160 620 / 170 -870 / -870 Lab / Micro Data 01/01/23 09:20 01/04/23 13:28 Labs: Laboratory Results - last 24 hr 01/04/23 12:03: Ur Total Protein 24 Hr Cancelled, U PEP M-Kwasi 24 Hr Cancelled 01/04/23 16:00: Urine Creatinine 42.70 Physical Exam Const alert Constitutional Narrative: Sometimes cooperative and other times not. The therapists are at times having to cajole him into doing therapy. He has been pleasant with me but, rude/mean to some of the staff. General Appearance: well developed Resp normal respiratory effort, normal air movement and clear to auscultation bilaterally Resp Narrative: Mild conversational dyspnea and when he does take a deep breath after talking hehas pursed lips when exhaling. O2 sat on room air is 99%. Effort and Inspection: Negative for tachypneic Cardio regular rate, regular rhythm, no murmurs and no gallops GI normal to inspection, nondistended, normoactive bowel sounds, soft to palpation and non-tender GI Narrative: No guarding with palpation. Extremity no calf tenderness General Extremity: Negative for clubbing or edema Skin Skin Narrative: Some bruising on the UE's due to lab draws and IV's. General Skin Exam: no breakdown Rashes: no rashes Wounds: Negative for wounds noted Neuro CN's II-XII intact bilaterally and no focal motor deficits Neuro Narrative: He has generalized weakness. Psych Psych Narrative: Does not seem anxious or depressed when I am talking with him. He is rude to staff and yells. He gets confused and anxious in the evening. He makes good eye contact with me when we are talking. He is appropriate with me. He has definite ideas how everything should be done and does not seem to appreciate that there are other patients on the unit and we can not always accommodate him at the expense of the other patients. At home he generally sleeps until noon. Therapy sessions for him have been delayed until 9 in the morning for him. His stories seem to change. I never heard him cough while I was in my office and heis just across the ty[place].......when I went in to talk with him and asked about the cough......he told me that he coughed all night. Then he coughed, more likethroat clearing. He does not cough when eating and drinking. He did not c/o chest pain today. He is somewhat paranoid and thinks we are trying to deceive him. I suspect he confabulates. Assessment & Plan Assessment/Plan (1) Debility: (2) Hemorrhagic cerebrovascular accident (CVA): PLAN: This was ruled out at [facility]. They had MRI dating back to 2013 and the hyperdensity in the Left thalamus was present already. (3) Somatic dysfunction of rib: (4) Fall: QUALIFIERS: Encounter type: subsequent encounter Qualified Code(s): W19.XXXD - Unspecified fall, subsequent encounter PLAN: Etiology? Due to dehydration? Orthostatic hypotension? Low sodium? Orthostatics were negative but, he had already received IV fluids. (5) Hyponatremia: PLAN: Etiology? It may have been due to Lisinopril. This was stopped at admission to the hospital because he had acute on chronic renal failure and the sodium was up to 134 yesterday. The FEUrea is consistent with intrinsic renal disease. (6) H/O normocytic normochromic anemia: PLAN: WHY? Globulins are elevated and he has chronic N/N anemia. MM? (7) Acute kidney injury: PLAN: Resolved with hydration (8) Acute dehydration: PLAN: resolved (9) Hypokalemia: PLAN: resolved (10) Hypertension: QUALIFIERS: Hypertension type: primary hypertension Qualified Code(s): I10 - Essential (primary) hypertension PLAN: well controlled (11) BPH (benign prostatic hyperplasia): QUALIFIERS: Lower urinary tract symptom presence: symptoms present Lower urinary tract symptom detail: urinary retention Qualified Code(s): N40.1- Benign prostatic hyperplasia with lower urinary tract symptoms; R33.8 - Other retention of urine PLAN: He is was on 5 mg of Doxazosin but this was decreased to 2 mg. (12) GERD (gastroesophageal reflux disease): (13) Restless legs syndrome: PLAN: Nighttime dose of Gabapentin decreased to 300 mg (14) Neuropathic pain: PLAN: He has not c/o pain in his legs and he denies numbness/paresthesias. (15) Chronic renal failure, stage 3a: (16) Hyperglycemia: PLAN: Plan 1. Continue therapy 2. Apply the arthritis pain cream to both shoulders as well as his left lower thoracic and lumbar areas. 3. He likely can not have a BM without a stimulant since he has been taking laxatives daily for years. Will add a suppository every other day. 4. BMP, CBC without differential, magnesium and phosphorus on . 5. Continue intake and outputs and daily weights. Continue to hold Lasix.......with his CRF he made need this to maintain fluid balance. FEUrea was not consistent with dehydration.......it is suggestive of intrinsic renal failure 6. Continue the Seroquel........he slept better last night and the night nursesdid not say he was agitated last night. 7. Since [facility] and the hyperdensity in the thalamus has been there for several years Victor Manuel more suspicious that he has dementia as the cause of his memory difficulties. TSH and B12 are normal. Imaging of the head was not consistent with normal pressure hydrocephalus. Will check a SARAH to complete the W/U for treatable causes of dementia. If negative will consider starting Aricept. Charges/Coding Visit Charges Inpatient E&M: 03401 Subs Hosp L2 01/06/23 1129 <Electronically signed by Serenity Ozuna DO> Serenity Ozuna DO Cosigner Signature (if applicable): CC: ~ Signed [facility] Work Phone: 1(622) 756-651907-31-2023 Progress note Author Serenity Ozuna [facility] January 04, 2023 3:18pm Note Date/Time January 04, 2023 11:3 8am [facility] Medical Records Department [address] [place] [address] Progress Note 01/04/23 1100 MR#: [id number] Acct: [id number] Name: ATIF COLÓN Rep #:[id number] : 1935 87 From: Serenity Ozuna DO PCP: Dr. Jaime Johnson MD Status :ADM IN Location: [place] [address] Subjective Subjective Taylor was seen on TEAM rounds today. His , dtr Sindy and her were present in the room and dtr Piedad participated by phone. Afebrile VSS - BP is dropping and the HR is in the 56-67 range the past few days. Maintaining appropriate oxygen saturation on RA Oral intake is good for food and not good for fluids. Post void residuals are high ans the Hydroxyzine contributes to this. Discussed with nursing - no problems that need addressed Reviewed the PT/OT/ST notes Medication list reviewed. He was taking Terazosin and Lisinopril for HTN at presentation to the ED. He was also taking 900 mg of Gabapentin at HS. At presentation to rehab he is taking amlodipine 2.5 mg daily, carvedilol 6.25 mg twice daily, Cardura 2 mg nightly and Lasix [address] Tao discontinued the Coreg. He took tramadol 50 mg 3 times yesterday. Gabapentin was decreased from 900 mg Q HS to 300 mg Q HS. He takes 50 mg of Hydroxyzine atHS for insomnia. I reviewed the history and physical done by Dr. Tao on 12/31/2022. 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 Family found him laying on the toilet seat asleep. He had no visible injuries. He had just been discharged from [facility] earlier that day after a 5 day admission for intracerebral hemorrhage. When EMS arrived he was hypotensive and bradycardic. Signs at presentation to the emergency department were pulse rate 124 and blood pressure 87/63. Significant lab included a sodiumof 131, potassium of 3.4 BUN of 29 and a creatinine of 1.91. Hemoglobin was 13.2. BP in the ED responded to IV fluids. He was admitted to the hospitalist service for LOKI due to dehydration, hypokalemia/hyponatremia. tilt was negative (but, he had already received at least a liter of fluid in the ED. He remained very weak despite hydration and replacement of potassium and he was transferred to the in acute rehab unit for 3 hours of therapy daily to restore function/independence at or near his baseline. He lives in a one story home with his and his son Atif. There are 2 steps into the home. B CAT score at admission was 25/50 indicating significant cognitive impairment, possible dementia. Prior to the intracerebral hemorrhage he was completely independent and managing his finances. Thalamic strokes are associated with contralateral sensory loss, aphasia, executive function and decline, decreased levels of consciousness and memory impairment. All lab done on admission to rehab was personally reviewed. He has a macrocyticanemia with a HGB of 12.1 and a MCV of 100. Reticulocyte count is mildly increased at 1.56. Sodium was low at 132 and potassium is 3.8. BUN was 28 witha creatinine of 1.4. Phosphorus is normal at 2.7 but the magnesium is 1.7. theEMS note from the pickup at home says he was in AF. LFTs are normal except for the alkaline phosphatase that was increased to 144. Today Taylor is c/o back and chest pain. It increases with a deep breath. 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 He admits to some Post nasal drip and rhinorrhea. No sneezing or itchy watery eyes. No hx of asthma. Denies SOB. He denies SOB, lightheadedness, dysuria, abd pain, nausea and calf pain. On a CTA of the neck in 2013 he had 50-69% stenosis of the internal carotid arteries. Family can not tell me why he is on Lasix and Coreg. The pt and the family say he has never had any heart problems and they do not recall being told he has AF. Objective Data Objective Data Vital Signs: Vital Signs Temp Pulse Resp BP Pulse Ox O2 Del Method 98.3 F 65 16 107/58 L 97 Room Air 01/04/23 08:27 01/04/23 08:27 01/04/23 08:27 01/04/23 08:27 01/04/23 08:27 01/04/23 08:27 Oxygen Delivery Method Room Air Weight: 169 lb 12.095 oz Body Mass Index (BMI) 28.3 Intake & Output: Intake and Output for Last 24 Hours 01/02/23 01/03/23 01/04/23 23:59 23:59 23:59 Intake Total 1440 / 1440 1040 / 1040 360 / 360 Output Total 500 / 500 1200 / 1200 Balance 940 / 940 -160 / -160 360 / 360 Lab / Micro Data 01/01/23 09:20 01/04/23 13:28 Physical Exam Const alert, oriented x3 and no apparent distress Constitutional Narrative: Sitting in the recliner at the bedside. He is appropriate and talkative. General Appearance: cooperative HEENT normocephalic HEENT Narrative: Tongue appears to be atrophic. It is moist. No evidence of thrush. Neck supple General: trachea midline Resp normal respiratory effort, normal air movement and clear to auscultation bilaterally Resp Narrative: has a cough which is more like he is clearing his throat. Effort and Inspection: Negative for tachypneic or labored Cardio regular rate, regular rhythm, S1 normal heart sound, S2 normal heart sound, no murmurs, no rub and no gallops Rate: Negative for tachycardic GI normal to inspection, nondistended, normoactive bowel sounds, soft to palpation and non-tender Extremity no calf tenderness General Extremity: Negative for edema Skin Skin Narrative: Many bruises from recent hospital stays. No abrasions. No skin breakdown. He has a faint rash on the low back and evidence that he has been scratching. He has Left side paravertebral spasm in the low thoracic and lumbar areas. He alsohas pain with palpation of the anterior left chest and This tracks around the rib to the left back. 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 He admits to having a hard time sleeping at night and he thinks this may be because he can not turn his brain off. Appearance: appropriate Assessment & Plan Assessment/Plan (1) Debility: (2) Hemorrhagic cerebrovascular accident (CVA): PLAN: Discovered on 12/24/2022. (3) Somatic dysfunction of rib: PLAN: Left 8th rib (4) Fall: QUALIFIERS: Encounter type: subsequent encounter Qualified Code(s): W19.XXXD - Unspecified fall, subsequent encounter PLAN: Two recent falls....one on the when he had the hemorrhagic stroke and1 on 12/28/22 that lead to the recent admission to [facility]. (5) Hyponatremia: (6) H/O normocytic normochromic anemia: PLAN: Why? (7) Acute kidney injury: PLAN: due to dehydration. (8) Acute dehydration: (9) Hypokalemia: PLAN: Resolved (10) Hypertension: QUALIFIERS: Hypertension type: primary hypertension Qualified Code(s): I10 - Essential (primary) hypertension (11) BPH (benign prostatic hyperplasia): QUALIFIERS: Lower urinary tract symptom presence: symptoms present Lower urinary tract symptom detail: urinary retention Qualified Code(s): N40.1- Benign prostatic hyperplasia with lower urinary tract symptoms; R33.8 - Other retention of urine (12) GERD (gastroesophageal reflux disease): (13) Restless legs syndrome: (14) Neuropathic pain: (15) Chronic renal failure, stage 3a: (16) Hyperglycemia: PLAN: Plan 1. continue therapy 2. Check a iron and calculate the % iron saturation. Check TSH, urine urea, urine creat, BMP. Why is he hyponatremic? 3. DC the hydroxyzine which is likely contributing to confusion, memory difficulties, drowsiness, etc. CREAT clearance on 01/01 is only 33 and this causes accumulation of Hydroxyzine. 4. B12 and folate were unremarkable. Ferritin is WNL but, it is an acute phasereactant so this does not help to diagnose iron deficiency. Glob is increased and the the albumin/globulin ratio is low at 0.8. Why does he have anemia of CD? Will check a protein electrophoresis. 5. Hold Lasix. 6. Decrease Coreg to 3.125 mg twice daily. Ask family why he is on Coreg and Lasix. 7. Get the records from the admission at [facility]. Charges/Coding Visit Charges Inpatient E&M: 49042 Subs Hosp L2 01/04/23 1518 <Electronically signed by Serenity Ozuna DO> Serenity Ozuna DO Cosigner Signature (if applicable): CC: ~ Signed [facility] Work Phone: 1(651) 621-217107-31-2023 Miscellaneous Notes* Telephone Encounter - Jessy Alas LPN - 01/04/2023 4:41 PM EDT Mailed out as requested * Telephone Encounter - Vickie Hooks RN - 01/04/2023 4:16 PM EDT Called and left a detailed voicemail notifying patient's of providers message. Hospital phone number was left in case she had any questions. Vickie Hoosk RN * Telephone Encounter - Jordan Johnson MD - 01/04/2023 3:41 PM EDT I can only give 1 order per patient, but they should be able to get 2 placards from [facility] for vehicles. * Telephone Encounter - Belia Nolan - 01/04/2023 2:07 PM EDT Patient's spouse is requesting x2 handicap placards for both of their vehicles. Please mail to patient's residence, address has been confirmed. [facility] Miscellaneous Notes* Telephone Encounter - Isidra De Paz Ma - 01/04/2023 11:17 AM EDT Spoke with pt , he was discharged from [facility] to [place] per and he fell. She had to call the squad and he was admitted to [facility] where he is still hospitalized in the rehab dept. Advised to schedule hospital follow up with PCP when he is discharged home. She voiced understanding. Isidra De Paz Ma * Telephone Encounter - Isidra De Paz Ma - 12/31/2022 10:27 AM EDT Images from the original note were not included. Message left for pt to call back. Needs hospital follow up as listed below. Jordan Johnson MD P [facility] Lesvia Ceron 40 minute hospital f/u in 1 week. documented in this encounterM[facility]07-28-[facility]23 History and physical note Author Anuj Tao [facility] January 01, 2023 2:02pm Note Date/Time January 01, 2023 1:54 pm [facility] Medical Records Department [address] [place] [address] Post Admission Physician Guerda 01/01/23 1352 MR#: [id number] Acct: [id number] Name: ATIF COLÓN Rep #:[id number] : 1935 87 From: Anuj Tao MD PCP: Dr. Jaime Johnson MD Status :ADM IN Location: [place] [address] Admission Information Primary Diagnosis:: Dehydration, ICH. Status Changes from Prescreening?: No changes Identified Actual Problem List:: Pain, ALteration in Cmfrt, Cognitve Impr/Memory Loss, Depression, Mobility Impaired, Self Care Deficit, Ineffective Communication, Know.Dfct/Disease Process and Alteration-Leisure Activ. Potential Problem List:: DVT, Bleeding, Infection, UTI, Aspiration, Falls, Skin Integrity and Depression Risk of Complications DVT: JEROME Nichols Bleeding: Monitor Lab Values and Nursing to Teach Precautions for anti- coagulation therapy. Infection: Clinical Staff to Monitor for S/S of infection: and S/S of infection include fever, redness, warmth, etc. Urinary Tract Infection: Monitor for frequency, burning, discomfort, or incontinence. and Nursing will obtain urine sample for urinalysis and C&S when ordered. Aspiration: Clinical staff will monitor for coughing, drooling, congestion., Speech will evaluate swallowing and dsyphasia. and Nursing will monitor patient swallowing during meals. Falls: Patient will be evaluated for Fall Precautions and Patient will be placedon Fall Precautions as indicated per protocol. Skin Breakdown: Nursing will assess skin daily using assessment tool. and Nursing will place on Skin Breakdown Precautions as indicated. Pain: Clinical staff will assess patient's pain level per protocol., Medicationswill be given, if needed, and the pain level reassessed. and Other methods: Massage, distraction, decrease stimulus, etc. used PRN. Plan of Care Patient requires physician specializing in physical medicine and rehab oversightto provide close medical supervision of rehab issues including: Pain Management,Sleep Problems, Bowel and Bladder, Medical and co-morbidity Management, DVT prophylaxis, Rehabilitation Leadership and Coordination of treatment team Patient needs Physical Therapy: For a minimum of 1 hour and At least 5 out of 7 days Patient needs Physical Therapy to improve:: Mobility, Strengthening, Transfers, Stretching, ROM, Endurance, Stairs, Gait and Balance Patient needs Occupational Therapy: For a minimum of 1 hour and At least 5 out of 7 days Patient needs Occupational Therapy to improve ADL's incl.: Eating, Grooming, Bathing, Dressing, Toileting, Toilet transfers, Higher functioning activities, Household tasks and Adaptive Equipment Patient requires speech therapy: For a minimum of 1 hour and At least 5 out of 7days Patient requires speech therapy for: Swallowing, Cognition, Language Skills and Compensatory Strategies Patient requires 24/7 Rehabilitation Nursing for: Pain Issues, Identifying and preventing risk factors, Monitoring and reporting current medical conditions, Assisting with ambulation, transfer, and all ADL's, Teaching patients about disease process and medications, Family teaching, Providing safe environment, Bowel and Bladder Issues, Skin integrity and Medication Management Patient needs High School Assistant Principal/ Case Management for: Discharge Planning, Arranging Home Equipment or Services and Family Interventions Patient needs Dietary and Nutrition Services for: Adequate Nutrition, Nutritional Supplements and Nutritional Education Goals Patient will remain: free from falls and or injury at time of discharge. Patient will perform bed mobility at: Standby Assist. Patient will complete transfers from bed to chair at: Standby Assist. Patient will ambulate: 100 feet and with standby assist Patient will complete upper body dressing at: - (Supervision.) Patient will complete lower body dressing at: - (Supervision.) Patient will complete toileting at: - (Supervision.) Patient will perform bathing at: - (Supervision.) Patient will complete grooming at: - (Supervision.) Patient will complete home management skills at: Standby Assist. Patient will achieve: with standby assist Patient will have pain level of: of 3 or less Patient's skin will: remain intact and free from infection. Patient will receive: adequate nutrition. Discharge Planning Pt Prognosis for Sig. Practical Improv. w/in Reasonable Time: Fair Estimated Length of stay (days): 21 Anticipated D/C Destination: Home with Home Health Was Preadmission Assessment Accurate?: Yes 01/01/23 1402 <Electronically signed by Anuj Tao MD> Cosigner Signature (if applicable): CC: ~ Signed [facility] Work Phone: 1(375) 558-587107-27-2023 History and physical note Author Anuj [facility] December 31, 2022 8:40pm Note Date/Time December 31, 2022 8:32 pm [facility] Medical Records Department [address] [place] [address] History & Physical Exam 12/31/222022 MR#: [id number] Acct: [id number] Name: ATIF COLÓN Rep #:[id number] : 1935 87 From: Anuj Tao MD PCP: Dr. Jaime Johnson MD Status :ADM IN Location: [id number] HPI - General General Date of Admission: 12/31/22 Date of Service: 12/31/22 Chief Complaint: Here for 3 hours daily rehabilitation. HPI Narrative 12/28/2022 ATIF COLÓN, is a 87 Male who presents to [facility] Emergency Department with syncope. Recent intracranial bleeding after fall, discharged from [facility] today. Went to bathroom, had dark stool, on iron. Lightheaded in bathroom, fell asleep, fell. Squad called, hypotensive, bradycardic. IV fluids given for hypotension. 12/28/2022 Admit to Hospital. Normal saline 125cc/hour for dehydration/syncope. Trend CBC, check stool for blood, add PPI for dark stool. SCD for DVT prophylaxis, avoid anticoagulants with possible GI bleed. 12/29/2022 Family denies syncope, laid on toilet seat from weakness, and was sleeping. Check orthostatic vital signs for dehydration. Replete potassium 3.0. Evaluate anemia. 12/30/2022 Weak, hard time standing, frustrated. Orthostatic vital signs negative. Sodium 135, BUN 29, Creatinine 1.28, K normal. Evaluation consistent with anemia of chronic disease. Stool negative for blood. 12/31/2022 Admit to for 3 hours daily rehabilitation, strengthening, prior to discharge home with . [facility] Medical History (Updated 12/31/22 @ 20:[address] Anuj Tao MD) A-fib BPH (benign prostatic hyperplasia) GERD (gastroesophageal reflux disease) Hypertension Restless legs syndrome Home Medications calcium carbonate 600 mg-vitamin D3 10 mcg (400 unit) tablet 1 ea PO DAILY suppliment 07/02/15 [History Last Taken 12/31/22] gabapentin 300 mg capsule 300 mg PO QHS restless legs 07/02/15 [History Last Taken Unknown] lisinopril 40 mg tablet 40 mg PO DAILY blood pressure 07/02/15 [History Last Taken 07/08/15 05:00] multivitamin 1 ea PO DAILY supplement 07/02/15 [History Last Taken Unknown] omeprazole 20 mg capsule,delayed release 20 mg PO BID gerd 07/02/15 [History Last Taken 12/31/22] finasteride 5 mg tablet 5 mg PO QDAY urinary retention 05/17/17 [History Last Taken Unknown] terazosin 2 mg capsule 5 mg PO QHS Antithypertensive 05/17/17 [History Last Taken Unknown] amlodipine 2.5 mg tablet 2.5 mg PO DAILY blood pressure 12/31/22 [History Last Taken Unknown] benzonatate 100 mg capsule 200 mg (2 x 100 mg) PO TID PRN PRN COUGH #0 caps 12/31/22 [Rx Last Taken 12/31/22 08:00] carvedilol 6.25 mg tablet 6.25 mg PO Q12H heart 12/31/22 [History Last Taken 12/31/22] dextromethorphan-guaifenesin 30 mg-600 mg tablet extended hr (Mucinex DM) 2 tab PO BID cough 7 days #0 tabs 12/31/22 [Rx Last Taken 12/31/22] ferrous sulfate 325 mg (65 mg iron) tablet (FeroSul) 325 mg PO DAILY suppliment 12/31/22 [History Last Taken 12/31/22] furosemide 40 mg tablet (Lasix) 40 mg PO DAILY diuretic 12/31/22 [History Last Taken Unknown] hydroxyzine pamoate 50 mg capsule (Vistaril) 50 mg PO QHS PRN sleep 12/31/22 [History Last Taken Unknown] meloxicam 15 mg tablet 15 mg PO DAILY PRN PRN pain 12/31/22 [History Last Taken Unknown] polyethylene glycol 3350 17 gram/dose oral powder (Miralax) 17 g PO DAILY laxative 12/31/22 [History Last Taken 12/31/22] tramadol 50 mg tablet 50 mg PO Q6H PRN PRN Pain Score 4-10 #0 tabs 12/31/22 [Rx Last Taken 12/31/22 06:30] Allergy/AdvReac Type Severity Reaction Status Date / Time Penicillins Allergy Rash Verified 12/28/22 22:09 Family History Mother Cirrhosis of liver Surgical History H/O hernia repair Hx of cholecystectomy S/P right rotator cuff repair Unspecified nasal polyp Social History household members: spouse current occupational status: retired Smoking Status: Former smoker how long ago did patient quit smokin years ago ROS Constitutional Constitutional: Denies chills, fever(s) or weight gain ENT HEENT: Denies headache(s), nasal congestion or nasal discharge Cardiovascular Cardiovascular: Denies chest pain or palpitations Respiratory/Chest Respiratory/Chest: Denies cough, excessive phlegm production or shortness of breath with exertion Gastrointestinal Gastrointestinal: Denies abdominal pain, nausea or vomiting Genitourinary Genitourinary: Denies dysuria Musculoskeletal Musculoskeletal: Denies joint pain or joint swelling Integumentary Integumentary: Denies rash or wounds Neurologic Neurologic: Denies focal weakness, numbness or tingling Psychiatric Psychiatric: Denies anxiety, auditory hallucinations, depression, homicidal ideation or suicidal ideation Vital Signs Vital Signs Vital Signs: 12/31/22 14:55 12/31/22 15:35 12/31/22 19:30 Temperature 98 F 97.7 F L Temperature Source Oral Temporal Pulse Rate 70 68 Respiratory Rate 16 16 Respiratory Effort Normal Non-Labored Respiratory Depth Normal Respiratory Pattern Normal Blood Pressure 119/66 114/64 Blood Pressure Mean 83 80 Blood Pressure Source Monitor Monitor Blood Pressure Position Sitting Sitting Blood Pressure Location Right Arm Left Arm Pulse Ox 98 98 Oxygen Delivery Method Room Air Room Air Room Air Weight Weight: 77.2 kg Body Mass Index (BMI) 28.3 Indicators for Scoring Admitted with or Primary Diagnosis of CVA/Stroke: No Hx of CVA/Stroke: No Modified Steve Score MRS Score at time of Evaluation: 3-Moderate disability Physical Exam Const alert General Appearance: cooperative HEENT normocephalic Eyes PERRL and EOMs intact bilaterally Neck supple, no JVD and no carotid bruits Resp normal respiratory effort, normal air movement and clear to auscultation bilaterally Cardio regular rate and regular rhythm GI normal to inspection, nondistended, normoactive bowel sounds, non-tender and non-distended Extremity normal capillary refill General Extremity: Negative for edema Skin no rashes or lesions noted General Skin Exam: no breakdown Psych affect normal Appearance: appropriate Assessment & Plan Assessment/Plan (1) Debility: (2) Dehydration: (3) Acute kidney injury: (4) Hypokalemia: (5) Dark stools: (6) Intracranial hemorrhage: (7) Hypertension: (8) BPH (benign prostatic hyperplasia): (9) GERD (gastroesophageal reflux disease): (10) Restless legs syndrome: (11) Neuropathic pain: PLAN: Plan 87 year old male with below past medical history hospitalized for weakness, dehydration, acute kidney injury, hypokalemia, admitted to for 3 hours daily rehabilitation, strengthening, prior to discharge home with . * Debility - PT/OT. * Cognition - ST. * Pain - Tylenol 650mg q6h prn pain (1-3), Tramadol 50mg q6h prn pain (4-10). * Bowel - Miralax 17gm daily, senna/colace 2 tablets bid, Dulcolax 10mg pr x 1 prn, MOM 30ml po x 1 prn. * DVT prophylaxis - Hold, anemia. * Hypertension - Coreg 6.25mg q12h, Amlodipine 2.5mg daily. * Cough - Tessalon perles 200mg tid prn, Robitussin DM 2 tablets bid. * Calcium deficiency - Calcium D daily. * BPH - Finasteride 5mg daily, Doxazosin 2mg qhs. * Iron deficiency anemia - Ferrous sulfate 325mg daily. * Edema - Furosemide 40mg daily. * Neuropathic pain - Gabapentin 300mg qhs. * Insomnia - Hydroxyzine 50mg qhs prn. * Nutrition - MVI 1 tablet daily. * GERD - Pantoprazole 20mg bid. 12/31/222039 <Electronically signed by Anuj Tao MD> Cosigner Signature (if applicable): CC: Dr. Jaime Johnson MD; Dr. Anuj Tao MD~ Signed [facility] Work Phone: 1(308) 271-829107-27-2023 History of Present illness Narrative* Jessy Alas LPN - 12/31/2022 11:53 AM EDT Patient discharged from [facility] 12/31/22. * Yoshi Ridley MA - 12/30/2022 2:36 PM EDT LM for patient's to contact office to inform. Yoshi Ridley MA * Rosenda Vitale LPN - 12/29/2022 12:21 PM EDT Message left for Sheela to call office back for providers message. Rosenda Vitale LPN * Jordan Johnson MD - 12/29/2022 11:47 AM EDT I do not have privileges at [facility] to see patients. Please let me know if they have any concerns. * Belia Cohen [facility] - 12/29/2022 6:55 AM EDT TRANSITION CARE MANAGEMENT (TCM) PHARMACY CONTACT Provider Action/FYI: Medication reconciliation services declined due to patient preference. TCM medication reconciliation incomplete at this time Dr. Johnson -- reports pt fell last night after discharge from [facility], reports her son was unable to get him up so they called 911. Notes paramedics had trouble getting a pulse so pt was admitted to [facility]. asking if PCP is able to see pt at [facility] or contact the team there to check onhim? Please call directly to review. Initial contact with patient post discharge, spoke to spouse, Polina,, and verified that any applicable caregiver is active in patient's medical care. Patient identified by name and . Summary: -Pt discharged from [facility] on 12/28/22. -Medication review done: Declined at this time per patient preference Patient Concerns: See blue box above. Deferred med rec as pt is currently admitted at an outside hospital. Routing toPCP per spouse's request. History of Present Illness: [...] for trauma work-up after mechanical fall from [facility].He was assessed by trauma who did not [...] the patient's daughter who is his healthcare consumer sales representative. Daughter agreeable to plan for patient [...] BY MOUTH DAILY AT BEDTIME. Preferred pharmacy: [facility] [address] [place] [id number] [place] [address] - [phone] [place] [id number] [facility] [place] [place] [address] [address] [facility] [phone] [address] [facility] [address] Estimated Creatinine Clearance: 43.8 mL/min (based on SCr of 1.17 mg/dL). Estimated Glomerular Filtration Rate (mL/min/1.73m ) Date Value 12/28/2022 61 eGFR- (no units) Date Value 06/12/2021 >60 Additional follow up: Next 5 Appointments Date and Time Provider Department Dept Phone 06/21/2023 1:20 PM [facility] [phone] Interventions Made: None Pharmacist Recommendations Made None Care Coordination: None at this time Time spent on patient: 15-30 minutes Belia Cohen RPh December 29, 2022 6:55 AM documented in this encounterM[facility] Hospital07-24-2023 NoteHNO ID: [id number] Author: Maddi France DO Service: Hospital Medicine [...] x Brain bleed ruled out Other, please specify[facility]07[facility]-2023 NoteHNO ID: [id number] Author: Jrodan Aparicio RPh Service: Pharmacy Author Type: Pharmacist [...] RPh December 28, 2022 3:32 PM Pager: [phone] 12/28/2022 3:32 PM Medication List START taking [...] These medications were sent to [facility] [address] [place] [id number] - [facility] - [phone] [place] [address] [id number] carvedilol 6.25 mg tablet promethazine 25 mg tabletNorthern [facility]07-24-2023 NoteHNO ID: [id number] Author: Maddi France DO Service: Hospital Medicine Author Type: Physician Type: Progress Notes Filed: 12/28/2022 1:34 PM Note Text: HOSPITAL MEDICINE PROGRESS NOTE SERVICE DATE: December 28, 2022 SERVICE TIME: 1:34 PM Hospital Medicine/Primary Attending: Maddi France DO NIGHT AND WEEKEND COVERAGE: After 7pm please page [phone] CHIEF COMPLAINT: Brain bleed (HCC) (POA: Yes) Intraparenchymal hemorrhage of brain (HCC) (POA: Status not on file) Delirium (POA: Yes) Assessment/Plan I reviewed: Most recent labs and imaging results. Most recent labs Most recent imaging Most recent EKG This is an 87-year-old male PMH BPH, CKD stage III, HTN, EDUAR who presents for trauma work-up after mechanical fall from [facility].He was assessed by trauma who did not [...] the patient's daughter who is his healthcare consumer sales representative. Daughter agreeable to plan for patient [...] today's visit: CBC: No results for input(s): WBC, RBC, HB, HCT, PLT, MCV, MCH, MPV, RDW in the las (more content not included)...[facility]07-23-2023 NoteHNO ID: [id number] Author: Maddi France DO Service: Hospital Medicine Author Type: Physician Type: Progress Notes Filed: 12/27/2022 1:27 PM Note Text: HOSPITAL MEDICINE PROGRESS NOTE SERVICE DATE: December 27, 2022 SERVICE TIME: 1:27 PM Hospital Medicine/Primary Attending: Maddi France DO NIGHT AND WEEKEND COVERAGE: After 7pm please page [phone] CHIEF COMPLAINT: Brain bleed (HCC) (POA: Yes) Intraparenchymal hemorrhage of brain (HCC) (POA: Status not on file) Delirium (POA: Yes) Assessment/Plan I reviewed: Most recent labs and imaging results. Most recent labs Most recent imaging Most recent EKG This is an 87-year-old male PMH BPH, CKD stage III, HTN, EDUAR who presents for trauma work-up after mechanical fall from [facility].He was assessed by trauma who did not [...] today's visit: CBC: No results for input(s): WBC, RBC, HB, HCT, PLT, MCV, MCH, MPV, RDW in the last 24 hours. Coags: No results for input(s): PT, INR, APTT in the last 24 hours. BMP: Recent Labs 12/27/22 0549 NA 135* K 3.4* CHLOR 98 CO2 24 BUN 20 CREAT 1.20 GLUC 103* CMP: Recent Labs 12/27/22 0549 NA 135* K 3.4* CHLOR 98 CO2 24 BUN 20 CREAT 1.20 GLUC 103* CA 9.4 ANION 13 Cardiac Enzymes: No results for input(s): CK, MB, CKMB, TROPT in the last 24 hours. Liver Function, Amylase, Lipase: No results for input(s): TPROT, ALB (more content not included)...[facility] [id number] NoteHNO ID: [id number] Author: Annabella Zepeda PA-C Service: Neurosurgery Author Type: Physician Resource Management Planner Type: Progress Notes Filed: 12/27/2022 11:11 AM [...] (Oral) Resp 18 Ht 165.1 cm (5' 5) Wt 79.6 kg (175 lb 7.8 oz) SpO2 95% BMI 29.20 kg/m? O2 Therapy: Room Air IANDO: Date 12/26/22699 - 12/27/22 0659 12/27/22699 - 12/28/22 0659 Shift 5942-0490 9710-0343 9830-2351 24 Hour Total 6767-9085 2512-4370 7615-3469 24 Hour Total INTAKE PO 250 250 [...] tab(s) (PROTONIX) 20 mg ORAL BID AC (06/1599) lidocaine 4 % 1 Patch (SALONPAS) 1 [...] December 27, 2022 TIME: 11:06 AM Pager: [phone]23 NoteHNO ID: [id number] Author: Annabella Zepeda PA-C Service: Neurosurgery Author Type: Physician Resource Management Planner Type: Plan of Care Filed: 12/27/2022 11:06 AM Note Text: Updated patient's daughter Sindy via phone.[facility]07-23-2023 Miscellaneous Notes* Telephone Encounter - Chinyere Schwartz LPN - 12/27/2022 8:49 AM EDT Jordan Johnson MD Please advise if you are agreeable to signing and following for [facility] services? Our Clinicians will be sending the Plan of Care to you for review and approval. They will reach out for any appropriate orders required to provide home care services for the patient. We are not able to initiate HHC services without a following provider. Home care clinicians may also obtain orders from [facility] Virtualist Providers Thank you and we would be happy to answer any questions. Chinyere Schwartz LPN 12/27/2022 8:49 AM [facility]23 NoteHNO ID: [id number] Author: Maddi France DO Service: Hospital Medicine Author Type: Physician Type: Progress Notes Filed: 12/26/2022 1:39 PM Note Text: HOSPITAL MEDICINE PROGRESS NOTE SERVICE DATE: December 26, 2022 SERVICE TIME: 1:32 PM Hospital Medicine/Primary Attending: Maddi France, NIGHT AND WEEKEND COVERAGE: After 7pm please page [phone] CHIEF COMPLAINT: Brain bleed (HCC) (POA: Yes) Intraparenchymal hemorrhage of brain (HCC) (POA: Status not on file) Delirium (POA: Yes) Assessment/Plan I reviewed: Most recent labs and imaging results. Most recent labs Most recent imaging Most recent EKG This is an 87-year-old male PMH BPH, CKD stage III, HTN, EDUAR who presents for trauma work-up after mechanical fall from [facility].He was assessed by trauma who did not [...] today's visit: CBC: No results for input(s): WBC, RBC, HB, HCT, PLT, MCV, MCH, MPV, RDW in the last 24 hours. Coags: No results for input(s): PT, INR, APTT in the last 24 hours. BMP: Recent Labs 12/26/22 0558 NA 128* CHLOR 97 CO2 18* BUN 16 CREAT 0.92 GLUC 115* CMP: Recent Labs 12/26/22 0558 NA 128* CHLOR 97 CO2 18* BUN 16 CREAT 0.92 GLUC 115* CA 8.9 ANION 13 Cardiac Enzymes: No results for input(s): CK, MB, CKMB, TROPT in the last 24 hours. Liver Function, Amylase, Lipase: No results for input(s): TPROT, ALB, ALT, AST, ALKPHOS, TBILI, AMYLASE, LIPASE, LACTATE in the last 24 hours. MG/PHOS: No results for input(s): MG, P in the (more content not included)...[facility]07-22-2023 NoteHNO ID: [id number] Author: Romain Gasca APRN.[facility] Service: Neurosurgery Author Type: Nurse Practitioner Type: [...] patient for the MRI results. Romain Gasca APRN.[employer] Neurosurgery Pager: [phone] Neurosurgery Pager: [phone] December 26, 2022 12:05 [facility]07-21-2023 NoteHNO ID: [id number] Author: Maddi France DO Service: Hospital Medicine Author Type: Physician Type: Progress Notes Filed: 12/25/2022 4:25 PM Note Text: HOSPITAL MEDICINE PROGRESS NOTE SERVICE DATE: December 25, 2022 SERVICE TIME: 4:24 PM Hospital Medicine/Primary Attending: Maddi France DO NIGHT AND WEEKEND COVERAGE: After 7pm please page [phone] CHIEF COMPLAINT: Brain bleed (HCC) (POA: Yes) Intraparenchymal hemorrhage of brain (HCC) (POA: Status not on file) Assessment/Plan I reviewed: Most recent labs and imaging results. Most recent labs Most recent imaging Most recent EKG This is an 87-year-old male PMH BPH, CKD stage III, HTN, EDUAR who presents for trauma work-up after mechanical fall from [facility].He was assessed by trauma who did not [...] MPV 9.3 Coags: No results for input(s): PT, INR, APTT in the last 24 hours. BMP: Recent Labs 12/25/22 0655 NA 133* K 3.9 CHLOR 99 CO2 20* BUN 18 CREAT 1.05 GLUC 86 CMP: Recent Labs 12/25/22 0655 NA 133* K 3.9 CHLOR 99 CO2 20* BUN 18 CREAT 1.05 GLUC 86 CA 9.7 ANION 14 Cardiac Enzymes: No results for input(s): CK, MB, CKMB, TROPT in the last 24 hours. Liver Function, Amylase, Lipase: No results for input(s): TPROT, ALB, ALT, AST, ALKPHOS, TBILI, AMYLASE, LIPASE, LACTATE in the last 24 hours. MG/PHOS: No results for input(s): MG, P in the last 24 hours. Renal Panel: Recent Labs 12/25/22 0655 CREAT 1.05 BUN 18 GLUC 86 CA 9.7 CHLOR 99 K 3.9 CO2 20* NA 133* Heme: No results for input(s): RETICP, ABSRETIC, LD, JOSE, FE, TIBC, TRANSFERSAT in the last 24 hours. Albumin/Creat [...] of care discussed wit (more content not included)...[facility]07-21-2023 NoteHNO ID: [id number] Author: Annabella Zepeda PA-C Service: Neurosurgery Author Type: Physician Resource Management Planner Type: Progress Notes Filed: 12/25/2022 3:46 PM [...] (Oral) Resp 19 Ht 165.1 cm (5' 5) Wt 79.6 kg (175 lb 7.8 oz) [...] December 25, 2022 TIME: 3:45 PM Pager: [phone]07-21-2023 NoteHNO ID: [id number] Author: Jaja Maloney, KATARZYNA Service: Care Management Author Type: Registered Nurse Type: Care Mgt Initial Assessment Filed: 12/25/2022 3:16 PM Note Text: CARE MANAGEMENT: ASSESSMENT AND DISCHARGE PLAN SERVICE DATE: December 25, 2022 SERVICE TIME: 3:13 PM PCP: Jordan Johnson MD Primary Contact: Extended Emergency Contact Information Primary Emergency Contact: Polina Colón Address: [address] [place] [address] Mobile Relation: Spouse Secondary Emergency Contact: Celeste Rome [facility] Mobile Relation: Daughter Admission Status: Observation Insurance Provider: [employer] MEDICARE PPO Discharge Planning requested by: Per Department Practice Potential Transition Plans Home Care Advance Directives Current Advance Directive: Health Care Power of Social Media Director In Chart: Yes Up To Date and Valid: Yes Current Living Arrangements and Support Lives with: Spouse/significant other Type of Residence: Private Residence (Apartment or Condo) Does the patient have to climb stairs at home?: No Support: Family members, Spouse/significant other, Children How do you manage to accomplish the following: Independent: Ambulation;Bathe/Shower;Dress;Meals/Meal Prep;Going to the bathroom;Medication Management;Transportation to appointments/community Current Services/Equipment Current Post-Acute Service(s): DME Current DME Type: Cane Discharge Planning Patient Goal(s): Better mobility, Increase strength, General wellness, Be able to go home Coats of Choice Explained: Coats of Choice Given: Yes Level of Care [...] 25, 2022 TIME: 3:13 PM CONTACT #: [phone] [facility] Medical Center07-20-2023 Note HNO ID: [id number] Author: Fanny Nolan PA-C Service: Neurology ICU Author Type: Physician Resource Management Planner Type: Plan of Care Filed: 12/24/2022 7:24 PM Note Text: Paged by resident regarding possible ICU admission. Per report and EMR chart review, patient is an 87 year old M with past medical history significant for CKD, GERD, HTN and abdominal pain s/p hernia repair and lap marya who presents as trauma ED to ED transfer from [place] s/p fall yesterday afternoon, sometime after lunch time. Per report, questionable LOC. Does not take [...] for observation on RNF. Fanny Nolan PA-C #[id number]07-20-2023 Discharge summary Author Jt Le [facility] December 24, 2022 3:52pm Note Date/Time December 24, 2022 1:55 pm [facility] Medical Records Department [address] [place] [address] Emergency Department Summary 12/24/22 MR#: [id number] Acct: [id number] Name: ATIF COLÓN Sr. Rep #:[id number] : 1935 87 From: Jt Becerril PCP: Dr. Jaime Johnson MD Status :REG ER Location: ED HPI <BEATRIS Almendarez - Last Filed: 12/24/22 15:24> History of Present Illness Chief Complaint: Fall Narrative Narrative: 87-year-old male states he felt nauseated yesterday and walked into the bathroomand was leaning down to the toilet bowl when he lost his balance and fell. He struck his head and chest against the commode. Denies LOC. No blood thinners. He states the nausea passed and he didn't actually vomit. Since then he has had pain in his midsternal and left rib cage. No difficulty breathing. No nausea or vomiting today. He denies any prodromal chest pain or shortness of breath. [facility] <BEATRIS Almendarez - Last Filed: 12/24/22 15:24> [facility] Medical History BPH (benign prostatic hyperplasia) GERD (gastroesophageal reflux disease) Hypertension Restless legs syndrome Home Medications calcium carbonate 600 mg-vitamin D3 10 mcg (400 unit) tablet 1 ea PO DAILY 07/02/15 [History Last Taken Unknown] gabapentin 300 mg capsule 900 mg PO QHS 07/02/15 [History Last Taken Unknown] lisinopril 40 mg tablet 40 mg PO DAILY 07/02/15 [History Last Taken 07/08/15 05:00] multivitamin 1 ea PO DAILY 07/02/15 [History Last Taken Unknown] omeprazole 20 mg capsule,delayed release 20 mg PO BID 07/02/15 [History Last Taken 07/08/15 05:00] finasteride 5 mg tablet 5 mg PO QDAY 05/17/17 [History Last Taken Unknown] hydroxyzine HCl 50 mg tablet 50 mg PO ONCE 05/17/17 [History Last Taken Unknown] naproxen 500 mg tablet 500 mg PO Q12H 05/17/17 [History Last Taken Unknown] terazosin 2 mg capsule 5 mg PO QHS 05/17/17 [History Last Taken Unknown] Allergy/AdvReac Type Severity Reaction Status Date / Time Penicillins Allergy Rash Verified 12/24/22 13:28 Family History Mother Cirrhosis of liver Surgical History H/O hernia repair Hx of cholecystectomy S/P right rotator cuff repair Unspecified nasal polyp Social History Smoking Status: Never smoker how long ago did patient quit smokin years ago ROS <BEATRIS Almendarez - Last Filed: 12/24/22 15:24> ROS ED ROS Narrative Constitutional: Negative for fever, chills, malaise. CVS: Negative for palpitations, chest pain, syncope. Respiratory: Negative for shortness of breath, cough. GI: Negative for abdominal pain, vomiting. Neuro: Negative for headache, motor/sensory dysfunction. Skin: Negative for wound. Musc: Negative for joint pain, swelling, trauma. EXAM <BEATRIS Almendarez - Last Filed: 12/24/22 15:24> Physical Exam Narrative Exam Narrative: CONST: Patient sitting in no acute distress. EYES: Normal inspection. PERRLA, EOMI. Head: Head normocephalic atraumatic, no raccoon eyes or garcia sign, no nasal septal hematoma, no CSF otorrhea or rhinorrhea. NECK: Normal inspection. No midline spinal tenderness, no step off or crepitus. RESP: No respiratory distress, CTAB. Bruising and tenderness over upper sternal area, also tender over left upper anterior ribs in the pectoralis region with no deformity or crepitus. CVS: Regular rate and rhythm, no murmur, no gallop. ABD: Soft and nontender, no guarding or rebound, nondistended, no hepatosplenomegaly. SKIN: Color normal, no rash, warm, dry, intact. EXTREMITIES: Normal appearance, no tenderness, 2+ radial and PT pulses. NEURO: Oriented x4. PSYCH: Normal affect. Const Vital Signs: 12/24/22 13:28 Temperature 98.0 F Temperature Source Temporal Pulse Rate 101 H Respiratory Rate 18 Blood Pressure 114/69 Blood Pressure Mean 84 Pulse Ox 97 Oxygen Delivery Method Room Air <Dr. Jt Ramsay DO - Last Filed: 12/24/22 15:52> Physical Exam Const Vital Signs: 12/24/22 13:28 Temperature 98.0 F Temperature Source Temporal Pulse Rate 101 H Respiratory Rate 18 Blood Pressure 114/69 Blood Pressure Mean 84 Pulse Ox 97 Oxygen Delivery Method Room Air [facility] <BEATRIS Almendarez - Last Filed: 12/24/22 15:24> [facility] Narrative Medical decision making narrative: History gathered from: Patient and his daughter Patient had a mechanical fall yesterday striking his head and chest on the toilet. No LOC and no blood thinners. He is awake and alert with stable vital signs. He has small amount of bruising on his forehead. Also a small bruise along his right jaw but he states this is from a recent tooth extraction. He has no facial bone tenderness or deformity. Able to fully open and close his jaw. No signs of basilar skull fracture. No spinal tenderness. He is tender over the anterior chest wall with bruising. Normal heart and lung sounds. Examotherwise negative. With head injury and significant rib tenderness I ordered CTs of the brain, C-spine, and chest. CT scan of the brain shows left thalamic parenchymal hemorrhage without mass effect or midline shift. Cervical spine andchest scans negative for traumatic injuries. Patient is neurologically intact but requires transfer to [facility] [place] for evaluation. Case was discussed and patient accepted by ED physician Dr. Izabela Bell. Differential: Closed head injury, skull fracture, intracranial bleed, chest wallcontusion versus rib fracture 35 minutes of critical care time and evaluation and treatment of patient, discussion and planning, discussion with consultants Radiography Diagnostic Testing: Clinical Impression(s) from Imaging Studies Brain CT 12/24/22 13:50 IMPRESSION: Acute parenchymal hemorrhage in the left thalamus without mass effect or midline shift. Age consistent senescent changes elsewhere. Normal ventricles and cisterns for patient''s age. N.B. : The above Results were Read Back by Chemo Monge MD to BEATRIS Almendarez, and understanding confirmed on 12/24/2022 14:46:03 (ET). Electronically Signed: Chemo Monge MD at 14:47 EDT , ADDENDUM: 12/24/22 1454 IMPRESSION: Acute parenchymal hemorrhage in the left thalamus without mass effect or midline shift. Age consistent senescent changes elsewhere. Normal ventricles and cisterns for patient''s age. N.B. : The above Results were Read Back by Chemo Monge MD to BEATRIS Almendarez, and understanding confirmed on 12/24/2022 14:46:03 (ET). Electronically Signed: Chemo Monge MD at 14:47 EDT , Cervical Spine CT 12/24/22 13:50 IMPRESSION: Multilevel degenerative changes, as described above. No acute abnormalities Electronically Signed: Chemo Monge MD at 14:50 EDT , Chest CT 12/24/22 13:50 IMPRESSION: Chronic interstitial changes, no superimposed acute pulmonary process, no CT evidence of acute traumatic abnormality Electronically Signed: Chemo Monge MD at 14:53 EDT , EKG Initial EKG: Attestation: I personally reviewed and interpreted this EKG as follows: Comments: ED attending interpretation is sinus rhythm with sinus arrhythmia with first-degree AV block, no ischemic changes, 74 bpm <Dr. Jt Ramsay, DO - Last Filed: 12/24/22 15:52> [facility] Narrative Medical decision making narrative: History gathered from: Patient and his daughter Patient had a mechanical fall yesterday striking his head and chest on the toilet. No LOC and no blood thinners. He is awake and alert with stable vital signs. He has small amount of bruising on his forehead. Also a small bruise along his right jaw but he states this is from a recent tooth extraction. He has no facial bone tenderness or deformity. Able to fully open and close his jaw. No signs of basilar skull fracture. No spinal tenderness. He is tender over the anterior chest wall with bruising. Normal heart and lung sounds. Examotherwise negative. With head injury and significant rib tenderness I ordered CTs of the brain, C-spine, and chest. CT scan of the brain shows left thalamic parenchymal hemorrhage without mass effect or midline shift. Cervical spine andchest scans negative for traumatic injuries. Patient is neurologically intact but requires transfer to [facility] for evaluation. Case was discussed and patient accepted by ED physician Dr. Izabela Bell. Differential: Closed head injury, skull fracture, intracranial bleed, chest wallcontusion versus rib fracture 35 minutes of critical care time and evaluation and treatment of patient, discussion and planning, discussion with consultants Attending note: Patient seen and evaluated with pairer substandard. I perform my own [id number] evaluation. I agree with the plan of work-up. Mechanical fall yesterday when bending over the commode. He bumped his chest and hit his head on the commode he did not lose any consciousness. He is not on any blood thinners. Denies any nausea or vomiting. States primary pain is in his chest region. Exam GCS 15 there is scattered contusions at the forehead and face, scalp contusion across the upper sternum with tenderness at the sternum. Full range of motion all 4 extremities. No back spine tenderness. EKG obtained sinus arrhythmia. Trauma scans head neck and chest obtained, reviewed and per radiology parenchymal bleed left thalamus region. No subdural or subarachnoid hemorrhage. Blood pressure stable. Patient updated on the findings, due to theintracranial hemorrhage, discussed transfer. Discussed with [facility] ED physician Dr. Bell who accepted the transfer. Laboratory studies were obtained. Radiography Diagnostic Testing: Clinical Impression(s) from Imaging Studies Brain CT 12/24/22 13:50 IMPRESSION: Acute parenchymal hemorrhage in the left thalamus without mass effect or midline shift. Age consistent senescent changes elsewhere. Normal ventricles and cisterns for patient''s age. N.B. : The above Results were Read Back by Chemo Monge MD to BEATRIS Almendarez, and understanding confirmed on 12/24/2022 14:46:03 (ET). Electronically Signed: Chemo Monge MD at 14:47 EDT , ADDENDUM: 12/24/22 1454 IMPRESSION: Acute parenchymal hemorrhage in the left thalamus without mass effect or midline shift. Age consistent senescent changes elsewhere. Normal ventricles and cisterns for patient''s age. N.B. : The above Results were Read Back by Chemo Monge MD to BEATRIS Almendarez, and understanding confirmed on 12/24/2022 14:46:03 (ET). Electronically Signed: Chemo Monge MD at 14:47 EDT , Cervical Spine CT 12/24/22 13:50 IMPRESSION: Multilevel degenerative changes, as described above. No acute abnormalities Electronically Signed: Chemo Monge MD at 14:50 EDT , Chest CT 12/24/22 13:50 IMPRESSION: Chronic interstitial changes, no superimposed acute pulmonary process, no CT evidence of acute traumatic abnormality Electronically Signed: Chemo Monge MD at 14:53 EDT , <Dr. Jt Ramsay, DO - Last Filed: 12/24/22 15:52> Critical Care Time Critical Care Time: Yes Critical care time (excluding procedures): 30-74 minutes, Discussing w/Patient &/or Family/[employer], Discussing w/Consultants, Arranging Admission or Transfer, Performing Direct Patient Care at Bedside and - (35 minutes) Discharge Plan Triage Chief Complaint: Fall ED Midlevel Provider: Jaja Agrawal ED Provider: Jt Ramsay Dx/Rx/DC Orders Clinical Impression: Chest wall contusion, Intracranial hemorrhage, Fall Prescriptions: No Action hydroxyzine HCl 50 mg tablet 50 mg PO ONCE naproxen 500 mg tablet 500 mg PO Q12H finasteride 5 mg tablet 5 mg PO QDAY multivitamin 1 EACH tablet 1 ea PO DAILY gabapentin 300 MG capsule 900 mg PO QHS omeprazole 20 MG capsule 20 mg PO BID lisinopril 40 MG tablet 40 mg PO DAILY calcium carbonate-vitamin D3 1 EACH tablet 1 ea PO DAILY terazosin 2 MG capsule 5 mg PO QHS Primary Care Provider: Jaime Johnson Referrals: Jaime oJhnson MD [Primary Care Provider] - Disposition Disposition: DC/Tx to Another Type of HCF What to do if you have Problems For any increased pain, shortness of breath, bleeding, nausea or vomiting, chestpain, or any unexpected problems, contact your Primary Care Provider. Call [facility] ([phone]) or report to the closest Emergency Room. Call 911 if necessary. 12/24/22 1552 <Electronically signed by Jt Becerril> Cosigner Signature (if applicable): 12/24/22 1524 <Electronically signed by Jaja SPEAR> CC: Dr. Jaime Johnson MD ~ Signed [facility] Work Phone: 1(757) 972-860507-20-2023 History of Past illness Narrative* Problem Noted Date Diagnosed Date Resolved Date Intraparenchymal hemorrhage of brain 12/24/2022 12/28/2022 Brain bleed 12/24/2022 12/28/2022 Elevated prostate specific antigen (PSA) 11/19/2015 06/12/2021 Rotator cuff (capsule) sprain 03/16/2012 06/21/2012 Rotator cuff tear 09/30/2010 06/23/2011 Hypertension 06/09/2017 Elevated PSA 06/09/2017 documented as of this encounter (statuses as of 12/31/2022) [facility]07-20-2023 History of Past illness Narrative* Problem Noted Date Diagnosed Date Resolved Date Intraparenchymal hemorrhage of brain 12/24/2022 12/28/2022 Brain bleed 12/24/2022 12/28/2022 Elevated prostate specific antigen (PSA) 11/19/2015 06/12/2021 Rotator cuff (capsule) sprain 03/16/2012 06/21/2012 Rotator cuff tear 09/30/2010 06/23/2011 Hypertension 06/09/2017 Elevated PSA 06/09/2017 documented as of this encounter (statuses as of 01/04/2023) [facility]2023 History of Past illness Narrative* Problem Noted Date Diagnosed Date Resolved Date Intraparenchymal hemorrhage of brain 12/24/2022 12/28/2022 Brain bleed 12/24/2022 12/28/2022 Elevated prostate specific antigen (PSA) 11/19/2015 06/12/2021 Rotator cuff (capsule) sprain 03/16/2012 06/21/2012 Rotator cuff tear 09/30/2010 06/23/2011 Hypertension 06/09/2017 Elevated PSA 06/09/2017 documented as of this encounter (statuses as of 01/05/2023) [facility] History of Past illness Narrative* Problem Noted Date Diagnosed Date Resolved Date Intraparenchymal hemorrhage of brain 12/24/2022 12/28/2022 Brain bleed 12/24/2022 12/28/2022 Elevated prostate specific antigen (PSA) 11/19/2015 06/12/2021 Rotator cuff (capsule) sprain 03/16/2012 06/21/2012 Rotator cuff tear 09/30/2010 06/23/2011 Hypertension 06/09/2017 Elevated PSA 06/09/2017 documented as of this encounter (statuses as of 01/20/2023) [facility] History of Past illness Narrative* Problem Noted Date Diagnosed Date Resolved Date Intraparenchymal hemorrhage of brain 12/24/2022 12/28/2022 Brain bleed 12/24/2022 12/28/2022 Elevated prostate specific antigen (PSA) 11/19/2015 06/12/2021 Rotator cuff (capsule) sprain 03/16/2012 06/21/2012 Rotator cuff tear 09/30/2010 06/23/2011 Hypertension 06/09/2017 Elevated PSA 06/09/2017 documented as of this encounter (statuses as of 01/22/2023) [facility] History of Past illness Narrative* Problem Noted Date Diagnosed Date Resolved Date Intraparenchymal hemorrhage of brain 12/24/2022 12/28/2022 Brain bleed 12/24/2022 12/28/2022 Elevated prostate specific antigen (PSA) 11/19/2015 06/12/2021 Rotator cuff (capsule) sprain 03/16/2012 06/21/2012 Rotator cuff tear 09/30/2010 06/23/2011 Hypertension 06/09/2017 Elevated PSA 06/09/2017 documented as of this encounter (statuses as of 01/26/2023) [facility] History of Past illness Narrative* Problem Noted Date Diagnosed Date Resolved Date Intraparenchymal hemorrhage of brain 12/24/2022 12/28/2022 Brain bleed 12/24/2022 12/28/2022 Elevated prostate specific antigen (PSA) 11/19/2015 06/12/2021 Rotator cuff (capsule) sprain 03/16/2012 06/21/2012 Rotator cuff tear 09/30/2010 06/23/2011 Hypertension 06/09/2017 Elevated PSA 06/09/2017 documented as of this encounter (statuses as of 02/01/2023) [facility] of Past illness Narrative* Problem Noted Date Diagnosed Date Resolved Date Intraparenchymal hemorrhage of brain 12/24/2022 12/28/2022 Brain bleed 12/24/2022 12/28/2022 Elevated prostate specific antigen (PSA) 11/19/2015 06/12/2021 Rotator cuff (capsule) sprain 03/16/2012 06/21/2012 Rotator cuff tear 09/30/2010 06/23/2011 Hypertension 06/09/2017 Elevated PSA 06/09/2017 documented as of this encounter (statuses as of 02/04/2023) [facility] History of Past illness Narrative* Problem Noted Date Diagnosed Date Resolved Date Intraparenchymal hemorrhage of brain 12/24/2022 12/28/2022 Brain bleed 12/24/2022 12/28/2022 Elevated prostate specific antigen (PSA) 11/19/2015 06/12/2021 Rotator cuff (capsule) sprain 03/16/2012 06/21/2012 Rotator cuff tear 09/30/2010 06/23/2011 Hypertension 06/09/2017 Elevated PSA 06/09/2017 documented as of this encounter (statuses as of 02/05/2023) [facility] History of Past illness Narrative* Problem Noted Date Diagnosed Date Resolved Date Intraparenchymal hemorrhage of brain 12/24/2022 12/28/2022 Brain bleed 12/24/2022 12/28/2022 Elevated prostate specific antigen (PSA) 11/19/2015 06/12/2021 Rotator cuff (capsule) sprain 03/16/2012 06/21/2012 Rotator cuff tear 09/30/2010 06/23/2011 Hypertension 06/09/2017 Elevated PSA 06/09/2017 documented as of this encounter (statuses as of 02/10/2023) [facility] History of Past illness Narrative* Problem Noted Date Diagnosed Date Resolved Date Intraparenchymal hemorrhage of brain 12/24/2022 12/28/2022 Brain bleed 12/24/2022 12/28/2022 Elevated prostate specific antigen (PSA) 11/19/2015 06/12/2021 Rotator cuff (capsule) sprain 03/16/2012 06/21/2012 Rotator cuff tear 09/30/2010 06/23/2011 Hypertension 06/09/2017 Elevated PSA 06/09/2017 documented as of this encounter (statuses as of 02/13/2023) [facility] History of Past illness Narrative* Problem Noted Date Diagnosed Date Resolved Date Intraparenchymal hemorrhage of brain 12/24/2022 12/28/2022 Brain bleed 12/24/2022 12/28/2022 Elevated prostate specific antigen (PSA) 11/19/2015 06/12/2021 Rotator cuff (capsule) sprain 03/16/2012 06/21/2012 Rotator cuff tear 09/30/2010 06/23/2011 Hypertension 06/09/2017 Elevated PSA 06/09/2017 documented as of this encounter (statuses as of 03/05/2023) [facility] of Past illness Narrative* Problem Noted Date Diagnosed Date Resolved Date Intraparenchymal hemorrhage of brain 12/24/2022 12/28/2022 Brain bleed 12/24/2022 12/28/2022 Elevated prostate specific antigen (PSA) 11/19/2015 06/12/2021 Rotator cuff (capsule) sprain 03/16/2012 06/21/2012 Rotator cuff tear 09/30/2010 06/23/2011 Hypertension 06/09/2017 Elevated PSA 06/09/2017 documented as of this encounter (statuses as of 03/19/2023) [facility] History of Past illness Narrative* Problem Noted Date Diagnosed Date Resolved Date Intraparenchymal hemorrhage of brain 12/24/2022 12/28/2022 Brain bleed 12/24/2022 12/28/2022 Elevated prostate specific antigen (PSA) 11/19/2015 06/12/2021 Rotator cuff (capsule) sprain 03/16/2012 06/21/2012 Rotator cuff tear 09/30/2010 06/23/2011 Hypertension 06/09/2017 Elevated PSA 06/09/2017 documented as of this encounter (statuses as of 03/28/2023) [facility] History of Past illness Narrative* Problem Noted Date Diagnosed Date Resolved Date Intraparenchymal hemorrhage of brain 12/24/2022 12/28/2022 Brain bleed 12/24/2022 12/28/2022 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 04/04/2023 Elevated prostate specific antigen (PSA) 11/19/2015 06/12/2021 Rotator cuff (capsule) sprain 03/16/2012 06/21/2012 Rotator cuff tear 09/30/2010 06/23/2011 Hypertension 06/09/2017 Elevated PSA 06/09/2017 documented as of this encounter (statuses as of 04/04/2023) [facility] History of Past illness Narrative* Problem Noted Date Diagnosed Date Resolved Date Intraparenchymal hemorrhage of brain 12/24/2022 12/28/2022 Brain bleed 12/24/2022 12/28/2022 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 04/04/2023 Elevated prostate specific antigen (PSA) 11/19/2015 06/12/2021 Rotator cuff (capsule) sprain 03/16/2012 06/21/2012 Rotator cuff tear 09/30/2010 06/23/2011 Hypertension 06/09/2017 Elevated PSA 06/09/2017 documented as of this encounter (statuses as of 04/13/2023) [facility] History of Past illness Narrative* Problem Noted Date Diagnosed Date Resolved Date Intraparenchymal hemorrhage of brain 12/24/2022 12/28/2022 Brain bleed 12/24/2022 12/28/2022 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 04/04/2023 Elevated prostate specific antigen (PSA) 11/19/2015 06/12/2021 Rotator cuff (capsule) sprain 03/16/2012 06/21/2012 Rotator cuff tear 09/30/2010 06/23/2011 Hypertension 06/09/2017 Elevated PSA 06/09/2017 documented as of this encounter (statuses as of 04/19/2023) [facility] History of Past illness Narrative* Problem Noted Date Diagnosed Date Resolved Date Intraparenchymal hemorrhage of brain 12/24/2022 12/28/2022 Brain bleed 12/24/2022 12/28/2022 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 04/04/2023 Elevated prostate specific antigen (PSA) 11/19/2015 06/12/2021 Rotator cuff (capsule) sprain 03/16/2012 06/21/2012 Rotator cuff tear 09/30/2010 06/23/2011 Hypertension 06/09/2017 Elevated PSA 06/09/2017 documented as of this encounter (statuses as of 05/07/2023) [facility] History of Past illness Narrative* Problem Noted Date Diagnosed Date Resolved Date Intraparenchymal hemorrhage of brain 12/24/2022 12/28/2022 Brain bleed 12/24/2022 12/28/2022 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 04/04/2023 Elevated prostate specific antigen (PSA) 11/19/2015 06/12/2021 Rotator cuff (capsule) sprain 03/16/2012 06/21/2012 Rotator cuff tear 09/30/2010 06/23/2011 Hypertension 06/09/2017 Elevated PSA 06/09/2017 documented as of this encounter (statuses as of 05/20/2023) [facility] History of Past illness Narrative* Problem Noted Date Diagnosed Date Resolved Date Intraparenchymal hemorrhage of brain 12/24/2022 12/28/2022 Brain bleed 12/24/2022 12/28/2022 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 04/04/2023 Elevated prostate specific antigen (PSA) 11/19/2015 06/12/2021 Rotator cuff (capsule) sprain 03/16/2012 06/21/2012 Rotator cuff tear 09/30/2010 06/23/2011 Hypertension 06/09/2017 Elevated PSA 06/09/2017 documented as of this encounter (statuses as of 07/11/2023) [facility] History of Past illness Narrative* Problem Noted Date Diagnosed Date Resolved Date Intraparenchymal hemorrhage of brain 12/24/2022 12/28/2022 Brain bleed 12/24/2022 12/28/2022 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 04/04/2023 Elevated prostate specific antigen (PSA) 11/19/2015 06/12/2021 Rotator cuff (capsule) sprain 03/16/2012 06/21/2012 Rotator cuff tear 09/30/2010 06/23/2011 Hypertension 06/09/2017 Elevated PSA 06/09/2017 documented as of this encounter (statuses as of 07/23/2023) [facility] History of Past illness Narrative* Problem Noted Date Diagnosed Date Resolved Date Intraparenchymal hemorrhage of brain 12/24/2022 12/28/2022 Brain bleed 12/24/2022 12/28/2022 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 04/04/2023 Elevated prostate specific antigen (PSA) 11/19/2015 06/12/2021 Rotator cuff (capsule) sprain 03/16/2012 06/21/2012 Rotator cuff tear 09/30/2010 06/23/2011 Hypertension 06/09/2017 Elevated PSA 06/09/2017 documented as of this encounter (statuses as of 07/30/2023) [facility] History of Past illness Narrative* Problem Noted Date Diagnosed Date Resolved Date Intraparenchymal hemorrhage of brain 12/24/2022 12/28/2022 Brain bleed 12/24/2022 12/28/2022 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 04/04/2023 Elevated prostate specific antigen (PSA) 11/19/2015 06/12/2021 Rotator cuff (capsule) sprain 03/16/2012 06/21/2012 Rotator cuff tear 09/30/2010 06/23/2011 Hypertension 06/09/2017 Elevated PSA 06/09/2017 documented as of this encounter (statuses as of 08/30/2023) [facility] Miscellaneous Notes* Telephone Encounter - Vic Hoang MD - 12/24/2022 1:33 PM EDT Noted Vic Hoang MD * Telephone Encounter - Denisse Le RN - 12/24/2022 11:29 AM EDT Patient [...] 10/10 9. TETANUS: NA Protocols used: Chest Zidc-[id number], Chest Elcvgt-QAKXO-DO documented in this encounterM[facility]07[facility] History of Present illness Narrative* Caridad [...] express care. [facility]. documented in this encounterM[facility]07-14-[facility]23 Miscellaneous Notes* Telephone Encounter - Rosenda Vitale LPN - 12/18/2022 1:20 PM EDT Patient notified. Voices understanding. Will be in for recheck and to picking tech stool kit. Rosenda Vitale LPN * Telephone Encounter - Fabby Moore APRN.EZ - 12/18/2022 6:48 AM EDT Please call patient and let him know his sodium level is low- which is chronic. Kidney function a little lower than last check- needs to follow-up with airplane patroller- he told me he has appointment in [...] work is in acceptable ranges. Fabby Moore APRN.TRIMMING CUTTER MACHINE documented in this encounterMorrow [facility] Hospital06-21-2023 Miscellaneous Notes* Telephone Encounter - Lea [...] you. Lea Collins LPN documented in this encounterMorrow [facility] Hospital06-05-2023 Miscellaneous Notes* Telephone Encounter - MOLLY Bradley - 11/09/2022 1:41 PM EDT MC message sent to patient notifying of providers [...] Sig: Take one capsule at bedtime DOMENICA-10/01/22 Labs-08/06/22Apr-12/14/22 Please review and advise. Monica Gilmore LPN documented in this encounterMorrow County Hospital06-05-2023 Miscellaneous Notes* Addendum Note - Yoshi Ridley MA - 11/09/2022 1:34 PM EDTAddended by: YOSHI RIDLEY on: 11/09/2022 01:34 PM Modules accepted: Orders * Telephone Encounter - Yoshi Ridley MA - 11/09/2022 1:33 PM EDT Pharmacy updated to [facility]. Yoshi Ridley MA * Addendum Note [...] 1 tablet by mouth once daily. DOMENICA-10/01/22 Labs-08/06/22Apr-12/14/22 Please review and advise. Monica Gilmore LPN documented in this encounterMorrow [facility] Hospital06-05-2023 Miscellaneous Notes* Telephone Encounter - Yoshi [...] 12/14/22 Yoshi Ridley MA documented in this encounterMorrow [facility] Hospital04-27-2023 Instructions* Patient Instructions* Jordan Johnson MD [...] your usual activities immediately. documented in this encounterMorrow County Hospital04-27-2023 History of Present illness Narrative* Jordan Johnson MD - 10/01/2022 4:04 PM EDT Chief Complaint Patient presents with: Follow Up: Fell yesterday and was seen in [facility] for various cuts and scrapes. HPI Atif Colón is a 87 year old male who presents here today for Above Complaints.. Accompaniedtoday by his son Taylor Red Evaluated in [facility] yesterday with following HPI: Atif Colón is [...] Z13.820 Jordan Johnson MD documented in this encounterMorrow County Hospital04-26-2023 Instructions* Patient Instructions* Selene Hauser APRN.CNP [...] a follow up appointment. documented in this encounterMorrow County Hospital04-26-2023 History of Present illness Narrative* Selene Hauser INTEGRATED CIRCUIT DESIGN ENGINEER.[facility] - 09/30/2022 5:38 PM EDT Images from the original note were not included. Subjective Trauma Pertinent negatives include no chills, fever, myalgias or rash. HPI Atif Colón is a 87 year [...] have confirmed and edited as necessary, the [facility] Review of Systems Constitutional: Negative for [...] indetail warranting prompt ER evaluation. Selene Hauser APRN.EZ documented in this encounterMorrow County Hospital04-10-2023 Miscellaneous Notes* Telephone Encounter - Savannah Keys LPN - 09/14/2022 11:33 AM EDT Last OV: 07/14/22 - Next scheduled appt: 12/14/22 Patient has been identified by name and date of : Yes Requested Prescriptions Pending Prescriptions Disp Refills lisinopril (ZESTRIL) 40 mg tablet 90 tablet 1 Sig: Take 1 tablet by mouth once daily. RX INSTRUCTIONS: Patient aware RX will be sent to pharmacy. No need to notify patient. Savannah Keys LPN documented in this encounterMorrow County Hospital04-03-2023 Miscellaneous Notes* Telephone Encounter - Yoshi [...] 12/14/22 Yoshi Ridley MA documented in this encounterMorrow County Hospital03-02-2023 History of Present illness Narrative* Jacob Hernandez, KELLY.TRIMMING CUTTER MACHINE - 08/06/2022 5:14 PM EST Subjective HPI [...] Hernandez. Dia Saab LPN documented in this encounterMorrow County Hospital02-13-2023 Miscellaneous Notes* Telephone Encounter - Isidra De Paz Ma - 07/20/2022 2:15 PM EST Last office visit: 07/14/22 F/u scheduled: 12/14/22 Isidra De Paz Ma documented in this encounterMorrow County Hospital02-13-2023 Miscellaneous Notes* Telephone Encounter - Isidra De Paz Ma - 07/20/2022 2:10 PM EST Last office visit: 07/14/22 F/u scheduled: 12/14/22 Isidra De Paz Ma documented in this encounterMorrow County Hospital02-07-2023 Instructions* Patient Instructions* Fabby Moore APRN.CNP - 07/14/2022 1:44 PM EST If developing more areas or areas not healing in the next month notify office documented in this encounterBrandi Ville [address]-07-2023 History of Present illness Narrative* Fabby Teresa, INTEGRATED CIRCUIT DESIGN ENGINEER.TRIMMING CUTTER MACHINE - 07/14/2022 1:23 PM EST 07/14/2022 Patient [...] obtain records from Dr. Ponce's office Fabby Moore APRN.TRIMMING CUTTER MACHINE Prescription instructions reviewed with patient as applicable. [...] which included preparing to see the patient, [id number] patient care, completing clinical documentation, obtaining and/or reviewing separately obtained history, performing a medically appropriate examination, and counseling and educating the patient/family/caregiver. documented in this encounterMorrow County Hospital02-06-2023 Miscellaneous Notes* Telephone Encounter - Isidra De Paz Ma - 07/13/2022 11:15 AM EST Last office visit: 06/15/22 F/u scheduled: 12/14/22 Isidra De Paz Ma documented in this encounterMorrow County Hospital01-16-2023 Miscellaneous Notes* Telephone Encounter - Brennon Pearson Ma - 06/22/2022 3:32 PM EST DOMENICA: 06/15/2022 Last refill: 03/27/2021 QTY: 90 Refills: 3 documented in this encounterMorrow County Hospital01-10-2023 Miscellaneous Notes* Telephone Encounter - Jessy [...] he called to schedule with a [facility] [facility] and he cannot get an appt sooner than July. Pt asking Dr. Johnson if it is okay that he be seen sometime in July? Pt does not prefer togo outside of [facility]. Please advise patient. Thank you. documented in this encounterMorrow County Hospital01-09-2023 History of Present illness Narrative* Jordan Johnson MD - 06/15/2022 2:08 PM EST Chief Complaint Patient presents with: Follow Up: 6 month HPI Atif Colón is a 86 year old male who presents here today for Above Complaints. Patient planning on following up with Dr. Ling for left shoulder pain. Reviewed OV with Fabby Podlogar on 06/11. HTN: Mr. Colón indicates that [...] has not been to see nephrology at [facility] in more than a year. Renal function [...] Abs Lymph 1.00 - 4.00 k/uL 2.11 Cole% % 10.8 Abs Cole <0.87 k/uL 0.69 Eosin% % 6.3 Abs [...] Negative Negative Ketones, Urine Negative Negative Specific Marcus, Ur 1.005 - 1.030 1.012 Hemoglobin/Blood,Ur Negative [...] Stable. Jordan Johnson MD documented in this encounterMorrow County Hospital01-09-2023 Evaluation note* Diagnosis Essential hypertension- Primary [...] impairment, so stated documented in [facility] encounter [facility] Instructions* Patient Instructions* Fabby Moore APRN.CNP - 06/11/2022 2:26 PM EST Follow-up with orthopedics documented in this encounterMorrow County Hospital01-05-2023 History of Present illness Narrative* Fabby [...] ER with red flag symptoms Fabby Moore APRN.TRIMMING CUTTER MACHINE Prescription instructions reviewed with patient as applicable. [...] which included preparing to see the patient, [id number] patient care, completing clinical documentation, obtaining and/or reviewing separately obtained history, performing a medically appropriate examination, counseling and educating the pat ient/family/caregiver, and ordering medications, tests, or procedures. documented in this encounterMorrow County Hospital12-19-2022 Miscellaneous Notes* Telephone Encounter - Rosenda Vitale LPN - 05/25/2022 9:31 AM EST Patient phones requesting refills as follows: Requested Prescriptions Pending Prescriptions Disp Refills amLODIPine (NORVASC) 2.5 mg tablet 30 tablet 1 Sig: Take 1 tablet by mouth once daily. DOMENICA 05/06/2022 NOV 06/15/22 Please review and advise. Rosenda Vitale LPN documented in this encounterMorrow County Hospital12-15-2022 History of Present illness Narrative* Jose David Garcia PT - 05/21/2022 3:39 PM EST Episode Visit Count: 2 Therapist That Will Accept/Oversee The Plan Of Care: Jose David Garcia Start of Care Date: 05/14/22 Onset Date: 04/30/22 Plan of Care Certification Date: 05/14/22 Next Certification Due Date: 06/18/22 Patient Identified by Name and Date of : Yes REHABILITATION AND SPORTS THERAPY PHYSICAL THERAPY TREATMENT NOTE ASSESSMENT: tAif Colón tolerated the session with no issues. [...] Jose David Garcia PT documented in this encounterMorrow County Hospital12-08-2022 Miscellaneous Notes* Telephone Encounter - Denisse Le RN - 05/14/2022 12:21 PM EST Patient [...] 26 06/12/2021 31 Please advise. Thank you. Denisse Le RN documented in this encounterMorrow County Hospital12-07-2022 Miscellaneous Notes* Telephone Encounter - Jessy [...] bother him would recommend PT. Fabby Moore APRN.CNP * Telephone Encounter - Gilma Mansfield RN [...] Encounter - Fabby Moore APRN.CNP - 05/11/2022 4:33 PM EST BP readings great. He does not normally run a pulse that high. Does he feel like his heart is beating fast or skipping beats? Fabby Moore APRN.CNP * Telephone Encounter - Denisse Le RN - 05/11/2022 12:27 PM EST Patient [...] doesn't recall that being a concern previously. Denisse Le RN * Telephone Encounter - Rosenda Vitale LPN - 05/11/2022 8:48 AM EST Patient telephoned. Spoke to . States he is asleep at this time and she will have him call office back when he wakes. Rosenda Vitale LPN * Telephone Encounter - Fabby Moore APRN.CNP - 05/11/2022 7:39 AM EST Did he buy a new BP cuff? Was he symptomatic with lower BP- dizzy or lightheaded? Fabby Moore APRN.EZ * Telephone Encounter - iGlma Mansfield RN - 05/08/2022 4:29 PM EST Patient calls and states that he took his blood pressure yesterday all around the same time of 10 am. 112/66 64 114/63 62 104/70 59 97/65 62 Please review and advise, Gilma Mansfield RN documented in this encounterMorrow County Hospital11-30-2022 History of Present illness Narrative* Fabby Moore APRN.TRIMMING CUTTER MACHINE - 05/06/2022 2:44 PM EST 05/06/2022 Patient [...] ER with red flag symptoms Fabby Moore APRN.TRIMMING CUTTER MACHINE Prescription instructions reviewed with patient as applicable. [...] which included preparing to see the patient, [id number] patient care, completing clinical documentation, obtaining and/or reviewing separately obtained history, performing a medically appropriate examination, counseling and educating the pat ient/family/caregiver, and ordering medications, tests, or procedures. documented in this encounterMorrow County Hospital11-23-2022 Miscellaneous Notes* Telephone Encounter - Isidra De Paz Ma - 04/29/2022 8:37 AM EST Pt notified and voiced understanding. Isidra De Paz Ma * Telephone Encounter - Sera Longo RN - 04/27/2022 4:09 PM EST Left message for pt to call PCP office for results message-copied below. Sera Longo RN COPIED: Joradn Johnson MD 04/24/2022 11:43 AM EST Low sodium level which has been stable for years. Will continue to monitor. No changes to regimen. documented in this encounterMorrow County Hospital11-15-2022 Miscellaneous Notes* Telephone Encounter - Rosenda Rodriguez RN - 04/21/2022 6:59 PM EST [...] scheduled Sera Longo RN documented in this encounterMorrow County Hospital11-14-2022 Miscellaneous Notes* Telephone Encounter - Jessy Alas LPN - 04/20/2022 4:42 PM EST Phoned patient and spoke with his Sheela to ask what they would like us to do with RX for compression stockings. She stated she will have him go to medical records to pick it up. RX taken to medical records. * Telephone Encounter - Denisse Le RN - 04/20/2022 4:13 PM EST Patient called and provider message reviewed. Patient verbalizes understanding. Denisse Le RN * Telephone Encounter - Jordan Johnson [...] for evaluation instead. * Telephone Encounter - Rosenda Vitale LPN - 04/20/2022 1:38 PM EST TC to patient. States the lasix is causing him to urinate more. Patient declines elevating lower extremities, encouraged to try more of that. Agrees to trying. Denies SOB or difficulty while lying flat. Rosenda Vitale LPN * Telephone Encounter - Jordan Johnson MD - 04/20/2022 1:24 PM EST Is the lasix causing him to urinate at all on the 40 mg dosage?Any shortness of breath or difficulty breathing while lying flat? * Telephone Encounter - Denisse Le RN - 04/20/2022 12:05 PM EST Patient [...] and will plan to come for appt. Denisse Le RN * Telephone Encounter - Bertha Clemens Pss - 04/20/2022 11:00 AM EST Patient is requesting a phone call julian. He states he will be leaving soon and needs to speak to clinical. He states medication that he was given to alleviate feet swelling is not working. His feet are swolen and painful. documented in this encounterMorrow County [facility] Miscellaneous Notes* Telephone Encounter - Aaron Awan RN - 04/17/2022 2:17 PM EST Patient returned call and given provider's message below with verbalized understanding. * Telephone Encounter - Rosenda Vitale LPN - 04/17/2022 2:05 PM EST Patient telephoned. Message left to call back for update. Rosenda Vitale LPN * Telephone Encounter - Fabby [...] advise, Gilma Mansfield RN [facility] Miscellaneous Notes* Telephone Encounter - Vickie Hooks RN - 04/17/2022 11:22 AM EST Pt called and is notified of providers results and instructions. Pt voices understanding. Pt put through to scheduling to make ECHO appointment. Vickie Hooks RN * Telephone Encounter - Jordan Johnson MD - 04/17/2022 8:50 AM EST Patient's BNP is elevated which is a sign of heart failure. Recommend obtaining echo for his recentleg swelling. Continue lasix as prescribed. Sodium level remains low at 129, recommend cutting fluid intake back to 1.5 L daily. Urine studies normal. documented in this [facility]11-09-2022 Instructions* Patient Instructions* Jordan Johnson MD - 04/15/2022 2:53 PM EST Take lasix 40 mg daily starting today and through the weekend. Call the office Wednesday with an update on your leg swelling. documented [facility]11[facility] History of Present illness Narrative* Jordan Johnson MD - 04/15/2022 2:35 PM EST Chief Complaint Patient presents with: Leg Edema HPI Atif Colón is a 86 year [...] not taking: Reported on 02/03/2022) COMPOUNDED PRESCRIPTION Croatian dream cream topical for pain Histamine dihydrichloride [...] week. Jordan Johnson MD documented in [facility] encounterM[facility]11-08-2022 Miscellaneous Notes* Telephone Encounter - Fabby Moore APRN.CNP - 04/14/2022 7:57 AM EST PDMP website checked and validated. All prescriptions have been APPROPRIATELY filled. No suspiciousactivity was identified. 04/14/2022 by Fabby Moore APRN.CNP * Telephone Encounter - Rosenda Vitale LPN - 04/13/2022 5:23 PM EST Patient phones requesting refills as follows: Requested Prescriptions Pending Prescriptions Disp Refills gabapentin (NEURONTIN) 300 mg capsule 90 capsule 0 Sig: Take one capsule at bedtime DOMENICA 02/03/22 NOV 06/15/22 Please review and advise. Rosenda Vitale LPN documented in this encounterM[facility]09-22-[facility]22 Miscellaneous Notes* Telephone Encounter - Lindy Calderon APRN.EZ - 02/26/2022 8:54 AM EDT Script sent. [...] advise. Monica Gilmore LPN documented in this encounterM[facility]09-07-2022 Miscellaneous Notes* Telephone Encounter - Brennon [...] monitor. Fabby Moore APRN.CNP documented in this encounterM[facility]09-07-2022 Miscellaneous Notes* Telephone Encounter - Rosenda Vitale LPN - 02/11/2022 9:48 AM EDT Patient telephoned. answered and made aware. Voices understanding. Rosenda Vitale LPN * Telephone Encounter - Fabby [...] and was to see Dr. Ling at [facility] today and forgot about the appt and missed it. He states he has not made another appt with them. He states he remains in some pain and is asking for another refill of the [place] that was ordered for him recently-he has one pill left. This nurse encouraged pt to call [facility] and make another appt with them regarding clavicle fracture and he states he will try. Requesting Hom[place] refill, if provider agreeable, to [facility] in [place]. Please call pt with update. Thank you. documented in this encounterM[facility]08-30-2022 History of Present illness Narrative* Jordan Johnson MD - 02/03/2022 3:32 PM EDT Chief Complaint Patient presents with: Follow Up ER F/U: Right shoulder injury-due to fall HPI Atif Colón is a 86 year old male who presents here today for ER Follow Up.. Patient evaluated at [facility] ED yesterday 02/02 after fall with injury [...] updated. Referred to ortho on discharge. Refused Hom[place] for home. Since discharge, patient has been using 's sling instead of the sling and swath. States this sling has not been as stable. Has not scheduled appointment with ortho yet. Complaining of pain last night which he was treating with tylenol arthritis 2 tablets every 6 hours. Helps take the edge off, but would like rx for Hom[place] since it worked better for him. Has [...] by mouth daily at bedtime. COMPOUNDED PRESCRIPTION Croatian dream cream topical for pain Histamine dihydrichloride [...] and will call in 7 days of thompson for acute fracture. Discussed risks of narcotic [...] refusing. Jordan Johnson MD documented in this encounterM[facility]08-29-2022 Miscellaneous Notes* Telephone Encounter - Fabby Moore APRN.CNP - 02/02/2022 10:04 AM EDT Prescription sent for gabapentin 01/30/2022 Fabby Moore APRN.CNP * Telephone Encounter - Veronica Ramos LPN - 02/02/2022 9:06 AM EDT Domenica--12/12/21 nov-- 06/15/22 Last refill--01/30/22 90 with 0 refills Last labs--12/19/21 documented in this encounterM[facility] Hospital07-18-2022 Miscellaneous Notes* Telephone Encounter - Jocelin Roach - 12/22/2021 1:06 PM EDT Patient is out of his Lisinopril and his mail order pharmacy is not coming for a week or so. 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 Patient would like 2 weeks worth called into the local pharmacy. He is also asking for a bigger supply so he doesn't have to call the mail order pharmacy so much. * Telephone Encounter - Jocelin Walker Betito Roach - 12/22/2021 1:03 PM EDT Pharmacy verified in Epic Patient has been identified by name and [...] (177 lb 9.6 oz) Please advise. Jocelin Aaron Betito Roach documented in this encounterMorrow [facility] Hospital07-15-2022 Miscellaneous Notes* Telephone Encounter - Vickie Hooks RN - 12/19/2021 1:04 PM EDT Pt called and is notified of providers results and instructions. Pt voices understanding. Vickie Hooks RN * Telephone Encounter - Fabby Moore APRN.EZ - 12/19/2021 12:45 PM EDT Please call patient and let him know his stool is negative for blood. We will continue to monitor his CBC. Will recheck in 6 weeks, orders in place. Thanks, Fabby Podlogar, INTEGRATED CIRCUIT DESIGN ENGINEER.TRIMMING CUTTER MACHINE documented in this encounterMorrow [facility] Hospital07-13-2022 Miscellaneous Notes* Telephone Encounter - Paige [...] to look for posible cause of anemia. Fabby Granados APRN.CNP documented in this encounterMorrow [facility] Hospital07-08-2022 History of Present illness Narrative* Fabby [...] daily. Pt reported low dose COMPOUNDED PRESCRIPTION Croatian dream cream topical for pain Histamine dihydrichloride [...] Abs Lymph 1.00 - 4.00 k/uL 1.69 Cole% % 11.4 Abs Cole <0.87 k/uL 0.54 Eosin% % 4.9 Abs [...] - stable continue current medications Fabby Moore APRN.EZ Prescription instructions reviewed with patient as applicable. Patient advised if symptoms do not improve or if symptoms worsen sooner, to contact their primary care physician. Potential red flag symptoms discussed with the patient. Reviewed appropriate action plan to take if red flag symptoms occur. Patient agreeable to treatment plan. documented in this encounterM[facility] Hospital05-09-2022 Miscellaneous Notes* Telephone Encounter - Fabby [...] you. Tana Saab LPN documented in this encounterMorrow [facility] Hospital05-09-2022 Miscellaneous Notes* Telephone Encounter - Tana [...] you. Tana Saab LPN documented in this encounterM[facility] Hospital03-25-2022 Miscellaneous Notes* Telephone Encounter - Jessy Alas LPN - 08/29/2021 4:56 PM EDT Patient phones requesting refills as follows: Pending Prescriptions Disp Refills GABAPENTIN 300 MG CAPSULE 90 capsule 0 Sig: Take one capsule at bedtime LAURA: No DOMENICA 08/13/21 NOV 12/10/21 Please review and advise. Jessy Alas LPN documented in this encounterMorrow [facility] Hospital03-16-2021 History of Present illness Narrative* Sofia MercadoRt), Jen - 08/20/2020 2:50 PM EDT Radiology Service Progress Note PATIENT NAME: Atif oClón DATE OF SERVICE: August 20, 2020 TIME: [...] 20, 2020 3:16 PM documented in this encounterMorrow [facility] Hospital06-14-2016 History of Past illness Narrative* Problem Noted Date Resolved Date Elevated prostate specific antigen (PSA) 016 06/12/2021 Rotator cuff (capsule) sprain 03/16/2012 Rotator cuff tear 09/30/2010 06/23/2011 Hypertension 06/09/2017 Elevated PSA 06/09/2017 documented as of this encounter (statuses as of 08/30/2021) [facility] Narrative* Problem Noted Date Resolved Date Elevated prostate specific antigen (PSA) 016 06/12/2021 Rotator cuff (capsule) sprain 03/16/2012 Rotator cuff tear 09/30/2010 06/23/2011 Hypertension 06/09/2017 Elevated PSA 06/09/2017 documented as of this encounter (statuses as of 09/01/2021) [facility] Narrative* Problem Noted Date Resolved Date Elevated prostate specific antigen (PSA) 016 06/12/2021 Rotator cuff (capsule) sprain 03/16/2012 Rotator cuff tear 09/30/2010 06/23/2011 Hypertension 06/09/2017 Elevated PSA 06/09/2017 documented as of this encounter (statuses as of 10/13/2021) [facility]ative* Problem Noted Date Resolved Date Elevated prostate specific antigen (PSA) 016 06/12/2021 Rotator cuff (capsule) sprain 03/16/2012 Rotator cuff tear 09/30/2010 06/23/2011 Hypertension 06/09/2017 Elevated PSA 06/09/2017 documented as of this encounter (statuses as of 12/12/2021) [facility]arrative* Problem Noted Date Resolved Date Elevated prostate specific antigen (PSA) 016 06/12/2021 Rotator cuff (capsule) sprain 03/16/2012 Rotator cuff tear 09/30/2010 06/23/2011 Hypertension 06/09/2017 Elevated PSA 06/09/2017 documented as of this encounter (statuses as of 12/17/2021) [facility]* Problem Noted Date Resolved Date Elevated prostate specific antigen (PSA) 14/2 016 06/12/2021 Rotator cuff (capsule) sprain 03/16/2012 Rotator cuff tear 09/30/2010 06/23/2011 Hypertension 06/09/2017 Elevated PSA 06/09/2017 documented as of this encounter (statuses as of 12/19/2021) [facility]* Problem Noted Date Resolved Date Elevated prostate specific antigen (PSA) 016 06/12/2021 Rotator cuff (capsule) sprain 03/16/2012 Rotator cuff tear 09/30/2010 06/23/2011 Hypertension 06/09/2017 Elevated PSA 06/09/2017 documented as of this encounter (statuses as of 12/22/2021) [facility]* Problem Noted Date Resolved Date Elevated prostate specific antigen (PSA) 016 06/12/2021 Rotator cuff (capsule) sprain 03/16/2012 Rotator cuff tear 09/30/2010 06/23/2011 Hypertension 06/09/2017 Elevated PSA 06/09/2017 documented as of this encounter (statuses as of 12/25/2021) [facility]* Problem Noted Date Resolved Date Elevated prostate specific antigen (PSA) 016 06/12/2021 Rotator cuff (capsule) sprain 03/16/2012 Rotator cuff tear 09/30/2010 06/23/2011 Hypertension 06/09/2017 Elevated PSA 06/09/2017 documented as of this encounter (statuses as of 02/03/2022) [facility]* Problem Noted Date Resolved Date Elevated prostate specific antigen (PSA) 016 06/12/2021 Rotator cuff (capsule) sprain 03/16/2012 Rotator cuff tear 09/30/2010 06/23/2011 Hypertension 06/09/2017 Elevated PSA 06/09/2017 documented as of this encounter (statuses as of 02/03/2022) [facility]* Problem Noted Date Resolved Date Elevated prostate specific antigen (PSA) 016 06/12/2021 Rotator cuff (capsule) sprain 03/16/2012 Rotator cuff tear 09/30/2010 06/23/2011 Hypertension 06/09/2017 Elevated PSA 06/09/2017 documented as of this encounter (statuses as of 02/11/2022) [facility]* Problem Noted Date Resolved Date Elevated prostate specific antigen (PSA) 016 06/12/2021 Rotator cuff (capsule) sprain 03/16/2012 Rotator cuff tear 09/30/2010 06/23/2011 Hypertension 06/09/2017 Elevated PSA 06/09/2017 documented as of this encounter (statuses as of 02/11/2022) [facility]* Problem Noted Date Resolved Date Elevated prostate specific antigen (PSA) 016 06/12/2021 Rotator cuff (capsule) sprain 03/16/2012 Rotator cuff tear 09/30/2010 06/23/2011 Hypertension 06/09/2017 Elevated PSA 06/09/2017 documented as of this encounter (statuses as of 02/26/2022) [facility] Problem Noted Date Resolved Date Elevated prostate specific antigen (PSA) 016 06/12/2021 Rotator cuff (capsule) sprain 03/16/2012 Rotator cuff tear 09/30/2010 06/23/2011 Hypertension 06/09/2017 Elevated PSA 06/09/2017 documented as of this encounter (statuses as of 04/14/2022) [facility] Problem Noted Date Resolved Date Elevated prostate specific antigen (PSA) 016 06/12/2021 Rotator cuff (capsule) sprain 03/16/2012 Rotator cuff tear 09/30/2010 06/23/2011 Hypertension 06/09/2017 Elevated PSA 06/09/2017 documented as of this encounter (statuses as of 04/15/2022) [facility]* Problem Noted Date Resolved Date Elevated prostate specific antigen (PSA) 016 06/12/2021 Rotator cuff (capsule) sprain 03/16/2012 Rotator cuff tear 09/30/2010 06/23/2011 Hypertension 06/09/2017 Elevated PSA 06/09/2017 documented as of this encounter (statuses as of 04/17/2022) [facility]* Problem Noted Date Resolved Date Elevated prostate specific antigen (PSA) 016 06/12/2021 Rotator cuff (capsule) sprain 03/16/2012 Rotator cuff tear 09/30/2010 06/23/2011 Hypertension 06/09/2017 Elevated PSA 06/09/2017 documented as of this encounter (statuses as of 04/17/2022) [facility]* Problem Noted Date Resolved Date Elevated prostate specific antigen (PSA) 016 06/12/2021 Rotator cuff (capsule) sprain 03/16/2012 Rotator cuff tear 09/30/2010 06/23/2011 Hypertension 06/09/2017 Elevated PSA 06/09/2017 documented as of this encounter (statuses as of 04/21/2022) [facility]* Problem Noted Date Resolved Date Elevated prostate specific antigen (PSA) 016 06/12/2021 Rotator cuff (capsule) sprain 03/16/2012 Rotator cuff tear 09/30/2010 06/23/2011 Hypertension 06/09/2017 Elevated PSA 06/09/2017 documented as of this encounter (statuses as of 04/22/2022) [facility]* Problem Noted Date Resolved Date Elevated prostate specific antigen (PSA) 016 06/12/2021 Rotator cuff (capsule) sprain 03/16/2012 Rotator cuff tear 09/30/2010 06/23/2011 Hypertension 06/09/2017 Elevated PSA 06/09/2017 documented as of this encounter (statuses as of 04/29/2022) [facility] Problem Noted Date Resolved Date Elevated prostate specific antigen (PSA) 016 06/12/2021 Rotator cuff (capsule) sprain 03/16/2012 Rotator cuff tear 09/30/2010 06/23/2011 Hypertension 06/09/2017 Elevated PSA 06/09/2017 documented as of this encounter (statuses as of 05/06/2022) [facility] Problem Noted Date Resolved Date Elevated prostate specific antigen (PSA) 06/14/2 016 06/12/2021 Rotator cuff (capsule) sprain 03/16/2012 Rotator cuff tear 09/30/2010 06/23/2011 Hypertension 06/09/2017 Elevated PSA 06/09/2017 documented as of this encounter (statuses as of 05/13/2022) [facility]* Problem Noted Date Resolved Date Elevated prostate specific antigen (PSA) 142 016 06/12/2021 Rotator cuff (capsule) sprain 03/16/2012 Rotator cuff tear 09/30/2010 06/23/2011 Hypertension 06/09/2017 Elevated PSA 06/09/2017 documented as of this encounter (statuses as of 05/14/2022) [facility]* Problem Noted Date Resolved Date Elevated prostate specific antigen (PSA) 2 016 06/12/2021 Rotator cuff (capsule) sprain 03/16/2012 Rotator cuff tear 09/30/2010 06/23/2011 Hypertension 06/09/2017 Elevated PSA 06/09/2017 documented as of this encounter (statuses as of 05/21/2022) [facility] Problem Noted Date Resolved Date Elevated prostate specific antigen (PSA) 14/2 016 06/12/2021 Rotator cuff (capsule) sprain 03/16/2012 Rotator cuff tear 09/30/2010 06/23/2011 Hypertension 06/09/2017 Elevated PSA 06/09/2017 documented as of this encounter (statuses as of 05/25/2022) [facility] Problem Noted Date Resolved Date Elevated prostate specific antigen (PSA) 14/2 016 06/12/2021 Rotator cuff (capsule) sprain 03/16/2012 Rotator cuff tear 09/30/2010 06/23/2011 Hypertension 06/09/2017 Elevated PSA 06/09/2017 documented as of this encounter (statuses as of 06/12/2022) [facility] Problem Noted Date Resolved Date Elevated prostate specific antigen (PSA) 14/2 016 06/12/2021 Rotator cuff (capsule) sprain 03/16/2012 Rotator cuff tear 09/30/2010 06/23/2011 Hypertension 06/09/2017 Elevated PSA 06/09/2017 documented as of this encounter (statuses as of 06/16/2022) [facility] Problem Noted Date Resolved Date Elevated prostate specific antigen (PSA) 016 06/12/2021 Rotator cuff (capsule) sprain 03/16/2012 Rotator cuff tear 09/30/2010 06/23/2011 Hypertension 06/09/2017 Elevated PSA 06/09/2017 documented as of this encounter (statuses as of 06/16/2022) [facility] Problem Noted Date Resolved Date Elevated prostate specific antigen (PSA) 016 06/12/2021 Rotator cuff (capsule) sprain 03/16/2012 Rotator cuff tear 09/30/2010 06/23/2011 Hypertension 06/09/2017 Elevated PSA 06/09/2017 documented as of this encounter (statuses as of 06/22/2022) [facility] Problem Noted Date Resolved Date Elevated prostate specific antigen (PSA) 016 06/12/2021 Rotator cuff (capsule) sprain 03/16/2012 Rotator cuff tear 09/30/2010 06/23/2011 Hypertension 06/09/2017 Elevated PSA 06/09/2017 documented as of this encounter (statuses as of 07/13/2022) [facility] Problem Noted Date Resolved Date Elevated prostate specific antigen (PSA) 016 06/12/2021 Rotator cuff (capsule) sprain 03/16/2012 Rotator cuff tear 09/30/2010 06/23/2011 Hypertension 06/09/2017 Elevated PSA 06/09/2017 documented as of this encounter (statuses as of 07/15/2022) [facility] Problem Noted Date Resolved Date Elevated prostate specific antigen (PSA) 016 06/12/2021 Rotator cuff (capsule) sprain 03/16/2012 Rotator cuff tear 09/30/2010 06/23/2011 Hypertension 06/09/2017 Elevated PSA 06/09/2017 documented as of this encounter (statuses as of 07/20/2022) [facility] Problem Noted Date Resolved Date Elevated prostate specific antigen (PSA) 14/2 016 06/12/2021 Rotator cuff (capsule) sprain 03/16/2012 Rotator cuff tear 09/30/2010 06/23/2011 Hypertension 06/09/2017 Elevated PSA 06/09/2017 documented as of this encounter (statuses as of 08/07/2022) [facility] Problem Noted Date Resolved Date Elevated prostate specific antigen (PSA) 016 06/12/2021 Rotator cuff (capsule) sprain 03/16/2012 Rotator cuff tear 09/30/2010 06/23/2011 Hypertension 06/09/2017 Elevated PSA 06/09/2017 documented as of this encounter (statuses as of 09/07/2022) [facility] Problem Noted Date Resolved Date Elevated prostate specific antigen (PSA) 2 016 06/12/2021 Rotator cuff (capsule) sprain 03/16/2012 Rotator cuff tear 09/30/2010 06/23/2011 Hypertension 06/09/2017 Elevated PSA 06/09/2017 documented as of this encounter (statuses as of 09/14/2022) [facility] Problem Noted Date Resolved Date Elevated prostate specific antigen (PSA) 14/2 016 06/12/2021 Rotator cuff (capsule) sprain 03/16/2012 Rotator cuff tear 09/30/2010 06/23/2011 Hypertension 06/09/2017 Elevated PSA 06/09/2017 documented as of this encounter (statuses as of 10/01/2022) [facility] Problem Noted Date Resolved Date Elevated prostate specific antigen (PSA) 14/2 016 06/12/2021 Rotator cuff (capsule) sprain 03/16/2012 Rotator cuff tear 09/30/2010 06/23/2011 Hypertension 06/09/2017 Elevated PSA 06/09/2017 documented as of this encounter (statuses as of 10/08/2022) [facility] Problem Noted Date Resolved Date Elevated prostate specific antigen (PSA) 016 06/12/2021 Rotator cuff (capsule) sprain 03/16/2012 Rotator cuff tear 09/30/2010 06/23/2011 Hypertension 06/09/2017 Elevated PSA 06/09/2017 documented as of this encounter (statuses as of 11/09/2022) [facility] Problem Noted Date Resolved Date Elevated prostate specific antigen (PSA) 016 06/12/2021 Rotator cuff (capsule) sprain 03/16/2012 Rotator cuff tear 09/30/2010 06/23/2011 Hypertension 06/09/2017 Elevated PSA 06/09/2017 documented as of this encounter (statuses as of 11/09/2022) [facility] Problem Noted Date Resolved Date Elevated prostate specific antigen (PSA) 016 06/12/2021 Rotator cuff (capsule) sprain 03/16/2012 Rotator cuff tear 09/30/2010 06/23/2011 Hypertension 06/09/2017 Elevated PSA 06/09/2017 documented as of this encounter (statuses as of 11/09/2022) [facility] Problem Noted Date Resolved Date Elevated prostate specific antigen (PSA) 142 016 06/12/2021 Rotator cuff (capsule) sprain 03/16/2012 Rotator cuff tear 09/30/2010 06/23/2011 Hypertension 06/09/2017 Elevated PSA 06/09/2017 documented as of this encounter (statuses as of 11/09/2022) [facility] Problem Noted Date Resolved Date Elevated prostate specific antigen (PSA) 14/2 016 06/12/2021 Rotator cuff (capsule) sprain 03/16/2012 Rotator cuff tear 09/30/2010 06/23/2011 Hypertension 06/09/2017 Elevated PSA 06/09/2017 documented as of this encounter (statuses as of 11/25/2022) [facility] Problem Noted Date Diagnosed Date Resolved Date Elevated prostate specific antigen (PSA) 11/19/2015 06/12/2021 Rotator cuff (capsule) sprain 03/16/2012 06/21/2012 Rotator cuff tear 09/30/2010 06/23/2011 Hypertension 06/09/2017 Elevated PSA 06/09/2017 documented as of this encounter (statuses as of 12/18/2022) [facility] Problem Noted Date Diagnosed Date Resolved Date Elevated prostate specific antigen (PSA) 11/19/2015 06/12/2021 Rotator cuff (capsule) sprain 03/16/2012 06/21/2012 Rotator cuff tear 09/30/2010 06/23/2011 Hypertension 06/09/2017 Elevated PSA 06/09/2017 documented as of this encounter (statuses as of 12/24/2022) [facility] Problem Noted Date Diagnosed Date Resolved Date Elevated prostate specific antigen (PSA) 11/19/2015 06/12/2021 Rotator cuff (capsule) sprain 03/16/2012 06/21/2012 Rotator cuff tear 09/30/2010 06/23/2011 Hypertension 06/09/2017 Elevated PSA 06/09/2017 documented as of this encounter (statuses as of 12/24/2022) [facility] Problem Noted Date Diagnosed Date Resolved Date Elevated prostate specific antigen (PSA) 11/19/2015 06/12/2021 Rotator cuff (capsule) sprain 03/16/2012 06/21/2012 Rotator cuff tear 09/30/2010 06/23/2011 Hypertension 06/09/2017 Elevated PSA 06/09/2017 documented as of this encounter (statuses as of 12/27/2022) [facility] February 02, 2023 5:20pm Note Date/Time February 02, 2023 5: 03pm [facility] Medical Records Department [address] [place] [address] Instructions for Home/Discharge Instructions 02/02/23 1658 MR#: [id number] Acct: [id number] Name: ATIF COLÓN Rep #:[id number] : 1935 87 From: Vic Cummings DO PCP: Dr. Jaime Johnson MD Status :ADM IN Discharge Instructions Diet Discharge Diet: No restrictions Activity Discharge Activity: Return to Normal Activity Weight Bearing Status: Weight bearing as tolerated Follow Up Care Test Results: Test results from this visit will be discussed in further detail at your follow- up appointment, if applicable. Discharge Plan Admission Admit Date/Time: 01/29/23 22:22 Primary Reason for Your Visit: Gastric ulcer Attending Provider: Vic Cummings Primary Care Provider: Jaime Johnson Consulting Providers: Isidra Rodriguez; Aletha Malcolm Discharge Orders/Prescriptions Prescriptions: New pantoprazole 40 mg Tablet,Delayed Release (Dr/Ec) 40 mg PO BID Qty: 60 0RF donepezil 5 mg Tablet 5 mg PO QHS Qty: 0 0RF Continued finasteride 5 mg tablet 5 mg PO QDAY multivitamin 1 EACH tablet 1 ea PO DAILY acetaminophen 325 mg Tablet 650 mg PO Q6H PRN PRN (Reason: Pain Score 1-10) Qty: 1 0RF benzonatate 100 mg capsule 100 mg PO Q6H PRN (Reason: cough) bisacodyl 10 mg suppository 10 mg ND DAILY PRN (Reason: constipation) hydrocortisone acetate 25 mg Suppository 25 mg ND BID Rx Instructions: BID AND BID PRN melatonin 5 mg capsule 5 mg PO QHS carvedilol 3.125 mg Tablet 6.25 mg PO BIDCM Rx Instructions: Decreased due to bradycardia and low BP amlodipine 2.5 mg tablet 2.5 mg PO DAILY ferrous sulfate [FeroSul] 325 mg (65 mg iron) tablet 325 mg PO DAILY Discontinued furosemide 40 mg tablet 40 mg PO DAILY lisinopril 40 mg tablet 40 mg PO DAILY omeprazole 20 mg capsule,delayed release(DR/EC) 20 mg PO Q8H terazosin 5 mg capsule 5 mg PO QHS Referrals / Follow Up: Jaime Johnson MD [Primary Care Provider] - Within 2 Weeks FriendAden DO [Med Staff - Active Staff] - Within 1 Month (will need to schedule repeat endoscopy) Disposition Disposition (needs filled in before D/C Order can be placed): Assisted Living 02/02/23 1720<Electronically signed by Vic Cummings DO>Vic Cummings DO CC: Dr. Aletha Malcolm MD; Dr. Jaime Johnson MD; Dr. Isidra Rodriguez DO ~ Signed [facility] Work Phone: Evaluation note* Diagnosis RLS (restless legs syndrome) Restless legs syndrome (RLS) documented in this encounter [facility] note* Diagnosis RLS (restless legs syndrome) Restless legs syndrome (RLS) documented in this encounter [facility] note* Diagnosis Iron deficiency anemia, unspecified iron deficiency anemia type documented in this encounter [facility] note* Diagnosis RLS (restless legs syndrome) Restless legs syndrome (RLS) documented in this encounter [facility] note* Diagnosis Essential hypertension- Primary Unspecified essential hypertension Iron deficiency anemia, unspecified iron deficiency anemia type Stage 3a chronic kidney disease (HCC) Benign prostatic hyperplasia without lower urinary tract symptoms RLS (restless legs syndrome) Restless legs syndrome (RLS) documented in this encounter [facility] note* Diagnosis Elevated alkaline phosphatase level- Primary Other nonspecific abnormal serum enzyme levels documented in this encounter [facility] note* Diagnosis Anemia, unspecified type- Primary documented in this encounter [facility] note* Diagnosis Essential hypertension Unspecified essential hypertension documented in this encounter [facility] note* Diagnosis Elevated alkaline phosphatase level Other nonspecific abnormal serum enzyme levels documented in this encounter [facility] noteNo assessment information availableWSt. John of God [facility] Work Phone: Evaluation note* Diagnosis RLS (restless legs syndrome) Restless legs syndrome (RLS) documented in this encounter [facility] note* Diagnosis Closed displaced fracture of right clavicle, unspecified part of clavicle, initial encounter- Primary Acute pain of right shoulder Abrasion of right knee, initial encounter Fall in home, initial encounter documented in this encounter [facility] note* Diagnosis Closed displaced fracture of right clavicle, unspecified part of clavicle, initial encounter documented in this encounter [facility] note* Diagnosis Essential hypertension Unspecified essential hypertension documented in this encounter [facility] note* Diagnosis RLS (restless legs syndrome) Restless legs syndrome (RLS) [facility] Diagnosis Bilateral lower extremity edema- Primary Edema Essential hypertension Unspecified essential hypertension documented in this encounter [facility] note* Diagnosis Bilateral lower extremity edema- Primary Edema Elevated brain natriuretic peptide (BNP) level Other nonspecific findings on examination of blood documented in this encounter [facility] note* Diagnosis Bilateral lower extremity edema- Primary Edema documented in this encounter [facility] note* Diagnosis Essential hypertension- Primary Unspecified essential hypertension Acute pain of left shoulder documented in this encounter [facility] note* Diagnosis Acute pain of left shoulder- Primary documented in this encounter [facility] note* Diagnosis Essential hypertension Unspecified essential hypertension Bilateral lower extremity edema Edema documented in this encounter [facility] note* Diagnosis Acute pain of left shoulder- Primary documented in this encounter [facility] note* Diagnosis Essential hypertension Unspecified essential hypertension documented in this encounter [facility] note* Diagnosis Left shoulder pain, unspecified chronicity- Primary documented in this encounter [facility] note* Diagnosis Essential hypertension Unspecified essential hypertension documented in this encounter [facility] note* Diagnosis Ecchymosis- Primary Other specified circulatory system disorders documented in this encounter [facility] note* Diagnosis Essential hypertension Unspecified essential hypertension documented in this encounter [facility] note* Diagnosis RLS (restless legs syndrome) Restless legs syndrome (RLS) [facility]* Diagnosis Bilateral impacted cerumen- Primary Impacted cerumen documented in this encounter [facility] note* Diagnosis Essential hypertension Unspecified essential hypertension documented in this encounter [facility] note* Diagnosis Pain in right upper arm- Primary Fall, initial encounter Abrasion Abrasion or friction burn of other, multiple, and unspecified sites, without mention of infection [facility]* Diagnosis Fall in home, subsequent encounter- Primary Multiple skin tears Open wound(s) (multiple) of unspecified site(s), without mention of complication At high risk for falls Personal history of fall Age-related physical debility Senility without mention of psychosis Screening for osteoporosis Special screening for osteoporosis Encounter for screening for osteoporosis Special screening for osteoporosis Other nonthrombocytopenic purpura (HCC) documented in this encounter [facility] note* Diagnosis Bilateral lower extremity edema Edema documented in this encounter [facility] note* Diagnosis RLS (restless legs syndrome) Restless legs syndrome (RLS) documented in this encounter [facility] note* Diagnosis Encounter for screening fecal occult blood testing- Primary Special screening for malignant neoplasms, colon Hyperkalemia Hyperpotassemia documented in this encounter [facility] note* Diagnosis Sternal pain- Primary Chest pain, unspecified Left-sided chest pain documented in this encounter [facility] note* Diagnosis Age-related physical debility- Primary Senility without mention of psychosis [facility]* Diagnosis Onset Date Resolution Status Acute dehydration resolved Acute hypotension resolved Bradycardia resolved Syncope resolved BPH (benign prostatic hyperplasia) acute Bradycardia acute Cerumen in auditory canal on examination acute Chronic renal failure, stage 3a acute Cough acute Debility acute Dementia acute GERD (gastroesophageal reflux disease) acute H/O normocytic normochromic anemia acute Hyperglycemia acute Hypokalemia acute Irregular cardiac rhythm acu te Monoclonal gammopathy acute Neuropathic pain acute Restless legs syndrome acute Somatic dysfunction of rib a cute Fall chronic Hypertension chronic Acute dehydration resolved Acute kidney injury resolved Hyponatremia resolved [facility] Work Phone: Evaluation note* Diagnosis Onset Date Resolution Status Acute dehydration resolved Acute hypotension resolved Bradycardia resolved Syncope resolved Cerumen in auditory canal on examination acute Cough acute Debility acute Dementia acute GERD (gastroesophageal reflux disease) acute Hyperglycemia acute Irregular cardiac rhythm acu te Monoclonal gammopathy acute Somatic dysfunction of rib a cute Hypertension chronic Acute dehydration resolved Acute kidney injury resolved Bradycardia resolved Hypokalemia resolved Hyponatremia resolved Abdominal pain acute Abnormal CT of the abdomen a cute Acute kidney injury acute Anemia acute Dehydration acute [facility] Work Phone: Evaluation note* Diagnosis Nausea- Primary Nausea alone Bradycardia Other specified cardiac dysrhythmias Decreased appetite Anorexia documented in this encounter [facility] note* Diagnosis Sepsis, due to unspecified organism, unspecified whether acute organ dysfunction present (HCC)- Primary Acute cystitis without hematuria Acute cystitis Urinary frequency Bradycardia Other specified cardiac dysrhythmias Other specified hypotension AV block, 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 documented in this encounter [facility] note* Diagnosis Acute cystitis without hematuria- Primary [...] Other follow-up examination documented in this encounter [facility] note* Diagnosis 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)- Primary Grief reaction Adjustment disorder with depressed mood Senile dementia (HCC) Senile dementia, uncomplicated Stage 3a chronic kidney disease (HCC) Chronic insomnia Insomnia, unspecified Primary osteoarthritis, unspecified site documented in this encounter [facility] note* Diagnosis Acute left-sided low back pain without sciatica- Primary documented in this encounter [facility] note* Diagnosis Acute left-sided low back pain without sciatica- Primary At high risk for falls Personal history of fall 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) Grief reaction Adjustment disorder with depressed mood Senile dementia (HCC) Senile dementia, uncomplicated Stage 3a chronic kidney disease (HCC) documented in this encounter [facility] note* Diagnosis Essential hypertension- Primary Unspecified essential hypertension Senile dementia (HCC) Senile dementia, uncomplicated Depression, unspecified depression type Benign prostatic hyperplasia with nocturia Gastroesophageal reflux disease, unspecified whether esophagitis present documented in this encounter [facility] note* Diagnosis Nausea Nausea alone documented in this encounter [facility] note* Diagnosis Pain in right upper arm Fall, initial encounter documented in this encounter [facility] note* Diagnosis Fall, initial encounter documented in this encounter [facility] note* Diagnosis Essential hypertension- Primary Unspecified essential hypertension Benign prostatic hyperplasia with nocturia 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) Stage 3a chronic kidney disease (HCC) Senile dementia (HCC) Senile dementia, uncomplicated Gastroesophageal reflux disease, unspecified whether esophagitis present documented in this encounter [facility] note* Diagnosis Onset Date Resolution Status Acute hypotension resolved Bradycardia resolved UTI (urinary tract infection) resolved [facility] Work Phone: Evaluation note* Diagnosis Essential hypertension- Primary Unspecified essential hypertension Benign prostatic hyperplasia with nocturia Depression, unspecified depression type Stage 3a chronic kidney disease (HCC) [facility] Additional Instructions Take Tylenol as needed for pain. Keep arm in sling until cleared by orthopedics. [facility] Work Phone: Reason for referral (narrative)* Diagnostic Procedure Only (Routine) - Closed Specialty Diagnoses / Procedures Referred By Ryne t Referred To Contact US IMAGING Diagnoses Elevated alkaline phosphatase level Procedures US ABD RT UPPER QUADRANT US ABDOMINAL REAL TIME W/IMAGE LIMITED Jordan Johnson MD [address] [place] [address] Us Imaging Referral ID Status Reason Start Date Expiration Date V isits Requested Visits Authorized [id number] Closed Auto-Generate d Referral 12/18/2021 01/17/2023 1 1 [facility] for referral (narrative)* Outpatient Procedure (Urgent) - Pending Review Specialty Diagnoses / Procedures Referred By Contac t Referred To Contact [facility] Diagnoses Bilateral lower extremity edema Elevated brain natriuretic peptide (BNP) level Procedures ECHO ECHO TTHRC R-T 2D W/WOM-MODE COMPL SPEC&COLR D Jordan Johnson MD [address] [place] [address] [facility] [place] [address] [place] [address] Referral ID Status Reason Start Date Expiration Date Visits Requested Visits Authorized [id number] Pending Review Auto-Generat ed Referral 2 04/17/2023 1 1 [facility] for referral (narrative)* Diagnostic Procedure Only (Urgent) - Closed Specialty Diagnoses / Procedures Referred By Contac t Referred To Contact XR IMAGING Diagnoses Pain in right upper arm Fall, initial encounter Procedures XR HUMERUS 2V AP/LAT RIGHT RADEX HUMERUS MINIMUM 2 VIEWS Selene Hauser, KELLY.TRIMMING CUTTER MACHINE [address] [place] [address] [facility] Referral ID Status Reason Start Date Expiration Date V isits Requested Visits Authorized [id number] Closed Auto-Generate d Referral 09/30/2022 10/30/2023 1 1 [facility] for referral (narrative)* Outpatient Procedure (Routine) - Closed Specialty Diagnoses / Procedures Referred By Contac t Referred To Contact [facility] [place] Diagnoses Bradycardia Procedures ECG COMPLETE ECG ROUTINE ECG W/LEAST 12 LDS W/I&R Fabby Moore APRN.TRIMMING CUTTER MACHINE [address] [place] [address] [facility] [place] [address] [place] [address] Referral ID Status Reason Start Date Expiration Date V isits Requested Visits Authorized [id number] Closed Auto-Generate d Referral 01/29/2023 01/29/2024 1 1 * Diagnostic Procedure Only (Urgent) - Closed Specialty Diagnoses / Procedures Referred By Contac t Referred To Contact XR IMAGING Diagnoses Nausea Decreased appetite Procedures XR ABDOMEN 1V SUPINE RADIOLOGIC EXAM ABDOMEN 1 VIEW Fabby Moore APRN.TRIMMING CUTTER MACHINE [address] [place] [address] [place] [address] Referral ID Status Reason Start Date Expiration Date V isits Requested Visits Authorized [id number] Closed Auto-Generate d Referral 01/29/2023 02/28/2024 1 1 [facility] for referral (narrative)* Outpatient Procedure (Routine) - Pending Review Specialty Diagnoses / Procedures Referred By Contac t Referred To Contact HEART [facility] [place] Diagnoses Bradycardia Procedures ECG COMPLETE ECG ROUTINE ECG W/LEAST 12 LDS W/I&R Jordan Johnson MD [address] [place] [address] [facility] [place] [address] [place] [address] Referral ID Status Reason Start Date Expiration Date Visits Requested Visits Authorized [id number] Pending Review Auto-Generat ed Referral 02/04/2023 02/04/2024 1 1 [facility] for referral (narrative)* Diagnostic Procedure Only (Routine) - Pending Review Specialty Diagnoses / Procedures Referred By Contac t Referred To Contact XR IMAGING Diagnoses Acute left-sided low back pain without sciatica Procedures XR LUMBAR GENERAL 3V AP/LAT/L5-S1 RADEX SPINE LUMBOSACRAL 2/3 VIEWS PodFabby townsend APRN.TRIMMING CUTTER MACHINE [address] [place] [address] [place] [address] Referral ID Status Reason Start Date Expiration Date Visits Requested Visits Authorized [id number] Pending Review Auto-Generat ed Referral 06/17/[address] [facility] for referral (narrative)* Diagnostic Procedure Only (Urgent) - Closed Specialty Diagnoses / Procedures Referred By Contac t Referred To Contact XR IMAGING Diagnoses Nausea Decreased appetite Procedures XR ABDOMEN 1V SUPINE RADIOLOGIC EXAM ABDOMEN 1 VIEW Fabby Moore APRN.TRIMMING CUTTER MACHINE [address] [place] [address] [place] [address] Referral ID Status Reason Start Date Expiration Date V isits Requested Visits Authorized [id number] Closed Auto-Generate d Referral 01/29/2023 02/28/2024 1 1 [facility] for referral (narrative)* Diagnostic Procedure Only (Urgent) - Closed Specialty Diagnoses / Procedures Referred By Contac t Referred To Contact XR IMAGING Diagnoses Pain in right upper arm Fall, initial encounter Procedures XR HUMERUS 2V AP/LAT RIGHT RADEX HUMERUS MINIMUM 2 VIEWS Selene Hauser APRN.TRIMMING CUTTER MACHINE [address] [place] [address] [place] [address] Referral ID Status Reason Start Date Expiration Date V isits Requested Visits Authorized [id number] Closed Auto-Generate d Referral 09/30/2022 10/30/2023 1 1 Electronically signed by Selene Hauser INTEGRATED CIRCUIT DESIGN ENGINEER.TRIMMING CUTTER MACHINE at 09/30/2022 5:43 PM EDT [facility] for visit Narrative* Diagnostic Procedure Only (Routine) - Closed Specialty Diagnoses / Procedures Referred By Contac t Referred To Contact US IMAGING Diagnoses Elevated alkaline phosphatase level Procedures US ABD RT UPPER QUADRANT US ABDOMINAL REAL TIME W/IMAGE LIMITED Jordan Johnson MD [address] [place] [address] Us Imaging Referral ID Status Reason Start Date Expiration Date V isits Requested Visits Authorized [id number] Closed Auto-Generate d Referral 12/18/2021 01/17/2023 1 1 [facility] for visit Narrative* Diagnostic Procedure Only (Urgent) - Closed Specialty Diagnoses / Procedures Referred By Contac t Referred To Contact XR IMAGING Diagnoses Nausea Decreased appetite Procedures XR ABDOMEN 1V SUPINE RADIOLOGIC EXAM ABDOMEN 1 VIEW PodlogarFabby APRN.CNP [address] [place] [address] [place] [address] Referral ID Status Reason Start Date Expiration Date V isits Requested Visits Authorized [id number] Closed Auto-Generate d Referral 01/29/2023 02/28/2024 1 1 [facility] for visit Narrative* Diagnostic Procedure Only (Urgent) - Closed Specialty Diagnoses / Procedures Referred By Contac t Referred To Contact XR IMAGING Diagnoses Pain in right upper arm Fall, initial encounter Procedures XR HUMERUS 2V AP/LAT RIGHT RADEX HUMERUS MINIMUM 2 VIEWS Selene Hauser INTEGRATED CIRCUIT DESIGN ENGINEER.TRIMMING CUTTER MACHINE [address] [place] [address] [place] [address] Referral ID Status Reason Start Date Expiration Date V isits Requested Visits Authorized [id number] Closed Auto-Generate d Referral 09/30/2022 10/30/2023 1 1 [facility] Advance Directives Documents on File Type Date Recorded Patient Instrument Processing Tech Expl anation Advance Directive(s) 11/17/2010 2:36 PM Documents on File Type Date Recorded Patient Instrument Processing Tech Expl anation Advance Directive(s) 11/17/2010 2:36 PM Advance Directive Response Recorded Date/ Time Advance Directives Yes July 02, 2015 12:20pm Living Will Yes July 02 12:20pm Power of Social Media Director Yes July 02, 2015 12:20pm Advance Directive Response Recorded Date/ Time Name of Medical Power of Social Media Director CELESTE SANDERS - DAUGHTER February 02, 2022 3:44pm Advance Directives Yes July 02, 2015 12:20pm Living Will Yes February 02 3:44pm Power of Social Media Director Yes February 02, 2 022 3:44pm Advance Directive Response Recorded Date/ Time Advance Directives Yes July 02, 2015 11:20am Living Will Yes February 02 2:44pm Power of Social Media Director Yes February 02, 022 2:44pm Advance Directive Response Recorded Date/ Time Advance Directives Yes July 02, 2015 12:20pm Living Will Yes December 24, 2022 2:09pm Power of Social Media Director Yes December 24 2:09pm Name of Medical Power of Social Media Director Sindy December 24, 2022 2:09pm Advance Directive Response Recorded Date/ Time Name of Medical Power of Social Media Director Sindy Rome, wi fe January 01, 2023 12:20pm Advance Directives Yes July 02, 2015 12:20pm Living Will Yes January 01, 2023 12:20pm Power of Social Media Director Yes January 01 12:20pm Name of Medical Power of Social Media Director Sindy December 24, 2022 2:09pm Name of Medical Power of Social Media Director Celestejeremias Rome December 29, 2022 12:31am Advance Directive Response Recorded Date/ Time Name of Medical Power of Social Media Director Sindy Rome, January 01, 2023 12:20pm Name of Medical Power of Social Media Director SHADI COLÓN-MANDY, DAUGHTER January 29, 2023 8:12pm Advance Directives Yes July 02, 2015 12:20pm Living Will Yes January 29 8:12pm Power of Social Media Director Yes January 29, 023 8:12pm Name of Medical Power of Social Media Director Sindy December 24, 2022 2:09pm Name of Medical Power of Social Media Director Celeste David December 29, 2022 12:31am Advance Directive Response Recorded Date/ Time Name of Medical Power of Social Media Director Sindy David, January 01, 2023 12:20pm Name of Medical Power of Social Media Director SHADI YORK, DAUGHTER January 29, 2023 8:12pm Advance Directives Yes July 02, 2015 12:20pm Living Will No January 30 2:23am Power of Social Media Director No January 30, 2 023 2:23am Name of Medical Power of Social Media Director Sindy December 24, 2022 2:09pm Name of Medical Power of Social Media Director Celeste Rome December 29, 2022 12:31am Advance Directive Response Recorded Date/ Time Name of Medical Power of Social Media Director SHADI YORK, DAUGHTER January 29, 2023 7:12pm Name of Medical Power of Social Media Director CELESTE ROME- DAUGHTER; LYNN GALVAN- DAUGHTER February 04, 2023 9:26pm Name of Medical Power of Social Media Director Sindy May 21, 2023 2:15pm Advance Directives Yes July 02, 2015 11:20am Living Will Yes May 21, 2 023 2:15pm Power of Social Media Director Yes May 21, 2023 2:15pm Chief Complaint and Reason for Visit Chief Complaint FALL Chief Complaint SKIN Chief Complaint FALL syncope SYNCOPAL EPISODE SYNCOPAL EPISODE SYNCOPAL EPISODE SYNCOPAL EPISODE Debility with falls due to generalized weakness ICH ICH ICH ICH ICH Reason for Visit Acute dehydration Acute hypotension Bradycardia Syncope BPH (benign prostatic hyperplasia) Bradycardia Cerumen in auditory canal on examination Chronic renal failure, stage 3a Cough Debility Dementia GERD (gastroesophageal reflux disease) H/O normocytic normochromic anemia Hyperglycemia Hypokalemia Irregular cardiac rhythm Monoclonal gammopathy Neuropathic pain Restless legs syndrome Somatic dysfunction of rib Fall Hypertension Acute dehydration Acute kidney injury Hyponatremia Chief Complaint FALL syncope SYNCOPAL EPISODE SYNCOPAL EPISODE RHYTHM CHANGE SYNCOPAL EPISODE SYNCOPAL EPISODE Debility with falls due to generalized weakness CP ICH ICH ICH ICH Shortness of breath CP ICH LABWORK LOKI, PO INTAKE SBO Reason for Visit Acute dehydration Acute hypotension Bradycardia Syncope Cerumen in auditory canal on examination Cough Debility Dementia GERD (gastroesophageal reflux disease) Hyperglycemia Irregular cardiac rhythm Monoclonal gammopathy Somatic dysfunction of rib Hypertension Acute dehydration Acute kidney injury Bradycardia Hypokalemia Hyponatremia Abdominal pain Abnormal CT of the abdomen Acute kidney injury Anemia Dehydration Chief Complaint FALL syncope SYNCOPAL EPISODE SYNCOPAL EPISODE RHYTHM CHANGE SYNCOPAL EPISODE SYNCOPAL EPISODE Debility with falls due to generalized weakness CP ICH ICH ICH ICH Shortness of breath CP ICH LABWORK LOKI, PO INTAKE SBO LOKI, PO INTAKE LOKI, PO INTAKE LOKI, PO INTAKE LOKI, PO INTAKE LOKI, PO INTAKE LOKI, PO INTAKE Reason for Visit Acute dehydration Acute hypotension Bradycardia Syncope Cerumen in auditory canal on examination Cough Debility Dementia GERD (gastroesophageal reflux disease) Hyperglycemia Irregular cardiac rhythm Monoclonal gammopathy Somatic dysfunction of rib Hypertension Acute dehydration Acute kidney injury Bradycardia Hypokalemia Hyponatremia Abdominal pain Abnormal CT of the abdomen Acute kidney injury Anemia Dehydration Chief Complaint FALL syncope SYNCOPAL EPISODE SYNCOPAL EPISODE RHYTHM CHANGE SYNCOPAL EPISODE SYNCOPAL EPISODE Debility with falls due to generalized weakness CP ICH ICH ICH ICH Shortness of breath CP ICH LABWORK LOKI, PO INTAKE SBO LOKI, PO INTAKE LOKI, PO INTAKE LOKI, PO INTAKE LOKI, PO INTAKE LOKI, PO INTAKE LOKI, PO INTAKE LOKI, PO INTAKE Reason for Visit Acute dehydration Acute hypotension Bradycardia Syncope Cerumen in auditory canal on examination Cough Debility Dementia GERD (gastroesophageal reflux disease) Hyperglycemia Irregular cardiac rhythm Monoclonal gammopathy Somatic dysfunction of rib Hypertension Acute dehydration Acute kidney injury Bradycardia Hypokalemia Hyponatremia Abdominal pain Abnormal CT of the abdomen Acute kidney injury Anemia Dehydration Chief Complaint LOKI, PO INT VIOLA SBO LOKI, PO INTAKE LOKI, PO INTAKE LOKI, PO INTAKE LOKI, PO INTAKE LOKI, PO INTAKE LOKI, PO INTAKE LOKI, PO INTAKE LOKI, PO INTAKE WEAKNESS, UTI, BRADYCARDIA WEAKNESS, UTI, BRADYCARDIA WEAKNESS, UTI, BRADYCARDIA Amb Documentation HIP Reason for Visit Acute hypotension Bradycardia UTI (urinary tract infection) Reason for Referral Specialty Diagnoses / Procedures Referred By Ryne t Referred To Contact [facility] Diagnoses Acute pain of left shoulder Procedures CONSULT TO PHYSICAL THERAPY PHYSICAL THERAPY EVALUATION HIGH COMPLEX 45 MINS Jordan Johnson MD [address] [place] [address] [facility] [address] [place] [address] Referral ID Status Reason Start Date Expiration Date Visits Requested Visits Authorized [id number] Pending Review Auto-Generat ed Referral 05/12/2022 05/12/2023 1 1 Specialty Diagnoses / Procedures Referred By Contac t Referred To Contact Nephrology Diagnoses Stage 3a chronic kidney disease (HCC) Hyponatremia Procedures CONSULT TO NEPHROLOGY OFFICE/OUTPATIENT NEW HIGH MDM 60-74 MINUTES Jordan Johnson MD [address] [place] [address] Referral ID Status Reason Start Date Expiration Date Visits Requested Visits Authorized [id number] Authorized PCP Requested Referral 06/15/2022 06/15/2023 1 1 Specialty Diagnoses / Procedures Referred By Contac t Referred To Contact [facility] Diagnoses At high risk for falls Age-related physical debility Procedures CONSULT TO PHYSICAL THERAPY PHYSICAL THERAPY EVALUATION HIGH COMPLEX 45 MINS Jordan Johnson MD [address] [place] [address] [facility] [address] [place] [address] Referral ID Status Reason Start Date Expiration Date Visits Requested Visits Authorized [id number] Pending Review Auto-Generat ed Referral 10/01/2022 10/01/2023 1 1 Summary Purpose Family History No Family History Records Found Additional Source Comments Source Comments (unrecognize d section and content) In the event this informatio n is protected by the Federal Confidentiality of Alcohol and Drug Abuse Patient Records regulations: The Federal rules restrict any use of the information to criminally investigate or prosecute any alcohol or drug abuse patient.[facility] the event this information is protected by the Federal Confidentiality of Alcohol and Drug Abuse Patient Records regulations: The Federal rules restrict any use of the information to criminally investigate or prosecute any alcohol or drug abuse patient.[facility]In the event this information is protected by the Federal Confidentiality of Alcohol and Drug Abuse Patient Records regulations: The Federal rules restrict any use of the information to criminally investigate or prosecute any alcohol or drug abuse patient.[facility]In the event this information is protected by the Federal Confidentiality of Alcohol and Drug Abuse Patient Records regulations: The Federal rules restrict any use of the information to criminally investigate or prosecute any alcohol or drug abuse patient.[facility]In the event this information is protected by the Federal Confidentiality of Alcohol and Drug Abuse Patient Records regulations: The Federal rules restrict any use of the information to criminally investigate or prosecute any alcohol or drug abuse patient.[facility]In the event this information is protected by the Federal Confidentiality of Alcohol and Drug Abuse Patient Records regulations: The Federal rules restrict any use of the information to criminally investigate or prosecute any alcohol or drug abuse patient.[facility]In the event this information is protected by the Federal Confidentiality of Alcohol and Drug Abuse Patient Records regulations: The Federal rules restrict any use of the information to criminally investigate or prosecute any alcohol or drug abuse patient.[facility]In the event this information is protected by the Federal Confidentiality of Alcohol and Drug Abuse Patient Records regulations: The Federal rules restrict any use of the information to criminally investigate or prosecute any alcohol or drug abuse patient.[facility]In the event this information is protected by the Federal Confidentiality of Alcohol and Drug Abuse Patient Records regulations: The Federal rules restrict any use of the information to criminally investigate or prosecute any alcohol or drug abuse patient.[facility]In the event this information is protected by the Federal Confidentiality of Alcohol and Drug Abuse Patient Records regulations: The Federal rules restrict any use of the information to criminally investigate or prosecute any alcohol or drug abuse patient.[facility]In the event this information is protected by the Federal Confidentiality of Alcohol and Drug Abuse Patient Records regulations: The Federal rules restrict any use of the information to criminally investigate or prosecute any alcohol or drug abuse patient.[facility]In the event this information is protected by the Federal Confidentiality of Alcohol and Drug Abuse Patient Records regulations: The Federal rules restrict any use of the information to criminally investigate or prosecute any alcohol or drug abuse patient.[facility]In the event this information is protected by the Federal Confidentiality of Alcohol and Drug Abuse Patient Records regulations: The Federal rules restrict any use of the information to criminally investigate or prosecute any alcohol or drug abuse patient.[facility]In the event this information is protected by the Federal Confidentiality of Alcohol and Drug Abuse Patient Records regulations: The Federal rules restrict any use of the information to criminally investigate or prosecute any alcohol or drug abuse patient.[facility]In the event this information is protected by the Federal Confidentiality of Alcohol and Drug Abuse Patient Records regulations: The Federal rules restrict any use of the information to criminally investigate or prosecute any alcohol or drug abuse patient.[facility] HospitalIn the event this information is protected by the Federal Confidentiality of Alcohol and Drug Abuse Patient Records regulations: The Federal rules restrict any use of the information to criminally investigate or prosecute any alcohol or drug abuse patient.[facility] HospitalIn the event this information is protected by the Federal Confidentiality of Alcohol and Drug Abuse Patient Records regulations: The Federal rules restrict any use of the information to criminally investigate or prosecute any alcohol or drug abuse patient.[facility] HospitalIn the event this information is protected by the Federal Confidentiality of Alcohol and Drug Abuse Patient Records regulations: The Federal rules restrict any use of the information to criminally investigate or prosecute any alcohol or drug abuse patient.[facility] HospitalIn the event this information is protected by the Federal Confidentiality of Alcohol and Drug Abuse Patient Records regulations: The Federal rules restrict any use of the information to criminally investigate or prosecute any alcohol or drug abuse patient.[facility] HospitalIn the event this information is protected by the Federal Confidentiality of Alcohol and Drug Abuse Patient Records regulations: The Federal rules restrict any use of the information to criminally investigate or prosecute any alcohol or drug abuse patient.[facility] HospitalIn the event this information is protected by the Federal Confidentiality of Alcohol and Drug Abuse Patient Records regulations: The Federal rules restrict any use of the information to criminally investigate or prosecute any alcohol or drug abuse patient.[facility] HospitalIn the event this information is protected by the Federal Confidentiality of Alcohol and Drug Abuse Patient Records regulations: The Federal rules restrict any use of the information to criminally investigate or prosecute any alcohol or drug abuse patient.[facility] HospitalIn the event this information is protected by the Federal Confidentiality of Alcohol and Drug Abuse Patient Records regulations: The Federal rules restrict any use of the information to criminally investigate or prosecute any alcohol or drug abuse patient.[facility] HospitalIn the event this information is protected by the Federal Confidentiality of Alcohol and Drug Abuse Patient Records regulations: The Federal rules restrict any use of the information to criminally investigate or prosecute any alcohol or drug abuse patient.[facility] HospitalIn the event this information is protected by the Federal Confidentiality of Alcohol and Drug Abuse Patient Records regulations: The Federal rules restrict any use of the information to criminally investigate or prosecute any alcohol or drug abuse patient.[facility] HospitalIn the event this information is protected by the Federal Confidentiality of Alcohol and Drug Abuse Patient Records regulations: The Federal rules restrict any use of the information to criminally investigate or prosecute any alcohol or drug abuse patient.[facility] HospitalIn the event this information is protected by the Federal Confidentiality of Alcohol and Drug Abuse Patient Records regulations: The Federal rules restrict any use of the information to criminally investigate or prosecute any alcohol or drug abuse patient.[facility] HospitalIn the event this information is protected by the Federal Confidentiality of Alcohol and Drug Abuse Patient Records regulations: The Federal rules restrict any use of the information to criminally investigate or prosecute any alcohol or drug abuse patient.[facility] HospitalIn the event this information is protected by the Federal Confidentiality of Alcohol and Drug Abuse Patient Records regulations: The Federal rules restrict any use of the information to criminally investigate or prosecute any alcohol or drug abuse patient.[facility] HospitalIn the event this information is protected by the Federal Confidentiality of Alcohol and Drug Abuse Patient Records regulations: The Federal rules restrict any use of the information to criminally investigate or prosecute any alcohol or drug abuse patient.[facility] HospitalIn the event this information is protected by the Federal Confidentiality of Alcohol and Drug Abuse Patient Records regulations: The Federal rules restrict any use of the information to criminally investigate or prosecute any alcohol or drug abuse patient.[facility] HospitalIn the event this information is protected by the Federal Confidentiality of Alcohol and Drug Abuse Patient Records regulations: The Federal rules restrict any use of the information to criminally investigate or prosecute any alcohol or drug abuse patient.[facility] HospitalIn the event this information is protected by the Federal Confidentiality of Alcohol and Drug Abuse Patient Records regulations: The Federal rules restrict any use of the information to criminally investigate or prosecute any alcohol or drug abuse patient.[facility] HospitalIn the event this information is protected by the Federal Confidentiality of Alcohol and Drug Abuse Patient Records regulations: The Federal rules restrict any use of the information to criminally investigate or prosecute any alcohol or drug abuse patient.[facility] HospitalIn the event this information is protected by the Federal Confidentiality of Alcohol and Drug Abuse Patient Records regulations: The Federal rules restrict any use of the information to criminally investigate or prosecute any alcohol or drug abuse patient.[facility] HospitalIn the event this information is protected by the Federal Confidentiality of Alcohol and Drug Abuse Patient Records regulations: The Federal rules restrict any use of the information to criminally investigate or prosecute any alcohol or drug abuse patient.[facility] HospitalIn the event this information is protected by the Federal Confidentiality of Alcohol and Drug Abuse Patient Records regulations: The Federal rules restrict any use of the information to criminally investigate or prosecute any alcohol or drug abuse patient.[facility] HospitalIn the event this information is protected by the Federal Confidentiality of Alcohol and Drug Abuse Patient Records regulations: The Federal rules restrict any use of the information to criminally investigate or prosecute any alcohol or drug abuse patient.[facility] HospitalIn the event this information is protected by the Federal Confidentiality of Alcohol and Drug Abuse Patient Records regulations: The Federal rules restrict any use of the information to criminally investigate or prosecute any alcohol or drug abuse patient.[facility] HospitalIn the event this information is protected by the Federal Confidentiality of Alcohol and Drug Abuse Patient Records regulations: The Federal rules restrict any use of the information to criminally investigate or prosecute any alcohol or drug abuse patient.[facility] HospitalIn the event this information is protected by the Federal Confidentiality of Alcohol and Drug Abuse Patient Records regulations: The Federal rules restrict any use of the information to criminally investigate or prosecute any alcohol or drug abuse patient.[facility] the event this information is protected by the Federal Confidentiality of Alcohol and Drug Abuse Patient Records regulations: The Federal rules restrict any use of the information to criminally investigate or prosecute any alcohol or drug abuse patient.[facility] HospitalIn the event this information is protected by the Federal Confidentiality of Alcohol and Drug Abuse Patient Records regulations: The Federal rules restrict any use of the information to criminally investigate or prosecute any alcohol or drug abuse patient.[facility] HospitalIn the event this information is protected by the Federal Confidentiality of Alcohol and Drug Abuse Patient Records regulations: The Federal rules restrict any use of the information to criminally investigate or prosecute any alcohol or drug abuse patient.[facility]In the event this information is protected by the Federal Confidentiality of Alcohol and Drug Abuse Patient Records regulations: The Federal rules restrict any use of the information to criminally investigate or prosecute any alcohol or drug abuse patient.[facility] HospitalIn the event this information is protected by the Federal Confidentiality of Alcohol and Drug Abuse Patient Records regulations: The Federal rules restrict any use of the information to criminally investigate or prosecute any alcohol or drug abuse patient.[facility] HospitalIn the event this information is protected by the Federal Confidentiality of Alcohol and Drug Abuse Patient Records regulations: The Federal rules restrict any use of the information to criminally investigate or prosecute any alcohol or drug abuse patient.[facility] HospitalIn the event this information is protected by the Federal Confidentiality of Alcohol and Drug Abuse Patient Records regulations: The Federal rules restrict any use of the information to criminally investigate or prosecute any alcohol or drug abuse patient.[facility] HospitalIn the event this information is protected by the Federal Confidentiality of Alcohol and Drug Abuse Patient Records regulations: The Federal rules restrict any use of the information to criminally investigate or prosecute any alcohol or drug abuse patient.[facility] HospitalIn the event this information is protected by the Federal Confidentiality of Alcohol and Drug Abuse Patient Records regulations: The Federal rules restrict any use of the information to criminally investigate or prosecute any alcohol or drug abuse patient.[facility] HospitalIn the event this information is protected by the Federal Confidentiality of Alcohol and Drug Abuse Patient Records regulations: The Federal rules restrict any use of the information to criminally investigate or prosecute any alcohol or drug abuse patient.[facility] HospitalIn the event this information is protected by the Federal Confidentiality of Alcohol and Drug Abuse Patient Records regulations: The Federal rules restrict any use of the information to criminally investigate or prosecute any alcohol or drug abuse patient.[facility] HospitalIn the event this information is protected by the Federal Confidentiality of Alcohol and Drug Abuse Patient Records regulations: The Federal rules restrict any use of the information to criminally investigate or prosecute any alcohol or drug abuse patient.[facility]In the event this information is protected by the Federal Confidentiality of Alcohol and Drug Abuse Patient Records regulations: The Federal rules restrict any use of the information to criminally investigate or prosecute any alcohol or drug abuse patient.[facility] HospitalIn the event this information is protected by the Federal Confidentiality of Alcohol and Drug Abuse Patient Records regulations: The Federal rules restrict any use of the information to criminally investigate or prosecute any alcohol or drug abuse patient.[facility]In the event this information is protected by the Federal Confidentiality of Alcohol and Drug Abuse Patient Records regulations: The Federal rules restrict any use of the information to criminally investigate or prosecute any alcohol or drug abuse patient.[facility] HospitalIn the event this information is protected by the Federal Confidentiality of Alcohol and Drug Abuse Patient Records regulations: The Federal rules restrict any use of the information to criminally investigate or prosecute any alcohol or drug abuse patient.[facility] HospitalIn the event this information is protected by the Federal Confidentiality of Alcohol and Drug Abuse Patient Records regulations: The Federal rules restrict any use of the information to criminally investigate or prosecute any alcohol or drug abuse patient.[facility]In the event this information is protected by the Federal Confidentiality of Alcohol and Drug Abuse Patient Records regulations: The Federal rules restrict any use of the information to criminally investigate or prosecute any alcohol or drug abuse patient.[facility] HospitalIn the event this information is protected by the Federal Confidentiality of Alcohol and Drug Abuse Patient Records regulations: The Federal rules restrict any use of the information to criminally investigate or prosecute any alcohol or drug abuse patient.[facility] HospitalIn the event this information is protected by the Federal Confidentiality of Alcohol and Drug Abuse Patient Records regulations: The Federal rules restrict any use of the information to criminally investigate or prosecute any alcohol or drug abuse patient.[facility]In the event this information is protected by the Federal Confidentiality of Alcohol and Drug Abuse Patient Records regulations: The Federal rules restrict any use of the information to criminally investigate or prosecute any alcohol or drug abuse patient.[facility] HospitalIn the event this information is protected by the Federal Confidentiality of Alcohol and Drug Abuse Patient Records regulations: The Federal rules restrict any use of the information to criminally investigate or prosecute any alcohol or drug abuse patient.[facility] HospitalIn the event this information is protected by the Federal Confidentiality of Alcohol and Drug Abuse Patient Records regulations: The Federal rules restrict any use of the information to criminally investigate or prosecute any alcohol or drug abuse patient.[facility] HospitalIn the event this information is protected by the Federal Confidentiality of Alcohol and Drug Abuse Patient Records regulations: The Federal rules restrict any use of the information to criminally investigate or prosecute any alcohol or drug abuse patient.[facility] HospitalIn the event this information is protected by the Federal Confidentiality of Alcohol and Drug Abuse Patient Records regulations: The Federal rules restrict any use of the information to criminally investigate or prosecute any alcohol or drug abuse patient.[facility]In the event this information is protected by the Federal Confidentiality of Alcohol and Drug Abuse Patient Records regulations: The Federal rules restrict any use of the information to criminally investigate or prosecute any alcohol or drug abuse patient.[facility]In the event this information is protected by the Federal Confidentiality of Alcohol and Drug Abuse Patient Records regulations: The Federal rules restrict any use of the information to criminally investigate or prosecute any alcohol or drug abuse patient.[facility] HospitalIn the event this information is protected by the Federal Confidentiality of Alcohol and Drug Abuse Patient Records regulations: The Federal rules restrict any use of the information to criminally investigate or prosecute any alcohol or drug abuse patient.[facility] HospitalIn the event this information is protected by the Federal Confidentiality of Alcohol and Drug Abuse Patient Records regulations: The Federal rules restrict any use of the information to criminally investigate or prosecute any alcohol or drug abuse patient.[facility] HospitalIn the event this information is protected by the Federal Confidentiality of Alcohol and Drug Abuse Patient Records regulations: The Federal rules restrict any use of the information to criminally investigate or prosecute any alcohol or drug abuse patient.[facility] HospitalIn the event this information is protected by the Federal Confidentiality of Alcohol and Drug Abuse Patient Records regulations: The Federal rules restrict any use of the information to criminally investigate or prosecute any alcohol or drug abuse patient.[facility] HospitalIn the event this information is protected by the Federal Confidentiality of Alcohol and Drug Abuse Patient Records regulations: The Federal rules restrict any use of the information to criminally investigate or prosecute any alcohol or drug abuse patient.[facility] HospitalIn the event this information is protected by the Federal Confidentiality of Alcohol and Drug Abuse Patient Records regulations: The Federal rules restrict any use of the information to criminally investigate or prosecute any alcohol or drug abuse patient.[facility] HospitalIn the event this information is protected by the Federal Confidentiality of Alcohol and Drug Abuse Patient Records regulations: The Federal rules restrict any use of the information to criminally investigate or prosecute any alcohol or drug abuse patient.[facility] HospitalIn the event this information is protected by the Federal Confidentiality of Alcohol and Drug Abuse Patient Records regulations: The Federal rules restrict any use of the information to criminally investigate or prosecute any alcohol or drug abuse patient.[facility] HospitalIn the event this information is protected by the Federal Confidentiality of Alcohol and Drug Abuse Patient Records regulations: The Federal rules restrict any use of the information to criminally investigate or prosecute any alcohol or drug abuse patient.[facility] HospitalIn the event this information is protected by the Federal Confidentiality of Alcohol and Drug Abuse Patient Records regulations: The Federal rules restrict any use of the information to criminally investigate or prosecute any alcohol or drug abuse patient.[facility] HospitalIn the event this information is protected by the Federal Confidentiality of Alcohol and Drug Abuse Patient Records regulations: The Federal rules restrict any use of the information to criminally investigate or prosecute any alcohol or drug abuse patient.[facility] HospitalIn the event this information is protected by the Federal Confidentiality of Alcohol and Drug Abuse Patient Records regulations: The Federal rules restrict any use of the information to criminally investigate or prosecute any alcohol or drug abuse patient.[facility] HospitalIn the event this information is protected by the Federal Confidentiality of Alcohol and Drug Abuse Patient Records regulations: The Federal rules restrict any use of the information to criminally investigate or prosecute any alcohol or drug abuse patient.[facility] HospitalIn the event this information is protected by the Federal Confidentiality of Alcohol and Drug Abuse Patient Records regulations: The Federal rules restrict any use of the information to criminally investigate or prosecute any alcohol or drug abuse patient.[facility] HospitalIn the event this information is protected by the Federal Confidentiality of Alcohol and Drug Abuse Patient Records regulations: The Federal rules restrict any use of the information to criminally investigate or prosecute any alcohol or drug abuse patient.[facility] HospitalIn the event this information is protected by the Federal Confidentiality of Alcohol and Drug Abuse Patient Records regulations: The Federal rules restrict any use of the information to criminally investigate or prosecute any alcohol or drug abuse patient.[facility] HospitalIn the event this information is protected by the Federal Confidentiality of Alcohol and Drug Abuse Patient Records regulations: The Federal rules restrict any use of the information to criminally investigate or prosecute any alcohol or drug abuse patient.[facility] HospitalIn the event this information is protected by the Federal Confidentiality of Alcohol and Drug Abuse Patient Records regulations: The Federal rules restrict any use of the information to criminally investigate or prosecute any alcohol or drug abuse patient.[facility] HospitalIn the event this information is protected by the Federal Confidentiality of Alcohol and Drug Abuse Patient Records regulations: The Federal rules restrict any use of the information to criminally investigate or prosecute any alcohol or drug abuse patient.[facility] HospitalIn the event this information is protected by the Federal Confidentiality of Alcohol and Drug Abuse Patient Records regulations: The Federal rules restrict any use of the information to criminally investigate or prosecute any alcohol or drug abuse patient.[facility] HospitalIn the event this information is protected by the Federal Confidentiality of Alcohol and Drug Abuse Patient Records regulations: The Federal rules restrict any use of the information to criminally investigate or prosecute any alcohol or drug abuse patient.[facility] HospitalIn the event this information is protected by the Federal Confidentiality of Alcohol and Drug Abuse Patient Records regulations: The Federal rules restrict any use of the information to criminally investigate or prosecute any alcohol or drug abuse patient.[facility] HospitalIn the event this information is protected by the Federal Confidentiality of Alcohol and Drug Abuse Patient Records regulations: The Federal rules restrict any use of the information to criminally investigate or prosecute any alcohol or drug abuse patient.[facility] the event this information is protected by the Federal Confidentiality of Alcohol and Drug Abuse Patient Records regulations: The Federal rules restrict any use of the information to criminally investigate or prosecute any alcohol or drug abuse patient.[facility] HospitalIn the event this information is protected by the Federal Confidentiality of Alcohol and Drug Abuse Patient Records regulations: The Federal rules restrict any use of the information to criminally investigate or prosecute any alcohol or drug abuse patient.[facility] HospitalIn the event this information is protected by the Federal Confidentiality of Alcohol and Drug Abuse Patient Records regulations: The Federal rules restrict any use of the information to criminally investigate or prosecute any alcohol or drug abuse patient.[facility]In the event this information is protected by the Federal Confidentiality of Alcohol and Drug Abuse Patient Records regulations: The Federal rules restrict any use of the information to criminally investigate or prosecute any alcohol or drug abuse patient.[facility] Care Teams (unrecognized sec tion and content) Dermatopathologist Relationship Specialty Start Date End Date Jordan Johnson MD [address] [place] [address] PCP - General Family Practice 03/27/16 Dermatopathologist Relationship Specialty Start Date End Date Jordan Johnson MD [address] [place] [address] PCP - General Family Practice 03/27/16 Dermatopathologist Relationship Specialty Start Date End Date Jordan Johnson MD [address] [place] [address] PCP - General Family Practice 03/27/16 Dermatopathologist Relationship Specialty Start Date End Date Jordan Johnson MD [address] [place] [address] PCP - General Family Practice 03/27/16 Dermatopathologist Relationship Specialty Start Date End Date Jordan Johnson MD [address] [place] [address] PCP - General Family Practice 03/27/16 Dermatopathologist Relationship Specialty Start Date End Date Jordan Johnson MD [address] [place] [address] PCP - General Family Practice 03/27/16 Dermatopathologist Relationship Specialty Start Date End Date Jordan Johnson MD [address] [place] [address] PCP - General Family Practice 03/27/16 Dermatopathologist Relationship Specialty Start Date End Date Jordan Johnson MD [address] [place] [address] PCP - General Family Practice 03/27/16 Dermatopathologist Relationship Specialty Start Date End Date Jordan Johnson MD [address] [place] [address] PCP - General Family Practice 03/27/16 Dermatopathologist Relationship Specialty Start Date End Date Jordan Johnson MD [address] [place] [address] PCP - General Family Medicine 03/27/16 Dermatopathologist Relationship Specialty Start Date End Date Jordan Johnson MD [address] [place] [address] PCP - General Family Medicine 03/27/16 Dermatopathologist Relationship Specialty Start Date End Date Jordan Johnson MD [address] [place] [address] PCP - General Family Medicine 03/27/16 Dermatopathologist Relationship Specialty Start Date End Date Jordan Johnson MD [address] [place] [address] PCP - General Family Medicine 03/27/16 Dermatopathologist Relationship Specialty Start Date End Date Jordan Johnson MD [address] [place] [address] PCP - General Family Medicine 03/27/16 Dermatopathologist Relationship Specialty Start Date End Date Jordan Johnson MD [address] [place] [address] PCP - General Family Medicine 03/27/16 Dermatopathologist Relationship Specialty Start Date End Date Jordan Johnson MD [address] [place] [address] PCP - General Family Medicine 03/27/16 Dermatopathologist Relationship Specialty Start Date End Date Jordan Johnson MD [address] [place] [address] PCP - General Family Medicine 03/27/16 Dermatopathologist Relationship Specialty Start Date End Date Jordan Johnson MD [address] [place] [address] PCP - General Family Medicine 03/27/16 Dermatopathologist Relationship Specialty Start Date End Date Jordan Johnson MD [address] [place] [address] PCP - General Family Medicine 03/27/16 Dermatopathologist Relationship Specialty Start Date End Date Jordan Johnson MD [address] [place] [address] PCP - General Family Medicine 03/27/16 Dermatopathologist Relationship Specialty Start Date End Date Jordan Johnson MD [address] [place] [address] PCP - General Family Medicine 03/27/16 Dermatopathologist Relationship Specialty Start Date End Date Jordan Johnson MD [address] [place] [address] PCP - General Family Medicine 03/27/16 Dermatopathologist Relationship Specialty Start Date End Date Jordan Johnson MD [address] [place] [address] PCP - General Family Medicine 03/27/16 Dermatopathologist Relationship Specialty Start Date End Date Jordan Johnson MD [address] [place] [address] PCP - General Family Medicine 03/27/16 Team Status: Active Member Role Status Dates Dr. Jaime Johnson MD Family Provider Active Dr. Jaime Johnson MD Primary Care Provider Acti ve Team Status: Inactive Member Role Status Dates Dr. Jaime Johnson MD Primary Care Provider Acti ve Dr. Val Ponce MD Attending Provider, Referring Pro vider Active Dermatopathologist Relationship Specialty Start Date End Date Jordan Johnson MD [address] [place] [address] PCP - General Family Medicine 03/27/16 Dermatopathologist Relationship Specialty Start Date End Date Jordan Johnson MD [address] [place] [address] PCP - General Family Medicine 03/27/16 Dermatopathologist Relationship Specialty Start Date End Date Jordan Johnson MD [address] [place] [address] PCP - General Family Medicine 03/27/16 Dermatopathologist Relationship Specialty Start Date End Date Jordan Johnson MD [address] [place] [address] PCP - General Family Medicine 03/27/16 Dermatopathologist Relationship Specialty Start Date End Date Jordan Johnson MD [address] [place] [address] PCP - General Family Medicine 03/27/16 Dermatopathologist Relationship Specialty Start Date End Date Jordan Johnson MD [address] [place] [address] PCP - General Family Medicine 03/27/16 Team Status: Inactive Member Role Status Dates Dr. Jaime Johnson MD Primary Care Provider Acti ve Dr. Jt Ramsay DO Emergency Provider Active Dermatopathologist Relationship Specialty Start Date End Date Jordan Johnson MD [address] [place] [address] PCP - General Family Medicine 03/27/16 Dermatopathologist Relationship Specialty Start Date End Date Jordan Johnson MD [address] [place] [address] PCP - General Family Medicine 03/27/16 Dermatopathologist Relationship Specialty Start Date End Date Jordan Johnson MD [address] [place] [address] PCP - General Family Medicine 03/27/16 Dermatopathologist Relationship Specialty Start Date End Date Jordan Johnson MD [address] [place] [address] PCP - General Family Medicine 03/27/16 Maddi France DO [address] [facility] [place], [place] [id number] Referring Internal Medicine 12/31/22 Jordan Johnson MD [address] [place], [place] 306571 Home Care Provider Family Medicine 12/31/22 Dermatopathologist Relationship Specialty Start Date End Date Jordan Johnson MD [address] [place], [place] 400154 [phone] PCP - General Family Medicine 03/27/16 Maddi France DO [address] [place], [place] [id number] Referring Internal Medicine 12/31/22 Jordan Johnson MD [address] [place], [place] 884971 Home Care Provider Family Medicine 12/31/22 Dermatopathologist Relationship Specialty Start Date End Date Jordan Johnson MD [address] [place], [place] 992911 PCP - General Family Medicine 03/27/16 Maddi France DO [address] [facility] [place], [place] [id number] Referring Internal Medicine 12/31/22 Jordan Johnson MD [address] [place], [place] 083781 Home Care Provider Family Medicine 12/31/22 Team Status: Active Member Role Status Dates Dr. Jaime Johnson MD Primary Care Provider Acti ve Dr. Otoniel Ellis MD Emergency Provider Active Dr. Pastor Bazan MD Attending Provider Active Team Status: Active Member Role Status Dates Dr. Jaime Johnson MD Primary Care Provider Acti ve Dr. Otoniel Ellis MD Emergency Provider Active Dr. Pastor Bazan MD Admit Provider, Other Provider A ctive Dr. Moris Prasad MD Attending Provider, Other Provi lizandro Active Team Status: Active Member Role Status Dates Dr. Jaime Johnson MD Primary Care Provider Acti ve Dr. Anuj Tao MD Admit Provider, Other Provider A ctive Dr. Serenity Ozuna DO Attending Provider Act ricardo Team Status: Active Member Role Status Dates Dr. Jaime Johnson MD Primary Care Provider Acti ve Dr. Anuj Tao MD Admit Provider, Re ferring Provider, Other Provider Active Dr. Serenity Ozuna DO Attending Provider Act ricardo Team Status: Inactive Member Role Status Dates Dr. Jaime Johnson MD Primary Care Provider Acti ve Dr. Anuj Tao MD Admit Provider, At tending Provider, Referring Provider Active Team Status: Inactive Member Role Status Dates Dr. Jaime Johnson MD Primary Care Provider Acti ve Dr. Jt Ramsay DO Attending Provider, Emergency Provide r Active Team Status: Inactive Member Role Status Dates Dr. Jaime Johnson MD Primary Care Provider Acti ve Dr. Otoniel Ellis MD Emergency Provider Active Dr. Pastor Bazan MD Admit Provider, Other Provider A ctive Dr. Moris Prasad MD Attending Provider Active Dermatopathologist Relationship Specialty Start Date End Date Jordan Johnson MD [address] [place], [place] [address]27[address] PCP - General Family Medicine 03/27/16 Edy Garcias, RN [address] [place] [address] Primary Care Sharepoint Designer Developer Internal Medicine 12/29/22 12/29/22 Maddi France DO [address] [place], [place] [id number] Referring Internal Medicine 12/31/22 Jordan Johnson MD [address] [place], [place] [id number] Home Care Provider Family Medicine 12/31/22 Dermatopathologist Relationship Specialty Start Date End Date Jordan Johnson MD [address] [place], [place] 328171 PCP - General Family Medicine 03/27/16 Maddi France DO [address] [place], [place] [id number] Referring Internal Medicine 12/31/22 Jordan Johnson MD [address] [place], [place] [id number] Home Care Provider Family Medicine 12/31/22 Dermatopathologist Relationship Specialty Start Date End Date Jordan Johnson MD [address] [place], [place] 911001 PCP - General Family Medicine 03/27/16 Maddi France DO [address] [facility] [place], [place] [id number] Referring Internal Medicine 12/31/22 Jordan Johnson MD [address] [place], [place] 661901 Home Care Provider Family Medicine 12/31/22 Team Status: Active Member Role Status Dates Dr. Jaime Johnson MD Primary Care Provider Acti ve Dr. Tim Raymond MD Attending Provider, Referring Pro vider Active Team Status: Active Member Role Status Dates Dr. Jaime Johnson MD Primary Care Provider Acti ve Dr. Tim Raymond MD Attending Provider Active Dr. Anuj Tao MD Referring Provider Active Team Status: Active Member Role Status Dates Dr. Jaime Johnson MD Primary Care Provider Acti ve Dr. Evangelista Martinez MD Emergency Provider Active Dr. Isidra Rodriguez DO Attending Provider Active Team Status: Active Member Role Status Dates Dr. Jaime Johnson MD Primary Care Provider Acti ve Dr. Evangelista Martinez MD Emergency Provider Active Dr. Isidra Rodriguez DO Admit Provider, Attending Provide r Active Team Status: Active Member Role Status Dates Dr. Jaime Johnson MD Primary Care Provider Acti ve Pastor OSHEA Attending Provider Active Dermatopathologist Relationship Specialty Start Date End Date Jordan Johnson MD [address] [place], [place] 04[address]91 PCP - General Family Medicine 03/27/16 Maddi France DO [address] [facility] [place], [place] [id number] Referring Internal Medicine 12/31/22 Jordan Johnson MD [address] [place] [address] Home Care Provider Family Medicine 12/31/22 Team Status: Active Member Role Status Dates Dr. Jaime Johnson MD Primary Care Provider Acti ve Dr. Evangelista Martinez MD Emergency Provider Active Dr. Isidra Rodriguez , DO Admit Provider, Other Provider Ac tive Dr. Aletha Malcolm MD Other Provider Active Dr. Aden Carey , Attending Provider Active Team Status: Active Member Role Status Dates Dr. Jaime Johnson MD Primary Care Provider Acti ve Dr. Evangelista Martinez MD Emergency Provider Active Dr. Isidra Rodriguez , DO Admit Provider, Other Provider Ac tive Dr. Aletha Malcolm MD Attending Provider, Other Prov ider Active Team Status: Active Member Role Status Dates Dr. Jaime Johnson MD Primary Care Provider Acti ve Dr. Evangelista Martinez MD Emergency Provider Active Dr. Isidra Rodriguez , DO Admit Provider, Other Provider Ac tive Dr. Vic Cummings , DO Attending Provider, Other Pro vider Active Dr. Aletha Malcolm MD Other Provider Active Team Status: Active Member Role Status Dates Dr. Jaime Johnson MD Primary Care Provider Acti ve Dr. Evangelista Martinez MD Emergency Provider Active Dr. Isidra Rodriguez , DO Admit Provider, Other Provider Ac tive Dr. Vic Cummings , Other Provider Active Dr. Aletha Malcolm MD Other Provider Active Dr. Aden Carey , Attending Provider Active Team Status: Active Member Role Status Dates Dr. Jaime Johnson MD Primary Care Provider Acti ve Dr. Evangelista Martinez MD Emergency Provider Active Dr. Isidra Rodriguez , DO Admit Provider, Other Provider Ac tive Dr. Vic Cummings , DO Attending Provider Active Dr. Aletha Malcolm MD Other Provider Active Team Status: Inactive Member Role Status Dates Dr. Jaime Johnson MD Primary Care Provider Acti ve Pastor OSHEA Attending Provider Active Team Status: Inactive Member Role Status Dates Dr. Jaime Johnson MD Primary Care Provider Acti ve Dr. Evangelista Martinez MD Emergency Provider Active Dr. Isidra Rodriguez , DO Admit Provider, Other Provider Ac tive Dr. Vic Cummings , DO Attending Provider Active Dr. Aletha Malcolm MD Other Provider Active Dermatopathologist Relationship Specialty Start Date End Date Jordan Johnson MD [address] [place] [address] PCP - General Family Medicine 03/27/16 Maddi France DO [address] [place], [place] [id number] Referring Internal Medicine 12/31/22 Jordan Johnson MD [address] [place] [address] Home Care Provider Family Medicine 12/31/22 [place] [address] [place], [place] [id number] Catalyst Operator Chief 02/04/23 Dermatopathologist Relationship Specialty Start Date End Date Jordan Johnson MD [address] [place] [address] PCP - General Family Medicine 03/27/16 Maddi France DO [address] [place] [address] Referring Internal Medicine 12/31/22 Jordan Johnson MD [address] [place] [address] Home Care Provider Family Medicine 12/31/22 [place] [address] [place], [place] [id number] Catalyst Operator Chief 02/04/23 Dermatopathologist Relationship Specialty Start Date End Date Jordan Johnson MD [address] [place] [address] PCP - General Family Medicine 03/27/16 Maddi France DO [address] [place] [id number] Referring Internal Medicine 12/31/22 Jordan Johnson MD [address] [place] [address] Home Care Provider Family Medicine 12/31/22 [place] [address] [place], [place] [id number] Catalyst Operator Chief 02/04/23 Dermatopathologist Relationship Specialty Start Date End Date Jordan Johnson MD [address] [place] [address] PCP - General Family Medicine 03/27/16 Maddi France DO [address] [place] [address] Referring Internal Medicine 12/31/22 Jordan Johnson MD [address] [place] [address] Home Care Provider Family Medicine 12/31/22 [place] [address] [place], [place] [id number] Catalyst Operator Chief 02/04/23 Dermatopathologist Relationship Specialty Start Date End Date Jordan Johnson MD [address] [place] [address] PCP - General Family Medicine 03/27/16 Maddi France DO [address] [place] [address] Referring Internal Medicine 12/31/22 Jordan Johnson MD [address] [place] [address] Home Care Provider Family Medicine 12/31/22 Nathaly Spivey, KATARZYNA [address] [place], [place] [id number] Catalyst Operator Chief 02/04/23 Dermatopathologist Relationship Specialty Start Date End Date Jordan Johnson MD [address] [place], [place] 372024 [phone] PCP - General Family Medicine 03/27/16 Maddi France DO [address] [place] [address] Referring Internal Medicine 12/31/22 Jordan Johnson MD [address] [place], [place] 073887 [phone] Home Care Provider Family Medicine 12/31/22 [place] [address] [place] [address] Catalyst Operator Chief 02/04/23 Dermatopathologist Relationship Specialty Start Date End Date Jordan Johnson MD [address] [place], [place] 443311 [phone] PCP - General Family Medicine 03/27/16 Maddi France DO [address] [place], [place] [phone] Referring Internal Medicine 12/31/22 Jordan Johnson MD [address] [place], [place] 330970 [phone] Home Care Provider Family Medicine 12/31/22 [place] [address] [place], [place] [id number] Catalyst Operator Chief 02/04/23 Dermatopathologist Relationship Specialty Start Date End Date Jordan Johnson MD [address] [place] [address] PCP - General Family Medicine 03/27/16 Maddi France DO [address] [facility] [place], [place] [phone] Referring Internal Medicine 12/31/22 Jordan Johnson MD [address] [place] [address] Home Care Provider Family Medicine 12/31/22 [place] [address] [place] [address] Catalyst Operator Chief 02/04/23 Dermatopathologist Relationship Specialty Start Date End Date Jordan Johnson MD [address] [place] [address] PCP - General Family Medicine 03/27/16 Maddi France DO [address] [place] [address] Referring Internal Medicine 12/31/22 Jordan Johnson MD [address] [place] [address] Home Care Provider Family Medicine 12/31/22 [place] [address] [place] [address] Catalyst Operator Chief 02/04/23 Dermatopathologist Relationship Specialty Start Date End Date Jordan Johnson MD [address] [facility], [place] [address] [phone] PCP - General Family Medicine 03/27/16 Maddi France DO [address] [place], [place] [phone] Referring Internal Medicine 12/31/22 Jordan Johnson MD [address] [place] [address] Home Care Provider Family Medicine 12/31/22 Nathaly Spivey, KATARZYNA [address] [place], [place] [phone] Catalyst Operator Chief 02/04/23 Dermatopathologist Relationship Specialty Start Date End Date Jordan Johnson MD [address] [place] [address] PCP - General Family Medicine 03/27/16 Maddi France DO [address] [place] [address] Referring Internal Medicine 12/31/22 Jordan Johnson MD [address] [place] [address] Home Care Provider Family Medicine 12/31/22 [place] [address] [place] [address] Catalyst Operator Chief 02/04/23 Dermatopathologist Relationship Specialty Start Date End Date Jordan Johnson MD [address] [place] [address] PCP - General Family Medicine 03/27/16 Maddi France DO [address] [facility] [place], [place] [id number] Referring Internal Medicine 12/31/22 Jordan Johnson MD [address] [place], [place] [id number] [phone] Home Care Provider Family Medicine 12/31/22 Nathaly Spivey, KATARZYNA [address] [place], [place] [id number] Catalyst Operator Chief 02/04/23 Dermatopathologist Relationship Specialty Start Date End Date Jordan Johnson MD [address] [place], [place] [id number] PCP - General Family Medicine 03/27/16 Maddi France DO [address] [place] [address] Referring Internal Medicine 12/31/22 Jordan Johnson MD [address] [place] [address] Home Care Provider Family Medicine 12/31/22 [place] [address] [place], [place] [id number] Catalyst Operator Chief 02/04/23 Dermatopathologist Relationship Specialty Start Date End Date Jordan Johnson MD [address] [place] [address] PCP - General Family Medicine 03/27/16 Maddi France DO [address] [place], [place] [phone] Referring Internal Medicine 12/31/22 Jordan Johnson MD [address] [place] [address] Home Care Provider Family Medicine 12/31/22 Dermatopathologist Relationship Specialty Start Date End Date Jordan Johnson MD [address] [place] [address] PCP - General Family Medicine 03/27/16 Maddi France DO [address] [place], [place] [phone] Referring Internal Medicine 12/31/22 Jordan Johnson MD [address] [place] [address] Home Care Provider Family Medicine 12/31/22 Dermatopathologist Relationship Specialty Start Date End Date Jordan Johnson MD [address] [place] [address] PCP - General Family Medicine 03/27/16 Dermatopathologist Relationship Specialty Start Date End Date Jordan Johnson MD [address] [place] [address] PCP - General Family Medicine 03/27/16 Dermatopathologist Relationship Specialty Start Date End Date Jordan Johnson MD [address] [place] [address] PCP - General Family Medicine 03/27/16 Maddi France DO [address] [place], [place] [phone] Referring Internal Medicine 12/31/22 Jordan Johnson MD [address] [place] [address] Home Care Provider Family Medicine 12/31/22 Dermatopathologist Relationship Specialty Start Date End Date Jordan Johnson MD [address] [place] [address] PCP - General Family Medicine 03/27/16 Maddi France DO [address] [place], [place] [phone] Referring Internal Medicine 12/31/22 Jordan Johnson MD [address] [place] [address] Home Care Provider Family Medicine 12/31/22 Dermatopathologist Relationship Specialty Start Date End Date Jordan Johnson MD [address] [place] [address] PCP - General Family Medicine 03/27/16 Maddi France DO [address] [place], [place] [phone] Referring Internal Medicine 12/31/22 Jordan Johnson MD [address] [place] [address] Home Care Provider Family Medicine 12/31/22 Dermatopathologist Relationship Specialty Start Date End Date Jordan Johnson MD [address] [place] [address] PCP - General Family Medicine 03/27/16 Maddi France DO [address] [place] [address] Referring Internal Medicine 12/31/22 Jordan Johnson MD [address] [place], [place] [address] Home Care Provider Family Medicine 12/31/22 Team Status: Active Member Role Status Dates Dr. Jaime Johnson MD Primary Care Provider Acti ve Dr. Evangelista Martinez MD Emergency Provider Active Dr. Isidra Rodriguez , DO Admit Provider, Other Provider Ac tive Dr. Aletha Malcolm MD Other Provider Active Dr. Aden Carey , DO Attending Provider Active Dr. Vic Cummings , DO Referring Provider Active Team Status: Active Member Role Status Dates Dr. Jaime Johnson MD Primary Care Provider Acti ve Dr. Evangelista Martinez MD Emergency Provider Active Dr. Isidra Rodriguez , DO Admit Provider, Other Provider Ac tive Dr. Vic Cummings , DO Referring Provider, Other Pro vider Active Dr. Aletha Malcolm MD Other Provider Active Dr. Aden Carey , Attending Provider Active Team Status: Active Member Role Status Dates Dr. Jaime Johnson MD Primary Care Provider Acti ve Dr. Kev Vargas , Emergency Provider Active Dr. Wilder Devlin MD Admit Provider, Other Provide r Active Dr. Sagar Ng , DO Attending Provider, Other Provid er Active Team Status: Active Member Role Status Dates Dr. Jaime Johnson MD Primary Care Provider Acti ve Lea Shore RN Attending Provider Active Team Status: Inactive Member Role Status Dates Dr. Jaime Johnson MD Primary Care Provider Acti ve Dr. Kev Vargas , Emergency Provider Active Dr. Wilder Devlin MD Admit Provider, Other Provide r Active Dr. Sagar Ng , Attending Provider Active Team Status: Inactive Member Role Status Dates Dr. Jaime Johnson MD Primary Care Provider Acti ve Dr. Connor Augustin , Emergency Provider Active Dermatopathologist Relationship Specialty Start Date End Date Jordan Johnson MD [address] [place] [address] PCP - General Family Medicine 03/27/16 Maddi France DO [address] [place] [address] Referring Internal Medicine 12/31/22 Jordan Johnson MD [address] [place] [address] Home Care Provider Family Medicine 12/31/22 Podlogar, Fabby, INTEGRATED CIRCUIT DESIGN ENGINEER.TRIMMING CUTTER MACHINE [address] [place] [address] Boring Machine Set Up Operator Jig Family Medicine 05/13/24 Dermatopathologist Relationship Specialty Start Date End Date Jordan Johnson MD [address] [place] [address] PCP - General Family Medicine 03/27/16 Maddi rFance DO [address] [place] [address] Referring Internal Medicine 12/31/22 Jordan Johnson MD [address] [place] [address] Home Care Provider Family Medicine 12/31/22 Podlogar, Fabby, INTEGRATED CIRCUIT DESIGN ENGINEER.TRIMMING CUTTER MACHINE [address] [place] [address] Boring Machine Set Up Operator Jig Family Medicine 05/13/24 Dermatopathologist Relationship Specialty Start Date End Date Jordan Johnson MD [address] [place] [address] PCP - General Family Medicine 03/27/16 Maddi France DO [address] [place], [place] [phone] Referring Internal Medicine 12/31/22 Jordan Johnson MD [address] [place], [place] [address] Home Care Provider Family Medicine 12/31/22 PodlogarFabby APRN.TRIMMING CUTTER MACHINE [address] [facility], [place] [address] Boring Machine Set Up Operator Jig Family Medicine 05/13/24 Dermatopathologist Relationship Specialty Start Date End Date Jordan Johnson MD [address] [place], [place] [address] PCP - General Family Medicine 03/27/16 Maddi France DO [address] [place] [address] Referring Internal Medicine 12/31/22 Jordan Johnson MD [address] [place], [place] [address] Home Care Provider Family Medicine 12/31/22 PodlogarFabby, KELLY.TRIMMING CUTTER MACHINE [address] [place] [address] Boring Machine Set Up Operator Jig Family Medicine 05/13/24 Reason for Visit (unrecogniz ed section and [...] EA 15 MIN. Jordan Johnson MD [address] [place] [address] [facility] [address] [place] [address] Referral ID Status Reason Start Date Expiration Date Visits Requested Visits Authorized [id number] Authorized PCP Requested Referral Auto-Generate d Referral [...] Hospital discharge 12/28/22 Reason Comments Fill out [facility] POC Forms Reason Comments Medication Review Reason Comments Nausea Unable to eat and dr ink x3 days Reason Onset Date Comments Community Monitoring Outreach 02/03/2023 En rollment CDM Reason Comments Hospital Follow Up Discharged [facility] Gastric Ulcer & polyp Reason Onset Date Comments Transition Of Care 02/09/2023 Discharged fr om [facility] 02/06/23 Reason Comments Appointment Reason Comments Transition Of Care Reason Onset Date Comments CDM 03/04/2023 Escalation follo w up Reason Onset Date Comments [facility] 03/03/2023 Telephonic Outre ach Reason Onset Date Comments community monitoring outreach 03/18/2023 CD M outreach Reason Comments Anxiety Reason Comments Follow Up 1 month follow up Reason Comments Medication Problem Reason Onset Date Comments [facility] 04/19/2023 Check in call Reason Onset Date Comments [facility] 05/06/2023 Check in call Reason Comments Follow Up 3 month Reason Onset Date Comments [facility] 07/30/2023 Check in call Reason Onset Date Comments [facility] 08/30/2023 Check in call Reason Onset Date Comments [facility] 09/27/2023 Check in call Reason Comments Orders Reason Comments F/U 3 Month MMSE Needs letter complet ed Reason Onset Date Comments [facility] 11/02/2023 Check in call Reason Onset Date Comments [facility] 11/18/2023 Check in call Reason Onset Date Comments [facility] 12/17/2023 Check in call Reason Onset Date Comments [facility] 01/20/2024 Check in call Reason Onset Date Comments Community Monitoring Outreach 01/24/2024 Fo llow up Reason Onset Date Comments [facility] 02/22/2024 Check in call Reason Comments Patient Update Reason Comments Follow Up 6 month Reason Comments F/U 6 months Moving into [facility] November 05 Reason Onset Date Comments Population Health Navigation Outreach 11/03/2024 AWV- DASHBOARD- HUMANA Reason Onset Date Comments Results 11/06/2024 Goals (unrecognized section and content) Goals may be documented in a n alternate sectionGoals may be documented in an alternate sectionGoals may be documented in an alternate sectionGoals may be documented in an alternate section (unrecognized sect ion and content) No Status Records FoundNo Status Records FoundNo Status Records Found INFORMATION SOURCE (unrecogn ized section and content) DATE CREATED AUTHOR 01/16/2023 [facility] DATE CREATED AUTHOR AUTHOR'S ORGANIZ ATION 05/04/2024 [facility] DATE CREATED AUTHOR AUTHOR'S ORGANIZ ATION 11/05/2024 [facility] FOR RECORDS PERTAINING TO PATIENTS WHO [...] BE BASED ON THE PRIMARY CLINICAL RECORDS. [facility] [employer] [facility]. provides no warranty or guarantee of the accuracy or completeness of information in this document.
--- NOTE | 2025-02-04 13:30 | RAD_ITS ---
PROCEDURE: HIP, UNI W/ PELVIS 2-3 VIEWS 02/04/2025 REASON FOR EXAM: PAIN TECHNIQUE: Procedure Code: [facility] Modality: DX Procedure: HIP, UNI W/ PELVIS 2-3 VIEWS Laterality: FINDINGS: Bones: There is no evidence of fracture or dislocation in the pelvic bones, left hip. Degenerative changes in the visualized lumbosacral junction. Joints: Degenerative changes in the bilateral hip joints, sacroiliac joints, and at pubic symphysis. Soft tissues: Phleboliths and arterial vascular calcifications. Other: There is no radiopaque foreign body. Nonobstructive bowel gas pattern. RAD/HIP, UNI W/ Pelvis 2-3 Views IMPRESSION: DEGENERATIVE OSTEOARTHROSIS. NO ACUTE FINDINGS. Reading Location: [id number]
--- NOTE | 2025-02-04 13:40 | CT_ITS ---
PROCEDURE: CT SPINE THORACIC; SPINE LUMBAR WITHOUT CONTRAST 02/04/2025 REASON FOR EXAM: BACK PAIN TECHNIQUE: Procedure Code: CTSPTH; CTSPL Modality: CT Procedure: SPINE THORACIC WITHOUT CONTRAST; SPINE LUMBAR WITHOUT CONTRAST Coronal and Sagittal reconstruction series were provided. One or more dose reduction techniques were used (e.g., Automated exposure control, adjustment of the mA and/or kV according to patient size, use of iterative reconstruction technique). RADIATION DOSE SUMMARY: DLP: 1731.79 mGycm COMPARISON: Correlation with abdominal CT 05/21/2023. FINDINGS: Note transitional anatomy at the lumbosacral junction with a lumbarized S1 segment with rudimentary disc space, resulting in 6 [id number] lumbar-type vertebrae. No evidence of acute fracture or subluxation. Vertebral body heights are preserved. Posterior margins of the vertebral segments are aligned, although there is mild dextroscoliosis of the lumbar spine. Moderate multilevel spondylotic changes with varying degrees of disc space narrowing, endplate sclerosis, vacuum disc phenomena, anterior endplate osteophytosis, and hypertrophic facet arthropathy. Dorsal disc bulging at multiple levels in the lumbar spine resulting in multilevel mild-moderate spinal canal narrowing, and mild-moderate neural foraminal stenoses, which appear advanced on the right at L4-5 and L5-S1. No significant abnormality within the imaged paravertebral soft tissues. Moderate aortoiliac atherosclerotic vascular calcifications. CT/Spine Lumbar without Contrast IMPRESSION: No acute thoracolumbar spine fracture or subluxation. Moderate multilevel spon dylotic changes as described above, and mild lumbar dextroscoliosis. Reading Location: [id number]
--- NOTE | 2025-02-04 13:40 | CT_ITS ---
PROCEDURE: CT SPINE THORACIC; SPINE LUMBAR WITHOUT CONTRAST 02/04/2025 REASON FOR EXAM: BACK PAIN TECHNIQUE: Procedure Code: CTSPTH; CTSPL Modality: CT Procedure: SPINE THORACIC WITHOUT CONTRAST; SPINE LUMBAR WITHOUT CONTRAST Coronal and Sagittal reconstruction series were provided. One or more dose reduction techniques were used (e.g., Automated exposure control, adjustment of the mA and/or kV according to patient size, use of iterative reconstruction technique). RADIATION DOSE SUMMARY: DLP: 1731.79 mGycm COMPARISON: Correlation with abdominal CT 05/21/2023. FINDINGS: Note transitional anatomy at the lumbosacral junction with a lumbarized S1 segment with rudimentary disc space, resulting in 6 [id number] lumbar-type vertebrae. No evidence of acute fracture or subluxation. Vertebral body heights are preserved. Posterior margins of the vertebral segments are aligned, although there is mild dextroscoliosis of the lumbar spine. Moderate multilevel spondylotic changes with varying degrees of disc space narrowing, endplate sclerosis, vacuum disc phenomena, anterior endplate osteophytosis, and hypertrophic facet arthropathy. Dorsal disc bulging at multiple levels in the lumbar spine resulting in multilevel mild-moderate spinal canal narrowing, and mild-moderate neural foraminal stenoses, which appear advanced on the right at L4-5 and L5-S1. No significant abnormality within the imaged paravertebral soft tissues. Moderate aortoiliac atherosclerotic vascular calcifications. CT/Spine Thoracic without Contras IMPRESSION: No acute thoracolumbar spine fracture or subluxation. Moderate multilevel spon dylotic changes as described above, and mild lumbar dextroscoliosis. Reading Location: [id number]
[2025-02-04 14:00] VITALS: BP 145/71; O2SAT 98
[2025-02-04 14:31] VITALS: BP 145/71; PULSE 51; RESP 18; TEMP 36.6; O2SAT 100
== END 2025-02-04 15:22 | disposition home or self-care (01) ==
PROVIDERS: Emergency Provider Emergency Medicine; PCP Family Medicine; Visit Provider Emergency Medicine
DX: S70.02XA Contusion of left hip, initial encounter (principal); F03.90 Unspecified dementia, unspecified severity, without behavioral disturbance, psychotic disturbance, mood disturbance, and anxiety; N18.31 Chronic kidney disease, stage 3a; Z87.891 Personal history of nicotine dependence; N40.0 Benign prostatic hyperplasia without lower urinary tract symptoms; Z79.899 Other long term (current) drug therapy; K21.9 Gastro-esophageal reflux disease without esophagitis; Z90.49 Acquired absence of other specified parts of digestive tract; W18.30XA Fall on same level, unspecified, initial encounter; I12.9 Hypertensive chronic kidney disease with stage 1 through stage 4 chronic kidney disease, or unspecified chronic kidney disease
CPT/HCPCS: 72128; 72131; 73502; 99284